=== PATIENT | female | born 1990 | race Caucasian/White ===

== ENCOUNTER 2023-03-04 10:47 | Outpatient (OUT) | payer MEDICAID, SELFPAY ==
--- NOTE | 2023-03-04 11:40 | XR_ITS ---
[address] [address] Patient Name: NITHYA SARKAR MRN: [id number] date: 1990 Sex: F Assigned Patient Location: [facility] Current Patient Location: [facility] Accession/Order Number: [id number] Exam Date: 03/04/2023 12:02 Report Date: 03/04/2023 12:18 At the request of: LIS HAY Procedure: XR chest 2V EXAM: XR chest 2V HISTORY: E CIG USE COMPARISON: 07/28/2021 TECHNIQUE: Upright PA and lateral chest x-ray FINDINGS: The heart is not enlarged and the vasculature is not distended. No acute infiltrate, effusion or pneumothorax is identified. The osseous structures are grossly intact. IMPRESSION: No acute infiltrate or evidence of cardiac decompensation. The overall appearance of the chest is essentially unchanged. Electronically authenticated by: DAGO SILVA Date: 03/04/2023 12:18
--- NOTE | 2023-03-04 11:47 | ECG_ITS ---
[facility] Test Date: 2023-03-04 Pat Name: NITHYA SARKAR Department: Room: - Gender: Female [employer]: : 1990 Requested By: LIS HAY Order Number: [id number] Reading MD: VIDAL CASE Measurements Intervals Albert Rate: 75 P: 39 FL: 132 QRS: 2 QRSD: 100 T: 13 QT: 372 QTc: 417 Interpretive Statements SINUS RHYTHM LOW QRS VOLTAGE IN PRECORDIAL LEADS [QRS DEFLECTION < 1.0 mV IN CHEST LEADS] No previous ECG available for comparison Electronically Signed On 03-05-2023 7:01:26 EDT by VIDAL CASE
== END 2023-03-04 10:48 | disposition home or self-care (01) ==
LOC: PST 10:47
PROVIDERS: PCP Family Medicine; Visit Provider Obstetrics & Gynecology
DX: Z01.810 Encounter for preprocedural cardiovascular examination (principal); Z01.811 Encounter for preprocedural respiratory examination; Z30.2 Encounter for sterilization; N92.1 Excessive and frequent menstruation with irregular cycle; N93.9 Abnormal uterine and vaginal bleeding, unspecified; R10.2 Pelvic and perineal pain; F17.290 Nicotine dependence, other tobacco product, uncomplicated
CPT/HCPCS: 71046; 93005

== ENCOUNTER 2023-03-12 09:39 | Day surgery (SDC) | payer MEDICAID, SELFPAY ==
[2023-03-04 11:11] VITALS: PULSE 91; TEMP 36.4; O2SAT 99; BMI 52.7
[2023-03-12] VITALS (10 sets, daily range): BP systolic 108–136; BP diastolic 67–81; PULSE 75–94; RESP 15–22; TEMP 36.1; O2SAT 97–100; BMI 52.3
[2023-03-12 10:24] LABS: Basophils Percent Auto 0.6 % (0.2-2.0); Eosinophils Absolute Auto 0.1 10^3/uL (0.0-0.7); Eosinophils Percent Auto 1.1 % (0.9-7.0); Hematocrit 49.1 % (36.0-48.0); Hemoglobin 16.1 g/dL (12.0-16.0); Immature Granulocytes Abs Auto 0.01 10^3/uL (0.00-0.03); Immature Granulocytes Pct Auto 0.2 % (0.0-0.5); Lymphocytes Absolute Auto 1.8 10^3/uL (1.2-3.8); Lymphocytes Percent Auto 37.3 % (20.5-60.0); Mean Corpuscular HGB Conc 32.8 g/dL (29.9-35.2); Mean Corpuscular Hemoglobin 31.3 pg (26.7-34.0); Mean Corpuscular Volume 95.5 fL (81.0-99.0); Mean Platelet Volume 10.5 fL (9.5-13.5); Monocytes Absolute Auto 0.4 10^3/uL (0.3-0.8); Neutrophils Absolute Auto 2.5 10^3/uL (1.4-6.5); Neutrophils Percent Auto 52.8 % (43.0-75.0); Platelet Count 152 10^3/uL (150-450); Red Blood Count 5.14 10^6/uL (4.20-5.40); Red Cell Distribution Width 12.6 % (11.0-15.0); White Blood Count 4.8 10^3/uL (4.0-11.0)
[2023-03-12] MEDS: LACTATED RINGER'S SOLUTION 1,000 ML 50 ML IV (10:30)
[2023-03-12 10:33] LABS: HCG Quantitative <1 mIU/mL
--- NOTE | 2023-03-12 13:10 | PM.ONB ---
Brief Operative Note Date of procedure: 03/12/23 Pre-op diagnosis: menorrhagia, dysmenorrhea, desires permanent sterilization Post-op diagnosis: same Procedure: PROCEDURE: Laparoscopic bilateral salpingectomy with Hilary endometrial ablation with hysteroscopy PROCEDURE: The patient was taken back to the OR where she was prepped and draped in the normal sterile fashion after being placed in the dorsal lithotomy position, after being placed under general anesthesia without difficulty. a weighted speculum was then placed into the vagina. The anterior lip was grasped with a single tooth tenaculum. The patient was then sounded to approximatley 9cm. The patient was gently sounded using Hegar dilators and the hysteroscope was passed through the cervix into the uterus where both ostia were seen. No gross evidence of polyps, fibroids or malignancy. The cervical length was noted to be 4cm. The Hilary ablation apparatus was set to approximately 5cm in length. This was placed in through the cervix and into the uterus. After the seal was tested, at that time the total ablation of 120 seconds was performed with the Hilary without difficulty. All instruments were removed from the vagina. A wet sponge stick was placed into the patient's vagina. Attention was then turned to the patient's abdomen, where a scalpel was used to make a small infraumbilical incision. The S retractors were then used to dissect the underlying layers until the fascia could be seen. The fascia was then grasped with Aubrie clamps and tented up. A knife was then used to make a small incision to the fascia. The muscle was identified, at that time two sutures of #0 Vicryl on a GI needlewas then used and placed through the fascia. The peritoneum was then identified and entered bluntly. The 10-4 Roseanne was then placed into the patient's abdomen. This was confirmed with direct visualization of the bowel, using the laparoscope. The patient's abdomen was then insufflated using approximately 4 liters of CO2 gas. Survey of the patient's abdomen demonstrated normal appearing ovaries, uterus and tubes. A second and third lateral ports, which was 7-8 in size and 5mm in size, was then placed laterally after incision was made in the skin under direct visualization. The patient's tube on the patient's right side was identified. The tube was then tented up using a grasper. The ligasure was used to transect and coagulate the mesosalpingx from the fibriated end to the insertion at the uterus, the tube was amputated and removed in its entirety.? Excellent hemostasis was noted. ?This was performed on the contralateral sideas well. The lateral ports were then moved under direct visualization withexcellent hemostasis. The abdomen was deinsufflated. All instruments were removed from the patient's abdomen. The fascia was closed using the #0 Vicryl on GI needle. The skin was closed using 4-0 Vicryl subcuticularly. All instruments were removed from the patient's vagina as well. The patient was taken out of the dorsal lithotomy position and placed in the supine position and taken to recovery in stable condition. Sponge, lap and needle counts were correct x2. ???please note embx was performed prior to ablation Anesthesia: ABNER Surgeon: Chay Castro [employer] Dealer: Helga Fang Estimated blood loss (mL): 5 Pathology: other (bilateral tubes) Condition: stable Disposition: PACU
[2023-03-12] MEDS: HYDROCODONE/ACETAMINOPHEN 5-325 MG TABLET 1 TAB PO (14:18)
[2023-03-12] MEDS: PROMETHAZINE HCL 25 MG/ML VIAL 12.5 MG IV (14:19)
--- NOTE | 2023-03-12 15:03 | PC.NURSE ---
REASSESED PAIN AFTER PAIN MEDICATION GIVEN CURRENTLY RATING PAIN A 4.
== END 2023-03-12 15:11 | disposition home or self-care (01) ==
PROVIDERS: PCP Family Medicine; Visit Provider Obstetrics & Gynecology
PROC: (CPT 840; principal; 2023-03-12 10:55)
PROC: (CPT 840; 2023-03-12 10:55)
DX: Z30.2 Encounter for sterilization (principal); N92.0 Excessive and frequent menstruation with regular cycle; N94.6 Dysmenorrhea, unspecified; N83.8 Other noninflammatory disorders of ovary, fallopian tube and broad ligament; E03.9 Hypothyroidism, unspecified; K21.9 Gastro-esophageal reflux disease without esophagitis; E66.01 Morbid (severe) obesity due to excess calories; Z68.42 Body mass index [BMI] 45.0-49.9, adult; F17.210 Nicotine dependence, cigarettes, uncomplicated
CPT/HCPCS: 58563; 58661; 36415; 84702; 85025; 88304; 88305; J2704

== ENCOUNTER 2023-06-25 12:37 | Outpatient (OUT) | payer MEDICAID, SELFPAY ==
--- NOTE | 2023-06-25 13:04 | P.CN_ITS ---
Consult Note: HPI Data of Consult Patient: known to practice within the last 3 years Requesting Physician: Suellen Armijo NP Primary Care Provider: Tez Zaragoza MD Consult Narrative Reason for consult: F/u Narrative: Azul Huertas a pleasant 32 year old female presents for evaluation and management of right leg pain. Describes it as pins/needles/throbbing. Intermittently swells and has sensitivity to touch, clothes are very irritating. Has noticed this pain developed after foot surgery. cc:: CC: Suellen Armijo NP Review of Systems ROS Status of ROS 10 or more systems reviewed and unremarkable except as noted in history and below Musculoskeletal Reports: back pain and extremity pain PFSH PFS Medical History Activity intolerance ?R68.89 - Other general symptoms and signs (ICD-10) Back pain ?M54.9 - Dorsalgia, unspecified (ICD-10) Constipation ?K59.00 - Constipation, unspecified (ICD-10) CRPS (complex regional pain syndrome), lower limb (2019) ?G90.529 - Complex regional pain syndrome I of unspecified lower limb (ICD- 10) Delayed recovery from anesthesia Dyspnea on exertion ?R06.09 - Other forms of dyspnea (ICD-10) Electronic cigarette use ?Z78.9 - Other specified health status (ICD-10) GERD (gastroesophageal reflux disease) ?K21.9 - Gastro-esophageal reflux disease without esophagitis (ICD-10) Hypothyroidism ?E03.9 - Hypothyroidism, unspecified (ICD-10) Migraine ?G43.909 - Migraine, unspecified, not intractable, without status migrainosus (ICD-10) Neuropathy ?G62.9 - Polyneuropathy, unspecified (ICD-10) PCOS (polycystic ovarian syndrome) ?E28.2 - Polycystic ovarian syndrome (ICD-10) Postoperative nausea and vomiting ?R11.2 - Nausea with vomiting, unspecified (ICD-10) ?Z98.890 - Other specified postprocedural states (ICD-10) Sleep apnea ?G47.30 - Sleep apnea, unspecified (ICD-10) Vertigo ?R42 - Dizziness and giddiness (ICD-10) Surgical History H/O LEEP ?Z98.890 - Other specified postprocedural states (ICD-10) History of esophagogastroduodenoscopy (EGD) ?Z98.890 - Other specified postprocedural states (ICD-10) History of foot surgery (2019) ?Z98.890 - Other specified postprocedural states (ICD-10) Family History Other Family history of COPD (chronic obstructive pulmonary disease) Family history of DVT Family history of diabetes mellitus Family history of heart disease Family history of hypertension Family history of myocardial infarction Family history of pulmonary embolism Family history of stroke Rectal adenocarcinoma Social History Within the past year, how often did you have a drink containing alcohol: never Score interpretation: A score less than 3 is consistent with normal alcohol c onsumption. Smoking status: Former smoker Do you use any of these nicotine containing products: vaping products Nicotine containing products detail: vaped for 4 years every day but quit 2020. Non-prescribed substance use: denies use Previous occupational history: unemployed Highest level of school completed/degree received: high school graduate Meds Home Medications and Allergies Home Medications Medication Instructions Recorded Confirmed Type Formula-DHA 03/04/23 History bupropion HCl 150 mg 24 hr tablet, 150 mg PO .qd 03/04/23 03/04/23 History extended release bupropion HCl 300 mg 24 hr tablet, 300 mg PO QDAY 03/04/23 03/04/23 History extended release calcium PO DAILY 03/04/23 History cholecalciferol (vitamin D3) 50 50 mcg PO QDAY 03/04/23 03/04/23 History mcg (2,000 unit) tablet chromium 03/04/23 History etonogestrel 68 mg subdermal subdermal 03/04/23 History implant (Nexplanon) hydroxyzine HCl 25 mg tablet 50 mg PO Q6H PRN nausea and 03/04/23 03/04/23 History vomiting levothyroxine 100 mcg tablet 100 mcg PO QDAY 03/04/23 03/04/23 History meclizine 25 mg tablet 25 mg PO QID PRN motion sickness 03/04/23 03/04/23 History megestrol 20 mg tablet 20 mg PO .COMPLEX 03/04/23 03/04/23 History ondansetron 4 mg disintegrating 4 mg PO Q6H PRN nausea and vomiting 03/04/23 03/04/23 History tablet pantoprazole 40 mg tablet,delayed 40 mg PO QDAY 03/04/23 03/04/23 History release potassium chloride 20 mEq 20 meq PO QDAY PRN unknown 03/04/23 03/04/23 History tablet,extended release sumatriptan succinate 25 mg tablet 25 mg PO Q2H PRN migraine headache 03/04/23 03/04/23 History topiramate 25 mg tablet 25 mg PO Q12H 03/04/23 03/04/23 History tramadol 50 mg tablet 50 mg PO QDAY PRN pain 03/04/23 03/04/23 History hydrocodone 5 mg-acetaminophen 325 1 tab PO Q4H PRN pain 4 days #16 03/12/23 Rx mg tablet tabs ibuprofen 800 mg tablet 800 mg PO Q8H PRN pain 14 days #40 03/12/23 Rx tabs Allergies Allergy/AdvReac Type Severity Reaction Status Date / Time povidone-iodine AdvReac Severe Rash Verified 03/04/23 11:08 [From [employer] Povidone Iodine] vicadon Allergy Severe Nausea Uncoded 03/04/23 11:08 Exam Constitutional Documenting provider has reviewed patient's vital signs: yes Common normals: no apparent distress, oriented x3, healthy appearing, alert and well nourished General appearance: cooperative [facility] Common normals: normocephalic, hearing grossly normal bilaterally and moist oral mucous membranes Head and scalp: normocephalic Eye Common normals: PERRL Pupil: PERRL Neck & C-Spine Common normals: full ROM General: normal visual inspection Chest Common normals: inspection of chest normal Respiratory Common normals: normal respiratory effort, no retractions and no use of acc essory muscles Back & Pelvis Lumbar spine/lower back: pain with ROM Other: bilateral facet loading pain over L3-S1 Extremity Other: edema to RLE, decreased sensation, hyperalgesia, reddened appearance, chronic neuropathy. Neuro Common normals: oriented x3, CN's II-XII intact bilaterally, moves all extremities, no focal motor deficits, no sensory deficits noted and deep tendon reflexes 2+ bilaterally Sensorium/orientation: alert Motor exam: strength 5/5 throughout and no movement abnormalities noted Psych Common normals: mental status grossly normal, thought process normal, cooperative, affect normal, speech normal and activity/motor behavior normal Speech: normal speech Thought process: normal thought process Results Additional Findings Additional findings: I have checked an OARRS report on this patient today and there are no aberrancies noted in the prescribing history.?? A drug screen was completed and reviewed within the last year, and if there has not been a drug screen completed we ordered one today to monitor higher risk, state monitored pain medication use. As part of providing excellent, safe, comprehensive care, the following was completed at our patient's visit: 1. A medication reconciliation and review to ensure accurate knowledge of current/active medications, including asking our patients to inform us about any [id number] medications or herbal remedies/nutritional supplements/alternative remedies. 2. A review to specifically ensure our patients have had annual screening for: elevated body mass index (BMI), tobacco use, screening for depression, and screening for unhealthy alcohol use. When screening is concerning, patients are provided with education and the specific recommendation to discuss the concerning health issue and treatment options with their primary care provider. Assessment and Plan Assessment and Plan (1) Complex regional pain syndrome type 2 of right lower extremity: Assessment and Plan: Patient continues to have moderate to severe pain in right lower extremity post surgery, hyperalgesia, neuropathy, intermittent color change and swelling (2) Right foot pain: (3) Neuropathy: Plan -transdermal therapeutics cream #6 TID-QID right foot -continue wellbutrin and topamax -EMG & NCV of right lower extremity -lumbosacral xray with flexion and extension -f/u 6 weeks
== END 2023-06-25 12:38 | disposition home or self-care (01) ==
LOC: PM 12:42
PROVIDERS: PCP Family Medicine; Visit Provider Nurse Practitioner
DX: M79.661 Pain in right lower leg (principal); M25.571 Pain in right ankle and joints of right foot; G62.9 Polyneuropathy, unspecified
CPT/HCPCS: G0463

== ENCOUNTER 2023-06-26 12:28 | Outpatient (OUT) | payer MEDICAID, SELFPAY ==
--- NOTE | 2023-06-26 13:05 | XR_ITS ---
[facility] [place] [id number] Patient Name: NITHYA SARKAR MRN: [id number] date: 1990 Sex: F Assigned Patient Location: [facility] Current Patient Location: [facility] Accession/Order Number: [id number] Exam Date: 06/26/2023 12:58 Report Date: 06/26/2023 13:22 At the request of: SHELDON KATHLEEN Procedure: XR lumbar spine 6V w bending EXAMINATION: XR lumbar spine 6V w bending HISTORY: lumbar spondylosis COMPARISON: No relevant comparison available. FINDINGS: BONES: Normal. No significant spondylosis, scoliosis, fracture, or visible bony lesion. DISC SPACES: Normal. No significant disc height narrowing, subluxation, or endplate abnormality. PARASPINOUS: Negative. No paraspinous abnormality is seen. OTHER: No transient spondylolisthesis with flexion or extension. XR/XR lumbar spine 6V w bending IMPRESSION: Normal exam with no dynamic instability Electronically authenticated by: JENNY BLANCA Date: 06/26/2023 13:22
== END 2023-06-26 12:29 | disposition home or self-care (01) ==
LOC: RAD 12:29
PROVIDERS: PCP Family Medicine; Visit Provider Nurse Practitioner
DX: M47.896 Other spondylosis, lumbar region (principal)
CPT/HCPCS: 72114

== ENCOUNTER 2023-07-23 08:00 | Outpatient (RCR) | payer MEDICAID, SELFPAY | END 2023-07-24 15:05 | disposition home or self-care (01) | LOC: PT 08:00 | PROVIDERS: PCP Family Medicine; Visit Provider Family Medicine | DX: G90.529 Complex regional pain syndrome I of unspecified lower limb (principal); R60.0 Localized edema; G43.109 Migraine with aura, not intractable, without status migrainosus | CPT/HCPCS: 97750 ==

== ENCOUNTER 2023-08-21 10:18 | Outpatient (OUT) | payer MEDICAID, SELFPAY ==
--- NOTE | 2023-08-21 10:57 | PM.CN ---
Consult Note: HPI Data of Consult Patient: known to practice within the last 3 years Requesting Physician: Suellen Armijo NP Primary Care Provider: Tez Zaragoza MD Consult Narrative Reason for consult: F/u Narrative: Azul Huertas a pleasant 32 year old female presents for evaluation and management of right leg pain. Describes it as pins/needles/throbbing. Intermittently swells and has sensitivity to touch, clothes are very irritating. Has noticed this pain developed after foot surgery. At this time, she is noticing mild benefit from transdermal therapeutic cream. She continues to have pain and weakness to bilateral leg weakness. Negative imaging of lumbar spine and EMG since last appointment. cc:: CC: Suellen Armijo NP Review of Systems ROS Status of ROS 10 or more systems reviewed and unremarkable except as noted in history and below Musculoskeletal Reports: back pain and extremity pain PFSH [facility] Medical History Activity intolerance ?R68.89 - Other general symptoms and signs (ICD-10) Back pain ?M54.9 - Dorsalgia, unspecified (ICD-10) Constipation ?K59.00 - Constipation, unspecified (ICD-10) CRPS (complex regional pain syndrome), lower limb (2019) ?G90.529 - Complex regional pain syndrome I of unspecified lower limb (ICD-10) Delayed recovery from anesthesia Dyspnea on exertion ?R06.09 - Other forms of dyspnea (ICD-10) Electronic cigarette use ?Z78.9 - Other specified health status (ICD-10) GERD (gastroesophageal reflux disease) ?K21.9 - Gastro-esophageal reflux disease without esophagitis (ICD-10) Hypothyroidism ?E03.9 - Hypothyroidism, unspecified (ICD-10) Migraine ?G43.909 - Migraine, unspecified, not intractable, without status migrainosus (ICD-10) Neuropathy ?G62.9 - Polyneuropathy, unspecified (ICD-10) PCOS (polycystic ovarian syndrome) ?E28.2 - Polycystic ovarian syndrome (ICD-10) Postoperative nausea and vomiting ?R11.2 - Nausea with vomiting, unspecified (ICD-10) ?Z98.890 - Other specified postprocedural states (ICD-10) Sleep apnea ?G47.30 - Sleep apnea, unspecified (ICD-10) Vertigo ?R42 - Dizziness and giddiness (ICD-10) Surgical History History of esophagogastroduodenoscopy (EGD) ?Z98.890 - Other specified postprocedural states (ICD-10) History of foot surgery (2019) ?Z98.890 - Other specified postprocedural states (ICD-10) H/O LEEP ?Z98.890 - Other specified postprocedural states (ICD-10) Family History Other Family history of COPD (chronic obstructive pulmonary disease) Family history of DVT Family history of diabetes mellitus Family history of heart disease Family history of hypertension Family history of myocardial infarction Family history of pulmonary embolism Family history of stroke Rectal adenocarcinoma Social History Within the past year, how often did you have a drink containing alcohol: never Score interpretation: A score less than 3 is consistent with normal alcohol consumption. Smoking status: Former smoker Do you use any of these nicotine containing products: vaping products Nicotine containing products detail: vaped for 4 years every day but quit 2020. Non-prescribed substance use: denies use Previous occupational history: unemployed Highest level of school completed/degree received: high school graduate Meds Home Medications and Allergies Home Medications Medication Instructions Recorded Confirmed Type Formula-DHA 03/04/23 History bupropion HCl 150 mg 24 hr tablet, 150 mg PO .qd 03/04/23 03/04/23 History extended release bupropion HCl 300 mg 24 hr tablet, 300 mg PO QDAY 03/04/23 03/04/23 History extended release calcium PO DAILY 03/04/23 History cholecalciferol (vitamin D3) 50 50 mcg PO QDAY 03/04/23 03/04/23 History mcg (2,000 unit) tablet chromium 03/04/23 History etonogestrel 68 mg subdermal subdermal 03/04/23 History implant (Nexplanon) hydroxyzine HCl 25 mg tablet 50 mg PO Q6H PRN nausea and 03/04/23 03/04/23 History vomiting levothyroxine 100 mcg tablet 100 mcg PO QDAY 03/04/23 03/04/23 History meclizine 25 mg tablet 25 mg PO QID PRN motion sickness 03/04/23 03/04/23 History megestrol 20 mg tablet 20 mg PO .COMPLEX 03/04/23 03/04/23 History ondansetron 4 mg disintegrating 4 mg PO Q6H PRN nausea and vomiting 03/04/23 03/04/23 History tablet pantoprazole 40 mg tablet,delayed 40 mg PO QDAY 03/04/23 03/04/23 History release potassium chloride 20 mEq 20 meq PO QDAY PRN unknown 03/04/23 03/04/23 History tablet,extended release sumatriptan succinate 25 mg tablet 25 mg PO Q2H PRN migraine headache 03/04/23 03/04/23 History topiramate 25 mg tablet 25 mg PO Q12H 03/04/23 03/04/23 History tramadol 50 mg tablet 50 mg PO QDAY PRN pain 03/04/23 03/04/23 History hydrocodone 5 mg-acetaminophen 325 1 tab PO Q4H PRN pain 4 days #16 03/12/23 Rx mg tablet tabs ibuprofen 800 mg tablet 800 mg PO Q8H PRN pain 14 days #40 03/12/23 Rx tabs Allergies Allergy/AdvReac Type Severity Reaction Status Date / Time povidone-iodine AdvReac Severe Rash Verified 03/04/23 11:08 [From [employer] Povidone Iodine] vicadon Allergy Severe Nausea Uncoded 03/04/23 11:08 Exam Constitutional Documenting provider has reviewed patient's vital signs: yes Common normals: no apparent distress, oriented x3, healthy appearing, alert and well nourished General appearance: cooperative [facility] Common normals: normocephalic, hearing grossly normal bilaterally and moist oral mucous membranes Head and scalp: normocephalic Eye Common normals: PERRL Pupil: PERRL Neck & C-Spine Common normals: full ROM General: normal visual inspection Chest Common normals: inspection of chest normal Respiratory Common normals: normal respiratory effort, no retractions and no use of accessory muscles Back & Pelvis Lumbar spine/lower back: pain with ROM Other: bilateral facet loading pain over L3-S1 Extremity Other: edema to RLE, decreased sensation, hyperalgesia, reddened appearance, chronic neuropathy. Neuro Common normals: oriented x3, CN's II-XII intact bilaterally, moves all extremities, no focal motor deficits, no sensory deficits noted and deep tendon reflexes 2+ bilaterally Sensorium/orientation: alert Motor exam: strength 5/5 throughout and no movement abnormalities noted Psych Common normals: mental status grossly normal, thought process normal, cooperative, affect normal, speech normal and activity/motor behavior normal Speech: normal speech Thought process: normal thought process Assessment and Plan Assessment and Plan (1) Complex regional pain syndrome type 2 of right lower extremity: (2) Right foot pain: Plan start gabapentin 100mg HS, discussed risks vs benefits. caution increase with risks of polypharmacy and psych history continue topical cream discussed sympathetic nerve block, handout provided consider LDN for chronic pain in the future f/u 2 months
== END 2023-08-21 10:19 | disposition home or self-care (01) ==
LOC: PM 10:19
PROVIDERS: PCP Family Medicine; Visit Provider Nurse Practitioner
DX: G57.71 Causalgia of right lower limb (principal); M79.671 Pain in right foot
CPT/HCPCS: G0463

== ENCOUNTER 2023-09-19 10:02 | Outpatient (OUT) | payer MEDICAID, SELFPAY ==
--- OUTSIDE RECORDS SUMMARY | 2023-09-19 10:13 | XMS_ITS | CCD ---
Author Name Unknown Address [address] [place] [address] Organization [facility] Care Team Providers Care Material Control Specialist Name Role Phone ADAMOWICZ, LATASHA J Unavailable Unavailable SATNAMCHAY Unavailable Unavailable ADAMOWICZ, LATASHA J Unavailable Unavailable ADAMOWICZ, LATASHA J Unavailable Unavailable ADAMOWICZ, LATASHA J Unavailable Unavailable MINDY GARCIA Unavailable Unavailable FANNING, SHANT E Unavailable Unavailable ADAMOWICZ, LATASHA J Unavailable Unavailable ADAMOWICZ, LATASHA J Unavailable Unavailable ADAMOWICZ, LATASHA J Unavailable Unavailable FANNING, SHANT E Unavailable Unavailable ADAMOWICZ, LATASHA J Unavailable Unavailable Mayra Astorga Unavailable Thania Trevizo Unavailable SLOANE ., DR YONAS Tucker Admitting Unavailable ANTON ., DR YONAS Tucker Attending Unavailable NADERER, DR TEZ Whaley Primary Care Unavailable SATNAM ., DR HAYS Attending Unavailable SATNAM ., DR HAYS Admitting Unavailable NADERER, DR TEZ Whaley Primary Care Unavailable SATNAM ., DR HAYS Consulting Unavailable SATNAM ., DR HAYS Attending Unavailable SATNAM ., DR HAYS Admitting Unavailable NADERER, DR TEZ Whaley Primary Care Unavailable NADERER, DR TZE Whaley Primary Care Unavailable NADERER, DR TEZ Whaley Consulting Unavailable NADERER, DR TEZ Whaley Attending Unavailable NADERER, DR TEZ Whaley Admitting Unavailable SATNAM ., DR HAYS Attending Unavailable SATNAM ., DR HAYS Admitting Unavailable SATNAM ., DR HAYS Consulting Unavailable NADERER, DR TEZ Whaley Primary Care Unavailable SATNAM ., DR HAYS Attending Unavailable SATNAM ., DR HAYS Admitting Unavailable NADERER, DR TEZ Whaley Primary Care Unavailable SATNAM ., DR HAYS Consulting Unavailable ZIEBER, DR BING Seaman Consulting Unavailable SATNAM ., DR HAYS Attending Unavailable SATNAM ., DR HAYS Admitting Unavailable NADERER, DR TEZ Whaley Primary Care Unavailable SATNAM ., DR HAYS Consulting Unavailable MEGAN HINOJOSA Consulting Unavailable SATNAM ., DR HAYS Attending Unavailable SATNAM ., DR HAYS Admitting Unavailable NADERER, DR TEZ Whaley Primary Care Unavailable SATNAM ., DR HAYS Consulting Unavailable SATNAM ., DR HAYS Consulting Unavailable SATNAM ., DR HAYS Attending Unavailable SATNAM ., DR HAYS Admitting Unavailable NADERER, DR TEZ Whaley Primary Care Unavailable ANTON ., DR YONAS Tucker Admitting Unavailable ANTON ., DR YONAS Tucker Consulting Unavailable ANTON ., DR YONAS Tucker Attending Unavailable NADERER, DR TEZ Whaley Primary Care Unavailable ANTON ., DR YONAS Tucker Admitting Unavailable ANTON ., DR YONAS Tucker Attending Unavailable NADERER, DR TEZ Whaley Primary Care Unavailable NADERER, DR TEZ Whaley Consulting Unavailable ANTON ., DR YONAS Tucker Consulting Unavailable ANTON ., DR YONAS Tucker Admitting Unavailable ANTON ., DR YONAS Tucker Consulting Unavailable NADERER, DR TEZ Whaley Primary Care Unavailable ANTON ., DR YONAS Tucker Attending Unavailable NEIL LOPEZ Consulting Unavailable NADHORACER, TEZ Primary Care Physician [phone] Alexx Gupta Attending Unavailable Alexx Gupta Referring Unavailable MoAlexx vasquez Admitting Unavailable Glenn Gupta Attending Unavaila ble Mayra, Melissa A Referring Unavailable Glenn Gupta Admitting Unavaila ble Mayra, Melissa A Attending Unavailable NADTEZ NORMAN Referring Unavailable MoAlexx vasquez Attending Unavailable MouranyAlexx Attending Unavailable MouranyAlexx Attending Unavailable MouranyAlexx Attending Unavailable MouranyAlexx Attending Unavailable MouranyAlexx Attending Unavailable MoAlexx vasquez Referring Unavailable MouranAlexx tripathi Admitting Unavailable Mayra, Melissa A Referring Unavailable Mayra, Melissa A Admitting Unavailable Mayra, Melissa A Attending Unavailable TEZ ANGEL Admitting Unavailable SHEELAEREJurgen, TEZ Attending Unavailable SHEELAERETEZ Seaman Referring Unavailable Alexx Pena Attending Unavailable SATNAMCHAY Attending Unavailable NADERER, TEZ Attending Unavailable Allergies Allergy Classification Reported Allergen(s) Allergy Type Date of Onset Reaction(s) Facility (8 sources) Iodine; Translations: [IODINE] Drug Allergy 8 AOF, Hives [facility] Repository (16 sources) Acetaminophen / HYDROcodone; Translations: [Vicodin] Drug Allergy Unknown (qualifier value), Vomiting (disorder) [facility] Repository (8 sources) iodinated radiocontrast dyes; Translations: [iodinated radiocontrast agents] Drug allergy Unknown (qualifier value) [facility] [place] (7 sources) steri strips; Translations: [steri strips] Allergy to substance Itching (finding), Eruption of skin (disorder) [facility] Medications Current Medications Medication Drug Class(es) Dates Sig (Normalized) Sig (Original) acetaminophen 325 mg / oxyCODONE hydrochloride 5 mg oral tablet (4 sources) Opioid Agonist Start: 08-12-2023 Percocet 5 mg-325 mg oral tablet 1 tab(s), Oral, q6hr, 12 tab(s), Refill(s) 0, [id number], 157, cm, 08/11/23 13:28:00 EST, Height/Length Dosing, 132.9, kg, 08/11/23 13:28:00 EST, Weight Dosing Start Date: 08/12/23 Status: Ordered Start: 08-06-2023 End: 08-08-2023 Percocet 5 mg-325 mg oral ta blet 1 tab(s), Oral, q6hr as needed for pain, 10 tab(s), Refill(s) 0, [facility] #[id number], 157.8, cm, 07/26/23 10:03:00 EST, Height/Length Dosing, 129.2, kg, 07/26/23 10:03:00 EST, Weight Dosing Start Date: 08/06/23 Stop Date: 08/08/23 Status: Ordered amoxicillin 500 mg oral capsule (1 source) Penicillin-class Antibacterial Start: 09-14-2022 take 1 capsule by mouth every eight hours Amoxicillin 500 MG 1 capsule Orally three times a day for 10 day(s) Sep, Active 12 hr buPROPion hydrochloride 150 mg extended release oral tablet (20 sources) Aminoketone Start: 07-25-2023 take 1 tablet by mouth once daily buPROPion 150 mg ER Tab 150 mg = 1 tab(s), Oral, Daily, Refills(s) 0, Depression Start Date: 07/25/23 Status: Ordered Start: 07-07-2023 buPROPion 300 mg/24 hours ER Tab 30 EA, 0 Refill(s), TAKE 1 TABLET BY MOUTH DAILY, Refills(s) 0 Start Date: 07/07/23 Status: Ordered take 1 tablet by zoë th every twenty-four hours buPROPion HCl ER (XL) 150 MG 1 tablet in the morning Orally Once a day Active take 1 tablet by zoë th every twenty-four hours buPROPion HCl ER (XL) 300 MG 1 tablet in the morning Orally Once a day Active cetirizine hydrochloride 10 mg oral tablet (1 source) Histamine-1 Receptor Antagonist Start: 05-31-2022 take 1 tablet by mouth once daily Cetirizine HCl 10 MG 1 tablet Orally Once a day for 14 days May, Active cholecalciferol 0.05 mg oral capsule (2 sources) Vitamin D take 1 capsule by mouth every twenty-four hours Vitamin D3 50 MCG (2000 UT) 1 capsule Orally Once a day Active chromium picolinate 1 mg oral tablet (4 sources) Start: 07-08-2023 chromium picolinate 1000 mcg oral tablet Refills(s) 0 Start Date: 07/08/23 Status: Ordered docusate sodium 50 mg / sennosides, chcf 8.6 mg oral tablet (2 sources) take 1 tablet by mouth every twenty-four hours Senna S 8.6-50 MG 1 tablet in the evening as needed Orally Once a day Active Saniya-C - (2 sources) Saniya-C - as directed Orally Active etonogestrel 68 mg drug implant (2 sources) Progestin Nexplanon 68 MG as directed Subcutaneous Active fluticasone propionate 0.05 mg/actuat metered dose nasal spray (2 sources) Corticosteroid Start: 09-14-2022 take 2 spray(s) nasal route once daily Fluticasone Propionate 50 MCG/ACT 2 sprays Nasally Once a day for 14 day(s) Sep, Active Start: 05-31-2022 take 1 spray(s) nasa l route twice daily Flonase Allergy Relief 50 MCG/ACT 1 spray in each nostril Nasally Twice a day for 14 day(s) May, Active furosemide 40 mg oral tablet (14 sources) Loop Diuretic Start: 08-06-2021 take 1 tablet by mouth once daily as needed for edema Lasix 40 mg Tab 40 mg = 1 tab(s), Oral, Daily, PRN Edema, Refills(s) 0 Start Date: 08/06/21 Status: Ordered gabapentin 100 mg oral capsule (1 source) Anti-epileptic Agent Start: 09-17-2023 take 1 capsule by mouth once daily gabapentin 100 mg Cap 100 mg = 1 cap(s), Oral, Daily, Refills(s) 0 Start Date: 09/17/23 Status: Ordered levothyroxine sodium 0.1 mg oral tablet (15 sources) l-Thyroxine Start: 09-17-2023 take 1 tablet by mouth once daily levothyroxine 100 mcg (0.1 mg) Tab 100 mcg = 1 tab(s), Oral, Daily, Refills(s) 0 Start Date: 09/17/23 Status: Ordered Start: 08-06-2021 take 1 tablet by zoë th once daily Levoxyl 75 mcg (0.075 mg) oral tablet 75 mcg = 1 tab(s), Oral, Daily, Refills(s) 0, Thyroid Start Date: 08/06/21 Status: Ordered LORazepam 0.5 mg oral tablet (5 sources) Benzodiazepine Start: 08-06-2023 take 1 tablet by mouth once as needed for anxiety LORazepam 0.5 mg Tab 0.5 mg = 1 tab(s), Oral, Once, PRN as needed for anxiety Start Date: 08/06/23 Status: Ordered magnesium, chelated 100 mg oral tablet (8 sources) Start: 07-21-2023 take 1 tablet by mouth once daily magnesium amino acids chelate 100 mg oral tablet 100 mg = 1 tab(s), Oral, Daily, Refills(s) 0 Start Date: 07/21/23 Status: Ordered Start: 07-21-2023 take 1 tablet by zoë th three times daily magnesium amino acids chelate 100 mg oral tablet 100 mg = 1 tab(s), Oral, TID, Refills(s) 0 Start Date: 07/21/23 Status: Ordered meclizine hydrochloride 12.5 mg oral tablet (8 sources) Antiemetic Start: 07-21-2023 take 1 tablet by mouth three times daily as needed for dizziness meclizine 12.5 mg Tab 12.5 mg = 1 tab(s), Oral, TID, PRN Dizziness, Refills(s) 0 Start Date: 07/21/23 Status: Ordered meloxicam 15 mg oral tablet (2 sources) Nonsteroidal Anti-inflammatory Drug take 1 tablet by mouth every twenty-four hours Meloxicam 15 MG 1 tablet Orally Once a day Active ondansetron 4 mg oral tablet (14 sources) Serotonin-3 Receptor Antagonist Start: 08-10-2021 take 1 tablet by mouth every six hours as needed for nausea Zofran ODT 4 mg Tab 4 mg = 1 tab(s), Oral, q6hr, PRN Nausea/Vomiting, Refills(s) 0 Start Date: 08/10/21 Status: Ordered take 1 tablet by zoë th every eight hours as needed Ondansetron HCl 4 MG 1 tablet Orally wolf ry 8 hrs as needed Active pantoprazole 40 mg delayed release oral tablet (14 sources) Proton Pump Inhibitor Start: 08-10-2021 take 1 tablet by mouth once daily Protonix 40 mg Tab-DR 40 mg = 1 tab(s), Oral, Daily, # 90 tab(s), Refills(s) 1, Pharmacy: [id number], 152.4, cm, 08/10/21 14:17:00 EST, Height/Length Dosing, 128, kg, 08/10/21 14:17:00 EST, Weight Dosing Start Date: 08/10/21 Status: Ordered predniSONE 20 mg oral tablet (1 source) Start: 09-14-2022 take 1 tablet by mouth every twelve hours predniSONE 20 MG 1 tablet Orally 2 times a day for 5 day(s) Sep, Active Multi + DHA (4 sources) Start: 07-08-2023 Multi + DHA Refill(s) 0 Start Date: 07/08/23 Status: Ordered SUMAtriptan 25 mg oral tablet (11 sources) Serotonin-1b and Serotonin-1d Receptor Agonist Start: 07-07-2023 take 9 tablets by mouth every two hours SUMAtriptan 25 mg Tab 9 EA, 0 Refill(s), TAKE 1 TABLET BY MOUTH at onset OF headache may repeat in 2 (TWO) HOURS, Refills(s) 0 Start Date: 07/07/23 Status: Ordered traMADol hydrochloride 50 mg oral tablet (6 sources) Opioid Agonist Start: 08-10-2021 take 1 tablet by mouth every six hours as needed for pain tramadol 50 mg oral tablet 50 mg = 1 tab(s), Oral, q6hr, PRN for pain Start Date: 08/10/21 Status: Ordered Vitamin D3 (4 sources) Start: 07-08-2023 Vitamin D3 Chivo cium, magnesium and zinc., Refills(s) 0 Start Date: 07/08/23 Status: Ordered Vitamin D3 1999 intl units oral Tab (6 sources) Start: 08-06-2021 take 1 tablet by mouth once daily Vitamin D3 1999 intl units oral Tab = 1 tab(s), Oral, Daily Start Date: 08/06/21 Status: Ordered Completed/Discontinued Medications Medication Drug Class(es) Dates Sig (Normalized) Sig (Original) hydrOXYzine hydrochloride 50 mg oral tablet (13 sources) Antihistamine Start: 07-07-2023 hydrOXYzine hydrochloride 50 mg oral tablet 30 EA, 0 Refill(s), TAKE 1 TABLET BY MOUTH FOUR TIMES DAILY NEEDED, Refills(s) 0 Start Date: 07/07/23 Status: Ordered take 1 tablet by zoë th every twenty-four hours hydrOXYzine HCl 25 MG 1 tablet at bedtim e as needed Orally Once a day Active polyethylene glycol 3350 924841 mg / potassium chloride 1480 mg / sodium bicarbonate 5720 mg / sodium chloride 04839 mg powder for oral solution (10 sources) Osmotic Laxative Start: 07-08-2023 NuLYTELY Quach oral powder for reconstitution See Instructions, 1 EA, Refill(s) 0, Prior to colonoscopy., [facility] #37, 157.5, cm, 07/08/23 14:03:00 EDT, Height/Length Dosing, 129.5, kg, 07/08/23 14:03:00 EDT, Weight Dosing Start Date: 07/08/23 Status: Ordered potassium chloride 20 meq extended release oral tablet (14 sources) Start: 08-06-2021 take 1 tablet by mouth once daily as needed for edema potassium chloride 20 mEq ER Tab 20 mEq = 1 tab(s), Oral, Daily, PRN Edema, Refills(s) 0 Start Date: 08/06/21 Status: Ordered sucralfate 100 mg/ml oral suspension (4 sources) Aluminum Complex Start: 07-07-2023 sucralfate 1 g/10 mL Oral Susp 10 mL 280 mL, 0 Refill(s), Take 10 ml (2 teaspoonfuls) 4 times daily for 7 days, Refills(s) 0 Start Date: 07/07/23 Status: Ordered Start: 06-23-2023 End: 06-30-2023 take 1 g by mouth four times daily Carafate 1 g/10 mL Susp-Oral 1 gram = 10 mL, Oral, QID, X 7 day(s), # 280 mL, Refills(s) 0 Start Date: 06/23/23 Stop Date: 06/30/23 Status: Ordered topiramate 50 mg oral tablet (11 sources) Start: 07-07-2023 topiramate 50 mg Tab 60 EA, 0 Refill(s), TAKE 1 TABLET BY MOUTH TWICE DAILY, Refills(s) 0 Start Date: 07/07/23 Status: Ordered Vitamin D3 2000 intl units o ral tablet (11 sources) Start: 07-07-2023 Vitamin D3 200 0 intl units oral tablet 30 EA, 0 Refill(s), TAKE 1 TABLET BY MOUTH DAILY, Refills(s) 0 Start Date: 07/07/23 Status: Ordered Problems Active Problems Problem Classification Problem Date Documented Da te Episodic/Chronic Abdominal pain (20 sources) Pelvic and perineal pain; Translations: [Epigastric pain] Onset: 3 Episodic Anxiety disorders (12 sources) Anxiety 08-06-2021 Chronic Biliary tract disease (15 sources) Biliary calculus; Translations: [Cholelithiasis without obstruction] Onset: 3 08-12-2021 Episodic Cancer of cervix (12 sources) High grade squamous intraepithelial lesion on cervical Papanicolaou smear 08-06-2021 Episodic Deficiency and other anemia (12 sources) Anemia 08-06-2021 Episodic Diabetes mellitus without complication (12 sources) Prediabetes 08-06-2021 Episodic Esophageal disorders (12 sources) Gastroesophageal reflux disease 08-10-2021 Chronic Gastritis and duodenitis (1 source) Gastritis; Translations: [Gastritis, unspecified, without bleeding] Onset: 3 Episodic Gastrointestinal hemorrhage (11 sources) Hemorrhage of rectum and anus; Translations: [Hemorrhage of anus and rectum] Onset: 3 Episodic Headache; including migraine (6 sources) Migraine 07-25-2023 Chronic Immunizations and screening for infectious disease (7 sources) Contact with and (suspected) exposure to other viral communicable diseases; Translations: [Encounter for screening for human papillomavirus (HPV)] Onset: 2 Episodic Menstrual disorders (1 source) Excessive and frequent menstruation with regular cycle; Translations: [EXCESS FREQ MENSTRUATION W/REG CYCL] Onset: 3 Chronic Mood disorders (6 sources) Major depressive disorder 07-25-2023 Chronic Nausea and vomiting (11 sources) Nausea; Translations: [Nausea] Onset: 3 Episodic Nutritional deficiencies (13 sources) Vitamin D deficiency, unspecified; Translations: [Vitamin D deficiency] Onset: 3 08-06-2021 Chronic Other connective tissue disease (5 sources) Pain in right foot; Translations: [PAIN IN RIGHT FOOT] Onset: 2 Episodic Other diseases of veins and lymphatics (1 source) Lymphedema, not elsewhere classified; Translations: [LYMPHEDEMA NOT ELSEWHERE CLASSIFIED] Onset: 2 Chronic Other endocrine disorders (12 sources) Polycystic ovary syndrome 08-06-2021 Chronic Other gastrointestinal disorders (1 source) Digestive system finding; Translations: [Other specified symptoms and signs involving the digestive system and abdomen] Onset: 3 Episodic Other gastrointestinal disorders (10 sources) Irregular bowel habits 07-08-2023 Episodic Other nervous system disorders (4 sources) Other specified mononeuropathies of right lower limb; Translations: [OTH SPEC MONONEUROPATH RT LOW LIMB] Onset: 2 Chronic Other nervous system disorders (1 source) Other specified mononeuropathies; Translations: [OTHER SPECIFIED MONONEUROPATHIES] Onset: 2 Chronic Other nervous system disorders (12 sources) 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 Other nutritional; endocrine; and metabolic disorders (1 source) Obesity, unspecified; Translations: [OBESITY UNSPECIFIED] Onset: 2 Chronic Other nutritional; endocrine; and metabolic disorders (13 sources) Body mass index 40+ - severely obese; Translations: [Body mass index (BMI) 50.0-59.9, adult] Onset: 3 08-10-2021 Chronic Other nutritional; endocrine; and metabolic disorders (12 sources) Morbid obesity 08-06-2021 Chronic Other screening for suspected conditions (not mental disorders or infectious disease) (20 sources) Abnormal coagulation profile; Translations: [Abnormal results of thyroid function studies] Onset: Episodic Other upper respiratory infections (1 source) Acute sinusitis, unspecified Episodic Otitis media and related conditions (1 source) Other acute nonsuppurative otitis media, bilateral Episodic Substance-related disorders (12 sources) Smoker 06-23-2023 Chronic Comment on above: Added secondary to d ocumentation in Social History. Thyroid disorders (12 sources) Hypothyroidism 08-06-2021 Chronic Varicose veins of lower extremity (12 sources) Varicose veins of lower extremity 08-06-2021 Episodic Viral infection (12 sources) Genital warts 08-06-2021 Episodic Past or Other Problems Problem Classification Problem Date Documented Date Episodic/Chronic Other connective tissue disease (4 sources) Other muscle spasm; Translations: [OTHER MUSCLE SPASM] Onset: 06-04-2022 Episodic Other connective tissue disease (1 source) Myalgia, unspecified site; Translations: [MYALGIA UNSPECIFIED SITE] Onset: 06-07-2022 Episodic Other female genital disorders (5 sources) Other specified noninflammatory disorders of vagina; Translations: [OTH SPEC NONINFLAMMATORY D/O VAGINA] Onset: 04-12-2022 Episodic Other skin disorders (1 source) Scar conditions and fibrosis of skin; Translations: [SCAR CONDITIONS AND FIBROSIS SKIN] Onset: 07-27-2022 Episodic Residual codes; unclassified (1 source) Other specified postprocedural states; Translations: [OTH SPECIFIED POSTPROCEDURAL STATES] Onset: 06-07-2022 Episodic Results Test Name Value Interpretation Reference Range Facility Insurance Correspondenceon 1 10-23-2022 Insurance Correspondence [id number] [facility] Auth for Release of Medical Recordson 08-20-2023 Auth for Release of Medical Records [id number] Eli Paul [facility] Ambulatory Visit Summaryon 1 10-16-2022 Ambulatory Visit Summary AZUL ONTIVEROS :1990 Visit Date:08/15/2023 Ambulatory Visit Instructions Your Care Team Attending Physician - Alonso SOTELO, Alexx Dowling Primary Care Physician - TEZ ANGEL MD This Is Your Medications List acetaminophen-oxycodone (Percocet 5 mg-325 mg oral tablet) buPROPion (buPROPion 150 mg ER Tab) buPROPion (buPROPion 300 mg/24 hours ER Tab) cholecalciferol (Vitamin D3 2000 intl units oral tablet) furosemide (Lasix 40 mg Tab) hydrOXYzine (hydrOXYzine hydrochloride 50 mg oral tablet) levothyroxine (Levoxyl 75 mcg (0.075 mg) oral tablet) lorazepam (LORazepam 0.5 mg Tab) magnesium amino acids chelate (magnesium amino acids chelate 100 mg oral tablet) meclizine (meclizine 12.5 mg Tab) ondansetron (Zofran ODT 4 mg Tab) pantoprazole (Protonix 40 mg Tab-DR) polyethylene glycol 3350 with electrolytes (NuLYTELY Quach oral powder for reconstitution) potassium chloride (potassium chloride 20 mEq ER Tab) sumatriptan (SUMAtriptan 25 mg Tab) topiramate (topiramate 50 mg Tab) Procedures Performed Laparoscopic cholecystectomy using robotic assistance (08/06/2023), Colposcopy, History of tubal ligation, Laparoscopy, LEEP, Plantar fasciotomy. Discharge Vitals Heart Rate (Peripheral) 92 Respiratory Rate 16 Blood Pressure 119/76 What to do next Scheduled Follow-Up Appointments Friday 3:45 PM EST With: Candy SOTELO, Glenn Holbrook Where: [facility] Medications What How Much When Why Instructions Unchanged acetaminophen-oxycodone (Percocet 5 mg-325 mg oral tablet) 1 Tablets By Mouth Every 6 hours Cholelithiasis Unchanged buPROPion (buPROPion 150 mg ER Tab) 1 Tablets By Mouth Every day Unchanged buPROPion (buPROPion 300 mg/ 24 hours ER Tab) 30 EA, 0 Refill(s), TAKE 1 TABLET BY MOUTH DAILY Unchanged cholecalciferol (Vitamin D3 2000 intl units oral tablet) 30 EA, 0 Refill(s), TAKE 1 TABLET BY MOUTH DAILY Unchanged furosemide (Lasix 40 mg Tab) 1 Tablets By Mouth Every day as needed for Edema Unchanged hydrOXYzine (hydrOXYzine hydrochloride 50 mg oral tablet) 30 EA, 0 Refill(s), TAKE 1 TABLET BY MOUTH FOUR TIMES DAILY NEEDED Unchanged levothyroxine (Levoxyl 75 mcg (0.075 mg) oral tablet) 1 Tablets By Mouth Every day Unchanged lorazepam (LORazepam 0.5 mg Tab) 1 Tablets By Mouth Once as needed for as needed for anxiety Unchanged magnesium amino acids chelate (magnesium amino acids chelate 100 mg oral tablet) 1 Tablets By Mouth Every day Unchanged meclizine (meclizine 12.5 mg Tab) 1 Tablets By Mouth 3 times a day as needed for Dizziness Unchanged ondansetron (Zofran ODT 4 mg Tab) 1 Tablets By Mouth Every 6 hours as needed for Nausea/Vomiting Unchanged pantoprazole (Protonix 40 mg Tab-DR) 1 Tablets By Mouth Every day Chronic GERD Epigastric pain Unchanged polyethylene glycol 3350 with electrolytes (NuLYTELY Quach oral powder for reconstitution) See instructions Prior to colonoscopy. Unchanged potassium chloride (potassium chloride 20 mEq ER Tab) 1 Tablets By Mouth Every day as needed for Edema Unchanged sumatriptan (SUMAtriptan 25 mg Tab) 9 EA, 0 Refill(s), TAKE 1 TABLET BY MOUTH at onset OF headache may repeat in 2 (TWO) HOURS Unchanged topiramate (topiramate 50 mg Tab) 60 EA, 0 Refill(s), TAKE 1 TABLET BY MOUTH TWICE DAILY Allergies Vicodin (Vomiting) iodine (Hives) steri strips (Itching, Rash) Problems Ongoing - Any problem that you are currently receiving treatment for. 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 Please share your experience with us by completing your survey. We appreciate your feedback and thank you for choosing us for your care. Eli Paul [facility] General Surgery Office/Clini c Noteon 08-15-2023 General Surgery Office/Clinic Note Chief Complaint s/p HPI Staff Azul is a 33 y.o. female here for s/p cholecystectomy done 08/07/2023 History of Present Illness Azul Allen is a 33-year-old female status post robotic cholecystectomy. The patient was seen on 08/11/2023, with abdominal pain following the surgery. She says the pain is slightly improved, only hurting her in the morning and at night when I see her today. Review of Systems PHQ Score Initial Depression Screen Score: 0 SCORE Constitutional: No fever, no sweats, no weight loss. Eyes: No glasses, no blurred vision, no visual loss. ENMT: No dentures, no hoarseness, no swallowing difficulties, no hearing loss, no ear infection (s), no nose bleeds. Cardiovascular: Normal blood pressure, no chest pain, regular heartbeat, no heart murmur. Respiratory: No cough, no wheezing, no asthma. Gastrointestinal: No nausea, no vomiting, no constipation, no change in bowel habits, no abdominal pain, no hepatitis. Genitourinary: No kidney stones, no urine infection, no difficulty passing urine. Musculoskeletal: No pain, no weakness. Skin: No changing moles, no rash, no skin lumps. Neurologic: No seizures, no epilepsy, no headache. Psychiatric: No emotional, no psychiatric problem. Endocrine: No thyroid, no diabetes. Heme/Lymph: No bleeding problems, no anemia, no blood clots, no transfusions. Allergy/Immunologic: No swollen lymph nodes/glands, no IV drug abuse. Other: Additional ROS info: Except as noted in the above Review of Systems and in the History of Present Illness, all other systems have been reviewed and are negative or noncontributory. Physical Exam Vitals & Measurements HR: 92(Peripheral) RR: 16 BP: 119/76 General: No acute distress Respiratory: Unlabored breathing on room air Cardiac: Regular rate and rhythm Abdomen: Soft, mildly tender in the right upper quadrant, though appropriately so, and nondistended. Her incisions are clean, dry, intact, and have healed well with no sign of infection. Assessment/Plan 1. Cholelithiasis (K80.20: Calculus of gallbladder without cholecystitis without obstruction) The patient will follow up with us as needed and to return to activity as tolerated. Portions of this record may have been created with voice recognition artificial intelligence software, specifically tvCompass, [employer] and or [employer] management. Substitutions may have occurred voice recognition and artificial intelligence software. Documentation services were performed after patient or guardian consented to allow [employer] to record this visit. JOANN specialist field engineer and provider reviewed before signing. 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 Medications buPROPion 150 mg ER Tab, 150 mg= 1 tab(s), Oral, Daily buPROPion 300 mg/24 hours ER Tab hydrOXYzine hydrochloride 50 mg oral tablet Lasix 40 mg Tab, 40 mg= 1 tab(s), Oral, Daily, PRN Levoxyl 75 mcg (0.075 mg) oral tablet, 75 mcg= 1 tab(s), Oral, Daily LORazepam 0.5 mg Tab, 0.5 mg= 1 tab(s), Oral, Once, PRN magnesium amino acids chelate 100 mg oral tablet, 100 mg= 1 tab(s), Oral, Daily meclizine 12.5 mg Tab, 12.5 mg= 1 tab(s), Oral, TID, PRN NuLYTELY Quach oral powder for reconstitution, See Instructions Percocet 5 mg-325 mg oral tablet, 1 tab(s), Oral, q6hr potassium chloride 20 mEq ER Tab, 20 mEq= 1 tab(s), Oral, Daily, PRN Protonix 40 mg Tab-DR, 40 mg= 1 tab(s), Oral, Daily, 1 refills SUMAtriptan 25 mg Tab topiramate 50 mg Tab Vitamin D3 2000 intl units oral tablet Zofran ODT 4 mg Tab, 4 mg= 1 tab(s), Oral, q6hr, PRN Allergies Vicodin (Vomiting) iodine (Hives) steri strips (Itching, Rash) Social History Alcohol - Denies Alcohol Use, 08/10/2021 Substance Abuse - Denies Substance Abuse, 08/10/2021 Tobacco Never (less than 100 in lifetime), Smoker, current status unknown Tobacco Use:. Smokeless tobacco user within last 30 days, Former vaping or e-cigarette use Smokeless Tobacco Use:. Vaping, Started age 26.0 Years., 08/15/2023 Cigarettes, 07/25/2023 Family History Cervical cancer: Mother. Depression: Father and Brother. Hypertensio (more content not included)... Normal [facility] Comment on above: Result Comment: Elec tronically Signed By: Alexx Gupta MD\.br\Date and Time Signed: 08/15/23 10:55 EST\.br\Electronically Co-Signed By: Rosalva Sánchez\.br\Date and Time Co-Signed: 08/15/23 10:08 EST General Surgery Office/Clinic Note Chief Complaint s/p cholecystectomy HPI Staff Azul is a 33 y.o. female here for s/p cholecystectomy post op pain cholecystectomy done 08/06/2023 Patient phoned office stating she had sever RLQ pain with nausea starting 3 days after surgery She finished the [place] yesterday and states the pain is unbearable She states she's added Motrin 800 mg every 12 hours and Tylenol 400 mg every 6 hours History of Present Illness Azul Llanos Redporsche is a 33-year-old female status post robotic cholecystectomy for symptomatic cholelithiasis. She woke up with right upper quadrant pain this morning. She was referred back to our clinic by us for further evaluation. She has finished all of her pain medications. She states the pain will sometimes wrap around to her shoulder. The patient states that she has been tolerating a regular diet and that she is passing gas and having bowel movements without difficulty. She does report some occasional heartburn and has gradually increased her activity until the pain began to trouble her on 08/09/2023. Review of Systems Constitutional: No fever, no sweats, no weight loss. Eyes: No glasses, no blurred vision, no visual loss. ENMT: No dentures, no hoarseness, no swallowing difficulties, no hearing loss, no ear infection (s), no nose bleeds. Cardiovascular: Normal blood pressure, no chest pain, regular heartbeat, no heart murmur. Respiratory: No cough, no wheezing, no asthma. Gastrointestinal: No nausea, no vomiting, no constipation, no change in bowel habits, no abdominal pain, no hepatitis. Genitourinary: No kidney stones, no urine infection, no difficulty passing urine. Musculoskeletal: No pain, no weakness. Skin: No changing moles, no rash, no skin lumps. Neurologic: No seizures, no epilepsy, no headache. Psychiatric: No emotional, no psychiatric problem. Endocrine: No thyroid, no diabetes. Heme/Lymph: No bleeding problems, no anemia, no blood clots, no transfusions. Allergy/Immunologic: No swollen lymph nodes/glands, no IV drug abuse. Other: Additional ROS info: Except as noted in the above Review of Systems and in the History of Present Illness, all other systems have been reviewed and are negative or noncontributory. Physical Exam Vitals & Measurements T: 36.7 ?C(Oral) HR: 114(Peripheral) BP: 137/90 HT: 62 in HT: 157 cm WT: 132 kg WT: 290.4 lb BMI: 53.55 General: No acute distress Respiratory: Unlabored breathing on room air Cardiac: Regular rate and rhythm Abdomen: Soft, mildly tender to right upper quadrant palpation. The incisions are healing well. Assessment/Plan The patient is a 33-year-old female with postoperative pain, most likely following robotic cholecystectomy. 1. Cholelithiasis (K80.20: Calculus of gallbladder without cholecystitis without obstruction) We refilled the patient's pain medication. We will see her again on 08/15/2023, for close interval follow-up. Should her pain worsen or should she begin to develop fever or chills, she is to report to the emergency room for further evaluation and call us immediately. Portions of this record may have been created with voice recognition artificial intelligence software, specifically [employer]ass, [employer] and or [employer] management. Substitutions may have occurred voice recognition and artificial intelligence software. Documentation services were performed after patient or guardian consented to allow [employer] to record this visit. JONAN specialist field engineer and provider reviewed before signing. 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 Medications buPROPion 150 mg ER Tab, 150 mg= 1 tab(s), Oral, Daily buPROPion 300 mg/24 hours ER Tab hydrOXYzine hydrochloride 50 mg oral tablet Lasix 40 mg Tab, 40 mg= 1 tab(s), Oral, Daily, PRN Levoxyl 75 mcg (0.075 mg) oral tablet, 75 mcg= 1 tab(s), Oral, Daily LORazepam 0.5 mg Tab, 0.5 mg= 1 tab(s), Oral, Once, PRN magnesium amino acids chelate 100 mg oral tablet, 100 mg= 1 tab(s), Oral, Daily meclizine 12.5 mg Tab, 12.5 mg= 1 tab(s), Oral, TID, PRN NuLYTELY Quach oral powder for reconstitution, See Instructions Percoce (more content not included)... Normal [facility] Comment on above: Result Comment: Elec tronically Signed By: Alonso SOTELO, Alexx Cain.br\Date and Time Signed: 08/15/23 10:54 EST\.br\Electronically Co-Signed By: Rosalva Sánchez.br\Date and Time Co-Signed: 08/12/23 12:58 EST Heart and Vascular Office/Cl inic Noteon 08-12-2023 Heart and Vascular Office/Clinic Note Chief Complaint here to establish care History of Present Illness Azul Allen is a 33-year-old female who presents today for a family history of CAD, personal history of gallbladder disease, thyroid disease, migraines, and lower extremity swelling. She recently underwent a cholecystectomy on 08/07/2023 and is currently in the recovery phase. The patient is scheduled for a double scope and is planning a partial hysterectomy in 09/2023 as recommended by [facility]. The decision to assess her cardiac status was prompted by her family history and recent events involving her father. The patient reports that her father experienced heart failure in his late 30s and from a heart attack at the age of 63. Although she denies chest pain, she acknowledges experiencing shortness of breath during strenuous physical activities. She mentions being able to walk on a treadmill. Review of Systems Constitutional: no fever, no sweats, no weakness Skin: no rash, no lesions, no bruising/petechiae ENMT: no sore throat, no congestion, no hoarseness Respiratory: Positive for shortness of breath, no cough, no orthopnea, no wheezing Cardiovascular: no chest pain, no palpitations, no edema Gastrointestinal: no nausea, no vomiting, no diarrhea, no GI bleeding, recent cholecystectomy with ongoing recovery. Genitourinary: no anuria/oliguria no hematuria Musculoskeletal: no back pain, no trauma Neurologic: no headache, no dizziness, no numbness, no weakness, history of migraines. Psychiatric: no sleeping problems, no irritability, no anxiety/depression. Heme/Lymph: no bleeding tendency, no bruising tendency Allergy/Immunologic: no recurrent infections, no impaired immunity Additional ROS info: Except as noted in the above Review of Systems and in the History of Present Illness all other systems have been reviewed and are negative or noncontributory Physical Exam Vitals & Measurements HR: 100(Peripheral) BP: 140/85 SpO2: 100% HT: 62 in HT: 157 cm WT: 132.9 kg WT: 292.38 lb BMI: 53.92 General: alert, no acute distress Skin: warm, dry intact Head: atraumatic, normocephalic Neck: trachea midline, no JVD, no bruit Eye: normal conjunctiva, sclera clear ENMT: oral mucosa moist Cardiovascular: regular rate and rhythm, no murmur, normal peripheral perfusion Respiratory: lungs CTA, respirations non labored Chest wall: no deformity. Gastrointestinal: soft, non-distended, no tenderness, no guarding. Back: no tenderness, normal ROM, normal alignment. Extremities: no edema, no deformity, no trauma Neurological: oriented x 4, LOC appropriate for age, sensation equal & normal bilaterally, speech normal Psychiatric: cooperative, affect appropriate for age, normal judgement, normal psychiatric thoughts. Assessment/Plan Azul Allen is a 33-year-old female with a family history of CAD, personal history of gallbladder disease, thyroid disease, migraines, and lower extremity swelling. She has some dyspnea with exertion. She was having some chest discomfort as well prior to gallbladder surgery, but that was 1 week ago. The nurse practitioner at had sent her over to be evaluated prior to having general anesthesia. EKG is abnormal for sinus rhythm and possible anterior IN, although I think it is probably not more likely as a lead issue. However, we will get her a stress echo to evaluate the shortness of breath and abnormal EKG. See her back for follow-up. Chest pain (R07.9: Chest pain, unspecified) Stress echo to evaluate Portions of this record may have been created with voice recognition artificial intelligence software, specifically [employer]ass, [employer] and or [employer] management. Substitutions may have occurred due to the inherent limitations of voice recognition and artificial intelligence software. Documentation services were performed after patient or guardian consented to allow [employer] to record this visit. JOANN specialist field engineer and provider reviewed before signing. 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 Medications buPROPion 150 mg ER Tab, 150 mg= 1 tab(s), Oral, Da (more content not included)... [facility] Comment on above: Result Comment: Elec tronically Signed By: Candy SOTELO, Glenn Holbrook\.br\Date and Time Signed: 08/12/23 13:43 EST\.br\Electronically Co-Signed By: Scott Frederick\.br\Date and Time Co-Signed: 08/11/23 17:25 EST Consent for Treatmenton Consent for Treatment [id number]#1.00TIFF [facility] IntraOperative Documentson 1 10-12-2022 IntraOperative Documents [id number]#1.00TIFF [facility] Physician Orderon 08-11-2023 Physician Order [id number]#1.00TIFF [facility] Consent for Anesthesiaon Consent for Anesthesia [id number]#1.00TIFF [facility] Discharge Instructionson Discharge Instructions [id number]#1.00TIFF [facility] IntraOperative Documentson 1 10-07-2022 IntraOperative Documents [id number]#1.00TIFF [facility] Main OR Intraoperative Recor don 08-07-2023 Main OR Intraoperative Record IntraOp Document Type FT Summary Primary Physician: Alexx Gupta MD Finalized Date/Time: 08/07/23 13:39:28 Pt. Name: AZUL ONTIVEROS D.O.B./Sex: 1990 Female Med Rec #: [id number] Physician: Alexx Gupta MD Financial #: [id number] Pt. Type: A Room/Bed: [place] [address] Admit/Disch: 08/06/23 05:51:08 - 08/06/23 11:20:00 Institution: Case Times FT Entry 1 Patient Times In Room 08/06/23 07:37:00 Out Room 08/06/23 09:24:00 Procedure Times Start 08/06/23 08:06:00 Stop 08/06/23 09:20:00 Anesthesia Times Start 08/06/23 07:37:00 Stop 08/06/23 09:24:00 Last Modified By: Natanael Graham RN 08/06/23 09:24:07 General Comments: 08/07/23 Chart opened to review and send charges [facility]oth CSFA Case Attendance FT Entry 1 Entry 2 Entry 3 Case Attendee Kin ANDRADE, Felicitas Gupta MD, Alexx Graham RN, Natanael Bateman Role Performed SMALL BUSINESS CONSULTANT Surgeon - Primary Hvac Manager - Primary Time In 08/06/23 07:37:00 08/06/23 07:37:00 08/06/23 07:37:00 Time Out 08/06/23 09:24:00 08/06/23 09:04:00 08/06/23 09:24:00 Procedure CHOLECYSTECOMY ROBOT CHOLECYSTECOMY ROBOT CHOLECYSTECOMY ROBOT ASSISTED(.) ASSISTED(.) ASSISTED(.) Comments , anesthesia inside sales supervisor Last Modified By: Julianne Clark CST, RN, Natanael Falk RN 08/07/23 13:36:33 08/06/23 09:24:08 08/06/23 09:24:08 Entry 4 Entry 5 Case Attendee Emmanuelle Wilks James W Role Performed Scrub - Primary CARD FILER/SA Time In 08/06/23 07:37:00 08/06/23 07:37:00 Time Out 08/06/23 09:24:00 08/06/23 09:24:00 Procedure CHOLECYSTECOMY ROBOT CHOLECYSTECOMY ROBOT ASSISTED(.) ASSISTED(.) Comments Last Modified By: Santos SETHI, Natanael Falk RN 08/06/23 09:24:08 08/06/23 09:24:08 Perioperative Protocols FT Pre-Care Text: Implements protective measures prior to operative or invasive procedure, confirms identity before the operative or invasive procedure, verifies operative procedure, surgical site, and laterality Entry 1 Procedure(s) CHOLECYSTECOMY ROBOT Patient Identity Birthday, ID Band ASSISTED(.) Verified (select at Check, Patient least 2): Participation Consents / H and P Anesthesia Consent, Operative Site N/A Verified HandP, Surgery/Procedure Marking Verified Consent Surgical Site Yes Laterality Verified n/a Verified Procedure Verified Yes Correct Patient Yes Position Verified Availability Equipment, Medication Prep Dry Yes Verified (If Applicable) PreOp Antibiotic Yes Time Out Felicitas Sanderson CRNA, Given Participants Alonso SOTELO, Alexx Dowling, Santos SETHI, Efe Bob Madison A, Boyer, James W Time Out Complete 08/06/23 08:03:00 Outcomes Met? Yes Last Modified By: Natanael Graham RN 08/06/23 08:03:54 Post-Care Text: The patient is free from signs and symptoms of injury caused by extraneous objects Allergy Information FT Pre-Care Text: Verifies allergies Entry 1 Allergies Reviewed? Yes Allergies Reviewed Self/Patient With Outcomes Met? Yes Last Modified By: Natanael Graham RN 08/06/23 07:20:03 Post-Care Text: The patient received appropriate medication(s) safely administered during the perioperative period Surgical Procedures FT Entry 1 Procedure Description Procedure CHOLECYSTECOMY ROBOT Modifiers . ASSISTED Surgeon Description ROBOT ASSISTED LAPAROSCOPIC CHOLECYSTECOMY Primary Procedure Yes Primary Surgeon Alexx Gupta MD Start 08/06/23 08:06:00 Stop 08/06/23 09:20:00 Anesthesia Type General Surgical Service General Wound Class 2 - Clean-Contaminated Last Modified By: Natanael Graham RN 08/06/23 09:29:14 General Case Data FT Pre-Care Text: Classifies surgical wound, implements aseptic technique, initiates traffic control Entry 1 Case Information OR OR 6 FT Case Level Level 5 Wound Class 2 - Clean-Contaminated Specialty General ASA Class 4 Preop Diagnosis CHOLELITHIASIS Postop Same As Preop Yes Postop Diagnosis CHOLELITHIASIS Outcomes Met? Yes Last Modified By: Natanael Graham RN 08/06/23 08:12:11 Post-Care Text: The patient is free from signs and symptoms of infection Skin Assessment (Pre Procedure) FT Pre-Care Text: Implements protective measures to prevent skin/ tissue injury due to thermal or mechanical sources Evaluates for signs and symptoms of physical injury to skin and tissue Entry 1 Skin Integrity Intact, [place], Warm, and Skin Abnormality No Dry Outcomes Met? Yes Last Modified By: Santos SETHI, Natanael Bateman 08/06/23 08:04:25 Post-Care Text: The patient is free from signs and symptoms of injury caused by extraneous objects Patient Positioning FT Pre-Care Text: Identifies physical alterations that require additional precautions for procedure-specific positioning, verifies presence of prosthetics or corrective devices, positions the patient, evaluates the patient for signs and symptoms of injury as a result of positioning Entry 1 Procedure CHOLECYSTECOMY ROBOT Body Position Supine (more content not included)... Normal [facility] Pre-Op Checkliston 3 Pre-Op Checklist [id number]#1.00TIFF [facility] CHEMISTRYOrdered By: Lab ROP User on 08-06-2023 Glucose [Mass/Vol] 92 mg/dL Normal 55 - 99 mg/dL [facility] POC Subsection Comment on above: Result Comment: [facility] [place] [facility] POC Username COURTNEY DONOVAN Invalid Interpretation Code [facility] POC Subsection Sodium [Moles/Vol] [id number] mmol/L Invalid Interpretation Code [facility] POC Subsection Sodium [Moles/Vol] [id number] mmol/L Invalid Interpretation Code [facility] POC Subsection Capillary Glucose POCon 07-10 Glucose [Mass/Vol] 92 mg/dL Normal 55-99 [facility] Comment on above: Result Comment: [place] Performed By: #### 2 [id number] ####[facility] [id number] [place] [address] Consent for Treatmenton 07-10 Consent for Treatment [id number]#1.00TIFF [facility] Discharge Instructionson Discharge Instructions AZUL ONTIVEROS :1990 Visit Date:08/06/2023 Inpatient Discharge Instructions Your Care Team Admitting Physician - Alexx Gupta MD Referring Physician - Alexx Gupta MD Reason for Your Visit CHOLELITHIASIS Your Diagnosis Cholelithiasis Tests Performed Capillary Glucose POC Pathology Tissue Exam -- Results Pending -- Please visit your patient portal for your results or contact your primary care physician. This Is Your Medications List acetaminophen-oxycodone (Percocet 5 mg-325 mg oral tablet) buPROPion (buPROPion 150 mg ER Tab) buPROPion (buPROPion 300 mg/24 hours ER Tab) cholecalciferol (Vitamin D3 2000 intl units oral tablet) furosemide (Lasix 40 mg Tab) hydrOXYzine (hydrOXYzine hydrochloride 50 mg oral tablet) levothyroxine (Levoxyl 75 mcg (0.075 mg) oral tablet) lorazepam (LORazepam 0.5 mg Tab) magnesium amino acids chelate (magnesium amino acids chelate 100 mg oral tablet) meclizine (meclizine 12.5 mg Tab) ondansetron (Zofran ODT 4 mg Tab) pantoprazole (Protonix 40 mg Tab-DR) polyethylene glycol 3350 with electrolytes (NuLYTELY Quach oral powder for reconstitution) potassium chloride (potassium chloride 20 mEq ER Tab) sumatriptan (SUMAtriptan 25 mg Tab) topiramate (topiramate 50 mg Tab) Procedure History Colposcopy, History of tubal ligation, Laparoscopy, LEEP, Plantar fasciotomy. What to do next Instructions From Your Doctor Event Name Event Result Discharge Instructions Freetext Okay to shower tomorrow do not submerge incisions underwater as in pool or tub for 2 weeks after surgery no heavy lifting pushing pulling greater than 35 pounds for 1 week after surgery Discharge Activity Resume normal activities in 24 hours, Expect mild pain, Expect minimal amount of drainage and/or bleeding Discharge Restrictions No driving for 24 hrs, Do not make important decisions for 24 hours, Do not drink alcoholic beverages for 24 hours Discharge Diet(s) Regular Call Your Doctor For Persistent or heavy bleeding, Temperature above 101.5 degrees, Redness, swelling, or pus at operative site, Severe pain at the operative site, Persistent vomiting Discharge Instructions Discharge Instructions Previously Scheduled Follow-Up Appointments Friday 1:30 PM EST With: Candy SOTELO, Glenn Holbrook Where: Cardiology Clinic Friday 9:20 AM EST With: Alexx Gupta MD Where: [facility] General Surgery [facility] Comment on above: Result Comment: Elec tronically Signed By: Thelma SETHI, Courtney Rodriguez\.min\Date and Time Signed: 08/06/23 09:56 EST Discharge Instructions AZUL ONTIVEROS :1990 Visit Date:08/06/2023 Inpatient Discharge Instructions Your Care Team Admitting Physician - Alexx Gupta MD Referring Physician - Alexx Gupta MD Reason for Your Visit CHOLELITHIASIS Your Diagnosis Cholelithiasis Tests Performed Capillary Glucose POC Pathology Tissue Exam -- Results Pending -- Please visit your patient portal for your results or contact your primary care physician. This Is Your Medications List acetaminophen-oxycodone (Percocet 5 mg-325 mg oral tablet) buPROPion (buPROPion 150 mg ER Tab) buPROPion (buPROPion 300 mg/24 hours ER Tab) cholecalciferol (Vitamin D3 2000 intl units oral tablet) furosemide (Lasix 40 mg Tab) hydrOXYzine (hydrOXYzine hydrochloride 50 mg oral tablet) levothyroxine (Levoxyl 75 mcg (0.075 mg) oral tablet) lorazepam (LORazepam 0.5 mg Tab) magnesium amino acids chelate (magnesium amino acids chelate 100 mg oral tablet) meclizine (meclizine 12.5 mg Tab) ondansetron (Zofran ODT 4 mg Tab) pantoprazole (Protonix 40 mg Tab-DR) polyethylene glycol 3350 with electrolytes (NuLYTELY [place] oral powder for reconstitution) potassium chloride (potassium chloride 20 mEq ER Tab) sumatriptan (SUMAtriptan 25 mg Tab) topiramate (topiramate 50 mg Tab) Procedure History Colposcopy, History of tubal ligation, Laparoscopy, LEEP, Plantar fasciotomy. Discharge Vitals Temperature (Axillary) 36.6 ?C Temperature (Axillary) 36.6 ?C Heart Rate (Monitored) 83 Respiratory Rate 20 Blood Pressure 125/88 What to do next Instructions From Your Doctor Event Name Event Result Discharge Instructions Freetext Okay to shower tomorrow do not submerge incisions underwater as in pool or tub for 2 weeks after surgery no heavy lifting pushing pulling greater than 35 pounds for 1 week after surgery Discharge Activity Resume normal activities in 24 hours, Expect mild pain, Expect minimal amount of drainage and/or bleeding Discharge Restrictions No driving for 24 hrs, Do not make important decisions for 24 hours, Do not drink alcoholic beverages for 24 hours Discharge Diet(s) Regular Call Your Doctor For Persistent or heavy bleeding, Temperature above 101.5 degrees, Redness, swelling, or pus at operative site, Severe pain at the operative site, Persistent vomiting Discharge Instructions Discharge Instructions Previously Scheduled Follow-Up Appointments Friday 1:30 PM EST With: Candy SOTELO, Glenn Holbrook Where: Cardiology Clinic Friday 9:20 AM EST With: Alexx Gupta MD Where: [facility] General Surgery [facility] Comment on above: Result Comment: Elec tronically Signed By: Thelma SETHI, Courtney Rodriguez\.br\Date and Time Signed: 08/15/23 06:03 EST Discharge Instructions AZUL ONTIVEROS Jennifer :1990 Visit Date:08/06/2023 Inpatient Discharge Instructions Your Care Team Admitting Physician - Alexx Gupta MD Referring Physician - Alexx Gupta MD Reason for Your Visit CHOLELITHIASIS Your Diagnosis Cholelithiasis Tests Performed Capillary Glucose POC Pathology Tissue Exam -- Results Pending -- Please visit your patient portal for your results or contact your primary care physician. This Is Your Medications List acetaminophen-oxycodone (Percocet 5 mg-325 mg oral tablet) buPROPion (buPROPion 150 mg ER Tab) buPROPion (buPROPion 300 mg/24 hours ER Tab) cholecalciferol (Vitamin D3 2000 intl units oral tablet) furosemide (Lasix 40 mg Tab) hydrOXYzine (hydrOXYzine hydrochloride 50 mg oral tablet) levothyroxine (Levoxyl 75 mcg (0.075 mg) oral tablet) lorazepam (LORazepam 0.5 mg Tab) magnesium amino acids chelate (magnesium amino acids chelate 100 mg oral tablet) meclizine (meclizine 12.5 mg Tab) ondansetron (Zofran ODT 4 mg Tab) pantoprazole (Protonix 40 mg Tab-DR) polyethylene glycol 3350 with electrolytes (NuLYTELY Quach oral powder for reconstitution) potassium chloride (potassium chloride 20 mEq ER Tab) sumatriptan (SUMAtriptan 25 mg Tab) topiramate (topiramate 50 mg Tab) Procedure History Colposcopy, History of tubal ligation, Laparoscopy, LEEP, Plantar fasciotomy. Discharge Vitals Temperature (Axillary) 36.6 ?C Temperature (Axillary) 36.6 ?C Heart Rate (Monitored) 83 Respiratory Rate 20 Blood Pressure 125/88 What to do next Instructions From Your Doctor Event Name Event Result Discharge Instructions Freetext Okay to shower tomorrow do not submerge incisions underwater as in pool or tub for 2 weeks after surgery no heavy lifting pushing pulling greater than 35 pounds for 1 week after surgery Discharge Activity Resume normal activities in 24 hours, Expect mild pain, Expect minimal amount of drainage and/or bleeding Discharge Restrictions No driving for 24 hrs, Do not make important decisions for 24 hours, Do not drink alcoholic beverages for 24 hours Discharge Diet(s) Regular Call Your Doctor For Persistent or heavy bleeding, Temperature above 101.5 degrees, Redness, swelling, or pus at operative site, Severe pain at the operative site, Persistent vomiting Discharge Instructions Discharge Instructions Previously Scheduled Follow-Up Appointments Friday 1:30 PM EST With: Candy SOTELO, Glenn Holbrook Where: Cardiology Clinic Friday 9:20 AM EST With: Alonso SOTELO, Alexx Dowling Where: [facility] General Surgery [facility] Comment on above: Result Comment: Elec tronically Signed By: Thelma SETHI, Courtney Rodriguez\.br\Date and Time Signed: 08/15/23 06:03 EST Inpatient Patient Summaryon 08-06-2023 Inpatient Patient Summary [address] [address] [facility] Clinical Discharge Instructions PERSON INFORMATION Name: AZUL ONTIVEROS PHYSICIANS Admitting Physician: Alexx Gupta MD Attending Physician: Alexx Gupta MD PCP: TEZ ANGEL MD Discharge Diagnosis: Comment: PATIENT EDUCATION INFORMATION Instructions: Minimally Invasive Cholecystectomy, Care After Medication Leaflets: Follow up: With: Address: When: Alexx Marsh, Ram[address], [address] [address] [phone] Business (1) Comments: Appointment has already been scheduled Type Location Start [facility] Cardiology New Patient (FT) FT.Cardiology Clinic 08/11/2023 1:30 PM 08/11/2023 1:45 PM Confirmed GS Post Op 15 [facility] GS Le[place]on 08/15/2023 9:20 AM 08/15/2023 9:40 AM Confirmed MEDICATION LIST New Medications [facility] [address], [address] [place], [place] [id number], [phone] acetaminophen-oxycodone (Percocet 5 mg-325 mg oral tablet) 1 Tablets By Mouth every 6 hours as needed as needed for pain. Refills: 0. Medications to Continue with No Changes Other Medications buPROPion (buPROPion 150 mg ER Tab) 1 Tablets By Mouth every day., takes 150mg with the 300mg to total 450mg daily buPROPion (buPROPion 300 mg/24 hours ER Tab) 30 EA, 0 Refill(s), TAKE 1 TABLET BY MOUTH DAILY., Responsible Provider: Tez Angel cholecalciferol (Vitamin D3 2000 intl units oral tablet) 30 EA, 0 Refill(s), TAKE 1 TABLET BY MOUTH DAILY., Responsible Provider: Tez Angel furosemide (Lasix 40 mg Tab) 1 Tablets By Mouth every day as needed Edema. hydrOXYzine (hydrOXYzine hydrochloride 50 mg oral tablet) 30 EA, 0 Refill(s), TAKE 1 TABLET BY MOUTH FOUR TIMES DAILY NEEDED., Responsible Provider: Tez Angel MD levothyroxine (Levoxyl 75 mcg (0.075 mg) oral tablet) 1 Tablets By Mouth every day. lorazepam (LORazepam 0.5 mg Tab) 1 Tablets By Mouth Once as needed as needed for anxiety. magnesium amino acids chelate (magnesium amino acids chelate 100 mg oral tablet) 1 Tablets By Mouth every day. meclizine (meclizine 12.5 mg Tab) 1 Tablets By Mouth 3 times a day as needed Dizziness. ondansetron (Zofran ODT 4 mg Tab) 1 Tablets By Mouth every 6 hours as needed Nausea/Vomiting. pantoprazole (Protonix 40 mg Tab-DR) 1 Tablets By Mouth every day. Refills: 1. polyethylene glycol 3350 with electrolytes (NuLYTELY Quach oral powder for reconstitution) Prior to colonoscopy.. Refills: 0. potassium chloride (potassium chloride 20 mEq ER Tab) 1 Tablets By Mouth every day as needed Edema., takes prn when she takes prn lasix sumatriptan (SUMAtriptan 25 mg Tab) 9 EA, 0 Refill(s), TAKE 1 TABLET BY MOUTH at onset OF headache may repeat in 2 (TWO) HOURS., Responsible Provider: Tez Angel topiramate (topiramate 50 mg Tab) 60 EA, 0 Refill(s), TAKE 1 TABLET BY MOUTH TWICE DAILY., Responsible Provider: Tez Angel Comment: [facility] Main OR PACU I Recordon 11- Main OR PACU I Record PACU Phase I Document Type FT Summary Primary Physician: Alexx Gupta MD Finalized Date/Time: 08/06/23 10:10:38 Pt. Name: AZUL ONTIVEROS/Sex: 1990 Female Med Rec #: [id number] Physician: Alexx Gupta MD Financial #: [id number] Pt. Type: A Room/Bed: [place] [address] Admit/Disch: 08/06/23 05:51:08 - Institution: Case Times PACU I FT Pre-Care Text: Identifies barriers to communication and implements measures to provide psychological support Develops individualized plan of care, and ensures continuity of care Maintains patient's dignity and privacy, and maintains patient confidentiality Identifies and reports philosophical, cultural, and spiritual beliefs and values Identifies individual values and wishes concerning care Implements aseptic technique, and administers prescribed antibiotic therapy and immunizing agents as ordered Evaluates postoperative tissue perfusion Implements thermoregulation measures, and monitors body temperature Evaluates postoperative respiratory status Evaluates postoperative cardiac status Evaluates postoperative neurological status Assesses pain control, collaborated in initiating patient-controlled analgesia and implements alternative methods of pain control Verifies allergies, administers prescribed medications and solutions, evaluates response to medications Entry 1 In PACU I 08/06/23 09:25:00 Discharge from PACU 08/06/23 09:55:00 I Outcomes Met? Yes Last Modified By: Bia Perry RN 08/06/23 10:10:23 Post-Care Text: The patient demonstrates knowledge of the expected response to the operative or invasive procedure The patient's care is consistent with the individualized perioperative plan of care The patient's right to privacy is maintained The patient's value system, lifestyle, ethnicity, and culture are considered, respected, and incorporated into the perioperative plan of care The patient participates in decisions affecting his or her perioperative plan of care The patient is free from signs and symptoms of infection The patient has wound/tissue perfusion consistent with or improved from baseline levels established preoperatively The patient is at or returning to normothermia at the conclusion of the immediate postoperative period The patient's respiratory function is consistent with or improved from baseline levels established preoperatively The patient's cardiovascular status is consistent with or improved from baseline levels established preoperatively The patient's cardiovascular status is consistent with or improved from baseline levels established preoperatively The patient demonstrates and/or reports adequate pain control throughout the perioperative period The patient received appropriate medication(s), safely administered during the perioperative period Acuity Level PACU I FT Entry 1 Start Time 08/06/23 09:25:00 Stop Time 08/06/23 09:55:00 Acuity Level Acuity Level I Last Modified By: Bia Perry RN 08/06/23 10:10:34 Finalized By: Bia Perry RN Document Signatures Signed By: Bia Perry RN 08/06/23 10:10 [facility] Main OR PACU II Recordon Main OR PACU II Record PACU Phase II Document Type FT Summary Primary Physician: Alexx Gupta MD Finalized Date/Time: 08/06/23 11:21:37 Pt. Name: PRINCE ROMANKrystleAZUL GONZALEZ D.O.B./Sex: 1990 Female Med Rec #: [id number] Physician: Alexx Gupta MD Financial #: [id number] Pt. Type: Judd Room/Bed: [place] [address] Admit/Disch: 08/06/23 05:51:08 - Institution: Case Times PACU II FT Pre-Care Text: Identifies barriers to communication and implements measures to provide psychological support and determines knowledge level Develops individualized plan of care, and ensures continuity of care Maintains patient's dignity and privacy, and maintains patient confidentiality Identifies and reports philosophical, cultural, and spiritual beliefs and values Identifies individual values and wishes concerning care administers prescribed antibiotic therapy and immunizing agents as ordered, Evaluates postoperative tissue perfusion Implements thermoregulation measures, and monitors body temperature Evaluates postoperative respiratory status Evaluates postoperative cardiac status Evaluates postoperative neurological status Assesses pain control, collaborated in initiating patient-controlled analgesia and implements alternative methods of pain control Verifies allergies, administers prescribed medications and solutions, evaluates response to medications Entry 1 In PACU II 08/06/23 11:00:00 Discharge from PACU 08/06/23 11:20:00 II Outcomes Met? Yes Last Modified By: Adeline Elizabeth RN 08/06/23 11:21:35 Post-Care Text: The patient demonstrates knowledge of the expected response to the operative or invasive procedure The patient's care is consistent with the individualized perioperative plan of care The patient's right to privacy is maintained The patient's value system, lifestyle, ethnicity, and culture are considered, respected, and incorporated into the perioperative plan of care The patient participates in decisions affecting his or her perioperative plan of care. The patient is free from signs and symptoms of infection The patient has wound/tissue perfusion consistent with or improved from baseline levels established preoperatively The patient is at or returning to normothermia at the conclusion of the immediate postoperative period The patient's respiratory function is consistent with or improved from baseline levels established preoperatively The patient's cardiovascular status is consistent with or improved from baseline levels established preoperatively The patient's neurological status is consistent with or improved from baseline levels established preoperatively The patient demonstrates and/or reports adequate pain control throughout the perioperative period The patient received appropriate medication(s), safely administered during the perioperative period Finalized By: Adeline Elizabeth RN Document Signatures Signed By: Adeline Elizabeth RN 08/06/23 11:21 [facility] Main OR Preoperative Recordo n 08-06-2023 Main OR Preoperative Record PreOp Document Type FT Summary Primary Physician: Alexx Gupta MD Finalized Date/Time: 08/06/23 08:10:54 Pt. Name: PRINCE ALLEN AZULJudd Pratt/Sex: 1990 Female Med Rec #: [id number] Physician: Alexx Gupta MD Financial #: [id number] Pt. Type: A Room/Bed: [place] [address] Admit/Disch: 08/06/23 05:51:08 - Institution: Case Times PreOp FT Pre-Care Text: Verifies consent for planned procedure, identifies individual values and wishes concerning care, includes family members in perioperative teaching Entry 1 Patient Times. In Pre Surgery 08/06/23 05:55:00 Out Pre Surgery 08/06/23 07:35:00 Outcomes Met? Yes Last Modified By: Natanael Graham RN 08/06/23 08:10:52 Post-Care Text: The patient participates in decisions affecting his or her perioperative plan of care Finalized By: Natanael Graham RN Document Signatures Signed By: Natanael Graham RN 08/06/23 08:10 [facility] Monitor Recordon 08-06-2023 Monitor Record [id number] [facility] Operative Reporton 3 Operative Report Indication for Surge ry 33-year-old female with symptomatic cholelithiasis here for robotic cholecystectomy Preoperative Diagnosis CHOLELITHIASIS Postoperative Diagnosis CHOLELITHIASIS Operation CHOLECYSTECOMY ROBOT ASSISTED, ROBOT ASSISTED LAPAROSCOPIC CHOLECYSTECOMY, . Surgeon(s) Alexx Gupta MD (Surgeon - Primary) Medical Planner Michael Anesthesia General Mauricio Chang Jr., DO (Gas Appliance Mechanic) Felicitas Sanderson CRNA (Other) Estimated Blood Loss 10.0 mL Urine Output Void prior to or Findings Gallbladder with stones minimal amount of edema Specimen(s) Pathology Tissue Exam (Gallbladder,AP Specimen) Complications None Technique Informed consent: Written Position: Supine Perioperative antibiotics given within 60 minutes of incision: yes Time Out performed: yes Anesthesia: General ETT Prep and Drape: Sterile fashion Hair Clipped: No Abdominal Access:Veress Needle, Optiview 5mm trocar at maynard's point Port placement: 8mm robotic trocars 20cm from costal margin in left lower quadrant, left paramedian, right paramedian, right lower quadrant Robot Docked: yes Instruments: Prograsp, 30 degree robotic camera, forced bipolar, robotic monopolar scissors Firefly use to identify biliary structures: yes Cystic duct identified and circumferentially dissected: yes Cystic artery identified and circumferentially dissected:yes Critical view of safety: yes Division of cystic duct: 2 clips proximal, one distal, divided with scissors Division of cystic artery: one clip proximal, distally divided with cautery Gallbladder dissected off cystic plate: yes Gallbladder placed in Endo Catch bag: yes Gallbladder removed from field: Yes Spillage of contents: yes, bile only Irrigation: yes Ports removed and abdomen desufflated: Yes Skin closure: 4-0 monocryl, subcuticular fashion Dressing: skin glue Correct counts:yes, x2 Patient tolerated the procedure: yes [facility] Comment on above: Result Comment: Elec tronically Signed By: Alonso SOTELO, Alexx Dowling\.br\Date and Time Signed: 08/06/23 09:40 EST Outpatient Surgery Discharge Instructionon 08-06-2023 Outpatient Surgery Discharge Instruction [place] [id number] Patient Discharge Instructions PERSON INFORMATION Name: AZUL ONTIVEROS Date of : 1990 Current Date: 08/06/2023 09:34:08 PHYSICIANS Admitting Physician: Alexx Gupta MD Discharge Diagnosis: AZUL ONTIVEROS has been given the following list of follow-up instructions, prescriptions, and patient education materials: PATIENT FOLLOW-UP INFORMATION Diet: Regular Discharge Activity: Resume normal activities in 24 hours, Expect mild pain, Expect minimal amount of drainage and/or bleeding Discharge Restrictions: No driving for 24 hrs, Do not make important decisions for 24 hours, Do not drink alcoholic beverages for 24 hours Call Your Doctor For: Persistent or heavy bleeding, Temperature above 101.5 degrees, Redness, swelling, or pus at operative site, Severe pain at the operative site, Persistent vomiting Additional Instructions: Okay to shower tomorrow do not submerge incisions underwater as in pool or tub for 2 weeks after surgery no heavy lifting pushing pulling greater than 35 pounds for 1 week after surgery IF UNABLE TO CONTACT YOUR PHYSICIAN AND YOU FEEL IT IS AN EMERGENCY, GO TO THE NEAREST EMERGENCY ROOM OR CALL 911 IPRINCE GLENNA M, have received the attached patient education materials/instructions and have verbalized understanding: May we do a follow up call? Yes No I was present when discharge instructions were given ____ Patient Signature _ Date Clinican/Nurse Signature Date Follow up: With: Address: When: Alexx Gupta [address] [place] [address], [place] [address], [address] [phone] Business (1) Comments: Appointment has already been scheduled Type Location Start [facility] Cardiology New Patient (FT) FT.Cardiology Clinic 08/11/2023 1:30 PM 08/11/2023 1:45 PM Confirmed GS Post Op 15 [facility] 08/15/2023 9:20 AM 08/15/2023 9:40 AM Confirmed Pharmacy Information: You may receive a survey from Abhishek Brennan asking you to rate your care experience. Your feedback is important and will help us understand what we do well and how we can improve the quality of care we provide to you, your loved ones and our community. It?s an honor to serve you. Thank you for choosing [facility] HERE ARE THE MEDICATION CHANGES THAT OCCURRED DURING YOUR HOSPITAL STAY New Medications [facility] [address], [address] [place] [place] [id number], [phone] acetaminophen-oxycodone (Percocet 5 mg-325 mg oral tablet) 1 Tablets By Mouth every 6 hours as needed as needed for pain. Refills: 0. Medications to Continue with No Changes Other Medications buPROPion (buPROPion 150 mg ER Tab) 1 Tablets By Mouth every day., takes 150mg with the 300mg to total 450mg daily buPROPion (buPROPion 300 mg/24 hours ER Tab) 30 EA, 0 Refill(s), TAKE 1 TABLET BY MOUTH DAILY., Responsible Provider: Tez Angel cholecalciferol (Vitamin D3 2000 intl units oral tablet) 30 EA, 0 Refill(s), TAKE 1 TABLET BY MOUTH DAILY., Responsible Provider: Tez Angel furosemide (Lasix 40 mg Tab) 1 Tablets By Mouth every day as needed Edema. hydrOXYzine (hydrOXYzine hydrochloride 50 mg oral tablet) 30 EA, 0 Refill(s), TAKE 1 TABLET BY MOUTH FOUR TIMES DAILY NEEDED., Responsible Provider: Tez Angel MD levothyroxine (Levoxyl 75 mcg (0.075 mg) oral tablet) 1 Tablets By Mouth every day. lorazepam (LORazepam 0.5 mg Tab) 1 Tablets By Mouth Once as needed as needed for anxiety. magnesium amino acids chelate (magnesium amino acids chelate 100 mg oral tablet) 1 Tablets By Mouth every day. meclizine (meclizine 12.5 mg Tab) 1 Tablets By Mouth 3 times a day as needed Dizziness. ondansetron (Zofran ODT 4 mg Tab) 1 Tablets By Mouth every 6 hours as needed Nausea/Vomiting. pantoprazole (Protonix 40 mg Tab-DR) 1 Tablets By Mouth every day. Refills: 1. polyethylene glycol 3350 with electrolytes (NuLYTELY Quach oral powder for reconstitution) Prior to colonoscopy.. Refills: 0. potassium chloride (potassium chloride 20 mEq ER Tab) 1 Tablets By Mouth every day as needed Edema., takes prn when she takes prn lasix sumatriptan (SUMAtriptan 25 mg Tab) 9 EA, 0 Refill(s), TAKE 1 TABLET BY MOUTH at onset OF headache may repeat in 2 (TWO) HOURS., Responsible Provider: Tez Angel topiramate (topiramate 50 mg Tab) 60 EA, 0 Refill(s), TAKE 1 TABLET BY MOUTH TWICE DAILY., Responsible Provider: Tez Angel Simeon PATIENT EDUCATION INFORMATION Instructions: Minimally Invasive Cholecystectomy, Care After The following information offers guidance on how to care (more content not included)... [facility] Patient Education - Texton 1 10-06-2022 Patient Education - Text Gastroenterology Minimally Invasive Cholecystectomy, Care After The following information offers guidance on how to care for yourself after your procedure. Your health care provider may also give you more specific instructions. If you have problems or questions, contact your health care provider. What can I expect after the procedure? After the procedure, it is common to have: ? Pain at your incision sites. You will be given medicines to control this pain. ? Mild nausea or vomiting. ? Bloating and possible shoulder pain from the gas that was used during the procedure. Follow these instructions at home: Medicines ? Take gxdj-hqf-aanggha and prescription medicines only as told by your health care provider. ? If you were prescribed an antibiotic medicine, take it as told by your health care provider. Do not stop using the antibiotic even if you start to feel better. ? Ask your health care provider if the medicine prescribed to you: ? Requires you to avoid driving or using machinery. ? Can cause constipation. You may need to take these actions to prevent or treat constipation: ? Drink enough fluid to keep your urine pale yellow. ? Take imaq-bbq-kfdaqps or prescription medicines. ? Eat foods that are high in fiber, such as beans, whole grains, and fresh fruits and vegetables. ? Limit foods that are high in fat and processed sugars, such as fried or sweet foods. Incision care ? Follow instructions from your health care provider about how to take care of your incisions. Make sure you: ? Wash your hands with soap and water for at least 20 seconds before and after you change your bandage (dressing). If soap and water are not available, use hand employment specialist. ? Change your dressing as told by your health care provider. ? Leave stitches (sutures), skin glue, or adhesive strips in place. These skin closures may need to be in place for 2 weeks or longer. If adhesive strip edges start to loosen and curl up, you may trim the loose edges. Do not remove adhesive strips completely unless your health care provider tells you to do that. ? Do not take baths, swim, or use a hot tub until your health care provider approves. Ask your health care provider if you may take showers. You may only be allowed to take sponge baths. ? Check your incision area every day for signs of infection. Check for: ? More redness, swelling, or pain. ? Fluid or blood. ? Warmth. ? Pus or a bad smell. Activity ? Rest as told by your health care provider. Do not do activities that require a lot of effort. ? Avoid sitting for a long time without moving. Get up to take short walks every 1?2 hours. This is important to improve blood flow and breathing. Ask for help if you feel weak or unsteady. ? Do not lift anything that is heavier than 10 lb (4.5 kg), or the limit that you are told, until your health care provider says that it is safe. ? Do not play contact sports until your health care provider approves. ? Do not return to work or school until your health care provider approves. ? Return to your normal activities as told by your health care provider. Ask your health care provider what activities are safe for you. General instructions ? If you were given a sedative during the procedure, it can affect you for several hours. Do not drive or operate machinery until your health care provider says that it is safe. ? Keep all follow-up visits. This is important. Contact a health care provider if: ? You develop a rash. ? You have more redness, swelling, or pain around your incisions. ? You have fluid or blood coming from your incisions. ? Your incisions feel warm to the touch. ? You have pus or a bad smell coming from your incisions. ? You have a fever. ? One or more of your incisions breaks open. Get help right away if: ? You have trouble breathing. ? You have chest pain. ? You have more pain in your shoulders. ? You faint or feel dizzy when you stand. ? You have severe pain in your abdomen. ? You have nausea or vomiting that lasts for more than one day. ? You have leg pain that is new or unusual, or if it is localized to one specific spot. These symptoms may represent a serious problem that is an emergency. Do not wait to see if the symptoms will go away. Get medical help right away. Call your local emergency services (911 in the [place] Do not drive yourself to the hospital. Summary ? After your procedure, it is common to have pain at the incision sites. You may also have nausea or bloating. ? Follow your health care provider's instructions about medicine, activity restrictions, and caring for your incision areas. Do not do activities that require a lot of effort. ? Contact a health care provider if you have a fever or other signs of infection, such as more redness, swelling, or pain around the incisions. ? Get help right away if yo (more content not included)... Normal [facility] Progress Note-Physicianon Progress Note-Physician Patient: AZUL ONTIVEROS Age: 33 years Sex: Female : 1990 Associated Diagnoses: None Author: Mauricio Chang Jr., DO Postoperative Information Postoperative disposition: Postoperative disposition: Home. Optimetrix number: Optimetrix number [id number]. Anesthetic utilized: General. Physical Examination Vital Signs 08/06/2023 9:50 EST Temperature Axillary 36.7 DegC Heart Rate Monitored 80 bpm Respiratory Rate Monitored 20 br/min Systolic Blood Pressure 124 mmHg Diastolic Blood Pressure 92 mmHg HI Blood Pressure Location Right arm Mean Arterial Pressure, Cuff 103 mmHg SpO2 93 % 08/06/2023 9:40 EST Heart Rate Monitored 83 bpm Respiratory Rate Monitored 20 br/min Systolic Blood Pressure 125 mmHg Diastolic Blood Pressure 88 mmHg Blood Pressure Location Right arm Mean Arterial Pressure, Cuff 100 mmHg SpO2 99 % 08/06/2023 9:35 EST Heart Rate Monitored 85 bpm Respiratory Rate Monitored 24 br/min Systolic Blood Pressure 121 mmHg Diastolic Blood Pressure 92 mmHg HI Blood Pressure Location Right arm Mean Arterial Pressure, Cuff 102 mmHg SpO2 97 % 08/06/2023 9:30 EST Heart Rate Monitored 92 bpm Respiratory Rate Monitored 16 br/min Systolic Blood Pressure 130 mmHg Diastolic Blood Pressure 89 mmHg Blood Pressure Location Right arm Mean Arterial Pressure, Cuff 103 mmHg SpO2 99 % 08/06/2023 9:25 EST Heart Rate Monitored 93 bpm Respiratory Rate Monitored 22 br/min Systolic Blood Pressure 148 mmHg HI Diastolic Blood Pressure 108 mmHg HI Blood Pressure Location Right arm Mean Arterial Pressure, Cuff 121 mmHg SpO2 100 % Pain Assessment: Pain Assessment 08/06/2023 9:25 EST Primary Pain Location Shoulder Primary Pain Laterality Right Primary Pain Quality Aching Numeric Pain Scale 4 . General: Awake, Alert, Appropriate. Respiratory: Adequate air exchange, Non-labored. Cardiovascular: Stable, Normal peripheral perfusion. Neurological: Neurologic exam at baseline. No changes.. Assessment Anesthetic outcome No anesthetic complications noted. No nausea/vomiting. Review / Management Condition: Stable. Plan Transfer/Discharge: Transfer/Discharge Discharge when meets criteria ( From PACU to Ambulatory Surgery Unit, and To home ). [facility] Comment on above: Result Comment: Elec tronically Signed By: Mauricio Chang Jr., DO\.br\Date and Time Signed: 08/06/23 09:56 EST Progress Note-Physician Patient: AZUL ONTIVEROS Age: 33 years Sex: Female : 1990 Associated Diagnoses: None Author: Mauricio Chang Jr., DO Preoperative Information Anesthesia Preop Info NPO since midnight Anesthesia history: Patient history: No prior anesthetic problems. Informed consent: Signed by patient. Re-evaluation prior to induction: Initial evaluation reviewed: No significant change. Health Status Allergies: Allergic Reactions (Selected) Severity Not Documented Iodine- Hives. Steri strips- Rash and itching. Vicodin- Vomiting., Allergies (3) Active Reaction iodine Hives steri strips Rash Vicodin Vomiting Current medications: (Selected) Inpatient Medications Ordered HYDROmorphone 1 mg/mL injectable solution: 0.4 mg = 0.4 mL, Injection, IV Push, q4min PRN Pain for 5 dose(s), Stop date Limited # of times, Routine, Start date 08/06/23 7:11:00 EST, 08/06/23 7:11:00 EST Lactated Ringers IV Carolin 1000 mL 1,000 mL: 1,000 mL, IV, 100 mL/hr, Routine, Start date 08/06/23 7:11:00 EST, 10 hour(s), Total volume (mL): 1,000, 129.2 kg, 2.38, m2 Lactated Ringers IV Carolin 1000 mL 1,000 mL: 1,000 mL, IV, 150 mL/hr, Routine, Start date 08/06/23 6:00:00 EST, 6.7 hour(s), Total volume (mL): 1,000, 129.2 kg, 2.38, m2 Phenergan 25 mg/mL Injection: 12.5 mg = 0.5 mL, Injection, IV Push, q2min PRN Other (see comment) for 2 dose(s), Stop date Limited # of times, Routine, Start date 08/06/23 7:11:00 EST, 08/06/23 7:11:00 EST cefazolin additive + Premix Sodium Chloride 0.9% 100 mL: 3 gram = 100 mL, Soln-IV, IV Piggyback, PREOP, Routine, Start date 08/06/23 6:00:00 EST, 200 mL/hr, Infuse over 30 minute(s) indocyanine green: 5 mg = 2 mL, Powder-Inj, IV Push, PREOP, Routine, Start date 08/06/23 6:00:00 EST, 08/06/23 6:00:00 EST Prescriptions Prescribed NuLYTELY Quach oral powder for reconstitution: See Instructions, 1 EA, Refill(s) 0, Prior to colonoscopy., [facility], 157.5, cm, 07/08/23 14:03:00 EDT, Height/Length Dosing, 129.5, kg, 07/08/23 14:03:00 EDT, Weight Dosing Protonix 40 mg Tab-DR: 40 mg = 1 tab(s), Oral, Daily, # 90 tab(s), Refills(s) 1, Pharmacy: [facility], 152.4, cm, 08/10/21 14:17:00 EST, Height/Length Dosing, 128, kg, 08/10/21 14:17:00 EST, Weight Dosing Documented Medications Documented LORazepam 0.5 mg Tab: 0.5 mg = 1 tab(s), Oral, Once, PRN as needed for anxiety Lasix 40 mg Tab: 40 mg = 1 tab(s), Oral, Daily, PRN Edema, Refills(s) 0 Levoxyl 75 mcg (0.075 mg) oral tablet: 75 mcg = 1 tab(s), Oral, Daily, Refills(s) 0, Thyroid SUMAtriptan 25 mg Tab: 9 EA, 0 Refill(s), TAKE 1 TABLET BY MOUTH at onset OF headache may repeat in 2 (TWO) HOURS, Refills(s) 0 Vitamin D3 2000 intl units oral tablet: 30 EA, 0 Refill(s), TAKE 1 TABLET BY MOUTH DAILY, Refills(s) 0 Zofran ODT 4 mg Tab: 4 mg = 1 tab(s), Oral, q6hr, PRN Nausea/Vomiting, Refills(s) 0 buPROPion 150 mg ER Tab: 150 mg = 1 tab(s), Oral, Daily, Refills(s) 0, Depression buPROPion 300 mg/24 hours ER Tab: 30 EA, 0 Refill(s), TAKE 1 TABLET BY MOUTH DAILY, Refills(s) 0 hydrOXYzine hydrochloride 50 mg oral tablet: 30 EA, 0 Refill(s), TAKE 1 TABLET BY MOUTH FOUR TIMES DAILY NEEDED, Refills(s) 0 magnesium amino acids chelate 100 mg oral tablet: 100 mg = 1 tab(s), Oral, Daily, Refills(s) 0 meclizine 12.5 mg Tab: 12.5 mg = 1 tab(s), Oral, TID, PRN Dizziness, Refills(s) 0 potassium chloride 20 mEq ER Tab: 20 mEq = 1 tab(s), Oral, Daily, PRN Edema, Refills(s) 0 topiramate 50 mg Tab: 60 EA, 0 Refill(s), TAKE 1 TABLET BY MOUTH TWICE DAILY, Refills(s) 0, Home Medications (15) Active buPROPion 150 mg ER Tab 150 mg = 1 tab(s), Oral, Daily buPROPion 300 mg/24 hours ER Tab hydrOXYzine hydrochloride 50 mg oral tablet Lasix 40 mg Tab 40 mg = 1 tab(s), PRN, Oral, Daily Levoxyl 75 mcg (0.075 mg) oral tablet 75 mcg = 1 tab(s), Oral, Daily LORazepam 0.5 mg Tab 0.5 mg = 1 tab(s), PRN, Oral, Once magnesium amino acids chelate 100 mg oral tablet 100 mg = 1 tab(s), Oral, Daily meclizine 12.5 mg Tab 12.5 mg = 1 tab(s), PRN, Oral, TID NuLYTELY Quach oral powder for reconstitution See Instructions potassium chloride 20 mEq ER Tab 20 mEq = 1 tab(s), PRN, Oral, Daily Protonix 40 mg Tab-DR 40 mg = 1 tab(s), Oral, Daily SUMAtriptan 25 mg Tab topiramate 50 mg Tab Vitamin D3 2000 intl units oral tablet Zofran ODT 4 mg Tab 4 mg = 1 tab(s), PRN, Oral, q6hr , Medications (6) Active Scheduled: (2) ceFAZolin + Premix Sodium Chloride 0.9% Diluent 100 mL 3 gram 100 mL, IV Piggyback, PREOP indocyanine green 25 mg Powd [F] 5 mg 2 mL, IV Push, PREOP Continuous: (2) Lactated Ringers 1,000 mL 1,000 mL, IV, 150 mL/hr Lactated Ringers 1,000 mL 1,000 mL, IV, 100 mL/hr PRN: (2) HYDROmorphone 1 mg/mL SOLN [F] 0.4 mg 0.4 mL, IV Push, q4min promethazine 25 mg/mL Inj [F] 12.5 mg 0.5 mL, IV Push, q2min Problem list: All Problems Anemia / SNOMED CT 918928998 / Confirmed Anxiety / SNOMED CT 70713745 / Confirme (more content not included)... Normal [facility] Comment on above: Result Comment: Elec tronically Signed By: Mauricio Chang Jr., DO\.min\Date and Time Signed: 08/06/23 07:29 EST Consent for Procedure/Surger yon 07-28-2023 Consent for Procedure/Surgery [id number]#[id number] Normal [facility] Auto Diffon 07-25-2023 Basophils/100 WBC (Bld) 0.4 % Normal 0.0-2.0 [facility] Comment on above: Order Comment: Order Added by Discern Expert. Performed By: #### 2 [id number], [id number] #### [facility] [address] [place] [address] 75350 Basophils/Leukocyte s Auto (Bld) [Pure # fraction] 0.0 E9/L Normal 0.0-0.2 [facility] Comment on above: Order Comment: Order Added by Discern Expert. Performed By: #### 2 [id number], [id number] #### [facility] [address] [place] [address] 86065 Eosinophils/100 WBC (Bld) 0.9 % Normal 0.0-8.0 [facility] Comment on above: Order Comment: Order Added by Discern Expert. Performed By: #### 2 [id number], [id number] #### [facility] [address] [place] [address] 21812 Eosinophils/Leukocy dmitry Auto (Bld) [Pure # fraction] 0.0 E9/L Normal 0.0-0.5 [facility] Comment on above: Order Comment: Order Added by Discern Expert. Performed By: #### 2 [id number], [id number] #### [facility] [address] [place] [address] 00384 Lymphocytes/100 WBC (Bld) 29.0 % Normal 14.0-50.0 [facility] Comment on above: Order Comment: Order Added by Discern Expert. Performed By: #### 2 [id number], [id number] #### [facility] [address] [place] [address] 09479 Lymphocytes/Leukocy dmitry Auto (Bld) [Pure # fraction] 1.5 E9/L Normal 1.0-4.0 [facility] Comment on above: Order Comment: Order Added by Discern Expert. Performed By: #### 2 [id number], [id number] #### [facility] [address] [place] [address] 51463 Monocytes/100 WBC (Bld) 8.4 % Normal 4.0-14.0 [facility] Comment on above: Order Comment: Order Added by Discern Expert. Performed By: #### 2 [id number], [id number] #### [facility] [address] [place] [address] Monocytes/Leukocyte s Auto (Bld) [Pure # fraction] 0.4 E9/L Normal 0.2-1.0 [facility] Comment on above: Order Comment: Order Added by Discern Expert. Performed By: #### 2 [id number], [id number] #### [facility] [address] [place] [address] Neutrophils/100 WBC (Bld) 61.3 % Normal 36.0-75.0 [facility] Comment on above: Order Comment: Order Added by Discern Expert. Performed By: #### 2 [id number], [id number] #### [facility] [address] [place] [address] 70416 Neutrophils/Leukocy dmitry Auto (Bld) [Pure # fraction] 3.3 E9/L Normal 2.0-7.5 [facility] Comment on above: Order Comment: Order Added by Discern Expert. Performed By: #### 2 [id number], [id number] #### [facility] [address] [place] [address] 25633 CBC w/ Auto Diffon 3 Erythrocyte distribution width (RBC) [Ratio] 12.9 % Normal 10.9-14.2 [facility] Comment on above: Performed By: #### 2 [id number], [id number] #### [facility] [address] [place] [address] Hematocrit (Bld) [Volume fraction] 36.5 % Normal 34.0-46.0 [facility] Comment on above: Performed By: #### 2 [id number], [id number] #### [facility] [address] [place] [address] 19698 Hemoglobin (Bld) [Mass/Vol] 12.1 g/dL Normal 12.0-16.0 [facility] Comment on above: Performed By: #### 2 [id number], [id number] #### [facility] [address] [place] [address] MCH (RBC) [Entitic mass] 31.1 pg Normal 27.0-34.0 [facility] Comment on above: Performed By: #### 2 086909, [id number] #### [facility] [address] [place] [address] MCHC (RBC) [Mass/Vol] 33.3 g/dL Normal 31.4-36.0 [facility] Comment on above: Performed By: #### 2 510375, [id number] #### [facility] [address] [place] [address] 83003 MCV (RBC) [Entitic vol] 93.3 fL Normal 80.0-100.0 [facility] Comment on above: Performed By: #### 2 444292, [id number] #### [facility] [address] [place] [address] 37284 Platelet mean volume (Bld) [Entitic vol] 8.6 fL Normal 6.4-10.8 [facility] Comment on above: Performed By: #### 2 [id number], [id number] #### [facility] [address] [place] [address] 74229 Platelets (Bld) [#/Vol] 227.0 E9/L Normal 150.0-500.0 [facility] Comment on above: Performed By: #### 2 039020, [id number] #### [facility] [address] [place] [address] 62272 RBC (Bld) [#/Vol] 3.9 E12/L Low 4.3-5.9 [facility] Comment on above: Performed By: #### 2 217108, [id number] #### [facility] [address] [place] [address] 13266 WBC corrected for nucl RBC Auto (Bld) [#/Vol] 5.3 E9/L Normal 4.0-11.0 [facility] Comment on above: Performed By: #### 2 [id number], [id number] #### [facility] [address] [place] [address] Maxillofacial w/o Juliette ruff 07-25-2023 CT Maxillofacial w/o Contrast Exam Date/Time: 2023 07:14 EST Reason for Exam: J32.9 SINUSITIS Report IMPRESSION: MODERATE LEFT SEPTAL DEVIATION. OTHERWISE NEGATIVE STUDY. NO EVIDENCE OF SINUSITIS. EXAM: CT Maxillofacial w/o Contrast CLINICAL HISTORY: Headache J32.9 SINUSITIS COMPARISON: NONE. TECHNIQUE: Unenhanced images were obtained through the paranasal sinuses in the axial plane with coronal and sagittal reformats. FINDINGS: Maxillary sinuses:The maxillary sinuses are clear. Sinus outflow tracts are patent Ethmoid sinuses: Ethmoid sinuses are clear. Sphenoid sinuses: The sphenoid sinuses are normally aerated. Sphenoethmoid recesses are patent. Frontal sinuses: The frontal sinuses are normally aerated. Frontal recesses are patent. Nasal fossa: Gentle moderate septal deviation toward the left. 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 Nasal cavity otherwise clear. All CT scans at this facility use dose modulation, iterative reconstruction, and/or weight based dosing when appropriate to reduce radiation dose to as low as reasonably achievable. Ordering Provider: TEZ ANGEL FINAL REPORT Dictated: 07/25/2023 9:48 am Latasha Arciniega MD Signed (Electronic Signature): 07/25/2023 9:48 am Signed by: Latasha Arciniega MD Transcribed by: KARL Technologist: [facility] Consent for Treatmenton 07-09 Consent for Treatment [id number]#1.00TIFF [facility] HEMATOLOGYOrdered By: SYSTEM SYSTEM on 07-25-2023 Basophils/100 WBC (Bld) 0.4 % Normal 0.0 - 2.0 % [facility] Basophils/Leukocyte s Auto (Bld) [Pure # fraction] 0.0 E9/L Normal 0.0 - 0.2 E9/L [facility] Eosinophils/100 WBC (Bld) 0.9 % Normal 0.0 - 8.0 % [facility] Eosinophils/Leukocy dmitry Auto (Bld) [Pure # fraction] 0.0 E9/L Normal 0.0 - 0.5 E9/L [facility] Lymphocytes/100 WBC (Bld) 29.0 % Normal 14.0 - 50.0 % [facility] Lymphocytes/Leukocy dmitry Auto (Bld) [Pure # fraction] 1.5 E9/L Normal 1.0 - 4.0 E9/L [facility] Monocytes/100 WBC (Bld) 8.4 % Normal 4.0 - 14.0 % [facility] Monocytes/Leukocyte s Auto (Bld) [Pure # fraction] 0.4 E9/L Normal 0.2 - 1.0 E9/L [facility] Neutrophils/100 WBC (Bld) 61.3 % Normal 36.0 - 75.0 % [facility] Neutrophils/Leukocy dmitry Auto (Bld) [Pure # fraction] 3.3 E9/L Normal 2.0 - 7.5 E9/L [facility] HEMATOLOGYOrdered By: Christiana Johnson on 07-25-2023 Erythrocyte distribution width (RBC) [Ratio] 12.9 % Normal 10.9 - 14.2 % [facility] Hematocrit (Bld) [Volume fraction] 36.5 % Normal 34.0 - 46.0 % [facility] Hemoglobin (Bld) [Mass/Vol] 12.1 g/dL Normal 12.0 - 16.0 gm/dL [facility] MCH (RBC) [Entitic mass] 31.1 pg Normal 27.0 - 34.0 pg [facility] MCHC (RBC) [Mass/Vol] 33.3 g/dL Normal 31.4 - 36.0 gm/dL [facility] MCV (RBC) [Entitic vol] 93.3 fL Normal 80.0 - 100.0 fL [facility] Platelet mean volume (Bld) [Entitic vol] 8.6 fL Normal 6.4 - 10.8 fL [facility] Platelets (Bld) [#/Vol] 227.0 E9/L Normal 150.0 - 500.0 E9/L [facility] RBC (Bld) [#/Vol] 3.9 E12/L Low 4.3 - 5.9 E12/L [facility] WBC corrected for nucl RBC Auto (Bld) [#/Vol] 5.3 E9/L Normal 4.0 - 11.0 E9/L [facility] Consent for Treatmenton 07-09 Consent for Treatment [id number]#1.00TIFF Normal [facility] Consent for Procedure/Surger yon 07-23-2023 Consent for Procedure/Surgery [id number]#1.00TIFF Normal [facility] Insurance Correspondenceon 09-21-2022 Insurance Correspondence [id number]#1.00TIFF Normal [facility] Ambulatory Visit Summaryon 09-20-2022 Ambulatory Visit Summary AZUL ONTIVEROS :1990 Visit Date:07/21/2023 Ambulatory Visit Instructions Your Diagnosis Cholelithiasis BMI 50.0-59.9, adult Your Care Team Attending Physician - Alonso SOTELO, Alexx Dowling Primary Care Physician - TEZ ANGEL MD This Is Your Medications List buPROPion (buPROPion 300 mg/24 hours ER Tab) cholecalciferol (Vitamin D3 2000 intl units oral Tab) cholecalciferol (Vitamin D3 2000 intl units oral tablet) cholecalciferol (Vitamin D3) chromium picolinate (chromium picolinate 1000 mcg oral tablet) furosemide (Lasix 40 mg Tab) hydrOXYzine (hydrOXYzine hydrochloride 50 mg oral tablet) levothyroxine (Levoxyl 75 mcg (0.075 mg) oral tablet) magnesium amino acids chelate (magnesium amino acids chelate 100 mg oral tablet) meclizine (meclizine 12.5 mg Tab) multivitamin, ( Multi + DHA) ondansetron (Zofran ODT 4 mg Tab) pantoprazole (Protonix 40 mg Tab-DR) polyethylene glycol 3350 with electrolytes (NuLYTELY Quach oral powder for reconstitution) potassium chloride (potassium chloride 20 mEq ER Tab) sumatriptan (SUMAtriptan 25 mg Tab) topiramate (topiramate 50 mg Tab) Procedures Performed Colposcopy, Laparoscopy, LEEP, Plantar fasciotomy. 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 female here for cholelithiasis Melissa Nunez referring US Gallbladder done 07/14/2023 She states she has sharp pain with SOB in right side of chest and upper abdomen She has intermittent RUQ pain. She has triggering foods of beef or red meats and greasy foods She has nausea without vomiting. She states the symptoms started July 2021. She has had laparoscopic surgeries History of Present Illness Azul Allen is a 32-year-old female with a history of epigastric and right upper quadrant pain for the past year. She was found to have cholelithiasis on ultrasound with no wall thickening. The patient states that she has been dealing with symptoms at least since 2021, made worse by eating fatty food, greasy food, and red meat. Review of Systems Constitutional: No fever, no sweats, no weight loss. Eyes: No glasses, no blurred vision, no visual loss. ENMT: No dentures, no hoarseness, no swallowing difficulties, no hearing loss, no ear infection (s), no nose bleeds. Cardiovascular: Normal blood pressure, no chest pain, regular heartbeat, no heart murmur. Respiratory: No shortness of breath, no cough, no wheezing, no asthma. Gastrointestinal: No nausea, no vomiting, no diarrhea, no constipation, no change in bowel habits, no abdominal pain, no hepatitis. Genitourinary: No kidney stones, no urine infection, no difficulty passing urine. Musculoskeletal: No pain, no weakness. Skin: No changing moles, no rash, no skin lumps. Neurologic: No seizures, no epilepsy, no headache. Psychiatric: No emotional, no psychiatric problem. Endocrine: No thyroid, no diabetes. Heme/Lymph: No bleeding problems, no anemia, no blood clots, no transfusions. Allergy/Immunologic: No swollen lymph nodes/glands, no IV drug abuse. Other: Additional ROS info: Except as noted in the above Review of Systems and in the History of Present Illness, all other systems have been reviewed and are negative or noncontributory. Physical Exam Vitals & Measurements HR: 93(Peripheral) BP: 121/81 HT: 62 in HT: 157 cm WT: 128 kg WT: 281.6 lb BMI: 51.93 General: No acute distress. The patient has a BMI of 51. Respiratory: Unlabored breathing on room air Cardiac: Regular rate and rhythm Abdomen: She has mild right upper quadrant tenderness. Assessment/Plan 1. Cholelithiasis (K80.20: Calculus of gallbladder without cholecystitis without obstruction) We will proceed with a robotic cholecystectomy at this time. Consent was obtained in the office. 2. BMI 50.0-59.9, adult (Z68.43: Body mass index [BMI] 50.0-59.9, adult) Portions of this record may have been created with voice recognition artificial intelligence software, specifically [employer], [employer] and or [employer] management. Substitutions may have occurred voice recognition and artificial intelligence software. Documentation services were performed after patient or guardian consented to allow [employer] to record this visit. JOANN specialist field engineer and provider reviewed before signing. 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 Medications buPROPion 300 mg/24 hours ER Tab chromium picolinate 1000 mcg oral tablet, Not taking hydrOXYzine hydrochloride 50 mg oral tablet Lasix 40 mg Tab, 40 mg= 1 tab(s), Oral, Daily, PRN Levoxyl 75 mcg (0.075 mg) oral tablet, 75 mcg= 1 tab(s), Oral, Daily magnesium amino acids chelate 100 mg oral tablet, 100 mg= 1 tab(s), Oral, TID meclizine 12.5 mg Tab, Oral, TID NuLYTELY Quach oral powder for reconstitution, See Instructions potassium chloride 20 mEq ER Tab, 20 mEq= 1 tab(s), Oral, Daily Multi + DHA Protonix 40 mg Tab-DR, 40 mg= 1 tab(s), Oral, Daily, 1 refills SUMAtriptan 25 mg Tab topiramate 50 mg Tab Vitamin D3 Vitamin D3 2000 intl units oral Tab, 1 tab(s), Oral, Daily Vitamin D3 2000 intl units oral tablet Zofran ODT 4 mg Tab, 4 mg= 1 tab(s), Oral, q6hr, PRN Allergies Vicodin (Unknown) iodinated radiocontrast dyes (Unknown) Social History Alcohol - Denies Alcohol Use, 08/10/2021 Substance Abuse - Denies Substance Abuse, 08/10/2021 Tobacco Never (less than 100 in lifetime), Smoker, current status unknown Tobacco (more content not included)... [facility] Comment on above: Result Comment: Elec tronically Signed By: Alexx Gupta MD\.br\Date and Time Signed: 07/21/23 15:29 EST\.br\Electronically Co-Signed By: Rosalva Sánchez\.br\Date and Time Co-Signed: 07/21/23 15:23 EST Patient Educationon 07-21-20 Patient Education Gastroenterology Obesity, Adult Obesity is the condition of having too much total body fat. Being overweight or obese means that your weight is greater than what is considered healthy for your body size. Obesity is determined by a measurement called BMI (body mass index). BMI is an estimate of body fat and is calculated from height and weight. For adults, a BMI of 30 or higher is considered obese. Obesity can lead to other health concerns and major illnesses, including: ? Stroke. ? Coronary artery disease (CAD). ? Type 2 diabetes. ? Some types of cancer, including cancers of the colon, breast, uterus, and gallbladder. ? High blood pressure (hypertension). ? High cholesterol. ? Gallbladder stones. Obesity can also contribute to: ? Osteoarthritis. ? Sleep apnea. ? Infertility problems. What are the causes? Common causes of this condition include: ? Eating daily meals that are high in calories, sugar, and fat. ? Drinking high amounts of sugar-sweetened beverages, such as soft drinks. ? Being born with genes that may make you more likely to become obese. ? Having a medical condition that causes obesity, including: ? Hypothyroidism. ? Polycystic ovarian syndrome (PCOS). ? Binge-eating disorder. ? Leo syndrome. ? Taking certain medicines, such as steroids, antidepressants, and seizure medicines. ? Not being physically active (sedentary lifestyle). ? Not getting enough sleep. What increases the risk? The following factors may make you more likely to develop this condition: ? Having a family history of obesity. ? Living in an area with limited access to: ? [place], recreation centers, or sidewalks. ? Healthy food choices, such as grocery stores and [employer]. What are the signs or symptoms? The main sign of this condition is having too much body fat. How is this diagnosed? This condition is diagnosed based on: ? Your BMI. If you are an adult with a BMI of 30 or higher, you are considered obese. ? Your waist circumference. This measures the distance around your waistline. ? Your skinfold thickness. Your health care provider may gently pinch a fold of your skin and measure it. You may have other tests to check for underlying conditions. How is this treated? Treatment for this condition often includes changing your lifestyle. Treatment may include some or all of the following: ? Dietary changes. This may include developing a healthy meal plan. ? Regular physical activity. This may include activity that causes your heart to beat faster (aerobic exercise) and strength training. Work with your health care provider to design an exercise program that works for you. ? Medicine to help you lose weight if you are unable to lose one pound a week after six weeks of healthy eating and more physical activity. ? Treating conditions that cause the obesity (underlying conditions). ? Surgery. Surgical options may include gastric banding and gastric bypass. Surgery may be done if: ? Other treatments have not helped to improve your condition. ? You have a BMI of 40 or higher. ? You have life-threatening health problems related to obesity. Follow these instructions at home: Eating and drinking ? Follow recommendations from your health care provider about what you eat and drink. Your health care provider may advise you to: ? Limit fast food, sweets, and processed snack foods. ? Choose low-fat options, such as low-fat milk instead of whole milk. ? Eat five or more servings of fruits or vegetables every day. ? Choose healthy foods when you eat out. ? Keep low-fat snacks available. ? Limit sugary drinks, such as soda, fruit juice, sweetened iced tea, and flavored milk. ? Drink enough water to keep your urine pale yellow. ? Do not follow a fad diet. Fad diets can be unhealthy and even dangerous. ? Other healthful choices include: ? Eat at home more often. This gives you more control over what you eat. ? Learn to read food labels. This will help you understand how much food is considered one serving. ? Learn what a healthy serving size is. Physical activity ? Exercise regularly, as told by your health care provider. ? Most adults should get up to 150 minutes of moderate-intensity exercise every week. ? Ask your health care provider what types of exercise are safe for you and how often you should exercise. ? Warm up and stretch before being active. ? Cool down and stretch after being active. ? Rest between periods of activity. Lifestyle ? Work with your health care provider and a dietitian to set a weight-loss goal that is healthy and reasonable for you. ? Limit your screen time. ? Find ways to reward yourself that do not involve food. ? Do not drink alcohol if: ? Your health care provider tells you not to drink. ? You are , may be , or are planning to become . ? If you drink alcohol: ? Limit how much you have to (more content not included)... [facility] Insurance Correspondenceon 1 09-15-2022 Insurance Correspondence [id number]#[id number] [facility] Physician Orderon 07-16-2023 Physician Order [id number]#[id number] [facility] US Gallbladderon 07-15-2023 US Gallbladder Exam Date/Time: 07/14/2023 12:58 EST Reason for Exam: R10.13;Abdominal pain Report IMPRESSION: NEGATIVE ULTRASOUND OF THE LIVER. CHOLELITHIASIS. CLINICAL HISTORY: Abdominal pain, R10.13. COMMENT: The liver is normal in size and configuration. The echo pattern of the liver is unremarkable. No focal liver lesion is evident. The gallbladder is within normal limits in size. There are small shadowing gallstones collecting in the dependent portion of the gallbladder. No gallbladder wall thickening nor pericholecystic fluid collection is evident. There is no biliary ductal dilatation. The common bile duct measures approximately 6 mm in diameter at the jose hepatis. The common bile duct is obscured beyond the jose hepatis. No free fluid is noted collecting peripheral to the liver. Ordering Provider: , FINAL REPORT Dictated: 07/15/2023 7:52 am Anthony Fitch M.D. Signed (Electronic Signature): 07/15/2023 7:52 am Signed by: Anthony Fitch M.D. Transcribed by: KARL Technologist: SERAFIN Benitez [facility] Consent for Treatmenton 11-0 Consent for Treatment [id number]#[id number] [facility] Ambulatory Visit Summaryon 1 Ambulatory Visit Summary AZUL ONTIVEROS :1990 Visit Date:07/08/2023 Ambulatory Visit Instructions Your Diagnosis Epigastric abdominal pain Nausea Irregular bowel habits BRBPR (bright red blood per rectum) Chest pain Your Care Team Attending Physician - Melissa Nunez CNP Primary Care Physician - TEZ ANGEL MD This Is Your Medications List polyethylene glycol 3350 with electrolytes (NuLYTELY Quach oral powder for reconstitution) Contact prescribing physician if questions or concerns buPROPion (buPROPion 300 mg/24 hours ER Tab) cholecalciferol (Vitamin D3 2000 intl units oral Tab) cholecalciferol (Vitamin D3 2000 intl units oral tablet) cholecalciferol (Vitamin D3) chromium picolinate (chromium picolinate 1000 mcg oral tablet) furosemide (Lasix 40 mg Tab) hydrOXYzine (hydrOXYzine hydrochloride 50 mg oral tablet) levothyroxine (Levoxyl 75 mcg (0.075 mg) oral tablet) multivitamin, ( Multi + DHA) ondansetron (Zofran ODT 4 mg Tab) pantoprazole (Protonix 40 mg Tab-DR) potassium chloride (potassium chloride 20 mEq ER Tab) sucralfate (sucralfate 1 g/10 mL Oral Susp 10 mL) sumatriptan (SUMAtriptan 25 mg Tab) topiramate (topiramate 50 mg Tab) tramadol (tramadol 50 mg oral tablet) Procedures Performed Colposcopy, Laparoscopy, LEEP, Plantar fasciotomy. Discharge Vitals Temperature (Temporal Artery) 36.1 ?C Heart Rate (Peripheral) 87 Respiratory Rate 16 Blood Pressure 111/74 Height 157.5 cm Height 62 in Weight 129.5 kg Weight 284.9 lb BMI 52.2 What to do next You Need to Schedule the Following Appointments Follow Up with Melissa Nunez CNP When: Within 1 to 2 weeks Comments: Following EGD/Colonoscopy. Where: You Need to Complete the Following Clostridium Difficile PCR, Stool, Routine collect, 07/08/23, Order for future visit, Nurse collect, Irregular bowel habits, Print Label By Order Location Enteric Panel by PCR, Stool, Routine collect, 07/08/23, Order for future visit, Nurse collect, Irregular bowel habits, Print Label By Order Location Fecal WBC Lactoferrin, Stool, Routine collect, 07/08/23, Order for future visit, Nurse collect, Irregular bowel habits, Print Label By Order Location Giardia lamblia, Direct Detection EIA, Stool, Routine collect, 07/08/23, Order for future visit, Nurse collect, Irregular bowel habits, Print Label By Order Location O & P Exam, Routine, Stool, Routine collect, 07/08/23, Order for future visit, Nurse collect, Irregular bowel habits, Print Label By Order Location US Gallbladder, 07/08/23, Routine, Order for future visit, Transport Mode: Ambulatory, Reason: Abdominal pain, No, Epigastric abdominal pain [facility] Gastroenterology Office/Clin ic Noteon 07-08-2023 Gastroenterology Office/Clinic Note Chief Complaint Upper abdominal pain and pain when breathing. HPI Staff This is a 32 year old female who presents today for a follow up from [facility] ER on 06/23/23, for complaints of GERD/ gastritis. Dr Angel referred patient to for gallbladder. History of Present Illness Patient is a 32-year-old female who presents for follow-up from ED visit 06/23/2023 at [facility] ED. Presents with female visitor today. Review of record from ED visit indicated patient was having chest pain that radiated to upper abdomen. Note also indicated patient was treated with GI cocktail and Carafate and had improved symptoms. Review of outside record from PCP: Dr. Angel from 06/27/23 indicated patient with epigastric pain and shortness of breath with pain. Patient was referred by PCP to general surgery regarding hx. gallstones. Patient reports FH CHF- patient's father, diagnosed in his 30s and hx. [place] at age early 40s, reports her father had multiple MIs- at age 63. Maternal grandmother- patient reports hx. CHF. During today's visit, patient reports she has been experiencing epigastric pain described as sharp/stabbing with associated shortness of breath in relation to the pain. She reports having epigastric pain that occurs rarely with pantoprazole 40mg daily. Has nausea with epigastric pain. She reports epigastric pain started in 2020 and has been occurring off/on. Epigastric pain is triggered by red meat. Is also having reports epigastric pain radiates to right side of chest when she experiences epigastric pain, occurring over the last 2 years off/on. Patient explains she had previous ultrasound of upper abdomen in 2020 that showed gallstones. She reports having acid reflux in the past and has had no further acid reflux since 2021. She explains she used to drink alcohol [id number]: 3 cans of beer and 1/2 gallon of whiskey a week. Stopped drinking alcohol in 2021. Patient reports having irregular bowel habits over the last 2 years with altering diarrhea and constipation. She explains 40% of the time she will be constipated with no BM for up to 4-5 days and explains 50% of the time she will have diarrhea, and 10% of the time will have formed stool. Is currently having 4-5 BMs a week that are hard in consistency. She explains with hard BM, she will have BRBPR on toilet paper with wiping. Is having chills with BMs over the last 6 months. Denies black/bloody stools, vomiting, and denies having any other GI complaints. Review of Systems ROS - Provider Constitutional: no fever, no chills. Skin: no Jaundice. ENMT: Denies dysphagia and heartburn. Respiratory: no shortness of breath. Cardiovascular: no chest pain. Gastrointestinal: yes nausea, no vomiting, yes diarrhea, no GI bleeding. Physical Exam Vitals & Measurements T: 36.1 ?C(Temporal Artery) HR: 87(Peripheral) RR: 16 BP: 111/74 HT: 62 in HT: 157.5 cm WT: 129.5 kg WT: 284.9 lb BMI: 52.2 General: Well developed, well nourished, in no acute distress Head: Normocephalic/atraumatic Lungs: Normal respiratory effort and clear to auscultation Cardio: Regular rate and rhythm, normal S1 and S2, no murmur, no rub Abdomen: Soft, non-distended, non-tender. Normoactive bowel sounds present in all 4 abdominal quadrants, bilaterally. Mental Status: Alert and oriented x3. Normal mood and affect Assessment/Plan 1. Epigastric abdominal pain (R10.13: Epigastric pain) Is having experiencing epigastric pain described as sharp/stabbing with associated shortness of breath in relation to the pain. Improved with pantoprazole. Previous labs 06/23/2023 revealed normal H&H, normal BUN, normal creatinine, normal LFTs, normal lipase level. Epigastric pain started in 2020 and has been occurring off/on. Epigastric pain is triggered by red meat. Reportedly had previous ultrasound of upper abdomen in 2020 that showed gallstones. Ordered ultrasound of gallbladder. Ordered EGD. Ordered: EGD Endoscopy (Hospital Procedure) [facility] Internal Ambulatory Referral US Gallbladder 2. Nausea (R11.0: Nausea) Is having nausea with epigastric pain. Previous labs 06/23/2023 revealed normal H&H, normal BUN, normal creatinine, normal LFTs, normal lipase level. Epigastric pain started in 2020 and has been occurring off/on. Epigastric pain is triggered by red meat. Reportedly had previous ultrasound of upper abdomen in 2020 that showed gallstones. Ordered ultrasound of gallbladder. Ordered EGD. Ordered: EGD Endoscopy (Hospital Procedure) [facility] Internal Ambulatory Referral US Gallbladder 3. Irregular bowel habits (R19.8: Other specified symptoms and signs involving the digestive system and abdomen) Is having irregular bowel habits over the last 2 years with altering diarrhea and constipation. Is having 40% of the time she will be constipated with no BM for up to 4-5 days and explains 50% of the time she will have diarrhea, and 10% of the time will have formed stool. Is currently having 4-5 BMs a week that are hard in c (more content not included)... [facility] Comment on above: Result Comment: Elec tronically Signed By: Melissa Nunez CNP\.br\Date and Time Signed: 07/08/23 14:43 EDT Patient Educationon 07-08-20 Patient Education Gastroenterology Nausea, Adult Nausea is the feeling of having an upset stomach or that you are about to vomit. Nausea on its own is not usually a serious concern, but it may be an early sign of a more serious medical problem. As nausea gets worse, it can lead to vomiting. If vomiting develops, or if you are not able to drink enough fluids, you are at risk of becoming dehydrated. Dehydration can make you tired and thirsty, cause you to have a dry mouth, and decrease how often you urinate. Older adults and people with other diseases or a weak disease-fighting system (immune system) are at higher risk for dehydration. The main goals of treating your nausea are: ? To relieve your nausea. ? To limit repeated nausea episodes. ? To prevent vomiting and dehydration. Follow these instructions at home: Watch your symptoms for any changes. Tell your health care provider about them. Eating and drinking ? Take an oral rehydration solution (ORS). This is a drink that is sold at pharmacies and retail stores. ? Drink clear fluids slowly and in small amounts as you are able. Clear fluids include water, ice chips, low-calorie sports drinks, and fruit juice that has water added (diluted fruit juice). ? Eat bland, oosq-pv-cscvlx foods in small amounts as you are able. These foods include bananas, applesauce, rice, lean meats, toast, and crackers. ? Avoid drinking fluids that contain a lot of sugar or caffeine, such as energy drinks, sports drinks, and soda. ? Avoid alcohol. ? Avoid spicy or fatty foods. General instructions ? Take nexs-xav-mvjpvao and prescription medicines only as told by your health care provider. ? Rest at home while you recover. ? Drink enough fluid to keep your urine pale yellow. ? Breathe slowly and deeply when you feel nauseous. ? Avoid smelling things that have strong odors. ? Wash your hands often using soap and water for at least 20 seconds. If soap and water are not available, use hand employment specialist. ? Make sure that everyone in your household washes their hands well and often. ? Keep all follow-up visits. This is important. Contact a health care provider if: ? Your nausea gets worse. ? Your nausea does not go away after two days. ? You vomit multiple times. ? You cannot drink fluids without vomiting. ? You have any of the following: ? New symptoms. ? A fever. ? A headache. ? Muscle cramps. ? A rash. ? Pain while urinating. ? You feel light-headed or dizzy. Get help right away if: ? You have pain in your chest, neck, arm, or jaw. ? You feel extremely weak or you faint. ? You have vomit that is bright red or looks like coffee grounds. ? You have bloody or black stools (feces) or stools that look like tar. ? You have a severe headache, a stiff neck, or both. ? You have severe pain, cramping, or bloating in your abdomen. ? You have difficulty breathing or are breathing very quickly. ? Your heart is beating very quickly. ? Your skin feels cold and clammy. ? You feel confused. ? You have signs of dehydration, such as: ? Dark urine, very little urine, or no urine. ? Cracked lips. ? Dry mouth. ? Sunken eyes. ? Sleepiness. ? Weakness. These symptoms may be an emergency. Get help right away. Call 911. ? Do not wait to see if the symptoms will go away. ? Do not drive yourself to the hospital. Summary ? Nausea is the feeling that you have an upset stomach or that you are about to vomit. Nausea on its own is not usually a serious concern, but it may be an early sign of a more serious medical problem. ? If vomiting develops, or if you are not able to drink enough fluids, you are at risk of becoming dehydrated. ? Follow recommendations for eating and drinking and take dail-kku-uempvph and prescription medicines only as told by your health care provider. ? Contact a health care provider right away if your symptoms worsen or you have new symptoms. ? Keep all follow-up visits. This is important. This information is not intended to replace advice given to you by your health care provider. Make sure you discuss any questions you have with your health care provider. Document Revised: 03/01/2022 Document Reviewed: 03/01/2022 [employer] Patient Education ? 2022 [employer] Normal [facility] Reminderson 07-08-2023 Reminders - From: Zoya Deal To: [facility] - Reminders/Recalls; Sent: 07/08/2023 14:50:43 EDT Show up: 07/08/2023 14:51:00 EDT Subject: Ambulatory Reminder [employer] [place] Reminder/Recall call pt and schedule EGD and Colon with Dr. Patino once Medicaid [place] has been approved. [facility] Physician Referralon 023 Physician Referral [id number] [facility] Auto Diffon 06-23-2023 Basophils/100 WBC (Bld) 0.4 % Normal 0.0-2.0 [facility] Comment on above: Order Comment: Order Added by Discern Expert. Performed By: #### 2 [id number], [id number], [id number], 73912437, 2538784, [id number], [id number] #### [facility] [address] [place] [address] Basophils/Leukocyte s Auto (Bld) [Pure # fraction] 0.0 E9/L Normal 0.0-0.2 [facility] Comment on above: Order Comment: Order Added by Discern Expert. Performed By: #### 2 [id number], [id number], 2008729, [id number], 5652161, 1336992, [id number] #### [facility] [address] [place] [address] Eosinophils/100 WBC (Bld) 0.6 % Normal 0.0-8.0 [facility] Comment on above: Order Comment: Order Added by Discern Expert. Performed By: #### 2 748733, [id number], 2561874, 95717000, 8248524, 0219394, 6527973 #### [facility] [address] [place] [address] Eosinophils/Leukocy dmitry Auto (Bld) [Pure # fraction] 0.0 E9/L Normal 0.0-0.5 [facility] Comment on above: Order Comment: Order Added by Discern Expert. Performed By: #### 2 632526, [id number], 6837059, 88084144, 2065033, 6505217, 1540769 #### [facility] [address] [place] [address] Lymphocytes/100 WBC (Bld) 13.9 % Low 14.0-50.0 [facility] Comment on above: Order Comment: Order Added by Discern Expert. Performed By: #### 2 498572, 73576260, 5612497, 49478048, 0574759, 5830388, 2927656 #### [facility] [address] [place] [address] Lymphocytes/Leukocy dmitry Auto (Bld) [Pure # fraction] 1.0 E9/L Normal 1.0-4.0 [facility] Comment on above: Order Comment: Order Added by Discern Expert. Performed By: #### 2 331157, 43748062, 1856743, 93902801, 1046029, 2986457, 7716332 #### [facility] [address] [place] [address] Monocytes/100 WBC (Bld) 5.5 % Normal 4.0-14.0 [facility] Comment on above: Order Comment: Order Added by Discern Expert. Performed By: #### 2 129570, 84754607, 1849876, 00053871, 3181323, 3501905, 5910581 #### [facility] [address] [place] [address] Monocytes/Leukocyte s Auto (Bld) [Pure # fraction] 0.4 E9/L Normal 0.2-1.0 [facility] Comment on above: Order Comment: Order Added by Discern Expert. Performed By: #### 2 262470, [id number], 4439463, 77677374, 5383100, 0203243, 1742883 #### [facility] [address] [place] [address] Neutrophils/100 WBC (Bld) 79.6 % High 36.0-75.0 [facility] Comment on above: Order Comment: Order Added by Discern Expert. Performed By: #### 2 385067, 39791926, 9654869, 06638768, 9520233, 8651695, 3817251 #### [facility] [address] [place] [address] Neutrophils/Leukocy dmitry Auto (Bld) [Pure # fraction] 5.5 E9/L Normal 2.0-7.5 [facility] Comment on above: Order Comment: Order Added by Discern Expert. Performed By: #### 2 199155, 08048278, 4984238, 02239043, 8016865, 0564574, 4069098 #### [facility] [address] [place] [address] B hCG Qualon 06-23-2023 Beta hCG Ql Negative Normal [facility] Comment on above: Performed By: #### 2 101558, [id number], 1161653, 23126355, 1570250, 4064235, 3690919 ####[facility] [address] [place] [address] BMPon 06-23-2023 Creatinine [Mass/Vol] 1.1 mg/dL Normal 0.5-1.3 [facility] Comment on above: Performed By: #### 2 917728, 61935934, 6211464, 46320938, 8742177, 9856737, 3304799 ####[facility] [address] [place] [address] Urea nitrogen [Mass/Vol] 17 mg/dL Normal 5-21 [facility] Comment on above: Performed By: #### 2 147590, 13261304, 6849729, 84478215, 9430141, 9075295, 1659030 ####[facility] [address] [place] [address] Urea nitrogen/Creatinine [Mass ratio] 16 No Units Normal 10-20 [facility] Comment on above: Performed By: #### 2 848220, 03286976, 2503149, 30860853, 7530304, 2219700, 0722519 ####[facility] [address] [place] [address] Anion gap [Moles/Vol] 9 mmol/L Normal 6-16 [facility] [facility] Comment on above: Performed By: #### 2 [id number], [id number], 3433034, 07879490, 8083739, 2902211, 1023186 ####[facility] [address] [place] [address] Calcium [Mass/Vol] 8.8 mg/dL Low 8.9-11.1 [facility] Comment on above: Performed By: #### 2 009956, [id number], 2024816, 73712497, 4465163, 6927408, 3435598 ####[facility] [address] [place] [address] Chloride [Moles/Vol] 111 mmol/L Normal 101-111 [facility] Comment on above: Performed By: #### 2 089695, [id number], 9966134, 04756488, 0841045, 5013216, 9358819 ####[facility] [address] [place] [address] CO2 [Moles/Vol] 18 mmol/L Low 21-31 [facility] Comment on above: Performed By: #### 2 540339, 35460298, 8117871, 94186108, 1902124, 6500941, 1306486 ####[facility] [address] [place] [address] Glucose [Mass/Vol] 142 mg/dL Normal 55-199 [facility] Comment on above: Result Comment: If t his glucose result represents a fasting glucose, interpretation should refer to the following reference range: 55-99 mg/dL Performed By: #### 2 087791, 61342367, 6839467, 16931080, 4023998, 3929075, 6032109 ####[facility] [address] [place] [address] Potassium [Moles/Vol] 3.9 mmol/L Normal 3.5-5.3 [facility] Comment on above: Performed By: #### 2 587963, 52649754, 3986499, 85974247, 5214719, 2187633, 3494420 ####[facility] [address] [place] [address] Sodium [Moles/Vol] 134 mmol/L Low 135-145 [facility] Comment on above: Performed By: #### 2 980685, 70895157, 9763507, 63561955, 8339248, 8469694, 0019913 ####[facility] [address] [place] [address] CBC w/ Auto Diffon 3 Erythrocyte distribution width (RBC) [Ratio] 12.3 % Normal 10.9-14.2 [facility] Comment on above: Performed By: #### 2 452730, 93801177, 4357363, 67800713, 9697258, 7069809, 0797726 #### [facility] [address] [place] [address] Hematocrit (Bld) [Volume fraction] 38.3 % Normal 34.0-46.0 [facility] Comment on above: Performed By: #### 2 987478, 78704315, 1230433, 50311698, 4801405, 6590631, 4245608 #### [facility] [address] [place] [address] Hemoglobin (Bld) [Mass/Vol] 13.1 g/dL Normal 12.0-16.0 [facility] Comment on above: Performed By: #### 2 131295, 85368914, 9929804, 36336759, 2832782, 8193705, 3742746 #### [facility] [address] [place] [address] MCH (RBC) [Entitic mass] 31.4 pg Normal 27.0-34.0 [facility] Comment on above: Performed By: #### 2 753249, 90450688, 8281260, 43462568, 4275666, 2227700, 3878605 #### [facility] [address] [place] [address] MCHC (RBC) [Mass/Vol] 34.2 g/dL Normal 31.4-36.0 [facility] Comment on above: Performed By: #### 2 455863, 45450787, 1785865, 27349853, 3088660, 6332010, 8491459 #### [facility] [address] [place] [address] MCV (RBC) [Entitic vol] 91.8 fL Normal 80.0-100.0 [facility] Comment on above: Performed By: #### 2 105020, 32932006, 2155354, 87687228, 0518781, 5523865, 4254268 #### [facility] [address] [place] [address] Platelet mean volume (Bld) [Entitic vol] 8.8 fL Normal 6.4-10.8 [facility] Comment on above: Performed By: #### 2 230786, 98538342, 4641724, 48768201, 6578083, 3397044, 6367477 #### [facility] [address] [place] [address] Platelets (Bld) [#/Vol] 201.0 E9/L Normal 150.0-500.0 [facility] Comment on above: Performed By: #### 2 622142, 99286946, 3065219, 37566220, 4678661, 1778830, 4645882 #### [facility] [address] [place] [address] RBC (Bld) [#/Vol] 4.2 E12/L Low 4.3-5.9 [facility] Comment on above: Performed By: #### 2 217786, 58904680, 2465219, 70115377, 5285740, 4184079, 1596612 #### [facility] [address] [place] [address] WBC corrected for nucl RBC Auto (Bld) [#/Vol] 6.9 E9/L Normal 4.0-11.0 [facility] Comment on above: Performed By: #### 2 634587, 90766252, 2658070, 77706350, 5091607, 1523500, 5198523 #### [facility] [address] [place] [address] CHEMISTRYOrdered By: SYSTEM SYSTEM on 06-23-2023 Albumin [Mass/Vol] 3.5 g/dL Normal 3.3 - 5.0 gm/dL [facility] Albumin/Globulin [Mass ratio] 1.1 {ratio} Normal 1.1 - 2.2 [facility] ALP [Catalytic activity/Vol] 77 [iU]/d Normal 21 - 98 Int._Unit/L [facility] ALT No additional P-5'-P [Catalytic activity/Vol] 17 [iU]/d Normal 6 - 46 Int._Unit/L [facility] AST [Catalytic activity/Vol] 22 [iU]/d Normal 5 - 43 Int._Unit/L [facility] Bilirubin [Mass/Vol] 0.5 mg/dL Normal 0.0 - 1.1 mg/dL [facility] Bilirubin.direct [Mass/Vol] 0.2 mg/dL Normal 0.1 - 0.4 mg/dL [facility] Bilirubin.indirect [Mass or moles/Vol] 0.3 mg/dL Normal 0.1 - 0.9 mg/dL [facility] Creatinine [Mass/Vol] 1.1 mg/dL Normal 0.5 - 1.3 mg/dL [facility] GFR/1.73 sq M.predicted among non-blacks MDRD (S/P/Bld) [Vol rate/Area] 68 mL/min/1.73 m2 Normal >=59mL/min/ 1.73 m2 [facility] S Comment on above: Interpretive Data: C hronic kidney disease could be indicated at eGFR's of less than 60 mL/min/1.73m2. Kidney failure is indicated at less than 15 mL/min/1.73m2. Globulin (S) [Mass/Vol] 3.3 g/dL Normal 1.4 - 4.0 gm/dL [facility] Protein [Mass/Vol] 6.8 g/dL Normal 6.0 - 7.8 gm/dL [facility] Urea nitrogen [Mass/Vol] 17 mg/dL Normal 5 - 21 mg/dL [facility] Urea nitrogen/Creatinine [Mass ratio] 16 mg/mg Normal 10 - 20 [facility] Anion gap [Moles/Vol] 9 mmol/L Normal 6 - 16 mEq/L [facility] Calcium [Mass/Vol] 8.8 mg/dL Low 8.9 - 11. 1 mg/dL [facility] Chloride [Moles/Vol] 111 mmol/L Normal 101 - 111 mmol/L [facility] CO2 [Moles/Vol] 18 mmol/L Low 21 - 31 mmol/L [facility] Glucose [Mass/Vol] 142 mg/dL Normal 55 - 199 mg/dL [facility] Comment on above: Interpretive Data: I f this glucose result represents a fasting glucose, interpretation should refer to the following reference range: 55-99 mg/dL Lipase [Catalytic activity/Vol] 28 U/L Normal 13 - 58 unit/L [facility] Potassium [Moles/Vol] 3.9 mmol/L Normal 3.5 - 5.3 mmol/L [facility] Sodium [Moles/Vol] 134 mmol/L Low 135 - 145 mmol/L [facility] Consent for Treatmenton 06-08 Consent for Treatment [id number] Normal [facility] Discharge Instructionson Discharge Instructions [id number] Normal [facility] ED Clinical Summaryon 2022 ED Clinical Summary (Inserted Image. Zenaida ble to display) [address] [address] ED Clinical Summary Person Information Name: AZUL ONTIVEROS Vilma/[facility] Age: 32 Years : 1990 Sex: Female Language: Romanian PCP: TEZ ANGEL MD Marital Status: Single Visit Id: Visit Reason: Nausea; Abdominal pain; Shortness of breath; Chest pain; SOB, CHEST PAIN Speciality: Acuity: 3 Enc Type: Emergency Med Service: Emergency Arrival: 06/23/2023 09:19:14 Discharge: 06/23/2023 12:53:46 LOS: 000 03:34 Checkin: 06/23/2023 09:19:14 Checkout: 06/23/2023 12:53:46 Dispo Type: Home (Routine DC) EVENTS: Event Name Event Status Request Date/Time Start Date/Time Complete Date/Time Arrive Complete 06/23/2023 09:19:14 06/23/2023 09:19:14 06/23/2023 09:19:14 Document Home Meds Request 06/23/2023 09:19:14 Triage Complete 06/23/2023 09:19:14 06/23/2023 09:28:56 06/23/2023 09:28:56 Bed Assign Complete 06/23/2023 09:23:13 06/23/2023 09:23:13 06/23/2023 09:23:13 Dr Exam Complete 06/23/2023 09:23:13 06/23/2023 09:28:51 06/23/2023 09:28:51 RN Exam Complete 06/23/2023 09:23:13 06/23/2023 09:32:55 06/23/2023 09:32:55 Registration Complete 06/23/2023 09:23:55 06/23/2023 09:23:55 06/23/2023 09:23:55 Reg Complete Request 06/23/2023 09:23:55 Reg Bed Request Complete 06/23/2023 09:23:55 06/23/2023 09:23:55 06/23/2023 09:23:55 EKG Complete 06/23/2023 09:24:10 06/23/2023 09:30:40 Registration Request 06/23/2023 09:28:51 Dr Exam Complete 06/23/2023 09:29:42 06/23/2023 09:29:42 06/23/2023 09:29:42 Meds Admin Complete 06/23/2023 09:40:39 06/23/2023 10:00:14 Pending Labs Complete 06/23/2023 09:40:39 06/23/2023 12:00:35 Lab Complete 06/23/2023 09:40:39 06/23/2023 12:00:35 Urine Collect Complete 06/23/2023 09:40:39 06/23/2023 12:00:35 X-Ray Complete 06/23/2023 09:40:39 06/23/2023 10:24:47 06/23/2023 10:31:27 Pending Labs Complete 06/23/2023 09:45:52 06/23/2023 09:45:52 06/23/2023 10:10:48 Lab Complete 06/23/2023 09:45:52 06/23/2023 09:45:52 06/23/2023 10:10:48 Pending Labs Complete 06/23/2023 09:46:21 06/23/2023 09:46:21 06/23/2023 09:46:22 Pending Labs Complete 06/23/2023 09:55:51 06/23/2023 09:55:51 06/23/2023 09:56:01 Lab Complete 06/23/2023 09:55:51 06/23/2023 09:55:51 06/23/2023 09:56:01 Pending Labs Complete 06/23/2023 10:10:47 06/23/2023 10:10:47 06/23/2023 10:10:47 Wet Read Complete 06/23/2023 10:31:27 06/23/2023 10:56:40 06/23/2023 10:56:40 Discharge Complete 06/23/2023 12:35:43 06/23/2023 12:53:50 06/23/2023 12:53:50 Transfer Complete 06/23/2023 12:53:50 06/23/2023 12:53:50 06/23/2023 12:53:50 ADDRESS: [address] [id number] PHYS DOC NOTES: MEDICAL INFORMATION: Prescriptions Given: New Medications Printed Prescriptions sucralfate (Carafate 1 g/10 mL Susp-Oral) 10 Milliliter By Mouth 4 times a day for 7 Days. Refills: 0. Medications to Continue with No Changes Other Medications cholecalciferol (Vitamin D3 2000 intl units oral Tab) 1 Tablets By Mouth every day. furosemide (Lasix 40 mg Tab) 1 Tablets By Mouth every day as needed Edema. levothyroxine (Levoxyl 75 mcg (0.075 mg) oral tablet) 1 Tablets By Mouth every day. ondansetron (Zofran ODT 4 mg Tab) 1 Tablets By Mouth every 6 hours as needed Nausea/Vomiting. pantoprazole (Protonix 40 mg Tab-DR) 1 Tablets By Mouth every day. Refills: 1. potassium chloride (potassium chloride 20 mEq ER Tab) 1 Tablets By Mouth every day. tramadol (tramadol 50 mg oral tablet) 1 Tablets By Mouth every 6 hours as needed for pain. PATIENT EDUCATION INFORMATION: Instructions: Gastritis, Adult Follow up: With: Address: When: Michael Patino [address], [address], [address] [phone] Business (1) In 3 days 06/26/2023 With: Address: When: TEZ ANGEL [address] [place], [place] [phone] Business (1) In 3 days 06/26/2023 DIAGNOSIS: Gastritis Normal [facility] ED Note-Physicianon 06-23-20 ED Note-Physician Basic Information Time Seen: Alexx Pena DO 06/23/2023 09:28 Chief Complaint Patient presents with leta pain that radiates down into upper abd that started this monring at 4AM History of Present Illness 32-year-old female comes to the ED for evaluation of abdominal pain. The patient woke with epigastric abdominal pain that radiates up into her chest. She has a history of GERD with similar symptoms. She had some nausea but no vomiting. No fever or chills. No cough or congestion. She took Nexium with some improvement. She takes Protonix regularly. She had previous abdominal exploratory laparotomy. No concern for . No urinary symptoms. No diarrhea constipation. Review of Systems A 10 point review of systems is negative except as noted above. Medical and Surgical History: Reviewed and noted Social history: Lives at home Tobacco: Denies Physical Exam Vitals & Measurements T: 36.8 ?C(Oral) HR: 79(Monitored) RR: 24 BP: 91/68 SpO2: 100% HT: 157.48 cm WT: 129.8 kg BMI: 52.34 Nurses notes and vital signs reviewed and patient is not hypoxic. General: The patient appears well, resting comfortably. Skin: Warm, dry. Head: Atraumatic. Neck: No JVD. Eye: Normal conjunctiva. Ears, Nose, Mouth, and Throat: Moist mucous membranes. Cardiovascular: Strong distal pulses. Chest wall: Respiratory: Respirations are nonlabored. Back: Normal range of motion. Musculoskeletal: Normal ROM with no gross deformity. Gastrointestinal: Abdomen is soft throughout. There is mild epigastric tenderness. No guarding, rebound or rigidity. Negative Campoverde's. Urological: Neurological: Awake and alert. No focal deficits. Follows commands. Psychiatric: Cooperative. Medical Decision Making Laboratory studies reviewed and noted. Chest x-ray with no acute findings. Patient was treated here with GI cocktail and IV Pepcid at reevaluation she is feeling much improved. Likely gastritis is discussed. She is started on Carafate and is given GI referral. Patient was encouraged to return to the ED if symptoms worsen or change. Assessment/Plan Gastritis (K29.70: Gastritis, unspecified, without bleeding) Orders: Al hydroxide/Mg hydroxide/simethicone, 30 mL, Susp-Oral, Oral, Once, Stop date 06/23/23 9:40:00 EDT, STAT, Start date 06/23/23 9:40:00 EDT atropine/hyoscyamine/PB/sc opolamine, 10 mL, Elixir, Oral, Once, Stop date 06/23/23 9:40:00 EDT, STAT, Start date 06/23/23 9:40:00 EDT famotidine, 20 mg = 2 mL, Soln-IV, IV Push, Once, Stop date 06/23/23 9:40:00 EDT, STAT, Start date 06/23/23 9:40:00 EDT, 06/23/23 9:40:00 EDT Sodium Chloride 0.9% intravenous solution, 1,000 mL, Soln-IV, IV, Once, Stop date 06/23/23 9:40:00 EDT, STAT, Start date 06/23/23 9:40:00 EDT, Infuse over 61, minute(s) sucralfate, 1 gram = 10 mL, Oral, QID, X 7 day(s), # 280 mL, Refills(s) 0 Automated Diff Basic Metabolic Panel Beta hCG Qual CBC w/ Auto Diff eGFR Extra Blue Tube Extra Green Li Tube Hepatic Function Panel Lipase Level UA With Cult Reflex XR Chest Single View Medications Administered Given Al hydroxide/Mg hydroxide/simethicone 200 mg-200 mg-20 mg/5 mL oral suspension, 30 mL, Oral Elixir, 10 mL, Oral famotidine 10 mg/mL IV Carolin, 20 mg, IV Push NS 1000 ml Bolus, 1000 mL, IV Disposition Plan Patient Discharge Condition Disposition: Discharged home Condition: Improved and stable Counseled: Patient and/or family were counseled to workup, results, treatment plan and follow-up recommendations Discharge Prescription List Prescriptions Carafate 1 g/10 mL Susp-Oral, 1 gm= 10 mL, Oral, QID Follow-up With When Contact Information Michael Patino In 3 days 06/26/2023 EDT [address], [address] [phone] Business (1) Additional Instructions: TEZ ANGEL In 3 days 06/26/2023 EDT [address] [place] [address] Business (1) Additional Instructions: Patient Education Gastritis, Adult Attestation Patient seen and evaluated by the physician assistant paralegal. Attending physician was present in the emergency department and supervised care. This visit was performed by both the physician and an APC. I performed all aspects of the MDM as documented. This report was transcribed using voice recognition software. Every effort was made to ensure accuracy, however, inadvertently computerized program management manager mistakes may be present. Appropriate healthcare PPE was used in evaluating this patient. The patient was placed in a mask. The healthcare provider was wearing mask, gloves, and utilizing proper hand hygiene. All equipment was properly cleansed. 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 Normal [facility] Comment on above: Result Comment: Elec tronically Signed By: Alban Givens PA-C\.br\Date and Time Signed: 06/23/23 13:46 EDT\.br\Electronically Co-Signed By: Alexx Pena DO\.br\Date and Time Co-Signed: 06/23/23 18:37 EDT ED Patient Education Noteon 06-23-2023 ED Patient Education Note Infectious Disease Gastritis, Adult Gastritis is inflammation of the stomach. There are two kinds of gastritis: ? Acute gastritis. This kind develops suddenly. ? Chronic gastritis. This kind is much more common. It develops slowly and lasts for a long time. Gastritis happens when the lining of the stomach becomes weak or gets damaged. Without treatment, gastritis can lead to stomach bleeding and ulcers. What are the causes? This condition may be caused by: ? An infection. ? Drinking too much alcohol. ? Certain medicines. These include steroids, antibiotics, and some naew-ubv-ueoofen medicines, such as aspirin or ibuprofen. ? Having too much acid in the stomach. ? Having a disease of the stomach. Other causes may include: ? An allergic reaction. ? Some cancer treatments (radiation). ? Smoking cigarettes or the use of products that contain nicotine or tobacco. In some cases, the cause of this condition is not known. What increases the risk? ? Having a disease of the intestines. ? Having a disease in which the body's immune system attacks the body (autoimmune disease), such as Crohn's disease. ? Using aspirin or ibuprofen and other NSAIDs to treat other conditions, such as heart disease or chronic pain. ? Stress. What are the signs or symptoms? Symptoms of this condition include: ? Pain or a burning sensation in the upper abdomen. ? Nausea. ? Vomiting. ? An uncomfortable feeling of fullness after eating. ? Weight loss. ? Bad breath. ? Blood in your vomit or stool (feces). In some cases, there are no symptoms. How is this diagnosed? This condition may be diagnosed based on your medical history, a physical exam, and tests. Tests may include: ? Your medical history and a description of your symptoms. ? A physical exam. ? Tests. These can include: ? Blood tests. ? Stool tests. ? A test in which a thin, flexible instrument with a light and a camera is passed down the esophagus and into the stomach (upper endoscopy). ? A test in which a tissue sample is removed to look at it under a microscope (biopsy). How is this treated? This condition may be treated with medicines. The medicines that are used vary depending on the cause of the gastritis. ? If the condition is caused by a bacterial infection, you may be given antibiotic medicines. ? If the condition is caused by too much acid in the stomach, you may be given medicines called H2 blockers, proton pump inhibitors, or antacids. Treatment may also involve stopping the use of certain medicines such as aspirin or ibuprofen and other NSAIDs. Follow these instructions at home: Medicines ? Take yuuc-cku-hlaafyk and prescription medicines only as told by your health care provider. ? If you were prescribed an antibiotic medicine, take it as told by your health care provider. Do not stop taking the antibiotic even if you start to feel better. Alcohol use ? Do not drink alcohol if: ? Your health care provider tells you not to drink. ? You are , may be , or are planning to become . ? If you drink alcohol: ? Limit your use to: ? 0?1 drink a day for women. ? 0?2 drinks a day for men. ? Know how much alcohol is in your drink. In the [place] one drink equals one 12 oz bottle of beer (355 mL), one 5 oz glass of wine (148 mL), or one 1? oz glass of hard liquor (44 mL). General instructions ? Eat small, frequent meals instead of large meals. ? Avoid foods and drinks that make your symptoms worse. ? Talk with your health care provider about ways to manage stress, such as getting regular exercise or practicing deep breathing, meditation, or yoga. ? Do not use any products that contain nicotine or tobacco. These products include cigarettes, chewing tobacco, and vaping devices, such as e-cigarettes. If you need help quitting, ask your health care provider. ? Drink enough fluid to keep your urine pale yellow. ? Keep all follow-up visits. This is important. Contact a health care provider if: ? Your symptoms get worse. ? Your abdominal pain gets worse. ? Your symptoms return after treatment. ? You have a fever. Get help right away if: ? You vomit blood or a substance that looks like coffee grounds. ? You have black or dark red stools. ? You are unable to keep fluids down. These symptoms may represent a serious problem that is an emergency. Do not wait to see if the symptoms will go away. Get medical help right away. Call your local emergency services (911 in the [place] Do not drive yourself to the hospital. Summary ? Gastritis is inflammation of the lining of the stomach that can occur suddenly (acute) or develop slowly over time (chronic). ? This condition is diagnosed with a medical history, a physical exam, or tests. ? This condition may be treated with medicines to treat infection or medicines to reduce the amount of acid in your stom (more content not included)... Normal [facility] ED Patient Summaryon 023 ED Patient Summary (Inserted Image. Zenaida ble to display) [place] [id number] Patient Discharge Instructions Person Information Name: AZUL ONTIVEROS Age: 32 Years Arrival Date: 06/23/2023 09:19:14 Discharge Diagnosis: Gastritis Primary Care Physician: TEZ ANGEL MD Provider Information Primary Provider: Alexx Pena DO Advanced Magnetic Locater:Alban Givens PA-C The exam and treatment you received in the Emergency Department were for an urgent problem and are not intended as complete care. It is important that you follow up with a doctor, nurse practitioner, or physician?s assistant paralegal for ongoing care. If your symptoms become worse or you do not improve as expected and you are unable to reach your usual health care provider, you should return to the Emergency Department. We are available 24 hours a day. PRINCE AZUL ALLEN has been given the following list of patient education materials, prescriptions and follow-up instructions: Follow-up Instructions: With: Address: When: [address], [address], [address] [phone] Business (1) In 3 days 06/26/2023 With: Address: When: TEZ ANGEL [address] [place] [phone] Business (1) In 3 days 06/26/2023 In the event that this physician does not participate in your insurance network, please consult with your insurance company to find a nearby participating provider. Patient Education Materials: Gastritis, Adult A MESSAGE TO ALL PATIENTS REGARDING OPIOIDS PRESCRIPTION OPIOIDS: WHAT YOU NEED TO KNOW Prescription opioids can be used to help relieve aoalvfoy-cn-bgbatk pain and are often prescribed following a surgery or injury, or for certain health conditions. These medications can be an important part of the treatment but also come with serious risks. It is important to work with your healthcare provider to make sure you are getting the safest, most effective care. WHAT ARE THE RISKS AND SIDE EFFECTS OF OPIOID USE? Prescription opioids carry serious risks of addiction and overdose, especially with prolonged use. An opioid overdose, often marked by slowed breathing, can cause sudden . The use of prescription opioids can have a number of side effects as well, even when taken as directed: ? Tolerance?meaning you might need to take more of the medication for the same pain relief ? Physical dependence?meaning you have symptoms of withdrawal when a medication is stopped ? Increased sensitivity to pain ? Constipation ? Nausea, vomiting, and dry mouth ? Sleepiness and dizziness ? Confusion ? Depression ? Low levels of testosterone that can result in lower sex drive, energy, and strength ? Itching and sweating RISKS ARE GREATER WITH: ? History of drug misuse, substance use disorder, or overdose ? Mental health conditions (such as depression or anxiety) ? Sleep apnea ? Older age (65 years and older) ? Avoid alcohol while taking prescription opioids. Also, unless specifically advised by your health care provider, medications to avoid include: ? Benzodiazepines (such as Xanax or Valium) ? Muscle relaxants (such as Soma or Flexeril) ? Hypnotics (such as Ambien or Lunesta) ? Other prescription opioids KNOW YOUR OPTIONS Talk to your health care provider about ways to manage your pain that don?t involve prescription opioids. Some of these options may actually work better and have fewer risks and side effects. Options may include: ? Pain relievers such as acetaminophen, ibuprofen, and naproxen ? Some medication that are also used for depression or seizures ? Physical therapy and exercise ? Cognitive behavioral therapy, a psychological, goal-directed approach, in which patients learn how to modify physical, behavioral, and emotional triggers of pain and stress. IF YOU ARE PRESCRIBED OPIOIDS FOR PAIN: ? Never take opioids in greater amounts or more often than prescribed. ? Follow up with your primary health care provider. o Work together to create a plan on how to manage your pain. o Talk about ways to help manage your pain that don?t involve prescription opioids. o Talk about any and all concerns and side effects. ? Help prevent misuse and abuse o Never sell or share prescription opioids. o Never use another person?s prescription opioids. ? Store prescription opioids in a secure place and out of reach of others (this may include visitors, children, friends, and family). ? Safely dispose of unused prescription opioids: Find your community drug take-back program or your pharmacy mail-back program, or flush them down the toilet, following guidance from the Food and Drug Administration (www.fda.gov/Drugs/Resourc esForYou). ? Visit www.cdc.gov/drugoverdose to learn about the risks of opioids abuse and overdose. ? If you believe you may be struggling wit (more content not included)... Normal [facility] HEMATOLOGYOrdered By: SYSTEM SYSTEM on 06-23-2023 Basophils/100 WBC (Bld) 0.4 % Normal 0.0 - 2.0 % [facility] HemeAutoSS Basophils/Leukocyte s Auto (Bld) [Pure # fraction] 0.0 E9/L Normal 0.0 - 0.2 E9/L [facility]eAutoSS Eosinophils/100 WBC (Bld) 0.6 % Normal 0.0 - 8.0 % [facility] HemeAutoSS Eosinophils/Leukocy dmitry Auto (Bld) [Pure # fraction] 0.0 E9/L Normal 0.0 - 0.5 E9/L [facility] Lymphocytes/100 WBC (Bld) 13.9 % Low 14.0 - 50.0 % [facility] HemeAutoSS Lymphocytes/Leukocy dmitry Auto (Bld) [Pure # fraction] 1.0 E9/L Normal 1.0 - 4.0 E9/L [facility]eAuto[facility] Monocytes/100 WBC (Bld) 5.5 % Normal 4.0 - 14.0 % [facility] HemeAutoSS Monocytes/Leukocyte s Auto (Bld) [Pure # fraction] 0.4 E9/L Normal 0.2 - 1.0 E9/L [facility]AutoSS Neutrophils/100 WBC (Bld) 79.6 % High 36.0 - 75.0 % [facility] HemeAutoSS Neutrophils/Leukocy dmitry Auto (Bld) [Pure # fraction] 5.5 E9/L Normal 2.0 - 7.5 E9/L [facility]eAuto[facility] HEMATOLOGYOrdered By: Dinorah Ruiz on 06-23-2023 Erythrocyte distribution width (RBC) [Ratio] 12.3 % Normal 10.9 - 14.2 % [facility]eAuto[facility] Hematocrit (Bld) [Volume fraction] 38.3 % Normal 34.0 - 46.0 % [facility]Auto[facility] Hemoglobin (Bld) [Mass/Vol] 13.1 g/dL Normal 12.0 - 16.0 gm/dL [facility] MCH (RBC) [Entitic mass] 31.4 pg Normal 27.0 - 34.0 pg [facility] MCHC (RBC) [Mass/Vol] 34.2 g/dL Normal 31.4 - 36.0 gm/dL [facility] MCV (RBC) [Entitic vol] 91.8 fL Normal 80.0 - 100.0 fL [facility] Platelet mean volume (Bld) [Entitic vol] 8.8 fL Normal 6.4 - 10.8 fL [facility]eAuto[facility] Platelets (Bld) [#/Vol] 201.0 E9/L Normal 150.0 - 500.0 E9/L [facility]Auto[facility] RBC (Bld) [#/Vol] 4.2 E12/L Low 4.3 - 5.9 E12/L [facility] WBC corrected for nucl RBC Auto (Bld) [#/Vol] 6.9 E9/L Normal 4.0 - 11.0 E9/L [facility] Hep Func Panelon 06-23-2023 Albumin [Mass/Vol] 3.5 g/dL Normal 3.3-5.0 [facility] Comment on above: Performed By: #### 2 [id number], [id number], 8001672, 91701761, 0216963, 6199029, 2373847 ####[address] [address] Albumin/Globulin (S) [Mass conc ratio] 1.1 Normal 1.1-2.2 [facility] Comment on above: Performed By: #### 2 557308, [id number], 1864126, 15328776, 3800307, 3550028, 1421491 ####[facility] [address] [place] [address] ALP [Catalytic activity/Vol] 77 Int._Unit/L Normal 21-98 [facility] Comment on above: Performed By: #### 2 255955, 50526065, 8306514, 51397246, 2307864, 3068080, 2597841 ####[address] [address] ALT No additional P-5'-P [Catalytic activity/Vol] 17 Int._Unit/L Normal 6-46 [facility] Comment on above: Performed By: #### 2 464266, 34051888, 0052968, 98038715, 4129520, 6318478, 3558854 ####[address] [address] AST [Catalytic activity/Vol] 22 Int._Unit/L Normal 5-43 [facility] Comment on above: Performed By: #### 2 516954, 88668961, 3274924, 99510726, 4982217, 3325967, 5067351 ####[address] [place] [address] Bilirubin [Mass/Vol] 0.5 mg/dL Normal 0.0-1.1 [facility] Comment on above: Performed By: #### 2 725997, 16678893, 3363049, 96341452, 6000954, 6756698, 1154715 ####[address] [place] [address] Bilirubin.direct [Mass/Vol] 0.2 mg/dL Normal 0.1-0.4 [facility] Comment on above: Performed By: #### 2 310734, 39218739, 8296826, 61630575, 3330975, 4285777, 6911726 ####[facility] [address] [place] [address] Bilirubin.indirect [Mass or moles/Vol] 0.3 mg/dL Normal 0.1-0.9 [facility] Comment on above: Performed By: #### 2 313925, 71207588, 8326260, 55303609, 8514975, 6386520, 6025738 ####[address] [address] Globulin (S) [Mass/Vol] 3.3 g/dL Normal 1.4-4.0 [facility] Comment on above: Performed By: #### 2 729225, 58611500, 9819361, 46193693, 8010730, 2229352, 6702638 ####[address] [address] Protein [Mass/Vol] 6.8 g/dL Normal 6.0-7.8 [facility] Comment on above: Performed By: #### 2 693758, 99330930, 1748111, 11072871, 2250742, 6243395, 2262621 ####[address] [address] Lipase Levelon 06-23-2023 Lipase [Catalytic activity/Vol] 28 U/L Normal 13-58 [facility] Comment on above: Performed By: #### 2 288813, 05471803, 8725976, 12032629, 3508406, 1576492, 3099402 ####[facility] [address] [place] [address] SEROLOGYOrdered By: Tami Randle on 06-23-2023 Beta hCG Ql Negative (06/23/23 10:07 AM) Normal [facility] Man Sero UA With Cult Reflexon 2022 Bacteria LM Ql (Urine sed) TRACE Normal Trace [facility] Comment on above: Performed By: #### 1 [id number] ####[facility] [address] [facility] [place] [address] Bilirubin Ql (U) Negative Normal Negative [facility] Comment on above: Performed By: #### 1 8459183 ####[facility] [address] [place] [address] Clarity (U) SL CLOUDY Invalid Interpretation Code [facility] Comment on above: Performed By: #### 1 [id number] ####[facility] [address] [place] [address] Color (U) RED Abnormal Yellow [facility] Comment on above: Performed By: #### 1 6980341 ####[address] [place] [address] Epithelial cells.squamous LM.HPF (Urine sed) [#/Area] 3-4 Normal 0-2 [facility] Comment on above: Performed By: #### 1 1918859 ####[facility] [address] [facility] [place] [address] Glucose Test strip (U) [Mass/Vol] Negative Normal Negative [facility] Comment on above: Performed By: #### 1 1560436 ####[facility] [address] [facility] [place] [address] Hemoglobin Ql (U) 3+ Abnormal Negative [facility] Comment on above: Performed By: #### 1 2216030 ####[facility] [address] [place] [address] Ketones (U) [Mass/Vol] Negative Normal Negative [facility] Comment on above: Performed By: #### 1 0642699 ####[facility] [address] [place] [address] Java.plasma/Lith ium.RBC (Bld) [Mass ratio] >75 Abnormal 0-3 [facility] Comment on above: Performed By: #### 1 4445459 ####[address] [address] Mucus Ql (Urine sed) TRACE Normal [facility] Comment on above: Performed By: #### 1 3379201 ####[address] [address] Nitrite Ql (U) Negative Normal Negative [facility] Comment on above: Performed By: #### 1 2986795 ####[address] [address] pH (U) 6.0 [pH] Invalid Interpretation Code 5.0-9.0 [facility] Comment on above: Performed By: #### 1 [id number] ####[address] [address] Protein (U) [Mass/Vol] 1+ Abnormal Negative [facility] Comment on above: Performed By: #### 1 9839156 ####[address] [address] Specific gravity (U) [Rel density] <=1.005 Invalid Interpretation Code 1.005-1.030 [facility] Comment on above: Performed By: #### 1 2314313 ####[address] [address] Type of Urine collection method Clean Catch Normal [facility] Comment on above: Performed By: #### 1 0176045 ####[address] [address] Urobilinogen Qn (U) 0.2 {Stevenson'U}/dL Normal 0.0-1.0 [facility] Comment on above: Performed By: #### 1 7106440 ####[address] [address] WBC Auto Ql (U) Negative Normal Negative [facility] Comment on above: Performed By: #### 1 9136952 ####[address] [address] WBC LM.HPF (Urine sed) [#/Area] 0-5 Normal 0-5 [facility] Comment on above: Performed By: #### 1 7570215 ####[facility] [address] [place] [address] URINALYSISOrdered By: Dinorah Randle on 06-23-2023 Bacteria LM Ql (Urine sed) Trace /HPF Normal Trace/HPF [facility] UA Auto SS Bilirubin Ql (U) Negative (06/23/23 11:23 AM) Normal Negative [facility] UA Auto SS Clarity (U) SL CLOUDY Invalid Interpretation Code [facility] UA Auto SS Color (U) Red *ABN* (06/23/23 11:23 AM) Invalid Interpretation Code Yellow [facility] UA Auto SS Epithelial cells.squamous LM.HPF (Urine sed) [#/Area] 3-4 /HPF Normal 0-2/HPF [facility] UA Auto SS Glucose Test strip (U) [Mass/Vol] Negative (06/23/23 11:23 AM) Normal Negative [facility] UA Auto SS Hemoglobin Ql (U) 3+ *ABN* (06/23/23 11:23 AM) Invalid Interpretation Code Negative [facility] UA Auto SS Ketones (U) [Mass/Vol] Negative (06/23/23 11:23 AM) Normal Negative [facility] UA Auto SS Java.plasma/Lith ium.RBC (Bld) [Mass ratio] >75 /HPF Invalid Interpretation Code 0-3/HPF [facility] UA Auto SS Mucus Ql (Urine sed) Trace (06/23/23 11:23 AM) Normal [facility] UA Auto SS Nitrite Ql (U) Negative (06/23/23 11:23 AM) Normal Negative [facility] UA Auto SS pH (U) 6.0 *NA* (06/23/23 11:23 AM) Invalid Interpretation Code 5.0 - 9.0 [facility] UA Auto SS Protein (U) [Mass/Vol] 1+ *ABN* (06/23/23 11:23 AM) Invalid Interpretation Code Negative [facility] UA Auto SS Specific gravity (U) [Rel density] <=1.005 *NA* (06/23/23 11:23 AM) Invalid Interpretation Code 1.005 - 1.030 [facility] UA Auto SS UA Spec Desc Clean Catch (06/23/23 11:23 AM) Normal [facility] UA Auto SS Urobilinogen Qn (U) 0.1320858 {Stevenson'U}/dL Normal 0.0 - 1.0 EU/dL [facility] UA Auto SS WBC Auto Ql (U) Negative (06/23/23 11:23 AM) Normal Negative [facility] UA Auto SS WBC LM.HPF (Urine sed) [#/Area] 0-5 /HPF Normal 0-5/HPF [facility] UA Auto SS XR Chest Single Viewon 06-23 XR Chest Single View Exam Date/Time: 06/23/2023 10:31 EDT Reason for Exam: Chest pain Report IMPRESSION: There are no acute cardiopulmonary changes. CLINICAL HISTORY: Chest pain EXAMINATION: XR Chest Single View COMPARISON: FINDINGS: The cardiomediastinal silhouette is unremarkable. The lungs are free of infiltrates effusions or consolidations. There are no acute osseous changes. Ordering Provider: Alban Givens FINAL REPORT Dictated: 06/23/2023 10:46 am Bassam Snowden MD, V. Signed (Electronic Signature): 06/23/2023 10:46 am Signed by: Bassam Snowden MD, V. Transcribed by: KARL Technologist: MARQUES Technical Comments Radiation Dose: Ka,r in mGy = na DAP = na Normal [facility] eGFRon 06-23-2023 GFR/1.73 sq M.predicted among non-blacks MDRD (S/P/Bld) [Vol rate/Area] 68 mL/min/1.73 m2 Normal >=59 [facility] Comment on above: Order Comment: Order added by Discern Expert. 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 Kidney failure is indicated at less than 15 mL/min/1.73m2. Performed By: #### 2 [id number], 54809305, 5057565, 27307162, 7649343, 8403944, 3912871 ####[facility] [address] [place] [address] TSHon 01-09-2023 TSH 1.192 uIU/mL Normal 0.358-3.740 [facility] Comment on above: Performed By: #### T #### [facility] [address] [address] [address] Gage Mathis PAP ACOG PANEL 2: 30 to 65on 01-08-2023 . . Normal [facility] Comment on above: Result Comment: Perf ormed at: WB Performed By: #### L IVER, LIPID, TSH, FT3, BMP #### [facility] [address] [address] [address] Gage Mathis Age Gdln ACOG Testing 30-65 Normal [facility] Comment on above: Performed By: #### L IVER, LIPID, TSH, FT3, BMP #### [facility] [address] [place] [address] Dr. Gage Mathis DIAGNOSIS: Comment Normal [facility] Comment on above: Result Comment: NEGA TIVE FOR INTRAEPITHELIAL LESION OR MALIGNANCY. THIS SPECIMEN WAS RESCREENED PART OF OUR OVEREDGE MACHINE OPERATOR PROGRAM. Performed at: WB Performed By: #### L IVER, LIPID, TSH, FT3, BMP #### [facility] [address] [place] [address] Dr. Gage Mathis HPV Aptima Negative Normal Negative [facility] Comment on above: Result Comment: This nucleic acid amplification test detects fourteen high-risk HPV types (16,18,31,33,35,39,45,51,52,56,58,59,66,68) without differentiation. Performed at: =G Performed By: #### L IVER, LIPID, TSH, FT3, BMP #### [facility] [address] [place] [address] Dr. Gage Mathis HPV Genotype Reflex Comment Normal [facility] Comment on above: Result Comment: Crit eria not met, HPV Genotype not performed. Performed at: WB Performed By: #### L IVER, LIPID, TSH, FT3, BMP #### [facility] [address] [place] [address] Dr. Gage Mathis Methodology: Comment Normal [facility] Comment on above: Result Comment: This liquid based ThinPrep(R) pap test was screened with the use of an image guided system. Performed at: WB Performed By: #### L IVER, LIPID, TSH, FT3, BMP #### [facility] [address] [place] [address] Dr. Gage Mathis Note: Comment Normal [facility] Comment on above: Result Comment: The Pap smear is a screening test designed to aid in the detection of premalignant and malignant conditions of the uterine cervix. It is not a diagnostic procedure and should not be used as the sole means of detecting cervical cancer. Both false-positive and false-negative reports do occur. . Performed at: WB Performed By: #### L IVER, LIPID, TSH, FT3, BMP #### [facility] [address] [address] [address] Gage Mathis Performed by: Comment Normal [facility] Comment on above: Result Comment: Zoya Davis, Bedspread Cutter Hand (ASCP) Performed at: WB Performed By: #### L IVER, LIPID, TSH, FT3, BMP #### [facility] [address] [place] [address] Dr. Gage Mathis QC reviewed by: Comment Normal [facility] Comment on above: Result Comment: Clotilde Suresh, Supervisory Bedspread Cutter Hand (ASCP) Performed at: WB Performed By: #### L IVER, LIPID, TSH, FT3, BMP #### [facility] [address] [place] [address] Dr. Gage Mathis Specimen adequacy: Comment Normal [facility] Comment on above: Result Comment: Sati sfactory for evaluation. Endocervical and/or squamous metaplastic cells (endocervical component) are present. Performed at: WB Performed By: #### L IVER, LIPID, TSH, FT3, BMP #### [facility] [address] [place] [address] Dr. Gage Mathis CBC AUTO DIFFon 12-04-2022 BASO # 0.0 103/ul Normal 0.0-0.1 [facility] Comment on above: Performed By: #### L IVER, LIPID, TSH, FT3, BMP #### [facility] [address] [place] [address] Dr. Gage Mathis Basophils/100 WBC (Bld) 0.4 % Normal 0.2-2.0 [facility] Comment on above: Performed By: #### L IVER, LIPID, TSH, FT3, BMP #### [facility] [address] [place] [address] Dr. Gage Mathis EO # 0.1 103/ul Normal 0.0-0.7 [facility] Comment on above: Performed By: #### L IVER, LIPID, TSH, FT3, BMP #### [facility] [address] [place] [address] Dr. Gage Mathis Eosinophils/100 WBC (Bld) 1.3 % Normal 0.9-7.0 [facility] Comment on above: Performed By: #### L IVER, LIPID, TSH, FT3, BMP #### [facility] [address] [place] [address] Dr. Gage Mathis Erythrocyte distribution width (RBC) [Ratio] 12.4 % Normal 11.0-15.0 [facility] Comment on above: Performed By: #### L IVER, LIPID, TSH, FT3, BMP #### [facility] [address] [place] [address] Dr. Gage Mathis Hematocrit (Bld) [Volume fraction] 37.1 % Normal 36.0-48.0 [facility] Comment on above: Performed By: #### L IVER, LIPID, TSH, FT3, BMP #### [facility] [address] [place] [address] Dr. Gage Mathis Hemoglobin (Bld) [Mass/Vol] 12.1 g/dL Normal 12.0-16.0 [facility] Comment on above: Performed By: #### L IVER, LIPID, TSH, FT3, BMP #### [facility] [address] [place] [address] Dr. Gage Mathis IG # 0.01 10e3/ul Normal 0.00-0.03 [facility] Comment on above: Performed By: #### L IVER, LIPID, TSH, FT3, BMP #### [facility] [address] [place] [address] Dr. Gage Mathis IG % 0.2 % Normal 0.0-0.5 [facility] Comment on above: Performed By: #### L IVER, LIPID, TSH, FT3, BMP #### [facility] [address] [place] [address] Dr. Gage Mathis LYMPH # 1.6 103/ul Normal 1.2-3.8 [facility] Comment on above: Performed By: #### L IVER, LIPID, TSH, FT3, BMP #### [facility] [address] [place] [address] Dr. Gage Mathis Lymphocytes/100 WBC (Bld) 30.6 % Normal 20.5-60.0 [facility] Comment on above: Performed By: #### L IVER, LIPID, TSH, FT3, BMP #### [facility] [address] [place] [address] Dr. Gage Mathis MANUAL DIFF REQ NO Normal [facility] Comment on above: Performed By: #### L IVER, LIPID, TSH, FT3, BMP #### [facility] [address] [place] [address] Dr. Gage Mathis MCH (RBC) [Entitic mass] 31.8 pg Normal 26.7-34.0 [facility] Comment on above: Performed By: #### L IVER, LIPID, TSH, FT3, BMP #### [facility] [address] [place] [address] Dr. Gage Mathis MCHC (RBC) [Mass/Vol] 32.6 g/dL Normal 29.9-35.2 [facility] Comment on above: Performed By: #### L IVER, LIPID, TSH, FT3, BMP #### [facility] [address] [place] [address] Dr. Gage Mathis MCV (RBC) [Entitic vol] 97.4 fL Normal 81.0-99.0 [facility] Comment on above: Performed By: #### L IVER, LIPID, TSH, FT3, BMP #### [facility] [address] [place] [address] Dr. Gage Mathis MONO # 0.4 103/ul Normal 0.3-0.8 [facility] Comment on above: Performed By: #### L IVER, LIPID, TSH, FT3, BMP #### [facility] [address] [place] [address] Dr. Gage Mathis Monocytes/100 WBC (Bld) 8.4 % Normal 1.7-12.0 [facility] Comment on above: Performed By: #### L IVER, LIPID, TSH, FT3, BMP #### [facility] [address] [place] [address] Dr. Gage Mathis NEUT # 3.1 103/ul Normal 1.4-6.5 [facility] Comment on above: Performed By: #### L IVER, LIPID, TSH, FT3, BMP #### [facility] [address] [place] [address] Dr. Gage Mathis Neutrophils/100 WBC (Bld) 59.1 % Normal 43.0-75.0 [facility] Comment on above: Performed By: #### L IVER, LIPID, TSH, FT3, BMP #### [facility] [address] [place] [address] Dr. Gage Mathis Platelet mean volume (Bld) [Entitic vol] 10.1 fL Normal 9.5-13.5 [facility] Comment on above: Performed By: #### L IVER, LIPID, TSH, FT3, BMP #### [facility] [address] [place] [address] Dr. Gage Mathis PLT 205 103/ul Normal 150-450 [facility] Comment on above: Performed By: #### L IVER, LIPID, TSH, FT3, BMP #### [facility] [address] [place] [address] Dr. Gage Mathis RBC 3.81 106/ul Critically low 4.20-5.40 [facility] Comment on above: Performed By: #### L IVER, LIPID, TSH, FT3, BMP #### [facility] [address] [place] [address] Dr. Gage Mathis WBC 5.2 103/ul Normal 4.0-11.0 [facility] Comment on above: Performed By: #### L IVER, LIPID, TSH, FT3, BMP #### [facility] [address] [address] [address] Gage Mathis FREE T4on 12-04-2022 Free T4 [Mass/Vol] 0.98 ng/dL Normal 0.76-1.46 [facility] Comment on above: Performed By: #### L IVER, LIPID, TSH, FT3, BMP #### [facility] [address] [address] [address] Gage Mathis GLYCOHEMOGLOBIN A1Con 2022 ADA RECOMMENDATION SEE BELOW Normal [facility] Comment on above: Result Comment: ADA RECOMMENDED LIMIT 4.0 - 6.0 ADA THERAPEUTIC TARGET < 7.0 ACTION SUGGESTED > 7.0 Performed By: #### L IVER, LIPID, TSH, FT3, BMP #### [facility] [address] [place] [address] Dr. Gage Mathis Glucose [Mass/Vol] 100 mg/dL Normal [facility] Comment on above: Performed By: #### L IVER, LIPID, TSH, FT3, BMP #### [facility] [address] [place] [address] Dr. Gage Mathis HbA1c (Bld) [Mass fraction] 5.1 % Normal 4.5-6.2 [facility] Comment on above: Performed By: #### L IVER, LIPID, TSH, FT3, BMP #### [facility] [address] [place] [address] Dr. Gage Mathis PREG QUANT HCGon 12-04-2022 HCG QUANT <1 Normal [facility] Comment on above: Performed By: #### L IVER, LIPID, TSH, FT3, BMP #### [facility] [address] [place] [address] Dr. Gage Mathis HCG RANGE SEE BELOW Normal [facility] Comment on above: Result Comment: 5-50 0.2-1 WEEK 50-500 1-2 WEEKS 100-5,000 2-3 WEEKS 500-10,000 3-4 WEEKS 1,000-50,000 4-5 WEEKS 10,000-100,000 5-6 WEEKS 15,000-200,000 6-8 WEEKS 10,000-100,000 2-3 MONTHS Performed By: #### L IVER, LIPID, TSH, FT3, BMP #### [facility] [address] [place] [address] Dr. Gage Mathis PROTIMEon 12-04-2022 INR Coag (PPP) [Relative time] 0.94 {INR} Normal [facility] Comment on above: Performed By: #### L IVER, LIPID, TSH, FT3, BMP #### [facility] [address] [place] [address] Dr. Gage Mathis INR GUIDELINES SEE BELOW Normal [facility] Comment on above: Result Comment: KALEB RED INR: 2.0 - 3.0 CONDITIONS NOT LISTED BELOW 2.5 - 3.5 FOR PROSTHETIC HEART VALVE REPLACEMENT 2.5 - 3.5 RECURRENT THROMBOSIS Performed By: #### L IVER, LIPID, TSH, FT3, BMP #### [facility] [address] [place] [address] Dr. Gage Mathis PT Coag (PPP) [Time] 10.0 s Normal 9.0-11.6 [facility] Comment on above: Performed By: #### L IVER, LIPID, TSH, FT3, BMP #### [facility] [address] [place] [address] Dr. Gage Mathis PTTon 12-04-2022 aPTT Coag (Bld) [Time] 28.1 s Normal 22.3-36.2 [facility] Comment on above: Performed By: #### L IVER, LIPID, TSH, FT3, BMP #### [facility] [address] [place] [address] Dr. Gage Mathis TSHon 12-04-2022 TSH 4.110 uIU/mL Critically high 0.358-3.740 [facility] Comment on above: Performed By: #### L IVER, LIPID, TSH, FT3, BMP #### [facility] [address] [place] [address] Dr. Gage Mathis CBC AUTO DIFFon 02-01-2023 BASO # 0.0 103/ul Normal 0.0-0.1 [facility] Comment on above: Performed By: #### C BC #### [facility] [address] [place] [address] Dr. Gage Mathis Basophils/100 WBC (Bld) 0.1 % Critically low 0.2-2.0 [facility] Comment on above: Performed By: #### C BC #### [facility] [address] [place] [address] Dr. Gage Mathis EO # 0.0 103/ul Normal 0.0-0.7 [facility] Comment on above: Performed By: #### C BC #### [facility] [address] [place] [address] Dr. Gage Mathis Eosinophils/100 WBC (Bld) 0.0 % Critically low 0.9-7.0 [facility] Comment on above: Performed By: #### C BC #### [facility] [address] [place] [address] Dr. Gage Mathis Erythrocyte distribution width (RBC) [Ratio] 13.0 % Normal 11.0-15.0 [facility] Comment on above: Performed By: #### C BC #### [facility] [address] [place] [address] Dr. Gage Mathis Hematocrit (Bld) [Volume fraction] 38.6 % Normal 36.0-48.0 [facility] Comment on above: Performed By: #### C BC #### [facility] [address] [place] [address] Dr. Gage Mathis Hemoglobin (Bld) [Mass/Vol] 12.4 g/dL Normal 12.0-16.0 [facility] Comment on above: Performed By: #### C BC #### [facility] [address] [place] [address] Dr. Gage Mathis IG # 0.05 10e3/ul Critically high 0.00-0.03 [facility] Comment on above: Performed By: #### C BC #### [facility] [address] [place] [address] Dr. Gage Mathis IG % 0.5 % Normal 0.0-0.5 [facility] Comment on above: Performed By: #### C BC #### [facility] [address] [place] [address] Dr. Gage Mathis LYMPH # 2.8 103/ul Normal 1.2-3.8 [facility] Comment on above: Performed By: #### C BC #### [facility] [address] [place] [address] Dr. Gage Mathis Lymphocytes/100 WBC (Bld) 26.2 % Normal 20.5-60.0 [facility] Comment on above: Performed By: #### C BC #### [facility] [address] [place] [address] Dr. Gage Mathis MANUAL DIFF REQ NO Normal [facility] Comment on above: Performed By: #### C BC #### [facility] [address] [place] [address] Dr. Gage Mathis MCH (RBC) [Entitic mass] 32.0 pg Normal 26.7-34.0 [facility] Comment on above: Performed By: #### C BC #### [facility] [address] [place] [address] Dr. Gage Mathis MCHC (RBC) [Mass/Vol] 32.1 g/dL Normal 29.9-35.2 [facility] Comment on above: Performed By: #### C BC #### [facility] [address] [place] [address] Dr. Gage Mathis MCV (RBC) [Entitic vol] 99.5 fL Critically high 81.0-99.0 [facility] Comment on above: Performed By: #### C BC #### [facility] [address] [place] [address] Dr. Gage Mathis MONO # 0.6 103/ul Normal 0.3-0.8 [facility] Comment on above: Performed By: #### C BC #### [facility] [address] [place] [address] Dr. Gage Mathis Monocytes/100 WBC (Bld) 5.5 % Normal 1.7-12.0 [facility] Comment on above: Performed By: #### C BC #### [facility] [address] [address] [address] Gage Mathis NEUT # 7.1 103/ul Critically high 1.4-6.5 [facility] Comment on above: Performed By: #### C BC #### [facility] [address] [address] [address] Gage Mathis Neutrophils/100 WBC (Bld) 67.7 % Normal 43.0-75.0 [facility] Comment on above: Performed By: #### C BC #### [facility] [address] [place] [address] Dr. Gage Mathis Platelet mean volume (Bld) [Entitic vol] 10.0 fL Normal 9.5-13.5 [facility] Comment on above: Performed By: #### C BC #### [facility] [address] [place] [address] Dr. Gage Mathis PLT 271 103/ul Normal 150-450 [facility] Comment on above: Performed By: #### C BC #### [facility] [address] [address] [address] Gage Mathis RBC 3.88 106/ul Critically low 4.20-5.40 [facility] Comment on above: Performed By: #### C BC #### [facility] [address] [place] [address] Dr. Gage Mathis WBC 10.5 103/ul Normal 4.0-11.0 [facility] Comment on above: Performed By: #### C BC #### [facility] [address] [place] [address] Dr. Gage Mathis FREE T3on 10-09-2022 FREE T3 1.64 pg/mlL Critically low 2.18-3.98 [facility] Comment on above: Performed By: #### L IVER, LIPID, TSH, FT3, BMP #### [facility] [address] [address] [address] Gage Mathis FREE T4on 02-01-2023 Free T4 [Mass/Vol] 1.01 ng/dL Normal 0.76-1.46 [facility] Comment on above: Performed By: #### F T4 #### [facility] [address] [place] [address] Dr. Gage Mathis GLYCOHEMOGLOBIN A1Con 2022 ADA RECOMMENDATION SEE BELOW Normal [facility] Comment on above: Result Comment: ADA RECOMMENDED LIMIT 4.0 - 6.0 ADA THERAPEUTIC TARGET < 7.0 ACTION SUGGESTED > 7.0 Performed By: #### L IVER, LIPID, TSH, FT3, BMP #### [facility] [address] [place] [address] Dr. Gage Mathis Glucose [Mass/Vol] 100 mg/dL Normal [facility] Comment on above: Performed By: #### L IVER, LIPID, TSH, FT3, BMP #### [facility] [address] [place] [address] Dr. Gage Mathis HbA1c (Bld) [Mass fraction] 5.1 % Normal 4.5-6.2 [facility] Comment on above: Performed By: #### L IVER, LIPID, TSH, FT3, BMP #### [facility] [address] [place] [address] Dr. Gage Mathis LIPID PROFILEon 10-09-2022 CHOL-HDL RATIO NORM SEE BELOW Normal [facility] Comment on above: Result Comment: 3.3 - 4.4 LOW RISK 4.4 - 7.1 AVERAGE RISK 7.1 - 11.0 MODERATE RISK >11.0 HIGH RISK Performed By: #### L IVER, LIPID, TSH, FT3, BMP #### [facility] [address] [place] [address] Dr. Gage Mathis Cholesterol [Mass/Vol] 162 mg/dL Normal <=200 [facility] Comment on above: Performed By: #### L IVER, LIPID, TSH, FT3, BMP #### [facility] [address] [place] [address] Dr. Gage Mathis Cholesterol in HDL [Mass/Vol] 78 mg/dL Critically high 40-60 [facility] Comment on above: Performed By: #### L IVER, LIPID, TSH, FT3, BMP #### [facility] [address] [address] [address] Gage Mathis Cholesterol in LDL [Mass/Vol] 72.8 mg/dL Normal [facility] Comment on above: Performed By: #### L IVER, LIPID, TSH, FT3, BMP #### [facility] [address] [address] [address] Gage Mathis Cholesterol.total/C holesterol in HDL [Mass ratio] 2.1 {ratio} Normal [facility] Comment on above: Performed By: #### L IVER, LIPID, TSH, FT3, BMP #### [facility] [address] [address] [address] Gage Mathis HDL NORMAL > or = 60 mg/dl - LO W CARDIOVASCULAR RISK <40 mg/dl - HIGH CARDIOVASCULAR RISK Normal [facility] Comment on above: Performed By: #### L IVER, LIPID, TSH, FT3, BMP #### [facility] [address] [place] [address] Dr. Gage Mathis LDL CALC NORMAL SEE BELOW Normal [facility] Comment on above: Result Comment: <100 mg/dl OPTIMAL 100 - 129 mg/dl NEAR OR ABOVE OPTIMAL 130 - 159 mg/dl BORDERLINE HIGH 160 - 189 mg/dl HIGH >190 mg/dl VERY HIGH Performed By: #### L IVER, LIPID, TSH, FT3, BMP #### [facility] [address] [address] [address] Gage Mathis Triglyceride [Mass/Vol] 56 mg/dL Normal <=150 [facility] Comment on above: Performed By: #### L IVER, LIPID, TSH, FT3, BMP #### [facility] [address] [address] [address] Gage Mathis VLDL CALC 11.2 mg/dL Normal [facility] Comment on above: Performed By: #### L IVER, LIPID, TSH, FT3, BMP #### [facility] [address] [address] [address] Gage Mathis LIVER PROFILEon 10-09-2022 Albumin [Mass/Vol] 3.2 g/dL Critically low 3.4-5.0 [facility] Comment on above: Performed By: #### L IVER, LIPID, TSH, FT3, BMP #### [facility] [address] [place] [address] Dr. Gage Mathis Albumin/Globulin [Mass ratio] 0.9 {ratio} Normal [facility] Comment on above: Performed By: #### L IVER, LIPID, TSH, FT3, BMP #### [facility] [address] [place] [address] Dr. Gage Mathis ALP [Catalytic activity/Vol] 89 U/L Normal 46-116 [facility] Comment on above: Performed By: #### L IVER, LIPID, TSH, FT3, BMP #### [facility] [address] [place] [address] Dr. Gage Mathis ALT [Catalytic activity/Vol] 49 U/L Normal 14-59 [facility] Comment on above: Performed By: #### L IVER, LIPID, TSH, FT3, BMP #### [facility] [address] [place] [address] Dr. Gage Mathis AST [Catalytic activity/Vol] 15 U/L Normal 15-37 [facility] Comment on above: Performed By: #### L IVER, LIPID, TSH, FT3, BMP #### [facility] [address] [place] [address] Dr. Gage Mathis BILI, CONJUGATED 0.1 mg/dL Normal 0.0-0.2 [facility] Comment on above: Performed By: #### L IVER, LIPID, TSH, FT3, BMP #### [facility] [address] [place] [address] Dr. Gage Mathis Bilirubin [Mass/Vol] 0.3 mg/dL Normal 0.2-1.0 [facility] Comment on above: Performed By: #### L IVER, LIPID, TSH, FT3, BMP #### [facility] [address] [place] [address] Dr. Gage Mathis Globulin (S) [Mass/Vol] 3.7 g/dL Normal [facility] Comment on above: Performed By: #### L IVER, LIPID, TSH, FT3, BMP #### [facility] [address] [place] [address] Dr. Gage Mathis Protein [Mass/Vol] 6.9 g/dL Normal 6.4-8.2 [facility] Comment on above: Performed By: #### L IVER, LIPID, TSH, FT3, BMP #### [facility] [address] [place] [address] Dr. Gage Mathis PROF CHEM 8 (BAS METB)on Anion gap [Moles/Vol] 12.1 mmol/L Normal [facility] Comment on above: Performed By: #### L IVER, LIPID, TSH, FT3, BMP #### [facility] [address] [place] [address] Dr. Gage Mathis Calcium [Mass/Vol] 9.0 mg/dL Normal 8.5-10.1 [facility] Comment on above: Performed By: #### L IVER, LIPID, TSH, FT3, BMP #### [facility] [address] [place] [address] Dr. Gage Mathis Chloride [Moles/Vol] 104 mmol/L Normal 98-107 [facility] Comment on above: Performed By: #### L IVER, LIPID, TSH, FT3, BMP #### [facility] [address] [place] [address] Dr. Gage Mathis CO2 [Moles/Vol] 29.6 mmol/L Normal 21.0-32.0 [facility] Comment on above: Performed By: #### L IVER, LIPID, TSH, FT3, BMP #### [facility] [address] [place] [address] Dr. Gage Mathis Creatinine [Mass/Vol] 0.82 mg/dL Normal 0.55-1.02 [facility] Comment on above: Performed By: #### L IVER, LIPID, TSH, FT3, BMP #### [facility] [address] [place] [address] Dr. Gage Mathis EGFR-AF PUERTO RICAN >60 Normal >=60 [facility] Comment on above: Performed By: #### L IVER, LIPID, TSH, FT3, BMP #### [facility] [address] [address] [address] Gage Mathis EGFR-NON AF PUERTO RICAN >60 Normal >=60 [facility] Comment on above: Performed By: #### L IVER, LIPID, TSH, FT3, BMP #### [facility] [address] [address] [address] Gage Mathis Glucose [Mass/Vol] 92 mg/dL Normal 74-106 [facility] Comment on above: Performed By: #### L IVER, LIPID, TSH, FT3, BMP #### [facility] [address] [place] [address] Dr. Gage Mathis Potassium [Moles/Vol] 3.7 mmol/L Normal 3.5-5.1 [facility] Comment on above: Performed By: #### L IVER, LIPID, TSH, FT3, BMP #### [facility] [address] [place] [address] Dr. Gage Mathis Sodium [Moles/Vol] 142 mmol/L Normal 136-145 [facility] Comment on above: Performed By: #### L IVER, LIPID, TSH, FT3, BMP #### [facility] [address] [place] [address] Dr. Gage Mathis Urea nitrogen [Mass/Vol] 14.0 mg/dL Normal 7.0-18.0 [facility] Comment on above: Performed By: #### L IVER, LIPID, TSH, FT3, BMP #### [facility] [address] [place] [address] Dr. Gage Mathis Urea nitrogen/Creatinine [Mass ratio] 17.1 mg/mg Normal [facility] Comment on above: Performed By: #### L IVER, LIPID, TSH, FT3, BMP #### [facility] [address] [place] [address] Dr. Gage Mathis TSHon 10-09-2022 TSH 1.637 uIU/mL Normal 0.358-3.740 [facility] Comment on above: Performed By: #### L IVER, LIPID, TSH, FT3, BMP #### [facility] [address] [place] [address] [address] Gage Mathis VITAMIN D 25 OHon 10-09-2022 VIT D 25-OH 41.1 ng/mL Normal [facility] Comment on above: Performed By: #### V ITAD #### [facility] [address] [address] [address] Gage Mathis VIT D RANGES SEE BELOW Normal [facility] Comment on above: Result Comment: <20 ng/mL Vit D deficient 20 - <30 ng/mL Vit D insufficient 30 - 100 ng/mL Vit D sufficient >100 ng/mL Potential Toxicity Performed By: #### V ITAD #### [facility] [address] [place] [address] Dr. Gage Mathis COVID/FLU RT-PCRon 3 SARS-CoV-2 (COVID-19) RNA EB+probe Ql (Unsp spec) Negative [facility] Other COVID/FLU RT-PCR Negative [facility] Other COVID Quick Testingon 2021 Result Negative [facility] Other US PELVIS AND TRANSVAGon US PELVIS AND TRANSVAG EXAMINATION: US PELVIS AND TRANSVAG HISTORY: Noninflammatory disorder of the vagina ; brownish discharge COMPARISON: No relevant comparison available. TECHNIQUE: Transabdominal and transvaginal sonographic examination. FINDINGS: UTERUS: Normal size and appearance. Uterus size: 6.8 x 4.1 x 2.6 cm ENDOMETRIUM: Normal homogeneous appearance. Endometrial thickness: 4 mm RIGHT OVARY: Normal size and appearance. Duplex Doppler demonstrates normal waveform and flow; resistive index 0.6. Ovary size: 2.7 x 1.9 x 1.8 cm LEFT OVARY: Normal size and appearance. Duplex Doppler demonstrates normal waveform and flow; resistive index 0.5. Ovary size: 2.2 x 1.6 x 1.4 cm CUL-DE-SAC: Unremarkable. No significant free fluid. BLADDER: Unremarkable. OTHER: None. IMPRESSION: 1. Unremarkable pelvic ultrasound. No suspicious findings to account for patient's symptoms. Electronically authenticated by: BING PASCALKTANUP Date: 2022-05-02 17:47 Normal [facility] CHLAMYDIA/GONOCOCCUS EB (SW AB/URINE/PAPon 04-11-2022 Chlamydia trachomatis, EB Negative Normal Negative [facility] Comment on above: Performed By: #### L IVER, LIPID, TSH, FT3, BMP #### [facility] [address] [address] [address] Gage Mathis Neisseria gonorrhoeae, BE Negative Normal Negative [facility] Comment on above: Performed By: #### L IVER, LIPID, TSH, FT3, BMP #### [facility] [address] [place] [address] Dr. Gage Mathis VAGINITIS/VAGINOSIS DNA PROB Sincere 04-10-2022 Sol species Negative Normal Negative [facility] Comment on above: Performed By: #### V AGINT #### [facility] [address] [address] [address] Gage Mathis Gardnerella vaginalis Positive Abnormal Negative [facility] Comment on above: Performed By: #### V AGINT #### [facility] [address] [place] [address] Dr. Gage Mathis Trichomonas vaginalis Negative Normal Negative [facility] Comment on above: Performed By: #### V AGINT #### [facility] [address] [place] [address] Dr. Gage Mathis Basic Metabolic Panlon 08-06 Anion gap 3 molar conc 14 mmol/L Normal 9-18 [facility] Comment on above: Performed By: #### B MP, HFP ####[facility] [place], [place] [phone] Calcium mass conc 9.2 mg/dL Normal 8.5-10.2 [facility] Comment on above: Performed By: #### B MP, HFP ####[facility] [phone] Chloride molar conc 103 mmol/L Normal 97-105 [facility] Comment on above: Performed By: #### B BRYANNA, HFP ####[facility] [place], [place] [phone] CO2 molar conc 24 mmol/L Normal 22-30 [facility] Comment on above: Performed By: #### B MP, HFP ####[address] [address] [phone] Creatinine mass conc 0.83 mg/dL Normal 0.58-0.96 [facility] Comment on above: Performed By: #### B BRYANNA, HFP ####[address] [phone] eGFR- Amer. >60 Normal [facility] Comment on above: Performed By: #### B BRYANNA, HFP ####[address] [place] [phone] GFR/1.73 sq M predicted among non-blacks MDRD vol rate/area (S/P/Bld) mL/min/{1.73_m2} Normal [facility] Comment on above: Result Comment: eGFR (Estimated GFR) Units of measure: mL/min/1.73 meters squaredeGFR is derived from the reexpressed MDRD Study equation using the following parameters: serum creatinine, age, gender and race. The creatinine assay has been calibrated to be traceable to IDMS.An eGFR <60 mL/min/1.73m2 for >3 months is consistent with chronic kidney disease. Refer to KDOQI guidelines for clinical interpretation.In patients with unstable renal function, e.g. those with acute kidney injury, the eGFR may not accurately reflect actual GFR. Performed By: #### B BRYANNA, HFP ####[id number] [place], [place] [phone] Glucose mass conc 82 mg/dL Normal 74-99 [facility] Comment on above: Result Comment: The [place] Diabetes Association (ADA) provides guidance for cutoff values for fasting glucose and random glucose. The ADA defines fasting as no caloric intake for at least 8 hours. Fasting plasma glucose results between 100 to 125 mg/dL indicate increased risk for diabetes (prediabetes).Fasting plasma glucose results greater than or equal to 126 mg/dL meet the criteria for diagnosis of diabetes. In the absence of unequivocal hyperglycemia, results should be confirmed by repeat testing. In a patient with classic symptoms of hyperglycemia or hyperglycemic crisis, random plasma glucose results greater than or equal to 200 mg/dL meet the criteria for diagnosis of diabetes.Reference: Standards of Medical Care in Diabetes 2016, [place] Diabetes Association. Diabetes Care. 2016.39(Suppl 1). Performed By: #### B MP, HFP ####[facility] [place], [place] [phone] Potassium molar conc 4.3 mmol/L Normal 3.7-5.1 [facility] Comment on above: Performed By: #### B MP, HFP ####[id number] [place], [place] [phone] Sodium molar conc 141 mmol/L Normal 136-144 [facility] Comment on above: Performed By: #### B MP, HFP ####[facility] [place], [place] [phone] Urea nitrogen mass conc 14 mg/dL Normal 7-21 [facility] Comment on above: Performed By: #### B MP, HFP ####[facility] [place], [place] [phone] CNOVSPon 08-06-2018 CNOVSP Visit (SP) Office (HEMACL) AZUL ONTIVEROS ([id number]) 1990 [facility] [id number]/29/18 3:30 PM SHANT ROMERO During your visit today, we recorded the following information about you: Temperature Pulse Respiration Blood pressure 98.8 degrees 87/minute 16/minute 128/77 Weight Height 123.2 kg 1.524 Kirstie Romero MD 08/06/2018 3:44 PM SignedKeanu Allen is a 28 year old female who presents in follow up. Shewas referred to [facility] as Dr Castro was considering BCP's. Her mother had a embolicCVA on OCP's. The patient has never had any clotting, thrombotic or bleedingissues. A hypercoag panel was done [facility] which was negative. She does smoke.There was suggestion of a positive DRVVT but overall her hypercoag panel wasnegative. Ref Range AND Units 9d ago 4wk ago 3mo ago PT Sec 9.7 - 13.0 sec 11.2 10.1 PT INR 0.9 - 1.3 1.1 1.0CMComment: Vitamin K Antagonist (VKA) Therapeutic Range: INR 2 to 3 (Target INRof 2.5)Note: For patients treated with VKA drugs, such as warfarin, the AmericanCollege of Chest Physicians 2012 Guideline recommends a therapeutic INR rangeof 2 to 3 (target INR of 2.5). This recommendation includes high-risk patients?with antiphospholipid syndrome with previous arterial or venousthromboembolism, current-generation mechanical or bioprosthetic aortic heartvalve replacement.Note: Patients with mechanical aortic valve replacement and additional riskfactors for thromboembolic events (atrial fibrillation, previousthromboembolism, LV dysfunction, hypercoagulable conditions) or an oldergeneration mechanical AVR (i.e., ball in-Cage) or any mechanical MVR shouldhave a INR therapeutic range of 2.5 to 3.5 (target INR of 3).Milagrott GH, et al. Chest 2012, 141:7S-47SNishimura RA, et al. JACC 2017, 70: 252-289 APTT 23.0 - 32.4 sec 21.8 26.7CMComment: Unfractionated Heparin Therapeutic Ranges:Standard Heparin Nomogram: 53 to 78 seconds (anti-Xa level of 0.3 to 0.7 U/ml)Low Dose/ACS Nomogram: 49 to 67 seconds (anti-Xa level of 0.2 to 0.5 U/ml)Stroke Treatment Nomogram: 49 to 67 seconds (anti-Xa level of 0.2 to 0.5 U/ml)Note: The APTT therapeutic range has been determined for the current lot oflaboratory APTT reagent in use throughout the [facility]. Platelet Neut Negative Negative Negative DRVVT Screen 32.7 - 46.7 sec 35.1 36.1 42.3 DRVVT Confirm Ratio <1.21 1.10 <1.21 class= [id number] >0.91 <1.21 class= [id number] >1.06 DRVVT 1:1 Mix 32.7 - 46.7 sec 33.9 36.2 41.3 Hex Phase Screen 45.0 - 59.9 sec 34.7 54.5 Hex Phase Confirm 41.8 - 54.9 sec 32.6 47.7 Hex Phase Delta <9.1 delta sec 2.1 <9.1 delta sec class= rz_6 [id number] >6.7 APTT Screen 24.4 - 33.4 sec 24.3 33.0CM Immediate PTT 1:1 Mix <33.2 sec 26.3 <33.2 sec class= rz_6 [id number] >30.6 Incubated PTT 1:1 Mix <35.0 sec 28.3 <35.0 sec class= rz_6 [id number] >32.4 Thrombin Time <18.6 sec 17.7 <18.6 sec class= rz_6 phi4611 >16.1 Interpretation(Lupus Anticoagulant) (NOTE) (NOTE)CMComment: Performing Pathologist: Myesha Ellsworth MDInterpretation:No significant abnormalities - see comment below.Laboratory testing was performed to evaluate the presence of a lupusanticoagulant and anti-phospholipid antibodies. The PT and APTTvalues are not elevated. A normal thrombin time (TT) makes a heparinand/or direct thrombin inhibitor effect unlikely.LUPUS ANTICOAGULANT STUDIES: There is no evidence for a lupusanticoagulant or other coagulation inhibitor at this time.ANTIPHOSPHOLIPID ANTIBODY STUDIES: The IgG, IgM and IgAanticardiolipin antibody titers were all negative. Both the IgG andIgM Beta-2 Glycoprotein I antibody titers were negative.The criteria for the diagnosis of a Lupus Anticoagulant, as detailedby the Subcommittee on Lupus Anticoagulants and Anti-PhospholipidAntibodie s of the Scientific and Standardization Committee of theInternational Society on Thrombosis and Haemostasis (ISTH), are thefollowing: (1) A prolonged phospholipid-dependent clotting test(screening test); (2) Evidence for an inhibitor (1:1 mix ofpatient:normal plasma); (3) Evidence that the inhibitor isphospholipid dependent and (4) Exclusion of specific inhibitors (ie,fVIII inhibitors, direct thrombin inhibitors, or heparin). Thromb.Haemost. 74:1185 (1995). Cardiolipin Ab, IgG 0 - 9 GPL <9 <9CMComment: <10 GPL ? ? Bqtueccw63-70 GPL ? Equivocal>40 GPL ? ? PositiveThe following results were obtained with the Prime ConnectionsA Lite LAVON IgG IIIELISA. Cardiolipin IgG values obtained with the different manufacturers' assay?methods may not be used interchangeably. The magnitude of the reported IgGlevels cannot be correlated to an endpoint titer. Cardiolipin Ab, IgM 0 - 11 MPL <9 9CMComment: <12 MPL ? ? Gzjktqyd65-59 MPL ? Equivocal>40 MPL ? ? PositiveThe following results were obtained with the [employer] Lite LAVON IgM IIIELISA. Cardiolipin IgM values obtained with different manufacturers' assaymethods may not be used interchangeably. The magnitude of the reported IgMlevels cannot be correlated to an endpoint titer. Cardiolipin Ab, IgA 0 - 11 APL <9 <9CMComment: <12 APL ? ? Sqynzhnu30-64 APL ? Equivocal>40 APL ? ? PositiveThe following results were obtained with an [employer] QUANTA Lite LAVON IgA IIIELISA. Cardiolipin IgA values obtained with different manufacturers' assaymethods may not be used interchangeably. The magnitude of the reported IgAlevels cannot be correlated to an endpoint titer. Beta 2 Glycoprotein, IgG <20 SGU <9 <20 SGU class= rz_6 [id number] ><9CMComment: < 20 ?SGU ? ?Scscsjvm81-97 SGU ? ?Low Positive> 80 ?SGU ? ?High PositiveThese results were obtained with the Prime ConnectionsA Lite B2 GPI IgG DAYNA. B2GPI IgG values obtained with different manufacturers' assay methods may not be?used interchangeably. The magnitude of the reported IgG levels cannot becorrelated to an endpoint titer. Beta 2 Glycoprotein, IgM <20 SMU <9 <20 SMU class= rz_6 [id number] ><9CMComment: < 20 ?SMU ? ?Lmoklkow94-80 SMU ? ?Low Positive> 80 ?SMU ? ?High PositiveThese results were obtained with the [employer] QUANTA Lite B2 GPI IgM DAYNA. B2GPI IgM values obtained with different manufacturers' assay methods may not be?used interchangeably. The magnitude of the reported IgM levels cannot becorrelated to an endpoint titer.FACTOR V LEIDEN/PCROrder: [id number]: Final result ??Visible to patient: No (Not Released) Next appt: NoneDx: Positive dilute Idalia's viper venom...Component 3mo agoFactor V Leiden PCR Report (NOTE)Comment: Performing Pathologist: Alvina Sotomayor M.D., Ph.D.Factor V Leiden Mutation Result: NORMALHOMOCYSTEINEOrder: [id number]: Final result ??Visible to patient: No (Not Released) Next appt: NoneDx: Positive dilute Idalia's viper venom... Ref Range AND Units 3mo agoHomocysteine, Serum <15.1 umol/L 9.5Resulting Agency CCMSpecimen Collected: 04/20/18 ?2:22 PM Last Resulted: 04/21/18 ?1:31 PM LabFlowsheet Order Details View Encounter Lab and Collection Details RoutingResult HistoryOther Results from 04/20/2018FACTOR V LEIDEN/PCROrder: [id number]: Final result ??Visible to patient: No (Not Released) Next appt: NoneDx: Positive dilute Idalia's viper venom...Component 3mo agoFactor V Leiden PCR Report (NOTE)Comment: Performing Pathologist: Alvina Sotomayor M.D., Ph.D.Factor V Leiden Mutation Result: NORMALInterpretation: The patient is negative for the Factor V Leiden, theArginine 506/Glutamine 506 genetic polymorphism. The Factor V Leidenassay may fail to detect less than 5% of individuals with activatedprotein C resistance who do not have the Arginine 506/Glutamine 506point mutation.This may be detected by ordering the functional assayfor Activated Protein C Resistance. Other causes of thromboembolicdisease are not ruled out by a normal Factor V Leiden result.Method: This assay was performed by polymerase chain reaction andfluorescence monitoring using hybridization probes.?Resulting Agency CCMSpecimen Collected: 04/20/18 ?2:23 PM Last Resulted: 04/22/18 ?5:05 PM LabFlowsheet Order Details View Encounter Lab and Collection Details RoutingResult HistoryPROTHROMBIN GENE PCROrder: [id number]: Final result ??Visible to patient: No (Not Released) Next appt: NoneDx: Positive dilute Idalia's viper venom...Component 3mo agoPT Gene Report (NOTE)Comment: Performing Pathologist: Alvina Sotomayor M.D., Ph.D.PT Gene Mutation Result: NORMAL ?PT Gene Mutation Interpretation: The DNA sample is negative for [id number] point mutation in the 3' untranslated region of theprothrombin gene.This is not associated with an increased risk ofvenous thrombosis.Venous thrombosis is a multifactorial disorder, andother causes of venous thrombosis are not excluded.PT Gene Mutation Method: This assay was performed by polymerase chainreaction and fluorescence monitoring using hybridization probes. ?Resulting Agency CCMSpecimen Collected: 04/20/18 ?2:22 PM Last Resulted: 04/22/18 ?4:55 PM LabFlowsheet Order Details View Encounter Lab and Collection Details RoutingResult HistoryPROTEIN S CLOTTABLEOrder: [id number]: Final result ??Visible to patient: No (Not Released) Next appt: NoneDx: Positive dilute Idalia's viper venom... Ref Range AND Units 3mo agoProtein S Clottable 59 - 131 % 108Resulting Agency CCMSpecimen Collected: 04/20/18 ?2:22 PM Last Resulted: 04/21/18 ?9:13 AM LabFlowsheet Order Details View Encounter Lab and Collection Details RoutingResult HistoryPROTEIN C FUNCTOrder: [id number]: Final result ??Visible to patient: No (Not Released) Next appt: NoneDx: Positive dilute Idalia's viper venom... Ref Range AND Units 3mo agoPro C Fun 76 - 147 % 104Resulting Agency CCMSpecimen Collected: 04/20/18 ?2:22 PM Last Resulted: 04/21/18 ?9:13 AM LabFlowsheet Order Details View Encounter Lab and Collection Details RoutingResult HistoryANTITHROMBIN IIIOrder: [id number]: Final result ??Visible to patient: No (Not Released) Next appt: NoneDx: Positive dilute Idalia's viper venom... Ref Range AND Units 3mo agoAntithrombin Assay 84 - 138 % 93Resulting Agency CCMSpecimen Collected: 04/20/18 ?2:22 PM Last Resulted: 04/21/18 ?9:13 AM LabFlowsheet Order Details View Encounter Lab and Collection Details RoutingResult HistoryLUPUS ANTICOAG PLOrder: [id number]: Final result ??Visible to patient: No (Not Released) Next appt: NoneDx: Positive dilute Idalia's viper venom... Ref Range AND Units 3mo agoPT Sec 9.7 - 13.0 sec 10.1PT INR 0.9 - 1.3 1.0Comment: Vitamin K Antagonist (VKA) Therapeutic Range: INR 2 to 3 (Target INRof 2.5)Note: For patients treated with VKA drugs, such as warfarin, the AmericanCollege of Chest Physicians 2012 Guideline recommends a therapeutic INR rangeof 2 to 3 (target INR of 2.5). This recommendation includes high-risk patients?with antiphospholipid syndrome with previous arterial or venousthromboembolism, current-generation mechanical or bioprosthetic aortic heartvalve replacement.Note: Patients with mechanical aortic valve replacement and additional riskfactors for thromboembolic events (atrial fibrillation, previousthromboembolism, LV dysfunction, hypercoagulable conditions) or an oldergeneration mechanical AVR (i.e., ball in-Cage) or any mechanical MVR shouldhave a INR therapeutic range of 2.5 to 3.5 (target INR of 3).Alfred THAKKAR, et al. Chest 2012, 141:7S-47SShelbie FISCHER, et al. JAC 2017, 70: 252-289APTT 23.0 - 32.4 sec 26.7Comment: Unfractionated Heparin Therapeutic Ranges:Standard Heparin Nomogram: 53 to 78 seconds (anti-Xa level of 0.3 to 0.7 U/ml)Low Dose/ACS Nomogram: 49 to 67 seconds (anti-Xa level of 0.2 to 0.5 U/ml)Stroke Treatment Nomogram: 49 to 67 seconds (anti-Xa level of 0.2 to 0.5 U/ml)Note: The APTT therapeutic range has been determined for the current lot oflaboratory APTT reagent in use throughout the [facility].Platelet Neut Negative NegativeDRVVT Screen 32.7 - 46.7 sec 42.3DRVVT Confirm Ratio <1.21 1.06DRVVT 1:1 Mix 32.7 - 46.7 sec 41.3Hex Phase Screen 45.0 - 59.9 sec 54.5Hex Phase Confirm 41.8 - 54.9 sec 47.7Hex Phase Delta <9.1 delta sec 6.7APTT Screen 24.4 - 33.4 sec 33.0Comment: Result rechecked.Immediate PTT 1:1 Mix <33.2 sec 30.6Incubated PTT 1:1 Mix <35.0 sec 32.4Thrombin Time <18.6 sec 16.1Interpretation(Lupus Anticoagulant) (NOTE)Comment: Performing Pathologist: Alvina Sotomayor M.D., Ph.D.Normal - see comment below.Laboratory testing was performed to evaluate the presence of a lupusanticoagulant and anti-phospholipid antibodies. ?The PT and APTTvalues are both within the normal range. ?A normal thrombin time (TT)makes a heparin and/or direct thrombin inhibitor effect unlikely. ?LUPUS ANTICOAGULANT STUDIES: ?There is no evidence for a lupusanticoagulant or other coagulation inhibitor at this time. ?ANTIPHOSPHOLIPID ANTIBODY STUDIES: ?The IgG, IgM and IgAanticardiolipin antibody titers were all negative. ?Both the IgG andIgM Beta-2 Glycoprotein I antibody titers were negative. ?The criteria for the diagnosis of a Lupus Anticoagulant, as detailedby the Subcommittee on Lupus Anticoagulants and Anti-PhospholipidAntibodie s of the Scientific and Standardization Committee of theInternational Society on Thrombosis and Haemostasis (ISTH), are thefollowing: (1) A prolonged phospholipid-dependent clotting test(screening test); (2) Evidence for an inhibitor (1:1 mix ofpatient:normal plasma); (3) Evidence that the inhibitor isphospholipid dependent and (4) Exclusion of specific inhibitors (ie,fVIII inhibitors, direct thrombin inhibitors, or heparin). Thromb.Haemost. 74:1185 (1995). ?Cardiolipin Ab, IgG 0 - 9 GPL <9Comment: <10 GPL ? ? Wwyttwkq95-96 GPL ? Equivocal>40 GPL ? ? PositiveThe following results were obtained with the [employer] QUANTA Lite LAVON IgG IIIELISA. Cardiolipin IgG values obtained with the different manufacturers' assay?methods may not be used interchangeably. The magnitude of the reported IgGlevels cannot be correlated to an endpoint titer.Cardiolipin Ab, IgM 0 - 11 MPL 9Comment: <12 MPL ? ? Gymzixjf12-12 MPL ? Equivocal>40 MPL ? ? PositiveThe following results were obtained with the [employer] QUANTA Lite LAVON IgM IIIELISA. Cardiolipin IgM values obtained with different manufacturers' assaymethods may not be used interchangeably. The magnitude of the reported IgMlevels cannot be correlated to an endpoint titer.Cardiolipin Ab, IgA 0 - 11 APL <9Comment: <12 APL ? ? Byfiunto24-56 APL ? Equivocal>40 APL ? ? PositiveThe following results were obtained with an Inova QUANTA Lite LAVON IgA IIIELISA. Cardiolipin IgA values obtained with different manufacturers' assaymethods may not be used interchangeably. The magnitude of the reported IgAlevels cannot be correlated to an endpoint titer.Beta 2 Glycoprotein, IgG <20 SGU <9Comment: < 20 ?SGU ? ?Gwzdnmwh34-55 SGU ? ?Low Positive> 80 ?SGU ? ?High PositiveThese results were obtained with the Prime [employer]A Lite B2 GPI IgG DAYNA. B2GPI IgG values obtained with different manufacturers' assay methods may not be?used interchangeably. The magnitude of the reported IgG levels cannot becorrelated to an endpoint titer.Beta 2 Glycoprotein, IgM <20 SMU <9Comment: < 20 ?SMU ? ?Yfvmdhph75-71 SMU ? ?Low Positive> 80 ?SMU ? ?High PositiveThese results were obtained with the [employer] QUANTA Lite B2 GPI IgM DAYNA. B2GPI IgM values obtained with different manufacturers' assay methods may not be?used interchangeably. The magnitude of the reported IgM levels cannot becorrelated to an endpoint titer.Resulting Agency CCMSpecimen Collected: 04/20/18 ?2:22 PM Last Resulted: 04/21/18 ?6:40 PM LabFlowsheet Order Details View Encounter Lab and Collection Details RoutingResult HistoryANA PANEL BLOOD SCRNOrder: [id number]: Final result ??Visible to patient: No (Not Released) Next appt: NoneDx: Positive dilute Idalia's viper venom... Ref Range AND Units 3mo agoANA by EIA, Qual Negative NegativeANA by EIA OD Ratio 0.4Comment: OD Ratio is interpreted as follows:Negative <1.0Positive >=1.0No current outpatient prescriptions on file.No current facility-administered medications for this visit.ALLERGIESAllergen Reactions- Iodine RashREVIEW OF SYSTEMSGENERAL: No weight loss, malaise or fevers., SEE HPIHEENT: Negative for frequent or significant headaches, No changes in hearing orvision, no nose bleeds or other nasal problemsNECK: Negative for lumps, goiter, pain and significant neck swellingRESPIRATORY: Negative for cough, wheezing or shortness of breath.CARDIOVASCULAR: Negative for chest pain, leg swelling or palpitations.GI: Negative for abdominal discomfort, blood in stools or black stools orchange in bowel habitsMUSCULOSKELETAL: Negative for joint pain or swelling, back pain or muscle pain.SKIN: Negative for lesions, rash, and itching.PSYCH: Negative for sleep disturbance, mood disorder and recent psychosocialstressors.HAYLEY TOLOGY/LYMPHOLOGY: Negative for prolonged bleeding, bruising easily orswollen nodes.NEURO: No history of headaches, syncope, paralysis, seizures or tremorsAll other reviewed and negative other than HPI.PHYSICAL EXAM:BP 128/77 Pulse 87 Temp 37.1 ?C (98.8 ?F) (Oral) Resp 16 Ht 152.4cm (5') Wt 123.2 kg (271 lb 9.6 oz) SpO2 100% BMI 53.04 kg/m?General Appearance: alert and oriented, appearing in no acute distressSkin: skin color, texture, turgor normal, no suspicious rashes or lesions.Head: normal.Eyes: Anicteric sclera. Pupils are equally round. Extraocular movements areintact. .Ears: external ears normalNeck: Supple, no adenopathy; thyroid symmetric, normal size, no bruits.Back:no pain with ambulationLungs: good air exchange overallHeart: RRRAbdomen: No obvious evidence of rebound tenderness or guardingExtremities: Extremities normal. No deformities, edema, or skin discoloration.Good capillary refill..Musculoskeletal: Spine range of motion normal. Muscular strength intact.Peripheral Pulses: Normal.Neurologic: Gait normal. No gross cerebellar defectsPsychiatric: the patient has an appropriate affectHemoglobin (g/dL)Date Value07/28/2018 12.5 Hematocrit (%)Date Value07/28/2018 38.5 WBC (k/uL)Date Value07/28/2018 6.67 Platelet Count (k/uL)Date Value07/28/2018 193 ASSESSMENT/PL AN:1. 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) [R79.1]Disposition: Return if symptoms worsen or fail to improve.Follow-up and Disposition History RecordedProblem List As Of Date 08/06/2018 Noted Resolved Positive dilute Idalia's viper venom time test*INVALID FOR*Encounter Status:Closed by SHANT ROMERO MD on 08/06/18 Normal [facility] Hepatic Functn Panelon 08-06 Albumin mass conc 4.2 g/dL Normal 3.9-4.9 [facility] Comment on above: Performed By: #### B MP, HFP ####[place] [address] [address] [place], [place] [phone] ALP enzyme act/vol 75 U/L Normal 34-123 [facility] Comment on above: Performed By: #### B MP, HFP ####[place] [address] [address] [place], [place] [phone] ALT enzyme act/vol 21 U/L Normal 7-38 [facility] Comment on above: Performed By: #### B BRYANNA, HFP ####[address] [phone] AST enzyme act/vol 21 U/L Normal 13-35 [facility] Comment on above: Performed By: #### B BRYANNA, HFP ####[address] [phone] Bilirubin mass conc 0.3 mg/dL Normal 0.2-1.3 [facility] Comment on above: Performed By: #### B BRYANNA, HFP ####[address] [phone] Bilirubin,Conjugate d <0.2 Normal <0.2 [facility] Comment on above: Performed By: #### B BRYANNA, HFP ####[address] [phone] Protein mass conc 7.3 g/dL Normal 6.3-8.0 [facility] Comment on above: Performed By: #### B BRYANNA, HFP ####[facility] [place] [address] [phone] PROGRESSon 08-06-2018 Protein mass conc HNO ID: [id number] thor: Shant Quinonez: (none)Author Type: PhysicianType: Progress NotesFiled: 08/06/2018 3:44 PMNote Text:HPIAzul Allen is a 28 year old female who presents in follow up.She was referred to [facility] as Dr Castro was considering BCP's. Her mother hada embolic CVA on OCP's. The patient has never had any clotting, thromboticor bleeding issues. A hypercoag panel was done [facility] which was negative. Shedoes smoke. There was suggestion of a positive DRVVT but overall herhypercoag panel was negative. Ref Range AND Units 9d ago 4wk ago 3mo ago PT Sec 9.7 - 13.0 sec 11.2 10.1 PT INR 0.9 - 1.3 1.1 1.0CMComment: Vitamin K Antagonist (VKA) Therapeutic Range: INR 2 to 3 (TargetINR of 2.5)Note: For patients treated with VKA drugs, such as warfarin, the AmericanCollege of Chest Physicians 2012 Guideline recommends a therapeutic INRrangeof 2 to 3 (target INR of 2.5). This recommendation includes high-riskpatients?with antiphospholipid syndrome with previous arterial or venousthromboembolism, current-generation mechanical or bioprosthetic aorticheartvalve replacement.Note: Patients with mechanical aortic valve replacement and additionalriskfactors for thromboembolic events (atrial fibrillation, previousthromboembolism, LV dysfunction, hypercoagulable conditions) or an oldergeneration mechanical AVR (i.e., ball in-Cage) or any mechanical MVRshouldhave a INR therapeutic range of 2.5 to 3.5 (target INR of 3).Alfred GH, et al. Chest 2012, 141:7S-47SNishimura RA, et al. [facility] 2017, 70: 252-289 APTT 23.0 - 32.4 sec 21.8 26.7CMComment: Unfractionated Heparin Therapeutic Ranges:Standard Heparin Nomogram: 53 to 78 seconds (anti-Xa level of 0.3 to 0.7U/ml)Low Dose/ACS Nomogram: 49 to 67 seconds (anti-Xa level of 0.2 to 0.5 U/ml)Stroke Treatment Nomogram: 49 to 67 seconds (anti-Xa level of 0.2 to 0.5U/ml)Note: The APTT therapeutic range has been determined for the current lotoflaboratory APTT reagent in use throughout the [facility]. Platelet Neut Negative Negative Negative DRVVT Screen 32.7 - 46.7 sec 35.1 36.1 42.3 DRVVT Confirm Ratio <1.21 1.10 <1.21 class= rz_g def5723 >0.91 <1.21 class= rz_6 bmz6388 >1.06 DRVVT 1:1 Mix 32.7 - 46.7 sec 33.9 36.2 41.3 Hex Phase Screen 45.0 - 59.9 sec 34.7 54.5 Hex Phase Confirm 41.8 - 54.9 sec 32.6 47.7 Hex Phase Delta <9.1 delta sec 2.1 <9.1 delta sec class= [id number]_[id number] >6.7 APTT Screen 24.4 - 33.4 sec 24.3 33.0CM Immediate PTT 1:1 Mix <33.2 sec 26.3 <33.2 sec class= rz_6 rvw5836 >30.6 Incubated PTT 1:1 Mix <35.0 sec 28.3 <35.0 sec class= rz_6 lff6290 >32.4 Thrombin Time <18.6 sec 17.7 <18.6 sec class= rz_6 hzl7171 >16.1 Interpretation(Lupus Anticoagulant) (NOTE) (NOTE)CMComment: Performing Pathologist: Myesha Ellsworth MDInterpretation:No significant abnormalities - see comment below.Laboratory testing was performed to evaluate the presence of a lupusanticoagulant and anti-phospholipid antibodies. The PT and APTTvalues are not elevated. A normal thrombin time (TT) makes a heparinand/or direct thrombin inhibitor effect unlikely.LUPUS ANTICOAGULANT STUDIES: There is no evidence for a lupusanticoagulant or other coagulation inhibitor at this time.ANTIPHOSPHOLIPID ANTIBODY STUDIES: The IgG, IgM and IgAanticardiolipin antibody titers were all negative. Both the IgG andIgM Beta-2 Glycoprotein I antibody titers were negative.The criteria for the diagnosis of a Lupus Anticoagulant, as detailedby the Subcommittee on Lupus Anticoagulants and Anti-PhospholipidAntibodie s of the Scientific and Standardization Committee of theInternational Society on Thrombosis and Haemostasis (ISTH), are thefollowing: (1) A prolonged phospholipid-dependent clotting test(screening test); (2) Evidence for an inhibitor (1:1 mix ofpatient:normal plasma); (3) Evidence that the inhibitor isphospholipid dependent and (4) Exclusion of specific inhibitors (ie,fVIII inhibitors, direct thrombin inhibitors, or heparin). Thromb.Haemost. 74:1185 (1995). Cardiolipin Ab, IgG 0 - 9 GPL <9 <9CMComment: <10 GPL ? ? Vturwdwl96-89 GPL ? Equivocal>40 GPL ? ? PositiveThe following results were obtained with the [employer] LAVON IgG IIIELISA. Cardiolipin IgG values obtained with the different manufacturers'assay?method s may not be used interchangeably. The magnitude of the reportedIgGlevels cannot be correlated to an endpoint titer. Cardiolipin Ab, IgM 0 - 11 MPL <9 9CMComment: <12 MPL ? ? Vpvbutbd58-75 MPL ? Equivocal>40 MPL ? ? PositiveThe following results were obtained with the [employer]A Lite LAVON IgM IIIELISA. Cardiolipin IgM values obtained with different manufacturers' assaymethods may not be used interchangeably. The magnitude of the reported IgMlevels cannot be correlated to an endpoint titer. Cardiolipin Ab, IgA 0 - 11 APL <9 <9CMComment: <12 APL ? ? Bhwiynrt05-35 APL ? Equivocal>40 APL ? ? PositiveThe following results were obtained with an [employer] QUANTA Lite LAVON IgA IIIELISA. Cardiolipin IgA values obtained with different manufacturers' assaymethods may not be used interchangeably. The magnitude of the reported IgAlevels cannot be correlated to an endpoint titer. Beta 2 Glycoprotein, IgG <20 SGU <9 <20 SGU class= rz_6 mhn9511 ><9CMComment: < 20 ?SGU ? ?Gbmsihbi81-77 SGU ? ?Low Positive> 80 ?SGU ? ?High PositiveThese results were obtained with the [employer]A Lite B2 GPI IgG DAYNA.B2GPI IgG values obtained with different manufacturers' assay methods maynot be?used interchangeably. The magnitude of the reported IgG levels cannot becorrelated to an endpoint titer. Beta 2 Glycoprotein, IgM <20 SMU <9 <20 SMU class= rz_6 hku9849 ><9CMComment: < 20 ?SMU ? ?Wirbtzrd72-30 SMU ? ?Low Positive> 80 ?SMU ? ?High PositiveThese results were obtained with the [employer] QUANTA Lite B2 GPI IgM DAYNA.B2GPI IgM values obtained with different manufacturers' assay methods maynot be?used interchangeably. The magnitude of the reported IgM levels cannot becorrelated to an endpoint titer.FACTOR V LEIDEN/PCROrder: [id number]: Final result ??Visible to patient: No (Not Released) Next appt:None Dx: Positive dilute Idalia's viper venom...Component 3mo agoFactor V Leiden PCR Report (NOTE)Comment: Performing Pathologist: Alvina Sotomayor M.D., Ph.D.Factor V Leiden Mutation Result: NORMALHOMOCYSTEINEOrder: [id number]: Final result ??Visible to patient: No (Not Released) Next appt:None Dx: Positive dilute Idalia's viper venom... Ref Range AND Units 3mo agoHomocysteine, Serum <15.1 umol/L 9.5Resulting Agency CCMSpecimen Collected: 04/20/18 ?2:22 PM Last Resulted: 04/21/18 ?1:31 PM LabFlowsheet Order Details View Encounter Lab and Collection Details RoutingResult HistoryOther Results from 04/20/2018FACTOR V LEIDEN/PCROrder: [id number]: Final result ??Visible to patient: No (Not Released) Next appt:None Dx: Positive dilute Idalia's viper venom...Component 3mo agoFactor V Leiden PCR Report (NOTE)Comment: Performing Pathologist: Alvina Sotomayor M.D., Ph.D.Factor V Leiden Mutation Result: NORMALInterpretation: The patient is negative for the Factor V Leiden, theArginine 506/Glutamine 506 genetic polymorphism. The Factor V Leidenassay may fail to detect less than 5% of individuals with activatedprotein C resistance who do not have the Arginine 506/Glutamine 506point mutation.This may be detected by ordering the functional assayfor Activated Protein C Resistance. Other causes of thromboembolicdisease are not ruled out by a normal Factor V Leiden result.Method: This assay was performed by polymerase chain reaction andfluorescence monitoring using hybridization probes.?Resulting Agency CCMSpecimen Collected: 04/20/18 ?2:23 PM Last Resulted: 04/22/18 ?5:05 PM LabFlowsheet Order Details View Encounter Lab and Collection Details RoutingResult HistoryPROTHROMBIN GENE PCROrder: [id number]: Final result ??Visible to patient: No (Not Released) Next appt:None Dx: Positive dilute Idalia's viper venom...Component 3mo agoPT Gene Report (NOTE)Comment: Performing Pathologist: Alvina Sotomayor M.D., Ph.D.PT Gene Mutation Result: NORMAL ?PT Gene Mutation Interpretation: The DNA sample is negative for [id number] point mutation in the 3' untranslated region of theprothrombin gene.This is not associated with an increased risk ofvenous thrombosis.Venous thrombosis is a multifactorial disorder, andother causes of venous thrombosis are not excluded.PT Gene Mutation Method: This assay was performed by polymerase chainreaction and fluorescence monitoring using hybridization probes. ?Resulting Agency CCMSpecimen Collected: 04/20/18 ?2:22 PM Last Resulted: 04/22/18 ?4:55 PM LabFlowsheet Order Details View Encounter Lab and Collection Details RoutingResult HistoryPROTEIN S CLOTTABLEOrder: [id number]: Final result ??Visible to patient: No (Not Released) Next appt:None Dx: Positive dilute Idalia's viper venom... Ref Range AND Units 3mo agoProtein S Clottable 59 - 131 % 108Resulting Agency CCMSpecimen Collected: 04/20/18 ?2:22 PM Last Resulted: 04/21/18 ?9:13 AM LabFlowsheet Order Details View Encounter Lab and Collection Details RoutingResult HistoryPROTEIN C FUNCTOrder: [id number]: Final result ??Visible to patient: No (Not Released) Next appt:None Dx: Positive dilute Idalia's viper venom... Ref Range AND Units 3mo agoPro C Fun 76 - 147 % 104Resulting Agency CCMSpecimen Collected: 04/20/18 ?2:22 PM Last Resulted: 04/21/18 ?9:13 AM LabFlowsheet Order Details View Encounter Lab and Collection Details RoutingResult HistoryANTITHROMBIN IIIOrder: [id number]: Final result ??Visible to patient: No (Not Released) Next appt:None Dx: Positive dilute Idalia's viper venom... Ref Range AND Units 3mo agoAntithrombin Assay 84 - 138 % 93Resulting Agency CCMSpecimen Collected: 04/20/18 ?2:22 PM Last Resulted: 04/21/18 ?9:13 AM LabFlowsheet Order Details View Encounter Lab and Collection Details RoutingResult HistoryLUPUS ANTICOAG PLOrder: [id number]: Final result ??Visible to patient: No (Not Released) Next appt:None Dx: Positive dilute Idalia's viper venom... Ref Range AND Units 3mo agoPT Sec 9.7 - 13.0 sec 10.1PT INR 0.9 - 1.3 1.0Comment: Vitamin K Antagonist (VKA) Therapeutic Range: INR 2 to 3 (TargetINR of 2.5)Note: For patients treated with VKA drugs, such as warfarin, the AmericanCollege of Chest Physicians 2012 Guideline recommends a therapeutic INRrangeof 2 to 3 (target INR of 2.5). This recommendation includes high-riskpatients?with antiphospholipid syndrome with previous arterial or venousthromboembolism, current-generation mechanical or bioprosthetic aorticheartvalve replacement.Note: Patients with mechanical aortic valve replacement and additionalriskfactors for thromboembolic events (atrial fibrillation, previousthromboembolism, LV dysfunction, hypercoagulable conditions) or an oldergeneration mechanical AVR (i.e., ball in-Cage) or any mechanical MVRshouldhave a INR therapeutic range of 2.5 to 3.5 (target INR of 3).Alfred GH, et al. Chest 2012, 141:7S-47SNishimlouise RA, et al. JACC 2017, 70: 252-289APTT 23.0 - 32.4 sec 26.7Comment: Unfractionated Heparin Therapeutic Ranges:Standard Heparin Nomogram: 53 to 78 seconds (anti-Xa level of 0.3 to 0.7U/ml)Low Dose/ACS Nomogram: 49 to 67 seconds (anti-Xa level of 0.2 to 0.5 U/ml)Stroke Treatment Nomogram: 49 to 67 seconds (anti-Xa level of 0.2 to 0.5U/ml)Note: The APTT therapeutic range has been determined for the current lotoflaboratory APTT reagent in use throughout the [facility].Platelet Neut Negative NegativeDRVVT Screen 32.7 - 46.7 sec 42.3DRVVT Confirm Ratio <1.21 1.06DRVVT 1:1 Mix 32.7 - 46.7 sec 41.3Hex Phase Screen 45.0 - 59.9 sec 54.5Hex Phase Confirm 41.8 - 54.9 sec 47.7Hex Phase Delta <9.1 delta sec 6.7APTT Screen 24.4 - 33.4 sec 33.0Comment: Result rechecked.Immediate PTT 1:1 Mix <33.2 sec 30.6Incubated PTT 1:1 Mix <35.0 sec 32.4Thrombin Time <18.6 sec 16.1Interpretation(Lupus Anticoagulant) (NOTE)Comment: Performing Pathologist: Alvina Sotomayor M.D., Ph.D.Normal - see comment below.Laboratory testing was performed to evaluate the presence of a lupusanticoagulant and anti-phospholipid antibodies. ?The PT and APTTvalues are both within the normal range. ?A normal thrombin time (TT)makes a heparin and/or direct thrombin inhibitor effect unlikely. ?LUPUS ANTICOAGULANT STUDIES: ?There is no evidence for a lupusanticoagulant or other coagulation inhibitor at this time. ?ANTIPHOSPHOLIPID ANTIBODY STUDIES: ?The IgG, IgM and IgAanticardiolipin antibody titers were all negative. ?Both the IgG andIgM Beta-2 Glycoprotein I antibody titers were negative. ?The criteria for the diagnosis of a Lupus Anticoagulant, as detailedby the Subcommittee on Lupus Anticoagulants and Anti-PhospholipidAntibodie s of the Scientific and Standardization Committee of theInternational Society on Thrombosis and Haemostasis (ISTH), are thefollowing: (1) A prolonged phospholipid-dependent clotting test(screening test); (2) Evidence for an inhibitor (1:1 mix ofpatient:normal plasma); (3) Evidence that the inhibitor isphospholipid dependent and (4) Exclusion of specific inhibitors (ie,fVIII inhibitors, direct thrombin inhibitors, or heparin). Thromb.Haemost. 74:1185 (1995). ?Cardiolipin Ab, IgG 0 - 9 GPL <9Comment: <10 GPL ? ? [id number] GPL ? Equivocal>40 GPL ? ? PositiveThe following results were obtained with the Inova QUANTA Lite LAVON IgG IIIELISA. Cardiolipin IgG values obtained with the different manufacturers'assay?method s may not be used interchangeably. The magnitude of the reportedIgGlevels cannot be correlated to an endpoint titer.Cardiolipin Ab, IgM 0 - 11 MPL 9Comment: <12 MPL ? ? Uxjkipbs07-49 MPL ? Equivocal>40 MPL ? ? PositiveThe following results were obtained with the Inova QUANTA Lite LAVON IgM IIIELISA. Cardiolipin IgM values obtained with different manufacturers' assaymethods may not be used interchangeably. The magnitude of the reported IgMlevels cannot be correlated to an endpoint titer.Cardiolipin Ab, IgA 0 - 11 APL <9Comment: <12 APL ? ? Bcwzamsi26-94 APL ? Equivocal>40 APL ? ? PositiveThe following results were obtained with an Inova QUANTA Lite LAVON IgA IIIELISA. Cardiolipin IgA values obtained with different manufacturers' assaymethods may not be used interchangeably. The magnitude of the reported IgAlevels cannot be correlated to an endpoint titer.Beta 2 Glycoprotein, IgG <20 SGU <9Comment: < 20 ?SGU ? ?Psvttlvz84-05 SGU ? ?Low Positive> 80 ?SGU ? ?High PositiveThese results were obtained with the Inova QUANTA Lite B2 GPI IgG DAYNA.B2GPI IgG values obtained with different manufacturers' assay methods maynot be?used interchangeably. The magnitude of the reported IgG levels cannot becorrelated to an endpoint titer.Beta 2 Glycoprotein, IgM <20 SMU <9Comment: < 20 ?SMU ? ?Iedfrnmf28-83 SMU ? ?Low Positive> 80 ?SMU ? ?High PositiveThese results were obtained with the Inova QUANTA Lite B2 GPI IgM DAYNA.B2GPI IgM values obtained with different manufacturers' assay methods maynot be?used interchangeably. The magnitude of the reported IgM levels cannot becorrelated to an endpoint titer.Resulting Agency CCMSpecimen Collected: 04/20/18 ?2:22 PM Last Resulted: 04/21/18 ?6:40 PM LabFlowsheet Order Details View Encounter Lab and Collection Details RoutingResult HistoryANA PANEL BLOOD SCRNOrder: [id number]: Final result ??Visible to patient: No (Not Released) Next appt:None Dx: Positive dilute Idalia's viper venom... Ref Range AND Units 3mo agoANA by EIA, Qual Negative NegativeANA by EIA OD Ratio 0.4Comment: OD Ratio is interpreted as follows:Negative <1.0Positive >=1.0No current outpatient prescriptions on file.No current facility-administered medications for this visit.ALLERGIESAllergen Reactions- Iodine RashREVIEW OF SYSTEMSGENERAL: No weight loss, malaise or fevers., SEE HPIHEENT: Negative for frequent or significant headaches, No changes inhearing or vision, no nose bleeds or other nasal problemsNECK: Negative for lumps, goiter, pain and significant neck swellingRESPIRATORY: Negative for cough, wheezing or shortness of breath.CARDIOVASCULAR: Negative for chest pain, leg swelling or palpitations.GI: Negative for abdominal discomfort, blood in stools or black stools orchange in bowel habitsMUSCULOSKELETAL: Negative for joint pain or swelling, back pain or musclepain.SKIN: Negative for lesions, rash, and itching.PSYCH: Negative for sleep disturbance, mood disorder and recentpsychosocial stressors.HEMATOLOGY/LYMPH OLOGY: Negative for prolonged bleeding, bruising easily orswollen nodes.NEURO: No history of headaches, syncope, paralysis, seizures or tremorsAll other reviewed and negative other than HPI.PHYSICAL EXAM:BP 128/77 Pulse 87 Temp 37.1 ?C (98.8 ?F) (Oral) Resp 16 Ht152.4 cm (5') Wt 123.2 kg (271 lb 9.6 oz) SpO2 100% BMI 53.04kg/m?General Appearance: alert and oriented, appearing in no acute distressSkin: skin color, texture, turgor normal, no suspicious rashes or lesions.Head: normal.Eyes: Anicteric sclera. Pupils are equally round. Extraocular movementsare intact. .Ears: external ears normalNeck: Supple, no adenopathy; thyroid symmetric, normal size, no bruits.Back:no pain with ambulationLungs: good air exchange overallHeart: RRRAbdomen: No obvious evidence of rebound tenderness or guardingExtremities: Extremities normal. No deformities, edema, or skindiscoloration. Good capillary refill..Musculoskeletal: Spine range of motion normal. Muscular strength intact.Peripheral Pulses: Normal.Neurologic: Gait normal. No gross cerebellar defectsPsychiatric: the patient has an appropriate affectHemoglobin (g/dL)Date Value07/28/2018 12.5 Hematocrit (%)Date Value07/28/2018 38.5 WBC (k/uL)Date Value07/28/2018 6.67 Platelet Count (k/uL)Date Value07/28/2018 193 ASSESSMENT/PL AN:1. 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) - ICD9: 790.92,ICD10: R79.1No evidence of a hypercoag stateNo indications for any interventionHer risk, in my opinion, of a hematologic complication from OCP's isaround the normal for population. No indication for intervention needed.Shant Romero MD Normal [facility] Remote Abs Gran + CBC (for [facility] HC use only)on 08-06-2018 Absol Gran Count 3.97 k/uL Normal 1.45-7.50 [facility] Erythrocyte distribution width Auto Ratio (RBC) 12.1 % Normal 11.5-15.0 [facility] Hematocrit Auto Volume Fraction (Bld) 35.6 % Low 36.0-46.0 [facility] Hemoglobin mass conc (Bld) 11.6 g/dL Normal 11.5-15.5 [facility] MCH Auto Entitic mass (RBC) 31.1 pG Normal 26.0-34.0 [facility] MCHC Auto mass conc (RBC) 32.6 g/dL Normal 30.5-36.0 [facility] MCV Auto Entitic volume (RBC) 95.4 fL Normal 80.0-100.0 [facility] Platelet mean volume Auto Entitic volume (Bld) 10.4 fL Normal 9.0-12.7 [facility] Platelets Auto #/vol (Bld) 211 10*3/uL Normal 150-400 [facility] RBC Auto #/vol (Bld) 3.73 10*6/uL Low 3.90-5.20 [facility] WBC Auto #/vol (Bld) 6.52 10*3/uL Normal 3.70-11.00 [facility] Basic Metabolic Panlon 07-28 Anion gap 3 molar conc 10 mmol/L Normal 9-18 [facility] Calcium mass conc 9.3 mg/dL Normal 8.5-10.2 [facility] Chloride molar conc 104 mmol/L Normal 97-105 [facility] CO2 molar conc 23 mmol/L Normal 22-30 [facility] Creatinine mass conc 0.70 mg/dL Normal 0.58-0.96 [facility] eGFR- Amer. >60 Normal [facility] GFR/1.73 sq M predicted among non-blacks MDRD vol rate/area (S/P/Bld) mL/min/{1.73_m2} Normal [facility] Comment on above: Result Comment: eGFR (Estimated GFR) Units of measure: mL/min/1.73 meters squaredeGFR is derived from the reexpressed MDRD Study equation using the following parameters: serum creatinine, age, gender and race. The creatinine assay has been calibrated to be traceable to IDMS.An eGFR <60 mL/min/1.73m2 for >3 months is consistent with chronic kidney disease. Refer to KDOQI guidelines for clinical interpretation.In patients with unstable renal function, e.g. those with acute kidney injury, the eGFR may not accurately reflect actual GFR. Glucose mass conc 101 mg/dL High 74-99 [facility] Potassium molar conc 4.0 mmol/L Normal 3.7-5.1 [facility] Sodium molar conc 137 mmol/L Normal 136-144 [facility] Urea nitrogen mass conc 12 mg/dL Normal 7-21 [facility] Hepatic Functn Panelon 07-28 Albumin mass conc 4.1 g/dL Normal 3.9-4.9 [facility] ALP enzyme act/vol 75 U/L Normal 34-123 [facility] ALT enzyme act/vol 16 U/L Normal 7-38 [facility] AST enzyme act/vol 14 U/L Normal 13-35 [facility] Bilirubin mass conc 0.3 mg/dL Normal 0.2-1.3 [facility] Bilirubin,Conjugate d <0.2 Normal <0.2 [facility] Protein mass conc 7.2 g/dL Normal 6.3-8.0 [facility] Lupus Anticoag Panelon 07-28 aPTT Coag time (Bld) 24.3 s Low 24.4-33.4 [facility] Comment on above: Performed By: #### L UPUSP ####[facility], [place] [phone] aPTT Coag time (Bld) 26.3 s Normal <33.2 [facility] Comment on above: Performed By: #### L UPUSP ####[facility], [place] [phone] aPTT Coag time (Bld) 21.8 s Low 23.0-32.4 [facility] Comment on above: Result Comment: Unfr actionated Heparin Therapeutic Ranges:Standard Heparin Nomogram: 53 to 78 seconds (anti-Xa level of 0.3 to 0.7 U/ml)Low Dose/ACS Nomogram: 49 to 67 seconds (anti-Xa level of 0.2 to 0.5 U/ml)Stroke Treatment Nomogram: 49 to 67 seconds (anti-Xa level of 0.2 to 0.5 U/ml)Note: The APTT therapeutic range has been determined for the current lot of laboratory APTT reagent in use throughout the [facility]. Performed By: #### L UPUSP ####[facility] [address]ClevelColumb[place], [place] [phone] aPTT Coag time (Bld) 28.3 s Normal <35.0 [facility] Comment on above: Performed By: #### L UPUSP ####[facility] [address], [place] [phone] Beta2 Glycoprot IgG <9 Normal <20 [facility] Comment on above: Result Comment: < 20 SGU Mfazprxf51-19 SGU Low Positive> 80 SGU High PositiveThese results were obtained with the [employer] QUANTA Lite B2 GPI IgG DAYNA. B2 GPI IgG values obtained with different manufacturers' assay methods may not be used interchangeably. The magnitude of the reported IgG levels cannot be correlated to an endpoint titer. Performed By: #### L UPUSP ####[place] [address] [place] [phone] DRVVT 1:1 Mix 33.9 sec Normal 32.7-46.7 [facility] Comment on above: Performed By: #### L UPUSP ####[place] [address] [place] [phone] DRVVT Confirm Ratio 1.10 Normal <1.21 [facility] Comment on above: Performed By: #### L UPUSP ####[place] [address] [place] [phone] DRVVT Screen 35.1 sec Normal 32.7-46.7 [facility] Comment on above: Performed By: #### L UPUSP ####[place] [address] [place] [phone] Hex Phase Confirm 32.6 sec Low 41.8-54.9 [facility] Comment on above: Performed By: #### L UPUSP ####[place] [address], [place] [phone] Hex Phase Delta 2.1 delta sec Normal <9.1 [facility] Comment on above: Performed By: #### L UPUSP ####[facility], [place] [phone] Hex Phase Screen 34.7 sec Low 45.0-59.9 [facility] Comment on above: Performed By: #### L UPUSP ####[place] [address] [place] [phone] IgA Cardiolipin Ab. <9 Normal 0-11 [facility] Comment on above: Result Comment: <12 APL Ixlbtrrl01-01 APL Equivocal>40 APL PositiveThe following results were obtained with an Inova QUANTA Lite LAVON IgA III DAYNA. Cardiolipin IgA values obtained with different manufacturers' assay methods may not be used interchangeably. The magnitude of the reported IgA levels cannot be correlated to an endpoint titer. Performed By: #### L UPUSP ####[address] [phone] IgG Cardiolipin Ab. <9 Normal 0-9 [facility] Comment on above: Result Comment: <10 GPL [id number] GPL Equivocal>40 GPL PositiveThe following results were obtained with the Inova QUANTA Lite LAVON IgG III DAYNA. Cardiolipin IgG values obtained with the different manufacturers' assay methods may not be used interchangeably. The magnitude of the reported IgG levels cannot be correlated to an endpoint titer. Performed By: #### L UPUSP ####[address] [phone] IgM Cardiolipin Ab. <9 Normal 0-11 [facility] Comment on above: Result Comment: <12 MPL Onvhaboi53-74 MPL Equivocal>40 MPL PositiveThe following results were obtained with the Inova QUANTA Lite LAVON IgM III DAYNA. Cardiolipin IgM values obtained with different manufacturers' assay methods may not be used interchangeably. The magnitude of the reported IgM levels cannot be correlated to an endpoint titer. Performed By: #### L UPUSP ####[place] [address] [place], [place] [phone] INR Coag RelTime (Bld) 1.1 {INR} Normal 0.9-1.3 [facility] Comment on above: Result Comment: Maya min K Antagonist (VKA) Therapeutic Range: INR 2 to 3 (Target INR of 2.5)Note: For patients treated with VKA drugs, such as warfarin, the [employer] 2012 Guideline recommends a therapeutic INR range of 2 to 3 (target INR of 2.5). This recommendation includes high-risk patients with antiphospholipid syndrome with previous arterial or venous thromboembolism, current-generation mechanical or bioprosthetic aortic heart valve replacement.Note: Patients with mechanical aortic valve replacement and additional risk factors for thromboembolic events (atrial fibrillation, previous thromboembolism, LV dysfunction, hypercoagulable conditions) or an older generation mechanical AVR (i.e., ball in-Cage) or any mechanical MVR should have a INR therapeutic range of 2.5 to 3.5 (target INR of 3).Alfred GH, et al. Chest 2012, 141:7S-47SNishimura RA, et al. [facility] 2017, 70: 252-289 Performed By: #### L UPUSP ####[place] [id number] [place], [place] [phone] Interpretation (NOTE) Normal [facility] Comment on above: Result Comment: Perf orming Pathologist: Myesha Ellsworth MDInterpretation:No significant abnormalities - see comment below.Laboratory testing was performed to evaluate the presence of a lupusanticoagulant and anti-phospholipid antibodies. The PT and APTTvalues are not elevated. A normal thrombin time (TT) makes a heparinand/or direct thrombin inhibitor effect unlikely.LUPUS ANTICOAGULANT STUDIES: There is no evidence for a lupusanticoagulant or other coagulation inhibitor at this time.ANTIPHOSPHOLIPID ANTIBODY STUDIES: The IgG, IgM and IgAanticardiolipin antibody titers were all negative. Both the IgG andIgM Beta-2 Glycoprotein I antibody titers were negative.The criteria for the diagnosis of a Lupus Anticoagulant, as detailedby the Subcommittee on Lupus Anticoagulants and Anti-PhospholipidAntibodies of the Scientific and Standardization Committee of theInternational Society on Thrombosis and Haemostasis (ISTH), are thefollowing: (1) A prolonged phospholipid-dependent clotting test(screening test); (2) Evidence for an inhibitor (1:1 mix ofpatient:normal plasma); (3) Evidence that the inhibitor isphospholipid dependent and (4) Exclusion of specific inhibitors (ie,fVIII inhibitors, direct thrombin inhibitors, or heparin). Thromb.Haemost. 74:1185 (1995). Performed By: #### L UPUSP ####[place] [address] [place], [place] [phone] PNP Negative Normal Negative [facility] Comment on above: Performed By: #### L UPUSP ####[place] [address] [place], [place] [phone] Protein mass conc g/dL Normal <20 [facility] Comment on above: Result Comment: < 20 SMU Vgqzypyn52-04 SMU Low Positive> 80 SMU High PositiveThese results were obtained with the Prime ConnectionsA Lite B2 GPI IgM DAYNA. B2 GPI IgM values obtained with different manufacturers' assay methods may not be used interchangeably. The magnitude of the reported IgM levels cannot be correlated to an endpoint titer. Performed By: #### L UPUSP ####[address] [phone] PT Sec 11.2 sec Normal 9.7-13.0 [facility] Comment on above: Performed By: #### L UPUSP ####[address] [phone] Thrombin Time 17.7 sec Normal <18.6 [facility] Comment on above: Performed By: #### L UPUSP ####[address] [phone] Remote Abs Gran + CBC (for [facility] use only)on 07-28-2018 Absol Gran Count 4.19 k/uL Normal 1.45-7.50 [facility] Erythrocyte distribution width Auto Ratio (RBC) 12.4 % Normal 11.5-15.0 [facility] Hematocrit Auto Volume Fraction (Bld) 38.5 % Normal 36.0-46.0 [facility] Hemoglobin mass conc (Bld) 12.5 g/dL Normal 11.5-15.5 [facility] MCH Auto Entitic mass (RBC) 31.1 pG Normal 26.0-34.0 [facility] MCHC Auto mass conc (RBC) 32.5 g/dL Normal 30.5-36.0 [facility] MCV Auto Entitic volume (RBC) 95.8 fL Normal 80.0-100.0 [facility] Platelet mean volume Auto Entitic volume (Bld) 11.1 fL Normal 9.0-12.7 [facility] Platelets Auto #/vol (Bld) 193 10*3/uL Normal 150-400 [facility] RBC Auto #/vol (Bld) 4.02 10*6/uL Normal 3.90-5.20 [facility] WBC Auto #/vol (Bld) 6.67 10*3/uL Normal 3.70-11.00 [facility] Dilute RVVTon 07-08-2018 DRVVT 1:1 Mix 36.2 sec Normal 32.7-46.7 [facility] Comment on above: Performed By: #### D RVVT ####[place] [phone] DRVVT Confirm Ratio 0.91 Normal <1.21 [facility] Comment on above: Performed By: #### D RVVT ####[place] [phone] DRVVT Screen 36.1 sec Normal 32.7-46.7 [facility] Comment on above: Performed By: #### D RVVT ####[place] [phone] ROSANA Panel 1on 04-20-2018 ROSANA by EIA 0.4 OD Ratio Normal [facility] Comment on above: Result Comment: OD R atio is interpreted as follows:Negative <1.0Positive >=1.0 Performed By: #### W SR, PRCFUN, AT3ASY, PRSCLT, SERIMM, HOMCYS, IRON, FERR, B12, SERFOL, ANA1, HSCRP ####[place] [phone] ROSANA by EIA, Qual Negative Normal Negative [facility] Comment on above: Performed By: #### W SR, PRCFUN, AT3ASY, PRSCLT, SERIMM, HOMCYS, IRON, FERR, B12, SERFOL, ANA1, HSCRP ####[address] [phone] Antithrombin Assayon 018 Antithrombin Assay 93 % Normal 84-138 [facility] Comment on above: Performed By: #### W SR, PRCFUN, AT3ASY, PRSCLT, SERIMM, HOMCYS, IRON, FERR, B12, SERFOL, ANA1, HSCRP ####[address] [phone] Comp Metabolic Panelon 04-20 Albumin mass conc 4.3 g/dL Normal 3.9-4.9 [facility] Comment on above: Performed By: #### W SR, PRCFUN, AT3ASY, PRSCLT, SERIMM, HOMCYS, IRON, FERR, B12, SERFOL, ANA1, HSCRP ####[address] [phone] ALP enzyme act/vol 98 U/L Normal 32-117 [facility] Comment on above: Performed By: #### W SR, PRCFUN, AT3ASY, PRSCLT, SERIMM, HOMCYS, IRON, FERR, B12, SERFOL, ANA1, HSCRP ####[address] [phone] ALT enzyme act/vol 13 U/L Normal 7-38 [facility] Comment on above: Performed By: #### W SR, PRCFUN, AT3ASY, PRSCLT, SERIMM, HOMCYS, IRON, FERR, B12, SERFOL, ANA1, HSCRP ####[address] [phone] Anion gap 3 molar conc 9 mmol/L Normal 9-18 [facility] Comment on above: Performed By: #### W SR, PRCFUN, AT3ASY, PRSCLT, SERIMM, HOMCYS, IRON, FERR, B12, SERFOL, ANA1, HSCRP ####[place] [address] [place] [phone] AST enzyme act/vol 14 U/L Normal 13-35 [facility] Comment on above: Performed By: #### W SR, PRCFUN, AT3ASY, PRSCLT, SERIMM, HOMCYS, IRON, FERR, B12, SERFOL, ANA1, HSCRP ####[place] [phone] Bilirubin mass conc 0.2 mg/dL Normal 0.2-1.3 [facility] Comment on above: Performed By: #### W SR, PRCFUN, AT3ASY, PRSCLT, SERIMM, HOMCYS, IRON, FERR, B12, SERFOL, ANA1, HSCRP ####[place] [phone] Calcium mass conc 9.2 mg/dL Normal 8.5-10.2 [facility] Comment on above: Performed By: #### W SR, PRCFUN, AT3ASY, PRSCLT, SERIMM, HOMCYS, IRON, FERR, B12, SERFOL, ANA1, HSCRP ####[place] [phone] Chloride molar conc 102 mmol/L Normal 97-105 [facility] Comment on above: Performed By: #### W SR, PRCFUN, AT3ASY, PRSCLT, SERIMM, HOMCYS, IRON, FERR, B12, SERFOL, ANA1, HSCRP ####[place] [phone] CO2 molar conc 28 mmol/L Normal 22-30 [facility] Comment on above: Performed By: #### W SR, PRCFUN, AT3ASY, PRSCLT, SERIMM, HOMCYS, IRON, FERR, B12, SERFOL, ANA1, HSCRP ####[place] [phone] Creatinine mass conc 0.96 mg/dL Normal 0.58-0.96 [facility] Comment on above: Performed By: #### W SR, PRCFUN, AT3ASY, PRSCLT, SERIMM, HOMCYS, IRON, FERR, B12, SERFOL, ANA1, HSCRP ####[place] [address] [place], [place] [phone] eGFR- Amer. >60 Normal [facility] Comment on above: Performed By: #### W SR, PRCFUN, AT3ASY, PRSCLT, SERIMM, HOMCYS, IRON, FERR, B12, SERFOL, ANA1, HSCRP ####[place] [phone] GFR/1.73 sq M predicted among non-blacks MDRD vol rate/area (S/P/Bld) mL/min/{1.73_m2} Normal [facility] Comment on above: Result Comment: eGFR (Estimated GFR) Units of measure: mL/min/1.73 meters squaredeGFR is derived from the reexpressed MDRD Study equation using the following parameters: serum creatinine, age, gender and race. The creatinine assay has been calibrated to be traceable to IDMS.An eGFR <60 mL/min/1.73m2 for >3 months is consistent with chronic kidney disease. Refer to KDOQI guidelines for clinical interpretation.In patients with unstable renal function, e.g. those with acute kidney injury, the eGFR may not accurately reflect actual GFR. Performed By: #### W SR, PRCFUN, AT3ASY, PRSCLT, SERIMM, HOMCYS, IRON, FERR, B12, SERFOL, ANA1, HSCRP ####[place] [id number] [place] [phone] Glucose mass conc 103 mg/dL High 74-99 [facility] Comment on above: Performed By: #### W SR, PRCFUN, AT3ASY, PRSCLT, SERIMM, HOMCYS, IRON, FERR, B12, SERFOL, ANA1, HSCRP ####[address] [phone] Potassium molar conc 3.9 mmol/L Normal 3.7-5.1 [facility] Comment on above: Performed By: #### W SR, PRCFUN, AT3ASY, PRSCLT, SERIMM, HOMCYS, IRON, FERR, B12, SERFOL, ANA1, HSCRP ####[address] [phone] Protein mass conc 7.2 g/dL Normal 6.3-8.0 [facility] Comment on above: Performed By: #### W SR, PRCFUN, AT3ASY, PRSCLT, SERIMM, HOMCYS, IRON, FERR, B12, SERFOL, ANA1, HSCRP ####[address] [phone] Sodium molar conc 139 mmol/L Normal 136-144 [facility] Comment on above: Performed By: #### W SR, PRCFUN, AT3ASY, PRSCLT, SERIMM, HOMCYS, IRON, FERR, B12, SERFOL, ANA1, HSCRP ####[address] [phone] Urea nitrogen mass conc 14 mg/dL Normal 7-21 [facility] Comment on above: Performed By: #### W SR, PRCFUN, AT3ASY, PRSCLT, SERIMM, HOMCYS, IRON, FERR, B12, SERFOL, ANA1, HSCRP ####[address] [phone] Factor V Leiden PCRon 2017 FV Leiden Report (NOTE) Normal [facility] Comment on above: Result Comment: [facility] Pathologist: Alvina Sotomayor M.D., Ph.D.Factor V Leiden Mutation Result: NORMALInterpretation: The patient is negative for the Factor V Leiden, theArginine 506/Glutamine 506 genetic polymorphism. The Factor V Leidenassay may fail to detect less than 5% of individuals with activatedprotein C resistance who do not have the Arginine 506/Glutamine 506point mutation.This may be detected by ordering the functional assayfor Activated Protein C Resistance. Other causes of thromboembolicdisease are not ruled out by a normal Factor V Leiden result.Method: This assay was performed by polymerase chain reaction andfluorescence monitoring using hybridization probes. Performed By: #### F VLEI ####[place] [address] [address], [place] [phone] Ferritinon 04-20-2018 Ferritin [Mass/volume] in Serum or Plasma 53.7 ng/mL Normal 14.7-205.1 [facility] Comment on above: Performed By: #### W SR, PRCFUN, AT3ASY, PRSCLT, SERIMM, HOMCYS, IRON, FERR, B12, SERFOL, ANA1, HSCRP ####[address] [phone] Folate, Serumon 04-20-2018 Folate [Mass/volume] in Serum or Plasma 10.0 ng/mL Normal >4.7 [facility] Comment on above: Performed By: #### W SR, PRCFUN, AT3ASY, PRSCLT, SERIMM, HOMCYS, IRON, FERR, B12, SERFOL, ANA1, HSCRP ####[address] [phone] Homocysteineon 04-20-2018 Homocysteine 9.5 umol/L Normal <15.1 [facility] Comment on above: Performed By: #### W SR, PRCFUN, AT3ASY, PRSCLT, SERIMM, HOMCYS, IRON, FERR, B12, SERFOL, ANA1, HSCRP ####[address] [phone] Immunoglobulins GAMon 2017 IgA mass conc 237 mg/dL Normal 78-391 [facility] Comment on above: Performed By: #### W SR, PRCFUN, AT3ASY, PRSCLT, SERIMM, HOMCYS, IRON, FERR, B12, SERFOL, ANA1, HSCRP ####[address] [place], [place] [phone] IgG mass conc 1220 mg/dL Normal 717-1411 [facility] Comment on above: Performed By: #### W SR, PRCFUN, AT3ASY, PRSCLT, SERIMM, HOMCYS, IRON, FERR, B12, SERFOL, ANA1, HSCRP ####[address] [phone] IgM mass conc 139 mg/dL Normal 53-334 [facility] Comment on above: Performed By: #### W SR, PRCFUN, AT3ASY, PRSCLT, SERIMM, HOMCYS, IRON, FERR, B12, SERFOL, ANA1, HSCRP ####[place] [phone] Iron and TIBCon 04-20-2018 Iron mass conc 36 ug/dL Low 41-186 [facility] Comment on above: Performed By: #### W SR, PRCFUN, AT3ASY, PRSCLT, SERIMM, HOMCYS, IRON, FERR, B12, SERFOL, ANA1, HSCRP ####[address] [phone] TIBC 271 ug/dL Normal 232-386 [facility] Comment on above: Performed By: #### W SR, PRCFUN, AT3ASY, PRSCLT, SERIMM, HOMCYS, IRON, FERR, B12, SERFOL, ANA1, HSCRP ####[place] [phone] Transferrin Saturatn 13 % Low 15-57 [facility] Comment on above: Performed By: #### W SR, PRCFUN, AT3ASY, PRSCLT, SERIMM, HOMCYS, IRON, FERR, B12, SERFOL, ANA1, HSCRP ####[address] [phone] LDon 04-20-2018 LD 197 U/L Normal 135-214 [facility] Comment on above: Performed By: #### W SR, PRCFUN, AT3ASY, PRSCLT, SERIMM, HOMCYS, IRON, FERR, B12, SERFOL, ANA1, HSCRP ####[address] [phone] Lupus Anticoag Panelon 04-20 aPTT Coag time (Bld) 26.7 s Normal 23.0-32.4 [facility] Comment on above: Result Comment: Unfr actionated Heparin Therapeutic Ranges:Standard Heparin Nomogram: 53 to 78 seconds (anti-Xa level of 0.3 to 0.7 U/ml)Low Dose/ACS Nomogram: 49 to 67 seconds (anti-Xa level of 0.2 to 0.5 U/ml)Stroke Treatment Nomogram: 49 to 67 seconds (anti-Xa level of 0.2 to 0.5 U/ml)Note: The APTT therapeutic range has been determined for the current lot of laboratory APTT reagent in use throughout the [facility]. Performed By: #### L UPUSP ####[address] [phone] aPTT Coag time (Bld) 32.4 s Normal <35.0 [facility] Comment on above: Performed By: #### L UPUSP ####[address] [phone] aPTT Coag time (Bld) 30.6 s Normal <33.2 [facility] Comment on above: Performed By: #### L UPUSP ####[address] [phone] aPTT Coag time (Bld) 33.0 s Normal 24.4-33.4 [facility] Comment on above: Result Comment: Resu lt rechecked. Performed By: #### L UPUSP ####[facility], [place] [phone] Beta2 Glycoprot IgG <9 Normal <20 [facility] Comment on above: Result Comment: < 20 SGU [id number] SGU Low Positive> 80 SGU High PositiveThese results were obtained with the [employer] QUANTA Lite B2 GPI IgG DAYNA. B2 GPI IgG values obtained with different manufacturers' assay methods may not be used interchangeably. The magnitude of the reported IgG levels cannot be correlated to an endpoint titer. Performed By: #### L UPUSP ####[place] [address] [address] [place] [phone] DRVVT 1:1 Mix 41.3 sec Normal 32.7-46.7 [facility] Comment on above: Performed By: #### L UPUSP ####[place] [address], [place] [phone] DRVVT Confirm Ratio 1.06 Normal <1.21 [facility] Comment on above: Performed By: #### L UPUSP ####[place] [address] [place] [phone] DRVVT Screen 42.3 sec Normal 32.7-46.7 [facility] Comment on above: Performed By: #### L UPUSP ####[place] [address] [address] [place] [phone] Hex Phase Confirm 47.7 sec Normal 41.8-54.9 [facility] Comment on above: Performed By: #### L UPUSP ####[place] [address] [address] [place] [phone] Hex Phase Delta 6.7 delta sec Normal <9.1 [facility] Comment on above: Performed By: #### L UPUSP ####[place] [address], [place] [phone] Hex Phase Screen 54.5 sec Normal 45.0-59.9 [facility] Comment on above: Performed By: #### L UPUSP ####[place] [id number] [place], [place] [phone] IgA Cardiolipin Ab. <9 Normal 0-11 [facility] Comment on above: Result Comment: <12 APL [id number] APL Equivocal>40 APL PositiveThe following results were obtained with an Inova QUANTA Lite LAVON IgA III DAYNA. Cardiolipin IgA values obtained with different manufacturers' assay methods may not be used interchangeably. The magnitude of the reported IgA levels cannot be correlated to an endpoint titer. Performed By: #### L UPUSP ####[address] [phone] IgG Cardiolipin Ab. <9 Normal 0-9 [facility] Comment on above: Result Comment: <10 GPL [id number] GPL Equivocal>40 GPL PositiveThe following results were obtained with the [employer]ova QUANTA Lite LAVON IgG III DAYNA. Cardiolipin IgG values obtained with the different manufacturers' assay methods may not be used interchangeably. The magnitude of the reported IgG levels cannot be correlated to an endpoint titer. Performed By: #### L UPUSP ####[address] [phone] IgM Cardiolipin Ab. 9 MPL Normal 0-11 [facility] Comment on above: Result Comment: <12 MPL Guzhjdrg07-20 MPL Equivocal>40 MPL PositiveThe following results were obtained with the Inova QUANTA Lite LAVON IgM III DAYNA. Cardiolipin IgM values obtained with different manufacturers' assay methods may not be used interchangeably. The magnitude of the reported IgM levels cannot be correlated to an endpoint titer. Performed By: #### L UPUSP ####[address] [phone] INR Coag RelTime (Bld) 1.0 {INR} Normal 0.9-1.3 [facility] Comment on above: Result Comment: Maya min K Antagonist (VKA) Therapeutic Range: INR 2 to 3 (Target INR of 2.5)Note: For patients treated with VKA drugs, such as warfarin, the [place] [employer] 2012 Guideline recommends a therapeutic INR range of 2 to 3 (target INR of 2.5). This recommendation includes high-risk patients with antiphospholipid syndrome with previous arterial or venous thromboembolism, current-generation mechanical or bioprosthetic aortic heart valve replacement.Note: Patients with mechanical aortic valve replacement and additional risk factors for thromboembolic events (atrial fibrillation, previous thromboembolism, LV dysfunction, hypercoagulable conditions) or an older generation mechanical AVR (i.e., ball in-Cage) or any mechanical MVR should have a INR therapeutic range of 2.5 to 3.5 (target INR of 3).Alfred GH, et al. Chest 2012, 141:7S-47SNishimura RA, et al. [facility] 2017, 70: 252-289 Performed By: #### L [facility] ####[facility] [place], [place] [phone] Interpretation (NOTE) Normal [facility] Comment on above: Result Comment: Perf orming Pathologist: Alvina Sotomayor M.D., Ph.D.Normal - see comment below.Laboratory testing was performed to evaluate the presence of a lupusanticoagulant and anti-phospholipid antibodies. The PT and APTTvalues are both within the normal range. A normal thrombin time (TT)makes a heparin and/or direct thrombin inhibitor effect unlikely.LUPUS ANTICOAGULANT STUDIES: There is no evidence for a lupusanticoagulant or other coagulation inhibitor at this time.ANTIPHOSPHOLIPID ANTIBODY STUDIES: The IgG, IgM and IgAanticardiolipin antibody titers were all negative. Both the IgG andIgM Beta-2 Glycoprotein I antibody titers were negative.The criteria for the diagnosis of a Lupus Anticoagulant, as detailedby the Subcommittee on Lupus Anticoagulants and Anti-PhospholipidAntibodies of the Scientific and Standardization Committee of theInternational Society on Thrombosis and Haemostasis (ISTH), are thefollowing: (1) A prolonged phospholipid-dependent clotting test(screening test); (2) Evidence for an inhibitor (1:1 mix ofpatient:normal plasma); (3) Evidence that the inhibitor isphospholipid dependent and (4) Exclusion of specific inhibitors (ie,fVIII inhibitors, direct thrombin inhibitors, or heparin). Thromb.Haemost. 74:1185 (1995). Performed By: #### L UPUSP ####[address] [place], [place] [phone] PNP Negative Normal Negative [facility] Comment on above: Performed By: #### L UPUSP ####[address] [phone] Protein mass conc g/dL Normal <20 [facility] Comment on above: Result Comment: < 20 [facility]U Nzzdkvrv05-03 SMU Low Positive> 80 [facility]U High PositiveThese results were obtained with the Prime ConnectionsA Lite B2 GPI IgM DAYNA. B2 GPI IgM values obtained with different manufacturers' assay methods may not be used interchangeably. The magnitude of the reported IgM levels cannot be correlated to an endpoint titer. Performed By: #### L UPUSP ####[address] [phone] PT Sec 10.1 sec Normal 9.7-13.0 [facility] Comment on above: Performed By: #### L UPUSP ####[address] [phone] Thrombin Time 16.1 sec Normal <18.6 [facility] Comment on above: Performed By: #### L UPUSP ####[address] [phone] Protein C Functionalon 04-20 Protein mass conc 104 % Normal 76-147 [facility] Comment on above: Performed By: #### W SR, PRCFUN, AT3ASY, PRSCLT, SERIMM, HOMCYS, IRON, FERR, B12, SERFOL, ANA1, HSCRP ####[place] [address] [place], [place] [phone] Protein S Clottableon 2017 Protein S Clottable 108 % Normal 59-131 [facility] Comment on above: Performed By: #### W SR, PRCFUN, AT3ASY, PRSCLT, SERIMM, HOMCYS, IRON, FERR, B12, SERFOL, ANA1, HSCRP ####[facility] [address] [place], [place] [phone] Prothrombin Gene PCRon 04-20 PT Gene Report (NOTE) Normal [facility] Comment on above: Result Comment: [facility] Pathologist: Alvina Sotomayor M.D., Ph.D.PT Gene Mutation Result: NORMALPT Gene Mutation Interpretation: The DNA sample is negative for [id number] point mutation in the 3' untranslated region of theprothrombin gene.This is not associated with an increased risk ofvenous thrombosis.Venous thrombosis is a multifactorial disorder, andother causes of venous thrombosis are not excluded.PT Gene Mutation Method: This assay was performed by polymerase chainreaction and fluorescence monitoring using hybridization probes. Performed By: #### P TGEN ####[facility] [place], [place] [phone] Remote CBCDIF (for [facility] use o nly)on 04-20-2018 Abs Baso <0.03 Normal 0.00-0.10 [facility] Abs Upton 0.48 k/uL Normal 0.00-0.86 [facility] Abs Neut 3.86 k/uL Normal 1.45-7.50 [facility] Basophils/100 WBC Auto (Bld) 0.3 % Normal [facility] Eosinophils Auto #/vol (Bld) 0.09 10*3/uL Normal 0.00-0.45 [facility] Eosinophils/100 WBC Auto (Bld) 1.4 % Normal [facility] Erythrocyte distribution width Auto Ratio (RBC) 11.9 % Normal 11.5-15.0 [facility] Hematocrit Auto Volume Fraction (Bld) 37.0 % Normal 36.0-46.0 [facility] Hemoglobin mass conc (Bld) 12.6 g/dL Normal 11.5-15.5 [facility] Lymphocytes Auto #/vol (Bld) 2.07 10*3/uL Normal 1.00-4.00 [facility] Lymphocytes/100 WBC Auto (Bld) 31.7 % Normal [facility] MCH Auto Entitic mass (RBC) 33.2 pG Normal 26.0-34.0 [facility] MCHC Auto mass conc (RBC) 34.1 g/dL Normal 30.5-36.0 [facility] MCV Auto Entitic volume (RBC) 97.4 fL Normal 80.0-100.0 [facility] Monocytes/100 WBC Auto (Bld) 7.4 % Normal [facility] Neutrophils/100 WBC Auto (Bld) 59.2 % Normal [facility] Platelet mean volume Auto Entitic volume (Bld) 10.7 fL Normal 9.0-12.7 [facility] Platelets Auto #/vol (Bld) 226 10*3/uL Normal 150-400 [facility] RBC Auto #/vol (Bld) 3.80 10*6/uL Low 3.90-5.20 [facility] WBC Auto #/vol (Bld) 6.52 10*3/uL Normal 3.70-11.00 [facility] Sed Rate Westergrenon 2017 Sed Rate Westergren 15 mm/hr Normal 0-20 [facility] Comment on above: Performed By: #### W SR, PRCFUN, AT3ASY, PRSCLT, SERIMM, HOMCYS, IRON, FERR, B12, SERFOL, ANA1, HSCRP ####[facility] [address] [place], [place] [phone] Ultra-sensitive CRPon 2017 Protein mass conc 11.1 mg/L High <3.1 [facility] Comment on above: Result Comment: (NOT E)hsCRP < 1.0 mg/L, relative risk is lowhsCRP 1.0-3.0 mg/L, relative risk is averagehsCRP > 3.0 mg/L, relative risk is highReference:Trevin TA, Salvador GA, Raman CHACKO, et al. Markers of Inflammationand Cardiovascular Disease. Application to Clinical and PublicHealth Practice. A Statement for Healthcare Professionals From theCenters for Disease Control and Prevention and the [place] [employer]Association. Circulation 2003;107:499-511. Performed By: #### W SR, PRCFUN, AT3ASY, PRSCLT, SERIMM, HOMCYS, IRON, FERR, B12, SERFOL, ANA1, HSCRP ####[facility] [place], [place] [phone] Vitamin B12on 04-20-2018 Cobalamin (Vitamin B12) mass conc 445 pg/mL Normal 232-1245 [facility] Comment on above: Performed By: #### W SR, PRCFUN, AT3ASY, PRSCLT, SERIMM, HOMCYS, IRON, FERR, B12, SERFOL, ANA1, HSCRP ####[facility] [address] [place], [place] [phone] CNOVSPon 04-15-2018 CNOVSP Visit (SP) Office (HEMACL) AZUL ONTIVEROS ([id number]) 1990 FDate Time Provider Department04/15/18 3:15 PM LATASHA HU HEMACL During your visit today, we recorded the following information about you: Temperature Pulse Respiration Blood pressure 98.8 degrees 82/minute 16/minute 130/83 Weight Height 118.3 kg 1.524 Emmettjudd Gene 04/15/2018 3:44 PM SignedPt states that she has been having some abdominal cramping for about 2-3 yearsnow. 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 NormalPT, PTT, platelet count.Normally elevated dilute Idalia viper venom time would suggest a anti-GPIantibody, she has negative GPI antibodies.It is likely this test was erroneous. 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.We'll also check for lupus screen with an ROSANA.Mild anemiaWe'll check iron studies, B-12, folate, sedimentation rate.Visit (SP) Office on 04/15/18-FACTOR V LEIDEN/PCR-PROTHROMBIN GENE PCR-PROTEIN S CLOTTABLE-PROTEIN C FUNCT-ANTITHROMBIN III-LUPUS ANTICOAG PL-B 2 GPI IGG AND NSJ-[id number] PANEL BLOOD SCRN-IRON + TIBC-FERRITIN BLD-VITAMIN B12 BLOOD-FOLATE SERUM-IMMUNOGLOBULINS YUSRA-LD LACTATE DEHYDRO-SED RATE [id number]-I-[id number] ULTRA SEN-ACTIVATED PTT-PROTHROMBIN TIME/PT-CBC + DIFF (FOR REMOTE [facility] USE)-COMP METABOLIC PANEL-ACTIVATED PTT-PROTHROMBIN TIME/PT-B 2 GPI IGG AND XYI-DOST-QICCAIQJQML AB-LUPUS ANTICOAG PL Return in about 4 months (around 08/15/2018), or labs on a friday or week., for repeat in 12 weeks. f/u in 14 weeks. . HISTORY OF PRESENT ILLNESS: This is a 27 year old female with limited past medical history of migraineheadaches and endometriosis, follows closely with Dr. Castro, gynecology forhistory of abnormal Pap testing. 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 She then had a LEEP procedure in 2017 whichagain showed HGSIL.She is on no medications. She takes a lot of midol and excedrin. She works [employer] [place] [employer] [place] [employer].Her mother has a history of cervical cancer and a stroke that developed afterbeing placed on control pills a few days after her of her son Shehad R sided weakness and still gets numbness.Maternal greatgrandmother and maternal grandfather had DVTs as well.Mother has three brothers, all of which have clots in their legs.She has dysmenorrhea, heavy and painful periods. Recently has been approvedfor Nexplanon control.Due to her family history, workup ensued which included normal studiesincluding prothrombin time, PTT, thrombin time, anticardiolipin antibodies,beta 2 glycoprotein antibodies. She did have an elevated dilute Idalia vipervenom time at 53.5 (less than 47 is normal) as well as hexagonal phospholipidneutralizing antibody was 17 (0-11). Hemoglobin slightly low at 11.9 with anMCV of 95.7. Normal platelets and white blood cells with normal white bloodcell differential..April 15, 2018No history of DVT, or miscarriage.Vitals: BP 130/83 Pulse 82 Temp (Src) 98.8 (Oral) Resp 16 Ht 5' 0 (1.52m) Wt 260 lb 12.8 oz (118.3kg) SpO2 100% BMI 50.93 kg/(m2). Bodysurface area is 2.24 meters squared. REVIEW OF SYSTEMS PHYSICAL EXAM ECOG PS: 0 NEGATIVES POSITIVES NEGATIVES POSITIVESGEN: fevers, sweats, chills. Overall feels well. feels well overall, nocomplaints. GEN: Well appearing, alert, in no acute distress, appears statedageSKIN: lesions, rash, itching. denies history of rashes. SKIN: Normalcolor, texture, turgor, no rashes or lesionsHEENT: significant headaches, changes in hearing, changes in vision, nosebleeds. ENT: No scleral icterus. NECK: Supple, no thyromegaly, no JVD.: dysuria, frequency or incontinence. LYMPH: No cervical, supraclavicular,axillary, inguinal adenopathy.RESP: dyspnea, cough, wheezing. LUNG: Clear to auscultation, no wheezing ralesor rhonchiCARD: chest pain, leg swelling, palpitations. HEART: Regular. No murmurs,gallop, or rubs. No ectopy.GI: abdominal pain, nausea, vomiting, diarrhea, constipation, melena,hematochezia. ABDM: Soft. Non-tender. Non-distended. Bowel sounds normal.No masses. No hepatosplenomegaly.HEME: prolonged bleeding, bruising, adenopathy. EXT: No clubbing, cyanosisor edema.MUSC: joint pain or swelling. denies significant arthritic history. MUSC:No joint swelling, deformity, or tenderness.NEURO: syncope, seizures, peripheral numbness or tingling. BACK: Notenderness to palpation. No flank tenderness.MEDICATIONS:No prescriptions on file.ALLERGIES:ALLERGIESAl lergen Reactions- Iodine RashPAST MEDICAL HISTORYDiagnosis Date- Abnormal blood cell count 03/[address] Castro- Cervical dysplasia- Dysmenorrhea- Genital warts- History of transfusion- Pelvic painPAST SURGICAL HISTORYProcedure Laterality Date- COLONSCOPY SCREENING HIGH RISK 09/22/2017FAMILY HISTORYProblem Relation Age of Onset- Arthritis Mother- Cancer Mother- Hypertension Mother- Other [OTHER] Mother cerebrovascular accident- Arthritis Father- Depression Father- Diabetes Father- Heart disease Father- Hypertension Father- alcohol abuse [OTHER] Father- bipolar disorder [OTHER] Father- hypercholesterolemia [OTHER] Father- peptic ulcer [OTHER] Father- h/o blood clots [OTHER] Father- Heart disease Maternal Grandmother- Depression Maternal Grandmother- Hypertension Maternal Grandmother- Alzheimer's Disease Maternal Grandfather- Hypertension Maternal Grandfather- Arthritis Maternal Grandfather- cerebrovascular accident [OTHER] Maternal Grandfather- COPD Paternal Grandmother- Arthritis Paternal Grandfather- Diabetes Paternal Grandfather- Hypertension Paternal Grandfather- hypercholesterolemia [OTHER] Paternal Grandfather- peptic ulcer [OTHER] Paternal GrandfatherSOCIAL HISTORY:Social HistorySubstance Use Topics- Smoking status: Never Smoker- Smokeless tobacco: Never Used- Alcohol use Yes Comment: moderate alcohol useCOUNSELING:I discussed with Azul the natural history, treated course, and prognosis ofPositive dilute idalia's viper venom time test (drvvt) (primary encounterdiagnosis); my impression as well as the rationale, logistics, risks,benefits, and alternatives to the management options noted above; and myrecommendations listed below. The patient Azul Allen verbalizedunderstanding and agreed with these recommendations and plan. I answered allquestions satisfactorily..Rowdy Hu D.O.Medical OncologistGrand Isle, [place]Referring Provider: CHAY CASTRO [[id number]]Allergies As of Date: 04/15/2018 Noted Allergy ReactionIODINE 04/15/2018 2 - RashDate Reviewed: 04/15/2018Reviewed by: Zee Mills - Fully AssessedReason for Visit: Consult [173] Cmt: Abnormal labsPrimary Visit Diagnosis: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) [R79.1]Order(s):FACTOR V LEIDEN/PCR [SQFVLEID] Order #: [id number] FUTURE PROTHROMBIN GENE PCR [SQPTGENE] Order #: [id number] FUTURE PROTEIN S CLOTTABLE [SQPRSCLT] Order #: [id number] FUTURE PROTEIN C FUNCT [SQPRCFUN] Order #: [id number] FUTURE ANTITHROMBIN III [BDHB9CAN] Order #: [id number] FUTURE LUPUS ANTICOAG PL [SQLUPUSP] Order #: [id number] FUTURE B 2 GPI IGG AND IGM [HAO6EOOJ] Order #: [id number] FUTURE ANTI-CARDIOLIPIN AB [SQCARDIO] Order #: [id number] FUTURE HOMOCYSTEINE [SQHOMCYS] Order #: [id number] FUTURE ROSANA PANEL BLOOD SCRN [SQANA1] Order #: [id number] FUTURE IRON + TIBC [SQIRON] Order #: [id number] FUTURE FERRITIN BLD [SQFERR] Order #: [id number] FUTURE VITAMIN B12 BLOOD [SQB12] Order #: [id number] FUTURE FOLATE SERUM [SQSERFOL] Order #: [id number] FUTURE IMMUNOGLOBULINS YUSRA [SQSERIMM] Order #: [id number] FUTURE LD LACTATE DEHYDRO [SQLD6] Order #: [id number] FUTURE SED RATE WESTERGREN [SQWSR] Order #: [id number] FUTURE C-REACTIVE ULTRA SEN [SQHSCRP] Order #: [id number] FUTURE ACTIVATED PTT [SQPTT] Order #: [id number] FUTURE PROTHROMBIN TIME/PT [SQPT] Order #: [id number] FUTURE CBC + DIFF (FOR REMOTE [facility] USE) [SQRCBCDF] Order #: [id number] FUTURE COMP METABOLIC PANEL [SQCMP] Order #: [id number] FUTURE ACTIVATED PTT [SQPTT] Order #: [id number] FUTURE PROTHROMBIN TIME/PT [SQPT] Order #: [id number] FUTURE B 2 GPI IGG AND IGM [KZC8MHZB] Order #: [id number] FUTURE ANTI-CARDIOLIPIN AB [SQCARDIO] Order #: [id number] FUTURE LUPUS ANTICOAG PL [SQLUPUSP] Order #: [id number] FUTUREDisposition: Return in about 4 months (around 08/15/2018), or labs on a friday or friday next week., for repeat in 12 weeks. f/u in 14 weeks. .Follow-up and Disposition History RecordedProblem List As Of Date 04/15/2018 Noted Resolved Positive dilute Idalia's viper venom time test*INVALID FOR*Visit Notes:>> Zee Mills FriApr 15, 2018 3:15 PM Status: SignedPt states that she has been having some abdominal cramping for about 2-3years now. She also states that she has always had headaches.Zee MillsEncounter Status:Closed by LATASHA HU DO on 04/19/18 Normal [facility] PROGRESSon 04-15-2018 Protein mass conc HNO ID: [id number] thor: Latasha HuSer: (none)Author Type: PhysicianType: Progress NotesFiled: 04/19/2018 9:38 AMNote Text:PATIENT NAME: Azul Llanos RomanzwilerMRN: [id number] PHYSICIAN: Chay Castro, [id number] [id number] CARE PHYSICIAN: No primary care provider on file.OTHER PHYSICIANS:CHIEF COMPLAINT: 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)ASSESSMENT/PLAN: (R79.1) 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 I have asked her to try to withholdall medications for 3 or 4 days prior to repeat testing.She will do this again 12 weeks after the original and if still elevatedwe'll be considered for referral to hematologic subspecialist at 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.We'll also check for lupus screen with an ROSANA.Mild anemiaWe'll check iron studies, B-12, folate, sedimentation rate.Visit (SP) Office on 04/15/18-FACTOR V LEIDEN/PCR-PROTHROMBIN GENE PCR-PROTEIN S CLOTTABLE-PROTEIN C FUNCT-ANTITHROMBIN III-LUPUS ANTICOAG PL-B 2 GPI IGG AND UZZ-IDFK-WUPOOIKJRHN [id number]-[id number] PANEL BLOOD SCRN-IRON + TIBC-FERRITIN BLD-VITAMIN B12 BLOOD-FOLATE SERUM-IMMUNOGLOBULINS YUSRA-LD LACTATE DEHYDRO-SED RATE [id number] ULTRA SEN-ACTIVATED PTT-PROTHROMBIN TIME/PT-CBC + DIFF (FOR REMOTE [facility] USE)-COMP METABOLIC PANEL-ACTIVATED PTT-PROTHROMBIN TIME/PT-B 2 GPI IGG AND GEH-SFLN-HALCDRCRISD AB-LUPUS ANTICOAG PL Return in about 4 months (around 08/15/2018), or labs on a friday orfriday next week., for repeat in 12 weeks. f/u in 14 weeks. . HISTORY OF PRESENT ILLNESS: This is a 27 year old female with limited past medical history ofmigraine headaches and endometriosis, follows closely with Dr. Castro,gynecology for history of abnormal Pap testing. His recent colposcopyperformed on 09/22/17 which showed HGSIL. She then had a LEEP procedure inferry 2017 which again showed HGSIL.She is on no medications. She takes a lot of midol and excedrin. Sheworks in [place] [employer] [place]Her mother has a history of cervical cancer and a stroke that developedafter being placed on control pills a few days after her ofher son She had R sided weakness and still gets numbness.Maternal greatgrandmother and maternal grandfather had DVTs as well.Mother has three brothers, all of which have clots in their legs.She has dysmenorrhea, heavy and painful periods. Recently has beenapproved for Nexplanon control.Due to her family history, workup ensued which included normal studiesincluding prothrombin time, PTT, thrombin time, anticardiolipinantibodies, beta 2 glycoprotein antibodies. She did have an elevateddilute Idalia viper venom time at 53.5 (less than 47 is normal) as wellas hexagonal phospholipid neutralizing antibody was 17 (0-11). Hemoglobinslightly low at 11.9 with an MCV of 95.7. Normal platelets and whiteblood cells with normal white blood cell differential..April 15, 2018No history of DVT, or miscarriage.Vitals: BP 130/83 Pulse 82 Temp (Src) 98.8 (Oral) Resp 16 Ht 5' 0 (1.52m) Wt 260 lb 12.8 oz (118.3kg) SpO2 100% BMI 50.93 kg/(m2).Body surface area is 2.24 meters squared. REVIEW OF SYSTEMS PHYSICAL EXAM ECOG PS: 0 NEGATIVES POSITIVES NEGATIVES POSITIVESGEN: fevers, sweats, chills. Overall feels well. feels well overall, nocomplaints. GEN: Well appearing, alert, in no acute distress, appearsstated ageSKIN: lesions, rash, itching. denies history of rashes. SKIN: Normalcolor, texture, turgor, no rashes or lesionsHEENT: significant headaches, changes in hearing, changes in vision, nosebleeds. ENT: No scleral icterus. NECK: Supple, no thyromegaly, no JVD.: dysuria, frequency or incontinence. LYMPH: No cervical,supraclavicular, axillary, inguinal adenopathy.RESP: dyspnea, cough, wheezing. LUNG: Clear to auscultation, no wheezingrales or rhonchiCARD: chest pain, leg swelling, palpitations. HEART: Regular. Nomurmurs, gallop, or rubs. No ectopy.GI: abdominal pain, nausea, vomiting, diarrhea, constipation, melena,hematochezia. ABDM: Soft. Non-tender. Non-distended. Bowel soundsnormal. No masses. No hepatosplenomegaly.HEME: prolonged bleeding, bruising, adenopathy. EXT: No clubbing,cyanosis or edema.MUSC: joint pain or swelling. denies significant arthritic history.MUSC: No joint swelling, deformity, or tenderness.NEURO: syncope, seizures, peripheral numbness or tingling. BACK: Notenderness to palpation. No flank tenderness.MEDICATIONS:No prescriptions on file.ALLERGIES:ALLERGIESAl lergen Reactions- Iodine RashPAST MEDICAL HISTORYDiagnosis Date- Abnormal blood cell count 03/[address] Castro- Cervical dysplasia- Dysmenorrhea- Genital warts- History of transfusion- Pelvic painPAST SURGICAL HISTORYProcedure Laterality Date- COLONSCOPY SCREENING HIGH RISK 09/22/2017FAMILY HISTORYProblem Relation Age of Onset- Arthritis Mother- Cancer Mother- Hypertension Mother- Other [OTHER] Mother cerebrovascular accident- Arthritis Father- Depression Father- Diabetes Father- Heart disease Father- Hypertension Father- alcohol abuse [OTHER] Father- bipolar disorder [OTHER] Father- hypercholesterolemia [OTHER] Father- peptic ulcer [OTHER] Father- h/o blood clots [OTHER] Father- Heart disease Maternal Grandmother- Depression Maternal Grandmother- Hypertension Maternal Grandmother- Alzheimer's Disease Maternal Grandfather- Hypertension Maternal Grandfather- Arthritis Maternal Grandfather- cerebrovascular accident [OTHER] Maternal Grandfather- COPD Paternal Grandmother- Arthritis Paternal Grandfather- Diabetes Paternal Grandfather- Hypertension Paternal Grandfather- hypercholesterolemia [OTHER] Paternal Grandfather- peptic ulcer [OTHER] Paternal GrandfatherSOCIAL HISTORY:Social HistorySubstance Use Topics- Smoking status: Never Smoker- Smokeless tobacco: Never Used- Alcohol use Yes Comment: moderate alcohol useCOUNSELING:I discussed with Azul the natural history, treated course, and prognosisof Positive dilute idalia's viper venom time test (drvvt) (primaryencounter diagnosis); my impression as well as the rationale, logistics,risks, benefits, and alternatives to the management options noted above;and my recommendations listed below. The patient Azul Allenverbalized understanding and agreed with these recommendations and plan.I answered all questions satisfactorily..Rowdy Hu D.O.Medical OncologistWhite [facility] Medical Center Vital Signs Date Time Vital Sign Value Performing Clinician Hedy miller 08-15-2023 09:18-0500 Blood Pressure Location Alexx Gupta [facility] [place] 08-15-2023 09:18-0500 Diastolic blood pressure 76 mm[Hg] Alexx Gupta [facility] [place] 08-15-2023 09:18-0500 Heart rate 92 /min Alexx Gupta [facility] [place] 08-15-2023 09:18-0500 Respiratory rate 16 /min Alexx Gupta [facility] [place] 08-15-2023 09:18-0500 Systolic blood pressure 119 mm[Hg] Alexx Gupta [facility] [place] 08-12-2023 11:20-0500 Body temperature 98.06 [degF] Alexx Gupta [facility] [place] 08-12-2023 11:20-0500 Diastolic blood pressure 90 mm[Hg] Alexx Mourany [facility] 08-12-2023 11:20-0500 Heart rate 114 /min Alexx Mourany [facility] 08-12-2023 11:20-0500 Systolic blood pressure 137 mm[Hg] Alexx Mourany [facility] 08-11-2023 13:20-0500 Diastolic blood pressure 85 mm[Hg] Glenn Nyeofferson [facility] 08-11-2023 13:20-0500 Heart rate 100 /min Glenn Nyeofferson [facility] 08-11-2023 13:20-0500 SaO2% (BldA) [Mass fraction] 100 % Glenn Christofferson [facility] 08-11-2023 13:20-0500 Systolic blood pressure 140 mm[Hg] Glenn Christofferson [facility] 08-06-2023 11:15-0500 Heart rate 77 /min Alexx Mourany [facility] 08-06-2023 11:15-0500 SaO2% (BldA) [Mass fraction] 97 % Alexx Mourany [facility] 08-06-2023 11:15-0500 Respiratory rate 16 /min Alexx Mourany [facility] 08-06-2023 11:14-0500 Diastolic blood pressure 87 mm[Hg] Alexx Mourany [facility] 08-06-2023 11:14-0500 Mean blood pressure 98 mm[Hg] Alexx Mourany [facility] 08-06-2023 11:14-0500 Systolic blood pressure 118 mm[Hg] Alexx Mourany [facility] 08-06-2023 09:59-0500 Heart rate 79 /min Alexx Mourany [facility] 08-06-2023 09:59-0500 SaO2% (BldA) [Mass fraction] 94 % Alexx Mourany [facility] 08-06-2023 09:59-0500 Diastolic blood pressure 82 mm[Hg] Alexx Mourany [facility] 08-06-2023 09:59-0500 Mean blood pressure 98 mm[Hg] Alexx Mourany [facility] 08-06-2023 09:59-0500 Systolic blood pressure 129 mm[Hg] Alexx Mourany [facility] 08-06-2023 09:59-0500 Respiratory rate 16 /min Alexx Mourany [facility] 08-06-2023 09:50-0500 Blood Pressure Location Alexx Mourany [facility] 08-06-2023 09:50-0500 Body temperature 98.06 [degF] Alexx Mourany [facility] 08-06-2023 09:50-0500 Diastolic blood pressure 92 mm[Hg] Alexx Mourany [facility] 08-06-2023 09:50-0500 Heart rate 80 /min Alexx Mourany [facility] 08-06-2023 09:50-0500 Mean blood pressure 103 mm[Hg] Alexx Mourany [facility] 08-06-2023 09:50-0500 Respiratory rate 20 /min Alexx Mourany [facility] 08-06-2023 09:50-0500 SaO2% (BldA) [Mass fraction] 93 % Alexx Mourany [facility] 08-06-2023 09:50-0500 Systolic blood pressure 124 mm[Hg] Alexx Mourany [facility] 08-06-2023 09:40-0500 Blood Pressure Location Alexx Mourany [facility] 08-06-2023 09:40-0500 Mean blood pressure 100 mm[Hg] Alexx Mourany [facility] 08-06-2023 09:40-0500 Respiratory rate 20 /min Alexx Mourany [facility] 08-06-2023 09:35-0500 Blood Pressure Location Alexx Mourany [facility] 08-06-2023 09:35-0500 Mean blood pressure 102 mm[Hg] Alexx Mourany [facility] 08-06-2023 09:35-0500 Respiratory rate 24 /min Alexx Mourany [facility] 08-06-2023 09:20-0500 Respiratory rate 19 /min Alexx Mourany [facility] 08-06-2023 06:11-0500 Mean blood pressure 79 mm[Hg] Alexx Mourany [facility] 08-06-2023 06:11-0500 Heart rate 84 /min Alexx Mourany [facility] 08-06-2023 06:08-0500 Body temperature 97.88 [degF] Alexx Mourany [facility] 07-25-2023 09:28-0500 Blood Pressure Location Alexx Mourany [facility] 07-25-2023 09:28-0500 Diastolic blood pressure 74 mm[Hg] Alexx Mourany [facility] 07-25-2023 09:28-0500 Heart rate 86 /min Alexx Mourany [facility] 07-25-2023 09:28-0500 Mean blood pressure 89 mm[Hg] Alexx Mourany [facility] 07-25-2023 09:28-0500 Systolic blood pressure 120 mm[Hg] Alexx Mourany [facility] 07-25-2023 09:28-0500 Heart rate 78 /min Alexx Mourany [facility] 07-25-2023 09:28-0500 SaO2% (BldA) [Mass fraction] 99 % Alexx Mourany [facility] 07-25-2023 09:28-0500 Respiratory rate 18 /min Alexx Mourany [facility] 07-25-2023 09:27-0500 Blood Pressure Location Alexx Mourany [facility] 07-25-2023 09:27-0500 Body temperature 97.88 [degF] Alexx Mourany [facility] 07-25-2023 09:27-0500 Diastolic blood pressure 83 mm[Hg] Alexx Mourany [facility] 07-25-2023 09:27-0500 Mean blood pressure 97 mm[Hg] Alexx Mourany [facility] 07-25-2023 09:27-0500 Systolic blood pressure 125 mm[Hg] Alexx Gavinourany [facility] 07-21-2023 14:40-0500 Diastolic blood pressure 81 mm[Hg] Alexx Gavinourany [facility] [place] 07-21-2023 14:40-0500 Heart rate 93 /min Alexx Mariaay [facility] [place] 07-21-2023 14:40-0500 Systolic blood pressure 121 mm[Hg] Alexx Mariaay [facility] 07-08-2023 13:57-0400 Blood Pressure Location Melissa Castillometz [facility] 07-08-2023 13:57-0400 Body temperature 96.98 [degF] Melissa Castillometz [facility] 07-08-2023 13:57-0400 Diastolic blood pressure 74 mm[Hg] Melissa Castillometz [facility] 07-08-2023 13:57-0400 Heart rate 87 /min Melissa Castillometz [facility] 07-08-2023 13:57-0400 Respiratory rate 16 /min Melissa Castillometz [facility] 07-08-2023 13:57-0400 Systolic blood pressure 111 mm[Hg] Melissa Castillometz [facility] 06-23-2023 12:53-0400 Diastolic blood pressure 68 mm[Hg] Alexx Pena [facility] 06-23-2023 12:53-0400 Heart rate 79 /min Alexx Pena [facility] 06-23-2023 12:53-0400 Mean blood pressure 76 mm[Hg] Alexx Jean [facility] 06-23-2023 12:53-0400 Respiratory rate 24 /min Alexx Jean [facility] 06-23-2023 12:53-0400 SaO2% (BldA) [Mass fraction] 100 % Alexx Jean [facility] 06-23-2023 12:53-0400 Systolic blood pressure 91 mm[Hg] Alexx Jean [facility] 06-23-2023 12:30-0400 Diastolic blood pressure 66 mm[Hg] Alexx Jean [facility] 06-23-2023 12:30-0400 Heart rate 81 /min Alexx Jean [facility] 06-23-2023 12:30-0400 Mean blood pressure 78 mm[Hg] Alexx Jean [facility] 06-23-2023 12:30-0400 Respiratory rate 13 /min Alexx Jean [facility] 06-23-2023 12:30-0400 SaO2% (BldA) [Mass fraction] 100 % Alexx Jean [facility] 06-23-2023 12:30-0400 Systolic blood pressure 102 mm[Hg] Alexx Jean [facility] 06-23-2023 12:00-0400 Diastolic blood pressure 67 mm[Hg] Alexx Jean [facility] 06-23-2023 12:00-0400 Heart rate 70 /min Alexx Jean [facility] 06-23-2023 12:00-0400 Mean blood pressure 83 mm[Hg] Alexx Jean [facility] 06-23-2023 12:00-0400 SaO2% (BldA) [Mass fraction] 99 % Alexx Pena [facility] 06-23-2023 12:00-0400 Systolic blood pressure 115 mm[Hg] Alexx Pena [facility] 06-23-2023 09:50-0400 Respiratory rate 20 /min Alexx Pena [facility] 06-23-2023 09:23-0400 Body temperature 98.24 [degF] Alexx Pena [facility] 06-23-2023 09:23-0400 Heart rate 81 /min Alexx Pena [facility] 06-23-2023 09:23-0400 Respiratory rate 16 /min Alexx Pena [facility] 09-14-2022 10:30-0500 Body height 157.48 cm Thania Joseline Other [facility] Other 09-14-2022 10:30-0500 Body mass index (BMI) [Ratio] 49.74 kg/m2 Thania Joseline Other [facility] Other 09-14-2022 10:30-0500 Body temperature 97.7 [degF] Thania Joseline Other [facility] Other 09-14-2022 10:30-0500 Body weight 123.38 kg Thania Joseline Other [facility] Other 09-14-2022 10:30-0500 Diastolic blood pressure 97 mm[Hg] Thania Joseline Other [facility] Other 09-14-2022 10:30-0500 Respiratory rate 18 /min Thania Trevizo Other [facility] Other 09-14-2022 10:30-0500 SaO2% (BldA) [Mass fraction] 100 % Thania Trevizo Other [facility] Other 09-14-2022 10:30-0500 Systolic blood pressure 140 mm[Hg] Thania Trevizo Other [facility] Other 05-31-2022 16:10-0400 Body height 157.48 cm Mayra Astorga Other [facility] Other 05-31-2022 16:10-0400 Body mass index (BMI) [Ratio] 48.98 kg/m2 Mayra Astorga Other [facility] Other 05-31-2022 16:10-0400 Body temperature 97.9 [degF] Mayra Astorga Other [facility] Other 05-31-2022 16:10-0400 Body weight 121.47 kg Mayra Astorga Other [facility] Other 05-31-2022 16:10-0400 Diastolic blood pressure 84 mm[Hg] Mayra Astorga Other [facility] Other 05-31-2022 16:10-0400 Respiratory rate 18 /min Mayra Astorga Other [facility] Other 05-31-2022 16:10-0400 SaO2% (BldA) [Mass fraction] 99 % Mayra Astorga Other [facility] Other 05-31-2022 16:10-0400 Systolic blood pressure 129 mm[Hg] Mayra Astorga Other [facility] 3ROAM Other Encounters Encounter Date Encounter Type Care Provider Facility Start: 09-17-2023 End: 09-17-2023 Patient encounter procedure Glenn Gupta [facility] Start: 09-15-2023 End: 09-15-2023 ambulatory CHAY CASTRO Not Available Start: 08-27-2023 End: 08-27-2023 ambulatory TEZ ANGEL Not Available Start: 08-15-2023 End: 08-16-2023 ambulatory Alexx Gupta Facility:[facility] Start: 08-15-2023 End: 08-15-2023 Patient encounter procedure Alexx Gupta [facility] Start: 08-12-2023 End: 08-13-2023 ambulatory Alexx Gupta Facility:[facility] Start: 08-12-2023 End: 08-12-2023 Patient encounter procedure Alexx Gupta [facility] Start: 08-11-2023 End: 08-12-2023 ambulatory Glenn Gupta Facility:[facility] Start: 08-11-2023 End: 08-11-2023 Patient encounter procedure Glenn Gupta [facility] Start: 08-06-2023 End: 08-06-2023 ambulatory Alexx Gupta Facility:[facility] Start: 08-06-2023 End: 08-06-2023 Admission to same day surgery center Alexx Gupta [facility] Start: 07-25-2023 End: 07-26-2023 ambulatory Alexx Gupta Facility:[facility] Start: 07-25-2023 End: 07-25-2023 Patient encounter procedure Alexx Gupta [facility] Start: 2023 End: 07-25-2023 ambulatory TEZ ANGEL Facility:[facility] Start: 2023 End: 2023 Patient encounter procedure TEZ HANKINSR [facility] Start: 07-21-2023 End: 07-22-2023 ambulatory Alexx Gupta Facility:[facility] Start: 07-21-2023 End: 07-21-2023 Patient encounter procedure Alexx Gupta [facility] Start: 07-18-2023 ambulatory Alexx Gupta Facility:[facility] Start: 07-14-2023 End: 07-15-2023 ambulatory Melissa Nunez Facility:[facility] Start: 07-14-2023 End: 07-14-2023 Patient encounter procedure Melissa Nunez [facility] Start: 07-08-2023 End: 07-09-2023 ambulatory Melissa Nunez Facility:[facility] Start: 07-08-2023 End: 07-08-2023 Patient encounter procedure Melissa Nunez [facility] Start: 07-07-2023 End: 07-08-2023 ambulatory TEZ ANGEL Facility:[facility] Start: 07-07-2023 End: 07-07-2023 Patient encounter procedure Alexx Gupta [facility] Start: 06-25-2023 [facility]ulatory [facility] Start: 06-23-2023 End: 06-23-2023 Emergency department patient visit Alexx Pena Facility:[facility] Start: 06-23-2023 End: 06-23-2023 Emergency department patient visit Alexx Pena [facility] Start: 01-29-[address] CHAY CASTRO . Facili ty:[facility] Start: 01-09-2023 End: 01-10-[address] CHAY CASTRO . Facility:[facility] Start: 12-31-2022 End: 12-31-[address] CHAY CASTRO . Facility:[facility] Start: 12-06-2022 End: 12-07-[address] CHAY CASTRO . Facility:[facility] Start: 12-04-2022 End: 12-05-[address] CHAY CASTRO . Facility:[facility] Start: 10-22-2022 End: 10-23-[address] YONAS ANTON . Facility:[facility] Start: 10-10-2022 Encounter for genera l adult medical examination without abnormal findings DR TEZ ANGEL [facility] Start: 10-09-2022 End: 10-10-[address] TEZ ANGEL Facility:[facility] Start: 10-09-2022 End: 10-10-2022 Encounter for general adult medical examination without abnormal findings DR TEZ ANGEL Facility:[facility] Start: 09-14-2022 End: 09-14-2022 ambulatory Thania Trevizo Other [facility] Other Start: 09-14-2022 Office outpatient visit 15 minutes Thania Trevizo [facility] Start: 07-23-2022 End: [address] YONAS ANTON . Facility:[facility] Start: 07-16-[address] YONAS ANTON . Faci lity:[facility] Start: 06-04-2022 End: 06-05-[address] YONAS ANTON . Facility:[facility] Start: 05-31-2022 End: 05-31-2022 ambulatory Mayra Astorga Other [facility] Other Start: 05-31-2022 Office outpatient ne w 30 minutes Mayra Astorga [facility] Start: 05-02-2022 End: 05-03-[address] CHAY CASTRO . Facility:[facility] Start: 04-09-2022 End: 04-09-[address] CHAY CASTRO . Facility:[facility] Start: 08-06-2018 End: 08-07-2018 Patient encounter procedure SHANT Lovett SONIARAAD [facility] Start: 07-28-2018 End: 07-28-2018 Patient encounter procedure SHANT Lovett NICK [facility] Start: 07-28-2018 End: 07-28-2018 Patient encounter procedure LATASHA HU [facility] Start: 07-08-2018 End: 07-08-2018 Patient encounter procedure MINDY GARCIA [facility] Start: 04-20-2018 End: 04-21-2018 Patient encounter procedure LATASHA HU [facility] Start: 04-15-2018 End: 04-20-2018 Patient encounter procedure LATASHA HU [facility] Procedures Date Procedure Procedure Detail Performing Clinician Start: 08-06-2023 Robot assisted lapar oscopic cholecystectomy Alexx Gupta Colposcopy Alexx Pena Fasciotomy of foot Alexx morrell H/O: tubal ligation Alexx meneses Laparoscopy Alexx Pena Loop electrosurgical excision procedure Alexx Pena Immunizations Immunization Date Immunization Notes Care Provider Gracy kidd 12-02-2021 SARS-CoV-2 mRNA (xxfhwesotok-vswc-tlau ose) vaccine Alexx Gupta [facility] 01-05-2021 SARS-CoV-2 (COVID-19 ) Ad26 vaccine, recombinant Alexx Pena [facility] [place] 12-15-2020 SARS-CoV-2 (COVID-19 ) Ad26 vaccine, recombinant Alexx Pena [facility] [place] 01-22-2002 measles, mumps and rubella virus vaccine Alexx Gupta [facility] NEGATED: Highlighted row has not occurred!07-07-2023 influenza virus vaccine, unspecified formulation Alexx Gupta [facility] Payers Date Payer Category Payer Medicaid [id number] 1990 Unknown [id number] 2.16.84 0.1.989973.3.579.2.593 1989 Unknown [id number] 2.16.84 0.1.847324.3.579.2.593 1989 Unknown [id number] 2.16.84 0.1.935166.3.579.2.593 1989 Unknown [id number] 2.16.84 0.1.547915.3.579.2.593 1989 Unknown [id number] 2.16.84 0.1.177418.3.579.2.593 1989 Unknown [id number] 2.16.84 0.1.283749.3.579.2.593 1989 Unknown [id number] 2.16.84 0.1.824408.3.579.2.593 1989 Unknown [id number] 2.16.84 0.1.137535.3.579.2.593 1989 Unknown [id number] 2.16.84 0.1.907601.3.579.2.593 1989 Unknown [id number] 2.16.84 0.1.662283.3.579.2.593 1989 Unknown [id number] 2.16.84 0.1.831189.3.579.2.593 1989 Unknown [id number] 2.16.84 0.1.833535.3.579.2.593 1989 Unknown [id number] 2.16.8 40.1.335883.3.579.2.727 1989 Unknown [id number] 2.16.8 40.1.434096.3.579.2.727 1989 Unknown [id number] 2.16.8 40.1.282808.3.579.2.727 1989 Unknown [id number] 2.16.8 40.1.983905.3.579.2.727 1989 Unknown [id number] 2.16.8 40.1.406617.3.579.2.727 1989 Unknown [id number] 2.16.8 40.1.083111.3.579.2.727 1989 Unknown [id number] 2.16.8 40.1.009669.3.579.2.727 1989 Unknown [id number] 2.16.8 40.1.340813.3.579.2.727 1989 Unknown [id number] 2.16.8 40.1.814722.3.579.2.727 1989 Unknown [id number] 2.16.8 40.1.517802.3.579.2.727 1989 Unknown [id number] 2.16.8 40.1.608590.3.579.2.727 1989 Unknown [id number] 2.16.8 40.1.696375.3.579.2.727 1989 Unknown [id number] 2.16.8 40.1.937492.3.579.2.727 1989 Unknown [id number] 2.16.840 .1.576815.3.579.2.1259 1989 Unknown [id number] 2.16.840 .1.937217.3.579.2.1259 1959 Unknown [id number] 2.1 6.840.1.211206.19 Social History Date Type Detail Facility Unknown if ever smoked [facility] Other Sex Assigned At [facility] Start: 08-10-2021 Tobacco smoking status Smokeless tobacco user within last 30 days [facility] Start: 07-08-2023 End: 08-15-2023 Tobacco smoking status Never smoked tobacco (finding) [facility] Tobacco smoking status Smoker (finding) [facility] [place] Tobacco Cigarettes [facility] Comment on above: social smoker, coupl e times per month Tobacco smoking status No Smoking Status Entered [facility] Functional Status Date Assessment Result Facility 08-15-2023 Functional Status N/A [facility] [place] 08-11-2023 Functional Status No [facility] 07-25-2023 Functional Status No [facility] 07-08-2023 Functional Status N/A [facility] 06-23-2023 Functional Status N/A [facility] Clinical Notes 05-31-2022 to 08-06-2023 Note Date & Type Note Facility 08-06-2023 Evaluation + Plan note Extrac shankar from: Title:ANES Post-operative Note - General Author: Mauricio Chang Jr., DO Date:08/06/23 Plan Transfer/Discharge: Transfer/Discharge Discharge when meets criteria ( From PACU to Ambulatory Surgery Unit, and To home ). Extracted from: Title:[facility] Pre-operative Note - Adult Author:Mauricio Guerrero Jr., DO Date:08/06/23 Plan [employer] (ASA) physical status classification: Class IV. Anesthetic Preoperative Plan: Anesthesia General. Future Appointments Appointment Date:08/11/2023 01:30:00 PM Scheduled Provider:Glenn Gupta MD [facility] Type:Cardiology New Patient (FT) Appointment Date:08/15/2023 09:20:00 AM Scheduled Provider:Alexx Gupta MD Location:[facility] Appointment Type: Post Op 15 Future Scheduled Tests Laboratory* Fecal WBC Lactoferrin 07/08/23 * Giardia lamblia, Direct Detection EIA 07/08/23 * O & P Exam, Routine 07/08/23 * Clostridium Difficile PCR 07/08/23 * Enteric Panel by PCR 07/08/23 [facility]11-29-2023 Hospital Discharge instructions Patient Education 08/06/2023 09:54:35 Post Op Patient Instructions - (CUSTOM) 08/06/2023 09:34:07 Minimally Invasive Cholecystectomy, Care After Minimally Invasive Cholecystectomy, Care After The following information offers guidance on how to care for yourself after your procedure. Your health care provider may also give you more specific instructions. If you have problems or questions, contact your health care provider. What can I expect after the procedure? After the procedure, it is common to have: Pain at your incision sites. You will be given medicines to control this pain. Mild nausea or vomiting. Bloating and possible shoulder pain from the gas that was used during the procedure. Follow these instructions at home: Medicines Take cthu-qzb-uuijdea and prescription medicines only as told by your health care provider. If you were prescribed an antibiotic medicine, take it as told by your health care provider. Do notstop using the antibiotic even if you start to feel better. Ask your health care provider if the medicine prescribed to you: ?Requires you to avoid driving or using machinery. ?Can cause constipation. You may need to take these actions to prevent or treat constipation: ?Drink enough fluid to keep your urine pale yellow. ?Take piht-fld-zuxqsxx or prescription medicines. ?Eat foods that are high in fiber, such as beans, whole grains, and fresh fruits and vegetables. ?Limit foods that are high in fat and processed sugars, such as fried or sweet foods. Incision care Follow instructions from your health care provider about how to take care of your incisions. Make sure you: ?Wash your hands with soap and water for at least 20 seconds before and after you change your bandage (dressing). If soap and water are not available, use hand employment specialist. ?Change your dressing as told by your health care provider. ?Leave stitches (sutures), skin glue, or adhesive strips in place. These skin closures may need to be in place for 2 weeks or longer. If adhesive strip edges start to loosen and curl up, you may trimthe loose edges. Do not remove adhesive strips completely unless your health care provider tells you to do that. Do not take baths, swim, or use a hot tub until your health care provider approves. Ask your healthcare provider if you may take showers. You may only be allowed to take sponge baths. Check your incision area every day for signs of infection. Check for: ?More redness, swelling, or pain. ?Fluid or blood. ?Warmth. ?Pus or a bad smell. Activity Rest as told by your health care provider. Do not do activities that require a lot of effort. Avoid sitting for a long time without moving. Get up to take short walks every 1 2 hours. This is important to improve blood flow and breathing. Ask for help if you feel weak or unsteady. Do not lift anything that is heavier than 10 lb (4.5 kg), or the limit that you are told, until your health care provider says that it is safe. Do not play contact sports until your health care provider approves. Do not return to work or school until your health care provider approves. Return to your normal activities as told by your health care provider. Ask your health care provider what activities are safe for you. General instructions If you were given a sedative during the procedure, it can affect you for several hours. Do not drive or operate machinery until your health care provider says that it is safe. Keep all follow-up visits. This is important. Contact a health care provider if: You develop a rash. You have more redness, swelling, or pain around your incisions. You have fluid or blood coming from your incisions. Your incisions feel warm to the touch. You have pus or a bad smell coming from your incisions. You have a fever. One or more of your incisions breaks open. Get help right away if: You have trouble breathing. You have chest pain. You have more pain in your shoulders. You faint or feel dizzy when you stand. You have severe pain in your abdomen. You have nausea or vomiting that lasts for more than one day. You have leg pain that is new or unusual, or if it is localized to one specific spot. These symptoms may represent a serious problem that is an emergency. Do not wait to see if the symptoms will go away. Get medical help right away. Call your local emergency services (911 in the [place] Do not drive yourself to the hospital. Summary After your procedure, it is common to have pain at the incision sites. You may also have nausea or bloating. Follow your health care provider's instructions about medicine, activity restrictions, and caring for your incision areas. Do not do activities that require a lot of effort. Contact a health care provider if you have a fever or other signs of infection, such as more redness, swelling, or pain around the incisions. Get help right away if you have chest pain, increasing pain in the shoulders, or trouble breathing. This information is not intended to replace advice given to you by your health care provider. Make sure you discuss any questions you have with your health care provider. Document Revised: 02/26/2022 Document Reviewed: 02/26/2022 [employer] Patient Education 2022 [employer]. Follow Up Care 07/21/2023 15:18:13 With:Alexx Gupta Address: [address] [place] [phone] Business (1) When: Unknown Comments:Appointment has already been scheduled [facility]11-29-2023 NoteHistory and Physical Update H&P Reviewed. 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 Medications buPROPion 150 mg ER Tab, 150 mg= 1 tab(s), Oral, Daily buPROPion 300 mg/24 hours ER Tab HYDROmorphone 1 mg/mL injectable solution, 0.4 mg= 0.4 mL, IV Push, q4min, PRN hydrOXYzine hydrochloride 50 mg oral tablet Lactated Ringers IV Carolin 1000 mL 1,000 mL, 1000 mL, IV Lactated Ringers IV Carolin 1000 mL 1,000 mL, 1000 mL, IV Lasix 40 mg Tab, 40 mg= 1 tab(s), Oral, Daily, PRN Levoxyl 75 mcg (0.075 mg) oral tablet, 75 mcg= 1 tab(s), Oral, Daily LORazepam 0.5 mg Tab, 0.5 mg= 1 tab(s), Oral, Once, PRN magnesium amino acids chelate 100 mg oral tablet, 100 mg= 1 tab(s), Oral, Daily meclizine 12.5 mg Tab, 12.5 mg= 1 tab(s), Oral, TID, PRN NuLYTELY Quach oral powder for reconstitution, See Instructions, Not taking Percocet 5 mg-325 mg oral tablet, 1 tab(s), Oral, q6hr, PRN Phenergan 25 mg/mL Injection, 12.5 mg= 0.5 mL, IV Push, q2min, PRN potassium chloride 20 mEq ER Tab, 20 mEq= 1 tab(s), Oral, Daily, PRN Protonix 40 mg Tab-DR, 40 mg= 1 tab(s), Oral, Daily, 1 refills SUMAtriptan 25 mg Tab topiramate 50 mg Tab Vitamin D3 2000 intl units oral tablet Zofran ODT 4 mg Tab, 4 mg= 1 tab(s), Oral, q6hr, PRN Allergies Vicodin (Vomiting) iodine (Hives) steri strips (Itching, Rash) Social History Alcohol - Denies Alcohol Use, 08/10/2021 Substance Abuse - Denies Substance Abuse, 08/10/2021 Tobacco Cigarettes, 07/25/2023 Never (less than 100 in lifetime), Smoker, current status unknown Tobacco Use:. Smokeless tobacco user within last 30 days, Former vaping or e-cigarette use Smokeless Tobacco Use:. Vaping, Started age 27.0 Years., 07/21/2023 Family History Cervical cancer: Mother. Depression: Father and Brother. Hypertension: Mother, Father and Brother. TIA: Mother.[facility]11-20-2023 Note [id number] [facility] 07-[facility]23 Hospital Discharge instructions Patient Education 07/21/2023 15:07:44 Obesity, Adult Obesity, Adult Obesity is the condition of having too much total body fat. Being overweight or obese means that your weight is greater than what is considered healthy for your body size. Obesity is determined by a measurement called BMI (body mass index). BMI is an estimate of body fat and is calculated from height and weight. For adults, a BMI of 30 or higher is considered obese. Obesity can lead to other health concerns and major illnesses, including: Stroke. Coronary artery disease (CAD). Type 2 diabetes. Some types of cancer, including cancers of the colon, breast, uterus, and gallbladder. High blood pressure (hypertension). High cholesterol. Gallbladder stones. Obesity can also contribute to: Osteoarthritis. Sleep apnea. Infertility problems. What are the causes? Common causes of this condition include: Eating daily meals that are high in calories, sugar, and fat. Drinking high amounts of sugar-sweetened beverages, such as soft drinks. Being born with genes that may make you more likely to become obese. Having a medical condition that causes obesity, including: ?Hypothyroidism. ?Polycystic ovarian syndrome (PCOS). ?Binge-eating disorder. ?Leo syndrome. Taking certain medicines, such as steroids, antidepressants, and seizure medicines. Not being physically active (sedentary lifestyle). Not getting enough sleep. What increases the risk? The following factors may make you more likely to develop this condition: Having a family history of obesity. Living in an area with limited access to: ?Ami, recreation centers, or sidewalks. ?Healthy food choices, such as grocery stores and [employer] markets. What are the signs or symptoms? The main sign of this condition is having too much body fat. How is this diagnosed? This condition is diagnosed based on: Your BMI. If you are an adult with a BMI of 30 or higher, you are considered obese. Your waist circumference. This measures the distance around your waistline. Your skinfold thickness. Your health care provider may gently pinch a fold of your skin and measureit. You may have other tests to check for underlying conditions. How is this treated? Treatment for this condition often includes changing your lifestyle. Treatment may include some or all of the following: Dietary changes. This may include developing a healthy meal plan. Regular physical activity. This may include activity that causes your heart to beat faster (aerobicexercise) and strength training. Work with your health care provider to design an exercise program that works for you. Medicine to help you lose weight if you are unable to lose one pound a week after six weeks of healthy eating and more physical activity. Treating conditions that cause the obesity (underlying conditions). Surgery. Surgical options may include gastric banding and gastric bypass. Surgery may be done if: ?Other treatments have not helped to improve your condition. ?You have a BMI of 40 or higher. ?You have life-threatening health problems related to obesity. Follow these instructions at home: Eating and drinking Follow recommendations from your health care provider about what you eat and drink. Your health care provider may advise you to: ?Limit fast food, sweets, and processed snack foods. ?Choose low-fat options, such as low-fat milk instead of whole milk. ?Eat five or more servings of fruits or vegetables every day. ?Choose healthy foods when you eat out. ?Keep low-fat snacks available. ?Limit sugary drinks, such as soda, fruit juice, sweetened iced tea, and flavored milk. Drink enough water to keep your urine pale yellow. Do not follow a fad diet. Fad diets can be unhealthy and even dangerous. Other healthful choices include: ?Eat at home more often. This gives you more control over what you eat. ?Learn to read food labels. This will help you understand how much food is considered one serving. ?Learn what a healthy serving size is. Physical activity Exercise regularly, as told by your health care provider. ?Most adults should get up to 150 minutes of moderate-intensity exercise every week. ?Ask your health care provider what types of exercise are safe for you and how often you should exercise. Warm up and stretch before being active. Cool down and stretch after being active. Rest between periods of activity. Lifestyle Work with your health care provider and a dietitian to set a weight-loss goal that is healthy and reasonable for you. Limit your screen time. Find ways to reward yourself that do not involve food. Do not drink alcohol if: ?Your health care provider tells you not to drink. ?You are , may be , or are planning to become . If you drink alcohol: ?Limit how much you have to: ?0 1 drink a day for women. ?0 2 drinks a day for men. ?Know how much alcohol is in your drink. In the [place] one drink equals one 12 oz bottle of beer (355 mL), one 5 oz glass of wine (148 mL), or one 1 oz glass of hard liquor (44 mL). General instructions Keep a weight-loss journal to keep track of the food you eat and how much exercise you get. Take amwg-pbm-mirdlsg and prescription medicines only as told by your health care provider. Take vitamins and supplements only as told by your health care provider. Consider joining a support group. Your health care provider may be able to recommend a support group. Pay attention to your mental health as obesity can lead to depression or self esteem issues. Keep all follow-up visits. This is important. Contact a health care provider if: You are unable to meet your weight-loss goal after six weeks of dietary and lifestyle changes. You have trouble breathing. Summary Obesity is the condition of having too much total body fat. Being overweight or obese means that your weight is greater than what is considered healthy for your body size. Work with your health care provider and a dietitian to set a weight-loss goal that is healthy and reasonable for you. Exercise regularly, as told by your health care provider. Ask your health care provider what types of exercise are safe for you and how often you should exercise. This information is not intended to replace advice given to you by your health care provider. Make sure you discuss any questions you have with your health care provider. Document Revised: 04/02/2022 Document Reviewed: 04/02/2022 [employer] Patient Education 2022 [employer]. [facility] [place] 10-31-2023 Hospital Discharge instructions Patient Education 07/08/2023 14:43:12 Nausea, Adult Nausea, Adult Nausea is the feeling of having an upset stomach or that you are about to vomit. Nausea on its own is not usually a serious concern, but it may be an early sign of a more serious medical problem. As nausea gets worse, it can lead to vomiting. If vomiting develops, or if you are not able to drink enough fluids, you are at risk of becoming dehydrated. Dehydration can make you tired and thirsty, cause you to have a dry mouth, and decrease how often you urinate. Older adults and people with other diseases or a weak disease-fighting system (immune system) are at higher risk for dehydration. The main goals of treating your nausea are: To relieve your nausea. To limit repeated nausea episodes. To prevent vomiting and dehydration. Follow these instructions at home: Watch your symptoms for any changes. Tell your health care provider about them. Eating and drinking Take an oral rehydration solution (ORS). This is a drink that is sold at pharmacies and retail stores. Drink clear fluids slowly and in small amounts as you are able. Clear fluids include water, ice chips, low-calorie sports drinks, and fruit juice that has water added (diluted fruit juice). Eat bland, rgdx-qa-dvzdtv foods in small amounts as you are able. These foods include bananas, applesauce, rice, lean meats, toast, and crackers. Avoid drinking fluids that contain a lot of sugar or caffeine, such as energy drinks, sports drinks, and soda. Avoid alcohol. Avoid spicy or fatty foods. General instructions Take qyld-tat-dvsftsw and prescription medicines only as told by your health care provider. Rest at home while you recover. Drink enough fluid to keep your urine pale yellow. Breathe slowly and deeply when you feel nauseous. Avoid smelling things that have strong odors. Wash your hands often using soap and water for at least 20 seconds. If soap and water are not available, use hand employment specialist. Make sure that everyone in your household washes their hands well and often. Keep all follow-up visits. This is important. Contact a health care provider if: Your nausea gets worse. Your nausea does not go away after two days. You vomit multiple times. You cannot drink fluids without vomiting. You have any of the following: ?New symptoms. ?A fever. ?A headache. ?Muscle cramps. ?A rash. ?Pain while urinating. You feel light-headed or dizzy. Get help right away if: You have pain in your chest, neck, arm, or jaw. You feel extremely weak or you faint. You have vomit that is bright red or looks like coffee grounds. You have bloody or black stools (feces) or stools that look like tar. You have a severe headache, a stiff neck, or both. You have severe pain, cramping, or bloating in your abdomen. You have difficulty breathing or are breathing very quickly. Your heart is beating very quickly. Your skin feels cold and clammy. You feel confused. You have signs of dehydration, such as: ?Dark urine, very little urine, or no urine. ?Cracked lips. ?Dry mouth. ?Sunken eyes. ?Sleepiness. ?Weakness. These symptoms may be an emergency. Get help right away. Call 911. Do not wait to see if the symptoms will go away. Do not drive yourself to the hospital. Summary Nausea is the feeling that you have an upset stomach or that you are about to vomit. Nausea on its own is not usually a serious concern, but it may be an early sign of a more serious medical problem. If vomiting develops, or if you are not able to drink enough fluids, you are at risk of becoming dehydrated. Follow recommendations for eating and drinking and take wavx-jxy-asbdpkr and prescription medicinesonly as told by your health care provider. Contact a health care provider right away if your symptoms worsen or you have new symptoms. Keep all follow-up visits. This is important. This information is not intended to replace advice given to you by your health care provider. Make sure you discuss any questions you have with your health care provider. Document Revised: 03/01/2022 Document Reviewed: 03/01/2022 [employer] Patient Education 2022 [employer]. Follow Up Care 06/25/2023 15:34:03 With:Melissa Nunez CNP Address: When:1 to 2 weeks Comments:Following EGD/Colonoscopy. [facility] 10-31-2023 Evaluation + Plan note Future Scheduled Tests Laboratory* Fecal WBC Lactoferrin 07/08/23 * Giardia lamblia, Direct Detection EIA 07/08/23 * O & P Exam, Routine 07/08/23 * Clostridium Difficile PCR 07/08/23 * Enteric Panel by PCR 07/08/23 Radiology* US Gallbladder 07/08/23 [facility] 10-16-2023 Hospital Discharge instructions Patient Education 06/23/2023 12:53:51 Gastritis, Adult Gastritis, Adult Gastritis is inflammation of the stomach. There are two kinds of gastritis: Acute gastritis. This kind develops suddenly. Chronic gastritis. This kind is much more common. It develops slowly and lasts for a long time. Gastritis happens when the lining of the stomach becomes weak or gets damaged. Without treatment, gastritis can lead to stomach bleeding and ulcers. What are the causes? This condition may be caused by: An infection. Drinking too much alcohol. Certain medicines. These include steroids, antibiotics, and some jfsw-hoc-bqcwuvb medicines, such as aspirin or ibuprofen. Having too much acid in the stomach. Having a disease of the stomach. Other causes may include: An allergic reaction. Some cancer treatments (radiation). Smoking cigarettes or the use of products that contain nicotine or tobacco. In some cases, the cause of this condition is not known. What increases the risk? Having a disease of the intestines. Having a disease in which the body's immune system attacks the body (autoimmune disease), such as Crohn's disease. Using aspirin or ibuprofen and other NSAIDs to treat other conditions, such as heart disease or chronic pain. Stress. What are the signs or symptoms? Symptoms of this condition include: Pain or a burning sensation in the upper abdomen. Nausea. Vomiting. An uncomfortable feeling of fullness after eating. Weight loss. Bad breath. Blood in your vomit or stool (feces). In some cases, there are no symptoms. How is this diagnosed? This condition may be diagnosed based on your medical history, a physical exam, and tests. Tests may include: Your medical history and a description of your symptoms. A physical exam. Tests. These can include: ?Blood tests. ?Stool tests. ?A test in which a thin, flexible instrument with a light and a camera is passed down the esophagusand into the stomach (upper endoscopy). ?A test in which a tissue sample is removed to look at it under a microscope (biopsy). How is this treated? This condition may be treated with medicines. The medicines that are used vary depending on the cause of the gastritis. If the condition is caused by a bacterial infection, you may be given antibiotic medicines. If the condition is caused by too much acid in the stomach, you may be given medicines called H2 blockers, proton pump inhibitors, or antacids. Treatment may also involve stopping the use of certain medicines such as aspirin or ibuprofen and other NSAIDs. Follow these instructions at home: Medicines Take sjji-rie-bnjasza and prescription medicines only as told by your health care provider. If you were prescribed an antibiotic medicine, take it as told by your health care provider. Do notstop taking the antibiotic even if you start to feel better. Alcohol use Do not drink alcohol if: ?Your health care provider tells you not to drink. ?You are , may be , or are planning to become . If you drink alcohol: ?Limit your use to: ?0 1 drink a day for women. ?0 2 drinks a day for men. ?Know how much alcohol is in your drink. In the [place] one drink equals one 12 oz bottle of beer (355 mL), one 5 oz glass of wine (148 mL), or one 1 oz glass of hard liquor (44 mL). General instructions Eat small, frequent meals instead of large meals. Avoid foods and drinks that make your symptoms worse. Talk with your health care provider about ways to manage stress, such as getting regular exercise or practicing deep breathing, meditation, or yoga. Do not use any products that contain nicotine or tobacco. These products include cigarettes, chewing tobacco, and vaping devices, such as e-cigarettes. If you need help quitting, ask your health careprovider. Drink enough fluid to keep your urine pale yellow. Keep all follow-up visits. This is important. Contact a health care provider if: Your symptoms get worse. Your abdominal pain gets worse. Your symptoms return after treatment. You have a fever. Get help right away if: You vomit blood or a substance that looks like coffee grounds. You have black or dark red stools. You are unable to keep fluids down. These symptoms may represent a serious problem that is an emergency. Do not wait to see if the symptoms will go away. Get medical help right away. Call your local emergency services (911 in the [place] Do not drive yourself to the hospital. Summary Gastritis is inflammation of the lining of the stomach that can occur suddenly (acute) or develop slowly over time (chronic). This condition is diagnosed with a medical history, a physical exam, or tests. This condition may be treated with medicines to treat infection or medicines to reduce the amount of acid in your stomach. Follow your health care provider's instructions about taking medicines, making changes to your diet, and knowing when to call for help. This information is not intended to replace advice given to you by your health care provider. Make sure you discuss any questions you have with your health care provider. Document Revised: 12/29/2021 Document Reviewed: 12/29/2021 [employer] Patient Education 2022 [employer]. Follow Up Care 06/23/2023 09:20:57 With:Michael Patino Address: [address], [address] [phone] Business (1) When:06/26/2023 12:35:39 With:TEZ ANGEL Address: [address] [place] [address] Business (1) When:06/26/2023 12:35:32 [facility]10-16-2023 Evaluation + Plan noteExtracted from: Title:ED Note Author:Alban Givens PA-C te:06/23/23 Gastritis (K29.70: Gastritis , unspecified, without bleeding) Orders: Al hydroxide/Mg hydroxide/simethicone, 30 mL, Susp-Oral, Oral, Once, Stop date 06/23/23 9:40:00 EDT, STAT, Start date 06/23/23 9:40:00 EDT atropine/hyoscyamine/PB/scopolamine, 10 mL, Elixir, Oral, Once, Stop date 06/23/23 9:40:00 EDT, STAT, Start date 06/23/23 9:40:00 EDT famotidine, 20 mg = 2 mL, Soln-IV, IV Push, Once, Stop date 06/23/23 9:40:00 EDT, STAT, Start date 06/23/23 9:40:00 EDT, 06/23/23 9:40:00 EDT Sodium Chloride 0.9% intravenous solution, 1,000 mL, Soln-IV, IV, Once, Stop date 06/23/23 9:40:00 EDT, STAT, Start date 06/23/23 9:40:00 EDT, Infuse over 61, minute(s) sucralfate, 1 gram = 10 mL, Oral, QID, X 7 day(s), # 280 mL, Refills(s) 0 Automated Diff Basic Metabolic Panel Beta hCG Qual CBC w/ Auto Diff eGFR Extra Blue Tube Extra Green Li Tube Hepatic Function Panel Lipase Level UA With Cult Reflex XR Chest Single View [facility]04-02-2023 NotePROCEDURE: US PELVIS AND TRANSVAG, 12/06/2022 10:17 AM EDT CLINICAL INDICATIONS: Pelvic and perineal pain COMPARISON: Personal history of endometriosis 0 LMP 11/04/2022 TECHNIQUE: Transabdominal, transvaginal pelvic sonogram, grayscale color and spectral assessment. FINDINGS: Uterus: 5.1 x 3.5 x 3.0 cm. Endometrial echo complex 0.4 cm. Normal uterine sonographic morphology, no focal abnormality. Nonspecific echogenic focus measures up to 0.2 cm in the endocervical canal. Dystrophic non shadowing calcification is favored. Small endocervical cyst or polyp could present a similar pattern. Right ovary: 4.0 x 2.8 x 2.5 cm, volume 15 mL. Anechoic 2.1 x 2.1 x 2.3 cm right ovarian cyst is seen. Dominant follicle favored. Normal sonographic morphology. Left ovary: 2.0 x 1.9 x 1.3 cm, volume 3 mL. Subcentimeter follicle considered. Normal sonographic morphology. DUPLEX PELVIC VASCULATURE: There is intact flow within the ovarian tissue bilaterally by color-flow assessment. Arterial spectral tracing is identified from within. Right resistive index 0.45, left 0.58. No free fluid. IMPRESSION: 1. 0.2 cm echogenic focus in the endocervical canal, undetermined origin. Dystrophic not shadowing calcification, small endocervical cyst or polyp could all present this pattern. 2. Normal bilateral ovarian sonographic morphology with dominant 2.3 cm right ovarian follicle. Electronically authenticated by: MEGAN HINOJOSA Date: 2022-12-08 11:58[facility]02[facility]14-2023 NoteCONSULTATION CONSULTATION DATE: 10/22/2022 CHIEF COMPLAINT: Right foot and ankle pain. HISTORY OF PRESENT ILLNESS: This is a 32-year-old female, who is known to the Pain Clinic. The patient had undergone podiatric procedure, subsequent to which the patient had pain. 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 The patient reports the patient is an 8/10, a sharp pain. The patient has not been well since August of this last year. The patient has been chronically on various antibiotics and on steroids. Recently, she was started on 60 mg of steroid which she took this morning. The patient states sitting, elevating her foot helps with her foot. Standing, walking, squatting, activities aggravate her foot. The patient takes Imitrex, Topamax, Mobic, wellbutrin, tramadol 50 mg daily. The patient's PAST MEDICAL HISTORY / SURGICAL HISTORY / REVIEW OF SYSTEMS are noted on the chart, along with the MEDICATION LIST / ALLERGIES and RADIOLOGICAL IMAGES. PHYSICAL EXAMINATION: Upon physical examination, this is a pleasant, morbidly obese female, who appears tired. VITAL SIGNS: 141/83 with a heart rate of 66. At a height of 5'2 , the patient weighs 126 pounds. FOCUSED EVALUATION OF HER RIGHT FOOT: The scar tissue is noted along the surgical sites; however, there is improvement. Hypoesthesia is present along the lateral aspect of her foot. Tenderness is present along the plantar region. With regards to the extremities, the patient presents in a Cushingoid type manner and stats that her weight gains have been exacerbated since she has been chronically on steroids. IMPRESSION: Current working diagnosis is status post podiatric surgery, right foot pain. PLAN: Education was done with regards to the patient on performing extension exercises and doing deep breathing. The patient has a sedentary lifestyle and encouragement was given to increase her activity level. The patient does not have any temperature, does not look to be toxic at this time. We will not be doing any procedure today, given the fact that the patient is on steroids, 60 mg, and on an antibiotic course, under the care of Dr. Angel. The patient was educated. She will follow up with the office once her infection has cleared and the patient has stopped the steroids for approximately a month.[id number] Evaluation note* Encounter Date Diagnosis Assessment Notes Treatment Notes Treatment Clinical Notes Sep, Contact with and (suspected) exposure to other viral communicable diseases (ICD-10 - Z20.828) Sep, Acute sinusitis, recurrence not specified, unspecified location (ICD-10 - J01.90) Sinusitis home care material was printed Drink plenty fluids, get plenty of rest. Take the amoxicillin with clavulanate and prednisone as prescribed until gone. Use the Flonase inhaler as prescribed until your symptoms improve. Consider taking Mucinex and/or Sudafed for your nasal congestion. Take Tylenol or Motrin for aches pains or fevers. Follow-up with your family physician if no improvement in 2 to 3 days [facility] Other 11-15-2022 NoteCONSULTATION CONSULTATION DATE: 07/23/2022 CHIEF COMPLAINT: Right foot pain. HISTORY OF PRESENT ILLNESS: This is a 31-year-old female who is returning to the Pain Clinic after her first visit where we had performed myofascial release. The patient states her foot feels much better. It is much looser. The patient states still, at times, the pain gets to a 7/10. The patient, unfortunately, subsequent to feeling better rolled her ankle and subsequent to that had increasing pain. The patient states standing, walking aggravate her pain. Activities, ADLs, change in weather aggravate the pain. Sitting mitigates the pain as does elevation of her leg. The patient takes ibuprofen 400 mg a few times a week. The patient had some tramadol which she took on an intermittent basis to help her with her pain. The patient started a multivitamin regimen that we have suggested. The patient's PAST MEDICAL HISTORY / SURGICAL HISTORY / REVIEW OF SYSTEMS are noted on the chart, along with the MEDICATION LIST / ALLERGIES and RADIOLOGICAL IMAGES. PHYSICAL EXAM: Upon physical examination, this is a pleasant, cooperative female who does not appear to be in any acute distress. VITAL SIGNS: Stable at 135/85 with a heart rate of 59. At a height of 5'2 , the patient weighs 123 kg. FOCUSED EVALUATION OF THE RIGHT LEG: Decreased inflammation. Decreased vasomotor changes. Improved perfusion of the right lower extremity noted compared to the baseline. The range of motion is still limited. Extension aggravates the patient's pain as does flexion. Inversion, the patient states is difficult for her to do. Eversion is intact. Coloration and refill are intact. Scar tissue is noted along the tarsal tunnel on the right hand side, along the sural nerve distribution. The patient has plantar pain along the same pattern. DIAGNOSIS: Current working diagnosis is right foot pain, sural nerve entrapment, scar tissue. PLAN: Education was done with the patient. Questions/answers were done. Tramadol 50 mg will be prescribed, one per day. The patient had friend with her who was enabling and speaking up. She was informed as to our finding, not her opinion. The patient will receive a sural nerve injection along the scar tissue in office today. The patient understands and would like to proceed. 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 PROCEDURE: Scar tissue infiltration. Subsequent to obtaining informed consent, the patient was placed in the sitting position. Alcohol prep was used to sterilize the site. A 25 gauge needle was advanced from distal to proximal along the scar tissue. Negative aspiration. Marcaine 0.125% along with Kenalog are placed along three separate sites of the scar tissue in volumetric expansion for a total of 3 cc. Negative heme. The patient tolerates the procedure well without any overt complication. Post procedurally reports having increased fluidity in her ankle and also mitigation of her pain. The patient will be followed up in the office.[facility] 06-27-2022 History general Narrative - Reported* Type Description Date Medical History ANXIETY AND DEPRESSION Medical History GERD Medical History RIGHT FOOT PAIN Surgical History LEP PROCEDURE 2018 Surgical History LAPROSCOPY PROCEDURE 2018 Surgical History MULTIPLE SURGERIES 06/2019 [facility] Other 09-27-2022 NoteCONSULTATION CONSULTATION DATE: 06/04/2022 CHIEF COMPLAINT: Right leg pain. HISTORY OF PRESENT ILLNESS: This is a 31-year-old female, who was referred to us by Dr. Angel's office. The patient describes constant pain, stabbing sensation in her right lower extremity at 5/10. The patient had undergone a decompressive surgery by Dr. Stack dated 06/10/2019, along with release of a plantar fascia. 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 The patient is not working currently due to this pain. The patient currently states any activity such as sitting straight, standing, walking, doing dishes, housework, activities aggravate the patient's pain. The patient current takes ibuprofen 400 mg daily, wellbutrin 150 mg and 300 mg on a 24 hour schedule. The patient is also on D3, Mobic 15 mg, tramadol 50 mg on a p.r.n. basis, Flexeril 10 mg on a p.r.n. basis. The patient states she has cramping sensations in her right leg and twitching sensations. She, at times, feels like things are crawling on her leg when not. The patient's PAST MEDICAL HISTORY / SURGICAL HISTORY / REVIEW OF SYSTEMS are noted on the chart, along with the MEDICATION LIST / ALLERGIES and an X-RAY of her foot and leg. PHYSICAL EXAM: Upon physical examination, this is a pleasant, cooperative, morbidly obese female, who does not appear to be in any acute distress. VITAL SIGNS: Her blood pressure is elevated at 166/100 with a heart rate of 94. At a height of 5'2 , the patient weighs 119 kg. FOCUSED EVALUATION OF THE RIGHT LOWER EXTREMITY - A well healed surgical scar is noted along the medial tarsal tunnel. There is asymmetry and tendon point along the saphenous nerve noted along the surgical scar. The patient has multiple trigger points throughout her right lower extremity with significant jump response. The remainder of the examination is noncontributory. The patient also has lymphedema of her lower extremities. 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 PLAN: Myofascial release was performed on her right lower extremity, subsequent to which the patient reported having improvement in the sensations in the plantar aspect, along with the overall discomfort. The pain was then focused along the saphenous nerve in the right lower extremity. We shall look to get authorization for a tenolysis of the saphenous nerve along with trigger point injections along the right lower extremity. In the interim, the patient is to take Epsom salt soaks, apply heat rub to her leg bilaterally, add magnesium glycinate and chromium picolinate to her diet. The patient understands and will be followed up in the office subsequent to authorization. [facility] [id number] Evaluation note* Encounter Date Diagnosis Assessment Notes Treatment Notes Treatment Clinical Notes May, Acute effusion of both middle ears (ICD-10 - H65.193) Advised patient that rapid COVID antigen test was negative today in office. Discussed diagnosis with patient, explained to patient that there is middle ear fluid without signs of bacterial infection, antibiotics are not indicated at this time. This is commonly due to ET dysfunction, viral illness, allergies, barotrauma, or recent AOM. Advised patient that fluid in middle ear may take several weeks to resolve. Take rx medications as directed. Supportive treatment as directed, push fluids/test, Tylenol/Motrin for discomfort. Follow up with PCP in 2 weeks or sooner for new or worsening symptoms. Patient verbalizes understanding and is agreeable to treatment plan [facility] Other Evaluation + Plan note Future Appointments Appointment Date:07/08/2023 02:00:00 PM Scheduled Provider:Melissa Nunez CNP Location:[facility] [place] [facility] Appointment Type:[facility] Follow Up [facility] General Surgery [place] Evaluation + Plan note Future Appointments Appointment Date:07/21/2023 02:40:00 PM Scheduled Provider:Alexx Gupta MD Location:[facility] Appointment Type:[place] [id number] Future Scheduled Tests Laboratory* Fecal WBC Lactoferrin 07/08/23 * Giardia lamblia, Direct Detection EIA 07/08/23 * O & P Exam, Routine 07/08/23 * Clostridium Difficile PCR 07/08/23 * Enteric Panel by [facility] Future App[facility]ments Appointment Date:2023 07:00:00 AM Scheduled Provider: [facility] Type:CT Sinus/Orbits/Maxillofacial (FT) Appointment Date:07/25/2023 09:30:00 AM Scheduled Provider: Location:[facility] Surgical Services Appointment Type:Surgical PAT FT Appointment Date:08/06/2023 01:00:00 PM Scheduled Provider: Location:[facility] Appointment Type:Surgery FT Appointment Date:08/11/2023 01:30:00 PM Scheduled Provider:Glenn Gupta MD [facility] Type:Cardiology New Patient (FT) Appointment Date:08/15/2023 09:20:00 AM Scheduled Provider:Alexx Gupta MD Location:[facility] Appointment Type: Post Op 15 Future Scheduled Tests Laboratory* Fecal WBC Lactoferrin 07/08/23 * Giardia lamblia, Direct Detection EIA 07/08/23 * O & P Exam, Routine 07/08/23 * Clostridium Difficile PCR 07/08/23 * Enteric Panel by PCR 07/08/23 Radiology* CT Maxillofacial w/o Contrast 07/24/23 [facility] General Surgery [place] Evaluation + Plan note Future Appointments Appointment Date:07/25/2023 09:30:00 AM Scheduled Provider: Location:[facility] Surgical Services Appointment Type:Surgical PAT FT Appointment Date:08/06/2023 01:00:00 PM Scheduled Provider: Location:[facility] Services Appointment Type:Surgery FT Appointment Date:08/11/2023 01:30:00 PM Scheduled Provider:Glenn Gupta MD Location[facility] Appointment Type:Cardiology New Patient (FT) Appointment Date:08/15/2023 09:20:00 AM Scheduled Provider:Alexx Gupta MD Location:[facility] Appointment Type: Post Op 15 Future Scheduled Tests Laboratory* Fecal WBC Lactoferrin 07/08/23 * Giardia lamblia, Direct Detection EIA 07/08/23 * O & P Exam, Routine 07/08/23 * Clostridium Difficile PCR 07/08/23 * Enteric Panel by PCR 07/08/23 [facility] Future Appointments Appointment Date:08/06/2023 01:00:00 PM Scheduled Provider: Location:[facility] Surgical Services Appointment Type:Surgery FT Appointment Date:08/11/2023 01:30:00 PM Scheduled Provider:Glenn Gupta MD Location[facility] Appointment Type:Cardiology New Patient (FT) Appointment Date:08/15/2023 09:20:00 AM Scheduled Provider:Alexx Gupta MD Location:[facility] Appointment Type: Post Op 15 Future Scheduled Tests Laboratory* Fecal WBC Lactoferrin 07/08/23 * Giardia lamblia, Direct Detection EIA 07/08/23 * O & P Exam, Routine 07/08/23 * Clostridium Difficile PCR 07/08/23 * Enteric Panel by PCR 07/08/23 [facility] Future Appointments Appointment Date:08/15/2023 09:20:00 AM Scheduled Provider:Alexx Gupta MD Location:[facility] Appointment Type: Post Op 15 Appointment Date:10/20/2023 03:45:00 PM Scheduled Provider:Glenn Gupta MD [facility] Type:Cardiology Follow Up (FT) Future Scheduled Tests Laboratory* Fecal WBC Lactoferrin 07/08/23 * Giardia lamblia, Direct Detection EIA 07/08/23 * O & P Exam, Routine 07/08/23 * Clostridium Difficile PCR 07/08/23 * Enteric Panel by PCR 07/08/23 Radiology* EC Stress Echo Complete w/ Contrast 08[facility]11/23 [facility] Future Appointments Appointment Date:08/15/2023 09:20:00 AM Scheduled Provider:Alexx Gupta MD Location:[facility] Appointment Type: Established 15 Appointment Date:10/20/2023 03:45:00 PM Scheduled Provider:Glenn Gupta MD [facility] Type:Cardiology Follow Up (FT) Future Scheduled Tests Laboratory* Fecal WBC Lactoferrin 07/08/23 * Giardia lamblia, Direct Detection EIA 07/08/23 * O & P Exam, Routine 07/08/23 * Clostridium Difficile PCR 07/08/23 * Enteric Panel by PCR 07/08/23 Radiology* EC Stress Echo Complete w/ Contrast 08/11/23 [facility] Evaluation + Plan note Future Appointments Appointment Date:10/20/2023 03:45:00 PM Scheduled Provider:Glenn Gupta MD [facility] Type:Cardiology Follow Up (FT) Future Scheduled Tests Laboratory* Fecal WBC Lactoferrin 07/08/23 * Giardia lamblia, Direct Detection EIA 07/08/23 * O & P Exam, Routine 07/08/23 * Clostridium Difficile PCR 07/08/23 * Enteric Panel by PCR 07/08/23 Radiology* EC Stress Echo Complete w/ Contrast 08/11/23 [facility] Evaluation + Plan note Future Appointments Appointment Date:10/20/2023 03:45:00 PM Scheduled Provider:Candy SOTELO, Glenn Holbrook Location:.[facility] Appointment Type:Cardiology Follow Up (FT) Future Scheduled Tests Laboratory* Fecal WBC Lactoferrin 07/08/23 * Giardia lamblia, Direct Detection EIA 07/08/23 * O & P Exam, Routine 07/08/23 * Clostridium Difficile PCR 07/08/23 * Enteric Panel by PCR 07/08/23 [facility] - Reported* Type Description Date Medical History ANXIETY AND DEPRESSION Medical History GERD Medical History RIGHT FOOT PAIN Surgical History LEP PROCEDURE 2018 Surgical History LAPROSCOPY PROCEDURE 2018 Surgical History MULTIPLE SURGERIES 06/2019 [facility] Other Hospital course Narrative No data available for this section [facility] No data available for this section [facility] General Surgery [place] Progress note No data available for this section [facility] Summary Purpose Family History No Family History Records FoundNo Family History Records Found No data available for this section No data available for this section No data available for this section No data available for this section No data available for this section No data available for this section No data available for this section No data available for this section No data available for this section No data available for this section No data available for this section No Family History Records FoundNo Family History Records Found No data available for this section Advance Directives No Advanced Directives Records FoundNo Advanced Directives Records FoundNo Advanced Directives Records FoundNo Advanced Directives Records Found Additional Source Comments INFORMATION SOURCE (unrecogn ized section and content) DATE CREATED AUTHOR 08/17/2018 [facility] DATE CREATED AUTHOR AUTHOR'S ORGANIZ ATION 01/16/2023 [facility] DATE CREATED AUTHOR AUTHOR'S ORGANIZ ATION 08/22/2023 [facility] DATE CREATED AUTHOR AUTHOR'S ORGANIZ ATION 09/15/2023 [facility] EPIC REASON FOR VISIT (unrecogniz ed section and content) SILVER EDGE CONGESTION SORE THROAT H/ACOUGH, CONGESTION Patient Care team informatio n (unrecognized section and content) Personnel Name: TEZ ANGEL MD Address: Address: [address] [place] [address] Personnel Name: TEZ ANGEL MD Address: Address: [address] [place], [place] [address] [address] Personnel Name: TEZ ANGEL MD Address: Address: [address] [place] [address] Personnel Name: TEZ ANGEL MD Address: Address: [address] [place] [address] Personnel Name: TEZ ANGEL MD Address: Address: [address] [place] [address] Personnel Name: TEZ ANGEL MD Address: Address: [address] [place] [address] Personnel Name: TEZ ANGEL MD Address: Address: [address] [place] [address] Personnel Name: TEZ ANGEL MD Address: Address: [address] [place], [place] [address] [address] Personnel Name: TEZ ANGEL MD Address: Address: [address] [place], [place] [address] [address] Personnel Name: TEZ ANGEL MD Address: Address: [address] [place] [address] Personnel Name: TEZ ANGEL MD Address: Address: [address] [place] [address] Personnel Name: TEZ ANGEL MD Address: Address: [address] [place] [address] FOR RECORDS PERTAINING TO PATIENTS WHO ARE OR HAVE BEEN ENROLLED IN A CHEMICAL DEPENDENCY/SUBSTANCEABUSE PROGRAM, SOME INFORMATION MAY BE OMITTED. This clinical summary was aggregated from multiple sources. Caution should be exercised in using it in the provision of clinical care. This summary normalizes information from multiple sources, and as a consequence, information in this document may materially change the coding, format and clinical context of patient data. In addition, data may be omitted in some cases. CLINICAL DECISIONS SHOULD BE BASED ON THE PRIMARY CLINICAL RECORDS. [facility] [employer] [facility]. provides no warranty or guarantee of the accuracy or completeness of information in this document.
[2023-09-19 11:06] LABS: Basophils Percent Auto 0.4 % (0.2-2.0); Eosinophils Absolute Auto 0.1 10^3/uL (0.0-0.7); Eosinophils Percent Auto 1.3 % (0.9-7.0); Hematocrit 35.4 % (36.0-48.0); Hemoglobin 11.1 g/dL (12.0-16.0); Immature Granulocytes Abs Auto 0.01 10^3/uL (0.00-0.03); Immature Granulocytes Pct Auto 0.2 % (0.0-0.5); Lymphocytes Absolute Auto 1.6 10^3/uL (1.2-3.8); Mean Corpuscular HGB Conc 31.4 g/dL (29.9-35.2); Mean Corpuscular Hemoglobin 30.7 pg (26.7-34.0); Mean Corpuscular Volume 98.1 fL (81.0-99.0); Mean Platelet Volume 10.2 fL (9.5-13.5); Monocytes Absolute Auto 0.5 10^3/uL (0.3-0.8); Monocytes Percent Auto 10.1 % (1.7-12.0); Neutrophils Absolute Auto 2.5 10^3/uL (1.4-6.5); Platelet Count 210 10^3/uL (150-450); Red Blood Count 3.61 10^6/uL (4.20-5.40); Red Cell Distribution Width 12.3 % (11.0-15.0); White Blood Count 4.7 10^3/uL (4.0-11.0)
[2023-09-19 11:35] LABS: Alanine Aminotransferase 45 U/L (14-59); Albumin Globulin Ratio 0.8; Alkaline Phosphatase 101 U/L (46-116); Anion Gap 14.1; Aspartate Amino Transferase 30 U/L (15-37); BUN Creatinine Ratio 11.3; Bilirubin Direct 0.1 mg/dL (0.0-0.2); Bilirubin Total 0.2 mg/dL (0.2-1.0); Calcium 8.7 mg/dL (8.5-10.1); Carbon Dioxide 22.4 mmol/L (21.0-32.0); Chloride 107 mmol/L (98-107); Estimated GFR (African America >60 (>=60); Estimated GFR (Non-African Ame >60 (>=60); Globulin 3.8 g/dL; Glucose 106 mg/dL (74-106); Potassium 3.5 mmol/L (3.5-5.1); Sodium 140 mmol/L (136-145); Total Protein 6.8 g/dL (6.4-8.2)
[2023-09-19 11:49] LABS: INR 0.96; Partial Thromboplastin Time 27.9 sec (22.3-36.2); Prothrombin Time 10.2 sec (9.0-11.6)
== END 2023-09-19 10:03 | disposition home or self-care (01) ==
LOC: PST 10:02
PROVIDERS: PCP Family Medicine; Visit Provider Obstetrics & Gynecology
DX: Z01.812 Encounter for preprocedural laboratory examination (principal); N94.10 Unspecified dyspareunia; N92.0 Excessive and frequent menstruation with regular cycle; R10.2 Pelvic and perineal pain; N94.6 Dysmenorrhea, unspecified
CPT/HCPCS: 80048; 80076; 85025; 85610; 85730; 86850; 86900; 86901

== ENCOUNTER 2023-10-01 11:16 | Day surgery (SDC) | payer MEDICAID, SELFPAY ==
[2023-09-19 10:50] VITALS: BP 111/73; PULSE 74; RESP 20; TEMP 36.3; O2SAT 100; BMI 51.9
[2023-10-01] VITALS (12 sets, daily range): BP systolic 122–151; BP diastolic 78–99; PULSE 83–105; RESP 13–20; TEMP 36.4–36.7; O2SAT 92–100; BMI 51.9
--- OUTSIDE RECORDS SUMMARY | 2023-10-01 11:27 | XMS_ITS | CCD ---
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 Name Role Phone ADAMOWICZ, LATASHA J Unavailable Unavailable SATNAMCHAY Unavailable Unavailable ADAMOWICZ, LATASHA J Unavailable Unavailable ADAMOWICZ, LATASHA J Unavailable Unavailable ADAMOWICZ, LATASHA J Unavailable Unavailable MINDY GARICA Unavailable Unavailable FANNING, SHANT E Unavailable Unavailable [...] Primary Care Unavailable NADERER, DR TEZ Whaley Primary Care Unavailable NADERER, DR TEZ Whaley Consulting Unavailable NADEREJurgen, DR TEZ Whaley Attending Unavailable NADERER, DR TEZ Whaley Admitting Unavailable SATNAM ., DR HAYS Attending Unavailable SATNAM ., DR HAYS Admitting Unavailable SATNAM ., DR HAYS Consulting Unavailable NADEREJurgen, DR TEZ Whaley Primary Care Unavailable SATNAM [...] DR HAYS Admitting Unavailable NADERER, DR TEZ hWaley Primary Care Unavailable ATNON ., DR YONAS Tucker Admitting Unavailable ANTON ., DR YOANS Tucker Consulting Unavailable ANTON ., DR YONAS Tucker Attending Unavailable NADERER, DR TEZ hWaley Primary Care Unavailable ANTON ., DR YONAS [...] Tucker Attending Unavailable NEIL LOPEZ Consulting Unavailable CRR, TEZ Primary Care Physician [phone] Alexx Gupta Attending Unavailable Alexx Gupta Referring Unavailable MoAlexx vasquez Admitting Unavailable Glenn Gupta Attending Unavaila ble Mayra, Melissa A Referring Unavailable Glenn Gupta Admitting Unavaila ble Mayra, Melissa A Attending Unavailable TEZ ANGEL Referring Unavailable MouranyAlexx Attending Unavailable MouranyAlexx Attending Unavailable MouranyAlexx Attending Unavailable MouranyAlexx Attending Unavailable MouranyAlexx Attending Unavailable MouranyAlexx Attending Unavailable MoAlexx vasquez Referring Unavailable Mourandeuce, Alexx Dowling Admitting Unavailable Mayra, Melissa A Referring Unavailable Mayra, Melissa A Admitting Unavailable Mayra, Melissa A Attending Unavailable TEZ ANGEL Admitting Unavailable STANLEY, TEZ Attending Unavailable TEZ ANGEL Referring Unavailable Alexx Pena Attending Unavailable SATNAMCHAY Attending Unavailable NADERER, TEZ Attending Unavailable Allergies Allergy Classification Reported Allergen(s) Allergy Type Date of Onset Reaction(s) Facility (8 sources) Iodine; Translations: [IODINE] Drug Allergy 8 AOF, Hives [facility] Repository (16 sources) Acetaminophen / HYDROcodone; Translations: [Vicodin] Drug Allergy Unknown (qualifier value), Vomiting (disorder) [facility] Repository (8 sources) iodinated radiocontrast dyes; Translations: [iodinated radiocontrast agents] Drug allergy Unknown (qualifier value) [facility] [place] (7 sources) steri strips; Translations: [steri strips] Allergy to substance Itching (finding), Eruption of skin (disorder) [facility] Medications Current Medications Medication Drug Class(es) Dates Sig (Normalized) Sig (Original) acetaminophen 325 mg / oxyCODONE hydrochloride 5 mg oral tablet (4 sources) Opioid Agonist Start: 08-12-2023 Percocet 5 mg-325 mg oral tablet 1 tab(s), Oral, q6hr, 12 tab(s), Refill(s) 0, [facility], 157, cm, 08/11/23 13:28:00 EST, Height/Length Dosing, 132.9, kg, 08/11/23 13:28:00 EST, Weight Dosing Start Date: 08/12/23 Status: Ordered Start: 08-06-2023 End: 08-08-2023 Percocet 5 mg-325 mg oral ta blet 1 tab(s), Oral, q6hr as needed for pain, 10 tab(s), Refill(s) 0, [facility], 157.8, cm, 07/26/23 10:03:00 EST, Height/Length [...] Ordered docusate sodium 50 mg / sennosides, half-way 8.6 mg oral tablet (2 sources) take [...] Daily, # 90 tab(s), Refills(s) 1, Pharmacy: [facility]72, 152.4, cm, 08/10/21 14:17:00 EST, Height/Length [...] Once a day Active polyethylene glycol 3350 097251 mg / potassium chloride 1480 mg / sodium bicarbonate 5720 mg / sodium chloride 29625 mg powder for oral solution (10 sources) Osmotic Laxative Start: 07-08-2023 NuLYTELY Quach oral powder for reconstitution See Instructions, 1 EA, Refill(s) 0, Prior to colonoscopy., [facility], 157.5, cm, 07/08/23 14:03:00 EDT, [...] Facility Insurance Correspondenceon 1 10-23-2022 Insurance Correspondence [id number]#1.00TIFF [facility] Auth for Release of Medical Recordson 08-20-2023 Auth for Release of Medical Records [id number]#1.00TIFF Eli Paul [facility] Ambulatory Visit Summaryon 1 10-16-2022 Ambulatory Visit [...] choosing us for your care. Eli Paul [facility] General Surgery Office/Clini c Noteon 08-15-2023 General [...] with voice recognition artificial intelligence software, specifically Bidgely, Panjo and or Blueknow. Substitutions may have occurred voice recognition and artificial intelligence software. Documentation services were performed after patient or guardian consented to allow [employer] to record this visit. JOANN patent law specialist and provider reviewed before signing. JOANN: Rosalva [...] Brother. Hypertensio (more content not included)... Normal [facility] Comment on above: Result Comment: Elec tronically [...] 3 days after surgery She finished the [place] yesterday and states the pain is unbearable She states she's added Motrin 800 mg every 12 hours and Tylenol 400 mg every 6 hours History of Present Illness Azul Llanos Rosydeja is a 33-year-old female status post robotic [...] with voice recognition artificial intelligence software, specifically Bidgely, Panjo and or Blueknow. Substitutions may have occurred voice recognition and artificial intelligence software. Documentation services were performed after patient or guardian consented to allow [facility] to record this visit. JOANN patent law specialist and provider reviewed before signing. JOANN: Rosalva [...] Instructions Percoce (more content not included)... Normal [facility] Comment on above: Result Comment: Elec tronically [...] partial hysterectomy in 09/2023 as recommended by [facility]. The decision to assess her cardiac status [...] abnormal for sinus rhythm and possible anterior [place], although I think it is probably not more likely as a lead issue. However, we will get her a stress echo to evaluate the shortness of breath and abnormal EKG. See her back for follow-up. Chest pain (R07.9: Chest pain, unspecified) Stress echo to evaluate Portions of this record may have been created with voice recognition artificial intelligence software, specifically Bidgely, Panjo and or Blueknow. Substitutions may have occurred due to the inherent limitations of voice recognition and artificial intelligence software. Documentation services were performed after patient or guardian consented to allow [facility] to record this visit. JOANN patent law specialist and provider reviewed before signing. JOANN: Scott [...] tab(s), Oral, Da (more content not included)... [facility] Comment on above: Result Comment: Elec tronically Signed By: Candy SOTELO, Glenn Holbrook\.br\Date and Time Signed: 08/12/23 13:43 EST\.br\Electronically Co-Signed By: Scott Frederick\.br\Date and Time Co-Signed: 08/11/23 17:25 EST Consent for Treatmenton Consent for Treatment [id number]#1.00TIFF [facility] IntraOperative Documentson 1 10-12-2022 IntraOperative Documents [id number]#1.00TIFF [facility] Physician Orderon 08-11-2023 Physician Order [id number]#1.00TIFF [facility] Consent for Anesthesiaon Consent for Anesthesia [id number]#1.00TIFF [facility] Discharge Instructionson Discharge Instructions [id number]#1.00TIFF [facility] IntraOperative Documentson 1 10-07-2022 IntraOperative Documents [id number]#1.00TIFF [facility] Main OR Intraoperative Recor don 08-07-2023 Main OR Intraoperative Record IntraOp Document Type FT Summary Primary Physician: Alexx Gupta MD Finalized Date/Time: 08/07/23 13:39:28 Pt. Name: AZUL ONTIVEROS D.O.B./Sex: 1990 Female Med Rec #: [id number] Physician: Alexx Gupta MD Financial #: [id number] Pt. Type: A Room/Bed: [place] [address] Admit/Disch: 08/06/23 05:51:08 - 08/06/23 11:20:00 Institution: [...] Case Attendee Kin ANDRADE, Felicitas Gupta MD, Natanael Sandoval RN Role Performed BELL CLEANER Surgeon - Primary Jump Roll Operator - Primary Time In 08/06/23 07:37:00 08/06/23 07:37:00 08/06/23 07:37:00 Time Out 08/06/23 09:24:00 08/06/23 09:04:00 08/06/23 09:24:00 Procedure CHOLECYSTECOMY ROBOT CHOLECYSTECOMY ROBOT CHOLECYSTECOMY ROBOT ASSISTED(.) ASSISTED(.) ASSISTED(.) Comments , anesthesia space control supervisor Last Modified By: Julianne Clark CST, RN, Natanael Falk RN 08/07/23 13:36:33 08/06/23 09:24:08 08/06/23 09:24:08 Entry 4 Entry 5 Case Attendee Emmanuelle Wilks James W Role Performed Scrub - Primary PACKING INSPECTOR/SA Time In 08/06/23 07:37:00 08/06/23 07:37:00 Time [...] and tissue Entry 1 Skin Integrity Intact, Auberry, Warm, and Skin Abnormality No Dry Outcomes Met? Yes Last Modified By: Santos SETHI, Natanael Bhavana 08/06/23 08:04:25 Post-Care Text: The patient is [...] Position Supine (more content not included)... Normal [facility] Pre-Op Checkliston 3 Pre-Op Checklist [id number]#1.00TIFF [facility] CHEMISTRYOrdered By: Lab ROP User on 08-06-2023 Glucose [Mass/Vol] 92 mg/dL Normal 55 - 99 mg/dL [facility] POC Subsection Comment on above: Result Comment: Lisa [place] Meter POC Username COURTNEY DONOVAN Invalid Interpretation Code [facility] POC Subsection Sodium [Moles/Vol] 597597526029 mmol/L Invalid Interpretation Code [facility] POC Subsection Sodium [Moles/Vol] 560002989 mmol/L Invalid Interpretation Code [facility] POC Subsection Capillary Glucose POCon 07-10 Glucose [Mass/Vol] 92 mg/dL Normal 55-99 [facility] Comment on above: Result Comment: Lisa [place] Meter Performed By: #### 2 [id number] ####[facility] [id number] [place] [address] Consent for Treatmenton 07-10 Consent for Treatment [id number]#1.00TIFF [facility] Discharge Instructionson Discharge Instructions AZUL ONTIVEROS [...] AM EST With: Alexx Gupta MD Where: [facility] General Surgery [facility] Comment on above: Result Comment: Elec tronically [...] AM EST With: Alexx Gupta MD Where: [facility] General [facility] Comment on above: Result Comment: Elec tronically Signed By: Thelma SETHI, Courtney Rodriguez\.br\Date and Time Signed: 08/15/23 06:03 EST Discharge Instructions AZUL ONTIVEROS Jnenifer :1990 Visit Date:08/06/2023 Inpatient Discharge Instructions Your [...] EST With: Alonso SOTELO, Alexx Dowling Where: [facility] General [facility] Comment on above: Result Comment: Elec tronically Signed By: Thelma SETHI, Courtney Rodriguez\.br\Date and Time Signed: 08/15/23 06:03 EST Inpatient Patient Summaryon 08-06-2023 Inpatient Patient Summary [address] [address] [facility] Clinical Discharge Instructions PERSON INFORMATION Name: AZUL ONTIVEROS PHYSICIANS Admitting Physician: Alexx Gupta MD Attending Physician: Alexx Gupta MD PCP: TEZ ANGEL MD Discharge Diagnosis: Comment: PATIENT EDUCATION INFORMATION Instructions: Minimally Invasive Cholecystectomy, Care After Medication Leaflets: Follow up: With: Address: When: Alexx [address], [address], [facility] [address] [place] [address] [phone] Business (1) Comments: Appointment has already been scheduled Type Location Start [facility] Cardiology New Patient (FT) FT.Cardiology Clinic 08/11/2023 1:30 PM 08/11/2023 1:45 PM Confirmed GS Post Op 15 [facility] GS Randall 08/15/2023 9:20 AM 08/15/2023 9:40 AM Confirmed MEDICATION LIST New Medications [facility], [address] [place], [place] [id number], [phone] acetaminophen-oxycodone (Percocet 5 mg-325 mg oral tablet) [...] DAILY., Responsible Provider: Tez Angel Comment: Normal [facility] Main OR PACU I Recordon 11- Main OR PACU I Record PACU Phase I Document Type FT Summary Primary Physician: Alexx Gupta MD Finalized Date/Time: 08/06/23 10:10:38 Pt. Name: AZUL ONTIVEROS/Sex: 1990 Female Med Rec #: [id number] Physician: Alexx Gupta MD Financial #: [id number] Pt. Type: A Room/Bed: [facility]/ Admit/Disch: 08/06/23 05:51:08 - Institution: Case Times [...] By: Bia Perry RN 08/06/23 10:10 Normal [facility] Main OR PACU II Recordon Main OR PACU II Record PACU Phase II Document Type FT Summary Primary Physician: Alexx Gupta MD Finalized Date/Time: 08/06/23 11:21:37 Pt. Name: PRINCE AZUL ALLEN D.O.B./Sex: 1990 Female Med Rec #: [id number] Physician: Alexx Gupta MD Financial #: [id number] Pt. Type: Room/Bed: [place] [address] Admit/Disch: 08/06/23 05:51:08 - Institution: Case Times [...] By: Adeline Elizabeth RN 08/06/23 11:21 Normal [facility] Main OR Preoperative Recordo n 08-06-2023 Main OR Preoperative Record PreOp Document Type FT Summary Primary Physician: Alexx Gupta MD Finalized Date/Time: 08/06/23 08:10:54 Pt. Name: PRINCE ALLEN AZULJudd Pratt/Sex: 1990 Female Med Rec #: [id number] Physician: Alexx Gupta MD Financial #: [id number] Pt. Type: A Room/Bed: [place] [address] Admit/Disch: 08/06/23 05:51:08 - Institution: Case Times [...] By: Natanael Graham RN 08/06/23 08:10 Normal [facility] Monitor Recordon 08-06-2023 Monitor Record [id number]#1.00TIFF Normal [facility] Operative Reporton 3 Operative Report Indication for Surge ry 33-year-old female with symptomatic cholelithiasis here for robotic cholecystectomy Preoperative Diagnosis CHOLELITHIASIS Postoperative Diagnosis CHOLELITHIASIS Operation CHOLECYSTECOMY ROBOT ASSISTED, ROBOT ASSISTED LAPAROSCOPIC CHOLECYSTECOMY, . Surgeon(s) Alexx Gupta MD (Surgeon - Primary) Assistant Construction Superintendent Michael Anesthesia General Mauricio Chang Jr., DO (Plasterer Foreman) Felicitas Sanderson CRNA (Other) Estimated Blood Loss [...] x2 Patient tolerated the procedure: yes Normal [facility] Comment on above: Result Comment: Elec tronically Signed By: Alonso SOTELO, Alexx Dowling\.br\Date and Time Signed: 08/06/23 09:40 EST Outpatient Surgery Discharge Instructionon 08-06-2023 Outpatient Surgery Discharge Instruction [place] [id number] Patient Discharge Instructions PERSON INFORMATION Name: AZUL [...] Follow up: With: Address: When: Alexx Gupta [address] [place] [address], [place] [address], [address] [address] [phone] Business (1) Comments: Appointment has already been scheduled Type Location Start [facility] Cardiology New Patient (FT) FT.Cardiology Clinic 08/11/2023 1:30 PM 08/11/2023 1:45 PM Confirmed GS Post Op 15 [facility] 08/15/2023 9:20 AM 08/15/2023 9:40 AM Confirmed [...] to serve you. Thank you for choosing [facility] HERE ARE THE MEDICATION CHANGES THAT OCCURRED DURING YOUR HOSPITAL STAY New Medications [facility], [address] [place] [id number], [phone] acetaminophen-oxycodone (Percocet 5 mg-325 mg oral tablet) [...] how to care (more content not included)... [facility] Patient Education - Texton 1 10-06-2022 [...] these instructions at home: Medicines ? Take dovr-dwv-rnwaaoy and prescription medicines only as told by [...] keep your urine pale yellow. ? Take zdke-abs-yhyvgdw or prescription medicines. ? Eat foods that [...] and water are not available, use hand backrest assembler. ? Change your dressing as told by [...] if yo (more content not included)... Normal [facility] Progress Note-Physicianon Progress Note-Physician Patient: AZUL ONTIVEROS Age: 33 years Sex: Female : 1990 Associated Diagnoses: None Author: Mauricio Chang Jr., DO Postoperative Information Postoperative disposition: Postoperative disposition: Home. Optimetrix number: Optimetrix number [id number]. Anesthetic utilized: General. Physical Examination Vital Signs [...] Surgery Unit, and To home ). Normal [facility] Comment on above: Result Comment: Elec tronically [...] 1 EA, Refill(s) 0, Prior to colonoscopy., [facility], 157.5, cm, 07/08/23 14:03:00 EDT, Height/Length Dosing, 129.5, kg, 07/08/23 14:03:00 EDT, Weight Dosing Protonix 40 mg Tab-DR: 40 mg = 1 tab(s), Oral, Daily, # 90 tab(s), Refills(s) 1, Pharmacy: [facility], 152.4, cm, 08/10/21 14:17:00 EST, Height/Length [...] list: All Problems Anemia / SNOMED CT 812538948 / Confirmed Anxiety / SNOMED CT 02532434 / Confirme (more content not included)... Normal [facility] Comment on above: Result Comment: Elec tronically Signed By: Mauricio Chang Jr., DO\.min\Date and Time Signed: 08/06/23 07:29 EST Consent for Procedure/Surger yon 07-28-2023 Consent for Procedure/Surgery [id number]#1.00TIFF Normal [facility] Auto Diffon 07-25-2023 Basophils/100 WBC (Bld) 0.4 % Normal 0.0-2.0 [facility] Comment on above: Order Comment: Order Added by Discern Expert. Performed By: #### 2 [id number], [id number] #### [facility] [address] [place] [address] Basophils/Leukocyte s Auto (Bld) [Pure # fraction] 0.0 E9/L Normal 0.0-0.2 [facility] Comment on above: Order Comment: Order Added by Discern Expert. Performed By: #### 2 408711, [id number] #### [facility] [address] [place] [address] Eosinophils/100 WBC (Bld) 0.9 % Normal 0.0-8.0 [facility] Comment on above: Order Comment: Order Added by Discern Expert. Performed By: #### 2 606719, [id number] #### [facility] [address] [place] [address] Eosinophils/Leukocy dmitry Auto (Bld) [Pure # fraction] 0.0 E9/L Normal 0.0-0.5 [facility] Comment on above: Order Comment: Order Added by Discern Expert. Performed By: #### 2 873405, [id number] #### [facility] [address] [place] [address] Lymphocytes/100 WBC (Bld) 29.0 % Normal 14.0-50.0 [facility] Comment on above: Order Comment: Order Added by Discern Expert. Performed By: #### 2 082293, [id number] #### [facility] [address] [place] [address] Lymphocytes/Leukocy dmitry Auto (Bld) [Pure # fraction] 1.5 E9/L Normal 1.0-4.0 [facility] Comment on above: Order Comment: Order Added by Discern Expert. Performed By: #### 2 670714, [id number] #### [facility] [address] [place] [address] Monocytes/100 WBC (Bld) 8.4 % Normal 4.0-14.0 [facility] Comment on above: Order Comment: Order Added by Discern Expert. Performed By: #### 2 573923, [id number] #### [facility] [address] [place] [address] Monocytes/Leukocyte s Auto (Bld) [Pure # fraction] 0.4 E9/L Normal 0.2-1.0 [facility] Comment on above: Order Comment: Order Added by Discern Expert. Performed By: #### 2 041640, [id number] #### [facility] [address] [place] [address] Neutrophils/100 WBC (Bld) 61.3 % Normal 36.0-75.0 [facility] Comment on above: Order Comment: Order Added by Discern Expert. Performed By: #### 2 444406, [id number] #### [facility] [address] [place] [address] Neutrophils/Leukocy dmitry Auto (Bld) [Pure # fraction] 3.3 E9/L Normal 2.0-7.5 [facility] Comment on above: Order Comment: Order Added by Discern Expert. Performed By: #### 2 841234, [id number] #### [facility] [address] [place] [address] CBC w/ Auto Diffon 3 Erythrocyte distribution width (RBC) [Ratio] 12.9 % Normal 10.9-14.2 [facility] Comment on above: Performed By: #### 2 083864, [id number] #### [facility] [address] [place] [address] Hematocrit (Bld) [Volume fraction] 36.5 % Normal 34.0-46.0 [facility] Comment on above: Performed By: #### 2 456391, [id number] #### [facility] [address] [place] [address] Hemoglobin (Bld) [Mass/Vol] 12.1 g/dL Normal 12.0-16.0 [facility] Comment on above: Performed By: #### 2 953683, [id number] #### [facility] [address] [place] [address] MCH (RBC) [Entitic mass] 31.1 pg Normal 27.0-34.0 [facility] Comment on above: Performed By: #### 2 803534, [id number] #### [facility] [address] [place] [address] MCHC (RBC) [Mass/Vol] 33.3 g/dL Normal 31.4-36.0 [facility] Comment on above: Performed By: #### 2 496870, 5771961 #### [facility] [address] [place] [address] MCV (RBC) [Entitic vol] 93.3 fL Normal 80.0-100.0 [facility] Comment on above: Performed By: #### 2 136637, [id number] #### [facility] [address] [place] [address] Platelet mean volume (Bld) [Entitic vol] 8.6 fL Normal 6.4-10.8 [facility] Comment on above: Performed By: #### 2 535595, [id number] #### [facility] [address] [place] [address] Platelets (Bld) [#/Vol] 227.0 E9/L Normal 150.0-500.0 [facility] Comment on above: Performed By: #### 2 875840, [id number] #### [facility] [address] [place] [address] RBC (Bld) [#/Vol] 3.9 E12/L Low 4.3-5.9 [facility] Comment on above: Performed By: #### 2 384104, [id number] #### [facility] [address] [place] [address] WBC corrected for nucl RBC Auto (Bld) [#/Vol] 5.3 E9/L Normal 4.0-11.0 [facility] Comment on above: Performed By: #### 2 806096, [id number] #### [facility] [address] [place] [address] [place] [address] [address] Maxillofacial w/o Contrrina ruff 07-25-2023 CT Maxillofacial w/o Contrast Exam [...] Latasha Arciniega MD Transcribed by: KARL Technologist: [facility] Consent for Treatmenton 07-09 Consent for Treatment [id number]#1.00TIFF [facility] HEMATOLOGYOrdered By: SYSTEM SYSTEM on 07-25-2023 [...] 5.3 E9/L Normal 4.0 - 11.0 E9/L [facility] HemeAutoSS Consent for Treatmenton 07-09 Consent for Treatment [id number]#1.00TIFF Normal [facility] Consent for Procedure/Surger yon 07-23-2023 Consent for Procedure/Surgery [id number]#1.00TIFF Normal [facility] Insurance Correspondenceon 09-21-2022 Insurance Correspondence [id number]#1.00TIFF Normal [facility] Ambulatory Visit Summaryon 09-20-2022 Ambulatory Visit Summary AZUL ONTIVEROS :1990 Visit Date:07/21/2023 Ambulatory Visit Instructions Your Diagnosis Cholelithiasis BMI 50.0-59.9, adult Your Care Team Attending Physician - Alonso SOTELO, Alexx Dowling Primary Care Physician - STANLEY SOTELO, TEZ This Is Your Medications List buPROPion (buPROPion [...] AM EST With: Alexx Gupta MD Where: [facility] General Surgery [place] Normal [facility] General Surgery Office/Clini c Noteon 07-21-2023 General Surgery Office/Clinic Note Chief Complaint RUQ pain 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 female here [...] with voice recognition artificial intelligence software, specifically Bidgely, Panjo and or Blueknow. Substitutions may have occurred voice recognition and artificial intelligence software. Documentation services were performed after patient or guardian consented to allow [employer] to record this visit. JOANN patent law specialist and provider reviewed before signing. JOANN: Rosalva [...] unknown Tobacco (more content not included)... Normal [facility] Comment on above: Result Comment: Elec tronically [...] food choices, such as grocery stores and [employer]. What are the signs or symptoms? The [...] you have to (more content not included)... [facility] Insurance Correspondenceon 1 09-15-2022 Insurance Correspondence [id number]#1.00TIFF [facility] Physician Orderon 07-16-2023 Physician Order [id number]#1.00TIFF [facility] US Gallbladderon 07-15-2023 US Gallbladder Exam [...] M.D. Transcribed by: KARL Technologist: SERAFIN Benitez [facility] Consent for Treatmenton 11-0 Consent for Treatment [id number]#1.00TIFF [facility] Ambulatory Visit Summaryon 1 Ambulatory Visit [...] Abdominal pain, No, Epigastric abdominal pain Normal [facility] Gastroenterology Office/Clin ic Noteon 07-08-2023 Gastroenterology Office/Clinic Note Chief Complaint Upper abdominal pain and pain when breathing. HPI Staff This is a 32 year old female who presents today for a follow up from [facility] ER on 06/23/23, for complaints of GERD/ gastritis. Dr Angel referred patient to for gallbladder. History of Present Illness Patient is a 32-year-old female who presents for follow-up from ED visit 06/23/2023 at [facility] ED. Presents with female visitor today. Review [...] father, diagnosed in his 30s and hx. [place] at age early 40s, reports her father [...] She explains she used to drink alcohol [id number]: 3 cans of beer and 1/2 gallon [...] Ordered EGD. Ordered: EGD Endoscopy (Hospital Procedure) [facility] Internal Ambulatory Referral US Gallbladder 2. Nausea [...] Ordered EGD. Ordered: EGD Endoscopy (Hospital Procedure) [facility] Internal Ambulatory Referral US Gallbladder 3. Irregular [...] in c (more content not included)... Normal [facility] Comment on above: Result Comment: Elec tronically [...] added (diluted fruit juice). ? Eat bland, ajim-vp-kiifks foods in small amounts as you are able. These foods include bananas, applesauce, rice, lean meats, toast, and crackers. ? Avoid drinking fluids that contain a lot of sugar or caffeine, such as energy drinks, sports drinks, and soda. ? Avoid alcohol. ? Avoid spicy or fatty foods. General instructions ? Take mxpq-ryh-kbckvva and prescription medicines only as told by [...] and water are not available, use hand backrest assembler. ? Make sure that everyone in your [...] recommendations for eating and drinking and take slxs-idt-iwobjew and prescription medicines only as told by [...] provider. Document Revised: 03/01/2022 Document Reviewed: 03/01/2022 ElseQVPN Patient Education ? 2022 [employer] Normal [facility] Reminderson 07-08-2023 Reminders - From: Zoya Deal To: [facility] - Reminders/Recalls; Sent: 07/08/2023 14:50:43 EDT Show up: 07/08/2023 14:51:00 EDT Subject: Ambulatory Reminder Medicaid [place] Reminder/Recall call pt and schedule EGD and Colon with Dr. Patino once Medicaid [place] has been approved. Normal [facility] Physician Referralon 023 Physician Referral [id number]#1.00TIFF Normal [facility] Auto Diffon 06-23-2023 Basophils/100 WBC (Bld) 0.4 % Normal 0.0-2.0 [facility] Comment on above: Order Comment: Order Added by Discern Expert. Performed By: #### 2 084745, 95767927, 6456583, 17219976, 8088968, 0121105, 9143756 #### [facility] [address] [place] [address] Basophils/Leukocyte s Auto (Bld) [Pure # fraction] 0.0 E9/L Normal 0.0-0.2 [facility] Comment on above: Order Comment: Order Added by Discern Expert. Performed By: #### 2 284151, 49586621, 4316479, 22585532, 1985115, 7595445, 0155863 #### [facility] [address] [place] [address] Eosinophils/100 WBC (Bld) 0.6 % Normal 0.0-8.0 [facility] Comment on above: Order Comment: Order Added by Discern Expert. Performed By: #### 2 836923, 14433104, 4927687, 67237867, 5089467, 9604752, 5052041 #### [facility] [address] [place] [address] Eosinophils/Leukocy dmitry Auto (Bld) [Pure # fraction] 0.0 E9/L Normal 0.0-0.5 [facility] Comment on above: Order Comment: Order Added by Discern Expert. Performed By: #### 2 476774, 29503502, 4825767, 31689052, 2026198, 5717790, 8063893 #### [facility] [address] [place] [address] Lymphocytes/100 WBC (Bld) 13.9 % Low 14.0-50.0 [facility] Comment on above: Order Comment: Order Added by Discern Expert. Performed By: #### 2 501599, 53978223, 8550199, 12319836, 2690947, 5520623, 1692322 #### [facility] [address] [place] [address] Lymphocytes/Leukocy dmitry Auto (Bld) [Pure # fraction] 1.0 E9/L Normal 1.0-4.0 [facility] Comment on above: Order Comment: Order Added by Discern Expert. Performed By: #### 2 319302, 74256753, 5643880, 20238701, 8155134, 0382304, 0737670 #### [facility] [address] [place] [address] Monocytes/100 WBC (Bld) 5.5 % Normal 4.0-14.0 [facility] Comment on above: Order Comment: Order Added by Discern Expert. Performed By: #### 2 313070, 43395645, 6010415, 47295168, 6143184, 3548823, 8710065 #### [facility] [address] [place] [address] Monocytes/Leukocyte s Auto (Bld) [Pure # fraction] 0.4 E9/L Normal 0.2-1.0 [facility] Comment on above: Order Comment: Order Added by Discern Expert. Performed By: #### 2 494473, 60200893, 4626750, 31287105, 8736039, 1901672, 4751953 #### [facility] [address] [place] [address] Neutrophils/100 WBC (Bld) 79.6 % High 36.0-75.0 [facility] Comment on above: Order Comment: Order Added by Discern Expert. Performed By: #### 2 555148, 44065198, 0626151, 50641612, 0475876, 9613783, 1714308 #### [facility] [address] [place] [address] Neutrophils/Leukocy dmitry Auto (Bld) [Pure # fraction] 5.5 E9/L Normal 2.0-7.5 [facility] Comment on above: Order Comment: Order Added by Discern Expert. Performed By: #### 2 431965, 27226928, 9395617, 97912096, 6483422, 1742664, 0234064 #### [facility] [address] [place] [address] B hCG Qualon 06-23-2023 Beta hCG Ql Negative Normal [facility] Comment on above: Performed By: #### 2 182429, 26733056, 3878882, 53678701, 9942980, 0370642, 0801897 ####[facility] [address] [place] [address] BMPon 06-23-2023 Creatinine [Mass/Vol] 1.1 mg/dL Normal 0.5-1.3 [facility] Comment on above: Performed By: #### 2 945722, 51166458, 2872305, 54610466, 7743816, 6695659, 1874258 ####[facility] [address] [place] [address] Urea nitrogen [Mass/Vol] 17 mg/dL Normal 5-21 [facility] Comment on above: Performed By: #### 2 598542, 96655473, 1972850, 77904794, 4548700, 3532502, 3727229 ####[facility] [address] [address] Urea nitrogen/Creatinine [Mass ratio] 16 No Units Normal 10-20 [facility] Comment on above: Performed By: #### 2 116272, 11899441, 8808292, 21389898, 0529497, 1538030, 7585345 ####[facility] [address] [address] Anion gap [Moles/Vol] 9 mmol/L Normal 6-16 [facility] Comment on above: Performed By: #### 2 348734, 27155855, 5783229, 66076143, 1610149, 9467923, 1941627 ####[facility] [address] [place] [address] Calcium [Mass/Vol] 8.8 mg/dL Low 8.9-11.1 [facility] Comment on above: Performed By: #### 2 420825, 67846946, 2950241, 27480780, 6617881, 2316180, 5460963 ####[facility] [address] [place] [address] Chloride [Moles/Vol] 111 mmol/L Normal 101-111 [facility] Comment on above: Performed By: #### 2 703967, 78321372, 9985333, 34078276, 9761514, 3947302, 1959984 ####[facility] [address] [place] [address] CO2 [Moles/Vol] 18 mmol/L Low 21-31 [facility] Comment on above: Performed By: #### 2 344796, 40356016, 3801346, 77390524, 2280604, 9690535, 3930363 ####[facility] [address] [place] [address] Glucose [Mass/Vol] 142 mg/dL Normal 55-199 [facility] Comment on above: Result Comment: If t his glucose result represents a fasting glucose, interpretation should refer to the following reference range: 55-99 mg/dL Performed By: #### 2 104318, 79664398, 3614206, 20014296, 7966744, 2927860, 0733509 ####[facility] [address] [place] [address] Potassium [Moles/Vol] 3.9 mmol/L Normal 3.5-5.3 [facility] Comment on above: Performed By: #### 2 646327, 35067528, 8479200, 68079252, 0240230, 2788414, 3827289 ####[facility] [address] [place] [address] Sodium [Moles/Vol] 134 mmol/L Low 135-145 [facility] Comment on above: Performed By: #### 2 274428, 10500022, 8801257, 30021462, 5506369, 4911443, 9594108 ####[facility] [address] [place] [address] CBC w/ Auto Diffon 3 Erythrocyte distribution width (RBC) [Ratio] 12.3 % Normal 10.9-14.2 [facility] Comment on above: Performed By: #### 2 603218, 60412640, 4102504, 56054426, 6085467, 5257143, 5807354 #### [facility] [address] [place] [address] Hematocrit (Bld) [Volume fraction] 38.3 % Normal 34.0-46.0 [facility] Comment on above: Performed By: #### 2 107370, 80844783, 4046260, 46024341, 4778348, 3578258, 8273976 #### [facility] [address] [place] [address] Hemoglobin (Bld) [Mass/Vol] 13.1 g/dL Normal 12.0-16.0 [facility] Comment on above: Performed By: #### 2 597866, 31514167, 1643021, 23920141, 0148128, 8170490, 2515823 #### [facility] [address] [place] [address] MCH (RBC) [Entitic mass] 31.4 pg Normal 27.0-34.0 [facility] Comment on above: Performed By: #### 2 080737, 81698377, 5666712, 38042180, 7572562, 3721101, 8518519 #### [facility] [address] [place] [address] MCHC (RBC) [Mass/Vol] 34.2 g/dL Normal 31.4-36.0 [facility] Comment on above: Performed By: #### 2 430286, 66074052, 2822473, 99338958, 0965287, 6188870, 2792660 #### [facility] [address] [place] [address] MCV (RBC) [Entitic vol] 91.8 fL Normal 80.0-100.0 [facility] Comment on above: Performed By: #### 2 760908, 62705383, 1428654, 09706205, 7096377, 9949795, 2430751 #### [facility] [address] [place] [address] Platelet mean volume (Bld) [Entitic vol] 8.8 fL Normal 6.4-10.8 [facility] Comment on above: Performed By: #### 2 299082, 00098946, 3946528, 12157663, 1375607, 9101968, 9031541 #### [facility] [address] [place] [address] Platelets (Bld) [#/Vol] 201.0 E9/L Normal 150.0-500.0 [facility] Comment on above: Performed By: #### 2 259515, 10522081, 5071452, 78426456, 3955670, 7184692, 0748484 #### [facility] [address] [place] [address] RBC (Bld) [#/Vol] 4.2 E12/L Low 4.3-5.9 [facility] Comment on above: Performed By: #### 2 055750, 34318018, 4147653, 45468591, 6629718, 5319520, 0194770 #### [facility] [address] [place] [address] WBC corrected for nucl RBC Auto (Bld) [#/Vol] 6.9 E9/L Normal 4.0-11.0 [facility] Comment on above: Performed By: #### 2 529221, 52996046, 1883073, 10328662, 6323595, 3413177, 8456152 #### [facility] [address] [place] [address] CHEMISTRYOrdered By: SYSTEM SYSTEM on 06-23-2023 Albumin [...] 68 mL/min/1.73 m2 Normal >=59mL/min/ 1.73 m2 [facility] Chem S Comment on above: Interpretive Data: [...] Consent for Treatmenton 06-08 Consent for Treatment [id number]#1.00TIFF Normal [facility] Discharge Instructionson Discharge Instructions [id number]#1.00TIFF Normal [facility] ED Clinical Summaryon 2022 ED Clinical Summary (Inserted Image. Zenaida ble to display) [address] [address] ED Clinical Summary Person Information Name: AZUL ONTIVEROS [facility] Age: 32 Years : 1990 Sex: Female Language: Vietnamese PCP: TEZ ANGEL MD Marital Status: Single [...] 06/23/2023 12:53:50 06/23/2023 12:53:50 ADDRESS: [place] [id number] PHYS DOC NOTES: MEDICAL INFORMATION: Prescriptions Given: [...] Michael Patino [address], [address], [address] [phone] Business (1) In 3 days 06/26/2023 With: Address: When: TEZ ANGEL [address], [place] [phone] Business (1) In 3 days 06/26/2023 DIAGNOSIS: Gastritis Normal [facility] ED Note-Physicianon 06-23-20 ED Note-Physician Basic Information [...] Patino In 3 days 06/26/2023 EDT [address] [facility], [address] [phone] Business (1) Additional Instructions: TEZ ANGEL In 3 days 06/26/2023 EDT [address] [place] [address] Business (1) Additional Instructions: Patient Education Gastritis, Adult Attestation Patient seen and evaluated by the physician yard assistant. Attending physician was present in the emergency department and supervised care. This visit was performed by both the physician and an APC. I performed all aspects of the MDM as documented. This report was transcribed using voice recognition software. Every effort was made to ensure accuracy, however, inadvertently computerized legal instruments examiner mistakes may be present. Appropriate healthcare PPE [...] dilut (more content not included)... Normal [facility] Comment on above: Result Comment: Elec [...] medicines. These include steroids, antibiotics, and some ezyv-ely-awhtaal medicines, such as aspirin or ibuprofen. ? [...] these instructions at home: Medicines ? Take hwvr-llk-onovmje and prescription medicines only as told by [...] your stom (more content not included)... Normal [facility] ED Patient Summaryon 023 ED Patient Summary (Inserted Image. Zenaida ble to display) [place] [id number] Patient Discharge Instructions Person Information Name: AZUL ONTIVEROS Age: 32 Years Arrival Date: 06/23/2023 09:19:14 Discharge Diagnosis: Gastritis Primary Care Physician: TEZ ANGEL MD Provider Information Primary Provider: Alexx Pena DO Advanced Vamp Liner:Alban Givens PA-C The exam and treatment you received in the Emergency Department were for an urgent problem and are not intended as complete care. It is important that you follow up with a doctor, nurse practitioner, or physician?s yard assistant for ongoing care. If your symptoms become [...] With: Address: When: [address], [address], [facility] [address] [place] [phone] Business (1) In 3 days 06/26/2023 With: Address: When: TEZ ANGEL [address] [place], [place] [phone] Business (1) In 3 days 06/26/2023 In the event that this physician does not participate in your insurance network, please consult with your insurance company to find a nearby participating provider. Patient Education Materials: Gastritis, Adult A MESSAGE TO ALL PATIENTS REGARDING OPIOIDS PRESCRIPTION OPIOIDS: WHAT YOU NEED TO KNOW Prescription opioids can be used to help relieve zgwazjfb-me-frgvxv pain and are often prescribed following a [...] struggling wit (more content not included)... Normal [facility] HEMATOLOGYOrdered By: SYSTEM SYSTEM on 06-23-2023 Basophils/100 [...] 06-23-2023 Albumin [Mass/Vol] 3.5 g/dL Normal 3.3-5.0 [facility] Comment on above: Performed By: #### 2 568908, 55856610, 8222723, 79181428, 6679593, 8631691, 0073628 ####[address] [address] Albumin/Globulin (S) [Mass conc ratio] 1.1 Normal 1.1-2.2 [facility] Comment on above: Performed By: #### 2 309644, 54785054, 9635057, 27276363, 4532008, 3573367, 5356422 ####[facility] [address] [place] [address] ALP [Catalytic activity/Vol] 77 Int._Unit/L Normal 21-98 [facility] Comment on above: Performed By: #### 2 861637, 48081954, 8541726, 26200084, 0240758, 7225134, 2554942 ####[address] [address] ALT No additional P-5'-P [Catalytic activity/Vol] 17 Int._Unit/L Normal 6-46 [facility] Comment on above: Performed By: #### 2 441672, 92882966, 1508924, 85553490, 9093140, 4005445, 9232125 ####[address] [address] AST [Catalytic activity/Vol] 22 Int._Unit/L Normal 5-43 [facility] Comment on above: Performed By: #### 2 335701, 53817126, 9782692, 37237816, 7488528, 7833305, 6781326 ####[address] [address] Bilirubin [Mass/Vol] 0.5 mg/dL Normal 0.0-1.1 [facility] Comment on above: Performed By: #### 2 643898, 40023121, 9176177, 24961837, 4559454, 0831716, 0079862 ####[address] [place] [address] Bilirubin.direct [Mass/Vol] 0.2 mg/dL Normal 0.1-0.4 [facility] Comment on above: Performed By: #### 2 182890, 68872380, 2306489, 44909082, 9982056, 1632481, 6822165 ####[facility] [address] [place] [address] Bilirubin.indirect [Mass or moles/Vol] 0.3 mg/dL Normal 0.1-0.9 [facility] Comment on above: Performed By: #### 2 663615, 56622740, 9244379, 76868656, 2488981, 9726632, 3420491 ####[address] [address] Globulin (S) [Mass/Vol] 3.3 g/dL Normal 1.4-4.0 [facility] Comment on above: Performed By: #### 2 216785, 01106765, 5568992, 22463267, 4306265, 8971738, 0173219 ####[address] [address] Protein [Mass/Vol] 6.8 g/dL Normal 6.0-7.8 [facility] Comment on above: Performed By: #### 2 191805, 62080629, 3295695, 38769856, 6854943, 9086086, 1371054 ####[address] [address] Lipase Levelon 06-23-2023 Lipase [Catalytic activity/Vol] 28 U/L Normal 13-58 [facility] Comment on above: Performed By: #### 2 056827, 43510728, 1448980, 57705750, 5423328, 7164633, 4933360 ####[place] [address] [place] [address] SEROLOGYOrdered By: Tami Randle on 06-23-2023 Beta hCG Ql Negative (06/23/23 10:07 AM) Normal [facility] Man Sero UA With Cult Reflexon 2022 Bacteria LM Ql (Urine sed) TRACE Normal Trace [facility] Comment on above: Performed By: #### 1 5938950 ####[facility] [address] [place] [address] Bilirubin Ql (U) Negative Normal Negative [facility] Comment on above: Performed By: #### 1 9086652 ####[facility] [address] [place] [address] Clarity (U) SL CLOUDY Invalid Interpretation Code [facility] Comment on above: Performed By: #### 1 9002733 ####[facility] [address] [place] [address] Color (U) RED Abnormal Yellow [facility] Comment on above: Performed By: #### 1 5674664 ####[address] [address] Epithelial cells.squamous LM.HPF (Urine sed) [#/Area] 3-4 Normal 0-2 [facility] Comment on above: Performed By: #### 1 5584670 ####[facility] [address] [place] [address] Glucose Test strip (U) [Mass/Vol] Negative Normal Negative [facility] Comment on above: Performed By: #### 1 8586641 ####[facility] [address] [place] [address] Hemoglobin Ql (U) 3+ Abnormal Negative [facility] Comment on above: Performed By: #### 1 1938822 ####[facility] [address] [address] Ketones (U) [Mass/Vol] Negative Normal Negative [facility] Comment on above: Performed By: #### 1 9728149 ####[facility] [address] [place] [address] [place].plasma/Lith ium.RBC (Bld) [Mass ratio] >75 Abnormal 0-3 [facility] Comment on above: Performed By: #### 1 0973478 ####[address] [address] Mucus Ql (Urine sed) TRACE Normal [facility] Comment on above: Performed By: #### 1 3118695 ####[address] [address] Nitrite Ql (U) Negative Normal Negative [facility] Comment on above: Performed By: #### 1 0601058 ####[address] [address] pH (U) 6.0 [pH] Invalid Interpretation Code 5.0-9.0 [facility] Comment on above: Performed By: #### 1 1179731 ####[address] [address] Protein (U) [Mass/Vol] 1+ Abnormal Negative [facility] Comment on above: Performed By: #### 1 4835148 ####[address] [address] Specific gravity (U) [Rel density] <=1.005 Invalid Interpretation Code 1.005-1.030 [facility] Comment on above: Performed By: #### 1 4193452 ####[address] [address] Type of Urine collection method Clean Catch Normal [facility] Comment on above: Performed By: #### 1 8601491 ####[address] [address] Urobilinogen Qn (U) 0.2 {Stevenson'U}/dL Normal 0.0-1.0 [facility] Comment on above: Performed By: #### 1 9516798 ####[address] [address] WBC Auto Ql (U) Negative Normal Negative [facility] Comment on above: Performed By: #### 1 3495415 ####[address] [address] WBC LM.HPF (Urine sed) [#/Area] 0-5 Normal 0-5 [facility] Comment on above: Performed By: #### 1 3473848 ####[facility] [address] [place] [address] URINALYSISOrdered By: Dinorah Randle on 06-23-2023 Bacteria [...] AM) Normal Negative [facility] UA Auto SS [place].plasma/Lith ium.RBC (Bld) [Mass ratio] >75 /HPF Invalid [...] [facility] UA Auto SS Urobilinogen Qn (U) 0.6801434 {Stevenson'U}/dL Normal 0.0 - 1.0 EU/dL [facility] UA Auto SS WBC Auto Ql (U) Negative (06/23/23 11:23 AM) Normal Negative [facility] UA Auto SS WBC LM.HPF (Urine sed) [#/Area] 0-5 /HPF Normal 0-5/HPF [facility] UA Auto SS XR Chest Single Viewon [...] mGy = na DAP = na Normal [facility] eGFRon 06-23-2023 GFR/1.73 sq M.predicted among non-blacks MDRD (S/P/Bld) [Vol rate/Area] 68 mL/min/1.73 m2 Normal >=59 [facility] Comment on above: Order Comment: Order added by Discern Expert. Result Comment: Intermediate Manager jaden kidney disease could be indicated at eGFR's of less than 60 mL/min/1.73m2. Kidney failure is indicated at less than 15 mL/min/1.73m2. Performed By: #### 2 953270, 21709336, 0796610, 84442903, 0423485, 2163415, 5890233 ####[facility] [address] [place] [address] TSHon 01-09-2023 TSH 1.192 uIU/mL Normal 0.358-3.740 [facility] Comment on above: Performed By: #### T SH #### [facility] [address] [place] [address] [address] Gage Mathis PAP ACOG PANEL 2: 30 to 65on 01-08-2023 . . Normal [facility] Comment on above: Result Comment: Perf ormed at: WB Performed By: #### L IVER, LIPID, TSH, FT3, BMP #### [facility] [address] [place] [address] [address] Gage Mathis Age Gdln ACOG Testing 30-65 Normal [facility] Comment on above: Performed By: #### L IVER, LIPID, TSH, FT3, BMP #### [facility] [address] [place] [address] [address] Gage Mathis DIAGNOSIS: Comment Normal [place] [facility] Comment on above: Result Comment: NEGA TIVE FOR INTRAEPITHELIAL LESION OR MALIGNANCY. THIS SPECIMEN WAS RESCREENED PART OF OUR VERTICAL PUNCH OPERATOR PROGRAM. Performed at: WB Performed By: #### L IVER, LIPID, TSH, FT3, BMP #### [facility] [address] [place] [address] Dr. aGge Mathis HPV Aptima Negative Normal Negative [facility] Comment on above: Result Comment: This nucleic acid amplification test detects fourteen high-risk HPV types (16,18,31,33,35,39,45,51,52,56,58,59,66,68) without differentiation. Performed at: =G Performed By: #### L IVER, LIPID, TSH, FT3, BMP #### [facility] [address] [address] [address] Gage Mathis HPV Genotype Reflex Comment Normal [facility] Comment on above: Result Comment: Crit eria not met, HPV Genotype not performed. Performed at: WB Performed By: #### L IVER, LIPID, TSH, FT3, BMP #### [facility] [address] [place] [address] Dr. Gage Mathis Methodology: Comment Normal [facility] Comment on above: Result Comment: This liquid based ThinPrep(R) pap test was screened with the use of an image guided system. Performed at: WB Performed By: #### L IVER, LIPID, TSH, FT3, BMP #### [facility] [address] [place] [address] Dr. Gage Mathis Note: Comment Normal [facility] Comment on above: Result Comment: The Pap [...] L IVER, LIPID, TSH, FT3, BMP #### [facility] [address] [place] [address] Dr. Gage Mathis Performed by: Comment Normal [facility] Comment on above: Result Comment: Zoya Davis, Food And Nutrition Teacher (ASCP) Performed at: WB Performed By: #### L IVER, LIPID, TSH, FT3, BMP #### [facility] [address] [place] [address] Dr. Gage Mathis QC reviewed by: Comment Normal [facility] Comment on above: Result Comment: Clotilde Suresh, Supervisory Food And Nutrition Teacher (ASCP) Performed at: WB Performed By: #### L IVER, LIPID, TSH, FT3, BMP #### [facility] [address] [place] [address] Dr. Gage Mathis Specimen adequacy: Comment Normal [facility] Comment on above: Result Comment: Sati sfactory for evaluation. Endocervical and/or squamous metaplastic cells (endocervical component) are present. Performed at: WB Performed By: #### L IVER, LIPID, TSH, FT3, BMP #### [facility] [address] [place] [address] Dr. Gage Mathis CBC AUTO DIFFon 12-04-2022 BASO # 0.0 103/ul Normal 0.0-0.1 [facility] Comment on above: Performed By: #### L IVER, LIPID, TSH, FT3, BMP #### [facility] [address] [place] [address] Dr. Gage Mathis Basophils/100 WBC (Bld) 0.4 % Normal 0.2-2.0 [facility] Comment on above: Performed By: #### L IVER, LIPID, TSH, FT3, BMP #### [facility] [address] [place] [address] Dr. Gage Mathis EO # 0.1 103/ul Normal 0.0-0.7 [facility] Comment on above: Performed By: #### L IVER, LIPID, TSH, FT3, BMP #### [facility] [address] [place] [address] Dr. Gage Mathis Eosinophils/100 WBC (Bld) 1.3 % Normal 0.9-7.0 [facility] Comment on above: Performed By: #### L IVER, LIPID, TSH, FT3, BMP #### [facility] [address] [place] [address] Dr. Gage Mathis Erythrocyte distribution width (RBC) [Ratio] 12.4 % Normal 11.0-15.0 [facility] Comment on above: Performed By: #### L IVER, LIPID, TSH, FT3, BMP #### [facility] [address] [place] [address] Dr. Gage Mathis Hematocrit (Bld) [Volume fraction] 37.1 % Normal 36.0-48.0 [facility] Comment on above: Performed By: #### L IVER, LIPID, TSH, FT3, BMP #### [facility] [address] [place] [address] Dr. Gage Mathis Hemoglobin (Bld) [Mass/Vol] 12.1 g/dL Normal 12.0-16.0 [facility] Comment on above: Performed By: #### L IVER, LIPID, TSH, FT3, BMP #### [facility] [address] [place] [address] Dr. Gage Mathis IG # 0.01 10e3/ul Normal 0.00-0.03 [facility] Comment on above: Performed By: #### L IVER, LIPID, TSH, FT3, BMP #### [facility] [address] [place] [address] Dr. Gage Mathis IG % 0.2 % Normal 0.0-0.5 [facility] Comment on above: Performed By: #### L IVER, LIPID, TSH, FT3, BMP #### [facility] [address] [place] [address] Dr. Gage Mathis LYMPH # 1.6 103/ul Normal 1.2-3.8 [facility] Comment on above: Performed By: #### L IVER, LIPID, TSH, FT3, BMP #### [facility] [address] [place] [address] Dr. Gage Mathis Lymphocytes/100 WBC (Bld) 30.6 % Normal 20.5-60.0 [facility] Comment on above: Performed By: #### L IVER, LIPID, TSH, FT3, BMP #### [facility] [address] [place] [address] Dr. Gage Mathis MANUAL DIFF REQ NO Normal [facility] Comment on above: Performed By: #### L IVER, LIPID, TSH, FT3, BMP #### [facility] [address] [place] [address] Dr. Gage Mathis MCH (RBC) [Entitic mass] 31.8 pg Normal 26.7-34.0 [facility] Comment on above: Performed By: #### L IVER, LIPID, TSH, FT3, BMP #### [facility] [address] [place] [address] Dr. Gage Mathis MCHC (RBC) [Mass/Vol] 32.6 g/dL Normal 29.9-35.2 [facility] Comment on above: Performed By: #### L IVER, LIPID, TSH, FT3, BMP #### [facility] [address] [place] [address] Dr. Gage Mathis MCV (RBC) [Entitic vol] 97.4 fL Normal 81.0-99.0 [facility] Comment on above: Performed By: #### L IVER, LIPID, TSH, FT3, BMP #### [facility] [address] [place] [address] Dr. Gage Mathis MONO # 0.4 103/ul Normal 0.3-0.8 [facility] Comment on above: Performed By: #### L IVER, LIPID, TSH, FT3, BMP #### [facility] [address] [place] [address] Dr. Gage Mathis Monocytes/100 WBC (Bld) 8.4 % Normal 1.7-12.0 [facility] Comment on above: Performed By: #### L IVER, LIPID, TSH, FT3, BMP #### [facility] [address] [place] [address] Dr. Gage Mathis NEUT # 3.1 103/ul Normal 1.4-6.5 [facility] Comment on above: Performed By: #### L IVER, LIPID, TSH, FT3, BMP #### [facility] [address] [place] [address] Dr. Gage Mathis Neutrophils/100 WBC (Bld) 59.1 % Normal 43.0-75.0 [facility] Comment on above: Performed By: #### L IVER, LIPID, TSH, FT3, BMP #### [facility] [address] [place] [address] Dr. Gage Mathis Platelet mean volume (Bld) [Entitic vol] 10.1 fL Normal 9.5-13.5 [facility] Comment on above: Performed By: #### L IVER, LIPID, TSH, FT3, BMP #### [facility] [address] [place] [address] Dr. Gage Mathis PLT 205 103/ul Normal 150-450 [facility] Comment on above: Performed By: #### L IVER, LIPID, TSH, FT3, BMP #### [facility] [address] [place] [address] Dr. Gage Mathis RBC 3.81 106/ul Critically low 4.20-5.40 [facility] Comment on above: Performed By: #### L IVER, LIPID, TSH, FT3, BMP #### [facility] [address] [place] [address] Dr. Gage Mathis WBC 5.2 103/ul Normal 4.0-11.0 [facility] Comment on above: Performed By: #### L IVER, LIPID, TSH, FT3, BMP #### [facility] [address] [address] [address] Gage Mathis FREE T4on 12-04-2022 Free T4 [Mass/Vol] 0.98 ng/dL Normal 0.76-1.46 [facility] Comment on above: Performed By: #### L IVER, LIPID, TSH, FT3, BMP #### [facility] [address] [address] [address] Gage Mathis GLYCOHEMOGLOBIN A1Con 2022 ADA RECOMMENDATION SEE BELOW Normal [facility] Comment on above: Result Comment: ADA RECOMMENDED LIMIT 4.0 - 6.0 ADA THERAPEUTIC TARGET < 7.0 ACTION SUGGESTED > 7.0 Performed By: #### L IVER, LIPID, TSH, FT3, BMP #### [facility] [address] [place] [address] Dr. Gage Mathis Glucose [Mass/Vol] 100 mg/dL Normal [facility] Comment on above: Performed By: #### L IVER, LIPID, TSH, FT3, BMP #### [facility] [address] [place] [address] Dr. Gage Mathis HbA1c (Bld) [Mass fraction] 5.1 % Normal 4.5-6.2 [facility] Comment on above: Performed By: #### L IVER, LIPID, TSH, FT3, BMP #### [facility] [address] [place] [address] Dr. Gage Mathis PREG QUANT HCGon 12-04-2022 HCG QUANT <1 Normal [facility] Comment on above: Performed By: #### L IVER, LIPID, TSH, FT3, BMP #### [facility] [address] [place] [address] Dr. Gage Mathis HCG RANGE SEE BELOW Normal [facility] Comment on above: Result Comment: 5-50 0.2-1 WEEK 50-500 1-2 WEEKS 100-5,000 2-3 WEEKS 500-10,000 3-4 WEEKS 1,000-50,000 4-5 WEEKS 10,000-100,000 5-6 WEEKS 15,000-200,000 6-8 WEEKS 10,000-100,000 2-3 MONTHS Performed By: #### L IVER, LIPID, TSH, FT3, BMP #### [facility] [address] [place] [address] Dr. Gage Mathis PROTIMEon 12-04-2022 INR Coag (PPP) [Relative time] 0.94 {INR} Normal [facility] Comment on above: Performed By: #### L IVER, LIPID, TSH, FT3, BMP #### [facility] [address] [place] [address] Dr. Gage Mathis INR GUIDELINES SEE BELOW Normal [facility] Comment on above: Result Comment: KALEB RED INR: 2.0 - 3.0 CONDITIONS NOT LISTED BELOW 2.5 - 3.5 FOR PROSTHETIC HEART VALVE REPLACEMENT 2.5 - 3.5 RECURRENT THROMBOSIS Performed By: #### L IVER, LIPID, TSH, FT3, BMP #### [facility] [address] [place] [address] Dr. Gage Mathis PT Coag (PPP) [Time] 10.0 s Normal 9.0-11.6 [facility] Comment on above: Performed By: #### L IVER, LIPID, TSH, FT3, BMP #### [facility] [address] [place] [address] Dr. Gage Mathis PTTon 12-04-2022 aPTT Coag (Bld) [Time] 28.1 s Normal 22.3-36.2 [facility] Comment on above: Performed By: #### L IVER, LIPID, TSH, FT3, BMP #### [facility] [address] [place] [address] Dr. Gage Mathis TSHon 12-04-2022 TSH 4.110 uIU/mL Critically high 0.358-3.740 [facility] Comment on above: Performed By: #### L IVER, LIPID, TSH, FT3, BMP #### [facility] [address] [place] [address] Dr. Gage Mathis CBC AUTO DIFFon 10-09-2022 BASO # 0.0 103/ul Normal 0.0-0.1 [facility] Comment on above: Performed By: #### C BC #### [facility] [address] [place] [address] Dr. Gage Mathis Basophils/100 WBC (Bld) 0.1 % Critically low 0.2-2.0 [facility] Comment on above: Performed By: #### C BC #### [facility] [address] [place] [address] Dr. Gage Mathis EO # 0.0 103/ul Normal 0.0-0.7 [facility] Comment on above: Performed By: #### C BC #### [facility] [address] [place] [address] Dr. Gage Mathis Eosinophils/100 WBC (Bld) 0.0 % Critically low 0.9-7.0 [facility] Comment on above: Performed By: #### C BC #### [facility] [address] [place] [address] Dr. Gage Mathis Erythrocyte distribution width (RBC) [Ratio] 13.0 % Normal 11.0-15.0 [facility] Comment on above: Performed By: #### C BC #### [facility] [address] [place] [address] Dr. Gage Mathis Hematocrit (Bld) [Volume fraction] 38.6 % Normal 36.0-48.0 [facility] Comment on above: Performed By: #### C BC #### [facility] [address] [place] [address] Dr. Gage Mathis Hemoglobin (Bld) [Mass/Vol] 12.4 g/dL Normal 12.0-16.0 [facility] Comment on above: Performed By: #### C BC #### [facility] [address] [place] [address] Dr. Gage Mathis IG # 0.05 10e3/ul Critically high 0.00-0.03 [facility] Comment on above: Performed By: #### C BC #### [facility] [address] [place] [address] Dr. Gage Mathis IG % 0.5 % Normal 0.0-0.5 [facility] Comment on above: Performed By: #### C BC #### [facility] [address] [place] [address] Dr. Gage Mathis LYMPH # 2.8 103/ul Normal 1.2-3.8 [facility] Comment on above: Performed By: #### C BC #### [facility] [address] [place] [address] Dr. Gage Mathis Lymphocytes/100 WBC (Bld) 26.2 % Normal 20.5-60.0 [facility] Comment on above: Performed By: #### C BC #### [facility] [address] [place] [address] Dr. Gage Mathis MANUAL DIFF REQ NO Normal [facility] Comment on above: Performed By: #### C BC #### [facility] [address] [place] [address] Dr. Gage Mathis MCH (RBC) [Entitic mass] 32.0 pg Normal 26.7-34.0 [facility] Comment on above: Performed By: #### C BC #### [facility] [address] [place] [address] Dr. Gage Mathis MCHC (RBC) [Mass/Vol] 32.1 g/dL Normal 29.9-35.2 [facility] Comment on above: Performed By: #### C BC #### [facility] [address] [place] [address] Dr. Gage Mathis MCV (RBC) [Entitic vol] 99.5 fL Critically high 81.0-99.0 [facility] Comment on above: Performed By: #### C BC #### [facility] [address] [place] [address] Dr. Gage Mathis MONO # 0.6 103/ul Normal 0.3-0.8 [facility] Comment on above: Performed By: #### C BC #### [facility] [address] [place] [address] Dr. Gage Mathis Monocytes/100 WBC (Bld) 5.5 % Normal 1.7-12.0 [facility] Comment on above: Performed By: #### C BC #### [facility] [address] [address] [address] Gage Mathis NEUT # 7.1 103/ul Critically high 1.4-6.5 [facility] Comment on above: Performed By: #### C BC #### [facility] [address] [address] [address] Gage Mathis Neutrophils/100 WBC (Bld) 67.7 % Normal 43.0-75.0 [facility] Comment on above: Performed By: #### C BC #### [facility] [address] [place] [address] Dr. Gage Mathis Platelet mean volume (Bld) [Entitic vol] 10.0 fL Normal 9.5-13.5 [facility] Comment on above: Performed By: #### C BC #### [facility] [address] [place] [address] Dr. Gage Mathis PLT 271 103/ul Normal 150-450 [facility] Comment on above: Performed By: #### C BC #### [facility] [address] [place] [address] Dr. Gage Mathis RBC 3.88 106/ul Critically low 4.20-5.40 [facility] Comment on above: Performed By: #### C BC #### [facility] [address] [place] [address] Dr. Gage Mathis WBC 10.5 103/ul Normal 4.0-11.0 [facility] Comment on above: Performed By: #### C BC #### [facility] [address] [place] [address] Dr. Gage Mathis FREE T3on 10-09-2022 FREE T3 1.64 pg/mlL Critically low 2.18-3.98 [facility] Comment on above: Performed By: #### L IVER, LIPID, TSH, FT3, BMP #### [facility] [address] [place] [address] Dr. Gage Mathis FREE T4on 10-09-2022 Free T4 [Mass/Vol] 1.01 ng/dL Normal 0.76-1.46 [facility] Comment on above: Performed By: #### F T4 #### [facility] [address] [place] [address] Dr. Gage Mathis GLYCOHEMOGLOBIN A1Con 2022 ADA RECOMMENDATION SEE BELOW Normal [facility] Comment on above: Result Comment: ADA RECOMMENDED LIMIT 4.0 - 6.0 ADA THERAPEUTIC TARGET < 7.0 ACTION SUGGESTED > 7.0 Performed By: #### L IVER, LIPID, TSH, FT3, BMP #### [facility] [address] [place] [address] Dr. Gage Mathis Glucose [Mass/Vol] 100 mg/dL Normal [facility] Comment on above: Performed By: #### L IVER, LIPID, TSH, FT3, BMP #### [facility] [address] [place] [address] Dr. Gage Mathis HbA1c (Bld) [Mass fraction] 5.1 % Normal 4.5-6.2 [facility] Comment on above: Performed By: #### L IVER, LIPID, TSH, FT3, BMP #### [facility] [address] [place] [address] Dr. Gage Mathis LIPID PROFILEon 10-09-2022 CHOL-HDL RATIO NORM SEE BELOW Normal [facility] Comment on above: Result Comment: 3.3 - 4.4 LOW RISK 4.4 - 7.1 AVERAGE RISK 7.1 - 11.0 MODERATE RISK >11.0 HIGH RISK Performed By: #### L IVER, LIPID, TSH, FT3, BMP #### [facility] [address] [place] [address] Dr. Gage Mathis Cholesterol [Mass/Vol] 162 mg/dL Normal <=200 [facility] Comment on above: Performed By: #### L IVER, LIPID, TSH, FT3, BMP #### [facility] [address] [place] [address] Dr. Gage Mathis Cholesterol in HDL [Mass/Vol] 78 mg/dL Critically high 40-60 [facility] Comment on above: Performed By: #### L IVER, LIPID, TSH, FT3, BMP #### [facility] [address] [address] [address] Gage Mathis Cholesterol in LDL [Mass/Vol] 72.8 mg/dL Normal [facility] Comment on above: Performed By: #### L IVER, LIPID, TSH, FT3, BMP #### [facility] [address] [address] [address] Gage Mathis Cholesterol.total/C holesterol in HDL [Mass ratio] 2.1 {ratio} Normal [facility] Comment on above: Performed By: #### L IVER, LIPID, TSH, FT3, BMP #### [facility] [address] [address] [address] Gage Mathis HDL NORMAL > or = 60 mg/dl - LO W CARDIOVASCULAR RISK <40 mg/dl - HIGH CARDIOVASCULAR RISK Normal [facility] Comment on above: Performed By: #### L IVER, LIPID, TSH, FT3, BMP #### [facility] [address] [place] [address] Dr. Gage Mathis LDL CALC NORMAL SEE BELOW Normal [facility] Comment on above: Result Comment: <100 mg/dl OPTIMAL 100 - 129 mg/dl NEAR OR ABOVE OPTIMAL 130 - 159 mg/dl BORDERLINE HIGH 160 - 189 mg/dl HIGH >190 mg/dl VERY HIGH Performed By: #### L IVER, LIPID, TSH, FT3, BMP #### [facility] [address] [address] [address] Gage Mathis Triglyceride [Mass/Vol] 56 mg/dL Normal <=150 [facility] Comment on above: Performed By: #### L IVER, LIPID, TSH, FT3, BMP #### [facility] [address] [address] [address] Gage Mathis VLDL CALC 11.2 mg/dL Normal [facility] Comment on above: Performed By: #### L IVER, LIPID, TSH, FT3, BMP #### [facility] [address] [address] [address] Gage Mathis LIVER PROFILEon 10-09-2022 Albumin [Mass/Vol] 3.2 g/dL Critically low 3.4-5.0 [facility] Comment on above: Performed By: #### L IVER, LIPID, TSH, FT3, BMP #### [facility] [address] [place] [address] Dr. Gage Mathis Albumin/Globulin [Mass ratio] 0.9 {ratio} Normal [facility] Comment on above: Performed By: #### L IVER, LIPID, TSH, FT3, BMP #### [facility] [address] [place] [address] Dr. Gage Mathis ALP [Catalytic activity/Vol] 89 U/L Normal 46-116 [facility] Comment on above: Performed By: #### L IVER, LIPID, TSH, FT3, BMP #### [facility] [address] [place] [address] Dr. Gage Mathis ALT [Catalytic activity/Vol] 49 U/L Normal 14-59 [facility] Comment on above: Performed By: #### L IVER, LIPID, TSH, FT3, BMP #### [facility] [address] [place] [address] Dr. Gage Mathis AST [Catalytic activity/Vol] 15 U/L Normal 15-37 [facility] Comment on above: Performed By: #### L IVER, LIPID, TSH, FT3, BMP #### [facility] [address] [place] [address] Dr. Gage Mathis BILI, CONJUGATED 0.1 mg/dL Normal 0.0-0.2 [facility] Comment on above: Performed By: #### L IVER, LIPID, TSH, FT3, BMP #### [facility] [address] [place] [address] Dr. Gage Mathis Bilirubin [Mass/Vol] 0.3 mg/dL Normal 0.2-1.0 [facility] Comment on above: Performed By: #### L IVER, LIPID, TSH, FT3, BMP #### [facility] [address] [place] [address] Dr. Gage Mathis Globulin (S) [Mass/Vol] 3.7 g/dL Normal [facility] Comment on above: Performed By: #### L IVER, LIPID, TSH, FT3, BMP #### [facility] [address] [place] [address] Dr. Gage Mathis Protein [Mass/Vol] 6.9 g/dL Normal 6.4-8.2 [facility] Comment on above: Performed By: #### L IVER, LIPID, TSH, FT3, BMP #### [facility] [address] [place] [address] Dr. Gage Mathis PROF CHEM 8 (BAS METB)on Anion gap [Moles/Vol] 12.1 mmol/L Normal [facility] Comment on above: Performed By: #### L IVER, LIPID, TSH, FT3, BMP #### [facility] [address] [place] [address] Dr. Gage Mathis Calcium [Mass/Vol] 9.0 mg/dL Normal 8.5-10.1 [facility] Comment on above: Performed By: #### L IVER, LIPID, TSH, FT3, BMP #### [facility] [address] [place] [address] Dr. Gage Mathis Chloride [Moles/Vol] 104 mmol/L Normal 98-107 [facility] Comment on above: Performed By: #### L IVER, LIPID, TSH, FT3, BMP #### [facility] [address] [place] [address] Dr. Gage Mathis CO2 [Moles/Vol] 29.6 mmol/L Normal 21.0-32.0 [facility] Comment on above: Performed By: #### L IVER, LIPID, TSH, FT3, BMP #### [facility] [address] [place] [address] Dr. Gage Mathis Creatinine [Mass/Vol] 0.82 mg/dL Normal 0.55-1.02 [facility] Comment on above: Performed By: #### L IVER, LIPID, TSH, FT3, BMP #### [facility] [address] [place] [address] Dr. Gage Mathis EGFR-AF CYPRIOT >60 Normal >=60 [facility] Comment on above: Performed By: #### L IVER, LIPID, TSH, FT3, BMP #### [facility] [address] [address] [address] Gage Mathis EGFR-NON AF CYPRIOT >60 Normal >=60 [facility] Comment on above: Performed By: #### L IVER, LIPID, TSH, FT3, BMP #### [facility] [address] [address] [address] Gage Mathis Glucose [Mass/Vol] 92 mg/dL Normal 74-106 [facility] Comment on above: Performed By: #### L IVER, LIPID, TSH, FT3, BMP #### [facility] [address] [place] [address] Dr. Gage Mathis Potassium [Moles/Vol] 3.7 mmol/L Normal 3.5-5.1 [facility] Comment on above: Performed By: #### L IVER, LIPID, TSH, FT3, BMP #### [facility] [address] [place] [address] Dr. Gage Mathis Sodium [Moles/Vol] 142 mmol/L Normal 136-145 [facility] Comment on above: Performed By: #### L IVER, LIPID, TSH, FT3, BMP #### [facility] [address] [place] [address] Dr. Gage Mathis Urea nitrogen [Mass/Vol] 14.0 mg/dL Normal 7.0-18.0 [facility] Comment on above: Performed By: #### L IVER, LIPID, TSH, FT3, BMP #### [facility] [address] [place] [address] Dr. Gage Mathis Urea nitrogen/Creatinine [Mass ratio] 17.1 mg/mg Normal [facility] Comment on above: Performed By: #### L IVER, LIPID, TSH, FT3, BMP #### [facility] [address] [place] [address] Dr. Gage Mathis TSHon 10-09-2022 TSH 1.637 uIU/mL Normal 0.358-3.740 [facility] Comment on above: Performed By: #### L IVER, LIPID, TSH, FT3, BMP #### [facility] [address] [place] [address] [address] [address] Gage Mathis VITAMIN D 25 OHon 10-09-2022 VIT D 25-OH 41.1 ng/mL Normal [facility] Comment on above: Performed By: #### V ITAD #### [facility] [address] [address] [address] Gage Mathis VIT D RANGES SEE BELOW Normal [facility] Comment on above: Result Comment: <20 ng/mL Vit D deficient 20 - <30 ng/mL Vit D insufficient 30 - 100 ng/mL Vit D sufficient >100 ng/mL Potential Toxicity Performed By: #### V ITAD #### [facility] [address] [place] [address] Dr. Gage Mathis COVID/FLU RT-PCRon SARS-CoV-2 (COVID-19) RNA EB+probe Ql (Unsp spec) Negative [employer] Other COVID/FLU RT-PCR Negative [employer] Other COVID Quick Testingon 2021 Result Negative [employer] Other US PELVIS AND TRANSVAGon US PELVIS [...] for patient's symptoms. Electronically authenticated by: BING MAXIANUP Date: 2022-05-02 17:47 Normal [facility] CHLAMYDIA/GONOCOCCUS EB (SW AB/URINE/PAPon 04-11-2022 Chlamydia trachomatis, EB Negative Normal Negative [facility] Comment on above: Performed By: #### L IVER, LIPID, TSH, FT3, BMP #### [facility] [address] [address] [address] Gage Mathis Neisseria gonorrhoeae, EB Negative Normal Negative [facility] Comment on above: Performed By: #### L IVER, LIPID, TSH, FT3, BMP #### [facility] [address] [place] [address] Dr. Gage Mathis VAGINITIS/VAGINOSIS DNA PROB Sincere 04-10-2022 Sol species Negative Normal Negative [facility] Comment on above: Performed By: #### V AGINT #### [facility] [address] [address] [address] Gage Mathis Gardnerella vaginalis Positive Abnormal Negative [facility] Comment on above: Performed By: #### V AGINT #### [facility] [address] [place] [address] Dr. Gage Mathis Trichomonas vaginalis Negative Normal Negative [facility] Comment on above: Performed By: #### V AGINT #### [facility] [address] [place] [address] Dr. Gage Mathis Basic Metabolic Panlon 08-06 Anion gap 3 molar conc 14 mmol/L Normal 9-18 [facility] Comment on above: Performed By: #### B MP, HFP ####[facility] [place], [place] [phone] Calcium mass conc 9.2 mg/dL Normal 8.5-10.2 [facility] Comment on above: Performed By: #### B MP, HFP ####[facility] [phone] Chloride molar conc 103 mmol/L Normal 97-105 [facility] Comment on above: Performed By: #### B BRYANNA, HFP ####[facility] [place], [place] [phone] CO2 molar conc 24 mmol/L Normal 22-30 [facility] Comment on above: Performed By: #### B MP, HFP ####[address] [address] [place] [phone] Creatinine mass conc 0.83 mg/dL Normal 0.58-0.96 [facility] Comment on above: Performed By: #### B BRYANNA, HFP ####[place] [phone] eGFR- Amer. >[address] [facility] Comment on above: Performed By: #### B BRYANNA, HFP ####[place] [phone] GFR/1.73 sq M predicted among non-blacks MDRD vol rate/area (S/P/Bld) mL/min/{1.73_m2} Normal [facility] Comment on above: Result Comment: eGFR (Estimated [...] GFR. Performed By: #### B BRYANNA, HFP ####[address] [phone] Glucose mass conc 82 mg/dL Normal 74-99 [facility] Comment on above: Result Comment: The [place] [employer] Association (ADA) provides guidance for cutoff [...] Standards of Medical Care in Diabetes 2016, [place] [employer]. Diabetes Care. 2016.39(Suppl 1). Performed By: #### B MP, HFP ####[facility] [place], [place] [phone] Potassium molar conc 4.3 mmol/L Normal 3.7-5.1 [facility] Comment on above: Performed By: #### B MP, HFP ####[facility] [place], [place] [phone] Sodium molar conc 141 mmol/L Normal 136-144 [facility] Comment on above: Performed By: #### B MP, HFP ####[facility] [place], [place] [phone] Urea nitrogen mass conc 14 mg/dL Normal 7-21 [facility] Comment on above: Performed By: #### B BRYANNA, HFP ####[facility] [place], [place] [phone] CNOVSPon 08-06-2018 CNOVSP Visit (SP) Office (HEMACL) AZUL ONTIVEROS ([id number]) 1990 [facility] Time Provider Srnrlniomw64/29/18 3:30 PM SHANT ROMERO During your visit [...] al. Chest 2012, 141:7S-47SNishimura RA, et al. JAC 2017, 70: 252-289 APTT 23.0 - 32.4 [...] oflaboratory APTT reagent in use throughout the [facility]. Platelet Neut Negative Negative Negative DRVVT Screen 32.7 - 46.7 sec 35.1 36.1 42.3 DRVVT Confirm Ratio <1.21 1.10 <1.21 class= rz_g [id number] >0.91 <1.21 class= rz_6 rvj6814 >1.06 DRVVT 1:1 Mix 32.7 - 46.7 sec 33.9 36.2 41.3 Hex Phase Screen 45.0 - 59.9 sec 34.7 54.5 Hex Phase Confirm 41.8 - 54.9 sec 32.6 47.7 Hex Phase Delta <9.1 delta sec 2.1 <9.1 delta sec class= rz_6 nsv8063 >6.7 APTT Screen 24.4 - 33.4 sec 24.3 33.0CM Immediate PTT 1:1 Mix <33.2 sec 26.3 <33.2 sec class= rz_6 rfz5348 >30.6 Incubated PTT 1:1 Mix <35.0 sec 28.3 <35.0 sec class= rz_6 esn2074 >32.4 Thrombin Time <18.6 sec 17.7 <18.6 sec class= rz_6 kfo0889 >16.1 Interpretation(Lupus Anticoagulant) (NOTE) (NOTE)CMComment: Performing Pathologist: [...] GPL <9 <9CMComment: <10 GPL ? ? [id number] GPL ? Equivocal>40 GPL ? ? PositiveThe following results were obtained with the [email or web address] Lite LAVON IgG IIIELISA. Cardiolipin IgG values obtained with the different manufacturers' assay?methods may not be used interchangeably. The magnitude of the reported IgGlevels cannot be correlated to an endpoint titer. Cardiolipin Ab, IgM 0 - 11 MPL <9 9CMComment: <12 MPL ? ? Sqacmqzg49-53 MPL ? Equivocal>40 MPL ? ? PositiveThe following results were obtained with the [email or web address] Lite LAVON IgM IIIELISA. Cardiolipin IgM values obtained with different manufacturers' assaymethods may not be used interchangeably. The magnitude of the reported IgMlevels cannot be correlated to an endpoint titer. Cardiolipin Ab, IgA 0 - 11 APL <9 <9CMComment: <12 APL ? ? Dqjxyodr03-27 APL ? Equivocal>40 APL ? ? PositiveThe following results were obtained with an [employer] QUANTA Lite LAVON IgA IIIELISA. Cardiolipin IgA values obtained with different manufacturers' assaymethods may not be used interchangeably. The magnitude of the reported IgAlevels cannot be correlated to an endpoint titer. Beta 2 Glycoprotein, IgG <20 SGU <9 <20 SGU class= rz_6 bdi0200 ><9CMComment: < 20 ?SGU ? ?Zddxnefx50-44 SGU ? ?Low Positive> 80 ?SGU ? ?High PositiveThese results were obtained with the [email or web address] Lite B2 GPI IgG DAYNA. B2GPI IgG values obtained with different manufacturers' assay methods may not be?used interchangeably. The magnitude of the reported IgG levels cannot becorrelated to an endpoint titer. Beta 2 Glycoprotein, IgM <20 SMU <9 <20 SMU class= rz_6 jzr6039 ><9CMComment: < 20 ?SMU ? ?Hmbgudrx83-43 SMU ? ?Low Positive> 80 ?SMU ? ?High PositiveThese results were obtained with the [employer] QUANTA Lite B2 GPI IgM DAYNA. B2GPI IgM values obtained with different manufacturers' assay methods may not be?used interchangeably. The magnitude of the reported IgM levels cannot becorrelated to an endpoint titer.FACTOR V LEIDEN/PCROrder: [id number]: Final result ??Visible to patient: No (Not Released) Next appt: NoneDx: Positive dilute Idalia's viper venom...Component 3mo agoFactor V Leiden PCR Report (NOTE)Comment: Performing Pathologist: Alvina Sotomayor M.D., Ph.D.Factor V Leiden Mutation Result: NORMALHOMOCYSTEINEOrder: [id number]: Final result ??Visible to patient: No (Not Released) Next appt: NoneDx: Positive dilute Idalia's viper venom... Ref Range AND Units 3mo agoHomocysteine, Serum <15.1 umol/L 9.5Resulting Agency CCMSpecimen Collected: 04/20/18 ?2:22 PM Last Resulted: 04/21/18 ?1:31 PM LabFlowsheet Order Details View Encounter Lab and Collection Details RoutingResult HistoryOther Results from 04/20/2018FACTOR V LEIDEN/PCROrder: [id number]: Final result ??Visible to patient: No (Not [...] and Collection Details RoutingResult HistoryPROTHROMBIN GENE PCROrder: [id number]: Final result ??Visible to patient: No (Not Released) Next appt: NoneDx: Positive dilute Idalia's viper venom...Component 3mo agoPT Gene Report (NOTE)Comment: Performing Pathologist: Alvina Sotomayor M.D., Ph.D.PT Gene Mutation Result: NORMAL ?PT Gene Mutation Interpretation: The DNA sample is negative for [id number] point mutation in the 3' untranslated region [...] and Collection Details RoutingResult HistoryPROTEIN S CLOTTABLEOrder: [id number]: Final result ??Visible to patient: No (Not Released) Next appt: NoneDx: Positive dilute Idalia's viper venom... Ref Range AND Units 3mo agoProtein S Clottable 59 - 131 % 108Resulting Agency CCMSpecimen Collected: 04/20/18 ?2:22 PM Last Resulted: 04/21/18 ?9:13 AM LabFlowsheet Order Details View Encounter Lab and Collection Details RoutingResult HistoryPROTEIN C FUNCTOrder: [id number]: Final result ??Visible to patient: No (Not Released) Next appt: NoneDx: Positive dilute Idalia's viper venom... Ref Range AND Units 3mo agoPro C Fun 76 - 147 % 104Resulting Agency CCMSpecimen Collected: 04/20/18 ?2:22 PM Last Resulted: 04/21/18 ?9:13 AM LabFlowsheet Order Details View Encounter Lab and Collection Details RoutingResult HistoryANTITHROMBIN IIIOrder: [id number]: Final result ??Visible to patient: No (Not Released) Next appt: NoneDx: Positive dilute Idalia's viper venom... Ref Range AND Units 3mo agoAntithrombin Assay 84 - 138 % 93Resulting Agency CCMSpecimen Collected: 04/20/18 ?2:22 PM Last Resulted: 04/21/18 ?9:13 AM LabFlowsheet Order Details View Encounter Lab and Collection Details RoutingResult HistoryLUPUS ANTICOAG PLOrder: [id number]: Final result ??Visible to patient: No (Not [...] oflaboratory APTT reagent in use throughout the [facility].Platelet Neut Negative NegativeDRVVT Screen 32.7 - 46.7 [...] 9 GPL <9Comment: <10 GPL ? ? Bktcfbxq12-79 GPL ? Equivocal>40 GPL ? ? PositiveThe following results were obtained with the [employer] QUANTA Lite LAVON IgG IIIELISA. Cardiolipin IgG values obtained with the different manufacturers' assay?methods may not be used interchangeably. The magnitude of the reported IgGlevels cannot be correlated to an endpoint titer.Cardiolipin Ab, IgM 0 - 11 MPL 9Comment: <12 MPL ? ? Vrlwjdsn13-44 MPL ? Equivocal>40 MPL ? ? PositiveThe following results were obtained with the [employer] Whale PathA Lite LAVON IgM IIIELISA. Cardiolipin IgM values obtained with different manufacturers' assaymethods may not be used interchangeably. The magnitude of the reported IgMlevels cannot be correlated to an endpoint titer.Cardiolipin Ab, IgA 0 - 11 APL <9Comment: <12 APL ? ? Txavairq81-16 APL ? Equivocal>40 APL ? ? PositiveThe following results were obtained with an [employer] QUANTA Lite LAVON IgA IIIELISA. Cardiolipin IgA values obtained with different manufacturers' assaymethods may not be used interchangeably. The magnitude of the reported IgAlevels cannot be correlated to an endpoint titer.Beta 2 Glycoprotein, IgG <20 SGU <9Comment: < 20 ?SGU ? ?Vjsxerdo20-39 SGU ? ?Low Positive> 80 ?SGU ? ?High PositiveThese results were obtained with the [email or web address] Lite B2 GPI IgG DAYNA. B2GPI IgG values obtained with different manufacturers' assay methods may not be?used interchangeably. The magnitude of the reported IgG levels cannot becorrelated to an endpoint titer.Beta 2 Glycoprotein, IgM <20 SMU <9Comment: < 20 ?SMU ? ?Hbfbzrvu32-87 SMU ? ?Low Positive> 80 ?SMU ? ?High PositiveThese results were obtained with the [email or web address] Lite B2 GPI IgM DAYNA. B2GPI IgM values obtained with different manufacturers' assay methods may not be?used interchangeably. The magnitude of the reported IgM levels cannot becorrelated to an endpoint titer.Resulting Agency CCMSpecimen Collected: 04/20/18 ?2:22 PM Last Resulted: 04/21/18 ?6:40 PM LabFlowsheet Order Details View Encounter Lab and Collection Details RoutingResult HistoryANA PANEL BLOOD SCRNOrder: [id number]: Final result ??Visible to patient: No (Not [...] for intervention needed.YE Mccrayeferring Provider: LATASHA HU [[id number]]Allergies As of Date: 08/06/2018 Noted Allergy ReactionIODINE [...] by SHANT ROMERO MD on 08/06/18 Normal [facility] Hepatic Functn Panelon 08-06 Albumin mass conc 4.2 g/dL Normal 3.9-4.9 [facility] Comment on above: Performed By: #### B MP, HFP ####[address] [address] [place], [place] [phone] ALP enzyme act/vol 75 U/L Normal 34-[address] [facility] Comment on above: Performed By: #### B MP, HFP ####[address] [address] [place], [place] [phone] ALT enzyme act/vol 21 U/L Normal 7-[address] [facility] Comment on above: Performed By: #### B BRYANNA, HFP ####[address] [phone] AST enzyme act/vol 21 U/L Normal 13-[address] [facility] Comment on above: Performed By: #### B BRYANNA, HFP ####[address] [phone] Bilirubin mass conc 0.3 mg/dL Normal 0.2-1.3 [facility] Comment on above: Performed By: #### B BRYANNA, HFP ####[address] [phone] Bilirubin,Conjugate d <0.2 Normal <0.2 [facility] Comment on above: Performed By: #### B BRYANNA, HFP ####[address] [phone] Protein mass conc 7.3 g/dL Normal 6.3-8.0 [facility] Comment on above: Performed By: #### B BRYANNA, HFP ####[address] [phone] PROGRESSon 08-06-2018 Protein mass conc HNO ID: [id number] thor: Shant Quinonez: (none)Author Type: PhysicianType: Progress [...] al. Chest 2012, 141:7S-47SNishimura RA, et al. [facility] 2017, 70: 252-289 APTT 23.0 - 32.4 [...] lotoflaboratory APTT reagent in use throughout the [facility]. Platelet Neut Negative Negative Negative DRVVT Screen 32.7 - 46.7 sec 35.1 36.1 42.3 DRVVT Confirm Ratio <1.21 1.10 <1.21 class= rz_g uvm1829 >0.91 <1.21 class= rz_6 qyg8124 >1.06 DRVVT 1:1 Mix 32.7 - 46.7 sec 33.9 36.2 41.3 Hex Phase Screen 45.0 - 59.9 sec 34.7 54.5 Hex Phase Confirm 41.8 - 54.9 sec 32.6 47.7 Hex Phase Delta <9.1 delta sec 2.1 <9.1 delta sec class= rz_6hlt1024 >6.7 APTT Screen 24.4 - 33.4 sec 24.3 33.0CM Immediate PTT 1:1 Mix <33.2 sec 26.3 <33.2 sec class= rz_6 wdl1361 >30.6 Incubated PTT 1:1 Mix <35.0 sec 28.3 <35.0 sec class= rz_6 vra0290 >32.4 Thrombin Time <18.6 sec 17.7 <18.6 sec class= rz_6 ffy2240 >16.1 Interpretation(Lupus Anticoagulant) (NOTE) (NOTE)CMComment: Performing Pathologist: [...] GPL <9 <9CMComment: <10 GPL ? ? Mjktvidt62-23 GPL ? Equivocal>40 GPL ? ? PositiveThe following results were obtained with the [email or web address]e LAVON IgG IIIELISA. Cardiolipin IgG values obtained with the different manufacturers'assay?method s may not be used interchangeably. The magnitude of the reportedIgGlevels cannot be correlated to an endpoint titer. Cardiolipin Ab, IgM 0 - 11 MPL <9 9CMComment: <12 MPL ? ? Uzhpqbek74-98 MPL ? Equivocal>40 MPL ? ? PositiveThe following results were obtained with the [email or web address] Lite LAVON IgM IIIELISA. Cardiolipin IgM values obtained with different manufacturers' assaymethods may not be used interchangeably. The magnitude of the reported IgMlevels cannot be correlated to an endpoint titer. Cardiolipin Ab, IgA 0 - 11 APL <9 <9CMComment: <12 APL ? ? Pvrnihdd71-39 APL ? Equivocal>40 APL ? ? PositiveThe following results were obtained with an [employer] QUANTA Lite LAVON IgA IIIELISA. Cardiolipin IgA values obtained with different manufacturers' assaymethods may not be used interchangeably. The magnitude of the reported IgAlevels cannot be correlated to an endpoint titer. Beta 2 Glycoprotein, IgG <20 SGU <9 <20 SGU class= rz_6 qvd9065 ><9CMComment: < 20 ?SGU ? ?Bhlkwako54-07 SGU ? ?Low Positive> 80 ?SGU ? ?High PositiveThese results were obtained with the [email or web address] Lite B2 GPI IgG DAYNA.B2GPI IgG values obtained with different manufacturers' assay methods maynot be?used interchangeably. The magnitude of the reported IgG levels cannot becorrelated to an endpoint titer. Beta 2 Glycoprotein, IgM <20 SMU <9 <20 SMU class= rz_6 zut4651 ><9CMComment: < 20 ?SMU ? ?Yjomkbkd59-35 SMU ? ?Low Positive> 80 ?SMU ? ?High PositiveThese results were obtained with the [employer] QUANTA Lite B2 GPI IgM DAYNA.B2GPI IgM values obtained with different manufacturers' assay methods maynot be?used interchangeably. The magnitude of the reported IgM levels cannot becorrelated to an endpoint titer.FACTOR V LEIDEN/PCROrder: [id number]: Final result ??Visible to patient: No (Not Released) Next appt:None Dx: Positive dilute Idalia's viper venom...Component 3mo agoFactor V Leiden PCR Report (NOTE)Comment: Performing Pathologist: Alvina Sotomayor M.D., Ph.D.Factor V Leiden Mutation Result: NORMALHOMOCYSTEINEOrder: [id number]: Final result ??Visible to patient: No (Not Released) Next appt:None Dx: Positive dilute Idalia's viper venom... Ref Range AND Units 3mo agoHomocysteine, Serum <15.1 umol/L 9.5Resulting Agency CCMSpecimen Collected: 04/20/18 ?2:22 PM Last Resulted: 04/21/18 ?1:31 PM LabFlowsheet Order Details View Encounter Lab and Collection Details RoutingResult HistoryOther Results from 04/20/2018FACTOR V LEIDEN/PCROrder: [id number]: Final result ??Visible to patient: No (Not [...] and Collection Details RoutingResult HistoryPROTHROMBIN GENE PCROrder: [id number]: Final result ??Visible to patient: No (Not Released) Next appt:None Dx: Positive dilute Idalia's viper venom...Component 3mo agoPT Gene Report (NOTE)Comment: Performing Pathologist: Alvina Sotomayor M.D., Ph.D.PT Gene Mutation Result: NORMAL ?PT Gene Mutation Interpretation: The DNA sample is negative for [id number] point mutation in the 3' untranslated region [...] and Collection Details RoutingResult HistoryPROTEIN S CLOTTABLEOrder: [id number]: Final result ??Visible to patient: No (Not Released) Next appt:None Dx: Positive dilute Idalia's viper venom... Ref Range AND Units 3mo agoProtein S Clottable 59 - 131 % 108Resulting Agency CCMSpecimen Collected: 04/20/18 ?2:22 PM Last Resulted: 04/21/18 ?9:13 AM LabFlowsheet Order Details View Encounter Lab and Collection Details RoutingResult HistoryPROTEIN C FUNCTOrder: [id number]: Final result ??Visible to patient: No (Not Released) Next appt:None Dx: Positive dilute Idalia's viper venom... Ref Range AND Units 3mo agoPro C Fun 76 - 147 % 104Resulting Agency CCMSpecimen Collected: 04/20/18 ?2:22 PM Last Resulted: 04/21/18 ?9:13 AM LabFlowsheet Order Details View Encounter Lab and Collection Details RoutingResult HistoryANTITHROMBIN IIIOrder: [id number]: Final result ??Visible to patient: No (Not Released) Next appt:None Dx: Positive dilute Idalia's viper venom... Ref Range AND Units 3mo agoAntithrombin Assay 84 - 138 % 93Resulting Agency CCMSpecimen Collected: 04/20/18 ?2:22 PM Last Resulted: 04/21/18 ?9:13 AM LabFlowsheet Order Details View Encounter Lab and Collection Details RoutingResult HistoryLUPUS ANTICOAG PLOrder: [id number]: Final result ??Visible to patient: No (Not [...] lotoflaboratory APTT reagent in use throughout the [facility].Platelet Neut Negative NegativeDRVVT Screen 32.7 - 46.7 [...] 9 GPL <9Comment: <10 GPL ? ? Kxrlvmsx39-30 GPL ? Equivocal>40 GPL ? ? PositiveThe following results were obtained with the [employer] QUANTA Lite LAVON IgG IIIELISA. Cardiolipin IgG values obtained with the different manufacturers'assay?method s may not be used interchangeably. The magnitude of the reportedIgGlevels cannot be correlated to an endpoint titer.Cardiolipin Ab, IgM 0 - 11 MPL 9Comment: <12 MPL ? ? Ixhipjff05-65 MPL ? Equivocal>40 MPL ? ? PositiveThe following results were obtained with the [employer] QUANTA Lite LAVON IgM IIIELISA. Cardiolipin IgM values obtained with different manufacturers' assaymethods may not be used interchangeably. The magnitude of the reported IgMlevels cannot be correlated to an endpoint titer.Cardiolipin Ab, IgA 0 - 11 APL <9Comment: <12 APL ? ? Hkzzxniv58-97 APL ? Equivocal>40 APL ? ? PositiveThe following results were obtained with an [employer] QUANTA Lite LAVON IgA IIIELISA. Cardiolipin IgA values obtained with different manufacturers' assaymethods may not be used interchangeably. The magnitude of the reported IgAlevels cannot be correlated to an endpoint titer.Beta 2 Glycoprotein, IgG <20 SGU <9Comment: < 20 ?SGU ? ?Adcpxlek69-04 SGU ? ?Low Positive> 80 ?SGU ? ?High PositiveThese results were obtained with the [employer] QUANTA Lite B2 GPI IgG DAYNA.B2GPI IgG values obtained with different manufacturers' assay methods maynot be?used interchangeably. The magnitude of the reported IgG levels cannot becorrelated to an endpoint titer.Beta 2 Glycoprotein, IgM <20 SMU <9Comment: < 20 ?SMU ? ?Ervbxeif12-93 SMU ? ?Low Positive> 80 ?SMU ? [...] Collection Details RoutingResult HistoryANA PANEL BLOOD SCRNOrder: [id number]: Final result ??Visible to patient: No (Not [...] indication for intervention needed.Shant Romero MD Normal [facility] Remote Abs Gran + CBC (for F HC use only)on 08-06-2018 Absol Gran Count 3.97 k/uL Normal 1.45-7.50 [facility] Erythrocyte distribution width Auto Ratio (RBC) 12.1 % Normal 11.5-15.0 [facility] Hematocrit Auto Volume Fraction (Bld) 35.6 % Low 36.0-46.0 [facility] Hemoglobin mass conc (Bld) 11.6 g/dL Normal 11.5-15.5 [facility] MCH Auto Entitic mass (RBC) 31.1 pG Normal 26.0-34.0 [facility] MCHC Auto mass conc (RBC) 32.6 g/dL Normal 30.5-36.0 [facility] MCV Auto Entitic volume (RBC) 95.4 fL Normal 80.0-100.0 [facility] Platelet mean volume Auto Entitic volume (Bld) 10.4 fL Normal 9.0-12.7 [facility] Platelets Auto #/vol (Bld) 211 10*3/uL Normal 150-400 [facility] RBC Auto #/vol (Bld) 3.73 10*6/uL Low 3.90-5.20 [facility] WBC Auto #/vol (Bld) 6.52 10*3/uL Normal 3.70-11.00 [facility] Basic Metabolic Panlon 07-28 Anion gap 3 molar conc 10 mmol/L Normal 9-18 [facility] Calcium mass conc 9.3 mg/dL Normal 8.5-10.2 [facility] Chloride molar conc 104 mmol/L Normal 97-105 [facility] CO2 molar conc 23 mmol/L Normal 22-30 [facility] Creatinine mass conc 0.70 mg/dL Normal 0.58-0.96 [facility] eGFR- Amer. >[address] [facility] GFR/1.73 sq M predicted among non-blacks MDRD vol rate/area (S/P/Bld) mL/min/{1.73_m2} Normal [facility] Comment on above: Result Comment: eGFR (Estimated [...] Glucose mass conc 101 mg/dL High 74-99 [facility] Potassium molar conc 4.0 mmol/L Normal 3.7-5.1 [facility] Sodium molar conc 137 mmol/L Normal 136-144 [facility] Urea nitrogen mass conc 12 mg/dL Normal 7-21 [facility] Hepatic Functn Panelon 07-28 Albumin mass conc 4.1 g/dL Normal 3.9-4.9 [facility] ALP enzyme act/vol 75 U/L Normal 34-[address] [facility] ALT enzyme act/vol 16 U/L Normal 7-[address] [facility] AST enzyme act/vol 14 U/L Normal 13-[address] [facility] Bilirubin mass conc 0.3 mg/dL Normal 0.2-1.3 [facility] Bilirubin,Conjugate d <0.2 Normal <0.2 [facility] Protein mass conc 7.2 g/dL Normal 6.3-8.0 [facility] Lupus Anticoag Panelon 07-28 aPTT Coag time (Bld) 24.3 s Low 24.4-33.4 [facility] Comment on above: Performed By: #### L UPUSP ####[facility] [place], [place] [phone] aPTT Coag time (Bld) 26.3 s Normal <33.2 [facility] Comment on above: Performed By: #### L UPUSP ####[facility], [place] [phone] aPTT Coag time (Bld) 21.8 s Low 23.0-32.4 [facility] Comment on above: Result Comment: Unfr actionated [...] laboratory APTT reagent in use throughout the [facility]. Performed By: #### L UPUSP ####[facility] [address] [place] [address], [place] [phone] aPTT Coag time (Bld) 28.3 s Normal <35.0 [facility] Comment on above: Performed By: #### L UPUSP ####[facility] [address] [place] [address], [place] [phone] Beta2 Glycoprot IgG <9 Normal <20 [facility] Comment on above: Result Comment: < 20 SGU Uybezooc78-93 SGU Low Positive> 80 SGU High PositiveThese results were obtained with the Soweso QUANTA Lite B2 GPI IgG DAYNA. B2 GPI IgG values obtained with different manufacturers' assay methods may not be used interchangeably. The magnitude of the reported IgG levels cannot be correlated to an endpoint titer. Performed By: #### L UPUSP ####[place] [address] [place] [address] [phone] DRVVT 1:1 Mix 33.9 sec Normal 32.7-46.7 [facility] Comment on above: Performed By: #### L UPUSP ####[place] [address] [address], [place] [phone] DRVVT Confirm Ratio 1.10 Normal <1.21 [facility] Comment on above: Performed By: #### L UPUSP ####[place] [address] [place] [address] [place] [phone] DRVVT Screen 35.1 sec Normal 32.7-46.7 [facility] Comment on above: Performed By: #### L UPUSP ####[place] [address] [place] [address] [phone] Hex Phase Confirm 32.6 sec Low 41.8-54.9 [facility] Comment on above: Performed By: #### L UPUSP ####[place] [address] [address], [place] [phone] Hex Phase Delta 2.1 delta sec Normal <9.[address] [facility] Comment on above: Performed By: #### L UPUSP ####[facility], [place] [phone] Hex Phase Screen 34.7 sec Low 45.0-59.9 [facility] Comment on above: Performed By: #### L UPUSP ####[place] [address] [place] [address] [place] [phone] IgA Cardiolipin Ab. <9 Normal 0-11 [facility] Comment on above: Result Comment: <12 APL Xdgtvocy64-75 APL Equivocal>40 APL PositiveThe following results were obtained with an Inova QUANTA Lite LAVON IgA III DAYNA. Cardiolipin IgA values obtained with different manufacturers' assay methods may not be used interchangeably. The magnitude of the reported IgA levels cannot be correlated to an endpoint titer. Performed By: #### L UPUSP ####[address] [phone] IgG Cardiolipin Ab. <9 Normal 0-9 [facility] Comment on above: Result Comment: <10 GPL [id number] GPL Equivocal>40 GPL PositiveThe following results were obtained with the Inova QUANTA Lite LAVON IgG III DAYNA. Cardiolipin IgG values obtained with the different manufacturers' assay methods may not be used interchangeably. The magnitude of the reported IgG levels cannot be correlated to an endpoint titer. Performed By: #### L UPUSP ####[address] [phone] IgM Cardiolipin Ab. <9 Normal 0-11 [facility] Comment on above: Result Comment: <12 MPL Ughegomf14-40 MPL Equivocal>40 MPL PositiveThe following results were obtained with the Inova QUANTA Lite LAVON IgM III DAYNA. Cardiolipin IgM values obtained with different manufacturers' assay methods may not be used interchangeably. The magnitude of the reported IgM levels cannot be correlated to an endpoint titer. Performed By: #### L UPUSP ####[address] [phone] INR Coag RelTime (Bld) 1.1 {INR} Normal 0.9-1.3 [facility] Comment on above: Result Comment: Maya min K Antagonist (VKA) Therapeutic Range: INR 2 to 3 (Target INR of 2.5)Note: For patients treated with VKA drugs, such as warfarin, the [employer] 2012 Guideline recommends [...] al. Chest 2012, 141:7S-47SNishimura RA, et al. [facility] 2017, 70: 252-289 Performed By: #### L UPUSP ####[place] [address] [place], [place] [phone] Interpretation (NOTE) Normal [facility] Comment on above: Result Comment: Perf orming [...] 74:1185 (1995). Performed By: #### L UPUSP ####[place] [address] [place], [place] [phone] PNP Negative Normal Negative [facility] Comment on above: Performed By: #### L UPUSP ####[place] [address] [place], [place] [phone] Protein mass conc g/dL Normal <20 [facility] Comment on above: Result Comment: < 20 SMU Izwdsyls98-93 SMU Low Positive> 80 SMU High PositiveThese results were obtained with the [email or web address] Lite B2 GPI IgM DAYNA. B2 GPI IgM values obtained with different manufacturers' assay methods may not be used interchangeably. The magnitude of the reported IgM levels cannot be correlated to an endpoint titer. Performed By: #### L UPUSP ####[address] [phone] PT Sec 11.2 sec Normal 9.7-13.0 [facility] Comment on above: Performed By: #### L UPUSP ####[address] [phone] Thrombin Time 17.7 sec Normal <18.6 [facility] Comment on above: Performed By: #### L UPUSP ####[address] [phone] Remote Abs Gran + CBC (for F HC use only)on 07-28-2018 Absol Gran Count 4.19 k/uL Normal 1.45-7.50 [facility] Erythrocyte distribution width Auto Ratio (RBC) 12.4 % Normal 11.5-15.0 [facility] Hematocrit Auto Volume Fraction (Bld) 38.5 % Normal 36.0-46.0 [facility] Hemoglobin mass conc (Bld) 12.5 g/dL Normal 11.5-15.5 [facility] MCH Auto Entitic mass (RBC) 31.1 pG Normal 26.0-34.0 [facility] MCHC Auto mass conc (RBC) 32.5 g/dL Normal 30.5-36.0 [facility] MCV Auto Entitic volume (RBC) 95.8 fL Normal 80.0-100.0 [facility] Platelet mean volume Auto Entitic volume (Bld) 11.1 fL Normal 9.0-12.7 [facility] Platelets Auto #/vol (Bld) 193 10*3/uL Normal 150-400 [facility] RBC Auto #/vol (Bld) 4.02 10*6/uL Normal 3.90-5.20 [facility] WBC Auto #/vol (Bld) 6.67 10*3/uL Normal 3.70-11.00 [facility] Dilute RVVTon 07-08-2018 DRVVT 1:1 Mix 36.2 sec Normal 32.7-46.7 [facility] Comment on above: Performed By: #### D RVVT ####[place] [phone] DRVVT Confirm Ratio 0.91 Normal <1.21 [facility] Comment on above: Performed By: #### D RVVT ####[place] [phone] DRVVT Screen 36.1 sec Normal 32.7-46.7 [facility] Comment on above: Performed By: #### D RVVT ####[place] [phone] ROSANA Panel 1on 04-20-2018 ROSANA by EIA 0.4 OD Ratio Normal [facility] Comment on above: Result Comment: OD R atio is interpreted as follows:Negative <1.0Positive >=1.0 Performed By: #### W SR, PRCFUN, AT3ASY, PRSCLT, SERIMM, HOMCYS, IRON, FERR, B12, SERFOL, ANA1, HSCRP ####[place] [phone] ROSANA by EIA, Qual Negative Normal Negative [facility] Comment on above: Performed By: #### W SR, PRCFUN, AT3ASY, PRSCLT, SERIMM, HOMCYS, IRON, FERR, B12, SERFOL, ANA1, HSCRP ####[address] [phone] Antithrombin Assayon 018 Antithrombin Assay 93 % Normal 84-[address] [facility] Comment on above: Performed By: #### W SR, PRCFUN, AT3ASY, PRSCLT, SERIMM, HOMCYS, IRON, FERR, B12, SERFOL, ANA1, HSCRP ####[address] [phone] Comp Metabolic Panelon 04-20 Albumin mass conc 4.3 g/dL Normal 3.9-4.9 [facility] Comment on above: Performed By: #### W SR, PRCFUN, AT3ASY, PRSCLT, SERIMM, HOMCYS, IRON, FERR, B12, SERFOL, ANA1, HSCRP ####[address] [phone] ALP enzyme act/vol 98 U/L Normal 32-[address] [facility] Comment on above: Performed By: #### W SR, PRCFUN, AT3ASY, PRSCLT, SERIMM, HOMCYS, IRON, FERR, B12, SERFOL, ANA1, HSCRP ####[address] [phone] ALT enzyme act/vol 13 U/L Normal 7-[address] [facility] Comment on above: Performed By: #### W SR, PRCFUN, AT3ASY, PRSCLT, SERIMM, HOMCYS, IRON, FERR, B12, SERFOL, ANA1, HSCRP ####[address] [phone] Anion gap 3 molar conc 9 mmol/L Normal 9-18 [facility] Comment on above: Performed By: #### W SR, PRCFUN, AT3ASY, PRSCLT, SERIMM, HOMCYS, IRON, FERR, B12, SERFOL, ANA1, HSCRP ####[place] [address] [place] [address] [place] [phone] AST enzyme act/vol 14 U/L Normal 13-[address] [facility] Comment on above: Performed By: #### W SR, PRCFUN, AT3ASY, PRSCLT, SERIMM, HOMCYS, IRON, FERR, B12, SERFOL, ANA1, HSCRP ####[address] [place] [phone] Bilirubin mass conc 0.2 mg/dL Normal 0.2-1.3 [facility] Comment on above: Performed By: #### W SR, PRCFUN, AT3ASY, PRSCLT, SERIMM, HOMCYS, IRON, FERR, B12, SERFOL, ANA1, HSCRP ####[place] [phone] Calcium mass conc 9.2 mg/dL Normal 8.5-10.2 [facility] Comment on above: Performed By: #### W SR, PRCFUN, AT3ASY, PRSCLT, SERIMM, HOMCYS, IRON, FERR, B12, SERFOL, ANA1, HSCRP ####[place] [phone] Chloride molar conc 102 mmol/L Normal 97-105 [facility] Comment on above: Performed By: #### W SR, PRCFUN, AT3ASY, PRSCLT, SERIMM, HOMCYS, IRON, FERR, B12, SERFOL, ANA1, HSCRP ####[place] [address] [place] [address] [place] [phone] CO2 molar conc 28 mmol/L Normal 22-30 [facility] Comment on above: Performed By: #### W SR, PRCFUN, AT3ASY, PRSCLT, SERIMM, HOMCYS, IRON, FERR, B12, SERFOL, ANA1, HSCRP ####[address] [place] [phone] Creatinine mass conc 0.96 mg/dL Normal 0.58-0.96 [facility] Comment on above: Performed By: #### W SR, PRCFUN, AT3ASY, PRSCLT, SERIMM, HOMCYS, IRON, FERR, B12, SERFOL, ANA1, HSCRP ####[place] [address] [place], [place] [phone] eGFR- Amer. >[address] [facility] Comment on above: Performed By: #### W SR, PRCFUN, AT3ASY, PRSCLT, SERIMM, HOMCYS, IRON, FERR, B12, SERFOL, ANA1, HSCRP ####[place] [phone] GFR/1.73 sq M predicted among non-blacks MDRD vol rate/area (S/P/Bld) mL/min/{1.73_m2} Normal [facility] Comment on above: Result Comment: eGFR (Estimated [...] HOMCYS, IRON, FERR, B12, SERFOL, ANA1, HSCRP ####[address] [phone] Glucose mass conc 103 mg/dL High 74-99 [facility] Comment on above: Performed By: #### W SR, PRCFUN, AT3ASY, PRSCLT, SERIMM, HOMCYS, IRON, FERR, B12, SERFOL, ANA1, HSCRP ####[address] [phone] Potassium molar conc 3.9 mmol/L Normal 3.7-5.1 [facility] Comment on above: Performed By: #### W SR, PRCFUN, AT3ASY, PRSCLT, SERIMM, HOMCYS, IRON, FERR, B12, SERFOL, ANA1, HSCRP ####[address] [phone] Protein mass conc 7.2 g/dL Normal 6.3-8.0 [facility] Comment on above: Performed By: #### W SR, PRCFUN, AT3ASY, PRSCLT, SERIMM, HOMCYS, IRON, FERR, B12, SERFOL, ANA1, HSCRP ####[address] [phone] Sodium molar conc 139 mmol/L Normal 136-144 [facility] Comment on above: Performed By: #### W SR, PRCFUN, AT3ASY, PRSCLT, SERIMM, HOMCYS, IRON, FERR, B12, SERFOL, ANA1, HSCRP ####[address] [phone] Urea nitrogen mass conc 14 mg/dL Normal 7-21 [facility] Comment on above: Performed By: #### W SR, PRCFUN, AT3ASY, PRSCLT, SERIMM, HOMCYS, IRON, FERR, B12, SERFOL, ANA1, HSCRP ####[address] [phone] Factor V Leiden PCRon 2017 FV Leiden Report (NOTE) Normal [facility] Comment on above: Result Comment: [facility] Pathologist: Alvina Sotomayor M.D., Ph.D.Factor V Leiden [...] hybridization probes. Performed By: #### F VLEI ####[place] [address] [place], [place] [phone] Ferritinon 04-20-2018 Ferritin [Mass/volume] in Serum or Plasma 53.7 ng/mL Normal 14.7-205.1 [facility] Comment on above: Performed By: #### W SR, PRCFUN, AT3ASY, PRSCLT, SERIMM, HOMCYS, IRON, FERR, B12, SERFOL, ANA1, HSCRP ####[address] [phone] Folate, Serumon 04-20-2018 Folate [Mass/volume] in Serum or Plasma 10.0 ng/mL Normal >4.7 [facility] Comment on above: Performed By: #### W SR, PRCFUN, AT3ASY, PRSCLT, SERIMM, HOMCYS, IRON, FERR, B12, SERFOL, ANA1, HSCRP ####[address] [phone] Homocysteineon 04-20-2018 Homocysteine 9.5 umol/L Normal <15.1 [facility] Comment on above: Performed By: #### W SR, PRCFUN, AT3ASY, PRSCLT, SERIMM, HOMCYS, IRON, FERR, B12, SERFOL, ANA1, HSCRP ####[address] [phone] Immunoglobulins GAMon 2017 IgA mass conc 237 mg/dL Normal 78-391 [facility] Comment on above: Performed By: #### W SR, PRCFUN, AT3ASY, PRSCLT, SERIMM, HOMCYS, IRON, FERR, B12, SERFOL, ANA1, HSCRP ####[address] [phone] IgG mass conc 1220 mg/dL Normal 717-1411 [facility] Comment on above: Performed By: #### W SR, PRCFUN, AT3ASY, PRSCLT, SERIMM, HOMCYS, IRON, FERR, B12, SERFOL, ANA1, HSCRP ####[address] [phone] IgM mass conc 139 mg/dL Normal 53-334 [facility] Comment on above: Performed By: #### W SR, PRCFUN, AT3ASY, PRSCLT, SERIMM, HOMCYS, IRON, FERR, B12, SERFOL, ANA1, HSCRP ####[address] [phone] Iron and TIBCon 04-20-2018 Iron mass conc 36 ug/dL Low 41-186 [facility] Comment on above: Performed By: #### W SR, PRCFUN, AT3ASY, PRSCLT, SERIMM, HOMCYS, IRON, FERR, B12, SERFOL, ANA1, HSCRP ####[address] [phone] TIBC 271 ug/dL Normal 232-386 [facility] Comment on above: Performed By: #### W SR, PRCFUN, AT3ASY, PRSCLT, SERIMM, HOMCYS, IRON, FERR, B12, SERFOL, ANA1, HSCRP ####[address] [phone] Transferrin Saturatn 13 % Low 15-57 [facility] Comment on above: Performed By: #### W SR, PRCFUN, AT3ASY, PRSCLT, SERIMM, HOMCYS, IRON, FERR, B12, SERFOL, ANA1, HSCRP ####[address] [place], [place] [phone] LDon 04-20-2018 LD 197 U/L Normal 135-214 [facility] Comment on above: Performed By: #### W SR, PRCFUN, AT3ASY, PRSCLT, SERIMM, HOMCYS, IRON, FERR, B12, SERFOL, ANA1, HSCRP ####[facility] [place], [place] [phone] Lupus Anticoag Panelon 04-20 aPTT Coag time (Bld) 26.7 s Normal 23.0-32.4 [facility] Comment on above: Result Comment: Unfr actionated [...] laboratory APTT reagent in use throughout the [facility]. Performed By: #### L UPUSP ####[address] [phone] aPTT Coag time (Bld) 32.4 s Normal <35.0 [facility] Comment on above: Performed By: #### L UPUSP ####[address] [phone] aPTT Coag time (Bld) 30.6 s Normal <33.2 [facility] Comment on above: Performed By: #### L UPUSP ####[address] [phone] aPTT Coag time (Bld) 33.0 s Normal 24.4-33.4 [facility] Comment on above: Result Comment: Resu lt rechecked. Performed By: #### L UPUSP ####[place] [address] [place] [address], [place] [phone] Beta2 Glycoprot IgG <9 Normal <20 [facility] Comment on above: Result Comment: < 20 SGU Fclhvdny21-60 SGU Low Positive> 80 SGU High PositiveThese results were obtained with the Soweso QUANTA Lite B2 GPI IgG DAYNA. B2 GPI IgG values obtained with different manufacturers' assay methods may not be used interchangeably. The magnitude of the reported IgG levels cannot be correlated to an endpoint titer. Performed By: #### L UPUSP ####[place] [address] [place] [address] [place] [phone] DRVVT 1:1 Mix 41.3 sec Normal 32.7-46.7 [facility] Comment on above: Performed By: #### L UPUSP ####[place] [address] [place] [address], [place] [phone] DRVVT Confirm Ratio 1.06 Normal <1.21 [facility] Comment on above: Performed By: #### L UPUSP ####[place] [address] [place] [address] [place] [phone] DRVVT Screen 42.3 sec Normal 32.7-46.7 [facility] Comment on above: Performed By: #### L UPUSP ####[place] [address] [place] [address] [place] [phone] Hex Phase Confirm 47.7 sec Normal 41.8-54.9 [facility] Comment on above: Performed By: #### L UPUSP ####[place] [address] [address], [place] [phone] Hex Phase Delta 6.7 delta sec Normal <9.[address] [facility] Comment on above: Performed By: #### L UPUSP ####[place] [address] [place] [address], [place] [phone] Hex Phase Screen 54.5 sec Normal 45.0-59.9 [facility] Comment on above: Performed By: #### L UPUSP ####[place] [address] [place], [place] [phone] IgA Cardiolipin Ab. <9 Normal 0-11 [facility] Comment on above: Result Comment: <12 APL Odisqjog74-22 APL Equivocal>40 APL PositiveThe following results were obtained with an Inova QUANTA Lite LAVON IgA III DAYNA. Cardiolipin IgA values obtained with different manufacturers' assay methods may not be used interchangeably. The magnitude of the reported IgA levels cannot be correlated to an endpoint titer. Performed By: #### L UPUSP ####[address] [phone] IgG Cardiolipin Ab. <9 Normal 0-9 [facility] Comment on above: Result Comment: <10 GPL [id number] GPL Equivocal>40 GPL PositiveThe following results were obtained with the Inova QUANTA Lite LAVON IgG III DAYNA. Cardiolipin IgG values obtained with the different manufacturers' assay methods may not be used interchangeably. The magnitude of the reported IgG levels cannot be correlated to an endpoint titer. Performed By: #### L UPUSP ####[address] [phone] IgM Cardiolipin Ab. 9 MPL Normal 0-11 [facility] Comment on above: Result Comment: <12 MPL Ymnfcozt56-13 MPL Equivocal>40 MPL PositiveThe following results were obtained with the Inova QUANTA Lite LAVON IgM III DAYNA. Cardiolipin IgM values obtained with different manufacturers' assay methods may not be used interchangeably. The magnitude of the reported IgM levels cannot be correlated to an endpoint titer. Performed By: #### L UPUSP ####[address] [phone] INR Coag RelTime (Bld) 1.0 {INR} Normal 0.9-1.3 [facility] Comment on above: Result Comment: Maya min K Antagonist (VKA) Therapeutic Range: INR 2 to 3 (Target INR of 2.5)Note: For patients treated with VKA drugs, such as warfarin, the [employer] 2012 Guideline recommends [...] al. Chest 2012, 141:7S-47SNishimura RA, et al. [facility] 2017, 70: 252-289 Performed By: #### L [facility] ####[facility] [place], [place] [phone] Interpretation (NOTE) Normal [facility] Comment on above: Result Comment: Perf orming [...] 74:1185 (1995). Performed By: #### L UPUSP ####[address] [phone] PNP Negative Normal Negative [facility] Comment on above: Performed By: #### L UPUSP ####[address] [phone] Protein mass conc g/dL Normal <20 [facility] Comment on above: Result Comment: < 20 SMU Nftmlkrw94-28 SMU Low Positive> 80 SMU High PositiveThese results were obtained with the [email or web address] Lite B2 GPI IgM DAYNA. B2 GPI IgM values obtained with different manufacturers' assay methods may not be used interchangeably. The magnitude of the reported IgM levels cannot be correlated to an endpoint titer. Performed By: #### L UPUSP ####[address] [phone] PT Sec 10.1 sec Normal 9.7-13.0 [facility] Comment on above: Performed By: #### L UPUSP ####[address] [phone] Thrombin Time 16.1 sec Normal <18.6 [facility] Comment on above: Performed By: #### L UPUSP ####[address] [phone] Protein C Functionalon 04-20 Protein mass conc 104 % Normal 76-147 [facility] Comment on above: Performed By: #### W SR, PRCFUN, AT3ASY, PRSCLT, SERIMM, HOMCYS, IRON, FERR, B12, SERFOL, ANA1, HSCRP ####[place] [address] [place], [place] [phone] Protein S Clottableon 2017 Protein S Clottable 108 % Normal 59-131 [facility] Comment on above: Performed By: #### W SR, PRCFUN, AT3ASY, PRSCLT, SERIMM, HOMCYS, IRON, FERR, B12, SERFOL, ANA1, HSCRP ####[facility] [place], [place] [phone] Prothrombin Gene PCRon 04-20 PT Gene Report (NOTE) Normal [facility] Comment on above: Result Comment: [facility] [place] Path[facility]: Alvina Sotomayor M.D., Ph.D.PT Gene Mutation Result: NORMALPT Gene Mutation Interpretation: The DNA sample is negative for [id number] point mutation in the 3' untranslated region of theprothrombin gene.This is not associated with an increased risk ofvenous thrombosis.Venous thrombosis is a multifactorial disorder, andother causes of venous thrombosis are not excluded.PT Gene Mutation Method: This assay was performed by polymerase chainreaction and fluorescence monitoring using hybridization probes. Performed By: #### P TGEN ####[facility] [place], [place] [phone] Remote CBCDIF (for [facility] use o nly)on 04-20-2018 Abs Baso <0.03 Normal 0.00-0.10 [facility] Abs [place] 0.48 k/uL Normal 0.00-0.86 [facility] Abs Neut 3.86 k/uL Normal 1.45-7.50 [facility] Basophils/100 WBC Auto (Bld) 0.3 % Normal [facility] Eosinophils Auto #/vol (Bld) 0.09 10*3/uL Normal 0.00-0.45 [facility] Eosinophils/100 WBC Auto (Bld) 1.4 % Normal [facility] Erythrocyte distribution width Auto Ratio (RBC) 11.9 % Normal 11.5-15.0 [facility] Hematocrit Auto Volume Fraction (Bld) 37.0 % Normal 36.0-46.0 [facility] Hemoglobin mass conc (Bld) 12.6 g/dL Normal 11.5-15.5 [facility] Lymphocytes Auto #/vol (Bld) 2.07 10*3/uL Normal 1.00-4.00 [facility] Lymphocytes/100 WBC Auto (Bld) 31.7 % Normal [facility] MCH Auto Entitic mass (RBC) 33.2 pG Normal 26.0-34.0 [facility] MCHC Auto mass conc (RBC) 34.1 g/dL Normal 30.5-36.0 [facility] MCV Auto Entitic volume (RBC) 97.4 fL Normal 80.0-100.0 [facility] Monocytes/100 WBC Auto (Bld) 7.4 % Normal [facility] Neutrophils/100 WBC Auto (Bld) 59.2 % Normal [facility] Platelet mean volume Auto Entitic volume (Bld) 10.7 fL Normal 9.0-12.7 [facility] Platelets Auto #/vol (Bld) 226 10*3/uL Normal 150-400 [facility] RBC Auto #/vol (Bld) 3.80 10*6/uL Low 3.90-5.20 [facility] WBC Auto #/vol (Bld) 6.52 10*3/uL Normal 3.70-11.00 [facility] Sed Rate Westergrenon 2017 Sed Rate Westergren 15 mm/hr Normal 0-20 [facility] Comment on above: Performed By: #### W SR, PRCFUN, AT3ASY, PRSCLT, SERIMM, HOMCYS, IRON, FERR, B12, SERFOL, ANA1, HSCRP ####[facility] [address] [place], [place] [phone] Ultra-sensitive CRPon 2017 Protein mass conc 11.1 mg/L High <3.1 [facility] Comment on above: Result Comment: (NOT E)hsCRP < 1.0 mg/L, relative risk is lowhsCRP 1.0-3.0 mg/L, relative risk is averagehsCRP > 3.0 mg/L, relative risk is highReference:Trevin TA, Salvador GA, Raman RW, et al. Markers of Inflammationand Cardiovascular Disease. Application to Clinical and PublicHealth Practice. A Statement for Healthcare Professionals From theCenters for Disease Control and Prevention and the [employer] HeartAssociation. Circulation 2003;107:499-511. Performed By: #### W SR, PRCFUN, AT3ASY, PRSCLT, SERIMM, HOMCYS, IRON, FERR, B12, SERFOL, ANA1, HSCRP ####[facility] [place], [place] [phone] Vitamin B12on 04-20-2018 Cobalamin (Vitamin B12) mass conc 445 pg/mL Normal 232-1245 [facility] Comment on above: Performed By: #### W SR, PRCFUN, AT3ASY, PRSCLT, SERIMM, HOMCYS, IRON, FERR, B12, SERFOL, ANA1, HSCRP ####[facility] [address] [place], [place] [phone] CNOVSPon 04-15-2018 CNOVSP Visit (SP) Office (HEMACL) AZUL ONTIVEROS ([id number]) 1990 [facility] Time Provider Department04/15/18 3:15 PM LATASHA HU HEMACL During your visit today, we recorded the following information about you: Temperature Pulse Respiration Blood pressure 98.8 degrees 82/minute 16/minute 130/83 Weight Height 118.3 kg 1.524 Arun Mills 04/15/2018 3:44 PM SignedPt states that she has been having some abdominal cramping for about 2-3 yearsnow. 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) (primaryencounter diagnosis)Mildly elevated dilute Idalia viper venom time in a otherwise ftfzuxe82-ixiw-uvb female with no history suggestive of bleeding [...] referral to hematologic subspecialist at [facility].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.We'll also check for lupus screen with an ROSANA.Mild anemiaWe'll check iron studies, B-12, folate, sedimentation rate.Visit (SP) Office on 04/15/18-FACTOR V LEIDEN/PCR-PROTHROMBIN GENE PCR-PROTEIN S CLOTTABLE-PROTEIN C FUNCT-ANTITHROMBIN III-LUPUS ANTICOAG PL-B 2 GPI IGG AND TNY-ZNTH-MNAFLSOBDBZ QW-IYJRQRXHTPET-LRN PANEL BLOOD SCRN-IRON + TIBC-FERRITIN BLD-VITAMIN B12 BLOOD-FOLATE SERUM-IMMUNOGLOBULINS YUSRA-LD LACTATE DEHYDRO-SED RATE VIEGDKHGCZ-D-KGPFFEGW ULTRA SEN-ACTIVATED PTT-PROTHROMBIN TIME/PT-CBC + DIFF (FOR REMOTE [facility] USE)-COMP METABOLIC PANEL-ACTIVATED PTT-PROTHROMBIN TIME/PT-B 2 GPI IGG AND KBO-FXUX-BABHFUUXLVP AB-LUPUS ANTICOAG PL Return in about 4 months (around 08/15/2018), or labs on a friday or week., for repeat in 12 weeks. f/u in 14 weeks. . HISTORY OF PRESENT ILLNESS: This is a 27 year old female with limited past medical history of migraineheadaches and endometriosis, follows closely with Dr. Castro, gynecology forhistory of abnormal Pap testing. 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 She then [facility] whichagain showed HGSIL.She is on no medications. She takes a lot of midol and excedrin. She works [employer] in [place].Her mother has a history of cervical cancer [...] plan. I answered allquestions satisfactorily..Rowdy Hu D.O.Medical OncologistSaint [place], [place]Referring Provider: CHAY CASTRO [[id number]]Allergies As of Date: 04/15/2018 Noted Allergy ReactionIODINE 04/15/2018 2 - RashDate Reviewed: 04/15/2018Reviewed by: Zee Mills - Fully AssessedReason for Visit: Consult [173] Cmt: Abnormal labsPrimary Visit Diagnosis: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) [R79.1]Order(s):FACTOR V LEIDEN/PCR [SQFVLEID] Order #: [id number] FUTURE PROTHROMBIN GENE PCR [SQPTGENE] Order #: [id number] FUTURE PROTEIN S CLOTTABLE [SQPRSCLT] Order #: [id number] FUTURE PROTEIN C FUNCT [SQPRCFUN] Order #: [id number] FUTURE ANTITHROMBIN III [CFKT3QLK] Order #: [id number] FUTURE LUPUS ANTICOAG PL [SQLUPUSP] Order #: [id number] FUTURE B 2 GPI IGG AND IGM [YZF5OUGC] Order #: [id number] FUTURE ANTI-CARDIOLIPIN AB [SQCARDIO] Order #: [id number] FUTURE HOMOCYSTEINE [SQHOMCYS] Order #: [id number] FUTURE ROSANA PANEL BLOOD SCRN [SQANA1] Order #: [id number] FUTURE IRON + TIBC [SQIRON] Order #: [id number] FUTURE FERRITIN BLD [SQFERR] Order #: [id number] FUTURE VITAMIN B12 BLOOD [SQB12] Order #: [id number] FUTURE FOLATE SERUM [SQSERFOL] Order #: [id number] FUTURE IMMUNOGLOBULINS YUSRA [SQSERIMM] Order #: [id number] FUTURE LD LACTATE DEHYDRO [SQLD6] Order #: [id number] FUTURE SED RATE WESTERGREN [SQWSR] Order #: [id number] FUTURE C-REACTIVE ULTRA SEN [SQHSCRP] Order #: [id number] FUTURE ACTIVATED PTT [SQPTT] Order #: [id number] FUTURE PROTHROMBIN TIME/PT [SQPT] Order #: [id number] FUTURE CBC + DIFF (FOR REMOTE [facility] USE) [SQRCBCDF] Order #: [id number] FUTURE COMP METABOLIC PANEL [SQCMP] Order #: [id number] FUTURE ACTIVATED PTT [SQPTT] Order #: [id number] FUTURE PROTHROMBIN TIME/PT [SQPT] Order #: [id number] FUTURE B 2 GPI IGG AND IGM [[id number]] Order #: [id number] FUTURE ANTI-CARDIOLIPIN AB [SQCARDIO] Order #: [id number] FUTURE LUPUS ANTICOAG PL [SQLUPUSP] Order #: [id number] FUTUREDisposition: Return in about 4 months (around [...] by LATASHA HU DO on 04/19/18 Normal [facility] PROGRESSon 04-15-2018 Protein mass conc HNO ID: [id number] thor: Latasha Morrison: (none)Author Type: PhysicianType: Progress NotesFiled: 04/19/2018 9:38 AMNote Text:PATIENT NAME: Azul Llanos PacozwilerMRN: [id number] PHYSICIAN: Chay Castro, [id number] [address]YRTNTRD CARE PHYSICIAN: No primary care provider on file.OTHER PHYSICIANS:CHIEF COMPLAINT: 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)ASSESSMENT/PLAN: (R79.1) 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) (primaryencounter diagnosis)Mildly elevated dilute Idalia viper venom time in a otherwise hhafbfp57-jhvf-vba female with no history suggestive of bleeding [...] considered for referral to hematologic subspecialist at [facility].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.We'll also check for lupus screen with an ROSANA.Mild anemiaWe'll check iron studies, B-12, folate, sedimentation rate.Visit (SP) Office on 04/15/18-FACTOR V LEIDEN/PCR-PROTHROMBIN GENE PCR-PROTEIN S CLOTTABLE-PROTEIN C FUNCT-ANTITHROMBIN III-LUPUS ANTICOAG PL-B 2 GPI IGG AND PNK-FPFY-UMGTQDVNDPF WZ-KIJQHZRZMKGO-KFL PANEL BLOOD SCRN-IRON + TIBC-FERRITIN BLD-VITAMIN B12 BLOOD-FOLATE SERUM-IMMUNOGLOBULINS YUSRA-LD LACTATE DEHYDRO-SED RATE UHLSGYNZAF-B-RNJKTATP ULTRA SEN-ACTIVATED PTT-PROTHROMBIN TIME/PT-CBC + DIFF (FOR REMOTE [facility] USE)-COMP METABOLIC PANEL-ACTIVATED PTT-PROTHROMBIN TIME/PT-B 2 GPI IGG AND ITT-UMOR-YVPDBDSXYVA AB-LUPUS ANTICOAG PL Return in about 4 [...] of midol and excedrin. Sheworks in a [employer] in [place].Her mother has a history of cervical cancer [...] plan.I answered all questions satisfactorily..Rowdy Hu D.O.Medical OncologistMer[facility] Vital Signs Date Time Vital Sign Value Performing Clinician Hedy miller 08-15-2023 09:18-0500 Blood Pressure Location Alexx Gupta [facility] [place] 08-15-2023 09:18-0500 Diastolic blood pressure 76 mm[Hg] Alexx Gupta [facility] 08-15-2023 09:18-0500 Heart rate 92 /min Alexx Gupta [facility] 08-15-2023 09:18-0500 Respiratory rate 16 /min Alexx Gupta [facility] 08-15-2023 09:18-0500 Systolic blood pressure 119 mm[Hg] Alexx Gupta [facility] [place] 08-12-2023 11:20-0500 Body temperature 98.06 [degF] Alexx Gupta [facility] 08-12-2023 11:20-0500 Diastolic blood pressure 90 mm[Hg] Alexx Mourany [facility] 08-12-2023 11:20-0500 Heart rate 114 /min Alexx Mourany [facility] 08-12-2023 11:20-0500 Systolic blood pressure 137 mm[Hg] Alexx Mourany [facility] 08-11-2023 13:20-0500 Diastolic blood pressure 85 mm[Hg] Glenn Pakerson [facility] 08-11-2023 13:20-0500 Heart rate 100 /min Glenn Pakerson [facility] 08-11-2023 13:20-0500 SaO2% (BldA) [Mass fraction] 100 % Glenn Nyeofferson [facility] 08-11-2023 13:20-0500 Systolic blood pressure 140 mm[Hg] Glenn Nyeofferson [facility] 08-06-2023 11:15-0500 Heart rate 77 /min Alexx Mourany [facility] 08-06-2023 11:15-0500 SaO2% (BldA) [Mass fraction] 97 % Alexx Mourany [facility] 08-06-2023 11:15-0500 Respiratory rate 16 /min Alexx Mourany [facility] 08-06-2023 11:14-0500 Diastolic blood pressure 87 mm[Hg] Alexx Mourany [facility] 08-06-2023 11:14-0500 Mean blood pressure 98 mm[Hg] Alexx Mourany [facility] 08-06-2023 11:14-0500 Systolic blood pressure 118 mm[Hg] Alexx Mourany [facility] 08-06-2023 09:59-0500 Heart rate 79 /min Alexx Mourany [facility] 08-06-2023 09:59-0500 SaO2% (BldA) [Mass fraction] 94 % Alexx Mourany [facility] 08-06-2023 09:59-0500 Diastolic blood pressure 82 mm[Hg] Alexx Mourany [facility] 08-06-2023 09:59-0500 Mean blood pressure 98 mm[Hg] Alexx Mourany [facility] 08-06-2023 09:59-0500 Systolic blood pressure 129 mm[Hg] Alexx Mourany [facility] 08-06-2023 09:59-0500 Respiratory rate 16 /min Alexx Mourany [facility] 08-06-2023 09:50-0500 Blood Pressure Location Alexx Mourany [facility] 08-06-2023 09:50-0500 Body temperature 98.06 [degF] Alexx Mourany [facility] 08-06-2023 09:50-0500 Diastolic blood pressure 92 mm[Hg] Alexx Mourany [facility] 08-06-2023 09:50-0500 Heart rate 80 /min Alexx Mourany [facility] 08-06-2023 09:50-0500 Mean blood pressure 103 mm[Hg] Alexx Mourany [facility] 08-06-2023 09:50-0500 Respiratory rate 20 /min Alexx Mourany [facility] 08-06-2023 09:50-0500 SaO2% (BldA) [Mass fraction] 93 % Alexx Mourany [facility] 08-06-2023 09:50-0500 Systolic blood pressure 124 mm[Hg] Alexx Mourany [facility] 08-06-2023 09:40-0500 Blood Pressure Location Alexx Mourany [facility] 08-06-2023 09:40-0500 Mean blood pressure 100 mm[Hg] Alexx Mourany [facility] 08-06-2023 09:40-0500 Respiratory rate 20 /min Alexx Mourany [facility] 08-06-2023 09:35-0500 Blood Pressure Location Alexx Mourany [facility] 08-06-2023 09:35-0500 Mean blood pressure 102 mm[Hg] Alexx Mourany [facility] 08-06-2023 09:35-0500 Respiratory rate 24 /min Alexx Mourany [facility] 08-06-2023 09:20-0500 Respiratory rate 19 /min Alexx Mourany [facility] 08-06-2023 06:11-0500 Mean blood pressure 79 mm[Hg] Alexx Mourany [facility] 08-06-2023 06:11-0500 Heart rate 84 /min Alexx Mourany [facility] 08-06-2023 06:08-0500 Body temperature 97.88 [degF] Alexx Mourany [facility] 07-25-2023 09:28-0500 Blood Pressure Location Alexx Mourany [facility] 07-25-2023 09:28-0500 Diastolic blood pressure 74 mm[Hg] Alexx Mourany [facility] 07-25-2023 09:28-0500 Heart rate 86 /min Alexx Mourany [facility] 07-25-2023 09:28-0500 Mean blood pressure 89 mm[Hg] Alexx Mourany [facility] 07-25-2023 09:28-0500 Systolic blood pressure 120 mm[Hg] Alexx Mourany [facility] 07-25-2023 09:28-0500 Heart rate 78 /min Alexx Mourany [facility] 07-25-2023 09:28-0500 SaO2% (BldA) [Mass fraction] 99 % Alexx Mourany [facility] 07-25-2023 09:28-0500 Respiratory rate 18 /min Alexx Mourany [facility] 07-25-2023 09:27-0500 Blood Pressure Location Alexx Mourany [facility] 07-25-2023 09:27-0500 Body temperature 97.88 [degF] Alexx Mourany [facility] 07-25-2023 09:27-0500 Diastolic blood pressure 83 mm[Hg] Alexx Mourany [facility] 07-25-2023 09:27-0500 Mean blood pressure 97 mm[Hg] Alexx Mourany [facility] 07-25-2023 09:27-0500 Systolic blood pressure 125 mm[Hg] Alexx Mourany [facility] 07-21-2023 14:40-0500 Diastolic blood pressure 81 mm[Hg] Alexx Mourany [facility] [place] 07-21-2023 14:40-0500 Heart rate 93 /min Alexx Mariaay [facility] 07-21-2023 14:40-0500 Systolic blood pressure 121 mm[Hg] Alexx Gavinourany [facility] 07-08-2023 13:57-0400 Blood Pressure Location Melissa Castillometz [...] Diastolic blood pressure 68 mm[Hg] Alexx Pena [facility] 06-23-2023 12:53-0400 Heart rate 79 /min Alexx Jean [facility] 06-23-2023 12:53-0400 Mean blood pressure 76 mm[Hg] Alexx Jean [facility] 06-23-2023 12:53-0400 Respiratory rate 24 /min Alexx Jean [facility] 06-23-2023 12:53-0400 SaO2% (BldA) [Mass fraction] 100 % Alexx Jean [facility] 06-23-2023 12:53-0400 Systolic blood pressure 91 mm[Hg] Alexx Jean [facility] 06-23-2023 12:30-0400 Diastolic blood pressure 66 mm[Hg] Alexx Jean [facility] 06-23-2023 12:30-0400 Heart rate 81 /min Alexx Jean [facility] 06-23-2023 12:30-0400 Mean blood pressure 78 mm[Hg] Alexx Jean [facility] 06-23-2023 12:30-0400 Respiratory rate 13 /min Alexx Jean [facility] 06-23-2023 12:30-0400 SaO2% (BldA) [Mass fraction] 100 % Alexx Jean [facility] 06-23-2023 12:30-0400 Systolic blood pressure 102 mm[Hg] Alexx Jean [facility] 06-23-2023 12:00-0400 Diastolic blood pressure 67 mm[Hg] Alexx Jean [facility] 06-23-2023 12:00-0400 Heart rate 70 /min Alexx Jean [facility] 06-23-2023 12:00-0400 Mean blood pressure 83 mm[Hg] Alexx Jean [facility] 06-23-2023 12:00-0400 SaO2% (BldA) [Mass fraction] 99 % Alexx Pena [facility] 06-23-2023 12:00-0400 Systolic blood pressure 115 mm[Hg] Alexx Pena [facility] 06-23-2023 09:50-0400 Respiratory rate 20 /min Alexx Dolle [facility] 06-23-2023 09:23-0400 Body temperature 98.24 [degF] Alexx Pena [facility] 06-23-2023 09:23-0400 Heart rate 81 /min Alexx Pena [employer] [facility] 06-23-2023 09:23-0400 Respiratory rate 16 /min Alexx Pena [facility] 09-14-2022 10:30-0500 Body height 157.48 cm Thania Joseline Other [facility] Other 09-14-2022 10:30-0500 Body mass index (BMI) [Ratio] 49.74 kg/m2 Thania Joseline Other [facility] Other 09-14-2022 10:30-0500 Body temperature 97.7 [degF] Thania Joseline Other [facility] Other 09-14-2022 10:30-0500 Body weight 123.38 kg Thania Joseline Other [facility] Other 09-14-2022 10:30-0500 Diastolic blood pressure 97 mm[Hg] Thania Joseline Other [facility] Other 09-14-2022 10:30-0500 Respiratory rate 18 /min Thania Trevizo Other [facility] Other 09-14-2022 10:30-0500 SaO2% (BldA) [Mass fraction] 100 % Thania Trevizo Other [facility] Other 09-14-2022 10:30-0500 Systolic blood pressure 140 mm[Hg] Thania Trevizo Other [facility] Other 05-31-2022 16:10-0400 Body height 157.48 cm Mayra Astorga Other [facility] Other 05-31-2022 16:10-0400 Body mass index (BMI) [Ratio] 48.98 kg/m2 Mayra Astorga Other [facility] Other 05-31-2022 16:10-0400 Body temperature 97.9 [degF] Mayra Astorga Other [facility] Other 05-31-2022 16:10-0400 Body weight 121.47 kg Mayra Astorga Other [facility] Other 05-31-2022 16:10-0400 Diastolic blood pressure 84 mm[Hg] Mayra Astorga Other [facility] Other 05-31-2022 16:10-0400 Respiratory rate 18 /min Mayra Astorga Other [facility] Other 05-31-2022 16:10-0400 SaO2% (BldA) [Mass fraction] 99 % Mayra Astorga Other [facility] Other 05-31-2022 16:10-9630 Systolic blood pressure 129 mm[Hg] Mayra Astorga Other [facility] Other Encounters Encounter Date Encounter Type Care Provider Facility Start: 09-17-2023 End: 09-17-2023 Patient encounter procedure Glenn Gupta [facility] Start: 09-15-2023 End: 09-15-2023 ambulatory CHAY CASTRO Not Available Start: 08-27-2023 End: 08-27-2023 ambulatory TEZ ANGEL Not Available Start: 08-15-2023 End: 08-16-2023 ambulatory Alexx Gupta Facility:[facility] Start: 08-15-2023 End: 08-15-2023 Patient encounter procedure Alexx Gupta [facility] Start: 08-12-2023 End: 08-13-2023 ambulatory Alexx Gupta Facility:[facility] Start: 08-12-2023 End: 08-12-2023 Patient encounter procedure Alexx Gupta [facility] Start: 08-11-2023 End: 08-12-2023 ambulatory Glenn Gupta Facility[facility] Start: 08-11-2023 End: 08-11-2023 Patient encounter procedure Glenn Gupta [facility] Start: 08-06-2023 End: 08-06-2023 ambulatory Alexx Gupta Facility[facility] Start: 08-06-2023 End: 08-06-2023 Admission to same day surgery center Alexx Gupta [facility] Start: 07-25-2023 End: 07-26-2023 ambulatory Alexx Gupta Facility[facility] Start: 07-25-2023 End: 07-25-2023 Patient encounter procedure Alexx Gupta [facility] Start: 2023 End: 07-25-2023 ambulatory TEZ ANGEL Facility:[facility] Start: 2023 End: 2023 Patient encounter procedure TEZ HANKINSR [facility] Start: 07-21-2023 End: 07-22-2023 ambulatory Alexx Gupta Facility:[facility] Start: 07-21-2023 End: 07-21-2023 Patient encounter procedure Alexx Gupta [facility] Start: 07-18-2023 ambulatory Alexx Gupta Facility:[facility] Start: 07-14-2023 End: 07-15-2023 ambulatory Melissa Nunez Facility[facility] Start: 07-14-2023 End: 07-14-2023 Patient encounter procedure Melissa Nunez [facility] Start: 07-08-2023 End: 07-09-2023 ambulatory Melissa Nunez Facility:[facility] Start: 07-08-2023 End: 07-08-2023 Patient encounter procedure Melissa Nunez [facility] Start: 07-07-2023 End: 07-08-2023 ambulatory TEZ HANKINSR Facility:[facility] Start: 07-07-2023 End: 07-07-2023 Patient encounter procedure Alexx uGpta [facility] Start: 06-25-2023 [facility] Start: 06-23-2023 End: 06-23-2023 Emergency department patient visit Alexx Pena [facility] Start: 06-23-2023 End: 06-23-2023 Emergency department patient visit Alexx Pena [facility] Start: 01-29-[address] CHAY CASTRO . [...] examination without abnormal findings DR TEZ ANGEL [facility] Start: 10-09-2022 End: 10-10-[address] TEZ ANGEL Facility:[facility] Start: 10-09-2022 End: 10-10-2022 Encounter for general adult medical examination without abnormal findings DR TEZ ANGEL Facility:[facility] Start: 09-14-2022 End: 09-14-2022 ambulatory Thania Trevizo Other [facility] Other Start: 09-14-2022 Office outpatient visit 15 minutes Thania Trevizo [facility] Start: 07-23-2022 End: [address] YONAS ANTON . Facility:[facility] Start: 07-16-[address] YONAS ANTON . Faci lity:[facility] Start: 06-04-2022 End: 06-05-[address] YONAS ANTON . Facility:[facility] Start: 05-31-2022 End: 05-31-2022 ambulatory Mayra Astorga Other [facility] Other Start: 05-31-2022 Office outpatient ne w 30 minutes Mayra Astorga [facility] Start: 05-02-2022 End: 05-03-[address] CHAY CASTRO . Facility:[facility] Start: 04-09-2022 End: 04-09-[address] CHAY CASTRO . Facility:[facility] Start: 08-06-2018 End: 08-07-2018 Patient encounter procedure SHANT Lovett NICK [facility] Start: 07-28-2018 End: 07-28-2018 Patient encounter procedure SHANT Bony NICK [facility] Start: 07-28-2018 End: 07-28-2018 Patient encounter procedure LATASHA HU [facility] Start: 07-08-2018 End: 07-08-2018 Patient encounter procedure MINDY GARCIA [facility] Start: 04-20-2018 End: 04-21-2018 Patient encounter procedure LATASHA HU [facility] Start: 04-15-2018 End: 04-20-2018 Patient encounter procedure LATASHA HU [facility] Procedures Date Procedure Procedure Detail Performing Clinician Start: 08-06-2023 Robot assisted lapar oscopic cholecystectomy Alexx Gupta Colposcopy Alexx Pena Fasciotomy of foot Alexx morrell H/O: tubal ligation Alexx meneses Laparoscopy Alexx Pena Loop electrosurgical excision procedure Alexx Pena Immunizations Immunization Date Immunization Notes Care Provider Gracy kidd 12-02-2021 SARS-CoV-2 mRNA (ywhvwxqjhjf-qerx-bbtg ose) vaccine Alexx Gupta [facility] 01-05-2021 SARS-CoV-2 (COVID-19 ) Ad26 vaccine, recombinant Alexx Pena [facility] 12-15-2020 SARS-CoV-2 (COVID-19 ) Ad26 vaccine, recombinant Alexx Pena [facility] 01-22-2002 measles, mumps and rubella virus vaccine Alexx Gupta [facility] NEGATED: Highlighted row has not occurred!07-07-2023 influenza virus vaccine, unspecified formulation Alexx Gupta [facility] Payers Date Payer Category Payer Medicaid [id number] 1990 Unknown [id number] 2.16.84 0.1.059615.3.579.2.593 1989 Unknown [id number] 2.16.84 0.1.416222.3.579.2.593 1989 Unknown [id number] 2.16.84 0.1.601274.3.579.2.593 1989 Unknown [id number] 2.16.84 0.1.226169.3.579.2.593 1989 Unknown [id number] 2.16.84 0.1.782711.3.579.2.593 1989 Unknown [id number] 2.16.84 0.1.247234.3.579.2.593 1989 Unknown [id number] 2.16.84 0.1.347002.3.579.2.593 1989 Unknown [id number] 2.16.84 0.1.671871.3.579.2.593 1989 Unknown [id number] 2.16.84 0.1.349937.3.579.2.593 1989 Unknown [id number] 2.16.84 0.1.406236.3.579.2.593 1989 Unknown [id number] 2.16.84 0.1.146283.3.579.2.593 1989 Unknown [id number] 2.16.84 0.1.810795.3.579.2.593 1989 Unknown [id number] 2.16.8 40.1.772924.3.579.2.727 1989 Unknown [id number] 2.16.8 40.1.750150.3.579.2.727 1989 Unknown [id number] 2.16.8 40.1.165983.3.579.2.727 1989 Unknown [id number] 2.16.8 40.1.355193.3.579.2.727 1989 Unknown [id number] 2.16.8 40.1.455184.3.579.2.727 1989 Unknown [id number] 2.16.8 40.1.384283.3.579.2.727 1989 Unknown [id number] 2.16.8 40.1.195258.3.579.2.727 1989 Unknown [id number] 2.16.8 40.1.753905.3.579.2.727 1989 Unknown [id number] 2.16.8 40.1.264298.3.579.2.727 1989 Unknown [id number] 2.16.8 40.1.190738.3.579.2.727 1989 Unknown [id number] 2.16.8 40.1.161070.3.579.2.727 1989 Unknown [id number] 2.16.8 40.1.229925.3.579.2.727 1989 Unknown [id number] 2.16.8 40.1.247912.3.579.2.727 1989 Unknown [id number] 2.16.840 .1.257026.3.579.2.1259 1989 Unknown [id number] 2.16.840 .1.731784.3.579.2.1259 1959 Unknown [id number] 2.1 6.840.1.419071.19 Social History Date Type Detail Facility Unknown if ever smoked [facility] Other Sex Assigned At [facility] Start: 08-10-2021 Tobacco smoking status Smokeless tobacco user within last 30 days [facility] Start: 07-08-2023 End: 08-15-2023 Tobacco smoking status Never smoked tobacco (finding) [facility] Tobacco smoking status Smoker (finding) [facility] Tobacco Cigarettes [facility] Comment on above: social smoker, coupl e times per month Tobacco smoking status No Smoking Status Entered [facility] Functional Status Date Assessment Result Facility 08-15-2023 Functional Status N/A [facility] [place] 08-11-2023 Functional Status No [facility] 07-25-2023 Functional Status No [facility] 07-08-2023 Functional Status N/A [facility] 06-23-2023 Functional Status N/A [facility] Clinical Notes 05-31-2022 to 08-06-2023 Note Date & Type Note Facility 08-06-2023 Evaluation + Plan note Extrac shankar from: Title:ANES Post-operative Note - General Author: Mauricio Chang Jr., DO Date:08/06/23 Plan Transfer/Discharge: Transfer/Discharge Discharge when meets criteria ( From PACU to Ambulatory Surgery Unit, and To home ). Extracted from: Title:ANES Pre-operative Note - Adult Author:Mauricio Guerrero Jr., DO Date:08/06/23 Plan [employer] [employer] (ASA) physical status classification: Class IV. Anesthetic Preoperative Plan: Anesthesia General. Future Appointments Appointment Date:08/11/2023 01:30:00 PM Scheduled Provider:Glenn Gupta MD [facility] Type:Cardiology New Patient (FT) Appointment Date:08/15/2023 09:20:00 AM Scheduled Provider:Alexx Gupta MD Location:[facility] Appointment Type: Post Op 15 Future Scheduled Tests Laboratory* Fecal WBC Lactoferrin 07/08/23 * Giardia lamblia, Direct Detection EIA 07/08/23 * O & P Exam, Routine 07/08/23 * Clostridium Difficile PCR 07/08/23 * Enteric Panel by PCR 07/08/23 [facility]11-29-2023 Hospital Discharge instructions Patient Education 08/06/2023 09:54:35 [...] Follow these instructions at home: Medicines Take qzys-cyk-dbrjvqc and prescription medicines only as told by [...] to keep your urine pale yellow. ?Take pxfv-scs-zxalqkg or prescription medicines. ?Eat foods that are [...] and water are not available, use hand backrest assembler. ?Change your dressing as told by your [...] provider. Document Revised: 02/26/2022 Document Reviewed: 02/26/2022 [employer] Patient Education 2022 [employer]. Follow Up Care 07/21/2023 15:18:13 With:Alexx Gupta Address: [address] [place] [phone] Business (1) When: Unknown Comments:Appointment has already been scheduled [facility]11-29-2023 NoteHistory and Physical Update H&P Reviewed. Patient [...] Brother. Hypertension: Mother, Father and Brother. TIA: Mother.[facility]11-20-2023 Note [id number] [facility] 07-21-2023 Hospital Discharge instructions Patient Education 07/21/2023 [...] in an area with limited access to: ?Mai, recreation centers, or sidewalks. ?Healthy food choices, such as grocery stores and [employer] [place] markets. What are the signs or symptoms? [...] and how much exercise you get. Take zixf-thg-htwkcsy and prescription medicines only as told by [...] provider. Document Revised: 04/02/2022 Document Reviewed: 04/02/2022 [employer] Patient Education 2022 [employer]. [facility] 10-31-2023 Hospital Discharge instructions Patient Education 07/08/2023 [...] water added (diluted fruit juice). Eat bland, ydsq-re-pkbfjb foods in small amounts as you are able. These foods include bananas, applesauce, rice, lean meats, toast, and crackers. Avoid drinking fluids that contain a lot of sugar or caffeine, such as energy drinks, sports drinks, and soda. Avoid alcohol. Avoid spicy or fatty foods. General instructions Take fapw-ecx-kgjljan and prescription medicines only as told by your health care provider. Rest at home while you recover. Drink enough fluid to keep your urine pale yellow. Breathe slowly and deeply when you feel nauseous. Avoid smelling things that have strong odors. Wash your hands often using soap and water for at least 20 seconds. If soap and water are not available, use hand backrest assembler. Make sure that everyone in your household [...] recommendations for eating and drinking and take wdfp-ecl-avzhrxb and prescription medicinesonly as told by your [...] provider. Document Revised: 03/01/2022 Document Reviewed: 03/01/2022 [employer] Patient Education 2022 [employer]. Follow Up Care 06/25/2023 15:34:03 With:Melissa Nunez CNP Address: When:1 to 2 weeks Comments:Following EGD/Colonoscopy. [facility] 10-31-2023 Evaluation + Plan note Future Scheduled Tests Laboratory* Fecal WBC Lactoferrin 07/08/23 * Giardia lamblia, Direct Detection EIA 07/08/23 * O & P Exam, Routine 07/08/23 * Clostridium Difficile PCR 07/08/23 * Enteric Panel by PCR 07/08/23 Radiology* US Gallbladder 07/08/23 [facility] 10-16-2023 Hospital Discharge instructions Patient [...] medicines. These include steroids, antibiotics, and some agzt-rtb-yqrjxjw medicines, such as aspirin or ibuprofen. Having [...] Follow these instructions at home: Medicines Take xpft-uyh-gqfvhdn and prescription medicines only as told by [...] provider. Document Revised: 12/29/2021 Document Reviewed: 12/29/2021 [employer] Patient Education 2022 [employer]. Follow Up Care 06/23/2023 09:20:57 With:Michael Patino Address: [address], [address] [address] [phone] Business (1) When:06/26/2023 12:35:39 With:TEZ ANGEL Address: [address] [place] [phone] Business (1) When:06/26/2023 12:35:32 [facility]10-16-2023 Evaluation + Plan noteExtracted from: Title:ED Note [...] With Cult Reflex XR Chest Single View [facility]04-02-2023 NotePROCEDURE: US PELVIS AND TRANSVAG, 12/06/2022 10:17 [...] Electronically authenticated by: MEGAN HINOJOSA Date: 2022-12-08 11:58[facility]02-14-2023 NoteCONSULTATION CONSULTATION DATE: 10/22/2022 CHIEF COMPLAINT: Right [...] stopped the steroids for approximately a month.[id number] Evaluation note* Encounter Date Diagnosis Assessment Notes [...] no improvement in 2 to 3 days [employer] Other 11-15-2022 NoteCONSULTATION CONSULTATION DATE: 07/23/2022 CHIEF [...] like to proceed. CC: Tez Angel M.D.[facility] [id number] NoteCONSULTATION PROCEDURE DATE: 07/23/2022 PREOPERATIVE DIAGNOSIS: Scar [...] will be followed up in the office.[facility] 06-27-2022 History general Narrative - Reported* Type Description Date Medical History ANXIETY AND DEPRESSION Medical History GERD Medical History RIGHT FOOT PAIN Surgical History LEP PROCEDURE 2018 Surgical History LAPROSCOPY PROCEDURE 2018 Surgical History MULTIPLE SURGERIES 06/2019 [employer] Other 09-27-2022 NoteCONSULTATION CONSULTATION DATE: 06/04/2022 CHIEF [...] in the office subsequent to authorization. [facility] [id number] Evaluation note* Encounter Date Diagnosis Assessment Notes [...] understanding and is agreeable to treatment plan [employer] Other Evaluation + Plan note Future Appointments Appointment Date:07/08/2023 02:00:00 PM Scheduled Provider:Melissa Nunez CNP Location[facility] Appointment Type:[facility] Follow Up [facility] Evaluation + Plan note Future Appointments Appointment Date:07/21/2023 02:40:00 PM Scheduled Provider:Alexx Gupta MD Location:[facility] Appointment Type:[place] [id number] Future Scheduled Tests Laboratory* Fecal WBC Lactoferrin 07/08/23 * Giardia lamblia, Direct Detection EIA 07/08/23 * O & P Exam, Routine 07/08/23 * Clostridium Difficile PCR 07/08/23 * Enteric Panel by PCR 07/08/23 [facility] Future Appointments Appointment Date:2023 07:00:00 AM Scheduled Provider: [facility] Type:CT Sinus/Orbits/Maxillofacial (FT) Appointment Date:07/25/2023 09:30:00 AM Scheduled Provider: Location:[facility] Appointment Type:Surgical PAT FT Appointment Date:08/06/2023 01:00:00 PM Scheduled Provider: Location:[facility] Appointment Type:Surgery FT Appointment Date:08/11/2023 01:30:00 PM Scheduled Provider:Glenn Gupta MD [facility] Type:Cardiology New Patient (FT) Appointment Date:08/15/2023 09:20:00 AM Scheduled Provider:Alexx Gupta MD Location:[facility] Appointment Type: Post Op 15 Future Scheduled Tests Laboratory* Fecal WBC Lactoferrin 07/08/23 * Giardia lamblia, Direct Detection EIA 07/08/23 * O & P Exam, Routine 07/08/23 * Clostridium Difficile PCR 07/08/23 * Enteric Panel by PCR 07/08/23 Radiology* CT Maxillofacial w/o Contrast 07/24/23 [facility] Evaluation + Plan note Future Appointments Appointment Date:07/25/2023 09:30:00 AM Scheduled Provider: Location:[facility] Appointment Type:Surgical PAT FT Appointment Date:08/06/2023 01:00:00 PM Scheduled Provider: Location:[facility] Appointment Type:Surgery FT Appointment Date:08/11/2023 01:30:00 PM Scheduled Provider:Glenn Gupta MD Location[facility] Appointment Type:Cardiology New Patient (FT) Appointment Date:08/15/2023 09:20:00 AM Scheduled Provider:Alexx Gupta MD Location:[facility] Appointment Type: Post Op 15 Future Scheduled Tests Laboratory* Fecal WBC Lactoferrin 07/08/23 * Giardia lamblia, Direct Detection EIA 07/08/23 * O & P Exam, Routine 07/08/23 * Clostridium Difficile PCR 07/08/23 * Enteric Panel by PCR 07/08/23 [facility] Future Appointments Appointment Date:08/06/2023 01:00:00 PM Scheduled Provider: Location:[facility] Appointment Type:Surgery FT Appointment Date:08/11/2023 01:30:00 PM Scheduled Provider:Glenn Gupta MD Location:.[facility] Clinic Appointment Type:Cardiology New Patient (FT) Appointment Date:08/15/2023 09:20:00 AM Scheduled Provider:Alexx Gupta MD Location:[facility] Appointment Type: Post Op 15 Future Scheduled Tests Laboratory* Fecal WBC Lactoferrin 07/08/23 * Giardia lamblia, Direct Detection EIA 07/08/23 * O & P Exam, Routine 07/08/23 * Clostridium Difficile PCR 07/08/23 * Enteric Panel by PCR 07/08/23 [facility] Future Appointments Appointment Date:08/15/2023 09:20:00 AM Scheduled Provider:Alexx Gupta MD Location:[facility] Appointment Type: Post Op 15 Appointment Date:10/20/2023 03:45:00 PM Scheduled Provider:Glenn Gupta MD [facility] Type:Cardiology Follow Up (FT) Future Scheduled Tests Laboratory* Fecal WBC Lactoferrin 07/08/23 * Giardia lamblia, Direct Detection EIA 07/08/23 * O & P Exam, Routine 07/08/23 * Clostridium Difficile PCR 07/08/23 * Enteric Panel by PCR 07/08/23 Radiology* EC Stress Echo Complete w/ Contrast 08/11/23 [facility] Future Appointments Appointment Date:08/15/2023 09:20:00 AM Scheduled Provider:Alexx Gupta MD Location:[facility] Appointment Type: Established 15 Appointment Date:10/20/2023 03:45:00 PM Scheduled Provider:Glenn Gupta MD [facility] Type:Cardiology Follow Up (FT) Future Scheduled Tests Laboratory* Fecal WBC Lactoferrin 07/08/23 * Giardia lamblia, Direct Detection EIA 07/08/23 * O & P Exam, Routine 07/08/23 * Clostridium Difficile PCR 07/08/23 * Enteric Panel by PCR 07/08/23 Radiology* EC Stress Echo Complete w/ Contrast 08/11/23 [facility] Evaluation + Plan note Future Appointments Appointment Date:10/20/2023 03:45:00 PM Scheduled Provider:Glenn Gupta MD [facility] Type:Cardiology Follow Up (FT) Future Scheduled Tests Laboratory* Fecal WBC Lactoferrin 07/08/23 * Giardia lamblia, Direct Detection EIA 07/08/23 * O & P Exam, Routine 07/08/23 * Clostridium Difficile PCR 07/08/23 * Enteric Panel by PCR 07/08/23 Radiology* EC Stress Echo Complete w/ Contrast 08/11/23 [facility] Evaluation + Plan note Future Appointments Appointment Date:10/20/2023 03:45:00 PM Scheduled Provider:Glenn Gupta MD Location:.[facility] Clinic Appointment Type:Cardiology Follow Up (FT) Future Scheduled Tests Laboratory* Fecal WBC Lactoferrin 07/08/23 * Giardia lamblia, Direct Detection EIA 07/08/23 * O & P Exam, Routine 07/08/23 * Clostridium Difficile PCR 07/08/23 * Enteric Panel by PCR 07/08/23 [facility] N[facility] - Reported* Type Description Date Medical History ANXIETY AND DEPRESSION Medical History GERD Medical History RIGHT FOOT PAIN Surgical History LEP PROCEDURE 2018 Surgical History LAPROSCOPY PROCEDURE 2018 Surgical History MULTIPLE SURGERIES 06/2019 [employer] Other Hospital course Narrative No data available for this section [facility] No data available for this section [facility] Progress note No data available for this section [facility] Summary Purpose Family History No Family History [...] section and content) DATE CREATED AUTHOR 08/17/2018 [facility] DATE CREATED AUTHOR AUTHOR'S ORGANIZ ATION [facility]/16/2023 [facility] DATE CREATED AUTHOR AUTHOR'S ORGANIZ ATION 08/22/2023 [facility] DATE CREATED AUTHOR AUTHOR'S ORGANIZ ATION 09/15/2023 [facility] Specialists EPIC REASON FOR VISIT (unrecogniz ed section and content) SILVER EDGE CONGESTION SORE THROAT H/ACOUGH, CONGESTION Patient Care team informatio n (unrecognized section and content) Personnel Name: TEZ ANGEL MD Address: Address: [address] [place] [address] Personnel Name: TEZ ANGEL MD Address: Address: [address] [place] [address] Personnel Name: TEZ ANGEL MD Address: Address: [address] [place] [address] Personnel Name: TEZ ANGEL MD Address: Address: [address] [place] [address] Personnel Name: TEZ ANGEL MD Address: Address: [address] [place] [address] Personnel Name: TEZ ANGEL MD Address: Address: [address] [place] [address] Personnel Name: TEZ ANGEL MD Address: Address: [address] [place] [address] Personnel Name: TEZ ANGEL MD Address: Address: [address] [place] [address] Personnel Name: TEZ ANGEL MD Address: Address: [address] [place] [address] Personnel Name: TEZ ANGEL MD Address: Address: [address] [place] [address] Personnel Name: TEZ ANGEL MD Address: Address: [address] [place] [address] Personnel Name: TEZ ANGEL MD Address: Address: [address] [place] [address] FOR RECORDS PERTAINING TO PATIENTS WHO ARE [...] BE BASED ON THE PRIMARY CLINICAL RECORDS. [facility]. provides no warranty or guarantee of the accuracy or completeness of information in this document.
[2023-10-01 11:39] LABS: Basophils Percent Auto 0.7 % (0.2-2.0); Eosinophils Absolute Auto 0.1 10^3/uL (0.0-0.7); Eosinophils Percent Auto 1.1 % (0.9-7.0); Hematocrit 38.6 % (36.0-48.0); Hemoglobin 12.1 g/dL (12.0-16.0); Immature Granulocytes Abs Auto 0.01 10^3/uL (0.00-0.03); Immature Granulocytes Pct Auto 0.2 % (0.0-0.5); Lymphocytes Absolute Auto 1.6 10^3/uL (1.2-3.8); Lymphocytes Percent Auto 25.7 % (20.5-60.0); Mean Corpuscular HGB Conc 31.3 g/dL (29.9-35.2); Mean Corpuscular Hemoglobin 30.9 pg (26.7-34.0); Mean Corpuscular Volume 98.5 fL (81.0-99.0); Mean Platelet Volume 10.5 fL (9.5-13.5); Monocytes Absolute Auto 0.5 10^3/uL (0.3-0.8); Monocytes Percent Auto 7.7 % (1.7-12.0); Neutrophils Absolute Auto 3.9 10^3/uL (1.4-6.5); Neutrophils Percent Auto 64.6 % (43.0-75.0); Platelet Count 216 10^3/uL (150-450); Red Blood Count 3.92 10^6/uL (4.20-5.40); Red Cell Distribution Width 12.4 % (11.0-15.0); White Blood Count 6.1 10^3/uL (4.0-11.0)
[2023-10-01 11:50] LABS: HCG Quantitative <1 mIU/mL
[2023-10-01] MEDS: LACTATED RINGER'S SOLUTION 1,000 ML 50 ML IV (12:37)
[2023-10-01] MEDS: SCOPOLAMINE 1 MG/3 DAYS TRANSDERM PATCH 1 PATCH TD (12:55)
[2023-10-01] MEDS: CEFAZOLIN SODIUM/DEXTROSE,ISO 2 GM/50 ML PIGGYBACK IV ×3 (12:58→23:09)
[2023-10-01] MEDS: LACTATED RINGER'S SOLUTION 1,000 ML 75 ML IV (14:59)
--- NOTE | 2023-10-01 15:51 | P.ON_ITS ---
Brief Operative Note Date of procedure: 10/01/23 Pre-op diagnosis: aub, dysmenorrhea, dyspareunia Post-op diagnosis: same as pre-op Procedure: NAME OF PROCEDURE: ? Robotic assisted laparoscopic hysterectomy with cystoscopy PROCEDURE:? The patient was taken back to the operating room, where she was prepped and draped in the normal sterile fashion after being placed in the dorsal lithotomy position.? Patient?s anesthesia was found to be adequate.? Surgical timeout was performed using two patient identifiers.? SCDs were on and in place.? Two grams of Ancef were given prior to the surgery.? Sterile Fuentes catheter was inserted.? Standard size VCare was secured to the uterine cervix and the surgeon changed gloves.? Attention then was turned to the patient's abdomen, where a suprau mbilical incision was then made.? Two S retractors were used to identify the patient?s fascia.? The fascia was then tented up using Aubrie clamps and the patient?s fascia was incised sharply.? Patient?s abdomen was identified and entered bluntly.? The patient had the trocar placed and a pneumoperitoneum was obtained.? Approximately 4 liters of CO2 gas was used.? The camera was then placed through the trocar.? At this time, two robot trocars were placed in the patient?s left and right side, two hand widths from the midline, and this was placed under direct visualization.? Please note absent tubes were seen. The uterine ovarian ligament was identified and transected and ligated using the vessel sealer? The vessel sealer was carried down serially to the broad ligament, to the area of the bladder flap, which was then created anteriorly, and the uterine arteries were skeletonized and sealed using the vessel sealer.? The colpotomy was made using the monopolar cautery on cut, and this was carried circumferentially, posteriorly to anteriorly, until the uterus was amputated.? The specimen was then removed intact through the vagina, without difficulty.? The vagina was then closed using two running V-Loc in a non-lock fashion.? The robot was undocked.? The abdomen was desufflated.? The skin defects were closed using 4-0 Vicryl.? Please note, the fascia was closed using 0 Vicryl.? Sponge, lap and needle counts were correct x2.? Patient was taken to recovery room in stable condition.? The patient was awakened by Anesthesia first.? Patient tolerated procedure well.? cystoscopy performed, intact bladder, efflux noted from both ureters Anesthesia: ABNER Surgeon: Chay Castro Manufacturing Technology Analyst: Elizabeth Fang Estimated blood loss (mL): 150 Pathology: other (cervix, uterus) Condition: stable Disposition: PACU Urinary Catheter Management Urinary Catheter Management Urethral: Cath placed during this visit: no
[2023-10-01] MEDS: OXYCODONE HCL/ACETAMINOPHEN 5MG/325MG 1 TAB PO (16:11)
[2023-10-01] MEDS: LACTATED RINGER'S SOLUTION 1,000 ML 125 ML IV ×2 (20:02→23:10)
[2023-10-01] MEDS: IBUPROFEN 400 MG TABLET 800 MG PO (20:05)
[2023-10-01] MEDS: SIMETHICONE 80 MG TAB.CHEW PO (20:06)
[2023-10-01] MEDS: DOCUSATE SODIUM 100 MG CAPSULE PO (20:06)
[2023-10-02 04:54] VITALS: BP 146/67; PULSE 61; RESP 18; TEMP 36.6; O2SAT 98
[2023-10-02] MEDS: IBUPROFEN 400 MG TABLET 800 MG PO (07:50)
[2023-10-02 07:59] LABS: Basophils Percent Auto 0.1 % (0.2-2.0); Hematocrit 38.2 % (36.0-48.0); Immature Granulocytes Abs Auto 0.02 10^3/uL (0.00-0.03); Immature Granulocytes Pct Auto 0.2 % (0.0-0.5); Lymphocytes Absolute Auto 1.6 10^3/uL (1.2-3.8); Lymphocytes Percent Auto 14.7 % (20.5-60.0); Mean Corpuscular HGB Conc 31.4 g/dL (29.9-35.2); Mean Corpuscular Hemoglobin 31.6 pg (26.7-34.0); Mean Corpuscular Volume 100.5 fL (81.0-99.0); Mean Platelet Volume 11.4 fL (9.5-13.5); Monocytes Absolute Auto 0.6 10^3/uL (0.3-0.8); Neutrophils Absolute Auto 8.5 10^3/uL (1.4-6.5); Platelet Count 185 10^3/uL (150-450); Red Cell Distribution Width 12.5 % (11.0-15.0); White Blood Count 10.8 10^3/uL (4.0-11.0)
== END 2023-10-02 08:06 | disposition home or self-care (01) ==
LOC: SURGOUT 16:01 → MS 17:07
PROVIDERS: PCP Family Medicine; Visit Provider Obstetrics & Gynecology
PROC: (CPT 840; principal; 2023-10-01 12:30)
DX: N92.0 Excessive and frequent menstruation with regular cycle (principal); R10.2 Pelvic and perineal pain; N94.6 Dysmenorrhea, unspecified; N94.10 Unspecified dyspareunia; N72 Inflammatory disease of cervix uteri; K21.9 Gastro-esophageal reflux disease without esophagitis; E03.9 Hypothyroidism, unspecified; F41.1 Generalized anxiety disorder; Z68.43 Body mass index [BMI] 50.0-59.9, adult; F33.9 Major depressive disorder, recurrent, unspecified; E66.01 Morbid (severe) obesity due to excess calories; E28.2 Polycystic ovarian syndrome; E55.9 Vitamin D deficiency, unspecified; F17.210 Nicotine dependence, cigarettes, uncomplicated; Z90.49 Acquired absence of other specified parts of digestive tract; Z98.51 Tubal ligation status
CPT/HCPCS: 58570; 36415; 84702; 85025; 88307; 94667; J0131; J0330; J0690; J1100; J1170; J1885; J2405; J2704; J3010

== ENCOUNTER 2023-10-30 10:41 | Outpatient (OUT) | payer MEDICAID, SELFPAY ==
--- OUTSIDE RECORDS SUMMARY | 2023-10-30 10:48 | XMS_ITS | CCD ---
Author Name Unknown Address [address] [place] [address] Organization [facility] Care Team Providers Care Sap Manager Name Role Phone DEBBIE LATASHA J Unavailable Unavailable CHAY CASTRO Unavailable Unavailable ADAMOWICZ, LATASHA J Unavailable Unavailable [...] Tucker Admitting Unavailable ANTON ., DR YONAS uTcker Attending Unavailable NADERER, DR ETZ Whaley Primary Care Unavailable SATNAM ., DR HAYS Attending Unavailable SATNAM ., DR HAYS Admitting Unavailable NADERER, DR TEZ Whaley Primary Care Unavailable SATNAM ., DR HAYS Consulting Unavailable SATNAM ., DR HAYS Attending Unavailable SATNAM ., DR HAYS Admitting Unavailable NADERER, DR TEZ Whaley Primary Care Unavailable NADERER, DR TEZ Whaley Primary Care Unavailable NADERER, DR TEZ Whaley Consulting Unavailable NADEMERSON, DR TEZ Whaley Attending Unavailable NADERER, DR TEZ Whaley Admitting Unavailable SATNAM ., DR HAYS Attending Unavailable SATNAM ., DR HAYS Admitting Unavailable SATNAM ., DR HAYS Consulting Unavailable NADEMERSON, DR TEZ Whaley Primary Care Unavailable SATNAM ., DR HAYS Attending Unavailable SATNAM ., DR HAYS Admitting Unavailable NADERER, DR TEZ Whaley Primary Care Unavailable SATNAM ., DR HAYS Consulting Unavailable ZIEBER, DR BING Seaman Consulting Unavailable SATNAM ., DR HAYS Attending Unavailable SATNAM ., DR HAYS Admitting Unavailable NADERER, DR TEZ Whaley Primary Care Unavailable SATNAM ., DR HAYS Consulting Unavailable KONSTANMEGAN Consulting Unavailable SATNAM ., DR HAYS Attending [...] ANTON ., DR YONAS Tucker Attending Unavailable ALEGRE NEIL Silva Consulting Unavailable TEZ ANGEL Primary Care Physician CHAY CASTRO Attending Unavailable TEZ ANGEL Attending Unavailable MD Tez Angel Primary Care Provider [phone] Chay Castro Attending Provider Tez Angel MD Primary Care Provider Melissa Nunez Attending Unavailable Alexx Gupta Attending Unavailable Alexx Gupta Attending Unavailable Alexx Gupta Attending Unavailable TZE ANGEL Referring Unavailable Alexx Gupta Attending Unavailable Alexx Gupta Attending Unavailable Melissa Nunez Referring Unavailable Melissa Nunez Attending Unavailable Melissa Nunez Admitting Unavailable TEZ ANGEL Referring Unavailable TEZ ANGEL Attending Unavailable TEZ ANGEL Admitting Unavailable Alexx Pena Attending Unavailable Jean, Alexx Attending Unavailable Alexx Gupta Attending Unavailable Alexx Gupta Admitting Unavailable Alexx Gupta Referring Unavailable Glenn Gupta Attending Glenn Carrington Admitting Unavaila Melissa Meehan Referring Unavailable Glenn Gupta Admitting Unavaila Glenn Izaguirre Attending Unavaila mayank NONE, XXXX Referring Unavailable Alexx Gupta Referring Unavailable Alexx Gupta Attending Unavailable Alexx Gupta Admitting Unavailable Glenn Gupta Referring Unavaila Glenn Izaguirre Attending Chataa Glenn Izaguirre Consulting Unavaila Glenn Izaguirre Admitting Unavaila Glenn Izaguirre Consulting Chataa Glenn Izaguirre Consulting Unavaila Tez Cuevas Primary Care Unavailable Chay Castro Attending Unavailable Chay Castro Admitting Unavailable Allergies Allergy Classification Reported Allergen(s) Allergy Type Date of Onset Reaction(s) Facility (11 sources) Iodine; Translations: [IODINE] Drug Allergy 8 Hives, Itching, Rash, Unknown [facility]ository (18 sources) Acetaminophen / HYDROcodone; Translations: [Vicodin] Drug Allergy Unknown (qualifier value), Vomiting (disorder) [facility] Repository (8 sources) iodinated radiocontrast dyes; Translations: [iodinated radiocontrast agents] Drug allergy Unknown (qualifier value) [facility] [place] (9 sources) steri strips; Translations: [steri strips] Allergy to substance Itching (finding), Eruption of skin (disorder) [facility] (1 source) Acetaminophen / HYDROcodone Drug Allergy 3 GI intolerance [facility] Work Phone: (1 source) Wound Dressing Adhesive Propensity to adverse reactions 3 Hives, Itching, Rash [facility] (1 source) Acetaminophen Drug Allergy 3 [facility] (1 source) HYDROcodone Drug Allergy 3 [facility] Medications Current Medications Medication Drug Class(es) Dates Sig (Normalized) Sig (Original) acetaminophen 325 mg / oxyCODONE hydrochloride 5 mg oral tablet (6 sources) Opioid Agonist Start: 08-12-2023 Percocet 5 mg-325 mg oral tablet 1 tab(s), Oral, q6hr, 12 tab(s), Refill(s) 0, [facility] [address], 157, cm, 08/11/23 13:28:00 EST, Height/Length Dosing, 132.9, kg, 08/11/23 13:28:00 EST, Weight Dosing Start Date: 08/12/23 Status: Ordered Start: 08-06-2023 End: 08-08-2023 Percocet 5 mg-325 mg oral ta blet 1 tab(s), Oral, q6hr as needed for pain, 10 tab(s), Refill(s) 0, [facility] [address], 157.8, cm, 07/26/23 10:03:00 EST, Height/Length Dosing, 129.2, kg, 07/26/23 10:03:00 EST, Weight Dosing Start Date: 08/06/23 Stop Date: 08/08/23 Status: Ordered amoxicillin 500 mg oral capsule (1 source) Penicillin-class Antibacterial Start: 09-14-2022 take 1 capsule by mouth every eight hours Amoxicillin 500 MG 1 capsule Orally three times a day for 10 day(s) Sep, Active 24 hr buPROPion hydrochloride 300 mg extended release oral tablet (20 sources) Aminoketone Start: 10-22-2023 End: 10-22-2023 take 1 tablet by mouth every twenty-four hours in the morning buPROPion XL (Wellbutrin XL) 300 MG 24 hr tablet Indications: Mild recurrent major depression (HCC) (CMS/HCC) Take 1 tablet (300 mg) by mouth in the morning. 90 tablet 3 10/22/2023 Active Start: 07-25-2023 take 1 tablet by zoë th once daily buPROPion 150 mg ER Tab [...] day Active take 1 tablet by zoë every twenty-four hours buPROPion HCl ER (XL) 300 MG 1 tablet in the morning Orally Once a day Active cetirizine hydrochloride 10 mg oral tablet (1 source) Histamine-1 Receptor Antagonist Start: 05-31-2022 take 1 tablet by mouth once daily Cetirizine HCl 10 MG 1 tablet Orally Once a day for 14 days May, Active cholecalciferol 0.05 mg oral tablet (3 sources) Vitamin D cholecalciferol (Vitamin D-3) 50 MCG (1999) tablet take 1 capsule by [facility] every twenty-four hours Vitamin D3 50 MCG (1999) 1 capsule Orally Once a day Active chromium picolinate 1 mg oral tablet (4 sources) Start: 07-08-2023 chromium picol inate 1000 mcg oral tablet Refills(s) 0 Start Date: 07/08/23 Status: Ordered docusate sodium 50 mg / sennosides, prison 8.6 mg oral tablet (2 sources) take [...] May, Active furosemide 40 mg oral tablet (17 sources) Loop Diuretic Start: 08-06-2021 take 1 tablet by mouth once daily as needed for edema Lasix 40 mg Tab 40 mg = 1 tab(s), Oral, Daily, PRN Edema, Refills(s) 0 Start Date: 08/06/21 Status: Ordered gabapentin 100 mg oral capsule (4 sources) Anti-epileptic Agent Start: 08-21-2023 take 1 capsule by mouth once daily gabapentin 100 mg Cap 100 mg = 1 cap(s), Oral, Daily, Refills(s) 0 Start Date: 09/17/23 Status: Ordered levoFLOXacin 750 mg oral tablet (1 source) Quinolone Antimicrobial Start: 10-21-2022 take 1 tablet by mouth in the morning levoFLOXacin (Levaquin) 750 MG tablet Take 1 tablet by mouth in the morning. 0 10/21/2022 Active levothyroxine sodium 0.1 mg oral tablet (20 sources) l-Thyroxine Start: 09-17-2023 take 1 tablet by mouth once daily levothyroxine 100 mcg (0.1 mg) Tab 100 mcg = 1 tab(s), Oral, Daily, Refills(s) 0 Start Date: 09/17/23 Status: Ordered Start: 07-23-2023 take 1 tablet by zoë th in the morning levothyroxine (Synthroid, Levoxyl) 100 MCG tablet Indications: History of hyperthyroidism TAKE 1 TABLET BY MOUTH IN THE MORNING ON AN EMPTY STOMACH 30 tablet 07/23/2023 Active Start: 08-06-2021 take 1 tablet by zoë th once daily Levoxyl 75 mcg (0.075 mg) oral tablet 75 mcg = 1 tab(s), Oral, Daily, Refills(s) 0, Thyroid Start Date: 08/06/21 Status: Ordered LORazepam 0.5 mg oral tablet (7 sources) Benzodiazepine Start: 08-06-2023 take 1 tablet by mouth once as needed for anxiety LORazepam 0.5 mg Tab 0.5 mg = 1 tab(s), Oral, Once, PRN as needed for anxiety Start Date: 08/06/23 Status: Ordered magnesium, chelated 100 mg oral tablet (10 sources) Start: 07-21-2023 take 1 tablet by [...] Ordered meclizine hydrochloride 12.5 mg oral tablet (10 sources) Antiemetic Start: 07-21-2023 take 1 tablet [...] day Active ondansetron 4 mg oral tablet (16 sources) Serotonin-3 Receptor Antagonist Start: 08-10-2021 take [...] pantoprazole 40 mg delayed release oral tablet (17 sources) Proton Pump Inhibitor Start: 08-10-2021 take 1 tablet by mouth once daily Protonix 40 mg Tab-DR 40 mg = 1 tab(s), Oral, Daily, # 90 tab(s), Refills(s) 1, Pharmacy: [facility] [address], 152.4, cm, 08/10/21 14:17:00 EST, [...] Status: Ordered SUMAtriptan 25 mg oral tablet (14 sources) Serotonin-1b and Serotonin-1d Receptor Agonist Start: 08-27-2023 SUMAtriptan (Imitrex) 25 MG tablet Indications: Ocular migraine (CMS/HCC) 1 PO at onset of CADET; May repeat in 2 hours x one 9 tablet 3 08/27/2023 Active Start: 07-07-2023 take 9 tablets by mo ut every two hours SUMAtriptan 25 mg Tab [...] D3 (4 sources) Start: 07-08-2023 Vitamin D3 Calcium, magnesium and zinc., Refills(s) 0 Start Date: 07/08/23 Status: Ordered Vitamin D3 1999 intl units oral Tab (6 sources) Start: 08-06-2021 take 1 tablet by mouth once daily Vitamin D3 1999 intl units oral Tab = 1 tab(s), Oral, Daily Start Date: 08/06/21 Status: Ordered Completed/Discontinued Medications Medication Drug Class(es) Dates Sig (Normalized) Sig (Original) hydrOXYzine hydrochloride 50 mg oral tablet (16 sources) Antihistamine Start: 07-07-2023 hydrOXYzine hydrochloride 50 mg oral tablet 30 EA, 0 Refill(s), TAKE 1 TABLET BY MOUTH FOUR TIMES DAILY NEEDED, Refills(s) 0 Start Date: 07/07/23 Status: [facility] hydrOXYzine HCl 25 MG 1 tablet at bedtim e as needed Orally Once a day Active polyethylene glycol 3350 180029 mg / potassium chloride 1480 mg / sodium bicarbonate 5720 mg / sodium chloride 17380 mg powder for oral solution (12 sources) Osmotic Laxative Start: 07-08-2023 NuLYTELY Quach oral powder for reconstitution See Instructions, 1 EA, Refill(s) 0, Prior to colonoscopy., [facility] #37, 157.5, cm, 07/08/23 14:03:00 EDT, Height/Length Dosing, 129.5, kg, 07/08/23 14:03:00 EDT, Weight Dosing Start Date: 07/08/23 Status: Ordered potassium chloride 20 meq extended release oral tablet (18 sources) Start: 08-06-2021 End: 10-22-2023 take 1 tablet by mouth once daily [...] Status: Ordered topiramate 50 mg oral tablet (14 sources) Start: 07-07-2023 topiramate 50 mg Tab 60 EA, 0 Refill(s), TAKE 1 TABLET BY MOUTH TWICE DAILY, Refills(s) 0 Start Date: 07/07/23 Status: Ordered topiramate (Topa max) 25 MG tablet Topamax 0 Active Vitamin D3 2000 intl units o ral tablet (13 sources) Start: 07-07-2023 Vitamin D3 200 0 intl units oral tablet 30 EA, 0 Refill(s), TAKE 1 TABLET BY MOUTH DAILY, Refills(s) 0 Start Date: 07/07/23 Status: Ordered Problems Active Problems Problem Classification Problem Date Documented Da te Episodic/Chronic Abdominal pain (20 sources) Pelvic and perineal pain; Translations: [Epigastric pain] Onset: 3 Episodic Anxiety disorders (15 sources) Anxiety; Translations: [Generalized anxiety disorder] Onset: 3 08-06-2021 Chronic Biliary tract disease (17 sources) Biliary calculus; Translations: [Cholelithiasis without obstruction] Onset: 3 08-12-2021 Episodic Cancer of cervix (14 sources) High grade squamous intraepithelial lesion on cervical Papanicolaou smear 08-06-2021 Episodic Deficiency and other anemia (14 sources) Anemia 08-06-2021 Episodic Diabetes mellitus without complication (14 sources) Prediabetes 08-06-2021 Episodic Endometriosis (1 source) Endometriosis (clinical); Translations: [Endometriosis, unspecified] Onset: 3 03-21-2023 Chronic Esophageal disorders (15 sources) Gastroesophageal reflux disease; Translations: [Gastroesophageal reflux disease without esophagitis] Onset: 3 08-10-2021 Chronic Gastritis and duodenitis (1 source) Gastritis; Translations: [Gastritis, unspecified, without bleeding] Onset: 3 Episodic Gastrointestinal hemorrhage (13 sources) Hemorrhage of rectum and anus; Translations: [Hemorrhage of anus and rectum] Onset: 3 Episodic Headache; including migraine (9 sources) Migraine; 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] Onset: 3 07-25-2023 Chronic Headache; including migraine (1 source) Headache; Translations: [Headache, unspecified] Onset: 4 Episodic Immunizations and screening for infectious disease (7 sources) Contact with and (suspected) exposure to other viral communicable diseases; Translations: [Encounter for screening for human papillomavirus (HPV)] Onset: 2 Episodic Menstrual disorders (3 sources) Excessive and frequent menstruation with regular cycle; Translations: [Dysmenorrhea] Onset: 3 03-21-2023 Chronic Mood disorders (10 sources) Major depressive disorder; Translations: [Recurrent major depressive episodes, mild ] Onset: 3 07-25-2023 Chronic Nausea and vomiting (13 sources) Nausea; Translations: [Nausea] Onset: 3 Episodic Nutritional deficiencies (16 sources) Vitamin D deficiency, unspecified; Translations: [Vitamin D deficiency] Onset: 3 08-06-2021 Chronic Other acquired deformities (1 source) Equinus contracture of the ankle; Translations: [Contracture, right ankle] Onset: 3 03-21-2023 Chronic Other connective tissue disease (5 sources) Pain in right foot; Translations: [PAIN IN RIGHT FOOT] Onset: 2 Episodic Other diseases of veins and lymphatics (1 source) Lymphedema, not elsewhere classified; Translations: [LYMPHEDEMA NOT ELSEWHERE CLASSIFIED] Onset: 2 Chronic Other endocrine disorders (15 sources) Polycystic ovary syndrome; Translations: [Polycystic ovarian syndrome] Onset: 3 08-06-2021 Chronic Other female genital disorders (1 source) Dyspareunia due to non-psychogenic cause in the female; Translations: [Other specified dyspareunia] Onset: 3 03-21-2023 Chronic Other female genital disorders (1 source) Abnormal uterine bleeding; Translations: [Abnormal uterine and vaginal bleeding, unspecified] Onset: 4 Chronic Other gastrointestinal disorders (1 source) Digestive system finding; Translations: [Other specified symptoms and signs involving the digestive system and abdomen] Onset: 3 Episodic Other gastrointestinal disorders (12 sources) Irregular bowel habits 07-08-2023 Episodic Other nervous system disorders (4 sources) Other specified mononeuropathies of right lower limb; Translations: [OTH SPEC MONONEUROPATH RT LOW LIMB] Onset: 2 Chronic Other nervous system disorders (1 source) Other specified mononeuropathies; Translations: [OTHER SPECIFIED MONONEUROPATHIES] Onset: 2 Chronic Other nervous system disorders (15 sources) Entrapment neuropathy of lower limb; Translations: [Unspecified mononeuropathy of right lower limb] Onset: 3 08-06-2021 Chronic Other nervous system disorders (1 source) Complex regional pain syndrome of lower limb; Translations: [Complex regional pain syndrome I of unspecified lower limb] Onset: 3 03-21-2023 Chronic Other nervous system disorders (1 source) Right tarsal tunnel syndrome; Translations: [Tarsal tunnel syndrome, right lower limb] Onset: 3 03-21-2023 Chronic Other nutritional; endocrine; and metabolic disorders (1 source) Obesity, unspecified; Translations: [OBESITY UNSPECIFIED] Onset: 2 Chronic Other nutritional; endocrine; and metabolic disorders (15 sources) Body mass index 40+ - severely obese; Translations: [Body mass index (BMI) 50.0-59.9, adult] Onset: 3 08-10-2021 Chronic Other nutritional; endocrine; and metabolic disorders (15 sources) Morbid obesity; Translations: [Morbid (severe) obesity due to excess calories] Onset: 3 08-06-2021 Chronic Other screening for suspected conditions (not mental disorders or infectious disease) (20 sources) Abnormal coagulation profile; Translations: [Abnormal results of thyroid function studies] Onset: 8 Episodic Other upper respiratory infections (1 source) Acute sinusitis, unspecified Episodic Otitis media and related conditions (1 source) Other acute nonsuppurative otitis media, bilateral Episodic Residual codes; unclassified (2 sources) Bilateral lower limb edema; Translations: [Localized edema] Onset: 3 10-22-2023 Episodic Substance-related disorders (14 sources) Smoker 06-23-2023 Chronic Comment on above: Added secondary to d ocumentation in Social History. Thyroid disorders (15 sources) Hypothyroidism; Translations: [Hypothyroidism, unspecified] Onset: 3 08-06-2021 Chronic Unclassified (1 source) Patient on antidepressant monitoring plan Onset: 4 10-22-2023 Unclassified (1 source) Baseline PHQ-9 Onset: 4 10-22-2023 Varicose veins of lower extremity (14 sources) Varicose veins of lower extremity 08-06-2021 Episodic Viral infection (14 sources) Genital warts 08-06-2021 Episodic Past or Other Problems Problem Classification Problem Date Documented Date Episodic/Chronic Complications of surgical procedures or medical care (1 source) Motion sickness; Translations: [Other complications of anesthesia, initial encounter] Onset: 03-21-2023 03-21-2023 Episodic Conditions associated with dizziness or vertigo (1 source) Vertigo; Translations: [Dizziness and giddiness] Onset: 03-21-2023 03-21-2023 Episodic Other connective tissue disease (4 sources) Other muscle spasm; Translations: [OTHER MUSCLE SPASM] Onset: 06-04-2022 Episodic Other connective tissue disease (1 source) Myalgia, unspecified site; Translations: [MYALGIA UNSPECIFIED SITE] Onset: 06-07-2022 Episodic Other connective tissue disease (1 source) Inflammatory neuropathy ; 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, unspecified] Onset: 03-21-2023 03-21-2023 Episodic Other connective tissue disease (1 source) Plantar fasciitis; Translations: [Plantar fascial fibromatosis] Onset: 03-21-2023 03-21-2023 Episodic Other female genital disorders (5 sources) Other specified noninflammatory disorders of vagina; Translations: [OTH SPEC NONINFLAMMATORY D/O VAGINA] Onset: 04-12-2022 Episodic Other female genital disorders (1 source) Dysplasia of cervix; Translations: [Dysplasia of cervix uteri, unspecified] Onset: 03-21-2023 03-21-2023 Episodic Other injuries and conditions due to external causes (1 source) At risk for falls ; Translations: [History of falling] Onset: 03-21-2023 03-21-2023 Episodic Other lower respiratory disease (1 source) Snoring; Translations: [Snoring] Onset: 03-21-2023 03-21-2023 Episodic Other nervous system disorders (1 source) Difficulty walking; Translations: [Difficulty in walking, not elsewhere classified] Onset: 03-21-2023 Resolved: 08-27-2023 08-27-2023 Chronic Other skin disorders (1 source) Scar conditions and fibrosis of skin; Translations: [SCAR CONDITIONS AND FIBROSIS SKIN] Onset: 07-27-2022 Episodic Residual codes; unclassified (1 source) Other specified postprocedural states; Translations: [OTH SPECIFIED POSTPROCEDURAL STATES] Onset: 06-07-2022 Episodic Spondylosis; intervertebral disc disorders; other back problems (1 source) Backache; Translations: [Dorsalgia, unspecified] Onset: 03-21-2023 03-21-2023 Episodic Results Test Name Value Interpretation Reference Range Facility ABO/Rhon 10-25-2023 ABO/Rh Negative Invalid Interpretation Code [facility] Comment on above: Performed By: #### 2 [id number], [id number], [id number], [id number] ####[facility] [address] [place] [address] ABO/Rh History Checkon 10-25 ABO/Rh History Check Type verified by second s Normal [facility] Comment on above: Performed By: #### 2 [id number], [id number], [id number], [id number] ####[facility] [address] [place] [address] ABO/Rh Retypeon 10-25-2023 ABO/Rh Retype Interp Negative Invalid Interpretation Code [facility] Comment on above: Performed By: #### 1 [id number], [id number], [id number], [id number], [id number] ####[facility] [address] [place] [address] ABSCon 10-25-2023 ABSC Gel Interp Negative Normal [facility] Comment on above: Performed By: #### 2 [id number], [id number], [id number], [id number] ####[address] [address] BLOOD BANKOrdered By: Bridget Baron on 10-25-2023 ABO/Rh Interp Negative Invalid Interpretation Code [facility] BB Subsection ABSC Gel Interp Negative (10/25/23 2:57 PM) Normal [facility] BB Subsection ABO/Rh Retype Interp Negative Invalid Interpretation Code [facility] BB Subsection Blood Bank ID#on 10-25-2023 BBID# [id number] Invalid Interpretation Code [facility] Comment on above: Performed By: #### 2 [id number], [id number], [id number], [id number] ####[address] [address] CBC w/ Auto Diffon Basophil Absolute 0.0 E9/L Normal 0.0-0.2 [facility] Comment on above: Performed By: #### 1 [id number], [id number], 8747614, [id number], [id number] ####[place] [address] [place] [address] Basophils/100 WBC (Bld) 0.5 % Normal 0.0-2.0 [facility] Comment on above: Performed By: #### 1 9341877, 9905791, 6770598, [id number], [id number] ####[address] [address] Eos Absolute 0.1 E9/L Normal 0.0-0.5 [facility] Comment on above: Performed By: #### 1 [id number], 4891580, 4901685, [id number], [id number] ####[address] [address] [place] [id number] Eosinophils/100 WBC (Bld) 1.6 % Normal 0.0-8.0 [facility] Comment on above: Performed By: #### 1 5353415, 2024828, 1233785, [id number], [id number] ####[place] [address] [place] [id number] Erythrocyte distribution width (RBC) [Ratio] 13.1 % Normal 10.9-14.2 [facility] Comment on above: Performed By: #### 1 [id number], 0906344, 9700347, 52673069, [id number] ####[place] [id number] Hematocrit (Bld) [Volume fraction] 38.0 % Normal 34.0-46.0 [facility] Comment on above: Performed By: #### 1 9110094, 9571646, 7391161, 03776024, 63536108 ####[place] [id number] Hemoglobin (Bld) [Mass/Vol] 12.9 g/dL Normal 12.0-16.0 [facility] Comment on above: Performed By: #### 1 [id number], 0013556, 7667249, 86078944, 09545515 ####[place] [address] [place] [id number] Lymph Absolute 1.4 E9/L Normal 1.0-4.0 [facility] Comment on above: Performed By: #### 1 8815220, 3536991, 9947594, 09342708, [id number] ####[place] [address] Lymphocytes/100 WBC (Bld) 28.4 % Normal 14.0-50.0 [facility] Comment on above: Performed By: #### 1 0295156, 0585972, 4968303, 99715334, [id number] ####[facility] [address] [place] [address] MCH (RBC) [Entitic mass] 31.7 pg Normal 27.0-34.0 [facility] Comment on above: Performed By: #### 1 5161795, 1613050, 5823445, 63496472, 37035923 ####[address] [address] MCHC (RBC) [Mass/Vol] 33.7 g/dL Normal 31.4-36.0 [facility] Comment on above: Performed By: #### 1 3748647, 3903105, 6987461, 97203434, 47876757 ####[address] [address] MCV (RBC) [Entitic vol] 94.0 fL Normal 80.0-100.0 [facility] Comment on above: Performed By: #### 1 2302728, 4875326, 3546220, 85850200, 14670570 ####[address] [address] [place] Absolute 0.4 E9/L Normal 0.2-1.0 [facility] Comment on above: Performed By: #### 1 0428420, 9496106, 1057284, 10577213, 08581433 ####[address] [address] Monocytes/100 WBC (Bld) 8.0 % Normal 4.0-14.0 [facility] Comment on above: Performed By: #### 1 3788929, 1243452, 9871631, 50372272, 53469491 ####[address] [address] Neutro Absolute 3.1 E9/L Normal 2.0-7.5 [facility] Comment on above: Performed By: #### 1 0266196, 7797836, 2705428, 45595118, [id number] ####[facility] [address] [place] [address] Neutro Auto 61.5 % Normal 36.0-75.0 [facility] Comment on above: Performed By: #### 1 4064962, 4537500, 7709719, 80407086, 26670549 ####[facility] [address] [place] [address] Platelet 221.0 E9/L Normal 150.0-500. 0 [facility] Comment on above: Performed By: #### 1 3243242, 6824850, 5377612, 11662915, 60996266 ####[address] [address] Platelet mean volume (Bld) [Entitic vol] 8.9 fL Normal 6.4-10.8 [facility] Comment on above: Performed By: #### 1 4283470, 4275317, 3115710, 55633790, 62600784 ####[address] [place] [address] RBC 4.1 E12/L Low 4.3-5.9 [facility] Comment on above: Performed By: #### 1 [id number], 1210555, 0731128, [id number], [id number] ####[address] [place] [address] WBC 5.0 E9/L Normal 4.0-11.0 [facility] Comment on above: Performed By: #### 1 [id number], 7739731, 8242067, [id number], [id number] ####[address] [address] CHEMISTRYOrdered By: SYSTEM SYSTEM on 10-25-2023 Albumin [Mass/Vol] 4.1 g/dL Normal 3.3 - 5.0 gm/dL Remisol Chem Albumin/Globulin [Mass ratio] 1.5 {ratio} Normal 1.1 - 2.2 Remisol Chem Alk Phos 96 [iU]/d Normal 21 - 98 Int._Unit/ L Remisol Chem ALT 12 [iU]/d Normal 6 - 46 Int._Unit/ L Remisol Chem Anion gap [Moles/Vol] 10 mmol/L Normal 6 - 16 mEq/L Remisol Chem AST 13 [iU]/d Normal 5 - 43 Int._Unit/ L Remisol Chem Bili Total 0.3 mg/dL Normal 0.0 - 1.1 mg/dL Remisol Chem Calcium [Mass/Vol] 9.3 mg/dL Normal 8.9 - 11. 1 mg/dL Remisol Chem Chloride [Moles/Vol] 108 mmol/L Normal 101 - 1 11 mmol/L Remisol Chem CO2 [Moles/Vol] 23 mmol/L Normal 21 - 31 mmol/L Remisol Chem Creatinine [Mass/Vol] 1.1 mg/dL Normal 0.5 - 1.3 mg/dL Remisol Chem eGFR 68 mL/min/1.73 m2 Normal >=59mL/min /1.73 m2 Remisol Chem Globulin (S) [Mass/Vol] 2.8 g/dL Normal 1.4 - 4.0 gm/dL Remisol Chem Glucose [Mass/Vol] 106 mg/dL Normal 55 - 199 mg/dL Remisol Chem Potassium [Moles/Vol] 3.8 mmol/L Normal 3.5 - 5.3 mmol/L Remisol Chem Protein [Mass/Vol] 6.9 g/dL Normal 6.0 - 7.8 gm/dL Remisol Chem Sodium [Moles/Vol] 137 mmol/L Normal 135 - 145 mmol/L Remisol Chem Urea nitrogen [Mass/Vol] 13 mg/dL Normal 5 - 21 mg/dL Remisol Chem Urea nitrogen/Creatinine [Mass ratio] 12 mg/mg Normal 10 - 20 Remisol Chem CMPon 10-25-2023 Albumin [Mass/Vol] 4.1 g/dL Normal 3.3-5.0 [facility] Comment on above: Performed By: #### 1 [id number], 7244555, 1633610, 70646213, [id number] ####[facility] [address] [place] [address] Albumin/Globulin [Mass ratio] 1.5 {ratio} Normal 1.1-2.2 [facility] Comment on above: Performed By: #### 1 5539056, 3470388, 9564485, 29983194, 86866109 ####[facility] [address] [place] [address] Alk Phos 96 Int._Unit/L Normal 21-98 [facility] Comment on above: Performed By: #### 1 8978753, 7839868, 6504349, 00802612, [id number] ####[address] [address] ALT 12 Int._Unit/L Normal 6-46 [facility] Comment on above: Performed By: #### 1 4790752, 8251390, 2131853, 35644460, 11940323 ####[address] [address] Anion gap [Moles/Vol] 10 mmol/L Normal 6-16 [facility] Comment on above: Performed By: #### 1 6131636, 0454663, 5191154, 55030615, 21037777 ####[address] [address] AST 13 Int._Unit/L Normal 5-43 [facility] Comment on above: Performed By: #### 1 3231568, 4719698, 5074953, 75212923, 88999302 ####[facility] [address] [place] [address] Bili Total 0.3 mg/dL Normal 0.0-1.1 [facility] Comment on above: Performed By: #### 1 0759807, 7541492, 4564007, 84590683, 98402295 ####[facility] [address] [place] [address] BUN/Creat Ratio 12 No Units Normal 10-20 [facility] Comment on above: Performed By: #### 1 9116568, 7631599, 4758310, 37855977, 06702433 ####[facility] [address] [place] [address] Calcium [Mass/Vol] 9.3 mg/dL Normal 8.9-11.1 [facility] Comment on above: Performed By: #### 1 2833300, 5631187, 4865851, 08810137, 75201940 ####[facility] [address] [place] [address] Chloride [Moles/Vol] 108 mmol/L Normal 101-111 [facility] Comment on above: Performed By: #### 1 5916678, 2334754, 3639403, 43916756, 49045667 ####[address] [place] [address] CO2 [Moles/Vol] 23 mmol/L Normal 21-31 [facility] Comment on above: Performed By: #### 1 0567115, 6236473, 7354881, 98122818, 26722483 ####[facility] [address] [place] [address] Creatinine [Mass/Vol] 1.1 mg/dL Normal 0.5-1.3 [facility] Comment on above: Performed By: #### 1 5424365, 8717263, 6518234, 80917062, 79928820 ####[facility] [address] [place] [address] Globulin (S) [Mass/Vol] 2.8 g/dL Normal 1.4-4.0 [facility] Comment on above: Performed By: #### 1 9451816, 5317224, 3393627, 44187038, 86487800 ####[facility] [address] [place] [address] Glucose [Mass/Vol] 106 mg/dL Normal 55-199 [facility] Comment on above: Performed By: #### 1 8781800, 0019090, 7408391, 00489327, 85614877 ####[address] [place] [address] Potassium [Moles/Vol] 3.8 mmol/L Normal 3.5-5.3 [facility] Comment on above: Performed By: #### 1 0604544, 2079632, 1666919, 11607142, 82244681 ####[facility] [address] [place] [address] Protein [Mass/Vol] 6.9 g/dL Normal 6.0-7.8 [facility] Comment on above: Performed By: #### 1 8934321, 3595425, 3906715, 13586073, 79000281 ####[facility] [address] [place] [address] Sodium [Moles/Vol] 137 mmol/L Normal 135-145 [facility] Comment on above: Performed By: #### 1 0389246, 1511610, 1128832, 01958682, 59315478 ####[facility] [address] [place] [address] Urea nitrogen [Mass/Vol] 13 mg/dL Normal 5-21 [facility] Comment on above: Performed By: #### 1 6778843, 1213715, 2111397, 62014469, 25771610 ####[facility] [address] [place] [address] COAGULATIONOrdered By: Pool Sykes on 10-25-2023 aPTT Coag (PPP) [Time] 31.3 s Normal 25.1 - 36.5 second(s) [facility] Comment on above: Interpretive Data: P arameter 15 days - 4 weeks 1 - 5 months 6 - 11 months 1 - 5 years 6 - 10 years 11 - 17 years PTT Mean: 35.4 (27.6-45.6) Mean: 33.5 (24.8-40.7) Mean: 32.4 (25.1-40.7) Mean: 31.6 (24.0-39.2) Mean: 31.6 (26.9-38.7) Mean: 31.0 (24.6-38.4) Pediatric Reference ranges were obtained from a study by Jeevan Alonso et al. prepared from 1437 samples obtained at 7 different centers using the same coagulation reagent and instrumentation as [facility]. Currently there are no coagulation studies available worldwide for children to 14 days, and no normal ranges. Heparin therapeutic range (represented by Anti-Factor Xa activity of 0.2 - 0.4 U/mL) corresponds to PTT of 56.6 - 109.0 sec. INR Coag (PPP) [Relative time] 1.11 {INR} Invalid Interpretation Code [facility] Comment on above: Interpretive Data: I NR results are specifically intended to assess patients stabilized on long-term Anticoagulation therapy suggested INR s Less Intensive Anticoagulation 2.0 3.0 Conventional Range 3.0 4.5 PT Coag (PPP) [Time] 12.4 s Normal 9.4 - 1 2.5 second(s) [facility] Comment on above: Interpretive Data: 1 5 days - 4 weeks 1 - 5 months 6 -11 months 1 5 years 6 10 years 11 -17 years Mean: 11.2 (9.5 12.6) Mean: 11.0 (9.7 12.8) Mean: 11.0 (9.8 13.0) Mean: 11.3 (9.9 13.4) Mean: 11.7 (10.0 14.6) Mean: 11.8 (10.0 - 14.1) Pediatric Reference ranges were obtained from a study by Jeevan Alonso et al. prepared from 1437 samples obtained at 7 different centers using the same coagulation reagent and instrumentation as [facility]. Currently there are no coagulation studies available worldwide for children to 14 days, and no normal ranges. Consent for Treatmenton 10-09 Consent for Treatment [id number] Normal [facility] Discharge Instructionson Discharge Instructions [id number] Normal [facility] ED Clinical Summaryon 2023 ED Clinical Summary (Inserted Image. Zenaida ble to display) [address] [address] ED Clinical Summary Person Information Name: AZUL ONTIVEROS [facility] Age: 33 Years : 1990 Sex: Female Language: Irish PCP: TEZ ANGEL MD Marital Status: Single Visit Id: Visit Reason: Post surgical problem; Vaginal bleeding; Headache; 3 WEEKS POST OP HEADACHES AND HEAVY BLEEDING Speciality: Acuity: 3 Enc Type: Emergency Med Service: Emergency Arrival: 10/25/2023 14:15:46 Discharge: 10/25/2023 16:52:11 LOS: 000 02:37 Checkin: 10/25/2023 14:15:46 Checkout: 10/25/2023 16:52:11 Dispo Type: Home (Routine DC) EVENTS: Event Name Event Status Request Date/Time Start Date/Time Complete Date/Time Arrive Complete 10/25/2023 14:15:46 10/25/2023 14:15:46 10/25/2023 14:15:46 Document Home Meds Request 10/25/2023 14:15:46 Triage Complete 10/25/2023 14:15:46 10/25/2023 14:26:37 10/25/2023 14:26:37 Registration Complete 10/25/2023 14:18:40 10/25/2023 14:18:40 10/25/2023 14:18:40 Reg Complete Request 10/25/2023 14:18:40 Reg Bed Request Complete 10/25/2023 14:18:40 10/25/2023 14:18:40 10/25/2023 14:18:40 Bed Assign Complete 10/25/2023 14:19:27 10/25/2023 14:19:27 10/25/2023 14:19:27 Dr Exam Complete 10/25/2023 14:19:27 10/25/2023 14:21:04 10/25/2023 14:21:04 RN Exam Complete 10/25/2023 14:19:27 10/25/2023 14:34:21 10/25/2023 14:34:21 Registration Request 10/25/2023 14:21:04 Pending Labs Complete 10/25/2023 14:34:11 10/25/2023 15:35:03 Lab Complete 10/25/2023 14:34:11 10/25/2023 15:23:34 Blood Collect Request 10/25/2023 14:34:11 Meds Admin Request 10/25/2023 14:34:11 Meds Admin Complete 10/25/2023 14:55:23 10/25/2023 15:00:13 Pending Labs Complete 10/25/2023 15:04:59 10/25/2023 15:04:59 10/25/2023 15:23:34 Lab Complete 10/25/2023 15:04:59 10/25/2023 15:04:59 10/25/2023 15:23:34 Pending Labs Complete 10/25/2023 15:08:09 10/25/2023 15:08:09 10/25/2023 15:08:09 Pending Labs Complete 10/25/2023 15:13:23 10/25/2023 15:13:23 10/25/2023 15:25:53 Blood Collect Start 10/25/2023 15:13:23 10/25/2023 15:13:23 Discharge Complete 10/25/2023 16:39:19 10/25/2023 16:52:18 10/25/2023 16:52:18 Transfer Complete 10/25/2023 16:52:18 10/25/2023 16:52:18 10/25/2023 16:52:18 ADDRESS: [address] [place] [id number] [facility] DOC NOTES: MEDICAL INFORMATION: Prescriptions Given: Medications to Continue with No Changes Other Medications acetaminophen-oxycodone (Percocet 5 mg-325 mg oral tablet) 1 Tablets By Mouth every 6 hours. Refills: 0. buPROPion (buPROPion 150 mg ER Tab) 1 Tablets By Mouth every day. buPROPion (buPROPion 300 mg/24 hours ER Tab) 30 EA, 0 Refill(s), TAKE 1 TABLET BY MOUTH DAILY. cholecalciferol (Vitamin D3 2000 intl units oral tablet) 30 EA, 0 Refill(s), TAKE 1 TABLET BY MOUTH DAILY. furosemide (Lasix 40 mg Tab) 1 Tablets By Mouth every day as needed Edema. gabapentin (gabapentin 100 mg Cap) 1 Capsules By Mouth every day. hydrOXYzine (hydrOXYzine hydrochloride 50 mg oral tablet) 30 EA, 0 Refill(s), TAKE 1 TABLET BY MOUTH FOUR TIMES DAILY NEEDED. levothyroxine (levothyroxine 100 mcg (0.1 mg) Tab) 1 Tablets By Mouth every day. levothyroxine (Levoxyl 75 mcg (0.075 mg) oral [...] By Mouth every day as needed Edema. sumatriptan (SUMAtriptan 25 mg Tab) 9 EA, 0 Refill(s), TAKE 1 TABLET BY MOUTH at onset OF headache may repeat in 2 (TWO) HOURS. topiramate (topiramate 50 mg Tab) 60 EA, 0 Refill(s), TAKE 1 TABLET BY MOUTH TWICE DAILY. PATIENT EDUCATION INFORMATION: Instructions: Follow up: With: Address: When: Chay CASTRO [facility], [address] [place] [address] , [place] [address] Business (1) In 3 days 10/28/2023 With: Address: When: TEZ ANGEL [address] [place] [id number] Business (1) In 3 days DIAGNOSIS: Headache; Vaginal bleeding Normal [facility] ED Note-Physicianon 10-25-19 ED Note-Physician Basic Information Time Seen: Alexx Pena DO 10/25/2023 14:21 Chief Complaint hysterectomy 10/01. States had heavy bleeding yesterday, went through 2 pads. Today has changed her pad once. headache since Friday. Slight abdominal cramping. History of Present Illness 33 female presents emergency department with concerns for complications from prior surgery. Patient states that she underwent hysterectomy on October [address] Castro. She states that she has been having some intermittent bleeding specifically she had some heavy bleeding yesterday went through several pads. She changed her pad once today states the bleeding has slowed down. Her biggest concern is that she has been having some headaches over the last 6 days and is concerned that she may be anemic and this could be playing a role in her headaches because of all the bleeding. She does state that she has history of headache she has been taking Tylenol, ibuprofen, and sumatriptan without relief of symptoms. She talk to the [employer] physician was instructed to come to the emergency department. No other aggravating or relieving factors no other associated symptoms no other prior treatments or complaints. Family: Reviewed and noncontributory Social: lives at home Review of systems negative unless otherwise specified in the HPI. Physical Exam Vitals & Measurements T: 36.8 ?C(Oral) HR: 112(Peripheral) RR: 16 BP: 157/103 SpO2: 100% HT: 157 cm WT: 125.8 kg BMI: 51.04 General: The patient appears well and in no apparent distress. Patient is resting comfortably on cart. Skin: Warm, dry, mild pallor noted. Head: Normocephalic, atraumatic Neck: No JVD Eye: PERRLA, EOMI ENT: Moist mucus membranes Cardiovascular: Tachycardic rate regular rhythm with normal peripheral perfusion Respiratory: No respiratory distress no accessory muscle use no obvious audible wheezing Chest Wall: no deformity Musculoskeletal: normal ROM, no deformity, no swelling GI: Soft no obvious distention. No rebound or rigidity. No guarding. No tenderness. Neurological: A&O moves all extremities equal strength and symmetry Psychiatric: Cooperative and appropriate Medical Decision Making Workup in the ER has been reviewed and noted. No evidence of anemia here patient is treated with IV Toradol and Nubain does feel much better headache is gone and she is discharged home to follow-up the outpatient setting return to ER symptoms should change or worsen follow-up with Dr. Castro in the outpatient setting. Assessment/Plan Headache (R51.9: Headache, unspecified) Vaginal bleeding (N93.9: Abnormal uterine and vaginal bleeding, unspecified) Orders: ketorolac, 15 mg = 1 mL, Injection, IV Push, Once, Stop date 10/25/23 14:33:00 EST, STAT, Start date 10/25/23 14:33:00 EST, 10/25/23 14:33:00 EST nalbuphine, 5 mg = 0.5 mL, Injection, IV, Once PRN Pain, STAT, Start date 10/25/23 14:33:00 EST, 10/25/23 14:33:00 EST ondansetron, 4 mg = 2 mL, Injection, IV Push, Once, Stop date 10/25/23 14:55:00 EST, STAT, Start date 10/25/23 14:55:00 EST, 10/25/23 14:55:00 EST Sodium Chloride 0.9% intravenous solution 1,000 mL, 1,000 mL, IV, 1,000 mL/hr, STAT, Start date 10/25/23 14:33:00 EST, 1 hour(s), Total volume (mL): 1,000, 125.8 kg, 2.34, m2 ABO/Rh ABO/Rh History Check ABO/Rh Retype Antibody Screen Blood Bank ID# CBC w/ Auto Diff Comprehensive Metabolic Panel eGFR Extra SST Tube PT & PTT Medications Administered Given Sodium Chloride 0.9% IV Carolin 1000 mL 1,000 mL, 1000 mL, IV ketorolac 15 mg/mL Inj, 15 mg, IV Push nalbuphine 10 mg/mL Inj 1 mL, 5 mg, IV Zofran 4 mg/2 mL Injection, 4 mg, IV Push Disposition Plan Discharge Prescription List Prescriptions No active prescription medications Follow-up With When Contact Information Chay CASTRO In 3 days 10/28/[address] , [place] [address]- Business (1) Additional Instructions: TEZ ANGEL In 3 days [address] [place] [id number] Business (1) Additional Instructions: Problem List/Past Medical History Ongoing Anemia Anxiety [...] deficiency Historical No qualifying data Procedure/Surgical History Hysterectomy (10/01/2023), Laparoscopic cholecystectomy using robotic assistance (08/06/2023), Colposcopy, History of tubal ligation, Laparoscopy, LEEP, Plantar fasciotomy. Medications Inpatient ketorolac 15 mg/mL Inj, 15 mg= 1 mL, IV Push, Once nalbuphine 10 (more content not included)... Normal [facility] Comment on above: Result Comment: Elec tronically Signed By: Alexx Pena DO\.br\Date and Time Signed: 10/25/23 16:40 EST ED Patient Education Noteon 10-25-2023 ED Patient Education Note Normal [facility] ED Patient Summaryon 024 ED Patient Summary (Inserted Image. Zenaida ble to display) [address] [address] Patient Discharge Instructions Person Information Name: AZUL ONTIVEROS Age: 33 Years Arrival Date: 10/25/2023 14:15:46 Discharge Diagnosis: Headache; Vaginal bleeding Primary Care Physician: TEZ ANGEL MD Provider Information Primary Provider: Alexx Pena DO Advanced Van Loader:None The exam and treatment you received in the Emergency Department were for an urgent problem and are not intended as complete care. It is important that you follow up with a doctor, nurse practitioner, or physician?s operational assistant for ongoing care. If your symptoms become worse or you do not improve as expected and you are unable to reach your usual health care provider, you should return to the Emergency Department. We are available 24 hours a day. PRINCE AZUL ALLEN has been given the following list of patient education materials, prescriptions and follow-up instructions: Follow-up Instructions: With: Address: When: Chay CASTRO [facility], [address] [place] [address] [address] [place] [address] Business (1) In 3 days 10/28/2023 With: Address: When: TEZ ANGEL [address] [place] [phone] [employer] (1) In 3 days In the event that this physician does not participate in your insurance network, please consult with your insurance company to find a nearby participating provider. Patient Education Materials: A MESSAGE TO ALL PATIENTS REGARDING OPIOIDS PRESCRIPTION OPIOIDS: WHAT YOU NEED TO KNOW Prescription opioids can be used to help relieve eoqmtjnn-oq-bqpmal pain and are often prescribed following a [...] If you believe you may be struggling with addiction, tell y (more content not included)... Normal [facility] HEMATOLOGYOrdered By: Bridget Baron on 10-25-2023 Basophil Absolute 0.0 E9/L Normal 0.0 - 0.2 E9/L Remisol Heme Basophils/100 WBC (Bld) 0.5 % Normal 0.0 - 2.0 % Remisol Heme Eos Absolute 0.1 E9/L Normal 0.0 - 0.5 E9/L Remisol Heme Eosinophils/100 WBC (Bld) 1.6 % Normal 0.0 - 8.0 % Remisol Heme Erythrocyte distribution width (RBC) [Ratio] 13.1 % Normal 10.9 - 14.2 % Remisol Heme Hematocrit (Bld) [Volume fraction] 38.0 % Normal 34.0 - 46.0 % Remisol Heme Hemoglobin (Bld) [Mass/Vol] 12.9 g/dL Normal 12.0 - 16.0 gm/dL Remisol Heme Lymph Absolute 1.4 E9/L Normal 1.0 - 4.0 E9/L Remisol Heme Lymphocytes/100 WBC (Bld) 28.4 % Normal 14.0 - 50.0 % Remisol Heme MCH (RBC) [Entitic mass] 31.7 pg Normal 27.0 - 34.0 pg Remisol Heme MCHC (RBC) [Mass/Vol] 33.7 g/dL Normal 31.4 - 36.0 gm/dL Remisol Heme MCV (RBC) [Entitic vol] 94.0 fL Normal 80.0 - 100.0 fL Remisol Heme Carlton Absolute 0.4 E9/L Normal 0.2 - 1.0 E9/L Remisol Heme Monocytes/100 WBC (Bld) 8.0 % Normal 4.0 - 14.0 % Remisol Heme Neutro Absolute 3.1 E9/L Normal 2.0 - 7.5 E9/L Remisol Heme Neutro Auto 61.5 % Normal 36.0 - 75.0 % Remisol Heme Platelet 221.0 E9/L Normal 150.0 - 500.0 E9/L Remisol Heme Platelet mean volume (Bld) [Entitic vol] 8.9 fL Normal 6.4 - 10.8 fL Remisol Heme RBC 4.1 E12/L Low 4.3 - 5.9 E12/L Remisol Heme WBC 5.0 E9/L Normal 4.0 - 11.0 E9/L Remisol Heme PT & PTTon 10-25-2023 aPTT Coag (PPP) [Time] 31.3 second(s) Normal 25.1-36.5 [facility] Comment on above: Result Comment: Para meter 15 days - 4 weeks 1 - 5 months 6 - 11 months 1 - 5 years 6 - 10 years 11 - 17 years PTT Mean: 35.4 (27.6-45.6) Mean: 33.5 (24.8-40.7) Mean: 32.4 (25.1-40.7) Mean: 31.6 (24.0-39.2) Mean: 31.6 (26.9-38.7) Mean: 31.0 (24.6-38.4) Pediatric Reference ranges were obtained from a study by Jeevan Alonso et al. prepared from 1437 samples obtained at 7 different centers using the same coagulation reagent and instrumentation as [facility]. Currently there are no coagulation studies available worldwide for children to 14 days, and no normal ranges. Heparin therapeutic range (represented by Anti-Factor Xa activity of 0.2 - 0.4 U/mL) corresponds to PTT of 56.6 - 109.0 sec. Performed By: #### 1 [id number], [id number], 6330486, [id number], [id number] ####[facility] [address] [place] [address] INR Coag (PPP) [Relative time] 1.11 {INR} Invalid Interpretation Code [facility] Comment on above: Result Comment: INR results are specifically intended to assess patients stabilized on long-term Anticoagulation therapy suggested INR?s ?Less Intensive Anticoagulation? 2.0 ? 3.0 Conventional Range 3.0 ? 4.5 Performed By: #### 1 [id number], 4937618, 4261235, [id number], [id number] ####[facility] [address] [place] [address] PT Coag (PPP) [Time] 12.4 second(s) Normal 9.4-12.5 [facility] Comment on above: Result Comment: 15 d ays - 4 weeks 1 - 5 months 6 -11 months 1 ? 5 years 6 ? 10 years 11 -17 years Mean: 11.2 (9.5 ? 12.6) Mean: 11.0 (9.7 ? 12.8) Mean: 11.0 (9.8 ? 13.0) Mean: 11.3 (9.9 ? 13.4) Mean: 11.7 (10.0 ? 14.6) Mean: 11.8 (10.0 - 14.1) Pediatric Reference ranges were obtained from a study by Jeevan Alonso et al. prepared from 1437 samples obtained at 7 different centers using the same coagulation reagent and instrumentation as [facility]. Currently there are no coagulation studies available worldwide for children to 14 days, and no normal ranges. Performed By: #### 1 [id number], 6753083, 7137138, 13657951, [id number] ####[facility] [address] [place] [address] eGFRon 10-25-2023 eGFR 68 mL/min/1.73 m2 Normal >=59 [facility] Comment on above: Order Comment: Order added by Discern Expert. Performed By: #### 1 [id number], 0530003, 4149447, [id number], [id number] ####[id number] [place] [address] Heart and Vascular Office/Cl inic Noteon 10-21-2023 Heart and Vascular Office/Clinic Note Chief Complaint follow up testing results History of Present Illness Azul Allen is a 33-year-old female who presents today for a follow-up evaluation of CAD risk factors, CP, and pre operative risk assessment. 4 She has been feeling much better since recovering from her gallbladder surgery. Her chest pain and dyspnea persisted for a duration longer than typically expected following her surgeries. She had a hysterectomy on 10/01/2023 and did not feel anything. Her doctors have informed her that she has lower extremities edema. She wears compression socks. Given her father's medical history, there was a recommendation for her to undergo a thorough exam before proceeding with the surgeries. She has quit smoking in the last 4 months. Patient has no other questions or concerns at this time. Review of Systems PHQ Score Initial Depression Screen Score: 0 SCORE Constitutional: no fever, no sweats, no weakness Skin: no rash, no lesions, no bruising/petechiae ENMT: no sore throat, no congestion, no hoarseness Respiratory: no shortness of breath, no cough, no orthopnea, no wheezing Cardiovascular: no chest pain, no palpitations, no edema Gastrointestinal: no nausea, no vomiting, no diarrhea, no GI bleeding Genitourinary: no anuria/oliguria no hematuria Musculoskeletal: no back pain, no trauma Neurologic: no headache, no dizziness, no numbness, no weakness Psychiatric: no sleeping problems, no irritability, no anxiety/depression. Heme/Lymph: no bleeding tendency, no bruising tendency Allergy/Immunologic: no recurrent infections, no impaired immunity Additional ROS info: Except as noted in the above Review of Systems and in the History of Present Illness all other systems have been reviewed and are negative or noncontributory Physical Exam Vitals & Measurements HR: 95(Peripheral) BP: 117/84 SpO2: 98% HT: 62 in HT: 157 cm WT: 126 kg WT: 277.2 lb BMI: 51.12 General: alert, no acute distress Skin: warm, [...] age, normal judgement, normal psychiatric thoughts. Assessment/Plan 1. Preoperative Risk Assessment The patient's stress echocardiogram was normal. She has a normal heart function. I advised the patient to wear compression socks. We will keep her blood pressure, cholesterol levels, and weight under control. 2. Morbid Obesity BMI > 50. Diet and exercise as tolerated is recommended to promote weight loss and improve cardiovascular wellness. Follow up as needed. Portions of this record may have been created with voice recognition artificial intelligence software, specifically Tushky, StorSimple and or BookitNow!. Substitutions may have occurred due to the inherent limitations of voice recognition and artificial intelligence software. ATTESTATION: Documentation services were performed after the patient or guardian consented to allow [facility] to record this visit. JOANN inventory specialist manager and provider reviewed before signing. JOANN: Kel Pastrana Ano-os/ Pastd by: Talya Camargo. Follow-up No qualifying data available Problem List/Past [...] deficiency Historical No qualifying data Procedure/Surgical History Hysterectomy (10/01/2023), Laparoscopic cholecystectomy using robotic assistance (08/06/2023), Colposcopy, History of tubal ligation, Laparoscopy, LEEP, Plantar fasciotomy. Medications buPROPion 150 mg ER Tab, 150 mg= 1 tab(s), Oral, Daily buPROPion 300 mg/24 hours ER Tab gabapentin 100 mg Cap, 100 mg= 1 cap(s), Oral, Daily hydrOXYzine hydrochloride 50 mg oral tablet Lasix 40 mg Tab, 40 mg= 1 tab(s), Oral, Daily, PRN levothyroxine 100 mcg (0.1 mg) Tab, 100 mcg= 1 tab(s), Oral, Daily Levoxyl 75 mcg (0.075 mg) oral tablet, 75 mcg= 1 tab(s), Oral, Daily LORazepam 0.5 mg Tab, (more content not included)... [facility] Comment on above: Result Comment: Elec tronically Signed By: Candy SOTELO, Glenn Holbrook\.br\Date and Time Signed: 10/21/23 09:36 EST\.br\Electronically Co-Signed By: Talya Camargo\.br\Date and Time Co-Signed: 10/20/23 17:42 EST Consent for Treatmenton 10-09 Consent for Treatment [id number]#1.00TIFF [facility] Physician Orderon 10-20-2023 Physician Order [id number]#1.00TIFF [facility] Stress EKG Tracingson 2023 Stress EKG Tracings [id number]#1.00TIFF [facility] David 10-01-2023 L Specimen: [id number] Received: 10/02/23 Status: KARI Monroy Num: [id number] Spec Type: Surgical Subm Dr: Chay Castro Tissues: A Uterus w/ or w/o tubes ovaries except neoplastic or prolap (UTERUS) Procedures: , Gross/Micro L5 Age/ Patient Sex Location Account Attending Physician Azul Huertas 33/F [facility] [id number] Chay Castro SPEC NUM: [id number] RECD: 10/02/23 STATUS: KARI MONROY NUM: [id number] GAURI: 10/01/[address]: Chay Castro ENTERED: 10/02/[address] [facility] [address]: Gallito Abdullahi SPEC TYPE: Surgical DEPT: SHAQUILLE SHIELDS ORDERED: , Gross/Micro L5 ORDERED: , Gross/Micro L5 Pathological Diagnosis Uterus and Cervix, Hystrectomy: Uterus: Adenoymosis. Secretory endometrium. Cervix: Chronic cervicitis. Clinical Information Menorrhagia, pelvic pain Gross Description Received in formalin labeled with the patient's name, date of and uterus is a 42 g, 6.2 x 4.2 x 3.0 cm intact uterus. The serosa is pink-kelsey with dull red-brown foci along the posterior aspect. The cervix is 2.7 cm in diameter with pink-kelsey dull ectocervical mucosa. There is a 0.8 cm linear os and a discrete transition zone slightly external to the os leading into a 2.5 cm long trabeculated endocervical canal. The endometrial cavity is 2.6 cm cornu to cornu by 2.6 cm fundus to lower uterine segment. The endometrium is 0.1 cm thick pink-kelsey and velvety. The myometrium is 1.6 cm thick with no areas of prominent trabeculation and no well-circumscribed nodules identified. Box Sorter sections are submitted in 4 cassettes as follows: A1 - Posterior cul-de-sac serosa with dull red-brown serosal focus A2 - Anterior and posterior cervix A3 - Anterior endomyometrium A4 - Posterior endomyometrium Specimen: [id number] Received: 10/02/23 Status: KARI Sally Num: [id number] Spec Type: Surgical Subm Dr: Chay Castro Tissues: A Uterus w/ or w/o tubes ovaries except neoplastic or prolap (UTERUS) Procedures: , Gross/Micro L5 Patient: KiyaAzul [id number] (Continued) Specimen: [id number] Received: 10/02/23 (Continued) Signed (signature on file) Alexi Mclaughlin MD 10/04/23 1139 Specimen: [id number] Received: 10/02/23 Status: KARI Monroy Num: [id number] Spec Type: Surgical Subm Dr: Chay Castro Tissues: A Uterus w/ or w/o tubes ovaries except neoplastic or prolap (UTERUS) Procedures: Jt/Micro L5 Patient: Azul Huertas [id number] (Continued) Specimen: [id number] Received: 10/02/23 (Continued) CPT Codes 94974 Specimen: [id number] Received: 10/02/23 Status: KARI Monroy Num: [id number] Spec Type: Surgical Subm Dr: Chay Castro Tissues: A Uterus w/ or w/o tubes ovaries except neoplastic or prolap (UTERUS) Procedures: , Gross/Micro L5 Patient: Azul Huertas [id number] (Continued) Signed (signature on file) Alexi Mclaughlin MD 10/04/23 1139 [facility] Echocardiographyon Echocardiography [id number]#1.00TIFF [facility] Consent for Treatmenton 09-08 Consent for Treatment [id number]#1.00TIFF [facility] Insurance Correspondenceon 1 10-23-2022 Insurance Correspondence [id number]#1.00TIFF [facility] Auth for Release of Medical Recordson 08-20-2023 Auth for Release of Medical Records [id number]#1.00TIFF [facility] Ambulatory Visit Summaryon 1 10-16-2022 Ambulatory Visit Summary PRINCE TIFFANYAZUL :1990 Visit Date:08/15/2023 Ambulatory Visit Instructions Your Care Team Attending Physician - Alonso SOTELO, Alexx Dowling Primary Care Physician - STANLEY SOTELO, TEZ This Is Your Medications List acetaminophen-oxycodone (Percocet [...] you for choosing us for your care. Normal [facility] General Surgery Office/Clini c Noteon 08-15-2023 General Surgery Office/Clinic Note Chief Complaint s/p HPI Staff Azul is a 33 y.o. female here for s/p cholecystectomy done 08/07/2023 History of Present Illness Azul Llanos Pacofarhana is a 33-year-old female status post robotic [...] with voice recognition artificial intelligence software, specifically Tushky, StorSimple and or BookitNow!. Substitutions may have occurred voice recognition and artificial intelligence software. Documentation services were performed after patient or guardian consented to allow [employer] to record this visit. JOANN inventory specialist manager and provider reviewed before signing. JOANN: Rosalva [...] Brother. Hypertensio (more content not included)... Normal [facility] Comment on above: Result Comment: Elec tronically [...] 3 days after surgery She finished the [place] yesterday and states the pain is unbearable She states she's added Motrin 800 mg every 12 hours and Tylenol 400 mg every 6 hours History of Present Illness Azul Allen is [...] with voice recognition artificial intelligence software, specifically Tushky, StorSimple and or BookitNow!. Substitutions may have occurred voice recognition and artificial intelligence software. Documentation services were performed after patient or guardian consented to allow [facility] to record this visit. JOANN inventory specialist manager and provider reviewed before signing. JOANN: Rosalva [...] Instructions Percoce (more content not included)... Normal [facility] Comment on above: Result Comment: Elec tronically Signed By: Alexx Gupta MD\.br\Date and Time Signed: 08/15/23 10:54 EST\.br\Electronically Co-Signed By: Rosalva Sánchez\.br\Date and Time Co-Signed: 08/12/23 12:58 EST Heart [...] partial hysterectomy in 09/2023 as recommended by [facility]. The decision to assess her cardiac status [...] abnormal for sinus rhythm and possible anterior NM, although I think it is probably not more likely as a lead issue. However, we will get her a stress echo to evaluate the shortness of breath and abnormal EKG. See her back for follow-up. Chest pain (R07.9: Chest pain, unspecified) Stress echo to evaluate Portions of this record may have been created with voice recognition artificial intelligence software, specifically Tushky, StorSimple and or BookitNow!. Substitutions may have occurred due to the inherent limitations of voice recognition and artificial intelligence software. Documentation services were performed after patient or guardian consented to allow [facility] to record this visit. JOANN inventory specialist manager and provider reviewed before signing. JOANN: Scott [...] tab(s), Oral, Da (more content not included)... Normal [facility] Comment on above: Result Comment: Elec tronically Signed By: Candy SOTELO, Glenn Holbrook\.br\Date and Time Signed: 08/12/23 13:43 EST\.br\Electronically Co-Signed By: Scott Frederick\.br\Date and Time Co-Signed: 08/11/23 17:25 EST Consent for Treatmenton Consent for Treatment [id number]#1.00TIFF Normal [facility] IntraOperative Documentson 1 10-12-2022 IntraOperative Documents [id number]#1.00TIFF Normal [facility] Physician Orderon 08-11-2023 Physician Order [id number]#1.00TIFF Normal [facility] Consent for Anesthesiaon Consent for Anesthesia [id number]#1.00TIFF Normal [facility] Discharge Instructionson Discharge Instructions [id number]#1.00TIFF Normal [facility] IntraOperative Documentson 1 10-07-2022 IntraOperative Documents [id number]#1.00TIFF [facility] Main OR Intraoperative Recor don 08-07-2023 Main OR Intraoperative Record IntraOp Document Type FT Summary Primary Physician: Alexx Gupta MD Finalized Date/Time: 08/07/23 13:39:28 Pt. Name: AZUL ONTIVEROS/Sex: 1990 Female Med Rec #: [id number] Physician: Alexx Gupta MD Financial #: [id number] Pt. Type: A Room/Bed: [facility] Admit/Disch: 08/06/23 05:51:08 - 08/06/23 11:20:00 Institution: Case Times FT Entry 1 Patient Times In Room 08/06/23 07:37:00 Out Room 08/06/23 09:24:00 Procedure Times Start 08/06/23 08:06:00 Stop 08/06/23 09:20:00 Anesthesia Times Start 08/06/23 07:37:00 Stop 08/06/23 09:24:00 Last Modified By: Santos SETHI, Natanael Bateman 08/06/23 09:24:07 General Comments: 08/07/23 Chart opened to review and send charges LRoth CSFA Case Attendance FT Entry 1 Entry 2 Entry 3 Case Attendee Felicitas Sanderson CRNA, MD, Alexx Graham RN, Natanael Bateman Role Performed WATCH DIAL STONER Surgeon - Primary Fabric Sourcer - Primary Time In 08/06/23 07:37:00 08/06/23 07:37:00 08/06/23 07:37:00 Time Out 08/06/23 09:24:00 08/06/23 09:04:00 08/06/23 09:24:00 Procedure CHOLECYSTECOMY ROBOT CHOLECYSTECOMY ROBOT CHOLECYSTECOMY ROBOT ASSISTED(.) ASSISTED(.) ASSISTED(.) Comments , anesthesia sulfuric acid plant supervisor Last Modified By: Eduardo TAYLOR, Julianne Graham RN, Natanael Graham RN, Natanael Bateman 08/07/23 13:36:33 08/06/23 09:24:08 08/06/23 09:24:08 Entry 4 Entry 5 Case Attendee Emmanuelle Wilks James W Role Performed Scrub - Primary PACK ROOM OPERATOR/SA Time In 08/06/23 07:37:00 08/06/23 07:37:00 Time Out 08/06/23 09:24:00 08/06/23 09:24:00 Procedure CHOLECYSTECOMY ROBOT CHOLECYSTECOMY ROBOT ASSISTED(.) ASSISTED(.) Comments Last Modified By: Santos SETHI, Natanael Graham RN, Natanael Bateman 08/06/23 09:24:08 08/06/23 09:24:08 Perioperative Protocols FT [...] Felicitas Sanderson CRNA, Given Participants Alonso SOTELO, Santos Duran RNNatanael Chaput, Madison A, Boyer, James W Time Out [...] Procedure Yes Primary Surgeon Alexx Gupta MD 08/06/23 08:06:00 Stop 08/06/23 09:20:00 Anesthesia Type [...] and tissue Entry 1 Skin Integrity Intact, Fabens, Warm, and Skin Abnormality No Dry Outcomes Met? Yes Last Modified By: Natanael Graham RN 08/06/23 08:04:25 Post-Care Text: The patient is [...] Position Supine (more content not included)... Normal [facility] Pre-Op Checkliston Pre-Op Checklist [id number]#1.00TIFF [facility] CHEMISTRYOrdered By: Lab ROP User on 08-06-2023 Glucose [Mass/Vol] 92 mg/dL Normal 55 - 99 mg/dL [facility] [place] Subsection Comment on above: Result Comment: Lisa parish Meter POC Username COURTNEY DONOVAN Invalid Interpretation Code [facility] Subsection Sodium [Moles/Vol] [id number] mmol/L Invalid Interpretation Code [facility] Subsection Sodium [Moles/Vol] 791866129 mmol/L Invalid Interpretation Code [facility] Subsection Capillary Glucose POCon 07-10 Glucose [Mass/Vol] 92 mg/dL Normal 55-99 [facility] Comment on above: Result Comment: Lisa parsih Meter Performed By: #### 2 [id number] ####[facility] [address] [place] [address] Consent for Treatmenton 07-10 Consent for Treatment [id number]#1.00TIFF [facility] Discharge Instructionson Discharge Instructions AZUL ONTIVEROS [...] Follow-Up Appointments Friday 1:30 PM EST With: Glenn Gupta MD Where: Cardiology Clinic Friday 9:20 AM EST With: Alexx Gupta MD Where: [facility] General Surgery [facility] Comment on above: Result Comment: Elec tronically [...] AM EST With: Alexx Gupta MD Where: [facility] General Surgery [facility] Comment on above: Result Comment: Elec tronically Signed By: Thelma SETHI, Courtney Rodriguez\.min\Date and Time Signed: 08/15/23 06:03 EST Discharge Instructions AZUL ONTIVEROS :1990 Visit [...] AM EST With: Alexx Gupta MD Where: [facility] General Surgery [facility] Comment on above: Result Comment: Elec tronically Signed By: Thelma SETHI, Courtney Rodriguez\.br\Date and Time Signed: 08/15/23 06:03 EST Inpatient Patient Summaryon 08-06-2023 Inpatient Patient Summary [place] [id number] [facility] Clinical Discharge Instructions PERSON INFORMATION Name: AZUL ONTIVEROS PHYSICIANS Admitting Physician: Alexx Gupta MD Attending Physician: Alexx Gupta MD PCP: TEZ ANGEL MD Discharge Diagnosis: Comment: PATIENT EDUCATION INFORMATION Instructions: Minimally Invasive Cholecystectomy, Care After Medication Leaflets: Follow up: With: Address: When: Alexx Gupta [address] [place] [address] [phone] Business (1) Comments: Appointment has already been scheduled Type Location Start [facility] Cardiology New Patient (FT) FT.Cardiology Clinic 08/11/2023 1:30 PM 08/11/2023 1:45 PM Confirmed GS Post Op 15 [facility] 08/15/2023 9:20 AM 08/15/2023 9:40 AM Confirmed MEDICATION LIST New Medications [facility], [address] [place], [place] [id number], [phone] acetaminophen-oxycodone (Percocet 5 mg-325 mg oral tablet) [...] TWICE DAILY., Responsible Provider: Tez Angel Comment: Eli [facility] Main OR PACU I Recordon 07-10 Main OR PACU I Record PACU Phase I Document Type FT Summary Primary Physician: Alexx Gupta MD Finalized Date/Time: 08/06/23 10:10:38 Pt. Name: PRINCE AZUL ALLEN D.O.B./Sex: 1990 Female Med Rec #: [id number] Physician: Alexx Gupta MD Financial #: [id number] Pt. Type: A Room/Bed: [place] [address] Admit/Disch: 08/06/23 05:51:08 - Institution: Case Times [...] By: Bia Perry RN 08/06/23 10:10 Normal [facility] Main OR PACU II Recordon Main OR PACU II Record PACU Phase II Document Type FT Summary Primary Physician: Alexx Gupta MD Finalized Date/Time: 08/06/23 11:21:37 Pt. Name: AZUL ONTIVEROS/Sex: 1990 Female Med Rec #: [id number] Physician: Alexx Gupta MD Financial #: [id number] Pt. Type: A Room/Bed: [place] [address] Admit/Disch: 08/06/23 05:51:08 - Institution: Case Times [...] By: Adeline Elizabeth RN 08/06/23 11:21 Normal [facility] Main OR Preoperative Recordo n 08-06-2023 Main OR Preoperative Record PreOp Document Type FT Summary Primary Physician: Alexx Gupta MD Finalized Date/Time: 08/06/23 08:10:54 Pt. Name: AZUL ONTIVEROS/Sex: 1990 Female Med Rec #: [id number] Physician: Alexx Gupta MD Financial #: [id number] Pt. Type: A Room/Bed: [facility]01/06 Admit/Disch: 08/06/23 05:51:08 - Institution: Case Times [...] By: Natanael Graham RN 08/06/23 08:10 Normal [facility] Monitor Recordon 08-06-2023 Monitor Record [id number]#1.00TIFF Normal [facility] Operative Reporton Operative Report Indication for Surge ry 33-year-old female with symptomatic cholelithiasis here for robotic cholecystectomy Preoperative Diagnosis CHOLELITHIASIS Postoperative Diagnosis CHOLELITHIASIS Operation CHOLECYSTECOMY ROBOT ASSISTED, ROBOT ASSISTED LAPAROSCOPIC CHOLECYSTECOMY, . Surgeon(s) Alonso SOTELO, Alexx Dowling (Surgeon - Primary) Electrostatic Painter Michael Anesthesia General Mauricio Chang Jr., DO (Nursing Unit Coordinator) Felicitas Sanderson CRNA (Other) Estimated Blood Loss [...] x2 Patient tolerated the procedure: yes Normal [facility] Comment on above: Result Comment: Elec tronically Signed By: Alonso SOTELO, Alexx Dowling\.br\Date and Time Signed: 08/06/23 09:40 EST Outpatient Surgery Discharge Instructionon 08-06-2023 Outpatient Surgery Discharge Instruction [place] [id number] Patient Discharge Instructions PERSON INFORMATION Name: AZUL ONTIVEROS Date of : 1990 Current Date: 08/06/2023 09:34:08 PHYSICIANS Admitting Physician: Alexx Gupta MD Discharge Diagnosis: PRINCE AZUL ALLEN has been given the [...] Follow up: With: Address: When: Alexx Gupta [address] [place], [place] [address], [place] [address], [facility] [address] [place] [phone] Business (1) Comments: Appointment has already been scheduled Type Location Start [facility] Cardiology New Patient (FT) FT.Cardiology Clinic 08/11/2023 1:30 PM 08/11/2023 1:45 PM Confirmed GS Post Op 15 [facility] 08/15/2023 9:20 AM 08/15/2023 9:40 AM Confirmed Pharmacy Information: You may receive a survey from [employer] asking you to rate your care experience. Your feedback is important and will help us understand what we do well and how we can improve the quality of care we provide to you, your loved ones and our community. It?s an honor to serve you. Thank you for choosing [facility] HERE ARE THE MEDICATION CHANGES THAT OCCURRED DURING YOUR HOSPITAL STAY New Medications [facility], [address] [place] [id number], [phone] acetaminophen-oxycodone (Percocet 5 mg-325 mg oral tablet) [...] MOUTH TWICE DAILY., Responsible Provider: Tez Angel PATIENT EDUCATION INFORMATION Instructions: Minimally Invasive Cholecystectomy, Care After The following information offers guidance on how to care (more content not included)... [facility] Patient Education - Texton 1 1-29-2023 Patient Education - Text Gastroenterology Minimally Invasive [...] these instructions at home: Medicines ? Take ljrj-sfz-iqrhvde and prescription medicines only as told by [...] keep your urine pale yellow. ? Take ulvt-wub-rmrdhtx or prescription medicines. ? Eat foods that [...] and water are not available, use hand key account coordinator. ? Change your dressing as told by [...] if yo (more content not included)... Normal [facility] Progress Note-Physicianon Progress Note-Physician Patient: AZUL ONTIVEROS Age: 33 years Sex: Female : 1990 Associated Diagnoses: None Author: Mauricio Chang Jr., DO Postoperative Information Postoperative disposition: Postoperative disposition: Home. Optimetrix number: Optimetrix number [id number]. Anesthetic utilized: General. Physical Examination Vital Signs [...] Surgery Unit, and To home ). Normal [facility] Comment on above: Result Comment: Elec tronically [...] 1 EA, Refill(s) 0, Prior to colonoscopy., [facility], 157.5, cm, 07/08/23 14:03:00 EDT, Height/Length Dosing, 129.5, kg, 07/08/23 14:03:00 EDT, Weight Dosing Protonix 40 mg Tab-DR: 40 mg = 1 tab(s), Oral, Daily, # 90 tab(s), Refills(s) 1, Pharmacy: [facility], 152.4, cm, 08/10/21 14:17:00 EST, Height/Length [...] list: All Problems Anemia / SNOMED CT 922053889 / Confirmed Anxiety / SNOMED CT 59751909 / Confirme (more content not included)... Normal [facility] Comment on above: Result Comment: Elec tronically Signed By: Mauricio Chang Jr., DO\.br\Date and Time Signed: 08/06/23 07:29 EST Consent for Procedure/Surger yon 07-28-2023 Consent for Procedure/Surgery [id number]#1.00TIFF Normal [facility] Auto Diffon 07-25-2023 Basophils/100 WBC (Bld) 0.4 % Normal 0.0-2.0 [facility] Comment on above: Order Comment: Order Added by Discern Expert. Performed By: #### 2 [id number], [id number] #### [facility] [address] [place] [address] Basophils/Leukocytes Auto (Bld) [Pure # fraction] 0.0 E9/L Normal 0.0-0.2 [facility] Comment on above: Order Comment: Order Added by Discern Expert. Performed By: #### 2 [id number], [id number] #### [facility] [address] [place] [address] Eosinophils/100 WBC (Bld) 0.9 % Normal 0.0-8.0 [facility] Comment on above: Order Comment: Order Added by Discern Expert. Performed By: #### 2 [id number], [id number] #### [facility] [address] [place] [address] Eosinophils/Leukocyt es Auto (Bld) [Pure # fraction] 0.0 E9/L Normal 0.0-0.5 [facility] Comment on above: Order Comment: Order Added by Discern Expert. Performed By: #### 2 [id number], [id number] #### [facility] [address] [place] [address] Lymphocytes/100 WBC (Bld) 29.0 % Normal 14.0-50.0 [facility] Comment on above: Order Comment: Order Added by Kyle Expert. Performed By: #### 2 [id number], [id number] #### [facility] [address] [place] [address] Lymphocytes/Leukocyt es Auto (Bld) [Pure # fraction] 1.5 E9/L Normal 1.0-4.0 [facility] Comment on above: Order Comment: Order Added by Kyle Expert. Performed By: #### 2 [id number], [id number] #### [facility] [address] [place] [address] Monocytes/100 WBC (Bld) 8.4 % Normal 4.0-14.0 [facility] Comment on above: Order Comment: Order Added by Kyle Expert. Performed By: #### 2 [id number], [id number] #### [facility] [address] [place] [address] Monocytes/Leukocytes Auto (Bld) [Pure # fraction] 0.4 E9/L Normal 0.2-1.0 [facility] Comment on above: Order Comment: Order Added by Kyle Expert. Performed By: #### 2 [id number], [id number] #### [facility] [address] [place] [address] Neutrophils/100 WBC (Bld) 61.3 % Normal 36.0-75.0 [facility] Comment on above: Order Comment: Order Added by Discern Expert. Performed By: #### 2 [id number], [id number] #### [facility] [address] [place] [address] Neutrophils/Leukocyt es Auto (Bld) [Pure # fraction] 3.3 E9/L Normal 2.0-7.5 [facility] Comment on above: Order Comment: Order Added by Discern Expert. Performed By: #### 2 [id number], [id number] #### [facility] [address] [place] [address] CBC w/ Auto Diffon 3 Erythrocyte distribution width (RBC) [Ratio] 12.9 % Normal 10.9-14.2 [facility] Comment on above: Performed By: #### 2 [id number], [id number] #### [facility] [address] [place] [address] Hematocrit (Bld) [Volume fraction] 36.5 % Normal 34.0-46.0 [facility] Comment on above: Performed By: #### 2 360887, [id number] #### [facility] [address] [place] [address] Hemoglobin (Bld) [Mass/Vol] 12.1 g/dL Normal 12.0-16.0 [facility] Comment on above: Performed By: #### 2 825548, 7845163 #### [facility] [address] [place] [address] MCH (RBC) [Entitic mass] 31.1 pg Normal 27.0-34.0 [facility] Comment on above: Performed By: #### 2 022682, 4549446 #### [facility] [address] [place] [address] MCHC (RBC) [Mass/Vol] 33.3 g/dL Normal 31.4-36.0 [facility] Comment on above: Performed By: #### 2 818167, 0500440 #### [facility] [address] [place] [address] MCV (RBC) [Entitic vol] 93.3 fL Normal 80.0-100.0 [facility] Comment on above: Performed By: #### 2 130095, 9091261 #### [facility] [address] [place] [address] Platelet mean volume (Bld) [Entitic vol] 8.6 fL Normal 6.4-10.8 [facility] Comment on above: Performed By: #### 2 662658, 5468480 #### [facility] [address] [place] [address] Platelets (Bld) [#/Vol] 227.0 E9/L Normal 150.0-500. 0 [facility] Comment on above: Performed By: #### 2 250261, 1313508 #### [facility] [address] [place] [address] RBC (Bld) [#/Vol] 3.9 E12/L Low 4.3-5.9 [facility] Comment on above: Performed By: #### 2 576926, 7608976 #### [facility] [address] [place] [address] WBC corrected for nucl RBC Auto (Bld) [#/Vol] 5.3 E9/L Normal 4.0-11.0 [facility] Comment on above: Performed By: #### 2 713429, 4314627 #### [facility] [address] [place] [address] Maxillofacial w/o Contras ton 07-25-2023 CT Maxillofacial w/o Contrast Exam Date/Time: [...] Signed by: Latasha Arciniega MD Transcribed by: KALR Technologist: [facility] Consent for Treatmenton 07-09 Consent for Treatment [id number]#1.00TIFF [facility] HEMATOLOGYOrdered By: SYSTEM SYSTEM on 07-25-2023 Basophils/100 WBC (Bld) 0.4 % Normal 0.0 - 2.0 % [facility]eAutoSS Basophils/Leukocytes Auto (Bld) [Pure # fraction] 0.0 E9/L Normal 0.0 - 0.2 E9/L [facility]eAutoSS Eosinophils/100 WBC (Bld) 0.9 % Normal 0.0 - 8.0 % [facility]eAutoSS Eosinophils/Leukocyt es Auto (Bld) [Pure # fraction] 0.0 E9/L Normal 0.0 - 0.5 E9/L [facility]eAutoSS Lymphocytes/100 WBC (Bld) 29.0 % Normal 14.0 - 50.0 % [facility]eAutoSS Lymphocytes/Leukocyt es Auto (Bld) [Pure # fraction] 1.5 E9/L Normal 1.0 - 4.0 E9/L [facility]eAutoSS Monocytes/100 WBC (Bld) 8.4 % Normal 4.0 - 14.0 % [facility] HemeAutoSS Monocytes/Leukocytes Auto (Bld) [Pure # fraction] 0.4 E9/L Normal 0.2 - 1.0 E9/L [facility]eAutoSS Neutrophils/100 WBC (Bld) 61.3 % Normal 36.0 - 75.0 % [facility]eAutoSS Neutrophils/Leukocyt es Auto (Bld) [Pure # fraction] 3.3 E9/L Normal 2.0 - 7.5 E9/L [facility] HemeAutoSS HEMATOLOGYOrdered By: Christiana Johnson on 07-25-2023 Erythrocyte distribution width (RBC) [Ratio] 12.9 % Normal 10.9 - 14.2 % [facility] HemeAutoSS Hematocrit (Bld) [Volume fraction] 36.5 % Normal 34.0 - 46.0 % [facility] HemeAutoSS Hemoglobin (Bld) [Mass/Vol] 12.1 g/dL Normal 12.0 - 16.0 gm/dL [facility] HemeAutoSS MCH (RBC) [Entitic mass] 31.1 pg Normal 27.0 - 34.0 pg [facility] HemeAutoSS MCHC (RBC) [Mass/Vol] 33.3 g/dL Normal 31.4 - 36.0 gm/dL [facility]eAutoSS MCV (RBC) [Entitic vol] 93.3 fL Normal 80.0 - 100.0 fL [facility] HemeAutoSS Platelet mean volume (Bld) [Entitic vol] 8.6 fL Normal 6.4 - 10.8 fL [facility]eAutoSS Platelets (Bld) [#/Vol] 227.0 E9/L Normal 150.0 - 500.0 E9/L [facility]eAutoSS RBC (Bld) [#/Vol] 3.9 E12/L Low 4.3 - 5.9 E12/L [facility]eAutoSS WBC corrected for nucl RBC Auto (Bld) [#/Vol] 5.3 E9/L Normal 4.0 - 11.0 E9/L [facility] HemeAutoSS Consent for Treatmenton 07-09 Consent for Treatment [id number]#1.00TIFF Normal [facility] Consent for Procedure/Surger yon 07-23-2023 Consent for Procedure/Surgery [id number]#1.00TIFF Normal [facility] Insurance Correspondenceon 09-21-2022 Insurance Correspondence [id number]#1.00TIFF Normal [facility] Ambulatory Visit Summaryon 1 09-20-2022 Ambulatory Visit Summary AZUL ONTIVEROS :1990 [...] AM EST With: Alexx Gupta MD Where: [facility] General Surgery Rarden Normal [facility] General Surgery Office/Clini c Noteon 07-21-2023 General Surgery Office/Clinic Note Chief Complaint RUQ pain 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 female here [...] with voice recognition artificial intelligence software, specifically Tushky, StorSimple and or BookitNow!. Substitutions may have occurred voice recognition and artificial intelligence software. Documentation services were performed after patient or guardian consented to allow [employer] to record this visit. JOANN inventory specialist manager and provider reviewed before signing. JOANN: Rosalva [...] unknown Tobacco (more content not included)... Normal [facility] Comment on above: Result Comment: Elec tronically [...] ovarian syndrome (PCOS). ? Binge-eating disorder. ? [place] syndrome. ? Taking certain medicines, such as [...] food choices, such as grocery stores and Dheere Bolo. What are the signs or symptoms? The [...] you have to (more content not included)... Normal [facility] Insurance Correspondenceon 1 09-15-2022 Insurance Correspondence [id number]#1.00TIFF [facility] Physician Orderon 07-16-2023 Physician Order [id number]#1.00TIFF [facility] US Gallbladderon 07-15-2023 US Gallbladder Exam [...] Fitch M.D. Transcribed by: KARL Technologist: SERAFIN [facility] Consent for Treatmenton Consent for Treatment [id number]#1.00TIFF [facility] Ambulatory Visit Summaryon 1 Ambulatory Visit [...] Abdominal pain, No, Epigastric abdominal pain Normal [facility] Gastroenterology Office/Clin ic Noteon 07-08-2023 Gastroenterology Office/Clinic Note Chief Complaint Upper abdominal pain and pain when breathing. HPI Staff This is a 32 year old female who presents today for a follow up from [facility] on 06/23/23, for complaints of GERD/ gastritis. Dr Angel referred patient to for gallbladder. History of Present Illness Patient is a 32-year-old female who presents for follow-up from ED visit 06/23/2023 at [facility]. Presents with female visitor today. Review [...] father, diagnosed in his 30s and hx. [place] at age early 40s, reports her father [...] She explains she used to drink alcohol [id number]: 3 cans of beer and 1/2 gallon [...] Ordered EGD. Ordered: EGD Endoscopy (Hospital Procedure) [facility] Internal Ambulatory Referral US Gallbladder 2. Nausea [...] Ordered EGD. Ordered: EGD Endoscopy (Hospital Procedure) [facility] Internal Ambulatory Referral US Gallbladder 3. Irregular [...] in c (more content not included)... Normal [facility] Comment on above: Result Comment: Elec tronically [...] added (diluted fruit juice). ? Eat bland, eqtv-my-ftajgl foods in small amounts as you are able. These foods include bananas, applesauce, rice, lean meats, toast, and crackers. ? Avoid drinking fluids that contain a lot of sugar or caffeine, such as energy drinks, sports drinks, and soda. ? Avoid alcohol. ? Avoid spicy or fatty foods. General instructions ? Take aiut-tel-vzhuedn and prescription medicines only as told by [...] and water are not available, use hand key account coordinator. ? Make sure that everyone in your [...] recommendations for eating and drinking and take tpwp-bgi-hvasbca and prescription medicines only as told by [...] provider. Document Revised: 03/01/2022 Document Reviewed: 03/01/2022 [employer] Patient Education ? 2022 Zoondy. [facility] Reminderson 07-08-2023 Reminders - From: Zoya Deal To: [facility] - Reminders/Recalls; Sent: 07/08/2023 14:50:43 EDT Show up: 07/08/2023 14:51:00 EDT Subject: Ambulatory Reminder [place] Reminder/Recall call pt and schedule EGD and Colon with Dr. Patino once Medicaid [place] has been approved. Normal [facility] Physician Referralon 023 Physician Referral [id number]#1.00TIFF Normal [facility] Auto Diffon 06-23-2023 Basophils/100 WBC (Bld) 0.4 % Normal 0.0-2.0 [facility] Comment on above: Order Comment: Order Added by Discern Expert. Performed By: #### 2 557085, 1217328, 5141861, 7885199, 3516486, 57510482, 91528639 #### [facility] [address] [place] [address] Basophils/Leukocytes Auto (Bld) [Pure # fraction] 0.0 E9/L Normal 0.0-0.2 [facility] Comment on above: Order Comment: Order Added by Discern Expert. Performed By: #### 2 503946, 3729468, 6255909, 4304521, 3457128, 01649870, 46602420 #### [facility] [address] [place] [address] Eosinophils/100 WBC (Bld) 0.6 % Normal 0.0-8.0 [facility] Comment on above: Order Comment: Order Added by Discern Expert. Performed By: #### 2 008144, 7267930, 9458393, 8580615, 0266493, 98226905, 71738882 #### [facility] [address] [place] [address] Eosinophils/Leukocyt es Auto (Bld) [Pure # fraction] 0.0 E9/L Normal 0.0-0.5 [facility] Comment on above: Order Comment: Order Added by Discern Expert. Performed By: #### 2 802378, 8502420, 5083460, 1328448, 8542543, 18000930, 54336729 #### [facility] [address] [place] [address] Lymphocytes/100 WBC (Bld) 13.9 % Low 14.0-50.0 [facility] Comment on above: Order Comment: Order Added by Discern Expert. Performed By: #### 2 884820, 6984444, 3464007, 5094225, 1388902, 88467498, 56343095 #### [facility] [address] [place] [address] Lymphocytes/Leukocyt es Auto (Bld) [Pure # fraction] 1.0 E9/L Normal 1.0-4.0 [facility] Comment on above: Order Comment: Order Added by Discern Expert. Performed By: #### 2 187926, 3800206, 9740745, 7608046, 8464786, 10363330, 08329720 #### [facility] [address] [place] [address] Monocytes/100 WBC (Bld) 5.5 % Normal 4.0-14.0 [facility] Comment on above: Order Comment: Order Added by Kyle Expert. Performed By: #### 2 858953, 4547125, 5814826, 1404683, 9129300, 32116515, 07122205 #### [facility] [address] [place] [address] Monocytes/Leukocytes Auto (Bld) [Pure # fraction] 0.4 E9/L Normal 0.2-1.0 [facility] Comment on above: Order Comment: Order Added by Discern Expert. Performed By: #### 2 765103, 0427402, 8939832, 5187103, 2526678, 03745414, 40586191 #### [facility] [address] [place] [address] Neutrophils/100 WBC (Bld) 79.6 % High 36.0-75.0 [facility] Comment on above: Order Comment: Order Added by Kyle Expert. Performed By: #### 2 426468, 4335108, 5257067, 1153625, 3157266, 96766378, 14482093 #### [facility] [address] [place] [address] Neutrophils/Leukocyt es Auto (Bld) [Pure # fraction] 5.5 E9/L Normal 2.0-7.5 [facility] Comment on above: Order Comment: Order Added by Discern Expert. Performed By: #### 2 108979, 9262632, 4571920, 5667062, 4891606, 19086217, 97111691 #### [facility] [address] [place] [address] B hCG Qualon 06-23-2023 Beta hCG Ql Negative Normal [facility] Comment on above: Performed By: #### 2 107816, 1197678, 4467381, 9217839, 2895437, 75358680, 96309634 ####[facility] [address] [place] [address] BMPon 06-23-2023 Creatinine [Mass/Vol] 1.1 mg/dL Normal 0.5-1.3 [facility] Comment on above: Performed By: #### 2 848810, 3831214, 4795528, 6917902, 1981981, 55004350, 36190710 ####[facility] [address] [place] [address] Urea nitrogen [Mass/Vol] 17 mg/dL Normal 5-21 [facility] Comment on above: Performed By: #### 2 406794, 2278540, 9771618, 8486727, 9606536, 32392585, 73894629 ####[facility] [address] [place] [address] Urea nitrogen/Creatinine [Mass ratio] 16 No Units Normal 10-20 [facility] Comment on above: Performed By: #### 2 495974, 5491184, 5422267, 8802620, 1988989, 42539648, 88230196 ####[facility] [address] [place] [address] Anion gap [Moles/Vol] 9 mmol/L Normal 6-16 [facility] Comment on above: Performed By: #### 2 058689, 5310760, 6088897, 0978109, 8877803, 88628256, 32543794 ####[facility] [address] [place] [address] Calcium [Mass/Vol] 8.8 mg/dL Low 8.9-11.1 [facility] Comment on above: Performed By: #### 2 926473, 2207584, 9491783, 3933933, 0746244, 72215454, 69300554 ####[facility] [address] [place] [address] Chloride [Moles/Vol] 111 mmol/L Normal 101-111 [facility] Comment on above: Performed By: #### 2 528732, 2123070, 8256465, 3759380, 2386501, 46428598, 55538650 ####[facility] [address] [place] [address] CO2 [Moles/Vol] 18 mmol/L Low 21-31 [facility] Comment on above: Performed By: #### 2 757536, 0888845, 2052964, 8901919, 9335699, 42308045, 94139265 ####[facility] [address] [place] [address] Glucose [Mass/Vol] 142 mg/dL Normal 55-199 [facility] Comment on above: Result Comment: If t his glucose result represents a fasting glucose, interpretation should refer to the following reference range: 55-99 mg/dL Performed By: #### 2 301389, 3731049, 6448291, 7974157, 9938771, 02761471, 16590247 ####[facility] [address] [place] [address] Potassium [Moles/Vol] 3.9 mmol/L Normal 3.5-5.3 [facility] Comment on above: Performed By: #### 2 550431, 5281891, 5998156, 1308785, 9967432, 25207953, 49702092 ####[facility] [address] [place] [address] Sodium [Moles/Vol] 134 mmol/L Low 135-145 [facility] Comment on above: Performed By: #### 2 162518, 6755251, 5358666, 6634516, 6693718, 68095419, 35209150 ####[facility] [address] [place] [address] CBC w/ Auto Diffon Erythrocyte distribution width (RBC) [Ratio] 12.3 % Normal 10.9-14.2 [facility] Comment on above: Performed By: #### 2 283925, 6123797, 7873866, 5523603, 1751371, 14129802, 27204860 #### [facility] [address] [place] [address] Hematocrit (Bld) [Volume fraction] 38.3 % Normal 34.0-46.0 [facility] Comment on above: Performed By: #### 2 162213, 5687441, 7232310, 8345314, 6312757, 10595639, 71657895 #### [facility] [address] [place] [address] Hemoglobin (Bld) [Mass/Vol] 13.1 g/dL Normal 12.0-16.0 [facility] Comment on above: Performed By: #### 2 768798, 6470143, 1296604, 3024417, 3356191, 17473444, 50560367 #### [facility] [address] [place] [address] MCH (RBC) [Entitic mass] 31.4 pg Normal 27.0-34.0 [facility] Comment on above: Performed By: #### 2 901498, 7046178, 7253124, 8995829, 6295418, 09620418, 28650153 #### [facility] [address] [place] [address] MCHC (RBC) [Mass/Vol] 34.2 g/dL Normal 31.4-36.0 [facility] Comment on above: Performed By: #### 2 391190, 9163658, 3362525, 6008256, 7111586, 46234927, 62346900 #### [facility] [address] [place] [address] MCV (RBC) [Entitic vol] 91.8 fL Normal 80.0-100.0 [facility] Comment on above: Performed By: #### 2 788246, 0712472, 6389095, 2111287, 0370614, 61592060, 38742723 #### [facility] [address] [place] [address] Platelet mean volume (Bld) [Entitic vol] 8.8 fL Normal 6.4-10.8 [facility] Comment on above: Performed By: #### 2 026665, 3363536, 3980870, 6757019, 8238095, 19040894, 88526270 #### [facility] [address] [place] [address] Platelets (Bld) [#/Vol] 201.0 E9/L Normal 150.0-500. 0 [facility] Comment on above: Performed By: #### 2 270068, 3636158, 8161073, 2447728, 8547527, 32106122, 92545989 #### [facility] [address] [place] [address]146 RBC (Bld) [#/Vol] 4.2 E12/L Low 4.3-5.9 [facility] Comment on above: Performed By: #### 2 464221, 2199610, 5476077, 0800629, 4058254, 87955616, 01929629 #### [facility] [address] [place] [address] WBC corrected for nucl RBC Auto (Bld) [#/Vol] 6.9 E9/L Normal 4.0-11.0 [facility] Comment on above: Performed By: #### 2 409637, 5792767, 4253281, 9621582, 9000706, 58547696, 47044277 #### [facility] [address] [place] [address] CHEMISTRYOrdered By: SYSTEM SYSTEM on 06-23-2023 Albumin [Mass/Vol] 3.5 g/dL Normal 3.3 - 5.0 gm/dL [facility] Albumin/Globulin [Mass ratio] 1.1 {ratio} Normal 1.1 - 2.2 [facility] ALP [Catalytic activity/Vol] 77 [iU]/d Normal 21 - 98 Int._Unit/ L [facility] ALT No additional P-5'-P [Catalytic activity/Vol] 17 [iU]/d Normal 6 - 46 Int._Unit/ L [facility] AST [Catalytic activity/Vol] 22 [iU]/d Normal 5 - 43 Int._Unit/ L [facility] Bilirubin [Mass/Vol] 0.5 mg/dL Normal 0.0 - 1 .1 mg/dL [facility] Bilirubin.direct [Mass/Vol] 0.2 mg/dL Normal 0.1 - 0.4 mg/dL [facility] Bilirubin.indirect [Mass or moles/Vol] 0.3 mg/dL Normal 0.1 - 0.9 mg/dL [facility] Creatinine [Mass/Vol] 1.1 mg/dL Normal 0.5 - 1.3 mg/dL [facility] GFR/1.73 sq M.predicted among non-blacks MDRD (S/P/Bld) [Vol rate/Area] 68 mL/min/1.73 m2 Normal >=59mL/min /1.73 m2 [facility] Comment on above: Interpretive Data: C hronic kidney disease could be indicated at eGFR's of less than 60 mL/min/1.73m2. Kidney failure is indicated at less than 15 mL/min/1.73m2. Globulin (S) [Mass/Vol] 3.3 g/dL Normal 1.4 - 4.0 gm/dL [facility] Protein [Mass/Vol] 6.8 g/dL Normal 6.0 - 7.8 gm/dL [facility] Urea nitrogen [Mass/Vol] 17 mg/dL Normal 5 - 21 mg/dL [facility] Urea nitrogen/Creatinine [Mass ratio] 16 mg/mg Normal 10 - 20 [facility] Anion gap [Moles/Vol] 9 mmol/L Normal 6 - 16 mEq/L [facility] Calcium [Mass/Vol] 8.8 mg/dL Low 8.9 - 11. 1 mg/dL [facility] Chloride [Moles/Vol] 111 mmol/L Normal 101 - 1 11 mmol/L [facility] CO2 [Moles/Vol] 18 mmol/L Low 21 - 31 mmol/L [facility] Glucose [Mass/Vol] 142 mg/dL Normal 55 - 199 mg/dL [facility] Comment on above: Interpretive Data: I f this glucose result represents a fasting glucose, interpretation should refer to the following reference range: 55-99 mg/dL Lipase [Catalytic activity/Vol] 28 U/L Normal 13 - 58 unit/L [facility] Potassium [Moles/Vol] 3.9 mmol/L Normal 3.5 - 5.3 mmol/L [facility] Sodium [Moles/Vol] 134 mmol/L Low 135 - 145 mmol/L [facility] Consent for Treatmenton 06-08 Consent for Treatment [id number] Normal [facility] Discharge Instructionson Discharge Instructions [id number]#1.00TIFF Normal [facility] ED Clinical Summaryon 2022 ED Clinical Summary (Inserted Image. Zenaida ble to display) [place] [address] ED Clinical Summary Person Information Name: AZUL ONTIVEROS Vilma/[facility] Age: 32 Years : 1990 Sex: Female Language: Irish PCP: TEZ ANGEL MD Marital Status: Single [...] 06/23/2023 12:53:50 06/23/2023 12:53:50 06/23/2023 12:53:50 ADDRESS: [address] [place] [phone] PHYS DOC NOTES: MEDICAL INFORMATION: Prescriptions Given: [...] up: With: Address: When: Michael Patino [address], [address], [place] [address] [place] [address] [phone] Business (1) In 3 days 06/26/2023 With: Address: When: TEZ ANGEL [address] [place], [place] [phone] Business (1) In 3 days 06/26/2023 DIAGNOSIS: Gastritis Normal [facility] ED Note-Physicianon 06-23-20 ED Note-Physician Basic Information Time Seen: Jean MONGEAlexx 06/23/2023 09:28 Chief Complaint Patient presents with [...] Oral, QID Follow-up With When Contact Information Rodriguez Ashishanny In 3 days 06/26/2023 EDT [address], [address] [phone] Business (1) Additional Instructions: TEZ ANGEL In 3 days 06/26/2023 EDT [address] [place] [address] Business (1) Additional Instructions: Patient Education Gastritis, Adult Attestation Patient seen and evaluated by the physician operational assistant. Attending physician was present in the emergency department and supervised care. This visit was performed by both the physician and an APC. I performed all aspects of the MDM as documented. This report was transcribed using voice recognition software. Every effort was made to ensure accuracy, however, inadvertently computerized gamemaster mistakes may be present. Appropriate healthcare PPE [...] Positive dilut (more content not included)... Normal [facility] Comment on above: Result Comment: Elec tronically [...] medicines. These include steroids, antibiotics, and some xenv-azz-cockmel medicines, such as aspirin or ibuprofen. ? [...] these instructions at home: Medicines ? Take hatc-won-cssrlpm and prescription medicines only as told by [...] your stom (more content not included)... Normal [facility] ED Patient Summaryon 023 ED Patient Summary (Inserted Image. Zenaida ble to display) [address] [address] Patient Discharge Instructions Person Information Name: AZUL ONTIVEROS Age: 32 Years Arrival Date: 06/23/2023 09:19:14 Discharge Diagnosis: Gastritis Primary Care Physician: TEZ ANGEL MD Provider Information Primary Provider: Alexx Pena DO Advanced [place] Loader:Alban Givens PA-C The exam and treatment you received in the Emergency Department were for an urgent problem and are not intended as complete care. It is important that you follow up with a doctor, nurse practitioner, or physician?s operational assistant for ongoing care. If your symptoms become worse or you do not improve as expected and you are unable to reach your usual health care provider, you should return to the Emergency Department. We are available 24 hours a day. AZUL ONTIVEROS has been given the following list of patient education materials, prescriptions and follow-up instructions: Follow-up Instructions: With: Address: When: Michael Patino [address] [place] [address], [facility] [address] [phone] Business (1) In 3 days 06/26/2023 With: Address: When: TEZ ANGEL [address] [place], [place] [phone] Business (1) In 3 days 06/26/2023 In the event that this physician does not participate in your insurance network, please consult with your insurance company to find a nearby participating provider. Patient Education Materials: Gastritis, Adult A MESSAGE TO ALL PATIENTS REGARDING OPIOIDS PRESCRIPTION OPIOIDS: WHAT YOU NEED TO KNOW Prescription opioids can be used to help relieve lwphzlsj-hl-nzapri pain and are often prescribed following a [...] struggling wit (more content not included)... Normal [facility] HEMATOLOGYOrdered By: SYSTEM SYSTEM on 06-23-2023 Basophils/100 WBC (Bld) 0.4 % Normal 0.0 - 2.0 % [facility]eAutoSS Basophils/Leukocytes Auto (Bld) [Pure # fraction] 0.0 E9/L Normal 0.0 - 0.2 E9/L [facility]eAutoSS Eosinophils/100 WBC (Bld) 0.6 % Normal 0.0 - 8.0 % [facility] Eosinophils/Leukocyt es Auto (Bld) [Pure # fraction] 0.0 E9/L Normal 0.0 - 0.5 E9/L [facility] Lymphocytes/100 WBC (Bld) 13.9 % Low 14.0 - 50.0 % [facility] Lymphocytes/Leukocyt es Auto (Bld) [Pure # fraction] 1.0 E9/L Normal 1.0 - 4.0 E9/L [facility] Monocytes/100 WBC (Bld) 5.5 % Normal 4.0 - 14.0 % [facility] Monocytes/Leukocytes Auto (Bld) [Pure # fraction] 0.4 E9/L Normal 0.2 - 1.0 E9/L [facility] Neutrophils/100 WBC (Bld) 79.6 % High 36.0 - 75.0 % [facility] Neutrophils/Leukocyt es Auto (Bld) [Pure # fraction] 5.5 E9/L Normal 2.0 - 7.5 E9/L [facility] HEMATOLOGYOrdered By: Dinorah Ruiz on 06-23-2023 Erythrocyte distribution width (RBC) [Ratio] 12.3 % Normal 10.9 - 14.2 % [facility] Hematocrit (Bld) [Volume fraction] 38.3 % Normal 34.0 - 46.0 % [facility] Hemoglobin (Bld) [Mass/Vol] 13.1 g/dL Normal 12.0 - 16.0 gm/dL [facility] MCH (RBC) [Entitic mass] 31.4 pg Normal 27.0 - 34.0 pg [facility] MCHC (RBC) [Mass/Vol] 34.2 g/dL Normal 31.4 - 36.0 gm/dL [facility] MCV (RBC) [Entitic vol] 91.8 fL Normal 80.0 - 100.0 fL [facility] Platelet mean volume (Bld) [Entitic vol] 8.8 fL Normal 6.4 - 10.8 fL [facility] Platelets (Bld) [#/Vol] 201.0 E9/L Normal 150.0 - 500.0 E9/L [facility] RBC (Bld) [#/Vol] 4.2 E12/L Low 4.3 - 5.9 E12/L [facility] WBC corrected for nucl RBC Auto (Bld) [#/Vol] 6.9 E9/L Normal 4.0 - 11.0 E9/L [facility] Hep Func Panelon 06-23-2023 Albumin [Mass/Vol] 3.5 g/dL Normal 3.3-5.0 [facility] Comment on above: Performed By: #### 2 169000, [id number], 3229711, 8524252, 9462469, 37377177, [id number] ####[facility] [address] [place] [address] Albumin/Globulin (S) [Mass conc ratio] 1.1 Normal 1.1-2.2 [facility] Comment on above: Performed By: #### 2 505296, 8774206, 7701465, 6954903, 7384917, 40980434, [id number] ####[facility] [address] [place] [address] ALP [Catalytic activity/Vol] 77 Int._Unit/L Normal 21-98 [facility] Comment on above: Performed By: #### 2 742412, 6708178, 6399206, 8858161, 0815845, 11728276, 23485363 ####[facility] [address] [place] [address] ALT No additional P-5'-P [Catalytic activity/Vol] 17 Int._Unit/L Normal 6-46 [facility] Comment on above: Performed By: #### 2 831661, 2802863, 1742838, 1537407, 2206025, 10143046, 07465644 ####[facility] [address] [place] [address] AST [Catalytic activity/Vol] 22 Int._Unit/L Normal 5-43 [facility] Comment on above: Performed By: #### 2 612973, 6242009, 7761045, 2469326, 7909367, 57836653, 52272207 ####[address] [address] Bilirubin [Mass/Vol] 0.5 mg/dL Normal 0.0-1.1 [facility] Comment on above: Performed By: #### 2 144758, 8928504, 3744448, 3845243, 7699893, 92488997, 52512202 ####[address] [place] [address] Bilirubin.direct [Mass/Vol] 0.2 mg/dL Normal 0.1-0.4 [facility] Comment on above: Performed By: #### 2 177221, 6001181, 8456179, 2890384, 2133264, 57205330, 52417024 ####[address] [place] [address] Bilirubin.indirect [Mass or moles/Vol] 0.3 mg/dL Normal 0.1-0.9 [facility] Comment on above: Performed By: #### 2 892016, 7101494, 0536052, 2229839, 0807802, 13883676, 07673372 ####[facility] [address] [place] [address] Globulin (S) [Mass/Vol] 3.3 g/dL Normal 1.4-4.0 [facility] Comment on above: Performed By: #### 2 737623, 2688772, 3563900, 9088061, 9930186, 81075031, 65781915 ####[facility] [address] [place] [address] Protein [Mass/Vol] 6.8 g/dL Normal 6.0-7.8 [facility] Comment on above: Performed By: #### 2 349749, 0146345, 4194500, 3508072, 2985042, 08329915, 01814512 ####[facility] [address] [place] [address] Lipase Levelon 06-23-2023 Lipase [Catalytic activity/Vol] 28 U/L Normal 13-58 [facility] Comment on above: Performed By: #### 2 635565, 1461424, 6162254, 5797051, 4665287, 55799204, 37231476 #### [facility] [address] [place] [address] SEROLOGYOrdered By: Tami Randle on 06-23-2023 Beta hCG Ql Negative (06/23/23 10:07 AM) Normal [facility] Man Sero UA With Cult Reflexon 2022 Bacteria LM Ql (Urine sed) TRACE Normal Trace [facility] Comment on above: Performed By: #### 1 [id number] #### [facility] [address] [place] [address] Bilirubin Ql (U) Negative Normal Negative [facility] Comment on above: Performed By: #### 1 [id number] #### [facility] [address] [place] [address] Clarity (U) SL CLOUDY Invalid Interpretation Code [facility] Comment on above: Performed By: #### 1 [id number] #### [facility] [address] [place] [address] Color (U) RED Abnormal Yellow [facility] Comment on above: Performed By: #### 1 [id number] #### [facility] [address] [place] [address] Epithelial cells.squamous LM.HPF (Urine sed) [#/Area] 3-4 Normal 0-2 [facility] Comment on above: Performed By: #### 1 [id number] #### [facility] [address] [place] [address] Glucose Test strip (U) [Mass/Vol] Negative Normal Negative [facility] Comment on above: Performed By: #### 1 3231082 #### [facility] [address] [place] [address] Hemoglobin Ql (U) 3+ Abnormal Negative [facility] Comment on above: Performed By: #### 1 4274028 #### [facility] [address] [place] [address] Ketones (U) [Mass/Vol] Negative Normal Negative [facility] Comment on above: Performed By: #### 1 1457179 #### [facility] [address] [place] [address] Mcalmont.plasma/Lithi um.RBC (Bld) [Mass ratio] >75 Abnormal 0-3 [facility] Comment on above: Performed By: #### 1 4378026 #### [facility] [address] [place] [address] Mucus Ql (Urine sed) TRACE Normal [facility] Comment on above: Performed By: #### 1 [id number] #### [facility] [address] [place] [address] Nitrite Ql (U) Negative Normal Negative [facility] Comment on above: Performed By: #### 1 [id number] #### [facility] [address] [place] [address] pH (U) 6.0 [pH] Invalid Interpretation Code 5.0-9.0 [facility] Comment on above: Performed By: #### 1 6312751 #### [facility] [address] [place] [address] Protein (U) [Mass/Vol] 1+ Abnormal Negative [facility] Comment on above: Performed By: #### 1 8580910 #### [facility] [address] [place] [address] Specific gravity (U) [Rel density] <=1.005 Invalid Interpretation Code 1.005-1.03 0 [facility] Comment on above: Performed By: #### 1 0765829 #### [facility] [address] [place] [address] Type of Urine collection method Clean Catch Normal [facility] Comment on above: Performed By: #### 1 [id number] #### [facility] [address] [place] [address] Urobilinogen Qn (U) 0.2 {Stevenson'U}/dL Normal 0.0-1.0 [facility] Comment on above: Performed By: #### 1 8739654 #### [facility] [address] [place] [address] WBC Auto Ql (U) Negative Normal Negative [facility] Comment on above: Performed By: #### 1 8411617 #### [facility] [address] [place] [address] WBC LM.HPF (Urine sed) [#/Area] 0-5 Normal 0-5 [facility] Comment on above: Performed By: #### 1 1472950 #### [facility] [address] [place] [address] URINALYSISOrdered By: Dinorah Randle on 06-23-2023 Bacteria LM Ql (Urine sed) Trace /HPF Normal Trace/HPF [facility]A Auto SS Bilirubin Ql (U) Negative (06/23/23 11:23 AM) Normal Negative [facility]A Auto SS Clarity (U) SL CLOUDY Invalid Interpretation Code [facility] SS Color (U) Red *ABN* (06/23/23 11:23 AM) Invalid Interpretation Code Yellow [facility] Auto SS Epithelial cells.squamous LM.HPF (Urine sed) [#/Area] 3-4 /HPF Normal 0-2/HPF [facility] UA Auto SS Glucose Test strip (U) [Mass/Vol] Negative (06/23/23 11:23 AM) Normal Negative [facility] Auto SS Hemoglobin Ql (U) 3+ *ABN* (06/23/23 11:23 AM) Invalid Interpretation Code Negative [facility]A Auto SS Ketones (U) [Mass/Vol] Negative (06/23/23 11:23 AM) Normal Negative [facility] UA Auto SS Mcalmont.plasma/Lithi um.RBC (Bld) [Mass ratio] >75 /HPF Invalid Interpretation Code 0-3/HPF [facility] UA Auto SS Mucus Ql (Urine sed) Trace (06/23/23 11:23 AM) Normal [facility] UA Auto SS Nitrite Ql (U) Negative (06/23/23 11:23 AM) Normal Negative [facility] UA Auto SS pH (U) 6.0 *NA* (06/23/23 11:23 AM) Invalid Interpretation Code 5.0 - 9.0 [facility] UA Auto SS Protein (U) [Mass/Vol] 1+ *ABN* (06/23/23 11:23 AM) Invalid Interpretation Code Negative [facility] UA Auto SS Specific gravity (U) [Rel density] <=1.005 *NA* (06/23/23 11:23 AM) Invalid Interpretation Code 1.005 - 1.030 [facility] UA Auto SS UA Spec Desc Clean Catch (06/23/23 11:23 AM) Normal [facility] UA Auto SS Urobilinogen Qn (U) 0.2226952 {Stevenson'U}/dL Normal 0.0 - 1.0 EU/dL [facility] UA Auto SS WBC Auto Ql (U) Negative (06/23/23 11:23 AM) Normal Negative [facility] UA Auto SS WBC LM.HPF (Urine sed) [#/Area] 0-5 /HPF Normal 0-5/HPF [facility] UA Auto SS XR Chest Single Viewon [...] mGy = na DAP = na Normal [facility] eGFRon 06-23-2023 GFR/1.73 sq M.predicted among non-blacks MDRD (S/P/Bld) [Vol rate/Area] 68 mL/min/1.73 m2 Normal >=59 [facility] Comment on above: Order Comment: Order added by Discern Expert. Result Comment: Auto [employer] Service Mechanic jaden kidney disease could be indicated at eGFR's of less than 60 mL/min/1.73m2. Kidney failure is indicated at less than 15 mL/min/1.73m2. Performed By: #### 2 [id number], 4025661, 4697393, 3621239, 9573408, 90811586, 31514350 ####[facility] [id number] TSHon 01-09-2023 TSH 1.192 uIU/mL Normal 0.358-3.74 0 [facility] Comment on above: Performed By: #### T SH #### [facility] [address] [address] [address] Gage Mathis PAP ACOG PANEL 2: 30 to 65on 01-08-2023 . . [facility] Comment on above: Result Comment: Perf ormed at: WB Performed By: #### L IVER, LIPID, TSH, FT3, BMP #### [facility] [id number] Gage Mathis Age Gdln ACOG Testing 30-65 [facility] Comment on above: Performed By: #### L IVER, LIPID, TSH, FT3, BMP #### [facility] [id number] Gage Mathis DIAGNOSIS: Comment [facility] Comment on above: Result Comment: NEGA TIVE FOR INTRAEPITHELIAL LESION OR MALIGNANCY. THIS SPECIMEN WAS RESCREENED PART OF OUR VALVE FITTER PROGRAM. Performed at: WB Performed By: #### L IVER, LIPID, TSH, FT3, BMP #### [facility] [address] [address] [address] Gage Mathis HPV Aptima Negative Normal Negative [facility] Comment on above: Result Comment: This nucleic acid amplification test detects fourteen high-risk HPV types (16,18,31,33,35,39,45,51,52,56,58,59,66,68) without differentiation. Performed at: =G Performed By: #### L IVER, LIPID, TSH, FT3, BMP #### [facility] [address] [address] [address] Gage Mathis HPV Genotype Reflex Comment Normal [facility] Comment on above: Result Comment: Crit eria not met, HPV Genotype not performed. Performed at: WB Performed By: #### L IVER, LIPID, TSH, FT3, BMP #### [facility] [address] [place] [address] Dr. Gage Mathis Methodology: Comment Normal [facility] Comment on above: Result Comment: This liquid based ThinPrep(R) pap test was screened with the use of an image guided system. Performed at: WB Performed By: #### L IVER, LIPID, TSH, FT3, BMP #### [facility] [address] [address] [address] Gage Mathis Note: Comment Normal [facility] Comment on above: Result Comment: The Pap [...] L IVER, LIPID, TSH, FT3, BMP #### [facility] [address] [address] [address] Gage Mathis Performed by: Comment Normal [facility] Comment on above: Result Comment: Zoya Davis, Digital Music Instructor (ASCP) Performed at: WB Performed By: #### L IVER, LIPID, TSH, FT3, BMP #### [facility] [address] [place] [address] Dr. Gage Mathis QC reviewed by: Comment Normal [facility] Comment on above: Result Comment: Clotilde Suresh, Supervisory Digital Music Instructor (ASCP) Performed at: WB Performed By: #### L IVER, LIPID, TSH, FT3, BMP #### [facility] [address] [place] [address] Dr. Gage Mathis Specimen adequacy: Comment Normal [facility] Comment on above: Result Comment: Sati sfactory for evaluation. Endocervical and/or squamous metaplastic cells (endocervical component) are present. Performed at: WB Performed By: #### L IVER, LIPID, TSH, FT3, BMP #### [facility] [address] [place] [address] Dr. Gage Mathis CBC AUTO DIFFon 12-04-2022 BASO # 0.0 103/ul Normal 0.0-0.1 [facility] Comment on above: Performed By: #### L IVER, LIPID, TSH, FT3, BMP #### [facility] [address] [place] [address] Dr. Gage Mathis Basophils/100 WBC (Bld) 0.4 % Normal 0.2-2.0 [facility] Comment on above: Performed By: #### L IVER, LIPID, TSH, FT3, BMP #### [facility] [address] [place] [address] Dr. Gage Mathis EO # 0.1 103/ul Normal 0.0-0.7 [facility] Comment on above: Performed By: #### L IVER, LIPID, TSH, FT3, BMP #### [facility] [address] [place] [address] Dr. Gage Mathis Eosinophils/100 WBC (Bld) 1.3 % Normal 0.9-7.0 [facility] Comment on above: Performed By: #### L IVER, LIPID, TSH, FT3, BMP #### [facility] [address] [place] [address] Dr. Gage Mathis Erythrocyte distribution width (RBC) [Ratio] 12.4 % Normal 11.0-15.0 [facility] Comment on above: Performed By: #### L IVER, LIPID, TSH, FT3, BMP #### [facility] [address] [place] [address] Dr. Gage Mathis Hematocrit (Bld) [Volume fraction] 37.1 % Normal 36.0-48.0 [facility] Comment on above: Performed By: #### L IVER, LIPID, TSH, FT3, BMP #### [facility] [address] [place] [address] Dr. Gage Mathis Hemoglobin (Bld) [Mass/Vol] 12.1 g/dL Normal 12.0-16.0 [facility] Comment on above: Performed By: #### L IVER, LIPID, TSH, FT3, BMP #### [facility] [address] [place] [address] Dr. Gage Mathis IG # 0.01 10e3/ul Normal 0.00-0.03 [facility] Comment on above: Performed By: #### L IVER, LIPID, TSH, FT3, BMP #### [facility] [address] [place] [address] Dr. Ggae Mathis IG % 0.2 % Normal 0.0-0.5 [facility] Comment on above: Performed By: #### L IVER, LIPID, TSH, FT3, BMP #### [facility] [address] [place] [address] Dr. Gage Mathis LYMPH # 1.6 103/ul Normal 1.2-3.8 [facility] Comment on above: Performed By: #### L IVER, LIPID, TSH, FT3, BMP #### [facility] [address] [place] [address] Dr. Gage Mathis Lymphocytes/100 WBC (Bld) 30.6 % Normal 20.5-60.0 [facility] Comment on above: Performed By: #### L IVER, LIPID, TSH, FT3, BMP #### [facility] [address] [place] [address] Dr. Gage Mathis MANUAL DIFF REQ NO Normal [facility] Comment on above: Performed By: #### L IVER, LIPID, TSH, FT3, BMP #### [facility] [address] [place] [address] Dr. Gage Mathis MCH (RBC) [Entitic mass] 31.8 pg Normal 26.7-34.0 [facility] Comment on above: Performed By: #### L IVER, LIPID, TSH, FT3, BMP #### [facility] [address] [place] [address] Dr. Gage Mathis MCHC (RBC) [Mass/Vol] 32.6 g/dL Normal 29.9-35.2 [facility] Comment on above: Performed By: #### L IVER, LIPID, TSH, FT3, BMP #### [facility] [address] [place] [address] Dr. Gage Mathis MCV (RBC) [Entitic vol] 97.4 fL Normal 81.0-99.0 [facility] Comment on above: Performed By: #### L IVER, LIPID, TSH, FT3, BMP #### [facility] [address] [place] [address] Dr. Gage Mathis MONO # 0.4 103/ul Normal 0.3-0.8 [facility] Comment on above: Performed By: #### L IVER, LIPID, TSH, FT3, BMP #### [facility] [address] [place] [address] Dr. Gage Mathis Monocytes/100 WBC (Bld) 8.4 % Normal 1.7-12.0 [facility] Comment on above: Performed By: #### L IVER, LIPID, TSH, FT3, BMP #### [facility] [address] [place] [address] Dr. Gage Mathis NEUT # 3.1 103/ul Normal 1.4-6.5 [facility] Comment on above: Performed By: #### L IVER, LIPID, TSH, FT3, BMP #### [facility] [address] [place] [address] Dr. Gage Mathis Neutrophils/100 WBC (Bld) 59.1 % Normal 43.0-75.0 [facility] Comment on above: Performed By: #### L IVER, LIPID, TSH, FT3, BMP #### [facility] [address] [place] [address] Dr. Gage Mathis Platelet mean volume (Bld) [Entitic vol] 10.1 fL Normal 9.5-13.5 [facility] Comment on above: Performed By: #### L IVER, LIPID, TSH, FT3, BMP #### [facility] [address] [place] [address] Dr. Gage Mathis PLT 205 103/ul Normal 150-450 [facility] Comment on above: Performed By: #### L IVER, LIPID, TSH, FT3, BMP #### [facility] [address] [place] [address] Dr. Gage Mathis RBC 3.81 106/ul Critically low 4.20-5.40 [facility] Comment on above: Performed By: #### L IVER, LIPID, TSH, FT3, BMP #### [facility] [address] [place] [address] Dr. Gage Mathis WBC 5.2 103/ul Normal 4.0-11.0 [facility] Comment on above: Performed By: #### L IVER, LIPID, TSH, FT3, BMP #### [facility] [address] [place] [address] Dr. Gage Mathis FREE T4on 12-04-2022 Free T4 [Mass/Vol] 0.98 ng/dL Normal 0.76-1.46 [facility] Comment on above: Performed By: #### L IVER, LIPID, TSH, FT3, BMP #### [facility] [address] [place] [address] Dr. Gage aMthis GLYCOHEMOGLOBIN A1Con 2022 ADA RECOMMENDATION SEE BELOW Normal [facility] Comment on above: Result Comment: ADA RECOMMENDED LIMIT 4.0 - 6.0 ADA THERAPEUTIC TARGET < 7.0 ACTION SUGGESTED > 7.0 Performed By: #### L IVER, LIPID, TSH, FT3, BMP #### [facility] [address] [place] [address] Dr. Gage Mathis Glucose [Mass/Vol] 100 mg/dL Normal [facility] Comment on above: Performed By: #### L IVER, LIPID, TSH, FT3, BMP #### [facility] [address] [place] [address] Dr. Gage Mathis HbA1c (Bld) [Mass fraction] 5.1 % Normal 4.5-6.2 [facility] Comment on above: Performed By: #### L IVER, LIPID, TSH, FT3, BMP #### [facility] [address] [place] [address] Dr. Gage Mathis PREG QUANT HCGon 12-04-2022 HCG QUANT <1 Normal [facility] Comment on above: Performed By: #### L IVER, LIPID, TSH, FT3, BMP #### [facility] [address] [place] [address] Dr. Gage Mathis HCG RANGE SEE BELOW Normal [facility] Comment on above: Result Comment: 5-50 0.2-1 WEEK 50-500 1-2 WEEKS 100-5,000 2-3 WEEKS 500-10,000 3-4 WEEKS 1,000-50,000 4-5 WEEKS 10,000-100,000 5-6 WEEKS 15,000-200,000 6-8 WEEKS 10,000-100,000 2-3 MONTHS Performed By: #### L IVER, LIPID, TSH, FT3, BMP #### [facility] [address] [place] [address] Dr. Gage Mathis PROTIMEon 12-04-2022 INR Coag (PPP) [Relative time] 0.94 {INR} Normal [facility] Comment on above: Performed By: #### L IVER, LIPID, TSH, FT3, BMP #### [facility] [address] [place] [address] Dr. Gage Mathis INR GUIDELINES SEE BELOW Normal [facility] Comment on above: Result Comment: KALEB RED INR: 2.0 - 3.0 CONDITIONS NOT LISTED BELOW 2.5 - 3.5 FOR PROSTHETIC HEART VALVE REPLACEMENT 2.5 - 3.5 RECURRENT THROMBOSIS Performed By: #### L IVER, LIPID, TSH, FT3, BMP #### [facility] [address] [place] [address] Dr. Gage Mathis PT Coag (PPP) [Time] 10.0 s Normal 9.0-11.6 [facility] Comment on above: Performed By: #### L IVER, LIPID, TSH, FT3, BMP #### [facility] [address] [place] [address] Dr. Gage Mathis PTTon 12-04-2022 aPTT Coag (Bld) [Time] 28.1 s Normal 22.3-36.2 [facility] Comment on above: Performed By: #### L IVER, LIPID, TSH, FT3, BMP #### [facility] [address] [place] [address] Dr. Gage Mathis TSHon 12-04-2022 TSH 4.110 uIU/mL Critically high 0.358-3.74 0 [facility] Comment on above: Performed By: #### L IVER, LIPID, TSH, FT3, BMP #### [facility] [address] [place] [address] Dr. Gage Mathis CBC AUTO DIFFon 10-09-2022 BASO # 0.0 103/ul Normal 0.0-0.1 [facility] Comment on above: Performed By: #### C BC #### [facility] [address] [place] [address] Dr. Gage Mathis Basophils/100 WBC (Bld) 0.1 % Critically low 0.2-2.0 [facility] Comment on above: Performed By: #### C BC #### [facility] [address] [place] [address] Dr. Gage Mathis EO # 0.0 103/ul Normal 0.0-0.7 [facility] Comment on above: Performed By: #### C BC #### [facility] [address] [place] [address] Dr. Gage Mathis Eosinophils/100 WBC (Bld) 0.0 % Critically low 0.9-7.0 [facility] Comment on above: Performed By: #### C BC #### [facility] [address] [place] [address] Dr. Gage Mathis Erythrocyte distribution width (RBC) [Ratio] 13.0 % Normal 11.0-15.0 [facility] Comment on above: Performed By: #### C BC #### [facility] [address] [place] [address] Dr. Gage Mathis Hematocrit (Bld) [Volume fraction] 38.6 % Normal 36.0-48.0 [facility] Comment on above: Performed By: #### C BC #### [facility] [address] [place] [address] Dr. Gage Mathis Hemoglobin (Bld) [Mass/Vol] 12.4 g/dL Normal 12.0-16.0 [facility] Comment on above: Performed By: #### C BC #### [facility] [address] [place] [address] Dr. Gage Mathis IG # 0.05 10e3/ul Critically high 0.00-0.03 [facility] Comment on above: Performed By: #### C BC #### [facility] [address] [place] [address] Dr. Gage Mathis IG % 0.5 % Normal 0.0-0.5 [facility] Comment on above: Performed By: #### C BC #### [facility] [address] [place] [address] Dr. Gage Mathis LYMPH # 2.8 103/ul Normal 1.2-3.8 [facility] Comment on above: Performed By: #### C BC #### [facility] [address] [place] [address] Dr. Gage Mathis Lymphocytes/100 WBC (Bld) 26.2 % Normal 20.5-60.0 [facility] Comment on above: Performed By: #### C BC #### [facility] [address] [place] [address] Dr. Gage Mathis MANUAL DIFF REQ NO Normal [facility] Comment on above: Performed By: #### C BC #### [facility] [address] [place] [address] Dr. Gage Mathis MCH (RBC) [Entitic mass] 32.0 pg Normal 26.7-34.0 [facility] Comment on above: Performed By: #### C BC #### [facility] [address] [place] [address] Dr. Gage Mathis MCHC (RBC) [Mass/Vol] 32.1 g/dL Normal 29.9-35.2 [facility] Comment on above: Performed By: #### C BC #### [facility] [address] [place] [address] Dr. Gage Mathis MCV (RBC) [Entitic vol] 99.5 fL Critically high 81.0-99.0 [facility] Comment on above: Performed By: #### C BC #### [facility] [address] [place] [address] Dr. Gage Mathis MONO # 0.6 103/ul Normal 0.3-0.8 [facility] Comment on above: Performed By: #### C BC #### [facility] [address] [place] [address] Dr. Gage Mathis Monocytes/100 WBC (Bld) 5.5 % Normal 1.7-12.0 [facility] Comment on above: Performed By: #### C BC #### [facility] [address] [place] [address] Dr. Gage Mathis NEUT # 7.1 103/ul Critically high 1.4-6.5 [facility] Comment on above: Performed By: #### C BC #### [facility] [address] [place] [address] Dr. Gage Mathis Neutrophils/100 WBC (Bld) 67.7 % Normal 43.0-75.0 [facility] Comment on above: Performed By: #### C BC #### [facility] [address] [place] [address] Dr. Gage Mathis Platelet mean volume (Bld) [Entitic vol] 10.0 fL Normal 9.5-13.5 [facility] Comment on above: Performed By: #### C BC #### [facility] [address] [place] [address] Dr. Gage Mathis PLT 271 103/ul Normal 150-450 [facility] Comment on above: Performed By: #### C BC #### [facility] [address] [place] [address] Dr. Gage Mathis RBC 3.88 106/ul Critically low 4.20-5.40 [facility] Comment on above: Performed By: #### C BC #### [facility] [address] [place] [address] Dr. Gage Mathis WBC 10.5 103/ul Normal 4.0-11.0 [facility] Comment on above: Performed By: #### C BC #### [facility] [address] [place] [address] Dr. Gage Mathis FREE T3on 10-09-2022 FREE T3 1.64 pg/mlL Critically low 2.18-3.98 [facility] Comment on above: Performed By: #### L IVER, LIPID, TSH, FT3, BMP #### [facility] [address] [place] [address] Dr. Gage Mathis FREE T4on 10-09-2022 Free T4 [Mass/Vol] 1.01 ng/dL Normal 0.76-1.46 [facility] Comment on above: Performed By: #### F T4 #### [facility] [address] [place] [address] Dr. Gage Mathis GLYCOHEMOGLOBIN A1Con 2022 ADA RECOMMENDATION SEE BELOW Normal [facility] Comment on above: Result Comment: ADA RECOMMENDED LIMIT 4.0 - 6.0 ADA THERAPEUTIC TARGET < 7.0 ACTION SUGGESTED > 7.0 Performed By: #### L IVER, LIPID, TSH, FT3, BMP #### [facility] [address] [place] [address] Dr. Gage Mathis Glucose [Mass/Vol] 100 mg/dL Normal [facility] Comment on above: Performed By: #### L IVER, LIPID, TSH, FT3, BMP #### [facility] [address] [place] [address] Dr. Gage Mathis HbA1c (Bld) [Mass fraction] 5.1 % Normal 4.5-6.2 [facility] Comment on above: Performed By: #### L IVER, LIPID, TSH, FT3, BMP #### [facility] [address] [place] [address] Dr. Gage Mathis LIPID PROFILEon 10-09-2022 CHOL-HDL RATIO NORM SEE BELOW Normal [facility] Comment on above: Result Comment: 3.3 - 4.4 LOW RISK 4.4 - 7.1 AVERAGE RISK 7.1 - 11.0 MODERATE RISK >11.0 HIGH RISK Performed By: #### L IVER, LIPID, TSH, FT3, BMP #### [facility] [address] [place] [address] Dr. Gage Mathis Cholesterol [Mass/Vol] 162 mg/dL Normal <=200 [facility] Comment on above: Performed By: #### L IVER, LIPID, TSH, FT3, BMP #### [facility] [address] [place] [address] Dr. Gage Mathis Cholesterol in HDL [Mass/Vol] 78 mg/dL Critically high 40-60 [facility] Comment on above: Performed By: #### L IVER, LIPID, TSH, FT3, BMP #### [facility] [address] [place] [address] Dr. Gage Mathis Cholesterol in LDL [Mass/Vol] 72.8 mg/dL Normal [facility] Comment on above: Performed By: #### L IVER, LIPID, TSH, FT3, BMP #### [facility] [address] [place] [address] Dr. Gage Mathis Cholesterol.total/Ch olesterol in HDL [Mass ratio] 2.1 {ratio} Normal [facility] Comment on above: Performed By: #### L IVER, LIPID, TSH, FT3, BMP #### [facility] [address] [address] [address] Gage Mathis HDL NORMAL > or = 60 mg/dl - LO W CARDIOVASCULAR RISK <40 mg/dl - HIGH CARDIOVASCULAR RISK Normal [facility] Comment on above: Performed By: #### L IVER, LIPID, TSH, FT3, BMP #### [facility] [address] [address] [address] Gage Mathis LDL CALC NORMAL SEE BELOW Normal [facility] Comment on above: Result Comment: <100 mg/dl OPTIMAL 100 - 129 mg/dl NEAR OR ABOVE OPTIMAL 130 - 159 mg/dl BORDERLINE HIGH 160 - 189 mg/dl HIGH >190 mg/dl VERY HIGH Performed By: #### L IVER, LIPID, TSH, FT3, BMP #### [facility] [address] [place] [address] Dr. Gage Mathis Triglyceride [Mass/Vol] 56 mg/dL Normal <=150 [facility] Comment on above: Performed By: #### L IVER, LIPID, TSH, FT3, BMP #### [facility] [address] [place] [address] Dr. Gage Mathis VLDL CALC 11.2 mg/dL Normal [facility] Comment on above: Performed By: #### L IVER, LIPID, TSH, FT3, BMP #### [facility] [address] [place] [address] Dr. Gage Mathis LIVER PROFILEon 10-09-2022 Albumin [Mass/Vol] 3.2 g/dL Critically low 3.4-5.0 [facility] Comment on above: Performed By: #### L IVER, LIPID, TSH, FT3, BMP #### [facility] [address] [place] [address] Dr. Gage Mathis Albumin/Globulin [Mass ratio] 0.9 {ratio} Normal [facility] Comment on above: Performed By: #### L IVER, LIPID, TSH, FT3, BMP #### [facility] [address] [place] [address] Dr. Gage Mathis ALP [Catalytic activity/Vol] 89 U/L Normal 46-116 [facility] Comment on above: Performed By: #### L IVER, LIPID, TSH, FT3, BMP #### [facility] [address] [place] [address] Dr. Gage Mathis ALT [Catalytic activity/Vol] 49 U/L Normal 14-59 [facility] Comment on above: Performed By: #### L IVER, LIPID, TSH, FT3, BMP #### [facility] [address] [place] [address] Dr. Gage Mathis AST [Catalytic activity/Vol] 15 U/L Normal 15-37 [facility] Comment on above: Performed By: #### L IVER, LIPID, TSH, FT3, BMP #### [facility] [address] [place] [address] Dr. Gage Mathis BILI, CONJUGATED 0.1 mg/dL Normal 0.0-0.2 [facility] Comment on above: Performed By: #### L IVER, LIPID, TSH, FT3, BMP #### [facility] [address] [place] [address] Dr. Gage Mathis Bilirubin [Mass/Vol] 0.3 mg/dL Normal 0.2-1.0 [facility] Comment on above: Performed By: #### L IVER, LIPID, TSH, FT3, BMP #### [facility] [address] [place] [address] Dr. Gage Mathis Globulin (S) [Mass/Vol] 3.7 g/dL Normal [facility] Comment on above: Performed By: #### L IVER, LIPID, TSH, FT3, BMP #### [facility] [address] [place] [address] Dr. Gage Mathis Protein [Mass/Vol] 6.9 g/dL Normal 6.4-8.2 [facility] Comment on above: Performed By: #### L IVER, LIPID, TSH, FT3, BMP #### [facility] [address] [place] [address] Dr. Gage Mathis PROF CHEM 8 (BAS METB)on Anion gap [Moles/Vol] 12.1 mmol/L Normal [facility] Comment on above: Performed By: #### L IVER, LIPID, TSH, FT3, BMP #### [facility] [address] [address] [address] Gage Mathis Calcium [Mass/Vol] 9.0 mg/dL Normal 8.5-10.1 [facility] Comment on above: Performed By: #### L IVER, LIPID, TSH, FT3, BMP #### [facility] [address] [place] [address] Dr. Gage Mathis Chloride [Moles/Vol] 104 mmol/L Normal 98-107 [facility] Comment on above: Performed By: #### L IVER, LIPID, TSH, FT3, BMP #### [facility] [address] [place] [address] Dr. Gage Mathis CO2 [Moles/Vol] 29.6 mmol/L Normal 21.0-32.0 [facility] Comment on above: Performed By: #### L IVER, LIPID, TSH, FT3, BMP #### [facility] [address] [place] [address] Dr. Gage Mathis Creatinine [Mass/Vol] 0.82 mg/dL Normal 0.55-1.02 [facility] Comment on above: Performed By: #### L IVER, LIPID, TSH, FT3, BMP #### [facility] [address] [place] [address] Dr. Gage Mathis EGFR-AF AUSTRIAN >60 Normal >=60 [facility] Comment on above: Performed By: #### L IVER, LIPID, TSH, FT3, BMP #### [facility] [address] [place] [address] Dr. Gage Mathis EGFR-NON AF AUSTRIAN >60 Normal >=60 [facility] Comment on above: Performed By: #### L IVER, LIPID, TSH, FT3, BMP #### [facility] [address] [place] [address] Dr. Gage Mathis Glucose [Mass/Vol] 92 mg/dL Normal 74-106 [facility] Comment on above: Performed By: #### L IVER, LIPID, TSH, FT3, BMP #### [facility] [address] [place] [address] Dr. Gage Matihs Potassium [Moles/Vol] 3.7 mmol/L Normal 3.5-5.1 [facility] Comment on above: Performed By: #### L IVER, LIPID, TSH, FT3, BMP #### [facility] [address] [place] [address] Dr. Gage Mathis Sodium [Moles/Vol] 142 mmol/L Normal 136-145 [facility] Comment on above: Performed By: #### L IVER, LIPID, TSH, FT3, BMP #### [facility] [address] [place] [address] Dr. Gage Mathis Urea nitrogen [Mass/Vol] 14.0 mg/dL Normal 7.0-18.0 [facility] Comment on above: Performed By: #### L IVER, LIPID, TSH, FT3, BMP #### [facility] [address] [place] [address] Dr. Gage Mathis Urea nitrogen/Creatinine [Mass ratio] 17.1 mg/mg Normal [facility] Comment on above: Performed By: #### L IVER, LIPID, TSH, FT3, BMP #### [facility] [address] [place] [address] Dr. Gage Mathis TSHon 10-09-2022 TSH 1.637 uIU/mL Normal 0.358-3.74 0 [facility] Comment on above: Performed By: #### L IVER, LIPID, TSH, FT3, BMP #### [facility] [address] [place] [address] Dr. Gage Mathis VITAMIN D 25 OHon 10-09-2022 VIT D 25-OH 41.1 ng/mL Normal [facility] Comment on above: Performed By: #### V ITAD #### [facility] [address] [place] [address] Dr. Gage Mathis VIT D RANGES SEE BELOW Normal [facility] Comment on above: Result Comment: <20 ng/mL Vit D deficient 20 - <30 ng/mL Vit D insufficient 30 - 100 ng/mL Vit D sufficient >100 ng/mL Potential Toxicity Performed By: #### V ITAD #### [facility] [address] [address] [address] Gage Mathis COVID/FLU RT-PCRon 3 SARS-CoV-2 (COVID-19) RNA EB+probe Ql (Unsp spec) Negative [employer] Other COVID/FLU RT-PCR Negative [facility] S[employer] Other COVID Quick Testingon 2021 Result Negative [employer] Other US PELVIS AND TRANSVAGon US PELVIS [...] for patient's symptoms. Electronically authenticated by: BING NOE Date: 2022-05-02 17:47 Normal [facility] CHLAMYDIA/GONOCOCCUS EB (SW AB/URINE/PAPon 04-11-2022 Chlamydia trachomatis, EB Negative Normal Negative [facility] Comment on above: Performed By: #### L IVER, LIPID, TSH, FT3, BMP #### [facility] [address] [place], [place] [address] Dr. Gage Mathis Neisseria gonorrhoeae, EB Negative Normal Negative [facility] Comment on above: Performed By: #### L IVER, LIPID, TSH, FT3, BMP #### [facility] [address] [address] [address] Gage Mathis VAGINITIS/VAGINOSIS DNA PROB Sincere 04-10-2022 Sol species Negative Normal Negative [facility] Comment on above: Performed By: #### V AGINT #### [facility] [address] [address] [address] Gage Mathis Gardnerella vaginalis Positive Abnormal Negative [facility] Comment on above: Performed By: #### V AGINT #### [facility] [address] [address] [address] Gage Mathis Trichomonas vaginalis Negative Normal Negative [facility] Comment on above: Performed By: #### V AGINT #### [facility] [address] [place] [address] Dr. Gage Mathis Basic Metabolic Panlon 08-06 Anion gap 3 molar conc 14 mmol/L Normal 9-18 [facility] Comment on above: Performed By: #### B MP, HFP ####[facility] [phone] Calcium mass conc 9.2 mg/dL Normal 8.5-10.2 [facility] Comment on above: Performed By: #### B MP, HFP ####[facility] [place] [phone] Chloride molar conc 103 mmol/L Normal 97-105 [facility] Comment on above: Performed By: #### B MP, HFP ####[facility] [phone] CO2 molar conc 24 mmol/L Normal 22-30 [facility] Comment on above: Performed By: #### B MP, HFP ####[facility], [place] [phone] Creatinine mass conc 0.83 mg/dL Normal 0.58-0.96 [facility] Comment on above: Performed By: #### B MP, [facility] ####[facility] [place], [place] [phone] eGFR- Amer. >60 Normal [facility] Comment on above: Performed By: #### B MP, HFP ####[address] [phone] GFR/1.73 sq M predicted among non-blacks MDRD vol rate/area (S/P/Bld) mL/min/{1.73_m2} Normal [facility] Comment on above: Result Comment: eGFR (Estimated [...] actual GFR. Performed By: #### B BRYANNA, [facility] ####[address] [phone] Glucose mass conc 82 mg/dL Normal 74-99 [facility] Comment on above: Result Comment: The [place] Diabetes Association (ADA) provides guidance for cutoff [...] Standards of Medical Care in Diabetes 2016, [place] [employer]. Diabetes Care. 2016.39(Suppl 1). Performed By: #### B BRYANNA, HFP ####[address] [place] [phone] Potassium molar conc 4.3 mmol/L Normal 3.7-5.1 [facility] Comment on above: Performed By: #### B MP, HFP ####[facility] [place], [place] [phone] Sodium molar conc 141 mmol/L Normal 136-144 [facility] Comment on above: Performed By: #### B MP, HFP ####[facility] [address] [place], [place] [phone] Urea nitrogen mass conc 14 mg/dL Normal 7-21 [facility] Comment on above: Performed By: #### B MP, HFP ####[facility] [place], [place] [phone] CNOVSPon 08-06-2018 CNOVSP Visit (SP) Office (HEMACL) AZUL ONTIVEROS ([id number]) 1990 [facility] Time Provider Welqjkjxhk26/29/18 3:30 PM SHANT ROMERO During your visit today, we recorded the following information about you: Temperature Pulse Respiration Blood pressure 98.8 degrees 87/minute 16/minute 128/77 Weight Height 123.2 kg 1.524 Kirstie Romero MD 08/06/2018 3:44 PM SignedHPDavina Allen is a 28 year old female who presents in follow up. Shewas referred to [facility] as Dr Castro was considering BCP's. Her mother had a embolicCVA on OCP's. The patient has never had any clotting, thrombotic or bleedingissues. A hypercoag panel was done [facility] which was negative. She does smoke.There was [...] of 3).Alfred THAKKAR, et al. Chest 2012, 141:7S-47SNishimlouise RA, et al. [facility] 2017, 70: 252-289 APTT 23.0 - 32.4 [...] oflaboratory APTT reagent in use throughout the [facility]. Platelet Neut Negative Negative Negative DRVVT Screen 32.7 - 46.7 sec 35.1 36.1 42.3 DRVVT Confirm Ratio <1.21 1.10 <1.21 class= rz_g [id number] >0.91 <1.21 class= rz_6 [id number] >1.06 DRVVT 1:1 Mix 32.7 - 46.7 sec 33.9 36.2 41.3 Hex Phase Screen 45.0 - 59.9 sec 34.7 54.5 Hex Phase Confirm 41.8 - 54.9 sec 32.6 47.7 Hex Phase Delta <9.1 delta sec 2.1 <9.1 delta sec class= rz_6 [id number] >6.7 APTT Screen 24.4 - 33.4 sec 24.3 33.0CM Immediate PTT 1:1 Mix <33.2 sec 26.3 <33.2 sec class= rz_6 [id number] >30.6 Incubated PTT 1:1 Mix <35.0 sec 28.3 <35.0 sec class= rz_6 [id number] >32.4 Thrombin Time <18.6 sec 17.7 <18.6 sec class= rz_6 [id number] >16.1 Interpretation(Lupus Anticoagulant) (NOTE) (NOTE)CMComment: Performing Pathologist: [...] GPL <9 <9CMComment: <10 GPL ? ? [id number] GPL ? Equivocal>40 GPL ? ? PositiveThe following results were obtained with the Selerova ArchiturnA Lite LAVON IgG IIIELISA. Cardiolipin IgG values obtained with the different manufacturers' assay?methods may not be used interchangeably. The magnitude of the reported IgGlevels cannot be correlated to an endpoint titer. Cardiolipin Ab, IgM 0 - 11 MPL <9 9CMComment: <12 MPL ? ? Mulbxtcb02-22 MPL ? Equivocal>40 MPL ? ? PositiveThe following results were obtained with the Inova QUANTA Lite LAVON IgM IIIELISA. Cardiolipin IgM values obtained with different manufacturers' assaymethods may not be used interchangeably. The magnitude of the reported IgMlevels cannot be correlated to an endpoint titer. Cardiolipin Ab, IgA 0 - 11 APL <9 <9CMComment: <12 APL ? ? Uhydmfbs02-58 APL ? Equivocal>40 APL ? ? PositiveThe following results were obtained with an Inova QUANTA Lite LAVON IgA IIIELISA. Cardiolipin IgA values obtained with different manufacturers' assaymethods may not be used interchangeably. The magnitude of the reported IgAlevels cannot be correlated to an endpoint titer. Beta 2 Glycoprotein, IgG <20 SGU <9 <20 SGU class= rz_6 [id number] ><9CMComment: < 20 ?SGU ? ?Unepsmbj16-59 SGU ? ?Low Positive> 80 ?SGU ? ?High PositiveThese results were obtained with the LuvocracyA Lite B2 GPI IgG DAYNA. B2GPI IgG values obtained with different manufacturers' assay methods may not be?used interchangeably. The magnitude of the reported IgG levels cannot becorrelated to an endpoint titer. Beta 2 Glycoprotein, IgM <20 SMU <9 <20 SMU class= rz_6 [id number] ><9CMComment: < 20 ?SMU ? ?Fgijpkec14-52 SMU ? ?Low Positive> 80 ?SMU ? ?High PositiveThese results were obtained with the [employer] QUANTA Lite B2 GPI IgM DAYNA. B2GPI IgM values obtained with different manufacturers' assay methods may not be?used interchangeably. The magnitude of the reported IgM levels cannot becorrelated to an endpoint titer.FACTOR V LEIDEN/PCROrder: [id number]: Final result ??Visible to patient: No (Not Released) Next appt: NoneDx: Positive dilute Idalia's viper venom...Component 3mo agoFactor V Leiden PCR Report (NOTE)Comment: Performing Pathologist: Alvina Sotomayor M.D., Ph.D.Factor V Leiden Mutation Result: NORMALHOMOCYSTEINEOrder: [id number]: Final result ??Visible to patient: No (Not Released) Next appt: NoneDx: Positive dilute Idalia's viper venom... Ref Range AND Units 3mo agoHomocysteine, Serum <15.1 umol/L 9.5Resulting Agency CCMSpecimen Collected: 04/20/18 ?2:22 PM Last Resulted: 04/21/18 ?1:31 PM LabFlowsheet Order Details View Encounter Lab and Collection Details RoutingResult HistoryOther Results from 04/20/2018FACTOR V LEIDEN/PCROrder: [id number]: Final result ??Visible to patient: No (Not [...] and Collection Details RoutingResult HistoryPROTHROMBIN GENE PCROrder: [id number]: Final result ??Visible to patient: No (Not Released) Next appt: NoneDx: Positive dilute Idalia's viper venom...Component 3mo agoPT Gene Report (NOTE)Comment: Performing Pathologist: Alvina Sotomayor M.D., Ph.D.PT Gene Mutation Result: NORMAL ?PT Gene Mutation Interpretation: The DNA sample is negative for [id number] point mutation in the 3' untranslated region [...] and Collection Details RoutingResult HistoryPROTEIN S CLOTTABLEOrder: [id number]: Final result ??Visible to patient: No (Not Released) Next appt: NoneDx: Positive dilute Idalia's viper venom... Ref Range AND Units 3mo agoProtein S Clottable 59 - 131 % 108Resulting Agency CCMSpecimen Collected: 04/20/18 ?2:22 PM Last Resulted: 04/21/18 ?9:13 AM LabFlowsheet Order Details View Encounter Lab and Collection Details RoutingResult HistoryPROTEIN C FUNCTOrder: [id number]: Final result ??Visible to patient: No (Not Released) Next appt: NoneDx: Positive dilute Idalia's viper venom... Ref Range AND Units 3mo agoPro C Fun 76 - 147 % 104Resulting Agency CCMSpecimen Collected: 04/20/18 ?2:22 PM Last Resulted: 04/21/18 ?9:13 AM LabFlowsheet Order Details View Encounter Lab and Collection Details RoutingResult HistoryANTITHROMBIN IIIOrder: [id number]: Final result ??Visible to patient: No (Not Released) Next appt: NoneDx: Positive dilute Idalia's viper venom... Ref Range AND Units 3mo agoAntithrombin Assay 84 - 138 % 93Resulting Agency CCMSpecimen Collected: 04/20/18 ?2:22 PM Last Resulted: 04/21/18 ?9:13 AM LabFlowsheet Order Details View Encounter Lab and Collection Details RoutingResult HistoryLUPUS ANTICOAG PLOrder: [id number]: Final result ??Visible to patient: No (Not [...] of 2.5 to 3.5 (target INR of 3).Darianyatt GH, et al. Chest 2012, 141:7S-47SNishimura RA, et al. JAC 2017, 70: 252-289APTT 23.0 [...] oflaboratory APTT reagent in use throughout the [facility].Platelet Neut Negative NegativeDRVVT Screen 32.7 [...] 9 GPL <9Comment: <10 GPL ? ? [id number] GPL ? Equivocal>40 GPL ? ? PositiveThe following results were obtained with the Pinpoint MD QUANTA Lite LAVON IgG IIIELISA. Cardiolipin IgG values obtained with the different manufacturers' assay?methods may not be used interchangeably. The magnitude of the reported IgGlevels cannot be correlated to an endpoint titer.Cardiolipin Ab, IgM 0 - 11 MPL 9Comment: <12 MPL ? ? Fnzrpdqz22-82 MPL ? Equivocal>40 MPL ? ? PositiveThe following results were obtained with the [employer] QUANTA Lite LAVON IgM IIIELISA. Cardiolipin IgM values obtained with different manufacturers' assaymethods may not be used interchangeably. The magnitude of the reported IgMlevels cannot be correlated to an endpoint titer.Cardiolipin Ab, IgA 0 - 11 APL <9Comment: <12 APL ? ? Igjvkwpz83-45 APL ? Equivocal>40 APL ? ? PositiveThe following results were obtained with an [employer]ova QUANTA Lite LAVON IgA IIIELISA. Cardiolipin IgA values obtained with different manufacturers' assaymethods may not be used interchangeably. The magnitude of the reported IgAlevels cannot be correlated to an endpoint titer.Beta 2 Glycoprotein, IgG <20 SGU <9Comment: < 20 ?SGU ? ?Nsomyqke98-99 SGU ? ?Low Positive> 80 ?SGU ? ?High PositiveThese results were obtained with the [employer] MD QUANTA Lite B2 GPI IgG DAYNA. B2GPI IgG values obtained with different manufacturers' assay methods may not be?used interchangeably. The magnitude of the reported IgG levels cannot becorrelated to an endpoint titer.Beta 2 Glycoprotein, IgM <20 SMU <9Comment: < 20 ?SMU ? ?Xswpdqkl72-61 SMU ? ?Low Positive> 80 ?SMU ? ?High PositiveThese results were obtained with the [employer] QUANTA Lite B2 GPI IgM DAYNA. B2GPI IgM values obtained with different manufacturers' assay methods may not be?used interchangeably. The magnitude of the reported IgM levels cannot becorrelated to an endpoint titer.Resulting Agency CCMSpecimen Collected: 04/20/18 ?2:22 PM Last Resulted: 04/21/18 ?6:40 PM LabFlowsheet Order Details View Encounter Lab and Collection Details RoutingResult HistoryANA PANEL BLOOD SCRNOrder: [id number]: Final result ??Visible to patient: No (Not [...] thenormal for population. No indication for intervention needed.Shant Romero, YEeferring Provider: LATASHA HU [[id number]]Allergies As of Date: 08/06/2018 Noted Allergy ReactionIODINE [...] by SHANT ROMERO MD on 08/06/18 Normal [facility] Hepatic Functn Panelon 08-06 Albumin mass conc 4.2 g/dL Normal 3.9-4.9 [facility] Comment on above: Performed By: #### B BRYANNA, HFP ####[facility], [place] [phone] ALP enzyme act/vol 75 U/L Normal 34-123 [facility] Comment on above: Performed By: #### B BRYANNA, HFP ####[facility], [place] [phone] ALT enzyme act/vol 21 U/L Normal 7-38 [facility] Comment on above: Performed By: #### B BRYANNA, HFP ####[id number] [place], [place] [phone] AST enzyme act/vol 21 U/L Normal 13-35 [facility] Comment on above: Performed By: #### B MP, HFP ####[address] [phone] Bilirubin mass conc 0.3 mg/dL Normal 0.2-1.3 [facility] Comment on above: Performed By: #### B MP, HFP ####[address] [phone] Bilirubin,Conjugated <0.2 Normal <0.2 [facility] Comment on above: Performed By: #### B MP, HFP ####[address] [phone] Protein mass conc 7.3 g/dL Normal 6.3-8.0 [facility] Comment on above: Performed By: #### B MP, HFP ####[address] [phone] PROGRESSon 08-06-2018 Protein mass conc HNO ID: [id number] thor: Shant Quinonez: (none)Author Type: PhysicianType: Progress NotesFiled: 08/06/2018 3:44 PMNote Text:Keanu Allen is a 28 year old female [...] 3).Alfred THAKKAR, et al. Chest 2012, 141:7S-47SShelbie RA, et al. [facility] 2017, 70: 252-289 APTT 23.0 - 32.4 [...] lotoflaboratory APTT reagent in use throughout the [facility]. Platelet Neut Negative Negative Negative DRVVT Screen 32.7 - 46.7 sec 35.1 36.1 42.3 DRVVT Confirm Ratio <1.21 1.10 <1.21 class= rz_g [id number] >0.91 <1.21 class= rz_6 lek6431 >1.06 DRVVT 1:1 Mix 32.7 - 46.7 sec 33.9 36.2 41.3 Hex Phase Screen 45.0 - 59.9 sec 34.7 54.5 Hex Phase Confirm 41.8 - 54.9 sec 32.6 47.7 Hex Phase Delta <9.1 delta sec 2.1 <9.1 delta sec class= [id number] >6.7 APTT Screen 24.4 - 33.4 sec 24.3 33.0CM Immediate PTT 1:1 Mix <33.2 sec 26.3 <33.2 sec class= rz_6 cse7756 >30.6 Incubated PTT 1:1 Mix <35.0 sec 28.3 <35.0 sec class= rz_6 pdr2125 >32.4 Thrombin Time <18.6 sec 17.7 <18.6 sec class= rz_6 zzw4071 >16.1 Interpretation(Lupus Anticoagulant) (NOTE) (NOTE)CMComment: Performing Pathologist: [...] GPL <9 <9CMComment: <10 GPL ? ? [id number] GPL ? Equivocal>40 GPL ? ? PositiveThe following results were obtained with the Pinpoint MD QUANTA Lite LAVON IgG IIIELISA. Cardiolipin IgG values obtained with the different manufacturers'assay?method s may not be used interchangeably. The magnitude of the reportedIgGlevels cannot be correlated to an endpoint titer. Cardiolipin Ab, IgM 0 - 11 MPL <9 9CMComment: <12 MPL ? ? Smxmbpbc86-15 MPL ? Equivocal>40 MPL ? ? PositiveThe following results were obtained with the [employer] QUANTA Lite LAVON IgM IIIELISA. Cardiolipin IgM values obtained with different manufacturers' assaymethods may not be used interchangeably. The magnitude of the reported IgMlevels cannot be correlated to an endpoint titer. Cardiolipin Ab, IgA 0 - 11 APL <9 <9CMComment: <12 APL ? ? Vckdandg37-63 APL ? Equivocal>40 APL ? ? PositiveThe following results were obtained with an [employer] QUANTA Lite LAVON IgA IIIELISA. Cardiolipin IgA values obtained with different manufacturers' assaymethods may not be used interchangeably. The magnitude of the reported IgAlevels cannot be correlated to an endpoint titer. Beta 2 Glycoprotein, IgG <20 SGU <9 <20 SGU class= rz_6 srw3691 ><9CMComment: < 20 ?SGU ? ?Lqznbzah74-45 SGU ? ?Low Positive> 80 ?SGU ? ?High PositiveThese results were obtained with the [employer] QUANTA Lite B2 GPI IgG DAYNA.B2GPI IgG values obtained with different manufacturers' assay methods maynot be?used interchangeably. The magnitude of the reported IgG levels cannot becorrelated to an endpoint titer. Beta 2 Glycoprotein, IgM <20 SMU <9 <20 SMU class= rz_6 xgt7435 ><9CMComment: < 20 ?SMU ? ?Qujofqzc26-10 SMU ? ?Low Positive> 80 ?SMU ? ?High PositiveThese results were obtained with the [employer] QUANTA Lite B2 GPI IgM DAYNA.B2GPI IgM values obtained with different manufacturers' assay methods maynot be?used interchangeably. The magnitude of the reported IgM levels cannot becorrelated to an endpoint titer.FACTOR V LEIDEN/PCROrder: [id number]: Final result ??Visible to patient: No (Not Released) Next appt:None Dx: Positive dilute Idalia's viper venom...Component 3mo agoFactor V Leiden PCR Report (NOTE)Comment: Performing Pathologist: Alvina Sotomayor M.D., Ph.D.Factor V Leiden Mutation Result: NORMALHOMOCYSTEINEOrder: [id number]: Final result ??Visible to patient: No (Not Released) Next appt:None Dx: Positive dilute Idalia's viper venom... Ref Range AND Units 3mo agoHomocysteine, Serum <15.1 umol/L 9.5Resulting Agency CCMSpecimen Collected: 04/20/18 ?2:22 PM Last Resulted: 04/21/18 ?1:31 PM LabFlowsheet Order Details View Encounter Lab and Collection Details RoutingResult HistoryOther Results from 04/20/2018FACTOR V LEIDEN/PCROrder: [id number]: Final result ??Visible to patient: No (Not [...] and Collection Details RoutingResult HistoryPROTHROMBIN GENE PCROrder: [id number]: Final result ??Visible to patient: No (Not Released) Next appt:None Dx: Positive dilute Idalia's viper venom...Component 3mo agoPT Gene Report (NOTE)Comment: Performing Pathologist: Alvina Sotomayor M.D., Ph.D.PT Gene Mutation Result: NORMAL ?PT Gene Mutation Interpretation: The DNA sample is negative for [id number] point mutation in the 3' untranslated region [...] and Collection Details RoutingResult HistoryPROTEIN S CLOTTABLEOrder: [id number]: Final result ??Visible to patient: No (Not Released) Next appt:None Dx: Positive dilute Idalia's viper venom... Ref Range AND Units 3mo agoProtein S Clottable 59 - 131 % 108Resulting Agency CCMSpecimen Collected: 04/20/18 ?2:22 PM Last Resulted: 04/21/18 ?9:13 AM LabFlowsheet Order Details View Encounter Lab and Collection Details RoutingResult HistoryPROTEIN C FUNCTOrder: [id number]: Final result ??Visible to patient: No (Not Released) Next appt:None Dx: Positive dilute Idalia's viper venom... Ref Range AND Units 3mo agoPro C Fun 76 - 147 % 104Resulting Agency CCMSpecimen Collected: 04/20/18 ?2:22 PM Last Resulted: 04/21/18 ?9:13 AM LabFlowsheet Order Details View Encounter Lab and Collection Details RoutingResult HistoryANTITHROMBIN IIIOrder: [id number]: Final result ??Visible to patient: No (Not Released) Next appt:None Dx: Positive dilute Idalia's viper venom... Ref Range AND Units 3mo agoAntithrombin Assay 84 - 138 % 93Resulting Agency CCMSpecimen Collected: 04/20/18 ?2:22 PM Last Resulted: 04/21/18 ?9:13 AM LabFlowsheet Order Details View Encounter Lab and Collection Details RoutingResult HistoryLUPUS ANTICOAG PLOrder: [id number]: Final result ??Visible to patient: No (Not [...] al. Chest 2012, 141:7S-47SNishimura RA, et al. [facility] 2017, 70: 252-289APTT 23.0 - 32.4 sec [...] lotoflaboratory APTT reagent in use throughout the [facility].Platelet Neut Negative NegativeDRVVT Screen 32.7 - [...] 9 GPL <9Comment: <10 GPL ? ? [id number] GPL ? Equivocal>40 GPL ? ? PositiveThe following results were obtained with the [employer] QUANTA Lite LAVON IgG IIIELISA. Cardiolipin IgG values obtained with the different manufacturers'assay?method s may not be used interchangeably. The magnitude of the reportedIgGlevels cannot be correlated to an endpoint titer.Cardiolipin Ab, IgM 0 - 11 MPL 9Comment: <12 MPL ? ? Ylpvrynf36-88 MPL ? Equivocal>40 MPL ? ? PositiveThe following results were obtained with the [employer] QUANTA Lite LAVON IgM IIIELISA. Cardiolipin IgM values obtained with different manufacturers' assaymethods may not be used interchangeably. The magnitude of the reported IgMlevels cannot be correlated to an endpoint titer.Cardiolipin Ab, IgA 0 - 11 APL <9Comment: <12 APL ? ? Iynbmvuk26-17 APL ? Equivocal>40 APL ? ? PositiveThe following results were obtained with an [employer] QUANTA Lite LAVON IgA IIIELISA. Cardiolipin IgA values obtained with different manufacturers' assaymethods may not be used interchangeably. The magnitude of the reported IgAlevels cannot be correlated to an endpoint titer.Beta 2 Glycoprotein, IgG <20 SGU <9Comment: < 20 ?SGU ? ?Yueatryy49-30 SGU ? ?Low Positive> 80 ?SGU ? ?High PositiveThese results were obtained with the Pinpoint MD QUANTA Lite B2 GPI IgG DAYNA.B2GPI IgG values obtained with different manufacturers' assay methods maynot be?used interchangeably. The magnitude of the reported IgG levels cannot becorrelated to an endpoint titer.Beta 2 Glycoprotein, IgM <20 SMU <9Comment: < 20 ?SMU ? ?Nopmbtyx73-25 SMU ? ?Low Positive> 80 ?SMU ? ?High PositiveThese results were obtained with the Pin[employer] MD QUANTA Lite B2 GPI IgM DAYNA.B2GPI IgM values obtained with different manufacturers' assay methods maynot be?used interchangeably. The magnitude of the reported IgM levels cannot becorrelated to an endpoint titer.Resulting Agency CCMSpecimen Collected: 04/20/18 ?2:22 PM Last Resulted: 04/21/18 ?6:40 PM LabFlowsheet Order Details View Encounter Lab and Collection Details RoutingResult HistoryANA PANEL BLOOD SCRNOrder: [id number]: Final result ??Visible to patient: No (Not [...] indication for intervention needed.Shant Romero MD Normal [facility] Remote Abs Gran + CBC (for F HC use only)on 08-06-2018 Absol Gran Count 3.97 k/uL Normal 1.45-7.50 [facility] Erythrocyte distribution width Auto Ratio (RBC) 12.1 % Normal 11.5-15.0 [facility] Hematocrit Auto Volume Fraction (Bld) 35.6 % Low 36.0-46.0 [facility] Hemoglobin mass conc (Bld) 11.6 g/dL Normal 11.5-15.5 [facility] MCH Auto Entitic mass (RBC) 31.1 pG Normal 26.0-34.0 [facility] MCHC Auto mass conc (RBC) 32.6 g/dL Normal 30.5-36.0 [facility] MCV Auto Entitic volume (RBC) 95.4 fL Normal 80.0-100.0 [facility] Platelet mean volume Auto Entitic volume (Bld) 10.4 fL Normal 9.0-12.7 [facility] Platelets Auto #/vol (Bld) 211 10*3/uL Normal 150-400 [facility] RBC Auto #/vol (Bld) 3.73 10*6/uL Low 3.90-5.20 [facility] WBC Auto #/vol (Bld) 6.52 10*3/uL Normal 3.70-11.00 [facility] Basic Metabolic Panlon 07-28 Anion gap 3 molar conc 10 mmol/L Normal 9-18 [facility] Calcium mass conc 9.3 mg/dL Normal 8.5-10.2 [facility] Chloride molar conc 104 mmol/L Normal 97-105 [facility] CO2 molar conc 23 mmol/L Normal 22-30 [facility] Creatinine mass conc 0.70 mg/dL Normal 0.58-0.96 [facility] eGFR- Amer. >60 Normal [facility] GFR/1.73 sq M predicted among non-blacks MDRD vol rate/area (S/P/Bld) mL/min/{1.73_m2} Normal [facility] Comment on above: Result Comment: eGFR (Estimated [...] Glucose mass conc 101 mg/dL High 74-99 [facility] Potassium molar conc 4.0 mmol/L Normal 3.7-5.1 [facility] Sodium molar conc 137 mmol/L Normal 136-144 [facility] Urea nitrogen mass conc 12 mg/dL Normal 7-21 [facility] Hepatic Functn Panelon 07-28 Albumin mass conc 4.1 g/dL Normal 3.9-4.9 [facility] ALP enzyme act/vol 75 U/L Normal 34-123 [facility] ALT enzyme act/vol 16 U/L Normal 7-38 [facility] AST enzyme act/vol 14 U/L Normal 13-35 [facility] Bilirubin mass conc 0.3 mg/dL Normal 0.2-1.3 [facility] Bilirubin,Conjugated <0.2 Normal <0.2 [facility] Protein mass conc 7.2 g/dL Normal 6.3-8.0 [facility] Lupus Anticoag Panelon 07-28 aPTT Coag time (Bld) 24.3 s Low 24.4-33.4 [facility] Comment on above: Performed By: #### L UPUSP ####[facility] [address] [place], [place] [phone] aPTT Coag time (Bld) 26.3 s Normal <33.2 [facility] Comment on above: Performed By: #### L UPUSP ####[id number] [place], [place] [phone] aPTT Coag time (Bld) 21.8 s Low 23.0-32.4 [facility] Comment on above: Result Comment: Unfr actionated [...] laboratory APTT reagent in use throughout the [facility]. Performed By: #### L UPUSP ####[address] [phone] aPTT Coag time (Bld) 28.3 s Normal <35.0 [facility] Comment on above: Performed By: #### L UPUSP ####[address] [phone] Beta2 Glycoprot IgG <9 Normal <20 [facility] Comment on above: Result Comment: < 20 SGU Gjfnnkzt01-01 SGU Low Positive> 80 SGU High PositiveThese results were obtained with the Pinpoint MD QUANTA Lite B2 GPI IgG DAYNA. B2 GPI IgG values obtained with different manufacturers' assay methods may not be used interchangeably. The magnitude of the reported IgG levels cannot be correlated to an endpoint titer. Performed By: #### L UPUSP ####[address] [place], [place] [phone] DRVVT 1:1 Mix 33.9 sec Normal 32.7-46.7 [facility] Comment on above: Performed By: #### L UPUSP ####[facility] [address], [place] [phone] DRVVT Confirm Ratio 1.10 Normal <1.21 [facility] Comment on above: Performed By: #### L UPUSP ####[facility], [place] [phone] DRVVT Screen 35.1 sec Normal 32.7-46.7 [facility] Comment on above: Performed By: #### L UPUSP ####[place] [address], [place] [phone] Hex Phase Confirm 32.6 sec Low 41.8-54.9 [facility] Comment on above: Performed By: #### L UPUSP ####[place] [address], [place] [phone] Hex Phase Delta 2.1 delta sec Normal <9.1 [facility] Comment on above: Performed By: #### L UPUSP ####[place] [address], [place] [phone] Hex Phase Screen 34.7 sec Low 45.0-59.9 [facility] Comment on above: Performed By: #### L UPUSP ####[place] [address], [place] [phone] IgA Cardiolipin Ab. <9 Normal 0-11 [facility] Comment on above: Result Comment: <12 APL Rqtxxlmq35-06 APL Equivocal>40 APL PositiveThe following results were obtained with an Pinpoint MD QUANTA Lite LAVON IgA III DAYNA. Cardiolipin IgA values obtained with different manufacturers' assay methods may not be used interchangeably. The magnitude of the reported IgA levels cannot be correlated to an endpoint titer. Performed By: #### L UPUSP ####[place] [address], [place] [phone] IgG Cardiolipin Ab. <9 Normal 0-9 [facility] Comment on above: Result Comment: <10 GPL [id number] GPL Equivocal>40 GPL PositiveThe following results were obtained with the Pinpoint MD QUANTA Lite LAVON IgG III DAYNA. Cardiolipin IgG values obtained with the different manufacturers' assay methods may not be used interchangeably. The magnitude of the reported IgG levels cannot be correlated to an endpoint titer. Performed By: #### L UPUSP ####[facility] [place], [place] [phone] IgM Cardiolipin Ab. <9 Normal 0-11 [facility] Comment on above: Result Comment: <12 MPL Iuwjqgmh51-41 MPL Equivocal>40 MPL PositiveThe following results were obtained with the Pinpoint MD QUANTA Lite LAVON IgM III DAYNA. Cardiolipin IgM values obtained with different manufacturers' assay methods may not be used interchangeably. The magnitude of the reported IgM levels cannot be correlated to an endpoint titer. Performed By: #### L UPUSP ####[address] [phone] INR Coag RelTime (Bld) 1.1 {INR} Normal 0.9-1.3 [facility] Comment on above: Result Comment: Maya min K Antagonist (VKA) Therapeutic Range: INR 2 to 3 (Target INR of 2.5)Note: For patients treated with VKA drugs, such as warfarin, the [employer] [employer] 2012 Guideline recommends [...] 3).Alfred THAKKAR, et al. Chest 2012, 141:7S-47SShelbie RA, et al. JAC 2017, 70: 252-289 Performed By: #### L UPUSP ####[facility] [place], [place] [phone] Interpretation (NOTE) Normal [facility] Comment on above: Result Comment: [facility] Pathologist: Myesha Ellsworth MDInterpretation:No significant abnormalities - [...] 74:1185 (1995). Performed By: #### L UPUSP ####[address] [place], [place] [phone] PNP Negative Normal Negative [facility] Comment on above: Performed By: #### L UPUSP ####[facility] [place], [place] [phone] Protein mass conc g/dL Normal <20 [facility] Comment on above: Result Comment: < 20 SMU Qymhczqh69-42 SMU Low Positive> 80 SMU High PositiveThese results were obtained with the Pinpoint MD QUANTA Lite B2 GPI IgM DAYNA. B2 GPI IgM values obtained with different manufacturers' assay methods may not be used interchangeably. The magnitude of the reported IgM levels cannot be correlated to an endpoint titer. Performed By: #### L UPUSP ####[facility] [address] [place], [place] [phone] PT Sec 11.2 sec Normal 9.7-13.0 [facility] Comment on above: Performed By: #### L UPUSP ####[facility] [address] [place], [place] [phone] Thrombin Time 17.7 sec Normal <18.6 [facility] Comment on above: Performed By: #### L UPUSP ####[facility] [address] [place], [place] [phone] Remote Abs Gran + CBC (for F HC use only)on 07-28-2018 Absol Gran Count 4.19 k/uL Normal 1.45-7.50 [facility] Erythrocyte distribution width Auto Ratio (RBC) 12.4 % Normal 11.5-15.0 [facility] Hematocrit Auto Volume Fraction (Bld) 38.5 % Normal 36.0-46.0 [facility] Hemoglobin mass conc (Bld) 12.5 g/dL Normal 11.5-15.5 [facility] MCH Auto Entitic mass (RBC) 31.1 pG Normal 26.0-34.0 [facility] MCHC Auto mass conc (RBC) 32.5 g/dL Normal 30.5-36.0 [facility] MCV Auto Entitic volume (RBC) 95.8 fL Normal 80.0-100.0 [facility] Platelet mean volume Auto Entitic volume (Bld) 11.1 fL Normal 9.0-12.7 [facility] Platelets Auto #/vol (Bld) 193 10*3/uL Normal 150-400 [facility] RBC Auto #/vol (Bld) 4.02 10*6/uL Normal 3.90-5.20 [facility] WBC Auto #/vol (Bld) 6.67 10*3/uL Normal 3.70-11.00 [facility] Dilute RVVTon 07-08-2018 DRVVT 1:1 Mix 36.2 sec Normal 32.7-46.7 [facility] Comment on above: Performed By: #### D RVVT ####[facility], [place] [phone] DRVVT Confirm Ratio 0.91 Normal <1.21 [facility] Comment on above: Performed By: #### D RVVT ####[facility], [place] [phone] DRVVT Screen 36.1 sec Normal 32.7-46.7 [facility] Comment on above: Performed By: #### D RVVT ####[place] [id number], [place] [phone] ROSANA Panel 1on 04-20-2018 ROSANA by EIA 0.4 OD Ratio Normal [facility] Comment on above: Result Comment: OD R atio is interpreted as follows:Negative <1.0Positive >=1.0 Performed By: #### W SR, PRCFUN, AT3ASY, PRSCLT, SERIMM, HOMCYS, IRON, FERR, B12, SERFOL, ANA1, HSCRP ####[facility], [place] [phone] ROSANA by EIA, Qual Negative Normal Negative [facility] Comment on above: Performed By: #### W SR, PRCFUN, AT3ASY, PRSCLT, SERIMM, HOMCYS, IRON, FERR, B12, SERFOL, ANA1, HSCRP ####[facility], [place] [phone] Antithrombin Assayon 018 Antithrombin Assay 93 % Normal 84-138 [facility] Comment on above: Performed By: #### W SR, PRCFUN, AT3ASY, PRSCLT, SERIMM, HOMCYS, IRON, FERR, B12, SERFOL, ANA1, HSCRP ####[facility], [place] [phone] Comp Metabolic Panelon 04-20 Albumin mass conc 4.3 g/dL Normal 3.9-4.9 [facility] Comment on above: Performed By: #### W SR, PRCFUN, AT3ASY, PRSCLT, SERIMM, HOMCYS, IRON, FERR, B12, SERFOL, ANA1, HSCRP ####[place] [address], [place] [phone] ALP enzyme act/vol 98 U/L Normal 32-117 [facility] Comment on above: Performed By: #### W SR, PRCFUN, AT3ASY, PRSCLT, SERIMM, HOMCYS, IRON, FERR, B12, SERFOL, ANA1, HSCRP ####[place] [address] [phone] ALT enzyme act/vol 13 U/L Normal 7-38 [facility] Comment on above: Performed By: #### W SR, PRCFUN, AT3ASY, PRSCLT, SERIMM, HOMCYS, IRON, FERR, B12, SERFOL, ANA1, HSCRP ####[place] [phone] Anion gap 3 molar conc 9 mmol/L Normal 9-18 [facility] Comment on above: Performed By: #### W SR, PRCFUN, AT3ASY, PRSCLT, SERIMM, HOMCYS, IRON, FERR, B12, SERFOL, ANA1, HSCRP ####[place] [address], [place] [phone] AST enzyme act/vol 14 U/L Normal 13-35 [facility] Comment on above: Performed By: #### W SR, PRCFUN, AT3ASY, PRSCLT, SERIMM, HOMCYS, IRON, FERR, B12, SERFOL, ANA1, HSCRP ####[place] [address], [place] [phone] Bilirubin mass conc 0.2 mg/dL Normal 0.2-1.3 [facility] Comment on above: Performed By: #### W SR, PRCFUN, AT3ASY, PRSCLT, SERIMM, HOMCYS, IRON, FERR, B12, SERFOL, ANA1, HSCRP ####[place] [phone] Calcium mass conc 9.2 mg/dL Normal 8.5-10.2 [facility] Comment on above: Performed By: #### W SR, PRCFUN, AT3ASY, PRSCLT, SERIMM, HOMCYS, IRON, FERR, B12, SERFOL, ANA1, HSCRP ####[place] [phone] Chloride molar conc 102 mmol/L Normal 97-105 [facility] Comment on above: Performed By: #### W SR, PRCFUN, AT3ASY, PRSCLT, SERIMM, HOMCYS, IRON, FERR, B12, SERFOL, ANA1, HSCRP ####[place] [phone] CO2 molar conc 28 mmol/L Normal 22-30 [facility] Comment on above: Performed By: #### W SR, PRCFUN, AT3ASY, PRSCLT, SERIMM, HOMCYS, IRON, FERR, B12, SERFOL, ANA1, HSCRP ####[place] [phone] Creatinine mass conc 0.96 mg/dL Normal 0.58-0.96 [facility] Comment on above: Performed By: #### W SR, PRCFUN, AT3ASY, PRSCLT, SERIMM, HOMCYS, IRON, FERR, B12, SERFOL, ANA1, HSCRP ####[place] [phone] eGFR- Amer. >60 Normal [facility] Comment on above: Performed By: #### W SR, PRCFUN, AT3ASY, PRSCLT, SERIMM, HOMCYS, IRON, FERR, B12, SERFOL, ANA1, HSCRP ####[address] [phone] GFR/1.73 sq M predicted among non-blacks MDRD vol rate/area (S/P/Bld) mL/min/{1.73_m2} Normal [facility] Comment on above: Result Comment: eGFR (Estimated [...] HOMCYS, IRON, FERR, B12, SERFOL, ANA1, HSCRP ####[address] [phone] Glucose mass conc 103 mg/dL High 74-99 [facility] Comment on above: Performed By: #### W SR, PRCFUN, AT3ASY, PRSCLT, SERIMM, HOMCYS, IRON, FERR, B12, SERFOL, ANA1, HSCRP ####[address] [phone] Potassium molar conc 3.9 mmol/L Normal 3.7-5.1 [facility] Comment on above: Performed By: #### W SR, PRCFUN, AT3ASY, PRSCLT, SERIMM, HOMCYS, IRON, FERR, B12, SERFOL, ANA1, HSCRP ####[address] [phone] Protein mass conc 7.2 g/dL Normal 6.3-8.0 [facility] Comment on above: Performed By: #### W SR, PRCFUN, AT3ASY, PRSCLT, SERIMM, HOMCYS, IRON, FERR, B12, SERFOL, ANA1, HSCRP ####[place] [address] [address], [place] [phone] Sodium molar conc 139 mmol/L Normal 136-144 [facility] Comment on above: Performed By: #### W SR, PRCFUN, AT3ASY, PRSCLT, SERIMM, HOMCYS, IRON, FERR, B12, SERFOL, ANA1, HSCRP ####[place] [address], [place] [phone] Urea nitrogen mass conc 14 mg/dL Normal 7-21 [facility] Comment on above: Performed By: #### W SR, PRCFUN, AT3ASY, PRSCLT, SERIMM, HOMCYS, IRON, FERR, B12, SERFOL, ANA1, HSCRP ####[place] [address] [place], [place] [phone] Factor V Leiden PCRon 2017 FV Leiden Report (NOTE) Normal [facility] Comment on above: Result Comment: [facility] Pathologist: Alvina Sotomayor M.D., Ph.D.Factor V [...] hybridization probes. Performed By: #### F VLEI ####[place] [address] [place], [place] [phone] Ferritinon 04-20-2018 Ferritin [Mass/volume] in Serum or Plasma 53.7 ng/mL Normal 14.7-205.1 [facility] Comment on above: Performed By: #### W SR, PRCFUN, AT3ASY, PRSCLT, SERIMM, HOMCYS, IRON, FERR, B12, SERFOL, ANA1, HSCRP ####[place] [address], [place] [phone] Folate, Serumon 04-20-2018 Folate [Mass/volume] in Serum or Plasma 10.0 ng/mL Normal >4.7 [facility] Comment on above: Performed By: #### W SR, PRCFUN, AT3ASY, PRSCLT, SERIMM, HOMCYS, IRON, FERR, B12, SERFOL, ANA1, HSCRP ####[place] [address], [place] [phone] Homocysteineon 04-20-2018 Homocysteine 9.5 umol/L Normal <15.1 [facility] Comment on above: Performed By: #### W SR, PRCFUN, AT3ASY, PRSCLT, SERIMM, HOMCYS, IRON, FERR, B12, SERFOL, ANA1, HSCRP ####[place] [address] [address], [place] [phone] Immunoglobulins GAMon 2017 IgA mass conc 237 mg/dL Normal 78-391 [facility] Comment on above: Performed By: #### W SR, PRCFUN, AT3ASY, PRSCLT, SERIMM, HOMCYS, IRON, FERR, B12, SERFOL, ANA1, HSCRP ####[place] [address] [address], [place] [phone] IgG mass conc 1220 mg/dL Normal 717-1411 [facility] Comment on above: Performed By: #### W SR, PRCFUN, AT3ASY, PRSCLT, SERIMM, HOMCYS, IRON, FERR, B12, SERFOL, ANA1, HSCRP ####[place] [address], [place] [phone] IgM mass conc 139 mg/dL Normal 53-334 [facility] Comment on above: Performed By: #### W SR, PRCFUN, AT3ASY, PRSCLT, SERIMM, HOMCYS, IRON, FERR, B12, SERFOL, ANA1, HSCRP ####[address] [phone] Iron and TIBCon 04-20-2018 Iron mass conc 36 ug/dL Low 41-186 [facility] Comment on above: Performed By: #### W SR, PRCFUN, AT3ASY, PRSCLT, SERIMM, HOMCYS, IRON, FERR, B12, SERFOL, ANA1, HSCRP ####[address] [phone] TIBC 271 ug/dL Normal 232-386 [facility] Comment on above: Performed By: #### W SR, PRCFUN, AT3ASY, PRSCLT, SERIMM, HOMCYS, IRON, FERR, B12, SERFOL, ANA1, HSCRP ####[address] [phone] Transferrin Saturatn 13 % Low 15-57 [facility] Comment on above: Performed By: #### W SR, PRCFUN, AT3ASY, PRSCLT, SERIMM, HOMCYS, IRON, FERR, B12, SERFOL, ANA1, HSCRP ####[address] [phone] LDon 04-20-2018 LD 197 U/L Normal 135-214 [facility] Comment on above: Performed By: #### W SR, PRCFUN, AT3ASY, PRSCLT, SERIMM, HOMCYS, IRON, FERR, B12, SERFOL, ANA1, HSCRP ####[address] [phone] Lupus Anticoag Panelon 04-20 aPTT Coag time (Bld) 26.7 s Normal 23.0-32.4 [facility] Comment on above: Result Comment: Unfr actionated [...] laboratory APTT reagent in use throughout the [facility]. Performed By: #### L UPUSP ####[address] [phone] aPTT Coag time (Bld) 32.4 s Normal <35.0 [facility] Comment on above: Performed By: #### L UPUSP ####[address] [phone] aPTT Coag time (Bld) 30.6 s Normal <33.2 [facility] Comment on above: Performed By: #### L UPUSP ####[address] [phone] aPTT Coag time (Bld) 33.0 s Normal 24.4-33.4 [facility] Comment on above: Result Comment: Resu lt rechecked. Performed By: #### L UPUSP ####[address] [phone] Beta2 Glycoprot IgG <9 Normal <20 [facility] Comment on above: Result Comment: < 20 SGU Rhoodqod60-57 SGU Low Positive> 80 SGU High PositiveThese results were obtained with the Pinpoint MD QUANTA Lite B2 GPI IgG DAYNA. B2 GPI IgG values obtained with different manufacturers' assay methods may not be used interchangeably. The magnitude of the reported IgG levels cannot be correlated to an endpoint titer. Performed By: #### L UPUSP ####[facility], [place] [phone] DRVVT 1:1 Mix 41.3 sec Normal 32.7-46.7 [facility] Comment on above: Performed By: #### L UPUSP ####[place] [address], [place] [phone] DRVVT Confirm Ratio 1.06 Normal <1.21 [facility] Comment on above: Performed By: #### L UPUSP ####[place] [address] [phone] DRVVT Screen 42.3 sec Normal 32.7-46.7 [facility] Comment on above: Performed By: #### L UPUSP ####[place] [phone] Hex Phase Confirm 47.7 sec Normal 41.8-54.9 [facility] Comment on above: Performed By: #### L UPUSP ####[place] [address] [phone] Hex Phase Delta 6.7 delta sec Normal <9.1 [facility] Comment on above: Performed By: #### L UPUSP ####[place] [phone] Hex Phase Screen 54.5 sec Normal 45.0-59.9 [facility] Comment on above: Performed By: #### L UPUSP ####[place] [phone] IgA Cardiolipin Ab. <9 Normal 0-11 [facility] Comment on above: Result Comment: <12 APL Toicvxem27-03 APL Equivocal>40 APL PositiveThe following results were obtained with an Pinpoint MD QUANTA Lite LAVON IgA III DAYNA. Cardiolipin IgA values obtained with different manufacturers' assay methods may not be used interchangeably. The magnitude of the reported IgA levels cannot be correlated to an endpoint titer. Performed By: #### L UPUSP ####[place] [address] [place], [place] [phone] IgG Cardiolipin Ab. <9 Normal 0-9 [facility] Comment on above: Result Comment: <10 GPL [id number] GPL Equivocal>40 GPL PositiveThe following results were obtained with the Inova QUANTA Lite LAVON IgG III DAYNA. Cardiolipin IgG values obtained with the different manufacturers' assay methods may not be used interchangeably. The magnitude of the reported IgG levels cannot be correlated to an endpoint titer. Performed By: #### L UPUSP ####[address] [phone] IgM Cardiolipin Ab. 9 MPL Normal 0-11 [facility] Comment on above: Result Comment: <12 MPL Qbqdqzfi55-23 MPL Equivocal>40 MPL PositiveThe following results were obtained with the Inova QUANTA Lite LAVON IgM III DAYNA. Cardiolipin IgM values obtained with different manufacturers' assay methods may not be used interchangeably. The magnitude of the reported IgM levels cannot be correlated to an endpoint titer. Performed By: #### L UPUSP ####[address] [phone] INR Coag RelTime (Bld) 1.0 {INR} Normal 0.9-1.3 [facility] Comment on above: Result Comment: Maya min K Antagonist (VKA) Therapeutic Range: INR 2 to 3 (Target INR of 2.5)Note: For patients treated with VKA drugs, such as warfarin, the [place] [employer] 2012 Guideline recommends [...] al. Chest 2012, 141:7S-47SNishimura RA, et al. [facility] 2017, 70: 252-289 Performed By: #### L UPUSP ####[facility] [place], [place] [phone] Interpretation (NOTE) Normal [facility] Comment on above: Result Comment: Perf orming [...] 74:1185 (1995). Performed By: #### L UPUSP ####[facility] [address] [place], [place] [phone] PNP Negative Normal Negative [facility] Comment on above: Performed By: #### L UPUSP ####[facility] [address] [place], [place] [phone] Protein mass conc g/dL Normal <20 [facility] Comment on above: Result Comment: < 20 SMU Royijtsd38-81 SMU Low Positive> 80 SMU High PositiveThese results were obtained with the Pinpoint MD QUANTA Lite B2 GPI IgM DAYNA. B2 GPI IgM values obtained with different manufacturers' assay methods may not be used interchangeably. The magnitude of the reported IgM levels cannot be correlated to an endpoint titer. Performed By: #### L UPUSP ####[address] [phone] PT Sec 10.1 sec Normal 9.7-13.0 [facility] Comment on above: Performed By: #### L UPUSP ####[address] [phone] Thrombin Time 16.1 sec Normal <18.6 [facility] Comment on above: Performed By: #### L UPUSP ####[address] [phone] Protein C Functionalon 04-20 Protein mass conc 104 % Normal 76-147 [facility] Comment on above: Performed By: #### W SR, PRCFUN, AT3ASY, PRSCLT, SERIMM, HOMCYS, IRON, FERR, B12, SERFOL, ANA1, HSCRP ####[place] [address] [place], [place] [phone] Protein S Clottableon 2017 Protein S Clottable 108 % Normal 59-131 [facility] Comment on above: Performed By: #### W SR, PRCFUN, AT3ASY, PRSCLT, SERIMM, HOMCYS, IRON, FERR, B12, SERFOL, ANA1, HSCRP ####[place] [address] [place], [place] [phone] Prothrombin Gene PCRon 04-20 PT Gene Report (NOTE) Normal [facility] Comment on above: Result Comment: [facility]: Alvina Sotomayor M.D., Ph.D.PT Gene Mutation Result: NORMALPT Gene Mutation Interpretation: The DNA sample is negative for [id number] point mutation in the 3' untranslated region of theprothrombin gene.This is not associated with an increased risk ofvenous thrombosis.Venous thrombosis is a multifactorial disorder, andother causes of venous thrombosis are not excluded.PT Gene Mutation Method: This assay was performed by polymerase chainreaction and fluorescence monitoring using hybridization probes. Performed By: #### P TGELLIOT ####[facility] [address] [place], [place] [phone] Remote CBCDIF (for [facility] use o nly)on 04-20-2018 Abs Baso <0.03 Normal 0.00-0.10 [facility] Abs Carlton 0.48 k/uL Normal 0.00-0.86 [facility] Abs Neut 3.86 k/uL Normal 1.45-7.50 [facility] Basophils/100 WBC Auto (Bld) 0.3 % Normal [facility] Eosinophils Auto #/vol (Bld) 0.09 10*3/uL Normal 0.00-0.45 [facility] Eosinophils/100 WBC Auto (Bld) 1.4 % Normal [facility] Erythrocyte distribution width Auto Ratio (RBC) 11.9 % Normal 11.5-15.0 [facility] Hematocrit Auto Volume Fraction (Bld) 37.0 % Normal 36.0-46.0 [facility] Hemoglobin mass conc (Bld) 12.6 g/dL Normal 11.5-15.5 [facility] Lymphocytes Auto #/vol (Bld) 2.07 10*3/uL Normal 1.00-4.00 [facility] Lymphocytes/100 WBC Auto (Bld) 31.7 % Normal [facility] MCH Auto Entitic mass (RBC) 33.2 pG Normal 26.0-34.0 [facility] MCHC Auto mass conc (RBC) 34.1 g/dL Normal 30.5-36.0 [facility] MCV Auto Entitic volume (RBC) 97.4 fL Normal 80.0-100.0 [facility] Monocytes/100 WBC Auto (Bld) 7.4 % Normal [facility] Neutrophils/100 WBC Auto (Bld) 59.2 % Normal [facility] Platelet mean volume Auto Entitic volume (Bld) 10.7 fL Normal 9.0-12.7 [facility] Platelets Auto #/vol (Bld) 226 10*3/uL Normal 150-400 [facility] RBC Auto #/vol (Bld) 3.80 10*6/uL Low 3.90-5.20 [facility] WBC Auto #/vol (Bld) 6.52 10*3/uL Normal 3.70-11.00 [facility] Sed Rate Westergrenon 2017 Sed Rate Westergren 15 mm/hr Normal 0-20 [facility] Comment on above: Performed By: #### W SR, PRCFUN, AT3ASY, PRSCLT, SERIMM, HOMCYS, IRON, FERR, B12, SERFOL, ANA1, HSCRP ####[facility] [place], [place] [phone] Ultra-sensitive CRPon 2017 Protein mass conc 11.1 mg/L High <3.1 [facility] Comment on above: Result Comment: (NOT E)hsCRP < 1.0 mg/L, relative risk is lowhsCRP 1.0-3.0 mg/L, relative risk is averagehsCRP > 3.0 mg/L, relative risk is highReference:Trevin TA, Salvador GA, Raman RW, et al. Markers of Inflammationand Cardiovascular Disease. Application to Clinical and PublicHealth Practice. A Statement for Healthcare Professionals From theMccullough-Hyde Memorial Hospitalers for Disease Control and Prevention and the [place] [employer]. Circulation 2003;107:499-511. Performed By: #### W SR, PRCFUN, AT3ASY, PRSCLT, SERIMM, HOMCYS, IRON, FERR, B12, SERFOL, ANA1, HSCRP ####[facility] [place], [place] [phone] Vitamin B12on 04-20-2018 Cobalamin (Vitamin B12) mass conc 445 pg/mL Normal 232-1245 [facility] Comment on above: Performed By: #### W SR, PRCFUN, AT3ASY, PRSCLT, SERIMM, HOMCYS, IRON, FERR, B12, SERFOL, ANA1, HSCRP ####[facility] [place], [place] [phone] [facility] OVS Visit (SP) Office (HEMACL) KELLY ONTIVEROSNNJudd Rodriguez ([id number]) 1990 FDate Time Provider Department04/15/18 3:15 PM [...] DO 04/19/2018 9:38 AM SignedPATIENT NAME: Azul [place] TiffanyMRN: [id number] PHYSICIAN: Chay Castro, [id number] [address]BSREMSY CARE PHYSICIAN: No primary care provider on file.OTHER PHYSICIANS:CHIEF COMPLAINT: 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)ASSESSMENT/PLAN: (R79.1) 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) (primaryencounter diagnosis)Mildly elevated dilute Idalia viper venom time in a otherwise nltwgoa34-cujn-drt female with no history suggestive of bleeding [...] considered for referral to hematologic subspecialist at [facility].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.We'll also check for lupus screen with an ROSANA.Mild anemiaWe'll check iron studies, B-12, folate, sedimentation rate.Visit (SP) Office on 04/15/18-FACTOR V LEIDEN/PCR-PROTHROMBIN GENE PCR-PROTEIN S CLOTTABLE-PROTEIN C FUNCT-ANTITHROMBIN III-LUPUS ANTICOAG PL-B 2 GPI IGG AND PXG-IKTU-VZREEHZUDFL YA-OAVCEZTIAIWF-HZE PANEL BLOOD SCRN-IRON + TIBC-FERRITIN BLD-VITAMIN B12 BLOOD-FOLATE SERUM-IMMUNOGLOBULINS YUSRA-LD LACTATE DEHYDRO-SED RATE DEMZPUJBHC-O-UGNHIJZL ULTRA SEN-ACTIVATED PTT-PROTHROMBIN TIME/PT-CBC + DIFF (FOR REMOTE [facility] USE)-COMP METABOLIC PANEL-ACTIVATED PTT-PROTHROMBIN TIME/PT-B 2 GPI IGG AND CXJ-ZYKO-CGQRAVCYFWK AB-LUPUS ANTICOAG PL Return in about 4 [...] of midol and excedrin. She works [employer] in [place].Her mother has a history of cervical cancer [...] and myrecommendations listed below. The patient Azul Rodriguez [place] verbalizedunderstanding and agreed with these recommendations and plan. I answered allquestions satisfactorily..Rowdy Hu D.O.Medical OncologistMulticare Valley Hospital Cancer [place], [place]Referring Provider: CHAY CASTRO [[id number]]Allergies As of Date: 04/15/2018 Noted Allergy ReactionIODINE 04/15/2018 2 - RashDate Reviewed: 04/15/2018Reviewed by: Zee Mills - Fully AssessedReason for Visit: Consult [173] Cmt: Abnormal labsPrimary Visit Diagnosis: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) [R79.1]Order(s):FACTOR V LEIDEN/PCR [SQFVLEID] Order #: [id number] FUTURE PROTHROMBIN GENE PCR [SQPTGENE] Order #: [id number] FUTURE PROTEIN S CLOTTABLE [SQPRSCLT] Order #: [id number] FUTURE PROTEIN C FUNCT [SQPRCFUN] Order #: [id number] FUTURE ANTITHROMBIN III [KJLN0QAK] Order #: [id number] FUTURE LUPUS ANTICOAG PL [SQLUPUSP] Order #: [id number] FUTURE B 2 GPI IGG AND IGM [LGU3EPHI] Order #: [id number] FUTURE ANTI-CARDIOLIPIN AB [SQCARDIO] Order #: [id number] FUTURE HOMOCYSTEINE [SQHOMCYS] Order #: [id number] FUTURE ROSANA PANEL BLOOD SCRN [SQANA1] Order #: [id number] FUTURE IRON + TIBC [SQIRON] Order #: [id number] FUTURE FERRITIN BLD [SQFERR] Order #: [id number] FUTURE VITAMIN B12 BLOOD [SQB12] Order #: [id number] FUTURE FOLATE SERUM [SQSERFOL] Order #: [id number] FUTURE IMMUNOGLOBULINS YUSRA [SQSERIMM] Order #: [id number] FUTURE LD LACTATE DEHYDRO [SQLD6] Order #: [id number] FUTURE SED RATE WESTERGREN [SQWSR] Order #: [id number] FUTURE C-REACTIVE ULTRA SEN [SQHSCRP] Order #: [id number] FUTURE ACTIVATED PTT [SQPTT] Order #: [id number] FUTURE PROTHROMBIN TIME/PT [SQPT] Order #: [id number] FUTURE CBC + DIFF (FOR REMOTE [facility] USE) [SQRCBCDF] Order #: [id number] FUTURE COMP METABOLIC PANEL [SQCMP] Order #: [id number] FUTURE ACTIVATED PTT [SQPTT] Order #: [id number] FUTURE PROTHROMBIN TIME/PT [SQPT] Order #: [id number] FUTURE B 2 GPI IGG AND IGM [OCC5BSML] Order #: [id number] FUTURE ANTI-CARDIOLIPIN AB [SQCARDIO] Order #: [id number] FUTURE LUPUS ANTICOAG PL [SQLUPUSP] Order #: [id number] FUTUREDisposition: Return in about 4 months (around [...] by LATASHA HU DO on 04/19/18 Normal [facility] PROGRESSon 04-15-2018 Protein mass conc HNO ID: [id number] thor: Latasha HuService: (none)Author Type: PhysicianType: Progress NotesFiled: 04/19/2018 9:38 AMNote Text:PATIENT NAME: Azul [place] EtzwilerMRN: [id number] PHYSICIAN: Chay Castro DO[address] [address]OXNSXZK CARE PHYSICIAN: No primary care provider on file.OTHER PHYSICIANS:CHIEF COMPLAINT: 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)ASSESSMENT/PLAN: (R79.1) 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) (primaryencounter diagnosis)Mildly elevated dilute Idalia viper venom time in a otherwise jhalcpi05-pcnv-phr female with no history suggestive of bleeding [...] considered for referral to hematologic subspecialist at [facility].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.We'll also check for lupus screen with an ROSANA.Mild anemiaWe'll check iron studies, B-12, folate, sedimentation rate.Visit (SP) Office on 04/15/18-FACTOR V LEIDEN/PCR-PROTHROMBIN GENE PCR-PROTEIN S CLOTTABLE-PROTEIN C FUNCT-ANTITHROMBIN III-LUPUS ANTICOAG PL-B 2 GPI IGG AND HGL-VPZZ-[id number] SY-TMBIUFQBFBVM-HQG PANEL BLOOD SCRN-IRON + TIBC-FERRITIN BLD-VITAMIN B12 BLOOD-FOLATE SERUM-IMMUNOGLOBULINS YUSRA-LD LACTATE DEHYDRO-SED RATE [id number]-R-[id number] ULTRA SEN-ACTIVATED PTT-PROTHROMBIN TIME/PT-CBC + DIFF (FOR REMOTE [facility] USE)-COMP METABOLIC PANEL-ACTIVATED PTT-PROTHROMBIN TIME/PT-B 2 GPI IGG AND YCN-QNGX-ACBRYYTMRTF AB-LUPUS ANTICOAG PL Return in about 4 [...] of midol and excedrin. Sheworks in a [employer] in [place].Her mother has a history of cervical cancer [...] plan.I answered all questions satisfactorily..Rowdy Hu D.O.Medical OncologistArkansas Methodist Medical Center Vital Signs Date Time Vital Sign Value Performing Clinician Hedy miller 10-25-2023 16:49-0500 Diastolic blood pressure 78 mm[Hg] Alexx Dolle [facility] 10-25-2023 16:49-0500 Heart rate 74 /min Alexx Jean [facility] 10-25-2023 16:49-0500 Mean blood pressure 97 mm[Hg] Alexx Jean [facility] 10-25-2023 16:49-0500 Respiratory rate 18 /min Alexx Jean [facility] 10-25-2023 16:49-0500 SaO2% (BldA) [Mass fraction] 100 % Alexx Jean [facility] 10-25-2023 16:49-0500 Systolic blood pressure 134 mm[Hg] Alexx Jean [facility] 10-25-2023 16:30-0500 Hourly Rounding Alexx Dolle [facility] 10-25-2023 16:30-0500 Promise to Return Alexx Dolle [facility] 10-25-2023 16:00-0500 Diastolic blood pressure 82 mm[Hg] Alexx Jean [facility] 10-25-2023 16:00-0500 Heart rate 81 /min Alexx Dolle [facility] 10-25-2023 16:00-0500 SaO2% (BldA) [Mass fraction] 94 % Alexx Dolle [facility] 10-25-2023 16:00-0500 Systolic blood pressure 127 mm[Hg] Alexx Dolle [facility] 10-25-2023 15:28-0500 Hourly Rounding Alexx Pena [facility] 10-25-2023 15:28-0500 Promise to Return Alexx Pena [facility] 10-25-2023 15:02-0500 Diastolic blood pressure 138 mm[Hg] Alexx Dolle [facility] 10-25-2023 15:02-0500 Heart rate 94 /min Alexx Dolle [facility] 10-25-2023 15:02-0500 Mean blood pressure 142 mm[Hg] Alexx Dolle [facility] 10-25-2023 15:02-0500 Respiratory rate 18 /min Alexx Dolle [facility] 10-25-2023 15:02-0500 SaO2% (BldA) [Mass fraction] 99 % Alexx Dolle [facility] 10-25-2023 15:02-0500 Systolic blood pressure 150 mm[Hg] Alexx Dolle [facility] 10-25-2023 14:20-0500 Body temperature 98.24 [degF] Alexx Dolle [facility] 10-25-2023 14:20-0500 Heart rate 112 /min Alexx Dolle [facility] 10-20-2023 15:33-0500 Blood Pressure Location Glenn Gupta [facility] 10-20-2023 15:33-0500 Diastolic blood pressure 84 mm[Hg] Glenn Gupta [facility] 10-20-2023 15:33-0500 Heart rate 95 /min Glenn Gupta [facility] 10-20-2023 15:33-0500 SaO2% (BldA) [Mass fraction] 98 % Glenn Gupta [facility] 10-20-2023 15:33-0500 Systolic blood pressure 117 mm[Hg] Glenn Popeyeofferson [facility] 08-15-2023 09:18-0500 Blood Pressure Location Alexx Gupta [facility] [place] 08-15-2023 09:18-0500 Diastolic blood pressure 76 mm[Hg] Alexx Gupta [facility] [place] 08-15-2023 09:18-0500 Heart rate 92 /min Alexx Gupta [facility] 08-15-2023 09:18-0500 Respiratory rate 16 /min Alexx Gupta [facility] [place] 08-15-2023 09:18-0500 Systolic blood pressure 119 mm[Hg] Alexx Leroyy [facility] [place] 08-12-2023 11:20-0500 Body temperature 98.06 [degF] Alexx Gupta [facility] 08-12-2023 11:20-0500 Diastolic blood pressure 90 mm[Hg] Alexx Gupta [facility] [place] 08-12-2023 11:20-0500 Heart rate 114 /min Alexx Mourany [facility] [place] 08-12-2023 11:20-0500 Systolic blood pressure 137 mm[Hg] Alexx Manciaurany [facility] [place] 08-11-2023 13:20-0500 Diastolic blood pressure 85 mm[Hg] Glenn Nyeofferson [facility] 08-11-2023 13:20-0500 Heart rate 100 /min Glenn Christofferson [facility] 08-11-2023 13:20-0500 SaO2% (BldA) [Mass fraction] 100 % Glenn Popeeyofferson [facility] 08-11-2023 13:20-0500 Systolic blood pressure 140 mm[Hg] Glenn Nyeofferson [facility] 08-06-2023 11:15-0500 Heart rate 77 /min Alexx Manciaurany [facility] 08-06-2023 11:15-0500 SaO2% (BldA) [Mass fraction] 97 % Alexx Mourany [facility] 08-06-2023 11:15-0500 Respiratory rate 16 /min Alexx Mourany [facility] 08-06-2023 11:14-0500 Diastolic blood pressure 87 mm[Hg] Alexx Mourany [facility] 08-06-2023 11:14-0500 Mean blood pressure 98 mm[Hg] Alexx Mourany [facility] 08-06-2023 11:14-0500 Systolic blood pressure 118 mm[Hg] Alexx Mourany [facility] 08-06-2023 09:59-0500 Heart rate 79 /min Alexx Mourany [facility] 08-06-2023 09:59-0500 SaO2% (BldA) [Mass fraction] 94 % Alexx Mourany [facility] 08-06-2023 09:59-0500 Diastolic blood pressure 82 mm[Hg] Alexx Mourany [facility] 08-06-2023 09:59-0500 Mean blood pressure 98 mm[Hg] Alexx Mourany [facility] 08-06-2023 09:59-0500 Systolic blood pressure 129 mm[Hg] Alexx Mourany [facility] 08-06-2023 09:59-0500 Respiratory rate 16 /min Alexx Mourany [facility] 08-06-2023 09:50-0500 Blood Pressure Location Alexx Mourany [facility] 08-06-2023 09:50-0500 Body temperature 98.06 [degF] Alexx Mourany [facility] 08-06-2023 09:50-0500 Diastolic blood pressure 92 mm[Hg] Alexx Mourany [facility] 08-06-2023 09:50-0500 Heart rate 80 /min Alexx Mourany [facility] 08-06-2023 09:50-0500 Mean blood pressure 103 mm[Hg] Alexx Mourany [facility] 08-06-2023 09:50-0500 Respiratory rate 20 /min Alexx Mourany [facility] 08-06-2023 09:50-0500 SaO2% (BldA) [Mass fraction] 93 % Alexx Mourany [facility] 08-06-2023 09:50-0500 Systolic blood pressure 124 mm[Hg] Alexx Mourany [facility] 08-06-2023 09:40-0500 Blood Pressure Location Alexx Mourany [facility] 08-06-2023 09:40-0500 Mean blood pressure 100 mm[Hg] Alexx Mourany [facility] 08-06-2023 09:40-0500 Respiratory rate 20 /min Alexx Mourany [facility] 08-06-2023 09:35-0500 Blood Pressure Location Alexx Mourany [facility] 08-06-2023 09:35-0500 Mean blood pressure 102 mm[Hg] Alexx Mourany [facility] 08-06-2023 09:35-0500 Respiratory rate 24 /min Alexx Mourany [facility] 08-06-2023 09:20-0500 Respiratory rate 19 /min Alexx Mourany [facility] 08-06-2023 06:11-0500 Mean blood pressure 79 mm[Hg] Alexx Mourany [facility] 08-06-2023 06:11-0500 Heart rate 84 /min Alexx Mourany [facility] 08-06-2023 06:08-0500 Body temperature 97.88 [degF] Alexx Mourany [facility] 07-25-2023 09:28-0500 Blood Pressure Location Alexx Mourany [facility] 07-25-2023 09:28-0500 Diastolic blood pressure 74 mm[Hg] Alexx Mourany [facility] 07-25-2023 09:28-0500 Heart rate 86 /min Alexx Mourany [facility] 07-25-2023 09:28-0500 Mean blood pressure 89 mm[Hg] Alexx Mourany [facility] 07-25-2023 09:28-0500 Systolic blood pressure 120 mm[Hg] Alexx Mourany [facility] 07-25-2023 09:28-0500 Heart rate 78 /min Alexx Mourany [facility] 07-25-2023 09:28-0500 SaO2% (BldA) [Mass fraction] 99 % Alexx Mourany [facility] 07-25-2023 09:28-0500 Respiratory rate 18 /min Alexx Mourany [facility] 07-25-2023 09:27-0500 Blood Pressure Location Alexx Mourany [facility] 07-25-2023 09:27-0500 Body temperature 97.88 [degF] Alexx Mourany [facility] 07-25-2023 09:27-0500 Diastolic blood pressure 83 mm[Hg] Alexx Mourany [facility] 07-25-2023 09:27-0500 Mean blood pressure 97 mm[Hg] Alexx Mourany [facility] 07-25-2023 09:27-0500 Systolic blood pressure 125 mm[Hg] Alexx Mourany [facility] 07-21-2023 14:40-0500 Diastolic blood pressure 81 mm[Hg] Alexx Mourany [facility] [place] 07-21-2023 14:40-0500 Heart rate 93 /min Alexx Manciapedro [facility] 07-21-2023 14:40-0500 Systolic blood pressure 121 mm[Hg] Alexx Manciagracey [facility] 07-08-2023 13:57-0400 Blood Pressure Location Melissa Nunez [facility] 07-08-2023 13:57-0400 Body temperature 96.98 [degF] Melissa Castillometz [facility] 07-08-2023 13:57-0400 Diastolic blood pressure 74 mm[Hg] Melissa Castillometz [facility] 07-08-2023 13:57-0400 Heart rate 87 /min Melissa Nunez [facility] 07-08-2023 13:57-0400 Respiratory rate 16 /min Melissa Castillometz [facility] 07-08-2023 13:57-0400 Systolic blood pressure 111 mm[Hg] Melissa Castillometz [facility] 06-23-2023 12:53-0400 Diastolic blood pressure 68 mm[Hg] Alexx Pena [facility] 06-23-2023 12:53-0400 Heart rate 79 /min Alexx Jean [facility] 06-23-2023 12:53-0400 Mean blood pressure 76 mm[Hg] Alexx Dolle [facility] 06-23-2023 12:53-0400 Respiratory rate 24 /min Alexx Pena [facility] 06-23-2023 12:53-0400 SaO2% (BldA) [Mass fraction] 100 % Alexx Jean [facility] 06-23-2023 12:53-0400 Systolic blood pressure 91 mm[Hg] Alexx Jean [facility] 06-23-2023 12:30-0400 Diastolic blood pressure 66 mm[Hg] Alexx Jean [facility] 06-23-2023 12:30-0400 Heart rate 81 /min Alexx Jean [facility] 06-23-2023 12:30-0400 Mean blood pressure 78 mm[Hg] Alexx Jean [facility] 06-23-2023 12:30-0400 Respiratory rate 13 /min Alexx Jean [facility] 06-23-2023 12:30-0400 SaO2% (BldA) [Mass fraction] 100 % Alexx Jean [facility] 06-23-2023 12:30-0400 Systolic blood pressure 102 mm[Hg] Alexx Jean [facility] 06-23-2023 12:00-0400 Diastolic blood pressure 67 mm[Hg] Alexx Jean [facility] 06-23-2023 12:00-0400 Heart rate 70 /min Alexx Jean [facility] 06-23-2023 12:00-0400 Mean blood pressure 83 mm[Hg] Alexx Jean [facility] 06-23-2023 12:00-0400 SaO2% (BldA) [Mass fraction] 99 % Alexx Jean [facility] 06-23-2023 12:00-0400 Systolic blood pressure 115 mm[Hg] Alexx Pena [facility] 06-23-2023 09:50-0400 Respiratory rate 20 /min Alexx Pena [facility] 06-23-2023 09:23-0400 Body temperature 98.24 [degF] Alexx Pena [facility] 06-23-2023 09:23-0400 Heart rate 81 /min Alexx Pena [facility] 06-23-2023 09:23-0400 Respiratory rate 16 /min Alexx Pena [facility] 09-14-2022 10:30-0500 Body height 157.48 cm Thania Pughmond Other [facility] Other 09-14-2022 10:30-0500 Body mass index (BMI) [Ratio] 49.74 kg/m2 Thania Trevizo Other [facility] Other 09-14-2022 10:30-0500 Body temperature 97.7 [degF] Thania Trevizo Other [facility] Other 09-14-2022 10:30-0500 Body weight 123.38 kg Thania Pughmond Other [facility] Other 09-14-2022 10:30-0500 Diastolic blood pressure 97 mm[Hg] Thania Joseline Other [facility] Other 09-14-2022 10:30-0500 Respiratory rate 18 /min Thania Pughmond Other [facility] Other 09-14-2022 10:30-0500 SaO2% (BldA) [Mass fraction] 100 % Thania Joseline Other [facility] Other 09-14-2022 10:30-0500 Systolic blood pressure 140 mm[Hg] Thania Joseline Other [facility] Other 05-31-2022 16:10-0400 Body height 157.48 cm Mayra Astorga Other [facility] Other 05-31-2022 16:10-0400 Body mass index (BMI) [Ratio] 48.98 kg/m2 Mayra Astorga Other [facility] Other 05-31-2022 16:10-0400 Body temperature 97.9 [degF] Mayra Astorga Other [facility] Other 05-31-2022 16:10-0400 Body weight 121.47 kg Mayra Astorga Other [facility] Other 05-31-2022 16:10-0400 Diastolic blood pressure 84 mm[Hg] Mayra Astorga Other [facility] Other 05-31-2022 16:10-0400 Respiratory rate 18 /min Mayra Astorga Other [facility] Other 05-31-2022 16:10-0400 SaO2% (BldA) [Mass fraction] 99 % Mayra Astorga Other [facility] Other 05-31-2022 16:10-0400 Systolic blood pressure 129 mm[Hg] Mayra Astorga Other [facility] Other Encounters Encounter Date Encounter Type Care Provider Facility Start: 10-25-2023 End: 10-25-2023 Emergency department patient visit Alexx Pena Facility[place] Start: 10-25-2023 End: 10-25-2023 Emergency department patient visit Alexx Pena [facility] Start: 10-22-2023 Refill Florecita Figueroa [facility] Comment on above: 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); Edema of both legs Start: 10-20-2023 End: 10-21-2023 ambulatory Glenn Gupta Facility[place] Start: 10-20-2023 End: 10-20-2023 Patient encounter procedure Glenn Gupta [facility] Start: 10-01-2023 End: 10-01-2023 ambulatory Tez Angel Facility:[facility] Start: 10-01-2023 End: 10-01-2023 ambulatory MD Tez Angel Work Phone: [facility] Work Phone: Start: 10-01-2023 End: 10-01-2023 Departed Referred MD Tez Angel Work Phone: [facility] Start: 09-17-2023 End: 09-18-2023 ambulatory Glenn Gupta Facility:[facility] Start: 09-17-2023 End: 09-17-2023 Patient encounter procedure Glenn Gupta [facility] Start: 09-15-2023 End: 09-15-2023 ambulatory CHAY CASTRO Not Available Start: 08-27-2023 End: 08-27-2023 ambulatory TEZ ANGEL Not Available Start: 08-15-2023 End: 08-16-2023 ambulatory Alexx Gupta Facility: [place] Start: 08-15-2023 End: 08-15-2023 Patient encounter procedure Alexx Gupta [facility] [place] Start: 08-12-2023 End: 08-13-2023 ambulatory Alexx Gupta Facility:[facility] Start: 08-12-2023 End: 08-12-2023 Patient encounter procedure Alexx Gupta [facility] Start: 08-11-2023 End: 08-12-2023 ambulatory Glenn Gupta Facility:[facility] Start: 08-11-2023 End: 08-11-2023 Patient encounter procedure Glenn Gupta [facility] Start: 08-06-2023 End: 08-06-2023 ambulatory Alexx Gupta Facility:[facility] Start: 08-06-2023 End: 08-06-2023 Admission to same day surgery center Alexx Gupta [facility] Start: 07-25-2023 End: 07-26-2023 ambulatory Alexx Gupta Facility:[facility] Start: 07-25-2023 End: 07-25-2023 Patient encounter procedure Alexx Gupta [facility] Start: 2023 End: 07-25-2023 ambulatory TEZ ANGEL Facility:[facility] Start: 2023 End: 2023 Patient encounter procedure TEZ ANGEL [facility] Start: 07-21-2023 End: 07-22-2023 ambulatory Alexx Gupta Facility:[facility] Start: 07-21-2023 End: 07-21-2023 Patient encounter procedure Alexx Gupta [facility] Start: 07-18-2023 ambulatory Melissa Nunez Facility :[facility] Start: 07-14-2023 End: 07-15-2023 ambulatory Melissa Nunez Facility:[facility] Start: 07-14-2023 End: 07-14-2023 Patient encounter procedure Melissa Nunez [facility] Start: 07-08-2023 End: 07-09-2023 ambulatory Melissa Nunez Facility:[facility] Start: 07-08-2023 End: 07-08-2023 Patient encounter procedure Melissa Nunez [facility] Start: 07-07-2023 End: 07-08-2023 ambulatory Alexx Gupta Facility:[facility] Start: 07-07-2023 End: 07-07-2023 Patient encounter procedure Alexx Gupta [facility] Start: 06-25-2023 ambulatory Melissa Nunez [facility] Start: 06-23-2023 End: 06-23-2023 Emergency department patient visit Alexx Pena Facility:[facility] Start: 06-23-2023 End: 06-23-2023 Emergency department patient visit Alexx Pena [facility] Start: 01-29-[address] CHAY CASTRO . [...] examination without abnormal findings DR TEZ ANGEL [facility] Start: 10-09-2022 End: 10-10-[address] TEZ ANGEL Facility:[facility] Start: 10-09-2022 End: 10-10-2022 Encounter for general adult medical examination without abnormal findings DR TEZ ANGEL Facility:[facility] Start: 09-14-2022 End: 09-14-2022 ambulatory Thania Trevizo Other [facility] Other Start: 09-14-2022 Office outpatient visit 15 minutes Thania Trevizo [facility] Start: 07-23-2022 End: [address] YONAS ANTON . Facility:[facility] Start: 07-16-[address] YONAS ANTON . Faci lity:[facility] Start: 06-04-2022 End: 06-05-[address] YONAS ANTON . Facility:[facility] Start: 05-31-2022 End: 05-31-2022 ambulatory Mayra Astorga Other [facility] Other Start: 05-31-2022 Office outpatient ne w 30 minutes Mayra Astorga [facility] Start: 05-02-2022 End: 05-03-[address] CHAY CASTRO . Facility:[facility] Start: 04-09-2022 End: 04-09-[address] CHAY CASTRO . Facility:[facility] Start: 08-06-2018 End: 08-07-2018 Patient encounter procedure SHANT ROMERO [facility] Start: 07-28-2018 End: 07-28-2018 Patient encounter procedure SHANT ROMERO [facility] Start: 07-28-2018 End: 07-28-2018 Patient encounter procedure LATASHA HU [facility] Start: 07-08-2018 End: 07-08-2018 Patient encounter procedure MINDY GARCIA [facility] Start: 04-20-2018 End: 04-21-2018 Patient encounter procedure LATASHA HU [facility] Start: 04-15-2018 End: 04-20-2018 Patient encounter procedure LATASHA HU [facility] Procedures Date Procedure Procedure Detail Performing Clinician Start: 10-01-2023 Hysterectomy Glenn Candy Start: 08-06-2023 Robot assisted laparoscopic cholecystectomy Alexx Gavinopedro Colposcopy Alexx Pena Fasciotomy of foot Alexx Masters petros H/O: tubal ligation Alexx meneses Laparoscopy Alexx Pena Loop electrosurgical excision procedure Alexx Pena Plan of Treatment Date Care Activity Detail Author Start: 02-25-2024 End: 02-25-2024 Patient encounter procedure 02/25/2024 9:30 AM EDT Office Visit [facility] [address] [place] [address] Tez Angel MD [address] [place] [address] [facility] Start: 11-12-2023 End: 11-12-2023 ambulatory 11/12/2023 11:20 AM EST Visit [facility] [address] [place] [id number] Zoya Peter PA [address] [place] [address] [facility] Start: 05-09-2023 Influenza vaccination Influenza Vacc ine (#1) [facility] Immunizations Immunization Date Immunization Notes Care Provider Fa cility 12-02-2021 SARS-CoV-2 mRNA (srlnnfbgllf-odua-izle ose) vaccine Alexx Gupta [facility] 01-05-2021 SARS-CoV-2 (COVID-19 ) Ad26 vaccine, recombinant Alexx Pena [facility] [place] 12-15-2020 SARS-CoV-2 (COVID-19 ) Ad26 vaccine, recombinant Alexx Pena [facility] [place] 01-22-2002 measles, mumps and rubella virus vaccine Alexx Gupta [facility] NEGATED: Highlighted row has not occurred!07-07-2023 influenza virus vaccine, unspecified formulation Alexx Gupta [facility] Payers Date Payer Category Payer Self-pay 2022 Medicaid [id number] 2022 Medicaid [employer] [employer] [employer] [id number] 2022-Present [address] [place] [address] [id number] 1989 Unknown [id number] 2.840.1.387222.3.579.2.593 1989 Unknown [id number] 2.840.1.234362.3.579.2.593 1989 Unknown [id number] 2..840.1.836172.3.579.2.593 1989 Unknown [id number] 2.16.840.1.486123.3.579.2.593 1989 Unknown [id number] 2.16.840.1.262929.3.579.2.593 1989 Unknown [id number] 2.16.840.1.017274.3.579.2.593 1989 Unknown [id number] 2.16.840.1.350434.3.579.2.593 1989 Unknown [id number] 2.16.840.1.419320.3.579.2.593 1989 Unknown [id number] 2.16.840.1.902493.3.579.2.593 1989 Unknown [id number] 2.840.1.722568.3.579.2.593 1989 Unknown [id number] 2..840.1.860535.3.579.2.593 1989 Unknown [id number] 2.840.1.689018.3.579.2.593 1989 Unknown [id number] 2.840.1.509263.3.579.2.1259 1989 Unknown [id number] 840.1.821534.3.579.2.1259 1989 Unknown [id number] 2.840.1.873134.3.579.2.727 1989 Unknown [id number] 840.1.993766.3.579.2.727 1989 Unknown [id number] 840.1.466977.3.579.2.727 1989 Unknown [id number] 840.1.810392.3.579.2.727 1989 Unknown [id number] 2840.1.714374.3.579.2.727 1989 Unknown [id number] 840.1.736332.3.579.2.727 1989 Unknown [id number] 2840.1.191605.3.579.2.727 1989 Unknown [id number] 2840.1.858419.3.579.2.727 1989 Unknown [id number] 2.16.840.1.829100.3.579.2.727 1989 Unknown [id number] 2.16.840.1.605164.3.579.2.727 1989 Unknown [id number] 2.16.840.1.708741.3.579.2.727 1989 Unknown [id number] 2.16.840.1.489509.3.579.2.727 1989 Unknown [id number] 2.16.840.1.179103.3.579.2.727 1989 Unknown [id number] 2.16.840.1.197034.3.579.2.727 1989 Unknown [id number] 2.16.840.1.643177.3.579.2.727 1989 Unknown [id number] 2.16.840.1.006125.3.579.2.727 1959 Unknown [id number] 2.16.840.1.973716.19 Social History Date Type Detail Facility Unknown if ever smoked [facility] Other Start: 08-21-2023 End: 08-27-2023 Sex Assigned At [facility] Start: 02-25-2023 Tobacco smoking status Smokele ss tobacco user within last 30 days [facility] Start: 07-08-2023 End: 10-20-2023 Tobacco smoking status Never smoked tobacco (finding) [facility] Tobacco smoking status Smoker (finding) [facility] [place] Tobacco Cigarettes [facility] Comment on above: social smoker, coupl e times per month Tobacco smoking status No Smokin g Status Entered [facility] Start: 1990 Sex Assigned At Female F [facility] Start: 08-27-2023 Tobacco smoking stat us NHIS Occasional tobacco smoker [facility] History of tobacco use Cigarette Smoker [facility] Start: 10-08-2023 Alcohol intake Current drinke r of alcohol (finding) [facility] Start: 08-21-2023 End: 08-27-2023 History of Social function [facility] Within the last year , have you been afraid of your partner or ex-partner? No [facility] Are you now , , , , never or living with a partner? Never [facility] How often to you hav e a drink containing alcohol? Never [facility] Do you feel stress - tense, restless, nervous, or anxious, or unable to sleep at night because your mind is troubled all the time - these days [OSQ] Only a little [facility] (I/We) worried whe er (my/our) food would run out before (I/we) got money to buy more. Never true [facility] Start: 02-26-2023 Tobacco Comment Patient smokes 6-10 cigarettes/day after 31- 60 minutes of waking up. [facility] Start: 02-26-2023 Alcohol Comment Caffeine: 2-3 cups/d ay [facility] Start: 02-25-2023 Gender identity Identifies as female gender (finding) [facility] Goals Date Patient Goal Desired Activity /State Personal health goal Functional Status Date Assessment Result Facility 10-25-2023 Functional Status N/A [facility] 10-20-2023 Functional Status No [facility] 08-15-2023 Functional Status N/A [facility] [place] 08-11-2023 Functional Status No [facility] 07-25-2023 Functional Status No [facility] 07-08-2023 Functional Status N/A [facility] 06-23-2023 Functional Status N/A [facility] Clinical Notes 05-31-2022 to 10-25-2023 Note Date & Type Note Facility 10-25-2023 Hospital Discharg e instructions Follow Up Care 10/25/2023 14:17:21 With:Chay CASTRO Address: [address] , [place] [address]- Business (1) When:10/28/2023 16:39:28 With:TEZ ANGEL Address: [address] [place] [place] [address] Business (1) When:Within 3 Day(s) [facility] 10-25-2023 Evaluation + Plan note Extrac shankar from: Title:ED Note Author:Alexx Pena DO Date:10/09 03/31 Headache (R51.9: Headache, u nspecified) Vaginal bleeding (N93.9: Abnormal uterine and vaginal bleeding, unspecified) Orders: ketorolac, 15 mg = 1 mL, Injection, IV Push, Once, Stop date 10/25/23 14:33:00 EST, STAT, Start date 10/25/23 14:33:00 EST, 10/25/23 14:33:00 EST nalbuphine, 5 mg = 0.5 mL, Injection, IV, Once PRN Pain, STAT, Start date 10/25/23 14:33:00 EST, 10/25/23 14:33:00 EST ondansetron, 4 mg = 2 mL, Injection, IV Push, Once, Stop date 10/25/23 14:55:00 EST, STAT, Start date 10/25/23 14:55:00 EST, 10/25/23 14:55:00 EST Sodium Chloride 0.9% intravenous solution 1,000 mL, 1,000 mL, IV, 1,000 mL/hr, STAT, Start date 10/25/23 14:33:00 EST, 1 hour(s), Total volume (mL): 1,000, 125.8 kg, 2.34, m2 ABO/Rh ABO/Rh History Check ABO/Rh Retype Antibody Screen Blood Bank ID# CBC w/ Auto Diff Comprehensive Metabolic Panel eGFR Extra SST Tube PT & PTT Future Scheduled Tests Laboratory* Fecal WBC Lactoferrin 07/08/23 * Giardia lamblia, Direct Detection EIA 07/08/23 * O & P Exam, Routine 07/08/23 * Clostridium Difficile PCR 07/08/23 * Enteric Panel by PCR 07/08/23 [facility]11-29-2023 Evaluation + Plan noteExtracted from: Title:ANES Post-operative Note - General Author: Mauricio Chang Jr., DO Date:08/06/23 Plan Transfer/Discharge: Transfer/Discharge Discharge when meets criteria ( From PACU to Ambulatory Surgery Unit, and To home ). Extracted from: Title:ANES Pre-operative Note - Adult Author:Alfonso jon Jr. DO, Mauricio G Date:08/06/23 Plan [place] [employer] (ASA) physical status classification: Class IV. Anesthetic Preoperative Plan: Anesthesia General. Future Appointments Appointment Date:08/11/2023 01:30:00 PM Scheduled Provider:Glenn Gupta MD [facility] Type:Cardiology New Patient (FT) Appointment Date:08/15/2023 09:20:00 AM Scheduled Provider:Alexx Gupta MD Location:[facility] Appointment Type: Post Op 15 Future Scheduled Tests Laboratory* Fecal WBC Lactoferrin 07/08/23 * Giardia lamblia, Direct Detection EIA 07/08/23 * O & P Exam, Routine 07/08/23 * Clostridium Difficile PCR 07/08/23 * Enteric Panel by PCR 07/08/23 [facility]11-29-2023 Hospital Discharge instructions Patient Education 08/06/2023 09:54:35 Post Op Patient Instructions - FT (CUSTOM) 08/06/2023 09:34:07 Minimally Invasive Cholecystectomy, Care [...] Follow these instructions at home: Medicines Take fsdv-cye-iokqazc and prescription medicines only as told by [...] to keep your urine pale yellow. ?Take vecb-twi-pxapxxq or prescription medicines. ?Eat foods that are [...] and water are not available, use hand key account coordinator. ?Change your dressing as told by your [...] provider. Document Revised: 02/26/2022 Document Reviewed: 02/26/2022 [employer] Patient Education 2022 Zoondy. Follow Up Care 07/21/2023 15:18:13 With:Alexx Gupta Address: [facility] [place] [phone] Business (1) When: Unknown Comments:Appointment has already been scheduled [facility]11-29-2023 NoteHistory and Physical Update H&P Reviewed. Patient [...] Brother. Hypertension: Mother, Father and Brother. TIA: Mother.Humberto [facility]11-20-2023 Note [id number] Hospital Discharge instructions Patient Education [...] ?Hypothyroidism. ?Polycystic ovarian syndrome (PCOS). ?Binge-eating disorder. ?Ontario syndrome. Taking certain medicines, such as steroids, [...] food choices, such as grocery stores and [employer]. What are the signs or symptoms? The [...] and how much exercise you get. Take qyjm-sfz-dlqvvxd and prescription medicines only as told by [...] provider. Document Revised: 04/02/2022 Document Reviewed: 04/02/2022 [employer] Patient Education 2022 Zoondy. [facility] [place] 10-31-2023 Hospital Discharge instructions Patient Education 07/08/2023 [...] water added (diluted fruit juice). Eat bland, yzxq-ia-saoaia foods in small amounts as you are able. These foods include bananas, applesauce, rice, lean meats, toast, and crackers. Avoid drinking fluids that contain a lot of sugar or caffeine, such as energy drinks, sports drinks, and soda. Avoid alcohol. Avoid spicy or fatty foods. General instructions Take egdp-ldf-rncehsu and prescription medicines only as told by your health care provider. Rest at home while you recover. Drink enough fluid to keep your urine pale yellow. Breathe slowly and deeply when you feel nauseous. Avoid smelling things that have strong odors. Wash your hands often using soap and water for at least 20 seconds. If soap and water are not available, use hand key account coordinator. Make sure that everyone in your household [...] recommendations for eating and drinking and take plgf-yrl-kvqnvog and prescription medicinesonly as told by your [...] provider. Document Revised: 03/01/2022 Document Reviewed: 03/01/2022 [employer] Patient Education 2022 Zoondy. Follow Up Care 06/25/2023 15:34:03 With:Melissa Nunez CNP Address: When:1 to 2 weeks Comments:Following EGD/Colonoscopy. [facility] 10-31-2023 Evaluation + Plan note Future Scheduled Tests Laboratory* Fecal WBC Lactoferrin 07/08/23 * Giardia lamblia, Direct Detection EIA 07/08/23 * O & P Exam, Routine 07/08/23 * Clostridium Difficile PCR 07/08/23 * Enteric Panel by PCR 07/08/23 Radiology* US Gallbladder 07/08/23 [facility] [id number] Evaluation + Plan note Future Scheduled Tests Laboratory* Fecal WBC Lactoferrin 07/08/23 * Giardia lamblia, Direct Detection EIA 07/08/23 * O & P Exam, Routine 07/08/23 * Clostridium Difficile PCR 07/08/23 * Enteric Panel by PCR 07/08/23 [facility]10-16-2023 Hospital Discharge instructions Patient Education 06/23/2023 12:53:51 [...] medicines. These include steroids, antibiotics, and some fioh-att-vucrrft medicines, such as aspirin or ibuprofen. Having [...] Follow these instructions at home: Medicines Take twlx-rha-eqacrtt and prescription medicines only as told by [...] provider. Document Revised: 12/29/2021 Document Reviewed: 12/29/2021 [employer] Patient Education 2022 Zoondy. Follow Up Care 06/23/2023 09:20:57 With:Michael Patino Address: [address] [place] [address], [address] [address] [phone] Business (1) When:06/26/2023 12:35:39 With:TEZ ANGEL Address: [address] [place] [phone] Business (1) When:06/26/2023 12:35:32 [facility]10-16-2023 Evaluation + Plan noteExtracted from: Title:ED Note [...] With Cult Reflex XR Chest Single View [facility]04-02-2023 NotePROCEDURE: US PELVIS AND TRANSVAG, 12/06/2022 10:17 [...] Electronically authenticated by: MEGAN HINOJOSA Date: 2022-12-08 11:58[facility]02-14-2023 NoteCONSULTATION CONSULTATION DATE: 10/22/2022 CHIEF COMPLAINT: Right [...] stopped the steroids for approximately a month.[id number] Evaluation note* Encounter Date Diagnosis Assessment Notes [...] no improvement in 2 to 3 days [employer] Other 11-15-2022 NoteCONSULTATION CONSULTATION DATE: 07/23/2022 CHIEF [...] like to proceed. CC: Tez Angel M.D.[facility] [id number] NoteCONSULTATION PROCEDURE DATE: 07/23/2022 PREOPERATIVE DIAGNOSIS: Scar [...] will be followed up in the office.[facility] 06-27-2022 History general Narrative - Reported* Type Description Date Medical History ANXIETY AND DEPRESSION Medical History GERD Medical History RIGHT FOOT PAIN Surgical History LEP PROCEDURE 2018 Surgical History LAPROSCOPY PROCEDURE 2018 Surgical History MULTIPLE SURGERIES 06/2019 [facility] Other 09-27-2022 NoteCONSULTATION CONSULTATION DATE: 06/04/2022 CHIEF [...] in the office subsequent to authorization. [facility] [id number] Evaluation note* Encounter Date Diagnosis Assessment Notes [...] understanding and is agreeable to treatment plan [facility] Other Evaluation + Plan note Future Appointments Appointment Date:07/08/2023 02:00:00 PM Scheduled Provider:Melissa Nunez CNP [place] Appointment Type:[facility] Follow Up [facility] [place] Evaluation + Plan note Future Appointments Appointment Date:07/21/2023 02:40:00 PM Scheduled Provider:Alexx Gupta MD Location:[facility] Appointment Type:[place] [id number] Future Scheduled Tests Laboratory* Fecal WBC Lactoferrin 07/08/23 * Giardia lamblia, Direct Detection EIA 07/08/23 * O & P Exam, Routine 07/08/23 * Clostridium Difficile PCR 07/08/23 * Enteric Panel by PCR 07/08/23 [facility] Future Appointments Appointment Date:2023 07:00:00 AM Scheduled Provider: [facility] Type:CT Sinus/Orbits/Maxillofacial (FT) Appointment Date:07/25/2023 09:30:00 AM Scheduled Provider: Location:[facility] Appointment Type:Surgical PAT FT Appointment Date:08/06/2023 01:00:00 PM Scheduled Provider: Location:[facility] Appointment Type:Surgery FT Appointment Date:08/11/2023 01:30:00 PM Scheduled Provider:Glenn Gupta MD [facility] Type:Cardiology New Patient (FT) Appointment Date:08/15/2023 09:20:00 AM Scheduled Provider:Alexx Gupta MD Location:[facility] Appointment Type:GS Post Op 15 Future Scheduled Tests Laboratory* Fecal WBC Lactoferrin 07/08/23 * Giardia lamblia, Direct Detection EIA 07/08/23 * O & P Exam, Routine 07/08/23 * Clostridium Difficile PCR 07/08/23 * Enteric Panel by PCR 07/08/23 Radiology* CT Maxillofacial w/o Contrast 07/24/23 [facility] [place] Evaluation + Plan note Future Appointments Appointment Date:07/25/2023 09:30:00 AM Scheduled Provider: Location:[facility] Appointment Type:Surgical PAT FT Appointment Date:08/06/2023 01:00:00 PM Scheduled Provider: Location:[facility] Appointment Type:Surgery FT Appointment Date:08/11/2023 01:30:00 PM Scheduled Provider:Glenn Gupta MD [facility] Type:Cardiology New Patient (FT) Appointment Date:08/15/2023 09:20:00 AM Scheduled Provider:Alexx Gupta MD Location:[facility] Appointment Type:GS Post Op 15 Future Scheduled Tests Laboratory* Fecal WBC Lactoferrin 07/08/23 * Giardia lamblia, Direct Detection EIA 07/08/23 * O & P Exam, Routine 07/08/23 * Clostridium Difficile PCR 07/08/23 * Enteric Panel by PCR 07/08/23 [facility] Future Appointments Appointment Date:08/06/2023 01:00:00 PM Scheduled Provider: Location:[facility] Appointment Type:Surgery FT Appointment Date:08/11/2023 01:30:00 PM Scheduled Provider:Glenn Gupta MD [facility] Type:Cardiology New Patient (FT) Appointment Date:08/15/2023 09:20:00 AM Scheduled Provider:Alexx Gupta MD Location:[facility] Appointment Type: Post Op 15 Future Scheduled Tests Laboratory* Fecal WBC Lactoferrin 07/08/23 * Giardia lamblia, Direct Detection EIA 07/08/23 * O & P Exam, Routine 07/08/23 * Clostridium Difficile PCR 07/08/23 * Enteric Panel by PCR 07/08/23 [facility] Future Appointments Appointment Date:08/15/2023 09:20:00 AM Scheduled Provider:Alexx Gupta MD Location:[facility] Appointment Type: Post Op 15 Appointment Date:10/20/2023 03:45:00 PM Scheduled Provider:Glenn Gupta MD [facility] Type:Cardiology Follow Up (FT) Future Scheduled Tests Laboratory* Fecal WBC Lactoferrin 07/08/23 * Giardia lamblia, Direct Detection EIA 07/08/23 * O & P Exam, Routine 07/08/23 * Clostridium Difficile PCR 07/08/23 * Enteric Panel by PCR 07/08/23 Radiology* EC Stress Echo Complete w/ Contrast 08/11/23 [facility] Future Appointments Appointment Date:08/15/2023 09:20:00 AM Scheduled Provider:Alexx Gupta MD Location:[facility] Appointment Type:GS Established 15 Appointment Date:10/20/2023 03:45:00 PM Scheduled Provider:Glenn Gupta MD [facility] Type:Cardiology Follow Up (FT) Future Scheduled Tests Laboratory* Fecal WBC Lactoferrin 07/08/23 * Giardia lamblia, Direct Detection EIA 07/08/23 * O & P Exam, Routine 07/08/23 * Clostridium Difficile PCR 07/08/23 * Enteric Panel by PCR 07/08/23 Radiology* EC Stress Echo Complete w/ Contrast 08/11/23 [facility] Evaluation + Plan note Future Appointments Appointment Date:10/20/2023 03:45:00 PM Scheduled Provider:Glenn Gupta MD Location:[facility] Appointment Type:Cardiology Follow Up (FT) Future Scheduled Tests Laboratory* Fecal WBC Lactoferrin 07/08/23 * Giardia lamblia, Direct Detection EIA 07/08/23 * O & P Exam, Routine 07/08/23 * Clostridium Difficile PCR 07/08/23 * Enteric Panel by PCR 07/08/23 Radiology* EC Stress Echo Complete w/ Contrast 08/11/23 [facility] Evaluation + Plan note Future Appointments Appointment Date:10/20/2023 03:45:00 PM Scheduled Provider:Glenn Gupta MD Location:[facility] Appointment Type:Cardiology Follow Up (FT) Future Scheduled Tests Laboratory* Fecal WBC Lactoferrin 07/08/23 * Giardia lamblia, Direct Detection EIA 07/08/23 * O & P Exam, Routine 07/08/23 * Clostridium Difficile PCR 07/08/23 * Enteric Panel by PCR 07/08/23 [facility] noteNo assessment information available [facility] Work Phone: Evaluation note* Diagnosis Mild recurrent major depression (HCC) (CMS/HCC)- Primary Major depressive disorder, recurrent episode, mild Edema of both legs Edema documented in this encounter [facility] Narrative - Reported* Type Description Date Medical History ANXIETY AND DEPRESSION Medical History GERD Medical History RIGHT FOOT PAIN Surgical History LEP PROCEDURE 2018 Surgical History LAPROSCOPY PROCEDURE 2018 Surgical History MULTIPLE SURGERIES 06/2019 [facility] Other Hospital course Narrative No data available for this section [facility] No data available for this section [facility] Progress note No data available for this section [facility] Summary Purpose Family History No Family History [...] for this section No Family History Records Found No data available for this section No data available for this section No data available for this section No Family History Records FoundNo Family History Records Found Advance Directives No Advanced Directives Records FoundNo Advanced Directives Records FoundNo Advanced Directives Records FoundNo Advanced Directives Records FoundNo Advanced Directives Records Found Additional Source Comments INFORMATION SOURCE (unrecogn ized section and content) DATE CREATED AUTHOR 08/17/2018 [facility] DATE CREATED AUTHOR AUTHOR'S ORGANIZ ATION 01/16/2023 [facility]ital DATE CREATED AUTHOR AUTHOR'S ORGANIZ ATION 09/15/2023 [facility] EPIC DATE CREATED AUTHOR AUTHOR'S ORGANIZ ATION 10/27/2023 [facility] DATE CREATED AUTHOR AUTHOR'S ORGANIZ ATION 10/28/2023 [facility] REASON FOR VISIT (unrecogniz ed section and content) Reason Onset Date Comments Med Refill 10/22/2023 Patient Care team informatio n (unrecognized section and content) Team Status: Active Member Role Status Dates Tez Angel MD Primary Care Provider Active Team Status: Inactive Member Role Status Dates Tez Angel MD Primary Care Provider Active S tart: October 01, 2023 End: October 01, 2023 Chay Castro Attending Provider Active Start: Cm cameron 2023 End: October 01, 2023 Sap Manager Relationship Specialty Start Date End Date Tez Angel MD PCP - General Family Medicine 02/26/23 Goals (unrecognized section and content) Goals may be documented in a n alternate section FOR RECORDS PERTAINING TO PATIENTS WHO ARE [...] BE BASED ON THE PRIMARY CLINICAL RECORDS. [facility] [employer] [facility]. provides no warranty or guarantee of the accuracy or completeness of information in this document.
--- NOTE | 2023-10-30 11:11 | PM.CN ---
Consult Note: HPI Data of Consult Patient: known to practice within the last 3 years Requesting Physician: Suellen Armijo NP Primary Care Provider: Tez Zaragoza MD Consult Narrative Reason for consult: F/u Narrative: Azul Huertas a pleasant 32 year old female presents for evaluation and management of right leg pain. Describes it as pins/needles/throbbing. Intermittently swells and has sensitivity to touch, clothes are very irritating. Has noticed this pain developed after foot surgery. At this time, she is noticing mild benefit from transdermal therapeutic cream. She continues to have pain and weakness to bilateral leg weakness. Negative imaging of lumbar spine and EMG since last appointment. cc:: CC: Suellen Armijo NP Review of Systems ROS Status of ROS 10 or more systems reviewed and unremarkable except as noted in history and below Musculoskeletal Reports: back pain and extremity pain [facility] Medical History (Updated 09/19/23 @ 11:04 by Christiana King NP) Lower extremity edema ?R60.0 - Localized edema (ICD-10) Panic attacks ?F41.0 - Panic disorder [episodic paroxysmal anxiety] (ICD-10) Depression ?F32.A - Depression, unspecified (ICD-10) Anxiety ?F41.9 - Anxiety disorder, unspecified (ICD-10) COVID-19 (09/09/23) ?U07.1 - COVID-19 (ICD-10) Snores ?R06.83 - Snoring (ICD-10) Gall stone ?K80.20 - Calculus of gallbladder without cholecystitis without obstruction (ICD-10) Dysmenorrhea ?N94.6 - Dysmenorrhea, unspecified (ICD-10) Dyspareunia Pelvic pain ?R10.2 - Pelvic and perineal pain (ICD-10) Menorrhagia ?N92.0 - Excessive and frequent menstruation with regular cycle (ICD-10) Back pain ?M54.9 - Dorsalgia, unspecified (ICD-10) Electronic cigarette use ?Z78.9 - Other specified health status (ICD-10) Sleep apnea ?G47.30 - Sleep apnea, unspecified (ICD-10) CRPS (complex regional pain syndrome), lower limb (2019) ?G90.529 - Complex regional pain syndrome I of unspecified lower limb (ICD-10) Neuropathy ?G62.9 - Polyneuropathy, unspecified (ICD-10) Vertigo ?R42 - Dizziness and giddiness (ICD-10) Migraine ?G43.909 - Migraine, unspecified, not intractable, without status migrainosus (ICD-10) Constipation ?K59.00 - Constipation, unspecified (ICD-10) GERD (gastroesophageal reflux disease) ?K21.9 - Gastro-esophageal reflux disease without esophagitis (ICD-10) Dyspnea on exertion ?R06.09 - Other forms of dyspnea (ICD-10) Activity intolerance ?R68.89 - Other general symptoms and signs (ICD-10) PCOS (polycystic ovarian syndrome) ?E28.2 - Polycystic ovarian syndrome (ICD-10) Hypothyroidism ?E03.9 - Hypothyroidism, unspecified (ICD-10) Delayed recovery from anesthesia Postoperative nausea and vomiting ?R11.2 - Nausea with vomiting, unspecified (ICD-10) ?Z98.890 - Other specified postprocedural states (ICD-10) Surgical History History of cholecystectomy (~07/2023) ?Z90.49 - Acquired absence of other specified parts of digestive tract (ICD-10) History of salpingectomy (03/12/23) ?Z90.79 - Acquired absence of other genital organ(s) (ICD-10) History of esophagogastroduodenoscopy (EGD) ?Z98.890 - Other specified postprocedural states (ICD-10) History of foot surgery (2019) ?Z98.890 - Other specified postprocedural states (ICD-10) H/O LEEP ?Z98.890 - Other specified postprocedural states (ICD-10) Family History Other CAD (coronary artery disease) Family history of COPD (chronic obstructive pulmonary disease) Family history of DVT Family history of diabetes mellitus Family history of heart disease Family history of hypertension Family history of myocardial infarction Family history of pulmonary embolism Family history of stroke Rectal adenocarcinoma Social History Within the past year, how often did you have a drink containing alcohol: never Score interpretation: A score less than 3 is consistent with normal alcohol consumption. Smoking status: Current some day smoker Nicotine containing products detail: vaped for 4 years every day but quit 2020. Non-prescribed substance use: denies use Previous occupational history: unemployed Highest level of school completed/degree received: high school graduate Meds Home Medications and Allergies Home Medications Medication Instructions Recorded Confirmed Type bupropion HCl 150 mg 24 hr tablet, 150 mg PO .qd 03/04/23 10/01/23 History extended release bupropion HCl 300 mg 24 hr tablet, 300 mg PO QDAY 03/04/23 10/01/23 History extended release cholecalciferol (vitamin D3) 50 50 mcg PO QDAY 03/04/23 09/19/23 History mcg (2,000 unit) tablet hydroxyzine HCl 25 mg tablet 50 mg PO Q6H PRN nausea and 03/04/23 10/01/23 History vomiting levothyroxine 100 mcg tablet 100 mcg PO QDAY 03/04/23 10/01/23 History meclizine 25 mg tablet 25 mg PO QID PRN motion sickness 03/04/23 09/19/23 History ondansetron 4 mg disintegrating 4 mg PO Q6H PRN nausea and vomiting 03/04/23 09/19/23 History tablet pantoprazole 40 mg tablet,delayed 40 mg PO QDAY 03/04/23 10/01/23 History release potassium chloride 20 mEq 20 meq PO QDAY PRN unknown 03/04/23 09/19/23 History tablet,extended release sumatriptan succinate 25 mg tablet 25 mg PO Q2H PRN migraine headache 03/04/23 09/19/23 History gabapentin 100 mg capsule 100 mg PO DAILY 08/21/23 09/19/23 History biotin 5 mg capsule 5 mg PO DAILY 09/19/23 09/19/23 History furosemide 40 mg tablet 40 mg PO DAILY 09/19/23 09/19/23 History lorazepam 0.5 mg tablet 0.5 mg PO TID PRN anxiety 09/19/23 09/19/23 History magnesium 250 mg tablet 250 mg PO DAILY 09/19/23 09/19/23 History topiramate 50 mg tablet 50 mg PO Q12H 09/19/23 09/19/23 History docusate sodium 100 mg capsule 100 mg PO BID #60 caps 10/01/23 Rx (Colace) ibuprofen 800 mg tablet 800 mg PO Q8H PRN pain 14 days #40 10/01/23 Rx tabs oxycodone-acetaminophen 5 mg-325 1 tab PO Q6H PRN pain 7 days #28 10/01/23 Rx mg tablet (Percocet) tabs Allergies Allergy/AdvReac Type Severity Reaction Status Date / Time povidone-iodine Allergy Severe Rash Verified 09/19/23 10:28 [From Sc[employer] Care Povidone Iodine] adhesive Allergy Verified 09/19/23 10:20 acetaminophen [From Vicodin] AdvReac Severe Nausea Verified 09/19/23 10:28 hydrocodone [From Vicodin] AdvReac Severe Nausea Verified 09/19/23 10:28 Exam Constitutional Documenting provider has reviewed patient's vital signs: yes Common normals: no apparent distress, oriented x3, healthy appearing, alert and well nourished General appearance: cooperative HENMT Common normals: normocephalic, hearing grossly normal bilaterally and moist oral mucous membranes Head and scalp: normocephalic Eye Common normals: PERRL Pupil: PERRL Neck & C-Spine Common normals: full ROM General: normal visual inspection Chest Common normals: inspection of chest normal Respiratory Common normals: normal respiratory effort, no retractions and no use of accessory muscles Back & Pelvis Lumbar spine/lower back: pain with ROM Other: bilateral facet loading pain over L3-S1 Extremity Other: edema to RLE, decreased sensation, hyperalgesia, reddened appearance, chronic neuropathy. Neuro Common normals: oriented x3, CN's II-XII intact bilaterally, moves all extremities, no focal motor deficits, no sensory deficits noted and deep tendon reflexes 2+ bilaterally Sensorium/orientation: alert Motor exam: strength 5/5 throughout and no movement abnormalities noted Psych Common normals: mental status grossly normal, thought process normal, cooperative, affect normal, speech normal and activity/motor behavior normal Speech: normal speech Thought process: normal thought process Results Additional Findings Additional findings: I have checked an [place] report on this patient today and there are no aberrancies noted in the prescribing history.?? A drug screen was completed and reviewed within the last year, and if there has not been a drug screen completed we ordered one today to monitor higher risk, state monitored pain medication use. As part of providing excellent, safe, comprehensive care, the following was completed at our patient's visit: 1. A medication reconciliation and review to ensure accurate knowledge of current/active medications, including asking our patients to inform us about any [id number] medications or herbal remedies/nutritional supplements/alternative remedies. 2. A review to specifically ensure our patients have had annual screening for: elevated body mass index (BMI), tobacco use, screening for depression, and screening for unhealthy alcohol use. When screening is concerning, patients are provided with education and the specific recommendation to discuss the concerning health issue and treatment options with their primary care provider. Assessment and Plan Assessment and Plan (1) Complex regional pain syndrome type 2 of right lower extremity: (2) Right foot pain: Plan right sympathetic nerve block under fluoroscopy, risks vs benefits discussed continue gabapentin 100mg HS, can trial BID and call if more effective continue topical cream discussed sympathetic nerve block, handout provided consider LDN for chronic pain in the future f/u 1 week after
== END 2023-10-30 10:42 | disposition home or self-care (01) ==
LOC: PM 10:42
PROVIDERS: PCP Family Medicine; Visit Provider Nurse Practitioner
DX: G57.71 Causalgia of right lower limb (principal)
CPT/HCPCS: G0463

== ENCOUNTER 2023-11-24 07:12 | Day surgery (SDC) | payer MEDICAID, SELFPAY ==
--- OUTSIDE RECORDS SUMMARY | 2023-11-24 07:15 | XMS_ITS | CCD ---
Author Name Unknown Address [address] [facility] [address] [place] [address] Organization [facility] Care Team Providers Care Kayaking Instructor Name Role Phone DEBBIE LATASHA J Unavailable [...] ANTON ., DR YONAS Tucker Attending Unavailable NADEREJurgen, DR TEZ Whaley Primary Care Unavailable SATNAM ., DR HAYS Attending Unavailable SATNAM ., DR HAYS Admitting Unavailable NADEREJurgen, DR TEZ Whaley Primary Care Unavailable SATNAM ., DR HAYS Consulting Unavailable SATNAM ., DR HAYS Attending Unavailable SATNAM ., DR HAYS Admitting Unavailable NADEREJurgen, DR TEZ Whaley Primary Care Unavailable NADEREJurgen, DR TEZ Whaley Primary Care Unavailable NADEMERSON, DR TEZ Whaley Consulting Unavailable STANLEY, DR TEZ Whaley Attending Unavailable NADERER, DR TEZ Whaley Admitting Unavailable SATNAM ., DR HAYS Attending Unavailable SATNAM ., DR HAYS Admitting Unavailable SATNAM ., DR HAYS Consulting Unavailable STANLEY, DR TEZ Whaley Primary Care Unavailable SATNAM ., DR HAYS Attending Unavailable SATNAM ., DR HAYS Admitting Unavailable NADERER, DR TEZ A Primary Care Unavailable SATNAM ., DR HAYS Consulting Unavailable ZIEBER, DR BING Seaman Consulting Unavailable SATNAM ., DR HAYS Attending Unavailable SATNAM ., DR HAYS Admitting Unavailable NADERER, DR TZE Whaley Primary Care Unavailable SATNAM ., DR [...] ANTON ., DR YONAS Tucker Attending Unavailable ALEGRENEIL LOZADA Consulting Unavailable TEZ ANGEL Primary Care Physician MD Tez Angel Primary Care Provider [phone] Chay Castro Attending Provider Tez Angel MD Primary Care Provider Melissa Nunez Attending Unavailable Alexx Gupta Attending Unavailable Alexx Gupta Attending Unavailable Alexx Gupta Attending Unavailable TEZ ANGEL Referring Unavailable Alexx Gupta Attending Unavailable Alexx Gupta Attending Unavailable Melissa Nunez Referring Unavailable Melissa Nunez Attending Unavailable Melissa Nunez Admitting Unavailable TEZ ANGEL Referring Unavailable TEZ ANGEL Attending Unavailable TEZ ANGEL Admitting Unavailable Jean, Alexx Attending Unavailable Jean, Alexx Attending Unavailable Alexx Gupta Attending Unavailable Alexx Gupta Admitting Unavailable Alexx Gupta Referring Unavailable Glenn Gupta Attending Chataa Glenn Izaguirre Admitting Unavaila Melissa Meehan Referring Unavailable Glenn Gupta Admitting Unavaila Glenn Izaguirre Attending Unavaila mayank NONE, XXXX Referring Unavailable Alexx Gupta Referring Unavailable Alexx Gupta Attending Unavailable Alexx Gupta Admitting Unavailable Glenn Gupta Referring Unavaila Glenn Izaguirre Attending Unavaila Glenn Izaguirre Consulting Unavaila Glenn Izaguirre Admitting Unavaila Glenn Izaguirre Consulting Unavaila Glenn Izaguirre Consulting Unavaila Tez Cuevas Primary Care Unavailable Chay Castro Attending Unavailable Chay Castro Admitting Unavailable CHAY CASTRO Attending Unavailable ZOYA PETER Attending Unavailable TEZ ANGEL Attending Unavailable CARLOS, ZOYA Attending Unavailable Allergies Allergy Classification Reported Allergen(s) Allergy Type Date of Onset Reaction(s) Facility (11 sources) Iodine; Translations: [IODINE] Drug Allergy 8 Hives, Itching, Rash, [facility] (18 sources) Acetaminophen / HYDROcodone; Translations: [Vicodin] Drug Allergy Unknown (qualifier value), Vomiting (disorder) [facility] Repository (8 sources) iodinated radiocontrast dyes; Translations: [iodinated radiocontrast agents] Drug allergy Unknown (qualifier value) General [facility] (9 sources) steri strips; Translations: [steri strips] Allergy to substance Itching (finding), Eruption of skin (disorder) [facility] (1 source) Acetaminophen / HYDROcodone Drug Allergy 3 GI intolerance [facility] Work Phone: (1 source) Wound Dressing Adhesive Propensity to adverse reactions 3 Hives, Itching, Rash [facility] (1 source) Acetaminophen Drug Allergy 3 [facility] Repository (1 source) HYDROcodone Drug Allergy 3 [facility] Repository Medications Current Medications Medication Drug Class(es) Dates Sig (Normalized) Sig (Original) acetaminophen 325 mg / oxyCODONE hydrochloride 5 mg oral tablet (6 sources) Opioid Agonist Start: 08-12-2023 Percocet 5 mg-325 mg oral tablet 1 tab(s), Oral, q6hr, 12 tab(s), Refill(s) 0, [facility] [address], 157, cm, 08/11/23 13:28:00 EST, Height/Length Dosing, 132.9, kg, 08/11/23 13:28:00 EST, Weight Dosing Start Date: 08/12/23 Status: Ordered Start: 08-06-2023 End: 08-08-2023 Percocet 5 mg-325 mg oral ta blet 1 tab(s), Oral, q6hr as needed for pain, 10 tab(s), Refill(s) 0, [facility] [address], 157.8, cm, 07/26/23 10:03:00 EST, Height/Length [...] MCG (1999) tablet take 1 capsule by [facility] every twenty-four hours Vitamin D3 50 MCG (1999) 1 capsule Orally Once a day Active chromium picolinate 1 mg oral tablet (4 sources) Start: 07-08-2023 chromium picol inate 1000 mcg oral tablet Refills(s) 0 Start Date: 07/08/23 Status: Ordered docusate sodium 50 mg / sennosides, care home 8.6 mg oral tablet (2 sources) take [...] MORNING ON AN EMPTY STOMACH 30 tablet 11 07/23/2023 Active Start: 08-06-2021 take 1 tablet [...] Status: Ordered take 1 tablet by zoë every eight hours as needed Ondansetron HCl 4 MG 1 tablet Orally wolf ry 8 hrs as needed Active pantoprazole 40 mg delayed release oral tablet (17 sources) Proton Pump Inhibitor Start: 08-10-2021 take 1 tablet by mouth once daily Protonix 40 mg Tab-DR 40 mg = 1 tab(s), Oral, Daily, # 90 tab(s), Refills(s) 1, Pharmacy: [facility] [address], 152.4, cm, 08/10/21 14:17:00 EST, [...] Start: 07-07-2023 take 9 tablets by [facility] every two hours SUMAtriptan 25 mg Tab [...] tablet by mouth once daily Vitamin D3 2000 intl units oral Tab = 1 tab(s), [...] 07/07/23 Status: Ordered take 1 tablet by [facility] every twenty-four hours hydrOXYzine HCl 25 MG 1 tablet at bedtim e as needed Orally Once a day Active polyethylene glycol 3350 588570 mg / potassium chloride 1480 mg / sodium bicarbonate 5720 mg / sodium chloride 60783 mg powder for oral solution (12 sources) Osmotic Laxative Start: 07-08-2023 NuLYTELY Quach oral powder for reconstitution See Instructions, 1 EA, Refill(s) 0, Prior to colonoscopy., [facility] [address], 157.5, cm, 07/08/23 14:03:00 EDT, [...] ABO/Rhon 10-25-2023 ABO/Rh Negative Invalid Interpretation Code [facility] Comment on above: Performed By: #### 2 [id number], [id number], [id number], [id number] ####[facility] [address] [place] [address] ABO/Rh History Checkon 10-25 ABO/Rh History Check Type verified by second s Normal [facility] Comment on above: Performed By: #### 2 799315, 25030210, 12211699, [id number] ####[facility] [address] [place] [address] ABO/Rh Retypeon 10-25-2023 ABO/Rh Retype Interp Negative Invalid Interpretation Code [facility] Comment on above: Performed By: #### 1 5207592, 9598937, 2053641, 06490427, [id number] ####[facility] [address] [place] [address] ABSCon 10-25-2023 ABSC Gel Interp Negative Normal [facility] Comment on above: Performed By: #### 2 867012, 00257230, 50811816, [id number] ####[address] [place] [address] BLOOD BANKOrdered By: Bridget Baron on 10-25-2023 ABO/Rh Interp Negative Invalid Interpretation Code [facility] BB Subsection ABSC Gel Interp Negative (10/25/23 2:57 PM) Normal [facility] BB Subsection ABO/Rh Retype Interp Negative Invalid Interpretation Code [facility] BB Subsection Blood Bank ID#on 10-25-2023 BBID# [id number] Invalid Interpretation Code [facility] Comment on above: Performed By: #### 2 572339, 49084255, 86564183, 16398266 ####[address] [place] [address] CBC w/ Auto Diffon Basophil Absolute 0.0 E9/L Normal 0.0-0.2 [facility] Comment on above: Performed By: #### 1 3562613, 3265234, 2536391, 81804604, 71838333 ####[address] [place] [address] Basophils/100 WBC (Bld) 0.5 % Normal 0.0-2.0 [facility] Comment on above: Performed By: #### 1 9885688, 1659138, 9604960, 86837582, 93664173 ####[address] [place] [address] Eos Absolute 0.1 E9/L Normal 0.0-0.5 [facility] Comment on above: Performed By: #### 1 7857471, 5041310, 8695812, 34214531, 96197482 ####[address] [address] Eosinophils/100 WBC (Bld) 1.6 % Normal 0.0-8.0 [facility] Comment on above: Performed By: #### 1 0342363, 4847252, 0186493, 42731309, 09516176 ####[address] [address] Erythrocyte distribution width (RBC) [Ratio] 13.1 % Normal 10.9-14.2 [facility] Comment on above: Performed By: #### 1 0089532, 8033282, 3836430, 21342970, 53342615 ####[address] [address] Hematocrit (Bld) [Volume fraction] 38.0 % Normal 34.0-46.0 [facility] Comment on above: Performed By: #### 1 9534226, 8308570, 3764645, 42314879, 93385069 ####[address] [address] Hemoglobin (Bld) [Mass/Vol] 12.9 g/dL Normal 12.0-16.0 [facility] Comment on above: Performed By: #### 1 0896223, 8345069, 9365641, 45689567, 06672864 ####[address] [address] Lymph Absolute 1.4 E9/L Normal 1.0-4.0 [facility] Comment on above: Performed By: #### 1 2513094, 9812977, 6754675, 95004972, 35677689 ####[address] [place] [address] Lymphocytes/100 WBC (Bld) 28.4 % Normal 14.0-50.0 [facility] Comment on above: Performed By: #### 1 3255338, 5419895, 0981937, 29181494, 16476700 ####[address] [address] MCH (RBC) [Entitic mass] 31.7 pg Normal 27.0-34.0 [facility] Comment on above: Performed By: #### 1 8898658, 0057800, 7226882, 23653010, 63622332 ####[address] [address] MCHC (RBC) [Mass/Vol] 33.7 g/dL Normal 31.4-36.0 [facility] Comment on above: Performed By: #### 1 5096355, 4391056, 0189895, 89567920, 64594504 ####[address] [address] MCV (RBC) [Entitic vol] 94.0 fL Normal 80.0-100.0 [facility] Comment on above: Performed By: #### 1 1003256, 5971878, 5478058, 03265235, 75435922 ####[address] [address] [place] Absolute 0.4 E9/L Normal 0.2-1.0 [facility] Comment on above: Performed By: #### 1 9373649, 6154577, 7428923, 40676115, 36134076 ####[address] [address] Monocytes/100 WBC (Bld) 8.0 % Normal 4.0-14.0 [facility] Comment on above: Performed By: #### 1 8612195, 1315366, 1368923, 51470134, 88001271 ####[address] [address] Neutro Absolute 3.1 E9/L Normal 2.0-7.5 [facility] Comment on above: Performed By: #### 1 3923803, 2777788, 8232574, 31061989, 24742850 ####[facility] [address] [place] [address] Neutro Auto 61.5 % Normal 36.0-75.0 [facility] Comment on above: Performed By: #### 1 3908615, 0433473, 8815595, 06469266, 91086799 ####[facility] [address] [place] [address] Platelet 221.0 E9/L Normal 150.0-500. 0 [facility] Comment on above: Performed By: #### 1 0304680, 3855563, 7421150, 61077130, 93039431 ####[facility] [address] [place] [address] Platelet mean volume (Bld) [Entitic vol] 8.9 fL Normal 6.4-10.8 [facility] Comment on above: Performed By: #### 1 6689550, 5707410, 0894543, 59617402, 18516117 ####[facility] [address] [place] [address] RBC 4.1 E12/L Low 4.3-5.9 [facility] Comment on above: Performed By: #### 1 9329575, 8956248, 7980569, 15722954, 33886063 ####[facility] [address] [place] [address] WBC 5.0 E9/L Normal 4.0-11.0 [facility] Comment on above: Performed By: #### 1 0957125, 4774793, 6911655, 15502401, 72798159 ####[facility] [address] [place] [address] CHEMISTRYOrdered By: SYSTEM SYSTEM on 10-25-2023 Albumin [...] 10-25-2023 Albumin [Mass/Vol] 4.1 g/dL Normal 3.3-5.0 [facility] Comment on above: Performed By: #### 1 4775917, 5385534, 5469357, 32143219, 42052821 ####[facility] [address] [place] [address] Albumin/Globulin [Mass ratio] 1.5 {ratio} Normal 1.1-2.2 [facility] Comment on above: Performed By: #### 1 1928150, 8271782, 8321117, 11010333, 07437651 ####[facility] [address] [place] [address] Alk Phos 96 Int._Unit/L Normal 21-98 [facility] Comment on above: Performed By: #### 1 3050310, 5151145, 9104635, 50908927, 09159793 ####[address] [place] [address] ALT 12 Int._Unit/L Normal 6-46 [facility] Comment on above: Performed By: #### 1 6058820, 2093263, 4338438, 78435996, 69472468 ####[facility] [address] [place] [address] Anion gap [Moles/Vol] 10 mmol/L Normal 6-16 [facility] Comment on above: Performed By: #### 1 0355736, 0246522, 9961139, 35938552, 61168617 ####[facility] [address] [place] [address] AST 13 Int._Unit/L Normal 5-43 [facility] Comment on above: Performed By: #### 1 4890768, 7274094, 0749767, 55724661, 36747882 ####[facility] [address] [place] [address] Bili Total 0.3 mg/dL Normal 0.0-1.1 [facility] Comment on above: Performed By: #### 1 9774347, 3975640, 7080038, 77452998, 21392207 ####[facility] [address] [place] [address] BUN/Creat Ratio 12 No Units Normal 10-20 [facility] Comment on above: Performed By: #### 1 8649957, 8132586, 1705416, 78401172, 99650181 ####[facility] [address] [place] [address] Calcium [Mass/Vol] 9.3 mg/dL Normal 8.9-11.1 [facility] Comment on above: Performed By: #### 1 3165905, 2161943, 1832273, 33807024, 24397378 ####[facility] [address] [place] [address] Chloride [Moles/Vol] 108 mmol/L Normal 101-111 [facility] Comment on above: Performed By: #### 1 4439450, 1224106, 3764983, 15930305, 94497303 ####[facility] [address] [place] [address] CO2 [Moles/Vol] 23 mmol/L Normal 21-31 [facility] Comment on above: Performed By: #### 1 4017698, 8107062, 0364416, 25934689, 08239261 ####[facility] [address] [place] [address] Creatinine [Mass/Vol] 1.1 mg/dL Normal 0.5-1.3 [facility] Comment on above: Performed By: #### 1 2039297, 4580410, 1049106, 27447687, 38722223 ####[facility] [address] [place] [address] Globulin (S) [Mass/Vol] 2.8 g/dL Normal 1.4-4.0 [facility] Comment on above: Performed By: #### 1 9750787, 5086690, 0357992, 56287167, 80633402 ####[facility] [address] [place] [address] Glucose [Mass/Vol] 106 mg/dL Normal 55-199 [facility] Comment on above: Performed By: #### 1 7437799, 2456718, 5082343, 91334098, 95525795 ####[facility] [address] [place] [address] Potassium [Moles/Vol] 3.8 mmol/L Normal 3.5-5.3 [facility] Comment on above: Performed By: #### 1 3299522, 9095029, 9275229, 75574152, 48126614 ####[facility] [address] [place] [address] Protein [Mass/Vol] 6.9 g/dL Normal 6.0-7.8 [facility] Comment on above: Performed By: #### 1 9435338, 1009416, 4642367, 77597206, 66006916 ####[facility] [address] [place] [address] Sodium [Moles/Vol] 137 mmol/L Normal 135-145 [facility] Comment on above: Performed By: #### 1 7014968, 5464970, 3336851, 20213601, 92389270 ####[facility] [address] [place] [address] Urea nitrogen [Mass/Vol] 13 mg/dL Normal 5-21 [facility] Comment on above: Performed By: #### 1 2738055, 3068672, 0076279, 51144118, 67335798 ####[facility] [address] [place] [address] COAGULATIONOrdered By: Pool Sykes on 10-25-2023 aPTT Coag (PPP) [Time] 31.3 s Normal 25.1 - 36.5 second(s) [facility] Auto Coag Comment on above: Interpretive Data: P arameter 15 days - 4 weeks 1 - 5 months 6 - 11 months 1 - 5 years 6 - 10 years 11 - 17 years PTT Mean: 35.4 (27.6-45.6) Mean: 33.5 (24.8-40.7) Mean: 32.4 (25.1-40.7) Mean: 31.6 (24.0-39.2) Mean: 31.6 (26.9-38.7) Mean: 31.0 (24.6-38.4) Pediatric Reference ranges were obtained from a study by joselyn De Los Santos alRicardo prepared from 1437 samples obtained at 7 different centers using the same coagulation reagent and instrumentation as [facility]. Currently there are no coagulation studies available worldwide for children to 14 days, and no normal ranges. Heparin therapeutic range (represented by Anti-Factor Xa activity of 0.2 - 0.4 U/mL) corresponds to PTT of 56.6 - 109.0 sec. INR Coag (PPP) [Relative time] 1.11 {INR} Invalid Interpretation Code [facility] Comment on above: Interpretive Data: I NR results are specifically intended to assess patients stabilized on long-term Anticoagulation therapy suggested INR s Less Intensive Anticoagulation 2.0 3.0 Conventional Range 3.0 4.5 PT Coag (PPP) [Time] 12.4 s Normal 9.4 - 1 2.5 second(s) [facility] Comment on above: Interpretive Data: 1 5 days - 4 weeks 1 - 5 months 6 -11 months 1 5 years 6 10 years 11 -17 years Mean: 11.2 (9.5 12.6) Mean: 11.0 (9.7 12.8) Mean: 11.0 (9.8 13.0) Mean: 11.3 (9.9 13.4) Mean: 11.7 (10.0 14.6) Mean: 11.8 (10.0 - 14.1) Pediatric Reference ranges were obtained from a study by joselyn De Los Santos alRicardo prepared from 1437 samples obtained at 7 different centers using the same coagulation reagent and instrumentation as [facility]. Currently there are no coagulation studies available worldwide for children to 14 days, and no normal ranges. Consent for Treatmenton 10-09 Consent for Treatment [id number] Normal [facility] Discharge Instructionson Discharge Instructions [id number] Normal [facility] ED Clinical Summaryon 2023 ED Clinical Summary (Inserted Image. Zenaida ble to display) [address] [id number] ED Clinical Summary Person Information Name: AZUL ONTIVEROS [facility] Age: 33 Years : 1990 Sex: Female Language: Albanian PCP: TEZ ANGEL MD Marital Status: Single [...] 10/25/2023 16:52:18 10/25/2023 16:52:18 10/25/2023 16:52:18 ADDRESS: [address] [place] [id number] PHYS DOC NOTES: MEDICAL INFORMATION: Prescriptions Given: Medications [...] Chay CASTRO [facility], [address] [place] [address] [place] [address] Business (1) In 3 days 10/28/2023 With: Address: When: TEZ ANGEL [address] [place], [place] [id number] Business (1) In 3 days DIAGNOSIS: Headache; Vaginal bleeding Normal [facility] ED Note-Physicianon 10-25-19 ED Note-Physician Basic Information Time Seen: Alexx Pean DO 10/25/2023 14:21 Chief Complaint hysterectomy 10/01. [...] relief of symptoms. She talk to the ACCOUNT SERVICES MANAGER physician was instructed to come to the [...] medications Follow-up With When Contact Information Chay CATSRO In 3 days 10/28/[address] , [place] [address]- Business (1) Additional Instructions: TEZ ANGEL In [address] [place] [id number] Business (1) Additional Instructions: Problem List/Past Medical [...] nalbuphine 10 (more content not included)... Normal [facility] Comment on above: Result Comment: Elec tronically Signed By: Alexx Pena DO\.br\Date and Time Signed: 10/25/23 16:40 EST ED Patient Education Noteon 10-25-2023 ED Patient Education Note Normal [facility] ED Patient Summaryon 024 ED Patient Summary (Inserted Image. Zenaida ble to display) [id number] Patient Discharge Instructions Person Information Name: PRINCE OWENSAZUL OATES Age: 33 Years Arrival Date: 10/25/2023 14:15:46 Discharge Diagnosis: Headache; Vaginal bleeding Primary Care Physician: TEZ ANGEL MD Provider Information Primary Provider: Alexx Pena DO Advanced System Trainer:None The exam and treatment you received in the Emergency Department were for an urgent problem and are not intended as complete care. It is important that you follow up with a doctor, nurse practitioner, or physician?s dental assistant for ongoing care. If your symptoms [...] Chay CASTRO [facility], [address] [place] [address] [place] [address] Business (1) In 3 days 10/28/2023 With: Address: When: TEZ [address] [place], [place] [id number] Business (1) In 3 days In the event that this physician does not participate in your insurance network, please consult with your insurance company to find a nearby participating provider. Patient Education Materials: A MESSAGE TO ALL PATIENTS REGARDING OPIOIDS PRESCRIPTION OPIOIDS: WHAT YOU NEED TO KNOW Prescription opioids can be used to help relieve yphwulos-xm-lriyur pain and are often prescribed following a [...] tell y (more content not included)... Normal [facility] HEMATOLOGYOrdered By: Bridget Baron on 10-25-2023 Basophil [...] Normal 80.0 - 100.0 fL Remisol Heme [place] Absolute 0.4 E9/L Normal 0.2 - 1.0 [...] Coag (PPP) [Time] 31.3 second(s) Normal 25.1-36.5 [facility] Comment on above: Result Comment: Para meter [...] the same coagulation reagent and instrumentation as [facility]. Currently there are no coagulation studies available worldwide for children to 14 days, and no normal ranges. Heparin therapeutic range (represented by Anti-Factor Xa activity of 0.2 - 0.4 U/mL) corresponds to PTT of 56.6 - 109.0 sec. Performed By: #### 1 7406710, 5744980, 1022275, 84481805, 14108196 ####[facility] [address] [place] [address] INR Coag (PPP) [Relative time] 1.11 {INR} Invalid Interpretation Code [facility] Comment on above: Result Comment: INR results are specifically intended to assess patients stabilized on long-term Anticoagulation therapy suggested INR?s ?Less Intensive Anticoagulation? 2.0 ? 3.0 Conventional Range 3.0 ? 4.5 Performed By: #### 1 0202772, 4191753, 0566172, 48250179, 54267915 ####[facility] [address] [place] [address] PT Coag (PPP) [Time] 12.4 second(s) Normal 9.4-12.5 [facility] Comment on above: Result Comment: 15 d [...] the same coagulation reagent and instrumentation as [facility]. Currently there are no coagulation studies available worldwide for children to 14 days, and no normal ranges. Performed By: #### 1 9595634, 5867131, 7581223, 79522189, 48190919 ####[facility] [address] [place] [address] eGFRon 10-25-2023 eGFR 68 mL/min/1.73 m2 Normal >=59 [facility] Comment on above: Order Comment: Order added by Discern Expert. Performed By: #### 1 3502486, 9523483, 6068663, 44890974, 15761153 ####[facility] [address] [place] [address] Heart and Vascular Office/Cl inic Noteon 10-21-2023 [...] with voice recognition artificial intelligence software, specifically Woofound, CogniSens and or Stylyt. Substitutions may have occurred due to the inherent limitations of voice recognition and artificial intelligence software. ATTESTATION: Documentation services were performed after the patient or guardian consented to allow [email or web address] to record this visit. JOANN immigration specialist and provider reviewed before signing. JOANN: Kel [...] 0.5 mg Tab, (more content not included)... [facility] Comment on above: Result Comment: Elec tronically Signed By: Candy SOTELO, Glenn Holbrook\.br\Date and Time Signed: 10/21/23 09:36 EST\.br\Electronically Co-Signed By: Talya Camargo\.br\Date and Time Co-Signed: 10/20/23 17:42 EST Consent for Treatmenton 10-09 Consent for Treatment [id number] [facility] Physician Orderon 10-20-2023 Physician Order [id number]#1.00TIFF [facility] Stress EKG Tracingson 2023 Stress EKG Tracings [id number]#1.00TIFF [facility] Daivd 10-01-2023 L Specimen: [id number] Received: 10/02/23-1321 Status: KARI Monroy Num: [id number] Spec Type: Surgical Subm Dr: Chay Castro Tissues: A Uterus w/ or w/o tubes ovaries except neoplastic or prolap (UTERUS) Procedures: , Gross/Micro L5 Age/ Patient Sex Location Account Attending Physician Azul Huertas 33/F LABELL [id number] Chay Castro SPEC NUM: [id number] RECD: 10/02/23 STATUS: KARI MONROY NUM: [id number] GAURI: 10/01/[address]: Chay Castro ENTERED: 10/02/23 [facility] DR: Kaylen,Lab SPEC TYPE: Surgical DEPT: SHAQUILLE SHIELDS ORDERED: HE/12, Gross/Micro L5 ORDERED: HE/12, Gross/Micro L5 Pathological Diagnosis Uterus and Cervix, [...] prominent trabeculation and no well-circumscribed nodules identified. Retail Associate Manager Bilingual sections are submitted in 4 cassettes as follows: A1 - Posterior cul-de-sac serosa with dull red-brown serosal focus A2 - Anterior and posterior cervix A3 - Anterior endomyometrium A4 - Posterior endomyometrium Specimen: [id number] Received: 10/02/23 Status: KARI Monroy Num: [id number] Spec Type: Surgical Subm Dr: Chay Castro Tissues: A Uterus w/ or w/o tubes ovaries except neoplastic or prolap (UTERUS) Procedures: , Gross/Micro L5 Patient: AgathaprosperAzul short [id number] (Continued) Specimen: [id number] Received: 10/02/23 (Continued) Signed (signature on file) Alexi Mclaughlin MD 10/04/23 1139 Specimen: [id number] Received: 10/02/23 Status: KARI Monroy Num: [id number] Spec Type: Surgical Subm Dr: Chay Castro Tissues: A Uterus w/ or w/o tubes ovaries except neoplastic or prolap (UTERUS) Procedures: , Gross/Micro L5 Patient: Azul Huertas [id number] (Continued) Specimen: [id number] Received: 10/02/23 (Continued) CPT Codes 13784 Specimen: [id number] Received: 10/02/23 Status: KARI Monroy Num: [id number] Spec Type: Surgical Subm Dr: Chay Castro Tissues: A Uterus w/ or w/o tubes ovaries except neoplastic or prolap (UTERUS) Procedures: , Gross/Micro L5 Patient: AgathaporscheAzul [id number] (Continued) Signed (signature on file) Alexi Mclaughlin MD 10/04/23 1139 [facility] Echocardiographyon Echocardiography [id number]#1.00TIFF [facility] Consent for Treatmenton 09-08 Consent for Treatment [id number]#1.00TIFF [facility] Insurance Correspondenceon 10-23-2022 Insurance Correspondence [id number]#1.00TIFF [facility] Auth for Release of Medical Recordson 08-20-2023 Auth for Release of Medical Records [id number]#1.00TIFF [facility] Ambulatory Visit Summaryon 1 10-16-2022 Ambulatory Visit Summary PRINCEAZUL RODRIGUEZ :1990 Visit Date:08/15/2023 Ambulatory Visit Instructions Your [...] choosing us for your care. Normal [facility] General Surgery Office/Clini c Noteon 08-15-2023 General [...] with voice recognition artificial intelligence software, specifically Woofound, CogniSens and or Stylyt. Substitutions may have occurred voice recognition and artificial intelligence software. Documentation services were performed after patient or guardian consented to allow [email or web address] to record this visit. JOANN immigration specialist and provider reviewed before signing. JOANN: [...] Brother. Hypertensio (more content not included)... Normal [facility] Comment on above: Result Comment: Elec tronically Signed By: Alonso SOTELO, Alexx Dowling\.br\Date and Time Signed: 08/15/23 10:55 EST\.br\Electronically Co-Signed By: Rosalva Sánchez\.br\Date and Time Co-Signed: 08/15/23 10:08 EST General Surgery Office/Clinic Note Chief Complaint s/p cholecystectomy HPI Staff Azul is a 33 y.o. female here for s/p cholecystectomy post op pain cholecystectomy done 08/06/2023 Patient phoned office stating she had sever RLQ pain with nausea starting 3 days after surgery She finished the [place] yesterday and states the pain is unbearable [...] with voice recognition artificial intelligence software, specifically Woofound, CogniSens and or Stylyt. Substitutions may have occurred voice recognition and artificial intelligence software. Documentation services were performed after patient or guardian consented to allow [email or web address] to record this visit. JOANN immigration specialist and provider reviewed before signing. JOANN: [...] Instructions Percoce (more content not included)... Normal [facility] Comment on above: Result Comment: Elec [...] partial hysterectomy in 09/2023 as recommended by [facility]. The decision to assess her cardiac [...] abnormal for sinus rhythm and possible anterior HI, although I think it is probably not more likely as a lead issue. However, we will get her a stress echo to evaluate the shortness of breath and abnormal EKG. See her back for follow-up. Chest pain (R07.9: Chest pain, unspecified) Stress echo to evaluate Portions of this record may have been created with voice recognition artificial intelligence software, specifically Woofound, CogniSens and or Stylyt. Substitutions may have occurred due to the inherent limitations of voice recognition and artificial intelligence software. Documentation services were performed after patient or guardian consented to allow [email or web address] to record this visit. JOANN immigration specialist and provider reviewed before signing. JOANN: [...] Oral, Da (more content not included)... Normal [facility] Comment on above: Result Comment: Elec tronically Signed By: Candy SOTELO, Glenn Holbrook\.br\Date and Time Signed: 08/12/23 13:43 EST\.br\Electronically Co-Signed By: Scott Frederick\.br\Date and Time Co-Signed: 08/11/23 17:25 EST Consent for Treatmenton 12-0 Consent for Treatment [id number]#1.00TIFF Normal [facility] IntraOperative Documentson 1 10-12-2022 IntraOperative Documents [id number]#1.00TIFF Normal [facility] Physician Orderon 08-11-2023 Physician Order [id number]#1.00TIFF Normal [facility] Consent for Anesthesiaon Consent for Anesthesia [id number]#1.00TIFF [facility] Discharge Instructionson Discharge Instructions [id number]#1.00TIFF [facility] IntraOperative Documentson 1 10-07-2022 IntraOperative Documents [id number]#1.00TIFF [facility] Main OR Intraoperative Recor don 08-07-2023 Main OR Intraoperative Record IntraOp Document Type FT Summary Primary Physician: Alexx Gupta MD Finalized Date/Time: 08/07/23 13:39:28 Pt. Name: AZUL ONTIVEROS/Sex: 1990 Female Med Rec #: [id number] Physician: Alexx Gupta MD Financial #: [id number] Pt. Type: A Room/Bed: AS101/06 Admit/Disch: 08/06/23 05:51:08 - 08/06/23 11:20:00 Institution: [...] Alexx Graham RN, Natanael Bateman Role Performed LABELING SPECIALIST Surgeon - Primary Mirror Machine Feeder - Primary Time In 08/06/23 07:37:00 08/06/23 07:37:00 08/06/23 07:37:00 Time Out 08/06/23 09:24:00 08/06/23 09:04:00 08/06/23 09:24:00 Procedure CHOLECYSTECOMY ROBOT CHOLECYSTECOMY ROBOT CHOLECYSTECOMY ROBOT ASSISTED(.) ASSISTED(.) ASSISTED(.) Comments , anesthesia call center supervisor Last Modified By: Eduardo TAYLOR, Julianne Graham RN, Natanael Graham RN, Natanael Bateman 08/07/23 13:36:33 08/06/23 09:24:08 08/06/23 09:24:08 Entry 4 Entry 5 Case Attendee Emmanuelle Wilks James W Role Performed Scrub - Primary TAPERING MACHINE OPERATOR/SA Time In 08/06/23 07:37:00 08/06/23 07:37:00 [...] Time Out Felicitas Sanderson CRNA, Given Participants Alexx Gupta MD, Natanael Graham RN, Chaput, Madison A, Boyer, James W Time [...] and tissue Entry 1 Skin Integrity Intact, Nora, Warm, and Skin Abnormality No Dry Outcomes [...] Position Supine (more content not included)... Normal [facility] Pre-Op Checkliston 3 Pre-Op Checklist [id number]#1.00TIFF [facility] CHEMISTRYOrdered By: Lab ROP User on 08-06-2023 Glucose [Mass/Vol] 92 mg/dL Normal 55 - 99 mg/dL [facility] Subsection Comment on above: Result Comment: [place] Meter POC Username COURTNEY DONOVAN Invalid Interpretation Code [facility] Subsection Sodium [Moles/Vol] [id number] mmol/L Invalid Interpretation Code [facility] Subsection Sodium [Moles/Vol] 894024065 mmol/L Invalid Interpretation Code [facility] Subsection Capillary Glucose POCon 07-10 Glucose [Mass/Vol] 92 mg/dL Normal 55-99 [facility] Comment on above: Result Comment: [place] Meter Performed By: #### 2 [id number] ####[facility] [address] [place] [address] Consent for Treatmenton 07-10 Consent for Treatment [id number]#1.00TIFF [facility] Discharge Instructionson Discharge Instructions AZUL ONTIVEROS Jennifer :1990 Visit [...] AM EST With: Alexx Gupta MD Where: [facility] General Surgery [facility] Comment on above: Result Comment: [...] AM EST With: Alexx Gupta MD Where: [facility] General Surgery [facility] Comment on above: Result Comment: [...] AM EST With: Alexx Gupta MD Where: [facility] General Surgery [facility] Comment on above: Result Comment: Elec tronically Signed By: Thelma SETHI, Courtney Rodriguez\.br\Date and Time Signed: 08/15/23 06:03 EST Inpatient Patient Summaryon 08-06-2023 Inpatient Patient Summary [place] [id number] [facility] Clinical Discharge Instructions PERSON INFORMATION Name: AZUL ONTIVEROS [facility]#:[id number] PHYSICIANS Admitting Physician: Alexx Gupta MD Attending Physician: Alexx Gupta MD PCP: TEZ ANGEL MD Discharge Diagnosis: Comment: PATIENT EDUCATION INFORMATION Instructions: Minimally Invasive Cholecystectomy, Care After Medication Leaflets: Follow up: With: Address: When: Alexx Gupta [address] [place] [address] [phone] Business (1) Comments: Appointment has already been scheduled Type Location Start [facility] Cardiology New Patient (FT) [facility] Clinic 08/11/2023 1:30 PM 08/11/2023 1:45 PM Confirmed GS Post Op 15 [facility] 08/15/2023 9:20 AM 08/15/2023 9:40 AM Confirmed MEDICATION LIST New Medications [facility], [address] [place], [place] [id number], [phone] acetaminophen-oxycodone (Percocet 5 mg-325 mg oral tablet) [...] DAILY., Responsible Provider: Tez Angel Comment: Eli [facility] Main OR PACU I Recordon 07-10 Main OR PACU I Record PACU Phase I Document Type FT Summary Primary Physician: Alexx Gupta MD Finalized Date/Time: 08/06/23 10:10:38 Pt. Name: AZUL ONTIVEROS/Sex: 1990 Female Med Rec #: [id number] Physician: Alexx Gupta MD Financial #: [id number] Pt. Type: A Room/Bed: [place] [address] Admit/Disch: 08/06/23 05:51:08 - Institution: Case Times [...] Level Acuity Level I Last Modified By: iBa Perry RN 08/06/23 10:10:34 Finalized By: Bia Perry RN Document Signatures Signed By: Bia Perry RN 08/06/23 10:10 [facility] Main OR PACU II Recordon Main OR PACU II Record PACU Phase II Document Type FT Summary Primary Physician: Alexx Gupta MD Finalized Date/Time: 08/06/23 11:21:37 Pt. Name: PRINCE AZUL ALLEN/Sex: 1990 Female Med Rec #: [id number] Physician: Alexx Gupta MD Financial #: [id number] Pt. Type: A Room/Bed: [place] [address] Admit/Disch: 08/06/23 05:51:08 - Institution: Case Times [...] By: Adeline Elizabeth RN 08/06/23 11:21 Normal [facility] Main OR Preoperative Recordo n 08-06-2023 Main OR Preoperative Record PreOp Document Type FT Summary Primary Physician: Alexx Gupta MD Finalized Date/Time: 08/06/23 08:10:54 Pt. Name: AZUL ONTIVEROS/Sex: 1990 Female Med Rec #: [id number] Physician: Alexx Gupta MD Financial #: [id number] Pt. Type: A Room/Bed: [place] [address] Admit/Disch: 08/06/23 05:51:08 - Institution: Case Times [...] By: Natanael Graham RN 08/06/23 08:10 Normal [facility] Monitor Recordon 08-06-2023 Monitor Record [id number]#1.00TIFF Normal [facility] Operative Reporton Operative Report Indication for Surge ry 33-year-old female with symptomatic cholelithiasis here for robotic cholecystectomy Preoperative Diagnosis CHOLELITHIASIS Postoperative Diagnosis CHOLELITHIASIS Operation CHOLECYSTECOMY ROBOT ASSISTED, ROBOT ASSISTED LAPAROSCOPIC CHOLECYSTECOMY, . Surgeon(s) Alonso SOTELO, Alexx Dowling (Surgeon - Primary) Account Executive Trainee Michael Anesthesia General Mauricio Chang Jr., DO (Insulator Technician) Felicitas Sanderson CRNA (Other) Estimated Blood Loss [...] x2 Patient tolerated the procedure: yes Normal [facility] Comment on above: Result Comment: Elec tronically Signed By: Alonso SOTELO, Alexx Dowling\.br\Date and Time Signed: 08/06/23 09:40 EST Outpatient Surgery Discharge Instructionon 08-06-2023 Outpatient Surgery Discharge Instruction [place] [id number] Patient Discharge Instructions PERSON INFORMATION Name: PRINCE OWENSAZUL OATES Date of : 1990 Current Date: 08/06/2023 09:34:08 PHYSICIANS Admitting Physician: Alonso SOTELO, Alexx Dowling Discharge Diagnosis: AZUL ONTIVEROS has been given [...] THE NEAREST EMERGENCY ROOM OR CALL 911 I, AZUL ONTIVEROS, have received the attached patient education materials/instructions and have verbalized understanding: May we do a follow up call? Yes No I was present when discharge instructions were given ____ Patient Signature _ Date Clinican/Nurse Signature Date Follow up: With: Address: When: Alexx Gupta [facility] [address], [place] [address], [facility] [address] [place] [phone] Business (1) Comments: Appointment has already been scheduled Type Location Start [facility] Cardiology New Patient (FT) FT.Cardiology Clinic 08/11/2023 1:30 PM 08/11/2023 1:45 PM Confirmed GS Post Op 15 [facility] [place] 08/15/2023 9:20 AM 08/15/2023 9:40 AM Confirmed [...] to serve you. Thank you for choosing [facility] HERE ARE THE MEDICATION CHANGES THAT OCCURRED DURING YOUR HOSPITAL STAY New Medications [facility] [address], [address] [place] [id number], [phone] acetaminophen-oxycodone (Percocet 5 mg-325 mg oral tablet) [...] to care (more content not included)... Normal [facility] Patient Education - Texton 1 10-06-2022 [...] these instructions at home: Medicines ? Take gomj-lpe-lbzkzut and prescription medicines only as told by [...] keep your urine pale yellow. ? Take aycz-dju-blzbgnq or prescription medicines. ? Eat foods that [...] and water are not available, use hand marketing production specialist. ? Change your dressing as told [...] if yo (more content not included)... Normal [facility] Progress Note-Physicianon Progress Note-Physician Patient: AZUL ONTIVEROS Age: 33 years Sex: Female : 1990 Associated Diagnoses: None Author: Mauricio Chang Jr., DO Postoperative Information Postoperative disposition: Postoperative disposition: Home. Optimetrix number: Optimetrix number [id number]. Anesthetic utilized: General. Physical Examination Vital Signs [...] Surgery Unit, and To home ). Normal [facility] Comment on above: Result Comment: Elec [...] 1 EA, Refill(s) 0, Prior to colonoscopy., [facility], 157.5, cm, 07/08/23 14:03:00 EDT, Height/Length Dosing, 129.5, kg, 07/08/23 14:03:00 EDT, Weight Dosing Protonix 40 mg Tab-DR: 40 mg = 1 tab(s), Oral, Daily, # 90 tab(s), Refills(s) 1, Pharmacy: [facility], 152.4, cm, 08/10/21 14:17:00 EST, Height/Length [...] list: All Problems Anemia / SNOMED CT 858988858 / Confirmed Anxiety / SNOMED CT 78862276 / Confirme (more content not included)... Normal [facility] Comment on above: Result Comment: Elec tronically Signed By: Mauricio Chang Jr., DO\.br\Date and Time Signed: 08/06/23 07:29 EST Consent for Procedure/Surger yon 07-28-2023 Consent for Procedure/Surgery [id number]#1.00TIFF Normal [facility] Auto Diffon 07-25-2023 Basophils/100 WBC (Bld) 0.4 % Normal 0.0-2.0 [facility] Comment on above: Order Comment: Order Added by Discern Expert. Performed By: #### 2 [id number], [id number] #### [facility] [address] [place] [address] Basophils/Leukocytes Auto (Bld) [Pure # fraction] 0.0 E9/L Normal 0.0-0.2 [facility] Comment on above: Order Comment: Order Added by Discern Expert. Performed By: #### 2 633813, [id number] #### [facility] [address] [place] [address] Eosinophils/100 WBC (Bld) 0.9 % Normal 0.0-8.0 [facility] Comment on above: Order Comment: Order Added by Discern Expert. Performed By: #### 2 920979, [id number] #### [facility] [address] [place] [address] Eosinophils/Leukocyt es Auto (Bld) [Pure # fraction] 0.0 E9/L Normal 0.0-0.5 [facility] Comment on above: Order Comment: Order Added by Discern Expert. Performed By: #### 2 346288, [id number] #### [facility] [address] [place] [address] Lymphocytes/100 WBC (Bld) 29.0 % Normal 14.0-50.0 [facility] Comment on above: Order Comment: Order Added by Kyle Expert. Performed By: #### 2 206881, [id number] #### [facility] [address] [place] [address] Lymphocytes/Leukocyt es Auto (Bld) [Pure # fraction] 1.5 E9/L Normal 1.0-4.0 [facility] Comment on above: Order Comment: Order Added by Kyle Expert. Performed By: #### 2 571906, [id number] #### [facility] [address] [place] [address] Monocytes/100 WBC (Bld) 8.4 % Normal 4.0-14.0 [facility] Comment on above: Order Comment: Order Added by Discern Expert. Performed By: #### 2 296302, [id number] #### [facility] [address] [place] [address] Monocytes/Leukocytes Auto (Bld) [Pure # fraction] 0.4 E9/L Normal 0.2-1.0 [facility] Comment on above: Order Comment: Order Added by Kyle Expert. Performed By: #### 2 057291, [id number] #### [facility] [address] [place] [address] Neutrophils/100 WBC (Bld) 61.3 % Normal 36.0-75.0 [facility] Comment on above: Order Comment: Order Added by Discern Expert. Performed By: #### 2 865639, [id number] #### [facility] [address] [place] [address] Neutrophils/Leukocyt es Auto (Bld) [Pure # fraction] 3.3 E9/L Normal 2.0-7.5 [facility] Comment on above: Order Comment: Order Added by Discern Expert. Performed By: #### 2 917817, [id number] #### [facility] [address] [place] [address] CBC w/ Auto Diffon Erythrocyte distribution width (RBC) [Ratio] 12.9 % Normal 10.9-14.2 [facility] Comment on above: Performed By: #### 2 608720, [id number] #### [facility] [address] [place] [address] Hematocrit (Bld) [Volume fraction] 36.5 % Normal 34.0-46.0 [facility] Comment on above: Performed By: #### 2 472381, [id number] #### [facility] [address] [place] [address] Hemoglobin (Bld) [Mass/Vol] 12.1 g/dL Normal 12.0-16.0 [facility] Comment on above: Performed By: #### 2 198291, 4095094 #### [facility] [address] [place] [address] MCH (RBC) [Entitic mass] 31.1 pg Normal 27.0-34.0 [facility] Comment on above: Performed By: #### 2 177710, 8132919 #### [facility] [address] [place] [address] MCHC (RBC) [Mass/Vol] 33.3 g/dL Normal 31.4-36.0 [facility] Comment on above: Performed By: #### 2 890602, 5480606 #### [facility] [address] [place] [address] MCV (RBC) [Entitic vol] 93.3 fL Normal 80.0-100.0 [facility] Comment on above: Performed By: #### 2 719409, 5327691 #### [facility] [address] [place] [address] Platelet mean volume (Bld) [Entitic vol] 8.6 fL Normal 6.4-10.8 [facility] Comment on above: Performed By: #### 2 045629, 8948054 #### [facility] [address] [place] [address] Platelets (Bld) [#/Vol] 227.0 E9/L Normal 150.0-500. 0 [facility] Comment on above: Performed By: #### 2 478451, [id number] #### [facility] [address] [place] [address] RBC (Bld) [#/Vol] 3.9 E12/L Low 4.3-5.9 [facility] Comment on above: Performed By: #### 2 910862, [id number] #### [facility] [address] [place] [address] WBC corrected for nucl RBC Auto (Bld) [#/Vol] 5.3 E9/L Normal 4.0-11.0 [facility] Comment on above: Performed By: #### 2 233386, [id number] #### [facility] [address] [place] [address] Maxillofacial w/o Contras ton 07-25-2023 CT [...] Latasha Arciniega MD Transcribed by: KARL Technologist: [facility] Consent for Treatmenton 07-09 Consent for Treatment [id number]#1.00TIFF [facility] HEMATOLOGYOrdered By: SYSTEM SYSTEM on 07-25-2023 [...] 61.3 % Normal 36.0 - 75.0 % FT HemeAutoSS Neutrophils/Leukocyt es Auto (Bld) [Pure # fraction] 3.3 E9/L Normal 2.0 - 7.5 E9/L FT HemeAutoSS HEMATOLOGYOrdered By: Christiana Johnson on 07-25-2023 [...] 33.3 g/dL Normal 31.4 - 36.0 gm/dL FT HemeAutoSS MCV (RBC) [Entitic vol] 93.3 fL Normal 80.0 - 100.0 fL [facility] HemeAutoSS Platelet mean volume (Bld) [Entitic vol] 8.6 fL Normal 6.4 - 10.8 fL FT HemeAutoSS Platelets (Bld) [#/Vol] 227.0 E9/L Normal 150.0 - 500.0 E9/L [facility] HemeAutoSS RBC (Bld) [#/Vol] 3.9 E12/L Low 4.3 - 5.9 E12/L FT HemeAutoSS WBC corrected for nucl RBC Auto (Bld) [#/Vol] 5.3 E9/L Normal 4.0 - 11.0 E9/L [facility] HemeAutoSS Consent for Treatmenton 07-09 Consent for Treatment [id number]#1.00TIFF Normal [facility] Consent for Procedure/Surger yon 07-23-2023 Consent for Procedure/Surgery [id number]#1.00TIFF Normal [facility] Insurance Correspondenceon 09-21-2022 Insurance Correspondence [id number]#1.00TIFF [facility] Ambulatory Visit Summaryon 1 09-20-2022 Ambulatory Visit [...] AM EST With: Alexx Gupta MD Where: [facility] General Surgery [facility] General Surgery Office/Clini c Noteon 07-21-2023 General Surgery Office/Clinic Note Chief Complaint RUQ pain HPI Staff [place] 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 female here [...] with voice recognition artificial intelligence software, specifically Woofound, CogniSens and or Stylyt. Substitutions may have occurred voice recognition and artificial intelligence software. Documentation services were performed after patient or guardian consented to allow [employer] to record this visit. JOANN immigration specialist and provider reviewed before signing. JOANN: [...] unknown Tobacco (more content not included)... Normal [facility] Comment on above: Result Comment: Elec [...] ovarian syndrome (PCOS). ? Binge-eating disorder. ? [place] syndrome. ? Taking certain medicines, such as [...] food choices, such as grocery stores and In [employer] markets. What are the signs or symptoms? [...] you have to (more content not included)... [facility] Insurance Correspondenceon 1 09-15-2022 Insurance Correspondence [id number]#[id number] [facility] Physician Orderon 07-16-2023 Physician Order [id number]#1.00TIFF [facility] US Gallbladderon 07-15-2023 US Gallbladder Exam [...] Fitch M.D. Transcribed by: KARL Technologist: SERAFIN [facility] Consent for Treatmenton Consent for Treatment [id number]#1.00TIFF [facility] Ambulatory Visit Summaryon 1 Ambulatory Visit Summary AZUL ONTIVEROS :1990 Visit Date:07/08/2023 Ambulatory Visit Instructions Your Diagnosis Epigastric abdominal pain Nausea Irregular bowel habits BRBPR (bright red blood per rectum) Chest pain Your Care Team Attending Physician - Melissa Nunez CNP A Primary Care Physician - TEZ ANGEL MD [...] Abdominal pain, No, Epigastric abdominal pain Normal [facility] Gastroenterology Office/Clin ic Noteon 07-08-2023 Gastroenterology Office/Clinic Note Chief Complaint Upper abdominal pain and pain when breathing. HPI Staff This is a 32 year old female who presents today for a follow up from [facility] on 06/23/23, for complaints of GERD/ gastritis. Dr Angel referred patient to for gallbladder. History of Present Illness Patient is a 32-year-old female who presents for follow-up from ED visit 06/23/2023 at [facility]. Presents with female visitor today. Review [...] father, diagnosed in his 30s and hx. [place] at age early 40s, reports her father [...] She explains she used to drink alcohol [id number]: 3 cans of beer and 1/2 gallon [...] Ordered EGD. Ordered: EGD Endoscopy (Hospital Procedure) [facility] Internal Ambulatory Referral US Gallbladder 2. Nausea [...] Ordered EGD. Ordered: EGD Endoscopy (Hospital Procedure) [facility] Internal Ambulatory Referral US Gallbladder 3. Irregular [...] in c (more content not included)... Normal [facility] Comment on above: Result Comment: Elec tronically Signed By: Mayra POOLE, Melissa Whaley\.br\Date and Time Signed: 07/08/23 14:43 EDT Patient [...] added (diluted fruit juice). ? Eat bland, kdiw-wf-xttcmk foods in small amounts as you are able. These foods include bananas, applesauce, rice, lean meats, toast, and crackers. ? Avoid drinking fluids that contain a lot of sugar or caffeine, such as energy drinks, sports drinks, and soda. ? Avoid alcohol. ? Avoid spicy or fatty foods. General instructions ? Take xcqz-nrw-zogenld and prescription medicines only as told by [...] and water are not available, use hand marketing production specialist. ? Make sure that everyone in [...] recommendations for eating and drinking and take flxj-cls-gjmibeg and prescription medicines only as told by [...] provider. Document Revised: 03/01/2022 Document Reviewed: 03/01/2022 Master Equation Patient Education ? 2022 gokit. [facility] Reminderson 07-08-2023 Reminders - From: Zoya Deal To: [facility] - Reminders/Recalls; Sent: 07/08/2023 14:50:43 EDT Show up: 07/08/2023 14:51:00 EDT Subject: Ambulatory Reminder Medicaid [place] Reminder/Recall call pt and schedule EGD and Colon with Dr. Patino once Medicaid [place] has been approved. Normal [facility] Physician Referralon 023 Physician Referral [id number]#1.00TIFF Normal [facility] Auto Diffon 06-23-2023 Basophils/100 WBC (Bld) 0.4 % Normal 0.0-2.0 [facility] Comment on above: Order Comment: Order Added by Discern Expert. Performed By: #### 2 783590, 1150717, 7004433, 7197104, 4515560, 86107939, 56529015 #### [facility] [address] [place] [address] Basophils/Leukocytes Auto (Bld) [Pure # fraction] 0.0 E9/L Normal 0.0-0.2 [facility] Comment on above: Order Comment: Order Added by Discern Expert. Performed By: #### 2 477762, 9011703, 6581954, 2055056, 9301482, 92260507, 64276739 #### [facility] [address] [place] [address] Eosinophils/100 WBC (Bld) 0.6 % Normal 0.0-8.0 [facility] Comment on above: Order Comment: Order Added by Discern Expert. Performed By: #### 2 156792, 3760099, 7272976, 1224696, 6444987, 97494498, 02762806 #### [facility] [address] [place] [address] Eosinophils/Leukocyt es Auto (Bld) [Pure # fraction] 0.0 E9/L Normal 0.0-0.5 [facility] Comment on above: Order Comment: Order Added by Discern Expert. Performed By: #### 2 468485, 7659236, 1727348, 9439839, 0331267, 17577430, 73694140 #### [facility] [address] [place] [address] Lymphocytes/100 WBC (Bld) 13.9 % Low 14.0-50.0 [facility] Comment on above: Order Comment: Order Added by Discern Expert. Performed By: #### 2 433238, 6142930, 6031845, 1539031, 0839933, 73023053, 48116234 #### [facility] [address] [place] [address] Lymphocytes/Leukocyt es Auto (Bld) [Pure # fraction] 1.0 E9/L Normal 1.0-4.0 [facility] Comment on above: Order Comment: Order Added by Discern Expert. Performed By: #### 2 518884, 3708184, 3909917, 6333601, 1069447, 34131592, 12150249 #### [facility] [address] [place] [address] Monocytes/100 WBC (Bld) 5.5 % Normal 4.0-14.0 [facility] Comment on above: Order Comment: Order Added by Discern Expert. Performed By: #### 2 371497, 6245220, 9916682, 8756971, 3140350, 92615304, 79103831 #### [facility] [address] [place] [address] Monocytes/Leukocytes Auto (Bld) [Pure # fraction] 0.4 E9/L Normal 0.2-1.0 [facility] Comment on above: Order Comment: Order Added by Discern Expert. Performed By: #### 2 057365, 2492174, 4452923, 6685836, 5833263, 00485338, 81739563 #### [facility] [address] [place] [address] Neutrophils/100 WBC (Bld) 79.6 % High 36.0-75.0 [facility] Comment on above: Order Comment: Order Added by Discern Expert. Performed By: #### 2 508540, 9212454, 3377187, 2241252, 2033627, 53709814, 96935472 #### [facility] [address] [place] [address] Neutrophils/Leukocyt es Auto (Bld) [Pure # fraction] 5.5 E9/L Normal 2.0-7.5 [facility] Comment on above: Order Comment: Order Added by Discern Expert. Performed By: #### 2 866245, 7648149, 4745424, 4465200, 0445965, 59217753, 70494636 #### [facility] [address] [place] [address] B hCG Qualon 06-23-2023 Beta hCG Ql Negative Normal [facility] Comment on above: Performed By: #### 2 020485, 8028426, 0559634, 0550821, 9959008, 52743747, 52017639 ####[facility] [address] [place] [address] BMPon 06-23-2023 Creatinine [Mass/Vol] 1.1 mg/dL Normal 0.5-1.3 [facility] Comment on above: Performed By: #### 2 913577, 0243309, 4044114, 9129946, 6911501, 54251704, 41092592 ####[facility] [address] [place] [address] Urea nitrogen [Mass/Vol] 17 mg/dL Normal 5-21 [facility] Comment on above: Performed By: #### 2 348432, 0842034, 7017634, 9580409, 3335323, 55377832, 69678515 ####[facility] [address] [place] [address] Urea nitrogen/Creatinine [Mass ratio] 16 No Units Normal -20 [facility] Comment on above: Performed By: #### 2 956135, 7807928, 2969314, 5129283, 7810708, 62401066, 86526362 ####[facility] [address] [place] [address] Anion gap [Moles/Vol] 9 mmol/L Normal 6-16 [facility] Comment on above: Performed By: #### 2 737114, 9977301, 1370217, 6185490, 8692680, 11310541, 05816312 ####[facility] [address] [place] [address] Calcium [Mass/Vol] 8.8 mg/dL Low 8.9-11.1 [facility] Comment on above: Performed By: #### 2 971884, 0379953, 0486745, 4221127, 1481898, 55167232, 37964718 ####[facility] [address] [place] [address] Chloride [Moles/Vol] 111 mmol/L Normal 101-111 [facility] Comment on above: Performed By: #### 2 026337, 1147004, 2981840, 2095451, 4647828, 57127025, 87202295 ####[facility] [address] [place] [address] CO2 [Moles/Vol] 18 mmol/L Low 21-31 [facility] Comment on above: Performed By: #### 2 600154, 0969790, 9914625, 0917902, 4260078, 30920880, 28568978 ####[facility] [address] [place] [address] Glucose [Mass/Vol] 142 mg/dL Normal 55-199 [facility] Comment on above: Result Comment: If t his glucose result represents a fasting glucose, interpretation should refer to the following reference range: 55-99 mg/dL Performed By: #### 2 212341, 5326892, 3509558, 7547787, 8718866, 83741136, 97072708 ####[facility] [address] [place] [address] Potassium [Moles/Vol] 3.9 mmol/L Normal 3.5-5.3 [facility] Comment on above: Performed By: #### 2 916773, 8658274, 3997554, 7855765, 1306599, 27551563, 36176667 ####[facility] [address] [place] [address] Sodium [Moles/Vol] 134 mmol/L Low 135-145 [facility] Comment on above: Performed By: #### 2 464565, 7235616, 0102243, 8507028, 3251952, 21430641, 63159151 ####[facility] [address] [place] [address] CBC w/ Auto Diffon 3 Erythrocyte distribution width (RBC) [Ratio] 12.3 % Normal 10.9-14.2 [facility] Comment on above: Performed By: #### 2 149710, 0597014, 2534790, 3211949, 6343537, 80583836, 57668712 #### [facility] [address] [place] [address] Hematocrit (Bld) [Volume fraction] 38.3 % Normal 34.0-46.0 [facility] Comment on above: Performed By: #### 2 880912, 2402351, 7413699, 0393802, 6356575, 43966267, 32012454 #### [facility] [address] [place] [address] Hemoglobin (Bld) [Mass/Vol] 13.1 g/dL Normal 12.0-16.0 [facility] Comment on above: Performed By: #### 2 625520, 2232223, 3634788, 8774422, 6475113, 20630749, 70053989 #### [facility] [address] [place] [address] MCH (RBC) [Entitic mass] 31.4 pg Normal 27.0-34.0 [facility] Comment on above: Performed By: #### 2 898404, 0323474, 7919530, 4031629, 3943647, 54224239, 13827737 #### [facility] [address] [place] [address] MCHC (RBC) [Mass/Vol] 34.2 g/dL Normal 31.4-36.0 [facility] Comment on above: Performed By: #### 2 358231, 3451688, 8254422, 3326316, 4533380, 28186327, 00166172 #### [facility] [address] [place] [address] MCV (RBC) [Entitic vol] 91.8 fL Normal 80.0-100.0 [facility] Comment on above: Performed By: #### 2 531729, 2999572, 4388417, 2951520, 4680565, 81950881, 79875993 #### [facility] [address] [place] [address] Platelet mean volume (Bld) [Entitic vol] 8.8 fL Normal 6.4-10.8 [facility] Comment on above: Performed By: #### 2 918161, 6344260, 7941001, 3247648, 8692205, 97153996, 35716770 #### [facility] [address] [place] [address] Platelets (Bld) [#/Vol] 201.0 E9/L Normal 150.0-500. 0 [facility] Comment on above: Performed By: #### 2 324540, 1098608, 4282876, 2736977, 3869222, 28636622, 05177575 #### [facility] [address] [place] [address] RBC (Bld) [#/Vol] 4.2 E12/L Low 4.3-5.9 [facility] Comment on above: Performed By: #### 2 726180, 2731261, 3523296, 9595190, 9036336, 31419965, 12489676 #### [facility] [address] [place] [address] WBC corrected for nucl RBC Auto (Bld) [#/Vol] 6.9 E9/L Normal 4.0-11.0 [facility] Comment on above: Performed By: #### 2 933076, 3174519, 8058518, 4875288, 3395254, 09797750, 01552024 #### [facility] [address] [place] [address] [place] [address] CHEMISTRYOrdered By: SYSTEM SYSTEM on 06-23-2023 Albumin [...] 68 mL/min/1.73 m2 Normal >=59mL/min /1.73 m2 [facility] S Comment on above: Interpretive Data: [...] Consent for Treatmenton 06-08 Consent for Treatment [id number]#1.00TIFF Normal [facility] Discharge Instructionson Discharge Instructions [id number]#1.00TIFF Normal [facility] ED Clinical Summaryon 2022 ED Clinical Summary (Inserted Image. Zenaida ble to display) [place] [address] ED Clinical Summary Person Information Name: PRINCE OWENSKrystlePROSPERAZUL SHORT/[facility] Age: 32 Years : 1990 Sex: Female Language: Albanian PCP: TEZ ANGEL MD Marital Status: Single [...] 06/23/2023 12:53:50 06/23/2023 12:53:50 06/23/2023 12:53:50 ADDRESS: [address] [place] [id number] [facility] DOC NOTES: MEDICAL INFORMATION: Prescriptions Given: New [...] Adult Follow up: With: Address: When: Michael Cooper [facility], [facility] [place] [address], [address] [phone] Business (1) In 3 days 06/26/2023 With: Address: When: TEZ ANGEL [facility] [place] [phone] Business (1) In 3 days 06/26/2023 DIAGNOSIS: Gastritis Normal [facility] ED Note-Physicianon 06-23-20 ED Note-Physician Basic [...] Patino In 3 days 06/26/2023 EDT [address], [address] [phone] Business (1) Additional Instructions: TEZ ANGEL In 3 days 06/26/2023 EDT [address] [place] [address] Business (1) Additional Instructions: Patient Education Gastritis, Adult Attestation Patient seen and evaluated by the physician dental assistant. Attending physician was present in the emergency department and supervised care. This visit was performed by both the physician and an APC. I performed all aspects of the MDM as documented. This report was transcribed using voice recognition software. Every effort was made to ensure accuracy, however, inadvertently computerized passenger vessel chef mistakes may be present. Appropriate healthcare PPE [...] Positive dilut (more content not included)... Normal [facility] Comment on above: Result Comment: Elec tronically Signed By: Tosha BLAS, Alban\.br\Date and Time Signed: 10/16/23 13:46 EDT\.br\Electronically Co-Signed By: Alexx Pena DO\.min\Date and Time Co-Signed: 06/23/23 18:37 EDT ED [...] medicines. These include steroids, antibiotics, and some vrxe-dxc-vzqgcer medicines, such as aspirin or ibuprofen. ? [...] these instructions at home: Medicines ? Take ivop-iqg-yjmvsig and prescription medicines only as told by [...] your stom (more content not included)... Normal [facility] ED Patient Summaryon 023 ED Patient Summary (Inserted Image. Zenaida ble to display) [address] [address] Patient Discharge Instructions Person Information Name: AZUL ONTIVEROS Age: 32 Years Arrival Date: 06/23/2023 09:19:14 Discharge Diagnosis: Gastritis Primary Care Physician: TEZ ANGEL MD Provider Information Primary Provider: Alexx Pena DO Advanced System Trainer:Alban Givens PA-C The exam and treatment you received in the Emergency Department were for an urgent problem and are not intended as complete care. It is important that you follow up with a doctor, nurse practitioner, or physician?s dental assistant for ongoing care. If your symptoms become worse or you do not improve as expected and you are unable to reach your usual health care provider, you should return to the Emergency Department. We are available 24 hours a day. PRINCE OWENSKrystleAZUL GONZALEZ has been given the following list of patient education materials, prescriptions and follow-up instructions: Follow-up Instructions: With: Address: When: Michael Patino [address] [facility], [address], [address] [phone] Business (1) In 3 days 06/26/2023 With: Address: When: TEZ ANGEL [address] [place], [place] [phone] Business (1) In 3 days 06/26/2023 In the event that this physician does not participate in your insurance network, please consult with your insurance company to find a nearby participating provider. Patient Education Materials: Gastritis, Adult A MESSAGE TO ALL PATIENTS REGARDING OPIOIDS PRESCRIPTION OPIOIDS: WHAT YOU NEED TO KNOW Prescription opioids can be used to help relieve cpoxbpyh-rs-jzzcpn pain and are often prescribed following a [...] struggling wit (more content not included)... Normal [facility] HEMATOLOGYOrdered By: SYSTEM SYSTEM on 06-23-2023 [...] 91.8 fL Normal 80.0 - 100.0 fL FT [...] 06-23-2023 Albumin [Mass/Vol] 3.5 g/dL Normal 3.3-5.0 [facility] Comment on above: Performed By: #### 2 577331, 4983751, 0138830, 7583788, 2472722, 99603248, 32806004 ####[facility] [address] [place] [address] Albumin/Globulin (S) [Mass conc ratio] 1.1 Normal 1.1-2.2 [facility] Comment on above: Performed By: #### 2 831588, 0377640, 9154924, 0183010, 3724220, 03391161, 16458535 ####[facility] [address] [place] [address] ALP [Catalytic activity/Vol] 77 Int._Unit/L Normal 21-98 [facility] Comment on above: Performed By: #### 2 632584, 2499981, 4945576, 8594548, 2478064, 68975556, 46995324 ####[facility] [address] [place] [address] ALT No additional P-5'-P [Catalytic activity/Vol] 17 Int._Unit/L Normal 6-46 [facility] Comment on above: Performed By: #### 2 111908, 3533233, 6012587, 3194827, 9330656, 11597741, 22095549 ####[place] [address] [place] [address] AST [Catalytic activity/Vol] 22 Int._Unit/L Normal 5-43 [facility] Comment on above: Performed By: #### 2 657347, 8403511, 4265597, 9638408, 9855166, 41951514, 56663853 ####[facility] [address] [place] [address] Bilirubin [Mass/Vol] 0.5 mg/dL Normal 0.0-1.1 [facility] Comment on above: Performed By: #### 2 606124, 9681962, 7412517, 5285729, 8066962, 45600203, 58543008 ####[facility] [address] [place] [address] Bilirubin.direct [Mass/Vol] 0.2 mg/dL Normal 0.1-0.4 [facility] Comment on above: Performed By: #### 2 350881, 5417394, 3309552, 0547391, 7448118, 28897327, 51710319 ####[facility] [address] [place] [address] Bilirubin.indirect [Mass or moles/Vol] 0.3 mg/dL Normal 0.1-0.9 [facility] Comment on above: Performed By: #### 2 135911, 7777148, 9881523, 2827980, 0002398, 86250388, 30165550 ####[facility] [address] [place] [address] Globulin (S) [Mass/Vol] 3.3 g/dL Normal 1.4-4.0 [facility] Comment on above: Performed By: #### 2 938472, 5368355, 1449093, 9705714, 1748569, 56316476, 17518513 ####[facility] [address] [place] [address] Protein [Mass/Vol] 6.8 g/dL Normal 6.0-7.8 [facility] Comment on above: Performed By: #### 2 106319, 7234520, 1992580, 9148813, 8794805, 95462286, 34695244 ####[facility] [address] [place] [address] Lipase Levelon 06-23-2023 Lipase [Catalytic activity/Vol] 28 U/L Normal 13-58 [facility] Comment on above: Performed By: #### 2 406854, 6503390, 6205264, 3450919, 3990458, 74720271, 10588132 #### [facility] [address] [place] [address] SEROLOGYOrdered By: Tami Randle on 06-23-2023 Beta hCG Ql Negative (06/23/23 10:07 AM) Normal [facility] Man Sero UA With Cult Reflexon 2022 Bacteria LM Ql (Urine sed) TRACE Normal Trace [facility] Comment on above: Performed By: #### 1 1987143 #### [facility] [address] [place] [address] Bilirubin Ql (U) Negative Normal Negative [facility] Comment on above: Performed By: #### 1 6049753 #### [facility] [address] [place] [address] Clarity (U) SL CLOUDY Invalid Interpretation Code [facility] Comment on above: Performed By: #### 1 0645241 #### [facility] [address] [place] [address] Color (U) RED Abnormal Yellow [facility] Comment on above: Performed By: #### 1 9589426 #### [facility] [address] [place] [address] Epithelial cells.squamous LM.HPF (Urine sed) [#/Area] 3-4 Normal 0-2 [facility] Comment on above: Performed By: #### 1 7060791 #### [facility] [address] [place] [address] Glucose Test strip (U) [Mass/Vol] Negative Normal Negative [facility] Comment on above: Performed By: #### 1 0171710 #### [facility] [address] [place] [address] Hemoglobin Ql (U) 3+ Abnormal Negative [facility] Comment on above: Performed By: #### 1 1483349 #### [facility] [address] [place] [address] Ketones (U) [Mass/Vol] Negative Normal Negative [facility] Comment on above: Performed By: #### 1 9995975 #### [facility] [address] [place] [address] [place].plasma/Lithi um.RBC (Bld) [Mass ratio] >75 Abnormal 0-3 [facility] Comment on above: Performed By: #### 1 3485934 #### [facility] [address] [place] [address] Mucus Ql (Urine sed) TRACE Normal [facility] Comment on above: Performed By: #### 1 5831399 #### [facility] [address] [place] [address] Nitrite Ql (U) Negative Normal Negative [facility] Comment on above: Performed By: #### 1 9320819 #### [facility] [address] [place] [address] pH (U) 6.0 [pH] Invalid Interpretation Code 5.0-9.0 [facility] Comment on above: Performed By: #### 1 7433352 #### [facility] [address] [place] [address] Protein (U) [Mass/Vol] 1+ Abnormal Negative [facility] Comment on above: Performed By: #### 1 5977912 #### [facility] [address] [place] [address] Specific gravity (U) [Rel density] <=1.005 Invalid Interpretation Code 1.005-1.03 0 [facility] Comment on above: Performed By: #### 1 7365477 #### [facility] [address] [place] [address] Type of Urine collection method Clean Catch Normal [facility] Comment on above: Performed By: #### 1 7110794 #### [facility] [address] [place] [address] Urobilinogen Qn (U) 0.2 {Stevenson'U}/dL Normal 0.0-1.0 [facility] Comment on above: Performed By: #### 1 0564224 #### [facility] [address] [place] [address] WBC Auto Ql (U) Negative Normal Negative [facility] Comment on above: Performed By: #### 1 5579311 #### [facility] [address] [place] [address] WBC LM.HPF (Urine sed) [#/Area] 0-5 Normal 0-5 [facility] Comment on above: Performed By: #### 1 2241169 #### [facility] [address] [place] [address] URINALYSISOrdered By: Dinorah Randle on 06-23-2023 Bacteria [...] AM) Normal Negative [facility] UA Auto SS [employer] [place].plasma/Lithi um.RBC (Bld) [Mass ratio] >75 /HPF Invalid Interpretation Code 0-3/HPF [facility] UA Auto SS Mucus Ql (Urine sed) Trace (06/23/23 11:23 AM) Normal [facility] UA Auto SS Nitrite Ql (U) Negative (06/23/23 11:23 AM) Normal Negative [facility] UA Auto SS pH (U) 6.0 *NA* (06/23/23 11:23 AM) Invalid Interpretation Code 5.0 - 9.0 [facility] UA Auto SS Protein (U) [Mass/Vol] 1+ *ABN* (06/23/23 11:23 AM) Invalid Interpretation Code Negative [facility] UA Auto SS Specific gravity (U) [Rel density] <=1.005 *NA* (06/23/23 11:23 AM) Invalid Interpretation Code 1.005 - 1.030 FT UA Auto SS UA Spec Desc Clean Catch (06/23/23 11:23 AM) Normal [facility] UA Auto SS Urobilinogen Qn (U) [id number] {Stevenson'U}/dL Normal 0.0 - 1.0 EU/dL FT UA Auto SS WBC Auto Ql (U) Negative (06/23/23 11:23 AM) Normal Negative FT UA Auto SS WBC LM.HPF (Urine sed) [#/Area] 0-5 /HPF Normal 0-5/HPF [facility] UA Auto SS XR Chest Single Viewon [...] mGy = na DAP = na Normal [facility] eGFRon 06-23-2023 GFR/1.73 sq M.predicted among non-blacks MDRD (S/P/Bld) [Vol rate/Area] 68 mL/min/1.73 m2 Normal >=59 [facility] Comment on above: Order Comment: Order added by Discern Expert. Result Comment: Healthcare Economics Manager jaden kidney disease could be indicated at eGFR's of less than 60 mL/min/1.73m2. Kidney failure is indicated at less than 15 mL/min/1.73m2. Performed By: #### 2 [id number], [id number], [id number] ####[facility] [id number] [place] [address] TSHon 01-09-2023 TSH 1.192 uIU/mL Normal 0.358-3.74 0 [facility] Comment on above: Performed By: #### T SH #### [facility] [address] [place] [address] Dr. Gage Mathis PAP ACOG PANEL 2: 30 to 65on 01-08-2023 . . Normal [facility] Comment on above: Result Comment: Perf ormed at: WB Performed By: #### L IVER, LIPID, TSH, FT3, BMP #### [facility] [address] [place] [address] Dr. Gage Mathis Age Gdln ACOG Testing 30-65 Normal [facility] Comment on above: Performed By: #### L IVER, LIPID, TSH, FT3, BMP #### [facility] [address] [place] [address] Dr. Gage Mathis DIAGNOSIS: Comment Normal [facility] Comment on above: Result Comment: NEGA TIVE FOR INTRAEPITHELIAL LESION OR MALIGNANCY. THIS SPECIMEN WAS RESCREENED PART OF OUR DIGITAL SALES PLANNER PROGRAM. Performed at: WB Performed By: #### L IVER, LIPID, TSH, FT3, BMP #### [facility] [address] [address] [address] Gage Mathis HPV Aptima Negative Normal Negative [facility] Comment on above: Result Comment: This nucleic acid amplification test detects fourteen high-risk HPV types (16,18,31,33,35,39,45,51,52,56,58,59,66,68) without differentiation. Performed at: =G Performed By: #### L IVER, LIPID, TSH, FT3, BMP #### [facility] [address] [address] [address] Gage Mathis HPV Genotype Reflex Comment Normal [facility] Comment on above: Result Comment: Crit eria not met, HPV Genotype not performed. Performed at: WB Performed By: #### L IVER, LIPID, TSH, FT3, BMP #### [facility] [address] [address] [address] Gage Mathis Methodology: Comment Normal [facility] Comment on above: Result Comment: This liquid based ThinPrep(R) pap test was screened with the use of an image guided system. Performed at: WB Performed By: #### L IVER, LIPID, TSH, FT3, BMP #### [facility] [address] [address] [address] Gage Mathis Note: Comment Normal [facility] [...] L IVER, LIPID, TSH, FT3, BMP #### [facility] [address] [address] [address] Gage Mathis Performed by: Comment Normal [facility] Comment on above: Result Comment: Zoya Davis, Salesperson Furniture (ASCP) Performed at: WB Performed By: #### L IVER, LIPID, TSH, FT3, BMP #### [facility] [address] [place] [address] Dr. Gage Mathis QC reviewed by: Comment Normal [facility] Comment on above: Result Comment: Clotilde Suresh, Supervisory Salesperson Furniture (ASCP) Performed at: WB Performed By: #### L IVER, LIPID, TSH, FT3, BMP #### [facility] [address] [place] [address] Dr. Gage Mathis Specimen adequacy: Comment Normal [facility] Comment on above: Result Comment: Sati sfactory for evaluation. Endocervical and/or squamous metaplastic cells (endocervical component) are present. Performed at: WB Performed By: #### L IVER, LIPID, TSH, FT3, BMP #### [facility] [address] [place] [address] Dr. Gage Mathis CBC AUTO DIFFon 12-04-2022 BASO # 0.0 103/ul Normal 0.0-0.1 [facility] Comment on above: Performed By: #### L IVER, LIPID, TSH, FT3, BMP #### [facility] [address] [place] [address] Dr. Gage Mathsi Basophils/100 WBC (Bld) 0.4 % Normal 0.2-2.0 [facility] Comment on above: Performed By: #### L IVER, LIPID, TSH, FT3, BMP #### [facility] [address] [place] [address] Dr. Gage Mathis EO # 0.1 103/ul Normal 0.0-0.7 [facility] Comment on above: Performed By: #### L IVER, LIPID, TSH, FT3, BMP #### [facility] [address] [place] [address] Dr. Gage Mathis Eosinophils/100 WBC (Bld) 1.3 % Normal 0.9-7.0 [facility] Comment on above: Performed By: #### L IVER, LIPID, TSH, FT3, BMP #### [facility] [address] [place] [address] Dr. Gage Mathis Erythrocyte distribution width (RBC) [Ratio] 12.4 % Normal 11.0-15.0 [facility] Comment on above: Performed By: #### L IVER, LIPID, TSH, FT3, BMP #### [facility] [address] [place] [address] Dr. Gage Mathis Hematocrit (Bld) [Volume fraction] 37.1 % Normal 36.0-48.0 [facility] Comment on above: Performed By: #### L IVER, LIPID, TSH, FT3, BMP #### [facility] [address] [place] [address] Dr. Gage Mathis Hemoglobin (Bld) [Mass/Vol] 12.1 g/dL Normal 12.0-16.0 [facility] Comment on above: Performed By: #### L IVER, LIPID, TSH, FT3, BMP #### [facility] [address] [place] [address] Dr. Gage Mathis IG # 0.01 10e3/ul Normal 0.00-0.03 [facility] Comment on above: Performed By: #### L IVER, LIPID, TSH, FT3, BMP #### [facility] [address] [place] [address] Dr. Gage Mathis IG % 0.2 % Normal 0.0-0.5 [facility] Comment on above: Performed By: #### L IVER, LIPID, TSH, FT3, BMP #### [facility] [address] [place] [address] Dr. Gage Mathis LYMPH # 1.6 103/ul Normal 1.2-3.8 [facility] Comment on above: Performed By: #### L IVER, LIPID, TSH, FT3, BMP #### [facility] [address] [place] [address] Dr. Gage Mathis Lymphocytes/100 WBC (Bld) 30.6 % Normal 20.5-60.0 [facility] Comment on above: Performed By: #### L IVER, LIPID, TSH, FT3, BMP #### [facility] [address] [address] [address] Gage Mathis MANUAL DIFF REQ NO Normal [facility] Comment on above: Performed By: #### L IVER, LIPID, TSH, FT3, BMP #### [facility] [address] [place] [address] Dr. Gage Mathis MCH (RBC) [Entitic mass] 31.8 pg Normal 26.7-34.0 [facility] Comment on above: Performed By: #### L IVER, LIPID, TSH, FT3, BMP #### [facility] [address] [place] [address] Dr. Gage Mathis MCHC (RBC) [Mass/Vol] 32.6 g/dL Normal 29.9-35.2 [facility] Comment on above: Performed By: #### L IVER, LIPID, TSH, FT3, BMP #### [facility] [address] [place] [address] Dr. Gage Mathis MCV (RBC) [Entitic vol] 97.4 fL Normal 81.0-99.0 [facility] Comment on above: Performed By: #### L IVER, LIPID, TSH, FT3, BMP #### [facility] [address] [place] [address] Dr. Gage Mathis MONO # 0.4 103/ul Normal 0.3-0.8 [facility] Comment on above: Performed By: #### L IVER, LIPID, TSH, FT3, BMP #### [facility] [address] [place] [address] Dr. Gage Mathis Monocytes/100 WBC (Bld) 8.4 % Normal 1.7-12.0 [facility] Comment on above: Performed By: #### L IVER, LIPID, TSH, FT3, BMP #### [facility] [address] [place] [address] Dr. Gage Mathis NEUT # 3.1 103/ul Normal 1.4-6.5 [facility] Comment on above: Performed By: #### L IVER, LIPID, TSH, FT3, BMP #### [facility] [address] [address] [address] Gage Mathis Neutrophils/100 WBC (Bld) 59.1 % Normal 43.0-75.0 [facility] Comment on above: Performed By: #### L IVER, LIPID, TSH, FT3, BMP #### [facility] [address] [place] [address] Dr. Gage Mathis Platelet mean volume (Bld) [Entitic vol] 10.1 fL Normal 9.5-13.5 [facility] Comment on above: Performed By: #### L IVER, LIPID, TSH, FT3, BMP #### [facility] [address] [place] [address] Dr. Gage Mathis PLT 205 103/ul Normal 150-450 [facility] Comment on above: Performed By: #### L IVER, LIPID, TSH, FT3, BMP #### [facility] [address] [place] [address] Dr. Gage Mathis RBC 3.81 106/ul Critically low 4.20-5.40 [facility] Comment on above: Performed By: #### L IVER, LIPID, TSH, FT3, BMP #### [facility] [address] [place] [address] Dr. Gage Mathis WBC 5.2 103/ul Normal 4.0-11.0 [facility] Comment on above: Performed By: #### L IVER, LIPID, TSH, FT3, BMP #### [facility] [address] [place] [address] Dr. Gage Mathis FREE T4on 12-04-2022 Free T4 [Mass/Vol] 0.98 ng/dL Normal 0.76-1.46 [facility] Comment on above: Performed By: #### L IVER, LIPID, TSH, FT3, BMP #### [facility] [address] [place] [address] Dr. Gage Mathis GLYCOHEMOGLOBIN A1Con 2022 ADA RECOMMENDATION SEE BELOW Normal [facility] Comment on above: Result Comment: ADA RECOMMENDED LIMIT 4.0 - 6.0 ADA THERAPEUTIC TARGET < 7.0 ACTION SUGGESTED > 7.0 Performed By: #### L IVER, LIPID, TSH, FT3, BMP #### [facility] [address] [place] [address] Dr. Gage Mathis Glucose [Mass/Vol] 100 mg/dL Normal [facility] Comment on above: Performed By: #### L IVER, LIPID, TSH, FT3, BMP #### [facility] [address] [place] [address] Dr. Gage Mathis HbA1c (Bld) [Mass fraction] 5.1 % Normal 4.5-6.2 [facility] Comment on above: Performed By: #### L IVER, LIPID, TSH, FT3, BMP #### [facility] [address] [place] [address] Dr. Gage Mathis PREG QUANT HCGon 12-04-2022 HCG QUANT <1 Normal [facility] Comment on above: Performed By: #### L IVER, LIPID, TSH, FT3, BMP #### [facility] [address] [place] [address] Dr. Gage Mathis HCG RANGE SEE BELOW Normal [facility] Comment on above: Result Comment: 5-50 0.2-1 WEEK 50-500 1-2 WEEKS 100-5,000 2-3 WEEKS 500-10,000 3-4 WEEKS 1,000-50,000 4-5 WEEKS 10,000-100,000 5-6 WEEKS 15,000-200,000 6-8 WEEKS 10,000-100,000 2-3 MONTHS Performed By: #### L IVER, LIPID, TSH, FT3, BMP #### [facility] [address] [place] [address] Dr. Gage Mathis PROTIMEon 12-04-2022 INR Coag (PPP) [Relative time] 0.94 {INR} Normal [facility] Comment on above: Performed By: #### L IVER, LIPID, TSH, FT3, BMP #### [facility] [address] [place] [address] Dr. Gage Mathis INR GUIDELINES SEE BELOW Normal [facility] Comment on above: Result Comment: KALEB RED INR: 2.0 - 3.0 CONDITIONS NOT LISTED BELOW 2.5 - 3.5 FOR PROSTHETIC HEART VALVE REPLACEMENT 2.5 - 3.5 RECURRENT THROMBOSIS Performed By: #### L IVER, LIPID, TSH, FT3, BMP #### [facility] [address] [place] [address] Dr. Gage Mathis PT Coag (PPP) [Time] 10.0 s Normal 9.0-11.6 [facility] Comment on above: Performed By: #### L IVER, LIPID, TSH, FT3, BMP #### [facility] [address] [place] [address] Dr. Gage Mathis PTTon 12-04-2022 aPTT Coag (Bld) [Time] 28.1 s Normal 22.3-36.2 [facility] Comment on above: Performed By: #### L IVER, LIPID, TSH, FT3, BMP #### [facility] [address] [place] [address] Dr. Gage Mathis TSHon 12-04-2022 TSH 4.110 uIU/mL Critically high 0.358-3.74 0 [facility] Comment on above: Performed By: #### L IVER, LIPID, TSH, FT3, BMP #### [facility] [address] [place] [address] Dr. Gage Mathis CBC AUTO DIFFon 10-09-2022 BASO # 0.0 103/ul Normal 0.0-0.1 [facility] Comment on above: Performed By: #### C BC #### [facility] [address] [place] [address] Dr. Gage Mathis Basophils/100 WBC (Bld) 0.1 % Critically low 0.2-2.0 [facility] Comment on above: Performed By: #### C BC #### [facility] [address] [place] [address] Dr. Gage Mathis EO # 0.0 103/ul Normal 0.0-0.7 [facility] Comment on above: Performed By: #### C BC #### [facility] [address] [place] [address] Dr. Gage Mathis Eosinophils/100 WBC (Bld) 0.0 % Critically low 0.9-7.0 [facility] Comment on above: Performed By: #### C BC #### [facility] [address] [place] [address] Dr. Gage Mathis Erythrocyte distribution width (RBC) [Ratio] 13.0 % Normal 11.0-15.0 [facility] Comment on above: Performed By: #### C BC #### [facility] [address] [place] [address] Dr. Gage Mathis Hematocrit (Bld) [Volume fraction] 38.6 % Normal 36.0-48.0 [facility] Comment on above: Performed By: #### C BC #### [facility] [address] [place] [address] Dr. Gage Mathis Hemoglobin (Bld) [Mass/Vol] 12.4 g/dL Normal 12.0-16.0 [facility] Comment on above: Performed By: #### C BC #### [facility] [address] [place] [address] Dr. Gage Mathis IG # 0.05 10e3/ul Critically high 0.00-0.03 [facility] Comment on above: Performed By: #### C BC #### [facility] [address] [place] [address] Dr. Gage Mathis IG % 0.5 % Normal 0.0-0.5 [facility] Comment on above: Performed By: #### C BC #### [facility] [address] [place] [address] Dr. Gage Mathis LYMPH # 2.8 103/ul Normal 1.2-3.8 [facility] Comment on above: Performed By: #### C BC #### [facility] [address] [place] [address] Dr. Gage Mathis Lymphocytes/100 WBC (Bld) 26.2 % Normal 20.5-60.0 [facility] Comment on above: Performed By: #### C BC #### [facility] [address] [place] [address] Dr. Gage Mathis MANUAL DIFF REQ NO Normal [facility] Comment on above: Performed By: #### C BC #### [facility] [address] [place] [address] Dr. Gage Mathis MCH (RBC) [Entitic mass] 32.0 pg Normal 26.7-34.0 [facility] Comment on above: Performed By: #### C BC #### [facility] [address] [place] [address] Dr. Gage Mathis MCHC (RBC) [Mass/Vol] 32.1 g/dL Normal 29.9-35.2 [facility] Comment on above: Performed By: #### C BC #### [facility] [address] [place] [address] Dr. Gage Mathis MCV (RBC) [Entitic vol] 99.5 fL Critically high 81.0-99.0 [facility] Comment on above: Performed By: #### C BC #### [facility] [address] [place] [address] Dr. Gage Mathis MONO # 0.6 103/ul Normal 0.3-0.8 [facility] Comment on above: Performed By: #### C BC #### [facility] [address] [place] [address] Dr. Gage Mathis Monocytes/100 WBC (Bld) 5.5 % Normal 1.7-12.0 [facility] Comment on above: Performed By: #### C BC #### [facility] [address] [place] [address] Dr. Gage Mathis NEUT # 7.1 103/ul Critically high 1.4-6.5 [facility] Comment on above: Performed By: #### C BC #### [facility] [address] [place] [address] Dr. Gage Mathis Neutrophils/100 WBC (Bld) 67.7 % Normal 43.0-75.0 [facility] Comment on above: Performed By: #### C BC #### [facility] [address] [place] [address] Dr. Gage Mathis Platelet mean volume (Bld) [Entitic vol] 10.0 fL Normal 9.5-13.5 [facility] Comment on above: Performed By: #### C BC #### [facility] [address] [place] [address] Dr. Gage Mathis PLT 271 103/ul Normal 150-450 [facility] Comment on above: Performed By: #### C BC #### [facility] [address] [place] [address] Dr. Gage Mathis RBC 3.88 106/ul Critically low 4.20-5.40 [facility] Comment on above: Performed By: #### C BC #### [facility] [address] [place] [address] Dr. Gage Mathis WBC 10.5 103/ul Normal 4.0-11.0 [facility] Comment on above: Performed By: #### C BC #### [facility] [address] [place] [address] Dr. Gage Mathis FREE T3on 10-09-2022 FREE T3 1.64 pg/mlL Critically low 2.18-3.98 [facility] Comment on above: Performed By: #### L IVER, LIPID, TSH, FT3, BMP #### [facility] [address] [place] [address] Dr. Gage Mathis FREE T4on 10-09-2022 Free T4 [Mass/Vol] 1.01 ng/dL Normal 0.76-1.46 [facility] Comment on above: Performed By: #### F T4 #### [facility] [address] [place] [address] Dr. Gage Mathis GLYCOHEMOGLOBIN A1Con 2022 ADA RECOMMENDATION SEE BELOW Normal [facility] Comment on above: Result Comment: ADA RECOMMENDED LIMIT 4.0 - 6.0 ADA THERAPEUTIC TARGET < 7.0 ACTION SUGGESTED > 7.0 Performed By: #### L IVER, LIPID, TSH, FT3, BMP #### [facility] [address] [place] [address] Dr. Gage Mathis Glucose [Mass/Vol] 100 mg/dL Normal [facility] Comment on above: Performed By: #### L IVER, LIPID, TSH, FT3, BMP #### [facility] [address] [address] [address] Gage Mathis HbA1c (Bld) [Mass fraction] 5.1 % Normal 4.5-6.2 [facility] Comment on above: Performed By: #### L IVER, LIPID, TSH, FT3, BMP #### [facility] [address] [address] [address] Gage Mathis LIPID PROFILEon 10-09-2022 CHOL-HDL RATIO NORM SEE BELOW Normal [facility] Comment on above: Result Comment: 3.3 - 4.4 LOW RISK 4.4 - 7.1 AVERAGE RISK 7.1 - 11.0 MODERATE RISK >11.0 HIGH RISK Performed By: #### L IVER, LIPID, TSH, FT3, BMP #### [facility] [address] [place] [address] Dr. Gage Mathis Cholesterol [Mass/Vol] 162 mg/dL Normal <=200 [facility] Comment on above: Performed By: #### L IVER, LIPID, TSH, FT3, BMP #### [facility] [address] [place] [address] Dr. Gage Mathis Cholesterol in HDL [Mass/Vol] 78 mg/dL Critically high 40-60 [facility] Comment on above: Performed By: #### L IVER, LIPID, TSH, FT3, BMP #### [facility] [address] [place] [address] Dr. Gage Mathis Cholesterol in LDL [Mass/Vol] 72.8 mg/dL Normal [facility] Comment on above: Performed By: #### L IVER, LIPID, TSH, FT3, BMP #### [facility] [address] [place] [address] Dr. Gage Mathis Cholesterol.total/Ch olesterol in HDL [Mass ratio] 2.1 {ratio} Normal [facility] Comment on above: Performed By: #### L IVER, LIPID, TSH, FT3, BMP #### [facility] [address] [address] [address] Gage Mathis HDL NORMAL > or = 60 mg/dl - LO W CARDIOVASCULAR RISK <40 mg/dl - HIGH CARDIOVASCULAR RISK Normal [facility] Comment on above: Performed By: #### L IVER, LIPID, TSH, FT3, BMP #### [facility] [address] [address] [address] Gage Mathis LDL CALC NORMAL SEE BELOW Normal [facility] Comment on above: Result Comment: <100 mg/dl OPTIMAL 100 - 129 mg/dl NEAR OR ABOVE OPTIMAL 130 - 159 mg/dl BORDERLINE HIGH 160 - 189 mg/dl HIGH >190 mg/dl VERY HIGH Performed By: #### L IVER, LIPID, TSH, FT3, BMP #### [facility] [address] [address] [address] Gage Mathis Triglyceride [Mass/Vol] 56 mg/dL Normal <=150 [facility] Comment on above: Performed By: #### L IVER, LIPID, TSH, FT3, BMP #### [facility] [address] [address] [address] Gage Mathis VLDL CALC 11.2 mg/dL Normal [facility] Comment on above: Performed By: #### L IVER, LIPID, TSH, FT3, BMP #### [facility] [address] [place] [address] Dr. Gage Mathis LIVER PROFILEon 10-09-2022 Albumin [Mass/Vol] 3.2 g/dL Critically low 3.4-5.0 [facility] Comment on above: Performed By: #### L IVER, LIPID, TSH, FT3, BMP #### [facility] [address] [address] [address] Gage Mathis Albumin/Globulin [Mass ratio] 0.9 {ratio} Normal [facility] Comment on above: Performed By: #### L IVER, LIPID, TSH, FT3, BMP #### [facility] [address] [address] [address] Gage Mathis ALP [Catalytic activity/Vol] 89 U/L Normal 46-116 [facility] Comment on above: Performed By: #### L IVER, LIPID, TSH, FT3, BMP #### [facility] [address] [place] [address] Dr. Gage Mathis ALT [Catalytic activity/Vol] 49 U/L Normal 14-59 [facility] Comment on above: Performed By: #### L IVER, LIPID, TSH, FT3, BMP #### [facility] [address] [place] [address] Dr. Gage Mathis AST [Catalytic activity/Vol] 15 U/L Normal 15-37 [facility] Comment on above: Performed By: #### L IVER, LIPID, TSH, FT3, BMP #### [facility] [address] [place] [address] Dr. Gage Mathis BILI, CONJUGATED 0.1 mg/dL Normal 0.0-0.2 [facility] Comment on above: Performed By: #### L IVER, LIPID, TSH, FT3, BMP #### [facility] [address] [place] [address] Dr. Gage Mathis Bilirubin [Mass/Vol] 0.3 mg/dL Normal 0.2-1.0 [facility] Comment on above: Performed By: #### L IVER, LIPID, TSH, FT3, BMP #### [facility] [address] [place] [address] Dr. Gage Mathis Globulin (S) [Mass/Vol] 3.7 g/dL Normal [facility] Comment on above: Performed By: #### L IVER, LIPID, TSH, FT3, BMP #### [facility] [address] [place] [address] Dr. Gage Mathis Protein [Mass/Vol] 6.9 g/dL Normal 6.4-8.2 [facility] Comment on above: Performed By: #### L IVER, LIPID, TSH, FT3, BMP #### [facility] [address] [place] [address] Dr. Gage Mathis PROF CHEM 8 (BAS METB)on Anion gap [Moles/Vol] 12.1 mmol/L Normal [facility] Comment on above: Performed By: #### L IVER, LIPID, TSH, FT3, BMP #### [facility] [address] [address] [address] Gage Mathis Calcium [Mass/Vol] 9.0 mg/dL Normal 8.5-10.1 [facility] Comment on above: Performed By: #### L IVER, LIPID, TSH, FT3, BMP #### [facility] [address] [address] [address] Gage Mathis Chloride [Moles/Vol] 104 mmol/L Normal 98-107 [facility] Comment on above: Performed By: #### L IVER, LIPID, TSH, FT3, BMP #### [facility] [address] [place] [address] Dr. Gage Mathis CO2 [Moles/Vol] 29.6 mmol/L Normal 21.0-32.0 [facility] Comment on above: Performed By: #### L IVER, LIPID, TSH, FT3, BMP #### [facility] [address] [address] [address] Gage Mathis Creatinine [Mass/Vol] 0.82 mg/dL Normal 0.55-1.02 [facility] Comment on above: Performed By: #### L IVER, LIPID, TSH, FT3, BMP #### [facility] [address] [address] [address] Gage Mathis EGFR-AF BANGLADESHI >60 Normal >=60 [facility] Comment on above: Performed By: #### L IVER, LIPID, TSH, FT3, BMP #### [facility] [address] [address] [address] Gage Mathis EGFR-NON AF BANGLADESHI >60 Normal >=60 [facility] Comment on above: Performed By: #### L IVER, LIPID, TSH, FT3, BMP #### [facility] [address] [address] [address] Gage Mathis Glucose [Mass/Vol] 92 mg/dL Normal 74-106 [facility] Comment on above: Performed By: #### L IVER, LIPID, TSH, FT3, BMP #### [facility] [address] [address] [address] Gage Mathis Potassium [Moles/Vol] 3.7 mmol/L Normal 3.5-5.1 [facility] Comment on above: Performed By: #### L IVER, LIPID, TSH, FT3, BMP #### [facility] [address] [place] [address] Dr. Gage Mathis Sodium [Moles/Vol] 142 mmol/L Normal 136-145 [facility] Comment on above: Performed By: #### L IVER, LIPID, TSH, FT3, BMP #### [facility] [address] [place] [address] Dr. Gage Mathis Urea nitrogen [Mass/Vol] 14.0 mg/dL Normal 7.0-18.0 [facility] Comment on above: Performed By: #### L IVER, LIPID, TSH, FT3, BMP #### [facility] [address] [place] [address] Dr. Gage Mathis Urea nitrogen/Creatinine [Mass ratio] 17.1 mg/mg Normal [facility] Comment on above: Performed By: #### L IVER, LIPID, TSH, FT3, BMP #### [facility] [address] [place] [address] Dr. Gage Mathis TSHon 10-09-2022 TSH 1.637 uIU/mL Normal 0.358-3.74 0 [facility] Comment on above: Performed By: #### L IVER, LIPID, TSH, FT3, BMP #### [facility] [address] [place] [address] Dr. Gage Mathis VITAMIN D 25 OHon 10-09-2022 VIT D 25-OH 41.1 ng/mL Normal [facility] Comment on above: Performed By: #### V ITAD #### [facility] [address] [place] [address] Dr. Gage Mathis VIT D RANGES SEE BELOW Normal [facility] Comment on above: Result Comment: <20 ng/mL Vit D deficient 20 - <30 ng/mL Vit D insufficient 30 - 100 ng/mL Vit D sufficient >100 ng/mL Potential Toxicity Performed By: #### V ITAD #### [facility] [address] [place], [place] [id number] Dr. Gage Mathis COVID/FLU RT-PCRon 3 SARS-CoV-2 (COVID-19) RNA EB+probe Ql (Unsp spec) Negative [facility] Other COVID/FLU RT-PCR Negative [facility] Other COVID Quick Testingon 2021 Result Negative [facility] Other US PELVIS AND TRANSVAGon US PELVIS [...] BING NOE Date: 2022-05-02 17:47 Normal [facility] CHLAMYDIA/GONOCOCCUS EB (SW AB/URINE/PAPon 04-11-2022 Chlamydia trachomatis, EB Negative Normal Negative [facility] Comment on above: Performed By: #### L IVER, LIPID, TSH, FT3, BMP #### [facility] [address] [place], [place] [address] Dr. Gage Mathis Neisseria gonorrhoeae, EB Negative Normal Negative [facility] Comment on above: Performed By: #### L IVER, LIPID, TSH, FT3, BMP #### [facility] [address] [address] [address] Gage Mathis VAGINITIS/VAGINOSIS DNA PROB Sincere 04-10-2022 Sol species Negative Normal Negative [facility] Comment on above: Performed By: #### V AGINT #### [facility] [address] [address] [address] Gage Mathis Gardnerella vaginalis Positive Abnormal Negative [facility] Comment on above: Performed By: #### V AGINT #### [facility] [address] [address] [address] Gage Mathis Trichomonas vaginalis Negative Normal Negative [facility] Comment on above: Performed By: #### V AGINT #### [facility] [address] [place] [address] Dr. Gage Mathis Basic Metabolic Panlon 08-06 Anion gap 3 molar conc 14 mmol/L Normal 9-18 [facility] Comment on above: Performed By: #### B MP, HFP ####[facility] [phone] Calcium mass conc 9.2 mg/dL Normal 8.5-10.2 [facility] Comment on above: Performed By: #### B MP, HFP ####[facility] [phone] Chloride molar conc 103 mmol/L Normal 97-105 [facility] Comment on above: Performed By: #### B MP, HFP ####[facility] [phone] CO2 molar conc 24 mmol/L Normal 22-30 [facility] Comment on above: Performed By: #### B MP, HFP ####[facility] [phone] Creatinine mass conc 0.83 mg/dL Normal 0.58-0.96 [facility] Comment on above: Performed By: #### B MP, HFP ####[facility] [place], [place] [phone] eGFR- Amer. >60 Normal [facility] Comment on above: Performed By: #### B MP, HFP ####[facility] [place], [place] [phone] GFR/1.73 sq M predicted among non-blacks MDRD vol rate/area (S/P/Bld) mL/min/{1.73_m2} Normal [facility] Comment on above: Result Comment: [...] reflect actual GFR. Performed By: #### B MP, HFP ####[facility] [place], [place] [phone] Glucose mass conc 82 mg/dL Normal 74-99 [facility] Comment on above: Result Comment: The [place] [employer] (ADA) provides guidance for cutoff [...] Standards of Medical Care in Diabetes 2016, [place] [employer]. Diabetes Care. 2016.39(Suppl 1). Performed By: #### B MP, HFP ####[facility] [address] [place] [place], [place] [phone] Potassium molar conc 4.3 mmol/L Normal 3.7-5.1 [facility] Comment on above: Performed By: #### B MP, HFP ####[facility], [place] [phone] Sodium molar conc 141 mmol/L Normal 136-144 [facility] Comment on above: Performed By: #### B MP, HFP ####[facility] [address], [place] [phone] Urea nitrogen mass conc 14 mg/dL Normal 7-21 [facility] Comment on above: Performed By: #### B MP, HFP ####[facility] [place], [place] [phone] CNOVSPon 08-06-2018 CNOVSP Visit (SP) Office ([facility]) PRINCE ALLENAZUL Rodriguez ([id number]) 1990 [facility] Time Provider Fxczyjqbbm53/29/18 3:30 PM SHANT ROMERO During your visit [...] al. Chest 2012, 141:7S-47SNishimura RA, et al. [facility] 2017, 70: 252-289 APTT 23.0 - 32.4 [...] oflaboratory APTT reagent in use throughout the [facility]. Platelet Neut Negative Negative Negative DRVVT Screen 32.7 - 46.7 sec 35.1 36.1 42.3 DRVVT Confirm Ratio <1.21 1.10 <1.21 class= rz_g [id number] >0.91 <1.21 class= rz_6 sqx1846 >1.06 DRVVT 1:1 Mix 32.7 - 46.7 sec 33.9 36.2 41.3 Hex Phase Screen 45.0 - 59.9 sec 34.7 54.5 Hex Phase Confirm 41.8 - 54.9 sec 32.6 47.7 Hex Phase Delta <9.1 delta sec 2.1 <9.1 delta sec class= rz_6 fuo8144 >6.7 APTT Screen 24.4 - 33.4 sec 24.3 33.0CM Immediate PTT 1:1 Mix <33.2 sec 26.3 <33.2 sec class= rz_6 [id number] >30.6 Incubated PTT 1:1 Mix <35.0 sec 28.3 <35.0 sec class= rz_6 gku2619 >32.4 Thrombin Time <18.6 sec 17.7 <18.6 sec class= rz_6 njx4842 >16.1 Interpretation(Lupus Anticoagulant) (NOTE) (NOTE)CMComment: Performing Pathologist: [...] GPL <9 <9CMComment: <10 GPL ? ? [id number] GPL ? Equivocal>40 GPL ? ? PositiveThe following results were obtained with the [employer] vida é feita de [place] LAVON IgG IIIELISA. Cardiolipin IgG values obtained with the different manufacturers' assay?methods may not be used interchangeably. The magnitude of the reported IgGlevels cannot be correlated to an endpoint titer. Cardiolipin Ab, IgM 0 - 11 MPL <9 9CMComment: <12 MPL ? ? Dxuavbsh64-35 MPL ? Equivocal>40 MPL ? ? PositiveThe following results were obtained with the [employer] QUANTA Lite LAVON IgM IIIELISA. Cardiolipin IgM values obtained with different manufacturers' assaymethods may not be used interchangeably. The magnitude of the reported IgMlevels cannot be correlated to an endpoint titer. Cardiolipin Ab, IgA 0 - 11 APL <9 <9CMComment: <12 APL ? ? Sfxztwbh32-37 APL ? Equivocal>40 APL ? ? PositiveThe following results were obtained with an [employer] QUANTA Lite LAVON IgA IIIELISA. Cardiolipin IgA values obtained with different manufacturers' assaymethods may not be used interchangeably. The magnitude of the reported IgAlevels cannot be correlated to an endpoint titer. Beta 2 Glycoprotein, IgG <20 SGU <9 <20 SGU class= rz_6 eal7958 ><9CMComment: < 20 ?SGU ? ?Slwuezfb12-00 SGU ? ?Low Positive> 80 ?SGU ? ?High PositiveThese results were obtained with the WintegraA Lite B2 GPI IgG DAYNA. B2GPI IgG values obtained with different manufacturers' assay methods may not be?used interchangeably. The magnitude of the reported IgG levels cannot becorrelated to an endpoint titer. Beta 2 Glycoprotein, IgM <20 SMU <9 <20 SMU class= rz_6 xyp0069 ><9CMComment: < 20 ?SMU ? ?Stdixyod42-28 SMU ? ?Low Positive> 80 ?SMU ? ?High PositiveThese results were obtained with the [employer] QUANTA Lite B2 GPI IgM DAYNA. B2GPI IgM values obtained with different manufacturers' assay methods may not be?used interchangeably. The magnitude of the reported IgM levels cannot becorrelated to an endpoint titer.FACTOR V LEIDEN/PCROrder: [id number]: Final result ??Visible to patient: No (Not Released) Next appt: NoneDx: Positive dilute Idalia's viper venom...Component 3mo agoFactor V Leiden PCR Report (NOTE)Comment: Performing Pathologist: Alvina Sotomayor M.D., Ph.D.Factor V Leiden Mutation Result: NORMALHOMOCYSTEINEOrder: [id number]: Final result ??Visible to patient: No (Not Released) Next appt: NoneDx: Positive dilute Idalia's viper venom... Ref Range AND Units 3mo agoHomocysteine, Serum <15.1 umol/L 9.5Resulting Agency CCMSpecimen Collected: 04/20/18 ?2:22 PM Last Resulted: 04/21/18 ?1:31 PM LabFlowsheet Order Details View Encounter Lab and Collection Details RoutingResult HistoryOther Results from 04/20/2018FACTOR V LEIDEN/PCROrder: [id number]: Final result ??Visible to patient: No (Not [...] and Collection Details RoutingResult HistoryPROTHROMBIN GENE PCROrder: [id number]: Final result ??Visible to patient: No (Not Released) Next appt: NoneDx: Positive dilute Idalia's viper venom...Component 3mo agoPT Gene Report (NOTE)Comment: Performing Pathologist: Alvina Sotomayor M.D., Ph.D.PT Gene Mutation Result: NORMAL ?PT Gene Mutation Interpretation: The DNA sample is negative for [id number] point mutation in the 3' untranslated region [...] and Collection Details RoutingResult HistoryPROTEIN S CLOTTABLEOrder: [id number]: Final result ??Visible to patient: No (Not Released) Next appt: NoneDx: Positive dilute Idalia's viper venom... Ref Range AND Units 3mo agoProtein S Clottable 59 - 131 % 108Resulting Agency CCMSpecimen Collected: 04/20/18 ?2:22 PM Last Resulted: 04/21/18 ?9:13 AM LabFlowsheet Order Details View Encounter Lab and Collection Details RoutingResult HistoryPROTEIN C FUNCTOrder: [id number]: Final result ??Visible to patient: No (Not Released) Next appt: NoneDx: Positive dilute Idalia's viper venom... Ref Range AND Units 3mo agoPro C Fun 76 - 147 % 104Resulting Agency CCMSpecimen Collected: 04/20/18 ?2:22 PM Last Resulted: 04/21/18 ?9:13 AM LabFlowsheet Order Details View Encounter Lab and Collection Details RoutingResult HistoryANTITHROMBIN IIIOrder: [id number]: Final result ??Visible to patient: No (Not Released) Next appt: NoneDx: Positive dilute Idalia's viper venom... Ref Range AND Units 3mo agoAntithrombin Assay 84 - 138 % 93Resulting Agency CCMSpecimen Collected: 04/20/18 ?2:22 PM Last Resulted: 04/21/18 ?9:13 AM LabFlowsheet Order Details View Encounter Lab and Collection Details RoutingResult HistoryLUPUS ANTICOAG PLOrder: [id number]: Final result ??Visible to patient: No (Not [...] of 3).Alfred GH, et al. Chest 2012, 141:7S-47SNishjono RA, et al. [facility] 2017, 70: 252-289APTT 23.0 - 32.4 sec [...] oflaboratory APTT reagent in use throughout the [facility].Platelet Neut Negative NegativeDRVVT Screen 32.7 - [...] 9 GPL <9Comment: <10 GPL ? ? Zuureunj97-28 GPL ? Equivocal>40 GPL ? ? PositiveThe following results were obtained with the [employer] QUANTA Lite LAVON IgG IIIELISA. Cardiolipin IgG values obtained with the different manufacturers' assay?methods may not be used interchangeably. The magnitude of the reported IgGlevels cannot be correlated to an endpoint titer.Cardiolipin Ab, IgM 0 - 11 MPL 9Comment: <12 MPL ? ? Xilmcmhb09-81 MPL ? Equivocal>40 MPL ? ? PositiveThe following results were obtained with the [employer]ova QUANTA Lite LAVON IgM IIIELISA. Cardiolipin IgM values obtained with different manufacturers' assaymethods may not be used interchangeably. The magnitude of the reported IgMlevels cannot be correlated to an endpoint titer.Cardiolipin Ab, IgA 0 - 11 APL <9Comment: <12 APL ? ? Kjiwfxuk76-18 APL ? Equivocal>40 APL ? ? PositiveThe following results were obtained with an [employer]ova QUANTA Lite LAVON IgA IIIELISA. Cardiolipin IgA values obtained with different manufacturers' assaymethods may not be used interchangeably. The magnitude of the reported IgAlevels cannot be correlated to an endpoint titer.Beta 2 Glycoprotein, IgG <20 SGU <9Comment: < 20 ?SGU ? ?Hafsasos29-71 SGU ? ?Low Positive> 80 ?SGU ? ?High PositiveThese results were obtained with the [employer] QUANTA Lite B2 GPI IgG DAYNA. B2GPI IgG values obtained with different manufacturers' assay methods may not be?used interchangeably. The magnitude of the reported IgG levels cannot becorrelated to an endpoint titer.Beta 2 Glycoprotein, IgM <20 SMU <9Comment: < 20 ?SMU ? ?Ezkspdxw40-44 SMU ? ?Low Positive> 80 ?SMU ? ?High PositiveThese results were obtained with the Inova QUANTA Lite B2 GPI IgM DAYNA. B2GPI IgM values obtained with different manufacturers' assay methods may not be?used interchangeably. The magnitude of the reported IgM levels cannot becorrelated to an endpoint titer.Resulting Agency CCMSpecimen Collected: 04/20/18 ?2:22 PM Last Resulted: 04/21/18 ?6:40 PM LabFlowsheet Order Details View Encounter Lab and Collection Details RoutingResult HistoryANA PANEL BLOOD SCRNOrder: [id number]: Final result ??Visible to patient: No (Not [...] thenormal for population. No indication for intervention needed.Fernie Mccray Provider: LATASHA HU [[id number]]Allergies As of Date: 08/06/2018 Noted Allergy ReactionIODINE [...] by SHANT ROMERO MD on 08/06/18 Normal [facility] Hepatic Functn Panelon 08-06 Albumin mass conc 4.2 g/dL Normal 3.9-4.9 [facility] Comment on above: Performed By: #### B BRYANNA [facility] ####[facility] [address] [place], [place] [phone] ALP enzyme act/vol 75 U/L Normal 34-123 [facility] Comment on above: Performed By: #### B BRYANNA, [facility] ####[facility] [address] [place], [place] [phone] ALT enzyme act/vol 21 U/L Normal 7-38 [facility] Comment on above: Performed By: #### B MP, HFP ####[address] [place], [place] [phone] AST enzyme act/vol 21 U/L Normal 13-35 [facility] Comment on above: Performed By: #### B MP, HFP ####[address] [place], [place] [phone] Bilirubin mass conc 0.3 mg/dL Normal 0.2-1.3 [facility] Comment on above: Performed By: #### B MP, HFP ####[address] [phone] Bilirubin,Conjugated <0.2 Normal <0.2 [facility] Comment on above: Performed By: #### B MP, HFP ####[address] [phone] Protein mass conc 7.3 g/dL Normal 6.3-8.0 [facility] Comment on above: Performed By: #### B MP, HFP ####[address] [place] [phone] PROGRESSon 08-06-2018 Protein mass conc HNO ID: [id number] thor: Shant Quinonez: (none)Author Type: PhysicianType: Progress [...] of 3).Alfred GH, et al. Chest 2012, 141:7S-47SNishjono RA, et al. [facility] 2017, 70: 252-289 APTT 23.0 - 32.4 [...] lotoflaboratory APTT reagent in use throughout the [employer]. Platelet Neut Negative Negative Negative DRVVT Screen 32.7 - 46.7 sec 35.1 36.1 42.3 DRVVT Confirm Ratio <1.21 1.10 <1.21 class= rz_g emi6738 >0.91 <1.21 class= rz_6 dip2391 >1.06 DRVVT 1:1 Mix 32.7 - 46.7 sec 33.9 36.2 41.3 Hex Phase Screen 45.0 - 59.9 sec 34.7 54.5 Hex Phase Confirm 41.8 - 54.9 sec 32.6 47.7 Hex Phase Delta <9.1 delta sec 2.1 <9.1 delta sec class= rz_6hlt1024 >6.7 APTT Screen 24.4 - 33.4 sec 24.3 33.0CM Immediate PTT 1:1 Mix <33.2 sec 26.3 <33.2 sec class= rz_6 mql1574 >30.6 Incubated PTT 1:1 Mix <35.0 sec 28.3 <35.0 sec class= rz_6 zte6558 >32.4 Thrombin Time <18.6 sec 17.7 <18.6 sec class= rz_6 uzu8183 >16.1 Interpretation(Lupus Anticoagulant) (NOTE) (NOTE)CMComment: Performing Pathologist: [...] GPL <9 <9CMComment: <10 GPL ? ? Vhlqeyfr97-02 GPL ? Equivocal>40 GPL ? ? PositiveThe following results were obtained with the [employer]ova QUANTA Lite LAVON IgG IIIELISA. Cardiolipin IgG values obtained with the different manufacturers'assay?method s may not be used interchangeably. The magnitude of the reportedIgGlevels cannot be correlated to an endpoint titer. Cardiolipin Ab, IgM 0 - 11 MPL <9 9CMComment: <12 MPL ? ? Cjvvuiof71-47 MPL ? Equivocal>40 MPL ? ? PositiveThe following results were obtained with the [employer]ova QUANTA Lite LAVON IgM IIIELISA. Cardiolipin IgM values obtained with different manufacturers' assaymethods may not be used interchangeably. The magnitude of the reported IgMlevels cannot be correlated to an endpoint titer. Cardiolipin Ab, IgA 0 - 11 APL <9 <9CMComment: <12 APL ? ? Rtmzjzth50-76 APL ? Equivocal>40 APL ? ? PositiveThe following results were obtained with an Inova QUANTA Lite LAVON IgA IIIELISA. Cardiolipin IgA values obtained with different manufacturers' assaymethods may not be used interchangeably. The magnitude of the reported IgAlevels cannot be correlated to an endpoint titer. Beta 2 Glycoprotein, IgG <20 SGU <9 <20 SGU class= rz_6 lum2221 ><9CMComment: < 20 ?SGU ? ?Fillscph87-20 SGU ? ?Low Positive> 80 ?SGU ? ?High PositiveThese results were obtained with the [employer] QUANTA Lite B2 GPI IgG DAYNA.B2GPI IgG values obtained with different manufacturers' assay methods maynot be?used interchangeably. The magnitude of the reported IgG levels cannot becorrelated to an endpoint titer. Beta 2 Glycoprotein, IgM <20 SMU <9 <20 SMU class= rz_6 agf0969 ><9CMComment: < 20 ?SMU ? ?Tqwnnzeq53-10 SMU ? ?Low Positive> 80 ?SMU ? ?High PositiveThese results were obtained with the [employer] QUANTA Lite B2 GPI IgM DAYNA.B2GPI IgM values obtained with different manufacturers' assay methods maynot be?used interchangeably. The magnitude of the reported IgM levels cannot becorrelated to an endpoint titer.FACTOR V LEIDEN/PCROrder: [id number]: Final result ??Visible to patient: No (Not Released) Next appt:None Dx: Positive dilute Idalia's viper venom...Component 3mo agoFactor V Leiden PCR Report (NOTE)Comment: Performing Pathologist: Alvina Sotomayor M.D., Ph.D.Factor V Leiden Mutation Result: NORMALHOMOCYSTEINEOrder: [id number]: Final result ??Visible to patient: No (Not Released) Next appt:None Dx: Positive dilute Idalia's viper venom... Ref Range AND Units 3mo agoHomocysteine, Serum <15.1 umol/L 9.5Resulting Agency CCMSpecimen Collected: 04/20/18 ?2:22 PM Last Resulted: 04/21/18 ?1:31 PM LabFlowsheet Order Details View Encounter Lab and Collection Details RoutingResult HistoryOther Results from 04/20/2018FACTOR V LEIDEN/PCROrder: [id number]: Final result ??Visible to patient: No (Not [...] and Collection Details RoutingResult HistoryPROTHROMBIN GENE PCROrder: [id number]: Final result ??Visible to patient: No (Not Released) Next appt:None Dx: Positive dilute Idalia's viper venom...Component 3mo agoPT Gene Report (NOTE)Comment: Performing Pathologist: Alvina Sotomayor M.D., Ph.D.PT Gene Mutation Result: NORMAL ?PT Gene Mutation Interpretation: The DNA sample is negative for [id number] point mutation in the 3' untranslated region [...] and Collection Details RoutingResult HistoryPROTEIN S CLOTTABLEOrder: [id number]: Final result ??Visible to patient: No (Not Released) Next appt:None Dx: Positive dilute Idalia's viper venom... Ref Range AND Units 3mo agoProtein S Clottable 59 - 131 % 108Resulting Agency CCMSpecimen Collected: 04/20/18 ?2:22 PM Last Resulted: 04/21/18 ?9:13 AM LabFlowsheet Order Details View Encounter Lab and Collection Details RoutingResult HistoryPROTEIN C FUNCTOrder: [id number]: Final result ??Visible to patient: No (Not Released) Next appt:None Dx: Positive dilute Idalia's viper venom... Ref Range AND Units 3mo agoPro C Fun 76 - 147 % 104Resulting Agency CCMSpecimen Collected: 04/20/18 ?2:22 PM Last Resulted: 04/21/18 ?9:13 AM LabFlowsheet Order Details View Encounter Lab and Collection Details RoutingResult HistoryANTITHROMBIN IIIOrder: [id number]: Final result ??Visible to patient: No (Not Released) Next appt:None Dx: Positive dilute Idalia's viper venom... Ref Range AND Units 3mo agoAntithrombin Assay 84 - 138 % 93Resulting Agency CCMSpecimen Collected: 04/20/18 ?2:22 PM Last Resulted: 04/21/18 ?9:13 AM LabFlowsheet Order Details View Encounter Lab and Collection Details RoutingResult HistoryLUPUS ANTICOAG PLOrder: [id number]: Final result ??Visible to patient: No (Not [...] al. Chest 2012, 141:7S-47SNishimura RA, et al. [facility] 2017, 70: 252-289APTT 23.0 - 32.4 sec [...] lotoflaboratory APTT reagent in use throughout the [employer].Platelet Neut Negative NegativeDRVVT Screen 32.7 - 46.7 [...] 9 GPL <9Comment: <10 GPL ? ? [id number] GPL ? Equivocal>40 GPL ? ? PositiveThe following results were obtained with the [employer] QUANTA Lite LAVON IgG IIIELISA. Cardiolipin IgG values obtained with the different manufacturers'assay?method s may not be used interchangeably. The magnitude of the reportedIgGlevels cannot be correlated to an endpoint titer.Cardiolipin Ab, IgM 0 - 11 MPL 9Comment: <12 MPL ? ? Klennajq92-52 MPL ? Equivocal>40 MPL ? ? PositiveThe following results were obtained with the [employer] QUANTA Lite LAVON IgM IIIELISA. Cardiolipin IgM values obtained with different manufacturers' assaymethods may not be used interchangeably. The magnitude of the reported IgMlevels cannot be correlated to an endpoint titer.Cardiolipin Ab, IgA 0 - 11 APL <9Comment: <12 APL ? ? Pygnrkfi96-85 APL ? Equivocal>40 APL ? ? PositiveThe following results were obtained with an [employer]ova QUANTA Lite LAVON IgA IIIELISA. Cardiolipin IgA values obtained with different manufacturers' assaymethods may not be used interchangeably. The magnitude of the reported IgAlevels cannot be correlated to an endpoint titer.Beta 2 Glycoprotein, IgG <20 SGU <9Comment: < 20 ?SGU ? ?Mjqvuclx23-65 SGU ? ?Low Positive> 80 ?SGU ? ?High PositiveThese results were obtained with the [employer] QUANTA Lite B2 GPI IgG DAYNA.B2GPI IgG values obtained with different manufacturers' assay methods maynot be?used interchangeably. The magnitude of the reported IgG levels cannot becorrelated to an endpoint titer.Beta 2 Glycoprotein, IgM <20 SMU <9Comment: < 20 ?SMU ? ?Bigktkol27-26 SMU ? ?Low Positive> 80 ?SMU ? ?High PositiveThese results were obtained with the [employer] QUANTA Lite B2 GPI IgM DAYNA.B2GPI IgM values obtained with different manufacturers' assay methods maynot be?used interchangeably. The magnitude of the reported IgM levels cannot becorrelated to an endpoint titer.Resulting Agency CCMSpecimen Collected: 04/20/18 ?2:22 PM Last Resulted: 04/21/18 ?6:40 PM LabFlowsheet Order Details View Encounter Lab and Collection Details RoutingResult HistoryANA PANEL BLOOD SCRNOrder: [id number]: Final result ??Visible to patient: No (Not [...] WBC (k/uL)Date Value07/28/2018 6.67 Platelet Count (k/uL)Date Value11/ 193 ASSESSMENT/PL AN:1. 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) - ICD9: 790.92,ICD10: R79.1No evidence of a hypercoag stateNo indications for any interventionHer risk, in my opinion, of a hematologic complication from OCP's isaround the normal for population. No indication for intervention needed.Shant Romero MD Normal [facility] Remote Abs Gran + CBC (for F HC use only)on 08-06-2018 Absol Gran Count 3.97 k/uL Normal 1.45-7.50 [facility] Erythrocyte distribution width Auto Ratio (RBC) 12.1 % Normal 11.5-15.0 [facility] Hematocrit Auto Volume Fraction (Bld) 35.6 % Low 36.0-46.0 [facility] Hemoglobin mass conc (Bld) 11.6 g/dL Normal 11.5-15.5 [facility] MCH Auto Entitic mass (RBC) 31.1 pG Normal 26.0-34.0 [facility] MCHC Auto mass conc (RBC) 32.6 g/dL Normal 30.5-36.0 [facility] MCV Auto Entitic volume (RBC) 95.4 fL Normal 80.0-100.0 [facility] Platelet mean volume Auto Entitic volume (Bld) 10.4 fL Normal 9.0-12.7 [facility] Platelets Auto #/vol (Bld) 211 10*3/uL Normal 150-400 [facility] RBC Auto #/vol (Bld) 3.73 10*6/uL Low 3.90-5.20 [facility] WBC Auto #/vol (Bld) 6.52 10*3/uL Normal 3.70-11.00 [facility] Basic Metabolic Panlon 07-28 Anion gap 3 molar conc 10 mmol/L Normal 9-18 [facility] Calcium mass conc 9.3 mg/dL Normal 8.5-10.2 [facility] Chloride molar conc 104 mmol/L Normal 97-105 [facility] CO2 molar conc 23 mmol/L Normal 22-30 [facility] Creatinine mass conc 0.70 mg/dL Normal 0.58-0.96 [facility] eGFR- Amer. >60 Normal [facility] GFR/1.73 sq M predicted among non-blacks MDRD vol rate/area (S/P/Bld) mL/min/{1.73_m2} Normal [facility] Comment on above: Result Comment: [...] Glucose mass conc 101 mg/dL High 74-99 [facility] Potassium molar conc 4.0 mmol/L Normal 3.7-5.1 [facility] Sodium molar conc 137 mmol/L Normal 136-144 [facility] Urea nitrogen mass conc 12 mg/dL Normal 7-21 [facility] Hepatic Functn Panelon 07-28 Albumin mass conc 4.1 g/dL Normal 3.9-4.9 [facility] ALP enzyme act/vol 75 U/L Normal 34-123 [facility] ALT enzyme act/vol 16 U/L Normal 7-38 [facility] AST enzyme act/vol 14 U/L Normal 13-35 [facility] Bilirubin mass conc 0.3 mg/dL Normal 0.2-1.3 [facility] Bilirubin,Conjugated <0.2 Normal <0.2 [facility] Protein mass conc 7.2 g/dL Normal 6.3-8.0 [facility] Lupus Anticoag Panelon 07-28 aPTT Coag time (Bld) 24.3 s Low 24.4-33.4 [facility] Comment on above: Performed By: #### L UPUSP ####[address] [place], [place] [phone] aPTT Coag time (Bld) 26.3 s Normal <33.2 [facility] Comment on above: Performed By: #### L UPUSP ####[address] [phone] aPTT Coag time (Bld) 21.8 s Low 23.0-32.4 [facility] Comment on above: Result Comment: Unfr [...] laboratory APTT reagent in use throughout the [facility]. Performed By: #### L UPUSP ####[address] [phone] aPTT Coag time (Bld) 28.3 s Normal <35.0 [facility] Comment on above: Performed By: #### L UPUSP ####[address] [phone] Beta2 Glycoprot IgG <9 Normal <20 [facility] Comment on above: Result Comment: < 20 SGU Nejlwzef15-45 SGU Low Positive> 80 SGU High PositiveThese results were obtained with the [employer] QUANTA Lite B2 GPI IgG DAYNA. B2 GPI IgG values obtained with different manufacturers' assay methods may not be used interchangeably. The magnitude of the reported IgG levels cannot be correlated to an endpoint titer. Performed By: #### L UPUSP ####[address] [phone] DRVVT 1:1 Mix 33.9 sec Normal 32.7-46.7 [facility] Comment on above: Performed By: #### L UPUSP ####[address] [phone] DRVVT Confirm Ratio 1.10 Normal <1.21 [facility] Comment on above: Performed By: #### L UPUSP ####[address] [phone] DRVVT Screen 35.1 sec Normal 32.7-46.7 [facility] Comment on above: Performed By: #### L UPUSP ####[address] [phone] Hex Phase Confirm 32.6 sec Low 41.8-54.9 [facility] Comment on above: Performed By: #### L UPUSP ####[place] [phone] Hex Phase Delta 2.1 delta sec Normal <9.1 [facility] Comment on above: Performed By: #### L UPUSP ####[address] [phone] Hex Phase Screen 34.7 sec Low 45.0-59.9 [facility] Comment on above: Performed By: #### L UPUSP ####[place] [phone] IgA Cardiolipin Ab. <9 Normal 0-11 [facility] Comment on above: Result Comment: <12 APL Rxqbbudd53-31 APL Equivocal>40 APL PositiveThe following results were obtained with an WintegraA Lite LAVON IgA III DAYNA. Cardiolipin IgA values obtained with different manufacturers' assay methods may not be used interchangeably. The magnitude of the reported IgA levels cannot be correlated to an endpoint titer. Performed By: #### L UPUSP ####[address] [phone] IgG Cardiolipin Ab. <9 Normal 0-9 [facility] Comment on above: Result Comment: <10 GPL [id number] GPL Equivocal>40 GPL PositiveThe following results were obtained with the [employer] QUANTA Lite LAVON IgG III DAYNA. Cardiolipin IgG values obtained with the different manufacturers' assay methods may not be used interchangeably. The magnitude of the reported IgG levels cannot be correlated to an endpoint titer. Performed By: #### L UPUSP ####[facility] [place], [place] [phone] IgM Cardiolipin Ab. <9 Normal 0-11 [facility] Comment on above: Result Comment: <12 MPL Fbuspgzw69-15 MPL Equivocal>40 MPL PositiveThe following results were obtained with the [employer] QUANTA Lite LAVNO IgM III DAYNA. Cardiolipin IgM values obtained with different manufacturers' assay methods may not be used interchangeably. The magnitude of the reported IgM levels cannot be correlated to an endpoint titer. Performed By: #### L UPUSP ####[facility] [place], [place] [phone] INR Coag RelTime (Bld) 1.1 {INR} Normal 0.9-1.3 [facility] Comment on above: Result Comment: Maya min K Antagonist (VKA) Therapeutic Range: INR 2 to 3 (Target INR of 2.5)Note: For patients treated with VKA drugs, such as warfarin, the [employer] 2012 Guideline recommends [...] 70: 252-289 Performed By: #### L UPUSP ####[facility] [place], [place] [phone] Interpretation (NOTE) Normal [facility] Comment on above: Result Comment: Perf [facility] Pathologist: Myesha Ellsworth MDInterpretation:No significant abnormalities - [...] direct thrombin inhibitors, or heparin). Thromb.Haemost. 74:1185 (1994). Performed By: #### L UPUSP ####[facility] [place], [place] [phone] PNP Negative Normal Negative [facility] Comment on above: Performed By: #### L UPUSP ####[facility] [place], [place] [phone] Protein mass conc g/dL Normal <20 [facility] Comment on above: Result Comment: < 20 SMU Lczigapr15-68 SMU Low Positive> 80 SMU High PositiveThese results were obtained with the [employer] QUANTA Lite B2 GPI IgM DAYNA. B2 GPI IgM values obtained with different manufacturers' assay methods may not be used interchangeably. The magnitude of the reported IgM levels cannot be correlated to an endpoint titer. Performed By: #### L UPUSP ####[facility] [address] [place], [place] [phone] PT Sec 11.2 sec Normal 9.7-13.0 [facility] Comment on above: Performed By: #### L UPUSP ####[facility] [place], [place] [phone] Thrombin Time 17.7 sec Normal <18.6 [facility] Comment on above: Performed By: #### L UPUSP ####[facility] [place], [place] [phone] Remote Abs Gran + CBC (for F HC use only)on 07-28-2018 Absol Gran Count 4.19 k/uL Normal 1.45-7.50 [facility] Erythrocyte distribution width Auto Ratio (RBC) 12.4 % Normal 11.5-15.0 [facility] Hematocrit Auto Volume Fraction (Bld) 38.5 % Normal 36.0-46.0 [facility] Hemoglobin mass conc (Bld) 12.5 g/dL Normal 11.5-15.5 [facility] MCH Auto Entitic mass (RBC) 31.1 pG Normal 26.0-34.0 [facility] MCHC Auto mass conc (RBC) 32.5 g/dL Normal 30.5-36.0 [facility] MCV Auto Entitic volume (RBC) 95.8 fL Normal 80.0-100.0 [facility] Platelet mean volume Auto Entitic volume (Bld) 11.1 fL Normal 9.0-12.7 [facility] Platelets Auto #/vol (Bld) 193 10*3/uL Normal 150-400 [facility] RBC Auto #/vol (Bld) 4.02 10*6/uL Normal 3.90-5.20 [facility] WBC Auto #/vol (Bld) 6.67 10*3/uL Normal 3.70-11.00 [facility] Dilute RVVTon 07-08-2018 DRVVT 1:1 Mix 36.2 sec Normal 32.7-46.7 [facility] Comment on above: Performed By: #### D RVVT ####[address] [phone] DRVVT Confirm Ratio 0.91 Normal <1.21 [facility] Comment on above: Performed By: #### D RVVT ####[address] [phone] DRVVT Screen 36.1 sec Normal 32.7-46.7 [facility] Comment on above: Performed By: #### D RVVT ####[address] [phone] ROSANA Panel 1on 04-20-2018 ROSANA by EIA 0.4 OD Ratio Normal [facility] Comment on above: Result Comment: OD R atio is interpreted as follows:Negative <1.0Positive >=1.0 Performed By: #### W SR, PRCFUN, AT3ASY, PRSCLT, SERIMM, HOMCYS, IRON, FERR, B12, SERFOL, ANA1, HSCRP ####[address] [phone] ROSANA by EIA, Qual Negative Normal Negative [facility] Comment on above: Performed By: #### W SR, PRCFUN, AT3ASY, PRSCLT, SERIMM, HOMCYS, IRON, FERR, B12, SERFOL, ANA1, HSCRP ####[place] [address] [place], [place] [phone] Antithrombin Assayon 018 Antithrombin Assay 93 % Normal 84-138 [facility] Comment on above: Performed By: #### W SR, PRCFUN, AT3ASY, PRSCLT, SERIMM, HOMCYS, IRON, FERR, B12, SERFOL, ANA1, HSCRP ####[address] [phone] Comp Metabolic Panelon 04-20 Albumin mass conc 4.3 g/dL Normal 3.9-4.9 [facility] Comment on above: Performed By: #### W SR, PRCFUN, AT3ASY, PRSCLT, SERIMM, HOMCYS, IRON, FERR, B12, SERFOL, ANA1, HSCRP ####[place] [address] [place] [phone] ALP enzyme act/vol 98 U/L Normal 32-117 [facility] Comment on above: Performed By: #### W SR, PRCFUN, AT3ASY, PRSCLT, SERIMM, HOMCYS, IRON, FERR, B12, SERFOL, ANA1, HSCRP ####[place] [address], [place] [phone] ALT enzyme act/vol 13 U/L Normal 7-38 [facility] Comment on above: Performed By: #### W SR, PRCFUN, AT3ASY, PRSCLT, SERIMM, HOMCYS, IRON, FERR, B12, SERFOL, ANA1, HSCRP ####[place] [phone] Anion gap 3 molar conc 9 mmol/L Normal 9-18 [facility] Comment on above: Performed By: #### W SR, PRCFUN, AT3ASY, PRSCLT, SERIMM, HOMCYS, IRON, FERR, B12, SERFOL, ANA1, HSCRP ####[place] [address], [place] [phone] AST enzyme act/vol 14 U/L Normal 13-35 [facility] Comment on above: Performed By: #### W SR, PRCFUN, AT3ASY, PRSCLT, SERIMM, HOMCYS, IRON, FERR, B12, SERFOL, ANA1, HSCRP ####[place] [address], [place] [phone] Bilirubin mass conc 0.2 mg/dL Normal 0.2-1.3 [facility] Comment on above: Performed By: #### W SR, PRCFUN, AT3ASY, PRSCLT, SERIMM, HOMCYS, IRON, FERR, B12, SERFOL, ANA1, HSCRP ####[place] [address] [place] [phone] Calcium mass conc 9.2 mg/dL Normal 8.5-10.2 [facility] Comment on above: Performed By: #### W SR, PRCFUN, AT3ASY, PRSCLT, SERIMM, HOMCYS, IRON, FERR, B12, SERFOL, ANA1, HSCRP ####[place] [phone] Chloride molar conc 102 mmol/L Normal 97-105 [facility] Comment on above: Performed By: #### W SR, PRCFUN, AT3ASY, PRSCLT, SERIMM, HOMCYS, IRON, FERR, B12, SERFOL, ANA1, HSCRP ####[address] [place] [place] [phone] CO2 molar conc 28 mmol/L Normal 22-30 [facility] Comment on above: Performed By: #### W SR, PRCFUN, AT3ASY, PRSCLT, SERIMM, HOMCYS, IRON, FERR, B12, SERFOL, ANA1, HSCRP ####[place] [address] [phone] Creatinine mass conc 0.96 mg/dL Normal 0.58-0.96 [facility] Comment on above: Performed By: #### W SR, PRCFUN, AT3ASY, PRSCLT, SERIMM, HOMCYS, IRON, FERR, B12, SERFOL, ANA1, HSCRP ####[place] [address] [place] [phone] eGFR- Amer. >60 Normal [facility] Comment on above: Performed By: #### W SR, PRCFUN, AT3ASY, PRSCLT, SERIMM, HOMCYS, IRON, FERR, B12, SERFOL, ANA1, HSCRP ####[address] [phone] GFR/1.73 sq M predicted among non-blacks MDRD vol rate/area (S/P/Bld) mL/min/{1.73_m2} Normal [facility] Comment on above: Result Comment: [...] HOMCYS, IRON, FERR, B12, SERFOL, ANA1, HSCRP ####[address] [phone] Glucose mass conc 103 mg/dL High 74-99 [facility] Comment on above: Performed By: #### W SR, PRCFUN, AT3ASY, PRSCLT, SERIMM, HOMCYS, IRON, FERR, B12, SERFOL, ANA1, HSCRP ####[address] [phone] Potassium molar conc 3.9 mmol/L Normal 3.7-5.1 [facility] Comment on above: Performed By: #### W SR, PRCFUN, AT3ASY, PRSCLT, SERIMM, HOMCYS, IRON, FERR, B12, SERFOL, ANA1, HSCRP ####[address] [phone] Protein mass conc 7.2 g/dL Normal 6.3-8.0 [facility] Comment on above: Performed By: #### W SR, PRCFUN, AT3ASY, PRSCLT, SERIMM, HOMCYS, IRON, FERR, B12, SERFOL, ANA1, HSCRP ####[address] [phone] Sodium molar conc 139 mmol/L Normal 136-144 [facility] Comment on above: Performed By: #### W SR, PRCFUN, AT3ASY, PRSCLT, SERIMM, HOMCYS, IRON, FERR, B12, SERFOL, ANA1, HSCRP ####[address] [phone] Urea nitrogen mass conc 14 mg/dL Normal 7-21 [facility] Comment on above: Performed By: #### W SR, PRCFUN, AT3ASY, PRSCLT, SERIMM, HOMCYS, IRON, FERR, B12, SERFOL, ANA1, HSCRP ####[address] [phone] Factor V Leiden PCRon 2017 FV Leiden Report (NOTE) Normal [facility] Comment on above: Result Comment: [facility] Pathologist: Alvina Sotomayor M.D., Ph.D.Factor V [...] hybridization probes. Performed By: #### F VLEI ####[address] [phone] Ferritinon 04-20-2018 Ferritin [Mass/volume] in Serum or Plasma 53.7 ng/mL Normal 14.7-205.1 [facility] Comment on above: Performed By: #### W SR, PRCFUN, AT3ASY, PRSCLT, SERIMM, HOMCYS, IRON, FERR, B12, SERFOL, ANA1, HSCRP ####[address], [place] [phone] Folate, Serumon 04-20-2018 Folate [Mass/volume] in Serum or Plasma 10.0 ng/mL Normal >4.7 [facility] Comment on above: Performed By: #### W SR, PRCFUN, AT3ASY, PRSCLT, SERIMM, HOMCYS, IRON, FERR, B12, SERFOL, ANA1, HSCRP ####[address] [place], [place] [phone] Homocysteineon 04-20-2018 Homocysteine 9.5 umol/L Normal <15.1 [facility] Comment on above: Performed By: #### W SR, PRCFUN, AT3ASY, PRSCLT, SERIMM, HOMCYS, IRON, FERR, B12, SERFOL, ANA1, HSCRP ####[place] [address], [place] [phone] Immunoglobulins GAMon 2017 IgA mass conc 237 mg/dL Normal 78-391 [facility] Comment on above: Performed By: #### W SR, PRCFUN, AT3ASY, PRSCLT, SERIMM, HOMCYS, IRON, FERR, B12, SERFOL, ANA1, HSCRP ####[place] [address], [place] [phone] IgG mass conc 1220 mg/dL Normal 717-1411 [facility] Comment on above: Performed By: #### W SR, PRCFUN, AT3ASY, PRSCLT, SERIMM, HOMCYS, IRON, FERR, B12, SERFOL, ANA1, HSCRP ####[address] [phone] IgM mass conc 139 mg/dL Normal 53-334 [facility] Comment on above: Performed By: #### W SR, PRCFUN, AT3ASY, PRSCLT, SERIMM, HOMCYS, IRON, FERR, B12, SERFOL, ANA1, HSCRP ####[address] [phone] Iron and TIBCon 04-20-2018 Iron mass conc 36 ug/dL Low 41-186 [facility] Comment on above: Performed By: #### W SR, PRCFUN, AT3ASY, PRSCLT, SERIMM, HOMCYS, IRON, FERR, B12, SERFOL, ANA1, HSCRP ####[address] [phone] TIBC 271 ug/dL Normal 232-386 [facility] Comment on above: Performed By: #### W SR, PRCFUN, AT3ASY, PRSCLT, SERIMM, HOMCYS, IRON, FERR, B12, SERFOL, ANA1, HSCRP ####[address] [phone] Transferrin Saturatn 13 % Low 15-57 [facility] Comment on above: Performed By: #### W SR, PRCFUN, AT3ASY, PRSCLT, SERIMM, HOMCYS, IRON, FERR, B12, SERFOL, ANA1, HSCRP ####[address] [phone] LDon 04-20-2018 LD 197 U/L Normal 135-214 [facility] Comment on above: Performed By: #### W SR, PRCFUN, AT3ASY, PRSCLT, SERIMM, HOMCYS, IRON, FERR, B12, SERFOL, ANA1, HSCRP ####[address] [phone] Lupus Anticoag Panelon 04-20 aPTT Coag time (Bld) 26.7 s Normal 23.0-32.4 [facility] Comment on above: Result Comment: Unfr [...] laboratory APTT reagent in use throughout the [facility]. Performed By: #### L UPUSP ####[address] [phone] aPTT Coag time (Bld) 32.4 s Normal <35.0 [facility] Comment on above: Performed By: #### L UPUSP ####[address] [phone] aPTT Coag time (Bld) 30.6 s Normal <33.2 [facility] Comment on above: Performed By: #### L UPUSP ####[address] [phone] aPTT Coag time (Bld) 33.0 s Normal 24.4-33.4 [facility] Comment on above: Result Comment: Resu lt rechecked. Performed By: #### L UPUSP ####[address] [phone] Beta2 Glycoprot IgG <9 Normal <20 [facility] Comment on above: Result Comment: < 20 SGU Acchqbjk41-21 SGU Low Positive> 80 SGU High PositiveThese results were obtained with the [employer] QUANTA Lite B2 GPI IgG DAYNA. B2 GPI IgG values obtained with different manufacturers' assay methods may not be used interchangeably. The magnitude of the reported IgG levels cannot be correlated to an endpoint titer. Performed By: #### L UPUSP ####[facility] [phone] DRVVT 1:1 Mix 41.3 sec Normal 32.7-46.7 [facility] Comment on above: Performed By: #### L UPUSP ####[place] [address] [place] [phone] DRVVT Confirm Ratio 1.06 Normal <1.21 [facility] Comment on above: Performed By: #### L UPUSP ####[place] [address] [place] [phone] DRVVT Screen 42.3 sec Normal 32.7-46.7 [facility] Comment on above: Performed By: #### L UPUSP ####[place] [address] [place] [phone] Hex Phase Confirm 47.7 sec Normal 41.8-54.9 [facility] Comment on above: Performed By: #### L UPUSP ####[place] [address] [place] [phone] Hex Phase Delta 6.7 delta sec Normal <9.1 [facility] Comment on above: Performed By: #### L UPUSP ####[place] [address] [address] [place] [phone] Hex Phase Screen 54.5 sec Normal 45.0-59.9 [facility] Comment on above: Performed By: #### L UPUSP ####[address] [place] [phone] IgA Cardiolipin Ab. <9 Normal 0-11 [facility] Comment on above: Result Comment: <12 APL [id number] APL Equivocal>40 APL PositiveThe following results were obtained with an WintegraA Lite LAVON IgA III DAYNA. Cardiolipin IgA values obtained with different manufacturers' assay methods may not be used interchangeably. The magnitude of the reported IgA levels cannot be correlated to an endpoint titer. Performed By: #### L UPUSP ####[address] [phone] IgG Cardiolipin Ab. <9 Normal 0-9 [facility] Comment on above: Result Comment: <10 GPL [id number] GPL Equivocal>40 GPL PositiveThe following results were obtained with the Inova QUANTA Lite LAVON IgG III DAYNA. Cardiolipin IgG values obtained with the different manufacturers' assay methods may not be used interchangeably. The magnitude of the reported IgG levels cannot be correlated to an endpoint titer. Performed By: #### L UPUSP ####[address] [phone] IgM Cardiolipin Ab. 9 MPL Normal 0-11 [facility] Comment on above: Result Comment: <12 MPL [id number] MPL Equivocal>40 MPL PositiveThe following results were obtained with the Inova QUANTA Lite LAVON IgM III DAYNA. Cardiolipin IgM values obtained with different manufacturers' assay methods may not be used interchangeably. The magnitude of the reported IgM levels cannot be correlated to an endpoint titer. Performed By: #### L UPUSP ####[address] [phone] INR Coag RelTime (Bld) 1.0 {INR} Normal 0.9-1.3 [facility] Comment on above: Result Comment: Maya min K Antagonist (VKA) Therapeutic Range: INR 2 to 3 (Target INR of 2.5)Note: For patients treated with VKA drugs, such as warfarin, the [place] [employer] 2012 Guideline recommends [...] al. Chest 2012, 141:7S-47SNishimura RA, et al. [facility] 2017, 70: 252-289 Performed By: #### L UPUSP ####[address] [place], [place] [phone] Interpretation (NOTE) Normal [facility] Comment on above: Result Comment: [facility] Pathologist: Alvina Sotomayor M.D., Ph.D.Normal - see [...] direct thrombin inhibitors, or heparin). Thromb.Haemost. 74:1185 (1994). Performed By: #### L UPUSP ####[facility] [place], [place] [phone] PNP Negative Normal Negative [facility] Comment on above: Performed By: #### L UPUSP ####[facility] [place], [place] [phone] Protein mass conc g/dL Normal <20 [facility] Comment on above: Result Comment: < 20 [facility] [id number] [facility] Low Positive> 80 [facility] High PositiveThese results were obtained with the WintegraA Lite B2 GPI IgM DAYNA. B2 GPI IgM values obtained with different manufacturers' assay methods may not be used interchangeably. The magnitude of the reported IgM levels cannot be correlated to an endpoint titer. Performed By: #### L UPUSP ####[address] [phone] PT Sec 10.1 sec Normal 9.7-13.0 [facility] Comment on above: Performed By: #### L UPUSP ####[address] [phone] Thrombin Time 16.1 sec Normal <18.6 [facility] Comment on above: Performed By: #### L UPUSP ####[address] [phone] Protein C Functionalon 04-20 Protein mass conc 104 % Normal 76-147 [facility] Comment on above: Performed By: #### W SR, PRCFUN, AT3ASY, PRSCLT, SERIMM, HOMCYS, IRON, FERR, B12, SERFOL, ANA1, HSCRP ####[address] [place], [place] [phone] Protein S Clottableon 2017 Protein S Clottable 108 % Normal 59-131 [facility] Comment on above: Performed By: #### W SR, PRCFUN, AT3ASY, PRSCLT, SERIMM, HOMCYS, IRON, FERR, B12, SERFOL, ANA1, HSCRP ####[address] [phone] Prothrombin Gene PCRon 04-20 PT Gene Report (NOTE) Normal [facility] Comment on above: Result Comment: Perf orming Pathologist: Alvina Sotomayor M.D., Ph.D.PT Gene Mutation Result: NORMALPT Gene Mutation Interpretation: The DNA sample is negative for [id number] point mutation in the 3' untranslated region of theprothrombin gene.This is not associated with an increased risk ofvenous thrombosis.Venous thrombosis is a multifactorial disorder, andother causes of venous thrombosis are not excluded.PT Gene Mutation Method: This assay was performed by polymerase chainreaction and fluorescence monitoring using hybridization probes. Performed By: #### P TGEN ####[facility] [address] [place], [place] [phone] Remote CBCDIF (for [facility] use o nly)on 04-20-2018 Abs Baso <0.03 Normal 0.00-0.10 [facility] Abs [place] 0.48 k/uL Normal 0.00-0.86 [facility] Abs Neut 3.86 k/uL Normal 1.45-7.50 [facility] Basophils/100 WBC Auto (Bld) 0.3 % Normal [facility] Eosinophils Auto #/vol (Bld) 0.09 10*3/uL Normal 0.00-0.45 [facility] Eosinophils/100 WBC Auto (Bld) 1.4 % Normal [facility] Erythrocyte distribution width Auto Ratio (RBC) 11.9 % Normal 11.5-15.0 [facility] Hematocrit Auto Volume Fraction (Bld) 37.0 % Normal 36.0-46.0 [facility] Hemoglobin mass conc (Bld) 12.6 g/dL Normal 11.5-15.5 [facility] Lymphocytes Auto #/vol (Bld) 2.07 10*3/uL Normal 1.00-4.00 [facility] Lymphocytes/100 WBC Auto (Bld) 31.7 % Normal [facility] MCH Auto Entitic mass (RBC) 33.2 pG Normal 26.0-34.0 [facility] MCHC Auto mass conc (RBC) 34.1 g/dL Normal 30.5-36.0 [facility] MCV Auto Entitic volume (RBC) 97.4 fL Normal 80.0-100.0 [facility] Monocytes/100 WBC Auto (Bld) 7.4 % Normal [facility] Neutrophils/100 WBC Auto (Bld) 59.2 % Normal [facility] Platelet mean volume Auto Entitic volume (Bld) 10.7 fL Normal 9.0-12.7 [facility] Platelets Auto #/vol (Bld) 226 10*3/uL Normal 150-400 [facility] RBC Auto #/vol (Bld) 3.80 10*6/uL Low 3.90-5.20 [facility] WBC Auto #/vol (Bld) 6.52 10*3/uL Normal 3.70-11.00 [facility] Sed Rate Westergrenon 2017 Sed Rate Westergren 15 mm/hr Normal 0-20 [facility] Comment on above: Performed By: #### W SR, PRCFUN, AT3ASY, PRSCLT, SERIMM, HOMCYS, IRON, FERR, B12, SERFOL, ANA1, HSCRP ####[facility] [place], [place] [phone] Ultra-sensitive CRPon 2017 Protein mass conc 11.1 mg/L High <3.1 [facility] Comment on above: Result Comment: (NOT E)hsCRP < 1.0 mg/L, relative risk is lowhsCRP 1.0-3.0 mg/L, relative risk is averagehsCRP > 3.0 mg/L, relative risk is highReference:Trevin TA, Salvador GA, Raman RW, et al. Markers of Inflammationand Cardiovascular Disease. Application to Clinical and PublicHealth Practice. A Statement for Healthcare Professionals From theKettering Health Prebleers for Disease Control and Prevention and the [place] [employer]. Circulation 2003;107:499-511. Performed By: #### W SR, PRCFUN, AT3ASY, PRSCLT, SERIMM, HOMCYS, IRON, FERR, B12, SERFOL, ANA1, HSCRP ####[facility] [place], [place] [phone] Vitamin B12on 04-20-2018 Cobalamin (Vitamin B12) mass conc 445 pg/mL Normal 232-1245 [facility] Comment on above: Performed By: #### W SR, PRCFUN, AT3ASY, PRSCLT, SERIMM, HOMCYS, IRON, FERR, B12, SERFOL, ANA1, HSCRP ####[facility] [place], [place] [phone] CNOVSPon 04-15-2018 CNOVSP Visit (SP) Office (HEMACL) AZUL ONTIVEROS ([id number]) 1990 FDate Time Provider Department04/15/18 3:15 PM LATASHA HU HEMACL During your visit today, we recorded the following information about you: Temperature Pulse Respiration Blood pressure 98.8 degrees 82/minute 16/minute 130/83 Weight Height 118.3 kg 1.524 Arun Gene 04/15/2018 3:44 PM SignedPt states that she has been having some abdominal cramping for about 2-3 yearsnow. 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) (primaryencounter diagnosis)Mildly elevated dilute Idalia viper venom time in a otherwise qofxjnt80-lerc-bwn female with no history suggestive of bleeding [...] considered for referral to hematologic subspecialist at [facility].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.We'll also check for lupus screen with an ROSANA.Mild anemiaWe'll check iron studies, B-12, folate, sedimentation rate.Visit (SP) Office on 04/15/18-FACTOR V LEIDEN/PCR-PROTHROMBIN GENE PCR-PROTEIN S CLOTTABLE-PROTEIN C FUNCT-ANTITHROMBIN III-LUPUS ANTICOAG PL-B 2 GPI IGG AND XEL-CNPQ-TMWSPCZBYEY GN-UCADAFLKBXFQ-AYC PANEL BLOOD SCRN-IRON + TIBC-FERRITIN BLD-VITAMIN B12 BLOOD-FOLATE SERUM-IMMUNOGLOBULINS YUSRA-LD LACTATE DEHYDRO-SED RATE OAIRDTSCVN-U-FCIDRYTE ULTRA SEN-ACTIVATED PTT-PROTHROMBIN TIME/PT-CBC + DIFF (FOR REMOTE [facility] USE)-COMP METABOLIC PANEL-ACTIVATED PTT-PROTHROMBIN TIME/PT-B 2 GPI IGG AND VXK-ZTXS-IKLWCXLZOGD AB-LUPUS ANTICOAG PL Return in about 4 [...] of midol and excedrin. She works [employer] in [place].Her mother has a history of cervical cancer [...] plan. I answered allquestions satisfactorily..Rowdy Hu D.O.Medical OncologistWashington Rural Health Collaborative [facility] [place], [place]Referring Provider: CHAY CASTRO [[id number]]Allergies As of Date: 04/15/2018 Noted Allergy ReactionIODINE 04/15/2018 2 - RashDate Reviewed: 04/15/2018Reviewed by: Zee Mills - Fully AssessedReason for Visit: Consult [173] Cmt: Abnormal labsPrimary Visit Diagnosis: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) [R79.1]Order(s):FACTOR V LEIDEN/PCR [SQFVLEID] Order #: [id number] FUTURE PROTHROMBIN GENE PCR [SQPTGENE] Order #: [id number] FUTURE PROTEIN S CLOTTABLE [SQPRSCLT] Order #: [id number] FUTURE PROTEIN C FUNCT [SQPRCFUN] Order #: [id number] FUTURE ANTITHROMBIN III [EVYT3BSB] Order #: [id number] FUTURE LUPUS ANTICOAG PL [SQLUPUSP] Order #: [id number] FUTURE B 2 GPI IGG AND IGM [KYM7RPDN] Order #: [id number] FUTURE ANTI-CARDIOLIPIN AB [SQCARDIO] Order #: [id number] FUTURE HOMOCYSTEINE [SQHOMCYS] Order #: [id number] FUTURE ROSANA PANEL BLOOD SCRN [SQANA1] Order #: [id number] FUTURE IRON + TIBC [SQIRON] Order #: [id number] FUTURE FERRITIN BLD [SQFERR] Order #: [id number] FUTURE VITAMIN B12 BLOOD [SQB12] Order #: [id number] FUTURE FOLATE SERUM [SQSERFOL] Order #: [id number] FUTURE IMMUNOGLOBULINS YUSRA [SQSERIMM] Order #: [id number] FUTURE LD LACTATE DEHYDRO [SQLD6] Order #: [id number] FUTURE SED RATE WESTERGREN [SQWSR] Order #: [id number] FUTURE C-REACTIVE ULTRA SEN [SQHSCRP] Order #: [id number] FUTURE ACTIVATED PTT [SQPTT] Order #: [id number] FUTURE PROTHROMBIN TIME/PT [SQPT] Order #: [id number] FUTURE CBC + DIFF (FOR REMOTE [facility] USE) [SQRCBCDF] Order #: [id number] FUTURE COMP METABOLIC PANEL [SQCMP] Order #: [id number] FUTURE ACTIVATED PTT [SQPTT] Order #: [id number] FUTURE PROTHROMBIN TIME/PT [SQPT] Order #: [id number] FUTURE B 2 GPI IGG AND IGM [QUU0BHON] Order #: [id number] FUTURE ANTI-CARDIOLIPIN AB [SQCARDIO] Order #: [id number] FUTURE LUPUS ANTICOAG PL [SQLUPUSP] Order #: [id number] FUTUREDisposition: Return in about 4 months (around [...] by LATASHA HU DO on 04/19/18 Normal [facility] PROGRESSon 04-15-2018 Protein mass conc HNO ID: [id number] thor: Latasha HuService: (none)Author Type: PhysicianType: Progress NotesFiled: 04/19/2018 9:38 AMNote Text:PATIENT NAME: Azul Llanos EtzwilerMRN: [id number] PHYSICIAN: Chay Castro DO[address] [address]PXENTGP CARE PHYSICIAN: No primary care provider on file.OTHER PHYSICIANS:CHIEF COMPLAINT: 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)ASSESSMENT/PLAN: (R79.1) 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) (primaryencounter diagnosis)Mildly elevated dilute Idalia viper venom time in a otherwise uzxibxc24-yvsw-wwq female with no history suggestive of bleeding [...] considered for referral to hematologic subspecialist at [facility].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.We'll also check for lupus screen with an ROSANA.Mild anemiaWe'll check iron studies, B-12, folate, sedimentation rate.Visit (SP) Office on 04/15/18-FACTOR V LEIDEN/PCR-PROTHROMBIN GENE PCR-PROTEIN S CLOTTABLE-PROTEIN C FUNCT-ANTITHROMBIN III-LUPUS ANTICOAG PL-B 2 GPI IGG AND WLZ-QCIJ-QYWIVZSGYTQ BC-JLFYNEFVNBGY-KDF PANEL BLOOD SCRN-IRON + TIBC-FERRITIN BLD-VITAMIN B12 BLOOD-FOLATE SERUM-IMMUNOGLOBULINS YUSRA-LD LACTATE DEHYDRO-SED RATE AJNHHOAEFQ-I-GEZHAYIH ULTRA SEN-ACTIVATED PTT-PROTHROMBIN TIME/PT-CBC + DIFF (FOR REMOTE [facility] USE)-COMP METABOLIC PANEL-ACTIVATED PTT-PROTHROMBIN TIME/PT-B 2 GPI IGG AND XHV-NZTQ-IUVPNHBODUD AB-LUPUS ANTICOAG PL Return in about 4 [...] of midol and excedrin. Sheworks in a [employer] in [place].Her mother has a history of cervical cancer [...] plan.I answered all questions satisfactorily..Rowdy Hu D.O.Medical OncologistRivendell Behavioral Health Services Vital Signs Date Time Vital Sign Value Performing Clinician Hedy miller 10-25-2023 16:49-0500 Diastolic blood pressure 78 mm[Hg] Alexx Jean [facility] 10-25-2023 16:49-0500 Heart rate 74 /min Alexx Jean [facility] 10-25-2023 16:49-0500 Mean blood pressure 97 mm[Hg] Alexx Jean [facility] 10-25-2023 16:49-0500 Respiratory rate 18 /min Alexx Jean [facility] 10-25-2023 16:49-0500 SaO2% (BldA) [Mass fraction] 100 % Alexx Jean [facility] 10-25-2023 16:49-0500 Systolic blood pressure 134 mm[Hg] Alexx Jean [facility] 10-25-2023 16:30-0500 Hourly Rounding Alexx Jean [facility] 10-25-2023 16:30-0500 Promise to Return Laexx Jean [facility] 10-25-2023 16:00-0500 Diastolic blood pressure 82 mm[Hg] Alexx Jean [facility] 10-25-2023 16:00-0500 Heart rate 81 /min Alexx Dolle [facility] 10-25-2023 16:00-0500 SaO2% (BldA) [Mass fraction] 94 % Alexx Dolle [facility] 10-25-2023 16:00-0500 Systolic blood pressure 127 mm[Hg] Alexx Dolle [facility] 10-25-2023 15:28-0500 Hourly Rounding Alexx Dolle [facility] 10-25-2023 15:28-0500 Promise to Return Alexx Dolle [facility] 10-25-2023 15:02-0500 Diastolic blood pressure 138 mm[Hg] Alexx Dolle [facility] 10-25-2023 15:02-0500 Heart rate 94 /min Alexx Dolle [facility] 10-25-2023 15:02-0500 Mean blood pressure 142 mm[Hg] Alexx Dolle [facility] 10-25-2023 15:02-0500 Respiratory rate 18 /min Alexx Dolle [facility] 10-25-2023 15:02-0500 SaO2% (BldA) [Mass fraction] 99 % Alexx Dolle [facility] 10-25-2023 15:02-0500 Systolic blood pressure 150 mm[Hg] Alexx Jean [facility] 10-25-2023 14:20-0500 Body temperature 98.24 [degF] Alexx Jean [facility] 10-25-2023 14:20-0500 Heart rate 112 /min Alexx Dolle [facility] 10-20-2023 15:33-0500 Blood Pressure Location Glenn Gupta [facility] 10-20-2023 15:33-0500 Diastolic blood pressure 84 mm[Hg] Glenn Gupta [facility] 10-20-2023 15:33-0500 Heart rate 95 /min Glenn Gupta [facility] 10-20-2023 15:33-0500 SaO2% (BldA) [Mass fraction] 98 % Glenn Gupta [facility] 10-20-2023 15:33-0500 Systolic blood pressure 117 mm[Hg] Glenn Candy [facility] 08-15-2023 09:18-0500 Blood Pressure Location Alexx Gupta [facility] [place] 08-15-2023 09:18-0500 Diastolic blood pressure 76 mm[Hg] Alexx Gupta [facility] [place] 08-15-2023 09:18-0500 Heart rate 92 /min Alexx Gupta [facility] 08-15-2023 09:18-0500 Respiratory rate 16 /min Alexx Gupta [facility] General Surgery [place] 08-15-2023 09:18-0500 Systolic blood pressure 119 mm[Hg] Alexx Gupta [facility] 08-12-2023 11:20-0500 Body temperature 98.06 [degF] Alexx Gupta [facility] 08-12-2023 11:20-0500 Diastolic blood pressure 90 mm[Hg] Alexx Gupta [facility] General [facility] [place] 08-12-2023 11:20-0500 Heart rate 114 /min Alexx Leroyy [facility] [place] 08-12-2023 11:20-0500 Systolic blood pressure 137 mm[Hg] Alexx Mourany [facility] 08-11-2023 13:20-0500 Diastolic blood pressure 85 mm[Hg] Glenn Nyeofferson [facility] 08-11-2023 13:20-0500 Heart rate 100 /min Glenn Christofferson [facility] 08-11-2023 13:20-0500 SaO2% (BldA) [Mass fraction] 100 % Glenn Christofferson [facility] 08-11-2023 13:20-0500 Systolic blood pressure 140 mm[Hg] Glenn Nyeofferson [facility] 08-06-2023 11:15-0500 Heart rate 77 /min Alexx Manciaurany [facility] 08-06-2023 11:15-0500 SaO2% (BldA) [Mass fraction] 97 % Alexx Manciaurany [facility] 08-06-2023 11:15-0500 Respiratory rate 16 /min Alexx Manicaurany [facility] 08-06-2023 11:14-0500 Diastolic blood pressure 87 mm[Hg] Alexx Mourany [facility] 08-06-2023 11:14-0500 Mean blood pressure 98 mm[Hg] Alexx Mourany [facility] 08-06-2023 11:14-0500 Systolic blood pressure 118 mm[Hg] Alexx Mourany [facility] 08-06-2023 09:59-0500 Heart rate 79 /min Alexx Mourany [facility] 08-06-2023 09:59-0500 SaO2% (BldA) [Mass fraction] 94 % Alexx Mourany [facility] 08-06-2023 09:59-0500 Diastolic blood pressure 82 mm[Hg] Alexx Mourany [facility] 08-06-2023 09:59-0500 Mean blood pressure 98 mm[Hg] Alexx Mourany [facility] 08-06-2023 09:59-0500 Systolic blood pressure 129 mm[Hg] Alexx Mourany [facility] 08-06-2023 09:59-0500 Respiratory rate 16 /min Alexx Mourany [facility] 08-06-2023 09:50-0500 Blood Pressure Location Alexx Mourany [facility] 08-06-2023 09:50-0500 Body temperature 98.06 [degF] Alexx Mourany [facility] 08-06-2023 09:50-0500 Diastolic blood pressure 92 mm[Hg] Alexx Mourany [facility] 08-06-2023 09:50-0500 Heart rate 80 /min Alexx Mourany [facility] 08-06-2023 09:50-0500 Mean blood pressure 103 mm[Hg] Alexx Mourany [facility] 08-06-2023 09:50-0500 Respiratory rate 20 /min Alexx Mourany [facility] 08-06-2023 09:50-0500 SaO2% (BldA) [Mass fraction] 93 % Alexx Mourany [facility] 08-06-2023 09:50-0500 Systolic blood pressure 124 mm[Hg] Alexx Mourany [facility] 08-06-2023 09:40-0500 Blood Pressure Location Alexx Mourany [facility] 08-06-2023 09:40-0500 Mean blood pressure 100 mm[Hg] Alexx Mourany [facility] 08-06-2023 09:40-0500 Respiratory rate 20 /min Alexx Mourany [facility] 08-06-2023 09:35-0500 Blood Pressure Location Alexx Mourany [facility] 08-06-2023 09:35-0500 Mean blood pressure 102 mm[Hg] Alexx Mourany [facility] 08-06-2023 09:35-0500 Respiratory rate 24 /min Alexx Mourany [facility] 08-06-2023 09:20-0500 Respiratory rate 19 /min Alexx Mourany [facility] 08-06-2023 06:11-0500 Mean blood pressure 79 mm[Hg] Alexx Mourany [facility] 08-06-2023 06:11-0500 Heart rate 84 /min Alexx Mourany [facility] 08-06-2023 06:08-0500 Body temperature 97.88 [degF] Alexx Mourany [facility] 07-25-2023 09:28-0500 Blood Pressure Location Alexx Mourany [facility] 07-25-2023 09:28-0500 Diastolic blood pressure 74 mm[Hg] Alexx Mourany [facility] 07-25-2023 09:28-0500 Heart rate 86 /min Alexx Mourany [facility] 07-25-2023 09:28-0500 Mean blood pressure 89 mm[Hg] Alexx Mourany [facility] 07-25-2023 09:28-0500 Systolic blood pressure 120 mm[Hg] Alexx Mourany [facility] 07-25-2023 09:28-0500 Heart rate 78 /min Alexx Mourany [facility] 07-25-2023 09:28-0500 SaO2% (BldA) [Mass fraction] 99 % Alexx Mourany [facility] 07-25-2023 09:28-0500 Respiratory rate 18 /min Alexx Mourany [facility] 07-25-2023 09:27-0500 Blood Pressure Location Alexx Mourany [facility] 07-25-2023 09:27-0500 Body temperature 97.88 [degF] Alexx Mourany [facility] 07-25-2023 09:27-0500 Diastolic blood pressure 83 mm[Hg] Alexx Mourany [facility] 07-25-2023 09:27-0500 Mean blood pressure 97 mm[Hg] Alexx Mourany [facility] 07-25-2023 09:27-0500 Systolic blood pressure 125 mm[Hg] Alexx Mourany [facility] 07-21-2023 14:40-0500 Diastolic blood pressure 81 mm[Hg] Alexx Mourany [facility] General Surgery [place] 07-21-2023 14:40-0500 Heart rate 93 /min Alexx Gupta [facility] 07-21-2023 14:40-0500 Systolic blood pressure 121 mm[Hg] Alexx Gupta [facility] General [facility] [place] 07-08-2023 13:57-0400 Blood Pressure Location Melissa Nunez [facility] 07-08-2023 13:57-0400 Body temperature 96.98 [degF] Melissa Castillometz [facility] 07-08-2023 13:57-0400 Diastolic blood pressure 74 mm[Hg] Melissa Nunez [facility] 07-08-2023 13:57-0400 Heart rate 87 /min Melissa Nunez [facility] 07-08-2023 13:57-0400 Respiratory rate 16 /min Melissa Castillometz [facility] 07-08-2023 13:57-0400 Systolic blood pressure 111 mm[Hg] Melissa Nunez [facility] 06-23-2023 12:53-0400 Diastolic blood pressure 68 mm[Hg] Alexx Pena [facility] 06-23-2023 12:53-0400 Heart rate 79 /min Alexx Pena [facility] 06-23-2023 12:53-0400 Mean blood pressure 76 mm[Hg] [facility]x [facility] [facility] 06-23-2023 12:53-0400 Respiratory rate 24 /min Alexx Jean [facility] 06-23-2023 12:53-0400 SaO2% (BldA) [Mass fraction] 100 % Alexx Jean [facility] 06-23-2023 12:53-0400 Systolic blood pressure 91 mm[Hg] Alexx Jean [facility] 06-23-2023 12:30-0400 Diastolic blood pressure 66 mm[Hg] Alexx Jean [facility] 06-23-2023 12:30-0400 Heart rate 81 /min Alexx Jean [facility] 06-23-2023 12:30-0400 Mean blood pressure 78 mm[Hg] Alexx Jean [facility] 06-23-2023 12:30-0400 Respiratory rate 13 /min Alexx Dolle [facility] 06-23-2023 12:30-0400 SaO2% (BldA) [Mass fraction] 100 % Alexx Jean [facility] 06-23-2023 12:30-0400 Systolic blood pressure 102 mm[Hg] Alexx Jean [facility] 06-23-2023 12:00-0400 Diastolic blood pressure 67 mm[Hg] Alexx Jean [facility] 06-23-2023 12:00-0400 Heart rate 70 /min Alexx Jean [facility] 06-23-2023 12:00-0400 Mean blood pressure 83 mm[Hg] Alexx Jean [facility] 06-23-2023 12:00-0400 SaO2% (BldA) [Mass fraction] 99 % Alexx Jean [facility] 06-23-2023 12:00-0400 Systolic blood pressure 115 mm[Hg] Alexx Dolle [facility] 06-23-2023 09:50-0400 Respiratory rate 20 /min Alexx Dolle [facility] 06-23-2023 09:23-0400 Body temperature 98.24 [degF] Alexx Pena [facility] 06-23-2023 09:23-0400 Heart rate 81 /min Alexx Pena [facility] 06-23-2023 09:23-0400 Respiratory rate 16 /min Alexx Pena [facility] 09-14-2022 10:30-0500 Body height 157.48 cm Thania Pughmond Other [facility] 09-14-2022 10:30-0500 Body mass index (BMI) [Ratio] 49.74 kg/m2 Thania Pughmond Other [facility] 09-14-2022 10:30-0500 Body temperature 97.7 [degF] Thania Pughmond Other [facility] 09-14-2022 10:30-0500 Body weight 123.38 kg Thania Joseline Other [facility] 09-14-2022 10:30-0500 Diastolic blood pressure 97 mm[Hg] Thania Joseline Other [facility] 09-14-2022 10:30-0500 Respiratory rate 18 /min Thania Joseline Other [facility] 09-14-2022 10:30-0500 SaO2% (BldA) [Mass fraction] 100 % Thania Trevizo Other [facility] 09-14-2022 10:30-0500 Systolic blood pressure 140 mm[Hg] Thania Trevizo Other [facility] 05-31-2022 16:10-0400 Body height 157.48 cm Mayra Astorga Other [facility] 05-31-2022 16:10-0400 Body mass index (BMI) [Ratio] 48.98 kg/m2 Mayra Astorga Other [facility] 05-31-2022 16:10-0400 Body temperature 97.9 [degF] Mayra Astorga Other [facility] 05-31-2022 16:10-0400 Body weight 121.47 kg Mayra Astorga Other [facility] 05-31-2022 16:10-0400 Diastolic blood pressure 84 mm[Hg] Mayra Astorga Other [facility] 05-31-2022 16:10-0400 Respiratory rate 18 /min Mayra Astorga Other [facility] 05-31-2022 16:10-0400 SaO2% (BldA) [Mass fraction] 99 % Mayra Astorga Other [facility] 05-31-2022 16:10-0400 Systolic blood pressure 129 mm[Hg] Mayra Astorga Other [facility] Other Encounters Encounter Date Encounter Type Care Provider Facility Start: 11-12-2023 End: 11-12-2023 ambulatory ZOYA PETER Not Available Start: 10-25-2023 End: 10-25-2023 Emergency department patient visit Alexx Pena Facility:[facility] Start: 10-25-2023 End: 10-25-2023 Emergency department patient visit Alexx Pena 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 Start: 10-08-2023 End: 10-08-2023 ambulatory ZOYA PETER Not Available Start: 10-01-2023 End: 10-01-2023 ambulatory Tez Angel Facility:[facility] Start: 10-01-2023 End: 10-01-2023 ambulatory MD Tez Angel Work Phone: [facility] Work Phone: Start: 10-01-2023 End: 10-01-2023 Departed Referred MD Tez Angel Work Phone: [facility] Start: 09-17-2023 End: 09-18-2023 ambulatory Glenn Gupta Facility:[facility] Start: 09-17-2023 End: 09-17-2023 Patient encounter procedure Glenn Gupta [facility] Start: 09-15-2023 End: 09-15-2023 ambulatory CHAY CASTRO Not Available Start: 08-27-2023 End: 08-27-2023 ambulatory TEZ ANGEL Not Available Start: 08-15-2023 End: 08-16-2023 ambulatory Alexx Leroyy Facility:[facility] Start: 08-15-2023 End: 08-15-2023 Patient encounter procedure Alexx Leroyy [facility] Start: 08-12-2023 End: 08-13-2023 ambulatory Alexx Leroyy Facility:[facility] Start: 08-12-2023 End: 08-12-2023 Patient encounter procedure Alexx Leroyy [facility] Start: 08-11-2023 End: 08-12-2023 ambulatory Glenn Gupta Facility:[facility] Start: 08-11-2023 End: 08-11-2023 Patient encounter procedure Glenn Gupta [facility] Start: 08-06-2023 End: 08-06-2023 ambulatory Alexx Leroyy Facility:[facility] Start: 08-06-2023 End: 08-06-2023 Admission to same day surgery center Alexx Gupta [facility] Start: 07-25-2023 End: 07-26-2023 ambulatory Alexx Leroyy Facility:[facility] Start: 07-25-2023 End: 07-25-2023 Patient encounter procedure Alexx Leroyy [facility] Start: 2023 End: 07-25-2023 ambulatory TEZ ANGEL Facility:[facility] Start: 2023 End: 2023 Patient encounter procedure TEZ ANGEL [facility] Start: 07-21-2023 End: 07-22-2023 ambulatory Alexx Gupta Facility:[facility] Start: 07-21-2023 End: 07-21-2023 Patient encounter procedure Alexx Gupta [facility] Start: 07-18-2023 ambulatory Melissa Nunez Facility :[facility] Start: 07-14-2023 End: 07-15-2023 ambulatory Melissa Nunez Facility:[facility] Start: 07-14-2023 End: 07-14-2023 Patient encounter procedure Melissa Nunez [facility] Start: 07-08-2023 End: 07-09-2023 [facility]ulatory [facility] Start: 07-08-2023 End: 07-08-2023 Patient encounter procedure Melissa Nunez [facility] Start: 07-07-2023 End: 07-08-2023 ambulatory Alexx Gupta Facility:[facility] Start: 07-07-2023 End: 07-07-2023 Patient encounter procedure Alexx Gupta [facility] Start: 06-25-2023 ambulatory [facility] Start: 06-23-2023 End: 06-23-2023 Emergency department patient visit Alexx Pena Facility:[facility] Start: 06-23-2023 End: 06-23-2023 Emergency department patient visit Alexx Jean [facility] Start: 01-29-[address] CHAY CASTRO . Facili ty: Start: 01-09-2023 End: 01-10-[address] CHAY [...] 09-14-2022 End: 09-14-2022 ambulatory Thania Trevizo Other [facility] Start: 09-14-2022 Office outpatient visit 15 minutes Thania Trevizo [facility] Start: 07-23-2022 End: [address] YONAS ANTON . Facility:[facility] Start: 07-16-[address] YONAS ANTON . Faci lity:[facility] Start: 06-04-2022 End: 06-05-[address] YONAS ANTON . Facility:[facility] Start: 05-31-2022 End: 05-31-2022 ambulatory Mayra Astorga Other [facility] Start: 05-31-2022 Office outpatient ne w 30 minutes Mayra Astorga [facility] Start: 05-02-2022 End: 05-03-[address] CHAY CASTRO . Facility:[facility] Start: 04-09-2022 End: 04-09-[address] CHAY CASTRO . Facility:[facility] Start: 08-06-2018 End: 08-07-2018 Patient encounter procedure SHANT ROMERO [facility] Start: 07-28-2018 End: 07-28-2018 Patient encounter procedure SHANT ROMERO [facility] Start: 07-28-2018 End: 07-28-2018 Patient encounter procedure LATASHA HU [facility] Start: 07-08-2018 End: 07-08-2018 Patient encounter procedure MINDY GARCIA [facility] Start: 04-20-2018 End: 04-21-2018 Patient encounter procedure LATASHA HU [facility] Start: 04-15-2018 End: 04-20-2018 Patient encounter procedure LATASHA HU [facility] Procedures Date Procedure Procedure Detail Performing Clinician Start: 10-01-2023 Hysterectomy Glenn Nyemacypilar Start: 08-06-2023 Robot assisted laparoscopic cholecystectomy Alexx Gupta Colposcopy Alexx Pena Fasciotomy of foot Alexx morrell H/O: tubal ligation Alexx meneses Laparoscopy Alexx Pena Loop electrosurgical excision procedure Alexx Pena Plan of Treatment Date Care Activity Detail Author Start: 02-25-2024 End: 02-25-2024 Patient encounter procedure 02/25/2024 9:30 AM EDT Office Visit [facility] [address] [place] [address] Tez Angel MD [address] [place] [address] [facility] Start: 11-12-2023 End: 11-12-2023 ambulatory 11/12/2023 11:20 AM EST Visit [facility] [address] [phone] Zoya Peter PA [address] [place] [address] [facility] Start: 05-09-2023 Influenza vaccination Influenza Vacc ine (#1) [facility] Immunizations Immunization Date Immunization Notes Care Provider Fa cility 12-02-2021 SARS-CoV-2 mRNA (fkhpyljbwie-gdzx-impc ose) vaccine Alexx Gupta [facility] 01-05-2021 SARS-CoV-2 (COVID-19 ) Ad26 vaccine, recombinant Alexx Pena [facility] 12-15-2020 SARS-CoV-2 (COVID-19 ) Ad26 vaccine, recombinant Alexx Pena [facility] 01-22-2002 measles, mumps and rubella virus vaccine Alexx Gupta [facility] NEGATED: Highlighted row has not occurred!07-07-2023 influenza virus vaccine, unspecified formulation Alexx Gupta [facility] Payers Date Payer Category Payer Self-pay 2022 Medicaid [id number] 2022 Medicaid [place] [id number] 2022-Present [address] [place] [address] [id number] 1989 Unknown [id number] 2.840.1.659003.3.579.2.593 1989 Unknown [id number] 2.840.1.319014.3.579.2.593 1989 Unknown [id number] 2..840.1.303859.3.579.2.593 1989 Unknown [id number] 2..840.1.565537.3.579.2.593 1989 Unknown [id number] 2..840.1.364526.3.579.2.593 1989 Unknown [id number] 2.16.840.1.296000.3.579.2.593 1989 Unknown [id number] 2.16.840.1.431066.3.579.2.593 1989 Unknown [id number] 2..840.1.859079.3.579.2.593 1989 Unknown [id number] 2.16.840.1.435146.3.579.2.593 1989 Unknown [id number] 2.16.840.1.725822.3.579.2.593 1989 Unknown [id number] 2..840.1.635229.3.579.2.593 1989 Unknown [id number] 840.1.228560.3.579.2.593 1989 Unknown [id number] 2..840.1.277464.3.579.2.727 1989 Unknown [id number] 2840.1.672412.3.579.2.727 1989 Unknown [id number] 2.840.1.077428.3.579.2.727 1989 Unknown [id number] 2840.1.761743.3.579.2.727 1989 Unknown [id number] 2.840.1.072495.3.579.2.727 1989 Unknown [id number] 216.840.1.063116.3.579.2.727 1989 Unknown [id number] 2.16.840.1.825019.3.579.2.727 1989 Unknown [id number] 2.16.840.1.937233.3.579.2.727 1989 Unknown [id number] 2.16.840.1.728626.3.579.2.727 1989 Unknown [id number] 2.16.840.1.517996.3.579.2.727 1989 Unknown [id number] 2.16.840.1.312190.3.579.2.727 1989 Unknown [id number] 2.16.840.1.935843.3.579.2.727 1989 Unknown [id number] 2.16.840.1.634522.3.579.2.727 1989 Unknown [id number] 2.16.840.1.318376.3.579.2.727 1989 Unknown [id number] 2.16.840.1.865431.3.579.2.7 1989 Unknown [id number] 2.16.840.1.130170.3.579.2.727 1989 Unknown [id number] 2.16.840.1.814556.3.579.2.9 1989 Unknown [id number] 2.16.840.1.107506.3.579.2.9 1989 Unknown [id number] 2.16.840.1.389629.3.579.2.9 1989 Unknown [id number] 2.16.840.1.152738.3.579.2.1259 1959 Unknown [id number] 2.16.840.1.333761.19 Social History Date Type Detail Facility Unknown if ever smoked [facility] Start: 08-21-2023 End: 08-27-2023 Sex Assigned At [facility] Start: 02-25-2023 Tobacco smoking status Smokele ss tobacco user within last [address] [facility] Start: 07-08-2023 End: 10-20-2023 Tobacco smoking status Never smoked tobacco (finding) [facility] Tobacco smoking status Smoker (finding) F [facility] [place] Tobacco Cigarettes [facility] Comment on above: social smoker, coupl e times per month Tobacco smoking status No Smokin g Status Entered [facility] Start: 1990 Sex Assigned At Female F [facility] Start: 08-27-2023 [facility] History of tobacco use Cigarette Smoker [facility] Start: 10-08-2023 Alcohol intake Current drinke [...] after 31- 60 minutes of waking up. [facility] Start: 02-26-2023 Alcohol Comment Caffeine: 2-3 cups/d ay [facility] Start: 02-25-2023 Gender identity Identifies as female gender (finding) [facility] Goals Date Patient Goal Desired Activity /State Personal health goal Functional Status Date Assessment Result Facility 10-25-2023 Functional Status N/A [facility] 10-20-2023 Functional Status No [facility] 08-15-2023 Functional Status N/A [facility] [place] 08-11-2023 Functional Status No [facility] 07-25-2023 Functional Status No [facility] 07-08-2023 Functional Status N/A [facility] 06-23-2023 Functional Status N/A [facility] Clinical Notes 05-31-2022 to 10-25-2023 Note Date & Type Note Facility 10-25-2023 Hospital Discharg e instructions Follow Up Care 10/25/2023 14:17:21 With:Chay CASTRO Address: [address] , [place] [address]- Business (1) When:10/28/2023 16:39:28 With:TEZ ANGEL Address: [address] [place] [address] Business (1) When:Within 3 Day(s) [facility] 10-25-2023 Evaluation + Plan note [...] Enteric Panel by PCR 07/08/[address] [facility]11-29-2023 Evaluation + Plan noteExtracted from: Title:ANES Post-operative Note - General Author: Mauricio Chang Jr., DO Date:08/06/23 Plan Transfer/Discharge: Transfer/Discharge Discharge when meets criteria ( From PACU to Ambulatory Surgery Unit, and To home ). Extracted from: Title:ANES Pre-operative Note - Adult Author:Mauricio Guerrero Jr., DO Date:08/06/23 Plan [place] [employer]hesi[employer] (ASA) physical status classification: Class IV. Anesthetic Preoperative Plan: Anesthesia General. Future Appointments Appointment Date:08/11/2023 01:30:00 PM Scheduled Provider:Glenn Gupta MD [facility] Type:Cardiology New Patient (FT) Appointment Date:08/15/2023 09:20:00 AM Scheduled Provider:Alexx Gupta MD Location:[facility] Appointment Type: Post Op 15 Future Scheduled Tests Laboratory* Fecal WBC Lactoferrin 07/08/23 * Giardia lamblia, Direct Detection EIA 07/08/23 * O & P Exam, Routine 07/08/23 * Clostridium Difficile PCR 07/08/23 * Enteric Panel by PCR 07/08/[address] [facility]11-29-2023 Hospital Discharge instructions Patient Education [...] Follow these instructions at home: Medicines Take nekq-ozk-clndhoz and prescription medicines only as told by [...] to keep your urine pale yellow. ?Take xmok-bwh-rnmnhin or prescription medicines. ?Eat foods that are [...] and water are not available, use hand marketing production specialist. ?Change your dressing as told by [...] provider. Document Revised: 02/26/2022 Document Reviewed: 02/26/2022 [employer] Patient Education 2022 [employer] Follow Up Care 07/21/2023 15:18:13 With:Alexx Gupta Address: [facility] [place] [address] [phone] Business (1) When: Unknown Comments:Appointment has already been scheduled [facility]11-29-2023 NoteHistory and Physical Update H&P [...] Brother. Hypertension: Mother, Father and Brother. TIA: Mother.[facility]11-20-2023 Note [id number] Hospital Discharge instructions Patient Education 07/21/2023 [...] ?Hypothyroidism. ?Polycystic ovarian syndrome (PCOS). ?Binge-eating disorder. ?[place] syndrome. Taking certain medicines, such as steroids, [...] food choices, such as grocery stores and [employer]. What are the signs or symptoms? The [...] and how much exercise you get. Take abri-qls-wviibbm and prescription medicines only as told by [...] provider. Document Revised: 04/02/2022 Document Reviewed: 04/02/2022 [employer] Patient Education 2022 [email or web address]. [facility] [place] 10-31-2023 Hospital Discharge instructions Patient Education 07/08/2023 [...] water added (diluted fruit juice). Eat bland, yjwn-uf-lcyjds foods in small amounts as you are able. These foods include bananas, applesauce, rice, lean meats, toast, and crackers. Avoid drinking fluids that contain a lot of sugar or caffeine, such as energy drinks, sports drinks, and soda. Avoid alcohol. Avoid spicy or fatty foods. General instructions Take xakt-tdb-gxretgu and prescription medicines only as told by your health care provider. Rest at home while you recover. Drink enough fluid to keep your urine pale yellow. Breathe slowly and deeply when you feel nauseous. Avoid smelling things that have strong odors. Wash your hands often using soap and water for at least 20 seconds. If soap and water are not available, use hand marketing production specialist. Make sure that everyone in your [...] recommendations for eating and drinking and take teoa-iko-vauvzcp and prescription medicinesonly as told by your [...] provider. Document Revised: 03/01/2022 Document Reviewed: 03/01/2022 [employer] Patient Education 2022 [email or web address]. [facility] Care 06/25/2023 15:34:03 With:Melissa Nunez CNP Address: When:1 to 2 weeks Comments:Following EGD/Colonoscopy. [facility] 10-31-2023 Evaluation + Plan note Future Scheduled Tests Laboratory* Fecal WBC Lactoferrin 07/08/23 * Giardia lamblia, Direct Detection EIA 07/08/23 * O & P Exam, Routine 07/08/23 * Clostridium Difficile PCR 07/08/23 * Enteric Panel by PCR 07/08/23 Radiology* US Gallbladder 07/08/23 [facility] 10-31-2023 Evaluation + Plan note Future Scheduled Tests Laboratory* Fecal WBC Lactoferrin 07/08/23 * Giardia lamblia, Direct Detection EIA 07/08/23 * O & P Exam, Routine 07/08/23 * Clostridium Difficile PCR 07/08/23 * Enteric Panel by PCR 07/08/[address] [facility]10-16-2023 Hospital Discharge instructions Patient Education [...] medicines. These include steroids, antibiotics, and some tgfm-oyf-bhawyln medicines, such as aspirin or ibuprofen. Having [...] Follow these instructions at home: Medicines Take rlkw-tls-jekcrwn and prescription medicines only as told by [...] provider. Document Revised: 12/29/2021 Document Reviewed: 12/29/2021 [employer] Patient Education 2022 [email or web address]. Follow Up Care 06/23/2023 09:20:57 With:Michael Patino Address: [address], [facility] [address] [phone] Business (1) When:06/26/2023 12:35:39 With:TEZ ANGEL Address: [address] [place] [address] Business (1) When:06/26/2023 12:35:[address] [facility]10-16-2023 Evaluation + Plan noteExtracted from: [...] Reflex XR Chest Single View [facility]04-02-2023 NotePROCEDURE: US PELVIS AND TRANSVAG, [...] stopped the steroids for approximately a month.[id number] Evaluation note* Encounter Date Diagnosis Assessment Notes [...] no improvement in 2 to 3 days [facility] 11-15-2022 NoteCONSULTATION CONSULTATION DATE: 07/23/2022 CHIEF [...] like to proceed. CC: Tez Angel M.D.[id number] NoteCONSULTATION PROCEDURE DATE: 07/23/2022 PREOPERATIVE DIAGNOSIS: Scar [...] will be followed up in the office.[facility] 06-27-2022 History general Narrative - Reported* Type Description Date Medical History ANXIETY AND DEPRESSION Medical History GERD Medical History RIGHT FOOT PAIN Surgical History LEP PROCEDURE 2018 Surgical History LAPROSCOPY PROCEDURE 2018 Surgical History MULTIPLE SURGERIES 06/2019 [facility] 09-27-2022 NoteCONSULTATION CONSULTATION DATE: 06/04/2022 CHIEF [...] in the office subsequent to authorization. [id number] Evaluation note* Encounter Date Diagnosis Assessment Notes [...] understanding and is agreeable to treatment plan [facility] Evaluation + Plan note Future Appointments Appointment Date:07/08/2023 02:00:00 PM Scheduled Provider:Melissa Nunez CNP Location:[facility] Appointment Type:BADH Follow Up [facility] Evaluation + Plan note Future Appointments Appointment Date:07/21/2023 02:40:00 PM Scheduled Provider:Alexx Gupta MD Location:[facility] Appointment Type:GS New 30 Future Scheduled Tests Laboratory* Fecal WBC Lactoferrin 07/08/23 * Giardia lamblia, Direct Detection EIA 07/08/23 * O & P Exam, Routine 07/08/23 * Clostridium Difficile PCR 07/08/23 * Enteric Panel by PCR 07/08/[address] [facility] Future Appointments Appointment Date:2023 07:00:00 AM Scheduled Provider: [facility] App[facility] Type:CT Sinus/Orbits/Maxillofacial (FT) Appointment Date:07/25/2023 09:30:00 AM Scheduled Provider: Location:[facility] Appointment Type:Surgical PAT FT Appointment Date:08/06/2023 01:00:00 PM Scheduled Provider: Location:[facility] Appointment Type:Surgery FT Appointment Date:08/11/2023 01:30:00 PM Scheduled Provider:Glenn Gupta MD [facility] Type:Cardiology New Patient (FT) Appointment Date:08/15/2023 09:20:00 AM Scheduled Provider:Alexx Gupta MD Location:[facility] Appointment Type: Post Op 15 Future Scheduled Tests Laboratory* Fecal WBC Lactoferrin 07/08/23 * Giardia lamblia, Direct Detection EIA 07/08/23 * O & P Exam, Routine 07/08/23 * Clostridium Difficile PCR 07/08/23 * Enteric Panel by PCR 07/08/23 Radiology* CT Maxillofacial w/o Contrast 07/24/23 [facility] Evaluation + Plan note Future Appointments Appointment Date:07/25/2023 09:30:00 AM Scheduled Provider: Location:[facility] Appointment Type:Surgical PAT FT Appointment Date:08/06/2023 01:00:00 PM Scheduled Provider: Location:[facility] Appointment Type:Surgery FT Appointment Date:08/11/2023 01:30:00 PM Scheduled Provider:Glenn Gupta MD [facility] Type:Cardiology New Patient (FT) Appointment Date:08/15/2023 09:20:00 AM Scheduled Provider:Alexx Gupta MD Location:[facility] Appointment Type:GS Post Op 15 Future Scheduled Tests Laboratory* Fecal WBC Lactoferrin 07/08/23 * Giardia lamblia, Direct Detection EIA 07/08/23 * O & P Exam, Routine 07/08/23 * Clostridium Difficile PCR 07/08/23 * Enteric [facility] by [facility]08[facility] [facility] Future [facility]ments Appointment Date:08/06/2023 01:00:00 PM Scheduled Provider: Location:[facility] Appointment Type:Surgery FT Appointment Date:08/11/2023 01:30:00 PM Scheduled Provider:[facility] New Patient (FT) Appointment Date:08/15/2023 09:20:00 AM Scheduled Provider:Alexx Gupta MD Location:[facility] Appointment Type:GS Post Op 15 Future Scheduled Tests Laboratory* Fecal WBC Lactoferrin 07/08/23 * Giardia lamblia, Direct Detection EIA 07/08/23 * O & P Exam, Routine 07/08/23 * Clostridium Difficile PCR 07/08/23 * Enteric Panel by PCR 07/08/[address] [facility] [address] Future Appointments Appointment Date:08/15/2023 09:20:00 AM Scheduled Provider:Alexx Gupta MD Location:[facility] Appointment Type:GS Post Op 15 Appointment Date:10/20/2023 03:45:00 PM Scheduled Provider:Glenn Gupta MD [facility] Type:Cardiology Follow Up (FT) Future Scheduled Tests Laboratory* Fecal WBC Lactoferrin 07/08/23 * Giardia lamblia, Direct Detection EIA 07/08/23 * O & P Exam, Routine 07/08/23 * Clostridium Difficile PCR 07/08/23 * Enteric Panel by PCR 07/08/23 Radiology* EC Stress Echo Complete w/ Contrast 08/11/[address] [facility] [address] Future Appointments Appointment Date:08/15/2023 09:20:00 AM Scheduled Provider:Alexx Gupta MD Location:[facility] Appointment Type:[facility] 15 Appointment Date:10/20/2023 03:45:00 PM Scheduled Provider:Glenn Gupta MD [facility]:Cardiology Follow Up (FT) Future Scheduled Tests Laboratory* Fecal WBC Lactoferrin 07/08/23 * Giardia lamblia, Direct Detection EIA 07/08/23 * O & P Exam, Routine 07/08/23 * Clostridium Difficile PCR 07/08/23 * Enteric Panel by PCR 07/08/23 Radiology* EC Stress Echo Complete w/ Contrast 08/11/23 [facility] Evaluation + Plan note Future Appointments Appointment Date:10/20/2023 03:45:00 PM Scheduled Provider:Glenn Gupta MD [facility]:Cardiology Follow Up (FT) Future Scheduled Tests Laboratory* Fecal WBC Lactoferrin 07/08/23 * Giardia lamblia, Direct Detection EIA 07/08/23 * O & P Exam, Routine 07/08/23 * Clostridium Difficile PCR 07/08/23 * Enteric Panel by PCR 07/08/23 Radiology* EC Stress Echo Complete w/ Contrast 08/11/23 [facility] Evaluation + Plan note Future Appointments Appointment Date:10/20/2023 03:45:00 PM Scheduled Provider:Glenn Gupta MD [facility]Cardiology Follow Up (FT) Future Scheduled Tests Laboratory* Fecal WBC Lactoferrin 07/08/23 * Giardia lamblia, Direct Detection EIA 07/08/23 * O & P Exam, Routine 07/08/23 * Clostridium Difficile PCR 07/08/23 * Enteric Panel by PCR 07/08/[address] [facility] [address] assessment information available [facility] Work Phone: Evaluation note* Diagnosis Mild recurrent [...] PROCEDURE 2018 Surgical History MULTIPLE SURGERIES 06/2019 [facility] course Narrative No data available for this section [facility] No data available for this section [facility] General Surgery [place] Progress note No data available for this section [facility] Summary Purpose Family History No [...] Family History Records FoundNo Family History Records FoundNo Family History Records Found Advance Directives No Advanced Directives Records FoundNo Advanced Directives Records FoundNo Advanced Directives Records FoundNo Advanced Directives Records FoundNo Advanced Directives Records Found Additional Source Comments INFORMATION SOURCE (unrecogn ized section and content) DATE CREATED AUTHOR 08/17/2018 [facility] DATE CREATED AUTHOR AUTHOR'S ORGANIZ ATION 01/16/2023 [facility] DATE CREATED AUTHOR AUTHOR'S ORGANIZ ATION 10/27/2023 [facility] DATE CREATED AUTHOR AUTHOR'S ORGANIZ ATION 10/28/2023 [facility] DATE CREATED AUTHOR AUTHOR'S ORGANIZ ATION 11/13/2023 [facility] EPIC REASON FOR VISIT [...] Cm cameron 2023 End: October 01, 2023 [employer]aking In[employer] Relationship Specialty Start Date End Date Tez [...] BE BASED ON THE PRIMARY CLINICAL RECORDS. [employer] [facility]. provides no warranty or guarantee of the accuracy or completeness of information in this document.
[2023-11-24 07:29] VITALS: BP 136/92; PULSE 110; RESP 16; TEMP 36.5; O2SAT 97
[2023-11-24 08:18] VITALS: BP 134/64; PULSE 85; RESP 18; O2SAT 98
[2023-11-24 08:22] VITALS: BP 137/63; PULSE 82; RESP 18; O2SAT 96
--- NOTE | 2023-11-24 08:22 | W.PM.PROCNOT ---
Date of procedure: 11/24/23 Pre-op diagnosis: Complex regional pain syndrome Post-op diagnosis: same as pre-op Procedure: Procedure: Right lumbar sympathetic nerve block Medications: Bupivacaine 0.25% 4cc, normal saline 0.9% 4cc, kenalog 80mg The patient was seen and examined in the preoperative holding area.? Informed consent was obtained and placed on the chart.? Patient was brought to the medical procedure unit and placed in the prone position where a timeout was completed verifying the correct patient, procedure site, position, and planned special equipment using sterile aseptic technique.? Under direct fluoroscopic visualization a 25-gauge Quincke tipped spinal needle was advanced to the right anterolateral aspect of the L3 vertebral body where Omnipaque dye was injected to show adequate spread.? There was no evidence of vascular or neurologic uptake.? The above-mentioned injectate was then placed in five 2 mL aliquots preceded by negative aspiration. The needle was removed and the surgery site was covered. The same procedure, with the same steps, was then completed on the opposite side. Patient was taken to the postprocedural recovery area and monitored for an appropriate length of time before found suitable for discharge in the accompaniment of a responsible adult. Anesthesia: Local Surgeon: Heather Antunez Pathology: none sent Condition: stable Disposition: no change
[2023-11-24] MEDS: IOHEXOL 240 MG/ML - 10 ML VIAL 48 MG INJ (08:24)
[2023-11-24] MEDS: 0.9 % SODIUM CHLORIDE 10 ML VIAL 5 ML INJ (08:25)
[2023-11-24] MEDS: TRIAMCINOLONE ACETONIDE 40 MG/ML VIAL INJ (08:26)
[2023-11-24] MEDS: LIDOCAINE HCL 2% PF 100 MG/5 ML VIAL 3 ML INJ (08:26)
[2023-11-24] MEDS: BUPIVACAINE HCL 0.25% PF 25 MG/10 ML VIAL 4 ML INJ (08:26)
== END 2023-11-24 08:27 | disposition home or self-care (01) ==
LOC: SURGOUT 07:12
PROVIDERS: PCP Family Medicine; Visit Provider Anesthesiology
DX: G57.71 Causalgia of right lower limb (principal)
CPT/HCPCS: 64520; 77002; 77003; Q9966

== ENCOUNTER 2023-12-03 09:32 | Outpatient (OUT) | payer MEDICAID, SELFPAY ==
--- OUTSIDE RECORDS SUMMARY | 2023-12-03 09:41 | XMS_ITS | CCD ---
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 Name Role Phone ADAMOWICZ, LATASHA J Unavailable Unavailable MATTHEWRONALDY CARA Unavailable Unavailable ADAMOWICZ, LATASHA J Unavailable Unavailable [...] NADERER, DR TEZ Whaley Primary Care Unavailable MATTHEW ., DR HAYS Attending Unavailable MATTHEW ., DR HAYS Admitting Unavailable NADERER, DR TEZ Whaley Primary Care Unavailable MATTHEW ., DR HAYS Consulting Unavailable MATTHEW ., DR HAYS Attending Unavailable MATTHEW ., DR HAYS Admitting Unavailable NADERER, DR TEZ Whaley Primary Care Unavailable NADERER, DR TEZ Whaley Primary Care Unavailable NADERER, DR TEZ Whaley Consulting Unavailable NADERER, DR TEZ Whaley Attending Unavailable NADERER, DR TEZ Whaley Admitting Unavailable MATTHEW ., DR HAYS Attending Unavailable MATTHEW ., DR HAYS Admitting Unavailable MATTHEW ., DR HAYS Consulting Unavailable NADEREJurgen, DR TEZ Whaley Primary Care Unavailable MATTHEW ., DR HAYS Attending Unavailable MATTHEW ., DR HAYS Admitting Unavailable NADERER, DR TEZ Whaley Primary Care Unavailable MATTHEW ., DR HAYS Consulting Unavailable ZIEBER, DR BING Seaman Consulting Unavailable MATTHEW ., DR HAYS Attending Unavailable MATTHEW ., DR HAYS Admitting Unavailable NADERER, DR TEZ Whaley Primary Care Unavailable MATTHEW ., DR HAYS Consulting Unavailable MEGAN HINOJOSA Consulting Unavailable MATTHEW ., DR HAYS Attending Unavailable MATTHEW ., DR HAYS Admitting Unavailable NADERER, DR TEZ Whaley Primary Care Unavailable MATTHEW ., DR HAYS Consulting Unavailable MATTHEW ., DR HAYS Consulting Unavailable MATTHEW ., DR HAYS Attending Unavailable MATTHEW ., DR HAYS Admitting Unavailable NADERER, DR [...] Tucker Attending Unavailable NEIL LOPEZ Consulting Unavailable TEZ ANGEL Primary Care Physician MD Tez Angel Primary Care Provider [phone] Chay Castro Attending Provider [phone] Tez Angel MD Primary Care Provider [phone] Melissa Nunez Attending Unavailable MouranyAlexx Attending Unavailable MouranAlexx tripathi Attending Unavailable Alexx Gupta Attending Unavailable TEZ ANGEL Referring Unavailable MouranAlexx tripathi Attending Unavailable MouranyAlexx Attending Unavailable Mayra, Melissa A Referring Unavailable Mayra, Melissa A Attending Unavailable Mayra, Melissa A Admitting Unavailable TEZ ANGEL Referring Unavailable TEZ ANGEL Attending Unavailable TEZ ANGEL Admitting Unavailable Jean, Alexx Attending Unavailable Jean, Alexx Attending Unavailable MouranAlexx tripathi Attending Unavailable MouranAlexx tripathi Admitting Unavailable MoAlexx vasquez Referring Unavailable Glenn Gupta Attending Unavaila Glenn Izaguirre Admitting Unavaila ble Mayra, Melissa A Referring Unavailable Glenn Gupta Admitting Unavaila ble Christkala, Glenn D. Attending Chataa mayank NONE, XXXX Referring Unavailable Alexx Gupta Referring Unavailable Alexx Gupta Attending Alexx Verma Admitting Unavailable Glenn Gupta Referring Unavaila Glenn Izaguirre Attending Glenn Carrington Consulting Chataa Glenn Izaguirre Admitting Unavaila Glenn Izaguirre Consulting [place]ata[place] Glenn Izaguirre Consulting Unavaila ble Tez Angel Primary Care Unavailable MatthewRonaldy Attending Unavailable Matthew, Chay Admitting Unavailable CHAY CASTRO Attending Unavailable ZOYA PETER Attending Unavailable TEZ ANGEL Attending Unavailable ZOYA PETER Attending Unavailable Tulio SOTELO, Heather Almeida Attending Unavailable Allergies Allergy Classification Reported Allergen(s) Allergy Type Date of Onset Reaction(s) Facility (11 sources) Iodine; Translations: [IODINE] Drug Allergy 8 Hives, Itching, Rash, Unknown [facility] Repository (18 sources) Acetaminophen / HYDROcodone; Translations: [Vicodin] Drug Allergy Unknown (qualifier value), Vomiting (disorder) [facility] Repository (8 sources) iodinated radiocontrast dyes; Translations: [iodinated radiocontrast agents] Drug allergy Unknown (qualifier value) [facility] [place] (9 sources) steri strips; Translations: [steri strips] Allergy to substance Itching (finding), Eruption of skin (disorder) [facility] (1 source) Acetaminophen / HYDROcodone Drug Allergy 3 GI intolerance [facility] Work Phone: (1 source) Wound Dressing Adhesive Propensity to adverse reactions 3 Hives, Itching, Rash [facility] (1 source) Acetaminophen Drug Allergy 3 [facility] Repository (1 source) HYDROcodone Drug Allergy 3 [facility] Repository Medications Current Medications Medication Drug Class(es) Dates Sig (Normalized) Sig (Original) acetaminophen 325 mg / oxyCODONE hydrochloride 5 mg oral tablet (6 sources) Opioid Agonist Start: 08-12-2023 Percocet 5 mg-325 mg oral tablet 1 tab(s), Oral, q6hr, 12 tab(s), Refill(s) 0, [facility], 157, cm, 08/11/23 13:28:00 EST, Height/Length Dosing, 132.9, kg, 08/11/23 13:28:00 EST, Weight Dosing Start Date: 08/12/23 Status: Ordered Start: 08-06-2023 End: 08-08-2023 Percocet 5 mg-325 mg oral ta blet 1 tab(s), Oral, q6hr as needed for pain, 10 tab(s), Refill(s) 0, [facility], 157.8, cm, 07/26/23 10:03:00 EST, [...] MCG (1999) tablet take 1 capsule by [facility] every twenty-four hours Vitamin D3 50 MCG (1999) 1 capsule Orally Once a day Active chromium picolinate 1 mg oral tablet (4 sources) Start: 07-08-2023 chromium picol inate 1000 mcg oral tablet Refills(s) 0 Start Date: 07/08/23 Status: Ordered docusate sodium 50 mg / sennosides, skilled nursing 8.6 mg oral tablet (2 sources) take [...] Daily, # 90 tab(s), Refills(s) 1, Pharmacy: [facility], 152.4, cm, 08/10/21 14:17:00 EST, [...] Start: 07-07-2023 take 9 tablets by [facility] every two hours SUMAtriptan 25 mg Tab [...] 07/07/23 Status: Ordered take [facility]-four hours hydrOXYzine HCl 25 MG 1 tablet at bedtim e as needed Orally Once a day Active polyethylene glycol 3350 852119 mg / potassium chloride 1480 mg / sodium bicarbonate 5720 mg / sodium chloride 34370 mg powder for oral solution (12 sources) Osmotic Laxative Start: 07-08-2023 NuLYTELY Quach oral powder for reconstitution See Instructions, 1 EA, Refill(s) 0, Prior to colonoscopy., [facility], 157.5, cm, 07/08/23 14:03:00 EDT, [...] ABO/Rhon 10-25-2023 ABO/Rh Negative Invalid Interpretation Code [facility] Comment on above: Performed By: #### 2 815917, [id number], 78198741, 93940754 ####[facility] [address] [place] [address] ABO/Rh History Checkon 10-25 ABO/Rh History Check Type verified by second s Normal [facility] Comment on above: Performed By: #### 2 872486, 54089734, 00470231, 93989677 ####[facility] [address] [place] [address] ABO/Rh Retypeon 10-25-2023 ABO/Rh Retype Interp Negative Invalid Interpretation Code [facility] Comment on above: Performed By: #### 1 5692816, 0382895, 3992487, 52351612, 32965983 ####[address] [place] [address] ABSCon 10-25-2023 ABSC Gel Interp Negative Normal [facility] Comment on above: Performed By: #### 2 216842, 35264756, 40600323, 55250083 ####[address] [address] BLOOD BANKOrdered By: Bridget Baron on 10-25-2023 ABO/Rh Interp Negative Invalid Interpretation Code [facility] BB Subsection ABSC Gel Interp Negative (10/25/23 2:57 PM) Normal [facility] BB Subsection ABO/Rh Retype Interp Negative Invalid Interpretation Code [facility] BB Subsection Blood Bank ID#on 10-25-2023 BBID# [id number] Invalid Interpretation Code [facility] Comment on above: Performed By: #### 2 882949, 61768826, 25676269, 58303438 ####[address] [address] CBC w/ Auto Diffon Basophil Absolute 0.0 E9/L Normal 0.0-0.2 [facility] Comment on above: Performed By: #### 1 7302186, 7106184, 0585049, 82754936, 18201857 ####[address] [place] [address] Basophils/100 WBC (Bld) 0.5 % Normal 0.0-2.0 [facility] Comment on above: Performed By: #### 1 3604721, 2636590, 9279020, 00592601, 82491372 ####[facility] [address] [place] [address] Eos Absolute 0.1 E9/L Normal 0.0-0.5 [facility] Comment on above: Performed By: #### 1 3704325, 5242878, 6794041, 66774524, 43081880 ####[facility] [address] [place] [address] Eosinophils/100 WBC (Bld) 1.6 % Normal 0.0-8.0 [facility] Comment on above: Performed By: #### 1 6053142, 5877350, 8057900, 55395248, 81667602 ####[address] [place] [address] Erythrocyte distribution width (RBC) [Ratio] 13.1 % Normal 10.9-14.2 [facility] Comment on above: Performed By: #### 1 8469448, 9582336, 9670144, 78687547, 10015501 ####[address] [address] Hematocrit (Bld) [Volume fraction] 38.0 % Normal 34.0-46.0 [facility] Comment on above: Performed By: #### 1 1101646, 6478859, 3758913, 65943052, 31944166 ####[address] [place] [address] Hemoglobin (Bld) [Mass/Vol] 12.9 g/dL Normal 12.0-16.0 [facility] Comment on above: Performed By: #### 1 9965058, 8620428, 2644510, 24038119, 28909667 ####[facility] [address] [place] [address] Lymph Absolute 1.4 E9/L Normal 1.0-4.0 [facility] Comment on above: Performed By: #### 1 9825437, 4750175, 6291557, 52229214, 62416042 ####[address] [place] [address] Lymphocytes/100 WBC (Bld) 28.4 % Normal 14.0-50.0 [facility] Comment on above: Performed By: #### 1 4240077, 3495805, 0360927, 91757057, 68101291 ####[address] [address] MCH (RBC) [Entitic mass] 31.7 pg Normal 27.0-34.0 [facility] Comment on above: Performed By: #### 1 8415538, 0579666, 2133796, 21163987, 99795735 ####[address] [address] MCHC (RBC) [Mass/Vol] 33.7 g/dL Normal 31.4-36.0 [facility] Comment on above: Performed By: #### 1 9319765, 8629940, 9745308, 33075274, 59167122 ####[address] [address] MCV (RBC) [Entitic vol] 94.0 fL Normal 80.0-100.0 [facility] Comment on above: Performed By: #### 1 4328055, 0826849, 5201345, 21800030, 47939944 ####[address] [address] Crosby Absolute 0.4 E9/L Normal 0.2-1.0 [facility] Comment on above: Performed By: #### 1 0373981, 1901341, 7926980, 68341769, 45001567 ####[address] [address] Monocytes/100 WBC (Bld) 8.0 % Normal 4.0-14.0 [facility] Comment on above: Performed By: #### 1 0310617, 7049740, 8302231, 77424258, 76659078 ####[address] [address] Neutro Absolute 3.1 E9/L Normal 2.0-7.5 [facility] Comment on above: Performed By: #### 1 7681887, 4477565, 5652456, 37238613, 06259843 ####[facility] [address] [place] [address] Neutro Auto 61.5 % Normal 36.0-75.0 [facility] Comment on above: Performed By: #### 1 5022899, 3190422, 7471110, 87533561, 14613926 ####[address] [place] [address] Platelet 221.0 E9/L Normal 150.0-500. 0 [facility] Comment on above: Performed By: #### 1 1360407, 9682615, 4828145, 32327765, 20164136 ####[address] [address] Platelet mean volume (Bld) [Entitic vol] 8.9 fL Normal 6.4-10.8 [facility] Comment on above: Performed By: #### 1 1749433, 0837135, 8913201, 54048614, 62927893 ####[address] [place] [address] RBC 4.1 E12/L Low 4.3-5.9 [facility] Comment on above: Performed By: #### 1 1888894, 4805659, 3207684, 13798506, 29733173 ####[address] [place] [address] WBC 5.0 E9/L Normal 4.0-11.0 [facility] Comment on above: Performed By: #### 1 7250646, 6447079, 7455627, 63742300, 57755069 ####[address] [place] [address] CHEMISTRYOrdered By: SYSTEM SYSTEM on 10-25-2023 Albumin [...] 10-25-2023 Albumin [Mass/Vol] 4.1 g/dL Normal 3.3-5.0 [facility] Comment on above: Performed By: #### 1 9149081, 3446227, 6038880, 20868454, 02816798 ####[facility] [address] Albumin/Globulin [Mass ratio] 1.5 {ratio} Normal 1.1-2.2 [facility] Comment on above: Performed By: #### 1 6360955, 0224499, 3787899, 06366406, 95776111 ####[facility] [address] [place] [address] Alk Phos 96 Int._Unit/L Normal 21-98 [facility] Comment on above: Performed By: #### 1 7241929, 9177277, 6786206, 70034190, 82252639 ####[facility] [address] [place] [address] ALT 12 Int._Unit/L Normal 6-46 [facility] Comment on above: Performed By: #### 1 8355289, 6513518, 1075621, 69573802, 50403480 ####[address] [place] [address] Anion gap [Moles/Vol] 10 mmol/L Normal 6-16 [facility] Comment on above: Performed By: #### 1 7273849, 6938914, 9008774, 25840746, 42415868 ####[address] [place] [address] AST 13 Int._Unit/L Normal 5-43 [facility] Comment on above: Performed By: #### 1 1614902, 0771758, 5863764, 21048424, 61901477 ####[facility] [address] [place] [address] Bili Total 0.3 mg/dL Normal 0.0-1.1 [facility] Comment on above: Performed By: #### 1 3284832, 7966447, 6169755, 00833725, 78161772 ####[facility] [address] [place] [address] BUN/Creat Ratio 12 No Units Normal 10-20 [facility] Comment on above: Performed By: #### 1 5296627, 5433067, 9958468, 69858827, 40151603 ####[facility] [address] [place] [address] Calcium [Mass/Vol] 9.3 mg/dL Normal 8.9-11.1 [facility] Comment on above: Performed By: #### 1 8158633, 8184319, 7192962, 20022855, 87753029 ####[facility] [address] [place] [address] Chloride [Moles/Vol] 108 mmol/L Normal 101-111 [facility] Comment on above: Performed By: #### 1 0682235, 9267466, 1233261, 28278898, 13632466 ####[address] [place] [address] CO2 [Moles/Vol] 23 mmol/L Normal 21-31 [facility] Comment on above: Performed By: #### 1 5524380, 7597149, 2798368, 71529243, 90382432 ####[facility] [address] [place] [address] Creatinine [Mass/Vol] 1.1 mg/dL Normal 0.5-1.3 [facility] Comment on above: Performed By: #### 1 9188172, 5888356, 1278498, 17951199, 15841688 ####[facility] [address] [place] [address] Globulin (S) [Mass/Vol] 2.8 g/dL Normal 1.4-4.0 [facility] Comment on above: Performed By: #### 1 1336091, 5870663, 4405767, 23573094, 52170574 ####[facility] [address] [place] [address] Glucose [Mass/Vol] 106 mg/dL Normal 55-199 [facility] Comment on above: Performed By: #### 1 4538896, 8272395, 4207255, 26974214, 41239143 ####[facility] [address] [place] [address] Potassium [Moles/Vol] 3.8 mmol/L Normal 3.5-5.3 [facility] Comment on above: Performed By: #### 1 1025405, 2192547, 8537107, 37023445, 33081694 ####[facility] [address] [place] [address] Protein [Mass/Vol] 6.9 g/dL Normal 6.0-7.8 [facility] Comment on above: Performed By: #### 1 0749050, 0164845, 6876516, 05140455, 72667882 ####[facility] [address] [place] [address] Sodium [Moles/Vol] 137 mmol/L Normal 135-145 [facility] Comment on above: Performed By: #### 1 1855328, 3025147, 1508766, 64796028, 93159174 ####[facility] [address] [place] [address] Urea nitrogen [Mass/Vol] 13 mg/dL Normal 5-21 [facility] Comment on above: Performed By: #### 1 8691533, 9093963, 2167335, 73138390, 47958528 ####[facility] [address] [place] [address] COAGULATIONOrdered By: Pool Sykes on 10-25-2023 aPTT Coag (PPP) [Time] 31.3 s Normal 25.1 - 36.5 second(s) [facility] Auto Coag Comment on above: Interpretive Data: [...] a study by joselyn De Los Santos al. prepared from 1437 samples obtained at 7 different centers using the same coagulation reagent and instrumentation as [facility]. Currently there are no coagulation studies available worldwide for children to 14 days, and no normal ranges. Heparin therapeutic range (represented by Anti-Factor Xa activity of 0.2 - 0.4 U/mL) corresponds to PTT of 56.6 - 109.0 sec. INR Coag (PPP) [Relative time] 1.11 {INR} Invalid Interpretation Code [facility] Auto Coag Comment on above: Interpretive Data: I NR results are specifically intended to assess patients stabilized on long-term Anticoagulation therapy suggested INR s Less Intensive Anticoagulation 2.0 3.0 Conventional Range 3.0 4.5 PT Coag (PPP) [Time] 12.4 s Normal 9.4 - 1 2.5 second(s) [facility] Comment on above: Interpretive Data: [...] a study by joselyn De Los Santos al. prepared from 1437 samples obtained at 7 different centers using the same coagulation reagent and instrumentation as [facility]. Currently there are no coagulation studies available worldwide for children to 14 days, and no normal ranges. Consent for Treatmenton 10-09 Consent for Treatment [id number]#1.00TIFF Normal [facility] Discharge Instructionson Discharge Instructions [id number]#1.00TIFF Normal [facility] ED Clinical Summaryon 2023 ED Clinical Summary (Inserted Image. Zenaida ble to display) [address] [address] ED Clinical Summary Person Information Name: AZUL ONTIVEROS [facility] Age: 33 Years : 1990 Sex: Female Language: Syrian PCP: TEZ ANGEL MD Marital Status: Single [...] 16:52:18 10/25/2023 16:52:18 10/25/2023 16:52:18 ADDRESS: [address] [place] [id number] PHYS DOC NOTES: MEDICAL INFORMATION: Prescriptions Given: [...] Follow up: With: Address: When: Chay CASTRO [facility], [address] , [place] [address] Business (1) In 3 days 10/28/2023 With: Address: When: TEZ ANGEL [address] [place], [place] [id number] Business (1) In 3 days DIAGNOSIS: Headache; Vaginal bleeding Normal [facility] ED Note-Physicianon 10-25-19 ED Note-Physician Basic Information [...] relief of symptoms. She talk to the COPY ROOM TECHNICIAN physician was instructed to come to the [...] prescription medications Follow-up With When Contact Information Chya CASTRO In 3 days 10/28/[address] , [place] [address]- Business (1) Additional Instructions: TEZ ANGEL In [address] [place] [address] Business (1) Additional Instructions: Problem List/Past Medical [...] nalbuphine 10 (more content not included)... Normal [facility] Comment on above: Result Comment: Elec tronically Signed By: Alexx Pena DO\.br\Date and Time Signed: 10/25/23 16:40 EST ED Patient Education Noteon 10-25-2023 ED Patient Education Note Normal [facility] ED Patient Summaryon 024 ED Patient Summary (Inserted Image. Zenaida ble to display) [address] [address] Patient Discharge Instructions Person Information Name: JASON ONTIVEROSA Jennifer Age: 33 Years Arrival Date: 10/25/2023 14:15:46 Discharge Diagnosis: Headache; Vaginal bleeding Primary Care Physician: TEZ ANGEL MD Provider Information Primary Provider: Alexx Pena DO Advanced Document Design Specialist:None The exam and treatment you received in the Emergency Department were for an urgent problem and are not intended as complete care. It is important that you follow up with a doctor, nurse practitioner, or physician?s advertising assistant manager for ongoing care. If your symptoms become worse or you do not improve as expected and you are unable to reach your usual health care provider, you should return to the Emergency Department. We are available 24 hours a day. AZUL ONTIVEROS has been given the following list of patient education materials, prescriptions and follow-up instructions: Follow-up Instructions: With: Address: When: [facility] [address] [place] [address] , [place] [place] [address] [employer] (1) In 3 days 10/28/2023 With: Address: When: TEZ HANKINSJurgen [address] [place], [place] [id number] [employer] (1) In 3 days In the event that this physician does not participate in your insurance network, please consult with your insurance company to find a nearby participating provider. Patient Education Materials: A MESSAGE TO ALL PATIENTS REGARDING OPIOIDS PRESCRIPTION OPIOIDS: WHAT YOU NEED TO KNOW Prescription opioids can be used to help relieve zpxlwfzs-ca-qicqzh pain and are often prescribed following a [...] tell y (more content not included)... Normal [facility] HEMATOLOGYOrdered By: Bridget Baron on 10-25-2023 Basophil [...] Normal 80.0 - 100.0 fL Remisol Heme Crosby Absolute 0.4 E9/L Normal 0.2 - 1.0 [...] Coag (PPP) [Time] 31.3 second(s) Normal 25.1-36.5 [facility] Comment on above: Result Comment: Para meter [...] a study by joselyn De Los Santos al. prepared from 1437 samples obtained at 7 different centers using the same coagulation reagent and instrumentation as [facility]. Currently there are no coagulation studies available worldwide for children to 14 days, and no normal ranges. Heparin therapeutic range (represented by Anti-Factor Xa activity of 0.2 - 0.4 U/mL) corresponds to PTT of 56.6 - 109.0 sec. Performed By: #### 1 0390999, 1558956, 1317079, 27665698, 40242292 ####[facility] [address] [place] [address] INR Coag (PPP) [Relative time] 1.11 {INR} Invalid Interpretation Code [facility] Comment on above: Result Comment: INR results are specifically intended to assess patients stabilized on long-term Anticoagulation therapy suggested INR?s ?Less Intensive Anticoagulation? 2.0 ? 3.0 Conventional Range 3.0 ? 4.5 Performed By: #### 1 3647426, 0326826, 0173436, 00359903, 75259374 ####[facility] [address] [place] [address] PT Coag (PPP) [Time] 12.4 second(s) Normal 9.4-12.5 [facility] Comment on above: Result Comment: 15 d [...] the same coagulation reagent and instrumentation as [facility]. Currently there are no coagulation studies available worldwide for children to 14 days, and no normal ranges. Performed By: #### 1 1158059, 2204370, 6969962, 41565640, 29694300 ####[facility] [address] [place] [address] eGFRon 10-25-2023 eGFR 68 mL/min/1.73 m2 Normal >=59 [facility] Comment on above: Order Comment: Order added by Discern Expert. Performed By: #### 1 6864171, 6061267, 2211035, 72973765, 80805005 ####[facility] [address] [place] [id number] Heart and Vascular Office/Cl inic Noteon 10-21-2023 [...] with voice recognition artificial intelligence software, specifically [employer], [employer] and or [employer]. Substitutions may have occurred due to the inherent limitations of voice recognition and artificial intelligence software. ATTESTATION: Documentation services were performed after the patient or guardian consented to allow [employer] to record this visit. JOANN it technical specialist and provider reviewed before signing. JOANN: [...] 0.5 mg Tab, (more content not included)... [facility] Comment on above: Result Comment: Elec tronically Signed By: Candy SOTELO, Glenn Holbrook\.br\Date and Time Signed: 10/21/23 09:36 EST\.br\Electronically Co-Signed By: Talya Camargo\.br\Date and Time Co-Signed: 10/20/23 17:42 EST Consent for Treatmenton 10-09 Consent for Treatment [id number] [facility] Physician Orderon 10-20-2023 Physician Order [id number]#1.00TIFF [facility] [facility] 2023 Stress EKG Tracings [id number]#1.00TIFF [facility] David 10-01-2023 L Specimen: [id number] Received: 10/02/23 Status: KARI Monroy Num: [id number] Spec Type: Surgical Subm Dr: Chay Castro Tissues: A Uterus w/ or w/o tubes ovaries except neoplastic or prolap (UTERUS) Procedures: , Gross/Micro L5 Age/ Patient Sex Location Account Attending Physician Azul Huertas 33/F LABELL [id number] Chay Castro SPEC NUM: [id number] RECD: 10/02/23 STATUS: KARI MONROY NUM: [id number] GAURI: 10/01/[address]: Chay Castro ENTERED: 10/02/23 [facility] DR: Kaylen,Lab SPEC TYPE: Surgical DEPT: [...] prominent trabeculation and no well-circumscribed nodules identified. Arboriculture Teacher sections are submitted in 4 cassettes as follows: A1 - Posterior cul-de-sac serosa with dull red-brown serosal focus A2 - Anterior and posterior cervix A3 - Anterior endomyometrium A4 - Posterior endomyometrium Specimen: [id number] Received: 10/02/23 Status: KARI Sally Num: [id number] Spec Type: Surgical Subm Dr: Chay Castro Tissues: A Uterus w/ or w/o tubes ovaries except neoplastic or prolap (UTERUS) Procedures: , Gross/Micro L5 Patient: KiyaJasona [id number] (Continued) Specimen: [id number] Received: 10/02/23 (Continued) Signed (signature on file) Alexi Mclaughlin MD 10/04/23 1139 Specimen: [id number] Received: 10/02/23 Status: KARI Monroy Num: [id number] Spec Type: Surgical Subm Dr: Chay Castro Tissues: A Uterus w/ or w/o tubes ovaries except neoplastic or prolap (UTERUS) Procedures: , Gross/Micro L5 Patient: Azul Huertas [id number] (Continued) Specimen: [id number] Received: 10/02/23 (Continued) CPT Codes 67473 Specimen: [id number] Received: 10/02/23 Status: KARI Monroy Num: [id number] Spec Type: Surgical Subm Dr: Chay Castro Tissues: A Uterus w/ or w/o tubes ovaries except neoplastic or prolap (UTERUS) Procedures: , Gross/Micro L5 Patient: Azul Huertas [id number] (Continued) Signed (signature on file) Alexi Mclaughlin MD 10/04/23 1139 [facility] Echocardiographyon Echocardiography [id number]#1.00TIFF [facility] Consent for Treatmenton 09-08 Consent for Treatment [id number]#1.00TIFF [facility] Insurance Correspondenceon 1 10-23-2022 Insurance Correspondence [id number]son 08-20-2023 Auth for Release of Medical Records [id number]#1.00TIFF [facility] Ambulatory Visit Summaryon 1 10-16-2022 Ambulatory Visit Summary PRINCE OWENSFARHANAAZUL :1990 Visit Date:08/15/2023 Ambulatory Visit Instructions Your [...] choosing us for your care. Normal [facility] General Surgery Office/Clini c Noteon 08-15-2023 General Surgery Office/Clinic Note Chief Complaint s/p HPI Staff Azul is a 33 y.o. female here for s/p cholecystectomy done 08/07/2023 History of Present Illness Azul Llanos Joselynfarhana is a 33-year-old female status post robotic [...] with voice recognition artificial intelligence software, specifically [employer], Lizhi and or [employer]. Substitutions may have occurred voice recognition and artificial intelligence software. Documentation services were performed after patient or guardian consented to allow Holvi to record this visit. JOANN it technical specialist and provider reviewed before signing. JOANN: [...] Brother. Hypertensio (more content not included)... Normal [facility] Comment on above: Result Comment: Elec tronically [...] 3 days after surgery She finished the [place] yesterday and states the pain is unbearable [...] with voice recognition artificial intelligence software, specifically [employer], [employer]hi and or [employer] [place]. Substitutions may have occurred voice recognition and artificial intelligence software. Documentation services were performed after patient or guardian consented to allow Holvi to record this visit. JOANN it technical specialist and provider reviewed before signing. JOANN: [...] Instructions Percoce (more content not included)... Normal [facility] Comment on above: Result Comment: Elec tronically [...] partial hysterectomy in 09/2023 as recommended by [facility]. The decision to assess her cardiac [...] abnormal for sinus rhythm and possible anterior MD, although I think it is probably not more likely as a lead issue. However, we will get her a stress echo to evaluate the shortness of breath and abnormal EKG. See her back for follow-up. Chest pain (R07.9: Chest pain, unspecified) Stress echo to evaluate Portions of this record may have been created with voice recognition artificial intelligence software, specifically [employer], [employer]hi and or [employer] [place]. Substitutions may have occurred due to the inherent limitations of voice recognition and artificial intelligence software. Documentation services were performed after patient or guardian consented to allow Holvi to record this visit. JOANN it technical specialist and provider reviewed before signing. JOANN: [...] Oral, Da (more content not included)... Normal [facility] Comment on above: Result Comment: Elec tronically Signed By: Candy SOTELO, Glenn Holbrook\.br\Date and Time Signed: 08/12/23 13:43 EST\.br\Electronically Co-Signed By: Scott Frederick\.br\Date and Time Co-Signed: 08/11/23 17:25 EST Consent for Treatmenton Consent for Treatment [id number]#1.00TIFF Normal [facility] IntraOperative Documentson 1 10-12-2022 IntraOperative Documents [id number]#1.00TIFF Normal [facility] Physician Orderon 08-11-2023 Physician Order [id number]#1.00TIFF Normal [facility] Consent for Anesthesiaon Consent for Anesthesia [id number]#1.00TIFF Normal [facility] Discharge Instructionson Discharge Instructions [id number]#1.00TIFF Normal [facility] IntraOperative Documentson 1 10-07-2022 IntraOperative Documents [id number]#1.00TIFF [facility] Main OR Intraoperative Recor don 08-07-2023 Main OR Intraoperative Record IntraOp Document Type FT Summary Primary Physician: Alexx Gupta MD Finalized Date/Time: 08/07/23 13:39:28 Pt. Name: AZUL ONTIVEROS/Sex: 1990 Female Med Rec #: [id number] Physician: Alexx Gupta MD Financial #: [id number] Pt. Type: A Room/Bed: [place] [address] Admit/Disch: 08/06/23 05:51:08 - 08/06/23 11:20:00 Institution: Case Times FT Entry 1 Patient Times In Room 08/06/23 07:37:00 Out Room 08/06/23 09:24:00 Procedure Times Start 08/06/23 08:06:00 Stop 08/06/23 09:20:00 Anesthesia Times Start 08/06/23 07:37:00 Stop 08/06/23 09:24:00 Last Modified By: Santos SETHI, Natanael Bateman 08/06/23 09:24:07 General Comments: 08/07/23 Chart opened to review and send charges [facility] Case Attendance FT Entry 1 Entry 2 Entry 3 Case Attendee Felicitas Sanderson CRNA, MD, Alexx Graham RN, Natanael Bateman Role Performed UTILITY GELATIN MAKER Surgeon - Primary Coating Machine Operator Helper - Primary Time In 08/06/23 07:37:00 08/06/23 07:37:00 08/06/23 07:37:00 Time Out 08/06/23 09:24:00 08/06/23 09:04:00 08/06/23 09:24:00 Procedure CHOLECYSTECOMY ROBOT CHOLECYSTECOMY ROBOT CHOLECYSTECOMY ROBOT ASSISTED(.) ASSISTED(.) ASSISTED(.) Comments , anesthesia boat cleaning supervisor Last Modified By: Eduardo TAYLOR, Julianne Graham RN, Natanael Graham RN, Natanael Bateman 08/07/23 13:36:33 08/06/23 09:24:08 08/06/23 09:24:08 Entry 4 Entry 5 Case Attendee Emmanuelle Wilks James W Role Performed Scrub - Primary BUSINESS CONTINUITY CONSULTANT/SA Time In 08/06/23 07:37:00 08/06/23 07:37:00 Time [...] CRNA, Given Participants Alonso SOTELO, Santos Duran RN, Efe Bob Madison A, Boyer, James W [...] and tissue Entry 1 Skin Integrity Intact, [place], Warm, and Skin Abnormality No Dry Outcomes [...] Position Supine (more content not included)... Normal [facility] Pre-Op Checkliston Pre-Op Checklist [id number]#1.00TIFF Normal [facility] CHEMISTRYOrdered By: Lab ROP User on 08-06-2023 Glucose [Mass/Vol] 92 mg/dL Normal 55 - 99 mg/dL [facility] [place] Sub[place] Comment on above: Result Comment: Lisa [place] Meter POC Username COURTNEY DONOVAN Invalid Interpretation Code [facility] [place] Subsection Sodium [Moles/Vol] [id number] mmol/L Invalid Interpretation Code [facility] [place] Subsection Sodium [Moles/Vol] 852062634 mmol/L Invalid Interpretation Code [facility] [place] Subsection Capillary Glucose POCon 07-10 Glucose [Mass/Vol] 92 mg/dL Normal 55-99 [facility] Comment on above: Result Comment: Lisa [place] Meter Performed By: #### 2 [id number] ####[facility] [address] [place] [address] Consent for Treatmenton 07-10 Consent for Treatment [id number]#1.00TIFF [facility] Discharge Instructionson Discharge Instructions AZUL ONTIVEROS :1990 [...] AM EST With: Alexx Gupta MD Where: [facility] General Surgery [facility] Comment on above: Result Comment: Elec tronically Signed By: Thelma SETHI, Courtney Rodriguez\.br\Date and Time Signed: 08/06/23 09:56 EST Discharge [...] 1:30 PM EST With: Candy SOTELO, Glenn D. Where: Cardiology Clinic Friday 9:20 AM EST With: Alexx Gupta MD Where: [facility] General Surgery [facility] Comment on above: Result Comment: Elec tronically Signed By: Thelma SETHI, Courtney Elena\Date and Time Signed: 08/15/23 06:03 EST Discharge [...] AM EST With: Alexx Gupta MD Where: [facility] General Surgery [facility] Comment on above: Result Comment: Elec tronically Signed By: Thelma RN, Courtney Rodriguez\.br\Date and Time Signed: 08/15/23 06:03 EST Inpatient Patient Summaryon 08-06-2023 Inpatient Patient Summary [place] [address] [facility] Clinical Discharge Instructions PERSON INFORMATION Name: AZUL ONTIVEROS [facility]#:[id number] PHYSICIANS Admitting Physician: Alexx Gupta MD Attending Physician: Alexx Gupta MD PCP: TEZ ANGEL MD Discharge Diagnosis: Comment: PATIENT EDUCATION INFORMATION Instructions: Minimally Invasive Cholecystectomy, Care After Medication Leaflets: Follow up: With: Address: When: Alexx Gupta [address] [place] [phone] Business (1) Comments: Appointment has already been scheduled Type Location Start [facility] Cardiology New Patient (FT) FT.Cardiology Clinic 08/11/2023 1:30 PM 08/11/2023 1:45 PM Confirmed GS Post Op 15 [facility] 08/15/2023 9:20 AM 08/15/2023 9:40 AM Confirmed MEDICATION LIST New Medications [facility], [address] [place], [place] [id number], [phone] acetaminophen-oxycodone (Percocet 5 mg-325 mg oral tablet) [...] DAILY., Responsible Provider: Tez Angel Comment: Eli [facility] Main OR PACU I Recordon 07-10 Main OR PACU I Record PACU Phase I Document Type FT Summary Primary Physician: Alexx Gupta MD Finalized Date/Time: 08/06/23 10:10:38 Pt. Name: PRINCE AZUL ALLEN D.O.B./Sex: 1990 Female Med Rec #: [id number] Physician: Alexx Gupta MD Financial #: [id number] Pt. Type: A Room/Bed: [place] [address] Admit/Disch: 08/06/23 05:51:08 - Institution: Case Times [...] Signed By: Bia Perry RN 08/06/23 10:10 [facility] Main OR PACU II Recordon Main OR PACU II Record PACU Phase II Document Type FT Summary Primary Physician: Alexx Gupta MD Finalized Date/Time: 08/06/23 11:21:37 Pt. Name: AZUL ONTIVEROS/Sex: 1990 Female Med Rec #: [id number] Physician: Alexx Gupta MD Financial #: [id number] Pt. Type: A Room/Bed: [place] [address] Admit/Disch: 08/06/23 05:51:08 - Institution: Case Times [...] By: Adeline Elizabeth RN 08/06/23 11:21 Normal [facility] Main OR Preoperative Recordo n 08-06-2023 Main OR Preoperative Record PreOp Document Type FT Summary Primary Physician: Alexx Gupta MD Finalized Date/Time: 08/06/23 08:10:54 Pt. Name: AZUL ONTIVEROS/Sex: 1990 Female Med Rec #: [id number] Physician: Alexx Gupta MD Financial #: [id number] Pt. Type: A Room/Bed: [facility] Admit/Disch: 08/06/23 05:51:08 - Institution: Case Times [...] By: Natanael Graham RN 08/06/23 08:10 Normal [facility] Monitor Recordon 08-06-2023 Monitor Record [id number]#1.00TIFF Normal [facility] Operative Reporton Operative Report Indication for Surge ry 33-year-old female with symptomatic cholelithiasis here for robotic cholecystectomy Preoperative Diagnosis CHOLELITHIASIS Postoperative Diagnosis CHOLELITHIASIS Operation CHOLECYSTECOMY ROBOT ASSISTED, ROBOT ASSISTED LAPAROSCOPIC CHOLECYSTECOMY, . Surgeon(s) Alonso SOTELO, Alexx Dowling (Surgeon - Primary) Electric Furnace Operator Michael Anesthesia General Mauricio Chang Jr., DO (Shuttle Route Vehicle Operator) Felicitas Sanderson CRNA (Other) Estimated Blood Loss [...] x2 Patient tolerated the procedure: yes Normal [facility] Comment on above: Result Comment: Elec tronically Signed By: Alonso SOTELO, Alexx Dowling\.br\Date and Time Signed: 08/06/23 09:40 EST Outpatient Surgery Discharge Instructionon 08-06-2023 Outpatient Surgery Discharge Instruction [place] [id number] Patient Discharge Instructions PERSON INFORMATION Name: PRINCE [...] Follow up: With: Address: When: Alexx Gupta [address] [place], [place] [address], [place] [address], [facility] [address] [place] [phone] Business (1) Comments: Appointment has already been scheduled Type Location Start [facility] Cardiology New Patient (FT) FT.Cardiology Clinic 08/11/2023 1:30 PM 08/11/2023 1:45 PM Confirmed Post Op 15 [facility] [place] 08/15/2023 9:20 AM 08/15/2023 9:40 AM Confirmed Pharmacy Information: You may receive a survey from [employer] asking you to rate your care experience. Your feedback is important and will help us understand what we do well and how we can improve the quality of care we provide to you, your loved ones and our community. It?s an honor to serve you. Thank you for choosing [facility] HERE ARE THE MEDICATION CHANGES THAT OCCURRED DURING YOUR HOSPITAL STAY New Medications [facility], [address] [place] [id number], [phone] acetaminophen-oxycodone (Percocet 5 mg-325 mg oral tablet) [...] how to care (more content not included)... [facility] Patient Education - Texton 1 10-06-2022 Patient [...] these instructions at home: Medicines ? Take venj-dlp-mmowprs and prescription medicines only as told by [...] keep your urine pale yellow. ? Take ikwm-jic-sqfwwyq or prescription medicines. ? Eat foods that [...] and water are not available, use hand clerical manager. ? Change your dressing as told by [...] if yo (more content not included)... Normal [facility] Progress Note-Physicianon Progress Note-Physician Patient: AZUL ONTIVEROS Age: 33 years Sex: Female : 1990 Associated Diagnoses: None Author: Mauricio Chang Jr., DO Postoperative Information Postoperative disposition: Postoperative disposition: Home. Optimetrix number: Optimetrix number [id number]. Anesthetic utilized: General. Physical Examination Vital Signs [...] Ambulatory Surgery Unit, and To home ). Eli [facility] Comment on above: Result Comment: Elec tronically [...] 1 EA, Refill(s) 0, Prior to colonoscopy., [facility], 157.5, cm, 07/08/23 14:03:00 EDT, Height/Length Dosing, 129.5, kg, 07/08/23 14:03:00 EDT, Weight Dosing Protonix 40 mg Tab-DR: 40 mg = 1 tab(s), Oral, Daily, # 90 tab(s), Refills(s) 1, Pharmacy: [facility], 152.4, cm, 08/10/21 14:17:00 EST, Height/Length [...] list: All Problems Anemia / SNOMED CT 286517687 / Confirmed Anxiety / SNOMED CT 32175763 / Confirme (more content not included)... Normal [facility] Comment on above: Result Comment: Elec tronically Signed By: Mauricio Chang Jr., DO\.br\Date and Time Signed: 08/06/23 07:29 EST Consent for Procedure/Surger yon 07-28-2023 Consent for Procedure/Surgery [id number]#1.00TIFF Normal [facility] Auto Diffon 07-25-2023 Basophils/100 WBC (Bld) 0.4 % Normal 0.0-2.0 [facility] Comment on above: Order Comment: Order Added by Discern Expert. Performed By: #### 2 [id number], [id number] #### [facility] [address] [place] [address] Basophils/Leukocytes Auto (Bld) [Pure # fraction] 0.0 E9/L Normal 0.0-0.2 [facility] Comment on above: Order Comment: Order Added by Discern Expert. Performed By: #### 2 759666, [id number] #### [facility] [address] [place] [address] Eosinophils/100 WBC (Bld) 0.9 % Normal 0.0-8.0 [facility] Comment on above: Order Comment: Order Added by Discern Expert. Performed By: #### 2 110484, [id number] #### [facility] [address] [place] [address] Eosinophils/Leukocyt es Auto (Bld) [Pure # fraction] 0.0 E9/L Normal 0.0-0.5 [facility] Comment on above: Order Comment: Order Added by Discern Expert. Performed By: #### 2 463837, [id number] #### [facility] [address] [place] [address] Lymphocytes/100 WBC (Bld) 29.0 % Normal 14.0-50.0 [facility] Comment on above: Order Comment: Order Added by Discern Expert. Performed By: #### 2 167730, [id number] #### [facility] [address] [place] [address] Lymphocytes/Leukocyt es Auto (Bld) [Pure # fraction] 1.5 E9/L Normal 1.0-4.0 [facility] Comment on above: Order Comment: Order Added by Discern Expert. Performed By: #### 2 407125, [id number] #### [facility] [address] [place] [address] Monocytes/100 WBC (Bld) 8.4 % Normal 4.0-14.0 [facility] Comment on above: Order Comment: Order Added by Discern Expert. Performed By: #### 2 590806, [id number] #### [facility] [address] [place] [address] Monocytes/Leukocytes Auto (Bld) [Pure # fraction] 0.4 E9/L Normal 0.2-1.0 [facility] Comment on above: Order Comment: Order Added by Discern Expert. Performed By: #### 2 912080, 4123061 #### [facility] [address] [place] [address] Neutrophils/100 WBC (Bld) 61.3 % Normal 36.0-75.0 [facility] Comment on above: Order Comment: Order Added by Discern Expert. Performed By: #### 2 785531, [id number] #### [facility] [address] [place] [address] Neutrophils/Leukocyt es Auto (Bld) [Pure # fraction] 3.3 E9/L Normal 2.0-7.5 [facility] Comment on above: Order Comment: Order Added by Discern Expert. Performed By: #### 2 224386, 3272162 #### [facility] [address] [place] [address] CBC w/ Auto Diffon 3 Erythrocyte distribution width (RBC) [Ratio] 12.9 % Normal 10.9-14.2 [facility] Comment on above: Performed By: #### 2 530726, 6901612 #### [facility] [address] [place] [address] Hematocrit (Bld) [Volume fraction] 36.5 % Normal 34.0-46.0 [facility] Comment on above: Performed By: #### 2 643903, [id number] #### [facility] [address] [place] [address] Hemoglobin (Bld) [Mass/Vol] 12.1 g/dL Normal 12.0-16.0 [facility] Comment on above: Performed By: #### 2 959776, 1983027 #### [facility] [address] [place] [address] MCH (RBC) [Entitic mass] 31.1 pg Normal 27.0-34.0 [facility] Comment on above: Performed By: #### 2 365817, 3675963 #### [facility] [address] [place] [address] MCHC (RBC) [Mass/Vol] 33.3 g/dL Normal 31.4-36.0 [facility] Comment on above: Performed By: #### 2 149806, 6672726 #### [facility] [address] [place] [address] MCV (RBC) [Entitic vol] 93.3 fL Normal 80.0-100.0 [facility] Comment on above: Performed By: #### 2 025947, 4226461 #### [facility] [address] [place] [address] Platelet mean volume (Bld) [Entitic vol] 8.6 fL Normal 6.4-10.8 [facility] Comment on above: Performed By: #### 2 646154, 2352764 #### [facility] [address] [place] [address] Platelets (Bld) [#/Vol] 227.0 E9/L Normal 150.0-500. 0 [facility] Comment on above: Performed By: #### 2 855073, 3770656 #### [facility] [address] [place] [address] RBC (Bld) [#/Vol] 3.9 E12/L Low 4.3-5.9 [facility] Comment on above: Performed By: #### 2 852519, 3669406 #### [facility] [address] [place] [address] WBC corrected for nucl RBC Auto (Bld) [#/Vol] 5.3 E9/L Normal 4.0-11.0 [facility] Comment on above: Performed By: #### 2 190093, 5167619 #### [facility] [address] [place] [address] Maxillofacial w/o Contras ton 07-25-2023 CT [...] Latasha Arciniega MD Transcribed by: KARL Technologist: [facility] Consent for Treatmenton 07-09 Consent for Treatment [id number]#1.00TIFF [facility] HEMATOLOGYOrdered By: SYSTEM SYSTEM on 07-25-2023 Basophils/100 [...] Consent for Treatmenton 07-09 Consent for Treatment [id number]#1.00TIFF Normal [facility] Consent for Procedure/Surger yon 07-23-2023 Consent for Procedure/Surgery [id number]#1.00TIFF Normal [facility] Insurance Correspondenceon 09-21-2022 Insurance Correspondence [id number]#1.00TIFF Normal [facility] Ambulatory Visit Summaryon 09-20-2022 Ambulatory Visit Summary PRINCE ETZWILER, AZUL M :1990 Visit Date:07/21/2023 Ambulatory Visit Instructions Your [...] AM EST With: Alexx Gupta MD Where: [facility] General Surgery [facility] General Surgery Office/Clini c Noteon 07-21-2023 General Surgery Office/Clinic Note Chief Complaint RUQ pain HPI Staff HAND POTTER 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 female here for cholelithiasis Melissa Mayra referring US Gallbladder done 07/14/2023 She states [...] with voice recognition artificial intelligence software, specifically [employer], [employer] and or [employer]. Substitutions may have occurred voice recognition and artificial intelligence software. Documentation services were performed after patient or guardian consented to allow Hol[employer] to record this visit. JOANN it technical specialist and provider reviewed before signing. JOANN: [...] unknown Tobacco (more content not included)... Normal [facility] Comment on above: Result Comment: Elec tronically [...] food choices, such as grocery stores and [employer] markets. What are the signs or symptoms? [...] have to (more content not included)... Normal [facility] Insurance Correspondenceon 1 09-15-2022 Insurance Correspondence [id number]#1.00TIFF [facility] Physician Orderon 07-16-2023 Physician Order [id number]#1.00TIFF [facility] US Gallbladderon 07-15-2023 US Gallbladder Exam Date/Time: [...] M.D. Transcribed by: KARL Technologist: SERAFIN Benitez [facility] Consent for Treatmenton Consent for Treatment [id number]#1.00TIFF Eli [facility] Ambulatory Visit Summaryon 1 Ambulatory Visit Summary [...] Abdominal pain, No, Epigastric abdominal pain Normal [facility] Gastroenterology Office/Clin ic Noteon 07-08-2023 Gastroenterology Office/Clinic Note Chief Complaint Upper abdominal pain and pain when breathing. HPI Staff This is a 32 year old female who presents today for a follow up from [facility] [place], for complaints of GERD/ gastritis. Dr Angel referred patient to for gallbladder. History of Present Illness Patient is a 32-year-old female who presents for follow-up from ED visit 06/23/2023 at [facility]. Presents with female visitor today. Review [...] father, diagnosed in his 30s and hx. MD at age early 40s, reports her father [...] She explains she used to drink alcohol [id number]: 3 cans of beer and 1/2 gallon [...] Ordered EGD. Ordered: EGD Endoscopy (Hospital Procedure) [facility] [place] Ambulatory Referral [place] Gallbladder 2. Nausea [...] Ordered EGD. Ordered: EGD Endoscopy (Hospital Procedure) [facility] [place] Ambulatory Referral [place] Gallbladder 3. Irregular [...] in c (more content not included)... Normal [facility] Comment on above: Result Comment: Elec tronically Signed By: Melissa Nunez CNP\.min\Date and Time Signed: 07/08/23 14:43 EDT Patient [...] added (diluted fruit juice). ? Eat bland, bwul-sy-fdlakz foods in small amounts as you are able. These foods include bananas, applesauce, rice, lean meats, toast, and crackers. ? Avoid drinking fluids that contain a lot of sugar or caffeine, such as energy drinks, sports drinks, and soda. ? Avoid alcohol. ? Avoid spicy or fatty foods. General instructions ? Take edgg-ngf-ehmpvpb and prescription medicines only as told by [...] and water are not available, use hand clerical manager. ? Make sure that everyone in your [...] recommendations for eating and drinking and take jlsw-jmz-gugicaa and prescription medicines only as told by [...] provider. Document Revised: 03/01/2022 Document Reviewed: 03/01/2022 [employer] Patient Education ? 2022 [employer] [facility] Reminderson 07-08-2023 Reminders - From: Zoya Deal To: [facility] - Reminders/Recalls; Sent: 07/08/2023 14:50:43 EDT Show up: 07/08/2023 14:51:00 EDT Subject: Ambulatory Reminder Medicaid [place] Reminder/Recall call pt and schedule EGD and Colon with Dr. Patino once Medicaid [place] has been approved. Normal [facility] Physician Referralon 023 Physician Referral [id number] Normal [facility] Auto Diffon 06-23-2023 Basophils/100 WBC (Bld) 0.4 % Normal 0.0-2.0 [facility] Comment on above: Order Comment: Order Added by Discern Expert. Performed By: #### 2 551789, 0301122, 2285180, 0225326, 1959600, 02517449, 94854021 #### [facility] [address] [place] [address] Basophils/Leukocytes Auto (Bld) [Pure # fraction] 0.0 E9/L Normal 0.0-0.2 [facility] Comment on above: Order Comment: Order Added by Discern Expert. Performed By: #### 2 735438, 7348092, 5177528, 4535659, 5057242, 65595095, 05504611 #### [facility] [address] [place] [address] Eosinophils/100 WBC (Bld) 0.6 % Normal 0.0-8.0 [facility] Comment on above: Order Comment: Order Added by Discern Expert. Performed By: #### 2 874059, 1562248, 9580215, 7067494, 1748222, 44663517, 01200463 #### [facility] [address] [place] [address] Eosinophils/Leukocyt es Auto (Bld) [Pure # fraction] 0.0 E9/L Normal 0.0-0.5 [facility] Comment on above: Order Comment: Order Added by Discern Expert. Performed By: #### 2 121311, 0189015, 2408494, 9321614, 2406884, 28644575, 49785834 #### [facility] [address] [place] [address] 150[address] Lymphocytes/100 WBC (Bld) 13.9 % Low 14.0-50.0 [facility] Comment on above: Order Comment: Order Added by Discern Expert. Performed By: #### 2 906456, 6306961, 7516272, 2791237, 3598188, 41432402, 32418191 #### [facility] [address] [place] [address] 28874 Lymphocytes/Leukocyt es Auto (Bld) [Pure # fraction] 1.0 E9/L Normal 1.0-4.0 [facility] Comment on above: Order Comment: Order Added by Discern Expert. Performed By: #### 2 178047, 7396141, 5228998, 5544484, 3971771, 74474375, 15129288 #### [facility] [address] [place] [address] 27717 Monocytes/100 WBC (Bld) 5.5 % Normal 4.0-14.0 [facility] Comment on above: Order Comment: Order Added by Discern Expert. Performed By: #### 2 757683, 9632313, 7747365, 8626780, 6403600, 51080354, 13825418 #### [facility] [address] [place] [address]493 Monocytes/Leukocytes Auto (Bld) [Pure # fraction] 0.4 E9/L Normal 0.2-1.0 [facility] Comment on above: Order Comment: Order Added by Discern Expert. Performed By: #### 2 949420, 4439025, 5283131, 1305998, 4838414, 85843421, 61799566 #### [facility] [address] [place] [address] Neutrophils/100 WBC (Bld) 79.6 % High 36.0-75.0 [facility] Comment on above: Order Comment: Order Added by Kyle Expert. Performed By: #### 2 089256, 5296460, 8089399, 3280212, 7204039, 53268013, 37355803 #### [facility] [address] [place] [address] Neutrophils/Leukocyt es Auto (Bld) [Pure # fraction] 5.5 E9/L Normal 2.0-7.5 [facility] Comment on above: Order Comment: Order Added by Discern Expert. Performed By: #### 2 673292, 6080651, 7560200, 4296716, 6286191, 64038490, 54010564 #### [facility] [address] [place] [address] B hCG Qualon 06-23-2023 Beta hCG Ql Negative Normal [facility] Comment on above: Performed By: #### 2 984652, 2278035, 9979131, 4364824, 3791426, 06749163, 37984124 ####[facility] [address] [place] [address] BMPon 06-23-2023 Creatinine [Mass/Vol] 1.1 mg/dL Normal 0.5-1.3 [facility] Comment on above: Performed By: #### 2 529113, 7730962, 4895239, 9233159, 6749190, 88861764, 11942241 ####[facility] [address] [place] [address] Urea nitrogen [Mass/Vol] 17 mg/dL Normal 5-21 [facility] Comment on above: Performed By: #### 2 467909, 4175606, 4846327, 8479541, 4229351, 56884705, 71731378 ####[facility] [address] [place] [address] Urea nitrogen/Creatinine [Mass ratio] 16 No Units Normal 10-20 [facility] Comment on above: Performed By: #### 2 054595, 9468308, 6399600, 0181830, 0208351, 98625439, 73004813 ####[facility] [address] [place] [address] Anion gap [Moles/Vol] 9 mmol/L Normal 6-16 [facility] Comment on above: Performed By: #### 2 012629, 3325011, 2687352, 2568307, 5786568, 85451616, 06679674 ####[facility] [address] [place] [address] Calcium [Mass/Vol] 8.8 mg/dL Low 8.9-11.1 [facility] Comment on above: Performed By: #### 2 222508, 9501023, 2584020, 9902809, 8705670, 65850980, 72166620 ####[facility] [address] [place] [address] Chloride [Moles/Vol] 111 mmol/L Normal 101-111 [facility] Comment on above: Performed By: #### 2 901665, 1885249, 4787465, 9613429, 5828261, 34872955, 55843830 ####[facility] [address] [place] [address] CO2 [Moles/Vol] 18 mmol/L Low 21-31 [facility] Comment on above: Performed By: #### 2 241531, 2325009, 0720329, 3148324, 6055951, 87458498, 44001086 ####[facility] [address] [place] [address] Glucose [Mass/Vol] 142 mg/dL Normal 55-199 [facility] Comment on above: Result Comment: If t his glucose result represents a fasting glucose, interpretation should refer to the following reference range: 55-99 mg/dL Performed By: #### 2 814231, 2184355, 1612682, 0258789, 1960292, 42122575, 55311207 ####[facility] [address] [place] [address] Potassium [Moles/Vol] 3.9 mmol/L Normal 3.5-5.3 [facility] Comment on above: Performed By: #### 2 877257, 2447409, 6748929, 3656629, 5576157, 04039175, 03025152 ####[facility] [address] [place] [address] Sodium [Moles/Vol] 134 mmol/L Low 135-145 [facility] Comment on above: Performed By: #### 2 854322, 5237114, 8474508, 5791522, 6216334, 60503278, 66158512 ####[facility] [address] [place] [address] CBC w/ Auto Diffon Erythrocyte distribution width (RBC) [Ratio] 12.3 % Normal 10.9-14.2 [facility] Comment on above: Performed By: #### 2 021953, 2580346, 6241061, 3678831, 1359725, 49541966, 86237093 #### [facility] [address] [place] [address] Hematocrit (Bld) [Volume fraction] 38.3 % Normal 34.0-46.0 [facility] Comment on above: Performed By: #### 2 915612, 0849979, 5361936, 4277825, 1079320, 39134919, 97006957 #### [facility] [address] [place] [address] Hemoglobin (Bld) [Mass/Vol] 13.1 g/dL Normal 12.0-16.0 [facility] Comment on above: Performed By: #### 2 565858, 3293986, 1683690, 1498960, 6009122, 66125921, 46465924 #### [facility] [address] [place] [address] MCH (RBC) [Entitic mass] 31.4 pg Normal 27.0-34.0 [facility] Comment on above: Performed By: #### 2 144565, 5710489, 0821616, 4686555, 3094158, 78524058, 72692301 #### [facility] [address] [place] [address] MCHC (RBC) [Mass/Vol] 34.2 g/dL Normal 31.4-36.0 [facility] Comment on above: Performed By: #### 2 964355, 9128686, 5263504, 5070929, 3220699, 59768215, 73388997 #### [facility] [address] [place] [address] MCV (RBC) [Entitic vol] 91.8 fL Normal 80.0-100.0 [facility] Comment on above: Performed By: #### 2 118616, 7460118, 3431999, 8751608, 6381634, 88575865, 39834582 #### [facility] [address] [place] [address] Platelet mean volume (Bld) [Entitic vol] 8.8 fL Normal 6.4-10.8 [facility] Comment on above: Performed By: #### 2 430962, 8810754, 2067322, 3343771, 5230153, 67731244, 96944065 #### [facility] [address] [place] [address] Platelets (Bld) [#/Vol] 201.0 E9/L Normal 150.0-500. 0 [facility] Comment on above: Performed By: #### 2 612514, 3173922, 5173560, 5065921, 3957084, 47688366, 78126279 #### [facility] [address] [place] [address] RBC (Bld) [#/Vol] 4.2 E12/L Low 4.3-5.9 [facility] Comment on above: Performed By: #### 2 461744, 2970337, 2035776, 0698205, 9907020, 84484781, 84625302 #### [facility] [address] [place] [address] WBC corrected for nucl RBC Auto (Bld) [#/Vol] 6.9 E9/L Normal 4.0-11.0 [facility] Comment on above: Performed By: #### 2 024538, 7718183, 9919161, 8743608, 7620919, 59434397, 95627108 #### [facility] [address] [place] [address] CHEMISTRYOrdered By: SYSTEM SYSTEM on 06-23-2023 Albumin [...] 68 mL/min/1.73 m2 Normal >=59mL/min /1.73 m2 [facility] Comment on above: Interpretive Data: [...] Consent for Treatmenton 06-08 Consent for Treatment [id number] Normal [facility] Discharge Instructionson Discharge Instructions [id number] Normal [facility] ED Clinical Summaryon 2022 ED Clinical Summary (Inserted Image. Zenaida ble to display) [place] [id number] ED Clinical Summary Person Information Name: AZUL ONTIVEROS [facility] Age: 32 Years : 1990 Sex: Female Language: Syrian PCP: TEZ ANGEL MD Marital Status: Single [...] 06/23/2023 12:53:50 06/23/2023 12:53:50 06/23/2023 12:53:50 ADDRESS: [address] [place] [id number] [facility] DOC NOTES: MEDICAL INFORMATION: Prescriptions Given: [...] up: With: Address: When: Michael Patino [address], [address], [address] [place] [phone] Business (1) In 3 days 06/26/2023 With: Address: When: TEZ ANGEL [address], [place] [phone] Business (1) In 3 days 06/26/2023 DIAGNOSIS: Gastritis Normal [facility] ED Note-Physicianon 06-23-20 ED Note-Physician Basic Information Time Seen: Jean Alexx 06/23/2023 09:28 Chief Complaint Patient presents with [...] 06/26/2023 EDT [address], [address] [phone] Business (1) Additional Instructions: TEZ ANGEL In 3 days 06/26/2023 EDT [address] [place] [address] Business (1) Additional Instructions: Patient Education Gastritis, Adult Attestation Patient seen and evaluated by the physician advertising assistant manager. Attending physician was present in the emergency department and supervised care. This visit was performed by both the physician and an APC. I performed all aspects of the MDM as documented. This report was transcribed using voice recognition software. Every effort was made to ensure accuracy, however, inadvertently computerized promotions specialist mistakes may be present. Appropriate healthcare PPE [...] Positive dilut (more content not included)... Normal [facility] Comment on above: Result Comment: Elec tronically [...] medicines. These include steroids, antibiotics, and some ttdi-llu-jejbqha medicines, such as aspirin or ibuprofen. ? [...] these instructions at home: Medicines ? Take xwsh-noc-dhnaezd and prescription medicines only as told by [...] your stom (more content not included)... Normal [facility] ED Patient Summaryon 023 ED Patient Summary (Inserted Image. Zenaida ble to display) [address] [address] Patient Discharge Instructions Person Information Name: AZUL ONTIVEROS Age: 32 Years Arrival Date: 06/23/2023 09:19:14 Discharge Diagnosis: Gastritis Primary Care Physician: TEZ ANGEL MD Provider Information Primary Provider: Alexx Pena DO Advanced Document Design Specialist:Alban Givens PA-C The exam and treatment you received in the Emergency Department were for an urgent problem and are not intended as complete care. It is important that you follow up with a doctor, nurse practitioner, or physician?s advertising assistant manager for ongoing care. If your symptoms become worse or you do not improve as expected and you are unable to reach your usual health care provider, you should return to the Emergency Department. We are available 24 hours a day. AZUL ONTIVEROS has been given the following list of patient education materials, prescriptions and follow-up instructions: Follow-up Instructions: With: Address: When: Michael Patino [address] [place] [address], [facility] [address], [address] [phone] Business (1) In 3 days 06/26/2023 With: Address: When: TEZ ANGEL [address] [place], [place] [phone] Business (1) In 3 days 06/26/2023 In the event that this physician does not participate in your insurance network, please consult with your insurance company to find a nearby participating provider. Patient Education Materials: Gastritis, Adult A MESSAGE TO ALL PATIENTS REGARDING OPIOIDS PRESCRIPTION OPIOIDS: WHAT YOU NEED TO KNOW Prescription opioids can be used to help relieve pduoujle-ak-fcmeud pain and are often prescribed following a [...] struggling wit (more content not included)... Normal [facility] HEMATOLOGYOrdered By: SYSTEM SYSTEM on 06-23-2023 Basophils/100 [...] 31.4 pg Normal 27.0 - 34.0 pg FT HemeAutoSS MCHC (RBC) [Mass/Vol] 34.2 g/dL Normal [...] 06-23-2023 Albumin [Mass/Vol] 3.5 g/dL Normal 3.3-5.0 [facility] Comment on above: Performed By: #### 2 046284, 3737800, 1471701, 2092992, 1812277, 57023715, 56625277 ####[facility] [address] [place] [address] Albumin/Globulin (S) [Mass conc ratio] 1.1 Normal 1.1-2.2 [facility] Comment on above: Performed By: #### 2 846275, 3982069, 8534395, 5098098, 1488170, 95906186, 71179691 ####[facility] [address] [place] [address] ALP [Catalytic activity/Vol] 77 Int._Unit/L Normal 21-98 [facility] Comment on above: Performed By: #### 2 326189, 3606803, 4351893, 4258422, 9561861, 58726225, 07775756 ####[facility] [address] [place] [address] ALT No additional P-5'-P [Catalytic activity/Vol] 17 Int._Unit/L Normal 6-46 [facility] Comment on above: Performed By: #### 2 706528, 9132668, 8785827, 7750651, 8473082, 89764559, 65542836 ####[facility] [address] [place] [address] AST [Catalytic activity/Vol] 22 Int._Unit/L Normal 5-43 [facility] Comment on above: Performed By: #### 2 855667, 2799877, 0977743, 9533063, 0687010, 17904505, 21274702 ####[address] [address] Bilirubin [Mass/Vol] 0.5 mg/dL Normal 0.0-1.1 [facility] Comment on above: Performed By: #### 2 736460, 7245365, 1094813, 6418913, 3344791, 54309515, 49287984 ####[address] [address] Bilirubin.direct [Mass/Vol] 0.2 mg/dL Normal 0.1-0.4 [facility] Comment on above: Performed By: #### 2 344404, 8629628, 7575548, 0538002, 9299871, 13172960, 37354667 ####[place] [address] [place] [address] Bilirubin.indirect [Mass or moles/Vol] 0.3 mg/dL Normal 0.1-0.9 [facility] Comment on above: Performed By: #### 2 363380, 9466213, 7789507, 0345038, 3673349, 71865065, 52029394 ####[facility] [address] [place] [address] Globulin (S) [Mass/Vol] 3.3 g/dL Normal 1.4-4.0 [facility] Comment on above: Performed By: #### 2 751251, 2153163, 4668279, 7839430, 4221581, 93685765, 82826349 ####[facility] [address] [place] [address] Protein [Mass/Vol] 6.8 g/dL Normal 6.0-7.8 [facility] Comment on above: Performed By: #### 2 485163, 2753340, 0455445, 2622913, 6062338, 48463711, 14555374 ####[facility] [address] [place] [address] Lipase Levelon 06-23-2023 Lipase [Catalytic activity/Vol] 28 U/L Normal 13-58 [facility] Comment on above: Performed By: #### 2 553982, 3948937, 1807181, 3097178, 2642138, 33862599, 17367724 #### [facility] [address] [place] [address] SEROLOGYOrdered By: Tami Randle on 06-23-2023 Beta hCG Ql Negative (06/23/23 10:07 AM) Normal [facility] Man Sero UA With Cult Reflexon 2022 Bacteria LM Ql (Urine sed) TRACE Normal Trace [facility] Comment on above: Performed By: #### 1 6568043 #### [facility] [address] [place] [address] Bilirubin Ql (U) Negative Normal Negative [facility] Comment on above: Performed By: #### 1 3155256 #### [facility] [address] [place] [address] Clarity (U) SL CLOUDY Invalid Interpretation Code [facility] Comment on above: Performed By: #### 1 2182546 #### [facility] [address] [place] [address] Color (U) RED Abnormal Yellow [facility] Comment on above: Performed By: #### 1 0271900 #### [facility] [address] [place] [address] Epithelial cells.squamous LM.HPF (Urine sed) [#/Area] 3-4 Normal 0-2 [facility] Comment on above: Performed By: #### 1 1486314 #### [facility] [address] [place] [address] Glucose Test strip (U) [Mass/Vol] Negative Normal Negative [facility] Comment on above: Performed By: #### 1 7651685 #### [facility] [address] [place] [address] Hemoglobin Ql (U) 3+ Abnormal Negative [facility] Comment on above: Performed By: #### 1 3346913 #### [facility] [address] [place] [address] Ketones (U) [Mass/Vol] Negative Normal Negative [facility] Comment on above: Performed By: #### 1 6183367 #### [facility] [address] [place] [address] [place].plasma/Lithi um.RBC (Bld) [Mass ratio] >75 Abnormal 0-3 [facility] Comment on above: Performed By: #### 1 0346104 #### [facility] [address] [place] [address] Mucus Ql (Urine sed) TRACE Normal [facility] Comment on above: Performed By: #### 1 0020502 #### [facility] [address] [place] [address] Nitrite Ql (U) Negative Normal Negative [facility] Comment on above: Performed By: #### 1 9301456 #### [facility] [address] [place] [address] pH (U) 6.0 [pH] Invalid Interpretation Code 5.0-9.0 [facility] Comment on above: Performed By: #### 1 0666749 #### [facility] [address] [place] [address] Protein (U) [Mass/Vol] 1+ Abnormal Negative [facility] Comment on above: Performed By: #### 1 2712150 #### [facility] [address] [place] [address] Specific gravity (U) [Rel density] <=1.005 Invalid Interpretation Code 1.005-1.03 0 [facility] Comment on above: Performed By: #### 1 2894757 #### [facility] [address] [place] [address] Type of Urine collection method Clean Catch Normal [facility] Comment on above: Performed By: #### 1 4828186 #### [facility] [address] [place] [address] Urobilinogen Qn (U) 0.2 {Stevenson'U}/dL Normal 0.0-1.0 [facility] Comment on above: Performed By: #### 1 8904717 #### [facility] [address] [place] [address] WBC Auto Ql (U) Negative Normal Negative [facility] Comment on above: Performed By: #### 1 8654504 #### [facility] [address] [place] [address] WBC LM.HPF (Urine sed) [#/Area] 0-5 Normal 0-5 [facility] Comment on above: Performed By: #### 1 1631537 #### [facility] [address] [place] [address] URINALYSISOrdered By: Dinorah Randle on 06-23-2023 Bacteria [...] (Urine sed) [#/Area] 3-4 /HPF Normal 0-2/HPF FT UA Auto SS Glucose Test strip (U) [Mass/Vol] Negative (06/23/23 11:23 AM) Normal Negative FT UA Auto SS Hemoglobin Ql (U) 3+ *ABN* (06/23/23 11:23 AM) Invalid Interpretation Code Negative [facility] UA Auto SS Ketones (U) [Mass/Vol] Negative (06/23/23 11:23 AM) Normal Negative FT UA Auto SS [place].plasma/Lithi um.RBC (Bld) [Mass ratio] >75 /HPF Invalid Interpretation Code 0-3/HPF FT UA Auto SS Mucus Ql (Urine sed) Trace (06/23/23 11:23 AM) Normal [facility] UA Auto SS Nitrite Ql (U) Negative (06/23/23 11:23 AM) Normal Negative [facility] UA Auto SS pH (U) 6.0 *NA* (06/23/23 11:23 AM) Invalid Interpretation Code 5.0 - 9.0 [facility] UA Auto SS Protein (U) [Mass/Vol] 1+ *ABN* (06/23/23 11:23 AM) Invalid Interpretation Code Negative [facility] UA Auto SS Specific gravity (U) [Rel density] <=1.005 *NA* (06/23/23 11:23 AM) Invalid Interpretation Code 1.005 - 1.030 [facility] UA Auto SS UA Spec Desc Clean Catch (06/23/23 11:23 AM) Normal [facility] UA Auto SS Urobilinogen Qn (U) 0.7381252 {Stevenson'U}/dL Normal 0.0 - 1.0 EU/dL [facility] UA Auto SS WBC Auto Ql (U) Negative (06/23/23 11:23 AM) Normal Negative [facility] UA Auto SS WBC LM.HPF (Urine sed) [#/Area] 0-5 /HPF Normal 0-5/HPF [facility] UA Auto SS XR Chest Single Viewon [...] mGy = na DAP = na Normal [facility] eGFRon 06-23-2023 GFR/1.73 sq M.predicted among non-blacks MDRD (S/P/Bld) [Vol rate/Area] 68 mL/min/1.73 m2 Normal >=59 [facility] Comment on above: Order Comment: Order added by Discern Expert. Result Comment: Medical Records Coder jaden kidney disease could be indicated at eGFR's of less than 60 mL/min/1.73m2. Kidney failure is indicated at less than 15 mL/min/1.73m2. Performed By: #### 2 582318, 0257732, 2907264, 4624238, 7685925, 24667482, 89689835 ####[facility] [address] [place] [address] TSHon 01-09-2023 TSH 1.192 uIU/mL Normal 0.358-3.74 0 [facility] Comment on above: Performed By: #### T SH #### [facility] [address] [address] [address] Gage Mathis PAP ACOG PANEL 2: 30 to 65on 01-08-2023 . . [facility] Comment on above: Result Comment: Perf ormed at: WB Performed By: #### L IVER, LIPID, TSH, FT3, BMP #### [facility] [address] [place], [place] [address] Dr. Gage Mathis Age Gdln ACOG Testing 30-65 [facility] Comment on above: Performed By: #### L IVER, LIPID, TSH, FT3, BMP #### [facility] [address] [address] [address] Gage Mathis DIAGNOSIS: Comment [facility] Comment on above: Result Comment: NEGA TIVE FOR INTRAEPITHELIAL LESION OR MALIGNANCY. THIS SPECIMEN WAS RESCREENED PART OF OUR SUPERVISOR OF OFFICIALS PROGRAM. Performed at: WB Performed By: #### L IVER, LIPID, TSH, FT3, BMP #### [facility] [address] [place] [address] Dr. Gage Mathis HPV Aptima Negative Normal Negative [facility] Comment on above: Result Comment: This nucleic acid amplification test detects fourteen high-risk HPV types (16,18,31,33,35,39,45,51,52,56,58,59,66,68) without differentiation. Performed at: =G Performed By: #### L IVER, LIPID, TSH, FT3, BMP #### [facility] [address] [place] [address] Dr. Gage Mathis HPV Genotype Reflex Comment Normal [facility] Comment on above: Result Comment: Crit eria not met, HPV Genotype not performed. Performed at: WB Performed By: #### L IVER, LIPID, TSH, FT3, BMP #### [facility] [address] [place] [address] Dr. Gage Mathis Methodology: Comment Normal [facility] Comment on above: Result Comment: This liquid based ThinPrep(R) pap test was screened with the use of an image guided system. Performed at: WB Performed By: #### L IVER, LIPID, TSH, FT3, BMP #### [facility] [address] [place] [address] Dr. Gage Mathis Note: Comment Normal [facility] Comment on above: Result Comment: The [...] L IVER, LIPID, TSH, FT3, BMP #### [facility] [address] [place] [address] Dr. Gage Mathis Performed by: Comment Normal [facility] Comment on above: Result Comment: Zoya Davis, Clerical Supervisor (ASCP) Performed at: WB Performed By: #### L IVER, LIPID, TSH, FT3, BMP #### [facility] [address] [place] [address] Dr. Gage Mathis QC reviewed by: Comment Normal [facility] Comment on above: Result Comment: Clotilde Suresh, Supervisory Clerical Supervisor (ASCP) Performed at: WB Performed By: #### L IVER, LIPID, TSH, FT3, BMP #### [facility] [address] [place] [address] Dr. Gage Mathis Specimen adequacy: Comment Normal [facility] Comment on above: Result Comment: Sati sfactory for evaluation. Endocervical and/or squamous metaplastic cells (endocervical component) are present. Performed at: WB Performed By: #### L IVER, LIPID, TSH, FT3, BMP #### [facility] [address] [place] [address] Dr. Gage Mathis CBC AUTO DIFFon 12-04-2022 BASO # 0.0 103/ul Normal 0.0-0.1 [facility] Comment on above: Performed By: #### L IVER, LIPID, TSH, FT3, BMP #### [facility] [address] [place] [address] Dr. Gage Mathis Basophils/100 WBC (Bld) 0.4 % Normal 0.2-2.0 [facility] Comment on above: Performed By: #### L IVER, LIPID, TSH, FT3, BMP #### [facility] [address] [place] [address] Dr. Gage Mathis EO # 0.1 103/ul Normal 0.0-0.7 [facility] Comment on above: Performed By: #### L IVER, LIPID, TSH, FT3, BMP #### [facility] [address] [place] [address] Dr. Gage Mathis Eosinophils/100 WBC (Bld) 1.3 % Normal 0.9-7.0 [facility] Comment on above: Performed By: #### L IVER, LIPID, TSH, FT3, BMP #### [facility] [address] [place] [address] Dr. Gage Mathis Erythrocyte distribution width (RBC) [Ratio] 12.4 % Normal 11.0-15.0 [facility] Comment on above: Performed By: #### L IVER, LIPID, TSH, FT3, BMP #### [facility] [address] [place] [address] Dr. Gage Mathis Hematocrit (Bld) [Volume fraction] 37.1 % Normal 36.0-48.0 [facility] Comment on above: Performed By: #### L IVER, LIPID, TSH, FT3, BMP #### [facility] [address] [place] [address] Dr. Gage Mathis Hemoglobin (Bld) [Mass/Vol] 12.1 g/dL Normal 12.0-16.0 [facility] Comment on above: Performed By: #### L IVER, LIPID, TSH, FT3, BMP #### [facility] [address] [place] [address] Dr. Gage Mathis IG # 0.01 10e3/ul Normal 0.00-0.03 [facility] Comment on above: Performed By: #### L IVER, LIPID, TSH, FT3, BMP #### [facility] [address] [place] [address] Dr. Gage Mathis IG % 0.2 % Normal 0.0-0.5 [facility] Comment on above: Performed By: #### L IVER, LIPID, TSH, FT3, BMP #### [facility] [address] [place] [address] Dr. Gage Mathis LYMPH # 1.6 103/ul Normal 1.2-3.8 [facility] Comment on above: Performed By: #### L IVER, LIPID, TSH, FT3, BMP #### [facility] [address] [place] [address] Dr. Gage Mathis Lymphocytes/100 WBC (Bld) 30.6 % Normal 20.5-60.0 [facility] Comment on above: Performed By: #### L IVER, LIPID, TSH, FT3, BMP #### [facility] [address] [place] [address] Dr. Gage Mathis MANUAL DIFF REQ NO Normal [facility] Comment on above: Performed By: #### L IVER, LIPID, TSH, FT3, BMP #### [facility] [address] [place] [address] Dr. Gage Mathis MCH (RBC) [Entitic mass] 31.8 pg Normal 26.7-34.0 [facility] Comment on above: Performed By: #### L IVER, LIPID, TSH, FT3, BMP #### [facility] [address] [place] [address] Dr. Gage Mathis MCHC (RBC) [Mass/Vol] 32.6 g/dL Normal 29.9-35.2 [facility] Comment on above: Performed By: #### L IVER, LIPID, TSH, FT3, BMP #### [facility] [address] [place] [address] Dr. Gage Mathis MCV (RBC) [Entitic vol] 97.4 fL Normal 81.0-99.0 [facility] Comment on above: Performed By: #### L IVER, LIPID, TSH, FT3, BMP #### [facility] [address] [place] [address] Dr. Gage Mathis MONO # 0.4 103/ul Normal 0.3-0.8 [facility] Comment on above: Performed By: #### L IVER, LIPID, TSH, FT3, BMP #### [facility] [address] [place] [address] Dr. Gage Mathis Monocytes/100 WBC (Bld) 8.4 % Normal 1.7-12.0 [facility] Comment on above: Performed By: #### L IVER, LIPID, TSH, FT3, BMP #### [facility] [address] [place] [address] Dr. Gage Mathis NEUT # 3.1 103/ul Normal 1.4-6.5 [facility] Comment on above: Performed By: #### L IVER, LIPID, TSH, FT3, BMP #### [facility] [address] [address] [address] Gage Mathis Neutrophils/100 WBC (Bld) 59.1 % Normal 43.0-75.0 [facility] Comment on above: Performed By: #### L IVER, LIPID, TSH, FT3, BMP #### [facility] [address] [address] [address] Gage Mathis Platelet mean volume (Bld) [Entitic vol] 10.1 fL Normal 9.5-13.5 [facility] Comment on above: Performed By: #### L IVER, LIPID, TSH, FT3, BMP #### [facility] [address] [address] [address] Gage Mathis PLT 205 103/ul Normal 150-450 [facility] Comment on above: Performed By: #### L IVER, LIPID, TSH, FT3, BMP #### [facility] [address] [place] [address] Dr. Gage Mathis RBC 3.81 106/ul Critically low 4.20-5.40 [facility] Comment on above: Performed By: #### L IVER, LIPID, TSH, FT3, BMP #### [facility] [address] [address] [address] aGge Mathis WBC 5.2 103/ul Normal 4.0-11.0 [facility] Comment on above: Performed By: #### L IVER, LIPID, TSH, FT3, BMP #### [facility] [address] [place] [address] Dr. Gage Mathis FREE T4on 12-04-2022 Free T4 [Mass/Vol] 0.98 ng/dL Normal 0.76-1.46 [facility] Comment on above: Performed By: #### L IVER, LIPID, TSH, FT3, BMP #### [facility] [address] [place] [address] Dr. Gage Mtahis GLYCOHEMOGLOBIN A1Con 2022 ADA RECOMMENDATION SEE BELOW Normal [facility] Comment on above: Result Comment: ADA RECOMMENDED LIMIT 4.0 - 6.0 ADA THERAPEUTIC TARGET < 7.0 ACTION SUGGESTED > 7.0 Performed By: #### L IVER, LIPID, TSH, FT3, BMP #### [facility] [address] [address] [address] Gage Mathis Glucose [Mass/Vol] 100 mg/dL Normal [facility] Comment on above: Performed By: #### L IVER, LIPID, TSH, FT3, BMP #### [facility] [address] [place] [address] Dr. Gage Mathis HbA1c (Bld) [Mass fraction] 5.1 % Normal 4.5-6.2 [facility] Comment on above: Performed By: #### L IVER, LIPID, TSH, FT3, BMP #### [facility] [address] [place] [address] Dr. Gage Mathis PREG QUANT HCGon 12-04-2022 HCG QUANT <1 Normal [facility] Comment on above: Performed By: #### L IVER, LIPID, TSH, FT3, BMP #### [facility] [address] [place] [address] Dr. Gage Mathis HCG RANGE SEE BELOW Normal [facility] Comment on above: Result Comment: 5-50 0.2-1 WEEK 50-500 1-2 WEEKS 100-5,000 2-3 WEEKS 500-10,000 3-4 WEEKS 1,000-50,000 4-5 WEEKS 10,000-100,000 5-6 WEEKS 15,000-200,000 6-8 WEEKS 10,000-100,000 2-3 MONTHS Performed By: #### L IVER, LIPID, TSH, FT3, BMP #### [facility] [address] [place] [address] Dr. Gage Mathis PROTIMEon 12-04-2022 INR Coag (PPP) [Relative time] 0.94 {INR} Normal [facility] Comment on above: Performed By: #### L IVER, LIPID, TSH, FT3, BMP #### [facility] [address] [place] [address] Dr. Gage Mathis INR GUIDELINES SEE BELOW Normal [facility] Comment on above: Result Comment: KALEB RED INR: 2.0 - 3.0 CONDITIONS NOT LISTED BELOW 2.5 - 3.5 FOR PROSTHETIC HEART VALVE REPLACEMENT 2.5 - 3.5 RECURRENT THROMBOSIS Performed By: #### L IVER, LIPID, TSH, FT3, BMP #### [facility] [address] [place] [address] Dr. Gage Mathis PT Coag (PPP) [Time] 10.0 s Normal 9.0-11.6 [facility] Comment on above: Performed By: #### L IVER, LIPID, TSH, FT3, BMP #### [facility] [address] [place] [address] Dr. Gage Mathis PTTon 12-04-2022 aPTT Coag (Bld) [Time] 28.1 s Normal 22.3-36.2 [facility] Comment on above: Performed By: #### L IVER, LIPID, TSH, FT3, BMP #### [facility] [address] [place] [address] Dr. Gage Mathis TSHon 12-04-2022 TSH 4.110 uIU/mL Critically high 0.358-3.74 0 [facility] Comment on above: Performed By: #### L IVER, LIPID, TSH, FT3, BMP #### [facility] [address] [place] [address] Dr. Gage Mathis CBC AUTO DIFFon 10-09-2022 BASO # 0.0 103/ul Normal 0.0-0.1 [facility] Comment on above: Performed By: #### C BC #### [facility] [address] [place] [address] Dr. Gage Mathis Basophils/100 WBC (Bld) 0.1 % Critically low 0.2-2.0 [facility] Comment on above: Performed By: #### C BC #### [facility] [address] [place] [address] Dr. Gage Mathis EO # 0.0 103/ul Normal 0.0-0.7 [facility] Comment on above: Performed By: #### C BC #### [facility] [address] [place] [address] Dr. Gage Mathis Eosinophils/100 WBC (Bld) 0.0 % Critically low 0.9-7.0 [facility] Comment on above: Performed By: #### C BC #### [facility] [address] [place] [address] Dr. Gage Mathis Erythrocyte distribution width (RBC) [Ratio] 13.0 % Normal 11.0-15.0 [facility] Comment on above: Performed By: #### C BC #### [facility] [address] [place] [address] Dr. Gage Mathis Hematocrit (Bld) [Volume fraction] 38.6 % Normal 36.0-48.0 [facility] Comment on above: Performed By: #### C BC #### [facility] [address] [place] [address] Dr. Gage Mathis Hemoglobin (Bld) [Mass/Vol] 12.4 g/dL Normal 12.0-16.0 [facility] Comment on above: Performed By: #### C BC #### [facility] [address] [place] [address] Dr. Gage Mathis IG # 0.05 10e3/ul Critically high 0.00-0.03 [facility] Comment on above: Performed By: #### C BC #### [facility] [address] [place] [address] Dr. Gage Mathis IG % 0.5 % Normal 0.0-0.5 [facility] Comment on above: Performed By: #### C BC #### [facility] [address] [place] [address] Dr. Gage Mathis LYMPH # 2.8 103/ul Normal 1.2-3.8 [facility] Comment on above: Performed By: #### C BC #### [facility] [address] [place] [address] Dr. Ggae Mathis Lymphocytes/100 WBC (Bld) 26.2 % Normal 20.5-60.0 [facility] Comment on above: Performed By: #### C BC #### [facility] [address] [place] [address] Dr. Gage Mathis MANUAL DIFF REQ NO Normal [facility] Comment on above: Performed By: #### C BC #### [facility] [address] [place] [address] Dr. Gage Mathis MCH (RBC) [Entitic mass] 32.0 pg Normal 26.7-34.0 [facility] Comment on above: Performed By: #### C BC #### [facility] [address] [place] [address] Dr. Gage Mathis MCHC (RBC) [Mass/Vol] 32.1 g/dL Normal 29.9-35.2 [facility] Comment on above: Performed By: #### C BC #### [facility] [address] [place] [address] Dr. Gage Mathis MCV (RBC) [Entitic vol] 99.5 fL Critically high 81.0-99.0 [facility] Comment on above: Performed By: #### C BC #### [facility] [address] [place] [address] Dr. Gage Mathis MONO # 0.6 103/ul Normal 0.3-0.8 [facility] Comment on above: Performed By: #### C BC #### [facility] [address] [place] [address] Dr. Gage aMthis Monocytes/100 WBC (Bld) 5.5 % Normal 1.7-12.0 [facility] Comment on above: Performed By: #### C BC #### [facility] [address] [place] [address] Dr. Gage Mathis NEUT # 7.1 103/ul Critically high 1.4-6.5 [facility] Comment on above: Performed By: #### C BC #### [facility] [address] [place] [address] Dr. Gage Mathis Neutrophils/100 WBC (Bld) 67.7 % Normal 43.0-75.0 [facility] Comment on above: Performed By: #### C BC #### [facility] [address] [place] [address] Dr. Gage Mathis Platelet mean volume (Bld) [Entitic vol] 10.0 fL Normal 9.5-13.5 [facility] Comment on above: Performed By: #### C BC #### [facility] [address] [place] [address] Dr. Gage Mathis PLT 271 103/ul Normal 150-450 [facility] Comment on above: Performed By: #### C BC #### [facility] [address] [place] [address] Dr. Gage Mathis RBC 3.88 106/ul Critically low 4.20-5.40 [facility] Comment on above: Performed By: #### C BC #### [facility] [address] [place] [address] Dr. Gage Mathis WBC 10.5 103/ul Normal 4.0-11.0 [facility] Comment on above: Performed By: #### C BC #### [facility] [address] [place] [address] Dr. Gage Mathis FREE T3on 10-09-2022 FREE T3 1.64 pg/mlL Critically low 2.18-3.98 [facility] Comment on above: Performed By: #### L IVER, LIPID, TSH, FT3, BMP #### [facility] [address] [place] [address] Dr. Gage Mathis FREE T4on 10-09-2022 Free T4 [Mass/Vol] 1.01 ng/dL Normal 0.76-1.46 [facility] Comment on above: Performed By: #### F T4 #### [facility] [address] [place] [address] Dr. Gage Mathis GLYCOHEMOGLOBIN A1Con 2022 ADA RECOMMENDATION SEE BELOW Normal [facility] Comment on above: Result Comment: ADA RECOMMENDED LIMIT 4.0 - 6.0 ADA THERAPEUTIC TARGET < 7.0 ACTION SUGGESTED > 7.0 Performed By: #### L IVER, LIPID, TSH, FT3, BMP #### [facility] [address] [place] [address] Dr. Gage Mathis Glucose [Mass/Vol] 100 mg/dL Normal [facility] Comment on above: Performed By: #### L IVER, LIPID, TSH, FT3, BMP #### [facility] [address] [address] [address] Gage Mathis HbA1c (Bld) [Mass fraction] 5.1 % Normal 4.5-6.2 [facility] Comment on above: Performed By: #### L IVER, LIPID, TSH, FT3, BMP #### [facility] [address] [place] [address] Dr. Gage Mathis LIPID PROFILEon 10-09-2022 CHOL-HDL RATIO NORM SEE BELOW Normal [facility] Comment on above: Result Comment: 3.3 - 4.4 LOW RISK 4.4 - 7.1 AVERAGE RISK 7.1 - 11.0 MODERATE RISK >11.0 HIGH RISK Performed By: #### L IVER, LIPID, TSH, FT3, BMP #### [facility] [address] [place] [address] Dr. Gage Mathis Cholesterol [Mass/Vol] 162 mg/dL Normal <=200 [facility] Comment on above: Performed By: #### L IVER, LIPID, TSH, FT3, BMP #### [facility] [address] [place] [address] Dr. Gage Mathis Cholesterol in HDL [Mass/Vol] 78 mg/dL Critically high 40-60 [facility] Comment on above: Performed By: #### L IVER, LIPID, TSH, FT3, BMP #### [facility] [address] [place] [address] Dr. Gage Mathis Cholesterol in LDL [Mass/Vol] 72.8 mg/dL Normal [facility] Comment on above: Performed By: #### L IVER, LIPID, TSH, FT3, BMP #### [facility] [address] [place] [address] Dr. Gage Mathis Cholesterol.total/Ch olesterol in HDL [Mass ratio] 2.1 {ratio} Normal [facility] Comment on above: Performed By: #### L IVER, LIPID, TSH, FT3, BMP #### [facility] [address] [place] [address] Dr. Gage Mathis HDL NORMAL > or = 60 mg/dl - LO W CARDIOVASCULAR RISK <40 mg/dl - HIGH CARDIOVASCULAR RISK Normal [facility] Comment on above: Performed By: #### L IVER, LIPID, TSH, FT3, BMP #### [facility] [address] [address] [address] Gage Mathis LDL CALC NORMAL SEE BELOW Normal [facility] Comment on above: Result Comment: <100 mg/dl OPTIMAL 100 - 129 mg/dl NEAR OR ABOVE OPTIMAL 130 - 159 mg/dl BORDERLINE HIGH 160 - 189 mg/dl HIGH >190 mg/dl VERY HIGH Performed By: #### L IVER, LIPID, TSH, FT3, BMP #### [facility] [address] [address] [address] Gage Mathis Triglyceride [Mass/Vol] 56 mg/dL Normal <=150 [facility] Comment on above: Performed By: #### L IVER, LIPID, TSH, FT3, BMP #### [facility] [address] [address] [address] Gage Mathis VLDL CALC 11.2 mg/dL Normal [facility] Comment on above: Performed By: #### L IVER, LIPID, TSH, FT3, BMP #### [facility] [address] [address] [address] Gage Mathis LIVER PROFILEon 10-09-2022 Albumin [Mass/Vol] 3.2 g/dL Critically low 3.4-5.[address] [facility] Comment on above: Performed By: #### L IVER, LIPID, TSH, FT3, BMP #### [facility] [address] [address] [address] Gage Mathis Albumin/Globulin [Mass ratio] 0.9 {ratio} Normal [facility] Comment on above: Performed By: #### L IVER, LIPID, TSH, FT3, BMP #### [facility] [address] [address] [address] Gage Mathis ALP [Catalytic activity/Vol] 89 U/L Normal 46-116 [facility] Comment on above: Performed By: #### L IVER, LIPID, TSH, FT3, BMP #### [facility] [address] [place] [address] Dr. Gage Mathis ALT [Catalytic activity/Vol] 49 U/L Normal 14-59 [facility] Comment on above: Performed By: #### L IVER, LIPID, TSH, FT3, BMP #### [facility] [address] [place] [address] Dr. Gage Mathis AST [Catalytic activity/Vol] 15 U/L Normal 15-37 [facility] Comment on above: Performed By: #### L IVER, LIPID, TSH, FT3, BMP #### [facility] [address] [place] [address] Dr. Gage Mathis BILI, CONJUGATED 0.1 mg/dL Normal 0.0-0.2 [facility] Comment on above: Performed By: #### L IVER, LIPID, TSH, FT3, BMP #### [facility] [address] [place] [address] Dr. Gage Mathis Bilirubin [Mass/Vol] 0.3 mg/dL Normal 0.2-1.0 [facility] Comment on above: Performed By: #### L IVER, LIPID, TSH, FT3, BMP #### [facility] [address] [place] [address] Dr. Gage Mathis Globulin (S) [Mass/Vol] 3.7 g/dL Normal [facility] Comment on above: Performed By: #### L IVER, LIPID, TSH, FT3, BMP #### [facility] [address] [place] [address] Dr. Gage Mathis Protein [Mass/Vol] 6.9 g/dL Normal 6.4-8.2 [facility] Comment on above: Performed By: #### L IVER, LIPID, TSH, FT3, BMP #### [facility] [address] [place] [address] Dr. Gage Mathis PROF CHEM 8 (BAS METB)on Anion gap [Moles/Vol] 12.1 mmol/L Normal [facility] Comment on above: Performed By: #### L IVER, LIPID, TSH, FT3, BMP #### [facility] [address] [place] [address] Dr. Gage Mathis Calcium [Mass/Vol] 9.0 mg/dL Normal 8.5-10.1 [facility] Comment on above: Performed By: #### L IVER, LIPID, TSH, FT3, BMP #### [facility] [address] [address] [address] Gage Mathis Chloride [Moles/Vol] 104 mmol/L Normal 98-107 [facility] Comment on above: Performed By: #### L IVER, LIPID, TSH, FT3, BMP #### [facility] [address] [place] [address] Dr. Gage Mathis CO2 [Moles/Vol] 29.6 mmol/L Normal 21.0-32.0 [facility] Comment on above: Performed By: #### L IVER, LIPID, TSH, FT3, BMP #### [facility] [address] [place] [address] Dr. Gage Mathis Creatinine [Mass/Vol] 0.82 mg/dL Normal 0.55-1.02 [facility] Comment on above: Performed By: #### L IVER, LIPID, TSH, FT3, BMP #### [facility] [address] [place] [address] Dr. Gage Mathis EGFR-AF PARAGUAYAN >60 Normal >=60 [facility] Comment on above: Performed By: #### L IVER, LIPID, TSH, FT3, BMP #### [facility] [address] [place] [address] Dr. Gage Mathis EGFR-NON AF PARAGUAYAN >60 Normal >=60 [facility] Comment on above: Performed By: #### L IVER, LIPID, TSH, FT3, BMP #### [facility] [address] [place] [address] Dr. Gage Mathis Glucose [Mass/Vol] 92 mg/dL Normal 74-106 [facility] Comment on above: Performed By: #### L IVER, LIPID, TSH, FT3, BMP #### [facility] [address] [place] [address] Dr. Gage Mathis Potassium [Moles/Vol] 3.7 mmol/L Normal 3.5-5.1 [facility] Comment on above: Performed By: #### L IVER, LIPID, TSH, FT3, BMP #### [facility] [address] [place] [address] Dr. Gage Mathis Sodium [Moles/Vol] 142 mmol/L Normal 136-145 [facility] Comment on above: Performed By: #### L IVER, LIPID, TSH, FT3, BMP #### [facility] [address] [place] [address] Dr. Gage Mathis Urea nitrogen [Mass/Vol] 14.0 mg/dL Normal 7.0-18.0 [facility] Comment on above: Performed By: #### L IVER, LIPID, TSH, FT3, BMP #### [facility] [address] [place] [address] Dr. Gage Mathis Urea nitrogen/Creatinine [Mass ratio] 17.1 mg/mg Normal [facility] Comment on above: Performed By: #### L IVER, LIPID, TSH, FT3, BMP #### [facility] [address] [place] [address] Dr. Gage Mathis TSHon 10-09-2022 TSH 1.637 uIU/mL Normal 0.358-3.74 0 [facility] Comment on above: Performed By: #### L IVER, LIPID, TSH, FT3, BMP #### [facility] [address] [place] [address] Dr. Gage Mathis VITAMIN D 25 OHon 10-09-2022 VIT D 25-OH 41.1 ng/mL Normal [facility] Comment on above: Performed By: #### V ITAD #### [facility] [address] [place] [address] Dr. Gage Mathis VIT D RANGES SEE BELOW Normal [facility] Comment on above: Result Comment: <20 ng/mL Vit D deficient 20 - <30 ng/mL Vit D insufficient 30 - 100 ng/mL Vit D sufficient >100 ng/mL Potential Toxicity Performed By: #### V ITAD #### [facility] [address] [address] [address] Gage Mathis COVID/FLU RT-PCRon 3 SARS-CoV-2 (COVID-19) RNA EB+probe Ql (Unsp spec) Negative [employer] Other COVID/FLU RT-PCR Negative [facility] [employer] Other COVID Quick Testingon 2021 Result Negative [employer] [facility] [employer] Other US PELVIS AND TRANSVAGon US PELVIS [...] BING NOE Date: 2022-05-02 17:47 Normal [facility] CHLAMYDIA/GONOCOCCUS EB (SW AB/URINE/PAPon 04-11-2022 Chlamydia trachomatis, EB Negative Normal Negative [facility] Comment on above: Performed By: #### L IVER, LIPID, TSH, FT3, BMP #### [facility] [address] [place], [place] [address] Dr. Gage Mathis Neisseria gonorrhoeae, EB Negative Normal Negative [facility] Comment on above: Performed By: #### L IVER, LIPID, TSH, FT3, BMP #### [facility] [address] [address] [address] Gage Mathis VAGINITIS/VAGINOSIS DNA PROB Sincere 04-10-2022 Sol species Negative Normal Negative [facility] Comment on above: Performed By: #### V AGINT #### [facility] [address] [address] [address] Gage Mathis Gardnerella vaginalis Positive Abnormal Negative [facility] Comment on above: Performed By: #### V AGINT #### [facility] [address] [address] [address] Gage Mathis Trichomonas vaginalis Negative Normal Negative [facility] Comment on above: Performed By: #### V AGINT #### [facility] [address] [address] [address] Gage Mathis Basic Metabolic Panlon 08-06 Anion gap 3 molar conc 14 mmol/L Normal 9-18 [facility] Comment on above: Performed By: #### B MP, HFP ####[address] [phone] Calcium mass conc 9.2 mg/dL Normal 8.5-10.2 [facility] Comment on above: Performed By: #### B MP, HFP ####[address] [phone] Chloride molar conc 103 mmol/L Normal 97-105 [facility] Comment on above: Performed By: #### B MP, HFP ####[address] [phone] CO2 molar conc 24 mmol/L Normal 22-30 [facility] Comment on above: Performed By: #### B MP, HFP ####[address] [place] [phone] Creatinine mass conc 0.83 mg/dL Normal 0.58-0.96 [facility] Comment on above: Performed By: #### B MP, HFP ####[facility] [place], [place] [phone] eGFR- Amer. >60 Normal [facility] Comment on above: Performed By: #### B MP, [facility] ####[id number] [place], [place] [phone] GFR/1.73 sq M predicted among non-blacks MDRD vol rate/area (S/P/Bld) mL/min/{1.73_m2} Normal [facility] Comment on above: Result Comment: eGFR [...] actual GFR. Performed By: #### B BRYANNA, [facility] ####[address] [phone] Glucose mass conc 82 mg/dL Normal 74-99 [facility] Comment on above: Result Comment: The [place] Diabetes Association (ADA) provides guidance for cutoff [...] Standards of Medical Care in Diabetes 2016, [place] [employer]. Diabetes Care. 2016.39(Suppl 1). Performed By: #### B MP, [facility] ####[address] [address] [address] [place], [place] [phone] Potassium molar conc 4.3 mmol/L Normal 3.7-5.1 [facility] Comment on above: Performed By: #### B MP, HFP ####[facility] [place], [place] [phone] Sodium molar conc 141 mmol/L Normal 136-144 [facility] Comment on above: Performed By: #### B MP, HFP ####[facility], [place] [phone] Urea nitrogen mass conc 14 mg/dL Normal 7-21 [facility] Comment on above: Performed By: #### B MP, HFP ####[facility] [place], [place] [phone] CNOVSPon 08-06-2018 CNOVSP Visit (SP) Office (HEMAC[place]) AZUL ONTIVEROS ([id number]) 1990 [facility] Time Provider Zqblkcgmvz51/29/18 3:30 PM SHANT ROMERO During your visit [...] or bleedingissues. A hypercoag panel was done TJ which was negative. She does smoke.There was [...] al. Chest 2012, 141:7S-47SNishimura RA, et al. [facility] 2017, 70: 252-289 APTT 23.0 - [...] oflaboratory APTT reagent in use throughout the [facility]. Platelet Neut Negative Negative Negative DRVVT Screen 32.7 - 46.7 sec 35.1 36.1 42.3 DRVVT Confirm Ratio <1.21 1.10 <1.21 class= rz_g igg1161 >0.91 <1.21 class= rz_6 lzn7708 >1.06 DRVVT 1:1 Mix 32.7 - 46.7 sec 33.9 36.2 41.3 Hex Phase Screen 45.0 - 59.9 sec 34.7 54.5 Hex Phase Confirm 41.8 - 54.9 sec 32.6 47.7 Hex Phase Delta <9.1 delta sec 2.1 <9.1 delta sec class= rz_6 [id number] >6.7 APTT Screen 24.4 - 33.4 sec 24.3 33.0CM Immediate PTT 1:1 Mix <33.2 sec 26.3 <33.2 sec class= rz_6 egp2551 >30.6 Incubated PTT 1:1 Mix <35.0 sec 28.3 <35.0 sec class= rz_6 [id number] >32.4 Thrombin Time <18.6 sec 17.7 <18.6 sec class= rz_6 jrj1651 >16.1 Interpretation(Lupus Anticoagulant) (NOTE) (NOTE)CMComment: Performing Pathologist: [...] GPL <9 <9CMComment: <10 GPL ? ? [id number] GPL ? Equivocal>40 GPL ? ? PositiveThe following results were obtained with the Inova QUANTA Lite LAVON IgG IIIELISA. Cardiolipin IgG values obtained with the different manufacturers' assay?methods may not be used interchangeably. The magnitude of the reported IgGlevels cannot be correlated to an endpoint titer. Cardiolipin Ab, IgM 0 - 11 MPL <9 9CMComment: <12 MPL ? ? Xiyvuyew86-25 MPL ? Equivocal>40 MPL ? ? PositiveThe following results were obtained with the Inova QUANTA Lite LAVON IgM IIIELISA. Cardiolipin IgM values obtained with different manufacturers' assaymethods may not be used interchangeably. The magnitude of the reported IgMlevels cannot be correlated to an endpoint titer. Cardiolipin Ab, IgA 0 - 11 APL <9 <9CMComment: <12 APL ? ? Yclimree02-68 APL ? Equivocal>40 APL ? ? PositiveThe following results were obtained with an Inova QUANTA Lite LAVON IgA IIIELISA. Cardiolipin IgA values obtained with different manufacturers' assaymethods may not be used interchangeably. The magnitude of the reported IgAlevels cannot be correlated to an endpoint titer. Beta 2 Glycoprotein, IgG <20 SGU <9 <20 SGU class= rz_6 [id number] ><9CMComment: < 20 ?SGU ? ?Vpoadlje02-48 SGU ? ?Low Positive> 80 ?SGU ? ?High PositiveThese results were obtained with the [employer] QUANTA Lite B2 GPI IgG DAYNA. B2GPI IgG values obtained with different manufacturers' assay methods may not be?used interchangeably. The magnitude of the reported IgG levels cannot becorrelated to an endpoint titer. Beta 2 Glycoprotein, IgM <20 SMU <9 <20 SMU class= rz_6 [id number] ><9CMComment: < 20 ?SMU ? ?Hwqjzsvw56-10 SMU ? ?Low Positive> 80 ?SMU ? ?High PositiveThese results were obtained with the [employer] QUANTA Lite B2 GPI IgM DAYNA. B2GPI IgM values obtained with different manufacturers' assay methods may not be?used interchangeably. The magnitude of the reported IgM levels cannot becorrelated to an endpoint titer.FACTOR V LEIDEN/PCROrder: [id number]: Final result ??Visible to patient: No (Not Released) Next appt: NoneDx: Positive dilute Idalia's viper venom...Component 3mo agoFactor V Leiden PCR Report (NOTE)Comment: Performing Pathologist: Alvina Sotomayor M.D., Ph.D.Factor V Leiden Mutation Result: NORMALHOMOCYSTEINEOrder: [id number]: Final result ??Visible to patient: No (Not Released) Next appt: NoneDx: Positive dilute Idalia's viper venom... Ref Range AND Units 3mo agoHomocysteine, Serum <15.1 umol/L 9.5Resulting Agency CCMSpecimen Collected: 04/20/18 ?2:22 PM Last Resulted: 04/21/18 ?1:31 PM LabFlowsheet Order Details View Encounter Lab and Collection Details RoutingResult HistoryOther Results from 04/20/2018FACTOR V LEIDEN/PCROrder: [id number]: Final result ??Visible to patient: No (Not [...] and Collection Details RoutingResult HistoryPROTHROMBIN GENE PCROrder: [id number]: Final result ??Visible to patient: No (Not Released) Next appt: NoneDx: Positive dilute Idalia's viper venom...Component 3mo agoPT Gene Report (NOTE)Comment: Performing Pathologist: Alvina Sotomayor M.D., Ph.D.PT Gene Mutation Result: NORMAL ?PT Gene Mutation Interpretation: The DNA sample is negative for [id number] point mutation in the 3' untranslated region [...] and Collection Details RoutingResult HistoryPROTEIN S CLOTTABLEOrder: [id number]: Final result ??Visible to patient: No (Not Released) Next appt: NoneDx: Positive dilute Idalia's viper venom... Ref Range AND Units 3mo agoProtein S Clottable 59 - 131 % 108Resulting Agency CCMSpecimen Collected: 04/20/18 ?2:22 PM Last Resulted: 04/21/18 ?9:13 AM LabFlowsheet Order Details View Encounter Lab and Collection Details RoutingResult HistoryPROTEIN C FUNCTOrder: [id number]: Final result ??Visible to patient: No (Not Released) Next appt: NoneDx: Positive dilute Idalia's viper venom... Ref Range AND Units 3mo agoPro C Fun 76 - 147 % 104Resulting Agency CCMSpecimen Collected: 04/20/18 ?2:22 PM Last Resulted: 04/21/18 ?9:13 AM LabFlowsheet Order Details View Encounter Lab and Collection Details RoutingResult HistoryANTITHROMBIN IIIOrder: [id number]: Final result ??Visible to patient: No (Not Released) Next appt: NoneDx: Positive dilute Idalia's viper venom... Ref Range AND Units 3mo agoAntithrombin Assay 84 - 138 % 93Resulting Agency CCMSpecimen Collected: 04/20/18 ?2:22 PM Last Resulted: 04/21/18 ?9:13 AM LabFlowsheet Order Details View Encounter Lab and Collection Details RoutingResult HistoryLUPUS ANTICOAG PLOrder: [id number]: Final result ??Visible to patient: No (Not [...] al. Chest 2012, 141:7S-47SNishimura RA, et al. [facility] 2017, 70: 252-289APTT 23.0 - 32.4 sec [...] oflaboratory APTT reagent in use throughout the [facility].Platelet Neut Negative NegativeDRVVT Screen 32.7 - [...] 9 GPL <9Comment: <10 GPL ? ? Xyyvfpjx49-05 GPL ? Equivocal>40 GPL ? ? PositiveThe following results were obtained with the [employer] QUANTA Lite LAVON IgG IIIELISA. Cardiolipin IgG values obtained with the different manufacturers' assay?methods may not be used interchangeably. The magnitude of the reported IgGlevels cannot be correlated to an endpoint titer.Cardiolipin Ab, IgM 0 - 11 MPL 9Comment: <12 MPL ? ? Cuuvaqcb42-87 MPL ? Equivocal>40 MPL ? ? PositiveThe following results were obtained with the [employer] GramcoA Lite LAVON IgM IIIELISA. Cardiolipin IgM values obtained with different manufacturers' assaymethods may not be used interchangeably. The magnitude of the reported IgMlevels cannot be correlated to an endpoint titer.Cardiolipin Ab, IgA 0 - 11 APL <9Comment: <12 APL ? ? Jxfatwtt41-85 APL ? Equivocal>40 APL ? ? PositiveThe following results were obtained with an Inova QUANTA Lite LAVON IgA IIIELISA. Cardiolipin IgA values obtained with different manufacturers' assaymethods may not be used interchangeably. The magnitude of the reported IgAlevels cannot be correlated to an endpoint titer.Beta 2 Glycoprotein, IgG <20 SGU <9Comment: < 20 ?SGU ? ?Nibemkva02-89 SGU ? ?Low Positive> 80 ?SGU ? ?High PositiveThese results were obtained with the Alta AnalogA Lite B2 GPI IgG DAYNA. B2GPI IgG values obtained with different manufacturers' assay methods may not be?used interchangeably. The magnitude of the reported IgG levels cannot becorrelated to an endpoint titer.Beta 2 Glycoprotein, IgM <20 SMU <9Comment: < 20 ?SMU ? ?Egzfzdrh21-24 SMU ? ?Low Positive> 80 ?SMU ? ?High PositiveThese results were obtained with the [employer] QUANTA Lite B2 GPI IgM DAYNA. B2GPI IgM values obtained with different manufacturers' assay methods may not be?used interchangeably. The magnitude of the reported IgM levels cannot becorrelated to an endpoint titer.Resulting Agency CCMSpecimen Collected: 04/20/18 ?2:22 PM Last Resulted: 04/21/18 ?6:40 PM LabFlowsheet Order Details View Encounter Lab and Collection Details RoutingResult HistoryANA PANEL BLOOD SCRNOrder: [id number]: Final result ??Visible to patient: No (Not [...] population. No indication for intervention needed.Shant Romero, MDReferring Provider: LATASHA HU [[id number]]Allergies As of Date: 08/06/2018 Noted Allergy ReactionIODINE [...] by SHANT ROMERO MD on 08/06/18 Normal [facility] Hepatic Functn Panelon 08-06 Albumin mass conc 4.2 g/dL Normal 3.9-4.9 [facility] Comment on above: Performed By: #### B BRYANNA, HFP ####[facility] [place], [place] [phone] ALP enzyme act/vol 75 U/L Normal 34-123 [facility] Comment on above: Performed By: #### B BRYANNA, HFP ####[facility] [place], [place] [phone] ALT enzyme act/vol 21 U/L Normal 7-38 [facility] Comment on above: Performed By: #### B BRYANNA, HFP ####[facility] [address] [phone] AST enzyme act/vol 21 U/L Normal 13-35 [facility] Comment on above: Performed By: #### B MP, HFP ####[address] [phone] Bilirubin mass conc 0.3 mg/dL Normal 0.2-1.3 [facility] Comment on above: Performed By: #### B MP, HFP ####[address] [phone] Bilirubin,Conjugated <0.2 Normal <0.2 [facility] Comment on above: Performed By: #### B MP, HFP ####[address] [phone] Protein mass conc 7.3 g/dL Normal 6.3-8.0 [facility] Comment on above: Performed By: #### B MP, HFP ####[address] [phone] PROGRESSon 08-06-2018 Protein mass conc HNO ID: [id number] thor: Shant Quinonez: (none)Author Type: PhysicianType: Progress [...] al. Chest 2012, 141:7S-47SNishjono RA, et al. [facility] 2017, 70: 252-289 APTT 23.0 - [...] lotoflaboratory APTT reagent in use throughout the [facility]. Platelet Neut Negative Negative Negative DRVVT Screen 32.7 - 46.7 sec 35.1 36.1 42.3 DRVVT Confirm Ratio <1.21 1.10 <1.21 class= rz_g rot2615 >0.91 <1.21 class= rz_6 mdd2201 >1.06 DRVVT 1:1 Mix 32.7 - 46.7 sec 33.9 36.2 41.3 Hex Phase Screen 45.0 - 59.9 sec 34.7 54.5 Hex Phase Confirm 41.8 - 54.9 sec 32.6 47.7 Hex Phase Delta <9.1 delta sec 2.1 <9.1 delta sec class= rz_6hlt1024 >6.7 APTT Screen 24.4 - 33.4 sec 24.3 33.0CM Immediate PTT 1:1 Mix <33.2 sec 26.3 <33.2 sec class= rz_6 juh2326 >30.6 Incubated PTT 1:1 Mix <35.0 sec 28.3 <35.0 sec class= rz_6 yah8782 >32.4 Thrombin Time <18.6 sec 17.7 <18.6 sec class= rz_6 kht6254 >16.1 Interpretation(Lupus Anticoagulant) (NOTE) (NOTE)CMComment: Performing Pathologist: [...] GPL <9 <9CMComment: <10 GPL ? ? Ltswngrm54-38 GPL ? Equivocal>40 GPL ? ? PositiveThe following results were obtained with the [employer] QUANTA Lite LAVON IgG IIIELISA. Cardiolipin IgG values obtained with the different manufacturers'assay?method s may not be used interchangeably. The magnitude of the reportedIgGlevels cannot be correlated to an endpoint titer. Cardiolipin Ab, IgM 0 - 11 MPL <9 9CMComment: <12 MPL ? ? Ojjlepiv82-26 MPL ? Equivocal>40 MPL ? ? PositiveThe following results were obtained with the Inova QUANTA Lite LAVON IgM IIIELISA. Cardiolipin IgM values obtained with different manufacturers' assaymethods may not be used interchangeably. The magnitude of the reported IgMlevels cannot be correlated to an endpoint titer. Cardiolipin Ab, IgA 0 - 11 APL <9 <9CMComment: <12 APL ? ? Chjrtjbj67-25 APL ? Equivocal>40 APL ? ? PositiveThe following results were obtained with an Inova QUANTA Lite LAVON IgA IIIELISA. Cardiolipin IgA values obtained with different manufacturers' assaymethods may not be used interchangeably. The magnitude of the reported IgAlevels cannot be correlated to an endpoint titer. Beta 2 Glycoprotein, IgG <20 SGU <9 <20 SGU class= rz_6 [id number] ><9CMComment: < 20 ?SGU ? ?Ccoxnwwa49-29 SGU ? ?Low Positive> 80 ?SGU ? ?High PositiveThese results were obtained with the [employer] QUANTA Lite B2 GPI IgG DAYNA.B2GPI IgG values obtained with different manufacturers' assay methods maynot be?used interchangeably. The magnitude of the reported IgG levels cannot becorrelated to an endpoint titer. Beta 2 Glycoprotein, IgM <20 SMU <9 <20 SMU class= rz_6 okr9636 ><9CMComment: < 20 ?SMU ? ?Snwoqbms96-60 SMU ? ?Low Positive> 80 ?SMU ? ?High PositiveThese results were obtained with the Inova QUANTA Lite B2 GPI IgM DAYNA.B2GPI IgM values obtained with different manufacturers' assay methods maynot be?used interchangeably. The magnitude of the reported IgM levels cannot becorrelated to an endpoint titer.FACTOR V LEIDEN/PCROrder: [id number]: Final result ??Visible to patient: No (Not Released) Next appt:None Dx: Positive dilute Idalia's viper venom...Component 3mo agoFactor V Leiden PCR Report (NOTE)Comment: Performing Pathologist: Alvina Kottke Bran, M.D., Ph.D.Factor V Leiden Mutation Result: NORMALHOMOCYSTEINEOrder: [id number]: Final result ??Visible to patient: No (Not Released) Next appt:None Dx: Positive dilute Idalia's viper venom... Ref Range AND Units 3mo agoHomocysteine, Serum <15.1 umol/L 9.5Resulting Agency CCMSpecimen Collected: 04/20/18 ?2:22 PM Last Resulted: 04/21/18 ?1:31 PM LabFlowsheet Order Details View Encounter Lab and Collection Details RoutingResult HistoryOther Results from 04/20/2018FACTOR V LEIDEN/PCROrder: [id number]: Final result ??Visible to patient: No (Not [...] and Collection Details RoutingResult HistoryPROTHROMBIN GENE PCROrder: [id number]: Final result ??Visible to patient: No (Not Released) Next appt:None Dx: Positive dilute Idalia's viper venom...Component 3mo agoPT Gene Report (NOTE)Comment: Performing Pathologist: Alvina Sotomayor M.D., Ph.D.PT Gene Mutation Result: NORMAL ?PT Gene Mutation Interpretation: The DNA sample is negative for [id number] point mutation in the 3' untranslated region [...] and Collection Details RoutingResult HistoryPROTEIN S CLOTTABLEOrder: [id number]: Final result ??Visible to patient: No (Not Released) Next appt:None Dx: Positive dilute Idalia's viper venom... Ref Range AND Units 3mo agoProtein S Clottable 59 - 131 % 108Resulting Agency CCMSpecimen Collected: 04/20/18 ?2:22 PM Last Resulted: 04/21/18 ?9:13 AM LabFlowsheet Order Details View Encounter Lab and Collection Details RoutingResult HistoryPROTEIN C FUNCTOrder: [id number]: Final result ??Visible to patient: No (Not Released) Next appt:None Dx: Positive dilute Idalia's viper venom... Ref Range AND Units 3mo agoPro C Fun 76 - 147 % 104Resulting Agency CCMSpecimen Collected: 04/20/18 ?2:22 PM Last Resulted: 04/21/18 ?9:13 AM LabFlowsheet Order Details View Encounter Lab and Collection Details RoutingResult HistoryANTITHROMBIN IIIOrder: [id number]: Final result ??Visible to patient: No (Not Released) Next appt:None Dx: Positive dilute Idalia's viper venom... Ref Range AND Units 3mo agoAntithrombin Assay 84 - 138 % 93Resulting Agency CCMSpecimen Collected: 04/20/18 ?2:22 PM Last Resulted: 04/21/18 ?9:13 AM LabFlowsheet Order Details View Encounter Lab and Collection Details RoutingResult HistoryLUPUS ANTICOAG PLOrder: [id number]: Final result ??Visible to patient: No (Not [...] al. Chest 2012, 141:7S-47SNishimlouise RA, et al. [facility] 2017, 70: 252-289APTT 23.0 - 32.4 sec [...] lotoflaboratory APTT reagent in use throughout the [facility].Platelet Neut Negative NegativeDRVVT Screen 32.7 [...] 9 GPL <9Comment: <10 GPL ? ? [id number] GPL ? Equivocal>40 GPL ? ? PositiveThe following results were obtained with the Inova QUANTA Lite LAVON IgG IIIELISA. Cardiolipin IgG values obtained with the different manufacturers'assay?method s may not be used interchangeably. The magnitude of the reportedIgGlevels cannot be correlated to an endpoint titer.Cardiolipin Ab, IgM 0 - 11 MPL 9Comment: <12 MPL ? ? Uzrzalza94-98 MPL ? Equivocal>40 MPL ? ? PositiveThe following results were obtained with the Inova QUANTA Lite LAVON IgM IIIELISA. Cardiolipin IgM values obtained with different manufacturers' assaymethods may not be used interchangeably. The magnitude of the reported IgMlevels cannot be correlated to an endpoint titer.Cardiolipin Ab, IgA 0 - 11 APL <9Comment: <12 APL ? ? Fvmwkzlj99-59 APL ? Equivocal>40 APL ? ? PositiveThe following results were obtained with an WeGameva QUANTA Lite LAVON IgA IIIELISA. Cardiolipin IgA values obtained with different manufacturers' assaymethods may not be used interchangeably. The magnitude of the reported IgAlevels cannot be correlated to an endpoint titer.Beta 2 Glycoprotein, IgG <20 SGU <9Comment: < 20 ?SGU ? ?Nygcvfph19-08 SGU ? ?Low Positive> 80 ?SGU ? ?High PositiveThese results were obtained with the Alta AnalogA Lite B2 GPI IgG DAYNA.B2GPI IgG values obtained with different manufacturers' assay methods maynot be?used interchangeably. The magnitude of the reported IgG levels cannot becorrelated to an endpoint titer.Beta 2 Glycoprotein, IgM <20 SMU <9Comment: < 20 ?SMU ? ?Tenlivuw91-10 SMU ? ?Low Positive> 80 ?SMU ? ?High PositiveThese results were obtained with the TrustID QUANTA Lite B2 GPI IgM DAYNA.B2GPI IgM values obtained with different manufacturers' assay methods maynot be?used interchangeably. The magnitude of the reported IgM levels cannot becorrelated to an endpoint titer.Resulting Agency CCMSpecimen Collected: 04/20/18 ?2:22 PM Last Resulted: 04/21/18 ?6:40 PM LabFlowsheet Order Details View Encounter Lab and Collection Details RoutingResult HistoryANA PANEL BLOOD SCRNOrder: [id number]: Final result ??Visible to patient: No (Not [...] indication for intervention needed.Shant Romero MD Normal [facility] Remote Abs Gran + CBC (for F HC use only)on 08-06-2018 Absol Gran Count 3.97 k/uL Normal 1.45-7.50 [facility] Erythrocyte distribution width Auto Ratio (RBC) 12.1 % Normal 11.5-15.0 [facility] Hematocrit Auto Volume Fraction (Bld) 35.6 % Low 36.0-46.0 [facility] Hemoglobin mass conc (Bld) 11.6 g/dL Normal 11.5-15.5 [facility] MCH Auto Entitic mass (RBC) 31.1 pG Normal 26.0-34.0 [facility] MCHC Auto mass conc (RBC) 32.6 g/dL Normal 30.5-36.0 [facility] MCV Auto Entitic volume (RBC) 95.4 fL Normal 80.0-100.0 [facility] Platelet mean volume Auto Entitic volume (Bld) 10.4 fL Normal 9.0-12.7 [facility] Platelets Auto #/vol (Bld) 211 10*3/uL Normal 150-400 [facility] RBC Auto #/vol (Bld) 3.73 10*6/uL Low 3.90-5.20 [facility] WBC Auto #/vol (Bld) 6.52 10*3/uL Normal 3.70-11.00 [facility] Basic Metabolic Panlon 07-28 Anion gap 3 molar conc 10 mmol/L Normal 9-18 [facility] Calcium mass conc 9.3 mg/dL Normal 8.5-10.2 [facility] Chloride molar conc 104 mmol/L Normal 97-105 [facility] CO2 molar conc 23 mmol/L Normal 22-30 [facility] Creatinine mass conc 0.70 mg/dL Normal 0.58-0.96 [facility] eGFR- Amer. >60 Normal [facility] GFR/1.73 sq M predicted among non-blacks MDRD vol rate/area (S/P/Bld) mL/min/{1.73_m2} Normal [facility] Comment on above: Result Comment: eGFR [...] Glucose mass conc 101 mg/dL High 74-99 [facility] Potassium molar conc 4.0 mmol/L Normal 3.7-5.1 [facility] Sodium molar conc 137 mmol/L Normal 136-144 [facility] Urea nitrogen mass conc 12 mg/dL Normal 7-21 [facility] Hepatic Functn Panelon 07-28 Albumin mass conc 4.1 g/dL Normal 3.9-4.9 [facility] ALP enzyme act/vol 75 U/L Normal 34-123 [facility] ALT enzyme act/vol 16 U/L Normal 7-38 [facility] AST enzyme act/vol 14 U/L Normal 13-35 [facility] Bilirubin mass conc 0.3 mg/dL Normal 0.2-1.3 [facility] Bilirubin,Conjugated <0.2 Normal <0.2 [facility] Protein mass conc 7.2 g/dL Normal 6.3-8.0 [facility] Lupus Anticoag Panelon 07-28 aPTT Coag time (Bld) 24.3 s Low 24.4-33.4 [facility] Comment on above: Performed By: #### L UPUSP ####[facility] [address] [place], [place] [phone] aPTT Coag time (Bld) 26.3 s Normal <33.2 [facility] Comment on above: Performed By: #### L UPUSP ####[place] [id number] [place], [place] [phone] aPTT Coag time (Bld) 21.8 s Low 23.0-32.4 [facility] Comment on above: Result [...] laboratory APTT reagent in use throughout the [facility]. Performed By: #### L UPUSP ####[address] [phone] aPTT Coag time (Bld) 28.3 s Normal <35.0 [facility] Comment on above: Performed By: #### L UPUSP ####[address] [phone] Beta2 Glycoprot IgG <9 Normal <20 [facility] Comment on above: Result Comment: < 20 SGU Emdource70-43 SGU Low Positive> 80 SGU High PositiveThese results were obtained with the TrustID QUANTA Lite B2 GPI IgG DAYNA. B2 GPI IgG values obtained with different manufacturers' assay methods may not be used interchangeably. The magnitude of the reported IgG levels cannot be correlated to an endpoint titer. Performed By: #### L UPUSP ####[address] [phone] DRVVT 1:1 Mix 33.9 sec Normal 32.7-46.7 [facility] Comment on above: Performed By: #### L UPUSP ####[place] [id number]CS[address] [place], [place] [phone] DRVVT Confirm Ratio 1.10 Normal <1.21 [facility] Comment on above: Performed By: #### L UPUSP ####[place] [address]CS[address] [place], [place] [phone] DRVVT Screen 35.1 sec Normal 32.7-46.7 [facility] Comment on above: Performed By: #### L UPUSP ####[place] [address], [place] [phone] Hex Phase Confirm 32.6 sec Low 41.8-54.9 [facility] Comment on above: Performed By: #### L UPUSP ####[address] [phone] Hex Phase Delta 2.1 delta sec Normal <9.1 [facility] Comment on above: Performed By: #### L UPUSP ####[place] [address], [place] [phone] Hex Phase Screen 34.7 sec Low 45.0-59.9 [facility] Comment on above: Performed By: #### L UPUSP ####[address] [phone] IgA Cardiolipin Ab. <9 Normal 0-11 [facility] Comment on above: Result Comment: <12 APL Rgovqeow98-72 APL Equivocal>40 APL PositiveThe following results were obtained with an TrustID QUANTA Lite LAVON IgA III DAYNA. Cardiolipin IgA values obtained with different manufacturers' assay methods may not be used interchangeably. The magnitude of the reported IgA levels cannot be correlated to an endpoint titer. Performed By: #### L UPUSP ####[address] [phone] IgG Cardiolipin Ab. <9 Normal 0-9 [facility] Comment on above: Result Comment: <10 GPL [id number] GPL Equivocal>40 GPL PositiveThe following results were obtained with the Inova QUANTA Lite LAVON IgG III DAYNA. Cardiolipin IgG values obtained with the different manufacturers' assay methods may not be used interchangeably. The magnitude of the reported IgG levels cannot be correlated to an endpoint titer. Performed By: #### L UPUSP ####[address] [phone] IgM Cardiolipin Ab. <9 Normal 0-11 [facility] Comment on above: Result Comment: <12 MPL Mojoegfz57-78 MPL Equivocal>40 MPL PositiveThe following results were obtained with the TrustID QUANTA Lite LAVON IgM III DAYNA. Cardiolipin IgM values obtained with different manufacturers' assay methods may not be used interchangeably. The magnitude of the reported IgM levels cannot be correlated to an endpoint titer. Performed By: #### L UPUSP ####[address] [phone] INR Coag RelTime (Bld) 1.1 {INR} Normal 0.9-1.3 [facility] Comment on above: Result Comment: Maya min K Antagonist (VKA) Therapeutic Range: INR 2 to 3 (Target INR of 2.5)Note: For patients treated with VKA drugs, such as warfarin, the [employer] 2012 Guideline recommends [...] al. Chest 2012, 141:7S-47SShelbie FISCHER, et al. [facility] 2017, 70: 252-289 Performed By: #### L UPUSP ####[place] [id number] [place], [place] [phone] Interpretation (NOTE) Normal [facility] Comment on above: Result Comment: Perf [...] 74:1185 (1995). Performed By: #### L UPUSP ####[address] [phone] PNP Negative Normal Negative [facility] Comment on above: Performed By: #### L UPUSP ####[address] [phone] Protein mass conc g/dL Normal <20 [facility] Comment on above: Result Comment: < 20 SMU Ixpcifzn73-32 SMU Low Positive> 80 SMU High PositiveThese results were obtained with the TrustID QUANTA Lite B2 GPI IgM DAYNA. B2 GPI IgM values obtained with different manufacturers' assay methods may not be used interchangeably. The magnitude of the reported IgM levels cannot be correlated to an endpoint titer. Performed By: #### L UPUSP ####[facility] [address] [place], [place] [phone] PT Sec 11.2 sec Normal 9.7-13.0 [facility] Comment on above: Performed By: #### L UPUSP ####[facility] [address] [place], [place] [phone] Thrombin Time 17.7 sec Normal <18.6 [facility] Comment on above: Performed By: #### L UPUSP ####[facility] [address] [place], [place] [phone] Remote Abs Gran + CBC (for F HC use only)on 07-28-2018 Absol Gran Count 4.19 k/uL Normal 1.45-7.50 [facility] Erythrocyte distribution width Auto Ratio (RBC) 12.4 % Normal 11.5-15.0 [facility] Hematocrit Auto Volume Fraction (Bld) 38.5 % Normal 36.0-46.0 [facility] Hemoglobin mass conc (Bld) 12.5 g/dL Normal 11.5-15.5 [facility] MCH Auto Entitic mass (RBC) 31.1 pG Normal 26.0-34.0 [facility] MCHC Auto mass conc (RBC) 32.5 g/dL Normal 30.5-36.0 [facility] MCV Auto Entitic volume (RBC) 95.8 fL Normal 80.0-100.0 [facility] Platelet mean volume Auto Entitic volume (Bld) 11.1 fL Normal 9.0-12.7 [facility] Platelets Auto #/vol (Bld) 193 10*3/uL Normal 150-400 [facility] RBC Auto #/vol (Bld) 4.02 10*6/uL Normal 3.90-5.20 [facility] WBC Auto #/vol (Bld) 6.67 10*3/uL Normal 3.70-11.00 [facility] Dilute RVVTon 07-08-2018 DRVVT 1:1 Mix 36.2 sec Normal 32.7-46.7 [facility] Comment on above: Performed By: #### D RVVT ####[facility] [place], [place] [phone] DRVVT Confirm Ratio 0.91 Normal <1.21 [facility] Comment on above: Performed By: #### D RVVT ####[facility], [place] [phone] DRVVT Screen 36.1 sec Normal 32.7-46.7 [facility] Comment on above: Performed By: #### D RVVT ####[place] [id number], [place] [phone] ROSANA Panel 1on 04-20-2018 ROSANA by EIA 0.4 OD Ratio Normal [facility] Comment on above: Result Comment: OD R atio is interpreted as follows:Negative <1.0Positive >=1.0 Performed By: #### W SR, PRCFUN, AT3ASY, PRSCLT, SERIMM, HOMCYS, IRON, FERR, B12, SERFOL, ANA1, HSCRP ####[place] [address] [place], [place] [phone] ROSANA by EIA, Qual Negative Normal Negative [facility] Comment on above: Performed By: #### W SR, PRCFUN, AT3ASY, PRSCLT, SERIMM, HOMCYS, IRON, FERR, B12, SERFOL, ANA1, HSCRP ####[facility], [place] [phone] Antithrombin Assayon 018 Antithrombin Assay 93 % Normal 84-138 [facility] Comment on above: Performed By: #### W SR, PRCFUN, AT3ASY, PRSCLT, SERIMM, HOMCYS, IRON, FERR, B12, SERFOL, ANA1, HSCRP ####[facility], [place] [phone] Comp Metabolic Panelon 04-20 Albumin mass conc 4.3 g/dL Normal 3.9-4.9 [facility] Comment on above: Performed By: #### W SR, PRCFUN, AT3ASY, PRSCLT, SERIMM, HOMCYS, IRON, FERR, B12, SERFOL, ANA1, HSCRP ####[place] [address] [place], [place] [phone] ALP enzyme act/vol 98 U/L Normal 32-117 [facility] Comment on above: Performed By: #### W SR, PRCFUN, AT3ASY, PRSCLT, SERIMM, HOMCYS, IRON, FERR, B12, SERFOL, ANA1, HSCRP ####[place] [address] [place] [phone] ALT enzyme act/vol 13 U/L Normal 7-38 [facility] Comment on above: Performed By: #### W SR, PRCFUN, AT3ASY, PRSCLT, SERIMM, HOMCYS, IRON, FERR, B12, SERFOL, ANA1, HSCRP ####[place] [address] [place] [phone] Anion gap 3 molar conc 9 mmol/L Normal 9-18 [facility] Comment on above: Performed By: #### W SR, PRCFUN, AT3ASY, PRSCLT, SERIMM, HOMCYS, IRON, FERR, B12, SERFOL, ANA1, HSCRP ####[place] [address] [place] [phone] AST enzyme act/vol 14 U/L Normal 13-35 [facility] Comment on above: Performed By: #### W SR, PRCFUN, AT3ASY, PRSCLT, SERIMM, HOMCYS, IRON, FERR, B12, SERFOL, ANA1, HSCRP ####[place] [address] [place], [place] [phone] Bilirubin mass conc 0.2 mg/dL Normal 0.2-1.3 [facility] Comment on above: Performed By: #### W SR, PRCFUN, AT3ASY, PRSCLT, SERIMM, HOMCYS, IRON, FERR, B12, SERFOL, ANA1, HSCRP ####[address] [phone] Calcium mass conc 9.2 mg/dL Normal 8.5-10.2 [facility] Comment on above: Performed By: #### W SR, PRCFUN, AT3ASY, PRSCLT, SERIMM, HOMCYS, IRON, FERR, B12, SERFOL, ANA1, HSCRP ####[place] [phone] Chloride molar conc 102 mmol/L Normal 97-105 [facility] Comment on above: Performed By: #### W SR, PRCFUN, AT3ASY, PRSCLT, SERIMM, HOMCYS, IRON, FERR, B12, SERFOL, ANA1, HSCRP ####[place] [phone] CO2 molar conc 28 mmol/L Normal 22-30 [facility] Comment on above: Performed By: #### W SR, PRCFUN, AT3ASY, PRSCLT, SERIMM, HOMCYS, IRON, FERR, B12, SERFOL, ANA1, HSCRP ####[place] [phone] Creatinine mass conc 0.96 mg/dL Normal 0.58-0.96 [facility] Comment on above: Performed By: #### W SR, PRCFUN, AT3ASY, PRSCLT, SERIMM, HOMCYS, IRON, FERR, B12, SERFOL, ANA1, HSCRP ####[place] [phone] eGFR- Amer. >60 Normal [facility] Comment on above: Performed By: #### W SR, PRCFUN, AT3ASY, PRSCLT, SERIMM, HOMCYS, IRON, FERR, B12, SERFOL, ANA1, HSCRP ####[place] [address] [place], [place] [phone] GFR/1.73 sq M predicted among non-blacks MDRD vol rate/area (S/P/Bld) mL/min/{1.73_m2} Normal [facility] Comment on above: Result Comment: eGFR [...] HOMCYS, IRON, FERR, B12, SERFOL, ANA1, HSCRP ####[place] [address] [place], [place] [phone] Glucose mass conc 103 mg/dL High 74-99 [facility] Comment on above: Performed By: #### W SR, PRCFUN, AT3ASY, PRSCLT, SERIMM, HOMCYS, IRON, FERR, B12, SERFOL, ANA1, HSCRP ####[address] [phone] Potassium molar conc 3.9 mmol/L Normal 3.7-5.1 [facility] Comment on above: Performed By: #### W SR, PRCFUN, AT3ASY, PRSCLT, SERIMM, HOMCYS, IRON, FERR, B12, SERFOL, ANA1, HSCRP ####[address] [phone] Protein mass conc 7.2 g/dL Normal 6.3-8.0 [facility] Comment on above: Performed By: #### W SR, PRCFUN, AT3ASY, PRSCLT, SERIMM, HOMCYS, IRON, FERR, B12, SERFOL, ANA1, HSCRP ####[address] [phone] Sodium molar conc 139 mmol/L Normal 136-144 [facility] Comment on above: Performed By: #### W SR, PRCFUN, AT3ASY, PRSCLT, SERIMM, HOMCYS, IRON, FERR, B12, SERFOL, ANA1, HSCRP ####[address] [phone] Urea nitrogen mass conc 14 mg/dL Normal 7-21 [facility] Comment on above: Performed By: #### W SR, PRCFUN, AT3ASY, PRSCLT, SERIMM, HOMCYS, IRON, FERR, B12, SERFOL, ANA1, HSCRP ####[address] [phone] Factor V Leiden PCRon 2017 FV Leiden Report (NOTE) Normal [facility] Comment on above: Result Comment: [facility] Pathologist: Alvina Sotomayor M.D., Ph.D.Factor V Leiden [...] hybridization probes. Performed By: #### F VLEI ####[place] [id number] [place], [place] [phone] Ferritinon 04-20-2018 Ferritin [Mass/volume] in Serum or Plasma 53.7 ng/mL Normal 14.7-205.1 [facility] Comment on above: Performed By: #### W SR, PRCFUN, AT3ASY, PRSCLT, SERIMM, HOMCYS, IRON, FERR, B12, SERFOL, ANA1, HSCRP ####[place] [address] [place], [place] [phone] Folate, Serumon 04-20-2018 Folate [Mass/volume] in Serum or Plasma 10.0 ng/mL Normal >4.7 [facility] Comment on above: Performed By: #### W SR, PRCFUN, AT3ASY, PRSCLT, SERIMM, HOMCYS, IRON, FERR, B12, SERFOL, ANA1, HSCRP ####[place] [address], [place] [phone] Homocysteineon 04-20-2018 Homocysteine 9.5 umol/L Normal <15.1 [facility] Comment on above: Performed By: #### W SR, PRCFUN, AT3ASY, PRSCLT, SERIMM, HOMCYS, IRON, FERR, B12, SERFOL, ANA1, HSCRP ####[place] [address] [place], [place] [phone] Immunoglobulins GAMon 2017 IgA mass conc 237 mg/dL Normal 78-391 [facility] Comment on above: Performed By: #### W SR, PRCFUN, AT3ASY, PRSCLT, SERIMM, HOMCYS, IRON, FERR, B12, SERFOL, ANA1, HSCRP ####[place] [address] [place], [place] [phone] IgG mass conc 1220 mg/dL Normal 717-1411 [facility] Comment on above: Performed By: #### W SR, PRCFUN, AT3ASY, PRSCLT, SERIMM, HOMCYS, IRON, FERR, B12, SERFOL, ANA1, HSCRP ####[place] [address] [place], [place] [phone] IgM mass conc 139 mg/dL Normal 53-334 [facility] Comment on above: Performed By: #### W SR, PRCFUN, AT3ASY, PRSCLT, SERIMM, HOMCYS, IRON, FERR, B12, SERFOL, ANA1, HSCRP ####[address], [place] [phone] Iron and TIBCon 04-20-2018 Iron mass conc 36 ug/dL Low 41-186 [facility] Comment on above: Performed By: #### W SR, PRCFUN, AT3ASY, PRSCLT, SERIMM, HOMCYS, IRON, FERR, B12, SERFOL, ANA1, HSCRP ####[address] [phone] TIBC 271 ug/dL Normal 232-386 [facility] Comment on above: Performed By: #### W SR, PRCFUN, AT3ASY, PRSCLT, SERIMM, HOMCYS, IRON, FERR, B12, SERFOL, ANA1, HSCRP ####[address] [phone] Transferrin Saturatn 13 % Low 15-57 [facility] Comment on above: Performed By: #### W SR, PRCFUN, AT3ASY, PRSCLT, SERIMM, HOMCYS, IRON, FERR, B12, SERFOL, ANA1, HSCRP ####[address] [phone] LDon 04-20-2018 LD 197 U/L Normal 135-214 [facility] Comment on above: Performed By: #### W SR, PRCFUN, AT3ASY, PRSCLT, SERIMM, HOMCYS, IRON, FERR, B12, SERFOL, ANA1, HSCRP ####[address] [phone] Lupus Anticoag Panelon 04-20 aPTT Coag time (Bld) 26.7 s Normal 23.0-32.4 [facility] Comment on above: Result [...] laboratory APTT reagent in use throughout the [facility]. Performed By: #### L UPUSP ####[address] [phone] aPTT Coag time (Bld) 32.4 s Normal <35.0 [facility] Comment on above: Performed By: #### L UPUSP ####[address] [phone] aPTT Coag time (Bld) 30.6 s Normal <33.2 [facility] Comment on above: Performed By: #### L UPUSP ####[address] [phone] aPTT Coag time (Bld) 33.0 s Normal 24.4-33.4 [facility] Comment on above: Result Comment: Resu lt rechecked. Performed By: #### L UPUSP ####[address] [phone] Beta2 Glycoprot IgG <9 Normal <20 [facility] Comment on above: Result Comment: < 20 SGU Tjddllel71-91 SGU Low Positive> 80 SGU High PositiveThese results were obtained with the TrustID QUANTA Lite B2 GPI IgG DAYNA. B2 GPI IgG values obtained with different manufacturers' assay methods may not be used interchangeably. The magnitude of the reported IgG levels cannot be correlated to an endpoint titer. Performed By: #### L UPUSP ####[address], [place] [phone] DRVVT 1:1 Mix 41.3 sec Normal 32.7-46.7 [facility] Comment on above: Performed By: #### L UPUSP ####[place] [address], [place] [phone] DRVVT Confirm Ratio 1.06 Normal <1.21 [facility] Comment on above: Performed By: #### L UPUSP ####[place] [address], [place] [phone] DRVVT Screen 42.3 sec Normal 32.7-46.7 [facility] Comment on above: Performed By: #### L UPUSP ####[address] [phone] Hex Phase Confirm 47.7 sec Normal 41.8-54.9 [facility] Comment on above: Performed By: #### L UPUSP ####[place] [address] [place] [phone] Hex Phase Delta 6.7 delta sec Normal <9.1 [facility] Comment on above: Performed By: #### L UPUSP ####[address] [phone] Hex Phase Screen 54.5 sec Normal 45.0-59.9 [facility] Comment on above: Performed By: #### L UPUSP ####[address] [phone] IgA Cardiolipin Ab. <9 Normal 0-11 [facility] Comment on above: Result Comment: <12 APL Ubslnxwn81-81 APL Equivocal>40 APL PositiveThe following results were obtained with an TrustID QUANTA Lite LAVON IgA III DAYNA. Cardiolipin IgA values obtained with different manufacturers' assay methods may not be used interchangeably. The magnitude of the reported IgA levels cannot be correlated to an endpoint titer. Performed By: #### L UPUSP ####[facility] [place], [place] [phone] IgG Cardiolipin Ab. <9 Normal 0-9 [facility] Comment on above: Result Comment: <10 GPL [id number] GPL Equivocal>40 GPL PositiveThe following results were obtained with the [employer] QUANTA Lite LAVON IgG III DAYNA. Cardiolipin IgG values obtained with the different manufacturers' assay methods may not be used interchangeably. The magnitude of the reported IgG levels cannot be correlated to an endpoint titer. Performed By: #### L UPUSP ####[address] [phone] IgM Cardiolipin Ab. 9 MPL Normal 0-11 [facility] Comment on above: Result Comment: <12 MPL Ehitraet44-13 MPL Equivocal>40 MPL PositiveThe following results were obtained with the Inova QUANTA Lite LAVON IgM III DAYNA. Cardiolipin IgM values obtained with different manufacturers' assay methods may not be used interchangeably. The magnitude of the reported IgM levels cannot be correlated to an endpoint titer. Performed By: #### L UPUSP ####[address] [phone] INR Coag RelTime (Bld) 1.0 {INR} Normal 0.9-1.3 [facility] Comment on above: Result Comment: Maya min K Antagonist (VKA) Therapeutic Range: INR 2 to 3 (Target INR of 2.5)Note: For patients treated with VKA drugs, such as warfarin, the [employer] 2012 Guideline recommends [...] of 2.5 to 3.5 (target INR of 3).Guyatt GH, et al. Chest 2012, 141:7S-47SNishimlouise RA, et al. [facility] 2017, 70: 252-289 Performed By: #### L UPUSP ####[place] [address] [place], [place] [phone] Interpretation (NOTE) Normal [facility] Comment on above: Result Comment: Perf [...] 74:1185 (1995). Performed By: #### L UPUSP ####[facility] [address] [place], [place] [phone] PNP Negative Normal Negative [facility] Comment on above: Performed By: #### L UPUSP ####[facility] [place], [place] [phone] Protein mass conc g/dL Normal <20 [facility] Comment on above: Result Comment: < 20 SMU Nxtatdld74-86 SMU Low Positive> 80 SMU High PositiveThese results were obtained with the [employer] QUANTA Lite B2 GPI IgM DAYNA. B2 GPI IgM values obtained with different manufacturers' assay methods may not be used interchangeably. The magnitude of the reported IgM levels cannot be correlated to an endpoint titer. Performed By: #### L UPUSP ####[id number] [place], [place] [phone] PT Sec 10.1 sec Normal 9.7-13.0 [facility] Comment on above: Performed By: #### L UPUSP ####[address] [phone] Thrombin Time 16.1 sec Normal <18.6 [facility] Comment on above: Performed By: #### L UPUSP ####[address] [phone] Protein C Functionalon 04-20 Protein mass conc 104 % Normal 76-147 [facility] Comment on above: Performed By: #### W SR, PRCFUN, AT3ASY, PRSCLT, SERIMM, HOMCYS, IRON, FERR, B12, SERFOL, ANA1, HSCRP ####[id number] [place], [place] [phone] Protein S Clottableon 2017 Protein S Clottable 108 % Normal 59-131 [facility] Comment on above: Performed By: #### W SR, PRCFUN, AT3ASY, PRSCLT, SERIMM, HOMCYS, IRON, FERR, B12, SERFOL, ANA1, HSCRP ####[id number] [place], [place] [phone] Prothrombin Gene PCRon 04-20 PT Gene Report (NOTE) Normal [facility] Comment on above: Result Comment: Perf [facility] Pathologist: Alvina Sotomayor M.D., Ph.D.PT Gene Mutation Result: NORMALPT Gene Mutation Interpretation: The DNA sample is negative for [id number] point mutation in the 3' untranslated region of theprothrombin gene.This is not associated with an increased risk ofvenous thrombosis.Venous thrombosis is a multifactorial disorder, andother causes of venous thrombosis are not excluded.PT Gene Mutation Method: This assay was performed by polymerase chainreaction and fluorescence monitoring using hybridization probes. Performed By: #### P TGEN ####[facility] [address] [place], [place] [phone] Remote CBCDIF (for [facility] use o nly)on 04-20-2018 Abs Baso <0.03 Normal 0.00-0.10 [facility] Abs Crosby 0.48 k/uL Normal 0.00-0.86 [facility] Abs Neut 3.86 k/uL Normal 1.45-7.50 [facility] Basophils/100 WBC Auto (Bld) 0.3 % Normal [facility] Eosinophils Auto #/vol (Bld) 0.09 10*3/uL Normal 0.00-0.45 [facility] Eosinophils/100 WBC Auto (Bld) 1.4 % Normal [facility] Erythrocyte distribution width Auto Ratio (RBC) 11.9 % Normal 11.5-15.0 [facility] Hematocrit Auto Volume Fraction (Bld) 37.0 % Normal 36.0-46.0 [facility] Hemoglobin mass conc (Bld) 12.6 g/dL Normal 11.5-15.5 [facility] Lymphocytes Auto #/vol (Bld) 2.07 10*3/uL Normal 1.00-4.00 [facility] Lymphocytes/100 WBC Auto (Bld) 31.7 % Normal [facility] MCH Auto Entitic mass (RBC) 33.2 pG Normal 26.0-34.0 [facility] MCHC Auto mass conc (RBC) 34.1 g/dL Normal 30.5-36.0 [facility] MCV Auto Entitic volume (RBC) 97.4 fL Normal 80.0-100.0 [facility] Monocytes/100 WBC Auto (Bld) 7.4 % Normal [facility] Neutrophils/100 WBC Auto (Bld) 59.2 % Normal [facility] Platelet mean volume Auto Entitic volume (Bld) 10.7 fL Normal 9.0-12.7 [facility] Platelets Auto #/vol (Bld) 226 10*3/uL Normal 150-400 [facility] RBC Auto #/vol (Bld) 3.80 10*6/uL Low 3.90-5.20 [facility] WBC Auto #/vol (Bld) 6.52 10*3/uL Normal 3.70-11.00 [facility] Sed Rate Westergrenon 2017 Sed Rate Westergren 15 mm/hr Normal 0-20 [facility] Comment on above: Performed By: #### W SR, PRCFUN, AT3ASY, PRSCLT, SERIMM, HOMCYS, IRON, FERR, B12, SERFOL, ANA1, HSCRP ####[facility] [place], [place] [phone] Ultra-sensitive CRPon 2017 Protein mass conc 11.1 mg/L High <3.1 [facility] Comment on above: Result Comment: (NOT E)hsCRP < 1.0 mg/L, relative risk is lowhsCRP 1.0-3.0 mg/L, relative risk is averagehsCRP > 3.0 mg/L, relative risk is highReference:Trevin TA, Salvador GA, Raman RW, et al. Markers of Inflammationand Cardiovascular Disease. Application to Clinical and PublicHealth Practice. A Statement for Healthcare Professionals From theFirelands Regional Medical Center South Campusers for Disease Control and Prevention and the [place] HeartAssociation. Circulation 2003;107:499-511. Performed By: #### W SR, PRCFUN, AT3ASY, PRSCLT, SERIMM, HOMCYS, IRON, FERR, B12, SERFOL, ANA1, HSCRP ####[facility] [place], [place] [phone] Vitamin B12on 04-20-2018 Cobalamin (Vitamin B12) mass conc 445 pg/mL Normal 232-1245 [facility] Comment on above: Performed By: #### W SR, PRCFUN, AT3ASY, PRSCLT, SERIMM, HOMCYS, IRON, FERR, B12, SERFOL, ANA1, HSCRP ####[facility] [address] [place], [place] [phone] CNOVSPon 04-15-2018 CNOVS Visit (SP) Office (HEMACL) PRINCE ALLENAZUL Jennifer ([id number]) 1990 FDate Time Provider Department04/15/18 3:15 PM LATASHA HU HEMACL During your visit today, we recorded the following information about you: Temperature Pulse Respiration Blood pressure 98.8 degrees 82/minute 16/minute 130/83 Weight Height 118.3 kg 1.524 Emmettabhijit Gene 04/15/2018 3:44 PM SignedPt states that she has been having some abdominal cramping for about 2-3 yearsnow. 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) (primaryencounter diagnosis)Mildly elevated dilute Idalia viper venom time in a otherwise murxwbr74-jvhq-npn female with no history suggestive of bleeding [...] considered for referral to hematologic subspecialist at [facility].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.We'll also check for lupus screen with an ROSANA.Mild anemiaWe'll check iron studies, B-12, folate, sedimentation rate.Visit (SP) Office on 04/15/18-FACTOR V LEIDEN/PCR-PROTHROMBIN GENE PCR-PROTEIN S CLOTTABLE-PROTEIN C FUNCT-ANTITHROMBIN III-LUPUS ANTICOAG PL-B 2 GPI IGG AND DBH-PHTF-ZCFXLVSWOES WI-ZLTJYLCQKTRN-CPV PANEL BLOOD SCRN-IRON + TIBC-FERRITIN BLD-VITAMIN B12 BLOOD-FOLATE SERUM-IMMUNOGLOBULINS YUSRA-LD LACTATE DEHYDRO-SED RATE [id number]-[id number] ULTRA SEN-ACTIVATED PTT-PROTHROMBIN TIME/PT-CBC + DIFF (FOR REMOTE [facility] USE)-COMP METABOLIC PANEL-ACTIVATED PTT-PROTHROMBIN TIME/PT-B 2 GPI IGG AND TTG-BDFO-ROUNGWBBUHM AB-LUPUS ANTICOAG PL Return in about 4 [...] of midol and excedrin. She works [employer] in [place].Her mother has a history of cervical cancer [...] plan. I answered allquestions satisfactorily..Rowdy Hu D.O.Medical OncologistStuart, [place]Referring Provider: CHAY CASTRO [[id number]]Allergies As of Date: 04/15/2018 Noted Allergy ReactionIODINE 04/15/2018 2 - RashDate Reviewed: 04/15/2018Reviewed by: Zee Mills - Fully AssessedReason for Visit: Consult [173] Cmt: Abnormal labsPrimary Visit Diagnosis: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) [R79.1]Order(s):FACTOR V LEIDEN/PCR [SQFVLEID] Order #: [id number] FUTURE PROTHROMBIN GENE PCR [SQPTGENE] Order #: [id number] FUTURE PROTEIN S CLOTTABLE [SQPRSCLT] Order #: [id number] FUTURE PROTEIN C FUNCT [SQPRCFUN] Order #: [id number] FUTURE ANTITHROMBIN III [ZLPA4YFL] Order #: [id number] FUTURE LUPUS ANTICOAG PL [SQLUPUSP] Order #: [id number] FUTURE B 2 GPI IGG AND IGM [QFF5HCJL] Order #: [id number] FUTURE ANTI-CARDIOLIPIN AB [SQCARDIO] Order #: [id number] FUTURE HOMOCYSTEINE [SQHOMCYS] Order #: [id number] FUTURE ROSANA PANEL BLOOD SCRN [SQANA1] Order #: [id number] FUTURE IRON + TIBC [SQIRON] Order #: [id number] FUTURE FERRITIN BLD [SQFERR] Order #: [id number] FUTURE VITAMIN B12 BLOOD [SQB12] Order #: [id number] FUTURE FOLATE SERUM [SQSERFOL] Order #: [id number] FUTURE IMMUNOGLOBULINS YUSRA [SQSERIMM] Order #: [id number] FUTURE LD LACTATE DEHYDRO [SQLD6] Order #: [id number] FUTURE SED RATE WESTERGREN [SQWSR] Order #: [id number] FUTURE C-REACTIVE ULTRA SEN [SQHSCRP] Order #: [id number] FUTURE ACTIVATED PTT [SQPTT] Order #: [id number] FUTURE PROTHROMBIN TIME/PT [SQPT] Order #: [id number] FUTURE CBC + DIFF (FOR [facility]OTE [facility] USE) [SQRCBCDF] Order #: [id number] FUTURE COMP METABOLIC PANEL [SQCMP] Order #: [id number] FUTURE ACTIVATED PTT [SQPTT] Order #: [id number] FUTURE PROTHROMBIN TIME/PT [SQPT] Order #: [id number] FUTURE B 2 GPI IGG AND IGM [TLF1GYKK] Order #: [id number] FUTURE ANTI-CARDIOLIPIN AB [SQCARDIO] Order #: [id number] FUTURE LUPUS ANTICOAG PL [SQLUPUSP] Order #: [id number] FUTUREDisposition: Return in about 4 months (around [...] by LATASHA HU DO on 04/19/18 Normal [facility] PROGRESSon 04-15-2018 Protein mass conc HNO ID: [id number] thor: Latasha HuService: (none)Author Type: PhysicianType: Progress NotesFiled: 04/19/2018 9:38 AMNote Text:PATIENT NAME: Azul Llanos EtzwilerMRN: [id number] PHYSICIAN: Chay Castro DO[address] [address]ARWOUVM CARE PHYSICIAN: No primary care provider on file.OTHER PHYSICIANS:CHIEF COMPLAINT: 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)ASSESSMENT/PLAN: (R79.1) 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) (primaryencounter diagnosis)Mildly elevated dilute Idalia viper venom time in a otherwise bauepol31-xevb-chm female with no history suggestive of bleeding [...] considered for referral to hematologic subspecialist at [facility].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.We'll also check for lupus screen with an ROSANA.Mild anemiaWe'll check iron studies, B-12, folate, sedimentation rate.Visit (SP) Office on 04/15/18-FACTOR V LEIDEN/PCR-PROTHROMBIN GENE PCR-PROTEIN S CLOTTABLE-PROTEIN C FUNCT-ANTITHROMBIN III-LUPUS ANTICOAG PL-B 2 GPI IGG AND XOR-XBEE-ZQFQDUPCVQY SW-ZDDFEUFFLNFK-PPW PANEL BLOOD SCRN-IRON + TIBC-FERRITIN BLD-VITAMIN B12 BLOOD-FOLATE SERUM-IMMUNOGLOBULINS YUSRA-LD LACTATE DEHYDRO-SED RATE IZWOWQRYQH-F-EFTKPIRK ULTRA SEN-ACTIVATED PTT-PROTHROMBIN TIME/PT-CBC + DIFF (FOR REMOTE [facility] USE)-COMP METABOLIC PANEL-ACTIVATED PTT-PROTHROMBIN TIME/PT-B 2 GPI IGG AND BKG-GAPQ-LQGAZAJGKNK AB-LUPUS ANTICOAG PL Return in about 4 [...] of midol and excedrin. Sheworks in a [employer] in [place].Her mother has a history of cervical cancer [...] plan.I answered all questions satisfactorily..Rowdy Hu D.O.Medical OncologistEureka Springs Hospital Vital Signs Date Time Vital Sign Value Performing Clinician Hedy miller 10-25-2023 16:49-0500 Diastolic blood pressure 78 mm[Hg] Alexx Jean [facility] 10-25-2023 16:49-0500 Heart rate 74 /min Alexx Jean [facility] 10-25-2023 16:49-0500 Mean blood pressure 97 mm[Hg] Alexx Jean [facility] 10-25-2023 16:49-0500 Respiratory rate 18 /min Alexx Jean [facility] 10-25-2023 16:49-0500 SaO2% (BldA) [Mass fraction] 100 % Alexx Jean [facility] 10-25-2023 16:49-0500 Systolic blood pressure 134 mm[Hg] Alexx Jean [facility] 10-25-2023 16:30-0500 Hourly Rounding Alexx Jean [facility] 10-25-2023 16:30-0500 Promise to Return Alexx Jean [facility] 10-25-2023 16:00-0500 Diastolic blood pressure 82 mm[Hg] Alexx Jean [facility] 10-25-2023 16:00-0500 Heart rate 81 /min Alexx Jean [facility] 10-25-2023 16:00-0500 SaO2% (BldA) [Mass fraction] 94 % Alexx Dolle [facility] 10-25-2023 16:00-0500 Systolic blood pressure 127 mm[Hg] Alexx Dolle [facility] 10-25-2023 15:28-0500 Hourly Rounding Alexx Dolle [facility] 10-25-2023 15:28-0500 Promise to Return Alexx Pena [facility] 10-25-2023 15:02-0500 Diastolic blood pressure 138 mm[Hg] Alexx Dolle [facility] 10-25-2023 15:02-0500 Heart rate 94 /min Alexx Dolle [facility] 10-25-2023 15:02-0500 Mean blood pressure 142 mm[Hg] Alexx Dolle [facility] 10-25-2023 15:02-0500 Respiratory rate 18 /min Alexx Dolle [facility] 10-25-2023 15:02-0500 SaO2% (BldA) [Mass fraction] 99 % Alexx Dolle [facility] 10-25-2023 15:02-0500 Systolic blood pressure 150 mm[Hg] Alexx Dolle [facility] 10-25-2023 14:20-0500 Body temperature 98.24 [degF] Alexx Dolle [facility] 10-25-2023 14:20-0500 Heart rate 112 /min Alexx Dolle [facility] 10-20-2023 15:33-0500 Blood Pressure Location Glenn Pakpilar [facility] 10-20-2023 15:33-0500 Diastolic blood pressure 84 mm[Hg] Glenn Candy [facility] 10-20-2023 15:33-0500 Heart rate 95 /min Glenn Candy [facility] 10-20-2023 15:33-0500 SaO2% (BldA) [Mass fraction] 98 % Glenn Candy [facility] 10-20-2023 15:33-0500 Systolic blood pressure 117 mm[Hg] Glenn Nyekala [facility] 08-15-2023 09:18-0500 Blood Pressure Location Alexx Gupta [facility] 08-15-2023 09:18-0500 Diastolic blood pressure 76 mm[Hg] Alexx Leroyy [facility] 08-15-2023 09:18-0500 Heart rate 92 /min Alexx Mourany [facility] 08-15-2023 09:18-0500 Respiratory rate 16 /min Alexx Mourany [facility] 08-15-2023 09:18-0500 Systolic blood pressure 119 mm[Hg] Alexx Mourany [facility] 08-12-2023 11:20-0500 Body temperature 98.06 [degF] Alexx Mourany [facility] 08-12-2023 11:20-0500 Diastolic blood pressure 90 mm[Hg] Alexx Mourany [facility] [place] 08-12-2023 11:20-0500 Heart rate 114 /min Alexx Mourany [facility] [place] 08-12-2023 11:20-0500 Systolic blood pressure 137 mm[Hg] Alexx Mourany [facility] [place] 08-11-2023 13:20-0500 Diastolic blood pressure 85 mm[Hg] Glenn Candy [facility] 08-11-2023 13:20-0500 Heart rate 100 /min Glenn Popeyeofferson [facility] 08-11-2023 13:20-0500 SaO2% (BldA) [Mass fraction] 100 % Glenn Popeyeofferson [facility] 08-11-2023 13:20-0500 Systolic blood pressure 140 mm[Hg] Glenn Nyemacyerson [facility] 08-06-2023 11:15-0500 Heart rate 77 /min Alexx Mourany [facility] 08-06-2023 11:15-0500 SaO2% (BldA) [Mass fraction] 97 % Alexx Mourany [facility] 08-06-2023 11:15-0500 Respiratory rate 16 /min Alexx Mourany [facility] 08-06-2023 11:14-0500 Diastolic blood pressure 87 mm[Hg] Alexx Mourany [facility] 08-06-2023 11:14-0500 Mean blood pressure 98 mm[Hg] Alexx Mourany [facility] 08-06-2023 11:14-0500 Systolic blood pressure 118 mm[Hg] Alexx Mourany [facility] 08-06-2023 09:59-0500 Heart rate 79 /min Alexx Manciaurany [facility] 08-06-2023 09:59-0500 SaO2% (BldA) [Mass fraction] 94 % Alexx Mourany [facility] 08-06-2023 09:59-0500 Diastolic blood pressure 82 mm[Hg] Alexx Mourany [facility] 08-06-2023 09:59-0500 Mean blood pressure 98 mm[Hg] Alexx Mourany [facility] 08-06-2023 09:59-0500 Systolic blood pressure 129 mm[Hg] Alexx Mourany [facility] 08-06-2023 09:59-0500 Respiratory rate 16 /min Alexx Mourany [facility] 08-06-2023 09:50-0500 Blood Pressure Location Alexx Mourany [facility] 08-06-2023 09:50-0500 Body temperature 98.06 [degF] Alexx Mourany [facility] 08-06-2023 09:50-0500 Diastolic blood pressure 92 mm[Hg] Alexx Mourany [facility] 08-06-2023 09:50-0500 Heart rate 80 /min Alexx Mourany [facility] 08-06-2023 09:50-0500 Mean blood pressure 103 mm[Hg] Alexx Mourany [facility] 08-06-2023 09:50-0500 Respiratory rate 20 /min Alexx Mourany [facility] 08-06-2023 09:50-0500 SaO2% (BldA) [Mass fraction] 93 % Alexx Mourany [facility] 08-06-2023 09:50-0500 Systolic blood pressure 124 mm[Hg] Alexx Mourany [facility] 08-06-2023 09:40-0500 Blood Pressure Location Alexx Mourany [facility] 08-06-2023 09:40-0500 Mean blood pressure 100 mm[Hg] Alexx Mourany [facility] 08-06-2023 09:40-0500 Respiratory rate 20 /min Alexx Mourany [facility] 08-06-2023 09:35-0500 Blood Pressure Location Alexx Mourany [facility] 08-06-2023 09:35-0500 Mean blood pressure 102 mm[Hg] Alexx Mourany [facility] 08-06-2023 09:35-0500 Respiratory rate 24 /min Alexx Mourany [facility] 08-06-2023 09:20-0500 Respiratory rate 19 /min Alexx Mourany [facility] 08-06-2023 06:11-0500 Mean blood pressure 79 mm[Hg] Alexx Mourany [facility] 08-06-2023 06:11-0500 Heart rate 84 /min Alexx Mourany [facility] 08-06-2023 06:08-0500 Body temperature 97.88 [degF] Alexx Mourany [facility] 07-25-2023 09:28-0500 Blood Pressure Location Alexx Mourany [facility] 07-25-2023 09:28-0500 Diastolic blood pressure 74 mm[Hg] Alexx Mourany [facility] 07-25-2023 09:28-0500 Heart rate 86 /min Alexx Mourany [facility] 07-25-2023 09:28-0500 Mean blood pressure 89 mm[Hg] Alexx Mourany [facility] 07-25-2023 09:28-0500 Systolic blood pressure 120 mm[Hg] Alexx Mourany [facility] 07-25-2023 09:28-0500 Heart rate 78 /min Alexx Mourany [facility] 07-25-2023 09:28-0500 SaO2% (BldA) [Mass fraction] 99 % Alexx Mourany [facility] 07-25-2023 09:28-0500 Respiratory rate 18 /min Alexx Mourany [facility] 07-25-2023 09:27-0500 Blood Pressure Location Alexx Mourany [facility] 07-25-2023 09:27-0500 Body temperature 97.88 [degF] Alexx Mourany [facility] 07-25-2023 09:27-0500 Diastolic blood pressure 83 mm[Hg] Alexx Mourany [facility] 07-25-2023 09:27-0500 Mean blood pressure 97 mm[Hg] Alexx Mourany [facility] 07-25-2023 09:27-0500 Systolic blood pressure 125 mm[Hg] Alexx Mourany [facility] 07-21-2023 14:40-0500 Diastolic blood pressure 81 mm[Hg] Alexx Mourany [facility] [place] 07-21-2023 14:40-0500 Heart rate 93 /min Alexx Manciapedro [facility] [place] 07-21-2023 14:40-0500 Systolic blood pressure 121 mm[Hg] Alexx Manciagracedeuce [facility] [place] 07-08-2023 13:57-0400 Blood Pressure Location Melissa Nunez [facility] 07-08-2023 13:57-0400 Body temperature 96.98 [degF] Melissa Nunez [facility] 07-08-2023 13:57-0400 Diastolic blood pressure 74 mm[Hg] Melissa Castillometz [facility] 07-08-2023 13:57-0400 Heart rate 87 /min Melissa Nunez [facility] 07-08-2023 13:57-0400 Respiratory rate 16 /min Melissa Nunez [facility] 07-08-2023 13:57-0400 Systolic blood pressure 111 mm[Hg] Melissa Nunez [facility] 06-23-2023 12:53-0400 Diastolic blood pressure 68 mm[Hg] Alexx Jean [facility] 06-23-2023 12:53-0400 Heart rate 79 /min Alexx Jean [facility] 06-23-2023 12:53-0400 Mean blood pressure 76 mm[Hg] Alexx Dolle [facility] 06-23-2023 12:53-0400 Respiratory rate 24 /min Alexx Pena [facility] 06-23-2023 12:53-0400 SaO2% (BldA) [Mass fraction] 100 % Alexx Jean [facility] 06-23-2023 12:53-0400 Systolic blood pressure 91 mm[Hg] Alexx Jean [facility] 06-23-2023 12:30-0400 Diastolic blood pressure 66 mm[Hg] Alexx Jean [facility] 06-23-2023 12:30-0400 Heart rate 81 /min Alexx Jean [facility] 06-23-2023 12:30-0400 Mean blood pressure 78 mm[Hg] Alexx Jean [facility] 06-23-2023 12:30-0400 Respiratory rate 13 /min Alexx Jean [facility] 06-23-2023 12:30-0400 SaO2% (BldA) [Mass fraction] 100 % Alexx Jean [facility] 06-23-2023 12:30-0400 Systolic blood pressure 102 mm[Hg] Alexx Jean [facility] 06-23-2023 12:00-0400 Diastolic blood pressure 67 mm[Hg] Alexx Jean [facility] 06-23-2023 12:00-0400 Heart rate 70 /min Alexx Jean [facility] 06-23-2023 12:00-0400 Mean blood pressure 83 mm[Hg] Alexx Jean [facility] 06-23-2023 12:00-0400 SaO2% (BldA) [Mass fraction] 99 % Alexx Jean [facility] 06-23-2023 12:00-0400 Systolic blood pressure 115 mm[Hg] Alexx Jean [facility] 06-23-2023 09:50-0400 Respiratory rate 20 /min Alexx Pena [facility] 06-23-2023 09:23-0400 Body temperature 98.24 [degF] Alexx Pena [facility] 06-23-2023 09:23-0400 Heart rate 81 /min Alexx Pena [facility] 06-23-2023 09:23-0400 Respiratory rate 16 /min Alexx Pena [facility] 09-14-2022 10:30-0500 Body height 157.48 cm Thania Joseline Other [facility] Other 09-14-2022 10:30-0500 Body mass index (BMI) [Ratio] 49.74 kg/m2 Thania Joseline Other [facility] Other 09-14-2022 10:30-0500 Body temperature 97.7 [degF] Thania Joseline Other [facility] Other 09-14-2022 10:30-0500 Body weight 123.38 kg Thania Joseline Other [facility] Other 09-14-2022 10:30-0500 Diastolic blood pressure 97 mm[Hg] Thania Joseline Other [facility] Other 09-14-2022 10:30-0500 Respiratory rate 18 /min Thania Joseline Other [facility] Other 09-14-2022 10:30-0500 SaO2% (BldA) [Mass fraction] 100 % Thania Trevizo Other [facility] Other 09-14-2022 10:30-0500 Systolic blood pressure 140 mm[Hg] Thania Pughmond Other [facility] Other 05-31-2022 16:10-0400 Body height 157.48 cm Mayra Astorga Other [facility] Other 05-31-2022 16:10-0400 Body mass index (BMI) [Ratio] 48.98 kg/m2 Mayra Astorga Other [facility] Other 05-31-2022 16:10-0400 Body temperature 97.9 [degF] Mayra Astorga Other [facility] Other 05-31-2022 16:10-0400 Body weight 121.47 kg Mayra Astorga Other [facility] Other 05-31-2022 16:10-0400 Diastolic blood pressure 84 mm[Hg] Mayra Astorga Other [facility] Other 05-31-2022 16:10-0400 Respiratory rate 18 /min Mayra Astorga Other [facility] Other 05-31-2022 16:10-0400 SaO2% (BldA) [Mass fraction] 99 % Mayra Astorga Other [facility] Other 05-31-2022 16:10-0400 Systolic blood pressure 129 mm[Hg] Mayra Astorga Other [facility] Other Encounters Encounter Date Encounter Type Care Provider Facility Start: 11-24-2023 End: 11-25-2023 ambulatory Heather Antunez MD Facility:[facility] [place] Start: 11-12-2023 End: 11-12-2023 ambulatory ZOYA PETER Not Available Start: 10-25-2023 End: 10-25-2023 Emergency department patient visit Alexx Pena [facility] Start: 10-25-2023 End: 10-25-2023 Emergency department patient visit Alexx Pena [facility] Start: 10-22-2023 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 Start: 10-08-2023 End: 10-08-2023 ambulatory ZOYA PETER Not Available Start: 10-01-2023 End: 10-01-2023 ambulatory Tez Angel Facility:[facility] Start: 10-01-2023 End: 10-01-2023 ambulatory MD Tez Angel Work Phone: [facility] Work Phone: Start: 10-01-2023 End: 10-01-2023 Departed Referred MD Tez Angel Work Phone: [facility] Start: 09-17-2023 End: 09-18-2023 ambulatory Glenn Gupta [facility] Start: 09-17-2023 End: 09-17-2023 Patient encounter procedure Glenn Gupta [facility] Start: 09-15-2023 End: 09-15-2023 ambulatory CHAY CASTRO Not Available Start: 08-27-2023 End: 08-27-2023 ambulatory TEZ ANGEL Not Available Start: 08-15-2023 End: 08-16-2023 ambulatory Alexx Leroyy Facility:[facility] Start: 08-15-2023 End: 08-15-2023 Patient encounter procedure Alexx Gupta [facility] Start: 08-12-2023 End: 08-13-2023 ambulatory Alexx Gupta Facility:[facility] Start: 08-12-2023 End: 08-12-2023 Patient encounter procedure Alexx Gupta [facility] Start: 08-11-2023 End: 08-12-2023 ambulatory Glenn Gupta Facility[facility] Start: 08-11-2023 End: 08-11-2023 Patient encounter procedure Glenn Gupta [facility] Start: 08-06-2023 End: 08-06-2023 ambulatory Alexx Gupta Facility[facility] Start: 08-06-2023 End: 08-06-2023 Admission to same day surgery center Alexx Gupta [facility] Start: 07-25-2023 End: 07-26-2023 ambulatory Alexx Gupta Facility[facility] Start: 07-25-2023 End: 07-25-2023 Patient encounter procedure Alexx Leroyy [facility] Start: 2023 End: 07-25-2023 ambulatory TEZ HANKINSR Facility:[facility] Start: 2023 End: 2023 Patient encounter procedure TEZ ANGEL [facility] Start: 07-21-2023 End: 07-22-2023 ambulatory Alexx Gupta Facility:[facility] Start: 07-21-2023 End: 07-21-2023 Patient encounter procedure Alexx Gupta [facility] Start: 07-18-2023 ambulatory Melissa Nunez Facility :[facility] Start: 07-14-2023 End: 07-15-2023 ambulatory Melissa Nunez Facility[facility] Start: 07-14-2023 End: 07-14-2023 Patient encounter procedure Melissa Nunez [facility] Start: 07-08-2023 End: 07-09-2023 [facility]ulatory [facility] Start: 07-08-2023 End: 07-08-2023 Patient encounter procedure Melissa Nunez [facility] Start: 07-07-2023 End: 07-08-2023 ambulatory Alexx Gupta Facility:[facility] Start: 07-07-2023 End: 07-07-2023 Patient encounter procedure Alexx Gupta [facility] Start: 06-25-2023 ambulatory [facility] Start: 06-23-2023 End: 06-23-2023 Emergency department patient visit Alexx Pena Facility[facility] Start: 06-23-2023 End: 06-23-2023 Emergency department patient visit Alexx Pena [facility] Start: 01-29-[address] CHAY CASTRO [...] examination without abnormal findings DR TEZ ANGEL [facility] Start: 10-09-2022 End: 10-10-[address] TEZ ANGEL Facility:[facility] Start: 10-09-2022 End: 10-10-2022 Encounter for general adult medical examination without abnormal findings DR TEZ NAGEL Facility:[facility] Start: 09-14-2022 End: 09-14-2022 ambulatory Thania Trevizo Other [facility] Other Start: 09-14-2022 Office outpatient visit 15 minutes Thania Trevizo [facility] Start: 07-23-2022 End: [address] YONAS ANTON . Facility:[facility] Start: 07-16-[address] YONAS ANTON . Faci lity:[facility] Start: 06-04-2022 End: 06-05-[address] YONAS ANTON . Facility:[facility] Start: 05-31-2022 End: 05-31-2022 ambulatory Mayra Astorga Other [facility] Other Start: 05-31-2022 Office outpatient ne w 30 minutes Mayra Astorga [facility] Start: 05-02-2022 End: 05-03-[address] CHAY CASTRO . Facility:[facility] Start: 04-09-2022 End: 04-09-[address] CHAY CASTRO . Facility:[facility] Start: 08-06-2018 End: 08-07-2018 Patient encounter procedure SHANT ROMERO [facility] Start: 07-28-2018 End: 07-28-2018 Patient encounter procedure SHANT ROMERO [facility] Start: 07-28-2018 End: 07-28-2018 Patient encounter procedure LATASHA HU [facility] Start: 07-08-2018 End: 07-08-2018 Patient encounter procedure MINDY GARCIA [facility] Start: 04-20-2018 End: 04-21-2018 Patient encounter procedure LATASHA HU [facility] Start: 04-15-2018 End: 04-20-2018 Patient encounter procedure LATASHA HU [facility] Procedures Date Procedure Procedure Detail Performing Clinician Start: 10-01-2023 Hysterectomy Glenn Gupta Start: 08-06-2023 Robot assisted laparoscopic cholecystectomy Alexx Gupta Colposcopy Alexx Pena Fasciotomy of foot Alexx morrell H/O: tubal ligation Alexx meneses Laparoscopy Alexx Pena Loop electrosurgical excision procedure Alexx Pena Plan of Treatment Date Care Activity Detail Author Start: 02-25-2024 End: 02-25-2024 Patient encounter procedure 02/25/2024 9:30 AM EDT Office Visit [facility] [address] [place] [address] Tez Angel MD [address] [place] [address] [facility] Start: 11-12-2023 End: 11-12-2023 ambulatory 11/12/2023 11:20 AM EST Visit [facility] [address] [place] [phone] Zoya Peter PA [address] [place], [place] [id number] [facility] Start: 05-09-2023 Influenza vaccination Influenza Vacc ine (#1) [facility] Immunizations Immunization Date Immunization Notes Care Provider Fa cility 12-02-2021 SARS-CoV-2 mRNA (offhvwysvdb-bikc-ljza ose) vaccine Alexx Alonso [facility] 01-05-2021 SARS-CoV-2 (COVID-19 ) Ad26 vaccine, recombinant Alexx Pena [facility] [place] 12-15-2020 SARS-CoV-2 (COVID-19 ) Ad26 vaccine, recombinant Alexx Pena [facility] [place] 01-22-2002 measles, mumps and rubella virus vaccine Alexx Alonso [facility] NEGATED: Highlighted row has not occurred!07-07-2023 influenza virus vaccine, unspecified formulation Alexx Alonso [facility] Payers Date Payer Category Payer Self-pay 2023 Unknown 2022 Medicaid [id number] 2022 Medicaid [place] [employer] [id number] 2022-Present [address] [place] [address] [id number] [id number] 1989 Unknown [id number] 2..840.1.188404.3.579.2.593 1989 Unknown [id number] 2..840.1.343476.3.579.2.593 1989 Unknown [id number] 2.16.840.1.623933.3.579.2.593 1989 Unknown [id number] 2.16.840.1.702231.3.579.2.593 1989 Unknown [id number] 2.16.840.1.191960.3.579.2.593 1989 Unknown [id number] 2.16.840.1.497467.3.579.2.593 1989 Unknown [id number] 2.16.840.1.259021.3.579.2.593 1989 Unknown [id number] 2.16.840.1.613645.3.579.2.593 1989 Unknown [id number] 2.16.840.1.515063.3.579.2.593 1989 Unknown [id number] 2.16.840.1.485498.3.579.2.593 1989 Unknown [id number] 2.16.840.1.890358.3.579.2.593 1989 Unknown [id number] 2..840.1.095585.3.579.2.593 1989 Unknown [id number] 2.16.840.1.574821.3.579.2.727 1989 Unknown [id number] 2.16.840.1.036640.3.579.2.727 1989 Unknown [id number] 2.16.840.1.148681.3.579.2.727 1989 Unknown [id number] 2.16.840.1.524192.3.579.2.727 1989 Unknown [id number] 2.16.840.1.991706.3.579.2.727 1989 Unknown [id number] 2.16.840.1.210001.3.579.2.727 1989 Unknown [id number] 2.16.840.1.180963.3.579.2.727 1989 Unknown [id number] 2.16.840.1.194676.3.579.2.727 1989 Unknown [id number] 2.16.840.1.677933.3.579.2.727 1989 Unknown [id number] 2.16.840.1.056019.3.579.2.727 1989 Unknown [id number] 2.16.840.1.034614.3.579.2.727 1989 Unknown [id number] 2.16.840.1.667556.3.579.2.727 1989 Unknown [id number] 2.16.840.1.916956.3.579.2.727 1989 Unknown [id number] 2.16.840.1.313212.3.579.2.727 1989 Unknown [id number] 2.16.840.1.186766.3.579.2.727 1989 Unknown [id number] 2.16.840.1.085257.3.579.2.727 1989 Unknown [id number] 2.16.840.1.882445.3.579.2.9 1989 Unknown [id number] 2.16.840.1.664820.3.579.2.9 1989 Unknown [id number] 2.16.840.1.900457.3.579.2.9 1989 Unknown [id number] 2.16.840.1.028491.3.579.2.1259 1989 Unknown [id number] 2.16.840.1.631134.3.579.2.196 1959 Unknown [id number] 2.16.840.1.050861.19 Social History Date Type Detail Facility Unknown if ever smoked [facility] Other Start: 08-21-2023 End: 08-27-2023 Sex Assigned At [facility] Start: 06-20-2023 Tobacco smoking status Smokele ss tobacco user within last [address] [facility] Start: 07-08-2023 End: 10-20-2023 Tobacco smoking status Never smoked tobacco (finding) [facility] Tobacco smoking status Smoker (finding) [facility] [place] Tobacco Cigarettes [facility] Comment on above: social smoker, coupl e times per month Tobacco smoking status No Smokin g Status Entered [facility] Start: 1990 Sex Assigned At Female F [facility] Start: 08-27-2023 [facility] History of [...] Only a little [facility] (I/We) worried wheth er (my/our) food would run out before [...] Assessment Result Facility 10-25-2023 Functional Status N/A [facility] 10-20-2023 Functional Status No [facility] 08-15-2023 Functional Status N/A [facility] [place] 08-11-2023 Functional Status No [facility] 07-25-2023 Functional Status No [facility] 07-08-2023 Functional Status N/A [facility] 06-23-2023 Functional Status N/A [facility] Clinical Notes 05-31-2022 to 10-25-2023 Note Date & Type Note Facility 10-25-2023 Hospital Discharg e instructions Follow Up Care 10/25/2023 14:17:21 With:Chay CASTRO Address: [facility] [address] , [place] [address]- Business (1) When:10/28/2023 16:39:28 With:TEZ ANGEL Address: [address] [place] [address] Business (1) When:Within 3 Day(s) [facility] 10-25-2023 Evaluation + Plan note Extrac shankar [...] Panel by PCR 07/08/[address] [facility]11-29-2023 Evaluation + Plan noteExtracted from: Title:ANES Post-operative Note - General Author: Mauricio Chang Jr., DO Date:08/06/23 Plan Transfer/Discharge: Transfer/Discharge Discharge when meets criteria ( From PACU to Ambulatory Surgery Unit, and To home ). Extracted from: Title:ANES Pre-operative Note - Adult Author:Mauricio Guerrero Jr., DO Date:08/06/23 Plan [place] [employer]hesi[employer] (ASA) physical status classification: Class IV. Anesthetic Preoperative Plan: Anesthesia General. Future Appointments Appointment Date:08/11/2023 01:30:00 PM Scheduled Provider:Candy SOTELO, Glenn Holbrook [facility] Type:Cardiology New Patient (FT) Appointment Date:08/15/2023 09:20:00 AM Scheduled Provider:Alexx Gupta MD Location:[facility] Appointment Type: Post Op 15 Future Scheduled Tests Laboratory* Fecal WBC Lactoferrin 07/08/23 * Giardia lamblia, Direct Detection EIA 07/08/23 * O & P Exam, Routine 07/08/23 * Clostridium Difficile PCR 07/08/23 * Enteric Panel by PCR 07/08/[address] [facility]11-29-2023 Hospital Discharge instructions Patient Education 08/06/2023 [...] Follow these instructions at home: Medicines Take bzjr-bwu-tpfdwku and prescription medicines only as told by [...] to keep your urine pale yellow. ?Take nskr-ysl-arxbrqi or prescription medicines. ?Eat foods that are [...] and water are not available, use hand clerical manager. ?Change your dressing as told by your [...] provider. Document Revised: 02/26/2022 Document Reviewed: 02/26/2022 Elsevier Patient Education 2022 [employer]. [facility] 07/21/2023 15:18:13 With:Alexx Gupta Address: [facility] [address], [address] [phone] Business (1) When: Unknown Comments:Appointment has already been scheduled [facility]11-29-2023 NoteHistory and Physical Update H&P Reviewed. [...] Brother. Hypertension: Mother, Father and Brother. TIA: Mother.[facility]11-20-2023 Note [id number] Hospital Discharge instructions Patient Education [...] food choices, such as grocery stores and [employer]. What are the signs or symptoms? The [...] and how much exercise you get. Take zpyl-nsb-kbcifei and prescription medicines only as told by [...] provider. Document Revised: 04/02/2022 Document Reviewed: 04/02/2022 [employer] Patient Education 2022 [employer]. [facility] [place] 10-31-2023 Hospital Discharge instructions Patient Education 07/08/2023 [...] water added (diluted fruit juice). Eat bland, xxln-py-tjevqr foods in small amounts as you are able. These foods include bananas, applesauce, rice, lean meats, toast, and crackers. Avoid drinking fluids that contain a lot of sugar or caffeine, such as energy drinks, sports drinks, and soda. Avoid alcohol. Avoid spicy or fatty foods. General instructions Take kxnu-swe-oiyztvn and prescription medicines only as told by your health care provider. Rest at home while you recover. Drink enough fluid to keep your urine pale yellow. Breathe slowly and deeply when you feel nauseous. Avoid smelling things that have strong odors. Wash your hands often using soap and water for at least 20 seconds. If soap and water are not available, use hand clerical manager. Make sure that everyone in your household [...] recommendations for eating and drinking and take rxfr-bdp-ckyrwik and prescription medicinesonly as told by your [...] provider. Document Revised: 03/01/2022 Document Reviewed: 03/01/2022 [employer] Patient Education 2022 [employer]. Follow Up Care 06/25/2023 15:34:03 With:Melissa Nunez CNP Address: When:1 to 2 weeks Comments:Following EGD/Colonoscopy. [facility] 10-31-2023 Evaluation + Plan note Future Scheduled Tests Laboratory* Fecal WBC Lactoferrin 07/08/23 * Giardia lamblia, Direct Detection EIA 07/08/23 * O & P Exam, Routine 07/08/23 * Clostridium Difficile PCR 07/08/23 * Enteric Panel by PCR 07/08/23 Radiology* US Gallbladder 07/08/23 [facility] 10-31-2023 Evaluation + Plan note Future Scheduled Tests Laboratory* Fecal WBC Lactoferrin 07/08/23 * Giardia lamblia, Direct Detection EIA 07/08/23 * O & P Exam, Routine 07/08/23 * Clostridium Difficile PCR 07/08/23 * Enteric Panel by PCR 07/08/[address] [facility]10-16-2023 Hospital Discharge instructions Patient Education 06/23/2023 12:53:51 [...] medicines. These include steroids, antibiotics, and some fyjx-kgo-ipcknfc medicines, such as aspirin or ibuprofen. Having [...] Follow these instructions at home: Medicines Take oenr-xdc-liahoyk and prescription medicines only as told by [...] provider. Document Revised: 12/29/2021 Document Reviewed: 12/29/2021 [employer] Patient Education 2022 [employer]. Follow Up Care 06/23/2023 09:20:57 With:Michael Patino Address: [address], [facility] [address] [phone] Business (1) When:06/26/2023 12:35:39 With:TEZ ANGEL Address: [address] [place] [address] Business (1) When:06/26/2023 12:35:[address] [facility]10-16-2023 Evaluation + Plan noteExtracted from: Title:ED [...] XR Chest Single View [facility]04-02-2023 NotePROCEDURE: US PELVIS AND TRANSVAG, 12/06/2022 [...] Electronically authenticated by: MEGAN HINOJOSA Date: 2022-12-08 11:58[facility]02-14-2023 NoteCONSULTATION CONSULTATION DATE: 10/22/2022 CHIEF COMPLAINT: [...] stopped the steroids for approximately a month.[facility] [id number] Evaluation note* Encounter Date Diagnosis Assessment Notes [...] no improvement in 2 to 3 days [facility] Other 11-15-2022 NoteCONSULTATION CONSULTATION DATE: 07/23/2022 CHIEF [...] like to proceed. CC: Tez Angel M.D.[facility] [id number] NoteCONSULTATION PROCEDURE DATE: 07/23/2022 PREOPERATIVE DIAGNOSIS: Scar [...] will be followed up in the office.[facility] 06-27-2022 History general Narrative - Reported* Type Description Date Medical History ANXIETY AND DEPRESSION Medical History GERD Medical History RIGHT FOOT PAIN Surgical History LEP PROCEDURE 2018 Surgical History LAPROSCOPY PROCEDURE 2018 Surgical History MULTIPLE SURGERIES 06/2019 [facility] Other 09-27-2022 NoteCONSULTATION CONSULTATION DATE: 06/04/2022 CHIEF [...] in the office subsequent to authorization. [facility] [id number] Evaluation note* Encounter Date Diagnosis Assessment Notes [...] understanding and is agreeable to treatment plan [facility] Other Evaluation + Plan note Future Appointments Appointment Date:07/08/2023 02:00:00 PM Scheduled Provider:Melissa Nunez CNP [facility] Appointment Type:BADH Follow Up [facility] Evaluation + Plan note Future Appointments Appointment Date:07/21/2023 02:40:00 PM Scheduled Provider:Alexx Gupta MD Location:[facility] Appointment Type: New 30 Future Scheduled Tests Laboratory* Fecal WBC Lactoferrin 07/08/23 * Giardia lamblia, Direct Detection EIA 07/08/23 * O & P Exam, Routine 07/08/23 * Clostridium Difficile PCR 07/08/23 * Enteric Panel by PCR 07/08/[address] [facility] Future Appointments Appointment Date:2023 07:00:00 AM Scheduled Provider: [facility] App[facility] Type:CT Sinus/Orbits/Maxillofacial (FT) Appointment Date:07/25/2023 09:30:00 AM Scheduled Provider: Location:[facility] Appointment Type:Surgical PAT FT Appointment Date:08/06/2023 01:00:00 PM Scheduled Provider: Location:[facility] Appointment Type:Surgery FT Appointment Date:08/11/2023 01:30:00 PM Scheduled Provider:Glenn Gupta MD [facility] Type:Cardiology New Patient (FT) Appointment Date:08/15/2023 09:20:00 AM Scheduled Provider:Alexx Gupta MD Location:[facility] Appointment Type: Post Op 15 Future Scheduled Tests Laboratory* Fecal WBC Lactoferrin 07/08/23 * Giardia lamblia, Direct Detection EIA 07/08/23 * O & P Exam, Routine 07/08/23 * Clostridium Difficile PCR 07/08/23 * Enteric Panel by PCR 07/08/23 Radiology* CT Maxillofacial w/o Contrast 07/24/23 [facility] Evaluation + Plan note Future Appointments Appointment Date:07/25/2023 09:30:00 AM Scheduled Provider: [facility] Appointment Type:Surgical PAT FT Appointment Date:08/06/2023 01:00:00 PM Scheduled Provider: Location:[facility] Appointment Type:Surgery FT Appointment Date:08/11/2023 01:30:00 PM Scheduled Provider:Glenn Gupta MD [facility] Type:Cardiology New Patient (FT) Appointment Date:08/15/2023 09:20:00 AM Scheduled Provider:Alexx Gupta MD Location:[facility] Appointment Type:GS Post Op 15 Future Scheduled Tests Laboratory* Fecal WBC Lactoferrin 07/08/23 * Giardia lamblia, Direct Detection EIA 07/08/23 * O & P Exam, Routine 07/08/23 * Clostridium Difficile PCR 07/08/23 * Enteric Panel by PCR 07/08/[address] [facility] Future Appointments Appointment Date:08/06/2023 01:00:00 PM Scheduled Provider: [facility] Appointment Type:Surgery FT Appointment Date:08/11/2023 01:30:00 PM Scheduled Provider:Glenn Gupta MD [facility] Type:Cardiology New Patient (FT) Appointment Date:08/15/2023 09:20:00 AM Scheduled Provider:Alexx Gupta MD Location:[facility] Appointment Type:GS Post Op 15 Future Scheduled Tests Laboratory* Fecal WBC Lactoferrin 07/08/23 * Giardia lamblia, Direct Detection EIA 07/08/23 * O & P Exam, Routine 07/08/23 * Clostridium Difficile PCR 07/08/23 * Enteric Panel by PCR 07/08/[address] [facility] [address] [facility] Future Appointments Appointment Date:08/15/2023 09:20:00 AM Scheduled Provider:Alexx Gupta MD Location:[facility] Appointment Type:GS Post Op 15 Appointment Date:10/20/2023 03:45:00 PM Scheduled Provider:Glenn Gupta MD [facility] Type:Cardiology Follow Up (FT) Future Scheduled Tests Laboratory* Fecal WBC Lactoferrin 07/08/23 * Giardia lamblia, Direct Detection EIA 07/08/23 * O & P Exam, Routine 07/08/23 * Clostridium Difficile PCR 07/08/23 * Enteric Panel by PCR 07/08/23 Radiology* EC Stress Echo Complete w/ Contrast 08/11/[address] [facility] [address] Future Appointments Appointment Date:08/15/2023 09:20:00 AM Scheduled Provider:Alexx Gupta MD Location:[facility] Appointment Type:[place] [address] Appointment Date:10/20/2023 03:45:00 PM Scheduled Provider:Glenn Gupta MD [facility] Type:Cardiology Follow Up (FT) Future Scheduled Tests Laboratory* Fecal WBC Lactoferrin 07/08/23 * Giardia lamblia, Direct Detection EIA 07/08/23 * O & P Exam, Routine 07/08/23 * Clostridium Difficile PCR 07/08/23 * Enteric Panel by PCR 07/08/23 Radiology* EC Stress Echo Complete w/ Contrast 08/11/23 [facility] Evaluation + Plan note Future Appointments Appointment Date:10/20/2023 03:45:00 PM Scheduled Provider:Glenn Gupta MD [facility] Type:Cardiology Follow Up (FT) Future Scheduled Tests Laboratory* Fecal WBC Lactoferrin 07/08/23 * Giardia lamblia, Direct Detection EIA 07/08/23 * O & P Exam, Routine 07/08/23 * Clostridium Difficile PCR 07/08/23 * Enteric Panel by PCR 07/08/23 Radiology* EC Stress Echo Complete w/ Contrast 08/11/23 [facility] Evaluation + Plan note Future Appointments Appointment Date:10/20/2023 03:45:00 PM Scheduled Provider:Glenn Gupta MD [facility] Type:Cardiology Follow Up (FT) Future Scheduled Tests Laboratory* Fecal WBC Lactoferrin 07/08/23 * Giardia lamblia, Direct Detection EIA 07/08/23 * O & P Exam, Routine 07/08/23 * Clostridium Difficile PCR 07/08/23 * Enteric Panel by PCR 07/08/[address] Work Phone: Evaluation note* Diagnosis [...] PROCEDURE 2018 Surgical History MULTIPLE SURGERIES 06/2019 [facility] Other Hospital course Narrative No data available for this section [facility] No data available for this section [facility] General Surgery [place] Progress note No data available for this section [facility] Summary Purpose Family History No Family [...] section and content) DATE CREATED AUTHOR 08/17/2018 [facility] DATE CREATED AUTHOR AUTHOR'S ORGANIZ ATION 01/16/2023 [facility] DATE CREATED AUTHOR AUTHOR'S ORGANIZ ATION 10/27/2023 [facility] DATE CREATED AUTHOR AUTHOR'S ORGANIZ ATION 10/28/[address] [facility] DATE CREATED AUTHOR AUTHOR'S ORGANIZ ATION 11/13/2023 [facility] DATE CREATED AUTHOR AUTHOR'S ORGANIZ ATION 11/29/2023 [facility] REASON FOR VISIT (unrecogniz ed section [...] Cm cameron 2023 End: October 01, 2023 [employer] Relationship Specialty Start Date End Date Tze Angel MD PCP - General Family Medicine [...] BE BASED ON THE PRIMARY CLINICAL RECORDS. [employer] provides no warranty or guarantee of the accuracy or completeness of information in this document.
--- NOTE | 2023-12-03 09:48 | PM.CN ---
Consult Note: HPI Data of Consult Patient: known to practice within the last 3 years Requesting Physician: Suellen Armijo NP Primary Care Provider: Tez Zaragoza MD Consult Narrative Reason for consult: F/u Narrative: Azul Huertas a pleasant 32 year old female presents for evaluation and management of right leg pain. Describes it as pins/needles/throbbing. Intermittently swells and has sensitivity to touch, clothes are very irritating. Has noticed this pain developed after foot surgery. At this time, she is noticing mild benefit from transdermal therapeutic cream. Recently underwent right lumbar sympathetic nerve block with 95% improvement for 1 week, now greater than 50% improvement ongoing. Finds benefit to current medication regimen without side effects. Pain today 1/10 increasing to 4/10 at its worst. cc:: CC: Suellen Armijo NP Review of Systems ROS Status of ROS 10 or more systems reviewed and unremarkable except as noted in history and below Musculoskeletal Reports: back pain and extremity pain [facility] Medical History (Updated 09/19/23 @ 11:04 by Christiana King NP) Lower extremity edema ?R60.0 - Localized edema (ICD-10) Panic attacks ?F41.0 - Panic disorder [episodic paroxysmal anxiety] (ICD-10) Depression ?F32.A - Depression, unspecified (ICD-10) Anxiety ?F41.9 - Anxiety disorder, unspecified (ICD-10) COVID-19 (09/09/23) ?U07.1 - COVID-19 (ICD-10) Snores ?R06.83 - Snoring (ICD-10) Gall stone ?K80.20 - Calculus of gallbladder without cholecystitis without obstruction (ICD-10) Dysmenorrhea ?N94.6 - Dysmenorrhea, unspecified (ICD-10) Dyspareunia Pelvic pain ?R10.2 - Pelvic and perineal pain (ICD-10) Menorrhagia ?N92.0 - Excessive and frequent menstruation with regular cycle (ICD-10) Back pain ?M54.9 - Dorsalgia, unspecified (ICD-10) Electronic cigarette use ?Z78.9 - Other specified health status (ICD-10) Sleep apnea ?G47.30 - Sleep apnea, unspecified (ICD-10) CRPS (complex regional pain syndrome), lower limb (2019) ?G90.529 - Complex regional pain syndrome I of unspecified lower limb (ICD-10) Neuropathy ?G62.9 - Polyneuropathy, unspecified (ICD-10) Vertigo ?R42 - Dizziness and giddiness (ICD-10) Migraine ?G43.909 - Migraine, unspecified, not intractable, without status migrainosus (ICD-10) Constipation ?K59.00 - Constipation, unspecified (ICD-10) GERD (gastroesophageal reflux disease) ?K21.9 - Gastro-esophageal reflux disease without esophagitis (ICD-10) Dyspnea on exertion ?R06.09 - Other forms of dyspnea (ICD-10) Activity intolerance ?R68.89 - Other general symptoms and signs (ICD-10) PCOS (polycystic ovarian syndrome) ?E28.2 - Polycystic ovarian syndrome (ICD-10) Hypothyroidism ?E03.9 - Hypothyroidism, unspecified (ICD-10) Delayed recovery from anesthesia Postoperative nausea and vomiting ?R11.2 - Nausea with vomiting, unspecified (ICD-10) ?Z98.890 - Other specified postprocedural states (ICD-10) Surgical History History of cholecystectomy (~07/2023) ?Z90.49 - Acquired absence of other specified parts of digestive tract (ICD-10) History of salpingectomy (03/12/23) ?Z90.79 - Acquired absence of other genital organ(s) (ICD-10) History of esophagogastroduodenoscopy (EGD) ?Z98.890 - Other specified postprocedural states (ICD-10) History of foot surgery (2019) ?Z98.890 - Other specified postprocedural states (ICD-10) H/O LEEP ?Z98.890 - Other specified postprocedural states (ICD-10) Family History Other CAD (coronary artery disease) Family history of COPD (chronic obstructive pulmonary disease) Family history of DVT Family history of diabetes mellitus Family history of heart disease Family history of hypertension Family history of myocardial infarction Family history of pulmonary embolism Family history of stroke Rectal adenocarcinoma Social History Within the past year, how often did you have a drink containing alcohol: never Score interpretation: A score less than 3 is consistent with normal alcohol consumption. Smoking status: Current some day smoker Nicotine containing products detail: vaped for 4 years every day but quit 2020. Non-prescribed substance use: denies use Previous occupational history: unemployed Highest level of school completed/degree received: high school graduate Meds Home Medications and Allergies Home Medications ?Medication ?Instructions ?Recorded ?Confirmed ?Type bupropion HCl 150 mg 24 hr tablet, 150 mg PO .qd 03/04/23 11/24/23 History extended release bupropion HCl 300 mg 24 hr tablet, 300 mg PO QDAY 03/04/23 11/24/23 History extended release cholecalciferol (vitamin D3) 50 50 mcg PO QDAY 03/04/23 11/24/23 History mcg (2,000 unit) tablet hydroxyzine HCl 25 mg tablet 50 mg PO Q6H PRN nausea and 03/04/23 11/24/23 History vomiting levothyroxine 100 mcg tablet 100 mcg PO QDAY 03/04/23 11/24/23 History meclizine 25 mg tablet 25 mg PO QID PRN motion sickness 03/04/23 11/24/23 History ondansetron 4 mg disintegrating 4 mg PO Q6H PRN nausea and vomiting 03/04/23 11/24/23 History tablet pantoprazole 40 mg tablet,delayed 40 mg PO QDAY 03/04/23 11/24/23 History release potassium chloride 20 mEq 20 meq PO QDAY PRN unknown 03/04/23 11/24/23 History tablet,extended release sumatriptan succinate 25 mg tablet 25 mg PO Q2H PRN migraine headache 03/04/23 11/24/23 History gabapentin 100 mg capsule 100 mg PO DAILY 08/21/23 11/24/23 History biotin 5 mg capsule 5 mg PO DAILY 09/19/23 11/24/23 History furosemide 40 mg tablet 40 mg PO DAILY 09/19/23 11/24/23 History magnesium 250 mg tablet 250 mg PO DAILY 09/19/23 11/24/23 History topiramate 50 mg tablet 50 mg PO Q12H 09/19/23 11/24/23 History ibuprofen 800 mg tablet 800 mg PO Q8H PRN pain 14 days #40 10/01/23 11/24/23 Rx tabs Allergies Allergy/AdvReac Type Severity Reaction Status Date / Time povidone-iodine Allergy Severe Rash Verified 11/24/23 07:25 [From Scrub Care Povidone Iodine] adhesive Allergy Verified 11/24/23 07:25 hydrocodone [From Vicodin] AdvReac Severe Nausea Verified 11/24/23 07:25 Exam Constitutional Documenting provider has reviewed patient's vital signs: yes Common normals: no apparent distress, oriented x3, healthy appearing, alert and well nourished General appearance: cooperative HENMT Common normals: normocephalic, hearing grossly normal bilaterally and moist oral mucous membranes Head and scalp: normocephalic Eye Common normals: PERRL Pupil: PERRL Neck & C-Spine Common normals: full ROM General: normal visual inspection Chest Common normals: inspection of chest normal Respiratory Common normals: normal respiratory effort, no retractions and no use of accessory muscles Back & Pelvis Lumbar spine/lower back: pain with ROM Other: bilateral facet loading pain over L3-S1 Extremity Other: edema to RLE, decreased sensation, hyperalgesia, reddened appearance, chronic neuropathy. Neuro Common normals: oriented x3, CN's II-XII intact bilaterally, moves all extremities, no focal motor deficits, no sensory deficits noted and deep tendon reflexes 2+ bilaterally Sensorium/orientation: alert Motor exam: strength 5/5 throughout and no movement abnormalities noted Psych Common normals: mental status grossly normal, thought process normal, cooperative, affect normal, speech normal and activity/motor behavior normal Speech: normal speech Thought process: normal thought process Results Additional Findings Additional findings: If on a controlled substance or opioids, I have checked an [place]AR[place] report on this patient and there are no aberrancies noted in the prescribing history.??If on a controlled substance or opioid a drug screen was completed and reviewed within the last year, and if there has not been a drug screen completed we ordered one today to monitor higher risk, state monitored pain medication use. As part of providing excellent, safe, comprehensive care, the following was completed at our patient's visit: 1. A medication reconciliation and review to ensure accurate knowledge of current/active medications, including asking our patients to inform us about any [id number] medications or herbal remedies/nutritional supplements/alternative remedies. 2. A review to specifically ensure our patients have had annual screening for screening for depression, screening for tobacco use, and screening for unhealthy alcohol use. For concerning screenings had a discussion with the patient, provided patient education, and recommended follow-up with primary care provider when appropriate. If patient noted with a risk of falling, they received education on strength, gait, and balance training to prevent future risk of falling. Assessment and Plan Assessment and Plan (1) Right foot pain: (2) Complex regional pain syndrome type 2 of right lower extremity: Plan right lx sympathetic nerve block initially 95% pain relief for 1 week, now >50% improvement ongoing consider series of right lx sympathetic nerve block in the future education provided on spinal cord stimulator continue gabapentin 100mg HS f/u 3 months, sooner if needed
== END 2023-12-03 09:33 | disposition home or self-care (01) ==
LOC: PM 09:32
PROVIDERS: PCP Family Medicine; Visit Provider Nurse Practitioner
DX: M79.671 Pain in right foot (principal); G57.71 Causalgia of right lower limb
CPT/HCPCS: G0463

== ENCOUNTER 2024-02-17 10:53 | Outpatient (OUT) | payer MEDICAID, SELFPAY ==
[2024-02-17 11:17] LABS: Basophils Percent Auto 0.6 % (0.2-2.0); Eosinophils Absolute Auto 0.1 10^3/uL (0.0-0.7); Eosinophils Percent Auto 1.1 % (0.9-7.0); Hematocrit 39.3 % (36.0-48.0); Hemoglobin 12.5 g/dL (12.0-16.0); Immature Granulocytes Abs Auto 0.01 10^3/uL (0.00-0.03); Immature Granulocytes Pct Auto 0.2 % (0.0-0.5); Lymphocytes Absolute Auto 1.8 10^3/uL (1.2-3.8); Mean Corpuscular HGB Conc 31.8 g/dL (29.9-35.2); Mean Corpuscular Hemoglobin 32.4 pg (26.7-34.0); Mean Corpuscular Volume 101.8 fL (81.0-99.0); Mean Platelet Volume 10.5 fL (9.5-13.5); Monocytes Absolute Auto 0.6 10^3/uL (0.3-0.8); Monocytes Percent Auto 8.7 % (1.7-12.0); Neutrophils Absolute Auto 4.1 10^3/uL (1.4-6.5); Neutrophils Percent Auto 61.4 % (43.0-75.0); Platelet Count 223 10^3/uL (150-450); Red Blood Count 3.86 10^6/uL (4.20-5.40); Red Cell Distribution Width 11.9 % (11.0-15.0); White Blood Count 6.6 10^3/uL (4.0-11.0)
[2024-02-17 12:01] LABS: Free T4 1.15 ng/dL (0.76-1.46)
[2024-02-17 12:09] LABS: Alanine Aminotransferase 24 U/L (14-59); Albumin Globulin Ratio 0.8; Albumin Level 3.2 g/dL (3.4-5.0); Alkaline Phosphatase 110 U/L (46-116); Anion Gap 13.3; Aspartate Amino Transferase 13 U/L (15-37); BUN Creatinine Ratio 12.8; Bilirubin Direct 0.1 mg/dL (0.0-0.2); Bilirubin Total 0.4 mg/dL (0.2-1.0); Calcium 8.7 mg/dL (8.5-10.1); Carbon Dioxide 24.4 mmol/L (21.0-32.0); Chloride 106 mmol/L (98-107); Estimated GFR (African America >60 (>=60); Estimated GFR (Non-African Ame 57 (>=60); Globulin 3.8 g/dL; Glucose 108 mg/dL (74-106); Potassium 3.7 mmol/L (3.5-5.1); Sodium 140 mmol/L (136-145); Thyroid Stimulating Hormone 2.052 uIU/mL (0.358-3.740)
== END 2024-02-17 10:54 | disposition home or self-care (01) ==
LOC: LAB 10:55
PROVIDERS: PCP Family Medicine; Visit Provider Family Medicine
DX: R60.0 Localized edema (principal); E66.01 Morbid (severe) obesity due to excess calories; Z68.42 Body mass index [BMI] 45.0-49.9, adult
CPT/HCPCS: 36415; 80048; 80076; 84439; 84443; 84481; 85025

== ENCOUNTER 2024-03-01 12:41 | Outpatient (OUT) | payer MEDICAID, SELFPAY ==
--- NOTE | 2024-03-01 12:49 | CA_ITS ---
Patient Name: NITHYA SARKAR MR#: [id number] : 1990 Exam Date: 03/01/2024 Ordering Doctor: DR SHAHAB ANGEL . ECHOCARDIOGRAM REPORT PROCEDURE: CA ECHO DOPPLER COMPLETE INDICATIONS: BLE Edema, Shortness of breath COMPARISON: None. DESCRIPTION: COMPLETE ECHOCARDIOGRAM Real-time transthoracic echocardiography with 2D, M-mode, spectral and color flow Doppler performed. QUALITY: Technical quality was good. LEFT VENTRICLE: Normal chamber size. Normal left ventricular wall thickness. Global left ventricular systolic function is normal. LV EF: Estimated left ventricular ejection fraction is 55%. DIASTOLIC: Normal diastolic function. ATRIAL SEPTUM: LEFT ATRIUM: Normal chamber size. RIGHT ATRIUM: Normal chamber size. RIGHT VENTRICLE: Normal chamber size. Normal right ventricular systolic function. TRICUSPID VALVE: Normal mobility and thickness. No stenosis with trivial regurgitation. No evidence of pulmonary hypertension. RVSP 28 mmHg MITRAL VALVE: Normal mobility and thickness. No evidence of mitral valve stenosis. There is no mitral annular calcification. Trivial mitral regurgitation. AORTIC VALVE: Normal trileaflet appearance. No visible sclerosis. Normal leaflet mobility. No evidence of aortic valve stenosis. No aortic regurgitation. AORTIC ROOT: Normal diameter and appearance. PULMONIC VALVE: Normal thickness and mobility. No stenosis. Trivial regurgitation. PERICARDIUM: No evidence of pericardial effusion. IVC: Collapses with inspirations. Normal size. PLEURA: CONCLUSION: 1. Normal left ventricular size and systolic function. LVEF is 55%. 2. Normal right ventricular size and systolic function. 3. No significant valvular dysfunction. 4. Normal diastolic function. 5. Normal right-sided pressures. Adult Echocardiography Procedure Report Left Ventricle LVEDD (3.7 - 5.6 cm): 5.25 cm LVESD (2.2 - 4.0 cm): 3.35 cm LVIVS thickness (0.6 - 1.2 cm): 0.92 cm LVPW thickness (0.5 - 1.0 cm): 0.90 cm e': 0.12 m/s E - e': 5.93 LVOT Max Gradient: 2.66 mm[Hg] LVOT Area (cm2): 0.82 m/s Peak Velocity (LVOT): 0.82 m/s Mean Velocity (LVOT): 0.64 m/s LVOT Diameter 2.07 cm Left Ventricular Ejection Fraction: 55 % Left Atrium LA Volume Index (2D A2C): 22.67 ml/m2 Left Atrium Systolic Dimension: 3.55 cm Mitral Valve MV E to A Ratio: 0.94 Mitral Valve A-Wave Peak Velocity: 0.78 m/s Mitral Valve E-Wave Peak Velocity: 0.73 m/s Right Ventricle RV Internal Diastolic Dimension: 3.71 cm Aorta AO Root Diam: 2.71 cm Ascending Ao Diam: 2.68 cm Aortic Valve AoV Area (Peak Tigre): 2.22 cm2, 2.15 cm2 AoV Area (VTI): 2.04 cm2, 1.89 cm2 Peak Velocity(Antegrade Flow): 1.28 m/s, 1.20 m/s Peak Gradient(Antegrade Flow): 6.56 mm[Hg], 5.78 mm[Hg] Mean Velocity(Antegrade Flow): 0.85 m/s, 0.83 m/s Mean Gradient(Antegrade Flow): 3.31 mm[Hg], 3.15 mm[Hg] Velocity Time Integral: 29.82 cm, 25.49 cm Tricuspid Valve Peak Velocity (Regurgitant Flow): 2.49 m/s, 2.19 m/s, 2.41 m/s Pulmonic Valve Mean Gradient: 2.14 mm[Hg], 2.04 mm[Hg] Mean Velocity: 0.69 m/s, 0.67 m/s Peak Velocity: 0.94 m/s Peak Gradient: 3.50 mm[Hg], 3.50 mm[Hg] Right Atrium Right Atrium Systolic Pressure: 33.25 ml, 33.25 ml Dictated by: Lan Mcmahan M.D. on 03/01/2024 at 19:29 Approved by: Lan Mcmahan M.D. on 03/01/2024 at 19:32
== END 2024-03-01 12:42 | disposition home or self-care (01) ==
LOC: CARD 12:42
PROVIDERS: PCP Family Medicine; Visit Provider Family Medicine
DX: R60.0 Localized edema (principal); R06.02 Shortness of breath
CPT/HCPCS: 93306

== ENCOUNTER 2024-03-04 12:20 | Outpatient (OUT) | payer MEDICAID, SELFPAY ==
--- NOTE | 2024-03-04 12:32 | PM.CN ---
Consult Note: HPI Data of Consult Patient: known to practice within the last 3 years Requesting Physician: Suellen Armijo NP Primary Care Provider: Tze Zaragoza MD Consult Narrative Reason for consult: F/u Narrative: Azul Huertas a pleasant 32 year old female presents for evaluation and management of right leg pain. Describes it as pins/needles/throbbing. Intermittently swells and has sensitivity to touch, clothes are very irritating. Has noticed this pain developed after foot surgery. At this time, she is noticing mild benefit from transdermal therapeutic cream. Previously underwent right lumbar sympathetic nerve block with 95% improvement for 1 week, and greater than 50% improvement for 3 months. Finds benefit to current medication regimen without side effects. Pain today 3/10 increasing to 7/10 with standing walking activity, improves with elevation and sleep. Patient noticing an increase in swelling of right leg since last visit. cc:: CC: Suellen Armijo NP Review of Systems ROS Status of ROS 10 or more systems reviewed and unremarkable except as noted in history and below Musculoskeletal Reports: back pain and extremity pain [facility] Medical History (Updated 09/19/23 @ 11:04 by Christiana King NP) Lower extremity edema ?R60.0 - Localized edema (ICD-10) Panic attacks ?F41.0 - Panic disorder [episodic paroxysmal anxiety] (ICD-10) Depression ?F32.A - Depression, unspecified (ICD-10) Anxiety ?F41.9 - Anxiety disorder, unspecified (ICD-10) COVID-19 (09/09/23) ?U07.1 - COVID-19 (ICD-10) Snores ?R06.83 - Snoring (ICD-10) Gall stone ?K80.20 - Calculus of gallbladder without cholecystitis without obstruction (ICD-10) Dysmenorrhea ?N94.6 - Dysmenorrhea, unspecified (ICD-10) Dyspareunia Pelvic pain ?R10.2 - Pelvic and perineal pain (ICD-10) Menorrhagia ?N92.0 - Excessive and frequent menstruation with regular cycle (ICD-10) Back pain ?M54.9 - Dorsalgia, unspecified (ICD-10) Electronic cigarette use ?Z78.9 - Other specified health status (ICD-10) Sleep apnea ?G47.30 - Sleep apnea, unspecified (ICD-10) CRPS (complex regional pain syndrome), lower limb (2019) ?G90.529 - Complex regional pain syndrome I of unspecified lower limb (ICD-10) Neuropathy ?G62.9 - Polyneuropathy, unspecified (ICD-10) Vertigo ?R42 - Dizziness and giddiness (ICD-10) Migraine ?G43.909 - Migraine, unspecified, not intractable, without status migrainosus (ICD-10) Constipation ?K59.00 - Constipation, unspecified (ICD-10) GERD (gastroesophageal reflux disease) ?K21.9 - Gastro-esophageal reflux disease without esophagitis (ICD-10) Dyspnea on exertion ?R06.09 - Other forms of dyspnea (ICD-10) Activity intolerance ?R68.89 - Other general symptoms and signs (ICD-10) PCOS (polycystic ovarian syndrome) ?E28.2 - Polycystic ovarian syndrome (ICD-10) Hypothyroidism ?E03.9 - Hypothyroidism, unspecified (ICD-10) Delayed recovery from anesthesia Postoperative nausea and vomiting ?R11.2 - Nausea with vomiting, unspecified (ICD-10) ?Z98.890 - Other specified postprocedural states (ICD-10) Surgical History History of cholecystectomy (~07/2023) ?Z90.49 - Acquired absence of other specified parts of digestive tract (ICD-10) History of salpingectomy (03/12/23) ?Z90.79 - Acquired absence of other genital organ(s) (ICD-10) History of esophagogastroduodenoscopy (EGD) ?Z98.890 - Other specified postprocedural states (ICD-10) History of foot surgery (2019) ?Z98.890 - Other specified postprocedural states (ICD-10) H/O LEEP ?Z98.890 - Other specified postprocedural states (ICD-10) Family History Other CAD (coronary artery disease) Family history of COPD (chronic obstructive pulmonary disease) Family history of DVT Family history of diabetes mellitus Family history of heart disease Family history of hypertension Family history of myocardial infarction Family history of pulmonary embolism Family history of stroke Rectal adenocarcinoma Social History Within the past year, how often did you have a drink containing alcohol: never Score interpretation: A score less than 3 is consistent with normal alcohol consumption. Smoking status: Current some day smoker Nicotine containing products detail: vaped for 4 years every day but quit 2020. Non-prescribed substance use: denies use Previous occupational history: unemployed Highest level of school completed/degree received: high school graduate Meds Home Medications and Allergies Home Medications ?Medication ?Instructions ?Recorded ?Confirmed ?Type bupropion HCl 150 mg 24 hr tablet, 150 mg PO .qd 03/04/23 11/24/23 History extended release bupropion HCl 300 mg 24 hr tablet, 300 mg PO QDAY 03/04/23 11/24/23 History extended release cholecalciferol (vitamin D3) 50 50 mcg PO QDAY 03/04/23 11/24/23 History mcg (2,000 unit) tablet hydroxyzine HCl 25 mg tablet 50 mg PO Q6H PRN nausea and 03/04/23 11/24/23 History vomiting levothyroxine 100 mcg tablet 100 mcg PO QDAY 03/04/23 11/24/23 History meclizine 25 mg tablet 25 mg PO QID PRN motion sickness 03/04/23 11/24/23 History ondansetron 4 mg disintegrating 4 mg PO Q6H PRN nausea and vomiting 03/04/23 11/24/23 History tablet pantoprazole 40 mg tablet,delayed 40 mg PO QDAY 03/04/23 11/24/23 History release potassium chloride 20 mEq 20 meq PO QDAY PRN unknown 03/04/23 11/24/23 History tablet,extended release sumatriptan succinate 25 mg tablet 25 mg PO Q2H PRN migraine headache 03/04/23 11/24/23 History gabapentin 100 mg capsule 100 mg PO DAILY 08/21/23 11/24/23 History biotin 5 mg capsule 5 mg PO DAILY 09/19/23 11/24/23 History furosemide 40 mg tablet 40 mg PO DAILY 09/19/23 11/24/23 History magnesium 250 mg tablet 250 mg PO DAILY 09/19/23 11/24/23 History topiramate 50 mg tablet 50 mg PO Q12H 09/19/23 11/24/23 History ibuprofen 800 mg tablet 800 mg PO Q8H PRN pain 14 days #40 10/01/23 11/24/23 Rx tabs Allergies Allergy/AdvReac Type Severity Reaction Status Date / Time povidone-iodine Allergy Severe Rash Verified 11/24/23 07:25 [From Scrub Care Povidone Iodine] adhesive Allergy Verified 11/24/23 07:25 hydrocodone [From Vicodin] AdvReac Severe Nausea Verified 11/24/23 07:25 Exam Constitutional Documenting provider has reviewed patient's vital signs: yes Common normals: no apparent distress, oriented x3, healthy appearing, alert and well nourished General appearance: cooperative HENMT Common normals: normocephalic, hearing grossly normal bilaterally and moist oral mucous membranes Head and scalp: normocephalic Eye Common normals: PERRL Pupil: PERRL Neck & C-Spine Common normals: full ROM General: normal visual inspection Chest Common normals: inspection of chest normal Respiratory Common normals: normal respiratory effort, no retractions and no use of accessory muscles Back & Pelvis Lumbar spine/lower back: pain with ROM Other: bilateral facet loading pain over L3-S1 Extremity Other: edema to RLE, decreased sensation, hyperalgesia, allodynia, reddened appearance, chronic neuropathy. Patient has reported history of temperature changes in RLE and changes in hair growth. Neuro Common normals: oriented x3, CN's II-XII intact bilaterally, moves all extremities, no focal motor deficits, no sensory deficits noted and deep tendon reflexes 2+ bilaterally Sensorium/orientation: alert Motor exam: strength 5/5 throughout and no movement abnormalities noted Psych Common normals: mental status grossly normal, thought process normal, cooperative, affect normal, speech normal and activity/motor behavior normal Speech: normal speech Thought process: normal thought process Results Additional Findings Additional findings: If on a controlled substance or opioids, I have checked an [place]AR[place] report on this patient and there are no aberrancies noted in the prescribing history.??If on a controlled substance or opioid a drug screen was completed and reviewed within the last year, and if there has not been a drug screen completed we ordered one today to monitor higher risk, state monitored pain medication use. As part of providing excellent, safe, comprehensive care, the following was completed at our patient's visit: 1. A medication reconciliation and review to ensure accurate knowledge of current/active medications, including asking our patients to inform us about any [id number] medications or herbal remedies/nutritional supplements/alternative remedies. 2. A review to specifically ensure our patients have had annual screening for screening for depression, screening for tobacco use, and screening for unhealthy alcohol use. For concerning screenings had a discussion with the patient, provided patient education, and recommended follow-up with primary care provider when appropriate. If patient noted with a risk of falling, they received education on strength, gait, and balance training to prevent future risk of falling. Assessment and Plan Assessment and Plan (1) Complex regional pain syndrome type 2 of right lower extremity: Plan patient would like to proceed with spinal cord stimulator for CRPS unresponsive to greater than 6 weeks of PT/HEP, tylenol ibuprofen, heat, ice and conservative care. I reviewed the risks and benefits of proceeding with the spinal cord stimulator trial including infection (including epidural abscess, meningitis), bleeding (including epidural hematoma), dural puncture/tear, post dural puncture headache, pneumocephalus, paralysis, nerve damage, and complications from anesthesia versus improvement in her pain. We discussed the procedure will be completed under fluoroscopy and will require IV sedation and PAT. We have requested and will review most recent bloodwork to rule out infection or potential complications. continue gabapentin 100mg HS through PCP continue elevation as tolerated f/u after spinal cord stimulator trial
--- OUTSIDE RECORDS SUMMARY | 2024-03-04 12:40 | XMS_ITS | CCD ---
Author Organization [facility] Care Team Providers Care Transfer Pumper Name Role Phone ADAMOWICZ, LATASHA J Unavailable [...] Unavailable Thania Trevizo Unavailable SLOANE ., DR YOANS Tucker Admitting Unavailable ANTON ., DR YONAS [...] Unavailable SATNAM ., DR HAYS Consulting Unavailable GWYNEBER, DR BING Seaman Consulting Unavailable SATNAM ., [...] ., DR YONAS Tucker Attending Unavailable ALEGRE .NEIL Consulting Unavailable TEZ ANGEL Primary Care Physician [phone] MD Tez Angel Primary Care Provider [phone] Chay Castro Attending Provider Tez Angel MD Primary Care Provider [phone] Melissa Nunez A Attending Unavailable MoAlexx vasquez Attending Unavailable Mopedro, Alexx Dowling Attending Unavailable MoAlexx vasquez Attending Unavailable TEZ ANGEL Referring Unavailable MouranyAlexx Attending Unavailable MouranyAlexx Attending Unavailable Mayra, Melissa A Referring Unavailable Mayra, Melissa A Attending Unavailable Mayra, Melissa A Admitting Unavailable TEZ ANGEL Referring Unavailable TEZ ANGEL Attending Unavailable TEZ ANGEL Admitting Unavailable Jean, Alexx Attending Unavailable Jean, Alexx Attending Unavailable MouranAlexx tripathi Attending Unavailable MoAlexx vasquez Admitting Unavailable MoAlexx vasquez Referring Unavailable Glenn Gupta Attending Unavaila Glenn Izaguirre Admitting Unavaila ble Mayra, Melissa A Referring Unavailable Glenn Gupta Admitting Unavaila Glenn [...] Castro Attending Unavailable Chay Castro Admitting Unavailable Heather Antunez MD Attending Unavailable CHAY CASTRO Attending Unavailable ZOYA PETER Attending Unavailable TEZ ANGEL Attending Unavailable ZOYA PETER Attending Unavailable TEZ ANGEL Attending Unavailable Allergies Allergy Classification Reported Allergen(s) Allergy Type Date of Onset Reaction(s) Facility (11 sources) Iodine; Translations: [IODINE] Drug Allergy 8 Hives, Itching, Rash, Unknown [facility] Repository (18 sources) Acetaminophen / HYDROcodone; Translations: [Vicodin] Drug Allergy Unknown (qualifier value), Vomiting (disorder) [facility] Repository (8 sources) iodinated radiocontrast dyes; Translations: [iodinated radiocontrast agents] Drug allergy Unknown (qualifier value) [facility] (9 sources) steri strips; Translations: [steri strips] Allergy to substance Itching (finding), Eruption of skin (disorder) [place] (1 source) Acetaminophen / HYDROcodone Drug Allergy 3 GI intolerance [facility] Work Phone: (1 source) Wound Dressing Adhesive Propensity to adverse reactions 3 Hives, Itching, Rash [facility] Healthcare (1 source) Acetaminophen Drug Allergy 3 [facility] Repository (1 source) HYDROcodone Drug Allergy 3 [facility] Repository Medications Current Medications Medication Drug Class(es) Dates Sig (Normalized) Sig (Original) acetaminophen 325 mg / oxyCODONE hydrochloride 5 mg oral tablet (6 sources) Opioid Agonist Start: 08-12-2023 Percocet 5 mg-325 mg oral tablet 1 tab(s), Oral, q6hr, 12 tab(s), Refill(s) 0, [facility] #[facility], 157, cm, 08/11/23 13:28:00 EST, Height/Length Dosing, 132.9, kg, 08/11/23 13:28:00 EST, Weight Dosing Start Date: 08/12/23 Status: Ordered Start: 08-06-2023 End: 08-08-2023 Percocet 5 mg-325 mg oral ta blet 1 tab(s), Oral, q6hr as needed for pain, 10 tab(s), Refill(s) 0, [facility] #[facility], 157.8, cm, 07/26/23 10:03:00 EST, [...] a day Active take 1 tablet by [facility] every twenty-four hours buPROPion HCl ER (XL) [...] MCG (1999) tablet take 1 capsule by [facility] every twenty-four hours Vitamin D3 50 MCG (1999) 1 capsule Orally Once a day Active chromium picolinate 1 mg oral tablet (4 sources) Start: 07-08-2023 chromium picol inate 1000 mcg oral tablet Refills(s) 0 Start Date: 07/08/23 Status: Ordered docusate sodium 50 mg / sennosides, [facility] 8.6 mg oral tablet (2 sources) take [...] Daily, # 90 tab(s), Refills(s) 1, Pharmacy: [facility] #[facility], 152.4, cm, 08/10/21 14:17:00 EST, Height/Length [...] Start: 07-07-2023 take 9 tablets by [facility] every two hours SUMAtriptan 25 mg [...] 07/07/23 Status: Ordered take 1 tablet by [facility] every twenty-four hours hydrOXYzine HCl 25 MG 1 tablet at bedtim e as needed Orally Once a day Active polyethylene glycol 3350 081061 mg / potassium chloride 1480 mg / sodium bicarbonate 5720 mg / sodium chloride 97943 mg powder for oral solution (12 sources) Osmotic Laxative Start: 07-08-2023 NuLYTELY Quach oral powder for reconstitution See Instructions, 1 EA, Refill(s) 0, Prior to colonoscopy., [facility] #[facility], 157.5, cm, 07/08/23 14:03:00 EDT, [...] ABO/Rhon 10-25-2023 ABO/Rh Negative Invalid Interpretation Code [facility] Comment on above: Performed By: #### 2 257564, 30359397, 98071599, [id number] ####[facility] [address] [place] [address] ABO/Rh History Checkon 10-25 ABO/Rh History Check Type verified by second s Normal [facility] Comment on above: Performed By: #### 2 001499, 51576504, 10338695, 04210559 ####[facility] [address] [place] [address] ABO/Rh Retypeon 10-25-2023 ABO/Rh Retype Interp Negative Invalid Interpretation Code [facility] Comment on above: Performed By: #### 1 9793405, 0749312, 7115201, 17374326, 85480981 ####[facility] [address] [place] [address] ABSCon 10-25-2023 ABSC Gel Interp Negative Normal [facility] Comment on above: Performed By: #### 2 101277, 18603517, 69984490, 59893103 ####[address] [address] BLOOD BANKOrdered By: Bridget Baron on 10-25-2023 ABO/Rh Interp Negative Invalid Interpretation Code [facility] BB Subsection ABSC Gel Interp Negative (10/25/23 2:57 PM) Normal [facility] BB Subsection ABO/Rh Retype Interp Negative Invalid Interpretation Code [facility] BB Subsection Blood Bank ID#on 10-25-2023 BBID# [id number] Invalid Interpretation Code [facility] Comment on above: Performed By: #### 2 404689, 16472539, 61017165, 68732902 ####[address] [place] [address] CBC w/ Auto Diffon Basophil Absolute 0.0 E9/L Normal 0.0-0.2 [facility] Comment on above: Performed By: #### 1 3148067, 8241040, 4265124, 09124460, 46880925 ####[address] [place] [address] Basophils/100 WBC (Bld) 0.5 % Normal 0.0-2.0 [facility] Comment on above: Performed By: #### 1 7964613, 2172161, 1306477, 36195191, 59822985 ####[address] [place] [address] Eos Absolute 0.1 E9/L Normal 0.0-0.5 [facility] Comment on above: Performed By: #### 1 6663093, 0577812, 6512099, 05574568, 84268804 ####[address] [address] Eosinophils/100 WBC (Bld) 1.6 % Normal 0.0-8.0 [facility] Comment on above: Performed By: #### 1 4552377, 3207498, 1040074, 11979965, 58594525 ####[address] [address] Erythrocyte distribution width (RBC) [Ratio] 13.1 % Normal 10.9-14.2 [facility] Comment on above: Performed By: #### 1 8977410, 1981608, 8595680, 33480508, 58447539 ####[address] [address] Hematocrit (Bld) [Volume fraction] 38.0 % Normal 34.0-46.0 [facility] Comment on above: Performed By: #### 1 6362694, 9122946, 4315497, 39906979, 46191174 ####[address] [address] Hemoglobin (Bld) [Mass/Vol] 12.9 g/dL Normal 12.0-16.0 [facility] Comment on above: Performed By: #### 1 6696525, 5584951, 4956150, 60936221, 56095973 ####[address] [address] Lymph Absolute 1.4 E9/L Normal 1.0-4.0 [facility] Comment on above: Performed By: #### 1 4602021, 3357051, 3056099, 49042669, 19581205 ####[address] [address] Lymphocytes/100 WBC (Bld) 28.4 % Normal 14.0-50.0 [facility] Comment on above: Performed By: #### 1 4145285, 0346660, 5102498, 42735427, 02578982 ####[facility] [address] [place] [address] MCH (RBC) [Entitic mass] 31.7 pg Normal 27.0-34.0 [facility] Comment on above: Performed By: #### 1 7300971, 8062305, 7508614, 16585270, 86308555 ####[address] [address] MCHC (RBC) [Mass/Vol] 33.7 g/dL Normal 31.4-36.0 [facility] Comment on above: Performed By: #### 1 5173752, 9172815, 5628600, 83802850, 35225923 ####[address] [address] MCV (RBC) [Entitic vol] 94.0 fL Normal 80.0-100.0 [facility] Comment on above: Performed By: #### 1 6852680, 9705547, 9836462, 28343979, 41941199 ####[address] [address] Bosque Absolute 0.4 E9/L Normal 0.2-1.0 [facility] Comment on above: Performed By: #### 1 6261894, 5298831, 3285672, 66688733, 56811782 ####[address] [address] Monocytes/100 WBC (Bld) 8.0 % Normal 4.0-14.0 [facility] Comment on above: Performed By: #### 1 8508918, 6252153, 4429897, 24238432, 23086596 ####[address] [address] Neutro Absolute 3.1 E9/L Normal 2.0-7.5 [facility] Comment on above: Performed By: #### 1 6806036, 3854349, 7188503, 57180829, 82863759 ####[facility] [address] [place] [address] Neutro Auto 61.5 % Normal 36.0-75.0 [facility] Comment on above: Performed By: #### 1 0457996, 8141000, 3867872, 35854727, 52608941 ####[facility] [address] [place] [address] Platelet 221.0 E9/L Normal 150.0-500. 0 [facility] Comment on above: Performed By: #### 1 6891871, 8908438, 9326200, 65636691, 29810457 ####[facility] [address] [place] [address] Platelet mean volume (Bld) [Entitic vol] 8.9 fL Normal 6.4-10.8 [facility] Comment on above: Performed By: #### 1 4819889, 2174705, 4692905, 90934785, 36317628 ####[facility] [address] [place] [address] RBC 4.1 E12/L Low 4.3-5.9 [facility] Comment on above: Performed By: #### 1 9852668, 6018077, 0019459, 69858664, 77219154 ####[address] [place] [address] WBC 5.0 E9/L Normal 4.0-11.0 [facility] Comment on above: Performed By: #### 1 1243968, 9746533, 2904142, 38961589, 80931726 ####[facility] [address] [place] [address] CHEMISTRYOrdered By: SYSTEM SYSTEM on 10-25-2023 Albumin [...] 10-25-2023 Albumin [Mass/Vol] 4.1 g/dL Normal 3.3-5.0 [facility] Comment on above: Performed By: #### 1 4166337, 6532818, 8433006, 99342134, 17545610 ####[facility] [address] [place] [address] Albumin/Globulin [Mass ratio] 1.5 {ratio} Normal 1.1-2.2 [facility] Comment on above: Performed By: #### 1 7117419, 3485393, 8737103, 12261115, 88645566 ####[facility] [address] [place] [address] Alk Phos 96 Int._Unit/L Normal 21-98 [facility] Comment on above: Performed By: #### 1 7163741, 6912641, 4800622, 76591924, 00817852 ####[address] [place] [address] ALT 12 Int._Unit/L Normal 6-46 [facility] Comment on above: Performed By: #### 1 4190365, 4993973, 2588578, 39789546, 10314095 ####[facility] [address] [place] [address] Anion gap [Moles/Vol] 10 mmol/L Normal 6-16 [facility] Comment on above: Performed By: #### 1 0267039, 0808880, 7716539, 36662302, 38904024 ####[facility] [address] [place] [address] AST 13 Int._Unit/L Normal 5-43 [facility] Comment on above: Performed By: #### 1 7481368, 8235343, 7284922, 24861348, 23328380 ####[facility] [address] [place] [address] Bili Total 0.3 mg/dL Normal 0.0-1.1 [facility] Comment on above: Performed By: #### 1 3288711, 2566971, 3043312, 27685467, 48592552 ####[facility] [address] [place] [address] BUN/Creat Ratio 12 No Units Normal 10-20 [facility] Comment on above: Performed By: #### 1 9834748, 6630846, 8982303, 84063077, 91578912 ####[facility] [address] [place] [address] Calcium [Mass/Vol] 9.3 mg/dL Normal 8.9-11.1 [facility] Comment on above: Performed By: #### 1 8151400, 1470192, 5600287, 75974578, 03097436 ####[address] [address] Chloride [Moles/Vol] 108 mmol/L Normal 101-111 [facility] Comment on above: Performed By: #### 1 3255435, 9449961, 3108891, 70847779, 77678861 ####[address] [address] CO2 [Moles/Vol] 23 mmol/L Normal 21-31 [facility] Comment on above: Performed By: #### 1 2260378, 2696915, 8774787, 07211264, 37452960 ####[facility] [address] [place] [address] Creatinine [Mass/Vol] 1.1 mg/dL Normal 0.5-1.3 [facility] Comment on above: Performed By: #### 1 1581528, 3375886, 2921667, 36477305, 68973603 ####[facility] [address] [place] [address] Globulin (S) [Mass/Vol] 2.8 g/dL Normal 1.4-4.0 [facility] Comment on above: Performed By: #### 1 5750599, 4358892, 3812621, 88400193, 42765031 ####[facility] [address] [place] [address] Glucose [Mass/Vol] 106 mg/dL Normal 55-199 [facility] Comment on above: Performed By: #### 1 8569401, 9360742, 4512479, 30793776, 94899525 ####[facility] [address] [place] [address] Potassium [Moles/Vol] 3.8 mmol/L Normal 3.5-5.3 [facility] Comment on above: Performed By: #### 1 4240412, 2983543, 0598005, 43025136, 94816503 ####[facility] [address] [place] [address] Protein [Mass/Vol] 6.9 g/dL Normal 6.0-7.8 [facility] Comment on above: Performed By: #### 1 5281428, 9547473, 0005777, 19407432, 90717406 ####[facility] [address] [place] [address] Sodium [Moles/Vol] 137 mmol/L Normal 135-145 [facility] Comment on above: Performed By: #### 1 8289226, 3907396, 2747920, 17334065, 85398308 ####[facility] [address] [place] [address] Urea nitrogen [Mass/Vol] 13 mg/dL Normal 5-21 [facility] Comment on above: Performed By: #### 1 8537523, 4193017, 0194287, 87627634, 09595250 ####[facility] [address] [place] [address] COAGULATIONOrdered By: Pool Sykes on 10-25-2023 aPTT Coag (PPP) [Time] 31.3 s Normal 25.1 - 36.5 second(s) [facility] Auto Coag Comment on above: Interpretive Data: [...] the same coagulation reagent and instrumentation as [facility]. Currently there are no coagulation studies available worldwide for children to 14 days, and no normal ranges. Heparin therapeutic range (represented by Anti-Factor Xa activity of 0.2 - 0.4 U/mL) corresponds to PTT of 56.6 - 109.0 sec. INR Coag (PPP) [Relative time] 1.11 {INR} Invalid Interpretation Code [facility] Auto Coag Comment on above: Interpretive Data: I NR results are specifically intended to assess patients stabilized on long-term Anticoagulation therapy suggested INR s Less Intensive Anticoagulation 2.0 3.0 Conventional Range 3.0 4.5 PT Coag (PPP) [Time] 12.4 s Normal 9.4 - 1 2.5 second(s) [facility] Auto Coag Comment on above: Interpretive Data: [...] the same coagulation reagent and instrumentation as [facility]. Currently there are no coagulation studies available worldwide for children to 14 days, and no normal ranges. Consent for Treatmenton 10-09 Consent for Treatment [id number] Normal [facility] Discharge Instructionson Discharge Instructions [id number] Normal [facility] ED Clinical Summaryon 2023 ED Clinical Summary (Inserted Image. Zenaida ble to display) [address] [address] ED Clinical Summary Person Information Name: AZUL ONTIVEROS [facility] Age: 33 Years : 1990 Sex: Female Language: Romansh PCP: TEZ ANGEL MD Marital Status: Single [...] 10/25/2023 16:52:18 10/25/2023 16:52:18 10/25/2023 16:52:18 ADDRESS: [address] [place] [id number] PHYS DOC NOTES: MEDICAL INFORMATION: Prescriptions Given: [...] Follow up: With: Address: When: [facility], [address] [place] [address] [place] [address] Business (1) In 3 days 10/28/2023 With: Address: When: TEZ ANGEL [address] [place], [place] [phone] Business (1) In 3 days DIAGNOSIS: Headache; Vaginal bleeding Normal [facility] ED Note-Physicianon 10-25-19 ED Note-Physician Basic [...] relief of symptoms. She talk to the MARKETING REPORTING ANALYST physician was instructed to come to the [...] Chay CASTRO In 3 days 10/28/[address] , [place] [address]- Business (1) Additional Instructions: TEZ ANGEL In [address] [place] [address] Business (1) Additional Instructions: Problem [...] nalbuphine 10 (more content not included)... Normal [facility] Comment on above: Result Comment: Elec tronically Signed By: Alexx Pena DO\.br\Date and Time Signed: 10/25/23 16:40 EST ED Patient Education Noteon 10-25-2023 ED Patient Education Note Normal [facility] ED Patient Summaryon 024 ED Patient Summary (Inserted Image. Zenaida ble to display) [place] [address] Patient Discharge Instructions Person Information Name: AZUL ONTIVEROS Age: 33 Years Arrival Date: 10/25/2023 14:15:46 Discharge Diagnosis: Headache; Vaginal bleeding Primary Care Physician: TEZ ANGEL MD Provider Information Primary Provider: Alexx Pena DO Advanced Drying Machine Operator:None The exam and treatment you received in the Emergency Department were for an urgent problem and are not intended as complete care. It is important that you follow up with a doctor, nurse practitioner, or physician?s chiropractor assistant for ongoing care. If your symptoms [...] Follow-up Instructions: With: Address: When: [facility], [address] [place] [address] [place] [address] Business (1) In 3 days 10/28/2023 With: Address: When: TEZ ANGEL [address] [place], [place] [id number] Business (1) In 3 days In the event that this physician does not participate in your insurance network, please consult with your insurance company to find a nearby participating provider. Patient Education Materials: A MESSAGE TO ALL PATIENTS REGARDING OPIOIDS PRESCRIPTION OPIOIDS: WHAT YOU NEED TO KNOW Prescription opioids can be used to help relieve acyabkfa-zl-zrbsxq pain and are often prescribed following a [...] tell y (more content not included)... Normal [facility] HEMATOLOGYOrdered By: Bridget Baron on 10-25-2023 [...] Normal 80.0 - 100.0 fL Remisol Heme Bosque Absolute 0.4 E9/L Normal 0.2 - 1.0 [...] Coag (PPP) [Time] 31.3 second(s) Normal 25.1-36.5 [facility] Comment on above: Result Comment: Para [...] the same coagulation reagent and instrumentation as [facility]. Currently there are no coagulation studies available worldwide for children to 14 days, and no normal ranges. Heparin therapeutic range (represented by Anti-Factor Xa activity of 0.2 - 0.4 U/mL) corresponds to PTT of 56.6 - 109.0 sec. Performed By: #### 1 1002870, 3153023, 4175862, 48077903, 44660344 ####[facility] [address] [place] [address] INR Coag (PPP) [Relative time] 1.11 {INR} Invalid Interpretation Code [facility] Comment on above: Result Comment: INR results are specifically intended to assess patients stabilized on long-term Anticoagulation therapy suggested INR?s ?Less Intensive Anticoagulation? 2.0 ? 3.0 Conventional Range 3.0 ? 4.5 Performed By: #### 1 7117359, 2662934, 9661655, 19110292, 63818020 ####[facility] [address] [place] [address] PT Coag (PPP) [Time] 12.4 second(s) Normal 9.4-12.5 [facility] Comment on above: Result Comment: 15 [...] the same coagulation reagent and instrumentation as [facility]. Currently there are no coagulation studies available worldwide for children to 14 days, and no normal ranges. Performed By: #### 1 5750095, 0014540, 5684778, 47591888, 67601653 ####[facility] [address] [place] [address] eGFRon 10-25-2023 eGFR 68 mL/min/1.73 m2 Normal >=59 [facility] Comment on above: Order Comment: Order added by Discern Expert. Performed By: #### 1 1276029, 6576748, 0217430, 60159243, 92454255 ####[facility] [address] [place] [address] Heart and Vascular Office/Cl inic Noteon 10-21-2023 [...] with voice recognition artificial intelligence software, specifically [employer] and or [employer]. Substitutions may have occurred due to the inherent limitations of voice recognition and artificial intelligence software. ATTESTATION: Documentation services were performed after the patient or guardian consented to allow What[employer] Trending to record this visit. JOANN applied behavior science specialist and provider reviewed before signing. JOANN: [...] 0.5 mg Tab, (more content not included)... [facility] Comment on above: Result Comment: Elec tronically Signed By: Candy SOTELO, Glenn Holbrook\.br\Date and Time Signed: 10/21/23 09:36 EST\.br\Electronically Co-Signed By: Talya Camargo\.br\Date and Time Co-Signed: 10/20/23 17:42 EST Consent for Treatmenton 10-09 Consent for Treatment [id number] [facility] Physician Orderon 10-20-2023 Physician Order [id number]#1.00TIFF [facility] Stress EKG Tracingson 2023 Stress EKG Tracings [id number]#1.00TIFF [facility] David 10-01-2023 L Specimen: [id number] Received: 10/02/23 Status: KARI Relance Num: [id number] Spec Type: Surgical Subm Dr: Chay Castro Tissues: A Uterus w/ or w/o tubes ovaries except neoplastic or prolap (UTERUS) Procedures: , Gross/Micro L5 Age/ Patient Sex Location Account Attending Physician Azul Huertas 33/F [place] [id number] Chay Castro SPEC NUM: [id number] RECD: 10/02/23 STATUS: KARI LOMBARDO NUM: [id number] GAURI: 10/01/[address]: Chay Castro ENTERED: 10/02/23 [facility] DR: Gallito Abdullahi SPEC TYPE: Surgical DEPT: SHAQUILLE SHIELDS ORDERED: HE/12, Gross/Micro L5 ORDERED: HE/, Gross/Micro L5 Pathological Diagnosis Uterus and Cervix, [...] prominent trabeculation and no well-circumscribed nodules identified. Senior Examiner sections are submitted in 4 cassettes as follows: A1 - Posterior cul-de-sac serosa with dull red-brown serosal focus A2 - Anterior and posterior cervix A3 - Anterior endomyometrium A4 - Posterior endomyometrium Specimen: [id number] Received: 10/02/23 Status: KARI Sally Num: [id number] Spec Type: Surgical Subm Dr: Chay Castro Tissues: A Uterus w/ or w/o tubes ovaries except neoplastic or prolap (UTERUS) Procedures: , Gross/Micro L5 Patient: KiyaAzul [id number] (Continued) Specimen: [id number] Received: 10/02/23 (Continued) Signed (signature on file) Alexi Mclaughlin MD 10/04/23 1139 Specimen: [id number] Received: 10/02/23 Status: KARI Zavala Num: [id number] Spec Type: Surgical Subm Dr: Chay Castro Tissues: A Uterus w/ or w/o tubes ovaries except neoplastic or prolap (UTERUS) Procedures: , Gross/Micro L5 Patient: Azul Huertas [id number] (Continued) Specimen: [id number] Received: 10/02/23 (Continued) CPT Codes 77046 Specimen: [id number] Received: 10/02/23 Status: KARI Zavala Num: [id number] Spec Type: Surgical Subm Dr: Chay Castro Tissues: A Uterus w/ or w/o tubes ovaries except neoplastic or prolap (UTERUS) Procedures: , Gross/Micro L5 Patient: Azul Huertas [id number] (Continued) Signed (signature on file) Alexi Mclaughlin MD 10/04/[address] [facility] Echocardiographyon Echocardiography [id number] [facility] Consent for Treatmenton 09-08 Consent for Treatment [id number]#1.00TIFF [facility] Insurance Correspondenceon 1 10-23-2022 Insurance Correspondence [id number]#1.00TIFF [facility] Auth for Release of Medical Recordson 08-20-2023 Auth for Release of Medical Records [id number]#1.00TIFF [facility] Ambulatory Visit Summaryon 1 10-16-2022 Ambulatory Visit Summary PRINCE AZUL ALLEN :1990 Visit Date:08/15/2023 Ambulatory Visit Instructions Your [...] choosing us for your care. Normal [facility] General Surgery Office/Clini c Noteon 08-15-2023 [...] with voice recognition artificial intelligence software, specifically Cinnamon, [employer] and or A-TEX. Substitutions may have occurred voice recognition and artificial intelligence software. Documentation services were performed after patient or guardian consented to allow What[employer] Trend[employer] to record this visit. JOANN applied behavior science specialist and provider reviewed before signing. JOANN: [...] Hypertensio (more content not included)... Normal [facility] Comment on above: Result Comment: Elec [...] 3 days after surgery She finished the [place] yesterday and states the pain is unbearable [...] with voice recognition artificial intelligence software, specifically Cinnamon, [employer] and or A-TEX. Substitutions may have occurred voice recognition and artificial intelligence software. Documentation services were performed after patient or guardian consented to allow [employer]rending to record this visit. JOANN applied behavior science specialist and provider reviewed before signing. JOANN: Rosalva Tadeo Calape Follow-up No qualifying data available Problem List/Past [...] Instructions Percoce (more content not included)... Normal [facility] Comment on above: Result Comment: Elec [...] partial hysterectomy in 09/2023 as recommended by [facility]. The decision to assess her cardiac [...] abnormal for sinus rhythm and possible anterior [place], although I think it is probably not more likely as a lead issue. However, we will get her a stress echo to evaluate the shortness of breath and abnormal EKG. See her back for follow-up. Chest pain (R07.9: Chest pain, unspecified) Stress echo to evaluate Portions of this record may have been created with voice recognition artificial intelligence software, specifically Cinnamon, [employer] and or A-TEX. Substitutions may have occurred due to the inherent limitations of voice recognition and artificial intelligence software. Documentation services were performed after patient or guardian consented to allow What[employer] Trending to record this visit. JOANN applied behavior science specialist and provider reviewed before signing. JOANN: [...] Oral, Da (more content not included)... Normal [facility] Comment on above: Result Comment: Elec tronically Signed By: Candy SOTELO, Glenn Holbrook\.br\Date and Time Signed: 08/12/23 13:43 EST\.br\Electronically Co-Signed By: Scott Frederick\.br\Date and Time Co-Signed: 08/11/23 17:25 EST Consent for Treatmenton 12 Consent for Treatment [id number]#1.00TIFF Normal [facility] IntraOperative Documentson 1 10-12-2022 IntraOperative Documents [id number]#1.00TIFF Normal [facility] Physician Orderon 08-11-2023 Physician Order [id number]#1.00TIFF Normal [facility] Consent for Anesthesiaon Consent for Anesthesia [id number]#1.00TIFF Normal [facility] Discharge Instructionson Discharge Instructions [id number]#1.00TIFF Normal [facility] IntraOperative Documentson 1 10-07-2022 IntraOperative Documents [id number]#1.00TIFF [facility] Main OR Intraoperative Recor don 08-07-2023 Main OR Intraoperative Record IntraOp Document Type FT Summary Primary Physician: Alexx Gupta MD Finalized Date/Time: 08/07/23 13:39:28 Pt. Name: AZUL ONTIVEROS/Sex: 1990 Female Med Rec #: [id number] Physician: Alexx Gupta MD Financial #: [id number] Pt. Type: A Room/Bed: [facility] Admit/Disch: 08/06/23 05:51:08 - 08/06/23 [...] Alexx Graham RN, Natanael Bateman Role Performed PAINTER MIRROR Surgeon - Primary Locomotive Supervisor - Primary Time In 08/06/23 07:37:00 08/06/23 07:37:00 08/06/23 07:37:00 Time Out 08/06/23 09:24:00 08/06/23 09:04:00 08/06/23 09:24:00 Procedure CHOLECYSTECOMY ROBOT CHOLECYSTECOMY ROBOT CHOLECYSTECOMY ROBOT ASSISTED(.) ASSISTED(.) ASSISTED(.) Comments , anesthesia meter supervisor Last Modified By: Eduardo TAYLOR, Julianne Graham RN, Natanael Graham RN, Natanael Bateman 08/07/23 13:36:33 08/06/23 09:24:08 08/06/23 09:24:08 Entry 4 Entry 5 Case Attendee Emmanuelle Wilks James W Role Performed Scrub - Primary GENERAL I FARMWORKER/SA Time In 08/06/23 07:37:00 08/06/23 07:37:00 Time [...] Given Participants Alonso SOTELO, Santos Duran RN, Andrea L, Chaput, Madison A, Boyer, James W Time [...] and tissue Entry 1 Skin Integrity Intact, [place], Warm, and Skin Abnormality No Dry Outcomes [...] Position Supine (more content not included)... Normal [facility] Pre-Op Checkliston Pre-Op Checklist [id number]#1.00TIFF [facility] CHEMISTRYOrdered By: Lab ROP User on 08-06-2023 Glucose [Mass/Vol] 92 mg/dL Normal 55 - 99 mg/dL [facility] POC Subsection Comment on above: Result Comment: Lisa [place] Meter POC Username COURTNEY DONOVAN Invalid Interpretation Code [facility] POC Subsection Sodium [Moles/Vol] [id number] mmol/L Invalid Interpretation Code [facility] POC Subsection Sodium [Moles/Vol] 020707414 mmol/L Invalid Interpretation Code [facility] POC Subsection Capillary Glucose POCon 07-10 Glucose [Mass/Vol] 92 mg/dL Normal 55-99 [facility] Comment on above: Result Comment: Lisa [place] Meter Performed By: #### 2 [id number] ####[facility] [address] [place] [address] Consent for Treatmenton 07-10 Consent for Treatment [id number]#1.00TIFF [facility] Discharge Instructionson Discharge Instructions AZUL ONTIVEROS [...] AM EST With: Alexx Gupta MD Where: [facility] General Surgery [facility] Comment on above: Result Comment: [...] AM EST With: Alexx Gupta MD Where: [facility] General Surgery [facility] Comment on above: Result Comment: Elec tronically Signed By: Thelma SETHI, Courtney Schumacher.min\Date and Time Signed: 08/15/23 06:03 EST Discharge [...] AM EST With: Alexx Gupta MD Where: [facility] General Surgery [facility] Comment on above: Result Comment: Elec tronically Signed By: Thelma SETHI, Courtney Rodriguez\.br\Date and Time Signed: 08/15/23 06:03 EST Inpatient Patient Summaryon 08-06-2023 Inpatient Patient Summary [place] [id number] [place] Clinical Discharge Instructions PERSON INFORMATION Name: AZUL ONTIVEROS [facility]#:[id number] PHYSICIANS Admitting Physician: Alexx Gupta MD Attending Physician: Alexx Gupta MD PCP: TEZ ANGEL MD Discharge Diagnosis: Comment: PATIENT EDUCATION INFORMATION Instructions: Minimally Invasive Cholecystectomy, Care After Medication Leaflets: Follow up: With: Address: When: Alexx Gupta [address] [place] [address] [phone] Business (1) Comments: Appointment has already been scheduled Type Location Start [facility] Cardiology New Patient (FT) FT.Cardiology Clinic 08/11/2023 1:30 PM 08/11/2023 1:45 PM Confirmed GS Post Op 15 [facility] 08/15/2023 9:20 AM 08/15/2023 9:40 AM Confirmed MEDICATION LIST New Medications [facility], [address] [place], [place] [id number], [phone] acetaminophen-oxycodone (Percocet 5 mg-325 mg oral tablet) [...] DAILY., Responsible Provider: Tez Angel Comment: Eli [facility] Main OR PACU I Recordon 07-10 Main OR PACU I Record PACU Phase I Document Type FT Summary Primary Physician: Alexx Gupta MD Finalized Date/Time: 08/06/23 10:10:38 Pt. Name: AZUL ONTIVEROS./Sex: 1990 Female Med Rec #: [id number] Physician: Alexx Gupta MD Financial #: [id number] Pt. Type: A Room/Bed: [place] [address] Admit/Disch: 08/06/23 05:51:08 - Institution: Case Times [...] Signed By: Bia Perry RN 08/06/23 10:10 [facility] Main OR PACU II Recordon Main OR PACU II Record PACU Phase II Document Type FT Summary Primary Physician: Alexx Gupta MD Finalized Date/Time: 08/06/23 11:21:37 Pt. Name: PRINCE AZUL ALLEN/Sex: 1990 Female Med Rec #: [id number] Physician: Alexx Gupta MD Financial #: [id number] Pt. Type: A Room/Bed: [place] [address] Admit/Disch: 08/06/23 05:51:08 - Institution: Case Times [...] Outcomes Met? Yes Last Modified By: Adeline Elizabeht RN 08/06/23 11:21:35 Post-Care Text: The patient [...] By: Adeline Elizabeth RN 08/06/23 11:21 Normal [facility] Main OR Preoperative Recordo n 08-06-2023 Main OR Preoperative Record PreOp Document Type FT Summary Primary Physician: Alexx Gupta MD Finalized Date/Time: 08/06/23 08:10:54 Pt. Name: AZUL ONTIVEROS D.O.B./Sex: 1990 Female Med Rec #: [id number] Physician: Alexx Gupta MD Financial #: [id number] Pt. Type: A Room/Bed: AS15 Admit/Disch: 08/06/23 05:51:08 - Institution: Case Times [...] By: Natanael Graham RN 08/06/23 08:10 Normal [facility] Monitor Recordon 08-06-2023 Monitor Record [id number]#1.00TIFF Normal [facility] Operative Reporton Operative Report Indication for Surge ry 33-year-old female with symptomatic cholelithiasis here for robotic cholecystectomy Preoperative Diagnosis CHOLELITHIASIS Postoperative Diagnosis CHOLELITHIASIS Operation CHOLECYSTECOMY ROBOT ASSISTED, ROBOT ASSISTED LAPAROSCOPIC CHOLECYSTECOMY, . Surgeon(s) Alonso SOTELO, Alexx Dowling (Surgeon - Primary) News Operations Manager Michael Anesthesia General Mauricio Chang Jr., DO (Basketballs And Footballs Reverser) Felicitas Sanderson CRNA (Other) Estimated Blood Loss [...] x2 Patient tolerated the procedure: yes Normal [facility] Comment on above: Result Comment: Elec tronically Signed By: Alonso SOTELO, Alexx Dowling\.br\Date and Time Signed: 08/06/23 09:40 EST Outpatient Surgery Discharge Instructionon 08-06-2023 Outpatient Surgery Discharge Instruction [place] [id number] Patient Discharge Instructions PERSON INFORMATION Name: PRINCE [...] Follow up: With: Address: When: Alexx Gupta [facility] [address], [place] [address], [place] [address] [place] [phone] Business (1) Comments: Appointment has already been scheduled Type Location Start [facility] Cardiology New Patient (FT) FT.Cardiology Clinic 08/11/2023 1:30 PM 08/11/2023 1:45 PM Confirmed GS Post Op 15 [facility] [place] 08/15/2023 9:20 AM 08/15/2023 9:40 AM Confirmed Pharmacy Information: You may receive a survey from [employer] asking you to rate your care experience. Your feedback is important and will help us understand what we do well and how we can improve the quality of care we provide to you, your loved ones and our community. It?s an honor to serve you. Thank you for choosing [facility] HERE ARE THE MEDICATION CHANGES THAT OCCURRED DURING YOUR HOSPITAL STAY New Medications [facility], [address] [place] [id number], [phone] acetaminophen-oxycodone (Percocet 5 mg-325 mg oral tablet) [...] how to care (more content not included)... [facility] Patient Education - Texton 1 10-06-2022 [...] these instructions at home: Medicines ? Take ogko-pqc-qvquzfy and prescription medicines only as told by [...] keep your urine pale yellow. ? Take xqxh-tud-mlzuolz or prescription medicines. ? Eat foods that [...] and water are not available, use hand fish technologist. ? Change your dressing as told by [...] if yo (more content not included)... Normal [facility] Progress Note-Physicianon Progress Note-Physician Patient: AZUL ONTIVEROS Age: 33 years Sex: Female : 1990 Associated Diagnoses: None Author: Mauricio Chang Jr., DO Postoperative Information Postoperative disposition: Postoperative disposition: Home. Optimetrix number: Optimetrix number [id number]. Anesthetic utilized: General. Physical Examination Vital Signs [...] Surgery Unit, and To home ). Normal [facility] Comment on above: Result Comment: Elec [...] 1 EA, Refill(s) 0, Prior to colonoscopy., [facility], 157.5, cm, 07/08/23 14:03:00 EDT, Height/Length Dosing, 129.5, kg, 07/08/23 14:03:00 EDT, Weight Dosing Protonix 40 mg Tab-DR: 40 mg = 1 tab(s), Oral, Daily, # 90 tab(s), Refills(s) 1, Pharmacy: [facility], 152.4, cm, 08/10/21 14:17:00 EST, Height/Length [...] list: All Problems Anemia / SNOMED CT 388826566 / Confirmed Anxiety / SNOMED CT 56934348 / Confirme (more content not included)... Normal [facility] Comment on above: Result Comment: Elec tronically Signed By: Mauricio Chang Jr., DO\.br\Date and Time Signed: 08/06/23 07:29 EST Consent for Procedure/Surger yon 07-28-2023 Consent for Procedure/Surgery [id number]#1.00TIFF Normal [facility] Auto Diffon 07-25-2023 Basophils/100 WBC (Bld) 0.4 % Normal 0.0-2.0 [facility] Comment on above: Order Comment: Order Added by Discern Expert. Performed By: #### 2 [id number], [id number] #### [facility] [address] [place] [address] Basophils/Leukocytes Auto (Bld) [Pure # fraction] 0.0 E9/L Normal 0.0-0.2 [facility] Comment on above: Order Comment: Order Added by Discern Expert. Performed By: #### 2 282762, [id number] #### [facility] [address] [place] [address] Eosinophils/100 WBC (Bld) 0.9 % Normal 0.0-8.0 [facility] Comment on above: Order Comment: Order Added by Discern Expert. Performed By: #### 2 171478, [id number] #### [facility] [address] [place] [address] Eosinophils/Leukocyt es Auto (Bld) [Pure # fraction] 0.0 E9/L Normal 0.0-0.5 [facility] Comment on above: Order Comment: Order Added by Discern Expert. Performed By: #### 2 259628, [id number] #### [facility] [address] [place] [address] Lymphocytes/100 WBC (Bld) 29.0 % Normal 14.0-50.0 [facility] Comment on above: Order Comment: Order Added by Kyle Expert. Performed By: #### 2 315230, [id number] #### [facility] [address] [place] [address] Lymphocytes/Leukocyt es Auto (Bld) [Pure # fraction] 1.5 E9/L Normal 1.0-4.0 [facility] Comment on above: Order Comment: Order Added by Kyle Expert. Performed By: #### 2 741844, [id number] #### [facility] [address] [place] [address] Monocytes/100 WBC (Bld) 8.4 % Normal 4.0-14.0 [facility] Comment on above: Order Comment: Order Added by Discern Expert. Performed By: #### 2 252812, [id number] #### [facility] [address] [place] [address] Monocytes/Leukocytes Auto (Bld) [Pure # fraction] 0.4 E9/L Normal 0.2-1.0 [facility] Comment on above: Order Comment: Order Added by Kyle Expert. Performed By: #### 2 376460, [id number] #### [facility] [address] [place] [address] Neutrophils/100 WBC (Bld) 61.3 % Normal 36.0-75.0 [facility] Comment on above: Order Comment: Order Added by Discern Expert. Performed By: #### 2 186216, [id number] #### [facility] [address] [place] [address] Neutrophils/Leukocyt es Auto (Bld) [Pure # fraction] 3.3 E9/L Normal 2.0-7.5 [facility] Comment on above: Order Comment: Order Added by Discern Expert. Performed By: #### 2 461670, [id number] #### [facility] [address] [place] [address] CBC w/ Auto Diffon Erythrocyte distribution width (RBC) [Ratio] 12.9 % Normal 10.9-14.2 [facility] Comment on above: Performed By: #### 2 536778, [id number] #### [facility] [address] [place] [address] Hematocrit (Bld) [Volume fraction] 36.5 % Normal 34.0-46.0 [facility] Comment on above: Performed By: #### 2 654340, 3230831 #### [facility] [address] [place] [address] Hemoglobin (Bld) [Mass/Vol] 12.1 g/dL Normal 12.0-16.0 [facility] Comment on above: Performed By: #### 2 962525, 4333444 #### [facility] [address] [place] [address] MCH (RBC) [Entitic mass] 31.1 pg Normal 27.0-34.0 [facility] Comment on above: Performed By: #### 2 170182, 8073110 #### [facility] [address] [place] [address] MCHC (RBC) [Mass/Vol] 33.3 g/dL Normal 31.4-36.0 [facility] Comment on above: Performed By: #### 2 124343, 4267002 #### [facility] [address] [place] [address] MCV (RBC) [Entitic vol] 93.3 fL Normal 80.0-100.0 [facility] Comment on above: Performed By: #### 2 885577, 0239271 #### [facility] [address] [place] [address] Platelet mean volume (Bld) [Entitic vol] 8.6 fL Normal 6.4-10.8 [facility] Comment on above: Performed By: #### 2 020862, 4080154 #### [facility] [address] [place] [address] Platelets (Bld) [#/Vol] 227.0 E9/L Normal 150.0-500. 0 [facility] Comment on above: Performed By: #### 2 108358, 4538343 #### [facility] [address] [place] [address] RBC (Bld) [#/Vol] 3.9 E12/L Low 4.3-5.9 [facility] Comment on above: Performed By: #### 2 174897, 7138663 #### [facility] [address] [place] [address] WBC corrected for nucl RBC Auto (Bld) [#/Vol] 5.3 E9/L Normal 4.0-11.0 [facility] Comment on above: Performed By: #### 2 345677, 0408606 #### [facility] [address] [place] [address] Maxillofacial w/o Contras ton 07-25-2023 CT [...] Consent for Treatmenton 07-09 Consent for Treatment [id number]#1.00TIFF [facility] HEMATOLOGYOrdered By: SYSTEM SYSTEM on 07-25-2023 [...] Consent for Treatmenton 07-09 Consent for Treatment [id number]#1.00TIFF Normal [facility] Consent for Procedure/Surger yon 07-23-2023 Consent for Procedure/Surgery [id number]#1.00TIFF Normal [facility] Insurance Correspondenceon 09-21-2022 Insurance Correspondence [id number]#1.00[facility] Ambulatory Visit Summaryon 1 09-20-2022 Ambulatory [...] AM EST With: Alexx Gupta MD Where: [facility] General Surgery [facility] General Surgery Office/Clini c Noteon 07-21-2023 General Surgery Office/Clinic Note Chief Complaint RUQ pain 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 female here for [...] with voice recognition artificial intelligence software, specifically [employer], [employer] and or [employer]. Substitutions may have occurred voice recognition and artificial intelligence software. Documentation services were performed after patient or guardian consented to allow [employer] to record this visit. JOANN applied behavior science specialist and provider reviewed before signing. JOANN: [...] unknown Tobacco (more content not included)... Normal [facility] Comment on above: Result Comment: Elec [...] food choices, such as grocery stores and [employer] markets. What are the signs or symptoms? [...] you have to (more content not included)... [facility] Insurance Correspondenceon 1 09-15-2022 Insurance Correspondence [id number]#1.00TIFF [facility] Physician Orderon 07-16-2023 Physician Order [id number]#1.00TIFF [facility] US Gallbladderon 07-15-2023 US Gallbladder Exam [...] Fitch M.D. Transcribed by: KARL Technologist: SERAFIN [facility] Consent for Treatmenton Consent for Treatment [id number]#1.00TIFF [facility] Ambulatory Visit Summaryon 1 Ambulatory Visit [...] Abdominal pain, No, Epigastric abdominal pain Normal [facility] Gastroenterology Office/Clin ic Noteon 07-08-2023 Gastroenterology Office/Clinic Note Chief Complaint Upper abdominal pain and pain when breathing. HPI Staff This is a 32 year old female who presents today for a follow up from [facility] ER on 06/23/23, for complaints of GERD/ gastritis. Dr Angel referred patient to for gallbladder. History of Present Illness Patient is a 32-year-old female who presents for follow-up from ED visit 06/23/2023 at [facility] ED. Presents with female visitor today. Review [...] father, diagnosed in his 30s and hx. [place] at age early 40s, reports her father [...] She explains she used to drink alcohol [phone]: 3 cans of beer and 1/2 gallon [...] Ordered EGD. Ordered: EGD Endoscopy (Hospital Procedure) [facility] Internal Ambulatory Referral US Gallbladder 2. Nausea [...] Ordered EGD. Ordered: EGD Endoscopy (Hospital Procedure) [facility] Internal Ambulatory Referral US Gallbladder 3. Irregular [...] in c (more content not included)... Normal [facility] Comment on above: Result Comment: Elec tronically Signed By: Melissa Nunez CNP\.br\Date and Time Signed: 07/08/23 14:43 EDT Patient Educationon 10-31-20 23 Patient Education Gastroenterology Nausea, Adult Nausea is [...] added (diluted fruit juice). ? Eat bland, wlxp-hz-cpgrcj foods in small amounts as you are able. These foods include bananas, applesauce, rice, lean meats, toast, and crackers. ? Avoid drinking fluids that contain a lot of sugar or caffeine, such as energy drinks, sports drinks, and soda. ? Avoid alcohol. ? Avoid spicy or fatty foods. General instructions ? Take zodk-ltq-qahrqvm and prescription medicines only as told by [...] and water are not available, use hand fish technologist. ? Make sure that everyone in your [...] recommendations for eating and drinking and take ydtk-inu-athdxfe and prescription medicines only as told by [...] provider. Document Revised: 03/01/2022 Document Reviewed: 03/01/2022 [employer] Patient Education ? 2022 [employer] [facility] Reminderson 07-08-2023 Reminders - From: Zoya Dael To: [facility] - Reminders/Recalls; Sent: 07/08/2023 14:50:43 EDT Show up: 07/08/2023 14:51:00 EDT Subject: Ambulatory Reminder Medicaid [place] Reminder/Recall call pt and schedule EGD and Colon with Dr. Patino once Medicaid [place] has been approved. Normal [facility] Physician Referralon 023 Physician Referral [id number]#1.00TIFF Normal [facility] Auto Diffon 06-23-2023 Basophils/100 WBC (Bld) 0.4 % Normal 0.0-2.0 [facility] Comment on above: Order Comment: Order Added by Discern Expert. Performed By: #### 2 292337, [id number], 6787012, 9532597, 7549082, [id number], [id number] #### [facility] [address] [place] [address] Basophils/Leukocytes Auto (Bld) [Pure # fraction] 0.0 E9/L Normal 0.0-0.2 [facility] Comment on above: Order Comment: Order Added by Discern Expert. Performed By: #### 2 960554, 3401955, 2093655, 6554759, 7605313, 49448335, 57938361 #### [facility] [address] [place] [address]707 Eosinophils/100 WBC (Bld) 0.6 % Normal 0.0-8.0 [facility] Comment on above: Order Comment: Order Added by Discern Expert. Performed By: #### 2 553693, 4916111, 9422248, 6976429, 8678864, 76157055, 60292061 #### [facility] [address] [place] [address] 68490 Eosinophils/Leukocyt es Auto (Bld) [Pure # fraction] 0.0 E9/L Normal 0.0-0.5 [facility] Comment on above: Order Comment: Order Added by Discern Expert. Performed By: #### 2 564891, 7958289, 8573984, 4559384, 4837502, 12917673, 92220160 #### [facility] [address] [place] [address] 96438 Lymphocytes/100 WBC (Bld) 13.9 % Low 14.0-50.0 [facility] Comment on above: Order Comment: Order Added by Discern Expert. Performed By: #### 2 226515, 8709545, 0989825, 4962574, 8517666, 09675362, 71294181 #### [facility] [address] [place] [address] 36370 Lymphocytes/Leukocyt es Auto (Bld) [Pure # fraction] 1.0 E9/L Normal 1.0-4.0 [facility] Comment on above: Order Comment: Order Added by Discern Expert. Performed By: #### 2 321511, 7032129, 0329653, 5700934, 3143549, 66192370, 85396196 #### [facility] [address] [place] [address] 63563 Monocytes/100 WBC (Bld) 5.5 % Normal 4.0-14.0 [facility] Comment on above: Order Comment: Order Added by Discern Expert. Performed By: #### 2 244081, 8251713, 2441324, 9248307, 5452023, 22658029, 83605665 #### [facility] [address] [place] [address] 33565 Monocytes/Leukocytes Auto (Bld) [Pure # fraction] 0.4 E9/L Normal 0.2-1.0 [facility] Comment on above: Order Comment: Order Added by Discern Expert. Performed By: #### 2 447807, 5015076, 1338915, 6588394, 1449363, 41131575, 56644856 #### [facility] [address] [place] [address] 53162 Neutrophils/100 WBC (Bld) 79.6 % High 36.0-75.0 [facility] Comment on above: Order Comment: Order Added by Discern Expert. Performed By: #### 2 814093, 4802687, 4504688, 8530389, 1183529, 71940893, 29521000 #### [facility] [address] [place] [address] Neutrophils/Leukocyt es Auto (Bld) [Pure # fraction] 5.5 E9/L Normal 2.0-7.5 [facility] Comment on above: Order Comment: Order Added by Discern Expert. Performed By: #### 2 543824, 2636485, 3737688, 3550201, 6373562, 80904980, 47235550 #### [facility] [address] [place] [address] B hCG Qualon 06-23-2023 Beta hCG Ql Negative Normal [facility] Comment on above: Performed By: #### 2 629404, 5436384, 7068379, 9405753, 4098818, 55545326, 06743346 ####[facility] [address] [place] [address] BMPon 06-23-2023 Creatinine [Mass/Vol] 1.1 mg/dL Normal 0.5-1.3 [facility] Comment on above: Performed By: #### 2 263806, 8296623, 7879730, 2659516, 7950237, 53998083, 43128187 ####[facility] [address] [place] [address] Urea nitrogen [Mass/Vol] 17 mg/dL Normal 5- [facility] Comment on above: Performed By: #### 2 482967, 1709539, 0250872, 1563707, 0048957, 83524790, 90998136 ####[facility] [address] [place] [address] Urea nitrogen/Creatinine [Mass ratio] 16 No Units Normal -20 [facility] Comment on above: Performed By: #### 2 086875, 8356136, 5668183, 2784414, 6374560, 92708763, 62650723 ####[facility] [address] [place] [address] Anion gap [Moles/Vol] 9 mmol/L Normal 6-16 [facility] Comment on above: Performed By: #### 2 369389, 2026963, 2189809, 3865661, 9454461, 03132801, 77519009 ####[facility] [address] [place] [address] Calcium [Mass/Vol] 8.8 mg/dL Low 8.9-11.1 [facility] Comment on above: Performed By: #### 2 205695, 6434438, 0602987, 4790236, 1287203, 60999447, 23680710 ####[facility] [address] [place] [address] Chloride [Moles/Vol] 111 mmol/L Normal 101-111 [facility] Comment on above: Performed By: #### 2 289267, 3869470, 6547074, 3392763, 5932285, 77843880, 03446898 ####[facility] [address] [place] [address] CO2 [Moles/Vol] 18 mmol/L Low 21-31 [facility] Comment on above: Performed By: #### 2 920581, 3747368, 5577128, 8945488, 1054345, 69854112, 66227909 ####[facility] [address] [place] [address] Glucose [Mass/Vol] 142 mg/dL Normal 55-199 [facility] Comment on above: Result Comment: If t his glucose result represents a fasting glucose, interpretation should refer to the following reference range: 55-99 mg/dL Performed By: #### 2 321262, 3984416, 9806930, 0783733, 3519265, 82727085, 11905603 ####[facility] [address] [place] [address] Potassium [Moles/Vol] 3.9 mmol/L Normal 3.5-5.3 [facility] Comment on above: Performed By: #### 2 799100, 9064264, 2923219, 2963801, 3263683, 23921791, 17997116 ####[facility] [address] [place] [address] Sodium [Moles/Vol] 134 mmol/L Low 135-145 [facility] Comment on above: Performed By: #### 2 784368, 3499983, 4974142, 8779700, 1927687, 75766203, 24204914 ####[facility] [address] [place] [address] CBC w/ Auto Diffon 3 Erythrocyte distribution width (RBC) [Ratio] 12.3 % Normal 10.9-14.2 [facility] Comment on above: Performed By: #### 2 548248, 9128301, 0107549, 3547035, 2142283, 70917598, 04184099 #### [facility] [address] [place] [address] Hematocrit (Bld) [Volume fraction] 38.3 % Normal 34.0-46.0 [facility] Comment on above: Performed By: #### 2 976291, 5536318, 4857370, 6731763, 8654891, 23425621, 93365006 #### [facility] [address] [place] [address] Hemoglobin (Bld) [Mass/Vol] 13.1 g/dL Normal 12.0-16.0 [facility] Comment on above: Performed By: #### 2 270040, 5499548, 9676991, 8787950, 6079579, 19819883, 97983867 #### [facility] [address] [place] [address] MCH (RBC) [Entitic mass] 31.4 pg Normal 27.0-34.0 [facility] Comment on above: Performed By: #### 2 789960, 4864011, 2789275, 0717517, 6232336, 06766210, 22609954 #### [facility] [address] [place] [address] MCHC (RBC) [Mass/Vol] 34.2 g/dL Normal 31.4-36.0 [facility] Comment on above: Performed By: #### 2 367136, 6713670, 8786338, 0401801, 1527744, 15589160, 60967800 #### [facility] [address] [place] [address]4044 MCV (RBC) [Entitic vol] 91.8 fL Normal 80.0-100.0 [facility] Comment on above: Performed By: #### 2 040196, 7142687, 7421150, 6202075, 1533336, 55694335, 42548204 #### [facility] [address] [place] [address] Platelet mean volume (Bld) [Entitic vol] 8.8 fL Normal 6.4-10.8 [facility] Comment on above: Performed By: #### 2 122820, 3423967, 3216234, 0650438, 1013381, 63850766, 51747877 #### [facility] [address] [place] [address]2312 Platelets (Bld) [#/Vol] 201.0 E9/L Normal 150.0-500. 0 [facility] Comment on above: Performed By: #### 2 141506, 4712502, 2736367, 3957506, 7473967, 98670250, 07346106 #### [facility] [address] [place] [address] 84330 RBC (Bld) [#/Vol] 4.2 E12/L Low 4.3-5.9 [facility] Comment on above: Performed By: #### 2 249484, 4419939, 9069014, 3936816, 1129135, 60593903, 58571229 #### [facility] [address] [place] [address]486 WBC corrected for nucl RBC Auto (Bld) [#/Vol] 6.9 E9/L Normal 4.0-11.0 [facility] Comment on above: Performed By: #### 2 333073, 4175674, 5174334, 9075023, 6591886, 24878672, 58279070 #### [facility] [address] [place] [address] CHEMISTRYOrdered By: SYSTEM SYSTEM on 06-23-2023 Albumin [...] 68 mL/min/1.73 m2 Normal >=59mL/min /1.73 m2 [facility] S Comment on above: Interpretive Data: [...] Consent for Treatmenton 06-08 Consent for Treatment [id number] Normal [facility] Discharge Instructionson Discharge Instructions [id number] Normal [facility] ED Clinical Summaryon 2022 ED Clinical Summary (Inserted Image. Zenaida ble to display) [place] [address] ED Clinical Summary Person Information Name: AZUL ONTIVEROS [facility] Age: 32 Years : 1990 Sex: Female Language: Romansh PCP: TEZ ANGEL MD Marital Status: Single [...] 06/23/2023 12:53:50 06/23/2023 12:53:50 06/23/2023 12:53:50 ADDRESS: [address] [place] [phone] [facility] DOC NOTES: MEDICAL INFORMATION: Prescriptions Given: [...] Follow up: With: Address: When: Michael Patino [address] [place], [place] [address]Pix[address]y, [address], [email or web address] [address] [place] [phone] Business (1) In 3 days 06/26/2023 With: Address: When: TEZ ANGEL [address] [place], [place] [phone] Business (1) In 3 days 06/26/2023 DIAGNOSIS: Gastritis Normal [facility] ED Note-Physicianon 06-23-20 ED Note-Physician Basic Information Time Seen: Jean MONGE Alexx 06/23/2023 09:28 Chief Complaint Patient presents [...] 06/26/2023 EDT [address], [address] [phone] Business (1) Additional Instructions: TEZ ANGEL In 3 days 06/26/2023 EDT [address] [place] [address] Business (1) Additional Instructions: Patient Education Gastritis, Adult Attestation Patient seen and evaluated by the physician chiropractor assistant. Attending physician was present in the emergency department and supervised care. This visit was performed by both the physician and an APC. I performed all aspects of the MDM as documented. This report was transcribed using voice recognition software. Every effort was made to ensure accuracy, however, inadvertently computerized apparel embroidery digitizer mistakes may be present. Appropriate healthcare PPE [...] Positive dilut (more content not included)... Normal [facility] Comment on above: Result Comment: Elec tronically Signed By: Tosha BLAS, Alban\.br\Date and Time Signed: 06/23/23 13:46 EDT\.br\Electronically Co-Signed [...] medicines. These include steroids, antibiotics, and some scog-nku-eisizsp medicines, such as aspirin or ibuprofen. ? [...] these instructions at home: Medicines ? Take safb-tuj-tcaqxaq and prescription medicines only as told by [...] your stom (more content not included)... Normal [facility] ED Patient Summaryon 023 ED Patient Summary (Inserted Image. Zenaida ble to display) [address] [address] Patient Discharge Instructions Person Information Name: AZUL ONTIVEROS Age: 32 Years Arrival Date: 06/23/2023 09:19:14 Discharge Diagnosis: Gastritis Primary Care Physician: TEZ ANGEL MD Provider Information Primary Provider: Alexx Pena DO Advanced Drying Machine Operator:Alban Givens PA-C The exam and treatment you received in the Emergency Department were for an urgent problem and are not intended as complete care. It is important that you follow up with a doctor, nurse practitioner, or physician?s chiropractor assistant for ongoing care. If your symptoms [...] Instructions: With: Address: When: Michael Patino [address] [place] [address], [address], [address] [phone] Business (1) In 3 days 06/26/2023 With: Address: When: TEZ ANGEL [address] [place], [place] [phone] Business (1) In 3 days 06/26/2023 In the event that this physician does not participate in your insurance network, please consult with your insurance company to find a nearby participating provider. Patient Education Materials: Gastritis, Adult A MESSAGE TO ALL PATIENTS REGARDING OPIOIDS PRESCRIPTION OPIOIDS: WHAT YOU NEED TO KNOW Prescription opioids can be used to help relieve rsrwaglm-em-pgcrlv pain and are often prescribed following a [...] struggling wit (more content not included)... Normal [facility] HEMATOLOGYOrdered By: SYSTEM SYSTEM on 06-23-2023 [...] 06-23-2023 Albumin [Mass/Vol] 3.5 g/dL Normal 3.3-5.0 [facility] Comment on above: Performed By: #### 2 462187, 4905264, 5010151, 9864900, 8442788, 49306427, 18671025 ####[facility] [address] [place] [address] Albumin/Globulin (S) [Mass conc ratio] 1.1 Normal 1.1-2.2 [facility] Comment on above: Performed By: #### 2 114427, 5486534, 2873049, 5561110, 3070501, 50253990, 68944253 ####[facility] [address] [place] [address] ALP [Catalytic activity/Vol] 77 Int._Unit/L Normal 21-98 [facility] Comment on above: Performed By: #### 2 087763, 6275234, 1899715, 1862047, 9448967, 24011173, 90987991 ####[facility] [address] [place] [address] ALT No additional P-5'-P [Catalytic activity/Vol] 17 Int._Unit/L Normal 6-46 [facility] Comment on above: Performed By: #### 2 087856, 9071288, 4255259, 6289552, 8979471, 55481506, 57681087 ####[facility] [address] [place] [address] AST [Catalytic activity/Vol] 22 Int._Unit/L Normal 5-43 [facility] Comment on above: Performed By: #### 2 239490, 5027013, 7819038, 4799660, 2675696, 59531481, 27326686 ####[facility] [address] [place] [address] Bilirubin [Mass/Vol] 0.5 mg/dL Normal 0.0-1.1 [facility] Comment on above: Performed By: #### 2 613666, 4941937, 8399778, 7520456, 3009850, 26922221, 47552062 ####[address] [address] Bilirubin.direct [Mass/Vol] 0.2 mg/dL Normal 0.1-0.4 [facility] Comment on above: Performed By: #### 2 088160, 5253779, 9730703, 1028261, 8173862, 34976719, 23266893 ####[place] [address] [place] [address] Bilirubin.indirect [Mass or moles/Vol] 0.3 mg/dL Normal 0.1-0.9 [facility] Comment on above: Performed By: #### 2 607413, 1715642, 3552195, 6095953, 5755461, 97083404, 13881888 ####[facility] [address] [place] [address] Globulin (S) [Mass/Vol] 3.3 g/dL Normal 1.4-4.0 [facility] Comment on above: Performed By: #### 2 988583, 8060191, 7729551, 0977157, 7739364, 99849467, 92160007 ####[facility] [address] [place] [address] Protein [Mass/Vol] 6.8 g/dL Normal 6.0-7.8 [facility] Comment on above: Performed By: #### 2 569882, 9991907, 6023194, 8146108, 9854267, 38085593, 65913567 ####[facility] [address] [place] [address] Lipase Levelon 06-23-2023 Lipase [Catalytic activity/Vol] 28 U/L Normal 13-58 [facility] Comment on above: Performed By: #### 2 331604, 8672587, 8407929, 4588181, 1302711, 58149349, 04763855 #### [facility] [address] [place] [address] SEROLOGYOrdered By: Tami Randle on 06-23-2023 Beta hCG Ql Negative (06/23/23 10:07 AM) Normal [facility] Man Sero UA With Cult Reflexon 2022 Bacteria LM Ql (Urine sed) TRACE Normal Trace [facility] Comment on above: Performed By: #### 1 3269316 #### [facility] [address] [place] [address] Bilirubin Ql (U) Negative Normal Negative [facility] Comment on above: Performed By: #### 1 3034926 #### [facility] [address] [place] [address] Clarity (U) SL CLOUDY Invalid Interpretation Code [facility] Comment on above: Performed By: #### 1 1702063 #### [facility] [address] [place] [address] Color (U) RED Abnormal Yellow [facility] Comment on above: Performed By: #### 1 0986934 #### [facility] [address] [place] [address] Epithelial cells.squamous LM.HPF (Urine sed) [#/Area] 3-4 Normal 0-2 [facility] Comment on above: Performed By: #### 1 7318933 #### [facility] [address] [place] [address] Glucose Test strip (U) [Mass/Vol] Negative Normal Negative [facility] Comment on above: Performed By: #### 1 0165142 #### [facility] [address] [place] [address] Hemoglobin Ql (U) 3+ Abnormal Negative [facility] Comment on above: Performed By: #### 1 9772982 #### [facility] [address] [place] [address] Ketones (U) [Mass/Vol] Negative Normal Negative [facility] Comment on above: Performed By: #### 1 2290243 #### [facility] [address] [place] [address] Scofield.plasma/Lithi um.RBC (Bld) [Mass ratio] >75 Abnormal 0-3 [facility] Comment on above: Performed By: #### 1 4334889 #### [facility] [address] [place] [address] Mucus Ql (Urine sed) TRACE Normal [facility] Comment on above: Performed By: #### 1 7743136 #### [facility] [address] [place] [address] Nitrite Ql (U) Negative Normal Negative [facility] Comment on above: Performed By: #### 1 7052194 #### [facility] [address] [place] [address] pH (U) 6.0 [pH] Invalid Interpretation Code 5.0-9.0 [facility] Comment on above: Performed By: #### 1 7122587 #### [facility] [address] [place] [address] Protein (U) [Mass/Vol] 1+ Abnormal Negative [facility] Comment on above: Performed By: #### 1 9352351 #### [facility] [address] [place] [address] Specific gravity (U) [Rel density] <=1.005 Invalid Interpretation Code 1.005-1.03 0 [facility] Comment on above: Performed By: #### 1 4785730 #### [facility] [address] [place] [address] Type of Urine collection method Clean Catch Normal [facility] Comment on above: Performed By: #### 1 1788607 #### [facility] [address] [place] [address] Urobilinogen Qn (U) 0.2 {Stevenson'U}/dL Normal 0.0-1.0 [facility] Comment on above: Performed By: #### 1 9606823 #### [facility] [address] [place] [address] WBC Auto Ql (U) Negative Normal Negative [facility] Comment on above: Performed By: #### 1 2105373 #### [facility] [address] [place] [address] WBC LM.HPF (Urine sed) [#/Area] 0-5 Normal 0-5 [facility] Comment on above: Performed By: #### 1 5687708 #### [facility] [address] [place] [address] URINALYSISOrdered By: Dinorah Randle on 06-23-2023 Bacteria [...] AM) Normal Negative [facility] UA Auto SS Scofield.plasma/Lithi um.RBC (Bld) [Mass ratio] >75 /HPF Invalid Interpretation Code 0-3/HPF [facility] UA Auto SS Mucus Ql (Urine sed) Trace (06/23/23 11:23 AM) Normal [facility] UA Auto SS Nitrite Ql (U) Negative (06/23/23 11:23 AM) Normal Negative [facility] UA Auto SS pH (U) 6.0 *NA* (06/23/23 11:23 AM) Invalid Interpretation Code 5.0 - 9.0 [facility] UA Auto SS Protein (U) [Mass/Vol] 1+ *ABN* (06/23/23 11:23 AM) Invalid Interpretation Code Negative [facility] UA Auto SS Specific gravity (U) [Rel density] <=1.005 *NA* (06/23/23 11:23 AM) Invalid Interpretation Code 1.005 - 1.030 [facility] UA Auto SS UA Spec Desc Clean Catch (06/23/23 11:23 AM) Normal [facility] UA Auto SS Urobilinogen Qn (U) 0.2416075 {Stevenson'U}/dL Normal 0.0 - 1.0 EU/dL FT [...] mGy = na DAP = na Normal [facility] eGFRon 06-23-2023 GFR/1.73 sq M.predicted among non-blacks MDRD (S/P/Bld) [Vol rate/Area] 68 mL/min/1.73 m2 Normal >=59 [facility] Comment on above: Order Comment: Order added by Discern Expert. Result Comment: Program Management Manager jaden kidney disease could be indicated at eGFR's of less than 60 mL/min/1.73m2. Kidney failure is indicated at less than 15 mL/min/1.73m2. Performed By: #### 2 960332, 8507968, 1458574, 5605339, 0678861, 22503037, 81993092 ####[facility] [address] [place] [address] TSHon 01-09-2023 TSH 1.192 uIU/mL Normal 0.358-3.74 0 [facility] Comment on above: Performed By: #### T SH #### [facility] [address] [place] [address] Dr. Gage Mathis PAP ACOG PANEL 2: 30 to 65on 01-08-2023 . . Normal [facility] Comment on above: Result Comment: Perf ormed at: WB Performed By: #### L IVER, LIPID, TSH, FT3, BMP #### [facility] [address] [place] [address] [address] Gage Mathis Age Gdln ACOG Testing 30-65 Normal [facility] Comment on above: Performed By: #### L IVER, LIPID, TSH, FT3, BMP #### [facility] [address] [place] [address] Dr. Gage Mathis DIAGNOSIS: Comment Normal [facility] Comment on above: Result Comment: NEGA TIVE FOR INTRAEPITHELIAL LESION OR MALIGNANCY. THIS SPECIMEN WAS RESCREENED PART OF OUR ELECTRIC FREIGHT CAR OPERATOR PROGRAM. Performed at: WB Performed By: #### L IVER, LIPID, TSH, FT3, BMP #### [facility] [address] [place] [address] [address] Gage Mathis HPV Aptima Negative Normal Negative [facility] Comment on above: Result Comment: This nucleic acid amplification test detects fourteen high-risk HPV types (16,18,31,33,35,39,45,51,52,56,58,59,66,68) without differentiation. Performed at: =G Performed By: #### L IVER, LIPID, TSH, FT3, BMP #### [facility] [address] [place] [address] [address] Gage Mathis HPV Genotype Reflex Comment Normal [facility] Comment on above: Result Comment: Crit eria not met, HPV Genotype not performed. Performed at: WB Performed By: #### L IVER, LIPID, TSH, FT3, BMP #### [facility] [address] [place] [address] [address] Gage Mathis Methodology: Comment Normal [facility] Comment on above: Result Comment: This liquid based ThinPrep(R) pap test was screened with the use of an image guided system. Performed at: WB Performed By: #### L IVER, LIPID, TSH, FT3, BMP #### [facility] [address] [place] [address] [address] Gage Mathis Note: Comment Normal [facility] Comment on [...] L IVER, LIPID, TSH, FT3, BMP #### [facility] [address] [place] [address] [address] Gage Mathis Performed by: Comment Normal [facility] Comment on above: Result Comment: Zoya Davis, Inspector Structural Bonding (ASCP) Performed at: WB Performed By: #### L IVER, LIPID, TSH, FT3, BMP #### [facility] [address] [place] [address] Dr. Gage Mathis QC reviewed by: Comment Normal [facility] Comment on above: Result Comment: Clotilde Suresh, Supervisory Inspector Structural Bonding (ASCP) Performed at: WB Performed By: #### L IVER, LIPID, TSH, FT3, BMP #### [facility] [address] [place] [address] Dr. Gage Mathis Specimen adequacy: Comment Normal [facility] Comment on above: Result Comment: Sati sfactory for evaluation. Endocervical and/or squamous metaplastic cells (endocervical component) are present. Performed at: WB Performed By: #### L IVER, LIPID, TSH, FT3, BMP #### [facility] [address] [place] [address] Dr. Gage Mathis CBC AUTO DIFFon 12-04-2022 BASO # 0.0 103/ul Normal 0.0-0.1 [facility] Comment on above: Performed By: #### L IVER, LIPID, TSH, FT3, BMP #### [facility] [address] [place] [address] Dr. Gage Mathis Basophils/100 WBC (Bld) 0.4 % Normal 0.2-2.0 [facility] Comment on above: Performed By: #### L IVER, LIPID, TSH, FT3, BMP #### [facility] [facility] [address] [place] [address] Dr. Gage Mathis EO # 0.1 103/ul Normal 0.0-0.7 [facility] Comment on above: Performed By: #### L IVER, LIPID, TSH, FT3, BMP #### [facility] [address] [place] [address] Dr. Gage Mathis Eosinophils/100 WBC (Bld) 1.3 % Normal 0.9-7.0 [facility] Comment on above: Performed By: #### L IVER, LIPID, TSH, FT3, BMP #### [facility] [address] [place] [address] Dr. Gage Mathis Erythrocyte distribution width (RBC) [Ratio] 12.4 % Normal 11.0-15.0 [facility] Comment on above: Performed By: #### L IVER, LIPID, TSH, FT3, BMP #### [facility] [address] [place] [address] Dr. Gage Mathis Hematocrit (Bld) [Volume fraction] 37.1 % Normal 36.0-48.0 [facility] Comment on above: Performed By: #### L IVER, LIPID, TSH, FT3, BMP #### [facility] [address] [place] [address] Dr. Gage Mathis Hemoglobin (Bld) [Mass/Vol] 12.1 g/dL Normal 12.0-16.0 [facility] Comment on above: Performed By: #### L IVER, LIPID, TSH, FT3, BMP #### [facility] [address] [place] [address] Dr. Gage Mathis IG # 0.01 10e3/ul Normal 0.00-0.03 [facility] Comment on above: Performed By: #### L IVER, LIPID, TSH, FT3, BMP #### [facility] [address] [place] [address] Dr. Gage Mathis IG % 0.2 % Normal 0.0-0.5 [facility] Comment on above: Performed By: #### L IVER, LIPID, TSH, FT3, BMP #### [facility] [address] [place] [address] Dr. Gage Mathis LYMPH # 1.6 103/ul Normal 1.2-3.8 [facility] Comment on above: Performed By: #### L IVER, LIPID, TSH, FT3, BMP #### [facility] [address] [place] [address] Dr. Gage Mathis Lymphocytes/100 WBC (Bld) 30.6 % Normal 20.5-60.0 [facility] Comment on above: Performed By: #### L IVER, LIPID, TSH, FT3, BMP #### [facility] [address] [place] [address] Dr. Gage Mathis MANUAL DIFF REQ NO Normal [facility] Comment on above: Performed By: #### L IVER, LIPID, TSH, FT3, BMP #### [facility] [address] [place] [address] Dr. Gage Mathis MCH (RBC) [Entitic mass] 31.8 pg Normal 26.7-34.0 [facility] Comment on above: Performed By: #### L IVER, LIPID, TSH, FT3, BMP #### [facility] [address] [place] [address] Dr. Gage Mathis MCHC (RBC) [Mass/Vol] 32.6 g/dL Normal 29.9-35.2 [facility] Comment on above: Performed By: #### L IVER, LIPID, TSH, FT3, BMP #### [facility] [address] [place] [address] Dr. Gage Mathis MCV (RBC) [Entitic vol] 97.4 fL Normal 81.0-99.0 [facility] Comment on above: Performed By: #### L IVER, LIPID, TSH, FT3, BMP #### [facility] [address] [place] [address] Dr. Gage Mathis MONO # 0.4 103/ul Normal 0.3-0.8 [facility] Comment on above: Performed By: #### L IVER, LIPID, TSH, FT3, BMP #### [facility] [address] [place] [address] Dr. Gage Mathis Monocytes/100 WBC (Bld) 8.4 % Normal 1.7-12.0 [facility] Comment on above: Performed By: #### L IVER, LIPID, TSH, FT3, BMP #### [facility] [address] [place] [address] Dr. Gage Mathis NEUT # 3.1 103/ul Normal 1.4-6.5 [facility] Comment on above: Performed By: #### L IVER, LIPID, TSH, FT3, BMP #### [facility] [address] [place] [address] Dr. Gage Mathis Neutrophils/100 WBC (Bld) 59.1 % Normal 43.0-75.0 [facility] Comment on above: Performed By: #### L IVER, LIPID, TSH, FT3, BMP #### [facility] [address] [place] [address] Dr. Gage Mathis Platelet mean volume (Bld) [Entitic vol] 10.1 fL Normal 9.5-13.5 [facility] Comment on above: Performed By: #### L IVER, LIPID, TSH, FT3, BMP #### [facility] [address] [place] [address] Dr. Gage Mathis PLT 205 103/ul Normal 150-450 [facility] Comment on above: Performed By: #### L IVER, LIPID, TSH, FT3, BMP #### [facility] [address] [place] [address] Dr. Gage Mathis RBC 3.81 106/ul Critically low 4.20-5.40 [facility] Comment on above: Performed By: #### L IVER, LIPID, TSH, FT3, BMP #### [facility] [address] [place] [address] Dr. Gage Mathis WBC 5.2 103/ul Normal 4.0-11.0 [facility] Comment on above: Performed By: #### L IVER, LIPID, TSH, FT3, BMP #### [facility] [address] [place] [address] Dr. Gage Mathis FREE T4on 12-04-2022 Free T4 [Mass/Vol] 0.98 ng/dL Normal 0.76-1.46 [facility] Comment on above: Performed By: #### L IVER, LIPID, TSH, FT3, BMP #### [facility] [address] [place] [address] Dr. Gage Mathis GLYCOHEMOGLOBIN A1Con 2022 ADA RECOMMENDATION SEE BELOW Normal [facility] Comment on above: Result Comment: ADA RECOMMENDED LIMIT 4.0 - 6.0 ADA THERAPEUTIC TARGET < 7.0 ACTION SUGGESTED > 7.0 Performed By: #### L IVER, LIPID, TSH, FT3, BMP #### [facility] [address] [place] [address] Dr. Gage Mathis Glucose [Mass/Vol] 100 mg/dL Normal [facility] Comment on above: Performed By: #### L IVER, LIPID, TSH, FT3, BMP #### [facility] [address] [address] [address] Gage Mathis HbA1c (Bld) [Mass fraction] 5.1 % Normal 4.5-6.2 [facility] Comment on above: Performed By: #### L IVER, LIPID, TSH, FT3, BMP #### [facility] [address] [place] [address] Dr. Gage Mathis PREG QUANT HCGon 12-04-2022 HCG QUANT <1 Normal [facility] Comment on above: Performed By: #### L IVER, LIPID, TSH, FT3, BMP #### [facility] [address] [place] [address] Dr. Gage Mathis HCG RANGE SEE BELOW Normal [facility] Comment on above: Result Comment: 5-50 0.2-1 WEEK 50-500 1-2 WEEKS 100-5,000 2-3 WEEKS 500-10,000 3-4 WEEKS 1,000-50,000 4-5 WEEKS 10,000-100,000 5-6 WEEKS 15,000-200,000 6-8 WEEKS 10,000-100,000 2-3 MONTHS Performed By: #### L IVER, LIPID, TSH, FT3, BMP #### [facility] [address] [place] [address] Dr. Gage Mathis PROTIMEon 12-04-2022 INR Coag (PPP) [Relative time] 0.94 {INR} Normal [facility] Comment on above: Performed By: #### L IVER, LIPID, TSH, FT3, BMP #### [facility] [address] [place] [address] Dr. Gage Mathis INR GUIDELINES SEE BELOW Normal [facility] Comment on above: Result Comment: KALEB RED INR: 2.0 - 3.0 CONDITIONS NOT LISTED BELOW 2.5 - 3.5 FOR PROSTHETIC HEART VALVE REPLACEMENT 2.5 - 3.5 RECURRENT THROMBOSIS Performed By: #### L IVER, LIPID, TSH, FT3, BMP #### [facility] [address] [place] [address] Dr. Gage Mathis PT Coag (PPP) [Time] 10.0 s Normal 9.0-11.6 [facility] Comment on above: Performed By: #### L IVER, LIPID, TSH, FT3, BMP #### [facility] [address] [place] [address] Dr. Gage Mathis PTTon 12-04-2022 aPTT Coag (Bld) [Time] 28.1 s Normal 22.3-36.2 [facility] Comment on above: Performed By: #### L IVER, LIPID, TSH, FT3, BMP #### [facility] [address] [place] [address] Dr. Gage Mathis TSHon 12-04-2022 TSH 4.110 uIU/mL Critically high 0.358-3.74 0 [facility] Comment on above: Performed By: #### L IVER, LIPID, TSH, FT3, BMP #### [facility] [address] [place] [address] Dr. Gage Mathis CBC AUTO DIFFon 10-09-2022 BASO # 0.0 103/ul Normal 0.0-0.1 [facility] Comment on above: Performed By: #### C BC #### [facility] [address] [place] [address] Dr. Gage Mathis Basophils/100 WBC (Bld) 0.1 % Critically low 0.2-2.0 [facility] Comment on above: Performed By: #### C BC #### [facility] [address] [place] [address] Dr. Gage Mathis EO # 0.0 103/ul Normal 0.0-0.7 [facility] Comment on above: Performed By: #### C BC #### [facility] [address] [place] [address] Dr. Gage Mathis Eosinophils/100 WBC (Bld) 0.0 % Critically low 0.9-7.0 [facility] Comment on above: Performed By: #### C BC #### [facility] [address] [place] [address] Dr. Gage Mathis Erythrocyte distribution width (RBC) [Ratio] 13.0 % Normal 11.0-15.0 [facility] Comment on above: Performed By: #### C BC #### [facility] [address] [place] [address] Dr. Gage Mathis Hematocrit (Bld) [Volume fraction] 38.6 % Normal 36.0-48.0 [facility] Comment on above: Performed By: #### C BC #### [facility] [address] [place] [address] Dr. Gage Mathis Hemoglobin (Bld) [Mass/Vol] 12.4 g/dL Normal 12.0-16.0 [facility] Comment on above: Performed By: #### C BC #### [facility] [address] [place] [address] Dr. Gage Mathis IG # 0.05 10e3/ul Critically high 0.00-0.03 [place] Comment on above: Performed By: #### C BC #### [facility] [address] [place] [address] Dr. Gage Mathis IG % 0.5 % Normal 0.0-0.5 [facility] Comment on above: Performed By: #### C BC #### [facility] [address] [place] [address] Dr. Gage Mathis LYMPH # 2.8 103/ul Normal 1.2-3.8 [facility] Comment on above: Performed By: #### C BC #### [facility] [address] [place] [address] Dr. Gage Mathis Lymphocytes/100 WBC (Bld) 26.2 % Normal 20.5-60.0 [facility] Comment on above: Performed By: #### C BC #### [facility] [address] [place] [address] Dr. Gage Mathis MANUAL DIFF REQ NO Normal [facility] Comment on above: Performed By: #### C BC #### [facility] [address] [place] [address] Dr. Gage Mathis MCH (RBC) [Entitic mass] 32.0 pg Normal 26.7-34.0 [facility] Comment on above: Performed By: #### C BC #### [facility] [address] [place] [address] Dr. Gage Mathis MCHC (RBC) [Mass/Vol] 32.1 g/dL Normal 29.9-35.2 [facility] Comment on above: Performed By: #### C BC #### [facility] [address] [place] [address] Dr. Gage Mathis MCV (RBC) [Entitic vol] 99.5 fL Critically high 81.0-99.0 [facility] Comment on above: Performed By: #### C BC #### [facility] [address] [place] [address] Dr. Gage Mathis MONO # 0.6 103/ul Normal 0.3-0.8 [facility] Comment on above: Performed By: #### C BC #### [facility] [address] [place] [address] Dr. Gage Mathis Monocytes/100 WBC (Bld) 5.5 % Normal 1.7-12.0 [facility] Comment on above: Performed By: #### C BC #### [facility] [address] [place] [address] Dr. Gage Mathis NEUT # 7.1 103/ul Critically high 1.4-6.5 [facility] Comment on above: Performed By: #### C BC #### [facility] [address] [place] [address] Dr. Gage Mathis Neutrophils/100 WBC (Bld) 67.7 % Normal 43.0-75.0 [facility] Comment on above: Performed By: #### C BC #### [facility] [address] [place] [address] Dr. Gage Mathis Platelet mean volume (Bld) [Entitic vol] 10.0 fL Normal 9.5-13.5 [facility] Comment on above: Performed By: #### C BC #### [facility] [address] [place] [address] Dr. Gage Mathis PLT 271 103/ul Normal 150-450 [facility] Comment on above: Performed By: #### C BC #### [facility] [address] [address] [address] Gage Mathis RBC 3.88 106/ul Critically low 4.20-5.40 [facility] Comment on above: Performed By: #### C BC #### [facility] [address] [place] [address] Dr. Gage Mathis WBC 10.5 103/ul Normal 4.0-11.0 [facility] Comment on above: Performed By: #### C BC #### [facility] [address] [place] [address] Dr. Gage Mathis FREE T3on 10-09-2022 FREE T3 1.64 pg/mlL Critically low 2.18-3.98 [facility] Comment on above: Performed By: #### L IVER, LIPID, TSH, FT3, BMP #### [facility] [address] [place] [address] Dr. Gage Mathis FREE T4on 10-09-2022 Free T4 [Mass/Vol] 1.01 ng/dL Normal 0.76-1.46 [facility] Comment on above: Performed By: #### F T4 #### [facility] [address] [place] [address] Dr. Gage Mathis GLYCOHEMOGLOBIN A1Con 2022 ADA RECOMMENDATION SEE BELOW Normal [facility] Comment on above: Result Comment: ADA RECOMMENDED LIMIT 4.0 - 6.0 ADA THERAPEUTIC TARGET < 7.0 ACTION SUGGESTED > 7.0 Performed By: #### L IVER, LIPID, TSH, FT3, BMP #### [facility] [address] [place] [address] Dr. Gage Mathis Glucose [Mass/Vol] 100 mg/dL Normal [facility] Comment on above: Performed By: #### L IVER, LIPID, TSH, FT3, BMP #### [facility] [address] [address] [address] Gage Mathis HbA1c (Bld) [Mass fraction] 5.1 % Normal 4.5-6.2 [facility] Comment on above: Performed By: #### L IVER, LIPID, TSH, FT3, BMP #### [facility] [address] [place] [address] Dr. Gage Mathis LIPID PROFILEon 10-09-2022 CHOL-HDL RATIO NORM SEE BELOW Normal [facility] Comment on above: Result Comment: 3.3 - 4.4 LOW RISK 4.4 - 7.1 AVERAGE RISK 7.1 - 11.0 MODERATE RISK >11.0 HIGH RISK Performed By: #### L IVER, LIPID, TSH, FT3, BMP #### [facility] [address] [place] [address] Dr. Gage Mathis Cholesterol [Mass/Vol] 162 mg/dL Normal <=200 [facility] Comment on above: Performed By: #### L IVER, LIPID, TSH, FT3, BMP #### [facility] [address] [place] [address] Dr. Gage Mathis Cholesterol in HDL [Mass/Vol] 78 mg/dL Critically high 40-60 [facility] Comment on above: Performed By: #### L IVER, LIPID, TSH, FT3, BMP #### [facility] [address] [place] [address] Dr. Gage Mathis Cholesterol in LDL [Mass/Vol] 72.8 mg/dL Normal [facility] Comment on above: Performed By: #### L IVER, LIPID, TSH, FT3, BMP #### [facility] [address] [place] [address] Dr. Gage Mathis Cholesterol.total/Ch olesterol in HDL [Mass ratio] 2.1 {ratio} Normal [facility] Comment on above: Performed By: #### L IVER, LIPID, TSH, FT3, BMP #### [facility] [address] [address] [address] Gage Mathis HDL NORMAL > or = 60 mg/dl - LO W CARDIOVASCULAR RISK <40 mg/dl - HIGH CARDIOVASCULAR RISK Normal [facility] Comment on above: Performed By: #### L IVER, LIPID, TSH, FT3, BMP #### [facility] [address] [address] [address] Gage Mathis LDL CALC NORMAL SEE BELOW Normal [facility] Comment on above: Result Comment: <100 mg/dl OPTIMAL 100 - 129 mg/dl NEAR OR ABOVE OPTIMAL 130 - 159 mg/dl BORDERLINE HIGH 160 - 189 mg/dl HIGH >190 mg/dl VERY HIGH Performed By: #### L IVER, LIPID, TSH, FT3, BMP #### [facility] [address] [address] [address] Gage Mathis Triglyceride [Mass/Vol] 56 mg/dL Normal <=150 [facility] Comment on above: Performed By: #### L IVER, LIPID, TSH, FT3, BMP #### [facility] [address] [address] [address] Gage Mathis VLDL CALC 11.2 mg/dL Normal [facility] Comment on above: Performed By: #### L IVER, LIPID, TSH, FT3, BMP #### [facility] [address] [address] [address] Gage Mathis LIVER PROFILEon 10-09-2022 Albumin [Mass/Vol] 3.2 g/dL Critically low 3.4-5.0 [facility] Comment on above: Performed By: #### L IVER, LIPID, TSH, FT3, BMP #### [facility] [address] [address] [address] Gage Mathis Albumin/Globulin [Mass ratio] 0.9 {ratio} Normal [facility] Comment on above: Performed By: #### L IVER, LIPID, TSH, FT3, BMP #### [facility] [address] [address] [address] Gage Mathis ALP [Catalytic activity/Vol] 89 U/L Normal 46-116 [facility] Comment on above: Performed By: #### L IVER, LIPID, TSH, FT3, BMP #### [facility] [address] [place] [address] Dr. Gage Mathis ALT [Catalytic activity/Vol] 49 U/L Normal 14-59 [facility] Comment on above: Performed By: #### L IVER, LIPID, TSH, FT3, BMP #### [facility] [address] [place] [address] Dr. Gage Mathis AST [Catalytic activity/Vol] 15 U/L Normal 15-37 [facility] Comment on above: Performed By: #### L IVER, LIPID, TSH, FT3, BMP #### [facility] [address] [place] [address] Dr. Gage Mathis BILI, CONJUGATED 0.1 mg/dL Normal 0.0-0.2 [facility] Comment on above: Performed By: #### L IVER, LIPID, TSH, FT3, BMP #### [facility] [address] [place] [address] Dr. Gage Mathis Bilirubin [Mass/Vol] 0.3 mg/dL Normal 0.2-1.0 [facility] Comment on above: Performed By: #### L IVER, LIPID, TSH, FT3, BMP #### [facility] [address] [place] [address] Dr. Gage Mathis Globulin (S) [Mass/Vol] 3.7 g/dL Normal [facility] Comment on above: Performed By: #### L IVER, LIPID, TSH, FT3, BMP #### [facility] [address] [place] [address] Dr. Gage Mathis Protein [Mass/Vol] 6.9 g/dL Normal 6.4-8.2 [facility] Comment on above: Performed By: #### L IVER, LIPID, TSH, FT3, BMP #### [facility] [address] [place] [address] Dr. Gage Mathis PROF CHEM 8 (BAS METB)on Anion gap [Moles/Vol] 12.1 mmol/L Normal [facility] Comment on above: Performed By: #### L IVER, LIPID, TSH, FT3, BMP #### [facility] [address] [place] [address] Dr. Gage Mathis Calcium [Mass/Vol] 9.0 mg/dL Normal 8.5-10.1 [facility] Comment on above: Performed By: #### L IVER, LIPID, TSH, FT3, BMP #### [facility] [address] [place] [address] Dr. Gage Mathis Chloride [Moles/Vol] 104 mmol/L Normal 98-107 [facility] Comment on above: Performed By: #### L IVER, LIPID, TSH, FT3, BMP #### [facility] [address] [place] [address] Dr. Gage Mathis CO2 [Moles/Vol] 29.6 mmol/L Normal 21.0-32.0 [facility] Comment on above: Performed By: #### L IVER, LIPID, TSH, FT3, BMP #### [facility] [address] [place] [address] Dr. Gage Mathis Creatinine [Mass/Vol] 0.82 mg/dL Normal 0.55-1.02 [facility] Comment on above: Performed By: #### L IVER, LIPID, TSH, FT3, BMP #### [facility] [address] [place] [address] Dr. Gage Mathis EGFR-AF TOGOLESE >60 Normal >=60 [facility] Comment on above: Performed By: #### L IVER, LIPID, TSH, FT3, BMP #### [facility] [address] [place] [address] Dr. Gage Mathis EGFR-NON AF TOGOLESE >60 Normal >=60 [facility] Comment on above: Performed By: #### L IVER, LIPID, TSH, FT3, BMP #### [facility] [address] [place] [address] Dr. Gage Mathis Glucose [Mass/Vol] 92 mg/dL Normal 74-106 [facility] Comment on above: Performed By: #### L IVER, LIPID, TSH, FT3, BMP #### [facility] [address] [place] [address] Dr. Gage Mathis Potassium [Moles/Vol] 3.7 mmol/L Normal 3.5-5.1 [facility] Comment on above: Performed By: #### L IVER, LIPID, TSH, FT3, BMP #### [facility] [address] [place] [address] Dr. Gage Mathis Sodium [Moles/Vol] 142 mmol/L Normal 136-145 [facility] Comment on above: Performed By: #### L IVER, LIPID, TSH, FT3, BMP #### [facility] [address] [place] [address] Dr. Gage Mathis Urea nitrogen [Mass/Vol] 14.0 mg/dL Normal 7.0-18.0 [facility] Comment on above: Performed By: #### L IVER, LIPID, TSH, FT3, BMP #### [facility] [address] [place] [address] Dr. Gage Mathis Urea nitrogen/Creatinine [Mass ratio] 17.1 mg/mg Normal [facility] Comment on above: Performed By: #### L IVER, LIPID, TSH, FT3, BMP #### [facility] [address] [place] [address] Dr. Gage Mathis TSHon 10-09-2022 TSH 1.637 uIU/mL Normal 0.358-3.74 0 [facility] Comment on above: Performed By: #### L IVER, LIPID, TSH, FT3, BMP #### [facility] [address] [place] [address] Dr. Gage Mathis VITAMIN D 25 OHon 10-09-2022 VIT D 25-OH 41.1 ng/mL Normal [facility] Comment on above: Performed By: #### V ITAD #### [facility] [address] [place] [address] Dr. Gage Mathis VIT D RANGES SEE BELOW Normal [facility] Comment on above: Result Comment: <20 ng/mL Vit D deficient 20 - <30 ng/mL Vit D insufficient 30 - 100 ng/mL Vit D sufficient >100 ng/mL Potential Toxicity Performed By: #### V ITAD #### [facility] [address] [address] [address] Gage Mathis COVID/FLU RT-PCRon 3 SARS-CoV-2 (COVID-19) RNA EB+probe Ql (Unsp spec) Negative [employer] Other COVID/FLU RT-PCR Negative [facility] [employer] Other COVID Quick Testingon 2021 Result Negative [employer] Other US PELVIS AND TRANSVAGon US PELVIS [...] BING NOE Date: 2022-05-02 17:47 Normal [facility] CHLAMYDIA/GONOCOCCUS EB (SW AB/URINE/PAPon 04-11-2022 Chlamydia trachomatis, EB Negative Normal Negative [facility] Comment on above: Performed By: #### L IVER, LIPID, TSH, FT3, BMP #### [facility] [address] [place], [place] [address] Dr. Gage Mathis Neisseria gonorrhoeae, EB Negative Normal Negative [facility] Comment on above: Performed By: #### L IVER, LIPID, TSH, FT3, BMP #### [facility] [address] [address] [address] Gage Mathis VAGINITIS/VAGINOSIS DNA PROB Sincere 04-10-2022 Sol species Negative Normal Negative [facility] Comment on above: Performed By: #### V AGINT #### [facility] [address] [address] [address] Gage Mathis Gardnerella vaginalis Positive Abnormal Negative [facility] Comment on above: Performed By: #### V AGINT #### [facility] [address] [address] [address] Gage Mathis Trichomonas vaginalis Negative Normal Negative [facility] Comment on above: Performed By: #### V AGINT #### [facility] [address] [place] [address] Dr[address] Gage Mathis Basic Metabolic Panlon 08-06 Anion gap 3 molar conc 14 mmol/L Normal 9-18 [facility] Comment on above: Performed By: #### B MP, HFP ####[facility] [address] [place] [phone] Calcium mass conc 9.2 mg/dL Normal 8.5-10.2 [facility] Comment on above: Performed By: #### B MP, HFP ####[facility] [address] [place] [phone] Chloride molar conc 103 mmol/L Normal 97-105 [facility] Comment on above: Performed By: #### B MP, HFP ####[facility] [address]CKately[address] [place] [phone] CO2 molar conc 24 mmol/L Normal 22-30 [facility] Comment on above: Performed By: #### B MP, HFP ####[facility] [address]ately[address] [place] [phone] Creatinine mass conc 0.83 mg/dL Normal 0.58-0.[address] [facility] Comment on above: Performed By: #### B MP, HFP ####[facility] [address] [place], [place] [phone] eGFR- Amer. >60 Normal [facility] Comment on above: Performed By: #### B MP, HFP ####[facility] [place], [place] [phone] GFR/1.73 sq M predicted among non-blacks MDRD vol rate/area (S/P/Bld) mL/min/{1.73_m2} Normal [facility] Comment on above: Result Comment: eGFR (Estimated [...] GFR. Performed By: #### B MP, HFP ####[facility] [place], [place] [phone] Glucose mass conc 82 mg/dL Normal 74-99 [facility] Comment on above: Result Comment: The [place] Diabetes Association (ADA) provides guidance for cutoff [...] Standards of Medical Care in Diabetes 2016, [place] [employer]. Diabetes Care. 2016.39(Suppl 1). Performed By: #### B MP, HFP ####[facility], [place] [phone] Potassium molar conc 4.3 mmol/L Normal 3.7-5.[address] [facility] Comment on above: Performed By: #### B MP, HFP ####[facility] [place], [place] [phone] Sodium molar conc 141 mmol/L Normal 136-144 [facility] Comment on above: Performed By: #### B MP, HFP ####[facility], [place] [phone] Urea nitrogen mass conc 14 mg/dL Normal 7-21 [facility] Comment on above: Performed By: #### B MP, HFP ####[facility] [place], [place] [phone] CNOVSPon 08-06-2018 CNOVSP Visit (SP) Office (HEMAC[place]) PRINCE ALLENAZUL Rodriguez ([id number]) 1990 [facility] Time Provider Htkazjpwvu59/29/18 3:30 PM SHANT ROMERO HEMZULEIKA During your visit today, we recorded the following information about you: Temperature Pulse Respiration Blood pressure 98.8 degrees 87/minute 16/minute 128/77 Weight Height 123.2 kg 1.524 Kirstie Romero MD 08/06/2018 3:44 PM SignedDavina Allen is a 28 year old female [...] al. Chest 2012, 141:7S-47SNishimura RA, et al. [facility] 2017, 70: 252-289 APTT 23.0 - [...] oflaboratory APTT reagent in use throughout the [facility]. Platelet Neut Negative Negative Negative DRVVT Screen 32.7 - 46.7 sec 35.1 36.1 42.3 DRVVT Confirm Ratio <1.21 1.10 <1.21 class= rz_g swf9446 >0.91 <1.21 class= rz_6 dho6155 >1.06 DRVVT 1:1 Mix 32.7 - 46.7 sec 33.9 36.2 41.3 Hex Phase Screen 45.0 - 59.9 sec 34.7 54.5 Hex Phase Confirm 41.8 - 54.9 sec 32.6 47.7 Hex Phase Delta <9.1 delta sec 2.1 <9.1 delta sec class= rz_6 zre6235 >6.7 APTT Screen 24.4 - 33.4 sec 24.3 33.0CM Immediate PTT 1:1 Mix <33.2 sec 26.3 <33.2 sec class= rz_6 vsh7513 >30.6 Incubated PTT 1:1 Mix <35.0 sec 28.3 <35.0 sec class= rz_6 doe5744 >32.4 Thrombin Time <18.6 sec 17.7 <18.6 sec class= rz_6 zkd8977 >16.1 Interpretation(Lupus Anticoagulant) (NOTE) (NOTE)CMComment: Performing Pathologist: [...] GPL <9 <9CMComment: <10 GPL ? ? [id number] GPL ? Equivocal>40 GPL ? ? PositiveThe following results were obtained with the Inova QUANTA Lite LAVON IgG IIIELISA. Cardiolipin IgG values obtained with the different manufacturers' assay?methods may not be used interchangeably. The magnitude of the reported IgGlevels cannot be correlated to an endpoint titer. Cardiolipin Ab, IgM 0 - 11 MPL <9 9CMComment: <12 MPL ? ? Skiugzve82-28 MPL ? Equivocal>40 MPL ? ? PositiveThe following results were obtained with the Inova QUANTA Lite LAVON IgM IIIELISA. Cardiolipin IgM values obtained with different manufacturers' assaymethods may not be used interchangeably. The magnitude of the reported IgMlevels cannot be correlated to an endpoint titer. Cardiolipin Ab, IgA 0 - 11 APL <9 <9CMComment: <12 APL ? ? Gnkyhlqe10-11 APL ? Equivocal>40 APL ? ? PositiveThe following results were obtained with an Inova QUANTA Lite LAVON IgA IIIELISA. Cardiolipin IgA values obtained with different manufacturers' assaymethods may not be used interchangeably. The magnitude of the reported IgAlevels cannot be correlated to an endpoint titer. Beta 2 Glycoprotein, IgG <20 SGU <9 <20 SGU class= rz_6 [id number] ><9CMComment: < 20 ?SGU ? ?Catcwsvr17-63 SGU ? ?Low Positive> 80 ?SGU ? ?High PositiveThese results were obtained with the Ambassador[employer] QUANTA Lite B2 GPI IgG DAYNA. B2GPI IgG values obtained with different manufacturers' assay methods may not be?used interchangeably. The magnitude of the reported IgG levels cannot becorrelated to an endpoint titer. Beta 2 Glycoprotein, IgM <20 SMU <9 <20 SMU class= rz_6 fvj3512 ><9CMComment: < 20 ?SMU ? ?Vnumeezj01-31 SMU ? ?Low Positive> 80 ?SMU ? ?High PositiveThese results were obtained with the Ambassadorva QUANTA Lite B2 GPI IgM DAYNA. B2GPI IgM values obtained with different manufacturers' assay methods may not be?used interchangeably. The magnitude of the reported IgM levels cannot becorrelated to an endpoint titer.FACTOR V LEIDEN/PCROrder: [id number]: Final result ??Visible to patient: No (Not Released) Next appt: NoneDx: Positive dilute Idalia's viper venom...Component 3mo agoFactor V Leiden PCR Report (NOTE)Comment: Performing Pathologist: Alvina Sotomayor M.D., Ph.D.Factor V Leiden Mutation Result: NORMALHOMOCYSTEINEOrder: [id number]: Final result ??Visible to patient: No (Not Released) Next appt: NoneDx: Positive dilute Idalia's viper venom... Ref Range AND Units 3mo agoHomocysteine, Serum <15.1 umol/L 9.5Resulting Agency CCMSpecimen Collected: 04/20/18 ?2:22 PM Last Resulted: 04/21/18 ?1:31 PM LabFlowsheet Order Details View Encounter Lab and Collection Details RoutingResult HistoryOther Results from 04/20/2018FACTOR V LEIDEN/PCROrder: [id number]: Final result ??Visible to patient: No (Not [...] and Collection Details RoutingResult HistoryPROTHROMBIN GENE PCROrder: [id number]: Final result ??Visible to patient: No (Not Released) Next appt: NoneDx: Positive dilute Idalia's viper venom...Component 3mo agoPT Gene Report (NOTE)Comment: Performing Pathologist: Alvina Sotomayor M.D., Ph.D.PT Gene Mutation Result: NORMAL ?PT Gene Mutation Interpretation: The DNA sample is negative for [id number] point mutation in the 3' untranslated region [...] and Collection Details RoutingResult HistoryPROTEIN S CLOTTABLEOrder: [id number]: Final result ??Visible to patient: No (Not Released) Next appt: NoneDx: Positive dilute Idalia's viper venom... Ref Range AND Units 3mo agoProtein S Clottable 59 - 131 % 108Resulting Agency CCMSpecimen Collected: 04/20/18 ?2:22 PM Last Resulted: 04/21/18 ?9:13 AM LabFlowsheet Order Details View Encounter Lab and Collection Details RoutingResult HistoryPROTEIN C FUNCTOrder: [id number]: Final result ??Visible to patient: No (Not Released) Next appt: NoneDx: Positive dilute Idalia's viper venom... Ref Range AND Units 3mo agoPro C Fun 76 - 147 % 104Resulting Agency CCMSpecimen Collected: 04/20/18 ?2:22 PM Last Resulted: 04/21/18 ?9:13 AM LabFlowsheet Order Details View Encounter Lab and Collection Details RoutingResult HistoryANTITHROMBIN IIIOrder: [id number]: Final result ??Visible to patient: No (Not Released) Next appt: NoneDx: Positive dilute Idalia's viper venom... Ref Range AND Units 3mo agoAntithrombin Assay 84 - 138 % 93Resulting Agency CCMSpecimen Collected: 04/20/18 ?2:22 PM Last Resulted: 04/21/18 ?9:13 AM LabFlowsheet Order Details View Encounter Lab and Collection Details RoutingResult HistoryLUPUS ANTICOAG PLOrder: [id number]: Final result ??Visible to patient: No (Not [...] al. Chest 2012, 141:7S-47SNishimura RA, et al. [facility] 2017, 70: 252-289APTT 23.0 - 32.4 [...] oflaboratory APTT reagent in use throughout the [facility].Platelet Neut Negative NegativeDRVVT Screen 32.7 [...] 9 GPL <9Comment: <10 GPL ? ? [id number] GPL ? Equivocal>40 GPL ? ? PositiveThe following results were obtained with the Ambassadorva QUANTA Lite LAVON IgG IIIELISA. Cardiolipin IgG values obtained with the different manufacturers' assay?methods may not be used interchangeably. The magnitude of the reported IgGlevels cannot be correlated to an endpoint titer.Cardiolipin Ab, IgM 0 - 11 MPL 9Comment: <12 MPL ? ? Rsjxbkbc24-42 MPL ? Equivocal>40 MPL ? ? PositiveThe following results were obtained with the Ambassadorva QUANTA Lite LAVON IgM IIIELISA. Cardiolipin IgM values obtained with different manufacturers' assaymethods may not be used interchangeably. The magnitude of the reported IgMlevels cannot be correlated to an endpoint titer.Cardiolipin Ab, IgA 0 - 11 APL <9Comment: <12 APL ? ? Jllqjtkr36-19 APL ? Equivocal>40 APL ? ? PositiveThe following results were obtained with an Inova QUANTA Lite LAVON IgA IIIELISA. Cardiolipin IgA values obtained with different manufacturers' assaymethods may not be used interchangeably. The magnitude of the reported IgAlevels cannot be correlated to an endpoint titer.Beta 2 Glycoprotein, IgG <20 SGU <9Comment: < 20 ?SGU ? ?Zvylqwst58-13 SGU ? ?Low Positive> 80 ?SGU ? ?High PositiveThese results were obtained with the Property PointeA Lite B2 GPI IgG DAYNA. B2GPI IgG values obtained with different manufacturers' assay methods may not be?used interchangeably. The magnitude of the reported IgG levels cannot becorrelated to an endpoint titer.Beta 2 Glycoprotein, IgM <20 SMU <9Comment: < 20 ?SMU ? ?Hsojtrqp93-06 SMU ? ?Low Positive> 80 ?SMU ? ?High PositiveThese results were obtained with the [employer] QUANTA Lite B2 GPI IgM DAYNA. B2GPI IgM values obtained with different manufacturers' assay methods may not be?used interchangeably. The magnitude of the reported IgM levels cannot becorrelated to an endpoint titer.Resulting Agency CCMSpecimen Collected: 04/20/18 ?2:22 PM Last Resulted: 04/21/18 ?6:40 PM LabFlowsheet Order Details View Encounter Lab and Collection Details RoutingResult HistoryANA PANEL BLOOD SCRNOrder: [id number]: Final result ??Visible to patient: No (Not [...] for population. No indication for intervention needed.YE Mccrayefdawson Provider: LATASHA HU [[id number]]Allergies As of Date: 08/06/2018 Noted Allergy ReactionIODINE [...] by SHANT ROMERO MD on 08/06/18 Normal [facility] Hepatic Functn Panelon 08-06 Albumin mass conc 4.2 g/dL Normal 3.9-4.9 [facility] Comment on above: Performed By: #### B BRYANNA, [facility] ####[facility] [address], [place] [phone] ALP enzyme act/vol 75 U/L Normal 34-123 [facility] Comment on above: Performed By: #### B BRYANNA, [facility] ####[facility] [address], [place] [phone] ALT enzyme act/vol 21 U/L Normal 7-38 [facility] Comment on above: Performed By: #### B BRYANNA, SHIRA ####[place] [id number] [place], [place] [phone] AST enzyme act/vol 21 U/L Normal 13-35 [facility] Comment on above: Performed By: #### B MP, HFP ####[address] [phone] Bilirubin mass conc 0.3 mg/dL Normal 0.2-1.3 [facility] Comment on above: Performed By: #### B MP, HFP ####[place] [phone] Bilirubin,Conjugated <0.2 Normal <0.[address] [facility] Comment on above: Performed By: #### B MP, HFP ####[address] [phone] Protein mass conc 7.3 g/dL Normal 6.3-8.0 [facility] Comment on above: Performed By: #### B MP, HFP ####[place] [phone] PROGRESSon 08-06-2018 Protein mass conc HNO ID: [id number] thor: Shant Quinonez: (none)Author Type: PhysicianType: Progress [...] al. Chest 2012, 141:7S-47SNishjono RA, et al. [facility] 2017, 70: 252-289 APTT 23.0 - [...] lotoflaboratory APTT reagent in use throughout the [facility]. Platelet Neut Negative Negative Negative DRVVT Screen 32.7 - 46.7 sec 35.1 36.1 42.3 DRVVT Confirm Ratio <1.21 1.10 <1.21 class= rz_g atz3517 >0.91 <1.21 class= rz_6 xkb4575 >1.06 DRVVT 1:1 Mix 32.7 - 46.7 sec 33.9 36.2 41.3 Hex Phase Screen 45.0 - 59.9 sec 34.7 54.5 Hex Phase Confirm 41.8 - 54.9 sec 32.6 47.7 Hex Phase Delta <9.1 delta sec 2.1 <9.1 delta sec class= rz_6hlt1024 >6.7 APTT Screen 24.4 - 33.4 sec 24.3 33.0CM Immediate PTT 1:1 Mix <33.2 sec 26.3 <33.2 sec class= rz_6 wuo1267 >30.6 Incubated PTT 1:1 Mix <35.0 sec 28.3 <35.0 sec class= rz_6 tqg1380 >32.4 Thrombin Time <18.6 sec 17.7 <18.6 sec class= rz_6 wzx4367 >16.1 Interpretation(Lupus Anticoagulant) (NOTE) (NOTE)CMComment: Performing Pathologist: [...] GPL <9 <9CMComment: <10 GPL ? ? Nufsgphk14-32 GPL ? Equivocal>40 GPL ? ? PositiveThe following results were obtained with the [employer] QUANTA Lite LAVON IgG IIIELISA. Cardiolipin IgG values obtained with the different manufacturers'assay?method s may not be used interchangeably. The magnitude of the reportedIgGlevels cannot be correlated to an endpoint titer. Cardiolipin Ab, IgM 0 - 11 MPL <9 9CMComment: <12 MPL ? ? Ncfhatgz76-11 MPL ? Equivocal>40 MPL ? ? PositiveThe following results were obtained with the Inova QUANTA Lite LAVON IgM IIIELISA. Cardiolipin IgM values obtained with different manufacturers' assaymethods may not be used interchangeably. The magnitude of the reported IgMlevels cannot be correlated to an endpoint titer. Cardiolipin Ab, IgA 0 - 11 APL <9 <9CMComment: <12 APL ? ? Weeflcid01-15 APL ? Equivocal>40 APL ? ? PositiveThe following results were obtained with an Inova QUANTA Lite LAVON IgA IIIELISA. Cardiolipin IgA values obtained with different manufacturers' assaymethods may not be used interchangeably. The magnitude of the reported IgAlevels cannot be correlated to an endpoint titer. Beta 2 Glycoprotein, IgG <20 SGU <9 <20 SGU class= rz_6 qxi2509 ><9CMComment: < 20 ?SGU ? ?Gamctysi88-64 SGU ? ?Low Positive> 80 ?SGU ? ?High PositiveThese results were obtained with the Inova QUANTA Lite B2 GPI IgG DAYNA.B2GPI IgG values obtained with different manufacturers' assay methods maynot be?used interchangeably. The magnitude of the reported IgG levels cannot becorrelated to an endpoint titer. Beta 2 Glycoprotein, IgM <20 SMU <9 <20 SMU class= rz_6 nnz8686 ><9CMComment: < 20 ?SMU ? ?Zaodnjty07-93 SMU ? ?Low Positive> 80 ?SMU ? ?High PositiveThese results were obtained with the Inova QUANTA Lite B2 GPI IgM DYANA.B2GPI IgM values obtained with different manufacturers' assay methods maynot be?used interchangeably. The magnitude of the reported IgM levels cannot becorrelated to an endpoint titer.FACTOR V LEIDEN/PCROrder: [id number]: Final result ??Visible to patient: No (Not Released) Next appt:None Dx: Positive dilute Idalia's viper venom...Component 3mo agoFactor V Leiden PCR Report (NOTE)Comment: Performing Pathologist: Alvina Sotomayor M.D., Ph.D.Factor V Leiden Mutation Result: NORMALHOMOCYSTEINEOrder: [id number]: Final result ??Visible to patient: No (Not Released) Next appt:None Dx: Positive dilute Idalia's viper venom... Ref Range AND Units 3mo agoHomocysteine, Serum <15.1 umol/L 9.5Resulting Agency CCMSpecimen Collected: 04/20/18 ?2:22 PM Last Resulted: 04/21/18 ?1:31 PM LabFlowsheet Order Details View Encounter Lab and Collection Details RoutingResult HistoryOther Results from 04/20/2018FACTOR V LEIDEN/PCROrder: [id number]: Final result ??Visible to patient: No (Not [...] and Collection Details RoutingResult HistoryPROTHROMBIN GENE PCROrder: [id number]: Final result ??Visible to patient: No (Not Released) Next appt:None Dx: Positive dilute Idalia's viper venom...Component 3mo agoPT Gene Report (NOTE)Comment: Performing Pathologist: Alvina Sotomayor M.D., Ph.D.PT Gene Mutation Result: NORMAL ?PT Gene Mutation Interpretation: The DNA sample is negative for [id number] point mutation in the 3' untranslated region [...] and Collection Details RoutingResult HistoryPROTEIN S CLOTTABLEOrder: [id number]: Final result ??Visible to patient: No (Not Released) Next appt:None Dx: Positive dilute Idalia's viper venom... Ref Range AND Units 3mo agoProtein S Clottable 59 - 131 % 108Resulting Agency CCMSpecimen Collected: 04/20/18 ?2:22 PM Last Resulted: 04/21/18 ?9:13 AM LabFlowsheet Order Details View Encounter Lab and Collection Details RoutingResult HistoryPROTEIN C FUNCTOrder: [id number]: Final result ??Visible to patient: No (Not Released) Next appt:None Dx: Positive dilute Idalia's viper venom... Ref Range AND Units 3mo agoPro C Fun 76 - 147 % 104Resulting Agency CCMSpecimen Collected: 04/20/18 ?2:22 PM Last Resulted: 04/21/18 ?9:13 AM LabFlowsheet Order Details View Encounter Lab and Collection Details RoutingResult HistoryANTITHROMBIN IIIOrder: [id number]: Final result ??Visible to patient: No (Not Released) Next appt:None Dx: Positive dilute Idalia's viper venom... Ref Range AND Units 3mo agoAntithrombin Assay 84 - 138 % 93Resulting Agency CCMSpecimen Collected: 04/20/18 ?2:22 PM Last Resulted: 04/21/18 ?9:13 AM LabFlowsheet Order Details View Encounter Lab and Collection Details RoutingResult HistoryLUPUS ANTICOAG PLOrder: [id number]: Final result ??Visible to patient: No (Not [...] al. Chest 2012, 141:7S-47SNishimura RA, et al. [facility] 2017, 70: 252-289APTT 23.0 - 32.4 [...] lotoflaboratory APTT reagent in use throughout the [facility].Platelet Neut Negative NegativeDRVVT Screen 32.7 [...] 9 GPL <9Comment: <10 GPL ? ? Gopwwkzr19-28 GPL ? Equivocal>40 GPL ? ? PositiveThe following results were obtained with the Inova QUANTA Lite LAVON IgG IIIELISA. Cardiolipin IgG values obtained with the different manufacturers'assay?method s may not be used interchangeably. The magnitude of the reportedIgGlevels cannot be correlated to an endpoint titer.Cardiolipin Ab, IgM 0 - 11 MPL 9Comment: <12 MPL ? ? Zhwbhyav91-09 MPL ? Equivocal>40 MPL ? ? PositiveThe following results were obtained with the Inova QUANTA Lite LAVON IgM IIIELISA. Cardiolipin IgM values obtained with different manufacturers' assaymethods may not be used interchangeably. The magnitude of the reported IgMlevels cannot be correlated to an endpoint titer.Cardiolipin Ab, IgA 0 - 11 APL <9Comment: <12 APL ? ? Dvdenehm12-10 APL ? Equivocal>40 APL ? ? PositiveThe following results were obtained with an Ambassadorva QUANTA Lite LAVON IgA IIIELISA. Cardiolipin IgA values obtained with different manufacturers' assaymethods may not be used interchangeably. The magnitude of the reported IgAlevels cannot be correlated to an endpoint titer.Beta 2 Glycoprotein, IgG <20 SGU <9Comment: < 20 ?SGU ? ?Uylybjsx77-89 SGU ? ?Low Positive> 80 ?SGU ? ?High PositiveThese results were obtained with the [employer]chat QUANTA Lite B2 GPI IgG DAYNA.B2GPI IgG values obtained with different manufacturers' assay methods maynot be?used interchangeably. The magnitude of the reported IgG levels cannot becorrelated to an endpoint titer.Beta 2 Glycoprotein, IgM <20 SMU <9Comment: < 20 ?SMU ? ?Cxjwcvdg07-53 SMU ? ?Low Positive> 80 ?SMU ? ?High PositiveThese results were obtained with the [employer]chat QUANTA Lite B2 GPI IgM DAYNA.B2GPI IgM values obtained with different manufacturers' assay methods maynot be?used interchangeably. The magnitude of the reported IgM levels cannot becorrelated to an endpoint titer.Resulting Agency CCMSpecimen Collected: 04/20/18 ?2:22 PM Last Resulted: 04/21/18 ?6:40 PM LabFlowsheet Order Details View Encounter Lab and Collection Details RoutingResult HistoryANA PANEL BLOOD SCRNOrder: [id number]: Final result ??Visible to patient: No (Not [...] indication for intervention needed.Shant Romero MD Normal [facility] Remote Abs Gran + CBC (for [facility] use only)on 08-06-2018 Absol Gran Count 3.97 k/uL Normal 1.45-7.50 [facility] [place] Erythrocyte distribution width Auto Ratio (RBC) 12.1 % Normal 11.5-15.0 [facility] Hematocrit Auto Volume Fraction (Bld) 35.6 % Low 36.0-46.0 [facility] Hemoglobin mass conc (Bld) 11.6 g/dL Normal 11.5-15.5 [facility] MCH Auto Entitic mass (RBC) 31.1 pG Normal 26.0-34.0 [facility] MCHC Auto mass conc (RBC) 32.6 g/dL Normal 30.5-36.0 [facility] MCV Auto Entitic volume (RBC) 95.4 fL Normal 80.0-100.0 [facility] Platelet mean volume Auto Entitic volume (Bld) 10.4 fL Normal 9.0-12.7 [facility] Platelets Auto #/vol (Bld) 211 10*3/uL Normal 150-400 [facility] RBC Auto #/vol (Bld) 3.73 10*6/uL Low 3.90-5.20 [facility] WBC Auto #/vol (Bld) 6.52 10*3/uL Normal 3.70-11.00 [facility] Basic Metabolic Panlon 07-28 Anion gap 3 molar conc 10 mmol/L Normal 9-18 [facility] Calcium mass conc 9.3 mg/dL Normal 8.5-10.2 [facility] Chloride molar conc 104 mmol/L Normal 97-105 [facility] CO2 molar conc 23 mmol/L Normal 22-30 [facility] Creatinine mass conc 0.70 mg/dL Normal 0.58-0.[address] [facility] eGFR- Amer. >60 Normal [facility] GFR/1.73 sq M predicted among non-blacks MDRD vol rate/area (S/P/Bld) mL/min/{1.73_m2} Normal [facility] Comment on above: Result Comment: eGFR (Estimated [...] Glucose mass conc 101 mg/dL High 74-99 [facility] Potassium molar conc 4.0 mmol/L Normal 3.7-5.[address] [facility] Sodium molar conc 137 mmol/L Normal 136-144 [facility] Urea nitrogen mass conc 12 mg/dL Normal 7-21 [facility] Hepatic Functn Panelon 07-28 Albumin mass conc 4.1 g/dL Normal 3.9-4.9 [facility] ALP enzyme act/vol 75 U/L Normal 34-123 [facility] ALT enzyme act/vol 16 U/L Normal 7-38 [facility] AST enzyme act/vol 14 U/L Normal 13-35 [facility] Bilirubin mass conc 0.3 mg/dL Normal 0.2-1.3 [facility] Bilirubin,Conjugated <0.2 Normal <0.[address] [facility] Protein mass conc 7.2 g/dL Normal 6.3-8.0 [facility] Lupus Anticoag Panelon 07-28 aPTT Coag time (Bld) 24.3 s Low 24.4-33.[address] [facility] Comment on above: Performed By: #### L UPUSP ####[address] [phone] aPTT Coag time (Bld) 26.3 s Normal <33.[address] [facility] Comment on above: Performed By: #### L UP[facility] ####[address] [phone] aPTT Coag time (Bld) 21.8 s Low 23.0-32.[address] [facility] Comment on above: Result Comment: Unfr [...] laboratory APTT reagent in use throughout the [facility]. Performed By: #### L UP[facility] ####[address] [phone] aPTT Coag time (Bld) 28.3 s Normal <35.[address] [facility] Comment on above: Performed By: #### L [facility] ####[address] [phone] Beta2 Glycoprot IgG <9 Normal <20 [facility] Comment on above: Result Comment: < 20 SGU Tjgvjzkf18-80 SGU Low Positive> 80 SGU High PositiveThese results were obtained with the Snapchat QUANTA Lite B2 GPI IgG DAYNA. B2 GPI IgG values obtained with different manufacturers' assay methods may not be used interchangeably. The magnitude of the reported IgG levels cannot be correlated to an endpoint titer. Performed By: #### L UPUSP ####[address] [phone] DRVVT 1:1 Mix 33.9 sec Normal 32.7-46.7 [facility] Comment on above: Performed By: #### L UPUSP ####[facility] [address] AveCMid[address] [place], [place] [phone] DRVVT Confirm Ratio 1.10 Normal <1.21 [facility] Comment on above: Performed By: #### L UPUSP ####[facility]CMid[address] [place], [place] [phone] DRVVT Screen 35.1 sec Normal 32.7-46.7 [facility] Comment on above: Performed By: #### L UPUSP ####[facility]CMid[address] [place], [place] [phone] Hex Phase Confirm 32.6 sec Low 41.8-54.9 [facility] Comment on above: Performed By: #### L UPUSP ####[facility]CKatelyn [place] [phone] Hex Phase Delta 2.1 delta sec Normal <9.1 [facility] Comment on above: Performed By: #### L UPUSP ####[facility]CKatelyn [place] [phone] Hex Phase Screen 34.7 sec Low 45.0-59.9 [facility] [place] Comment on above: Performed By: #### L UPUSP ####[facility]CKatelyn [place] [phone] IgA Cardiolipin Ab. <9 Normal 0-11 [facility] Comment on above: Result Comment: <12 APL [id number] APL Equivocal>40 APL PositiveThe following results were obtained with an Snapchat QUANTA Lite LAVON IgA III DAYNA. Cardiolipin IgA values obtained with different manufacturers' assay methods may not be used interchangeably. The magnitude of the reported IgA levels cannot be correlated to an endpoint titer. Performed By: #### L UPUSP ####[place] [address]CM[address] [place], [place] [phone] IgG Cardiolipin Ab. <9 Normal 0-9 [facility] Comment on above: Result Comment: <10 GPL [id number] GPL Equivocal>40 GPL PositiveThe following results were obtained with the Snapchat QUANTA Lite LAVON IgG III DAYNA. Cardiolipin IgG values obtained with the different manufacturers' assay methods may not be used interchangeably. The magnitude of the reported IgG levels cannot be correlated to an endpoint titer. Performed By: #### L UPUSP ####[place] [address] [place], [place] [phone] IgM Cardiolipin Ab. <9 Normal 0-11 [facility] Comment on above: Result Comment: <12 MPL Pbxbclbv29-36 MPL Equivocal>40 MPL PositiveThe following results were obtained with the Snapchat QUANTA Lite LAVON IgM III DAYNA. Cardiolipin IgM values obtained with different manufacturers' assay methods may not be used interchangeably. The magnitude of the reported IgM levels cannot be correlated to an endpoint titer. Performed By: #### L UPUSP ####[address] [phone] INR Coag RelTime (Bld) 1.1 {INR} Normal 0.9-1.3 [facility] Comment on above: Result Comment: Maya min K Antagonist (VKA) Therapeutic Range: INR 2 to 3 (Target INR of 2.5)Note: For patients treated with VKA drugs, such as warfarin, the [place] [employer] 2012 Guideline recommends [...] al. Chest 2012, 141:7S-47SNishimura RA, et al. [facility] 2017, 70: 252-289 Performed By: #### L UPUSP ####[facility] [place], [place] [phone] Interpretation (NOTE) Normal [facility] Comment on above: Result Comment: [facility] Pathologist: Myesha Ellsworth MDInterpretation:No significant abnormalities - [...] 74:1185 (1995). Performed By: #### L UPUSP ####[facility] [place], [place] [phone] PNP Negative Normal Negative [facility] Comment on above: Performed By: #### L UPUSP ####[facility] [place], [place] [phone] Protein mass conc g/dL Normal <20 [facility] Comment on above: Result Comment: < 20 SMU Yzsgbpku09-05 SMU Low Positive> 80 [facility] High PositiveThese results were obtained with the Snapchat QUANTA Lite B2 GPI IgM DAYNA. B2 GPI IgM values obtained with different manufacturers' assay methods may not be used interchangeably. The magnitude of the reported IgM levels cannot be correlated to an endpoint titer. Performed By: #### L UPUSP ####[facility] [address] [place], [place] [phone] PT Sec 11.2 sec Normal 9.7-13.0 [facility] Comment on above: Performed By: #### L UPUSP ####[facility] [address] [place], [place] [phone] Thrombin Time 17.7 sec Normal <18.6 [facility] Comment on above: Performed By: #### L UPUSP ####[facility] [address] [place], [place] [phone] Remote Abs Gran + CBC (for [facility] HC use only)on 07-28-2018 Absol Gran Count 4.19 k/uL Normal 1.45-7.50 [facility] [place] Erythrocyte distribution width Auto Ratio (RBC) 12.4 % Normal 11.5-15.0 [facility] Hematocrit Auto Volume Fraction (Bld) 38.5 % Normal 36.0-46.0 [facility] Hemoglobin mass conc (Bld) 12.5 g/dL Normal 11.5-15.5 [facility] MCH Auto Entitic mass (RBC) 31.1 pG Normal 26.0-34.0 [facility] MCHC Auto mass conc (RBC) 32.5 g/dL Normal 30.5-36.0 [facility] MCV Auto Entitic volume (RBC) 95.8 fL Normal 80.0-100.0 [facility] Platelet mean volume Auto Entitic volume (Bld) 11.1 fL Normal 9.0-12.7 [facility] Platelets Auto #/vol (Bld) 193 10*3/uL Normal 150-400 [facility] RBC Auto #/vol (Bld) 4.02 10*6/uL Normal 3.90-5.20 [facility] WBC Auto #/vol (Bld) 6.67 10*3/uL Normal 3.70-11.00 [facility] Dilute RVVTon 07-08-2018 DRVVT 1:1 Mix 36.2 sec Normal 32.7-46.7 [facility] Comment on above: Performed By: #### D RVVT ####[address] [phone] DRVVT Confirm Ratio 0.91 Normal <1.21 [facility] Comment on above: Performed By: #### D RVVT ####[address] [phone] DRVVT Screen 36.1 sec Normal 32.7-46.7 [facility] Comment on above: Performed By: #### D RVVT ####[address] [phone] ROSANA Panel 1on 04-20-2018 ROSANA by EIA 0.4 OD Ratio Normal [facility] Comment on above: Result Comment: OD R atio is interpreted as follows:Negative <1.0Positive >=1.0 Performed By: #### W SR, PRCFUN, AT3ASY, PRSCLT, SERIMM, HOMCYS, IRON, FERR, B12, SERFOL, ANA1, HSCRP ####[address] [phone] ROSANA by EIA, Qual Negative Normal Negative [facility] [place] Comment on above: Performed By: #### W SR, PRCFUN, AT3ASY, PRSCLT, SERIMM, HOMCYS, IRON, FERR, B12, SERFOL, ANA1, HSCRP ####[place] [address] [place], [place] [phone] Antithrombin Assayon 018 Antithrombin Assay 93 % Normal 84-138 [facility] Comment on above: Performed By: #### W SR, PRCFUN, AT3ASY, PRSCLT, SERIMM, HOMCYS, IRON, FERR, B12, SERFOL, ANA1, HSCRP ####[address] [phone] Comp Metabolic Panelon 04-20 Albumin mass conc 4.3 g/dL Normal 3.9-4.9 [facility] Comment on above: Performed By: #### W SR, PRCFUN, AT3ASY, PRSCLT, SERIMM, HOMCYS, IRON, FERR, B12, SERFOL, ANA1, HSCRP ####[place] [address]CM[address] [place], [place] [phone] ALP enzyme act/vol 98 U/L Normal 32-117 [facility] Comment on above: Performed By: #### W SR, PRCFUN, AT3ASY, PRSCLT, SERIMM, HOMCYS, IRON, FERR, B12, SERFOL, ANA1, HSCRP ####[address]CMidland [place], [place] [phone] ALT enzyme act/vol 13 U/L Normal 7-38 [facility] Comment on above: Performed By: #### W SR, PRCFUN, AT3ASY, PRSCLT, SERIMM, HOMCYS, IRON, FERR, B12, SERFOL, ANA1, HSCRP ####[place] [phone] Anion gap 3 molar conc 9 mmol/L Normal 9-18 [facility] Comment on above: Performed By: #### W SR, PRCFUN, AT3ASY, PRSCLT, SERIMM, HOMCYS, IRON, FERR, B12, SERFOL, ANA1, HSCRP ####[place] [address]CM[address] [place], [place] [phone] AST enzyme act/vol 14 U/L Normal 13-35 [facility] Comment on above: Performed By: #### W SR, PRCFUN, AT3ASY, PRSCLT, SERIMM, HOMCYS, IRON, FERR, B12, SERFOL, ANA1, HSCRP ####[place] [address]CM[address] [place], [place] [phone] Bilirubin mass conc 0.2 mg/dL Normal 0.2-1.3 [facility] Comment on above: Performed By: #### W SR, PRCFUN, AT3ASY, PRSCLT, SERIMM, HOMCYS, IRON, FERR, B12, SERFOL, ANA1, HSCRP ####[place] [address] [place] [phone] Calcium mass conc 9.2 mg/dL Normal 8.5-10.2 [facility] Comment on above: Performed By: #### W SR, PRCFUN, AT3ASY, PRSCLT, SERIMM, HOMCYS, IRON, FERR, B12, SERFOL, ANA1, HSCRP ####[place] [phone] Chloride molar conc 102 mmol/L Normal 97-105 [facility] Comment on above: Performed By: #### W SR, PRCFUN, AT3ASY, PRSCLT, SERIMM, HOMCYS, IRON, FERR, B12, SERFOL, ANA1, HSCRP ####[place] [phone] CO2 molar conc 28 mmol/L Normal 22-30 [facility] Comment on above: Performed By: #### W SR, PRCFUN, AT3ASY, PRSCLT, SERIMM, HOMCYS, IRON, FERR, B12, SERFOL, ANA1, HSCRP ####[place] [phone] Creatinine mass conc 0.96 mg/dL Normal 0.58-0.[address] [facility] Comment on above: Performed By: #### W SR, PRCFUN, AT3ASY, PRSCLT, SERIMM, HOMCYS, IRON, FERR, B12, SERFOL, ANA1, HSCRP ####[place] [address] [place] [phone] eGFR- Amer. >60 Normal [facility] Comment on above: Performed By: #### W SR, PRCFUN, AT3ASY, PRSCLT, SERIMM, HOMCYS, IRON, FERR, B12, SERFOL, ANA1, HSCRP ####[address] [phone] GFR/1.73 sq M predicted among non-blacks MDRD vol rate/area (S/P/Bld) mL/min/{1.73_m2} Normal [facility] Comment on above: Result Comment: eGFR (Estimated [...] IRON, FERR, B12, SERFOL, ANA1, HSCRP ####[address] [phone] Glucose mass conc 103 mg/dL High 74-99 [facility] Comment on above: Performed By: #### W SR, PRCFUN, AT3ASY, PRSCLT, SERIMM, HOMCYS, IRON, FERR, B12, SERFOL, ANA1, HSCRP ####[address] [phone] Potassium molar conc 3.9 mmol/L Normal 3.7-5.[address] [facility] Comment on above: Performed By: #### W SR, PRCFUN, AT3ASY, PRSCLT, SERIMM, HOMCYS, IRON, FERR, B12, SERFOL, ANA1, HSCRP ####[address] [phone] Protein mass conc 7.2 g/dL Normal 6.3-8.0 [facility] Comment on above: Performed By: #### W SR, PRCFUN, AT3ASY, PRSCLT, SERIMM, HOMCYS, IRON, FERR, B12, SERFOL, ANA1, HSCRP ####[place] [address] [place], [place] [phone] Sodium molar conc 139 mmol/L Normal 136-144 [facility] Comment on above: Performed By: #### W SR, PRCFUN, AT3ASY, PRSCLT, SERIMM, HOMCYS, IRON, FERR, B12, SERFOL, ANA1, HSCRP ####[address] [phone] Urea nitrogen mass conc 14 mg/dL Normal 7-21 [facility] Comment on above: Performed By: #### W SR, PRCFUN, AT3ASY, PRSCLT, SERIMM, HOMCYS, IRON, FERR, B12, SERFOL, ANA1, HSCRP ####[address] [phone] Factor V Leiden PCRon 2017 FV Leiden Report (NOTE) Normal [facility] [place] Comment on above: Result Comment: [facility] Pathologist: Alvina Sotomayor M.D., Ph.D.Factor V Leiden [...] hybridization probes. Performed By: #### F VLEI ####[place] [address] [place], [place] [phone] Ferritinon 04-20-2018 Ferritin [Mass/volume] in Serum or Plasma 53.7 ng/mL Normal 14.7-205.1 [facility] Comment on above: Performed By: #### W SR, PRCFUN, AT3ASY, PRSCLT, SERIMM, HOMCYS, IRON, FERR, B12, SERFOL, ANA1, HSCRP ####[facility] AveClevelFowler, [place] [phone] Folate, Serumon 04-20-2018 Folate [Mass/volume] in Serum or Plasma 10.0 ng/mL Normal >4.7 [facility] Comment on above: Performed By: #### W SR, PRCFUN, AT3ASY, PRSCLT, SERIMM, HOMCYS, IRON, FERR, B12, SERFOL, ANA1, HSCRP ####[place] [address]CM[address] [place], [place] [phone] Homocysteineon 04-20-2018 Homocysteine 9.5 umol/L Normal <15.1 [facility] Comment on above: Performed By: #### W SR, PRCFUN, AT3ASY, PRSCLT, SERIMM, HOMCYS, IRON, FERR, B12, SERFOL, ANA1, HSCRP ####[place] [address]CM[address] [place], [place] [phone] Immunoglobulins GAMon 2017 IgA mass conc 237 mg/dL Normal 78-391 [facility] Comment on above: Performed By: #### W SR, PRCFUN, AT3ASY, PRSCLT, SERIMM, HOMCYS, IRON, FERR, B12, SERFOL, ANA1, HSCRP ####[place] [address] AveClevelandLex[place], [place] [phone] IgG mass conc 1220 mg/dL Normal 717-1411 [facility] Comment on above: Performed By: #### W SR, PRCFUN, AT3ASY, PRSCLT, SERIMM, HOMCYS, IRON, FERR, B12, SERFOL, ANA1, HSCRP ####[place] [address], [place] [phone] IgM mass conc 139 mg/dL Normal 53-334 [facility] Comment on above: Performed By: #### W SR, PRCFUN, AT3ASY, PRSCLT, SERIMM, HOMCYS, IRON, FERR, B12, SERFOL, ANA1, HSCRP ####[address] [phone] Iron and TIBCon 04-20-2018 Iron mass conc 36 ug/dL Low 41-186 [facility] Comment on above: Performed By: #### W SR, PRCFUN, AT3ASY, PRSCLT, SERIMM, HOMCYS, IRON, FERR, B12, SERFOL, ANA1, HSCRP ####[address] [phone] TIBC 271 ug/dL Normal 232-386 [facility] Comment on above: Performed By: #### W SR, PRCFUN, AT3ASY, PRSCLT, SERIMM, HOMCYS, IRON, FERR, B12, SERFOL, ANA1, HSCRP ####[address] [phone] Transferrin Saturatn 13 % Low 15-[address] [facility] Comment on above: Performed By: #### W SR, PRCFUN, AT3ASY, PRSCLT, SERIMM, HOMCYS, IRON, FERR, B12, SERFOL, ANA1, HSCRP ####[address] [phone] LDon 04-20-2018 LD 197 U/L Normal 135-214 [facility] Comment on above: Performed By: #### W SR, PRCFUN, AT3ASY, PRSCLT, SERIMM, HOMCYS, IRON, FERR, B12, SERFOL, ANA1, HSCRP ####[address] [phone] Lupus Anticoag Panelon 04-20 aPTT Coag time (Bld) 26.7 s Normal 23.0-32.[address] [facility] Comment on above: Result Comment: Unfr [...] laboratory APTT reagent in use throughout the [facility]. Performed By: #### L UPUSP ####[address] [phone] aPTT Coag time (Bld) 32.4 s Normal <35.[address] [facility] Comment on above: Performed By: #### L UPUSP ####[address] [phone] aPTT Coag time (Bld) 30.6 s Normal <33.[address] [facility] Comment on above: Performed By: #### L UPUSP ####[address] [phone] aPTT Coag time (Bld) 33.0 s Normal 24.4-33.[address] [facility] Comment on above: Result Comment: Resu lt rechecked. Performed By: #### L UPUSP ####[address] [phone] Beta2 Glycoprot IgG <9 Normal <20 [facility] Comment on above: Result Comment: < 20 SGU Piqvvuhf94-90 SGU Low Positive> 80 SGU High PositiveThese results were obtained with the Snapchat QUANTA Lite B2 GPI IgG DAYNA. B2 GPI IgG values obtained with different manufacturers' assay methods may not be used interchangeably. The magnitude of the reported IgG levels cannot be correlated to an endpoint titer. Performed By: #### L UPUSP ####[facility] [address]tbked[address] AveCKatelyn [place] [phone] DRVVT 1:1 Mix 41.3 sec Normal 32.7-46.7 [facility] Comment on above: Performed By: #### L UPUSP ####[facility] [address] AveCKatelyn [place] [phone] DRVVT Confirm Ratio 1.06 Normal <1.21 [facility] Comment on above: Performed By: #### L UPUSP ####[facility]CKately[address] [place] [phone] DRVVT Screen 42.3 sec Normal 32.7-46.7 [facility] Comment on above: Performed By: #### L UPUSP ####[facility]CKately[address] [place] [phone] Hex Phase Confirm 47.7 sec Normal 41.8-54.9 [facility] Comment on above: Performed By: #### L UPUSP ####[facility] [address] AveCKatelyn [place] [phone] Hex Phase Delta 6.7 delta sec Normal <9.1 [facility] Comment on above: Performed By: #### L UPUSP ####[facility]CKately[address] [place] [phone] Hex Phase Screen 54.5 sec Normal 45.0-59.9 [facility] [place] Comment on above: Performed By: #### L UPUSP ####[facility] [address] AveCKatelyn [place] [phone] IgA Cardiolipin Ab. <9 Normal 0-11 [facility] Comment on above: Result Comment: <12 APL Spdjpwyp76-27 APL Equivocal>40 APL PositiveThe following results were obtained with an Snapchat QUANTA Lite LAVON IgA III DAYNA. Cardiolipin IgA values obtained with different manufacturers' assay methods may not be used interchangeably. The magnitude of the reported IgA levels cannot be correlated to an endpoint titer. Performed By: #### L UPUSP ####[address] [phone] IgG Cardiolipin Ab. <9 Normal 0-9 [facility] Comment on above: Result Comment: <10 GPL [id number] GPL Equivocal>40 GPL PositiveThe following results were obtained with the [employer]ova QUANTA Lite LAVON IgG III DAYNA. Cardiolipin IgG values obtained with the different manufacturers' assay methods may not be used interchangeably. The magnitude of the reported IgG levels cannot be correlated to an endpoint titer. Performed By: #### L UPUSP ####[address] [phone] IgM Cardiolipin Ab. 9 MPL Normal 0-11 [facility] Comment on above: Result Comment: <12 MPL Yqklgqss89-97 MPL Equivocal>40 MPL PositiveThe following results were obtained with the [employer]ova QUANTA Lite LAVON IgM III DAYNA. Cardiolipin IgM values obtained with different manufacturers' assay methods may not be used interchangeably. The magnitude of the reported IgM levels cannot be correlated to an endpoint titer. Performed By: #### L UPUSP ####[address] [phone] INR Coag RelTime (Bld) 1.0 {INR} Normal 0.9-1.3 [facility] Comment on above: Result Comment: Maya min K Antagonist (VKA) Therapeutic Range: INR 2 to 3 (Target INR of 2.5)Note: For patients treated with VKA drugs, such as warfarin, the [place] [employer] 2012 Guideline recommends [...] al. Chest 2012, 141:7S-47SNishimura RA, et al. [facility] 2017, 70: 252-289 Performed By: #### L UPUSP ####[facility] [place], [place] [phone] Interpretation (NOTE) Normal [facility] Comment on above: Result Comment: Perf orming [...] 74:1185 (1995). Performed By: #### L UPUSP ####[facility] [address] [place], [place] [phone] PNP Negative Normal Negative [facility] Comment on above: Performed By: #### L UPUSP ####[facility] [address] [place], [place] [phone] Protein mass conc g/dL Normal <20 [facility] Comment on above: Result Comment: < 20 SMU Cbulgasu49-84 SMU Low Positive> 80 SMU High PositiveThese results were obtained with the Snapchat QUANTA Lite B2 GPI IgM DAYNA. B2 GPI IgM values obtained with different manufacturers' assay methods may not be used interchangeably. The magnitude of the reported IgM levels cannot be correlated to an endpoint titer. Performed By: #### L UPUSP ####[address] [phone] PT Sec 10.1 sec Normal 9.7-13.0 [facility] Comment on above: Performed By: #### L UPUSP ####[address] [phone] Thrombin Time 16.1 sec Normal <18.6 [facility] Comment on above: Performed By: #### L UPUSP ####[address] [phone] Protein C Functionalon 04-20 Protein mass conc 104 % Normal 76-147 [facility] Comment on above: Performed By: #### W SR, PRCFUN, AT3ASY, PRSCLT, SERIMM, HOMCYS, IRON, FERR, B12, SERFOL, ANA1, HSCRP ####[place] [address] [place], [place] [phone] Protein S Clottableon 2017 Protein S Clottable 108 % Normal 59-131 [facility] Comment on above: Performed By: #### W SR, PRCFUN, AT3ASY, PRSCLT, SERIMM, HOMCYS, IRON, FERR, B12, SERFOL, ANA1, HSCRP ####[address] [phone] Prothrombin Gene PCRon 04-20 PT Gene Report (NOTE) Normal [facility] Comment on above: Result Comment: [facility] Pathologist: Alvina Sotomayor M.D., Ph.D.PT Gene Mutation Result: NORMALPT Gene Mutation Interpretation: The DNA sample is negative for [id number] point mutation in the 3' untranslated region of theprothrombin gene.This is not associated with an increased risk ofvenous thrombosis.Venous thrombosis is a multifactorial disorder, andother causes of venous thrombosis are not excluded.PT Gene Mutation Method: This assay was performed by polymerase chainreaction and fluorescence monitoring using hybridization probes. Performed By: #### P TGEN ####[facility] [place], [place] [phone] Remote CBCDIF (for [facility] use o nly)on 04-20-2018 Abs Baso <0.03 Normal 0.00-0.10 [facility] Abs Bosque 0.48 k/uL Normal 0.00-0.86 [facility] Abs Neut 3.86 k/uL Normal 1.45-7.50 [facility] Basophils/100 WBC Auto (Bld) 0.3 % Normal [facility] Eosinophils Auto #/vol (Bld) 0.09 10*3/uL Normal 0.00-0.45 [facility] Eosinophils/100 WBC Auto (Bld) 1.4 % Normal [facility] Erythrocyte distribution width Auto Ratio (RBC) 11.9 % Normal 11.5-15.0 [facility] Hematocrit Auto Volume Fraction (Bld) 37.0 % Normal 36.0-46.0 [facility] Hemoglobin mass conc (Bld) 12.6 g/dL Normal 11.5-15.5 [facility] Lymphocytes Auto #/vol (Bld) 2.07 10*3/uL Normal 1.00-4.00 [facility] Lymphocytes/100 WBC Auto (Bld) 31.7 % Normal [facility] MCH Auto Entitic mass (RBC) 33.2 pG Normal 26.0-34.0 [facility] MCHC Auto mass conc (RBC) 34.1 g/dL Normal 30.5-36.0 [facility] MCV Auto Entitic volume (RBC) 97.4 fL Normal 80.0-100.0 [facility] Monocytes/100 WBC Auto (Bld) 7.4 % Normal [facility] Neutrophils/100 WBC Auto (Bld) 59.2 % Normal [facility] Platelet mean volume Auto Entitic volume (Bld) 10.7 fL Normal 9.0-12.7 [facility] Platelets Auto #/vol (Bld) 226 10*3/uL Normal 150-400 [facility] RBC Auto #/vol (Bld) 3.80 10*6/uL Low 3.90-5.20 [facility] WBC Auto #/vol (Bld) 6.52 10*3/uL Normal 3.70-11.00 Cl [facility] Sed Rate Westergrenon 2017 Sed Rate Westergren 15 mm/hr Normal 0-20 [facility] Comment on above: Performed By: #### W SR, PRCFUN, AT3ASY, PRSCLT, SERIMM, HOMCYS, IRON, FERR, B12, SERFOL, ANA1, HSCRP ####[facility] [place], [place] [phone] Ultra-sensitive CRPon 2017 Protein mass conc 11.1 mg/L High <3.1 [facility] Comment on above: Result Comment: (NOT E)hsCRP < 1.0 mg/L, relative risk is lowhsCRP 1.0-3.0 mg/L, relative risk is averagehsCRP > 3.0 mg/L, relative risk is highReference:Trevin TA, Salvador GA, Raman RW, et al. Markers of Inflammationand Cardiovascular Disease. Application to Clinical and PublicHealth Practice. A Statement for Healthcare Professionals From theOhiohealth Van Wert Hospitalers for Disease Control and Prevention and the [place] [employer]. Circulation 2003;107:499-511. Performed By: #### W SR, PRCFUN, AT3ASY, PRSCLT, SERIMM, HOMCYS, IRON, FERR, B12, SERFOL, ANA1, HSCRP ####[facility] [place], [place] [phone] Vitamin B12on 04-20-2018 Cobalamin (Vitamin B12) mass conc 445 pg/mL Normal 232-1245 [facility] Comment on above: Performed By: #### W SR, PRCFUN, AT3ASY, PRSCLT, SERIMM, HOMCYS, IRON, FERR, B12, SERFOL, ANA1, HSCRP ####[facility] [id number] [place], [place] [id number] CNOVSPon 04-15-2018 OVS Visit (SP) Office (HEMACL) AZUL ONTIVEROS ([id number]) 1990 FDate Time Provider Department04/15/18 3:15 PM [...] AM SignedPATIENT NAME: Azul Rodriguez Prince AllenMRN: [id number] PHYSICIAN: Chay Castro, [id number] [address]VTTZTXJ CARE PHYSICIAN: No primary care provider on file.OTHER PHYSICIANS:CHIEF COMPLAINT: 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)ASSESSMENT/PLAN: (R79.1) 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) (primaryencounter diagnosis)Mildly elevated dilute Idalia viper venom time in a otherwise -tkgr-ver female with no history suggestive of bleeding [...] considered for referral to hematologic subspecialist at [facility].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.We'll also check for lupus screen with an ROSANA.Mild anemiaWe'll check iron studies, B-12, folate, sedimentation rate.Visit (SP) Office on 04/15/18-FACTOR V LEIDEN/PCR-PROTHROMBIN GENE PCR-PROTEIN S CLOTTABLE-PROTEIN C FUNCT-ANTITHROMBIN III-LUPUS ANTICOAG PL-B 2 GPI IGG AND JYQ-AMNT-WUPTDMVNKXG NL-UESBIWTLWGDA-ESW PANEL BLOOD SCRN-IRON + TIBC-FERRITIN BLD-VITAMIN B12 BLOOD-FOLATE SERUM-IMMUNOGLOBULINS YUSRA-LD LACTATE DEHYDRO-SED RATE [id number]-A-[id number] ULTRA SEN-ACTIVATED PTT-PROTHROMBIN TIME/PT-CBC + DIFF (FOR REMOTE [facility] USE)-COMP METABOLIC PANEL-ACTIVATED PTT-PROTHROMBIN TIME/PT-B 2 GPI IGG AND RKP-OPAY-BGEUSRILSZN AB-LUPUS ANTICOAG PL Return in about 4 [...] of midol and excedrin. She works [employer] [place].Her mother has a history of cervical cancer [...] plan. I answered allquestions satisfactorily..Rowdy Hu D.O.Medical OncologistChateaugay, [place]Referring Provider: CHAY CASTRO [[id number]]Allergies As of Date: 04/15/2018 Noted Allergy ReactionIODINE 04/15/2018 2 - RashDate Reviewed: 04/15/2018Reviewed by: Zee iMlls - Fully AssessedReason for Visit: Consult [173] Cmt: Abnormal labsPrimary Visit Diagnosis: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) [R79.1]Order(s):FACTOR V LEIDEN/PCR [SQFVLEID] Order #: [id number] FUTURE PROTHROMBIN GENE PCR [SQPTGENE] Order #: [id number] FUTURE PROTEIN S CLOTTABLE [SQPRSCLT] Order #: [id number] FUTURE PROTEIN C FUNCT [SQPRCFUN] Order #: [id number] FUTURE ANTITHROMBIN III [RXAL0OLT] Order #: [id number] FUTURE LUPUS ANTICOAG PL [SQLUPUSP] Order #: [id number] FUTURE B 2 GPI IGG AND IGM [CTE1PSMS] Order #: [id number] FUTURE ANTI-CARDIOLIPIN AB [SQCARDIO] Order #: [id number] FUTURE HOMOCYSTEINE [SQHOMCYS] Order #: [id number] FUTURE ROSANA PANEL BLOOD SCRN [SQANA1] Order #: [id number] FUTURE IRON + TIBC [SQIRON] Order #: [id number] FUTURE FERRITIN BLD [SQFERR] Order #: [id number] FUTURE VITAMIN B12 BLOOD [SQB12] Order #: [id number] FUTURE FOLATE SERUM [SQSERFOL] Order #: [id number] FUTURE IMMUNOGLOBULINS YUSRA [SQSERIMM] Order #: [id number] FUTURE LD LACTATE DEHYDRO [SQLD6] Order #: [id number] FUTURE SED RATE WESTERGREN [SQWSR] Order #: [id number] FUTURE C-REACTIVE ULTRA SEN [SQHSCRP] Order #: [id number] FUTURE ACTIVATED PTT [SQPTT] Order #: [id number] FUTURE PROTHROMBIN TIME/PT [SQPT] Order #: [id number] FUTURE CBC + DIFF (FOR REMOTE [facility] USE) [SQRCBCDF] Order #: [id number] FUTURE COMP METABOLIC PANEL [SQCMP] Order #: [id number] FUTURE ACTIVATED PTT [SQPTT] Order #: [id number] FUTURE PROTHROMBIN TIME/PT [SQPT] Order #: [id number] FUTURE B 2 GPI IGG AND IGM [GLH0MCXC] Order #: [id number] FUTURE ANTI-CARDIOLIPIN AB [SQCARDIO] Order #: [id number] FUTURE LUPUS ANTICOAG PL [SQLUPUSP] Order #: [id number] FUTUREDisposition: Return in about 4 months (around [...] states that she has always had headaches.Zee MillsEncbhaviner Status:Closed by LATASHA HU DO on 04/19/18 Normal [facility] PROGRESSon 04-15-2018 Protein mass conc HNO ID: [id number] thor: Latasha HuService: (none)Author Type: PhysicianType: Progress NotesFiled: 04/19/2018 9:38 AMNote Text:PATIENT NAME: Azul Llanos EtzwilerMRN: [id number] PHYSICIAN: Chay Castro DO[address] [address]WEXWLGY CARE PHYSICIAN: No primary care provider on file.OTHER PHYSICIANS:CHIEF COMPLAINT: 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)ASSESSMENT/PLAN: (R79.1) 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) (primaryencounter diagnosis)Mildly elevated dilute Idalia viper venom time in a otherwise viqspaq06-liep-ubr female with no history suggestive of bleeding [...] considered for referral to hematologic subspecialist at [facility].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.We'll also check for lupus screen with an ROSANA.Mild anemiaWe'll check iron studies, B-12, folate, sedimentation rate.Visit (SP) Office on 04/15/18-FACTOR V LEIDEN/PCR-PROTHROMBIN GENE PCR-PROTEIN S CLOTTABLE-PROTEIN C FUNCT-ANTITHROMBIN III-LUPUS ANTICOAG PL-B 2 GPI IGG AND JML-SWEF-QTQBQRIZNJX GR-PZFTWAWLWENR-OEM PANEL BLOOD SCRN-IRON + TIBC-FERRITIN BLD-VITAMIN B12 BLOOD-FOLATE SERUM-IMMUNOGLOBULINS YUSRA-LD LACTATE DEHYDRO-SED RATE [id number]-SORHRMPM ULTRA SEN-ACTIVATED PTT-PROTHROMBIN TIME/PT-CBC + DIFF (FOR REMOTE [facility] USE)-COMP METABOLIC PANEL-ACTIVATED PTT-PROTHROMBIN TIME/PT-B 2 GPI IGG AND FXN-QNQT-YKTQFYYZMIZ AB-LUPUS ANTICOAG PL Return in about 4 [...] of midol and excedrin. Sheworks in a [employer] in [place].Her mother has a history of cervical cancer [...] plan.I answered all questions satisfactorily..Rowdy Hu D.O.Medical OncologistNorth [facility] Vital Signs Date Time Vital Sign Value Performing Clinician Hedy miller 10-25-2023 16:49-0500 Diastolic blood pressure 78 mm[Hg] [facility] [place] 10-25-2023 16:49-0500 Heart rate 74 /min Alexx Jean [place] 10-25-2023 16:49-0500 Mean blood pressure 97 mm[Hg] Alexx Jean [place] 10-25-2023 16:49-0500 Respiratory rate 18 /min Alexx Jean [place] 10-25-2023 16:49-0500 SaO2% (BldA) [Mass fraction] 100 % Alexx Jean [place] 10-25-2023 16:49-0500 Systolic blood pressure 134 mm[Hg] Alexx Jean [place] 10-25-2023 16:30-0500 Hourly Rounding Alexx Dolle [place] 10-25-2023 16:30-0500 Promise to Return Alexx Dolle [place] 10-25-2023 16:00-0500 Diastolic blood pressure 82 mm[Hg] Alexx Jean [place] 10-25-2023 16:00-0500 Heart rate 81 /min Alexx Dolle [place] 10-25-2023 16:00-0500 SaO2% (BldA) [Mass fraction] 94 % Alexx Dolle [place] 10-25-2023 16:00-0500 Systolic blood pressure 127 mm[Hg] Alexx Dolle [place] 10-25-2023 15:28-0500 Hourly Rounding Alexx Dolle [place] 10-25-2023 15:28-0500 Promise to Return Alexx Pena [place] 10-25-2023 15:02-0500 Diastolic blood pressure 138 mm[Hg] Alexx Dolle [place] 10-25-2023 15:02-0500 Heart rate 94 /min Alexx Dolle [place] 10-25-2023 15:02-0500 Mean blood pressure 142 mm[Hg] Alexx Dolle [place] 10-25-2023 15:02-0500 Respiratory rate 18 /min Alexx Dolle [place] 10-25-2023 15:02-0500 SaO2% (BldA) [Mass fraction] 99 % Alexx Dolle [place] 10-25-2023 15:02-0500 Systolic blood pressure 150 mm[Hg] Alexx Dolle [place] 10-25-2023 14:20-0500 Body temperature 98.24 [degF] Alexx Dolle [place] 10-25-2023 14:20-0500 Heart rate 112 /min Alexx Dolle [place] 10-20-2023 15:33-0500 Blood Pressure Location Glenn Gupta [place] 10-20-2023 15:33-0500 Diastolic blood pressure 84 mm[Hg] Glenn Gupta [place] 10-20-2023 15:33-0500 Heart rate 95 /min Glenn Gupta [place] 10-20-2023 15:33-0500 SaO2% (BldA) [Mass fraction] 98 % Glenn Gupta [place] 10-20-2023 15:33-0500 Systolic blood pressure 117 mm[Hg] Glenn Gupta [place] 08-15-2023 09:18-0500 Blood Pressure Location Alexx Gupta [facility] 08-15-2023 09:18-0500 Diastolic blood pressure 76 mm[Hg] Alexx Gupta [facility] 08-15-2023 09:18-0500 Heart rate 92 /min Alexx Gupta [facility] 08-15-2023 09:18-0500 Respiratory rate 16 /min Alexx Gupta [facility] 08-15-2023 09:18-0500 Systolic blood pressure 119 mm[Hg] Alexx Gupta [facility] 08-12-2023 11:20-0500 Body temperature 98.06 [degF] Alexx Gupta [facility] 08-12-2023 11:20-0500 Diastolic blood pressure 90 mm[Hg] Alexx Gupta [facility] 08-12-2023 11:20-0500 Heart rate 114 /min Alexx Mourany [facility] [place] 08-12-2023 11:20-0500 Systolic blood pressure 137 mm[Hg] Alexx Mourany [facility] [place] 08-11-2023 13:20-0500 Diastolic blood pressure 85 mm[Hg] Glenn Nyekala [place] 08-11-2023 13:20-0500 Heart rate 100 /min Glenn Gupta [place] 08-11-2023 13:20-0500 SaO2% (BldA) [Mass fraction] 100 % Glenn Candy [place] 08-11-2023 13:20-0500 Systolic blood pressure 140 mm[Hg] Glenn Pakpilar [place] 08-06-2023 11:15-0500 Heart rate 77 /min Alexx Mourany [place] 08-06-2023 11:15-0500 SaO2% (BldA) [Mass fraction] 97 % Alexx Mourany [place] 08-06-2023 11:15-0500 Respiratory rate 16 /min Alexx Mourany [place] 08-06-2023 11:14-0500 Diastolic blood pressure 87 mm[Hg] Alexx Mourany [place] 08-06-2023 11:14-0500 Mean blood pressure 98 mm[Hg] Alexx Mourany [place] 08-06-2023 11:14-0500 Systolic blood pressure 118 mm[Hg] Alexx Mourany [place] 08-06-2023 09:59-0500 Heart rate 79 /min Alexx Mourany [place] 08-06-2023 09:59-0500 SaO2% (BldA) [Mass fraction] 94 % Alexx Mourany [place] 08-06-2023 09:59-0500 Diastolic blood pressure 82 mm[Hg] Alexx Mourany [place] 08-06-2023 09:59-0500 Mean blood pressure 98 mm[Hg] Alexx Mourany [place] 08-06-2023 09:59-0500 Systolic blood pressure 129 mm[Hg] Alexx Mourany [place] 08-06-2023 09:59-0500 Respiratory rate 16 /min Alexx Mourany [place] 08-06-2023 09:50-0500 Blood Pressure Location Alexx Mourany [place] 08-06-2023 09:50-0500 Body temperature 98.06 [degF] Alexx Mourany [place] 08-06-2023 09:50-0500 Diastolic blood pressure 92 mm[Hg] Alexx Mourany [place] 08-06-2023 09:50-0500 Heart rate 80 /min Alexx Mourany [place] 08-06-2023 09:50-0500 Mean blood pressure 103 mm[Hg] Alexx Mourany [place] 08-06-2023 09:50-0500 Respiratory rate 20 /min Alexx Mourany [place] 08-06-2023 09:50-0500 SaO2% (BldA) [Mass fraction] 93 % Alexx Mourany [place] 08-06-2023 09:50-0500 Systolic blood pressure 124 mm[Hg] Alexx Mourany [place] 08-06-2023 09:40-0500 Blood Pressure Location Alexx Mourany [place] 08-06-2023 09:40-0500 Mean blood pressure 100 mm[Hg] Alexx Mourany [place] 08-06-2023 09:40-0500 Respiratory rate 20 /min Alexx Mourany [place] 08-06-2023 09:35-0500 Blood Pressure Location Alexx Mourany [place] 08-06-2023 09:35-0500 Mean blood pressure 102 mm[Hg] Alexx Mourany [place] 08-06-2023 09:35-0500 Respiratory rate 24 /min Alexx Mourany [place] 08-06-2023 09:20-0500 Respiratory rate 19 /min Alexx Mourany [place] 08-06-2023 06:11-0500 Mean blood pressure 79 mm[Hg] Alexx Mourany [place] 08-06-2023 06:11-0500 Heart rate 84 /min Alexx Mourany [place] 08-06-2023 06:08-0500 Body temperature 97.88 [degF] Alexx Mourany [place] 07-25-2023 09:28-0500 Blood Pressure Location Alexx Mourany [place] 07-25-2023 09:28-0500 Diastolic blood pressure 74 mm[Hg] Alexx Mourany [place] 07-25-2023 09:28-0500 Heart rate 86 /min Alexx Mourany [place] 07-25-2023 09:28-0500 Mean blood pressure 89 mm[Hg] Alexx Mourany [place] 07-25-2023 09:28-0500 Systolic blood pressure 120 mm[Hg] Alexx Mourany [place] 07-25-2023 09:28-0500 Heart rate 78 /min Alexx Mourany [place] 07-25-2023 09:28-0500 SaO2% (BldA) [Mass fraction] 99 % Alexx Mourany [place] 07-25-2023 09:28-0500 Respiratory rate 18 /min Alexx Mourany [place] 07-25-2023 09:27-0500 Blood Pressure Location Alexx Mourany [place] 07-25-2023 09:27-0500 Body temperature 97.88 [degF] Alexx Mourany [place] 07-25-2023 09:27-0500 Diastolic blood pressure 83 mm[Hg] Alexx Mourany [place] 07-25-2023 09:27-0500 Mean blood pressure 97 mm[Hg] Alexx Mourany [place] 07-25-2023 09:27-0500 Systolic blood pressure 125 mm[Hg] Alexx Mourany [place] 07-21-2023 14:40-0500 Diastolic blood pressure 81 mm[Hg] Alexx Mourany [facility] [place] 07-21-2023 14:40-0500 Heart rate 93 /min Alexx Alonso [facility] [place] 07-21-2023 14:40-0500 Systolic blood pressure 121 mm[Hg] Alexx Alonso [facility] [place] 07-08-2023 13:57-0400 Blood Pressure Location Melissa Nunez [facility] 07-08-2023 13:57-0400 Body temperature 96.98 [degF] Melissa Nunez [facility] 07-08-2023 13:57-0400 Diastolic blood pressure 74 mm[Hg] Melissa Nunez [facility] 07-08-2023 13:57-0400 Heart rate 87 /min Melissa Nunez [facility] 07-08-2023 13:57-0400 Respiratory rate 16 /min Melissa Nunez [facility] 07-08-2023 13:57-0400 Systolic blood pressure 111 mm[Hg] Melissa Nunez [facility] 06-23-2023 12:53-0400 Diastolic blood pressure 68 mm[Hg] Alexx Pena [place] 06-23-2023 12:53-0400 Heart rate 79 /min Alexx Pena [place] 06-23-2023 12:53-0400 Mean blood pressure 76 mm[Hg] Alexx Pena [place] 06-23-2023 12:53-0400 Respiratory rate 24 /min Alexx Pena [place] 06-23-2023 12:53-0400 SaO2% (BldA) [Mass fraction] 100 % Alexx Jean [place] 06-23-2023 12:53-0400 Systolic blood pressure 91 mm[Hg] Alexx Jean [place] 06-23-2023 12:30-0400 Diastolic blood pressure 66 mm[Hg] Alexx Jean [place] 06-23-2023 12:30-0400 Heart rate 81 /min Alexx Jean [place] 06-23-2023 12:30-0400 Mean blood pressure 78 mm[Hg] Alexx Jean [place] 06-23-2023 12:30-0400 Respiratory rate 13 /min Alexx Jean [place] 06-23-2023 12:30-0400 SaO2% (BldA) [Mass fraction] 100 % Alexx Jean [place] 06-23-2023 12:30-0400 Systolic blood pressure 102 mm[Hg] Alexx Jean [place] 06-23-2023 12:00-0400 Diastolic blood pressure 67 mm[Hg] Alexx Jean [place] 06-23-2023 12:00-0400 Heart rate 70 /min Alexx Jean [place] 06-23-2023 12:00-0400 Mean blood pressure 83 mm[Hg] Alexx Jean [place] 06-23-2023 12:00-0400 SaO2% (BldA) [Mass fraction] 99 % Alexx Jean [place] 06-23-2023 12:00-0400 Systolic blood pressure 115 mm[Hg] Alexx Pena [place] 06-23-2023 09:50-0400 Respiratory rate 20 /min Alexx Pena [place] 06-23-2023 09:23-0400 Body temperature 98.24 [degF] Alexx Pena [place] 06-23-2023 09:23-0400 Heart rate 81 /min Alexx Pena [place] 06-23-2023 09:23-0400 Respiratory rate 16 /min Alexx Pena [place] 09-14-2022 10:30-0500 Body height 157.48 cm Thania Trevizo Other [employer] [facility] Other 09-14-2022 10:30-0500 Body mass index (BMI) [Ratio] 49.74 kg/m2 Thania Trevizo Other [facility] Other 09-14-2022 10:30-0500 Body temperature 97.7 [degF] Thania Pguhmond Other [facility] [facility] Other 09-14-2022 10:30-0500 Body weight 123.38 kg Thania Pughmond Other [facility] [facility] Other 09-14-2022 10:30-0500 Diastolic blood pressure 97 mm[Hg] Thania Joseline Other [employer] [facility] Other 09-14-2022 10:30-0500 Respiratory rate 18 /min Thania Pughmond Other [facility] [facility] Other 09-14-2022 10:30-0500 SaO2% (BldA) [Mass fraction] 100 % Thania Trevizo Other [facility] [facility] Other 09-14-2022 10:30-0500 Systolic blood pressure 140 mm[Hg] Thania Trevizo Other [employer] Other 05-31-2022 16:10-0400 Body height 157.48 cm Mayra Astorga Other [facility] [facility] Other 05-31-2022 16:10-0400 Body mass index (BMI) [Ratio] 48.98 kg/m2 Mayra Astorga Other [facility] [facility] Other 05-31-2022 16:10-0400 Body temperature 97.9 [degF] Mayra Astorga Other [facility] [facility] Other 05-31-2022 16:10-0400 Body weight 121.47 kg Mayra Astorga Other [facility] [facility] Other 05-31-2022 16:10-0400 Diastolic blood pressure 84 mm[Hg] Mayra Astorga Other [facility] Other 05-31-2022 16:10-0400 Respiratory rate 18 /min Mayra Astorga Other [facility] [facility] Other 05-31-2022 16:10-0400 SaO2% (BldA) [Mass fraction] 99 % Mayra Astorga Other [facility] [facility] Other 05-31-2022 16:10-0400 Systolic blood pressure 129 mm[Hg] Mayra Astorga Other [employer] Other Encounters Encounter Date Encounter Type Care Provider Facility Start: 01-27-2024 End: 01-27-2024 ambulatory TEZ ANGEL Not Available Start: 11-24-2023 End: 11-25-2023 ambulatory Heather Antunez MD Facility: [facility] Start: 11-12-2023 End: 11-12-2023 ambulatory ZOYA PETER Not Available Start: 10-25-2023 End: 10-25-2023 Emergency department patient visit Alexx Pena Facility[facility] Start: 10-25-2023 End: 10-25-2023 Emergency department patient visit Alexx Pena [place] Start: 10-22-2023 Refill Florecita LANDA [facility] Comment on above: 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); Edema of both legs Start: 10-20-2023 End: 10-21-2023 ambulatory Glenn Gupta Facility:[facility] Start: 10-20-2023 End: 10-20-2023 Patient encounter procedure Glenn Gupta [place] Start: 10-08-2023 End: 10-08-2023 ambulatory ZOYA PETER Not Available Start: 10-01-2023 End: 10-01-2023 ambulatory Tez Angel Facility:[facility] Start: 10-01-2023 End: 10-01-2023 ambulatory MD Tez Angel Work Phone: [facility] Work Phone: Start: 10-01-2023 End: 10-01-2023 Departed Referred MD Tez Angel Work Phone: [facility] [place] [facility] Start: 09-17-2023 End: 09-18-2023 ambulatory Glenn Gupta Facility:[facility] Start: 09-17-2023 End: 09-17-2023 Patient encounter procedure Glenn Gupta [place] Start: 09-15-2023 End: 09-15-2023 ambulatory CHAY FIGUEROAO Not Available Start: 08-27-2023 End: 08-27-2023 ambulatory TEZ COKERHORACER Not Available Start: 08-15-2023 End: 08-16-2023 ambulatory Alexx Gupta Facility:[facility] Start: 08-15-2023 End: 08-15-2023 Patient encounter procedure Alexx Gupta [facility] Start: 08-12-2023 End: 08-13-2023 ambulatory Alexx Gupta Facility:[facility] Start: 08-12-2023 End: 08-12-2023 Patient encounter procedure Alexx Gupta [facility] Start: 08-11-2023 End: 08-12-2023 ambulatory Glenn Gupta Facility:[facility] Start: 08-11-2023 End: 08-11-2023 Patient encounter procedure Glenn Gupta [place] Start: 08-06-2023 End: 08-06-2023 ambulatory Alexx Gupta Facility:[facility] Start: 08-06-2023 End: 08-06-2023 Admission to same day surgery center Alexx Gupta [place] Start: 07-25-2023 End: 07-26-2023 ambulatory Alexx Gupta Facility:[facility] Start: 07-25-2023 End: 07-25-2023 Patient encounter procedure Alexx Gupta [place] Start: 2023 End: 07-25-2023 ambulatory TEZ HANKINSR Facility:[facility] Start: 2023 End: 2023 Patient encounter procedure TEZ ANGEL [place] Start: 07-21-2023 End: 07-22-2023 ambulatory Alexx Gupta Facility:[facility] Start: 07-21-2023 End: 07-21-2023 Patient encounter procedure Alexx Gupta [facility] Start: 07-18-2023 ambulatory Melissa Nunez Facility :[facility] Start: 07-14-2023 End: 07-15-2023 ambulatory Melissa Nunez Facility:[facility] Start: 07-14-2023 End: 07-14-2023 Patient encounter procedure Melissa Nunez [place] Start: 07-08-2023 End: 07-09-2023 ambulatory Melissa Nunez Facility:[facility] Start: 07-08-2023 End: 07-08-2023 Patient encounter procedure Melissa Nunez [facility] Start: 07-07-2023 End: 07-08-2023 ambulatory Alexx Gupta Facility:[facility] Start: 07-07-2023 End: 07-07-2023 Patient encounter procedure Alexx Gupta [facility] Start: 06-25-2023 ambulatory [facility] Start: 06-23-2023 End: 06-23-2023 Emergency department patient visit Alexx Pena Facility:[facility] Start: 06-23-2023 End: 06-23-2023 Emergency department patient visit Alexx Pena [place] Start: 01-29-[address] CHAY CASTRO . [...] examination without abnormal findings DR TEZ ANGEL [facility] Start: 10-09-2022 End: 10-10-[address] TEZ ANGEL Facility:[facility] Start: 10-09-2022 End: 10-10-2022 Encounter for general adult medical examination without abnormal findings DR TEZ ANGEL Facility:[facility] Start: 09-14-2022 End: 09-14-2022 ambulatory Thania Trevizo Other [employer] Other Start: 09-14-2022 Office outpatient visit 15 minutes Thania Trevizo [facility] Start: 07-23-2022 End: [address] YONAS ANTON . Facility:[facility] Start: 07-16-[address] YONAS ANTON . Faci lity:[facility] Start: 06-04-2022 End: 06-05-[address] YONAS ANTON . Facility:[facility] Start: 05-31-2022 End: 05-31-2022 ambulatory Mayra Astorga Other [employer] [facility] Other Start: 05-31-2022 Office outpatient ne w 30 minutes Mayra Astorga [facility] Start: 05-02-2022 End: 05-03-[address] CHAY CASTRO . Facility:[facility] Start: 04-09-2022 End: 04-09-[address] CHAY CASTRO . Facility: Start: 08-06-2018 End: 08-07-2018 Patient encounter procedure SHANT ROMERO [facility] Start: 07-28-2018 End: 07-28-2018 Patient encounter procedure SHANT ROMERO [facility] Start: 07-28-2018 End: 07-28-2018 Patient encounter procedure LATASHA HU [facility] Start: 07-08-2018 End: 07-08-2018 Patient encounter procedure MINDY GARCIA [facility] Start: 04-20-2018 End: 04-21-2018 Patient encounter procedure LATASHA HU [facility] Start: 04-15-2018 End: 04-20-2018 Patient encounter procedure LATASHA HU [facility] Procedures Date Procedure Procedure Detail Performing Clinician [...] Visit [facility] [address] [place] [id number] Tez Angel MD [address] [place] [id number] [facility] Start: 11-12-2023 End: 11-12-2023 ambulatory 11/12/2023 11:20 AM EST Visit [facility] [address] [place] [address] Zoya Peter PA [address] [place] [address] [place] [address] [facility] Start: 05-09-2023 Influenza vaccination Influenza Vacc ine (#1) [facility] Immunizations Immunization Date Immunization Notes Care Provider Fa cility 12-02-2021 SARS-CoV-2 mRNA (xrutqvweubs-zisj-wuss ose) vaccine Alexx Gupta [facility] 01-05-2021 SARS-CoV-2 (COVID-19 ) Ad26 vaccine, recombinant Alexx Pena [facility] 12-15-2020 SARS-CoV-2 (COVID-19 ) Ad26 vaccine, recombinant Alexx Pena [facility] 01-22-2002 measles, mumps and rubella virus vaccine Alexx Gupta [facility] NEGATED: Highlighted row has not occurred!07-07-2023 influenza virus vaccine, unspecified formulation Alexx Alonso [facility] Payers Date Payer Category Payer Self-pay 2023 Unknown 2022 Medicaid [id number] 2022 Medicaid [place] [employer] [id number] 2022-Present [address] [place] [address] [id number] 1989 Unknown [id number] [id number]3 1989 Unknown [id number] 2..840.1.480664.3.579.2.593 1989 Unknown [id number] 2.16.840.1.314972.3.579.2.593 1989 Unknown [id number] 2.16.840.1.475839.3.579.2.593 1989 Unknown [id number] 2.16.840.1.583351.3.579.2.593 1989 Unknown [id number] 2.16.840.1.931737.3.579.2.593 1989 Unknown [id number] 2.16.840.1.716981.3.579.2.593 1989 Unknown [id number] 2.16.840.1.158165.3.579.2.593 1989 Unknown [id number] 2.16.840.1.170018.3.579.2.593 1989 Unknown [id number] 2.16840.1.634440.3.579.2.593 1989 Unknown [id number] 2..840.1.707653.3.579.2.593 1989 Unknown [id number] 2.16.840.1.260938.3.579.2.593 1989 Unknown [id number] 2.16.840.1.216716.3.579.2.727 1989 Unknown [id number] 2.16.840.1.611077.3.579.2.727 1989 Unknown [id number] 2.16.840.1.947886.3.579.2.727 1989 Unknown [id number] 2.16.840.1.001063.3.579.2.727 1989 Unknown [id number] 2.16.840.1.408954.3.579.2.727 1989 Unknown [id number] 2.16.840.1.471892.3.579.2.727 1989 Unknown [id number] 2.16.840.1.931198.3.579.2.727 1989 Unknown [id number] 2.16.840.1.031684.3.579.2.727 1990 Unknown [id number] 2.16.840.1.314591.3.579.2.727 1989 Unknown [id number] 2.16.840.1.177113.3.579.2.727 1989 Unknown [id number] 2.16.840.1.661527.3.579.2.727 1989 Unknown [id number] 2.16.840.1.191818.3.579.2.72 1989 Unknown [id number] 2.16.840.1.809577.3.579.2. 1989 Unknown [id number] 2.16.840.1.032986.3.579.2.72 1989 Unknown [id number] 2.16.840.1.970480.3.579.2.727 1989 Unknown [id number] 2.16.840.1.892134.3.579.2. 1989 Unknown [id number] 2.16.840.1.871778.3.579.2.196 1989 Unknown [id number] 2.16.840.1.605130.3.579.2.9 1989 Unknown [id number] 2.16.840.1.384919.3.579.2.1259 1989 Unknown [id number] 2.16.840.1.311318.3.579.2.9 1989 Unknown [id number] 2.16.840.1.637590.3.579.2.9 1989 Unknown [id number] 2.16.840.1.682368.3.579.2.1259 1959 Unknown [id number] 2.16.840.1.245840.19 Social History Date Type Detail Facility Unknown if ever smoked [employer] [facility] Start: 08-21-2023 End: 08-27-2023 Sex Assigned At [facility] Start: 02-25-2023 Tobacco smoking status Smokele ss tobacco user within last 30 days [place] Start: 07-08-2023 End: 10-20-2023 Tobacco smoking status Never smoked tobacco (finding) [facility] Tobacco smoking status Smoker (finding) F [facility] [place] Tobacco Cigarettes [place] Comment on above: social smoker, coupl e times per month Tobacco smoking status No Smokin g Status Entered [facility] Start: 1990 Sex Assigned At Female F [facility] Start: 08-27-2023 Tobacco smoking stat us NHIS [...] Only a little [facility] (I/We) worried wheshadi er (my/our) food would run out before [...] Assessment Result Facility 10-25-2023 Functional Status N/A [facility] 10-20-2023 Functional Status No [facility] 08-15-2023 Functional Status N/A [facility] [place] 08-11-2023 Functional Status No [facility] 07-25-2023 Functional Status No [facility] 07-08-2023 Functional Status N/A [facility] 06-23-2023 Functional Status N/A [facility] Clinical Notes 05-31-2022 to 10-25-2023 Note Date & Type Note Facility 10-25-2023 Hospital Discharg e instructions Follow Up Care 10/25/2023 14:17:21 With:Chay CASTRO Address: [address] , [place] [address]- Business (1) When:10/28/2023 16:39:28 With:TEZ ANGEL Address: [address] [place], [place] [address] [address] Business (1) When:Within 3 Day(s) [facility] 10-25-2023 Evaluation + Plan note Extrac shankar [...] 07/08/23 * Enteric Panel by PCR 07/08/23 [place]11-29-2023 Evaluation + Plan noteExtracted from: Title:ANES Post-operative Note - General Author: Mauricio Chang Jr., DO Date:08/06/23 Plan Transfer/Discharge: Transfer/Discharge Discharge when meets criteria ( From PACU to Ambulatory Surgery Unit, and To home ). Extracted from: Title:ANES Pre-operative Note - Adult Author:Mauricio Guerrero Jr., DO Date:08/06/23 Plan [place] [employer] (ASA) physical status classification: Class IV. Anesthetic Preoperative Plan: Anesthesia General. Future Appointments Appointment Date:08/11/2023 01:30:00 PM Scheduled Provider:Glenn Gupta MD [facility] Type:Cardiology New Patient (FT) Appointment Date:08/15/2023 09:20:00 AM Scheduled Provider:Alexx Gupta MD Location:[facility] Appointment Type: Post Op 15 Future Scheduled Tests Laboratory* Fecal WBC Lactoferrin 07/08/23 * Giardia lamblia, Direct Detection EIA 07/08/23 * O & P Exam, Routine 07/08/23 * Clostridium Difficile PCR 07/08/23 * Enteric Panel by PCR 07/08/23 [place]11-29-2023 Hospital Discharge instructions Patient Education 08/06/2023 09:54:35 [...] Follow these instructions at home: Medicines Take izms-dyk-makllay and prescription medicines only as told by [...] to keep your urine pale yellow. ?Take fauf-hyx-pazetix or prescription medicines. ?Eat foods that are [...] and water are not available, use hand fish technologist. ?Change your dressing as told by your [...] provider. Document Revised: 02/26/2022 Document Reviewed: 02/26/2022 [employer] Patient Education 2022 [employer] Follow Up Care 07/21/2023 15:18:13 With:Alexx Gupta Address: [address] [place] [phone] Business (1) When: Unknown Comments:Appointment has already been scheduled [place]11-29-2023 NoteHistory and Physical Update H&P Reviewed. Patient [...] Brother. Hypertension: Mother, Father and Brother. TIA: Mother.[facility]11-20-2023 Note [id number] Discharge instructions Patient Education [...] ?Hypothyroidism. ?Polycystic ovarian syndrome (PCOS). ?Binge-eating disorder. ?[place] syndrome. Taking certain medicines, such as steroids, [...] food choices, such as grocery stores and [employer]. What are the signs or symptoms? The [...] and how much exercise you get. Take qsgv-fzl-uhwvlhe and prescription medicines only as told by [...] provider. Document Revised: 04/02/2022 Document Reviewed: 04/02/2022 [employer] Patient Education 2022 [employer] [facility] [place] 10-31-2023 Hospital Discharge instructions Patient Education 07/08/2023 [...] water added (diluted fruit juice). Eat bland, bqfw-ll-xdljdj foods in small amounts as you are able. These foods include bananas, applesauce, rice, lean meats, toast, and crackers. Avoid drinking fluids that contain a lot of sugar or caffeine, such as energy drinks, sports drinks, and soda. Avoid alcohol. Avoid spicy or fatty foods. General instructions Take kpgp-mcf-xkamily and prescription medicines only as told by your health care provider. Rest at home while you recover. Drink enough fluid to keep your urine pale yellow. Breathe slowly and deeply when you feel nauseous. Avoid smelling things that have strong odors. Wash your hands often using soap and water for at least 20 seconds. If soap and water are not available, use hand fish technologist. Make sure that everyone in your household [...] recommendations for eating and drinking and take kbkw-aud-tlgguzv and prescription medicinesonly as told by your [...] provider. Document Revised: 03/01/2022 Document Reviewed: 03/01/2022 [employer] Patient Education 2022 [employer] Follow Up Care 06/25/2023 15:34:03 With:Melissa Nunez CNP Address: When:1 to 2 weeks Comments:Following EGD/Colonoscopy. [facility] 10-31-2023 Evaluation + Plan note Future Scheduled Tests Laboratory* Fecal WBC Lactoferrin 07/08/23 * Giardia lamblia, Direct Detection EIA 07/08/23 * O & P Exam, Routine 07/08/23 * Clostridium Difficile PCR 07/08/23 * Enteric Panel by PCR 07/08/23 Radiology* US Gallbladder 07/08/23 [facility] 10-31-2023 Evaluation + Plan note Future Scheduled Tests Laboratory* Fecal WBC Lactoferrin 07/08/23 * Giardia lamblia, Direct Detection EIA 07/08/23 * O & P Exam, Routine 07/08/23 * Clostridium Difficile PCR 07/08/23 * Enteric Panel by PCR 07/08/23 [place]10-16-2023 Hospital Discharge instructions Patient Education 06/23/2023 12:53:51 [...] medicines. These include steroids, antibiotics, and some fegd-mjw-ilcngto medicines, such as aspirin or ibuprofen. Having [...] Follow these instructions at home: Medicines Take dbzn-qqo-wlipxuu and prescription medicines only as told by [...] provider. Document Revised: 12/29/2021 Document Reviewed: 12/29/2021 [employer] Patient Education 2022 [employer] Follow Up Care 06/23/2023 09:20:57 With:Michael Patino Address: [address], [address] [phone] Business (1) When:06/26/2023 12:35:39 With:TEZ ANGEL Address: [address] [place] [address] Business (1) When:06/26/2023 12:35:32 [place]10-16-2023 Evaluation + Plan noteExtracted from: Title:ED Note Author:Tosha BLAS, Alban Recio te:06/23/23 Gastritis (K29.70: Gastritis , unspecified, without [...] With Cult Reflex XR Chest Single View [place]04-02-2023 NotePROCEDURE: US PELVIS AND TRANSVAG, 12/06/2022 10:17 [...] Electronically authenticated by: MEGAN HINOJOSA Date: 2022-12-08 11:58[facility]02-14-2023 NoteCONSULTATION CONSULTATION DATE: 10/22/2022 CHIEF [...] stopped the steroids for approximately a month.[id number] Evaluation note* Encounter Date Diagnosis Assessment Notes [...] no improvement in 2 to 3 days [employer] [facility] 11-15-2022 NoteCONSULTATION CONSULTATION DATE: 07/23/2022 CHIEF [...] like to proceed. CC: Tez Angel M.D.[facility] [place] [address]-15-2022 NoteCONSULTATION PROCEDURE DATE: 07/23/2022 PREOPERATIVE DIAGNOSIS: Scar [...] will be followed up in the office.[facility] 06-27-2022 History general Narrative - Reported* Type Description Date Medical History ANXIETY AND DEPRESSION Medical History GERD Medical History RIGHT FOOT PAIN Surgical History LEP PROCEDURE 2018 Surgical History LAPROSCOPY PROCEDURE 2018 Surgical History MULTIPLE SURGERIES 06/2019 [employer] [facility] 09-27-2022 NoteCONSULTATION CONSULTATION DATE: 06/04/2022 CHIEF [...] in the office subsequent to authorization. [facility] [id number] Evaluation note* Encounter Date Diagnosis Assessment Notes [...] understanding and is agreeable to treatment plan [employer] [facility] Evaluation + Plan note Future Appointments Appointment Date:07/08/2023 02:00:00 PM Scheduled Provider:Melissa Nunez CNP Location[facility] Type:[facility] Follow Up [facility] [place] Evaluation + Plan note Future Appointments Appointment Date:07/21/2023 02:40:00 PM Scheduled Provider:Alexx Gupta MD Location:[facility] Appointment Type: New 30 Future Scheduled Tests Laboratory* Fecal WBC Lactoferrin 07/08/23 * Giardia lamblia, Direct Detection EIA 07/08/23 * O & P Exam, Routine 07/08/23 * Clostridium Difficile PCR 07/08/23 * Enteric Panel by PCR 07/08/23 [place] note Future Appointments Appointment Date:2023 07:00:00 AM Scheduled Provider: [facility] Type:CT Sinus/Orbits/Maxillofacial (FT) Appointment Date:07/25/2023 09:30:00 AM Scheduled Provider: Location:[facility] Appointment Type:Surgical PAT FT Appointment Date:08/06/2023 01:00:00 PM Scheduled Provider: Location:[facility] Appointment Type:Surgery FT Appointment Date:08/11/2023 01:30:00 PM Scheduled Provider:Glenn Gupta MD [facility] Type:Cardiology New Patient (FT) Appointment Date:08/15/2023 09:20:00 AM Scheduled Provider:Alexx Gupta MD Location:[facility] Appointment Type: Post Op 15 Future Scheduled Tests Laboratory* Fecal WBC Lactoferrin 07/08/23 * Giardia lamblia, Direct Detection EIA 07/08/23 * O & P Exam, Routine 07/08/23 * Clostridium Difficile PCR 07/08/23 * Enteric Panel by PCR 07/08/23 Radiology* CT Maxillofacial w/o Contrast 07/24/23 [facility] [place] Evaluation + Plan note Future Appointments Appointment Date:07/25/2023 09:30:00 AM Scheduled Provider: Location:[facility] Appointment Type:Surgical PAT FT Appointment Date:08/06/2023 01:00:00 PM Scheduled Provider: Location:[facility] Appointment Type:Surgery FT Appointment Date:08/11/2023 01:30:00 PM Scheduled Provider:Glenn Gupta MD [facility] Type:Cardiology New Patient (FT) Appointment Date:08/15/2023 09:20:00 AM Scheduled Provider:Alexx Gupta MD Location:[facility] Appointment Type:GS Post Op 15 Future Scheduled Tests Laboratory* Fecal WBC Lactoferrin 07/08/23 * Giardia lamblia, Direct Detection EIA 07/08/23 * O & P Exam, Routine 07/08/23 * Clostridium Difficile PCR 07/08/23 * Enteric Panel by PCR 07/08/23 [place] note Future Appointments Appointment Date:08/06/2023 01:00:00 PM Scheduled Provider: Location:[facility] Appointment Type:Surgery FT Appointment Date:08/11/2023 01:30:00 PM Scheduled Provider:Glenn Gupta MD [facility] Type:Cardiology New Patient (FT) Appointment Date:08/15/2023 09:20:00 AM Scheduled Provider:Alexx Gupta MD Location:[facility] Appointment Type:GS Post Op 15 Future Scheduled Tests Laboratory* Fecal WBC Lactoferrin 07/08/23 * Giardia lamblia, Direct Detection EIA 07/08/23 * O & P Exam, Routine 07/08/23 * Clostridium Difficile PCR 07/08/23 * Enteric Panel by PCR 07/08/23 [place] note Future Appointments Appointment Date:08/15/2023 09:20:00 AM Scheduled Provider:Alexx Gupta MD Location:[facility] Appointment Type: Post Op 15 Appointment Date:10/20/2023 03:45:00 PM Scheduled Provider:Glenn Gupta MD [facility] Type:Cardiology Follow Up (FT) Future Scheduled Tests Laboratory* Fecal WBC Lactoferrin 07/08/23 * Giardia lamblia, Direct Detection EIA 07/08/23 * O & P Exam, Routine 07/08/23 * Clostridium Difficile PCR 07/08/23 * Enteric Panel by PCR 07/08/23 Radiology* EC Stress Echo Complete w/ Contrast 08/11/23 [place] note Future Appointments Appointment Date:08/15/2023 09:20:00 AM Scheduled Provider:Alexx Gupta MD Location:[facility] Appointment Type: Established 15 Appointment Date:10/20/2023 03:45:00 PM Scheduled Provider:Glenn Gupta MD [facility] Type:Cardiology Follow Up (FT) Future Scheduled Tests Laboratory* Fecal WBC Lactoferrin 07/08/23 * Giardia lamblia, Direct Detection EIA 07/08/23 * O & P Exam, Routine 07/08/23 * Clostridium Difficile PCR 07/08/23 * Enteric Panel by PCR 07/08/23 Radiology* EC Stress Echo Complete w/ Contrast 08/11/23 [facility] Evaluation + Plan note Future Appointments Appointment Date:10/20/2023 03:45:00 PM Scheduled Provider:Glenn Gupta MD [facility] Type:Cardiology Follow Up (FT) Future Scheduled Tests Laboratory* Fecal WBC Lactoferrin 07/08/23 * Giardia lamblia, Direct Detection EIA 07/08/23 * O & P Exam, Routine 07/08/23 * Clostridium Difficile PCR 07/08/23 * Enteric Panel by PCR 07/08/23 Radiology* EC Stress Echo Complete w/ Contrast 08/11/23 [facility] Evaluation + Plan note Future Appointments Appointment Date:10/20/2023 03:45:00 PM Scheduled Provider:Glenn Gupta MD Location:[facility] Appointment Type:Cardiology Follow Up (FT) Future Scheduled Tests Laboratory* Fecal WBC Lactoferrin 07/08/23 * Giardia lamblia, Direct Detection EIA 07/08/23 * O & P Exam, Routine 07/08/23 * Clostridium Difficile PCR 07/08/23 * Enteric Panel by PCR 07/08/23 [place] noteNo assessment information available [facility] Work Phone: Evaluation note* Diagnosis Mild recurrent [...] PROCEDURE 2018 Surgical History MULTIPLE SURGERIES 06/2019 [employer] [facility] Hospital course Narrative No data available for this section [facility] No data available for this section [facility] [place] Progress note No data available for this section [place] Summary Purpose Family History No Family History [...] section and content) DATE CREATED AUTHOR 08/17/2018 [facility] DATE CREATED AUTHOR AUTHOR'S ORGANIZ ATION 01/16/2023 [facility] DATE CREATED AUTHOR AUTHOR'S ORGANIZ ATION 10/27/2023 [facility] DATE CREATED AUTHOR AUTHOR'S ORGANIZ ATION 10/28/2023 [facility] DATE CREATED AUTHOR AUTHOR'S ORGANIZ ATION 11/29/2023 [facility] DATE CREATED AUTHOR AUTHOR'S ORGANIZ ATION 01/29/2024 [facility] Specialists EPIC REASON FOR VISIT [...] Cm cameron 2023 End: October 01, 2023 Transfer Pumper Relationship Specialty Start Date End Date Tez [...] BE BASED ON THE PRIMARY CLINICAL RECORDS. [employer] provides no warranty or guarantee of the accuracy or completeness of information in this document.
== END 2024-03-04 12:21 | disposition home or self-care (01) ==
LOC: PM 12:21
PROVIDERS: PCP Family Medicine; Visit Provider Nurse Practitioner
DX: G57.71 Causalgia of right lower limb (principal)
CPT/HCPCS: G0463

== ENCOUNTER 2025-01-26 10:52 | Outpatient (OUT) | payer MEDICAID, SELFPAY ==
--- OUTSIDE RECORDS SUMMARY | 2025-01-26 10:58 | XMS_ITS | CCD ---
Author Organization [facility] Care Team Providers Care Dry End Operator Name Role Phone ADAMOWICZ, LATASHA J Unavailable Unavailable MATTHEWCHAY Unavailable Unavailable ADAMOWICZ, LATASHA J Unavailable Unavailable [...] Unavailable MATTHEW ., DR HAYS Consulting Unavailable NADERER, DR TEZ Whaley Primary Care Unavailable MATTHEW ., DR HAYS Attending Unavailable MATTHEW ., DR HAYS Admitting Unavailable NADERER, DR TEZ Whaley Primary Care Unavailable MATTHEW ., DR HAYS Consulting Unavailable GWYNEBER, DR BING Seaman Consulting Unavailable MATTHEW ., DR HAYS Attending Unavailable MATTHEW ., DR HAYS Admitting Unavailable NADERER, DR TEZ Whaley Primary Care Unavailable MATTEHW ., DR HAYS Consulting Unavailable MEGAN HINOJOSA [...] ANTON ., DR YOANS Tucker Consulting Unavailable NADERER, DR TEZ Whaley Primary Care Unavailable ANTON ., DR YONAS Tucker Attending Unavailable ALEGRE .NEIL Consulting Unavailable TEZ ANGEL Primary Care Physician MD Tez Angel Primary Care Provider [phone] Chay Castro Attending Provider [phone] Tez Angel MD Primary Care Provider Tez Angel Primary Care Unavailable Chay Castro Attending Unavailable Chay Castro Admitting Unavailable Heather Antunez MD Attending Unavailable Tez Angel MD Primary Care Provider [phone] Zeb BAH, Suzan Rodriguez Unavailable [phone] CHRISTOPHER MASTERS Attending Unavailable Melissa Nunez Attending Unavailable Alexx Gupta Attending Unavailable TEZ ANGEL Referring Unavailable Alexx Gupta Attending Unavailable Alexx Gupta Attending Unavailable Alexx Gupta Attending Unavailable Alexx Gupta Attending Unavailable TEZ ANGEL Referring Unavailable TEZ ANGEL Attending Unavailable TEZ ANGEL Admitting Unavailable Melissa Nunez Referring Unavailable Melissa Nunez Attending Unavailable Melissa Nunez A Admitting Unavailable Jean, Alexx Attending Unavailable Jean, Alexx Attending Unavailable Mourany, Alexx Dowling Attending Unavailable MouranyAlexx Admitting Unavailable MouranyAlexx Referring Unavailable ChristGlenn armendariz Attending Unavaila ble Glenn Gupta Admitting Unavaila ble NONE, XXXX Referring Unavailable Glenn Gupta Attending Unavaila ble Glenn Gupta Admitting Unavaila ble Melissa Nunez Referring Unavailable MouranyAlexx Referring Unavailable Mourany, Alexx Dowling Attending Unavailable MoAlexx vasquez Admitting Unavailable ChristGlenn armendariz Admitting Unavaila ble Glenn Gupta Referring Unavaila ble Glenn Gupta Attending Unavaila ble Glenn Gupta Consulting Unavaila ble MD Glenn Gupta Consulting Unava ilable Glenn Gupta Consulting Unavaila ble Timmis, Sarahy H Admitting Unavailable Timmis, Sarahy H Attending Unavailable Jean, Alexx Attending Unavailable TIMMIS, SARAHY H Referring Unavailable TIMMIS, SARAHY H Attending Unavailable NADERER, TEZ Attending Unavailable MATTHEW, CHAY Attending Unavailable MATTHEW, CHAY Attending Unavailable MATTHEW, CHAY Referring Unavailable NADERER, TEZ Attending Unavailable NADERER, TEZ Attending Unavailable DOLCE, TEZ D Attending Unavailable DOLCE, TEZ D Referring Unavailable TIMMIS, SARAHY H Attending Unavailable NADERER, TEZ Referring Unavailable Allergies Allergy Classification Reported Allergen(s) Allergy Type Date of Onset Reaction(s) Facility (20 sources) Iodine; Translations: [IODINE] Drug Allergy 8 Hives, Itching, Rash, Unknown [facility] Repository (20 sources) Acetaminophen / HYDROcodone; Translations: [Vicodin] Drug Allergy Unknown (qualifier value), Vomiting (disorder) [facility] Repository (9 sources) iodinated radiocontrast dyes; Translations: [iodinated radiocontrast agents] Drug allergy Unknown (qualifier value) [facility] [place] (13 sources) steri strips; Translations: [steri strips] Allergy to substance Itching (finding), Eruption of skin (disorder) [facility] (18 sources) Acetaminophen / HYDROcodone Drug Allergy 3 GI intolerance [facility] Healthcare Work Phone: (18 sources) Wound Dressing Adhesive Propensity to adverse reactions 3 Hives, Itching, Rash [facility] Healthcare (1 source) Acetaminophen Drug Allergy 3 [facility] Repository (1 source) HYDROcodone Drug Allergy 3 [facility] Repository Medications Current Medications Medication Drug Class(es) Dates Sig (Normalized) Sig (Original) acetaminophen 325 mg / oxyCODONE hydrochloride 5 mg oral tablet (9 sources) Opioid Agonist Start: 08-12-2023 Percocet 5 mg-325 mg oral tablet 1 tab(s), Oral, q6hr, 12 tab(s), Refill(s) 0, [facility] #[facility], 157, cm, 08/11/23 13:28:00 EST, Height/Length Dosing, 132.9, kg, 08/11/23 13:28:00 EST, Weight Dosing Start Date: 08/12/23 Status: Ordered Start: 08-06-2023 End: 08-08-2023 Percocet 5 mg-325 mg oral ta blet 1 tab(s), Oral, q6hr as needed for pain, 10 tab(s), Refill(s) 0, [facility] #[facility], 157.8, cm, 07/26/23 10:03:00 EST, Height/Length Dosing, 129.2, kg, 07/26/23 10:03:00 EST, Weight Dosing Start Date: 08/06/23 Stop Date: 08/08/23 Status: Ordered amoxicillin 500 mg oral capsule (1 source) Penicillin-class Antibacterial Start: 09-14-2022 take 1 capsule by mouth every eight hours Amoxicillin 500 MG 1 capsule Orally three times a day for 10 day(s) Sep, Active amoxicillin 875 mg / clavulanate 125 mg oral tablet (10 sources) Penicillin-class Antibacterial Start: 07-28-2024 End: 10-17-2024 take 1 tablet by mouth in the morning amoxicillin-clavu lanate (Augmentin) 875-125 MG tablet Indications: Chronic rhinosinusitis Take 1 tablet (875 mg) by mouth in the morning and 1 tablet (875 mg) before bedtime. 60 tablet 09/17/2024 10/17/2024 Active azithromycin 250 mg oral tablet (2 sources) Macrolide Antimicrobial Start: 07-05-2024 azithromycin 250 mg Tab 250 mg, Oral, As Directed, # 6 tab(s), Refills(s) 0, Pharmacy: [facility] #[facility], 157.4, cm, 07/05/24 17:14:00 EDT, Height/Length Dosing, 116.5, kg, 07/05/24 17:14:00 EDT, Weight Dosing Start Date: 07/05/24 Status: Ordered brompheniramine maleate 0.4 mg/ml / dextromethorphan hydrobromide 2 mg/ml / pseudoephedrine hydrochloride 6 mg/ml oral solution (1 source) alpha-Adrenergic Agonist, Uncompetitive G-qquune-P-aspartate Receptor Antagonist, Sigma-1 Agonist Start: 06-27-2024 End: 07-04-2024 take 10 mL by mouth four times daily for cough and congestion Bromfed DM oral syrup 10 mL, Oral, QID for cough and congestion for 7 day(s), 280 mL, Refill(s) 0, [facility] #37, 157, cm, 06/27/24 12:17:00 EDT, Height/Length Dosing, 116, kg, 06/27/24 12:17:00 EDT, Weight Dosing Start Date: 06/27/24 Stop Date: 07/04/24 Status: Ordered 24 hr buPROPion hydrochloride 300 mg extended release oral tablet (20 sources) Aminoketone Start: 11-02-2024 End: 12-27-2024 take 1 tablet by mouth once daily buPROPion XL (Wellbutrin XL) 300 MG 24 hr tablet Indications: Mild recurrent major depression (HCC) (CMS/HCC) Take 1 tablet (300 mg) by mouth Daily 90 tablet 3 12/28/2024 Active Start: 03-03-2024 End: 07-02-2024 take 1 tablet by mouth once daily buPROPion XL (Wellbutrin XL) 150 MG 24 hr tablet Indications: MARGARETH (generalized anxiety disorder) (CMS/HCC) Take 1 tablet (150 mg) by mouth Daily 30 tablet 5 07/02/2024 Active Start: 10-22-2023 End: 02-14-2024 take 1 tablet by mouth every twenty-four [...] a day for 14 days May, Active 12 hr cetirizine hydrochloride 5 mg / pseudoephedrine hydrochloride 120 mg extended release oral tablet (9 sources) alpha-Adrenergic Agonist, Histamine-1 Receptor Antagonist Start: 09-17-2024 End: 09-17-2025 take 1 tablet by mouth once in the morning, then take 1 tablet by mouth every twelve hours at bedtime cetirizine-pseudoeph edrine (ZyrTEC-D) 5-120 MG 12 hr tablet Indications: Chronic rhinosinusitis Take 1 tablet by mouth in the morning and 1 tablet before bedtime. 180 tablet 3 09/17/2024 09/17/2025 Active cholecalciferol 0.05 mg oral tablet (20 sources) Vitamin D Start: 02-03-2024 End: 07-28-2024 take 1 tablet by mouth once daily cholecalciferol (Vitamin D-3) 50 MCG (1999 UT) tablet Indications: Vitamin D deficiency, unspecified Take 1 tablet (50 mcg) by mouth Daily 90 tablet 3 07/28/2024 Active cholecalciferol (Vitamin D-3) 50 MCG (1999) tablet take 1 capsule by [facility] every twenty-four hours Vitamin D3 50 MCG (1999) 1 capsule Or ally Once a day Active chromium picolinate 1 mg oral tablet (4 sources) Start: 07-08-2023 chromium picol inate 1000 mcg oral tablet Refills(s) 0 Start Date: 07/08/23 Status: Ordered docusate sodium 50 mg / sennosides, group home 8.6 mg oral tablet (2 sources) take 1 tablet by mouth every twenty-four hours Senna S 8.6-50 MG 1 tablet in the evening as needed Orally Once a day Active Saniya-C - (2 sources) Saniya-C - as dir ected Orally Active etonogestrel 68 mg drug implant (2 sources) Progestin Nexplanon 68 MG as directed Subcutaneous Active fluticasone propionate 0.05 mg/actuat metered dose nasal spray (19 sources) Corticosteroid Start: 07-28-2024 End: 09-17-2025 take 2 spray(s) nasal route once daily fluticasone (Flonase) 50 MCG/ACT nasal spray Indications: Chronic rhinosinusitis Administer 2 sprays into each nostril Daily Shake gently. Before first use, prime pump. After use, clean tip and replace cap. 48 g 3 09/17/2024 09/17/2025 Active Start: 09-14-2022 take 2 spray(s) nasa l route once daily Fluticasone Propionate 50 MCG/ACT 2 sprays Nasally Once a day for 14 day(s) Sep, Active Start: 05-31-2022 take 1 spray(s) nasa l route twice daily Flonase Allergy Relief 50 MCG/ACT 1 spray in each nostril Nasally Twice a day for 14 day(s) May, Active furosemide 40 mg oral tablet (20 sources) Loop Diuretic Start: 08-06-2021 End: 12-27-2024 take 1 tablet by mouth once daily as needed furosemide (Lasix) 40 MG tablet Indications: Bilateral leg edema Take 1 tablet (40 mg) by mouth Daily as needed (as needed) 90 tablet 3 12/28/2024 Active gabapentin 100 mg oral capsule (20 sources) Anti-epileptic Agent Start: 08-21-2023 take 1 capsule by mouth at bedtime gabapentin (Neurontin) 100 MG capsule Take 100 mg by mouth at bedtime 08/21/2023 Active hydrOXYzine hydrochloride 50 mg oral tablet (20 sources) Antihistamine Start: 07-07-2023 End: 12-27-2024 take 1 tablet by mouth four times daily as needed for anxiety hydrOXYzine HCl (Atarax) 50 MG tablet Indications: MARGARETH (generalized anxiety disorder) (CMS/HCC) Take 1 tablet (50 mg) by mouth 4 (four) times a day as needed for anxiety 60 tablet 3 12/28/2024 Active take 1 tablet by zoë th every twenty-four hours hydrOXYzine HCl 25 MG 1 tablet at bedtim e as needed Orally Once a day Active levoFLOXacin 750 mg oral tablet (1 source) Quinolone Antimicrobial Start: 10-21-2022 take 1 tablet by mouth in the morning levoFLOXacin (Levaquin) 750 MG tablet Take 1 tablet by mouth in the morning. 0 10/21/2022 Active levothyroxine sodium 0.1 mg oral tablet (20 sources) l-Thyroxine Start: 07-08-2024 take 1 tablet by mouth once daily in the morning levothyroxine (Synthroid, Levoxyl) 100 MCG tablet Indications: History of hyperthyroidism TAKE 1 TABLET BY MOUTH EVERY MORNING ON AN EMPTY STOMACH 30 tablet 11 07/08/2024 Active Start: 07-01-2024 take 1 tablet by zoë th once daily in the morning levothyroxine (Synthroid, Levoxyl) 100 MCG tablet Indications: History of hyperthyroidism TAKE 1 TABLET BY MOUTH EVERY MORNING ON AN EMPTY STOMACH 30 tablet 07/01/2024 Active Start: 09-17-2023 take 1 tablet by zoë th once daily levothyroxine 100 mcg (0.1 mg) [...] Status: Ordered LORazepam 0.5 mg oral tablet (10 sources) Benzodiazepine Start: 08-06-2023 take 1 tablet by mouth once as needed for anxiety LORazepam 0.5 mg Tab 0.5 mg = 1 tab(s), Oral, Once, PRN as needed for anxiety Start Date: 08/06/23 Status: Ordered magnesium, chelated 100 mg oral tablet (13 sources) Start: 07-21-2023 take 1 tablet by mouth once daily magnesium amino acids chelate 100 mg oral tablet 100 mg = 1 tab(s), Oral, Daily, Refills(s) 0 Start Date: 07/21/23 Status: Ordered Start: 07-21-2023 take 1 tablet by [facility] three times daily magnesium amino acids chelate 100 mg oral tablet 100 mg = 1 tab(s), Oral, TID, Refills(s) 0 Start Date: 07/21/23 Status: Ordered meclizine hydrochloride 12.5 mg oral tablet (13 sources) Antiemetic Start: 07-21-2023 take 1 tablet [...] 1 tablet Orally Once a day Active moxifloxacin 5 mg/ml ophthalmic solution (1 source) Quinolone Antimicrobial Start: 06-27-2024 End: 07-04-2024 moxifloxacin 0.5% Opth Carolin 1 drop(s), OPTH, TID for 7 day(s), 3 mL, Refill(s) 0, [facility] #[facility], 157, cm, 06/27/24 12:17:00 EDT, Height/Length Dosing, 116, kg, 06/27/24 12:17:00 EDT, Weight Dosing Start Date: 06/27/24 Stop Date: 10/27/24 Status: Ordered ondansetron 4 mg oral tablet (20 sources) Serotonin-3 Receptor Antagonist Start: 08-10-2021 take 1 tablet by mouth every six hours as needed for nausea Zofran ODT 4 mg Tab 4 mg = 1 tab(s), Oral, q6hr, PRN Nausea/Vomiting, Refills(s) 0 Start Date: 08/10/21 Status: Ordered ondansetron (Zof ran) 4 MG/5ML solution Take by mouth 1 (one) time Active take 1 tablet by zoë th every eight hours as needed Ondansetron HCl 4 MG 1 tablet Orally wolf ry 8 hrs as needed Active pantoprazole 40 mg delayed release oral tablet (20 sources) Proton Pump Inhibitor Start: 08-10-2021 End: 12-27-2024 take 1 tablet by mouth once daily pantoprazole (ProtoNix) 40 MG EC tablet Indications: Gastro-esophageal reflux disease without esophagitis Take 1 tablet (40 mg) by mouth Daily 90 tablet 3 12/28/2024 Active potassium chloride 20 meq extended release oral tablet (20 sources) Start: 08-06-2021 End: 10-22-2023 take 1 tablet by mouth once daily as needed for edema potassium chloride CR (K-Tab) 20 MEQ ER tablet Indications: Edema of both legs Take 1 tablet (20 mEq) by mouth Daily as needed (Edema) 90 tablet 3 10/22/2023 Active predniSONE 20 mg oral tablet (5 sources) Start: 09-17-2024 End: 09-23-2024 take 1 tablet by mouth in the morning predniSONE (Deltasone) 20 MG tablet Indications: Chronic rhinosinusitis Take 1 tablet (20 mg) by mouth in the morning and 1 tablet (20 mg) before bedtime. Do all this for 6 days. 12 tablet 09/17/2024 09/23/2024 Active Start: 07-05-2024 End: 07-10-2024 take 1 tablet by mouth once daily predniSONE 50 mg Tab 50 mg = 1 tab(s), Oral, Daily, X 5 day(s), # 5 tab(s), Refills(s) 0, Pharmacy: [facility] #37, 157.4, cm, 07/05/24 17:14:00 EDT, Height/Length Dosing, 116.5, kg, 07/05/24 17:14:00 EDT, Weight Dosing Start Date: 07/05/24 Stop Date: 07/10/24 Status: Ordered Start: 06-27-2024 End: 07-02-2024 take 2 tablets by mouth once daily predniSONE 20 mg Tab 40 mg = 2 tab(s), Oral, Daily, X 5 day(s), # 10 tab(s), Refills(s) 0, Pharmacy: [facility] #37, 157, cm, 06/27/24 12:17:00 EDT, Height/Length Dosing, 116, kg, 06/27/24 12:17:00 EDT, Weight Dosing Start Date: 06/27/24 Stop Date: 07/02/24 Status: Ordered Start: 09-14-2022 take 1 tablet by zoë th every twelve hours predniSONE 20 MG 1 tablet Orally 2 times a day for 5 day(s) Sep, Active Multi + DHA (4 sources) Start: 07-08-2023 Multi + DHA Refill(s) 0 Start Date: 07/08/23 Status: Ordered rizatriptan 10 mg disintegrating oral tablet (17 sources) Serotonin-1b and Serotonin-1d Receptor Agonist Start: 09-15-2024 End: 11-02-2024 rizatriptan TELECOMM[employer]ICATIONS LINESWORKER (Maxalt-TELECOMMUNICATIONS LINESWORKER) 10 MG disintegrating tablet Indications: Ocular migraine (CMS/HCC) Take 1 tablet (10 mg) by mouth 1 (one) time if needed for migraine May repeat in 2 hours if unresolved. Do not exceed 30 mg in 24 hours. 9 tablet 5 11/02/2024 Active Start: 06-14-2024 rizatriptan ML T (Maxalt-TELECOMMUNICATIONS LINESWORKER) 10 MG disintegrating tablet Indications: Ocular migraine (CMS/HCC) Take 1 tablet (10 mg) by mouth 1 (one) time if needed for migraine May repeat in 2 hours if unresolved. Do not exceed 30 mg in 24 hours. 9 tablet 06/14/2024 Active spironolactone 50 mg oral tablet (4 sources) Aldosterone Antagonist Start: 01-27-2024 End: 07-28-2024 take 1 tablet by mouth once daily spironolactone (Aldactone) 50 MG tablet Indications: Edema of both legs Take 1 tablet (50 mg) by mouth Daily 30 tablet 5 01/27/2024 07/28/2024 Discontinued SUMAtriptan 25 mg oral tablet (17 sources) Serotonin-1b and Serotonin-1d Receptor Agonist Start: 08-27-2023 SUMAtriptan (Imitrex) 25 MG tablet Indications: Ocular migraine (CMS/HCC) 1 PO at onset of CADET; May repeat in 2 hours x one 9 tablet 3 08/27/2023 Active Start: 07-07-2023 take 9 tablets by mo [facility] every two hours SUMAtriptan 25 mg Tab 9 EA, 0 Refill(s), TAKE 1 TABLET BY MOUTH at onset OF headache may repeat in 2 (TWO) HOURS, Refills(s) 0 Start Date: 07/07/23 Status: Ordered topiramate 50 mg oral tablet (20 sources) Start: 07-07-2023 take 1 tablet by mouth in the morning topiramate (Topamax) 50 MG tablet Indications: Ocular migraine (CMS/HCC) Take 50 mg by mouth in the morning and 50 mg before bedtime. 60 tablet 5 08/30/2024 Active topiramate (Topa max) 25 MG tablet Topamax 0 Active traMADol hydrochloride 50 mg oral tablet (6 [...] Drug Class(es) Dates Sig (Normalized) Sig (Original) polyethylene glycol 3350 079996 mg / potassium chloride 1480 mg / sodium bicarbonate 5720 mg / sodium chloride 33507 mg powder for oral solution (15 sources) Osmotic Laxative Start: 07-08-2023 NuLYTELY Quach oral powder for reconstitution See Instructions, 1 EA, Refill(s) 0, Prior to colonoscopy., [facility], 157.5, cm, 07/08/23 14:03:00 EDT, Height/Length Dosing, 129.5, kg, 07/08/23 14:03:00 EDT, Weight Dosing Start Date: 07/08/23 Status: Ordered sucralfate 100 mg/ml oral suspension [...] Date: 06/23/23 Stop Date: 06/30/23 Status: Ordered Vitamin D3 2000 intl units o ral tablet (16 sources) Start: 07-07-2023 Vitamin D3 200 0 intl units oral tablet 30 EA, 0 Refill(s), TAKE 1 TABLET BY MOUTH DAILY, Refills(s) 0 Start Date: 07/07/23 Status: Ordered Problems Active Problems Problem Classification Problem Date Documented Da te Episodic/Chronic Abdominal pain (20 sources) Pelvic and perineal pain; Translations: [Epigastric pain] Onset: 3 Episodic Anxiety disorders (20 sources) Anxiety; Translations: [Generalized anxiety disorder] Onset: 3 08-06-2021 Chronic Biliary tract disease (20 sources) Biliary calculus; Translations: [Cholelithiasis without obstruction] Onset: 3 08-12-2021 Episodic Chronic obstructive pulmonary disease and bronchiectasis (1 source) Bronchitis; Translations: [Bronchitis, not specified as acute or chronic] Onset: 4 Episodic Deficiency and other anemia (17 sources) Anemia 08-06-2021 Episodic Endometriosis (18 sources) Endometriosis (clinical); Translations: [Endometriosis, unspecified] Onset: 3 03-21-2023 Chronic Esophageal disorders (20 sources) Gastroesophageal reflux disease; Translations: [Gastroesophageal reflux disease without esophagitis] Onset: 3 08-10-2021 Chronic Fracture of lower limb (2 sources) Closed fracture proximal phalanx, toe ; Translations: [Displaced fracture of proximal phalanx of right lesser toe(s), initial encounter for closed fracture] 08-17-2024 Episodic Gastritis and duodenitis (1 source) Gastritis; Translations: [Gastritis, unspecified, without bleeding] Onset: 3 Episodic Gastrointestinal hemorrhage (16 sources) Hemorrhage of rectum and anus; Translations: [Hemorrhage of anus and rectum] Onset: 3 Episodic Headache; including migraine (20 sources) Migraine; 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] Onset: 3 07-25-2023 Chronic Headache; including migraine (1 source) Headache; Translations: [Headache, unspecified] Onset: 4 Episodic Immunizations and screening for infectious disease (7 sources) Contact with and (suspected) exposure to other viral communicable diseases; Translations: [Encounter for screening for human papillomavirus (HPV)] Onset: 2 Episodic Inflammation; infection of eye (except that caused by tuberculosis or sexually transmitteddisease) (4 sources) Conjunctivitis; Translations: [Unspecified conjunctivitis] Onset: 4 Episodic Menstrual disorders (20 sources) Excessive and frequent menstruation with regular cycle; Translations: [Dysmenorrhea] Onset: 3 03-21-2023 Chronic Mood disorders (20 sources) Major depressive disorder; Translations: [Recurrent major depressive episodes, mild ] Onset: 3 Resolved: 4 07-25-2023 Chronic Nausea and vomiting (16 sources) Nausea; Translations: [Nausea] Onset: 3 Episodic Nutritional deficiencies (20 sources) Vitamin D deficiency, unspecified; Translations: [Vitamin D deficiency] Onset: 3 08-06-2021 Chronic Other acquired deformities (18 sources) Equinus contracture of the ankle; Translations: [Contracture, right ankle] Onset: 3 03-21-2023 Chronic Other connective tissue disease (5 sources) Pain in right foot; Translations: [PAIN IN RIGHT FOOT] Onset: 2 Episodic Other connective tissue disease (2 sources) Pain in right foot; Translations: [Pain in right foot] 08-17-2024 Episodic Other diseases of veins and lymphatics (1 source) Lymphedema, not elsewhere classified; Translations: [LYMPHEDEMA NOT ELSEWHERE CLASSIFIED] Onset: 2 Chronic Other endocrine disorders (20 sources) Polycystic ovary syndrome; Translations: [Polycystic ovarian syndrome] Onset: 3 08-06-2021 Chronic Other female genital disorders (1 source) Dyspareunia due to non-psychogenic cause in the female; Translations: [Other specified dyspareunia] Onset: 3 03-21-2023 Chronic Other female genital disorders (1 source) Abnormal uterine bleeding; Translations: [Abnormal uterine and vaginal bleeding, unspecified] Onset: 4 Chronic Other female genital disorders (17 sources) Pain in female genitalia on intercourse; Translations: [Unspecified dyspareunia] Onset: 3 11-12-2023 Chronic Other gastrointestinal disorders (1 source) Digestive system finding; Translations: [Other specified symptoms and signs involving the digestive system and abdomen] Onset: 3 Episodic Other gastrointestinal disorders (15 sources) Irregular bowel habits 07-08-2023 Episodic Other nervous system disorders (4 sources) Other specified mononeuropathies of right lower limb; Translations: [OTH SPEC MONONEUROPATH RT LOW LIMB] Onset: 2 Chronic Other nervous system disorders (1 source) Other specified mononeuropathies; Translations: [OTHER SPECIFIED MONONEUROPATHIES] Onset: 2 Chronic Other nervous system disorders (20 sources) Entrapment neuropathy of lower limb; Translations: [Unspecified mononeuropathy of right lower limb] Onset: 3 08-06-2021 Chronic Other nervous system disorders (18 sources) Complex regional pain syndrome of lower limb; Translations: [Complex regional pain syndrome I of unspecified lower limb] Onset: 3 03-21-2023 Chronic Other nervous system disorders (18 sources) Right tarsal tunnel syndrome; Translations: [Tarsal tunnel syndrome, right lower limb] Onset: 3 03-21-2023 Chronic Other nutritional; endocrine; and metabolic disorders (1 source) Obesity, unspecified; Translations: [OBESITY UNSPECIFIED] Onset: 2 Chronic Other nutritional; endocrine; and metabolic disorders (20 sources) Body mass index 40+ - severely obese; Translations: [Body mass index (BMI) 50.0-59.9, adult] Onset: 3 08-10-2021 Chronic Other nutritional; endocrine; and metabolic disorders (18 sources) Morbid obesity; Translations: [Morbid (severe) obesity due to excess calories] Onset: 3 08-06-2021 Chronic Other upper respiratory infections (19 sources) Chronic sinusitis, unspecified; Translations: [Chronic rhinitis] Onset: 4 07-28-2024 Chronic Other upper respiratory infections (2 sources) Acute sinusitis, unspecified; Translations: [Acute upper respiratory infection] Onset: 4 Episodic Otitis media and related conditions (1 source) Other acute nonsuppurative otitis media, bilateral Episodic Substance-related disorders (17 sources) Smoker 06-23-2023 Chronic Comment on above: Added secondary to d ocumentation in Social History. Superficial injury; contusion (2 sources) Contusion of right foot; Translations: [Contusion of right foot, initial encounter] 08-17-2024 Episodic Thyroid disorders (20 sources) Hypothyroidism; Translations: [Hypothyroidism, unspecified] Onset: 3 08-06-2021 Chronic Unclassified (18 sources) Patient on antidepressant monitoring plan Onset: 4 10-22-2023 Unclassified (18 sources) Baseline PHQ-9 Onset: 4 10-22-2023 Varicose veins of lower extremity (17 sources) Varicose veins of lower extremity 08-06-2021 Episodic Past or Other Problems Problem Classification Problem Date Documented Date Episodic/Chronic Cancer of cervix (20 sources) High grade squamous intraepithelial lesion on cervical Papanicolaou smear; Translations: [High grade squamous intraepithelial lesion on cytologic smear of cervix (HGSIL)] Onset: 11-12-2023 08-06-2021 Episodic Complications of surgical procedures or medical care (18 sources) Motion sickness; Translations: [Other complications of anesthesia, initial encounter] Onset: 03-21-2023 03-21-2023 Episodic Conditions associated with dizziness or vertigo (18 sources) Vertigo; Translations: [Dizziness and giddiness] Onset: 03-21-2023 03-21-2023 Episodic Diabetes mellitus without complication (20 sources) Prediabetes; Translations: [Prediabetes] Onset: 02-17-2024 08-06-2021 Episodic Other connective tissue disease (4 sources) Other muscle spasm; Translations: [OTHER MUSCLE SPASM] Onset: 06-04-2022 Episodic Other connective tissue disease (1 source) Myalgia, unspecified site; Translations: [MYALGIA UNSPECIFIED SITE] Onset: 06-07-2022 Episodic Other connective tissue disease (18 sources) Inflammatory neuropathy ; 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, unspecified] Onset: 03-21-2023 03-21-2023 Episodic Other connective tissue disease (18 sources) Plantar fasciitis; Translations: [Plantar fascial fibromatosis] Onset: 03-21-2023 03-21-2023 Episodic Other female genital disorders (5 sources) Other specified noninflammatory disorders of vagina; Translations: [OTH SPEC NONINFLAMMATORY D/O VAGINA] Onset: 04-12-2022 Episodic Other female genital disorders (18 sources) Dysplasia of cervix; Translations: [Dysplasia of cervix uteri, unspecified] Onset: 03-21-2023 03-21-2023 Episodic Other injuries and conditions due to external causes (18 sources) At risk for falls ; Translations: [History of falling] Onset: 03-21-2023 03-21-2023 Episodic Other lower respiratory disease (18 sources) Snoring; Translations: [Snoring] Onset: 03-21-2023 03-21-2023 Episodic Other nervous system disorders (18 sources) Difficulty walking; Translations: [Difficulty in walking, not elsewhere classified] Onset: 03-21-2023 Resolved: 08-27-2023 08-27-2023 Chronic Other screening for suspected conditions (not mental disorders or infectious disease) (20 sources) Abnormal coagulation profile; Translations: [Abnormal results of thyroid function studies] Onset: 04-15-2018 Episodic Other skin disorders (1 source) Scar conditions and fibrosis of skin; Translations: [SCAR CONDITIONS AND FIBROSIS SKIN] Onset: 07-27-2022 Episodic Residual codes; unclassified (1 source) Other specified postprocedural states; Translations: [OTH SPECIFIED POSTPROCEDURAL STATES] Onset: 06-07-2022 Episodic Residual codes; unclassified (20 sources) Bilateral lower limb edema; Translations: [Localized edema] Onset: 03-21-2023 10-22-2023 Episodic Spondylosis; intervertebral disc disorders; other back problems (18 sources) Backache; Translations: [Dorsalgia, unspecified] Onset: 03-21-2023 03-21-2023 Episodic Viral infection (20 sources) Genital warts; Translations: [Anogenital (venereal) warts] Onset: 11-12-2023 08-06-2021 Episodic Results Test Name Value Interpretation Reference Range Facility US PELVIC COMPLETE W/ TVon 0 01-17-2025 US PELVIC COMPLETE W/ TV EXAM: US PELVIC COMPLETE W/ TV HISTORY: Pelvic pain, vaginal pain. COMPARISON: None available. TECHNIQUE: Two-dimensional transabdominal grayscale ultrasound imaging of the pelvis was performed. Color flow Doppler imaging of the ovaries was also performed. Transvaginal was performed. FINDINGS: UTERUS The uterus is surgically absent, and the midline pelvis appears unremarkable. RIGHT OVARY The right ovary is not visualized. LEFT OVARY 4.4 x 3.6 x 4.0 cm The left ovary demonstrates a normal echotexture. There is normal color Doppler flow. There is a 3.1 cm mildly complex cyst visualized. No fluid is present within the cul-de-sac. IMPRESSION: 1. Surgically absent uterus. 2. Mildly complex left ovarian cyst. A follow-up transvaginal ultrasound in 6-8 weeks is recommended to monitor for resolution. 3. Normal color Doppler flow within the left ovary, the right ovary was not visualized. Interpreted by: Electronically signed by SHANT QUACH II, MD, PHD at 18-Jan-2025 08:11:35 AM [facility] Normal Not Available Comment on above: Order Comment: US PE LVIS-TRANSVAG IF INDICATED Patient's last menstrual period was 09/08/2023 (approximate). Urinalysis macro (dipstick) panel (U)on 01-12-2025 Bilirubin, UA Negative Negative - 4(70) +++ mg/dL [facility] Blood, UA Negative Negative - 50 Darren/mcL [facility] Clarity, UA Clear [facility] Color, UA Yellow [facility] Glucose, UA Negative Negative - 1999(110) ++++ mg/dL [facility] Interpretation and review of laboratory results Normal [facility] Ketones, UA Negative Negative - 160(16) ++++ mg/dL [facility] Leukocytes, UA Negative Negative - 500+++ Delmy/mcL [facility] Nitrite, UA Negative Negative - Positive [facility] pH, UA 7.5 5 - 9 [facility] Protein, UA Negative Negative - 1999(20) ++++ mg/dL [facility] Spec Grav, UA 1.02 1 - 1.03 [facility] Urobilinogen, UA 0.2 0.2 - 12 mg/dL [facility] Urinalysis macro (dipstick) panel (U)on 01-03-2025 Bilirubin, UA Negative Negative - 4(70) +++ mg/dL [facility] Blood, UA Negative Negative - 50 Darren/mcL [facility] Clarity, UA Clear [facility] Color, UA Yellow [facility] Glucose, UA Negative Negative - 1999(110) ++++ mg/dL [facility] Interpretation and review of laboratory results Normal [facility] Ketones, UA Negative Negative - 160(16) ++++ mg/dL [facility] Leukocytes, UA Negative Negative - 500+++ Delmy/mcL [facility] Nitrite, UA Negative Negative - Positive [facility] pH, UA 6 5 - 9 [facility] Protein, UA Negative Negative - 1999(20) ++++ mg/dL [facility] Spec Grav, UA 1.03 1 - 1.03 [facility] Urobilinogen, UA 1.0 0.2 - 12 mg/dL [facility] ALLERGENS W/TOTAL IGE AREA 5 on 11-03-2024 ACER NEGUNDO AB.IGE:ACNC:PT:SER:Q N: <0.10 Class 0 kunits/L [facility] ASPERGILLUS FUMIGATUS AB.IGE:ACNC:PT:SER:Q N: <0.10 Class 0 kunits/L [facility] BETULA VERRUCOSA AB.IGE:ACNC:PT:SER:Q N: <0.10 Class 0 kunits/L [facility] BLATELLA GERMANICA AB.IGE:ACNC:PT:SER:Q N: <0.10 Class 0 kunits/L [facility] CARYA PATINENSIS TREE AB.IGE:ACNC:PT:SER:Q N: <0.10 Class 0 kunits/L [facility] CLADOSPORIUM HERBARUM AB.IGE:ACNC:PT:SER:Q N: <0.10 Class 0 kunits/L [facility] FRAXINUS AMERICANA AB.IGE:ACNC:PT:SER:Q N: <0.10 Class 0 kunits/L [facility] ALTERNARIA ALTERNATA AB.IGE:ACNC:PT:SER:Q N: <0.10 Class 0 kunits/L [facility] AMBROSIA ELATIOR AB.IGE:ACNC:PT:SER:Q N: <0.10 Class 0 kunits/L [facility] CAT DANDER AB.IGE:ACNC:PT:SER:Q N: <0.10 Class 0 kunits/L [facility] CLASS DESCRIPTION Comment [facility] Comment on above: Levels of Specific I gE Class Description of Class ----- < 0.10 0 Negative 0.10 - 0.31 0/I Equivocal/Low 0.32 - 0.55 I Low 0.56 - 1.40 II Moderate 1.41 - 3.90 III High 3.91 - 19.00 IV Very High 19.01 - 100.00 V Very High >100.00 Very High [facility] CYNODON DACTYLON AB.IGE:ACNC:PT:SER:Q N: <0.10 Class 0 kunits/L [facility] DERMATOPHAGOIDES FARINAE AB.IGE:ACNC:PT:SER:Q N: <0.10 Class 0 kunits/L [facility] DERMATOPHAGOIDES PTERONYSSINUS AB.IGE:ACNC:PT:SER:Q N: <0.10 Class 0 kunits/L [facility] DOG DANDER AB.IGE:ACNC:PT:SER:Q N: <0.10 Class 0 kunits/L [facility] IGE:ACNC:PT:SER/PLAS :QN: 34 [facility] MOUSE URINE PROTEINS AB.IGE:ACNC:PT:SER:Q N: <0.10 Class 0 kunits/L [facility] QUERCUS ALBA AB.IGE:ACNC:PT:SER:Q N: <0.10 Class 0 kunits/L [facility] ULMUS AMERICANA AB.IGE:ACNC:PT:SER:Q N: <0.10 Class 0 kunits/L [facility] JUGLANS [place] POLLEN AB.IGE:ACNC:PT:SER:Q N: <0.10 Class 0 kunits/L [facility] JUNIPERUS SABINOIDES AB.IGE:ACNC:PT:SER:Q N: <0.10 Class 0 kunits/L [facility] MORUS ALBA AB.IGE:ACNC:PT:SER:Q N: <0.10 Class 0 kunits/L [facility] PENICILLIUM NOTATUM AB.IGE:ACNC:PT:SER:Q N: <0.10 Class 0 kunits/L [facility] PHLEUM PRATENSE AB.IGE:ACNC:PT:SER:Q N: <0.10 Class 0 kunits/L [facility] PIGWEED COMMON AB.IGE:ACNC:PT:SER:Q N: <0.10 Class 0 kunits/L [facility] PLATANUS ACERIFOLIA AB.IGE:ACNC:PT:SER:Q N: <0.10 Class 0 kunits/L [facility] POPULUS DELTOIDES AB.IGE:ACNC:PT:SER:Q N: <0.10 Class 0 kunits/L [facility] RUMEX ACETOSELLA AB.IGE:ACNC:PT:SER:Q N: <0.10 Class 0 kunits/L [facility] Comment on above: Performed at: [facility] [address] [id number] MD Jemal CASTRO AB.IGE:ACNC:PT:SER:Q N: <0.10 Class 0 kunits/L [facility] Original Ordering Provider: MD [facility] w/Total IgE Area 5 on 11-03-2024 A. alternata IgE Qn (S) <0.10 Invalid Interpretation Code Class 0 [facility] Comment on above: Performed By: #### 1 [id number] #### [facility] [address] [place] [address] A. fumigatus IgE Qn (S) <0.10 Invalid Interpretation Code Class 0 [facility] Comment on above: Performed By: #### 1 [id number] #### [facility] [address] [place] [address] Salvadorean house dust mite IgE Qn (S) <0.10 Invalid Interpretation Code Class 0 [facility] Comment on above: Performed By: #### 1 [id number] #### [facility] [address] [place] [address] Bermuda grass IgE Qn (S) <0.10 Invalid Interpretation Code Class 0 [facility] Comment on above: Performed By: #### 1 [id number] #### [facility] [address] [place] [address] Boxelder IgE Qn (S) <0.10 Invalid Interpretation Code Class 0 [facility] Comment on above: Performed By: #### 1 [id number] #### [facility] [address] [place] [address] C. herbarum IgE Qn (S) <0.10 Invalid Interpretation Code Class 0 [facility] Comment on above: Performed By: #### 1 [id number] #### [facility] [address] [place] [address] [place] Pollen IgE Qn (S) <0.10 Invalid Interpretation Code Class 0 [facility] Comment on above: Performed By: #### 1 [id number] #### [facility] [address] [place] [address] Cat dander IgE Qn (S) <0.10 Invalid Interpretation Code Class 0 [facility] Comment on above: Performed By: #### 1 [id number] #### [facility] [address] [place] [address] Class Description Comment Invalid Interpretation Code [facility] Comment on above: Result Comment: Mckenzie rivera of Specific IgE Class Description of Class ----- < 0.10 0 Negative 0.10 - 0.31 0/I Equivocal/Low 0.32 - 0.55 I Low 0.56 - 1.40 II Moderate 1.41 - 3.90 III High 3.91 - 19.00 IV Very High 19.01 - 100.00 V Very High >100.00 Very High Performed By: #### 1 [id number] #### [facility] [address] [place] [address] Cockroach IgE Qn (S) <0.10 Invalid Interpretation Code Class 0 [facility] Comment on above: Performed By: #### 1 [id number] #### [facility] [address] [place] [address] Common Pigweed IgE Qn (S) <0.10 Invalid Interpretation Code Class 0 [facility] Comment on above: Performed By: #### 1 [id number] #### [facility] [address] [place] [address] Common Ragweed IgE Qn (S) <0.10 Invalid Interpretation Code Class 0 [facility] Comment on above: Performed By: #### 1 [id number] #### [facility] [address] [place] [address] Wythe IgE Qn (S) <0.10 Invalid Interpretation Code Class 0 [facility] Comment on above: Performed By: #### 1 [id number] #### [facility] [address] [place] [address] Dog dander IgE Qn (S) <0.10 Invalid Interpretation Code Class 0 [facility] Comment on above: Performed By: #### 1 [id number] #### [facility] [address] [place] [address] house dust mite IgE Qn (S) <0.10 Invalid Interpretation Code Class 0 [facility] Comment on above: Performed By: #### 1 [id number] #### [facility] [address] [place] [address] IgE Qn 34 International_Unit/mL Invalid Interpretation Code 6-495 [facility] Comment on above: Performed By: #### 1 [id number] #### [facility] [address] [place] [address] [place] IgE Qn (S) <0.10 Invalid Interpretation Code Class 0 [facility] Comment on above: Performed By: #### 1 [id number] #### [facility] [address] [place] [address] Mountain Juniper IgE Qn (S) <0.10 Invalid Interpretation Code Class 0 [facility] Comment on above: Performed By: #### 1 [id number] #### [facility] [address] [place] [address] Mouse urine proteins IgE Qn (S) <0.10 Invalid Interpretation Code Class 0 [facility] Comment on above: Performed By: #### 1 [id number] #### [facility] [address] [place] [address] P. notatum IgE Qn (S) <0.10 Invalid Interpretation Code Class 0 [facility] Comment on above: Performed By: #### 1 [id number] #### [facility] [address] [place] [address] Pecan or [place] Tree IgE Qn (S) <0.10 Invalid Interpretation Code Class 0 [facility] Comment on above: Performed By: #### 1 [id number] #### [facility] [address] [place] [address] Saltwort IgE Qn (S) <0.10 Invalid Interpretation Code Class 0 [facility] Comment on above: Performed By: #### 1 [id number] #### [facility] [address] [place] [address] [address] IgE Qn (S) <0.10 Invalid Interpretation Code Class 0 [facility] Comment on above: Result Comment: Perf ormed at: [facility] [address], [place] [id number] MD Jemal Capps Performed By: #### 1 [id number] #### [facility] [address] [place] [address] Silver Birch IgE Qn (S) <0.10 Invalid Interpretation Code Class 0 [facility] Comment on above: Performed By: #### 1 [id number] #### [facility] [address] [place] [address] Latasha IgE Qn (S) <0.10 Invalid Interpretation Code Class 0 [facility] Comment on above: Performed By: #### 1 [id number] #### [facility] [address] [place] [address] White Daniel IgE Qn (S) <0.10 Invalid Interpretation Code Class 0 [facility] Comment on above: Performed By: #### 1 [id number] #### [facility] [address] [place] [address] White Elm IgE Qn (S) <0.10 Invalid Interpretation Code Class 0 [facility] Comment on above: Performed By: #### 1 [id number] #### [facility] [address] [place] [address] White mulberry IgE Qn (S) <0.10 Invalid Interpretation Code Class 0 [facility] Comment on above: Performed By: #### 1 [id number] #### [facility] [address] [place] [address] Clothier IgE Qn (S) <0.10 Invalid Interpretation Code Class 0 [facility] Comment on above: Performed By: #### 1 [id number] #### [facility] [address] [place] [address] CT MAXILLOFACIAL BONES WO IV CONTRASTon 11-03-2024 CT MAXILLOFACIAL BONES WO IV CONTRAST Exam: CT MAXILLOFACIAL BONES WO IV CONTRAST History: Maxillary sinusitis Technique: Multiple contiguous axial images were obtained of the maxillofacial bones without contrast. Multiplanar reformats were obtained. All CT scans at this facility use dose modulation, iterative reconstruction, and/or weight based dosing when appropriate to reduce radiation dose to as low as reasonably achievable. Comparison: None available Findings: Maxillary Sinuses: Clear. Ethmoid sinuses: Clear. Sphenoid sinuses: Clear. There is sphenoid pneumatization that extends inferior and posterior to the sella, resulting in a thin posterior bony margin of the clivus, consistent with sellar type pneumatization. Frontal sinuses: Clear. Right sphenoethmoidal recess: Clear. Left sphenoethmoidal recess: Clear. Right ostiomeatal complex and frontal recess: Clear. Left ostiomeatal complex and frontal recess: Clear. Nasal septum: Leftward deviation. Other: Keros type 2 olfactory fossa. No [place] or Javon cells. Mastoid air cells & middle ears: Clear. The middle ears are unremarkable. Soft tissues & Brain: No acute abnormality identified. Orbital contents are within normal limits. IMPRESSION: Paranasal sinuses appear clear. ELECTRONICALLY SIGNED BY: Megan Howard, DO Normal Not Available Comment on above: Order Comment: [facility] on [facility] Sinus WO at [facility] 30 Days. Has FU appt 10/29. Please call patient to schedule. XR Foot - right 3 [facility] Imaging Result: XRAY: Three views were taken today AP/MO/LAT foot: Right 4th digit PIPJ joint fracture intra-articular mildly displaced [facility] hospital Radiology Study observation (narrative) [facility] ED Note-Physicianon 07-06-20 ED Note-Physician ED Note-Physician Basic Information Time Seen: Franck BLAS, Bernabe Carvalho. 07/05/2024 17:15 Chief Complaint pt presents with cold. pt states she has not gotten better since last week when seen in urgent care. per pt she is dizzy and feels like she is swaying. taking cough syrup but has not helped the cough History of Present Illness A 33-year-old female reports to the emergency department with complaints of cough and congestion. Reports has not gotten better since over a week now. Reports that she feels lightheaded and feels like she is swaying. Reports has been taking cough medicine but is not improving her symptoms. Denies any fevers or chills. Denies any recent sick contacts. Denies any chest pain. Reports very mild shortness of breath with this. Review of Systems No other aggravating or relieving factors no other associated symptoms no other prior treatments or complaints. Family: Reviewed and noncontributory Social: lives at home Review of systems negative unless otherwise specified in the HPI. Physical Exam Vitals & Measurements T: 36.7 ???C(Tympanic) HR: 119(Peripheral) RR: 18 BP: 131/97 BP: 116/80(Standing) BP: 129/99(Supine) SpO2: 98% HT: 157.4 cm WT: 116.5 kg BMI: 47.02 General: The patient appears well and in no apparent distress. Patient is resting comfortably on bed. Afebrile Skin: Warm, dry, no pallor noted. Head: Normocephalic, atraumatic Neck: No JVD Eye: PERRLA, EOMI ENT: Moist mucus membranes Cardiovascular: Regular rate normal peripheral perfusion Respiratory: No respiratory distress no accessory muscle use no obvious audible wheezing. Lung sounds clear to auscultation Chest Wall: no deformity Musculoskeletal: normal ROM, no deformity, no swelling GI: No obvious distention Neurological: A&O moves all extremities equal strength and symmetry Psychiatric: Cooperative and appropriate Medical Decision Making MEDICAL DECISION MAKING Number and Complexity of Problems Differential Diagnosis: [] [facility] Data External documents reviewed: [] My EKG interpretation: reviewed My CT interpretation: [] My X-ray interpretation: reviewed My Ultrasound interpretation: [] Decision rules/scores evaluated: []The patient has acute bronchitis/bronchiolitis and antibiotics were not prescribed or dispensed today.[SATISFIES MIPS PERFORMANCE] [x] The patient has acute bronchitis/bronchiolitis. Antibiotics were prescribed or dispensed because the patient meets one of the following: [MIPS PERFORMANCE EXCEPTION/EXCLUSION] [x] Patient has a medical reason for prescribing or dispensing an antibiotic. That reason is been over 10 days, and likely bacterial source of infection. (ex. COPD, bacterial infection, acute sinusitis, etc.). [] Patient is currently on antibiotics or has been in the last 30 days. [] Patient's visit resulted in an inpatient admission. []The patient has acute bronchitis/bronchiolitis and antibiotics were prescribed or dispensed today. [DOES NOT SATISFY MIPS PERFORMANCE] Discussed with: [] Treatment and Disposition ED Course: 33-year-old female reports emergency department with complaints of cough and congestion. Reports just not feeling well. Reports been going over a week now. Exam of the patient is rather benign. Due to concerns though, we did do lab work. Lab reviewed noted. No acute changes seen. Negative troponin. Chest x-ray is negative. Due to length of symptoms well, likely bronchitis, with concerns for possible bacterial source of infection. Due to this, patient started on steroids as well as started on a Z-Rene. Discussed return cautions. Follow-up with your primary care provider in 3 to 5 days. If symptoms worsen, do not improve, or new symptoms arise please report back to emergency department for further evaluation. The patient was understanding and agreeable to plan moving forward. Shared decision making: [] Code status: [] Assessment/Plan Bronchitis (J40: Bronchitis, not specified as acute or chronic) Orders: azithromycin, 500 mg = 2 tab(s), Tab, Oral, Once, Stop date 07/05/24 19:00:00 EDT, STAT, Start date 07/05/24 19:00:00 EDT, 07/05/24 19:00:00 EDT azithromycin, 250 mg, Oral, As Directed, # 6 tab(s), Refills(s) 0, Pharmacy: [id number], 157.4, cm, 07/05/24 17:14:00 EDT, Height/Length Dosing, 116.5, kg, 07/05/24 17:14:00 EDT, Weight Dosing predniSONE, 60 mg = 3 tab(s), Tab, Oral, Once, Stop date 07/05/24 19:00:00 EDT, STAT, Start date 07/05/24 19:00:00 EDT, 07/05/24 19:00:00 EDT predniSONE, 50 mg = 1 tab(s), Oral, Daily, X 5 day(s), # 5 tab(s), Refills(s) 0, Pharmacy: [id number], 157.4, cm, 07/05/24 17:14:00 EDT, Height/Length Dosing, 116.5, kg, 07/05/24 17:14:00 EDT, Weight Dosing Basic Metabolic Panel CBC w/ Auto Diff ED Cardiac Monitoring eGFR Extra SST Tube PT & PTT Troponin 0 Hr. XR Chest Single View Medications Administered Given azithromycin 250 mg Tab, 500 mg, Oral predniSONE 20 mg Tab, 60 mg, (more content not included)... Normal [facility] Comment on above: Result Comment: Elec tronically Signed By: Bernabe Juárez PA-C\.br\Date and Time Signed: 07/05/24 20:10 EDT\.br\Electronically Co-Signed By: Alexx Pena DO\.br\Date and Time Co-Signed: 07/06/24 07:19 EDT XR Chest Single Viewon 07-06 XR Chest Single View Exam Date/Time: 07/05/2024 18:10 EDT Reason for Exam: Chest pain Report IMPRESSION: NO EVIDENCE OF ACTIVE CHEST DISEASE. CLINICAL HISTORY: Chest pain. Cough. COMPARISON: 06/23/2023. COMMENT: AP portable. The heart is normal in size. The mediastinum is unremarkable. The lungs appear clear. No infiltration nor pleural effusion is evident. No significant change is noted when compared to the prior exam. Ordering Provider: Bernabe Juárez FINAL REPORT Dictated: 07/06/2024 7:47 am Anthony Ficth M.D. Signed (Electronic Signature): 07/06/2024 7:47 am Signed by: Anthony Fitch M.D. Transcribed by: KARL Technologist: CRISTOBAL Technical Comments Radiation Dose: Ka,r in mGy = na DAP = na Normal [facility] BMPon 07-05-2024 Anion gap [Moles/Vol] 11 mmol/L Normal 6-16 [facility] Comment on above: Performed By: #### 2 [id number] #### [facility] [address] [place] [address] Calcium [Mass/Vol] 9.1 mg/dL Normal 8.9-11.1 [facility] Comment on above: Performed By: #### 2 [id number] #### [facility] [address] [place] [address] Chloride [Moles/Vol] 104 mmol/L Normal 101-111 [facility] Comment on above: Performed By: #### 2 [id number] #### [facility] [address] [place] [address] CO2 [Moles/Vol] 29 mmol/L Normal 21-31 [facility] Comment on above: Performed By: #### 2 [id number] #### [facility] [address] [place] [address] Creatinine [Mass/Vol] 1.2 mg/dL Normal 0.5-1.3 [facility] Comment on above: Performed By: #### 2 [id number] #### [facility] [address] [place] [address] Glucose [Mass/Vol] 89 mg/dL Normal 55-199 [facility] Comment on above: Performed By: #### 2 [id number] #### [facility] [address] [place] [address] Potassium [Moles/Vol] 3.5 mmol/L Normal 3.5-5.3 [facility] Comment on above: Performed By: #### 2 [id number] #### [facility] [address] [place] [address] Sodium [Moles/Vol] 140 mmol/L Normal 135-145 [facility] Comment on above: Performed By: #### 2 [id number] #### [facility] [address] [place] [address] Urea nitrogen [Mass/Vol] 20 mg/dL Normal 5-21 [facility] Comment on above: Performed By: #### 2 [id number] #### [facility] [address] [place] [address] Urea nitrogen/Creatinine [Mass ratio] 17 No Units Normal 10-20 [facility] Comment on above: Performed By: #### 2 [id number] #### [facility] [address] [place] [address] CBC w/ Auto Diffon 4 Basophils/100 WBC (Bld) 0.5 % Normal 0.0-2.0 [facility] Comment on above: Performed By: #### 2 [id number] #### [facility] [address] [place] [address] Basophils/Leukocytes Auto (Bld) [Pure # fraction] 0.1 E9/L Normal 0.0-0.2 [facility] Comment on above: Performed By: #### 2 [id number] #### [facility] [address] [place] [address] Eosinophils (Bld) [#/Vol] 0.1 E9/L Normal 0.0-0.5 [facility] Comment on above: Performed By: #### 2 [id number] #### [facility] [address] [place] [address] Eosinophils/100 WBC (Bld) 1.0 % Normal 0.0-8.0 [facility] Comment on above: Performed By: #### 2 [id number] #### [facility] [address] [place] [address] Erythrocyte distribution width (RBC) [Ratio] 12.3 % Normal 10.9-14.2 [facility] Comment on above: Performed By: #### 2 [id number] #### [facility] [address] [place] [address] Hematocrit (Bld) [Volume fraction] 41.2 % Normal 34.0-46.0 [facility] Comment on above: Performed By: #### 2 [id number] #### [facility] [address] [place] [address] Hemoglobin (Bld) [Mass/Vol] 14.1 g/dL Normal 12.0-16.0 [facility] Comment on above: Performed By: #### 2 [id number] #### [facility] [address] [place] [address] Lymphocytes (Bld) [#/Vol] 2.8 E9/L Normal 1.0-4.0 [facility] Comment on above: Performed By: #### 2 [id number] #### [facility] [address] [place] [address] Lymphocytes/100 WBC (Bld) 25.4 % Normal 14.0-50.0 [facility] Comment on above: Performed By: #### 2 [id number] #### [facility] [address] [place] [address] MCH (RBC) [Entitic mass] 33.2 pg Normal 27.0-34.0 [facility] Comment on above: Performed By: #### 2 [id number] #### [facility] [address] [place] [address] MCHC (RBC) [Mass/Vol] 34.1 g/dL Normal 31.4-36.0 [facility] Comment on above: Performed By: #### 2 [id number] #### [facility] [address] [place] [address] MCV (RBC) [Entitic vol] 97.3 fL Normal 80.0-100.0 [facility] Comment on above: Performed By: #### 2 [id number] #### [facility] [address] [place] [address] Monocytes (Bld) [#/Vol] 0.7 E9/L Normal 0.2-1.0 [facility] Comment on above: Performed By: #### 2 [id number] #### [facility] [address] [place] [address] Neutrophils (Bld) [#/Vol] 7.3 E9/L Normal 2.0-7.5 [facility] Comment on above: Performed By: #### 2 [id number] #### [facility] [address] [place] [address] Neutrophils/100 WBC (Bld) 66.7 % Normal 36.0-75.0 [facility] Comment on above: Performed By: #### 2 [id number] #### [facility] [address] [place] [address] Platelet mean volume (Bld) [Entitic vol] 8.2 fL Normal 6.4-10.8 [facility] Comment on above: Performed By: #### 2 [id number] #### [facility] [address] [place] [address] Platelets (Bld) [#/Vol] 310.0 E9/L Normal 150.0-500. 0 [facility] Comment on above: Performed By: #### 2 [id number] #### [facility] [address] [place] [address] RBC (Bld) [#/Vol] 4.2 E12/L Low 4.3-5.9 [facility] Comment on above: Performed By: #### 2 [id number] #### [facility] [address] [place] [address] WBC corrected for nucl RBC Auto (Bld) [#/Vol] 10.9 E9/L Normal 4.0-11.0 [facility] Comment on above: Performed By: #### 2 [id number] #### [facility] [address] [place] [address] CHEMISTRYOrdered By: SYSTEM SYSTEM on 07-05-2024 Anion gap [Moles/Vol] 11 mmol/L Normal 6 - 16 mEq/L [facility] Calcium [Mass/Vol] 9.1 mg/dL Normal 8.9 - 11. 1 mg/dL [facility] Chloride [Moles/Vol] 104 mmol/L Normal 101 - 1 11 mmol/L [facility] CO2 [Moles/Vol] 29 mmol/L Normal 21 - 31 mmol/L [facility] Creatinine [Mass/Vol] 1.2 mg/dL Normal 0.5 - 1.3 mg/dL [facility] eGFR 61 mL/min/1.73 m2 Normal >=59mL/min /1.73 m2 [facility] Glucose [Mass/Vol] 89 mg/dL Normal 55 - 199 mg/dL [facility] Potassium [Moles/Vol] 3.5 mmol/L Normal 3.5 - 5.3 mmol/L [facility] Sodium [Moles/Vol] 140 mmol/L Normal 135 - 145 mmol/L [facility] Troponin HS 2.90 pg/mL Low 10.10 - 27.10 pg/mL [facility] Comment on above: Interpretive Data: T he 95% CI (Confidence Interval) PPV (Positive Predictive Value) for myocardial infarction in females is 38 pg/mL, in males 51 pg/mL. The results should be used in conjunction with clinical conditions of myocardial infarction. (Access High Sensitivity Troponin I Instructions For Use, [place], April 2018) Urea nitrogen [Mass/Vol] 20 mg/dL Normal 5 - 21 mg/dL [facility] Urea nitrogen/Creatinine [Mass ratio] 17 mg/mg Normal 10 - 20 [facility] COAGULATIONOrdered By: Hamlet Ley on 07-05-2024 aPTT Coag (PPP) [Time] 30.3 s Normal 25.1 - 36.5 second(s) [facility]ag Comment on above: Interpretive Data: [...] the same coagulation reagent and instrumentation as [facility]. Currently there are no coagulation studies available worldwide for children to 14 days, and no normal ranges. Heparin therapeutic range (represented by Anti-Factor Xa activity of 0.2 - 0.4 U/mL) corresponds to PTT of 56.6 - 109.0 sec. INR Coag (PPP) [Relative time] 0.94 {INR} Invalid Interpretation Code [facility] Comment on above: Interpretive Data: I NR results are specifically intended to assess patients stabilized on long-term Anticoagulation therapy suggested INR s Less Intensive Anticoagulation 2.0 3.0 Conventional Range 3.0 4.5 PT Coag (PPP) [Time] 10.5 s Normal 9.4 - 1 2.5 second(s) [facility] Comment on above: Interpretive Data: 1 5 days - 4 weeks 1 - 5 months 6 -11 months 1-5 years 6-10 years 11 -17 years Mean: 11.2 (9.5-12.6) Mean: 11.0 (9.7-12.8) Mean: 11.0 (9.8-13.0) Mean: 11.3 (9.9-13.4) Mean: 11.7 (10.0-14.6) Mean: 11.8 (10.0 - 14.1) Pediatric Reference ranges were obtained from a study by joselyn De Los Santos al. prepared from 1437 samples obtained at 7 different centers using the same coagulation reagent and instrumentation as [facility]. Currently there are no coagulation studies available worldwide for children to 14 days, and no normal ranges. ED Clinical Summaryon 2023 ED Clinical Summary ED Clinical Summary [place] [id number] ED Clinical Summary Person Information Name: AZUL ONTIVEROS [facility] Age: 33 Years : 1990 Sex: Female Language: Tamazight PCP: TEZ ANGEL MD Marital Status: Single Visit Id: Visit Reason: Dizziness; Cough; SORE THROAT, HEAD COLD Speciality: Acuity: 4 Enc Type: Emergency Med Service: Emergency Arrival: 07/05/2024 17:04:00 Discharge: 07/05/2024 19:13:47 LOS: 000 02:09 Checkin: 07/05/2024 17:04:00 Checkout: 07/05/2024 19:13:47 Dispo Type: Home (Routine DC) EVENTS: Event Name Event Status Request Date/Time Start Date/Time Complete Date/Time Arrive Complete 07/05/2024 17:04:00 07/05/2024 17:04:00 07/05/2024 17:04:00 Document Home Meds Request 07/05/2024 17:04:00 Triage Complete 07/05/2024 17:04:00 07/05/2024 17:14:18 07/05/2024 17:14:18 Registration Complete 07/05/2024 17:07:12 07/05/2024 17:07:12 07/05/2024 17:07:12 Reg Complete Request 07/05/2024 17:07:12 Reg Bed Request Complete 07/05/2024 17:07:12 07/05/2024 17:07:12 07/05/2024 17:07:12 EKG Complete 07/05/2024 17:11:25 07/05/2024 17:28:12 Bed Assign Complete 07/05/2024 17:14:39 07/05/2024 17:14:39 07/05/2024 17:14:39 Dr Exam Complete 07/05/2024 17:14:39 07/05/2024 17:15:29 07/05/2024 17:15:29 RN Exam Complete 07/05/2024 17:14:39 07/05/2024 17:23:45 07/05/2024 17:23:45 Registration Request 07/05/2024 17:15:29 Dr Exam Complete 07/05/2024 17:15:51 07/05/2024 17:15:51 07/05/2024 17:15:51 Pending Labs Request 07/05/2024 17:37:47 Lab Complete 07/05/2024 17:37:47 07/05/2024 18:33:01 Patient Care Cancel 07/05/2024 17:37:47 07/05/2024 17:40:03 X-Ray Complete 07/05/2024 17:37:47 07/05/2024 17:49:48 07/05/2024 18:10:37 Pending Labs Complete 07/05/2024 18:09:01 07/05/2024 18:09:01 07/05/2024 18:33:01 Lab Complete 07/05/2024 18:09:01 07/05/2024 18:09:01 07/05/2024 18:33:01 Wet Read Complete 07/05/2024 18:10:37 07/05/2024 18:23:40 07/05/2024 18:23:40 Pending Labs Complete 07/05/2024 18:11:44 07/05/2024 18:11:44 07/05/2024 18:11:45 Meds Admin Complete 07/05/2024 19:00:19 07/05/2024 19:09:22 Discharge Complete 07/05/2024 19:02:10 07/05/2024 19:13:53 07/05/2024 19:13:53 Transfer Complete 07/05/2024 19:13:53 07/05/2024 19:13:53 07/05/2024 19:13:53 [facility] [id number] PHYS DOC NOTES: MEDICAL INFORMATION: Prescriptions Given: [facility], [address] [place] [phone], [phone] azithromycin (azithromycin 250 mg Tab) 250 Milligram By Mouth As Directed. Refills: 0. predniSONE (predniSONE 50 mg Tab) 1 Tablets By Mouth every day for 5 Days. Refills: 0. Medications to Continue with [...] MOUTH TWICE DAILY. PATIENT EDUCATION INFORMATION: Instructions: Acute Bronchitis, Adult, [id number] Follow up: With: Address: When: [address] [place], [place] [id number] Business (1) In 3 days 07/08/2024 Comments: Call Dr for diagnosis based follow up DIAGNOSIS: Bronchitis Normal [facility] ED Patient Summaryon 024 ED Patient Summary ED Patient Summary [place] [id number] Patient Discharge Instructions Person Information Name: AZUL ONTIVEROS Age: 33 Years Arrival Date: 07/05/2024 17:04:00 Discharge Diagnosis: Bronchitis Primary Care Physician: TEZ ANGEL MD Provider Information Primary Provider: Alexx Pena DO [employer] Manager:None The exam and treatment you received in the Emergency Department were for an urgent problem and are not intended as complete care. It is important that you follow up with a doctor, nurse practitioner, or physician???s management assistant for ongoing care. If your symptoms become worse or you do not improve as expected and you are unable to reach your usual health care provider, you should return to the Emergency Department. We are available 24 hours a day. PRINCE AZUL ALLEN has been given the following list of patient education materials, prescriptions and follow-up instructions: Follow-up Instructions: With: Address: When: [address] [place], [place] [phone] Business (1) In 3 days 07/08/2024 Comments: Call Dr for diagnosis based follow up In the event that this physician does not participate in your insurance network, please consult with your insurance company to find a nearby participating provider. Patient Education Materials: Acute Bronchitis, Adult, Ltsi-ui-Lcar A MESSAGE TO ALL PATIENTS REGARDING OPIOIDS PRESCRIPTION OPIOIDS: WHAT YOU NEED TO KNOW Prescription opioids can be used to help relieve cbulatqs-pl-puhnrj pain and are often prescribed following a [...] as well, even when taken as directed: ??? Tolerance???meaning you might need to take more of the medication for the same pain relief ??? Physical dependence???meaning you have symptoms of withdrawal when a medication is stopped ??? Increased sensitivity to pain ??? Constipation ??? Nausea, vomiting, and dry mouth ??? Sleepiness and dizziness ??? Confusion ??? Depression ??? Low levels of testosterone that can result in lower sex drive, energy, and strength ??? Itching and sweating RISKS ARE GREATER WITH: ??? History of drug misuse, substance use disorder, or overdose ??? Mental health conditions (such as depression or anxiety) ??? Sleep apnea ??? Older age (65 years and older) ??? Avoid alcohol while taking prescription opioids. Also, unless specifically advised by your health care provider, medications to avoid include: ??? Benzodiazepines (such as Xanax or Valium) ??? Muscle relaxants (such as Soma or Flexeril) ??? Hypnotics (such as Ambien or Lunesta) ??? Other prescription opioids KNOW YOUR OPTIONS Talk to your health care provider about ways to manage your pain that don???t involve prescription opioids. Some of these options may actually work better and have fewer risks and side effects. Options may include: ??? Pain relievers such as acetaminophen, ibuprofen, and naproxen ??? Some medication that are also used for depression or seizures ??? Physical therapy and exercise ??? Cognitive behavioral therapy, a psychological, goal-directed approach, in which patients learn how to modify physical, behavioral, and emotional triggers of pain and stress. IF YOU ARE PRESCRIBED OPIOIDS FOR PAIN: ??? Never take opioids in greater amounts or more often than prescribed. ??? Follow up with your primary health care provider. o Work together to create a plan on how to manage your pain. o Talk about ways to help manage your pain that don???t involve prescription opioids. o Talk about any and all concerns and side effects. ??? Help prevent misuse and abuse o Never sell or share prescription opioids. o Never use another person???s prescription opioids. ??? Store prescription opioids in a secure place and out of reach of others (this may include visitors, children, friends, and family). ??? Safely dispose of unused prescription opioids: Find your community drug take-back program or your pharmacy mail-back program, or flush them down the toilet, following guidance from the Food and Drug Administration (www.fda.gov/Drugs/Resourc esForYou). ??? Visit www.cdc.gov/drugoverdose to learn about the risks of opioids abuse and overdose. ??? If you believe you may be struggling w (more content not included)... Normal [facility] HEMATOLOGYOrdered By: SYSTEM SYSTEM on 07-05-2024 Basophils/100 WBC (Bld) 0.5 % Normal 0.0 - 2.0 % [facility] Basophils/Leukocytes Auto (Bld) [Pure # fraction] 0.1 E9/L Normal 0.0 - 0.2 E9/L [facility] Eosinophils (Bld) [#/Vol] 0.1 E9/L Normal 0.0 - 0.5 E9/L [facility] Eosinophils/100 WBC (Bld) 1.0 % Normal 0.0 - 8.0 % [facility] Erythrocyte distribution width (RBC) [Ratio] 12.3 % Normal 10.9 - 14.2 % [facility] Hematocrit (Bld) [Volume fraction] 41.2 % Normal 34.0 - 46.0 % [facility] Hemoglobin (Bld) [Mass/Vol] 14.1 g/dL Normal 12.0 - 16.0 gm/dL [facility] Lymphocytes (Bld) [#/Vol] 2.8 E9/L Normal 1.0 - 4.0 E9/L [facility] Lymphocytes/100 WBC (Bld) 25.4 % Normal 14.0 - 50.0 % [facility] MCH (RBC) [Entitic mass] 33.2 pg Normal 27.0 - 34.0 pg [facility] MCHC (RBC) [Mass/Vol] 34.1 g/dL Normal 31.4 - 36.0 gm/dL [facility] MCV (RBC) [Entitic vol] 97.3 fL Normal 80.0 - 100.0 fL [facility] Monocytes (Bld) [#/Vol] 0.7 E9/L Normal 0.2 - 1.0 E9/L [facility] Monocytes/100 WBC (Bld) 6.4 % Normal 4.0 - 14.0 % [facility] Neutrophils (Bld) [#/Vol] 7.3 E9/L Normal 2.0 - 7.5 E9/L [facility] Neutrophils/100 WBC (Bld) 66.7 % Normal 36.0 - 75.0 % [facility] Platelet mean volume (Bld) [Entitic vol] 8.2 fL Normal 6.4 - 10.8 fL [facility] Platelets (Bld) [#/Vol] 310.0 E9/L Normal 150.0 - 500.0 E9/L [facility] RBC (Bld) [#/Vol] 4.2 E12/L Low 4.3 - 5.9 E12/L [facility] WBC corrected for nucl RBC Auto (Bld) [#/Vol] 10.9 E9/L Normal 4.0 - 11.0 E9/L [facility] PT & PTTon 07-05-2024 aPTT Coag (PPP) [Time] 30.3 second(s) Normal 25.1-36.5 [facility] Comment on above: Result Comment: Para meter 15 days - 4 weeks 1 - 5 months 6 - 11 months 1 - 5 years 6 - 10 years 11 - 17 years PTT Mean: 35.4 (27.6-45.6) Mean: 33.5 (24.8-40.7) Mean: 32.4 (25.1-40.7) Mean: 31.6 (24.0-39.2) Mean: 31.6 (26.9-38.7) Mean: 31.0 (24.6-38.4) Pediatric Reference ranges were obtained from a study by ginger De Los Santos prepared from 1437 samples obtained at 7 different centers using the same coagulation reagent and instrumentation as [facility]. Currently there are no coagulation studies available worldwide for children to 14 days, and no normal ranges. Heparin therapeutic range (represented by Anti-Factor Xa activity of 0.2 - 0.4 U/mL) corresponds to PTT of 56.6 - 109.0 sec. Performed By: #### 1 [id number] #### [facility] [address] [place] [address] INR Coag (PPP) [Relative time] 0.94 {INR} Invalid Interpretation Code [facility] Comment on above: Result Comment: INR results are specifically intended to assess patients stabilized on long-term Anticoagulation therapy suggested INR???s ???Less Intensive Anticoagulation??? 2.0 ??? 3.0 Conventional Range 3.0 ??? 4.5 Performed By: #### 1 [id number] #### [facility] [address] [place] [address] PT Coag (PPP) [Time] 10.5 second(s) Normal 9.4-12.5 [facility] Comment on above: Result Comment: 15 d ays - 4 weeks 1 - 5 months 6 -11 months 1- 5 years 6-10 years 11 -17 years Mean: 11.2 (9.5-12.6) Mean: 11.0 (9.7-12.8) Mean: 11.0 (9.8-13.0) Mean: 11.3 (9.9-13.4) Mean: 11.7 (10.0-14.6) Mean: 11.8 (10.0 - 14.1) Pediatric Reference ranges were obtained from a study by ginger De Los Santos prepared from 1437 samples obtained at 7 different centers using the same coagulation reagent and instrumentation as [facility]. Currently there are no coagulation studies available worldwide for children to 14 days, and no normal ranges. Performed By: #### 1 [id number] #### [facility] [address] [place] [address] Troponin 0 Hr.on 07-05-2024 Troponin HS 2.90 pg/mL Low 10.10-27.1 0 [facility] Comment on above: Result Comment: The 95% CI (Confidence Interval) PPV (Positive Predictive Value) for myocardial infarction in females is 38 pg/mL, in males 51 pg/mL. The results should be used in conjunction with clinical conditions of myocardial infarction. (Access High Sensitivity Troponin I Instructions For Use, [employer], April 2018) Performed By: #### 1 [id number] #### [facility] [address] [place] [address] eGFRon 07-05-2024 eGFR 61 mL/min/1.73 m2 Normal >=59 [facility] Comment on above: Performed By: #### 1 [id number] #### [facility] [address] [place] [address] Family Medicine Office/Clini c Noteon 06-28-2024 Family Medicine Office/Clinic Note Family Medicine Office/Clinic Note Chief Complaint cough, sore throat, congestion HPI Staff complaints of sore throat, cough Onset: 6 days Characteristics: congestion, loss of appetite, eye drainage and redness, facial pain OTC tried: DayQuil, mucinex History of Present Illness Reviewed and agree with above documented HPI by medical case worker. Portions of this record may have been created with voice recognition artificial intelligence software, specifically Kingnet, ExecMobile and or Synapse. Substitutions may have occurred due to the inherent limitations of voice recognition and artificial intelligence software. Patient is a 33-year-old female who presents to [facility] care, for sinus congestion, facial pressure, bilateral eye conjunctivitis, loss of appetite, and a nonproductive cough that is worse at night, patient states symptoms been going on for about 6 days, she is sure that the sinus infection and started having bilateral conjunctivitis, states her eyes are itchy but not painful, patient states she has been taking vnio-rvf-[id number] DayQuil and Mucinex without any relief, states she is not concerned about COVID-19 or influenza, patient states she does smoke cigarettes, not vaping, has no history of asthma or bronchitis, patient states no one else at home is sick she is currently not working at this time. Patient denies having any headache, dizziness, fevers, chills, nausea vomiting, difficulty swallowing, productive cough, worsening cough, wheezing, chest pain, dyspnea exertion, weakness. Review of Systems PHQ Score Initial Depression Screen Score: 0 SCORE Physical Exam Vitals & Measurements T: 36 ?C(Temporal Artery) HR: 111(Peripheral) BP: 120/80 SpO2: 99% HT: 62 in HT: 157 cm WT: 116 kg WT: 255.2 lb BMI: 47.06 General: Well developed, well nourished, in no acute distress patient does appear ill but not septic. No respiratory distress. Patient answers questions appropriately and in complete sentences, and follows commands appropriately. Head: Normocephalic/atraumatic positive upper respiratory infection. Eyes: Positive bilateral conjunctivitis, right greater than left, matted eyelashes, no eye pain, photophobia, subconjunctival hemorrhage, edema, or globe trauma noted. Pupils equal, round, and reactive to light. Conjunctivae and sclerae normal, Ears: Bilateral TMs and bilateral external canals are both within normal limits. Hearing is intact. Nose: No deformity, discharge, inflammation, or lesions Mouth: Mucous membranes moist. Normal oropharynx, and posterior pharynx without erythema, postnasal drip, lesions, or exudates. No trismus. No difficulty swallowing. Neck: Neck supple. No masses or palpable cervical nodes. No mastoid tenderness. Lungs: Normal respiratory effort and clear to auscultation throughout. No wheezing, rales, crackles, decreased breath sounds. Cardio: regular rate and rhythm, no murmur no chest wall tenderness. Neurologic: Grossly normal Skin: No rashes, ulcerations, or suspicious lesions Lymph Nodes: no lad Mental Status: alert, active Assessment/Plan Patient is agreeable to swab for COVID-19 only. No breathing treatment, chest imaging, or other swabs at this time. 33-year-old female presented convenient care, for viral URI with cough, bilateral conjunctivitis, started 6 days ago, patient did appear ill but not septic, no respiratory distress, no difficulty swallowing. Patient was given prescriptions for moxifloxacin eyedrops, Bromfed, and prednisone. Patient states she is not taking any potassium supplement at this time. Patient to follow-up with primary care provider. 1. Viral URI with cough (J06.9: Acute upper respiratory infection, unspecified) See above 2. Bilateral conjunctivitis (H10.9: Unspecified conjunctivitis) See above 3. BMI 45.0-49.9, adult (Z68.42: Body mass index [BMI] 45.0-49.9, adult) The standard range for ages 18 and older is >=18.5 and < 25 kg/m2. Your BMI today was above this range, this falls in the overweight to obese category and there are medical benefits to weight loss. We can offer counselling, referral, and/or medical support in addressing this problem. Your BMI and weight management will be followed at subsequent visits. 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 Normal [facility] Comment on above: Result Comment: Elec tronically Signed By: CHRISTOPHER MASTERS PA-C\.br\Date and Time Signed: 06/28/24 13:01 EDT Ambulatory Visit Summaryon 1 Ambulatory Visit Summary Ambulatory Visit Summary AZUL ONTIVEROS :1990 Visit Date:06/27/2024 Ambulatory Visit Instructions Your Diagnosis Viral URI with cough Bilateral conjunctivitis BMI 45.0-49.9, adult Your Care Team Attending Physician - CHRISTOPHER MASTERS PA-C Primary Care Physician - TEZ ANGEL MD This Is Your Medications List acetaminophen-oxycodone (Percocet 5 mg-325 mg oral tablet) buPROPion (buPROPion 150 mg ER Tab) buPROPion (buPROPion 300 mg/24 hours ER Tab) cholecalciferol (Vitamin D3 2000 intl units oral tablet) furosemide (Lasix 40 mg Tab) gabapentin (gabapentin 100 mg Cap) hydrOXYzine (hydrOXYzine hydrochloride 50 mg oral tablet) levothyroxine (Levoxyl 75 mcg (0.075 mg) oral tablet) levothyroxine (levothyroxine 100 mcg (0.1 mg) Tab) lorazepam (LORazepam 0.5 mg Tab) magnesium amino acids chelate (magnesium amino acids chelate 100 mg oral tablet) meclizine (meclizine 12.5 mg Tab) moxifloxacin ophthalmic (moxifloxacin 0.5% Opth [place]) ondansetron (Zofran ODT 4 mg Tab) pantoprazole (Protonix 40 mg Tab-DR) polyethylene glycol 3350 with electrolytes (NuLYTELY Quach oral powder for reconstitution) potassium chloride (potassium chloride 20 mEq ER Tab) sumatriptan (SUMAtriptan 25 mg Tab) topiramate (topiramate 50 mg Tab) Procedures Performed Hysterectomy (10/01/2023), Laparoscopic cholecystectomy using robotic assistance (08/06/2023), Colposcopy, History of tubal ligation, Laparoscopy, LEEP, Plantar fasciotomy. Discharge Vitals Temperature (Temporal Artery) 36 ?C Heart Rate (Peripheral) 111 Blood Pressure 120/80 Height 157 cm Height 62 in Weight 116 kg Weight 255.2 lb BMI 47.06 Medications What How Much When Why Instructions New moxifloxacin ophthalmic (moxifloxacin 0.5% Opth [place]) 1 Drops Ophthalmic 3 times a day Bilateral conjunctivitis Duration: 7 Days Pickup at [facility] Unchanged acetaminophen-oxycodone (Percocet 5 mg-325 mg oral [...] Every day as needed for Edema Unchanged gabapentin (gabapentin 100 mg Cap) 1 Capsules By Mouth Every day Unchanged hydrOXYzine (hydrOXYzine hydrochloride 50 mg oral tablet) 30 EA, 0 Refill(s), TAKE 1 TABLET BY MOUTH FOUR TIMES DAILY NEEDED Unchanged levothyroxine (levothyroxine 100 mcg (0.1 mg) Tab) 1 Tablets By Mouth Every day Unchanged levothyroxine (Levoxyl 75 mcg (0.075 mg) [...] TAKE 1 TABLET BY MOUTH TWICE DAILY Pharmacy Information [facility]: [address] [place], [place] [id number] [phone] Allergies Vicodin (Vomiting) iodine (Hives) steri strips (Itching, Rash) Problems Ongoing - Any problem that you are currently receiving treatment for. Anemia Anxiety Bilateral conjunctivitis BMI 50.0-59.9, adult BRBPR (bright red blood [...] thank you for choosing us for your c (more content not included)... Normal [facility] ABO/Rhon 10-25-2023 ABO/Rh Negative Invalid Interpretation Code [facility] Comment on above: Performed By: #### 1 [id number], 34061792, 75798939, 3882283 ####[facility] [address] [address] ABO/Rh History Checkon 10-25 ABO/Rh History Check Type verified by second s Normal [facility] Comment on above: Performed By: #### 1 6342869, 03045971, 42961576, 1619327 ####[facility] [address] [place] [address] ABO/Rh Retypeon 10-25-2023 ABO/Rh Retype Interp Negative Invalid Interpretation Code [facility] Comment on above: Performed By: #### 2 394121, 13668716, 13593758, 89005616, 9451766 ####[facility] [address] [place] [address] ABSCon 10-25-2023 ABSC Gel Interp Negative Normal [facility] Comment on above: Performed By: #### 1 4947209, 60365280, 14892621, 1505022 ####[facility] [address] [place] [address] BLOOD BANKOrdered By: Bridget Baron on 10-25-2023 ABO/Rh Interp Negative Invalid Interpretation Code [facility] BB Subsection ABSC Gel Interp Negative (10/25/23 2:57 PM) Normal [facility] BB Subsection ABO/Rh Retype Interp Negative Invalid Interpretation Code [facility] BB Subsection Blood Bank ID#on 10-25-2023 BBID# [id number] Invalid Interpretation Code [facility] Comment on above: Performed By: #### 1 3277719, 36185166, 86526775, 2353129 ####[facility] [address] [place] [address] CBC w/ Auto Diffon 4 Basophil Absolute 0.0 E9/L Normal 0.0-0.2 [facility] Comment on above: Performed By: #### 2 780312, 09623348, 52360968, 38245192, 5045043 #### [facility] [address] [place] [address] Basophils/100 WBC (Bld) 0.5 % Normal 0.0-2.0 [facility] Comment on above: Performed By: #### 2 552128, 53320540, 28031256, 47595696, 8969679 #### [facility] [address] [place] [address] Eos Absolute 0.1 E9/L Normal 0.0-0.5 [facility] Comment on above: Performed By: #### 2 004934, 27137974, 38969478, 03587834, 3743892 #### [facility] [address] [place] [address] Eosinophils/100 WBC (Bld) 1.6 % Normal 0.0-8.0 [facility] Comment on above: Performed By: #### 2 010380, 19047812, 46517485, 98025451, 5187152 #### [facility] [address] [place] [address] Erythrocyte distribution width (RBC) [Ratio] 13.1 % Normal 10.9-14.2 [facility] Comment on above: Performed By: #### 2 212591, 58616964, 39108468, 49002049, 1933434 #### [facility] [address] [place] [address] Hematocrit (Bld) [Volume fraction] 38.0 % Normal 34.0-46.0 [facility] Comment on above: Performed By: #### 2 796941, 04708199, 21687573, 18715732, 4805447 #### [facility] [address] [place] [address] Hemoglobin (Bld) [Mass/Vol] 12.9 g/dL Normal 12.0-16.0 [facility] Comment on above: Performed By: #### 2 533460, 13908463, 29678389, 47405605, 1423006 #### [facility] [address] [place] [address] Lymph Absolute 1.4 E9/L Normal 1.0-4.0 [facility] Comment on above: Performed By: #### 2 745871, 86277943, 82001817, 70144475, 1489178 #### [facility] [address] [place] [address] Lymphocytes/100 WBC (Bld) 28.4 % Normal 14.0-50.0 [facility] Comment on above: Performed By: #### 2 256825, 63064749, 18970626, 80084868, 6358010 #### [facility] [address] [place] [address] MCH (RBC) [Entitic mass] 31.7 pg Normal 27.0-34.0 [facility] Comment on above: Performed By: #### 2 320477, 15425418, 70182844, 53999017, 3035541 #### [facility] [address] [place] [address] MCHC (RBC) [Mass/Vol] 33.7 g/dL Normal 31.4-36.0 [facility] Comment on above: Performed By: #### 2 729678, 10278687, 82339887, 50135924, 8188453 #### [facility] [address] [place] [address] MCV (RBC) [Entitic vol] 94.0 fL Normal 80.0-100.0 [facility] Comment on above: Performed By: #### 2 406462, 23689313, 31057903, 98444370, 4803293 #### [facility] [address] [place] [address] Ziebach Absolute 0.4 E9/L Normal 0.2-1.0 [facility] Comment on above: Performed By: #### 2 331502, 72296780, 76864932, 11248473, 9839215 #### [facility] [address] [place] [address] Monocytes/100 WBC (Bld) 8.0 % Normal 4.0-14.0 [facility] Comment on above: Performed By: #### 2 540165, 76340884, 02978758, 23091268, 9659758 #### [facility] [address] [place] [address] Neutro Absolute 3.1 E9/L Normal 2.0-7.5 [facility] Comment on above: Performed By: #### 2 899894, 81879349, 70238346, 87941984, 7764080 #### [facility] [address] [place] [address] Neutro Auto 61.5 % Normal 36.0-75.0 [facility] Comment on above: Performed By: #### 2 033550, 63662831, 21669907, 70883091, 4684451 #### [facility] [address] [place] [address] Platelet 221.0 E9/L Normal 150.0-500. 0 [facility] Comment on above: Performed By: #### 2 645907, 51851371, 71192830, 08030004, 3807411 #### [facility] [address] [place] [address] Platelet mean volume (Bld) [Entitic vol] 8.9 fL Normal 6.4-10.8 [facility] Comment on above: Performed By: #### 2 972778, 99526166, 06672733, 67647408, 3570861 #### [facility] [address] [place] [address] RBC 4.1 E12/L Low 4.3-5.9 [facility] Comment on above: Performed By: #### 2 709373, 54770729, 75898206, 96483406, 2801430 #### [facility] [address] [place] [address] WBC 5.0 E9/L Normal 4.0-11.0 [facility] Comment on above: Performed By: #### 2 758177, 24873069, 62065013, 46763415, 9641412 #### [facility] [address] [place] [address] CHEMISTRYOrdered By: SYSTEM SYSTEM on 10-25-2023 Albumin [...] 10-25-2023 Albumin [Mass/Vol] 4.1 g/dL Normal 3.3-5.0 [facility] Comment on above: Performed By: #### 2 605684, 87071809, 11086373, 05145427, 3021276 #### [facility] [address] [place] [address] Albumin/Globulin [Mass ratio] 1.5 {ratio} Normal 1.1-2.2 [facility] Comment on above: Performed By: #### 2 222681, 26703835, 58060983, 33459460, 2943730 #### [facility] [address] [place] [address] Alk Phos 96 Int._Unit/L Normal 21-98 [facility] Comment on above: Performed By: #### 2 890721, 60972063, 43944816, 81007987, 2458646 #### [facility] [address] [place] [address] ALT 12 Int._Unit/L Normal 6-46 [facility] Comment on above: Performed By: #### 2 337235, 88831530, 29232492, 78176889, 4640250 #### [facility] [address] [place] [address] Anion gap [Moles/Vol] 10 mmol/L Normal 6-16 [facility] Comment on above: Performed By: #### 2 649987, 48021224, 26788731, 18064510, 1237481 #### [facility] [address] [place] [address] AST 13 Int._Unit/L Normal 5-43 [facility] Comment on above: Performed By: #### 2 063923, 66935118, 41635234, 36681659, 0136658 #### [facility] [address] [place] [address] Bili Total 0.3 mg/dL Normal 0.0-1.1 [facility] Comment on above: Performed By: #### 2 053968, 16024187, 67551694, 34057533, 9101633 #### [facility] [address] [place] [address] BUN/Creat Ratio 12 No Units Normal 10-20 [facility] Comment on above: Performed By: #### 2 643117, 87754318, 02256234, 53483494, 4608981 #### [facility] [address] [place] [address] Calcium [Mass/Vol] 9.3 mg/dL Normal 8.9-11.1 [facility] Comment on above: Performed By: #### 2 538695, 66954522, 03644510, 54698719, 8642244 #### [facility] [address] [place] [address] Chloride [Moles/Vol] 108 mmol/L Normal 101-111 [facility] Comment on above: Performed By: #### 2 738656, 85633032, 22720361, 92365932, 4473791 #### [facility] [address] [place] [address] CO2 [Moles/Vol] 23 mmol/L Normal 21-31 [facility] Comment on above: Performed By: #### 2 690428, 80139719, 44068978, 73248058, 5974609 #### [facility] [address] [place] [address] Creatinine [Mass/Vol] 1.1 mg/dL Normal 0.5-1.3 [facility] Comment on above: Performed By: #### 2 569939, 86034348, 09184799, 27746781, 0449038 #### [facility] [address] [place] [address] Globulin (S) [Mass/Vol] 2.8 g/dL Normal 1.4-4.0 [facility] Comment on above: Performed By: #### 2 939058, 45550568, 17310703, 67033801, 9938166 #### [facility] [address] [place] [address] Glucose [Mass/Vol] 106 mg/dL Normal 55-199 [facility] Comment on above: Performed By: #### 2 148929, 89361367, 80364720, 60939343, 1140200 #### [facility] [address] [place] [address] Potassium [Moles/Vol] 3.8 mmol/L Normal 3.5-5.3 [facility] Comment on above: Performed By: #### 2 144295, 45627248, 97580750, 95579922, 7222044 #### [facility] [address] [place] [address] Protein [Mass/Vol] 6.9 g/dL Normal 6.0-7.8 [facility] Comment on above: Performed By: #### 2 041298, 64450300, 40285198, 60890433, 5220906 #### [facility] [address] [place] [address] Sodium [Moles/Vol] 137 mmol/L Normal 135-145 [facility] Comment on above: Performed By: #### 2 930380, 77875623, 90406283, 55058105, 0802651 #### [facility] [address] [place] [address] Urea nitrogen [Mass/Vol] 13 mg/dL Normal 5-21 [facility] Comment on above: Performed By: #### 2 359403, 28267605, 05766940, 69737740, 0518291 #### [facility] [address] [place] [address] COAGULATIONOrdered By: Pool Sykes on 10-25-2023 aPTT Coag (PPP) [Time] 31.3 s Normal 25.1 - 36.5 second(s) [facility] Auto Coag Comment on above: Interpretive Data: P kacimeter 15 days - 4 weeks 1 - [...] the same coagulation reagent and instrumentation as [facility]. Currently there are no coagulation studies available worldwide for children to 14 days, and no normal ranges. Heparin therapeutic range (represented by Anti-Factor Xa activity of 0.2 - 0.4 U/mL) corresponds to PTT of 56.6 - 109.0 sec. INR Coag (PPP) [Relative time] 1.11 {INR} Invalid Interpretation Code [facility] Auto Coag Comment on above: Interpretive Data: I NR results are specifically intended to assess patients stabilized on long-term Anticoagulation therapy suggested INR s Less Intensive Anticoagulation 2.0 3.0 Conventional Range 3.0 4.5 PT Coag (PPP) [Time] 12.4 s Normal 9.4 - 1 2.5 second(s) [facility] Auto Coag Comment on above: Interpretive Data: [...] the same coagulation reagent and instrumentation as [facility]. Currently there are no coagulation studies available worldwide for children to 14 days, and no normal ranges. Consent for Treatmenton 10-09 Consent for Treatment [id number] Normal [facility] Discharge Instructionson Discharge Instructions [id number] Normal [facility] ED Clinical Summaryon 2023 ED Clinical Summary (Inserted Image. Zenaida ble to display) [place] [id number] ED Clinical Summary Person Information Name: AZUL ONTIVEROS [facility] Age: 33 Years : 1990 Sex: Female Language: Tamazight PCP: TEZ ANGEL MD Marital Status: Single [...] 10/25/2023 16:52:18 10/25/2023 16:52:18 10/25/2023 16:52:18 ADDRESS: [address] [facility] [id number] PHYS DOC NOTES: MEDICAL INFORMATION: Prescriptions Given: [...] Follow up: With: Address: When: Chay CASTRO [facility], [address] [facility] [place] [address] Business (1) In 3 days 10/28/2023 With: Address: When: TEZ ANGEL [address] [place] [id number] Business (1) In 3 days DIAGNOSIS: Headache; Vaginal bleeding Normal [facility] ED Note-Physicianon 10-25-19 ED Note-Physician Basic [...] of symptoms. 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 Normal [facility] Comment on above: Result Comment: Elec tronically Signed By: Alexx Pena DO\melissa\Date and Time Signed: 10/25/23 16:40 [facility] ED Patient Education Noteon 10-25-2023 ED Patient Education Note Normal [facility] ED Patient Summaryon 024 ED Patient Summary (Inserted Image. Zenaida ble to display) [address] [address] Patient Discharge Instructions Person Information Name: AZUL ONTIVEROS Age: 33 Years Arrival Date: 10/25/2023 14:15:46 Discharge Diagnosis: Headache; Vaginal bleeding Primary Care Physician: TEZ ANGEL MD Provider Information Primary Provider: Alexx Pena DO [employer] Manager:None The exam and treatment you received in the Emergency Department were for an urgent problem and are not intended as complete care. It is important that you follow up with a doctor, nurse practitioner, or physician?s management assistant for ongoing care. If your symptoms become worse or you do not improve as expected and you are unable to reach your usual health care provider, you should return to the Emergency Department. We are available 24 hours a day. AZUL ONTIVEROS has been given the following list of patient education materials, prescriptions and follow-up instructions: Follow-up Instructions: With: Address: When: Chay [facility], [address] [place] [address] [address] [place] [address] Business (1) In 3 days 10/28/2023 With: Address: When: TEZ ANGEL [address] [place], [place] [id number] Business (1) In 3 days In the event that this physician does not participate in your insurance network, please consult with your insurance company to find a nearby participating provider. Patient Education Materials: A MESSAGE TO ALL PATIENTS REGARDING OPIOIDS PRESCRIPTION OPIOIDS: WHAT YOU NEED TO KNOW Prescription opioids can be used to help relieve ppimcoto-wc-uwcxpc pain and are often prescribed following a [...] tell y (more content not included)... Normal [facility] HEMATOLOGYOrdered By: Bridget Baron on 10-25-2023 [...] Normal 80.0 - 100.0 fL Remisol Heme Ziebach Absolute 0.4 E9/L Normal 0.2 - 1.0 [...] Coag (PPP) [Time] 31.3 second(s) Normal 25.1-36.5 [facility] Comment on above: Result Comment: Para [...] the same coagulation reagent and instrumentation as [facility]. Currently there are no coagulation studies available worldwide for children to 14 days, and no normal ranges. Heparin therapeutic range (represented by Anti-Factor Xa activity of 0.2 - 0.4 U/mL) corresponds to PTT of 56.6 - 109.0 sec. Performed By: #### 2 558778, 37879676, 34901456, 42941820, 0617241 #### [facility] [address] [place] [address] INR Coag (PPP) [Relative time] 1.11 {INR} Invalid Interpretation Code [facility] Comment on above: Result Comment: INR results are specifically intended to assess patients stabilized on long-term Anticoagulation therapy suggested INR?s ?Less Intensive Anticoagulation? 2.0 ? 3.0 Conventional Range 3.0 ? 4.5 Performed By: #### 2 994986, 51614238, 40501220, 45366820, 9810780 #### [facility] [address] [place] [address] PT Coag (PPP) [Time] 12.4 second(s) Normal 9.4-12.5 [facility] Comment on above: Result Comment: 15 [...] the same coagulation reagent and instrumentation as [facility]. Currently there are no coagulation studies available worldwide for children to 14 days, and no normal ranges. Performed By: #### 2 697494, 43338464, 24451510, 55441293, 6936391 #### [facility] [address] [place] [address] eGFRon 10-25-2023 eGFR 68 mL/min/1.73 m2 Normal >=59 [facility] Comment on above: Order Comment: Order added by Discern Expert. Performed By: #### 2 479044, 84356308, 28110169, 93952012, 3452854 ####[facility] [address] [place] [address] Heart and Vascular Office/Cl inic Noteon 10-21-2023 [...] with voice recognition artificial intelligence software, specifically Kingnet, ExecMobile and or Synapse. Substitutions may have occurred due to the inherent limitations of voice recognition and artificial intelligence software. ATTESTATION: Documentation services were performed after the patient or guardian consented to allow [employer] to record this visit. JOANN software licensing specialist and provider reviewed before signing. JOANN: [...] 0.5 mg Tab, (more content not included)... Normal [facility] Comment on above: Result Comment: Elec tronically Signed By: Candy SOTELO, Glenn Holbrook\.br\Date and Time Signed: 10/21/23 09:36 EST\.br\Electronically Co-Signed By: Talya Camargo\.min\Date and Time Co-Signed: 10/20/23 17:42 EST Consent for Treatmenton 10-09 Consent for Treatment [id number] Normal [facility] Physician Orderon 10-20-2023 Physician Order [id number]#1.00TIFF Normal [facility] Stress EKG Tracingson 2023 Stress EKG Tracings [id number]#1.00TIFF Normal [facility] David 10-01-2023 L Specimen: [id number] Received: 10/02/23 Status: KARI Monroy Num: [id number] Spec Type: Surgical Subm Dr: Chay Castro Tissues: A Uterus w/ or w/o tubes ovaries except neoplastic or prolap (UTERUS) Procedures: HE/12, Gross/Micro L5 Age/ Patient Sex Location Account Attending Physician Azul Huertas 33/F LABELL [id number] Chay Castro SPEC NUM: [id number] RECD: 10/02/23 STATUS: KARI MONROY NUM: [id number] GAURI: 10/01/[address]: Chay Castro ENTERED: 10/02/[address] [facility] [address]: Tri,Lab SPEC TYPE: Surgical DEPT: SHAQUILLE SHIELDS ORDERED: HE/12, Gross/Micro L5 ORDERED: HE, Gross/Micro L5 Pathological Diagnosis Uterus and Cervix, [...] prominent trabeculation and no well-circumscribed nodules identified. Shipping And Receiving Coordinator sections are submitted in 4 cassettes as follows: A1 - Posterior cul-de-sac serosa with dull red-brown serosal focus A2 - Anterior and posterior cervix A3 - Anterior endomyometrium A4 - Posterior endomyometrium Specimen: [id number] Received: 10/02/23 Status: KARI Vincentlance Num: [id number] Spec Type: Surgical Subm Dr: Chay Castro Tissues: A Uterus w/ or w/o tubes ovaries except neoplastic or prolap (UTERUS) Procedures: , Gross/Micro L5 Patient: Azul Huertas [id number] (Continued) Specimen: [id number] Received: 10/02/23 (Continued) Signed (signature on file) Alexi Mclaughlin MD 10/04/23 1139 Specimen: [id number] Received: 10/02/23 Status: JOSSELINEMelissa Monroy Num: [id number] Spec Type: Surgical Subm Dr: Chay Castro Tissues: A Uterus w/ or w/o tubes ovaries except neoplastic or prolap (UTERUS) Procedures: , Gross/Micro L5 Patient: Azul Huertas [id number] (Continued) Specimen: [id number] Received: 10/02/23 (Continued) CPT Codes 34140 Specimen: [id number] Received: 10/02/23-1321 Status: KARI Monroy Num: [id number] Spec Type: Surgical Subm Dr: Chay Castro Tissues: A Uterus w/ or w/o tubes ovaries except neoplastic or prolap (UTERUS) Procedures: , Gross/Micro L5 Patient: Azul Huertas [id number] (Continued) Signed (signature on file) Alexi Mclaughlin MD 10/04/23 1139 [facility] Echocardiographyon Echocardiography [id number]#1.00TIFF [facility] Consent for Treatmenton 09-08 Consent for Treatment [id number]#1.00TIFF [facility] Insurance Correspondenceon 10-23-2022 Insurance Correspondence [id number]#1.00TIFF [facility] Auth for Release of Medical Recordson 08-20-2023 Auth for Release of Medical Records [id number]#1.00TIFF [facility] Ambulatory Visit Summaryon 1 10-16-2022 Ambulatory Visit Summary AZUL ONTIVEROS :1990 Visit Date:08/15/2023 Ambulatory Visit Instructions Your Care Team Attending Physician - Alosno SOTELO, Alexx Dowling Primary Care Physician - [...] for choosing us for your care. Normal [facility] General Surgery Office/Clini c Noteon [...] with voice recognition artificial intelligence software, specifically Kingnet, ExecMobile and or Synapse. Substitutions may have occurred voice recognition and artificial intelligence software. Documentation services were performed after patient or guardian consented to allow Health As We [facility] to record this visit. JOANN software licensing specialist and provider reviewed before signing. JOANN: [...] Brother. Hypertensio (more content not included)... Normal [facility] Comment on above: Result Comment: Elec [...] 3 days after surgery She finished the Stokes yesterday and states the pain is unbearable She states she's added Motrin 800 mg every 12 hours and Tylenol 400 mg every 6 hours History of Present Illness Azul Prince Allen is a 33-year-old female status post [...] with voice recognition artificial intelligence software, specifically Kingnet, ExecMobile and or Synapse. Substitutions may have occurred voice recognition and artificial intelligence software. Documentation services were performed after patient or guardian consented to allow Health As We Age to record this visit. JOANN software licensing specialist and provider reviewed before signing. JOANN: [...] Instructions Percoce (more content not included)... Normal [facility] Comment on above: Result Comment: [...] partial hysterectomy in 09/2023 as recommended by [facility]. The decision to assess her [...] with voice recognition artificial intelligence software, specifically Kingnet, ExecMobile and or Synapse. Substitutions may have occurred due to the inherent limitations of voice recognition and artificial intelligence software. Documentation services were performed after patient or guardian consented to allow Health As We Age to record this visit. JOANN software licensing specialist and provider reviewed before signing. JOANN: [...] Oral, Da (more content not included)... Normal [facility] Comment on above: Result Comment: Elec tronically Signed By: Candy SOTELO, Glenn Holbrook\.br\Date and Time Signed: 08/12/23 13:43 EST\.br\Electronically Co-Signed By: Scott Frederick\.br\Date and Time Co-Signed: 08/11/23 17:25 EST Consent for Treatmenton Consent for Treatment [id number]#1.00TIFF [facility] IntraOperative Documentson 1 10-12-2022 IntraOperative Documents [id number]#1.00TIFF [facility] Physician Orderon 08-11-2023 Physician Order [id number]#1.00TIFF [facility] Consent for Anesthesiaon Consent for Anesthesia [id number]#1.00TIFF [facility] Discharge Instructionson Discharge Instructions [id number]#1.00TIFF [facility] IntraOperative Documentson 1 10-07-2022 IntraOperative Documents [id number]#1.00TIFF [facility] Main OR Intraoperative Recor don 08-07-2023 Main OR Intraoperative Record IntraOp Document Type FT Summary Primary Physician: Alexx Gupta MD Finalized Date/Time: 08/07/23 13:39:28 Pt. Name: PRINCE ALLENKELLYAZULJudd Pratt/Sex: 1990 Female Med Rec #: [id number] Physician: Alexx Gupta MD Financial #: [id number] Pt. 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 Last Modified By: Julianne Clark CST, RN, Natanael Falk RN 08/07/23 13:36:33 08/06/23 09:24:08 08/06/23 09:24:08 Entry 4 Entry 5 Case Attendee Emmanuelle Wilks James W Role Performed Scrub - Primary HISTOLOGIC TECHNICIAN/SA Time In 08/06/23 07:37:00 08/06/23 07:37:00 Time Out 08/06/23 09:24:00 08/06/23 09:24:00 Procedure CHOLECYSTECOMY ROBOT CHOLECYSTECOMY ROBOT ASSISTED(.) ASSISTED(.) Comments Last Modified By: Natanael Graham RN, RN, Andrea L 08/06/23 09:24:08 08/06/23 09:24:08 Perioperative Protocols FT [...] Sanderson CRNA, Given Participants Alexx Gupta MD, Krupp RN, Efe Bob Madison A, Boyer, James [...] and tissue Entry 1 Skin Integrity Intact, [place], Warm, and Skin Abnormality No Dry Outcomes [...] Position Supine (more content not included)... Normal [facility] Pre-Op Checkliston 3 Pre-Op Checklist [id number]#1.00TIFF Normal [facility] CHEMISTRYOrdered By: Lab ROP User on 08-06-2023 Glucose [Mass/Vol] 92 mg/dL Normal 55 - 99 mg/dL [facility] POC Subsection Comment on above: Result Comment: Lisa [place] Meter POC Username COURTNEY DONOVAN Invalid Interpretation Code [facility] POC Subsection Sodium [Moles/Vol] 213931469989 mmol/L Invalid Interpretation Code [facility] POC Subsection Sodium [Moles/Vol] 391667934 mmol/L Invalid Interpretation Code [facility] POC Subsection Capillary Glucose POCon 07-10 Glucose [Mass/Vol] 92 mg/dL Normal 55-99 [facility] Comment on above: Result Comment: Lisa [place] Meter Performed By: #### 2 [id number] #### [facility] Laboratory [address] [place] [address] Consent for Treatmenton 07-10 Consent for Treatment [id number]#1.00TIFF Normal [facility] Discharge Instructionson Discharge Instructions AZUL ONTIVEROS [...] AM EST With: Alexx Gupta MD Where: [facility] General Surgery [facility] Comment on above: Result Comment: Elec tronically Signed By: Thelma SETHI, Courtney Rodriguez\.br\Date and Time Signed: 08/06/23 09:56 EST Discharge Instructions PRINCE AZUL ALLEN :1990 Visit Date:08/06/2023 Inpatient Discharge Instructions Your [...] AM EST With: Alexx Gupta MD Where: [facility] General Surgery [facility] Comment on above: Result Comment: Elec [...] AM EST With: Alexx Gupta MD Where: [facility] General Surgery [facility] Comment on above: Result Comment: Elec tronically Signed By: Thelma SETHI, Courtney Rodriguez\.min\Date and Time Signed: 08/15/23 06:03 EST Inpatient Patient Summaryon 08-06-2023 Inpatient Patient Summary [address] [address] [facility] Clinical Discharge Instructions PERSON INFORMATION Name: AZUL ONTIVEROS PHYSICIANS Admitting Physician: Alexx Gupta MD Attending Physician: Alexx Gupta MD PCP: TEZ ANGEL MD Discharge Diagnosis: Comment: PATIENT EDUCATION INFORMATION Instructions: Minimally Invasive Cholecystectomy, Care After Medication Leaflets: Follow up: With: Address: When: Alexx Gupta [address] [place] [address], [place] [address], [place] [phone] [facility] (1) Comments: Appointment has already been scheduled Type Location Start [facility] Cardiology New Patient (FT) FT.Cardiology Clinic 08/11/2023 1:30 PM 08/11/2023 1:45 PM Confirmed Post Op 15 [facility] 08/15/2023 9:20 AM 08/15/2023 9:40 AM Confirmed MEDICATION LIST New Medications [facility], [address] [id number], [phone] acetaminophen-oxycodone (Percocet 5 mg-325 mg oral tablet) [...] BY MOUTH TWICE DAILY., Responsible Provider: Tez Angelony Comment: Eli [facility] Main OR PACU I Recordon 07-10 Main OR PACU I Record PACU Phase I Document Type FT Summary Primary Physician: Alexx Gupta MD Finalized Date/Time: 08/06/23 10:10:38 Pt. Name: AZUL ONTIVEROS/Sex: 1990 Female Med Rec #: [id number] Physician: Alexx Gupta MD Financial #: [id number] Pt. Type: A Room/Bed: Admit/Disch: 08/06/23 05:51:08 - Institution: Case Times [...] Signed By: Bia Perry RN 08/06/23 10:10 [facility] Main OR PACU II Recordon Main OR PACU II Record PACU Phase II Document Type FT Summary Primary Physician: Alexx Gupta MD Finalized Date/Time: 08/06/23 11:21:37 Pt. Name: JASON ONTIVEROSJudd Nunez./Sex: 1990 Female Med Rec #: [id number] Physician: Alexx Gupta MD Financial #: [id number] Pt. Type: A Room/Bed: [place] [address] Admit/Disch: 08/06/23 05:51:08 - Institution: Case Times [...] By: Adeline Elizabeth RN 08/06/23 11:21 Normal [facility] Main OR Preoperative Recordo n 08-06-2023 Main OR Preoperative Record PreOp Document Type FT Summary Primary Physician: Alexx Gupta MD Finalized Date/Time: 08/06/23 08:10:54 Pt. Name: PRINCE ALLENAZUL D.O.B./Sex: 1990 Female Med Rec #: [id number] Physician: Alexx Gupta MD Financial #: [id number] Pt. Type: A Room[facility]Bed: [facility]06 Admit/Disch: 08/06/23 05:51:08 - Institution: Case Times [...] By: Natanael Graham RN 08/06/23 08:10 Normal [facility] Monitor Recordon 08-06-2023 Monitor Record [id number]#1.00TIFF Normal [facility] Operative Reporton 3 Operative Report Indication for Surge ry 33-year-old female with symptomatic cholelithiasis here for robotic cholecystectomy Preoperative Diagnosis CHOLELITHIASIS Postoperative Diagnosis CHOLELITHIASIS Operation CHOLECYSTECOMY ROBOT ASSISTED, ROBOT ASSISTED LAPAROSCOPIC CHOLECYSTECOMY, . Surgeon(s) Alexx Gupta MD (Surgeon - Primary) Wood Pattern Maker Michael Anesthesia General Mauricio Chang Jr., DO (Director Oncology) Felicitas Sanderson CRNA (Other) Estimated Blood Loss [...] x2 Patient tolerated the procedure: yes Normal [facility] Comment on above: Result Comment: Elec tronically Signed By: Alonso SOTELO, Alexx Dowling\.br\Date and Time Signed: 08/06/23 09:40 EST Outpatient Surgery Discharge Instructionon 08-06-2023 Outpatient Surgery Discharge Instruction [place] [id number] Patient Discharge Instructions PERSON INFORMATION Name: AZUL [...] Date Follow up: With: Address: When: Alexx Manciagracedeuce [address] [place] [address], [place] [address], [address] [phone] Business (1) Comments: Appointment has already been scheduled Type Location Start [facility] Cardiology New Patient (FT) FT.Cardiology Clinic 08/11/2023 1:30 PM 08/11/2023 1:45 PM Confirmed Post Op 15 [facility] 08/15/2023 9:20 AM 08/15/2023 9:40 AM Confirmed Pharmacy Information: You may receive a survey from [employer] asking you to rate your care experience. Your feedback is important and will help us understand what we do well and how we can improve the quality of care we provide to you, your loved ones and our community. It?s an honor to serve you. Thank you for choosing [facility] HERE ARE THE MEDICATION CHANGES THAT OCCURRED DURING YOUR HOSPITAL STAY New Medications [facility], [address] [place] [id number], [phone] acetaminophen-oxycodone (Percocet 5 mg-325 mg oral tablet) [...] to care (more content not included)... Normal [facility] Patient Education - Texton 1 10-06-2022 [...] these instructions at home: Medicines ? Take skzt-llh-jlpnppi and prescription medicines only as told by [...] keep your urine pale yellow. ? Take epro-lqg-cedemdx or prescription medicines. ? Eat foods that [...] and water are not available, use hand ditcher operator. ? Change your dressing as told by [...] if yo (more content not included)... Normal [facility] Progress Note-Physicianon Progress Note-Physician Patient: AZUL ONTIVEROS Age: 33 years Sex: Female : 1990 Associated Diagnoses: None Author: Mauricio Chang Jr., DO Postoperative Information Postoperative disposition: Postoperative disposition: Home. Optimetrix number: Optimetrix number [id number]. Anesthetic utilized: General. Physical Examination Vital Signs [...] Surgery Unit, and To home ). Normal [facility] Comment on above: Result Comment: Elec [...] 1 EA, Refill(s) 0, Prior to colonoscopy., [facility], 157.5, cm, 07/08/23 14:03:00 EDT, Height/Length Dosing, 129.5, kg, 07/08/23 14:03:00 EDT, Weight Dosing Protonix 40 mg Tab-DR: 40 mg = 1 tab(s), Oral, Daily, # 90 tab(s), Refills(s) 1, Pharmacy: [facility], 152.4, cm, 08/10/21 14:17:00 EST, Height/Length [...] list: All Problems Anemia / SNOMED CT 236283106 / Confirmed Anxiety / SNOMED CT 31586758 / Confirme (more content not included)... Normal [facility] Comment on above: Result Comment: Elec tronically Signed By: Mauricio Chang Jr., DO.min\Date and Time Signed: 08/06/23 07:29 EST Consent for Procedure/Surger yon 07-28-2023 Consent for Procedure/Surgery [id number]#1.00TIFF Normal [facility] Auto Diffon 07-25-2023 Basophils/100 WBC (Bld) 0.4 % Normal 0.0-2.0 [facility] Comment on above: Order Comment: Order Added by Discern Expert. Performed By: #### 2 [id number], [id number] ####[facility] [address] [place] [address] Basophils/Leukocytes Auto (Bld) [Pure # fraction] 0.0 E9/L Normal 0.0-0.2 [facility] Comment on above: Order Comment: Order Added by Discern Expert. Performed By: #### 2 802302, [id number] ####[address] [address] Eosinophils/100 WBC (Bld) 0.9 % Normal 0.0-8.0 [facility] Comment on above: Order Comment: Order Added by Discern Expert. Performed By: #### 2 953705, [id number] ####[address] [address] Eosinophils/Leukocyt es Auto (Bld) [Pure # fraction] 0.0 E9/L Normal 0.0-0.5 [facility] Comment on above: Order Comment: Order Added by Discern Expert. Performed By: #### 2 570023, [id number] ####[address] [address] Lymphocytes/100 WBC (Bld) 29.0 % Normal 14.0-50.0 [facility] Comment on above: Order Comment: Order Added by Discern Expert. Performed By: #### 2 216167, [id number] ####[address] [address] Lymphocytes/Leukocyt es Auto (Bld) [Pure # fraction] 1.5 E9/L Normal 1.0-4.0 [facility] Comment on above: Order Comment: Order Added by Discern Expert. Performed By: #### 2 401088, [id number] ####[address] [address] Monocytes/100 WBC (Bld) 8.4 % Normal 4.0-14.0 [facility] Comment on above: Order Comment: Order Added by Discern Expert. Performed By: #### 2 677933, [id number] ####[address] [address] Monocytes/Leukocytes Auto (Bld) [Pure # fraction] 0.4 E9/L Normal 0.2-1.0 [facility] Comment on above: Order Comment: Order Added by Discern Expert. Performed By: #### 2 692745, [id number] ####[address] [address] Neutrophils/100 WBC (Bld) 61.3 % Normal 36.0-75.0 [facility] Comment on above: Order Comment: Order Added by Discern Expert. Performed By: #### 2 159003, [id number] ####[address] [address] Neutrophils/Leukocyt es Auto (Bld) [Pure # fraction] 3.3 E9/L Normal 2.0-7.5 [facility] Comment on above: Order Comment: Order Added by Kyle Expert. Performed By: #### 2 687302, [id number] ####[address] [address] CBC w/ Auto Diffon 3 Erythrocyte distribution width (RBC) [Ratio] 12.9 % Normal 10.9-14.2 [facility] Comment on above: Performed By: #### 2 658835, [id number] ####[address] [address] Hematocrit (Bld) [Volume fraction] 36.5 % Normal 34.0-46.0 [facility] Comment on above: Performed By: #### 2 256079, 2606876 ####[address] [place] [address] Hemoglobin (Bld) [Mass/Vol] 12.1 g/dL Normal 12.0-16.0 [facility] Comment on above: Performed By: #### 2 778691, 1500074 ####[address] [address] MCH (RBC) [Entitic mass] 31.1 pg Normal 27.0-34.0 [facility] Comment on above: Performed By: #### 2 284617, 3785543 ####[address] [address] MCHC (RBC) [Mass/Vol] 33.3 g/dL Normal 31.4-36.0 [facility] Comment on above: Performed By: #### 2 280252, 9919971 ####[address] [address] MCV (RBC) [Entitic vol] 93.3 fL Normal 80.0-100.0 [facility] Comment on above: Performed By: #### 2 185504, 1438869 ####[address] [address] Platelet mean volume (Bld) [Entitic vol] 8.6 fL Normal 6.4-10.8 [facility] Comment on above: Performed By: #### 2 682256, 6197441 ####[address] [address] Platelets (Bld) [#/Vol] 227.0 E9/L Normal 150.0-500. 0 [facility] Comment on above: Performed By: #### 2 207348, 4693951 ####[address] [address] RBC (Bld) [#/Vol] 3.9 E12/L Low 4.3-5.9 [facility] Comment on above: Performed By: #### 2 360323, 7980801 ####[address] [address] WBC corrected for nucl RBC Auto (Bld) [#/Vol] 5.3 E9/L Normal 4.0-11.0 [facility] Comment on above: Performed By: #### 2 119733, 3441530 ####[facility] [address] [place] [address] CT Maxillofacial w/o Contras ton 07-25-2023 CT [...] Latasha Arciniega MD Transcribed by: KARL Technologist: Normal [facility] Consent for Treatmenton 07-09 Consent for Treatment [id number]#1.00TIFF Normal [facility] HEMATOLOGYOrdered By: SYSTEM SYSTEM on 07-25-2023 Basophils/100 WBC (Bld) 0.4 % Normal 0.0 - 2.0 % [facility] HemeAutoSS Basophils/Leukocytes Auto (Bld) [Pure # fraction] [...] 227.0 E9/L Normal 150.0 - 500.0 E9/L [facility] HemeAutoSS RBC (Bld) [#/Vol] 3.9 E12/L Low 4.3 - 5.9 E12/L [facility] HemeAutoSS WBC corrected for nucl RBC Auto (Bld) [#/Vol] 5.3 E9/L Normal 4.0 - 11.0 E9/L [facility] HemeAutoSS Consent for Treatmenton 07-09 Consent for Treatment [id number]#1.00TIFF Normal [facility] Consent for Procedure/Surger yon 07-23-2023 Consent for Procedure/Surgery [id number]#1.00TIFF Normal [facility] Insurance Correspondenceon 09-21-2022 Insurance Correspondence [id number]#1.00TIFF Normal [facility] Ambulatory Visit Summaryon 09-20-2022 Ambulatory Visit Summary PRINCE OWENSKrystleJASON GONZALEZA Jennifer :1990 Visit Date:07/21/2023 Ambulatory Visit Instructions Your [...] EST With: Alonso SOTELO, Alexx Dowling Where: [facility] General Surgery [facility] General Surgery Office/Clini c Noteon 07-21-2023 General Surgery Office/Clinic Note Chief Complaint RUQ pain 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 female here [...] laparoscopic surgeries History of Present Illness Azul Llanos Rosydeja is a 32-year-old female with a history [...] with voice recognition artificial intelligence software, specifically Kingnet, ExecMobile and or Synapse. Substitutions may have occurred voice recognition and artificial intelligence software. Documentation services were performed after patient or guardian consented to allow [employer] We [facility] to record this visit. JOANN software licensing specialist and provider reviewed before signing. JOANN: [...] unknown Tobacco (more content not included)... Normal [facility] Comment on above: Result Comment: Elec [...] food choices, such as grocery stores and [employer] markets. What are the signs or symptoms? [...] have to (more content not included)... Normal [facility] Insurance Correspondenceon 1 09-15-2022 Insurance Correspondence [id number]#1.00TIFF [facility] Physician Orderon 07-16-2023 Physician Order [id number]#1.00TIFF [facility] US Gallbladderon 07-15-2023 US Gallbladder [...] Fitch M.D. Transcribed by: KARL Technologist: SERAFIN [facility] Consent for Treatmenton Consent for Treatment [id number]#1.00TIFF [facility] Ambulatory Visit Summaryon 1 Ambulatory Visit Summary AZUL ONTIVEROS Jennifer :1990 Visit Date:07/08/2023 Ambulatory Visit Instructions Your [...] Abdominal pain, No, Epigastric abdominal pain Normal [facility] Gastroenterology Office/Clin ic Noteon 07-08-2023 Gastroenterology Office/Clinic Note Chief Complaint Upper abdominal pain and pain when breathing. HPI Staff This is a 32 year old female who presents today for a follow up from [facility] on 06/23/23, for complaints of GERD/ gastritis. Dr Angel referred patient to for gallbladder. History of Present Illness Patient is a 32-year-old female who presents for follow-up from ED visit 06/23/2023 at [facility]. Presents with female visitor today. Review [...] She explains she used to drink alcohol [id number]: 3 cans of beer and 1/2 gallon [...] Ordered EGD. Ordered: EGD Endoscopy (Hospital Procedure) [facility] Internal Ambulatory Referral US Gallbladder 2. Nausea [...] Ordered EGD. Ordered: EGD Endoscopy (Hospital Procedure) [facility] Internal Ambulatory Referral US Gallbladder 3. Irregular [...] in c (more content not included)... Normal [facility] Comment on above: Result Comment: Elec [...] added (diluted fruit juice). ? Eat bland, jshc-ja-mqbtnf foods in small amounts as you are able. These foods include bananas, applesauce, rice, lean meats, toast, and crackers. ? Avoid drinking fluids that contain a lot of sugar or caffeine, such as energy drinks, sports drinks, and soda. ? Avoid alcohol. ? Avoid spicy or fatty foods. General instructions ? Take gzqp-gbn-ltntlza and prescription medicines only as told by [...] and water are not available, use hand ditcher operator. ? Make sure that everyone in your [...] recommendations for eating and drinking and take xzua-ekc-zmobidt and prescription medicines only as told by [...] provider. Document Revised: 03/01/2022 Document Reviewed: 03/01/2022 [employer] Patient Education ? 2022 [employer]. Normal [facility] Reminderson 07-08-2023 Reminders - From: Zoya Deal To: [facility] - Reminders/Recalls; Sent: 07/08/2023 14:50:43 EDT Show up: 07/08/2023 14:51:00 EDT Subject: Ambulatory Reminder [place] Reminder/Recall call pt and schedule EGD and Colon with Dr. Patino once Medicaid [place] has been approved. Normal [facility] CHEMISTRYOrdered By: SYSTEM SYSTEM on 06-23-2023 Albumin [Mass/Vol] 3.5 g/dL Normal 3.3 - 5.0 gm/dL [facility] Albumin/Globulin [Mass ratio] 1.1 {ratio} Normal [...] 0.2 mg/dL Normal 0.1 - 0.4 mg/dL [facility] Bilirubin.indirect [Mass or moles/Vol] 0.3 mg/dL Normal 0.1 - 0.9 mg/dL [facility] Creatinine [Mass/Vol] 1.1 mg/dL Normal 0.5 - 1.3 mg/dL [facility] GFR/1.73 sq M.predicted among non-blacks MDRD (S/P/Bld) [Vol rate/Area] 68 mL/min/1.73 m2 Normal >=59mL/min /1.73 m2 [facility] Chem S Comment on above: Interpretive Data: [...] Low 135 - 145 mmol/L [facility] HEMATOLOGYOrdered By: SYSTEM SYSTEM on 06-23-2023 Basophils/100 [...] Normal 4.0 - 11.0 E9/L [facility] HemeAutoSS SEROLOGYOrdered By: Tami Randle on 06-23-2023 Beta hCG Ql Negative (06/23/23 10:07 AM) Normal [facility] URINALYSISOrdered By: Dinorah Randle on 06-23-2023 Bacteria [...] AM) Normal Negative [facility] UA Auto SS Ola.plasma/Lithi um.RBC (Bld) [Mass ratio] >75 /HPF Invalid [...] [facility] UA Auto SS Urobilinogen Qn (U) [id number] {Stevenson'U}/dL Normal 0.0 - 1.0 EU/dL [facility] UA Auto SS WBC Auto Ql (U) Negative (06/23/23 11:23 AM) Normal Negative [facility] UA Auto SS WBC LM.HPF (Urine sed) [#/Area] 0-5 /HPF Normal 0-5/HPF [facility] UA Auto SS TSHon 01-09-2023 TSH 1.192 uIU/mL Normal 0.358-3.74 0 [facility] Comment on above: Performed By: #### T SH #### [facility] [address] [place] [address] Dr. Gage Mathis PAP ACOG PANEL 2: 30 to 65on 01-08-2023 . . [facility] Comment on above: Result Comment: Perf ormed at: WB Performed By: #### L IVER, LIPID, TSH, FT3, BMP #### [facility] [address] [place] [address] Dr. Gage Mathis Age Gdln ACOG Testing 30-65 Normal [facility] Comment on above: Performed By: #### L IVER, LIPID, TSH, FT3, BMP #### [facility] [address] [place] [address] Dr. Gage Mathis DIAGNOSIS: Comment [facility] Comment on above: Result Comment: NEGA TIVE FOR INTRAEPITHELIAL LESION OR MALIGNANCY. THIS SPECIMEN WAS RESCREENED PART OF OUR LAB ASST PROGRAM. Performed at: WB Performed By: #### L IVER, LIPID, TSH, FT3, BMP #### [facility] [address] [address] [address] Gage Mathis HPV Aptima Negative Normal Negative [facility] Comment on above: Result Comment: This nucleic acid amplification test detects fourteen high-risk HPV types (16,18,31,33,35,39,45,51,52,56,58,59,66,68) without differentiation. Performed at: =G Performed By: #### L IVER, LIPID, TSH, FT3, BMP #### [facility] [address] [address] [address] Gage Mathis HPV Genotype Reflex Comment Normal [facility] Comment on above: Result Comment: Crit eria not met, HPV Genotype not performed. Performed at: WB Performed By: #### L IVER, LIPID, TSH, FT3, BMP #### [facility] [address] [place] [address] Dr. Gage Mathis Methodology: Comment Normal [facility] Comment on above: Result Comment: This liquid based ThinPrep(R) pap test was screened with the use of an image guided system. Performed at: WB Performed By: #### L IVER, LIPID, TSH, FT3, BMP #### [facility] [address] [place] [address] Dr. Gage Mathis Note: Comment Normal [facility] Comment on above: Result Comment: The Pap [...] L IVER, LIPID, TSH, FT3, BMP #### [facility] [address] [place] [address] Dr. Gage Mathis Performed by: Comment Normal [facility] Comment on above: Result Comment: Zoya Davis, Mingle Operator (ASCP) Performed at: WB Performed By: #### L IVER, LIPID, TSH, FT3, BMP #### [facility] [address] [address] [address] Gage Mathis QC reviewed by: Comment Normal [facility] Comment on above: Result Comment: Clotilde Suresh, Supervisory Mingle Operator (ASCP) Performed at: WB Performed By: #### L IVER, LIPID, TSH, FT3, BMP #### [facility] [address] [address] [address] Gage Mathis Specimen adequacy: Comment Normal [facility] Comment on above: Result Comment: Sati sfactory for evaluation. Endocervical and/or squamous metaplastic cells (endocervical component) are present. Performed at: WB Performed By: #### L IVER, LIPID, TSH, FT3, BMP #### [facility] [address] [address] [address] Gage Mathis CBC AUTO DIFFon 12-04-2022 BASO # 0.0 103/ul Normal 0.0-0.1 [facility] Comment on above: Performed By: #### L IVER, LIPID, TSH, FT3, BMP #### [facility] [address] [address] [address] Gage Mathis Basophils/100 WBC (Bld) 0.4 % Normal 0.2-2.0 [facility] Comment on above: Performed By: #### L IVER, LIPID, TSH, FT3, BMP #### [facility] [address] [address] [address] Gage Mathis EO # 0.1 103/ul Normal 0.0-0.7 [facility] Comment on above: Performed By: #### L IVER, LIPID, TSH, FT3, BMP #### [facility] [address] [address] [address] Gage Mathis Eosinophils/100 WBC (Bld) 1.3 % Normal 0.9-7.0 [facility] Comment on above: Performed By: #### L IVER, LIPID, TSH, FT3, BMP #### [facility] [address] [address] [address] Gage Mathis Erythrocyte distribution width (RBC) [Ratio] 12.4 % Normal 11.0-15.0 [facility] Comment on above: Performed By: #### L IVER, LIPID, TSH, FT3, BMP #### [facility] [address] [place] [address] Dr. Gage Mathis Hematocrit (Bld) [Volume fraction] 37.1 % Normal 36.0-48.0 [facility] Comment on above: Performed By: #### L IVER, LIPID, TSH, FT3, BMP #### [facility] [address] [place] [address] Dr. Gage Mathis Hemoglobin (Bld) [Mass/Vol] 12.1 g/dL Normal 12.0-16.0 [facility] Comment on above: Performed By: #### L IVER, LIPID, TSH, FT3, BMP #### [facility] [address] [place] [address] Dr. Gage Mathis IG # 0.01 10e3/ul Normal 0.00-0.03 [facility] Comment on above: Performed By: #### L IVER, LIPID, TSH, FT3, BMP #### [facility] [address] [place] [address] Dr. Gage Mathis IG % 0.2 % Normal 0.0-0.5 [facility] Comment on above: Performed By: #### L IVER, LIPID, TSH, FT3, BMP #### [facility] [address] [place] [address] Dr. Gage Mathis LYMPH # 1.6 103/ul Normal 1.2-3.8 [facility] Comment on above: Performed By: #### L IVER, LIPID, TSH, FT3, BMP #### [facility] [address] [place] [address] Dr. Gage Mathis Lymphocytes/100 WBC (Bld) 30.6 % Normal 20.5-60.0 [facility] Comment on above: Performed By: #### L IVER, LIPID, TSH, FT3, BMP #### [facility] [address] [place] [address] Dr. Gage Mathis MANUAL DIFF REQ NO Normal [facility] Comment on above: Performed By: #### L IVER, LIPID, TSH, FT3, BMP #### [facility] [address] [place] [address] Dr. Gage Mathis MCH (RBC) [Entitic mass] 31.8 pg Normal 26.7-34.0 [facility] Comment on above: Performed By: #### L IVER, LIPID, TSH, FT3, BMP #### [facility] [address] [place] [address] Dr. Gage Mathis MCHC (RBC) [Mass/Vol] 32.6 g/dL Normal 29.9-35.2 [facility] Comment on above: Performed By: #### L IVER, LIPID, TSH, FT3, BMP #### [facility] [address] [place] [address] Dr. Gage Mathis MCV (RBC) [Entitic vol] 97.4 fL Normal 81.0-99.0 [facility] Comment on above: Performed By: #### L IVER, LIPID, TSH, FT3, BMP #### [facility] [address] [place] [address] Dr. Gage Mathis MONO # 0.4 103/ul Normal 0.3-0.8 [facility] Comment on above: Performed By: #### L IVER, LIPID, TSH, FT3, BMP #### [facility] [address] [place] [address] Dr. Gage Mathis Monocytes/100 WBC (Bld) 8.4 % Normal 1.7-12.0 [facility] Comment on above: Performed By: #### L IVER, LIPID, TSH, FT3, BMP #### [facility] [address] [place] [address] Dr. Gage Mathis NEUT # 3.1 103/ul Normal 1.4-6.5 [facility] Comment on above: Performed By: #### L IVER, LIPID, TSH, FT3, BMP #### [facility] [address] [place] [address] Dr. Gage Mathis Neutrophils/100 WBC (Bld) 59.1 % Normal 43.0-75.0 [facility] Comment on above: Performed By: #### L IVER, LIPID, TSH, FT3, BMP #### [facility] [address] [place] [address] Dr. Gage Mathis Platelet mean volume (Bld) [Entitic vol] 10.1 fL Normal 9.5-13.5 [facility] Comment on above: Performed By: #### L IVER, LIPID, TSH, FT3, BMP #### [facility] [address] [place] [address] Dr. Gage Mathis PLT 205 103/ul Normal 150-450 [facility] Comment on above: Performed By: #### L IVER, LIPID, TSH, FT3, BMP #### [facility] [address] [place] [address] Dr. Gage Mathis RBC 3.81 106/ul Critically low 4.20-5.40 [facility] Comment on above: Performed By: #### L IVER, LIPID, TSH, FT3, BMP #### [facility] [address] [place] [address] Dr. Gage Mathis WBC 5.2 103/ul Normal 4.0-11.0 [facility] Comment on above: Performed By: #### L IVER, LIPID, TSH, FT3, BMP #### [facility] [address] [place] [address] Dr. Gage Mathis FREE T4on 12-04-2022 Free T4 [Mass/Vol] 0.98 ng/dL Normal 0.76-1.46 [facility] Comment on above: Performed By: #### L IVER, LIPID, TSH, FT3, BMP #### [facility] [address] [place] [address] Dr. Gage Mathis GLYCOHEMOGLOBIN A1Con 2022 ADA RECOMMENDATION SEE BELOW Normal [facility] Comment on above: Result Comment: ADA RECOMMENDED LIMIT 4.0 - 6.0 ADA THERAPEUTIC TARGET < 7.0 ACTION SUGGESTED > 7.0 Performed By: #### L IVER, LIPID, TSH, FT3, BMP #### [facility] [address] [place] [address] Dr. Gage Mathis Glucose [Mass/Vol] 100 mg/dL Normal [facility] Comment on above: Performed By: #### L IVER, LIPID, TSH, FT3, BMP #### [facility] [address] [place] [address] Dr. Gage Mathis HbA1c (Bld) [Mass fraction] 5.1 % Normal 4.5-6.2 [facility] Comment on above: Performed By: #### L IVER, LIPID, TSH, FT3, BMP #### [facility] [address] [place] [address] Dr. Gage Mathis PREG QUANT HCGon 12-04-2022 HCG QUANT <1 Normal [facility] Comment on above: Performed By: #### L IVER, LIPID, TSH, FT3, BMP #### [facility] [address] [place] [address] Dr. Gage Mathis HCG RANGE SEE BELOW Normal [facility] Comment on above: Result Comment: 5-50 0.2-1 WEEK 50-500 1-2 WEEKS 100-5,000 2-3 WEEKS 500-10,000 3-4 WEEKS 1,000-50,000 4-5 WEEKS 10,000-100,000 5-6 WEEKS 15,000-200,000 6-8 WEEKS 10,000-100,000 2-3 MONTHS Performed By: #### L IVER, LIPID, TSH, FT3, BMP #### [facility] [address] [place] [address] Dr. Gage Mathis PROTIMEon 12-04-2022 INR Coag (PPP) [Relative time] 0.94 {INR} Normal [facility] Comment on above: Performed By: #### L IVER, LIPID, TSH, FT3, BMP #### [facility] [address] [place] [address] Dr. Gage Mathis INR GUIDELINES SEE BELOW Normal [facility] Comment on above: Result Comment: KALEB RED INR: 2.0 - 3.0 CONDITIONS NOT LISTED BELOW 2.5 - 3.5 FOR PROSTHETIC HEART VALVE REPLACEMENT 2.5 - 3.5 RECURRENT THROMBOSIS Performed By: #### L IVER, LIPID, TSH, FT3, BMP #### [facility] [address] [place] [address] Dr. Gage Mathis PT Coag (PPP) [Time] 10.0 s Normal 9.0-11.6 [facility] Comment on above: Performed By: #### L IVER, LIPID, TSH, FT3, BMP #### [facility] [address] [place] [address] Dr. Gage Mathis PTTon 12-04-2022 aPTT Coag (Bld) [Time] 28.1 s Normal 22.3-36.2 [facility] Comment on above: Performed By: #### L IVER, LIPID, TSH, FT3, BMP #### [facility] [address] [place] [address] Dr. Gage Mathis TSHon 12-04-2022 TSH 4.110 uIU/mL Critically high 0.358-3.74 0 [facility] Comment on above: Performed By: #### L IVER, LIPID, TSH, FT3, BMP #### [facility] [address] [place] [address] Dr. Gage Mathis CBC AUTO DIFFon 10-09-2022 BASO # 0.0 103/ul Normal 0.0-0.1 [facility] Comment on above: Performed By: #### C BC #### [facility] [address] [place] [address] Dr. Gage Mathis Basophils/100 WBC (Bld) 0.1 % Critically low 0.2-2.0 [facility] Comment on above: Performed By: #### C BC #### [facility] [address] [place] [address] Dr. Gage Mathis EO # 0.0 103/ul Normal 0.0-0.7 [facility] Comment on above: Performed By: #### C BC #### [facility] [address] [place] [address] Dr. Gage Mathis Eosinophils/100 WBC (Bld) 0.0 % Critically low 0.9-7.0 [facility] Comment on above: Performed By: #### C BC #### [facility] [address] [place] [address] Dr. Gage Mathis Erythrocyte distribution width (RBC) [Ratio] 13.0 % Normal 11.0-15.0 [facility] Comment on above: Performed By: #### C BC #### [facility] [address] [place] [address] Dr. Gage Mathis Hematocrit (Bld) [Volume fraction] 38.6 % Normal 36.0-48.0 [facility] Comment on above: Performed By: #### C BC #### [facility] [address] [place] [address] Dr. Gage Mathis Hemoglobin (Bld) [Mass/Vol] 12.4 g/dL Normal 12.0-16.0 [facility] Comment on above: Performed By: #### C BC #### [facility] [address] [place] [address] Dr. Gage Mathis IG # 0.05 10e3/ul Critically high 0.00-0.03 [facility] Comment on above: Performed By: #### C BC #### [facility] [address] [place] [address] Dr. Gage Mathis IG % 0.5 % Normal 0.0-0.5 [facility] Comment on above: Performed By: #### C BC #### [facility] [address] [place] [address] Dr. Gage Mathis LYMPH # 2.8 103/ul Normal 1.2-3.8 [facility] Comment on above: Performed By: #### C BC #### [facility] [address] [place] [address] Dr. Gage Mathis Lymphocytes/100 WBC (Bld) 26.2 % Normal 20.5-60.0 [facility] Comment on above: Performed By: #### C BC #### [facility] [address] [place] [address] Dr. Gage Mathis MANUAL DIFF REQ NO Normal [facility] Comment on above: Performed By: #### C BC #### [facility] [address] [address] [address] Gage Mathis MCH (RBC) [Entitic mass] 32.0 pg Normal 26.7-34.0 [facility] Comment on above: Performed By: #### C BC #### [facility] [address] [place] [address] Dr. Gage Mathis MCHC (RBC) [Mass/Vol] 32.1 g/dL Normal 29.9-35.2 [facility] Comment on above: Performed By: #### C BC #### [facility] [address] [place] [address] Dr. Gage Mathis MCV (RBC) [Entitic vol] 99.5 fL Critically high 81.0-99.0 [facility] Comment on above: Performed By: #### C BC #### [facility] [address] [place] [address] Dr. aGge Mathis MONO # 0.6 103/ul Normal 0.3-0.8 [facility] Comment on above: Performed By: #### C BC #### [facility] [address] [place] [address] Dr. Gage Mathis Monocytes/100 WBC (Bld) 5.5 % Normal 1.7-12.0 [facility] Comment on above: Performed By: #### C BC #### [facility] [address] [place] [address] Dr. Gage Mathis NEUT # 7.1 103/ul Critically high 1.4-6.5 [facility] Comment on above: Performed By: #### C BC #### [facility] [address] [place] [address] Dr. Gage Mathis Neutrophils/100 WBC (Bld) 67.7 % Normal 43.0-75.0 [facility] Comment on above: Performed By: #### C BC #### [facility] [address] [place] [address] Dr. Gage Mathis Platelet mean volume (Bld) [Entitic vol] 10.0 fL Normal 9.5-13.5 [facility] Comment on above: Performed By: #### C BC #### [facility] [address] [address] [address] Gage Mathis PLT 271 103/ul Normal 150-450 [facility] Comment on above: Performed By: #### C BC #### [facility] [address] [place] [address] Dr. Gage Mathis RBC 3.88 106/ul Critically low 4.20-5.40 [facility] Comment on above: Performed By: #### C BC #### [facility] [address] [place] [address] Dr. Gage Mathis WBC 10.5 103/ul Normal 4.0-11.0 [facility] Comment on above: Performed By: #### C BC #### [facility] [address] [place] [address] Dr. Gage Mathis FREE T3on 10-09-2022 FREE T3 1.64 pg/mlL Critically low 2.18-3.98 [facility] Comment on above: Performed By: #### L IVER, LIPID, TSH, FT3, BMP #### [facility] [address] [place] [address] Dr. Gage Mathis FREE T4on 10-09-2022 Free T4 [Mass/Vol] 1.01 ng/dL Normal 0.76-1.46 [facility] Comment on above: Performed By: #### F T4 #### [facility] [address] [place] [address] Dr. Gage Mathis GLYCOHEMOGLOBIN A1Con 2022 ADA RECOMMENDATION SEE BELOW Normal [facility] Comment on above: Result Comment: ADA RECOMMENDED LIMIT 4.0 - 6.0 ADA THERAPEUTIC TARGET < 7.0 ACTION SUGGESTED > 7.0 Performed By: #### L IVER, LIPID, TSH, FT3, BMP #### [facility] [address] [place] [address] Dr. Gage Mathis Glucose [Mass/Vol] 100 mg/dL Normal [facility] Comment on above: Performed By: #### L IVER, LIPID, TSH, FT3, BMP #### [facility] [address] [address] [address] Gage Mathis HbA1c (Bld) [Mass fraction] 5.1 % Normal 4.5-6.2 [facility] Comment on above: Performed By: #### L IVER, LIPID, TSH, FT3, BMP #### [facility] [address] [address] [address] Gage Mathis LIPID PROFILEon 10-09-2022 CHOL-HDL RATIO NORM SEE BELOW Normal [facility] Comment on above: Result Comment: 3.3 - 4.4 LOW RISK 4.4 - 7.1 AVERAGE RISK 7.1 - 11.0 MODERATE RISK >11.0 HIGH RISK Performed By: #### L IVER, LIPID, TSH, FT3, BMP #### [facility] [address] [place] [address] Dr. Gage Mathis Cholesterol [Mass/Vol] 162 mg/dL Normal <=200 [facility] Comment on above: Performed By: #### L IVER, LIPID, TSH, FT3, BMP #### [facility] [address] [place] [address] Dr. Gage Mathis Cholesterol in HDL [Mass/Vol] 78 mg/dL Critically high 40-60 [facility] Comment on above: Performed By: #### L IVER, LIPID, TSH, FT3, BMP #### [facility] [address] [address] [address] Gage Mathis Cholesterol in LDL [Mass/Vol] 72.8 mg/dL Normal [facility] Comment on above: Performed By: #### L IVER, LIPID, TSH, FT3, BMP #### [facility] [address] [address] [address] Gage Mathis Cholesterol.total/Ch olesterol in HDL [Mass ratio] 2.1 {ratio} Normal [facility] Comment on above: Performed By: #### L IVER, LIPID, TSH, FT3, BMP #### [facility] [address] [place] [address] Dr. Gage Mathis HDL NORMAL > or = 60 mg/dl - LO W CARDIOVASCULAR RISK <40 mg/dl - HIGH CARDIOVASCULAR RISK Normal [facility] Comment on above: Performed By: #### L IVER, LIPID, TSH, FT3, BMP #### [facility] [address] [address] [address] Gage Mathis LDL CALC NORMAL SEE BELOW Normal [facility] Comment on above: Result Comment: <100 mg/dl OPTIMAL 100 - 129 mg/dl NEAR OR ABOVE OPTIMAL 130 - 159 mg/dl BORDERLINE HIGH 160 - 189 mg/dl HIGH >190 mg/dl VERY HIGH Performed By: #### L IVER, LIPID, TSH, FT3, BMP #### [facility] [address] [place] [address] Dr. Gage Mathis Triglyceride [Mass/Vol] 56 mg/dL Normal <=150 [facility] Comment on above: Performed By: #### L IVER, LIPID, TSH, FT3, BMP #### [facility] [address] [place] [address] Dr. Gage Mathis VLDL CALC 11.2 mg/dL Normal [facility] Comment on above: Performed By: #### L IVER, LIPID, TSH, FT3, BMP #### [facility] [address] [place] [address] Dr. Gage Mathis LIVER PROFILEon 10-09-2022 Albumin [Mass/Vol] 3.2 g/dL Critically low 3.4-5.0 Th e [facility] Comment on above: Performed By: #### L IVER, LIPID, TSH, FT3, BMP #### [facility] [address] [address] [address] Gage Mathis Albumin/Globulin [Mass ratio] 0.9 {ratio} Normal [facility] Comment on above: Performed By: #### L IVER, LIPID, TSH, FT3, BMP #### [facility] [address] [place] [address] Dr. Gage Mathis ALP [Catalytic activity/Vol] 89 U/L Normal 46-116 [facility] Comment on above: Performed By: #### L IVER, LIPID, TSH, FT3, BMP #### [facility] [address] [place] [address] Dr. Gage Mathis ALT [Catalytic activity/Vol] 49 U/L Normal 14-59 [facility] Comment on above: Performed By: #### L IVER, LIPID, TSH, FT3, BMP #### [facility] [address] [place] [address] Dr. Gage Mathis AST [Catalytic activity/Vol] 15 U/L Normal 15-37 [facility] Comment on above: Performed By: #### L IVER, LIPID, TSH, FT3, BMP #### [facility] [address] [place] [address] Dr. Gage Mtahis BILI, CONJUGATED 0.1 mg/dL Normal 0.0-0.2 [facility] Comment on above: Performed By: #### L IVER, LIPID, TSH, FT3, BMP #### [facility] [address] [place] [address] Dr. Gage Mathis Bilirubin [Mass/Vol] 0.3 mg/dL Normal 0.2-1.0 [facility] Comment on above: Performed By: #### L IVER, LIPID, TSH, FT3, BMP #### [facility] [address] [place] [address] Dr. Gage Mathis Globulin (S) [Mass/Vol] 3.7 g/dL Normal [facility] Comment on above: Performed By: #### L IVER, LIPID, TSH, FT3, BMP #### [facility] [address] [place] [address] Dr. Gage Mathis Protein [Mass/Vol] 6.9 g/dL Normal 6.4-8.2 [facility] Comment on above: Performed By: #### L IVER, LIPID, TSH, FT3, BMP #### [facility] [address] [place] [address] Dr. Gage Mathis PROF CHEM 8 (BAS METB)on Anion gap [Moles/Vol] 12.1 mmol/L Normal [facility] Comment on above: Performed By: #### L IVER, LIPID, TSH, FT3, BMP #### [facility] [address] [place], [place] [id number] Dr. Gage Mathis Calcium [Mass/Vol] 9.0 mg/dL Normal 8.5-10.1 [facility] Comment on above: Performed By: #### L IVER, LIPID, TSH, FT3, BMP #### [facility] [address] [address] [address] Gage Mathis Chloride [Moles/Vol] 104 mmol/L Normal 98-107 [facility] Comment on above: Performed By: #### L IVER, LIPID, TSH, FT3, BMP #### [facility] [address] [address] [address] Gage Mathis CO2 [Moles/Vol] 29.6 mmol/L Normal 21.0-32.0 [facility] Comment on above: Performed By: #### L IVER, LIPID, TSH, FT3, BMP #### [facility] [address] [place] [address] Dr. Gage Mathis Creatinine [Mass/Vol] 0.82 mg/dL Normal 0.55-1.02 [facility] Comment on above: Performed By: #### L IVER, LIPID, TSH, FT3, BMP #### [facility] [address] [place] [address] Dr. Gage Mathis EGFR-AF [place]TH [place]OREAN >60 Normal >=60 [facility] Comment on above: Performed By: #### L IVER, LIPID, TSH, FT3, BMP #### [facility] [address] [place] [address] Dr. Gage Mathis EGFR-NON AF [place]ORE[place] >60 Normal >=60 [facility] Comment on above: Performed By: #### L IVER, LIPID, TSH, FT3, BMP #### [facility] [address] [address] [address] Gage Mathis Glucose [Mass/Vol] 92 mg/dL Normal 74-106 [facility] Comment on above: Performed By: #### L IVER, LIPID, TSH, FT3, BMP #### [facility] [address] [place] [address] Dr. Gage Mathis Potassium [Moles/Vol] 3.7 mmol/L Normal 3.5-5.1 [facility] Comment on above: Performed By: #### L IVER, LIPID, TSH, FT3, BMP #### [facility] [address] [place] [address] Dr. Gage Mathis Sodium [Moles/Vol] 142 mmol/L Normal 136-145 [facility] Comment on above: Performed By: #### L IVER, LIPID, TSH, FT3, BMP #### [facility] [address] [place] [address] Dr. Gage Mathis Urea nitrogen [Mass/Vol] 14.0 mg/dL Normal 7.0-18.0 [facility] Comment on above: Performed By: #### L IVER, LIPID, TSH, FT3, BMP #### [facility] [address] [place] [address] Dr. Gage Mathis Urea nitrogen/Creatinine [Mass ratio] 17.1 mg/mg Normal [facility] Comment on above: Performed By: #### L IVER, LIPID, TSH, FT3, BMP #### [facility] [address] [place] [address] Dr. Gage Mathis TSHon 10-09-2022 TSH 1.637 uIU/mL Normal 0.358-3.74 0 [facility] Comment on above: Performed By: #### L IVER, LIPID, TSH, FT3, BMP #### [facility] [address] [place] [address] Dr. Gage Mathis VITAMIN D 25 OHon 10-09-2022 VIT D 25-OH 41.1 ng/mL Normal [facility] Comment on above: Performed By: #### V ITAD #### [facility] [address] [place] [address] Dr. Gage Mathis VIT D RANGES SEE BELOW Normal [facility] Comment on above: Result Comment: <20 ng/mL Vit D deficient 20 - <30 ng/mL Vit D insufficient 30 - 100 ng/mL Vit D sufficient >100 ng/mL Potential Toxicity Performed By: #### V ITAD #### [facility] [address] [address] [address] Gage Mathis COVID/FLU RT-PCRon 3 SARS-CoV-2 (COVID-19) RNA EB+probe Ql (Unsp spec) Negative Fon Other COVID/FLU RT-PCR Negative [facility] THUBIT Other COVID Quick Testingon 2021 Result Negative Fon Other US PELVIS AND TRANSVAGon US PELVIS [...] BING NOE Date: 2022-05-02 17:47 Normal [facility] CHLAMYDIA/GONOCOCCUS EB (SW AB/URINE/PAPon 04-11-2022 Chlamydia trachomatis, EB Negative Normal Negative [facility] Comment on above: Performed By: #### L IVER, LIPID, TSH, FT3, BMP #### [facility] [address] [place] [address] [address] [address] Gage Mathis Neisseria gonorrhoeae, EB Negative Normal Negative [facility] Comment on above: Performed By: #### L IVER, LIPID, TSH, FT3, BMP #### [facility] [address] [place] [address] [address] [address] Gage Mathis VAGINITIS/VAGINOSIS DNA PROB Sincere 04-10-2022 Sol species Negative Normal Negative [facility] Comment on above: Performed By: #### V AGINT #### [facility] [address] [address] [address] Gage Mathis Gardnerella vaginalis Positive Abnormal Negative [facility] Comment on above: Performed By: #### V AGINT #### [facility] [address] [address] [address] Gage Mathis Trichomonas vaginalis Negative Normal Negative [facility] Comment on above: Performed By: #### V AGINT #### [facility] [address] [address] [address] Gage Mathis Basic Metabolic Panlon 08-06 Anion gap 3 molar conc 14 mmol/L Normal 9-18 [facility] Comment on above: Performed By: #### B MP, HFP ####[facility] [phone] Calcium mass conc 9.2 mg/dL Normal 8.5-10.2 [facility] Comment on above: Performed By: #### B MP, HFP ####[facility] [phone] Chloride molar conc 103 mmol/L Normal 97-105 [facility] Comment on above: Performed By: #### B MP, HFP ####[facility] [address] [phone] CO2 molar conc 24 mmol/L Normal 22-30 [facility] Comment on above: Performed By: #### B MP, HFP ####[facility] [address] [phone] Creatinine mass conc 0.83 mg/dL Normal 0.58-0.96 [facility] Comment on above: Performed By: #### B MP, HFP ####[facility] [phone] eGFR- Amer. >60 Normal [facility] Comment on above: Performed By: #### B MP, HFP ####[facility] [place], [place] [phone] GFR/1.73 sq M predicted among non-blacks MDRD vol rate/area (S/P/Bld) mL/min/{1.73_m2} Normal [facility] Comment on above: Result Comment: eGFR (Estimated [...] actual GFR. Performed By: #### B MP, [facility] ####[facility] [place], [place] [phone] Glucose mass conc 82 mg/dL Normal 74-99 [facility] Comment on above: Result Comment: The [place] Diabetes Association (ADA) provides guidance for cutoff [...] Standards of Medical Care in Diabetes 2016, [place] [employer]. Diabetes Care. 2016.39(Suppl 1). Performed By: #### B MP, [facility] ####[facility] [place], [place] [phone] Potassium molar conc 4.3 mmol/L Normal 3.7-5.1 [facility] Comment on above: Performed By: #### B MP, HFP ####[facility] [address] [place], [place] [phone] Sodium molar conc 141 mmol/L Normal 136-144 [facility] Comment on above: Performed By: #### B MP, HFP ####[facility] [address] [place], [place] [phone] Urea nitrogen mass conc 14 mg/dL Normal 7-21 [facility] Comment on above: Performed By: #### B MP, HFP ####[facility] [address] [place], [place] [phone] CNOVSPon 08-06-2018 CNOVSP Visit (SP) Office (HEMACL) AZUL ONTIVREOS ([id number]) 1990 [facility] Time Provider Daplwowilx28/29/18 3:30 PM SHANT ROMERO During your visit today, we recorded the following information about you: Temperature Pulse Respiration Blood pressure 98.8 degrees 87/minute 16/minute 128/77 Weight Height 123.2 kg 1.524 Kirstie Romero MD 08/06/2018 3:44 PM HiDavina Allen is a 28 year old female [...] al. Chest 2012, 141:7S-47SNishimlouise RA, et al. [facility] 2017, 70: 252-289 APTT 23.0 - 32.4 [...] oflaboratory APTT reagent in use throughout the [facility]. Platelet Neut Negative Negative Negative DRVVT Screen 32.7 - 46.7 sec 35.1 36.1 42.3 DRVVT Confirm Ratio <1.21 1.10 <1.21 class= rz_g ghq2108 >0.91 <1.21 class= rz_6 ows5172 >1.06 DRVVT 1:1 Mix 32.7 - 46.7 sec 33.9 36.2 41.3 Hex Phase Screen 45.0 - 59.9 sec 34.7 54.5 Hex Phase Confirm 41.8 - 54.9 sec 32.6 47.7 Hex Phase Delta <9.1 delta sec 2.1 <9.1 delta sec class= rz_6 cgg1106 >6.7 APTT Screen 24.4 - 33.4 sec 24.3 33.0CM Immediate PTT 1:1 Mix <33.2 sec 26.3 <33.2 sec class= rz_6 lue8957 >30.6 Incubated PTT 1:1 Mix <35.0 sec 28.3 <35.0 sec class= rz_6 jqw8420 >32.4 Thrombin Time <18.6 sec 17.7 <18.6 sec class= rz_6 qei3181 >16.1 Interpretation(Lupus Anticoagulant) (NOTE) (NOTE)CMComment: Performing Pathologist: [...] GPL <9 <9CMComment: <10 GPL ? ? [id number] GPL ? Equivocal>40 GPL ? ? PositiveThe following results were obtained with the [employer] QUANTA Lite LAVON IgG IIIELISA. Cardiolipin IgG values obtained with the different manufacturers' assay?methods may not be used interchangeably. The magnitude of the reported IgGlevels cannot be correlated to an endpoint titer. Cardiolipin Ab, IgM 0 - 11 MPL <9 9CMComment: <12 MPL ? ? Seqadylh86-71 MPL ? Equivocal>40 MPL ? ? PositiveThe following results were obtained with the [employer] QUANTA Lite LAVON IgM IIIELISA. Cardiolipin IgM values obtained with different manufacturers' assaymethods may not be used interchangeably. The magnitude of the reported IgMlevels cannot be correlated to an endpoint titer. Cardiolipin Ab, IgA 0 - 11 APL <9 <9CMComment: <12 APL ? ? Cticmvbj10-05 APL ? Equivocal>40 APL ? ? PositiveThe following results were obtained with an [employer] QUANTA Lite LAVON IgA IIIELISA. Cardiolipin IgA values obtained with different manufacturers' assaymethods may not be used interchangeably. The magnitude of the reported IgAlevels cannot be correlated to an endpoint titer. Beta 2 Glycoprotein, IgG <20 SGU <9 <20 SGU class= rz_6 vkv7056 ><9CMComment: < 20 ?SGU ? ?Irvajzgv20-86 SGU ? ?Low Positive> 80 ?SGU ? ?High PositiveThese results were obtained with the Entelec Control SystemsA Lite B2 GPI IgG DAYNA. B2GPI IgG values obtained with different manufacturers' assay methods may not be?used interchangeably. The magnitude of the reported IgG levels cannot becorrelated to an endpoint titer. Beta 2 Glycoprotein, IgM <20 SMU <9 <20 SMU class= rz_6 yjl0115 ><9CMComment: < 20 ?SMU ? ?Dfonvyfj30-78 SMU ? ?Low Positive> 80 ?SMU ? ?High PositiveThese results were obtained with the [employer] QUANTA Lite B2 GPI IgM DAYNA. B2GPI IgM values obtained with different manufacturers' assay methods may not be?used interchangeably. The magnitude of the reported IgM levels cannot becorrelated to an endpoint titer.FACTOR V LEIDEN/PCROrder: [id number]: Final result ??Visible to patient: No (Not Released) Next appt: NoneDx: Positive dilute Idalia's viper venom...Component 3mo agoFactor V Leiden PCR Report (NOTE)Comment: Performing Pathologist: Alvina Sotomayor M.D., Ph.D.Factor V Leiden Mutation Result: NORMALHOMOCYSTEINEOrder: [id number]: Final result ??Visible to patient: No (Not Released) Next appt: NoneDx: Positive dilute Idalia's viper venom... Ref Range AND Units 3mo agoHomocysteine, Serum <15.1 umol/L 9.5Resulting Agency CCMSpecimen Collected: 04/20/18 ?2:22 PM Last Resulted: 04/21/18 ?1:31 PM LabFlowsheet Order Details View Encounter Lab and Collection Details RoutingResult HistoryOther Results from 04/20/2018FACTOR V LEIDEN/PCROrder: [id number]: Final result ??Visible to patient: No (Not [...] and Collection Details RoutingResult HistoryPROTHROMBIN GENE PCROrder: [id number]: Final result ??Visible to patient: No (Not Released) Next appt: NoneDx: Positive dilute Idalia's viper venom...Component 3mo agoPT Gene Report (NOTE)Comment: Performing Pathologist: Alvina Sotomayor M.D., Ph.D.PT Gene Mutation Result: NORMAL ?PT Gene Mutation Interpretation: The DNA sample is negative for [id number] point mutation in the 3' untranslated region [...] and Collection Details RoutingResult HistoryPROTEIN S CLOTTABLEOrder: [id number]: Final result ??Visible to patient: No (Not Released) Next appt: NoneDx: Positive dilute Idalia's viper venom... Ref Range AND Units 3mo agoProtein S Clottable 59 - 131 % 108Resulting Agency CCMSpecimen Collected: 04/20/18 ?2:22 PM Last Resulted: 04/21/18 ?9:13 AM LabFlowsheet Order Details View Encounter Lab and Collection Details RoutingResult HistoryPROTEIN C FUNCTOrder: [id number]: Final result ??Visible to patient: No (Not Released) Next appt: NoneDx: Positive dilute Idalia's viper venom... Ref Range AND Units 3mo agoPro C Fun 76 - 147 % 104Resulting Agency CCMSpecimen Collected: 04/20/18 ?2:22 PM Last Resulted: 04/21/18 ?9:13 AM LabFlowsheet Order Details View Encounter Lab and Collection Details RoutingResult HistoryANTITHROMBIN IIIOrder: [id number]: Final result ??Visible to patient: No (Not Released) Next appt: NoneDx: Positive dilute Idalia's viper venom... Ref Range AND Units 3mo agoAntithrombin Assay 84 - 138 % 93Resulting Agency CCMSpecimen Collected: 04/20/18 ?2:22 PM Last Resulted: 04/21/18 ?9:13 AM LabFlowsheet Order Details View Encounter Lab and Collection Details RoutingResult HistoryLUPUS ANTICOAG PLOrder: [id number]: Final result ??Visible to patient: No (Not [...] al. Chest 2012, 141:7S-47SNishimura RA, et al. [facility] 2017, 70: 252-289APTT 23.0 - 32.4 sec [...] oflaboratory APTT reagent in use throughout the [facility].Platelet Neut Negative NegativeDRVVT Screen 32.7 - [...] 9 GPL <9Comment: <10 GPL ? ? Dzgqxffn65-97 GPL ? Equivocal>40 GPL ? ? PositiveThe following results were obtained with the [employer] QUANTA Lite LAVON IgG IIIELISA. Cardiolipin IgG values obtained with the different manufacturers' assay?methods may not be used interchangeably. The magnitude of the reported IgGlevels cannot be correlated to an endpoint titer.Cardiolipin Ab, IgM 0 - 11 MPL 9Comment: <12 MPL ? ? Nmmvpmxj86-92 MPL ? Equivocal>40 MPL ? ? PositiveThe following results were obtained with the [employer] QUANTA Lite LAVON IgM IIIELISA. Cardiolipin IgM values obtained with different manufacturers' assaymethods may not be used interchangeably. The magnitude of the reported IgMlevels cannot be correlated to an endpoint titer.Cardiolipin Ab, IgA 0 - 11 APL <9Comment: <12 APL ? ? Figxefip64-92 APL ? Equivocal>40 APL ? ? PositiveThe following results were obtained with an [employer] QUANTA Lite LAVON IgA IIIELISA. Cardiolipin IgA values obtained with different manufacturers' assaymethods may not be used interchangeably. The magnitude of the reported IgAlevels cannot be correlated to an endpoint titer.Beta 2 Glycoprotein, IgG <20 SGU <9Comment: < 20 ?SGU ? ?Yrvldmec52-24 SGU ? ?Low Positive> 80 ?SGU ? ?High PositiveThese results were obtained with the [employer] SystemsA Lite B2 GPI IgG DAYNA. B2GPI IgG values obtained with different manufacturers' assay methods may not be?used interchangeably. The magnitude of the reported IgG levels cannot becorrelated to an endpoint titer.Beta 2 Glycoprotein, IgM <20 SMU <9Comment: < 20 ?SMU ? ?Gwhzengf08-82 SMU ? ?Low Positive> 80 ?SMU ? ?High PositiveThese results were obtained with the [employer] QUANTA Lite B2 GPI IgM DAYNA. B2GPI IgM values obtained with different manufacturers' assay methods may not be?used interchangeably. The magnitude of the reported IgM levels cannot becorrelated to an endpoint titer.Resulting Agency CCMSpecimen Collected: 04/20/18 ?2:22 PM Last Resulted: 04/21/18 ?6:40 PM LabFlowsheet Order Details View Encounter Lab and Collection Details RoutingResult HistoryANA PANEL BLOOD SCRNOrder: [id number]: Final result ??Visible to patient: No (Not [...] for intervention needed.YE Mccrayefdawson Provider: LATASHA HU [[id number]]Allergies As of Date: 08/06/2018 Noted Allergy ReactionIODINE [...] by SHANT ROMERO MD on 08/06/18 Normal [facility] Hepatic Functn Panelon 08-06 Albumin mass conc 4.2 g/dL Normal 3.9-4.9 [facility] Comment on above: Performed By: #### B BRYANNA, [facility] ####[facility] [place], [place] [phone] ALP enzyme act/vol 75 U/L Normal 34-123 [facility] Comment on above: Performed By: #### B BRYANNA [facility] ####[facility] [place], [place] [phone] ALT enzyme act/vol 21 U/L Normal 7-38 [facility] Comment on above: Performed By: #### B BRYANNA, [facility] ####[facility] [address], [place] [phone] AST enzyme act/vol 21 U/L Normal 13-35 [facility] Comment on above: Performed By: #### B MP, HFP ####[address] [place], [place] [phone] Bilirubin mass conc 0.3 mg/dL Normal 0.2-1.3 [facility] Comment on above: Performed By: #### B MP, HFP ####[address] [place], [place] [phone] Bilirubin,Conjugated <0.2 Normal <0.2 [facility] Comment on above: Performed By: #### B MP, HFP ####[address] [place], [place] [phone] Protein mass conc 7.3 g/dL Normal 6.3-8.0 [facility] Comment on above: Performed By: #### B MP, HFP ####[address] [phone] PROGRESSon 08-06-2018 Protein mass conc HNO ID: [id number] thor: Shant Quinonez: (none)Author Type: PhysicianType: Progress [...] al. Chest 2012, 141:7S-47SNishimura RA, et al. [facility] 2017, 70: 252-289 APTT 23.0 - 32.4 [...] lotoflaboratory APTT reagent in use throughout the [facility]. Platelet Neut Negative Negative Negative DRVVT Screen 32.7 - 46.7 sec 35.1 36.1 42.3 DRVVT Confirm Ratio <1.21 1.10 <1.21 class= rz_g yjs9624 >0.91 <1.21 class= rz_6 huc9423 >1.06 DRVVT 1:1 Mix 32.7 - 46.7 sec 33.9 36.2 41.3 Hex Phase Screen 45.0 - 59.9 sec 34.7 54.5 Hex Phase Confirm 41.8 - 54.9 sec 32.6 47.7 Hex Phase Delta <9.1 delta sec 2.1 <9.1 delta sec class= rz_6hlt1024 >6.7 APTT Screen 24.4 - 33.4 sec 24.3 33.0CM Immediate PTT 1:1 Mix <33.2 sec 26.3 <33.2 sec class= rz_6 qls4262 >30.6 Incubated PTT 1:1 Mix <35.0 sec 28.3 <35.0 sec class= rz_6 toi5572 >32.4 Thrombin Time <18.6 sec 17.7 <18.6 sec class= rz_6 zcp8152 >16.1 Interpretation(Lupus Anticoagulant) (NOTE) (NOTE)CMComment: Performing Pathologist: [...] GPL <9 <9CMComment: <10 GPL ? ? Daxdynmn20-14 GPL ? Equivocal>40 GPL ? ? PositiveThe following results were obtained with the [employer] QUANTA Lite LAVON IgG IIIELISA. Cardiolipin IgG values obtained with the different manufacturers'assay?method s may not be used interchangeably. The magnitude of the reportedIgGlevels cannot be correlated to an endpoint titer. Cardiolipin Ab, IgM 0 - 11 MPL <9 9CMComment: <12 MPL ? ? Jhcxdhhf11-44 MPL ? Equivocal>40 MPL ? ? PositiveThe following results were obtained with the [employer] QUANTA Lite LAVON IgM IIIELISA. Cardiolipin IgM values obtained with different manufacturers' assaymethods may not be used interchangeably. The magnitude of the reported IgMlevels cannot be correlated to an endpoint titer. Cardiolipin Ab, IgA 0 - 11 APL <9 <9CMComment: <12 APL ? ? Ixnucizy75-23 APL ? Equivocal>40 APL ? ? PositiveThe following results were obtained with an [employer] QUANTA Lite LAVON IgA IIIELISA. Cardiolipin IgA values obtained with different manufacturers' assaymethods may not be used interchangeably. The magnitude of the reported IgAlevels cannot be correlated to an endpoint titer. Beta 2 Glycoprotein, IgG <20 SGU <9 <20 SGU class= rz_6 lvb8299 ><9CMComment: < 20 ?SGU ? ?Luitttej10-32 SGU ? ?Low Positive> 80 ?SGU ? ?High PositiveThese results were obtained with the [employer] SystemsA Lite B2 GPI IgG DAYNA.B2GPI IgG values obtained with different manufacturers' assay methods maynot be?used interchangeably. The magnitude of the reported IgG levels cannot becorrelated to an endpoint titer. Beta 2 Glycoprotein, IgM <20 SMU <9 <20 SMU class= rz_6 paz6813 ><9CMComment: < 20 ?SMU ? ?Dzurxdiz46-96 SMU ? ?Low Positive> 80 ?SMU ? ?High PositiveThese results were obtained with the [employer] QUANTA Lite B2 GPI IgM DAYNA.B2GPI IgM values obtained with different manufacturers' assay methods maynot be?used interchangeably. The magnitude of the reported IgM levels cannot becorrelated to an endpoint titer.FACTOR V LEIDEN/PCROrder: [id number]: Final result ??Visible to patient: No (Not Released) Next appt:None Dx: Positive dilute Idalia's viper venom...Component 3mo agoFactor V Leiden PCR Report (NOTE)Comment: Performing Pathologist: Alvina Sotomayor M.D., Ph.D.Factor V Leiden Mutation Result: NORMALHOMOCYSTEINEOrder: [id number]: Final result ??Visible to patient: No (Not Released) Next appt:None Dx: Positive dilute Idalia's viper venom... Ref Range AND Units 3mo agoHomocysteine, Serum <15.1 umol/L 9.5Resulting Agency CCMSpecimen Collected: 04/20/18 ?2:22 PM Last Resulted: 04/21/18 ?1:31 PM LabFlowsheet Order Details View Encounter Lab and Collection Details RoutingResult HistoryOther Results from 04/20/2018FACTOR V LEIDEN/PCROrder: [id number]: Final result ??Visible to patient: No (Not [...] and Collection Details RoutingResult HistoryPROTHROMBIN GENE PCROrder: [id number]: Final result ??Visible to patient: No (Not Released) Next appt:None Dx: Positive dilute Idalia's viper venom...Component 3mo agoPT Gene Report (NOTE)Comment: Performing Pathologist: Alvina Sotomayor M.D., Ph.D.PT Gene Mutation Result: NORMAL ?PT Gene Mutation Interpretation: The DNA sample is negative for [id number] point mutation in the 3' untranslated region of theprothrombin gene.This is not associated with an increased risk ofvenous thrombosis.Venous thrombosis is a multifactorial disorder, andother causes of venous thrombosis are not excluded.PT Gene Mutation Method: This assay was performed by polymerase chainreaction and fluorescence monitoring using hybridization probes. ?[facility]: 04/20/18 ?2:22 PM Last Resulted: 04/22/18 ?4:55 PM LabFlowsheet Order Details View Encounter Lab and Collection Details RoutingResult HistoryPROTEIN S CLOTTABLEOrder: [id number]: Final result ??Visible to patient: No (Not Released) Next appt:None Dx: Positive dilute Idalia's viper venom... Ref Range AND Units 3mo agoProtein S Clottable 59 - 131 % 108Resulting Agency [facility] Collected: 04/20/18 ?2:22 PM Last Resulted: 04/21/18 ?9:13 AM LabFlowsheet Order Details View Encounter Lab and Collection Details RoutingResult HistoryPROTEIN C FUNCTOrder: [id number]: Final result ??Visible to patient: No (Not Released) Next appt:None Dx: Positive dilute Idalia's viper venom... Ref Range AND Units 3mo agoPro C Fun 76 - 147 % 104Resulting Agency [facility] Collected: 04/20/18 ?2:22 PM Last Resulted: 04/21/18 ?9:13 AM LabFlowsheet Order Details View Encounter Lab and Collection Details RoutingResult HistoryANTITHROMBIN IIIOrder: [id number]: Final result ??Visible to patient: No (Not Released) Next appt:None Dx: Positive dilute Idalia's viper venom... Ref Range AND Units 3mo agoAntithrombin Assay 84 - 138 % 93Resulting Agency [facility] Collected: 04/20/18 ?2:22 PM Last Resulted: 04/21/18 ?9:13 AM LabFlowsheet Order Details View Encounter Lab and Collection Details RoutingResult HistoryLUPUS ANTICOAG PLOrder: [id number]: Final result ??Visible to patient: No (Not [...] of 3).Alfred THAKKAR, et al. Chest 2012, 141:7S-47SNishjono RA, et al. [facility] 2017, 70: 252-289APTT 23.0 - 32.4 sec [...] lotoflaboratory APTT reagent in use throughout the [facility].Platelet Neut Negative NegativeDRVVT Screen 32.7 - 46.7 [...] 9 GPL <9Comment: <10 GPL ? ? [id number] GPL ? Equivocal>40 GPL ? ? PositiveThe following results were obtained with the Inova QUANTA Lite LAVON IgG IIIELISA. Cardiolipin IgG values obtained with the different manufacturers'assay?method s may not be used interchangeably. The magnitude of the reportedIgGlevels cannot be correlated to an endpoint titer.Cardiolipin Ab, IgM 0 - 11 MPL 9Comment: <12 MPL ? ? Oqmbarvm47-19 MPL ? Equivocal>40 MPL ? ? PositiveThe following results were obtained with the [employer]ova QUANTA Lite LAVON IgM IIIELISA. Cardiolipin IgM values obtained with different manufacturers' assaymethods may not be used interchangeably. The magnitude of the reported IgMlevels cannot be correlated to an endpoint titer.Cardiolipin Ab, IgA 0 - 11 APL <9Comment: <12 APL ? ? Wsbiiuej72-26 APL ? Equivocal>40 APL ? ? PositiveThe following results were obtained with an Observe[employer] QUANTA Lite LAVON IgA IIIELISA. Cardiolipin IgA values obtained with different manufacturers' assaymethods may not be used interchangeably. The magnitude of the reported IgAlevels cannot be correlated to an endpoint titer.Beta 2 Glycoprotein, IgG <20 SGU <9Comment: < 20 ?SGU ? ?Wtotqklg82-45 SGU ? ?Low Positive> 80 ?SGU ? ?High PositiveThese results were obtained with the Observe[employer]va Khipu SystemsA Lite B2 GPI IgG DAYNA.B2GPI IgG values obtained with different manufacturers' assay methods maynot be?used interchangeably. The magnitude of the reported IgG levels cannot becorrelated to an endpoint titer.Beta 2 Glycoprotein, IgM <20 SMU <9Comment: < 20 ?SMU ? ?Ouljsbhk86-14 SMU ? ?Low Positive> 80 ?SMU ? ?High PositiveThese results were obtained with the [employer] QUANTA Lite B2 GPI IgM DAYNA.B2GPI IgM values obtained with different manufacturers' assay methods maynot be?used interchangeably. The magnitude of the reported IgM levels cannot becorrelated to an endpoint titer.Resulting Agency [facility]pecimen Collected: 04/20/18 ?2:22 PM Last Resulted: 04/21/18 ?6:40 PM LabFlowsheet Order Details View Encounter Lab and Collection Details RoutingResult HistoryANA PANEL BLOOD SCRNOrder: [id number]: Final result ??Visible to patient: No (Not [...] indication for intervention needed.Shant Romero MD Normal [facility] Remote Abs Gran + CBC (for F HC use only)on 08-06-2018 Absol Gran Count 3.97 k/uL Normal 1.45-7.50 [facility] Erythrocyte distribution width Auto Ratio (RBC) 12.1 % Normal 11.5-15.0 [facility] Hematocrit Auto Volume Fraction (Bld) 35.6 % Low 36.0-46.0 [facility] Hemoglobin mass conc (Bld) 11.6 g/dL Normal 11.5-15.5 [facility] MCH Auto Entitic mass (RBC) 31.1 pG Normal 26.0-34.0 [facility] MCHC Auto mass conc (RBC) 32.6 g/dL Normal 30.5-36.0 [facility] MCV Auto Entitic volume (RBC) 95.4 fL Normal 80.0-100.0 [facility] Platelet mean volume Auto Entitic volume (Bld) 10.4 fL Normal 9.0-12.7 [facility] Platelets Auto #/vol (Bld) 211 10*3/uL Normal 150-400 [facility] RBC Auto #/vol (Bld) 3.73 10*6/uL Low 3.90-5.20 [facility] WBC Auto #/vol (Bld) 6.52 10*3/uL Normal 3.70-11.00 [facility] Basic Metabolic Panlon 07-28 Anion gap 3 molar conc 10 mmol/L Normal 9-18 [facility] Calcium mass conc 9.3 mg/dL Normal 8.5-10.2 [facility] Chloride molar conc 104 mmol/L Normal 97-105 [facility] CO2 molar conc 23 mmol/L Normal 22-30 [facility] Creatinine mass conc 0.70 mg/dL Normal 0.58-0.96 [facility] eGFR- Amer. >60 Normal [facility] GFR/1.73 sq M predicted among non-blacks MDRD vol rate/area (S/P/Bld) mL/min/{1.73_m2} Normal [facility] Comment on above: Result Comment: eGFR (Estimated [...] Glucose mass conc 101 mg/dL High 74-99 [facility] Potassium molar conc 4.0 mmol/L Normal 3.7-5.1 [facility] Sodium molar conc 137 mmol/L Normal 136-144 [facility] Urea nitrogen mass conc 12 mg/dL Normal 7-21 [facility] Hepatic Functn Panelon 07-28 Albumin mass conc 4.1 g/dL Normal 3.9-4.9 [facility] ALP enzyme act/vol 75 U/L Normal 34-123 [facility] ALT enzyme act/vol 16 U/L Normal 7-38 [facility] AST enzyme act/vol 14 U/L Normal 13-35 [facility] Bilirubin mass conc 0.3 mg/dL Normal 0.2-1.3 [facility] Bilirubin,Conjugated <0.2 Normal <0.2 [facility] Protein mass conc 7.2 g/dL Normal 6.3-8.0 [facility] Lupus Anticoag Panelon 07-28 aPTT Coag time (Bld) 24.3 s Low 24.4-33.4 [facility] Comment on above: Performed By: #### L UPUSP ####[facility] [address] [place], [place] [phone] aPTT Coag time (Bld) 26.3 s Normal <33.2 [facility] Comment on above: Performed By: #### L UPUSP ####[place] [address] [place], [place] [phone] aPTT Coag time (Bld) 21.8 s Low 23.0-32.4 [facility] Comment on above: Result Comment: Unfr actionated [...] laboratory APTT reagent in use throughout the [facility]. Performed By: #### L UPUSP ####[address] [phone] aPTT Coag time (Bld) 28.3 s Normal <35.0 [facility] Comment on above: Performed By: #### L UPUSP ####[address] [phone] Beta2 Glycoprot IgG <9 Normal <20 [facility] Comment on above: Result Comment: < 20 SGU Oxtjcqbq37-91 SGU Low Positive> 80 SGU High PositiveThese results were obtained with the [employer] QUANTA Lite B2 GPI IgG DAYNA. B2 GPI IgG values obtained with different manufacturers' assay methods may not be used interchangeably. The magnitude of the reported IgG levels cannot be correlated to an endpoint titer. Performed By: #### L UPUSP ####[address] [phone] DRVVT 1:1 Mix 33.9 sec Normal 32.7-46.7 [facility] Comment on above: Performed By: #### L UPUSP ####[address] [phone] DRVVT Confirm Ratio 1.10 Normal <1.21 [facility] Comment on above: Performed By: #### L UPUSP ####[facility] [place], [place] [phone] DRVVT Screen 35.1 sec Normal 32.7-46.7 [facility] Comment on above: Performed By: #### L UPUSP ####[facility] [place], [place] [phone] Hex Phase Confirm 32.6 sec Low 41.8-54.9 [facility] Comment on above: Performed By: #### L UPUSP ####[address] [place] [place], [place] [phone] Hex Phase Delta 2.1 delta sec Normal <9.1 [facility] Comment on above: Performed By: #### L UPUSP ####[address] [phone] Hex Phase Screen 34.7 sec Low 45.0-59.9 [facility] Comment on above: Performed By: #### L UPUSP ####[facility] [place], [place] [phone] IgA Cardiolipin Ab. <9 Normal 0-11 [facility] Comment on above: Result Comment: <12 APL Jxqzcpmn55-58 APL Equivocal>40 APL PositiveThe following results were obtained with an Inova QUANTA Lite LAVON IgA III DAYNA. Cardiolipin IgA values obtained with different manufacturers' assay methods may not be used interchangeably. The magnitude of the reported IgA levels cannot be correlated to an endpoint titer. Performed By: #### L UPUSP ####[address] [place], [place] [phone] IgG Cardiolipin Ab. <9 Normal 0-9 [facility] Comment on above: Result Comment: <10 GPL [id number] GPL Equivocal>40 GPL PositiveThe following results were obtained with the Inova QUANTA Lite LAVON IgG III DAYNA. Cardiolipin IgG values obtained with the different manufacturers' assay methods may not be used interchangeably. The magnitude of the reported IgG levels cannot be correlated to an endpoint titer. Performed By: #### L UPUSP ####[address] [place], [place] [phone] IgM Cardiolipin Ab. <9 Normal 0-11 [facility] Comment on above: Result Comment: <12 MPL Psjrrygb92-03 MPL Equivocal>40 MPL PositiveThe following results were obtained with the [employer] QUANTA Lite LAVON IgM III DAYNA. Cardiolipin IgM values obtained with different manufacturers' assay methods may not be used interchangeably. The magnitude of the reported IgM levels cannot be correlated to an endpoint titer. Performed By: #### L UPUSP ####[address] [phone] INR Coag RelTime (Bld) 1.1 {INR} Normal 0.9-1.3 [facility] Comment on above: Result Comment: Maya min K Antagonist (VKA) Therapeutic Range: INR 2 to 3 (Target INR of 2.5)Note: For patients treated with VKA drugs, such as warfarin, the [employer] 2012 Guideline recommends [...] al. Chest 2012, 141:7S-47SNishimura RA, et al. [facility] 2017, 70: 252-289 Performed By: #### L UPUSP ####[place] [place], [place] [phone] Interpretation (NOTE) Normal [facility] Comment on above: Result Comment: Perf orming [...] 74:1185 (1994). Performed By: #### L UPUSP ####[facility] [place], [place] [phone] PNP Negative Normal Negative [facility] Comment on above: Performed By: #### L UPUSP ####[address] [place] [place], [place] [phone] Protein mass conc g/dL Normal <20 [facility] Comment on above: Result Comment: < 20 [facility] Engjokoo83-27 SMU Low Positive> 80 [facility] High PositiveThese results were obtained with the [employer] QUANTA Lite B2 GPI IgM DAYNA. B2 GPI IgM values obtained with different manufacturers' assay methods may not be used interchangeably. The magnitude of the reported IgM levels cannot be correlated to an endpoint titer. Performed By: #### L UPUSP ####[address] [place], [place] [phone] PT Sec 11.2 sec Normal 9.7-13.0 [facility] Comment on above: Performed By: #### L UPUSP ####[facility] [place], [place] [phone] Thrombin Time 17.7 sec Normal <18.6 [facility] Comment on above: Performed By: #### L UPUSP ####[facility] [place], [place] [phone] Remote Abs Gran + CBC (for F HC use only)on 07-28-2018 Absol Gran Count 4.19 k/uL Normal 1.45-7.50 [facility] Erythrocyte distribution width Auto Ratio (RBC) 12.4 % Normal 11.5-15.0 [facility] Hematocrit Auto Volume Fraction (Bld) 38.5 % Normal 36.0-46.0 [facility] Hemoglobin mass conc (Bld) 12.5 g/dL Normal 11.5-15.5 [facility] MCH Auto Entitic mass (RBC) 31.1 pG Normal 26.0-34.0 [facility] MCHC Auto mass conc (RBC) 32.5 g/dL Normal 30.5-36.0 [facility] MCV Auto Entitic volume (RBC) 95.8 fL Normal 80.0-100.0 [facility] Platelet mean volume Auto Entitic volume (Bld) 11.1 fL Normal 9.0-12.7 [facility] Platelets Auto #/vol (Bld) 193 10*3/uL Normal 150-400 [facility] RBC Auto #/vol (Bld) 4.02 10*6/uL Normal 3.90-5.20 [facility] WBC Auto #/vol (Bld) 6.67 10*3/uL Normal 3.70-11.00 [facility] Dilute RVVTon 07-08-2018 DRVVT 1:1 Mix 36.2 sec Normal 32.7-46.7 [facility] Comment on above: Performed By: #### D RVVT ####[facility] [address] [place], [place] [phone] DRVVT Confirm Ratio 0.91 Normal <1.21 [facility] Comment on above: Performed By: #### D RVVT ####[address] [place] [place], [place] [phone] DRVVT Screen 36.1 sec Normal 32.7-46.7 [facility] Comment on above: Performed By: #### D RVVT ####[address] [phone] ROSANA Panel 1on 04-20-2018 ROSANA by EIA 0.4 OD Ratio Normal [facility] Comment on above: Result Comment: OD R atio is interpreted as follows:Negative <1.0Positive >=1.0 Performed By: #### W SR, PRCFUN, AT3ASY, PRSCLT, SERIMM, HOMCYS, IRON, FERR, B12, SERFOL, ANA1, HSCRP ####[facility] [place], [place] [phone] ROSANA by EIA, Qual Negative Normal Negative [facility] Comment on above: Performed By: #### W SR, PRCFUN, AT3ASY, PRSCLT, SERIMM, HOMCYS, IRON, FERR, B12, SERFOL, ANA1, HSCRP ####[place] [place], [place] [phone] Antithrombin Assayon 018 Antithrombin Assay 93 % Normal 84-138 [facility] Comment on above: Performed By: #### W SR, PRCFUN, AT3ASY, PRSCLT, SERIMM, HOMCYS, IRON, FERR, B12, SERFOL, ANA1, HSCRP ####[address] [phone] Comp Metabolic Panelon 04-20 Albumin mass conc 4.3 g/dL Normal 3.9-4.9 [facility] Comment on above: Performed By: #### W SR, PRCFUN, AT3ASY, PRSCLT, SERIMM, HOMCYS, IRON, FERR, B12, SERFOL, ANA1, HSCRP ####[place] [phone] ALP enzyme act/vol 98 U/L Normal 32-117 [facility] Comment on above: Performed By: #### W SR, PRCFUN, AT3ASY, PRSCLT, SERIMM, HOMCYS, IRON, FERR, B12, SERFOL, ANA1, HSCRP ####[place] [phone] ALT enzyme act/vol 13 U/L Normal 7-38 [facility] Comment on above: Performed By: #### W SR, PRCFUN, AT3ASY, PRSCLT, SERIMM, HOMCYS, IRON, FERR, B12, SERFOL, ANA1, HSCRP ####[place] [phone] Anion gap 3 molar conc 9 mmol/L Normal 9-18 [facility] Comment on above: Performed By: #### W SR, PRCFUN, AT3ASY, PRSCLT, SERIMM, HOMCYS, IRON, FERR, B12, SERFOL, ANA1, HSCRP ####[place] [phone] AST enzyme act/vol 14 U/L Normal 13-35 [facility] Comment on above: Performed By: #### W SR, PRCFUN, AT3ASY, PRSCLT, SERIMM, HOMCYS, IRON, FERR, B12, SERFOL, ANA1, HSCRP ####[place] [phone] Bilirubin mass conc 0.2 mg/dL Normal 0.2-1.3 [facility] Comment on above: Performed By: #### W SR, PRCFUN, AT3ASY, PRSCLT, SERIMM, HOMCYS, IRON, FERR, B12, SERFOL, ANA1, HSCRP ####[place] [phone] Calcium mass conc 9.2 mg/dL Normal 8.5-10.2 [facility] Comment on above: Performed By: #### W SR, PRCFUN, AT3ASY, PRSCLT, SERIMM, HOMCYS, IRON, FERR, B12, SERFOL, ANA1, HSCRP ####[place] [phone] Chloride molar conc 102 mmol/L Normal 97-105 [facility] Comment on above: Performed By: #### W SR, PRCFUN, AT3ASY, PRSCLT, SERIMM, HOMCYS, IRON, FERR, B12, SERFOL, ANA1, HSCRP ####[place] [phone] CO2 molar conc 28 mmol/L Normal 22-30 [facility] Comment on above: Performed By: #### W SR, PRCFUN, AT3ASY, PRSCLT, SERIMM, HOMCYS, IRON, FERR, B12, SERFOL, ANA1, HSCRP ####[place] [phone] Creatinine mass conc 0.96 mg/dL Normal 0.58-0.96 [facility] Comment on above: Performed By: #### W SR, PRCFUN, AT3ASY, PRSCLT, SERIMM, HOMCYS, IRON, FERR, B12, SERFOL, ANA1, HSCRP ####[place] [phone] eGFR- Amer. >60 Normal [facility] Comment on above: Performed By: #### W SR, PRCFUN, AT3ASY, PRSCLT, SERIMM, HOMCYS, IRON, FERR, B12, SERFOL, ANA1, HSCRP ####[address] [phone] GFR/1.73 sq M predicted among non-blacks MDRD vol rate/area (S/P/Bld) mL/min/{1.73_m2} Normal [facility] Comment on above: Result Comment: eGFR (Estimated [...] HOMCYS, IRON, FERR, B12, SERFOL, ANA1, HSCRP ####[place] [phone] Glucose mass conc 103 mg/dL High 74-99 [facility] Comment on above: Performed By: #### W SR, PRCFUN, AT3ASY, PRSCLT, SERIMM, HOMCYS, IRON, FERR, B12, SERFOL, ANA1, HSCRP ####[address] [phone] Potassium molar conc 3.9 mmol/L Normal 3.7-5.1 [facility] Comment on above: Performed By: #### W SR, PRCFUN, AT3ASY, PRSCLT, SERIMM, HOMCYS, IRON, FERR, B12, SERFOL, ANA1, HSCRP ####[address] [phone] Protein mass conc 7.2 g/dL Normal 6.3-8.0 [facility] Comment on above: Performed By: #### W SR, PRCFUN, AT3ASY, PRSCLT, SERIMM, HOMCYS, IRON, FERR, B12, SERFOL, ANA1, HSCRP ####[address] [place] [place], [place] [phone] Sodium molar conc 139 mmol/L Normal 136-144 [facility] Comment on above: Performed By: #### W SR, PRCFUN, AT3ASY, PRSCLT, SERIMM, HOMCYS, IRON, FERR, B12, SERFOL, ANA1, HSCRP ####[place] [place], [place] [phone] Urea nitrogen mass conc 14 mg/dL Normal 7-21 [facility] Comment on above: Performed By: #### W SR, PRCFUN, AT3ASY, PRSCLT, SERIMM, HOMCYS, IRON, FERR, B12, SERFOL, ANA1, HSCRP ####[address] [phone] Factor V Leiden PCRon 2017 FV Leiden Report (NOTE) Normal [facility] Comment on above: Result Comment: [facility] Pathologist: Alvina Sotomayor M.D., Ph.D.Factor [...] hybridization probes. Performed By: #### F VLEI ####[address] [place] [place], [place] [phone] Ferritinon 04-20-2018 Ferritin [Mass/volume] in Serum or Plasma 53.7 ng/mL Normal 14.7-205.1 [facility] Comment on above: Performed By: #### W SR, PRCFUN, AT3ASY, PRSCLT, SERIMM, HOMCYS, IRON, FERR, B12, SERFOL, ANA1, HSCRP ####[address] [place], [place] [phone] Folate, Serumon 04-20-2018 Folate [Mass/volume] in Serum or Plasma 10.0 ng/mL Normal >4.7 [facility] Comment on above: Performed By: #### W SR, PRCFUN, AT3ASY, PRSCLT, SERIMM, HOMCYS, IRON, FERR, B12, SERFOL, ANA1, HSCRP ####[place] [address] [place], [place] [phone] Homocysteineon 04-20-2018 Homocysteine 9.5 umol/L Normal <15.1 [facility] Comment on above: Performed By: #### W SR, PRCFUN, AT3ASY, PRSCLT, SERIMM, HOMCYS, IRON, FERR, B12, SERFOL, ANA1, HSCRP ####[place] [address] [place], [place] [phone] Immunoglobulins GAMon 2017 IgA mass conc 237 mg/dL Normal 78-391 [facility] Comment on above: Performed By: #### W SR, PRCFUN, AT3ASY, PRSCLT, SERIMM, HOMCYS, IRON, FERR, B12, SERFOL, ANA1, HSCRP ####[place] [address] [place], [place] [phone] IgG mass conc 1220 mg/dL Normal 717-1411 [facility] Comment on above: Performed By: #### W SR, PRCFUN, AT3ASY, PRSCLT, SERIMM, HOMCYS, IRON, FERR, B12, SERFOL, ANA1, HSCRP ####[place] [address] [place], [place] [phone] IgM mass conc 139 mg/dL Normal 53-334 [facility] Comment on above: Performed By: #### W SR, PRCFUN, AT3ASY, PRSCLT, SERIMM, HOMCYS, IRON, FERR, B12, SERFOL, ANA1, HSCRP ####[address] [phone] Iron and TIBCon 04-20-2018 Iron mass conc 36 ug/dL Low 41-186 [facility] Comment on above: Performed By: #### W SR, PRCFUN, AT3ASY, PRSCLT, SERIMM, HOMCYS, IRON, FERR, B12, SERFOL, ANA1, HSCRP ####[address] [phone] TIBC 271 ug/dL Normal 232-386 [facility] Comment on above: Performed By: #### W SR, PRCFUN, AT3ASY, PRSCLT, SERIMM, HOMCYS, IRON, FERR, B12, SERFOL, ANA1, HSCRP ####[address] [phone] Transferrin Saturatn 13 % Low 15-57 [facility] Comment on above: Performed By: #### W SR, PRCFUN, AT3ASY, PRSCLT, SERIMM, HOMCYS, IRON, FERR, B12, SERFOL, ANA1, HSCRP ####[address] [phone] LDon 04-20-2018 LD 197 U/L Normal 135-214 [facility] Comment on above: Performed By: #### W SR, PRCFUN, AT3ASY, PRSCLT, SERIMM, HOMCYS, IRON, FERR, B12, SERFOL, ANA1, HSCRP ####[address] [phone] Lupus Anticoag Panelon 04-20 aPTT Coag time (Bld) 26.7 s Normal 23.0-32.4 [facility] Comment on above: Result Comment: Unfr actionated [...] laboratory APTT reagent in use throughout the [facility]. Performed By: #### L UPUSP ####[address] [phone] aPTT Coag time (Bld) 32.4 s Normal <35.0 [facility] Comment on above: Performed By: #### L UPUSP ####[address] [phone] aPTT Coag time (Bld) 30.6 s Normal <33.2 [facility] Comment on above: Performed By: #### L UPUSP ####[address] [phone] aPTT Coag time (Bld) 33.0 s Normal 24.4-33.4 [facility] Comment on above: Result Comment: Resu lt rechecked. Performed By: #### L UPUSP ####[place] [phone] Beta2 Glycoprot IgG <9 Normal <20 [facility] Comment on above: Result Comment: < 20 SGU Zydbtxrg54-48 SGU Low Positive> 80 SGU High PositiveThese results were obtained with the [employer] QUANTA Lite B2 GPI IgG DAYNA. B2 GPI IgG values obtained with different manufacturers' assay methods may not be used interchangeably. The magnitude of the reported IgG levels cannot be correlated to an endpoint titer. Performed By: #### L UPUSP ####[address] [place], [place] [phone] DRVVT 1:1 Mix 41.3 sec Normal 32.7-46.7 [facility] Comment on above: Performed By: #### L UPUSP ####[address] [phone] DRVVT Confirm Ratio 1.06 Normal <1.21 [facility] Comment on above: Performed By: #### L UPUSP ####[address] [phone] DRVVT Screen 42.3 sec Normal 32.7-46.7 [facility] Comment on above: Performed By: #### L UPUSP ####[address] [phone] Hex Phase Confirm 47.7 sec Normal 41.8-54.9 [facility] Comment on above: Performed By: #### L UPUSP ####[address] [phone] Hex Phase Delta 6.7 delta sec Normal <9.1 [facility] Comment on above: Performed By: #### L UPUSP ####[address] [phone] Hex Phase Screen 54.5 sec Normal 45.0-59.9 [facility] Comment on above: Performed By: #### L UPUSP ####[address] [phone] IgA Cardiolipin Ab. <9 Normal 0-11 [facility] Comment on above: Result Comment: <12 APL [id number] APL Equivocal>40 APL PositiveThe following results were obtained with an Entelec Control SystemsA Lite LAVON IgA III DAYNA. Cardiolipin IgA values obtained with different manufacturers' assay methods may not be used interchangeably. The magnitude of the reported IgA levels cannot be correlated to an endpoint titer. Performed By: #### L UPUSP ####[address] [phone] IgG Cardiolipin Ab. <9 Normal 0-9 [facility] Comment on above: Result Comment: <10 GPL [id number] GPL Equivocal>40 GPL PositiveThe following results were obtained with the [employer] QUANTA Lite LAVON IgG III DAYNA. Cardiolipin IgG values obtained with the different manufacturers' assay methods may not be used interchangeably. The magnitude of the reported IgG levels cannot be correlated to an endpoint titer. Performed By: #### L UPUSP ####[address] [place], [place] [phone] IgM Cardiolipin Ab. 9 MPL Normal 0-11 [facility] Comment on above: Result Comment: <12 MPL Navahvhx13-32 MPL Equivocal>40 MPL PositiveThe following results were obtained with the [employer] QUANTA Lite LAVON IgM III DAYNA. Cardiolipin IgM values obtained with different manufacturers' assay methods may not be used interchangeably. The magnitude of the reported IgM levels cannot be correlated to an endpoint titer. Performed By: #### L UPUSP ####[facility] [place], [place] [phone] INR Coag RelTime (Bld) 1.0 {INR} Normal 0.9-1.3 [facility] Comment on above: Result Comment: Maya min K Antagonist (VKA) Therapeutic Range: INR 2 to 3 (Target INR of 2.5)Note: For patients treated with VKA drugs, such as warfarin, the [place] [employer] 2012 Guideline recommends [...] al. Chest 2012, 141:7S-47SNishjono RA, et al. JAC 2017, 70: 252-289 Performed By: #### L UPUSP ####[facility] [place], [place] [phone] Interpretation (NOTE) Normal [facility] Comment on above: Result Comment: Perf orming [...] 74:1185 (1994). Performed By: #### L UPUSP ####[facility] [place], [place] [phone] PNP Negative Normal Negative [facility] Comment on above: Performed By: #### L UPUSP ####[facility] [place], [place] [phone] Protein mass conc g/dL Normal <20 [facility] Comment on above: Result Comment: < 20 [facility]U [id number] SMU Low Positive> 80 [facility] High PositiveThese results were obtained with the [employer] Lite B2 GPI IgM DAYNA. B2 GPI IgM values obtained with different manufacturers' assay methods may not be used interchangeably. The magnitude of the reported IgM levels cannot be correlated to an endpoint titer. Performed By: #### L UPUSP ####[address] [phone] PT Sec 10.1 sec Normal 9.7-13.0 [facility] Comment on above: Performed By: #### L UPUSP ####[address] [phone] Thrombin Time 16.1 sec Normal <18.6 [facility] Comment on above: Performed By: #### L UPUSP ####[address] [phone] Protein C Functionalon 04-20 Protein mass conc 104 % Normal 76-147 [facility] Comment on above: Performed By: #### W SR, PRCFUN, AT3ASY, PRSCLT, SERIMM, HOMCYS, IRON, FERR, B12, SERFOL, ANA1, HSCRP ####[address] [phone] Protein S Clottableon 2017 Protein S Clottable 108 % Normal 59-131 [facility] Comment on above: Performed By: #### W SR, PRCFUN, AT3ASY, PRSCLT, SERIMM, HOMCYS, IRON, FERR, B12, SERFOL, ANA1, HSCRP ####[address] [phone] Prothrombin Gene PCRon 04-20 PT Gene Report (NOTE) Normal [facility] Comment on above: Result Comment: [facility] Pathologist: Alvina Sotomayor M.D., Ph.D.PT Gene Mutation Result: NORMALPT Gene Mutation Interpretation: The DNA sample is negative for [id number] point mutation in the 3' untranslated region of theprothrombin gene.This is not associated with an increased risk ofvenous thrombosis.Venous thrombosis is a multifactorial disorder, andother causes of venous thrombosis are not excluded.PT Gene Mutation Method: This assay was performed by polymerase chainreaction and fluorescence monitoring using hybridization probes. Performed By: #### P TAHMINA ####[facility] [address] [place], [place] [phone] Remote CBCDIF (for [facility] use o nly)on 04-20-2018 Abs Baso <0.03 Normal 0.00-0.10 [facility] Abs Ziebach 0.48 k/uL Normal 0.00-0.86 [facility] Abs Neut 3.86 k/uL Normal 1.45-7.50 [facility] Basophils/100 WBC Auto (Bld) 0.3 % Normal [facility] Eosinophils Auto #/vol (Bld) 0.09 10*3/uL Normal 0.00-0.45 [facility] Eosinophils/100 WBC Auto (Bld) 1.4 % Normal [facility] Erythrocyte distribution width Auto Ratio (RBC) 11.9 % Normal 11.5-15.0 [facility] Hematocrit Auto Volume Fraction (Bld) 37.0 % Normal 36.0-46.0 [facility] Hemoglobin mass conc (Bld) 12.6 g/dL Normal 11.5-15.5 [facility] Lymphocytes Auto #/vol (Bld) 2.07 10*3/uL Normal 1.00-4.00 [facility] Lymphocytes/100 WBC Auto (Bld) 31.7 % Normal [facility] MCH Auto Entitic mass (RBC) 33.2 pG Normal 26.0-34.0 [facility] MCHC Auto mass conc (RBC) 34.1 g/dL Normal 30.5-36.0 [facility] MCV Auto Entitic volume (RBC) 97.4 fL Normal 80.0-100.0 [facility] Monocytes/100 WBC Auto (Bld) 7.4 % Normal [facility] Neutrophils/100 WBC Auto (Bld) 59.2 % Normal [facility] Platelet mean volume Auto Entitic volume (Bld) 10.7 fL Normal 9.0-12.7 [facility] Platelets Auto #/vol (Bld) 226 10*3/uL Normal 150-400 [facility] RBC Auto #/vol (Bld) 3.80 10*6/uL Low 3.90-5.20 [facility] WBC Auto #/vol (Bld) 6.52 10*3/uL Normal 3.70-11.00 [facility] Sed Rate Westergrenon 2017 Sed Rate Westergren 15 mm/hr Normal 0-20 [facility] Comment on above: Performed By: #### W SR, PRCFUN, AT3ASY, PRSCLT, SERIMM, HOMCYS, IRON, FERR, B12, SERFOL, ANA1, HSCRP ####[address] [phone] Ultra-sensitive CRPon 2017 Protein mass conc 11.1 mg/L High <3.1 [facility] Comment on above: Result Comment: (NOT E)hsCRP < 1.0 mg/L, relative risk is lowhsCRP 1.0-3.0 mg/L, relative risk is averagehsCRP > 3.0 mg/L, relative risk is highReference:Trevin TA, Salvador GA, Raman RW, et al. Markers of Inflammationand Cardiovascular Disease. Application to Clinical and PublicHealth Practice. A Statement for Healthcare Professionals From theMetrohealth Cleveland Heights Medical Centerers for Disease Control and Prevention and the [place] [employer]. Circulation 2003;107:499-511. Performed By: #### W SR, PRCFUN, AT3ASY, PRSCLT, SERIMM, HOMCYS, IRON, FERR, B12, SERFOL, ANA1, HSCRP ####[facility] [place], [place] [phone] Vitamin B12on 04-20-2018 Cobalamin (Vitamin B12) mass conc 445 pg/mL Normal 232-1245 [facility] Comment on above: Performed By: #### W SR, PRCFUN, AT3ASY, PRSCLT, SERIMM, HOMCYS, IRON, FERR, B12, SERFOL, ANA1, HSCRP ####[facility] [place], [place] [phone] CNOVSPon 04-15-2018 [facility] Visit (SP) Office (HEMACL) AZUL ONTIVEROS ([id number]) 1990 FDate Time Provider Department04/15/18 3:15 PM LATASHA HU HEMACL During your visit today, we recorded the following information about you: Temperature Pulse Respiration Blood pressure 98.8 degrees 82/minute 16/minute 130/83 Weight Height 118.3 kg 1.524 Arun Alaneder 04/15/2018 3:44 PM SignedPt states that she has been having some abdominal cramping for about 2-3 yearsnow. 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) (primaryencounter diagnosis)Mildly elevated dilute Idalia viper venom time in a otherwise dtxhcuk16-idgs-kwe female with no history suggestive of bleeding [...] considered for referral to hematologic subspecialist at [facility].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.We'll also check for lupus screen with an ROSANA.Mild anemiaWe'll check iron studies, B-12, folate, sedimentation rate.Visit (SP) Office on 04/15/18-FACTOR V LEIDEN/PCR-PROTHROMBIN GENE PCR-PROTEIN S CLOTTABLE-PROTEIN C FUNCT-ANTITHROMBIN III-LUPUS ANTICOAG PL-B 2 GPI IGG AND YEC-ULTJ-ZMVMPQRHDDD GZ-RHMKJSQOLCQS-KGW PANEL BLOOD SCRN-IRON + TIBC-FERRITIN BLD-VITAMIN B12 BLOOD-FOLATE SERUM-IMMUNOGLOBULINS YUSRA-LD LACTATE DEHYDRO-SED RATE KMIYNMRUGP-L-ROZZLDJX ULTRA SEN-ACTIVATED PTT-PROTHROMBIN TIME/PT-CBC + DIFF (FOR REMOTE [facility] USE)-COMP METABOLIC PANEL-ACTIVATED PTT-PROTHROMBIN TIME/PT-B 2 GPI IGG AND FKT-IEHC-SAXCMZZZJQF AB-LUPUS ANTICOAG PL Return in about 4 [...] of midol and excedrin. She works [employer] in [employer].Her mother has a history of cervical cancer [...] and myrecommendations listed below. The patient Azul Llanos Rednileshdeja verbalizedunderstanding and agreed with these recommendations and plan. I answered allquestions satisfactorily..Rowdy Hu D.O.Medical OncologistE[place], [place]Referring Provider: CHAY CASTRO [[id number]]Allergies As of Date: 04/15/2018 Noted Allergy ReactionIODINE 04/15/2018 2 - RashDate Reviewed: 04/15/2018Reviewed by: Zee Mills - Fully AssessedReason for Visit: Consult [173] Cmt: Abnormal labsPrimary Visit Diagnosis: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) [R79.1]Order(s):FACTOR V LEIDEN/PCR [SQFVLEID] Order #: [id number] FUTURE PROTHROMBIN GENE PCR [SQPTGENE] Order #: [id number] FUTURE PROTEIN S CLOTTABLE [SQPRSCLT] Order #: [id number] FUTURE PROTEIN C FUNCT [SQPRCFUN] Order #: [id number] FUTURE ANTITHROMBIN III [HLSE4SHR] Order #: [id number] FUTURE LUPUS ANTICOAG PL [SQLUPUSP] Order #: [id number] FUTURE B 2 GPI IGG AND IGM [HZP6GGMF] Order #: [id number] FUTURE ANTI-CARDIOLIPIN AB [SQCARDIO] Order #: [id number] FUTURE HOMOCYSTEINE [SQHOMCYS] Order #: [id number] FUTURE ROSANA PANEL BLOOD SCRN [SQANA1] Order #: [id number] FUTURE IRON + TIBC [SQIRON] Order #: [id number] FUTURE FERRITIN BLD [SQFERR] Order #: [id number] FUTURE VITAMIN B12 BLOOD [SQB12] Order #: [id number] FUTURE FOLATE SERUM [SQSERFOL] Order #: [id number] FUTURE IMMUNOGLOBULINS YURSA [SQSERIMM] Order #: [id number] FUTURE LD LACTATE DEHYDRO [SQLD6] Order #: [id number] FUTURE SED RATE WESTERGREN [SQWSR] Order #: [id number] FUTURE C-REACTIVE ULTRA SEN [SQHSCRP] Order #: [id number] FUTURE ACTIVATED PTT [SQPTT] Order #: [id number] FUTURE PROTHROMBIN TIME/PT [SQPT] Order #: [id number] FUTURE CBC + DIFF (FOR REMOTE [facility] USE) [SQRCBCDF] Order #: [id number] FUTURE COMP METABOLIC PANEL [SQCMP] Order #: [id number] FUTURE ACTIVATED PTT [SQPTT] Order #: [id number] FUTURE PROTHROMBIN TIME/PT [SQPT] Order #: [id number] FUTURE B 2 GPI IGG AND IGM [OJV5EGFX] Order #: [id number] FUTURE ANTI-CARDIOLIPIN AB [SQCARDIO] Order #: [id number] FUTURE LUPUS ANTICOAG PL [SQLUPUSP] Order #: [id number] FUTUREDisposition: Return in about 4 months (around [...] states that she has always had headaches.Zee Ed Status:Closed by LATASHA HU DO on 04/19/18 Normal [facility] PROGRESSon 04-15-2018 Protein mass conc HNO ID: [id number] thor: Latasha HuSer: (none)Author Type: PhysicianType: Progress NotesFiled: 04/19/2018 9:38 AMNote Text:PATIENT NAME: Azul Llanos EtzwilerMRN: [id number] PHYSICIAN: Chay Castro DO[address] [address]EANZMAV CARE PHYSICIAN: No primary care provider on file.OTHER PHYSICIANS:CHIEF COMPLAINT: 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)ASSESSMENT/PLAN: (R79.1) 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) (primaryencounter diagnosis)Mildly elevated dilute Idalia viper venom time in a otherwise nkvizce44-tibb-ejo female with no history suggestive of bleeding [...] considered for referral to hematologic subspecialist at [facility].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.We'll also check for lupus screen with an ROSANA.Mild anemiaWe'll check iron studies, B-12, folate, sedimentation rate.Visit (SP) Office on 04/15/18-FACTOR V LEIDEN/PCR-PROTHROMBIN GENE PCR-PROTEIN S CLOTTABLE-PROTEIN C FUNCT-ANTITHROMBIN III-LUPUS ANTICOAG PL-B 2 GPI IGG AND KQA-HZFI-EYDKJAOCQQD SR-AWKKUNSFZBMI-HYB PANEL BLOOD SCRN-IRON + TIBC-FERRITIN BLD-VITAMIN B12 BLOOD-FOLATE SERUM-IMMUNOGLOBULINS YUSRA-LD LACTATE DEHYDRO-SED RATE DWALFIKZBW-R-UREJWCGL ULTRA SEN-ACTIVATED PTT-PROTHROMBIN TIME/PT-CBC + DIFF (FOR REMOTE [facility] USE)-COMP METABOLIC PANEL-ACTIVATED PTT-PROTHROMBIN TIME/PT-B 2 GPI IGG AND YGW-SWJJ-QFAINXTSVPO AB-LUPUS ANTICOAG PL Return in about 4 [...] HGSIL. 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 She takes a lot of midol and excedrin. 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[place].Her mother has a history of cervical cancer [...] plan.I answered all questions satisfactorily..Rowdy Hu D.O.Medical OncologistSummit Pacific [facility] Vital Signs Date Time Vital Sign Value Performing Clinician Hedy miller 01-12-2025 13:44-0400 Body mass index (BMI) [Ratio] 46.64 kg/m2 Chay Matthew DO Work Phone: [facility] 01-12-2025 13:44-0400 Body weight 115.67 kg Chay Matthew DO Work Phone: [facility] 01-12-2025 13:44-0400 Diastolic blood pressure 78 mm[Hg] Chay Matthew DO Work Phone: [facility] 01-12-2025 13:44-0400 Systolic blood pressure 118 mm[Hg] Chay Matthew DO Work Phone: [facility] 01-03-2025 10:53-0400 Body mass index (BMI) [Ratio] 46.3 kg/m2 Chay Matthew DO Work Phone: [facility] 01-03-2025 10:53-0400 Body weight 114.81 kg Chay Matthew DO Work Phone: [facility] 01-03-2025 10:53-0400 Diastolic blood pressure 78 mm[Hg] Chay Matthew DO Work Phone: [facility] 01-03-2025 10:53-0400 Systolic blood pressure 116 mm[Hg] Chay Matthew DO Work Phone: [facility] 09-17-2024 08:04-0500 Body height 157.5 cm Sarahy Burns MD Work Phone: [facility] 09-17-2024 08:04-0500 Body mass index (BMI) [Ratio] 47.92 kg/m2 Sarahy Burns MD Work Phone: [facility] 09-17-2024 08:04-0500 Body weight 118.84 kg Sarahy Burns MD Work Phone: [facility] 09-17-2024 08:04-0500 Diastolic blood pressure 77 mm[Hg] Sarahy Burns MD Work Phone: [facility] 09-17-2024 08:04-0500 Heart rate 87 /min Sarahy Burns MD Work Phone: [facility] 09-17-2024 08:04-0500 Systolic blood pressure 115 mm[Hg] Sarahy Burns MD Work Phone: [facility] 08-17-2024 08:22-0500 Body height 157.5 cm Tez Dolce DPM FACFA S Work Phone: [facility] 08-17-2024 08:22-0500 Body mass index (BMI) [Ratio] 48.1 kg/m2 Tez Dolce DPM FACFAS Work Phone: [facility] 08-17-2024 08:22-0500 Body weight 119.3 kg Tez Dolce DPM FACFA S Work Phone: [facility] 08-17-2024 08:22-0500 Diastolic blood pressure 69 mm[Hg] Tez Dolce DPM FACFAS Work Phone: [facility] 08-17-2024 08:22-0500 Heart rate 84 /min Tez Dolce DPM FACFA S Work Phone: [facility] 08-17-2024 08:22-0500 Systolic blood pressure 128 mm[Hg] Tez Dolce DPM FACFAS Work Phone: [facility] 07-28-2024 11:42-0500 Body height 157.5 cm Tez Angel MD Work Phone: [facility] 07-28-2024 11:42-0500 Body mass index (BMI) [Ratio] 48.1 kg/m2 Tez Angel MD Work Phone: [facility] 07-28-2024 11:42-0500 Body temperature 96.6 [degF] Tez Angel MD Work Phone: [facility] 07-28-2024 11:42-0500 Body weight 119.3 kg Tez Angel MD Work Phone: [facility] 07-28-2024 11:42-0500 Diastolic blood pressure 68 mm[Hg] Tez Angel MD Work Phone: [facility] 07-28-2024 11:42-0500 Heart rate 116 /min Tez Angel MD Work Phone: [facility] 07-28-2024 11:42-0500 Respiratory rate 20 /min Tez Angel MD Work Phone: [facility] 07-28-2024 11:42-0500 SaO2% (BldA) [Mass fraction] 98 % Tez Angel MD Work Phone: [facility] 07-28-2024 11:42-0500 Systolic blood pressure 126 mm[Hg] Tez Angel MD Work Phone: [facility] 07-05-2024 18:55-0400 Heart rate 103 /min Alexx Pena [facility] 07-05-2024 18:55-0400 Respiratory rate 18 /min Alexx Pena [facility] 07-05-2024 18:55-0400 SaO2% (BldA) [Mass fraction] 99 % Alexx Pena [facility] 07-05-2024 17:09-0400 Body temperature 98.06 [degF] Alexx Pena [facility] 07-05-2024 17:09-0400 Diastolic blood pressure 97 mm[Hg] Alexx Pena [facility] 07-05-2024 17:09-0400 Heart rate 119 /min Alexx Pena [facility] 07-05-2024 17:09-0400 Respiratory rate 18 /min Alexx Pena [facility] 07-05-2024 17:09-0400 SaO2% (BldA) [Mass fraction] 98 % Alexx Pena [facility] 07-05-2024 17:09-0400 Systolic blood pressure 131 mm[Hg] Alexx Pena [facility] 06-27-2024 12:10-0400 Blood Pressure Location CHRISTOPHER MARRUFOTIZ [facility] 06-27-2024 12:10-0400 Body temperature 96.8 [degF] CHRISTOPHER MASTERS [facility] 06-27-2024 12:10-0400 Diastolic blood pressure 80 mm[Hg] SUMNER MASTERS [facility] 06-27-2024 12:10-0400 Heart rate 111 /min SUMNER MASTERS [facility] 06-27-2024 12:10-0400 SaO2% (BldA) [Mass fraction] 99 % SUMNER MASTERS [facility] 06-27-2024 12:10-0400 Systolic blood pressure 120 mm[Hg] SUMNER MASTERS [facility] 10-25-2023 16:49-0500 Diastolic blood pressure 78 mm[Hg] Alexx Pena [facility] 10-25-2023 16:49-0500 Heart rate 74 /min Alexx Pena [facility] 10-25-2023 16:49-0500 Mean blood pressure 97 mm[Hg] Alexx Pena [facility] 10-25-2023 16:49-0500 Respiratory rate 18 /min Alexx Jean [facility] 10-25-2023 16:49-0500 SaO2% (BldA) [Mass fraction] 100 % Alexx Jean [facility] 10-25-2023 16:49-0500 Systolic blood pressure 134 mm[Hg] Alexx Jean [facility] 10-25-2023 16:30-0500 Hourly Rounding Alexx Jean [facility] 10-25-2023 16:30-0500 Promise to Return Alexx Jean [facility] 10-25-2023 16:00-0500 Diastolic blood pressure 82 mm[Hg] Alexx Jean [facility] 10-25-2023 16:00-0500 Heart rate 81 /min Alexx Jean [facility] 10-25-2023 16:00-0500 SaO2% (BldA) [Mass fraction] 94 % Alexx Jean [facility] 10-25-2023 16:00-0500 Systolic blood pressure 127 mm[Hg] Alexx Jean [facility] 10-25-2023 15:28-0500 Hourly Rounding Alexx Jean [facility] 10-25-2023 15:28-0500 Promise to Return Alexx Jean [facility] 10-25-2023 15:02-0500 Diastolic blood pressure 138 mm[Hg] Alexx Jean [facility] 10-25-2023 15:02-0500 Heart rate 94 /min Alexx Jean [facility] 10-25-2023 15:02-0500 Mean blood pressure 142 mm[Hg] Alexx Pena [facility] 10-25-2023 15:02-0500 Respiratory rate 18 /min Alexx Pena [facility] 10-25-2023 15:02-0500 SaO2% (BldA) [Mass fraction] 99 % Alexx Pena [facility] 10-25-2023 15:02-0500 Systolic blood pressure 150 mm[Hg] Alexx Pena [facility] 10-25-2023 14:20-0500 Body temperature 98.24 [degF] Alexx Pena [facility] 10-25-2023 14:20-0500 Heart rate 112 /min Alexx Pena [facility] 10-20-2023 15:33-0500 Blood Pressure Location Glenn Gupta [facility] 10-20-2023 15:33-0500 Diastolic blood pressure 84 mm[Hg] Glenn Candy [facility] 10-20-2023 15:33-0500 Heart rate 95 /min Glenn Candy [facility] 10-20-2023 15:33-0500 SaO2% (BldA) [Mass fraction] 98 % Glenn Candy [facility] 10-20-2023 15:33-0500 Systolic blood pressure 117 mm[Hg] Glenn Pakerson [facility] 08-15-2023 09:18-0500 Blood Pressure Location Alexx Gupta [facility] [place] 08-15-2023 09:18-0500 Diastolic blood pressure 76 mm[Hg] Alexx Mourany [facility] [place] 08-15-2023 09:18-0500 Heart rate 92 /min Alexx Mourany [facility] [place] 08-15-2023 09:18-0500 Respiratory rate 16 /min Alexx Mourany [facility] [place] 08-15-2023 09:18-0500 Systolic blood pressure 119 mm[Hg] Alexx Mourany [facility] 08-12-2023 11:20-0500 Body temperature 98.06 [degF] Alexx Mourany [facility] 08-12-2023 11:20-0500 Diastolic blood pressure 90 mm[Hg] Alexx Mourany [facility] 08-12-2023 11:20-0500 Heart rate 114 /min Alexx Mourany [facility] 08-12-2023 11:20-0500 Systolic blood pressure 137 mm[Hg] Alexx Mourany [facility] 08-11-2023 13:20-0500 Diastolic blood pressure 85 mm[Hg] Glenn Gupta [facility] 08-11-2023 13:20-0500 Heart rate 100 /min Glenn Gupta [facility] 08-11-2023 13:20-0500 SaO2% (BldA) [Mass fraction] 100 % Glenn Gupta [facility] 08-11-2023 13:20-0500 Systolic blood pressure 140 mm[Hg] Glenn Gupta [facility] 08-06-2023 11:15-0500 Heart rate 77 /min Alexx Mourany [facility] 08-06-2023 11:15-0500 SaO2% (BldA) [Mass fraction] 97 % Alexx Mourany [facility] 08-06-2023 11:15-0500 Respiratory rate 16 /min Alexx Mourany [facility] 08-06-2023 11:14-0500 Diastolic blood pressure 87 mm[Hg] Alexx Mourany [facility] 08-06-2023 11:14-0500 Mean blood pressure 98 mm[Hg] Alexx Mourany [facility] 08-06-2023 11:14-0500 Systolic blood pressure 118 mm[Hg] Alexx Mourany [facility] 08-06-2023 09:59-0500 Heart rate 79 /min Alexx Mourany [facility] 08-06-2023 09:59-0500 SaO2% (BldA) [Mass fraction] 94 % Alexx Mourany [facility] 08-06-2023 09:59-0500 Diastolic blood pressure 82 mm[Hg] Alexx Mourany [facility] 08-06-2023 09:59-0500 Mean blood pressure 98 mm[Hg] Alexx Mourany [facility] 08-06-2023 09:59-0500 Systolic blood pressure 129 mm[Hg] Alexx Mourany [facility] 08-06-2023 09:59-0500 Respiratory rate 16 /min Alexx Mourany [facility] 08-06-2023 09:50-0500 Blood Pressure Location Alexx Mourany [facility] 08-06-2023 09:50-0500 Body temperature 98.06 [degF] Alexx Mourany [facility] 08-06-2023 09:50-0500 Diastolic blood pressure 92 mm[Hg] Alexx Mourany [facility] 08-06-2023 09:50-0500 Heart rate 80 /min Alexx Mourany [facility] 08-06-2023 09:50-0500 Mean blood pressure 103 mm[Hg] Alexx Mourany [facility] 08-06-2023 09:50-0500 Respiratory rate 20 /min Alexx Mourany [facility] 08-06-2023 09:50-0500 SaO2% (BldA) [Mass fraction] 93 % Alexx Mourany [facility] 08-06-2023 09:50-0500 Systolic blood pressure 124 mm[Hg] Alexx Mourany [facility] 08-06-2023 09:40-0500 Blood Pressure Location Alexx Mourany [facility] 08-06-2023 09:40-0500 Mean blood pressure 100 mm[Hg] Alexx Mourany [facility] 08-06-2023 09:40-0500 Respiratory rate 20 /min Alexx Mourany [facility] 08-06-2023 09:35-0500 Blood Pressure Location Alexx Mourany [facility] 08-06-2023 09:35-0500 Mean blood pressure 102 mm[Hg] Alexx Mourany [facility] 08-06-2023 09:35-0500 Respiratory rate 24 /min Alexx Mourany [facility] 08-06-2023 09:20-0500 Respiratory rate 19 /min Alexx Mourany [facility] 08-06-2023 06:11-0500 Mean blood pressure 79 mm[Hg] Alexx Mourany [facility] 08-06-2023 06:11-0500 Heart rate 84 /min Alexx Mourany [facility] 08-06-2023 06:08-0500 Body temperature 97.88 [degF] Alexx Mourany [facility] 07-25-2023 09:28-0500 Blood Pressure Location Alexx Mourany [facility] 07-25-2023 09:28-0500 Diastolic blood pressure 74 mm[Hg] Alexx Mourany [facility] 07-25-2023 09:28-0500 Heart rate 86 /min Alexx Mourany [facility] 07-25-2023 09:28-0500 Mean blood pressure 89 mm[Hg] Alexx Mourany [facility] 07-25-2023 09:28-0500 Systolic blood pressure 120 mm[Hg] Alexx Mourany [facility] 07-25-2023 09:28-0500 Heart rate 78 /min Alexx Mourany [facility] 07-25-2023 09:28-0500 SaO2% (BldA) [Mass fraction] 99 % Alexx Mourany [facility] 07-25-2023 09:28-0500 Respiratory rate 18 /min Alexx Mourany [facility] 07-25-2023 09:27-0500 Blood Pressure Location Alexx Gavinourany [facility] 07-25-2023 09:27-0500 Body temperature 97.88 [degF] Alexx Manciaurany [facility] 07-25-2023 09:27-0500 Diastolic blood pressure 83 mm[Hg] Alexx Manciaurany [facility] 07-25-2023 09:27-0500 Mean blood pressure 97 mm[Hg] Alexx Manciaurany [facility] 07-25-2023 09:27-0500 Systolic blood pressure 125 mm[Hg] Alexx Manciaurany [facility] 07-21-2023 14:40-0500 Diastolic blood pressure 81 mm[Hg] Alexx Leroyy [facility] 07-21-2023 14:40-0500 Heart rate 93 /min Alexx Leroyy [facility] 07-21-2023 14:40-0500 Systolic blood pressure 121 mm[Hg] Alexx Leroyy [facility] 07-08-2023 13:57-0400 Blood Pressure Location Melissa Nunez [facility] 07-08-2023 13:57-0400 Body temperature 96.98 [degF] Melissa Nunez [facility] 07-08-2023 13:57-0400 Diastolic blood pressure 74 mm[Hg] Melissa Castillometz [facility] 07-08-2023 13:57-0400 Heart rate 87 /min Melissa Nunez [facility] 07-08-2023 13:57-0400 Respiratory rate 16 /min Melissa Nunez [facility] 07-08-2023 13:57-0400 Systolic blood pressure 111 mm[Hg] Melissa Nunez [facility] 06-23-2023 12:53-0400 Diastolic blood pressure 68 mm[Hg] Alexx Pena [facility] 06-23-2023 12:53-0400 Heart rate 79 /min Alexx Jean [facility] 06-23-2023 12:53-0400 Mean blood pressure 76 mm[Hg] Alexx Jean [facility] 06-23-2023 12:53-0400 Respiratory rate 24 /min Alexx Dolle [facility] 06-23-2023 12:53-0400 SaO2% (BldA) [Mass fraction] 100 % Alexx Jean [facility] 06-23-2023 12:53-0400 Systolic blood pressure 91 mm[Hg] Alexx Jean [facility] 06-23-2023 12:30-0400 Diastolic blood pressure 66 mm[Hg] Alexx Jean [facility] 06-23-2023 12:30-0400 Heart rate 81 /min Alexx Jean [facility] 06-23-2023 12:30-0400 Mean blood pressure 78 mm[Hg] Alexx Jean [facility] 06-23-2023 12:30-0400 Respiratory rate 13 /min Alexx Jean [facility] 06-23-2023 12:30-0400 SaO2% (BldA) [Mass fraction] 100 % Alexx Dolle [facility] 06-23-2023 12:30-0400 Systolic blood pressure 102 mm[Hg] Alexx Jean [facility] 06-23-2023 12:00-0400 Diastolic blood pressure 67 mm[Hg] Alexx Jean [facility] 06-23-2023 12:00-0400 Heart rate 70 /min Alexx Ejan [facility] 06-23-2023 12:00-0400 Mean blood pressure 83 mm[Hg] Alexx Jean [facility] 06-23-2023 12:00-0400 SaO2% (BldA) [Mass fraction] 99 % Alexx Jean [facility] 06-23-2023 12:00-0400 Systolic blood pressure 115 mm[Hg] Alexx Jean [facility] 06-23-2023 09:50-0400 Respiratory rate 20 /min Alexx Jean [facility] 06-23-2023 09:23-0400 Body temperature 98.24 [degF] Alexx Jean [facility] 06-23-2023 09:23-0400 Heart rate 81 /min Alexx Jean [facility] 06-23-2023 09:23-0400 Respiratory rate 16 /min Alexx Jean [facility] 09-14-2022 10:30-0500 Body height 157.48 cm Thania Trevizo Other [facility] Other 09-14-2022 10:30-0500 Body mass index (BMI) [Ratio] 49.74 kg/m2 Thania Pughmond Other [facility] Other 09-14-2022 10:30-0500 Body temperature 97.7 [degF] Thania Joseline Other [facility] Other 09-14-2022 10:30-0500 Body weight 123.38 kg Thania Joseline Other [facility] Other 09-14-2022 10:30-0500 Diastolic blood pressure 97 mm[Hg] Thania Joseline Other [facility] Other 09-14-2022 10:30-0500 Respiratory rate 18 /min Thania Pughmond Other [facility] Other 09-14-2022 10:30-0500 SaO2% (BldA) [Mass fraction] 100 % Thania Trevizo Other [facility] Other 09-14-2022 10:30-0500 Systolic blood pressure 140 mm[Hg] Thania Trevizo Other [facility] Other 05-31-2022 16:10-0400 Body height 157.48 cm Mayra Astorga Other [facility] Other 05-31-2022 16:10-0400 Body mass index (BMI) [Ratio] 48.98 kg/m2 Mayra Astorga Other [facility] Other 05-31-2022 16:10-0400 Body temperature 97.9 [degF] Mayra Astorga Other [facility] Other 05-31-2022 16:10-0400 Body weight 121.47 kg Mayra Astorga Other [facility] Other 05-31-2022 16:10-0400 Diastolic blood pressure 84 mm[Hg] Mayra Astorga Other [facility] Other 05-31-2022 16:10-0400 Respiratory rate 18 /min Mayra Astorga Other [facility] Other 05-31-2022 16:10-0400 SaO2% (BldA) [Mass fraction] 99 % Mayra Astorga Other [facility] Other 05-31-2022 16:10-0400 Systolic blood pressure 129 mm[Hg] Mayra Astorga Other [facility]on Other Encounters Encounter Date Encounter Type Care Provider Facility Start: 01-17-2025 End: 01-17-2025 ambulatory CHAY MATTHEW Not Available Start: 01-12-2025 End: 01-12-2025 Office outpatient visit 15 minutes Chay Matthew DO Work Phone: [facility] Comment on above: Pre-op examination; Pelvic pain in female; H/O: hysterectomy Start: 01-12-2025 End: 01-12-2025 Preprocedural examination done Chay Matthew DO Work Phone: [facility] Start: 01-12-2025 End: 01-12-2025 ambulatory CHAY MATTHEW Not Available Start: 01-03-2025 End: 01-03-2025 Bamboo flowsheet Chay Matthew DO Work Phone: [facility] Start: 01-03-2025 End: 01-03-2025 Bamboo flowsheet Chay Matthew DO Work Phone: [facility] Start: 01-03-2025 End: 01-03-2025 Office outpatient visit 15 minutes Chay Matthew DO Work Phone: [facility] Comment on above: Pelvic pain in femal e Start: 01-03-2025 End: 01-03-2025 ambulatory CHAY MATTHEW Not Available Start: 12-27-2024 End: 12-28-2024 Refill Tez Angel MD Work Phone: [facility] Comment on above: Mild recurrent major depression (HCC) (CMS/HCC); Bilateral leg edema; MARGARETH (generalized anxiety disorder) (CMS/HCC); Gastro-esophageal reflux disease without esophagitis Start: 11-12-2024 End: 11-12-2024 ambulatory SARAHY H TIMMIS Not Available Start: 11-03-2024 End: 11-03-2024 ambulatory SARAHY H TIMMIS Not Available Start: 11-02-2024 End: 11-02-2024 Refill Tez Angel MD Work Phone: [facility] Comment on above: Ocular migraine (CMS /HCC) Start: 10-29-2024 End: 11-03-2024 Clinisync Result Encounter Sarahy Burns MD Work Phone: [facility] Unsolicited Start: 10-29-2024 End: 11-03-2024 Clinisync Result Encounter Sarahy Burns MD Work Phone: [facility] Unsolicited Start: 10-29-2024 End: 10-29-2024 ambulatory Sarahy H Timmis Facility:[facility] Start: 10-29-2024 End: 10-29-2024 Patient encounter procedure Sarahy Burns [facility] Start: 09-17-2024 End: 09-17-2024 Bamboo flowsheet Sarahy Burns MD Work Phone: [facility] Start: 09-17-2024 End: 09-17-2024 Bamboo flowsheet Sarahy Burns MD Work Phone: [facility] Start: 09-17-2024 End: 09-17-2024 Office outpatient new 45 minutes Sarahy Burns MD Work Phone: [facility] Comment on above: Chronic rhinosinusit is Start: 09-17-2024 End: 09-17-2024 ambulatory SARAHY BURNS Not Available Start: 08-17-2024 End: 08-17-2024 Bamboo flowsheet Tez D Dolce DPM FACFAS Work Phone: [facility] Start: 08-17-2024 End: 08-17-2024 Bamboo flowsheet Tez D Dolce DPM FACFAS Work Phone: [facility] Start: 08-17-2024 End: 08-17-2024 ambulatory TEZ D DOLCE Not Available Start: 08-17-2024 End: 08-17-2024 Office outpatient new 30 minutes Tez D Dolce DPM FACFAS Work Phone: [facility] Comment on above: Closed displaced fra cture of proximal phalanx of lesser toe of right foot, initial encounter (Primary Dx); Right foot pain; Contusion of right foot, initial encounter Start: 07-28-2024 End: 07-28-2024 Office outpatient visit 15 minutes Tez Angel MD Work Phone: [facility] Comment on above: Chronic rhinosinusit is (Primary Dx) Start: 07-28-2024 End: 07-28-2024 Refill Tez Angel MD Work Phone: [facility] Comment on above: Vitamin D deficiency , unspecified Start: 07-05-2024 End: 07-05-2024 Emergency department patient visit Alexx Pena [facility] Start: 07-02-2024 End: 07-02-2024 Orders Only Tez Angel MD Work Phone: [facility] Comment on above: MARGARETH (generalized anx iety disorder) ([facility] Start: 06-27-2024 End: 06-27-2024 ambulatory CHRISTOPHER MASTERS Facility:[facility] Start: 06-27-2024 End: 06-27-2024 Patient encounter procedure CHRISTOPHER MARRUFOTIZ [facility] Start: 04-09-2024 End: 04-09-2024 ambulatory TEZ ANGEL Not Available Start: 01-27-2024 End: 01-27-2024 ambulatory TEZ ANGEL Not Available Start: 11-24-2023 End: 11-25-2023 ambulatory Heather Antunez MD Facility: [place] Start: 10-25-2023 End: 10-25-2023 Emergency department patient visit Alexx Pena [facility] Start: 10-22-2023 Refill Florecita Figueroa [facility] Comment on above: 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); Edema of both legs Start: 10-20-2023 End: 10-20-2023 ambulatory Glenn Gupta Facility:[facility] Start: 10-20-2023 End: 10-20-2023 Patient encounter procedure Glenn Gupta [facility] Start: 10-01-2023 End: 10-01-2023 ambulatory Tez Angel Facility:[facility] Start: 10-01-2023 End: 10-01-2023 ambulatory MD Tez Angel Work Phone: [facility] Work Phone: Start: 10-01-2023 End: 10-01-2023 Departed Referred MD Tez Angel Work Phone: [facility] Start: 09-17-2023 End: 09-17-2023 ambulatory Glenn Gupta Facility:[facility] Start: 09-17-2023 End: 09-17-2023 Patient encounter procedure Glenn Gupta [facility] Start: 08-15-2023 End: 08-15-2023 ambulatory Alexx Leroyy Facility:[facility] Start: 08-15-2023 End: 08-15-2023 Patient encounter procedure Alexx Gupta [facility] Start: 08-12-2023 End: 08-12-2023 ambulatory Alexx Leroyy Facility:[facility] Start: 08-12-2023 End: 08-12-2023 Patient encounter procedure Alexx Gupta [facility] Start: 08-11-2023 End: 08-11-2023 ambulatory Glenn Gupta Facility:[facility] Start: 08-11-2023 End: 08-11-2023 Patient encounter procedure Glenn Gupta [facility] Start: 08-06-2023 End: 08-06-2023 Admission to same day surgery center Alexx Gupta [facility] Start: 08-06-2023 End: 08-06-2023 ambulatory Alexx Leroyy Facility:[facility] Start: 07-25-2023 End: 07-25-2023 ambulatory Alexx Leroyy Facility:[facility] Start: 07-25-2023 End: 07-25-2023 Patient encounter procedure Alexx Gupta [facility] Start: 2023 End: 2023 ambulatory TEZ ANGEL Facility:[facility] Start: 2023 End: 2023 Patient encounter procedure TEZ ANGEL [facility] Start: 07-21-2023 End: 07-21-2023 ambulatory Alexx Gupta Facility:[facility] Start: 07-21-2023 End: 07-21-2023 Patient encounter procedure Alexx Gupta [facility] Start: 07-18-2023 ambulatory CHRISTOPHER GUERRERO Facilit y:[facility] Start: 07-14-2023 End: 07-14-2023 ambulatory Melissa Nunez Facility:[facility] Start: 07-14-2023 End: 07-14-2023 Patient encounter procedure Melissa Nunez [facility] Start: 07-08-2023 End: 07-08-2023 ambulatory Melissa Nunez Facility:[facility] Start: 07-08-2023 End: 07-08-2023 Patient encounter procedure Melissa Judd [facility] Start: 07-07-2023 End: 07-07-2023 ambulatory Alexx Gupta Facility:[facility] Start: 07-07-2023 End: 07-07-2023 Patient encounter procedure Alexx Gupta [facility] Start: 06-23-2023 End: 06-23-2023 Emergency department patient visit Alexx Pena [facility] Start: 01-29-[address] CHAY CASTRO . [...] examination without abnormal findings DR TEZ ANGEL [facility] Start: 10-09-2022 End: 10-10-[address] TEZ ANGEL Facility:[facility] Start: 10-09-2022 End: 10-10-2022 Encounter for general adult medical examination without abnormal findings DR TEZ ANGEL Facility:[facility] Start: 09-14-2022 End: 09-14-2022 ambulatory Thania Trevizo Other Fon Other Start: 09-14-2022 Office outpatient vi sit 15 minutes Thania Trevizo [facility] [place] Start: 07-23-2022 End: [address] YONAS ANTON . Facility:[facility] Start: 07-16-[address] YONAS ANTON . Faci lity:[facility] Start: 06-04-2022 End: 06-05-[address] YONAS ANTON . Facility:[facility] Start: 05-31-2022 End: 05-31-2022 ambulatory Mayra Astorga Other Fon Other Start: 05-31-2022 Office outpatient ne w 30 minutes Mayra Astorga [facility] [place] Start: 05-02-2022 End: 05-03-[address] CHAY CASTRO . Facility:[facility] Start: 04-09-2022 End: 04-09-[address] CHAY CASTRO . Facility: Start: 08-06-2018 End: 08-07-2018 Patient encounter procedure SHANT ROMERO [facility] Start: 07-28-2018 End: 07-28-2018 Patient encounter procedure SHANT ROMERO [facility] Start: 07-28-2018 End: 07-28-2018 Patient encounter procedure LATASHA HU [facility] Start: 07-08-2018 End: 07-08-2018 Patient encounter procedure MINDY Rodriguez JOSE [facility] Start: 04-20-2018 End: 04-21-2018 Patient encounter procedure LATASHA HU [facility] Start: 04-15-2018 End: 04-20-2018 Patient encounter procedure LATASHA HU [facility] Procedures Date Procedure Procedure Detail Performing Clinician Start: 01-12-2025 Urnls dip stick/tablet rgnt non-auto w/o micrscp Chay Matthew DO Work Phone: Start: 01-03-2025 Urnls dip stick/tablet rgnt non-auto w/o micrscp Chay Matthew DO Work Phone: Start: 10-29-2024 ALLERGENS W/TOTAL IGE AREA 5 Sarahy Burns MD Work Phone: Start: 08-17-2024 Radex foot complete minimum 3 views Tez Rogers DPM FACFAS Work Phone: Start: 10-01-2023 Hysterectomy Glenn Gupta Start: 08-06-2023 Robot assisted laparoscopic cholecystectomy Alexx Gupta Colposcopy Alexx Pena Fasciotomy of foot Alexx morrell H/O: hysterectomy H/O: hysterectomy Chay Matthew DO Work Phone: H/O: tubal ligation Alexx meneses Laparoscopy Alexx Pena Loop electrosurgical excision procedure Alexx Pena Plan of Treatment Date Care Activity Detail Author Start: 05-09-2025 Influenza vaccination Influenz a Vaccine (Season Ended) [facility] Start: 03-21-2025 End: 03-21-2025 Patient encounter procedure 03/21/2025 2:30 PM EDT Office Visit ROSANA ALFONSO [address] [facility] [address] [place] [phone] Renee Burns, DO [address] [place] [address] ROSANA VILLAGOMEZUSKY Start: 02-24-2025 End: 02-24-2025 Patient encounter procedure 02/24/2025 1:30 PM EDT Office Visit [facility] [address] [place] [phone] Zoya Peter PA [address] [place], [place] [id number] [facility] Start: 02-02-2025 End: 02-02-2025 Patient encounter procedure 02/02/2025 3:00 PM EDT Office Visit ROSANA BARTLETT [address] [place] [phone] Renee Burns DO [address] [place] [address] ROSANA BARTLETT Start: 01-17-2025 End: 01-17-2025 Professional / ancillary services management 01/17/2025 1:00 PM EDT Ancillary Procedure [facility] [address] [place] [address] [facility] Start: 01-12-2025 End: 01-12-2025 Patient encounter procedure 01/12/2025 1:30 PM EDT Consult [facility] [address] [place] [address] Chay Castro DO [address] [place], [place] [id number] [facility] Start: 01-03-2025 End: 07-05-2025 US Pelvis US Pelvis w/ TV Imaging Routine Pelvic pain in female Expected: 01/03/2025, Expires: 07/05/2025 [facility] Work Phone: Comment on above: Expected: 01/03/2025 , Expires: 07/05/2025 Start: 01-03-2025 End: 01-03-2025 Patient encounter procedure [facility] Comment on above: Arrived Start: 11-12-2024 End: 11-12-2024 Patient encounter procedure 11/12/2024 11:20 AM EST Office Visit [facility] [address] [place] [phone] Sarahy Burns MD [address] [facility] [address] [place] [address] [facility] Start: 11-03-2024 End: 11-03-2024 Professional / ancillary services management 11/03/2024 8:45 AM EST Ancillary Procedure [facility] [address] [phone] Start: 10-11-2024 End: 10-11-2024 Patient encounter procedure 10/11/2024 9:15 AM EST Office Visit [facility] [address] [place] [address] Tez Angel MD [address] [place] [address] [facility] Start: 09-17-2024 End: 09-17-2024 Patient encounter procedure 09/17/2024 8:10 AM EST Office Visit [facility] [address] [place] [phone] Sarahy Burns MD [address] [facility] [address] [place] [address] Chronic rhinosinusitis [facility] Comment on above: Chronic rhinosinusit is Start: 07-28-2024 End: 07-28-2024 Patient encounter procedure 07/28/2024 11:45 AM EST Office Visit [facility] [address] [place] [phone] Tez Angel MD [address] [place] [phone] Arrived [facility] Comment on above: Arrived Start: 05-09-2024 Influenza vaccination Influenza Vacc ine (#1) [facility] Start: 02-25-2024 End: 02-25-2024 Patient encounter procedure 02/25/2024 9:30 AM EDT Office Visit [facility] [address] [place] [address] Tez Angel MD [address] [place] [address] [facility] Start: 11-12-2023 End: 11-12-2023 ambulatory 11/12/2023 11:20 AM EST Visit [facility] [address] [facility] [place] [address] Zoya Peter PA [address] [facility] [place] [address] [facility] Start: 05-09-2023 Influenza vaccination Influenza Vacc ine (#1) [facility] Immunizations Immunization Date Immunization Notes Care Provider Fa cili 12-02-2021 SARS-CoV-2 mRNA (sfmvvzwjlkv-zvoe-vazb ose) vaccine Alexx Gupta [facility] 01-05-2021 SARS-CoV-2 (COVID-19 ) Ad26 vaccine, recombinant Alexx Pena [facility] 12-15-2020 SARS-CoV-2 (COVID-19 ) Ad26 vaccine, recombinant Alexx Jean [facility] 01-22-2002 measles, mumps and rubella virus vaccine Alexx Gupta [facility] NEGATED: Highlighted row has not occurred!07-07-2023 influenza virus vaccine, unspecified formulation Alexx Gupta [facility] Payers Date Payer Category Payer Self-pay 2023 Unknown 2022 Medicaid [id number] 2022 Medicaid [id number] 1989 Unknown [id number] 2.16.84 0.1.471480.3.579.2.593 1989 Unknown [id number] 2.16.84 0.1.667934.3.579.2.593 1989 Unknown [id number] 2.16.84 0.1.334940.3.579.2.593 1989 Unknown [id number] 2.16.84 0.1.313342.3.579.2.593 1989 Unknown [id number] 2.16.84 0.1.936627.3.579.2.593 1989 Unknown [id number] 2.16.84 0.1.513176.3.579.2.593 1989 Unknown [id number] 2.16.84 0.1.985640.3.579.2.593 1989 Unknown [id number] 2.16.84 0.1.552391.3.579.2.593 1989 Unknown [id number] 2.16.84 0.1.811083.3.579.2.593 1989 Unknown [id number] 2.16.84 0.1.326056.3.579.2.593 1989 Unknown [id number] 2.16.84 0.1.113246.3.579.2.593 1989 Unknown [id number] 2.16.84 0.1.396864.3.579.2.593 1989 Unknown [id number] 2.16. 840.1.049611.3.579.2.196 1989 Unknown [id number] 2.16.8 40.1.819179.3.579.2.727 1989 Unknown [id number] 2.16.8 40.1.751391.3.579.2.727 1989 Unknown [id number] 2.16.8 40.1.497999.3.579.2.727 1989 Unknown [id number] 2.16.8 40.1.800377.3.579.2.727 1989 Unknown [id number] 2.16.8 40.1.248069.3.579.2.727 1989 Unknown [id number] 2.16.8 40.1.913767.3.579.2.727 1989 Unknown [id number] 2.16.8 40.1.363685.3.579.2.727 1989 Unknown [id number] 2.16.8 40.1.753306.3.579.2.727 1989 Unknown [id number] 2.16.8 40.1.461404.3.579.2.727 1989 Unknown [id number] 2.16.8 40.1.430015.3.579.2.727 1989 Unknown [id number] 2.16.8 40.1.596428.3.579.2.727 1989 Unknown [id number] 2.16.8 40.1.949069.3.579.2.727 1989 Unknown [id number] 2.16.8 40.1.952078.3.579.2.727 1989 Unknown [id number] 2.16.8 40.1.254906.3.579.2.727 1989 Unknown [id number] 2.16.8 40.1.014070.3.579.2.727 1989 Unknown [id number] 2.16.8 40.1.697904.3.579.2.727 1989 Unknown [id number] 2.16.8 40.1.898003.3.579.2.727 1989 Unknown [id number] 2.16.8 40.1.471041.3.579.2.727 1989 Unknown [id number] 2.16.8 40.1.998841.3.579.2.727 1989 Unknown [id number] 2.16.84 0.1.113797.3.579.2.9 1989 Unknown [id number] 2.16.84 0.1.977869.3.579.2.9 1989 Unknown [id number] 2.16.84 0.1.382313.3.579.2.9 1989 Unknown [id number] 2.16.84 0.1.065015.3.579.2.1258 1989 Unknown [id number] 2.16.84 0.1.914070.3.579.2.9 1989 Unknown [id number] 2.16.84 0.1.117711.3.579.2.9 1989 Unknown [id number] 2.16.84 0.1.616923.3.579.2.1259 1989 Unknown [id number] 2.16.84 0.1.202344.3.579.2.1259 1989 Unknown [id number] 2.16.84 0.1.302973.3.579.2.9 1989 Unknown [id number] 2.16.84 0.1.333837.3.579.2.9 1989 Unknown [id number] 2.16.84 0.1.892438.3.579.2.1259 1959 Unknown [id number] 2.1 6.840.1.227307.19 Social History Date Type Detail Facility Unknown if ever smoked Fon Other Start: 08-21-2023 End: 11-12-2024 Sex Assigned At [facility] Start: 02-25-2023 Tobacco smoking status Smokele ss tobacco user within last 30 days [facility] Start: 07-08-2023 End: 10-20-2023 Tobacco smoking status Never smoked tobacco (finding) [facility] Tobacco smoking status Smoker (finding) [facility] [place] Tobacco Cigarettes [facility] Comment on above: social smoker, coupl e times per month Tobacco smoking status No Smokin g Status Entered [facility] Start: 1989 Sex Assigned At Female F [facility] Start: 08-27-2023 End: 11-12-2024 Tobacco smoking status NHIS Occasional tobacco smoker [facility] History of tobacco use Cigarette Smoker [facility] Start: 10-08-2023 End: 08-17-2024 Alcohol intake Current drinker of alcohol (finding) [facility] Start: 08-21-2023 End: 11-12-2024 History of Social function [facility] Within [...] Identifies as female gender (finding) [facility] Start: 09-17-2024 Tobacco smoking stat [facility] Ex-smoker [facility] Start: 09-17-2024 End: 11-12-2024 Tobacco use and exposure Smokeless tobacco non-user [facility] Start: 09-17-2024 End: 01-12-2025 Alcoholic beverage intake Ex-drinker (finding) [facility] Start: 09-17-2024 Tobacco Comment I vape semi-re gularly now and will smoke a cigarette or cigar once or twice a month [facility] Start: 09-17-2024 Alcohol Comment I have been so gennaro 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 [facility] Healthcare Goals Date Patient Goal Desired Activity /State Personal health goal Functional Status Date Assessment Result Facility 07-05-2024 Functional Status N/A [facility] 10-25-2023 Functional Status N/A [facility] 10-20-2023 Functional Status No [facility] 08-15-2023 Functional Status N/A [facility] [place] 08-11-2023 Functional Status No [facility] 07-25-2023 Functional Status No [facility] 07-08-2023 Functional Status N/A [facility] 06-23-2023 Functional Status N/A [facility] Clinical Notes 05-31-2022 to 01-12-2025 Marcela Reyna LPN - 01/12/2025 1:30 PM Rajiv Reyna LPN - 01/03/2025 10:50 AM Todd Burns MD - 09/17/2024 8:10 AM ELIEL Regan - 08/17/2024 8:00 AM EST Note Date & Type Note Facility 01-12-2025 History of Present illness Narrative Reason for Appointment: Patient ID: Azul Allen is a 34 y.o. female who presents for Pre-op Visit Patient presents today for Pre Op appointment. Patient is scheduled to undergo Diagnostic Laparoscopy, possible BASIL, possible FOE, possible BSO on 02/11/[address] Castro at [facility]. MEDICATIONS Current Outpatient Medications Medication Instructions buPROPion XL (WELLBUTRIN XL) 150 mg, Oral, Daily buPROPion XL (WELLBUTRIN XL) 300 mg, Oral, Daily cetirizine-pseudoephedrine (ZyrTEC-D) 5-120 MG 12 hr tablet 1 tablet, Oral, 2 times daily cholecalciferol (VITAMIN D-3) 50 mcg, Oral, Daily fluticasone (Flonase) 50 MCG/ACT nasal spray 2 sprays, Each Nostril, Daily, Shake gently. Before first use, prime pump. After use, clean tip and replace cap. furosemide (LASIX) 40 mg, Oral, Daily PRN gabapentin (NEURONTIN) 100 mg, Nightly hydrOXYzine HCl (ATARAX) 50 mg, Oral, 4 times daily PRN levothyroxine (Synthroid, Levoxyl) 100 MCG tablet TAKE 1 TABLET BY MOUTH EVERY MORNING ON AN EMPTY STOMACH ondansetron (Zofran) 4 MG/5ML solution Once pantoprazole (PROTONIX) 40 mg, Oral, Daily potassium chloride CR (K-Tab) 20 MEQ ER tablet 20 mEq, Oral, Daily PRN rizatriptan TELECOMMUNICATIONS LINESWORKER (MAXALT-TELECOMMUNICATIONS LINESWORKER) 10 mg, Oral, Once as needed, May repeat in 2 hours if unresolved. Do not exceed 30 mg in 24 hours. topiramate (TOPAMAX) 50 mg, Oral, 2 times daily ALLERGIES Allergies Allergen Reactions Hydrocodone-Acetaminophen GI intolerance Iodine Hives, Itching, Rash and Unknown Wound Dressing Adhesive Hives, Itching and Rash PROBLEMS Active Ambulatory Problems Diagnosis Date Noted At standard risk for fall 03/21/2023 Complex regional pain syndrome of lower limb 03/21/2023 Dysmenorrhea 03/21/2023 Dyspareunia, female 03/21/2023 Dysplasia of cervix 03/21/2023 Edema of both legs 03/21/2023 Endometriosis 03/21/2023 Equinus contracture of right ankle 03/21/2023 MARGARETH (generalized anxiety disorder) (CMS/HCC) 03/21/2023 GERD without esophagitis 03/21/2023 Hypothyroidism (CMS/HCC) 03/21/2023 Mild recurrent major depression (HCC) (CMS/HCC) 03/21/2023 Morbid obesity with BMI of 45.0-49.9, adult ([facility]) 03/21/2023 Menorrhagia 03/21/2023 Motion sickness due to anesthesia 03/21/2023 Nerve entrapment syndrome of right foot 03/21/2023 Neuritis 03/21/2023 Migraine without aura and without status migrainosus, not intractable ([facility]) 03/21/2023 Back pain 03/21/2023 Polycystic ovarian syndrome 03/21/2023 Plantar fasciitis 03/21/2023 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) 04/15/2018 Raised TSH level 03/21/2023 Snoring 03/21/2023 TTS (tarsal tunnel syndrome), right 03/21/2023 Vertigo 03/21/2023 Vitamin D deficiency 03/21/2023 Genital warts 11/12/2023 HGS[facility] on Pap smear of cervix 11/12/2023 Prediabetes 02/17/2024 Chronic rhinosinusitis 07/28/2024 Pelvic pain in female 01/03/2025 Resolved Ambulatory Problems Diagnosis Date Noted Difficulty walking 03/21/2023 Recurrent major depression (HCC) ([facility]) 11/12/2023 Past Medical History: Diagnosis Date Calculus of gallbladder without cholecystitis without obstruction Headache 2021 Migraine ([facility]) 2020 Plantar fasciitis of right foot Smoker HISTORY PAST MEDICAL HISTORY SOCIAL HISTORY Past Medical History: Diagnosis Date Calculus of gallbladder without cholecystitis without obstruction Dysmenorrhea Dyspareunia, female Edema of both legs Endometriosis MARGARETH (generalized anxiety disorder) ([facility]) Genital warts GERD without esophagitis Headache 2021 [facility] on Pap smear of cervix Hypothyroidism ([facility]) Migraine ([facility]) 2020 Morbid obesity with BMI of 45.0-49.9, adult ([facility]) Plantar fasciitis of right foot Polycystic ovarian syndrome Prediabetes Recurrent major depression (HCC) ([facility]) Smoker Vitamin D deficiency Social History Tobacco Use Smoking status: Some Days Current packs/day: 0.00 Types: Cigarettes Smokeless tobacco: Never Tobacco comments: I vape semi-regularly now and will smoke a cigarette or cigar once or twice a month Substance Use Topics Alcohol use: Not Currently Alcohol/week: 4.0 - 8.0 standard drinks of alcohol Comment: 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 Drug use: Never FAMILY HISTORY Family History Problem Relation Name Age of Onset Arthritis Mother Nereida Marsh Hypertension Mother Nereida Marsh Cervical cancer Mother Nereida Marsh Other (varicose veins) Mother Nereida Marsh Stroke Mother Nereida Marsh Migraines Mother Nereida Marsh headache Heart failure Mother Nereida Marsh Hyperlipidemia Mother Nereida Marsh Alcohol abuse Father Didierer Etzwiler Bipolar disorder Father Popeyeopher Etzwiler Depression Father Christopher Etzwiler major Ulcers Father Popeyeopher Etzwiler peptic ulcer Other (blood clots) Father Popeyeopher Etzwiler Diabetes Father Christopher Etzwiler Hyperlipidemia Father Christopher Etzwiler Hypertension Father Christopher Etzwiler Heart disease Father Didierer Etzwiler Other (Vit B12 deficiency anemia) Father Didierer Etzwiler Arthritis Father Popeyeopher Etzwiler Stroke Father Tim Etzwiler Hypertension Brother Depression Brother major Mental illness Brother Migraines Maternal Grandmother Mirta Prince headaches Depression Maternal Grandmother Mirta Prince major Hypertension Maternal Grandmother Mirta Prince Hyperlipidemia Maternal Grandmother Mirta Prince Cancer Maternal Grandmother Mirta Prince Arthritis Maternal Grandfather Artemio Prince Hyperlipidemia Maternal Grandfather Artemio Prince Hypertension Maternal Grandfather Artemio Prince Stroke Maternal Grandfather Artemio Prince Alzheimer's disease Maternal Grandfather Artemio Prince COPD Paternal Grandmother Cervical cancer Paternal Grandfather Lan Etzwideja Hypertension Paternal Grandfather Lan Etzwiler Hyperlipidemia Paternal Grandfather Lan Etzwiler Diabetes Paternal Grandfather Lan Etzwiler Ulcers Paternal Grandfather Lan Etzwideja peptic ulcer Other (Vit b12 deficiency anemia) Paternal Grandfather Lan Allen Mental illness Paternal Grandfather Lan Allen SURGICAL HISTORY Past Surgical History: Procedure Laterality Date CHOLECYSTECTOMY ENDOMETRIAL ABLATION 03/12/2023 ENDOMETRIAL BIOPSY 03/12/2023 FOOT SURGERY Right 06/10/2019 LAPAROSCOPY DIAGNOSTIC / BIOPSY / ASPIRATION / LYSIS 10/31/2017 Diagnostic laparoscopy OTHER SURGICAL HISTORY 10/31/2017 LEAP PELVIC LAPAROSCOPY lap removal of tissue in uterus TX COLONOSCOPY,BIOPSY 09/22/2017 Colposcopy with biopsy of cervix and endocervix - [facility] ROBOTIC ASSISTED HYSTERECTOMY 10/01/2023 TUBAL LIGATION Bilateral 03/12/2023 REVIEW OF SYSTEMS Review of Systems: Review of Systems Constitutional: Negative. HENT: Negative. Eyes: Negative. Respiratory: Negative. Cardiovascular: Negative. Gastrointestinal: Negative. Genitourinary: Negative. Musculoskeletal: Negative. Skin: Negative. Neurological: Negative. All other systems reviewed and are negative. Hematological: Negative. Endocrine: Negative. Allergic/Immunologic: Negative. OBJECTIVE Objective: Physical Exam Constitutional: Appearance: Normal appearance. She is well-developed. Cardiovascular: Rate and Rhythm: Normal rate and regular rhythm. Pulmonary: Effort: Pulmonary effort is normal. Breath sounds: Normal breath sounds. Abdominal: General: Bowel sounds are normal. There is no distension. Palpations: Abdomen is soft. Tenderness: There is no abdominal tenderness. There is no guarding or rebound. Musculoskeletal: General: No swelling. Normal range of motion. Right lower leg: No edema. Left lower leg: No edema. Neurological: Mental Status: She is alert and oriented to person, place, and time. Skin: General: Skin is warm and dry. Psychiatric: Mood and Affect: Mood normal. Behavior: Behavior normal. Vitals and nursing note reviewed. Exam conducted with a tanker service attendant present. Vitals: Estimated body mass index is 46.3 kg/m as calculated from the following: Height as of 11/12/24: 5' 2 . Weight as of 01/03/25: 253 lb 1.9 oz. BP: Patient's last menstrual period was 09/08/2023 (approximate). ASSESSMENT & PLAN ICD-10-CM 1. Pre-op examination Z01.818 2. Pelvic pain in female R10.2 3. H/O: hysterectomy Z90.710 Pre Op: Patient is doing well but has complaints of pelvic pain, H/O hysterectomy. I have discussed conservative management vs. surgical management with the patient in detail and patient desires surgical management at this time. Patient will undergo Diagnostic Laparoscopy, possible BASIL, possible FOE, possible BSO on 02/11/25. Surgical consents were signed, mmc was reviewed, and patient is to proceed to [facility] OR. Follow Up: Patient is to follow up between 1-2 weeks post operative to assess proper healing and recovery from procedure. Documented by Annmarie Bearden LPN on behalf of: Chay Castro DO documented in this encounter [facility] 01-03-2025 History of Present illness Narrative Reason for Appointment: Patient ID: Azul Allen is a 34 y.o. female who presents for Pelvic Pain Patient presents today for Consult appointment. MEDICATIONS Current Outpatient Medications Medication Instructions buPROPion XL (WELLBUTRIN XL) 150 mg, Oral, Daily buPROPion XL (WELLBUTRIN XL) 300 mg, Oral, Daily cetirizine-pseudoephedrine (ZyrTEC-D) 5-120 MG 12 hr tablet 1 tablet, Oral, 2 times daily cholecalciferol (VITAMIN D-3) 50 mcg, Oral, Daily fluticasone (Flonase) 50 MCG/ACT nasal spray 2 sprays, Each Nostril, Daily, Shake gently. Before first use, prime pump. After use, clean tip and replace cap. furosemide (LASIX) 40 mg, Oral, Daily PRN gabapentin (NEURONTIN) 100 mg, Nightly hydrOXYzine HCl (ATARAX) 50 mg, Oral, 4 times daily PRN levothyroxine (Synthroid, Levoxyl) 100 MCG tablet TAKE 1 TABLET BY MOUTH EVERY MORNING ON AN EMPTY STOMACH ondansetron (Zofran) 4 MG/5ML solution Once pantoprazole (PROTONIX) 40 mg, Oral, Daily potassium chloride CR (K-Tab) 20 MEQ ER tablet 20 mEq, Oral, Daily PRN rizatriptan TELECOMMUNICATIONS LINESWORKER (MAXALT-TELECOMMUNICATIONS LINESWORKER) 10 mg, Oral, Once as needed, May repeat in 2 hours if unresolved. Do not exceed 30 mg in 24 hours. topiramate (TOPAMAX) 50 mg, Oral, 2 times daily ALLERGIES Allergies Allergen Reactions Hydrocodone-Acetaminophen GI intolerance Iodine Hives, Itching, Rash and Unknown Wound Dressing Adhesive Hives, Itching and Rash PROBLEMS Active Ambulatory Problems Diagnosis Date Noted At standard risk for fall 03/21/2023 Complex regional pain syndrome of lower limb 03/21/2023 Dysmenorrhea 03/21/2023 Dyspareunia, female 03/21/2023 Dysplasia of cervix 03/21/2023 Edema of both legs 03/21/2023 Endometriosis 03/21/2023 Equinus contracture of right ankle 03/21/2023 MARGARETH (generalized anxiety disorder) (CMS/HCC) 03/21/2023 GERD without esophagitis 03/21/2023 Hypothyroidism (CMS/HCC) 03/21/2023 Mild recurrent major depression (HCC) (CMS/HCC) 03/21/2023 Morbid obesity with BMI of 45.0-49.9, adult (CMS/HCC) 03/21/2023 Menorrhagia 03/21/2023 Motion sickness due to anesthesia 03/21/2023 Nerve entrapment syndrome of right foot 03/21/2023 Neuritis 03/21/2023 Migraine without aura and without status migrainosus, not intractable (CMS/HCC) 03/21/2023 Back pain 03/21/2023 Polycystic ovarian syndrome 03/21/2023 Plantar fasciitis 03/21/2023 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) 04/15/2018 Raised TSH level 03/21/2023 Snoring 03/21/2023 TTS (tarsal tunnel syndrome), right 03/21/2023 Vertigo 03/21/2023 Vitamin D deficiency 03/21/2023 Genital warts 11/12/2023 [facility]GS[facility] on Pap smear of cervix 11/12/2023 Prediabetes 02/17/2024 Chronic rhinosinusitis 07/28/2024 Resolved Ambulatory Problems Diagnosis Date Noted Difficulty walking 03/21/2023 Recurrent major depression (HCC) (CMS/HCC) 11/12/2023 Past Medical History: Diagnosis Date Calculus of gallbladder without cholecystitis without obstruction Headache 2021 Migraine (CMS/HCC) 2020 Plantar fasciitis of right foot Smoker HISTORY PAST MEDICAL HISTORY SOCIAL HISTORY Past Medical History: Diagnosis Date Calculus of gallbladder without cholecystitis without obstruction Dysmenorrhea Dyspareunia, female Edema of both legs Endometriosis MARGARETH (generalized anxiety disorder) (CMS/HCC) Genital warts GERD without esophagitis Headache 2021 [facility] on Pap smear of cervix Hypothyroidism (CMS/HCC) Migraine (CMS/HCC) 2020 Morbid obesity with BMI of 45.0-49.9, adult (CMS/HCC) Plantar fasciitis of right foot Polycystic ovarian syndrome Prediabetes Recurrent major depression (HCC) (CMS/HCC) Smoker Vitamin D deficiency Social History Tobacco Use Smoking status: Some Days Current packs/day: 0.00 Types: Cigarettes Smokeless tobacco: Never Tobacco comments: I vape semi-regularly now and will smoke a cigarette or cigar once or twice a month Substance Use Topics Alcohol use: Not Currently Alcohol/week: 4.0 - 8.0 standard drinks of alcohol Comment: 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 Drug use: Never FAMILY HISTORY Family History Problem Relation Name Age of Onset Arthritis Mother Nereida Marsh Hypertension Mother Nereida Marsh Cervical cancer Mother Nereida Marsh Other (varicose veins) Mother Nereida Marsh Stroke Mother Nereida Marsh Migraines Mother Nereida Marsh headache Heart failure Mother Nereida Marsh Hyperlipidemia Mother Nereida Marsh Alcohol abuse Father Tim Etkrystlewideja Bipolar disorder Father Popeyeopher Etzwiler Depression Father Tim Etzwiler major Ulcers Father Tim Etfarhana peptic ulcer Other (blood clots) Father Tim Etzwiler Diabetes Father Tim Etzwiler Hyperlipidemia Father Tim Etzwiler Hypertension Father Christopher Etzwiler Heart disease Father Tim Etzwiler Other (Vit B12 deficiency anemia) Father Tim Etzwiler Arthritis Father Tim Etzwiler Stroke Father Tim Etjessicaler Hypertension Brother Depression Brother major Mental illness Brother Migraines Maternal Grandmother Mirta Prince headaches Depression Maternal Grandmother Mirta Prince major Hypertension Maternal Grandmother Mirta Prince Hyperlipidemia Maternal Grandmother Mirta Prince Cancer Maternal Grandmother Mirta Prince Arthritis Maternal Grandfather Artemio Prince Hyperlipidemia Maternal Grandfather Artemio Prince Hypertension Maternal Grandfather Artemio Prince Stroke Maternal Grandfather Artemio Prince Alzheimer's disease Maternal Grandfather Artemio Prince COPD Paternal Grandmother Cervical cancer Paternal Grandfather Lan Etzwideja Hypertension Paternal Grandfather Lan Etzwideja Hyperlipidemia Paternal Grandfather Lan Etzwideja Diabetes Paternal Grandfather Lan Etzwiler Ulcers Paternal Grandfather Lan Allen peptic ulcer Other (Vit b12 deficiency anemia) Paternal Grandfather Lan Allen Mental illness Paternal Grandfather Lan Allen SURGICAL HISTORY Past Surgical History: Procedure Laterality Date CHOLECYSTECTOMY ENDOMETRIAL ABLATION 03/12/2023 ENDOMETRIAL BIOPSY 03/12/2023 FOOT SURGERY Right 06/10/2019 LAPAROSCOPY DIAGNOSTIC / BIOPSY / ASPIRATION / LYSIS 10/31/2017 Diagnostic laparoscopy OTHER SURGICAL HISTORY 10/31/2017 LEAP PELVIC LAPAROSCOPY lap removal of tissue in uterus TX COLONOSCOPY,BIOPSY 09/22/2017 Colposcopy with biopsy of cervix and endocervix - [facility] ROBOTIC ASSISTED HYSTERECTOMY 10/01/2023 TUBAL LIGATION Bilateral 03/12/2023 REVIEW OF SYSTEMS Review of Systems: Review of Systems Constitutional: Negative. HENT: Negative. Eyes: Negative. Respiratory: Negative. Cardiovascular: Negative. Gastrointestinal: Negative. Genitourinary: Positive for pelvic pain and vaginal pain. Musculoskeletal: Negative. Skin: Negative. Neurological: Negative. All other systems reviewed and are negative. Hematological: Negative. Endocrine: Negative. Allergic/Immunologic: Negative. OBJECTIVE Objective: Physical Exam Constitutional: Appearance: Normal appearance. She is well-developed. Cardiovascular: Rate and Rhythm: Normal rate and regular rhythm. Pulmonary: Effort: Pulmonary effort is normal. Breath sounds: Normal breath sounds. Abdominal: General: Bowel sounds are normal. There is no distension. Palpations: Abdomen is soft. Tenderness: There is no abdominal tenderness. There is no guarding or rebound. Musculoskeletal: General: No swelling. Normal range of motion. Right lower leg: No edema. Left lower leg: No edema. Neurological: Mental Status: She is alert and oriented to person, place, and time. Skin: General: Skin is warm and dry. Psychiatric: Mood and Affect: Mood normal. Behavior: Behavior normal. Vitals and nursing note reviewed. Exam conducted with a tanker service attendant present. Vitals: Estimated body mass index is 46.3 kg/m as calculated from the following: Height as of 11/12/24: 5' 2 . Weight as of this encounter: 253 lb 1.9 oz. BP: 116/78 Patient's last menstrual period was 09/08/2023 (approximate). ASSESSMENT & PLAN ICD-10-CM 1. Pelvic pain in female R10.2 POCT urinalysis dipstick manually resulted Patient presents today for consult with pelvic/vaginal pain. Pain radiates up vaginal canal. Patient had hysterectomy 09/2023. Discussed possible scar tissue and options to look into pain. Discussed conservative management verses surgical management. Will order ultrasound to be obtained. Patient denies vaginal dryness. Patient voiced that this pain happens with climax and also bowel movements. Patient desires to proceed to OR for Diagnostic Lap with possible BASIL/ Possible FOE. Patient to schedule ultrasound and discuss surgical date with Rn Maternal Child prior to leaving office. Documented by Marcela Reyna LPN on behalf of: Chay Castro DO documented in this encounter [facility] 10-29-2024 Evaluation + Plan note Diagnostic Tests PendingAllergens w/Total IgE Area 5 10/29/24 [facility] 09-17-2024 History of Present illness Narrative Subjective Patient ID: Azul Allen is a 34 y.o. female who presents for Rhinosinusitis Pt reports she has chronic (4 mo) facial and head pressure and pain. Also has nasal congestion and clear rhinorrhea. Tx with mult abx and steroids. Also uses flonase. No sinonasal surgery. No allergy eval Review of Systems All other systems reviewed and are negative. Family History Problem Relation Name Age of Onset Arthritis Mother Nereida Marsh Hypertension Mother Nereida Marsh Cervical cancer Mother Nereida Marsh Other (varicose veins) Mother Nereida Marsh Stroke Mother Nereida Marsh Migraines Mother Nereida Marsh headache Heart failure Mother Nereida Marsh Hyperlipidemia Mother Nereida Marsh Alcohol abuse Father Christopher Etzwiler Bipolar disorder Father Christopher Etzwiler Depression Father Christopher Etzwiler major Ulcers Father Christopher Etzwiler peptic ulcer Other (blood clots) Father Christopher Etzwiler Diabetes Father Christopher Etzwiler Hyperlipidemia Father Christopher Etzwiler Hypertension Father Christopher Etzwiler Heart disease Father Christopher Etzwiler Other (Vit B12 deficiency anemia) Father Christopher Etzwiler Arthritis Father Christopher Etzwiler Stroke Father Christopher Etzwiler Hypertension Brother Depression Brother major Mental illness Brother Migraines Maternal Grandmother Mirta Prince headaches Depression Maternal Grandmother Mirta Prince major Hypertension Maternal Grandmother Mirta Prince Hyperlipidemia Maternal Grandmother Mirta Prince Cancer Maternal Grandmother Mirta Prince Arthritis Maternal Grandfather Artemio Prince Hyperlipidemia Maternal Grandfather Artemio Prince Hypertension Maternal Grandfather Artemoi Prince Stroke Maternal Grandfather Artemio Prince Alzheimer's disease Maternal Grandfather Artemio Prince COPD Paternal Grandmother Cervical cancer Paternal Grandfather Lan Allen Hypertension Paternal Grandfather Lan Allen Hyperlipidemia Paternal Grandfather Lan Allen Diabetes Paternal Grandfather Lan Owenszwideja Ulcers Paternal Grandfather Lan Allen peptic ulcer Other (Vit b12 deficiency anemia) Paternal Grandfather Lan Allen Mental illness Paternal Grandfather Lan Allen Active Ambulatory Problems Diagnosis Date Noted At standard risk for fall 03/21/2023 Complex regional pain syndrome of lower limb 03/21/2023 Dysmenorrhea 03/21/2023 Dyspareunia, female 03/21/2023 Dysplasia of cervix 03/21/2023 Edema of both legs 03/21/2023 Endometriosis 03/21/2023 Equinus contracture of right ankle 03/21/2023 MARGARETH (generalized anxiety disorder) (CMS/HCC) 03/21/2023 GERD without esophagitis 03/21/2023 Hypothyroidism (CMS/HCC) 03/21/2023 Mild recurrent major depression (HCC) (CMS/HCC) 03/21/2023 Morbid obesity with BMI of 45.0-49.9, adult (CMS/HCC) 03/21/2023 Menorrhagia 03/21/2023 Motion sickness due to anesthesia 03/21/2023 Nerve entrapment syndrome of right foot 03/21/2023 Neuritis 03/21/2023 Migraine without aura and without status migrainosus, not intractable (CMS/HCC) 03/21/2023 Back pain 03/21/2023 Polycystic ovarian syndrome 03/21/2023 Plantar fasciitis 03/21/2023 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) 04/15/2018 Raised TSH level 03/21/2023 Snoring 03/21/2023 TTS (tarsal tunnel syndrome), right 03/21/2023 Vertigo 03/21/2023 Vitamin D deficiency 03/21/2023 Genital warts 11/12/2023 HGSIL on Pap smear of cervix 11/12/2023 Prediabetes 02/17/2024 Chronic rhinosinusitis 07/28/2024 Resolved Ambulatory Problems Diagnosis Date Noted Difficulty walking 03/21/2023 Recurrent major depression (HCC) (CMS/HCC) 11/12/2023 Past Medical History: Diagnosis Date Calculus of gallbladder without cholecystitis without obstruction Headache 2021 Migraine (CMS/HCC) 2020 Plantar fasciitis of right foot Smoker Past Surgical History: Procedure Laterality Date CHOLECYSTECTOMY ENDOMETRIAL ABLATION 03/12/2023 ENDOMETRIAL BIOPSY 03/12/2023 FOOT SURGERY Right 06/10/2019 LAPAROSCOPY DIAGNOSTIC / BIOPSY / ASPIRATION / LYSIS 10/31/2017 Diagnostic laparoscopy OTHER SURGICAL HISTORY 10/31/2017 LEAP PELVIC LAPAROSCOPY lap removal of tissue in uterus TX COLONOSCOPY,BIOPSY 09/22/2017 Colposcopy with biopsy of cervix and endocervix - HGSIL ROBOTIC ASSISTED HYSTERECTOMY 10/01/2023 TUBAL LIGATION Bilateral 03/12/2023 Allergies Allergen Reactions Hydrocodone-Acetaminophen GI intolerance Iodine Hives, Itching, Rash and Unknown Wound Dressing Adhesive Hives, Itching and Rash Current Outpatient Medications on File Prior to Visit Medication Sig Dispense Refill buPROPion XL (Wellbutrin XL) 150 MG 24 hr tablet Take 1 tablet (150 mg) by mouth Daily 30 tablet 5 buPROPion XL (Wellbutrin XL) 300 MG 24 hr tablet Take 1 tablet (300 mg) by mouth Daily 90 tablet 3 cholecalciferol (Vitamin D-3) 50 MCG (2000 UT) tablet Take 1 tablet (50 mcg) by mouth Daily 90 tablet 3 fluticasone (Flonase) 50 MCG/ACT nasal spray Administer 2 sprays into each nostril Daily Shake gently. Before first use, prime pump. After use, clean tip and replace cap. 16 g 2 furosemide (Lasix) 40 MG tablet Take 1 tablet (40 mg) by mouth Daily as needed (as needed) 30 tablet 5 gabapentin (Neurontin) 100 MG capsule Take 100 mg by mouth at bedtime hydrOXYzine HCl (Atarax) 50 MG tablet Take 1 tablet (50 mg) by mouth 4 (four) times a day as needed for anxiety 60 tablet 3 levothyroxine (Synthroid, Levoxyl) 100 MCG tablet TAKE 1 TABLET BY MOUTH EVERY MORNING ON AN EMPTY STOMACH 30 tablet 11 ondansetron (Zofran) 4 MG/5ML solution Take by mouth 1 (one) time pantoprazole (ProtoNix) 40 MG EC tablet TAKE 1 TABLET BY MOUTH DAILY 300 tablet 0 potassium chloride CR (K-Tab) 20 MEQ ER tablet Take 1 tablet (20 mEq) by mouth Daily as needed (Edema) 90 tablet 3 rizatriptan TELECOMMUNICATIONS LINESWORKER (Maxalt-TELECOMMUNICATIONS LINESWORKER) 10 MG disintegrating tablet Take 1 tablet (10 mg) by mouth 1 (one) time if needed for migraine May repeat in 2 hours if unresolved. Do not exceed 30 mg in 24 hours. 9 tablet 0 topiramate (Topamax) 50 MG tablet Take 50 mg by mouth in the morning and 50 mg before bedtime. 60 tablet 5 [DISCONTINUED] amoxicillin-clavulanate (Augmentin) 875-125 MG tablet Take 1 tablet (875 mg) by mouth in the morning and 1 tablet (875 mg) before bedtime. 60 tablet 0 [DISCONTINUED] rizatriptan TELECOMMUNICATIONS LINESWORKER (Maxalt-TELECOMMUNICATIONS LINESWORKER) 10 MG disintegrating tablet Take 1 tablet (10 mg) by mouth 1 (one) time if needed for migraine May repeat in 2 hours if unresolved. Do not exceed 30 mg in 24 hours. 9 tablet 0 No current facility-administered medications on file prior to visit. Objective Last Recorded Vitals Vitals: 09/17/24 0804 BP: 115/77 Pulse: 87 ENT Physical Exam Constitutional Appearance: patient appears well-developed, well-nourished and well-groomed, Head and Face Appearance: head appears normal and face appears atraumatic; Ear Ear Canals: right ear canal normal; left ear canal normal; Tympanic Membranes: right tympanic membrane normal; left tympanic membrane normal; Nose External Nose: nares patent bilaterally; external nose normal; Internal Nose: septum normal; Oral Cavity/Oropharynx Tongue: normal; Oral mucosa: normal; Hard palate: normal; Soft palate: normal; Tonsils: normal; Neck Neck: neck normal; neck palpation normal; Thyroid: thyroid normal; Respiratory Inspection: breathing unlabored; normal breathing rate; Auscultation: breath sounds are clear; Cardiovascular Inspection: extremities are warm and well perfused; no peripheral edema present; Auscultation: regular rate and rhythm; Assessment/Plan Diagnoses and all orders for this visit: Chronic rhinosinusitis - Ambulatory referral to ENT Pt has sx c/w chronic (>12 weeks) sinusitis. I will tx with a one mo aggressive sinus regimen, including 4 weeks abx, nasal steroids, prednisone, antihistamines, and BID saline irrigations. If sinus sx persist, and pt has followed regimen, in one month I will obtain an IG CT sinus to evaluate for surgical pathology and plan surgical tx. Check RAST documented in this encounter [facility] 08-17-2024 History of Present illness Narrative Images from the original note were not included. Patient: Azul Allen : 1990 PCP: Tez Agnel MD SUBJECTIVE This is a 34 y.o. female that presents today for a chief complaint of painful right 4th digit. She states proximally 4 weeks ago she stubbed her right 4th digit on her computer chair. He has had pain and swelling him of the right 4th toe since the issue she has been attempting stiffer soled shoes anti-inflammatory medications to no avail.. Allergies: Allergies Allergen Reactions Hydrocodone-Acetaminophen GI intolerance Iodine Hives, Itching, Rash and Unknown Wound Dressing Adhesive Hives, Itching and Rash Past Medical History: Past Medical History: Diagnosis Date Calculus of gallbladder without cholecystitis without obstruction Dysmenorrhea Dyspareunia, female Edema of both legs Endometriosis MARGARETH (generalized anxiety disorder) ([facility]/HCC) Genital warts GERD without esophagitis HGSIL on Pap smear of cervix Hypothyroidism (CMS/HCC) Morbid obesity with BMI of 45.0-49.9, adult (CMS/HCC) Plantar fasciitis of right foot Polycystic ovarian syndrome Prediabetes Recurrent major depression (HCC) ([facility]/HCC) Smoker Vitamin D deficiency Medications: Current Outpatient Medications: amoxicillin-clavulanate (Augmentin) 875-125 MG tablet, Take 1 tablet (875 mg) by mouth in the morning and 1 tablet (875 mg) before bedtime., Disp: 60 tablet, Rfl: 0 buPROPion XL (Wellbutrin XL) 150 MG 24 hr tablet, Take 1 tablet (150 mg) by mouth Daily, Disp: 30 tablet, Rfl: 5 buPROPion XL (Wellbutrin XL) 300 MG 24 hr tablet, Take 1 tablet (300 mg) by mouth Daily, Disp: 90 tablet, Rfl: 3 cholecalciferol (Vitamin D-3) 50 MCG (2000 UT) tablet, Take 1 tablet (50 mcg) by mouth Daily, Disp: 90 tablet, Rfl: 3 fluticasone (Flonase) 50 MCG/ACT nasal spray, Administer 2 sprays into each nostril Daily Shake gently. Before first use, prime pump. After use, clean tip and replace cap., Disp: 16 g, Rfl: 2 furosemide (Lasix) 40 MG tablet, Take 1 tablet (40 mg) by mouth Daily as needed (as needed), Disp: 30 tablet, Rfl: 5 gabapentin (Neurontin) 100 MG capsule, Take 100 mg by mouth at bedtime, Disp: , Rfl: hydrOXYzine HCl (Atarax) 50 MG tablet, Take 1 tablet (50 mg) by mouth 4 (four) times a day as needed for anxiety, Disp: 60 tablet, Rfl: 3 levothyroxine (Synthroid, Levoxyl) 100 MCG tablet, TAKE 1 TABLET BY MOUTH EVERY MORNING ON AN EMPTY STOMACH, Disp: 30 tablet, Rfl: 11 pantoprazole (ProtoNix) 40 MG EC tablet, TAKE 1 TABLET BY MOUTH DAILY, Disp: 300 tablet, Rfl: 0 potassium chloride CR (K-Tab) 20 MEQ ER tablet, Take 1 tablet (20 mEq) by mouth Daily as needed (Edema), Disp: 90 tablet, Rfl: 3 rizatriptan TELECOMMUNICATIONS LINESWORKER (Maxalt-TELECOMMUNICATIONS LINESWORKER) 10 MG disintegrating tablet, Take 1 tablet (10 mg) by mouth 1 (one) time if needed for migraine May repeat in 2 hours if unresolved. Do not exceed 30 mg in 24 hours., Disp: 9 tablet, Rfl: 0 topiramate (Topamax) 50 MG tablet, Take 50 mg by mouth in the morning and 50 mg before bedtime., Disp: 60 tablet, Rfl: 5 ROS: Constitutional: Denies fever, chills, nausea, vomiting GI: Denies abdominal pain, cramping, loose stool, gastric ulcers Musculoskeletal: Denies low back pain, knee pain, systemic arthritis Neurologic: Denies burning, tingling, transient paralysis OBJECTIVE Physical examination: Vascular: Dorsalis pedis posterior tibial pulses are palpable bilateral, no edema noted Neuro: [place] 5.07 monofilament intact, vibratory sensation intact Derm: All hair growth noted skin temperature is warm to cool knees to toes Musculoskeletal: Muscle strength +5/5 all intrinsic and extrinsic muscles tested XRAY: Three views were taken today AP/MO/LAT foot: Right 4th digit PIPJ joint fracture intra-articular mildly displaced ASSESSMENT 1. Closed displaced fracture of proximal phalanx of lesser toe of right foot, initial encounter 2. Right foot pain 3. Contusion of right foot, initial encounter PLAN Educated the patient on my clinical and radiographic findings I explained to her that she does have a mild minimally displaced fracture of the PIPJ joint right 4th digit. Recommended rest ice and elevation educated her on how to felecia tape the toe to the 3rd digit. She is to wear stiffer soled shoe and follow up with me in 3 weeks for radiographs to assess healing. ELIEL Person documented in this encounter [facility] 07-28-2024 History of Present illness Narrative Associated Problem(s): Chronic rhinosinusitis Symptoms for weeks and minimal improvement. Start augmentin x 30 days. Start flonase daily. If no improvement in symptoms will refer to ENT. Images from the original note were not included. Subjective Patient ID: Azul Allen is a 34 y.o. female who presents for Follow-up (Er f/up raz leroy, sinus infection). C/o sinus problems for several weeks. To urgent care mid June and given antibiotics. No improvement in symptoms and to ER 07/05. Given prednisone and zithromax. Overall symptoms improved but continues to have sinus symptoms. Increased congestion and rhinorrhea. CADET and sinus pressure in forehead and cheeks along with postnasal drip. Ears plugged and hearing muffled. Mild cough due to drainage and worse when laying down. C/o cheeks swollen and tender in am. Using OTC PRN and not much relief. Review of Systems Respiratory: Negative for cough, shortness of breath and wheezing. Cardiovascular: Negative for chest pain and palpitations. Gastrointestinal: Negative for abdominal pain, diarrhea, nausea and vomiting. Genitourinary: Negative for dysuria. Objective Physical Exam Constitutional: General: She is not in acute distress. Appearance: Normal appearance. HENT: Head: Normocephalic. Ears: Comments: Bilateral TM clear but bulging with fluid Mouth/Throat: Comments: Postnasal drip Eyes: Extraocular Movements: Extraocular movements intact. Pupils: Pupils are equal, round, and reactive to light. Cardiovascular: Rate and Rhythm: Normal rate and regular rhythm. Heart sounds: No murmur heard. No friction rub. No gallop. Pulmonary: Effort: Pulmonary effort is normal. Breath sounds: Normal breath sounds. No wheezing, rhonchi or rales. Abdominal: General: Bowel sounds are normal. There is no distension. Palpations: Abdomen is soft. Tenderness: There is no abdominal tenderness. There is no guarding or rebound. Musculoskeletal: Cervical back: Neck supple. Right lower leg: No edema. Left lower leg: No edema. Neurological: Mental Status: She is alert. Assessment/Plan Problem List Items Addressed This Visit Chronic rhinosinusitis - Primary Symptoms for weeks and minimal improvement. Start augmentin x 30 days. Start flonase daily. If no improvement in symptoms will refer to ENT. Relevant Medications fluticasone (Flonase) 50 MCG/ACT nasal spray amoxicillin-clavulanate (Augmentin) 875-125 MG tablet documented in this encounter [facility] 07-05-2024 Hospital Discharge instructions Patient Education 07/05/2024 19:13:53 Acute Bronchitis, Adult, [id number] Acute Bronchitis, Adult Acute bronchitis is when air tubes in the lungs (bronchi) suddenly get swollen. The condition can make it hard for you to breathe. In adults, acute bronchitis usually goes away within 2 weeks. A cough caused by bronchitis may last up to 3 weeks. Smoking, allergies, and asthma can make the condition worse. What are the causes? Germs that cause cold and flu (viruses). The most common cause of this condition is the virus that causes the common cold. Bacteria. Substances that bother (irritate) the lungs, including: ?Smoke from cigarettes and other types of tobacco. ?Dust and pollen. ?Fumes from chemicals, gases, or burned fuel. ?Indoor or outdoor air pollution. What increases the risk? A weak body's defense system. This is also called the immune system. Any condition that affects your lungs and breathing, such as asthma. What are the signs or symptoms? A cough. Coughing up clear, yellow, or green mucus. Making high-pitched whistling sounds when you breathe, most often when you breathe out (wheezing). Runny or stuffy nose. Having too much mucus in your lungs (chest congestion). Shortness of breath. Body aches. A sore throat. How is this treated? Acute bronchitis may go away over time without treatment. Your doctor may tell you to: Drink more fluids. This will help thin your mucus so it is easier to cough up. Use a device that gets medicine into your lungs (inhaler). Use a vaporizer or a humidifier. These are machines that add water to the air. This helps with coughing and poor breathing. Take a medicine that thins mucus and helps clear it from your lungs. Take a medicine that prevents or stops coughing. It is not common to take an antibiotic medicine for this condition. Follow these instructions at home: Take knov-rlt-rwuczub and prescription medicines only as told by your doctor. Use an inhaler, vaporizer, or humidifier as told by your doctor. Take two teaspoons (10 mL) of honey at bedtime. This helps lessen your coughing at night. Drink enough fluid to keep your pee (urine) pale yellow. Do not smoke or use any products that contain nicotine or tobacco. If you need help quitting, ask your doctor. Get a lot of rest. Return to your normal activities when your doctor says that it is safe. Keep all follow-up visits. How is this prevented? Wash your hands often with soap and water for at least 20 seconds. If you cannot use soap and water, use hand ditcher operator. Avoid contact with people who have cold symptoms. Try not to touch your mouth, nose, or eyes with your hands. Avoid breathing in smoke or chemical fumes. Make sure to get the flu shot every year. Contact a doctor if: Your symptoms do not get better in 2 weeks. You have trouble coughing up the mucus. Your cough keeps you awake at night. You have a fever. Get help right away if: You cough up blood. You have chest pain. You have very bad shortness of breath. You faint or keep feeling like you are going to faint. You have a very bad headache. Your fever or chills get worse. These symptoms may be an emergency. Get help right away. Call your local emergency services (911 in the [place] Do not wait to see if the symptoms will go away. Do not drive yourself to the hospital. Summary Acute bronchitis is when air tubes in the lungs (bronchi) suddenly get swollen. In adults, acute bronchitis usually goes away within 2 weeks. Drink more fluids. This will help thin your mucus so it is easier to cough up. Take xovr-dci-hlzbpfm and prescription medicines only as told by your doctor. Contact a doctor if your symptoms do not improve after 2 weeks of treatment. This information is not intended to replace advice given to you by your health care provider. Make sure you discuss any questions you have with your health care provider. Document Revised: 12/26/2021 Document Reviewed: 12/26/2021 [employer] Patient Education 2023 [employer] Follow Up Care 07/05/2024 17:05:30 With:TEZ ANGEL Address: [address] [place], [place] [address] [address] Business (1) When:07/08/2024 19:01:22 Comments:Call Dr for diagnosis based follow up [facility] 07-05-2024 Note ED Patient Education Note Pulmonary Medicine Acute Bronchitis, Adult Acute bronchitis is when air tubes in the lungs (bronchi) suddenly get swollen. The condition can make it hard for you to breathe. In adults, acute bronchitis usually goes away within 2 weeks. A cough caused by bronchitis may last up to 3 weeks. Smoking, allergies, and asthma can make the condition worse. What are the causes? Germs that cause cold and flu (viruses). The most common cause of this condition is the virus that causes the common cold. ??? Bacteria. ??? Substances that bother (irritate) the lungs, including: ? Smoke from cigarettes and other types of tobacco. ? Dust and pollen. ? Fumes from chemicals, gases, or burned fuel. ? Indoor or outdoor air pollution. What increases the risk? A weak body's defense system. This is also called the immune system. ??? Any condition that affects your lungs and breathing, such as asthma. What are the signs or symptoms? A cough. ??? Coughing up clear, yellow, or green mucus. ??? Making high-pitched whistling sounds when you breathe, most often when you breathe out (wheezing). ??? Runny or stuffy nose. ??? Having too much mucus in your lungs (chest congestion). ??? Shortness of breath. ??? Body aches. ??? A sore throat. How is this treated? Acute bronchitis may go away over time without treatment. Your doctor may tell you to: ??? Drink more fluids. This will help thin your mucus so it is easier to cough up. ??? Use a device that gets medicine into your lungs (inhaler). ??? Use a vaporizer or a humidifier. These are machines that add water to the air. This helps with coughing and poor breathing. ??? Take a medicine that thins mucus and helps clear it from your lungs. ??? Take a medicine that prevents or stops coughing. It is not common to take an antibiotic medicine for this condition. Follow these instructions at home: ??? Take atmm-vdf-nwqhydq and prescription medicines only as told by your doctor. ??? Use an inhaler, vaporizer, or humidifier as told by your doctor. ??? Take two teaspoons (10 mL) of honey at bedtime. This helps lessen your coughing at night. ??? Drink enough fluid to keep your pee (urine) pale yellow. ??? Do not smoke or use any products that contain nicotine or tobacco. If you need help quitting, ask your doctor. ??? Get a lot of rest. ??? Return to your normal activities when your doctor says that it is safe. ??? Keep all follow-up visits. How is this prevented? Wash your hands often with soap and water for at least 20 seconds. If you cannot use soap and water, use hand ditcher operator. ??? Avoid contact with people who have cold symptoms. ??? Try not to touch your mouth, nose, or eyes with your hands. ??? Avoid breathing in smoke or chemical fumes. ??? Make sure to get the flu shot every year. Contact a doctor if: ??? Your symptoms do not get better in 2 weeks. ??? You have trouble coughing up the mucus. ??? Your cough keeps you awake at night. ??? You have a fever. Get help right away if: ??? You cough up blood. ??? You have chest pain. ??? You have very bad shortness of breath. ??? You faint or keep feeling like you are going to faint. ??? You have a very bad headache. ??? Your fever or chills get worse. These symptoms may be an emergency. Get help right away. Call your local emergency services (911 in the [place] ??? Do not wait to see if the symptoms will go away. ??? Do not drive yourself to the hospital. Summary ??? Acute bronchitis is when air tubes in the lungs (bronchi) suddenly get swollen. In adults, acute bronchitis usually goes away within 2 weeks. ??? Drink more fluids. This will help thin your mucus so it is easier to cough up. ??? Take knml-tlr-nocecin and prescription medicines only as told by your doctor. ??? Contact a doctor if your symptoms do not improve after 2 weeks of treatment. This information is not intended to replace advice given to you by your health care provider. Make sure you discuss any questions you have with your health care provider. Document Revised: 12/26/2021 Document Reviewed: 12/26/2021 [employer] Patient Education ? 2023 [employer]. [facility] 06-28-2024 Note Patient Education Infectious Disease Bacterial Conjunctivitis, Adult Bacterial conjunctivitis is an infection of your conjunctiva. This is the clear membrane that covers the white part of your eye and the inner part of your eyelid. This infection can make your eye: ? Red or pink. ? Itchy or irritated. This condition spreads easily from person to person (is contagious) and from one eye to the other eye. What are the causes? This condition is caused by germs (bacteria). You may get the infection if you come into close contact with: ? A person who has the infection. ? Items that have germs on them (are contaminated), such as face towels, contact lens solution, or eye makeup. What increases the risk? You are more likely to get this condition if: ? You have contact with people who have the infection. ? You wear contact lenses. ? You have a sinus infection. ? You have had a recent eye injury or surgery. ? You have a weak body defense system (immune system). ? You have dry eyes. What are the signs or symptoms? ? Thick, yellowish discharge from the eye. ? Tearing or watery eyes. ? Itchy eyes. ? Burning feeling in your eyes. ? Eye redness. ? Swollen eyelids. ? Blurred vision. How is this treated? ? Antibiotic eye drops or ointment. ? Antibiotic medicine taken by mouth. This is used for infections that do not get better with drops or ointment or that last more than 10 days. ? Cool, wet cloths placed on the eyes. ? Artificial tears used 2?6 times a day. Follow these instructions at home: Medicines ? Take or apply your antibiotic medicine as told by your doctor. Do not stop using it even if you start to feel better. ? Take or apply xgfq-vdz-znmjuec and prescription medicines only as told by your doctor. ? Do not touch your eyelid with the eye-drop bottle or the ointment tube. Managing discomfort ? Wipe any fluid from your eye with a warm, wet washcloth or a cotton ball. ? Place a clean, cool, wet cloth on your eye. Do this for 10?20 minutes, 3?4 times a day. General instructions ? Do not wear contacts until the infection is gone. Wear glasses until your doctor says it is okay to wear contacts again. ? Do not wear eye makeup until the infection is gone. Throw away old eye makeup. ? Change or wash your pillowcase every day. ? Do not share towels or washcloths. ? Wash your hands often with soap and water for at least 20 seconds and especially before touching your face or eyes. Use paper towels to dry your hands. ? Do not touch or rub your eyes. ? Do not drive or use heavy machinery if your vision is blurred. Contact a doctor if: ? You have a fever. ? You do not get better after 10 days. Get help right away if: ? You have a fever and your symptoms get worse all of a sudden. ? You have very bad pain when you move your eye. ? Your face: ? Hurts. ? Is red. ? Is swollen. ? You have sudden loss of vision. Summary ? Bacterial conjunctivitis is an infection of your conjunctiva. ? This infection spreads easily from person to person. ? Wash your hands often with soap and water for at least 20 seconds and especially before touching your face or eyes. Use paper towels to dry your hands. ? Take or apply your antibiotic medicine as told by your doctor. ? Contact a doctor if you have a fever or you do not get better after 10 days. This information is not intended to replace advice given to you by your health care provider. Make sure you discuss any questions you have with your health care provider. Document Revised: 12/05/2021 Document Reviewed: 12/05/2021 [employer] Patient Education ? 2023 [employer]. Viral Respiratory Infection A viral respiratory infection is an illness that affects parts of the body that are used for breathing. These include the lungs, nose, and throat. It is caused by a germ called a virus. Some examples of this kind of infection are: ? A cold. ? The flu (influenza). ? A respiratory syncytial virus (RSV) infection. What are the causes? This condition is caused by a virus. It spreads from person to person. You can get the virus if: ? You breathe in droplets from someone who is sick. ? You come in contact with people who are sick. ? You touch mucus or other fluid from a person who is sick. What are the signs or symptoms? Symptoms of this condition include: ? A stuffy or runny nose. ? A sore throat. ? A cough. ? Shortness of breath. ? Trouble breathing. ? Yellow or green fluid in the nose. Other symptoms may include: ? A fever. ? Sweating or chills. ? Tiredness (fatigue). ? Achy muscles. ? A headache. How is this treated? This condition may be treated with: ? Medicines that treat viruses. ? Medicines that make it easy to breathe. ? Medicines that are sprayed into the nose. ? Acetaminophen or NSAIDs, such as ibuprofen, to treat fever. Follow these ins (more content not included)... [facility] 10-25-2023 Hospital Discharge instructions Follow Up Care 10/25/2023 14:17:21 With:Chay CASTRO Address: [address] , [place] [address]- Business (1) When:10/28/2023 16:39:28 With:TEZ ANGEL Address: [address] [place] [address] Business (1) When:Within 3 Day(s) [facility] 10-25-2023 Evaluation + Plan note Extrac shankar [...] 07/08/23 * Enteric Panel by PCR 07/08/23 [facility]11-29-2023 Evaluation + Plan noteExtracted from: Title:ANES Post-operative Note - General Author: Mauricio Chang Jr., DO Date:08/06/23 Plan Transfer/Discharge: Transfer/Discharge Discharge when meets criteria ( From PACU to Ambulatory Surgery Unit, and To home ). Extracted from: Title:ANES Pre-operative Note - Adult Author:Mauricio Guerrero Jr., DO Date:08/06/23 Plan [employer] [employer] (ASA) physical status classification: Class IV. Anesthetic Preoperative Plan: Anesthesia General. Future Appointments Appointment Date:08/11/2023 01:30:00 PM Scheduled Provider:Glenn Gupta MD Location:.[facility] Appointment Type:Cardiology New Patient (FT) Appointment Date:08/15/2023 09:20:00 AM Scheduled Provider:Alexx Gupta MD Location:[facility] Appointment Type: Post Op 15 Future Scheduled Tests Laboratory* Fecal WBC Lactoferrin 07/08/23 * Giardia lamblia, Direct Detection EIA 07/08/23 * O & P Exam, Routine 07/08/23 * Clostridium Difficile PCR 07/08/23 * Enteric Panel by PCR 07/08/23 [facility]11-29-2023 Hospital Discharge instructions Patient Education 08/06/2023 09:54:35 [...] Follow these instructions at home: Medicines Take tgqm-lgq-mrbthjn and prescription medicines only as told by [...] to keep your urine pale yellow. ?Take kkvz-mox-zkiasfs or prescription medicines. ?Eat foods that are [...] and water are not available, use hand ditcher operator. ?Change your dressing as told by your [...] provider. Document Revised: 02/26/2022 Document Reviewed: 02/26/2022 [employer] Patient Education 2022 [employer]. Follow Up Care 07/21/2023 15:18:13 With:Alexx Gupta Address: [address] [phone] Business (1) When: Unknown Comments:Appointment has already been scheduled [facility]11-29-2023 NoteHistory and Physical Update H&P Reviewed. Patient [...] Brother. Hypertension: Mother, Father and Brother. TIA: Mother.[facility]11-20-2023 Note [id number] Discharge instructions Patient Education [...] ?Hypothyroidism. ?Polycystic ovarian syndrome (PCOS). ?Binge-eating disorder. ?[place] syndrome. Taking certain medicines, such as steroids, [...] food choices, such as grocery stores and farmers' markets. What are the signs or symptoms? [...] and how much exercise you get. Take xtex-jtl-cfnwics and prescription medicines only as told by [...] provider. Document Revised: 04/02/2022 Document Reviewed: 04/02/2022 [employer] Patient Education 2022 [employer]. [facility] [place] 10-31-2023 Hospital Discharge instructions Patient Education 07/08/2023 [...] water added (diluted fruit juice). Eat bland, clio-gc-ruehyl foods in small amounts as you are able. These foods include bananas, applesauce, rice, lean meats, toast, and crackers. Avoid drinking fluids that contain a lot of sugar or caffeine, such as energy drinks, sports drinks, and soda. Avoid alcohol. Avoid spicy or fatty foods. General instructions Take optj-bmg-hzfwtzh and prescription medicines only as told by your health care provider. Rest at home while you recover. Drink enough fluid to keep your urine pale yellow. Breathe slowly and deeply when you feel nauseous. Avoid smelling things that have strong odors. Wash your hands often using soap and water for at least 20 seconds. If soap and water are not available, use hand ditcher operator. Make sure that everyone in your household [...] recommendations for eating and drinking and take flsp-usk-nllhqzy and prescription medicinesonly as told by your [...] provider. Document Revised: 03/01/2022 Document Reviewed: 03/01/2022 [employer] Patient Education 2022 [employer]. Follow Up Care 06/25/2023 15:34:03 With:Melissa Nunez CNP Address: When:1 to 2 weeks Comments:Following EGD/Colonoscopy. [facility] 10-31-2023 Evaluation + Plan note Future Scheduled Tests Laboratory* Fecal WBC Lactoferrin 07/08/23 * Giardia lamblia, Direct Detection EIA 07/08/23 * O & P Exam, Routine 07/08/23 * Clostridium Difficile PCR 07/08/23 * Enteric Panel by PCR 07/08/23 Radiology* US Gallbladder 07/08/23 [facility] 10-31-2023 Evaluation + Plan note Future Scheduled Tests Laboratory* Fecal WBC Lactoferrin 07/08/23 * Giardia lamblia, Direct Detection EIA 07/08/23 * O & P Exam, Routine 07/08/23 * Clostridium Difficile PCR 07/08/23 * Enteric Panel by PCR 07/08/23 [facility]10-16-2023 Hospital Discharge instructions Patient Education 06/23/2023 12:53:51 [...] medicines. These include steroids, antibiotics, and some aqkq-pir-baqobrw medicines, such as aspirin or ibuprofen. Having [...] Follow these instructions at home: Medicines Take hpft-ccy-ybxauiy and prescription medicines only as told by [...] provider. Document Revised: 12/29/2021 Document Reviewed: 12/29/2021 [employer] Patient Education 2022 [employer]. Follow Up Care 06/23/2023 09:20:57 With:Michael Patino Address: [address] [place] [address], [address] [phone] Business (1) When:06/26/2023 12:35:39 With:TEZ ANGEL Address: [address] [place] [address] Business (1) When:06/26/2023 12:35:32 [facility]10-16-2023 Evaluation + Plan noteExtracted from: Title:ED Note [...] With Cult Reflex XR Chest Single View [facility]04-02-2023 NotePROCEDURE: US PELVIS AND TRANSVAG, 12/06/2022 10:17 [...] Electronically authenticated by: MEGAN HINOJOSA Date: 2022-12-08 11:58[facility]02-14-2023 NoteCONSULTATION CONSULTATION DATE: 10/22/2022 CHIEF COMPLAINT: Right [...] stopped the steroids for approximately a month.[id number] Evaluation note* Encounter Date Diagnosis Assessment Notes [...] no improvement in 2 to 3 days Fon Other 11-15-2022 NoteCONSULTATION CONSULTATION DATE: 07/23/2022 CHIEF [...] like to proceed. CC: Tez Angel M.D.[facility] [id number] NoteCONSULTATION PROCEDURE DATE: 07/23/2022 PREOPERATIVE DIAGNOSIS: Scar [...] will be followed up in the office.[facility] 06-27-2022 History general Narrative - Reported* Type Description Date Medical History ANXIETY AND DEPRESSION Medical History GERD Medical History RIGHT FOOT PAIN Surgical History LEP PROCEDURE 2018 Surgical History LAPROSCOPY PROCEDURE 2018 Surgical History MULTIPLE SURGERIES 06/2019 Fon Other 09-27-2022 NoteCONSULTATION CONSULTATION DATE: 06/04/2022 CHIEF [...] in the office subsequent to authorization. [facility] [id number] Evaluation note* Encounter Date Diagnosis Assessment Notes [...] understanding and is agreeable to treatment plan Fon Other Evaluation + Plan note Future Appointments Appointment Date:07/08/2023 02:00:00 PM Scheduled Provider:Melissa Nunez CNP Location:[facility] Appointment Type:[facility] Follow Up [facility] General [facility] [place] Evaluation + Plan note Future Appointments Appointment Date:07/21/2023 02:40:00 PM Scheduled Provider:Alexx Gupta MD Location:[facility] Appointment Type: New 30 Future Scheduled Tests Laboratory* Fecal WBC Lactoferrin 07/08/23 * Giardia lamblia, Direct Detection EIA 07/08/23 * O & P Exam, Routine 07/08/23 * Clostridium Difficile PCR 07/08/23 * Enteric Panel by PCR [facility]08[facility] App[facility]ments Appointment Date:2023 07:00:00 AM Scheduled Provider: [facility] Type:CT Sinus/Orbits/Maxillofacial (FT) Appointment Date:07/25/2023 09:30:00 AM Scheduled Provider: Location:[facility] Appointment Type:Surgical PAT FT Appointment Date:08/06/2023 01:00:00 PM Scheduled Provider: Location:[facility] Appointment Type:Surgery FT Appointment Date:08/11/2023 01:30:00 PM Scheduled Provider:Glenn Gupta MD [facility] Type:Cardiology New Patient (FT) Appointment Date:08/15/2023 09:20:00 AM Scheduled Provider:Alexx Gupta MD Location:[facility] Appointment Type: Post Op 15 Future Scheduled Tests Laboratory* Fecal WBC Lactoferrin 07/08/23 * Giardia lamblia, Direct Detection EIA 07/08/23 * O & P Exam, Routine 07/08/23 * Clostridium Difficile PCR 07/08/23 * Enteric Panel by PCR 07/08/23 Radiology* CT Maxillofacial w/o Contrast 07/24/23 [facility] [place] Evaluation + Plan note Future Appointments Appointment Date:07/25/2023 09:30:00 AM Scheduled Provider: Location:[facility] Appointment Type:Surgical PAT FT Appointment Date:08/06/2023 01:00:00 PM Scheduled Provider: Location:[facility] Appointment Type:Surgery FT Appointment Date:08/11/2023 01:30:00 PM Scheduled Provider:Glenn Gupta MD [facility] Type:Cardiology New Patient (FT) Appointment Date:08/15/2023 09:20:00 AM Scheduled Provider:Alexx Gupta MD Location:[facility] Appointment Type: Post Op 15 Future Scheduled Tests Laboratory* Fecal WBC Lactoferrin 07/08/23 * Giardia lamblia, Direct Detection EIA 07/08/23 * O & P Exam, Routine 07/08/23 * Clostridium Difficile PCR 07/08/23 * Enteric Panel by PCR [facility]08[facility]23 [facility] App[facility]ments Appointment Date:08/06/2023 01:00:00 PM Scheduled Provider: Location:[facility] Appointment Type:Surgery FT Appointment Date:08/11/2023 01:30:00 PM Scheduled Provider:Glenn Gupta MD [facility] Type:Cardiology New Patient (FT) Appointment Date:08/15/2023 09:20:00 AM Scheduled Provider:Alexx Gupta MD Location:[facility] Appointment Type: Post Op 15 Future Scheduled Tests Laboratory* Fecal WBC Lactoferrin 07/08/23 * Giardia lamblia, Direct Detection EIA 07/08/23 * O & P Exam, Routine 07/08/23 * Clostridium Difficile PCR 07/08/23 * Enteric Panel by PCR 07/08/23 [facility] Future Appointments Appointment Date:08/15/2023 09:20:00 AM Scheduled Provider:Alexx Gupta MD Location:[facility] Appointment Type: Post Op 15 Appointment Date:10/20/2023 03:45:00 PM Scheduled Provider:Glenn Gupta MD [facility] Type:Cardiology Follow Up (FT) Future Scheduled Tests Laboratory* Fecal WBC Lactoferrin 07/08/23 * Giardia lamblia, Direct Detection EIA 07/08/23 * O & P Exam, Routine 07/08/23 * Clostridium Difficile PCR 07/08/23 * Enteric Panel by PCR 07/08/23 Radiology* EC Stress Echo Complete w/ Contrast [facility]11[facility]23 [facility] Future App[facility]ments Appointment Date:08/15/2023 09:20:00 AM Scheduled Provider:Alexx Gupta MD Location:[facility] Appointment Type:[facility] 15 Appointment Date:10/20/2023 03:45:00 PM Scheduled Provider:Glenn Gupta MD [facility] Type:Cardiology Follow Up (FT) Future Scheduled Tests Laboratory* Fecal WBC Lactoferrin 07/08/23 * Giardia lamblia, Direct Detection EIA 07/08/23 * O & P Exam, Routine 07/08/23 * Clostridium Difficile PCR 07/08/23 * Enteric Panel by PCR 07/08/23 Radiology* EC Stress Echo Complete w/ Contrast 08/11/23 [facility] Evaluation + Plan note Future Appointments Appointment Date:10/20/2023 03:45:00 PM Scheduled Provider:Glenn Gupta MD [facility] Type:Cardiology Follow Up (FT) Future Scheduled Tests Laboratory* Fecal WBC Lactoferrin 07/08/23 * Giardia lamblia, Direct Detection EIA 07/08/23 * O & P Exam, Routine 07/08/23 * Clostridium Difficile PCR 07/08/23 * Enteric Panel by PCR 07/08/23 Radiology* EC Stress Echo Complete w/ Contrast 08/11/23 [facility] Evaluation + Plan note Future Appointments Appointment Date:10/20/2023 03:45:00 PM Scheduled Provider:Glenn Gupta MD [facility] Type:Cardiology Follow Up (FT) Future Scheduled Tests Laboratory* Fecal WBC Lactoferrin 07/08/23 * Giardia lamblia, Direct Detection EIA 07/08/23 * O & P Exam, Routine 07/08/23 * Clostridium Difficile PCR 07/08/23 * Enteric Panel by PCR 07/08/23 [facility] note[facility] assessment information available [facility] Work Phone: Evaluation note* Diagnosis Mild recurrent major depression (HCC) (CMS/HCC)- Primary Major depressive disorder, recurrent episode, mild Edema of both legs Edema [facility] Diagnosis Mild recurrent major depression (HCC) (CMS/HCC)- Primary Major depressive disorder, recurrent episode, mild MARGARETH (generalized anxiety disorder) (CMS/HCC) Generalized anxiety disorder Ocular migraine (CMS/HCC) Variants of migraine, not elsewhere classified, without mention of intractable migraine without mention of status migrainosus Edema of both legs Edema GERD without esophagitis Esophageal reflux Edema of both legs- Primary Edema Morbid obesity with BMI of 45.0-49.9, adult (CMS/HCC) SOB (shortness of breath) Shortness of breath Ocular migraine (CMS/HCC) Variants of migraine, not elsewhere classified, without mention of intractable migraine without mention of status migrainosus Mild recurrent major depression (HCC) (CMS/HCC)- Primary Major depressive disorder, recurrent episode, mild MARGARETH (generalized anxiety disorder) (CMS/HCC) Generalized anxiety disorder Migraine without aura and without status migrainosus, not intractable (CMS/HCC) Edema of both legs Edema GERD without esophagitis Esophageal reflux MARGARETH (generalized anxiety disorder) ([facility]/HCC) Generalized anxiety disorder [facility]* Diagnosis Mild recurrent major depression (HCC) (CMS/HCC)- Primary Major depressive disorder, recurrent episode, mild MARGARETH (generalized anxiety disorder) (CMS/HCC) Generalized anxiety disorder Ocular migraine (CMS/HCC) Variants of migraine, not elsewhere classified, without mention of intractable migraine without mention of status migrainosus Edema of both legs Edema GERD without esophagitis Esophageal reflux Edema of both legs- Primary Edema Morbid obesity with BMI of 45.0-49.9, adult (CMS/HCC) SOB (shortness of breath) Shortness of breath Ocular migraine (CMS/HCC) Variants of migraine, not elsewhere classified, without mention of intractable migraine without mention of status migrainosus Mild recurrent major depression (HCC) (CMS/HCC)- Primary Major depressive disorder, recurrent episode, mild MARGARETH (generalized anxiety disorder) (CMS/HCC) Generalized anxiety disorder Migraine without aura and without status migrainosus, not intractable (CMS/HCC) Edema of both legs Edema GERD without esophagitis Esophageal reflux Vitamin D deficiency, unspecified [facility]* Diagnosis Mild recurrent major depression (HCC) (CMS/HCC)- Primary Major depressive disorder, recurrent episode, mild MARGARETH (generalized anxiety disorder) ([facility]/HCC) Generalized anxiety disorder Ocular migraine ([facility]/HCC) Variants of migraine, not elsewhere classified, without mention of intractable migraine without mention of status migrainosus Edema of both legs Edema GERD without esophagitis Esophageal reflux Edema of both legs- Primary Edema Morbid obesity with BMI of 45.0-49.9, adult (CMS/HCC) SOB (shortness of breath) Shortness of breath Ocular migraine (CMS/HCC) Variants of migraine, not elsewhere classified, without mention of intractable migraine without mention of status migrainosus Mild recurrent major depression (HCC) (CMS/HCC)- Primary Major depressive disorder, recurrent episode, mild MARGARETH (generalized anxiety disorder) (CMS/HCC) Generalized anxiety disorder Migraine without aura and without status migrainosus, not intractable (CMS/HCC) Edema of both legs Edema GERD without esophagitis Esophageal reflux Chronic rhinosinusitis- Primary Unspecified sinusitis (chronic) [facility]* Diagnosis Mild recurrent major depression (HCC) (CMS/HCC)- Primary Major depressive disorder, recurrent episode, mild MARGARETH (generalized anxiety disorder) (CMS/HCC) Generalized anxiety disorder Ocular migraine (CMS/HCC) Variants of migraine, not elsewhere classified, without mention of intractable migraine without mention of status migrainosus Edema of both legs Edema GERD without esophagitis Esophageal reflux Edema of both legs- Primary Edema Morbid obesity with BMI of 45.0-49.9, adult (CMS/HCC) SOB (shortness of breath) Shortness of breath Ocular migraine (CMS/HCC) Variants of migraine, not elsewhere classified, without mention of intractable migraine without mention of status migrainosus Mild recurrent major depression (HCC) (CMS/HCC)- Primary Major depressive disorder, recurrent episode, mild MARGARETH (generalized anxiety disorder) (CMS/HCC) Generalized anxiety disorder Migraine without aura and without status migrainosus, not intractable (CMS/HCC) Edema of both legs Edema GERD without esophagitis Esophageal reflux Chronic rhinosinusitis- Primary Unspecified sinusitis (chronic) Closed displaced fracture of proximal phalanx of lesser toe of right foot, initial encounter- Primary Right foot pain Pain in soft tissues of limb Contusion of right foot, initial encounter [facility]* Diagnosis Mild recurrent major depression (HCC) (CMS/HCC)- Primary Major depressive disorder, recurrent episode, mild MARGARETH (generalized anxiety disorder) (CMS/HCC) Generalized anxiety disorder Ocular migraine (CMS/HCC) Variants of migraine, not elsewhere classified, without mention of intractable migraine without mention of status migrainosus Edema of both legs Edema GERD without esophagitis Esophageal reflux Edema of both legs- Primary Edema Morbid obesity with BMI of 45.0-49.9, adult (CMS/HCC) SOB (shortness of breath) Shortness of breath Ocular migraine (CMS/HCC) Variants of migraine, not elsewhere classified, without mention of intractable migraine without mention of status migrainosus Mild recurrent major depression (HCC) (CMS/HCC)- Primary Major depressive disorder, recurrent episode, mild MARGARETH (generalized anxiety disorder) (CMS/HCC) Generalized anxiety disorder Migraine without aura and without status migrainosus, not intractable (CMS/HCC) Edema of both legs Edema GERD without esophagitis Esophageal reflux Chronic rhinosinusitis- Primary Unspecified sinusitis (chronic) Chronic rhinosinusitis Unspecified sinusitis (chronic) [facility]* Diagnosis Mild recurrent major depression (HCC) (CMS/HCC)- Primary Major depressive disorder, recurrent episode, mild MARGARETH (generalized anxiety disorder) (CMS/HCC) Generalized anxiety disorder Ocular migraine (CMS/HCC) Variants of migraine, not elsewhere classified, without mention of intractable migraine without mention of status migrainosus Edema of both legs Edema GERD without esophagitis Esophageal reflux Edema of both legs- Primary Edema Morbid obesity with BMI of 45.0-49.9, adult (CMS/HCC) SOB (shortness of breath) Shortness of breath Ocular migraine (CMS/HCC) Variants of migraine, not elsewhere classified, without mention of intractable migraine without mention of status migrainosus Mild recurrent major depression (HCC) (CMS/HCC)- Primary Major depressive disorder, recurrent episode, mild MARGARETH (generalized anxiety disorder) (CMS/HCC) Generalized anxiety disorder Migraine without aura and without status migrainosus, not intractable (CMS/HCC) Edema of both legs Edema GERD without esophagitis Esophageal reflux Chronic rhinosinusitis- Primary Unspecified sinusitis (chronic) Ocular migraine (CMS/HCC) Variants of migraine, not elsewhere classified, without mention of intractable migraine without mention of status migrainosus [facility]* Diagnosis Mild recurrent major depression (HCC) (CMS/HCC)- Primary Major depressive disorder, recurrent episode, mild MARGARETH (generalized anxiety disorder) (CMS/HCC) Generalized anxiety disorder Ocular migraine (CMS/HCC) Variants of migraine, not elsewhere classified, without mention of intractable migraine without mention of status migrainosus Edema of both legs Edema GERD without esophagitis Esophageal reflux Edema of both legs- Primary Edema Morbid obesity with BMI of 45.0-49.9, adult (CMS/HCC) SOB (shortness of breath) Shortness of breath Ocular migraine (CMS/HCC) Variants of migraine, not elsewhere classified, without mention of intractable migraine without mention of status migrainosus Mild recurrent major depression (HCC) (CMS/HCC)- Primary Major depressive disorder, recurrent episode, mild MARGARETH (generalized anxiety disorder) (CMS/HCC) Generalized anxiety disorder Migraine without aura and without status migrainosus, not intractable (CMS/HCC) Edema of both legs Edema GERD without esophagitis Esophageal reflux Chronic rhinosinusitis- Primary Unspecified sinusitis (chronic) Mild recurrent major depression (HCC) (CMS/HCC) Major depressive disorder, recurrent episode, mild Bilateral leg edema Edema MARGARETH (generalized anxiety disorder) (CMS/HCC) Generalized anxiety disorder Gastro-esophageal reflux disease without esophagitis [facility] Diagnosis Mild recurrent major depression (HCC) (CMS/HCC)- Primary Major depressive disorder, recurrent episode, mild MARGARETH (generalized anxiety disorder) (CMS/HCC) Generalized anxiety disorder Ocular migraine (CMS/HCC) Variants of migraine, not elsewhere classified, without mention of intractable migraine without mention of status migrainosus Edema of both legs Edema GERD without esophagitis Esophageal reflux Edema of both legs- Primary Edema Morbid obesity with BMI of 45.0-49.9, adult (CMS/HCC) SOB (shortness of breath) Shortness of breath Ocular migraine (CMS/HCC) Variants of migraine, not elsewhere classified, without mention of intractable migraine without mention of status migrainosus Mild recurrent major depression (HCC) (CMS/HCC)- Primary Major depressive disorder, recurrent episode, mild MARGARETH (generalized anxiety disorder) (CMS/HCC) Generalized anxiety disorder Migraine without aura and without status migrainosus, not intractable (CMS/HCC) Edema of both legs Edema GERD without esophagitis Esophageal reflux Chronic rhinosinusitis- Primary Unspecified sinusitis (chronic) Pelvic pain in female Unspecified symptom associated with female genital organs [facility] Diagnosis Mild recurrent major depression (HCC) (CMS/HCC)- Primary Major depressive disorder, recurrent episode, mild MARGARETH (generalized anxiety disorder) (CMS/HCC) Generalized anxiety disorder Ocular migraine (CMS/HCC) Variants of migraine, not elsewhere classified, without mention of intractable migraine without mention of status migrainosus Edema of both legs Edema GERD without esophagitis Esophageal reflux Edema of both legs- Primary Edema Morbid obesity with BMI of 45.0-49.9, adult (CMS/HCC) SOB (shortness of breath) Shortness of breath Ocular migraine (CMS/HCC) Variants of migraine, not elsewhere classified, without mention of intractable migraine without mention of status migrainosus Mild recurrent major depression (HCC) (CMS/HCC)- Primary Major depressive disorder, recurrent episode, mild MAGRARETH (generalized anxiety disorder) (CMS/HCC) Generalized anxiety disorder Migraine without aura and without status migrainosus, not intractable (CMS/HCC) Edema of both legs Edema GERD without esophagitis Esophageal reflux Chronic rhinosinusitis- Primary Unspecified sinusitis (chronic) Pre-op examination Pelvic pain in female Unspecified symptom associated with female genital organs H/O: hysterectomy Acquired absence of both cervix and uterus documented in this encounter [facility] - Reported* Type Description Date Medical History ANXIETY AND DEPRESSION Medical History GERD Medical History RIGHT FOOT PAIN Surgical History LEP PROCEDURE 2018 Surgical History LAPROSCOPY PROCEDURE 2018 Surgical History MULTIPLE SURGERIES 06/2019 Fon Other Hospital course Narrative No data available for this section [facility] No data available for this section [facility] General Surgery [place] Progress note No data available for this section [facility] Summary Purpose Family History No Family History [...] section and content) DATE CREATED AUTHOR 08/17/2018 [facility] DATE CREATED AUTHOR AUTHOR'S ORGANIZ ATION 01/16/2023 [facility] DATE CREATED AUTHOR AUTHOR'S ORGANIZ ATION 10/28/2023 [facility] DATE CREATED AUTHOR AUTHOR'S ORGANIZ ATION 11/29/2023 [facility] DATE CREATED AUTHOR AUTHOR'S ORGANIZ ATION 07/06/2024 [facility] DATE CREATED AUTHOR AUTHOR'S ORGANIZ ATION 07/07/2024 [facility] DATE CREATED AUTHOR AUTHOR'S ORGANIZ ATION 10/31/2024 [facility] DATE CREATED AUTHOR AUTHOR'S ORGANIZ ATION 11/04/2024 [facility] DATE CREATED AUTHOR AUTHOR'S ORGANIZ ATION 01/19/[address] [facility] EPIC REASON FOR VISIT (unrecogniz ed section and content) Reason Onset Date Comments Med Refill 10/22/2023 Reason Onset Date Comments Med Refill 07/28/2024 Reason Comments Follow-up Er f/up crandall william , sinus infection Reason Comments Toe Pain RT 4th digit toe ryan n Reason Comments Rhinosinusitis Specialty Diagnoses / Procedures Referred By Contac t Referred To Contact Otolaryngology Diagnoses Chronic rhinosinusitis Procedures [place] OFFICE/OUTPATIENT [facility] Tez Angel MD [address] [place] [address] Phone: tel: fax: Sarahy Burns MD [address] [address] Phone: tel: fax: Referral ID Status Reason Start Date Expiration Date V isits Requested Visits Authorized [id number] Closed Specialty Services Required 09/02/2024 03/01/2025 1 1 Reason Onset Date Comments Med Refill 11/02/2024 Reason Onset Date Comments Med Refill 12/27/2024 Reason Comments Pelvic Pain Reason Comments Pre-op Visit Patient Care team informatio n (unrecognized section and content) Team Status: Active Member Role Status Dates Tez Angel MD Primary Care Provider Active Team Status: Inactive Member Role Status Dates Tez Angel MD Primary Care Provider Active S tart: October 01, 2023 End: October 01, 2023 Chay Castro Attending Provider Active Start: Cm cameron 2023 End: October 01, 2023 Dry End Operator Relationship Specialty Start Date End Date Tez Angel MD PCP - General Family Medicine 02/26/23 Dry End Operator Relationship Specialty Start Date End Date Tez Angel MD [address] [place] [phone] PCP - General Family Medicine 01/27/24 Suzan Carrnigton, AIR INTERCEPT CONTROLLER [address] [facility] [address] [place], [place] [id number] PCP - [facility] 12/08/23 Dry End Operator Relationship Specialty Start Date End Date Tez Angel MD [address] [place] [phone] PCP - General Family Medicine 01/27/24 Suzan Carrington, AIR INTERCEPT CONTROLLER [address] [facility] [address] [place], [place] [id number] PCP - [facility] 12/08/23 Dry End Operator Relationship Specialty Start Date End Date Tez Angel MD [address] [place] [phone] PCP - General Family Medicine 01/27/24 Suzan Carrington, AIR INTERCEPT CONTROLLER [address] [facility] [address] [place] [address] PCP - [facility] [place] [facility] 12/08/23 Dry End Operator Relationship Specialty Start Date End Date Tez Angel MD [address] [place] [address] PCP - General Family Medicine 01/27/24 Suzan Carrington, AIR INTERCEPT CONTROLLER [address] [address] [place] [address] PCP - [facility] 12/08/23 Dry End Operator Relationship Specialty Start Date End Date Tez Angel MD [address] [place] [address] PCP - General Family Medicine 01/27/24 Suzan Carrington, AIR INTERCEPT CONTROLLER [address] [facility] [address] [place] [address] PCP - [facility] 12/08/23 Dry End Operator Relationship Specialty Start Date End Date Tez Angel MD [address] [place] [address] PCP - General Family Medicine 01/27/24 Suzan Carrington, AIR INTERCEPT CONTROLLER [address] [place] [address] PCP - [facility] 12/08/23 Dry End Operator Relationship Specialty Start Date End Date Tez Angel MD [address] [place] [address] PCP - General Family Medicine 01/27/24 Suzan Carrington, AIR INTERCEPT CONTROLLER [address] [facility] [address] [place] [address] PCP - [facility] [place] [facility] 12/08/23 Dry End Operator Relationship Specialty Start Date End Date Tez Angel MD [address] [place] [address] PCP - General Family Medicine 01/27/24 Suzan Carrington, AIR INTERCEPT CONTROLLER [address] [facility] [address] [place] [address] PCP - [facility] [place] [facility] 12/08/23 Dry End Operator Relationship Specialty Start Date End Date Tez Angel MD [address] [place] [address] PCP - General Family Medicine 01/27/24 Suzan Carrington, AIR INTERCEPT CONTROLLER [address] [facility] [address] [place] [address] PCP - [facility] [place] [facility] 12/08/23 Dry End Operator Relationship Specialty Start Date End Date Tez Angel MD [address] [place] [address] PCP - General Family Medicine 01/27/24 Suzan Carrington, AIR INTERCEPT CONTROLLER [address] [facility] [address] [place] [address] PCP - [facility] [place] [facility] 12/08/23 Dry End Operator Relationship Specialty Start Date End Date Tez Angel MD [address] [place] [address] PCP - General Family Medicine 01/27/24 Suzan Carrington NP [address] [place] [address] PCP - [facility] 12/08/23 Goals (unrecognized section and content) Goals may [...] BE BASED ON THE PRIMARY CLINICAL RECORDS. [employer] [facility]. provides no warranty or guarantee of the accuracy or completeness of information in this document.
--- NOTE | 2025-01-26 11:01 | ECG_ITS ---
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 Measurements Intervals [place] Rate: 74 P: 49 NH: 122 QRS: -1 QRSD: 96 T: 8 QT: 381 QTc: 425 Interpretive Statements SINUS RHYTHM WITH SINUS ARRHYTHMIA Normal ECG Compared to ECG 03/04/2023 11:51:08 No significant changes Electronically Signed On 01-26-2025 21:45:21 EDT by ASHLIE AMOS M.D.
--- NOTE | 2025-01-26 11:26 | XR_ITS ---
The [address] [address] Patient Name: NITHYA SARKAR MRN: [id number] date: 1990 Sex: F Assigned Patient Location: [facility] Current Patient Location: [facility] Accession/Order Number: [id number] Exam Date: 01/26/2025 11:49 Report Date: 01/26/2025 11:50 At the request of: LIS HAY DO Procedure: XR chest 2V PA AND LATERAL CHEST: CLINICAL HISTORY: Preoperative clearance COMPARISON: 03/04/2023 There is no focal parenchymal consolidation, effusion or pneumothorax. The cardiac, hilar and mediastinal silhouettes are within normal limits. There is no vascular congestion. The visualized bony thorax is intact. There is slight levoscoliotic curvature. XR/XR chest 2V IMPRESSION: NO ACUTE CARDIOPULMONARY ABNORMALITY. Impression dictated by: Annmarie Aquino M.D. 01/26/2025 11:50 AM Dictation Location: [place] [address] Electronically authenticated by: [id number] Y Date: 01/26/2025 11:50
[2025-01-26 12:02] LABS: Anion Gap 11.5; BUN Creatinine Ratio 16.8; Calcium 9.2 mg/dL (8.5-10.1); Carbon Dioxide 25.6 mmol/L (21.0-32.0); Chloride 108 mmol/L (98-107); Estimated GFR (African America >60 (>=60 mL/min/1.73m^2); Estimated GFR (Non-African Ame >60 (>=60 mL/min/1.73m^2); Glucose 102 mg/dL (74-106); Potassium 4.1 mmol/L (3.5-5.1); Sodium 141 mmol/L (136-145)
== END 2025-01-26 10:53 | disposition home or self-care (01) ==
LOC: PST 10:52
PROVIDERS: PCP Family Medicine; Visit Provider Obstetrics & Gynecology
DX: Z01.810 Encounter for preprocedural cardiovascular examination (principal); Z01.812 Encounter for preprocedural laboratory examination; R10.2 Pelvic and perineal pain; Z90.710 Acquired absence of both cervix and uterus
CPT/HCPCS: 71046; 80048; 93005

== ENCOUNTER 2025-02-11 09:31 | Day surgery (SDC) | payer MEDICAID, SELFPAY ==
[2025-01-26 11:34] VITALS: BP 105/80; PULSE 77; TEMP 36.2; O2SAT 100; BMI 46.2
[2025-02-11] VITALS (11 sets, daily range): BP systolic 109–142; BP diastolic 74–98; PULSE 73–108; TEMP 36.1–36.2; O2SAT 95–100; BMI 46.5
[2025-02-11 09:47] LABS: Basophils Percent Auto 0.4 % (0.2-2.0); Eosinophils Absolute Auto 0.1 10^3/uL (0.0-0.7); Eosinophils Percent Auto 0.9 % (0.9-7.0); Hematocrit 39.2 % (36.0-48.0); Hemoglobin 12.8 g/dL (12.0-16.0); Immature Granulocytes Abs Auto 0.02 10^3/uL (0.00-0.03); Immature Granulocytes Pct Auto 0.3 % (0.0-0.5); Lymphocytes Percent Auto 26.6 % (20.5-60.0); Mean Corpuscular HGB Conc 32.7 g/dL (29.9-35.2); Mean Corpuscular Hemoglobin 32.5 pg (26.7-34.0); Mean Corpuscular Volume 99.5 fL (81.0-99.0); Mean Platelet Volume 10.9 fL (9.5-13.5); Monocytes Absolute Auto 0.7 10^3/uL (0.3-0.8); Monocytes Percent Auto 8.8 % (1.7-12.0); Neutrophils Absolute Auto 4.7 10^3/uL (1.4-6.5); Platelet Count 182 10^3/uL (150-450); Red Blood Count 3.94 10^6/uL (4.20-5.40); Red Cell Distribution Width 11.9 % (11.0-15.0); White Blood Count 7.5 10^3/uL (4.0-11.0)
[2025-02-11] MEDS: LACTATED RINGER'S SOLUTION 1,000 ML 50 ML IV ×2 (10:36→13:29)
[2025-02-11] MEDS: FAMOTIDINE/PF 20 MG/2 ML VIAL IV (10:36)
[2025-02-11] MEDS: SCOPOLAMINE 1 MG/3 DAYS TRANSDERM PATCH 1 PATCH TD (10:36)
--- NOTE | 2025-02-11 12:44 | PM.ONB ---
Brief Operative Note Date of procedure: 02/11/25 Pre-op diagnosis general: pelvic pain Post-op diagnosis: same as pre-op Procedure: NAME OF PROCEDURE: [diagnostic laparoscopy with lysis of adhesions] PROCEDURE: The patient was taken back to the Operating Room where she was placed in dorsal lithotomy position after given general anesthesia. The patient was prepped and draped in normal sterile fashion. A sponge stick was placed into the patient's vagina. Attention was turned to the patient's abdomen, where a small umbilical incision was made. The fascia was tented using Aubrie clamps and the fascia was entered sharply. Confirmation of intraabdominal placement of the 10 mm port was confirmed under direct visualization using a laparoscope. The patient's abdomen was then insufflated using CO2 gas with approximately 4 liters. A second port was placed left laterally, this was done under direct visualization with a 5 mm port. Survey of the patient's abdomen demonstrated normal liver and gallbladder. Survey of the patient's pelvic anatomy demonstrated normal appearing rt and lt ovary, absent tubes and uterus, adhesion of bowel to vaginal cuff which was bluntly removed. No endometrial implants could be noted, no evidence of any pelvic disease was seen, normal appearing pelvic cavity. All instruments were removed from the patient's abdomen. The patient's abdomen was deinsufflated of CO2 gas. The patient tolerated the procedure well. Sponge stick was removed from the patient's vagina. The patient's infraumbilical fascia was closed using #0 Vicryl on a GI needle. The patient's skin was closed laterally and infraumbilically using 4-0 Vicryl. The patient tolerated the procedure well. Sponge, lap and needle counts were correct x 2. The patient was taken to Recovery Room in stable condition. Anesthesia: GETA Surgeon: Chay Castro Service Restorer Emergency: Chitra Kulkarni Estimated blood loss (mL): 5 Pathology: none sent Condition: stable Disposition: PACU Urinary Catheter Management Urinary Catheter Management Straight: Cath placed during this visit: no
== END 2025-02-11 14:20 | disposition home or self-care (01) ==
PROVIDERS: PCP Family Medicine; Visit Provider Obstetrics & Gynecology
PROC: (CPT 840; principal; 2025-02-11 10:50)
DX: R10.2 Pelvic and perineal pain (principal); K66.0 Peritoneal adhesions (postprocedural) (postinfection); Z98.51 Tubal ligation status; Z90.710 Acquired absence of both cervix and uterus; E66.01 Morbid (severe) obesity due to excess calories; Z68.42 Body mass index [BMI] 45.0-49.9, adult; Z90.49 Acquired absence of other specified parts of digestive tract; F17.290 Nicotine dependence, other tobacco product, uncomplicated; K21.9 Gastro-esophageal reflux disease without esophagitis; E03.9 Hypothyroidism, unspecified; R73.03 Prediabetes; E28.2 Polycystic ovarian syndrome; Z86.16 Personal history of COVID-19
CPT/HCPCS: 49329; 36415; 85025; J1100; J1885; J2250; J2405; J2704; J3010; J3490

== ENCOUNTER 2025-02-28 11:13 | Outpatient (OUT) | payer MEDICAID, SELFPAY ==
--- OUTSIDE RECORDS SUMMARY | 2025-02-24 13:30 | XMS_ITS | Encounter Summary ---
Author Organization [facility] Address [address] [place] [address] Care Team Providers Care Return Clerk Name Role Phone Tez Zaragoza MD Primary Care Provider [phone] Suzan Carrington EXPENSE CLERK Unavailable [phone] Reason for Visit * Reason Comments Post-op Visit Encounter Details Date Type Department Care Team (Late st Contact Info) Description 02/24/2025 1:30 PM EDT Office Visit [facility] [address] [place] [address] Zoya Peter PA [address] [place], [facility] Postoperative follow-up Social History Tobacco Use Types Packs/Day Years Used Date Smoking Tobacco: Some Days Cigarettes Smokeless Tobacco: Never Comments:I vape semi-regular ly now and will smoke a cigarette or cigar once or twice a month Alcohol Use Standard Drinks/Week Comments Not Currently 4 (1 standard drink = 0.6 oz pure alcohol) 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 Humiliation, Afraid, Rape, and Kick questionnair e Answer Date Recorded Within the last year, have y ou been afraid of your partner or ex-partner? No 08/21/2023 Within the last year, have y ou been humiliated or emotionally abused in other ways by your partner or ex-partner? No Within the last year, have y ou been kicked, hit, slapped, or otherwise physically hurt by your partner or ex-partner? No 08/21/2023 Within the last year, have y ou been raped or forced to have any kind of sexual activity by your partner or ex-partner? No 08/21/2023 Social Connection and Isolat ion Panel [NHANES] Answer Date Recorded In a typical week, how many times do you talk on the phone with family, friends, or neighbors? More than three times a week 08/21/2023 How often do you get togethe r with friends or relatives? Once a week 08/21/2023 How often do you attend chur or buddhism services? Never 08/21/2023 Do you belong to any clubs o r organizations such as samaritan groups, unions, fraternal or athletic groups, or school groups? No 08/21/2023 How often do you attend meet ings of the clubs or organizations you belong to? Never 08/21/2023 Are you , , di vorced, , never , or living with a partner? Never 08/21/2023 AUDIT-C Answer Date Recorded Q1: How often do you have a drink containing alcohol? Never 08/21/2023 Q2: How many drinks containi ng alcohol do you have on a typical day when you are drinking? Patient does not drink Q3: How often do you have si x or more drinks on one occasion? Never 08/21/2023 Overall Financial Resource Strain (CARDIA) Answe r Date Recorded How hard is it for you to pa y for the very basics like food, housing, medical care, and heating? Patient declined 08/21/2023 [facility] - Occupational Stress Questionnaire Answer Date Recorded Do you feel stress - tense, restless, nervous, or anxious, or unable to sleep at night because your mind is troubled all the time - these days? Only a little 08/21/2023 Exercise Vital Sign Answer Date Recorde d On average, how many days pe r week do you engage in moderate to strenuous exercise (like a brisk walk)? 0 days 08/21/2023 On average, how many minutes do you engage in exercise at this level? 0 min 08/21/2023 Hunger Vital Sign Answer Date Recorded Within the past 12 months, y ou worried that your food would run out before you got the money to buy more. Never true 08/21/20 Within the past 12 months, t he food you bought just didn't last and you didn't have money to get more. Never true 08/21/2023 PRAPARE - Transportation Answer Date Re corded In the past 12 months, has l ack of transportation kept you from medical appointments or from getting medications? No 08/08 In the past 12 months, has l ack of transportation kept you from meetings, work, or from getting things needed for daily living? No 08/21/2023 Housing Stability Vital Sign Answer Alejo e Recorded In the last 12 months, was t here a time when you were not able to pay the mortgage or rent on time? Patient refused 08/21/20 In the last 12 months, how many places have you lived? 2 08/21/2023 In the last 12 months, was t here a time when you did not have a steady place to sleep or slept in a jail (including now)? No 08/21/2023 Comments No Sex and Gender Information Value Date Recorded Sex Assigned at Female 02/25/2023 3:19 PM EDT Legal Sex Female 9:29 PM EDT Gender Identity Female 02/25/2023 3:19 PM EDT Sexual Orientation Pansexual 02/25/2023 3: 19 PM EDT documented as of this encounter Last Filed Vital Signs Vital Sign Reading Time Taken Comments Blood Pressure 110/80 02/24/2025 1:42 PM EDT Pulse - - Temperature - - Respiratory Rate - - Oxygen Saturation - - Inhaled Oxygen Concentration - - Weight 117 kg (257 lb 8 oz) 02/24/2025 1:42 PM E DT Height - - Body Mass Index 47.1 11/12/2024 11:24 AM EST documented in this encounter Progress Notes * SUZETTE Jennings - 02/24/2025 1:30 PM EDT Reason for Appointment: Patient ID: Azul Allen is a 34 y.o. female who presents for Post-op Visit Patient presents today for 1 Week Post Op Follow Up appointment. MEDICATIONS Current Outpatient Medications Medication Instructions buPROPion XL (WELLBUTRIN XL) 300 mg, Oral, Daily buPROPion XL (WELLBUTRIN XL) 150 mg, Oral, Daily cetirizine-pseudoephedrine (ZyrTEC-D) 5-120 MG [...] tablet 20 mEq, Oral, Daily PRN rizatriptan DESK MONITOR (MAXALT-DESK MONITOR) 10 mg, Oral, Once as needed, May [...] right ankle 03/21/2023 MARGARETH (generalized anxiety disorder) 03/21/2023 GERD without esophagitis 03/21/2023 Hypothyroidism 03/21/2023 Mild recurrent major depression 03/21/2023 Morbid obesity with BMI of 45.0-49.9, adult ([facility] [place]) 03/21/2023 Menorrhagia 03/21/2023 Motion sickness due to anesthesia 03/21/2023 Nerve entrapment syndrome of right foot 03/21/2023 Neuritis 03/21/2023 Migraine without aura and without status migrainosus, not intractable 03/21/2023 Back pain 03/21/2023 Polycystic ovarian syndrome 03/21/2023 Plantar fasciitis 03/21/2023 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) 04/15/2018 Raised TSH level 03/21/2023 Snoring 03/21/2023 TTS (tarsal tunnel syndrome), right 03/21/2023 Vertigo 03/21/2023 Vitamin D deficiency 03/21/2023 Genital warts 11/12/2023 HGSIL on Pap smear of cervix 11/12/2023 Prediabetes 02/17/2024 Chronic rhinosinusitis 07/28/2024 Pelvic pain in female 01/03/2025 Resolved Ambulatory Problems Diagnosis Date Noted Difficulty walking 03/21/2023 Recurrent major depression 11/12/2023 Past Medical History: Diagnosis Date Calculus of gallbladder without cholecystitis without obstruction Headache 2021 Migraine 2020 Plantar fasciitis of right foot Smoker HISTORY PAST MEDICAL HISTORY SOCIAL HISTORY Past Medical History: Diagnosis Date Calculus of gallbladder without cholecystitis without obstruction Dysmenorrhea Dyspareunia, female Edema of both legs Endometriosis MARGARETH (generalized anxiety disorder) Genital warts GERD without esophagitis Headache 2021 HGSIL on Pap smear of cervix Hypothyroidism Migraine 2020 Morbid obesity with BMI of 45.0-49.9, adult ([facility]) Plantar fasciitis of right foot Polycystic ovarian syndrome Prediabetes Recurrent major depression Smoker Vitamin D deficiency Social History Tobacco [...] Mother Nereida Marsh Alcohol abuse Father Tim Etzwideja Bipolar disorder Father Popeyeophnghia Etzwiler Depression Father Popeyeopher Etzwiler major Ulcers Father Popeyeopher Etzwiler peptic ulcer Other (blood clots) Father Christopher Etzwiler Diabetes Father Popeyeophnghia Etzwiler Hyperlipidemia Father Popeyeophnghia Etzwiler Hypertension Father Tim Etzwiler Heart disease Father Tim Etzwiler Other (Vit B12 deficiency anemia) Father Popeyeopher Etzwiler Arthritis Father Christopher Etzwiler Stroke Father Popeyeophnghia Etzwiler Hypertension Brother Depression Brother major Mental illness Brother Migraines Maternal Grandmother Mirta Romi headaches Depression Maternal Grandmother Mirta Romi major Hypertension Maternal Grandmother Mirta Romi Hyperlipidemia Maternal Grandmother Mirta Romi Cancer Maternal Grandmother Mirta Romi Arthritis Maternal Grandfather Artemio Romi Hyperlipidemia Maternal Grandfather Artemio Romi Hypertension Maternal Grandfather Artemio Romi Stroke Maternal Grandfather Artemio Romi Alzheimer's disease Maternal Grandfather Artemio Romi COPD Paternal Grandmother Cervical cancer Paternal Grandfather Lan Etzwideja Hypertension Paternal Grandfather Lan Etzwiler Hyperlipidemia Paternal Grandfather Lan Etzwiler Diabetes Paternal Grandfather Lan Etzwiler Ulcers Paternal Grandfather Lan Etzwideja peptic ulcer Other (Vit b12 deficiency anemia) Paternal Grandfather Lan Antoniozporsche Mental illness Paternal Grandfather Lan Allen SURGICAL HISTORY Past Surgical History: Procedure Laterality Date CHOLECYSTECTOMY ENDOMETRIAL ABLATION 03/12/2023 ENDOMETRIAL BIOPSY 03/12/2023 FOOT SURGERY Right 06/10/2019 LAPAROSCOPY DIAGNOSTIC / BIOPSY / ASPIRATION / LYSIS 10/31/2017 Diagnostic laparoscopy OTHER SURGICAL HISTORY 10/31/2017 LEAP PELVIC LAPAROSCOPY lap removal of tissue in uterus [place] COLONOSCOPY,BIOPSY 09/22/2017 Colposcopy with biopsy of cervix [...] Exam Constitutional: Appearance: Normal appearance. She is normal weight. HENT: Head: Normocephalic. Cardiovascular: Rate and Rhythm: Normal rate. Pulses: Normal pulses. Pulmonary: Effort: Pulmonary effort is normal. Breath sounds: Normal breath sounds. Abdominal: Palpations: Abdomen is soft. Comments: Mild ventral ecchymosis, incisions clean and dry Musculoskeletal: General: Normal range of motion. Neurological: General: No focal deficit present. Mental Status: She is alert and oriented to person, place, and time. Skin: General: Skin is warm. Comments: Abdominal incisions healing well Psychiatric: Mood and Affect: Mood normal. Behavior: Behavior normal. Thought Content: Thought content normal. Judgment: Judgment normal. Vitals and nursing note reviewed. Vitals: Estimated body mass index is 47.1 kg/m?? as calculated from the following: Height as of 11/12/24: 5' 2 . Weight as of this encounter: 257 lb 8 oz. BP: 110/80 Patient's last menstrual period was 09/08/2023 (approximate). ASSESSMENT & PLAN ICD-10-CM 1. Postoperative follow-up Z09 Post Op Follow Up: Patient presents today for a postop follow up after having a diagnostic laparotomy performed at [facility] with Dr. Castro. Patient is doing well and all restrictions have been lifted.she is scheduled to have repeat US in March. Follow Up: Patient is to return to the office for annual exam unless needed otherwise. Documented by SUZETTE Jennings on behalf of: SUZETTE Jennings documented in this encounter Plan of Treatment Upcoming Encounters Date Type Department Care Team (Late st Contact Info) Description 03/16/2025 8:30 AM EDT Ancillary Procedure [facility] [address] [place] [address] 03/29/2025 1:00 PM EDT Office Visit [facility] [address] [place] [address] Zoya Peter PA [address] [place] [address] [place] [address] 04/05/2025 9:45 AM EDT Office Visit [facility] [address] [place] [address] Tez Zaragoza MD [address] [place] [address] documented as of this encounter Goals Goal Patient Goal Type Associated Problems Recent Progress Patient-Stated? Author Help patient manage antidepressant medication Care Plan Patient on antidepressant monitoring plan No Florecita Figueroa Baseline PHQ-9 Care Plan Baseline PHQ-9 Florecita Barron documented as of this encounter Visit Diagnoses Diagnosis Postoperative follow-up Follow-up examination, following unspecified surgery documented in this encounter Additional Health Concerns Active Problems Noted Date Diagnosed Date Patient on antidepressant monitoring plan 2023 Baseline PHQ-9 10/22/2023 documented as of this encounter Care Teams Return Clerk Relationship Specialty Start Date End Date Tez Zaragoza MD [address] [place] [address] PCP - General Family Medicine 01/27/24 Suzan Carrington NP [address] [facility] [address] [place] [address] PCP - [facility] 12/08/23 documented as of this encounter
--- OUTSIDE RECORDS SUMMARY | 2025-02-25 09:15 | XMS_ITS | Encounter Summary ---
Author Organization [facility] Address [address] [place] [address] Care Team Providers Care Shoe Cementer Name Role Phone Tez Zaragoza MD Primary Care Provider [phone] Suzan Carrington ASBESTOS REMOVER Unavailable [phone] Reason for Referral * Medications - Closed Specialty Diagnoses / Procedures Referred By Contac t Referred To Contact Diagnoses Class 3 severe obesity due to excess calories with serious comorbidity and body mass index (BMI) of 45.0 to 49.9 in adult ([facility]) Prediabetes Tez Zaragoza MD [address] [place] [address] Phone: tel: fax: Referral ID Status Reason Start Date Expiration Date Visits Re quested Visits Authorized [id number] Closed 1 1 * Medications - Closed Specialty Diagnoses / Procedures Referred By Contac t Referred To Contact Diagnoses Migraine without aura and without status migrainosus, not intractable Tez Zaragoza MD [address] [place] [address] Phone: tel: fax: Referral ID Status Reason Start Date Expiration Date Visits Re quested Visits Authorized [id number] Closed 1 1 Reason for Visit * Reason Comments Headache Follow-up Weight loss Encounter Details Date Type Department Care Team (Late st Contact Info) Description 02/25/2025 9:15 AM EDT Office Visit [facility] [address] [place] [address] Tez Zaragoza MD [address] [place] [address] Migraine without aura and without status migrainosus, not intractable (Primary Dx); Hypothyroidism, unspecified type ; Class 3 severe obesity due to excess calories with serious comorbidity and body mass index (BMI) of 45.0 to 49.9 in adult ([facility]); Annual physical exam; Prediabetes Social History Tobacco Use Types Packs/Day Years [...] week 08/21/2023 How often do you attend [facility] or [facility] services? Never 08/21/2023 Do you belong to any clubs o r organizations such as jehovah's witness groups, unions, fraternal or athletic groups, or [...] medical care, and heating? Patient declined 08/21/2023 [facility] - Occupational Stress Questionnaire Answer Date Recorded [...] money to buy more. Never true 08/21/20 23 Within the past 12 months, t he [...] or rent on time? Patient refused 08/21/20 23 In the last 12 months, how many places have you lived? 2 08/21/2023 In the last 12 months, was t here a time when you did not have a steady place to sleep or slept in a custodial (including now)? No 08/21/2023 Comments No Sex and Gender Information Value Date Recorded Sex Assigned at Female 02/25/2023 3:19 PM EDT Legal Sex Female 9:29 PM EDT Gender Identity Female 02/25/2023 3:19 PM EDT Sexual Orientation Pansexual 02/25/2023 3: 19 PM EDT documented as of this encounter Last Filed Vital Signs Vital Sign Reading Time Taken Comments Blood Pressure 128/76 02/25/2025 9:18 AM EDT Pulse 107 02/25/2025 9:18 AM EDT Temperature 36.4 C (97.5 F) 02/25/2025 9:18 AM EDT Respiratory Rate 20 02/25/2025 9:18 AM EDT Oxygen Saturation 97% 02/25/2025 9:18 AM EDT Inhaled Oxygen Concentration - - Weight 117 kg (257 lb) 02/25/2025 9:18 AM EDT Height 157.5 cm (5' 2 ) 02/25/2025 9:18 AM EDT Body Mass Index 47.01 02/25/2025 9:18 AM EDT documented in this encounter Progress Notes * Tez Zaragoza MD - 02/25/2025 9:55 AM EDTAssociated Problem(s): Hypothyroidism Repeat labs. * Tez Zaragoza MD - 02/25/2025 9:55 AM EDTAssociated Problem(s): Class 3 severe obesity due to excess calories with serious comorbidity and body mass index (BMI) of 45.0 to 49.9 in adult ([facility]) Problems losing weight and try tirzepatide. Discussed proper diet and regular aerobic exercise. Recommend Weight Watchers and need to limit calories and smaller portions. Need to increase activity and regular aerobic exercise several days a week for 30 minutes at a time. * Tez Zaragoza MD - 02/25/2025 9:55 AM EDTAssociated Problem(s): Migraine without aura and without status migrainosus, not intractable Migraines significantly worse and add qulipta. Stop maxalt and try fioricet or amerge. * Tez Zaragoza MD - 02/25/2025 9:15 AM EDT Images from the original note were not included. Subjective Patient ID: Azul Allen is a 34 y.o. female who presents for Headache and Follow-up (Weight loss). Follow up migraines and weight. Patient not doing well today. Migraines worse and daily CADET. Severe migraine about every other week and lasts several days. Using maxalt and not helping. Throbbing painin entire head associated with photophobia, phonophobia and nausea. On topamax daily. Weight down 7pounds in past year but not able to lose more. Active and exercises 3-4 days a week. Tries to watchdiet and eat healthy. Increased fruits and vegetables. Smaller portions and limits snacking. Tries to limit total daily calories. Interested in weight loss medication. Prior adipex and last time madedepression worse. Review of Systems Respiratory: Negative for cough, shortness of breath and wheezing. Cardiovascular: Negative for chest pain and palpitations. Gastrointestinal: Negative for abdominal pain, diarrhea, nausea and vomiting. Genitourinary: Negative for dysuria. Objective Physical Exam Constitutional: General: She is not in acute distress. Appearance: Normal appearance. HENT: Head: Normocephalic. Right Ear: Tympanic membrane normal. Left Ear: Tympanic membrane normal. Eyes: Extraocular Movements: Extraocular movements intact. Pupils: [...] Assessment/Plan Problem List Items Addressed This Visit Hypothyroidism Repeat labs. Class 3 severe obesity due to excess calories with serious comorbidity and body mass index (BMI) of45.0 to 49.9 in adult ([facility]) Problems losing weight and try tirzepatide. Discussed proper diet and regular aerobic exercise. Recommend Weight Watchers and need to limit calories and smaller portions. Need to increase activity and regular aerobic exercise several days a week for 30 minutes at a time. Relevant Medications Tirzepatide 2.5 MG/0.5ML solution auto-injector Migraine without aura and without status migrainosus, not intractable - Primary Migraines significantly worse and add qulipta. Stop maxalt and try fioricet or amerge. Relevant Medications Atogepant (Qulipta) 60 MG tablet naratriptan (Amerge) 1 MG tablet wjgjzlygtt-dmxuazkmrcamy-bnheqcis 50-325-40 MG tablet Prediabetes Relevant Medications Tirzepatide 2.5 MG/0.5ML solution auto-injector Other Visit Diagnoses Annual physical exam Relevant Orders Hemoglobin A1c Basic metabolic panel CBC and differential Hepatic function panel Lipid panel TSH T4, free documented in this encounter Plan of Treatment Upcoming Encounters Date Type Department Care Team (Late st Contact Info) Description 03/16/2025 8:30 AM EDT Ancillary Procedure [facility] [address] [place] [phone] 03/29/2025 1:00 PM EDT Office Visit [facility] [address] [facility] [address] Zoya Peter PA [address] [place], [place] [id number] 04/05/2025 9:45 AM EDT Office Visit [facility] [address] [place] [phone] Tez Zaragoza MD [address] [place] [address] Scheduled Orders Name Type Priority Associated Diagnoses Orde r Schedule Hemoglobin A1c Lab Routine Annual physical exam Expected: 02/25/2025 (Approximate), Expires: 02/25/2026 Basic metabolic panel Lab Routine Annual physical exam Expected: 02/25/2025 (Approximate), Expires: 02/25/2026 CBC and differential Lab Routine Annual physical exam Expected: 02/25/2025 (Approximate), Expires: 02/25/2026 Hepatic function panel Lab Routine Annual physical exam Expected: 02/25/2025 (Approximate), Expires: 02/25/2026 Lipid panel Lab Routine Annual physical exam Expected: 02/25/2025 (Approximate), Expires: 02/25/2026 TSH Lab Routine Annual physical exam Expected: 02/25/2025 (Approximate), Expires: 02/25/2026 T4, free Lab Routine Annual physical exam Expected: 02/25/2025 (Approximate), Expires: 02/25/2026 documented as of this encounter Goals Goal Patient Goal Type Associated Problems Recent Progress Patient-Stated? Author Help patient manage antidepressant medication Care Plan Patient on antidepressant monitoring plan No Florecita Figueroa Baseline PHQ-9 Care Plan Baseline PHQ-9 Florecita Barron documented as of this encounter Visit Diagnoses Diagnosis Migraine without aura and without status migrainosus, not intractable- Primary Hypothyroidism, unspecified type Class 3 severe obesity due to excess calories with serious comorbidity and body mass index (BMI) of 45.0 to 49.9 in adult ([facility]) Annual physical exam Routine general medical examination at a health care facility Prediabetes Other abnormal glucose documented in this encounter Additional Health Concerns Active Problems Noted Date Diagnosed Date Patient on antidepressant monitoring plan 2023 Baseline PHQ-9 10/22/2023 documented as of this encounter Care Teams Shoe Cementer Relationship Specialty Start Date End Date Tez Zaragoza MD [address] [place] [address] PCP - General Family Medicine 01/27/24 Suzan Carrington, ASBESTOS REMOVER [address] [facility] [address] [place] [address] PCP - [facility] RUBBER TUBING BACKER 12/08/23 documented as of this encounter
--- OUTSIDE RECORDS SUMMARY | 2025-02-28 11:17 | XMS_ITS | Encounter Summary ---
Author Organization [facility] Address [address] [place] [address] Care Team Providers Care Child Welfare Specialist Name Role Phone Tez Zaragoza MD Primary Care Provider [phone] Tez Zaragoza MD Primary Care Provider [phone] Tez Zaragoza MD Primary Care Provider [phone] Suzan Carrington DICE TABLE PERSON Unavailable Encounter Details Date Type Department Care Team (Late st Contact Info) Description 10/15/2023 Orders Only [facility] [address] [place] [address] Tez Zaragoza MD [address] [place] [address] Social History Tobacco Use Types Packs/Day Years Used Date Smoking Tobacco: Some Days Cigarettes Comments:Patient smokes 6-10 cigarettes/day after 31- 60 minutes of waking up. Alcohol Use Standard Drinks/Week Comments Yes 4 (1 standard drink = 0.6 oz pur e alcohol) Caffeine: 2-3 cups/day Humiliation, Afraid, Rape, and Kick questionnair e [...] How often do you attend chur or yazidism services? Never 08/21/2023 Do you belong to any clubs o r organizations such as yarsani groups, unions, fraternal or athletic groups, or [...] medical care, and heating? Patient declined 08/21/2023 [facility] - Occupational Stress Questionnaire Answer Date [...] place to sleep or slept in a correction (including now)? No 08/21/2023 Comments No Sex and Gender Information Value Date Recorded Sex Assigned at Female 02/25/2023 3:19 PM EDT Legal Sex Female 9:29 PM EDT Gender Identity Female 02/25/2023 3:19 PM EDT Sexual Orientation Pansexual 02/25/2023 3: 19 PM EDT documented as of this encounter Plan of Treatment Upcoming Encounters Date Type Department Care Team (Late st Contact Info) Description 03/16/2025 8:30 AM EDT Ancillary Procedure [facility] [address] [facility] [place] [address] 03/29/2025 1:00 PM EDT Office Visit [facility] [address] [facility] [place] [address] Zoya Peter PA [address] [facility] [place] [address] 04/05/2025 9:45 AM EDT Office Visit [facility] [address] [place] [address] Tez Zaragoza MD [address] [place] [address] documented as of this encounter Procedures Procedure Name Priority Date/Time Associated Diagnosis Comments XR LUMBAR SPINE 6+ VIEWS INCLUDING OBLIQUE FLEXION EXTENSION Routine 06/26/2023 11:47 AM EDT documented in this encounter Results * XR lumbar spine 6+ views including oblique flexion extension (06/26/2023 11:47 AM EDT) Anatomical Region Laterality Modality Spine, L-spine Radiographic Adriana ging Tez Zaragoza MD IMG XR PROCEDURES Final Result documented in this encounter Visit Diagnoses Not on filedocumented in this encounter Care Teams Child Welfare Specialist Relationship Specialty Start Date End Date Tez Zaragoza MD PCP - General Family Medicine 02/26/23 11/11/23 Tez Zaragoza MD PCP - General Family Medicine 11/12/23 01/26/24 Tez Zaragoza MD [address] [place] [address] PCP - General Family Medicine 01/27/24 Suzan Carrington NP [address] [facility] [address] [place] [address] PCP - [facility] MASTER DATA ANALYST 12/08/23 documented as of this encounter
--- OUTSIDE RECORDS SUMMARY | 2025-02-28 11:17 | XMS_ITS | Encounter Summary ---
Author Organization [facility] Address [address] [place] [address] Care Team Providers Care Compensation And Benefits Administrator Name Role Phone Tez Zaragoza MD Primary Care Provider [phone] Tez Zaragoza MD Primary Care Provider [phone] Tez Zaragoza MD Primary Care Provider [phone] Suzan Carrington NURSE SUBSTANCE ABUSE Unavailable Encounter Details Date Type Department Care Team (Late st Contact Info) Description 11/05/2023 Orders Only [facility] [address] [place] [address] Tez Zaragoza MD [address] [place] [address] Social History Tobacco Use Types Packs/Day Years [...] How often do you attend chur or jainism services? Never 08/21/2023 Do you belong to any clubs o r organizations such as druze groups, unions, fraternal or athletic groups, or [...] medical care, and heating? Patient declined 08/21/2023 [facility]at ion[facility] Health - Occupational Stress Questionnaire Answer Date [...] 03/16/2025 8:30 AM EDT Ancillary Procedure [facility] [address] [facility] [place] [address] 03/29/2025 1:00 PM EDT Office Visit [facility] [address] [facility] [place] [address] Zoya Peter PA [address] [facility] [place] [address] 04/05/2025 9:45 AM EDT Office Visit [facility] [address] [place] [address] Tez Zaragoza MD [address] [place] [address] documented as of this encounter Goals Goal Patient Goal Type Associated Problems Recent Progress Patient-Stated? Author Help patient manage antidepressant medication Care Plan Patient on antidepressant monitoring plan No Florecita Figueroa Baseline PHQ-9 Care Plan Baseline PHQ-9 No Florecita Figueroa documented as of this encounter Procedures Procedure Name Priority Date/Time Associated Diagnosis Comments MISCELLANEOUS LAB TEST Routine 10/25/2023 11:52 AM EST documented in this encounter Results * - Miscellaneous Test (10/25/2023 11:52 AM EST) Tez Zaragoza MD LAB BLOOD ORDERABLES Final Resul t documented in this encounter Visit Diagnoses Not on filedocumented in this encounter Additional Health Concerns Active Problems Noted Date Diagnosed Date Patient on antidepressant monitoring plan 2023 Baseline PHQ-9 10/22/2023 documented as of this encounter Care Teams Compensation And Benefits Administrator Relationship Specialty Start Date End Date Tez Zaragoza MD PCP - General Family Medicine 02/26/23 11/11/23 Tez Zaragoza MD PCP - General Family Medicine 11/12/23 01/26/24 Tez Zaragoza MD [address] [place] [address] PCP - General Family Medicine 01/27/24 Suzan Carrington NP [address] [place] [address] PCP - [facility] SCREENING NURSE 12/08/23 documented as of this encounter
--- OUTSIDE RECORDS SUMMARY | 2025-02-28 11:17 | XMS_ITS | Encounter Summary ---
Author Organization [facility] Address [address] [facility] [place] [address] Care Team Providers Care Archivist Economic History Name Role Phone Tez Zaragoza MD Primary Care Provider [phone] Tez Zaragoza MD Primary Care Provider [phone] Tez Zaragoza MD Primary Care Provider [phone] Suzan Carrington SHEEP SHEARER Unavailable [phone] Encounter Details Date Type Department Care Team (Late st Contact Info) Description 03/24/2023 Abstract [facility] [address] [place] [address] Zoya Peter PA [address] [facility] [address] [place], [place] [id number] Social History Tobacco Use Types Packs/Day Years Used Date Smoking Tobacco: Every Day Cigarettes Comments:Patient smokes 6-10 cigarettes/day after 31- 60 minutes of waking up. Alcohol Use Standard Drinks/Week Comments Yes 4 (1 standard drink = 0.6 oz pur e alcohol) Caffeine: 2-3 cups/day Comments Unknown Sex and Gender Information Value Date Recorded Sex Assigned at Female 02/25/2023 3:19 PM EDT Legal Sex Female 9:29 PM EDT Gender Identity Female 02/25/2023 3:19 PM EDT Sexual Orientation Pansexual 02/25/2023 3: 19 PM EDT COVID-19 Exposure Response Date Recorded In the last 10 days, have trent u been in contact with someone who was confirmed or suspected to have Coronavirus/COVID-19? No / Unsure 03/21/2023 10:52 PM EDT documented as of this encounter Plan of Treatment Upcoming Encounters Date Type Department Care Team (Late st Contact Info) Description 03/16/2025 8:30 AM EDT Ancillary Procedure [facility] [address] [facility] [place] [address] 03/29/2025 1:00 PM EDT Office Visit [facility] [address] [facility] [place] [address] Zoya Peter PA [address] [place] [address] 04/05/2025 9:45 AM EDT Office Visit [facility] [address] [place] [address] Tez Zaragoza MD [address] [place] [address] documented as of this encounter Visit Diagnoses Not on filedocumented in this encounter Care Teams Archivist Economic History Relationship Specialty Start Date End Date Tez Zaragoza MD PCP - General Family Medicine 02/26/23 11/11/23 Tez Zaragoza MD PCP - General Family Medicine 11/12/23 01/26/24 Tez Zaragoza MD [address] [place] [address] PCP - General Family Medicine 01/27/24 Suzan Carrington NP [address] [facility] [address] [place], [place] [phone] PCP - [facility] SWING TYPE LATHE OPERATOR 12/08/23 documented as of this encounter
--- OUTSIDE RECORDS SUMMARY | 2025-02-28 11:17 | XMS_ITS | Encounter Summary ---
Author Organization [facility] Address [address] [place] [address] Care Team Providers Care Tower Technician Name Role Phone Tez Angel MD Primary Care Provider [phone] Suzan Carrington PUBLIC HOUSING INTERVIEWER Unavailable [phone] Encounter Details Date Type Department Care Team (Late st Contact Info) Description 03/01/2024 Clinisync Result Encounter [facility] External Department Unsolicited Tez Angel MD [address] [place] [phone] Social History Tobacco Use Types Packs/Day Years [...] How often do you attend chur or baptist services? Never 08/21/2023 Do you belong to any clubs o r organizations such as hinduism groups, unions, fraternal or athletic groups, or [...] medical care, and heating? Patient declined [facility] Answer Date [...] place to sleep or slept in a longterm (including now)? No 08/21/2023 Comments No Sex [...] 03/16/2025 8:30 AM EDT Ancillary Procedure [facility] [address] [facility] [address] 03/29/2025 1:00 PM EDT Office Visit [facility] [address] [facility] [place] [address] Zoya Peter PA [address] [place] [address] 04/05/2025 9:45 AM EDT [facility] Visit [facility] [address] [place] [phone] Tez Anegl MD [address] [place] [address] documented as of this encounter Goals Goal Patient Goal Type Associated Problems Recent Progress Patient-Stated? Author Help patient manage antidepressant medication Care Plan Patient on antidepressant monitoring plan No HenryFlorecita hyatt Baseline PHQ-9 Care Plan Baseline PHQ-9 No HenryFlorecita hyatt documented as of this encounter Procedures Procedure Name Priority Date/Time Associated Diagnosis Comments CA ECHO DOPPLER COMPLETE 03/01/2024 7:32 PM EDT documented in this encounter Results * CA ECHO DOPPLER COMPLETE (03/01/2024 7:32 PM EDT) Anatomical Region Laterality Modality Other 03/01/2024 7:32 PM EDT Narrative 03/01/2024 7:33 [place] [address] Cardiology Report Signed Patient: AZUL SARKAR MR#: [id number] : 1990 Acct:[id number] Age/Sex: 33 / F ADM Date: 03/01/24 Loc: CARD Attending Dr: Tez Angel M.D. Ordering Physician: Tez Angel M.D. Date of Service: 03/01/24 Procedure(s): CA echo doppler complete Accession Number(s): [id number] cc: Tez nAgel M.D. Patient Name: AZUL SARKAR MR#: [id number] : 1990 Exam Date: 03/01/2024 Ordering Doctor: DR TEZ ANGEL . ECHOCARDIOGRAM REPORT PROCEDURE: CA ECHO DOPPLER COMPLETE INDICATIONS: BLE Edema, Shortness of breath COMPARISON: None. DESCRIPTION: COMPLETE ECHOCARDIOGRAM Real-time transthoracic echocardiography with 2D, M-mode, spectral and color flow Doppler performed. QUALITY: Technical quality was good. LEFT VENTRICLE: Normal chamber size. Normal left ventricular wall thickness. Global left ventricular systolic function is normal. LV EF: Estimated left ventricular ejection fraction is 55%. DIASTOLIC: Normal diastolic function. ATRIAL SEPTUM: LEFT ATRIUM: Normal chamber size. RIGHT ATRIUM: Normal chamber size. RIGHT VENTRICLE: Normal chamber size. Normal right ventricular systolic function. TRICUSPID VALVE: Normal mobility and thickness. No stenosis with trivial regurgitation. No evidence of pulmonary hypertension. RVSP 28 mmHg MITRAL VALVE: Normal mobility and thickness. No evidence of mitral valve stenosis. There is no mitral annular calcification. Trivial mitral regurgitation. AORTIC VALVE: Normal trileaflet appearance. No visible sclerosis. Normal leaflet mobility. No evidence of aortic valve stenosis. No aortic regurgitation. AORTIC ROOT: Normal diameter and appearance. PULMONIC VALVE: Normal thickness and mobility. No stenosis. Trivial regurgitation. PERICARDIUM: No evidence of pericardial effusion. IVC: Collapses with inspirations. Normal size. PLEURA: CONCLUSION: 1. Normal left ventricular size and systolic function. LVEF is 55%. 2. Normal right ventricular size and systolic function. 3. No significant valvular dysfunction. 4. Normal diastolic function. 5. Normal right-sided pressures. Adult Echocardiography Procedure Report Left Ventricle LVEDD (3.7 - 5.6 cm): 5.25 cm LVESD (2.2 - 4.0 cm): 3.35 cm LVIVS thickness (0.6 - 1.2 cm): 0.92 cm LVPW thickness (0.5 - 1.0 cm): 0.90 cm e': 0.12 m/s E - e': 5.93 LVOT Max Gradient: 2.66 mm[Hg] LVOT Area (cm2): 0.82 m/s Peak Velocity (LVOT): 0.82 m/s Mean Velocity (LVOT): 0.64 m/s LVOT Diameter 2.07 cm Left Ventricular Ejection Fraction: 55 % Left Atrium LA Volume Index (2D A2C): 22.67 ml/m2 Left Atrium Systolic Dimension: 3.55 cm Mitral Valve MV E to A Ratio: 0.94 Mitral Valve A-Wave Peak Velocity: 0.78 m/s Mitral Valve E-Wave Peak Velocity: 0.73 m/s Right Ventricle RV Internal Diastolic Dimension: 3.71 cm Aorta AO Root Diam: 2.71 cm Ascending Ao Diam: 2.68 cm Aortic Valve AoV Area (Peak Tigre): 2.22 cm2, 2.15 cm2 AoV Area (VTI): 2.04 cm2, 1.89 cm2 Peak Velocity(Antegrade Flow): 1.28 m/s, 1.20 m/s Peak Gradient(Antegrade Flow): 6.56 mm[Hg], 5.78 mm[Hg] Mean Velocity(Antegrade Flow): 0.85 m/s, 0.83 m/s Mean Gradient(Antegrade Flow): 3.31 mm[Hg], 3.15 mm[Hg] Velocity Time Integral: 29.82 cm, 25.49 cm Tricuspid Valve Peak Velocity (Regurgitant Flow): 2.49 m/s, 2.19 m/s, 2.41 m/s Pulmonic Valve Mean Gradient: 2.14 mm[Hg], 2.04 mm[Hg] Mean Velocity: 0.69 m/s, 0.67 m/s Peak Velocity: 0.94 m/s Peak Gradient: 3.50 mm[Hg], 3.50 mm[Hg] Right Atrium Right Atrium Systolic Pressure: 33.25 ml, 33.25 ml Dictated by: Ashlie Mcmahan M.D. on 03/01/2024 at 19:29 Approved by: Ashlie Mcmahan M.D. on 03/01/2024 at 19:32 Dictated By: ASHLIE MCMAHAN Signed By: 03/01/241932 DD/ 31 TD/TT: Postal Superintendent: Procedure Note Radiology, Radiologist, MD - 03/01/2024 [place] [address] Cardiology Report Signed Patient: AZUL SARKAR MMR#: [id number] : 1990Acct:[id number] Age/Sex: 33 / FADM Date: 03/01/24 Loc: CARD Attending Dr: Tez Angel M.D. Ordering Physician: Tez Angel M.D. Date of Service: 03/01/24 Procedure(s): CA echo doppler complete Accession Number(s): [id number] cc: Tez Angel M.D. Patient Name: AZUL SARKAR MR#: [id number] : 1990 Exam Date: 03/01/2024 Ordering Doctor: DR TEZ ANGEL . ECHOCARDIOGRAM REPORT PROCEDURE: CA ECHO DOPPLER COMPLETE INDICATIONS: BLE Edema, Shortness of breath COMPARISON: None. DESCRIPTION: COMPLETE ECHOCARDIOGRAM Real-time transthoracic echocardiography with 2D, M-mode, spectral and color flow Dopplerperformed. QUALITY: Technical quality was good. LEFT VENTRICLE: Normal chamber size. Normal left ventricular wall thickness. Global left ventricular systolic function is normal. LV EF: Estimated left ventricular ejection fraction is 55%. DIASTOLIC: Normal diastolic function. ATRIAL SEPTUM: LEFT ATRIUM: Normal chamber size. RIGHT ATRIUM: Normal chamber size. RIGHT VENTRICLE: Normal chamber size. Normal right ventricularsystolic function. TRICUSPID VALVE: Normal mobility and thickness. No stenosis withtrivial regurgitation. No evidence of pulmonary hypertension. RVSP 28 mmHg MITRAL VALVE: Normal mobility and thickness. No evidence of mitralvalve stenosis. There is no mitral annular calcification. Trivial mitral regurgitation. AORTIC VALVE: Normal trileaflet appearance. No visible sclerosis.Normal leaflet mobility. No evidence of aortic valve stenosis. No aortic regurgitation. AORTIC ROOT: Normal diameter and appearance. PULMONIC VALVE: Normal thickness and mobility. No stenosis. Trivial regurgitation. PERICARDIUM: No evidence of pericardial effusion. IVC: Collapses with inspirations. Normal size. PLEURA: CONCLUSION: 1. Normal left ventricular size and systolic function. LVEF is 55%. 2. Normal right ventricular size and systolic function. 3. No significant valvular dysfunction. 4. Normal diastolic function. 5. Normal right-sided pressures. Adult Echocardiography Procedure Report Left Ventricle LVEDD (3.7 - 5.6 cm): 5.25 cm LVESD (2.2 - 4.0 cm): 3.35 cm LVIVS thickness (0.6 - 1.2 cm): 0.92 cm LVPW thickness (0.5 - 1.0 cm): 0.90 cm e': 0.12 m/s E - e': 5.93 LVOT Max Gradient: 2.66 mm[Hg] LVOT Area (cm2): 0.82 m/s Peak Velocity (LVOT): 0.82 m/s Mean Velocity (LVOT): 0.64 m/s LVOT Diameter 2.07 cm Left Ventricular Ejection Fraction: 55 % Left Atrium LA Volume Index (2D A2C): 22.67 ml/m2 Left Atrium Systolic Dimension: 3.55 cm Mitral Valve MV E to A Ratio: 0.94 Mitral Valve A-Wave Peak Velocity: 0.78 m/s Mitral Valve E-Wave Peak Velocity: 0.73 m/s Right Ventricle RV Internal Diastolic Dimension: 3.71 cm Aorta AO Root Diam: 2.71 cm Ascending Ao Diam: 2.68 cm Aortic Valve AoV Area (Peak Tigre): 2.22 cm2, 2.15 cm2 AoV Area (VTI): 2.04 cm2, 1.89 cm2 Peak Velocity(Antegrade Flow): 1.28 m/s, 1.20 m/s Peak Gradient(Antegrade Flow): 6.56 mm[Hg], 5.78 mm[Hg] Mean Velocity(Antegrade Flow): 0.85 m/s, 0.83 m/s Mean Gradient(Antegrade Flow): 3.31 mm[Hg], 3.15 mm[Hg] Velocity Time Integral: 29.82 cm, 25.49 cm Tricuspid Valve Peak Velocity (Regurgitant Flow): 2.49 m/s, 2.19 m/s, 2.41 m/s Pulmonic Valve Mean Gradient: 2.14 mm[Hg], 2.04 mm[Hg] Mean Velocity: 0.69 m/s, 0.67 m/s Peak Velocity: 0.94 m/s Peak Gradient: 3.50 mm[Hg], 3.50 mm[Hg] Right Atrium Right Atrium Systolic Pressure: 33.25 ml, 33.25 ml Dictated by: Ashlie Mcmahan M.D. on 03/01/2024 at 19:29 Approved by: Ashlie Mcmahan M.D. on 03/01/2024 at 19:32 Dictated By: ASHLIE MCMAHAN Signed By:03/01/241932 DD/ 31 TD/TT: Postal Superintendent: Tez Angel MD [facility] Final Result documented in this encounter Visit Diagnoses Not on filedocumented in this encounter Additional Health Concerns Active Problems Noted Date Diagnosed Date Patient on antidepressant monitoring plan 2023 Baseline PHQ-9 10/22/2023 documented as of this encounter Care Teams Tower Technician Relationship Specialty Start Date End Date Tez Angel MD [address] [place] [address] PCP - General Family Medicine 01/27/24 Suzan Carrington, PUBLIC HOUSING INTERVIEWER [address] [facility] [address] [place] [address] PCP - [facility] PRODUCT MARKETING ENGINEER 12/08/23 documented as of this encounter
--- OUTSIDE RECORDS SUMMARY | 2025-02-28 11:17 | XMS_ITS | Encounter Summary ---
Author Organization [facility] Address [address] [place] [address] Care Team Providers Care Teaching Fellow Name Role Phone Tez Zaragoza MD Primary Care Provider Tez Zaragoza MD Primary Care Provider Tez Zaragoza MD Primary Care Provider Suzan Carrington RISK ASSESSMENT ANALYST Unavailable Encounter Details Date Type Department Care Team (Late st Contact Info) Description 03/21/2023 Abstract [facility] [address] [place] [address] Chay Castro, DO [address] [place], [place] [id number] Social History Tobacco Use Types Packs/Day Years [...] EDT Ancillary Procedure [facility] [address] [facility] [address] 03/29/2025 1:00 PM EDT Office Visit [facility] [address] [facility] [place] [address] Zoya Peter PA [address] [facility] [place] [address] 04/05/2025 9:45 AM EDT Office Visit [facility] [address] [place] [address] Tez Zaragoza MD [address] [place] [address] documented as of this encounter Visit Diagnoses Not on filedocumented in this encounter Care Teams Teaching Fellow Relationship Specialty Start Date End Date Tez Zaragoza MD PCP - General Family Medicine 02/26/23 11/11/23 Tez Zaragoza MD PCP - General Family Medicine 11/12/23 01/26/24 Tez Zaragoza MD [address] [place] [address] PCP - General Family Medicine 01/27/24 Suzan Carrington NP [address] [place] [address] [address] [place], [place] [address] PCP - [facility] HAND DRILLER 12/08/23 documented as of this encounter
--- OUTSIDE RECORDS SUMMARY | 2025-02-28 11:17 | XMS_ITS | Encounter Summary ---
Author Organization [facility] Address [address] [place] [address] Care Team Providers Care Whipped Topping Mixer Name Role Phone Tez Zaragoza MD Primary Care Provider [phone] Suzan Carrington SOCKET WELDER HELPER Unavailable [phone] Encounter Details Date Type Department Care Team (Late st Contact Info) Description 02/24/2025 BamMandaeo flowsheet [facility] [address] [facility] [address] Zoya Peter PA [address] [facility] [address] [place], [facility] Social History Tobacco Use Types Packs/Day Years [...] How often do you attend chur or worship services? Never 08/21/2023 Do you belong to any clubs o r organizations such as latter day groups, unions, fraternal or athletic groups, or [...] medical care, and heating? Patient declined 08/21/2023 [facility] - Occupational Stress [...] EDT Ancillary Procedure [facility] [address] [facility] [place] [address] 03/29/2025 1:00 PM EDT Office Visit [facility] [address] [facility] [address] Zoya Peter PA [address] [place] [address] 04/05/2025 9:45 AM EDT [facility] Visit [facility] [address] [place] [address] Tez Zaragoza MD [address] [place] [address] documented as of this encounter Goals Goal Patient Goal Type Associated Problems Recent Progress Patient-Stated? Author Help patient manage antidepressant medication Care Plan Patient on antidepressant monitoring plan No Florecita Figueroa Baseline PHQ-9 Care Plan Baseline PHQ-9 No Florecita Figueroa documented as of this encounter Visit Diagnoses Not on filedocumented in this encounter Additional Health Concerns Active Problems Noted Date Diagnosed Date Patient on antidepressant monitoring plan 2023 Baseline PHQ-9 10/22/2023 documented as of this encounter Care Teams Whipped Topping Mixer Relationship Specialty Start Date End Date Tez Zaragoza MD [address] [place] [address] PCP - General Family Medicine 01/27/24 Suzan Carrington, SOCKET WELDER HELPER [address] [facility] [address] [place] [address] PCP - [facility] CHANGE MANAGEMENT MANAGER 12/08/23 documented as of this encounter
--- OUTSIDE RECORDS SUMMARY | 2025-02-28 11:17 | XMS_ITS | Encounter Summary ---
Author Organization [facility] Address [address] [place] [address] Care Team Providers Care Reconciliation Specialist Name Role Phone Tez Zaragoza MD Primary Care Provider [phone] Suzan Carrington SENIOR ABAP DEVELOPER Unavailable [phone] Encounter Details Date Type Department Care Team (Late st Contact Info) Description 01/13/2025 Abstract [facility] [address] [facility] [place] [address] Marcela Reyna LPN Social History Tobacco Use Types Packs/Day Years [...] 08/21/2023 How often do you attend chur ch or holiness services? Never 08/21/2023 Do you belong to any clubs o r organizations such as taoism groups, unions, fraternal or athletic groups, or [...] medical care, and heating? Patient declined 08/21/2023 [facility] - Occupational Stress Questionnaire Answer Date Recorded [...] place to sleep or slept in a penitentiary (including now)? No 08/21/2023 Comments No Sex [...] 03/16/2025 8:30 AM EDT Ancillary Procedure [facility] [address] [facility] [place] [address] 03/29/2025 1:00 PM EDT Office Visit [facility] OB [address] [facility] [place] [address] Zoya Peter PA [address] [facility] [address] [place], [place] [address] 04/05/2025 9:45 AM EDT Office Visit [facility] [address] [place] [address] Tez Zaragoza MD [address] [place] [address] documented as of this encounter Goals Goal [...] documented as of this encounter Care Teams Reconciliation Specialist Relationship Specialty Start Date End Date Tez Zaragoza MD [address] [place] [address] PCP - General Family Medicine 01/27/24 Suzan Carrington, SENIOR ABAP DEVELOPER [address] [place] [address] PCP - SYEDA Bolaños WIRE WRAPPING MACHINE OPERATOR 12/08/23 documented as of this encounter
--- OUTSIDE RECORDS SUMMARY | 2025-02-28 11:17 | XMS_ITS | Encounter Summary ---
Author Organization [facility] Address [address] [place] [address] Care Team Providers Care Tetryl Blender Operator Name Role Phone Tez Zaragoza MD Primary Care Provider [phone] Suzan Carrington HOME ENERGY RATER Unavailable [phone] Encounter Details Date Type Department Care Team (Late st Contact Info) Description 02/10/2025 Telephone [facility] [address] [place] [address] Tez Zaragoza MD [address] [place] [address] Social History Tobacco Use Types Packs/Day Years [...] often do you attend chur ch or scientologist services? Never 08/21/2023 Do you belong to any clubs o r organizations such as zoroastrianism groups, unions, fraternal or athletic groups, or [...] medical care, and heating? Patient declined 08/21/2023 [facility] - Occupational [...] place to sleep or slept in a fci (including now)? No 08/21/2023 Comments No Sex and Gender Information Value Date Recorded Sex Assigned at Female 02/25/2023 3:19 PM EDT Legal Sex Female 9:29 PM EDT Gender Identity Female 02/25/2023 3:19 PM EDT Sexual Orientation Pansexual 02/25/2023 3: 19 PM EDT documented as of this encounter Miscellaneous Notes * Telephone Encounter - Tez Zaragoza MD - 02/10/2025 5:18 PM EDT Okay to provide note. * Telephone Encounter - SANA WALSH - 02/10/2025 11:14 AM EDT Patient needs a note stating she can't work due to complex regional pain syndrome, for job and family services. Patient states she has had us write this for her before, and we were able to cover her for a full year. clm documented in this encounter Plan of Treatment Upcoming Encounters Date Type Department Care Team (Waqas cronin Contact Info) Description 03/16/2025 8:30 AM EDT Ancillary Procedure [facility] [address] [facility] [place] [address] 03/29/2025 1:00 PM EDT Office Visit [facility] [address] [facility] [address] Zoya Peter, PA [address] [facility] [address] [place], [place] [address] 04/05/2025 9:45 AM EDT Office Visit [facility] [address] [place] [address] Tez Zaragoza MD [address] [place] [address] documented as of this encounter Goals Goal [...] documented as of this encounter Care Teams Tetryl Blender Operator Relationship Specialty Start Date End Date Tez Zaragoza MD [address] [place] [address] PCP - General Family Medicine 01/27/24 Suzan Carrington NP [address] [place], [place] [address] PCP - [facility] CONTINUOUS MINING MACHINE COAL MINER 12/08/23 documented as of this encounter
--- OUTSIDE RECORDS SUMMARY | 2025-02-28 11:17 | XMS_ITS | Encounter Summary ---
Author Organization [facility] Address [address] [place] [address] Care Team Providers Care Sanitary Landfill Supervisor Name Role Phone Tez Zaragoza MD Primary Care Provider Tez Zaragoza MD Primary Care Provider [phone] Tez Zaragoza MD Primary Care Provider Suzan Carrington CITY CLERK Unavailable Encounter Details Date Type Department Care Team (Late st Contact Info) Description 03/19/2023 Abstract [facility] OB [address] [place] [address] Chay Castro, DO [address] [place], [place] [id number] Social History Tobacco Use Types Packs/Day Years [...] EDT Ancillary Procedure [facility] [address] [facility] [place] [address] 03/29/2025 1:00 PM EDT Office Visit [facility] [address] [facility] [place] [address] Zoya Peter PA [address] [facility] [place] [address] 04/05/2025 9:45 AM EDT Office Visit [facility] [address] [place] [address] Tez Zaragoza MD [address] [place] [address] documented as of this encounter Visit Diagnoses Not on filedocumented in this encounter Care Teams Sanitary Landfill Supervisor Relationship Specialty Start Date End Date Tez Zaragoza MD PCP - General Family Medicine 02/26/23 11/11/23 Tez Zaragoza MD PCP - General Family Medicine 11/12/23 01/26/24 Tez Zaragoza MD [address] [place] [address] PCP - General Family Medicine 01/27/24 Suzan Carrington NP [address] [place] [address] [address] [place], [place] [id number] PCP - [facility] PUBLIC WELFARE WORKER 12/08/23 documented as of this encounter
--- OUTSIDE RECORDS SUMMARY | 2025-02-28 11:17 | XMS_ITS | Clinical Summary ---
Author Organization [facility] Address [address] [place] [address] Care Team Providers Care Associate Professor Of Library Science Name Role Phone Tez Zaragoza MD Primary Care Provider [phone] Suzan Carrington DEBIT AGENT Unavailable [phone] Allergies Active Allergy Reactions Criticality Noted Date Comments Hydrocodone-Acetaminophen GI intolerance 2022 Iodine Hives,Itching,Rash,Unknown Low 8 Wound Dressing Adhesive Hives,Itching,Rash Low 06/08 Medications potassium chloride CR (K-Tab) 20 MEQ ER tabletIndications: Edema of both legs Take 1 tablet (20 mEq) by mouth Daily as needed (Edema) 90 tablet 3 Active levothyroxine (Synthroid, Levoxyl) 100 MCG tabletIndications: History of hyperthyroidism TAKE 1 TABLET BY MOUTH EVERY MORNING ON AN EMPTY STOMACH 30 tablet 11 Active cholecalciferol (Vitamin D-3) 50 MCG (1999) tabletIndications: Vitamin D deficiency, unspecified Take 1 tablet (50 mcg) by mouth Daily 90 tablet 3 024 Active topiramate (Topamax) 50 MG tabletIndications: Ocular migraine Take 50 mg by mouth in the morning and 50 mg before bedtime. 60 tablet 5 024 Active ondansetron (Zofran) 4 MG/5ML solution Take by mouth 1 (one) time Active rizatriptan BRAKE ADJUSTER (Maxalt-BRAKE ADJUSTER) 10 MG disintegrating tabletIndications: Ocular migraine Take 1 tablet (10 mg) by mouth 1 (one) time if needed for migraine May repeat in 2 hours if unresolved. Do not exceed 30 mg in 24 hours. 9 tablet 5 025 Active buPROPion XL (Wellbutrin XL) 300 MG 24 hr tabletIndications: Mild recurrent major depression Take 1 tablet (300 mg) by mouth Daily 90 tablet 3 025 Active furosemide (Lasix) 40 MG tabletIndications: Bilateral leg edema Take 1 tablet (40 mg) by mouth Daily as needed (as needed) 90 tablet 3 025 Active hydrOXYzine HCl (Atarax) 50 MG tabletIndications: MARGARETH (generalized anxiety disorder) Take 1 tablet (50 mg) by mouth 4 (four) times a day as needed for anxiety 60 tablet 3 025 Active pantoprazole (ProtoNix) 40 MG EC tabletIndications: Gastro-esophageal reflux disease without esophagitis Take 1 tablet (40 mg) by mouth Daily 90 tablet 3 025 Active buPROPion XL (Wellbutrin XL) 150 MG 24 hr tabletIndications: MARGARETH (generalized anxiety disorder) Take 1 tablet (150 mg) by mouth Daily 30 tablet 5 025 Active Atogepant (Qulipta) 60 MG tabletIndications: Migraine without aura and without status migrainosus, not intractable Take 60 mg by mouth Daily 30 tablet 2 025 Active Tirzepatide 2.5 MG/0.5ML solution auto-injectorIndic ations:Class 3 severe obesity due to excess calories with serious comorbidity and body mass index (BMI) of 45.0 to 49.9 in adult ([facility]),Prediabe dmitry Inject 2.5 mg under the skin 1 (one) time per week 2 mL 025 Active naratriptan (Amerge) 1 MG tabletIndications: Migraine without aura and without status migrainosus, not intractable Take 1 tablet (1 mg) by mouth 1 (one) time if needed for migraine May repeat in 4 hours if unresolved. Do not exceed 5 mg in 24 hours. 9 tablet 025 Active butalbital-acetami nophen-caffeine 50-325-40 MG tabletIndications: Migraine without aura and without status migrainosus, not intractable Take 1 tablet by mouth 4 (four) times a day as needed for headaches 60 tablet 2 025 Active gabapentin (Neurontin) 100 MG capsule Take 100 mg by mouth at bedtime 023 2024 Discontinued fluticasone (Flonase) 50 MCG/ACT nasal sprayIndications:C hronic rhinosinusitis Administer 2 sprays into each nostril Daily Shake gently. Before first use, prime pump. After use, clean tip and replace cap. 48 g 3 025 2024 Discontinued cetirizine-pseudoe phedrine (ZyrTEC-D) 5-120 MG 12 hr tabletIndications: Chronic rhinosinusitis Take 1 tablet by mouth in the morning and 1 tablet before bedtime. 180 tablet 3 025 2024 Discontinued Active Problems Problem Noted Date Diagnosed Date Pelvic pain in female 01/03/2025 Chronic rhinosinusitis 07/28/2024 Assessment & Plan (07/28/2024 11:59 AM EST): Symptoms for weeks and minimal improvement. Start augmentin x 30 days. Start flonase daily. If no improvement in symptoms will refer to ENT. 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 Elevate legs PRN. Assessment & Plan (01/27/2024 1:55 PM EDT): Increased edema and add aldactone. Take extra lasix for next 3 days. Check labs and echo. Assessment & Plan (08/27/2023 10:10 AM EST): Edema stable and use lasix PRN. Elevate legs PRN. Endometriosis 03/21/2023 Equinus contracture of right ankle 03/21/2023 MARGARETH (generalized anxiety disorder) 03/21/2023 Assessment & Plan (04/09/2024 9:34 AM EDT): Symptoms tolerable with wellbutrin and continue. Use hydroxyzine PRN. Assessment & Plan (08/27/2023 10:11 AM EST): Symptoms tolerable with wellbutrin and continue. Use hydroxyzine PRN. GERD without esophagitis 03/21/2023 Assessment & Plan (04/09/2024 9:34 AM EDT): Symptoms controlled with protonix and continue. Assessment & Plan (08/27/2023 10:11 AM EST): Symptoms controlled with protonix and continue. Hypothyroidism 03/21/2023 Assessment & Plan (02/25/2025 9:55 AM EDT): Repeat labs. Mild recurrent major depression 03/21/2023 Assessment & Plan (04/09/2024 9:35 AM EDT): Symptoms tolerable with wellbutrin and continue. Assessment & Plan (08/27/2023 10:11 AM EST): Symptoms tolerable with wellbutrin and continue. Class 3 severe obesity due t o excess calories with serious comorbidity and body mass index (BMI) of 45.0 to 49.9 in adult 03/21/2023 Assessment & Plan (02/25/2025 9:55 AM EDT): Problems losing weight and try tirzepatide. Discussed proper diet and regular aerobic exercise. Recommend Weight Watchers and need to limit calories and smaller portions. Need to increase activity and regular aerobic exercise several days a week for 30 minutes at a time. Menorrhagia 03/21/2023 Motion sickness due to anesthesia 03/21/2023 Nerve entrapment syndrome of right foot 03/21/20 Neuritis 03/21/2023 Migraine without aura and wi thout status migrainosus, not intractable 03/21/2023 Assessment & Plan (02/25/2025 9:55 AM EDT): Migraines significantly worse and add qulipta. Stop maxalt and try fioricet or amerge. Assessment & Plan (04/09/2024 9:34 AM EDT): CADET controlled with topamax and continue. Use maxalt PRN. Assessment & Plan (01/27/2024 1:57 PM EDT): CADET worse and resume topamax 50 mg. Stop imitrex and try maxalt. Use OTC PRN. Assessment & Plan (08/27/2023 10:11 AM EST): CADET stable with topamax and continue. Use imitrex PRN. 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) 04/15/2018 Resolved Problems Problem Noted Date Diagnosed Date Resolved Date Recurrent major depression 11/12/2023 0 04/09/2024 Difficulty walking 03/21/2023 3 Raised TSH level 03/21/2023 02/25/2025 Snoring 03/21/2023 02/25/2025 Vertigo 03/21/2023 02/25/2025 Encounters Date Type Department Care Team Description 02/28/2025 Refill [facility] [address] [place] [address] Tez Zaragoza MD Ocular migraine 02/25/2025 9:15 AM EDT Office Visit [facility] [address] [place] [phone] Tez Zaragoza MD Migraine without aura and without status migrainosus, not intractable (Primary Dx); Hypothyroidism, unspecified type ; Class 3 severe obesity due to excess calories with serious comorbidity and body mass index (BMI) of 45.0 to 49.9 in adult ([facility]); Annual physical exam; Prediabetes 02/24/2025 1:30 PM EDT Office Visit [facility] [address] [place] [address] Zoya Peter PA Postoperative follow-up 02/24/2025 Bamboo flowsheet [facility] [address] [place] [address] Zoya Peter PA 02/24/2025 Travel 02/11/2025 Clinisync Result Encounter [facility] External Department Unsolicited Provider, Generic External Data 02/10/2025 Telephone [facility] [address] [place] [phone] Tez Zaragoza MD 01/26/2025 Clinisync Result Encounter [facility] External Department Unsolicited Provider, Generic External Data 01/26/2025 Clinisync Result Encounter [facility] External Department Unsolicited Provider, Generic External Data 01/20/[address] [facility] [address] [place] [address] Lis Castro DO 01/18/2025 Refill [facility] [address] [place] [address] Tez Zaragoza MD MARGARETH (generalized anxiety disorder) 01/17/2025 1:00 PM EDT Ancillary Procedure [facility] [address] [place] [address] Pelvic pain in female 01/13/20[address] Abstract [facility] [address] [place] [address] Marcela Reyna LPN 01/12/2025 1:30 PM EDT Consult [facility] [address] [place] [address] Lis Castro DO Pre-op examination; Pelvic pain in female; H/O: hysterectomy 01/12/2025 Travel 01/03/2025 10:50 AM EDT Office Visit [facility] [address] [place] [phone] Lis Castro, Pelvic pain in female 01/03/2025 Bamboo flowsheet [facility] [address] [place] [address] Lis Castro, 01/03/2025 Travel 12/27/2024 Refill [facility] [address] [place] [address] Tez Zaragoza MD Mild recurrent major depression ; Bilateral leg edema; MARGARETH (generalized anxiety disorder) ; Gastro-esophageal reflux disease without esophagitis from Last 3 Months Family History Medical History Relation Name Comments Depression Brother major Hypertension Brother Mental illness Brother Alcohol abuse Father Popeyejudyer Etmayelinwideja Arthritis Father Didierer Etzwideja Bipolar disorder Father Popeyeopher Etzwiler Depression Father Didierer Etmayelinwideja major Diabetes Father Didierer Etmayelinwideja Heart disease Father Didierer Etzwiler Hyperlipidemia Father Popeyeopher Etzwiler Hypertension Father Didierer Etzwiler Stroke Father Popeyeopher Etzwiler Ulcers Father Tim Etzwiler peptic ulcer Vit B12 deficiency anemia Father Tim Red wilnghia blood clots Father Tmi Tiffany Alzheimer's disease Maternal Grandfather Artemio Romi Arthritis Maternal Grandfather Artemio Romi Hyperlipidemia Maternal Grandfather Artemio Romi Hypertension Maternal Grandfather Artemio Romi Stroke Maternal Grandfather Artemio Romi Cancer Maternal Grandmother Mirta Romi Depression Maternal Grandmother Mirta Romi major Hyperlipidemia Maternal Grandmother Mirta Romi Hypertension Maternal Grandmother Mirta Romi Migraines Maternal Grandmother Mirta Romi headach es Arthritis Mother Nereida Marsh Cervical cancer Mother Nereida Marsh Heart failure Mother Nereida Marsh Hyperlipidemia Mother Nereida Marsh Hypertension Mother Nereida Marsh Migraines Mother Nereida Marsh headache Stroke Mother Nereida Marsh varicose veins Mother Nereida Marsh Cervical cancer Paternal Grandfather Ashlie Allen Diabetes Paternal Grandfather Ashlie Allen Hyperlipidemia Paternal Grandfather Ashlie Allen Hypertension Paternal Grandfather Ashlie Allen Mental illness Paternal Grandfather Ashlie Allen Ulcers Paternal Grandfather Ashlie Allen pept ic ulcer Vit b12 deficiency anemia Paternal Grandfather Ashlie Allen COPD Paternal Grandmother Relation Name Status Comments Brother 1 brother Father Tim Allen Alive Maternal Grandfather Artemio Llanos Maternal Grandmother Mirta Llanos Mother Nereida Marsh Alive Paternal Grandfather Ashlie Allen Paternal Grandmother Social History Tobacco Use Types Packs/Day Years Used Date Smoking Tobacco: Some Days Cigarettes Smokeless Tobacco: Never Tobacco Cessation:Ready to Q uit: Not Asked; Counseling Given: Not Answered Comments:I vape semi-regularly now and will smoke a [...] week 08/21/2023 How often do you attend [facility] or pentecostalism services? Never 08/21/2023 Do you belong to any clubs o r organizations such as denominational groups, unions, fraternal or athletic groups, or [...] medical care, and heating? Patient declined 08/21/2023 [facility] - Occupational [...] place to sleep or slept in a senior care (including now)? No 08/21/2023 Comments No Sex and Gender Information Value Date Recorded Sex Assigned at Female 02/25/2023 3:19 PM EDT Legal Sex Female 9:29 PM EDT Gender Identity Female 02/25/2023 3:19 PM EDT Sexual Orientation Pansexual 02/25/2023 3: 19 PM EDT Last Filed Vital Signs Vital Sign Reading [...] Mass Index 47.01 02/25/2025 9:18 AM EDT Plan of Treatment Upcoming Encounters Date Type Department Care Team (Late st Contact Info) Description 03/16/2025 8:30 AM EDT Ancillary Procedure [facility] [address] [place] [phone] 03/29/2025 1:00 PM EDT Office Visit [facility] [address] [place] [address] Zoya Peter PA [address] [place], [place] [phone] 04/05/2025 9:45 AM EDT [facility] Visit [facility] [address] [place] [phone] Tez Zaragoza MD [address] [place] [address] Health Maintenance Due Date Last Done Comments Influenza Vaccine (Season Ended) 2025 Cervical Cancer Screening Discontinued Pap Smear Discontinued 12/31/2022, 06/13/2021 HPV/Cotest Discontinued Goals Goal Patient Goal Type Associated Problems Recent Progress Patient-Stated? Author Help patient manage antidepressant medication Care Plan Patient on antidepressant monitoring plan Florecita Barron Baseline PHQ-9 Care Plan Baseline PHQ-9 Florecita Barron Procedures Procedure Name Priority Date/Time Associated Diagnosis Comments ALL CBC WITH AUTO DIFF Routine 02/11/2025 9:42 AM EDT XR CHEST 2V 01/26/2025 11:50 AM EDT ALL BASIC METABOLIC PANEL Routine 01/26/2025 11:30 AM EDT ECG 12-LEAD 01/26/2025 11:30 AM EDT US PELVIC COMPLETE W/ TV Routine 01/17/2025 1:31 PM EDT Pelvic pain in female POCT URINALYSIS DIPSTICK Routine 01/12/2025 1:53 PM EDT Pre-op examination Pelvic pain in female POCT URINALYSIS DIPSTICK Routine 01/03/2025 11:03 AM EDT Pelvic pain in female PAP SMEAR Routine 12/31/2022 12:00 AM EDT from Last 3 Months or Most Recently Relevant to Health Maintenance Results * (ABNORMAL) ALL CBC WITH AUTO DIFF (02/11/2025 9:42 AM EDT) [facility] WBC 7.5 4.0 - 11.0 10 3/uL TBH TBH RBC 3.94(L) 4.20 - 5.40 10 6/uL TBH TBH HGB 12.8 12.0 - 16.0 g/dL TBH TBH HCT 39.2 36.0 - 48.0 % TBH TBH MCV 99.5(H) 81.0 - 99.0 fL TBH TBH MCH 32.5 26.7 - 34.0 pg TBH TBH MCHC 32.7 29.9 - 35.2 g/dL TBH TBH RDW 11.9 11.0 - 15.0 % TBH TBH PLT 182 150 - 450 10 3/uL TBH TBH MPV 10.9 9.5 - 13.5 fL TBH NEUTROPHILS PERCENT AUTO 63.0 43.0 - 75.0 % TBH LYMPHOCYTES PERCENT AUTO 26.6 20.5 - 60.0 % TBH MONOCYTES PERCENT AUTO 8.8 1.7 - 12.0 % TBH TBH EO % 0.9 0.9 - 7.0 % TBH BASOPHILS PERCENT AUTO 0.4 0.2 - 2.0 % TBH IMMATURE GRANULOCYTES PCT AUTO 0.3 0.0 - 0.5 % TBH NEUTROPHILS ABSOLUTE AUTO 4.7 1.4 - 6.5 10 3/uL TBH LYMPHOCYTES ABSOLUTE AUTO 2.0 1.2 - 3.8 10 3/uL TBH MONOCYTES ABSOLUTE AUTO 0.7 0.3 - 0.8 10 3/uL TBH TBH EO # 0.1 0.0 - 0.7 10 3/uL TBH BASOPHILS ABSOLUTE AUTO 0.0 0.0 - 0.1 10 3/uL TBH IMMATURE GRANULOCYTES ABS AUTO 0.02 0.00 - 0.03 10 3/uL TBH 02/11/2025 9:42 AM EDT 02/11/2025 9:43 AM EDT Narrative [facility] - 02/11/2025 9:48 AM EDT us Lis Matthew DO [facility] Final Result [facility] TB * XR CHEST 2V (01/26/2025 11:50 AM EDT) Anatomical Region Laterality Modality Other 01/26/2025 11:5 0 AM EDT Narrative 01/26/2025 11:52 AM EDT The [address] [address] XRay Report Signed Patient: ROMI-ETZWILER,AZUL M MR#: [id number] : 1990 Acct:[id number] Age/Sex: 34 / F ADM Date: 01/26/25 Loc: [facility] [[email or web address] Attending Dr: Lis Castro D.O. Ordering Physician: Lis Castro D.O. Date of Service: 01/26/25 Procedure(s): XR chest 2V Accession Number(s): [id number] cc: Lis Castro D.O.; Tez Zaragoza M.D. The [place] [id number] Patient Name: AZUL SARKAR MRN: [id number] date: 1990 Sex: F Assigned Patient Location: [facility] Current Patient Location: [facility] Accession/Order Number: [id number] Exam Date: 01/26/2025 11:49 Report Date: 01/26/2025 11:50 At the request of: LIS CASTRO DO Procedure: XR chest 2V PA AND LATERAL CHEST: CLINICAL HISTORY: Preoperative clearance COMPARISON: 03/04/2023 There is no focal parenchymal consolidation, effusion or pneumothorax. The cardiac, hilar and mediastinal silhouettes are within normal limits. There is no vascular congestion. The visualized bony thorax is intact. There is slight levoscoliotic curvature. XR/XR chest 2V IMPRESSION: NO ACUTE CARDIOPULMONARY ABNORMALITY. Impression dictated by: Annmarie Aquino M.D. 01/26/2025 11:50 AM Dictation Location: [place] [address] Electronically authenticated by: [id number] Y Date: 01/26/2025 11:50 Dictated By: Annmarie Aquino M.D. Signed By: 01/26/25 1152 DD/ 1150 TD/TT: [employer] Laminator: Procedure Note Radiology, Radiologist, - 01/26/2025 The [place] [id number] XRay Report Signed Patient: AZUL SARKAR MMR#: [id number] : 1990Acct:[id number] Age/Sex: 34 / FADM Date: 01/26/25 Loc: PST Attending Dr: Lis Castro D.O. Ordering Physician: Lis Castro D.O. Date of Service: 01/26/25 Procedure(s): XR chest 2V Accession Number(s): [id number] cc: Lis Castro D.O.; Tez Zaragoza M.D. [place] [address] Patient Name: AZUL SARKAR MRN: [facility]:[id number] date: 1990 Sex: F Assigned Patient Location: SURGOUT Current Patient Location: [facility] Accession/Order Number: [id number] Exam Date: 01/26/2025 11:49 Report Date: 01/26/2025 11:50 At the request of: LIS CASTRO DO Procedure: XR chest 2V PA AND LATERAL CHEST: CLINICAL HISTORY: Preoperative clearance COMPARISON: 03/04/2023 There is no focal parenchymal consolidation, effusion or pneumothorax.The cardiac, hilar and mediastinal silhouettes are within normal limits.There is no vascular congestion. The visualized bony thorax is intact. Thereis slight levoscoliotic curvature. XR/XR chest 2V IMPRESSION: NO ACUTE CARDIOPULMONARY ABNORMALITY. Impression dictated by: Annmarie Aquino M.D. 01/26/2025 11:50 AM Dictation Location: [place] [address] Electronically authenticated by: [id number] Y Date: 1:50 Dictated By: Annmarie Aquino M.D. Signed By:01/26/25 1152 DD/ 1150 TD/TT: [employer] Laminator: us Generic External Data Provider [facility] IMAGING Final Result * ECG 12-LEAD (01/26/2025 11:30 AM EDT) Anatomical Region Laterality Modality Other 01/26/2025 11:3 0 AM EDT Narrative 01/26/2025 9:45 PM EDT The [place] [id number] Electrocardiograph Report Signed Patient: AZUL SARKAR MR#: [id number] : 1990 Acct:[id number] Age/Sex: 34 / F ADM Date: 01/26/25 Loc: PST Attending Dr: Lis Castro D.O. Ordering Physician: Lis Castro D.O. 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 Measurements Intervals [place] Rate: 74 P: 49 VT: 122 QRS: -1 QRSD: 96 T: 8 QT: 381 QTc: 425 Interpretive Statements SINUS RHYTHM WITH SINUS ARRHYTHMIA Normal ECG Compared to ECG 03/04/2023 11:51:08 No significant changes Electronically Signed On 01-26-2025 21:45:21 EDT by ASHLIE AMOS M.D. Dictated By: ASHLIE AMOS Signed By: 01/26/25 2143 DD/ 1130 TD/TT: [employer] Laminator: Procedure Note Radiology, Radiologist, MD - 01/26/[address] [address] Electrocardiograph Report Signed Patient: AZUL SARKAR MMR#: [id number] : 1990Acct:[id number] Age/Sex: 34 / FADM Date: 01/26/25 Loc: PST Attending Dr: Lis Castro D.O. Ordering Physician: Lis Castro D.O. 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 Measurements Intervals [place] Rate: 74 P: 49 VT: 122 QRS: -1 QRSD: 96 T: 8 QT: 381 QTc: 425 Interpretive Statements SINUS RHYTHM WITH SINUS ARRHYTHMIA Normal ECG Compared to ECG 03/04/2023 11:51:08 No significant changes Electronically Signed On 01-26-2025 21:45:21 EDT by ASHLIE AMOS M.D. Dictated By: ASHLIE AMOS Signed By:01/26/25 6662 DD/ 1130 TD/TT: [employer] Laminator: Generic External Data Provider [facility] IMAG[facility] Final Result * (ABNORMAL) ALL BASIC METABOLIC PANEL (01/26/2025 11:30 AM EDT) SODIUM 141 136 - 145 mmol/L TBH POTASSIUM 4.1 3.5 - 5.1 mmol/L TBH CHLORIDE 108(H) 98 - 107 mmol/L TBH CARBON DIOXIDE 25.6 21.0 - 32.0 mmol/L TBH ANION GAP 11.5 TBH GLUCOSE 102 74 - 106 mg/dL TBH BLOOD UREA NITROGEN 17.0 7.0 - 18.0 mg/dL TBH CREATININE 1.01 0.55 - 1.02 mg/dL TBH TBH EGFR-AF CAMEROONIAN >60 >=60 mL/min/1.7 3m 2 TBH TBH EGFR-NON AF CAMEROONIAN >60 >=60 mL/min/1.7 3m 2 TBH BUN CREATININE RATIO 16.8 TBH CALCIUM 9.2 8.5 - 10.1 mg/dL TBH 01/26/2025 11:3 0 AM EDT 01/26/2025 11:40 AM EDT Narrative [facility] - 01/26/2025 12:03 PM EDT us Lis Castro DO ABRAHAM Final Result [facility] * US Pelvis w/ TV (01/17/2025 1:31 PM EDT) Anatomical Region Laterality Modality Pelvis Ultrasound 01/18/2025 8:13 AM EDT Narrative 01/18/2025 8:13 AM EDT EXAM: US PELVIC COMPLETE W/ TV HISTORY: [...] II, MD, PHD at 18-Jan-2025 08:11:35 AM [facility] Procedure Note Shant Quach MD - 01/18/2025 EXAM: US PELVIC COMPLETE W/ TV HISTORY: Pelvic pain, vaginal pain. COMPARISON: None available. TECHNIQUE: Two-dimensional transabdominal grayscale ultrasound imaging ofthe pelvis was performed. Color flow Doppler imaging of the ovaries wasalso performed. Transvaginal was performed. FINDINGS: UTERUS The uterus is surgically absent, and the midline pelvis appearsunremarkable. RIGHT OVARY The right ovary is not visualized. LEFT OVARY 4.4 x 3.6 x 4.0 cm The left ovary demonstrates a normal echotexture. There is normal colorDoppler flow. There is a 3.1 cm mildly complex cyst visualized. No fluid is present within the cul-de-sac. IMPRESSION: 1. Surgically absent uterus. 2. Mildly complex left ovarian cyst. A follow-up transvaginal ultrasoundin 6-8 weeks is recommended to monitor for resolution. 3. Normal color Doppler flow within the left ovary, the right ovary wasnot visualized. Interpreted by: Electronically signed by SHANT QUACH II, MD, PHD [id number] 08:11:35 AM [facility] Lisdeuce Rushingo DO IMG US PROCEDURES Final Result * POCT urinalysis dipstick manually resulted (01/12/2025 1:53 PM EDT) Only the most recent of2 resultswithin the time period is included. Color, UA Yellow Clarity, UA Clear Glucose, UA Negative Negative - 2000(110) ++++ mg/dL Bilirubin, UA Negative Negative - 4(70) +++ mg/dL Ketones, UA Negative Negative - 160(16) ++++ mg/dL Spec Grav, UA 1.020 1 - 1.03 Blood, UA Negative Negative - 50 Darren/mcL pH, UA 7.5 5 - 9 Protein, UA Negative Negative - 2000(20) ++++ mg/dL Urobilinogen, UA 0.2 0.2 - 12 mg/dL Leukocytes, UA Negative Negative - 500+++ Delmy/mcL Nitrite, UA Negative Negative - Positive Urine 01/12/2025 1:53 PM EDT Lis Castro DO POINT OF CARE TEST ENTER/EDIT OR DERABLES Final Result * Pap Smear (12/31/2022 12:00 AM EDT) Swab Cervical swab / Unknown Historical Provider LAB CYTOLOGY ORDERABLES F inal Result EXTERNAL LAB from Last 3 Months or Most Recently Relevant to Health Maintenance Additional Health Concerns Active Problems Noted Date Diagnosed Date Patient on antidepressant monitoring plan 2023 Baseline PHQ-9 10/22/2023 Insurance [facility] MEDICAID [place] Care Teams Associate Professor Of Library Science Relationship Specialty Start Date End Date Tez Zaragoza MD [address] [place] [address] PCP - General Family Medicine 01/27/24 Suzan Carrington, DEBIT AGENT [address] [facility] [address] [place] [address] PCP - [facility] LASERIST 12/08/23
--- OUTSIDE RECORDS SUMMARY | 2025-02-28 11:17 | XMS_ITS | Encounter Summary ---
Author Organization [facility] Address [address] [place] [address] Care Team Providers Care Digital Media Buyer Name Role Phone Tez Zaragoza MD Primary Care Provider [phone] Tez Zaragoza MD Primary Care Provider Tez Zaragoza MD Primary Care Provider Suzan Carrington STONE POLISHER HAND Unavailable [phone] Encounter Details Date Type Department Care Team (Late st Contact Info) Description 03/13/2023 Abstract [facility] [address] [place] [address] Chay Castro, DO [address] [place]le [place], [place] [id number] Social History Tobacco Use Types Packs/Day Years [...] suspected to have Coronavirus/COVID-19? No / Unsure 02/25/2023 4:19 PM EDT documented as of this encounter Plan of Treatment Upcoming Encounters Date Type Department Care Team (Late st Contact Info) Description 03/16/2025 8:30 AM EDT Ancillary Procedure [facility] [address] [facility] [place] [address] 03/29/2025 1:00 PM EDT Office Visit [facility] [address] [facility] [place] [address] Zoya Peter PA [address] [facility] [place] [address] 04/05/2025 9:45 AM EDT Office Visit [facility] [address] [place] [address] Tez Zaragoza MD [address] [place] [address] documented as of this encounter Visit Diagnoses Not on filedocumented in this encounter Care Teams Digital Media Buyer Relationship Specialty Start Date End Date Tez Zaragoza MD PCP - General Family Medicine 02/26/23 11/11/23 Tez Zaragoza MD PCP - General Family Medicine 11/12/23 01/26/24 Tez Zaragoza MD [address] [place] [phone] PCP - General Family Medicine 01/27/24 Suzan Carrington NP [address] [place] [address] [address], [place] [id number] PCP - [facility] FINE ARTS CHAIR 12/08/23 documented as of this encounter
--- OUTSIDE RECORDS SUMMARY | 2025-02-28 11:17 | XMS_ITS | Encounter Summary ---
Author Organization [facility] Address [address] [place] [address] Care Team Providers Care Chemical Engineering Professor Name Role Phone Tez Zaragoza MD Primary Care Provider [phone] Suzan Carrington COST CONTROL SUPERVISOR Unavailable [phone] Reason for Visit * Reason Onset Date Comments Med Refill 02/28/2025 Encounter Details Date Type Department Care Team (Late st Contact Info) Description 02/28/2025 [facility]ill [facility] [address] [place] [address] Tez Zaragoza MD [address] [place] [address] Ocular migraine Social History Tobacco Use Types Packs/Day Years [...] How often do you attend chur or spiritism services? Never 08/21/2023 Do you belong to any clubs o r organizations such as buddhism groups, unions, fraternal or athletic groups, or [...] medical care, and heating? Patient declined 08/21/2023 [facility] Occup[facility] ional [facility] - Occupational [...] place to sleep or slept in a snf (including now)? No 08/21/2023 Comments No Sex [...] 03/16/2025 8:30 AM EDT Ancillary Procedure [facility] [address] [place] [address] [place] [phone] 03/29/2025 1:00 PM EDT Office Visit [facility] OB [address] [place] [address] [place] [address] Zoya Peter PA [address] [place] [address] [place], [place] [id number] 04/05/2025 9:45 AM EDT Office Visit [facility] [address] [place] [address] Tez Zaragoza MD [address] [place] [address] documented as of this encounter Goals Goal Patient Goal Type Associated Problems Recent Progress Patient-Stated? Author Help patient manage antidepressant medication Care Plan Patient on antidepressant monitoring plan No Florecita Figueroa Baseline PHQ-9 Care Plan Baseline PHQ-9 Florecita Barron documented as of this encounter Visit Diagnoses Diagnosis Ocular migraine Variants of migraine, not elsewhere classified, without mention of intractable migraine without mention of status migrainosus documented in this encounter Additional Health Concerns Active Problems Noted Date Diagnosed Date Patient on antidepressant monitoring plan 2023 Baseline PHQ-9 10/22/2023 documented as of this encounter Care Teams Chemical Engineering Professor Relationship Specialty Start Date End Date Tez Zaragoza MD [address] [place] [address] PCP - General Family Medicine 01/27/24 Suzan Carrington NP [address] [facility] [address] [place] [address] PCP - SYEDA AJ 12/08/23 documented as of this encounter
--- OUTSIDE RECORDS SUMMARY | 2025-02-28 11:17 | XMS_ITS | Encounter Summary ---
Author Organization [facility] Address [address] [place] [address] Care Team Providers Care Vice President Tax Name Role Phone Tez Zaragoza MD Primary Care Provider [phone] Suzan Carrington COMPUTER TAPE LIBRARIAN Unavailable Encounter Details Date Type Department Care Team (Latest Contact Info) Description 02/24/2025 Travel Social History Tobacco Use Types Packs/Day Years [...] often do you attend chur ch or hindu services? Never 08/21/2023 Do you belong to any clubs o r organizations such as spiritism groups, unions, fraternal or athletic groups, or [...] medical care, and heating? Patient declined 08/21/2023 [facility] Occup[facility] ional Health - Occupational [...] place to sleep or slept in a group home (including now)? No 08/21/2023 Comments No Sex [...] EDT Ancillary Procedure [facility] [address] [facility] [place] [address] 03/29/2025 1:00 PM EDT Office Visit [facility] [address] [facility] [place] [address] Zoya Peter PA [address] [facility] [place] [address] 04/05/2025 9:45 AM EDT Office Visit [facility] [address] [place] [address] Tez Zaragoza MD [address] [place] [address] documented as of this encounter Goals Goal [...] documented as of this encounter Care Teams Vice President Tax Relationship Specialty Start Date End Date Tez Zaragoza MD [address] [place] [address] PCP - General Family Medicine 01/27/24 Suzan Carrington NP [address] [facility] [address] [place] [address] PCP - [facility] REGISTRAR MUSEUM 12/08/23 documented as of this encounter
--- OUTSIDE RECORDS SUMMARY | 2025-02-28 11:17 | XMS_ITS | Encounter Summary ---
Author Organization [facility] Address [address] [place] [address] Care Team Providers Care Flamer Sealer Name Role Phone Tez Zaragoza MD Primary Care Provider [phone] Suzan Carrington ELECTRICAL TEST ENGINEER Unavailable [phone] Encounter Details Date Type Department Care Team (Late st Contact Info) Description 07/06/2024 Orders Only [facility] [address] [place] [address] Bernabe Juárez PA [address] [place] [address] Social History Tobacco Use Types Packs/Day Years [...] How often do you attend chur or mandaen services? Never 08/21/2023 Do you belong to [...] medical care, and heating? Patient declined 08/21/2023 [facility] Answer Date [...] the money to buy more. Never true 12/14/20 23 Within the past 12 months, t [...] place to sleep or slept in a retirement (including now)? No 08/21/2023 Comments No Sex [...] 03/16/2025 8:30 AM EDT Ancillary Procedure [facility] OB [address] [place] [address] [place] [address] 03/29/2025 1:00 PM EDT Office Visit [facility] OB [address] [place] [address] [place] [phone] Zoya Peter PA [address] [facility] [place] [address] 04/05/2025 9:45 AM EDT Office Visit [facility] [address] [place] [phone] Tez Zaragoza MD [address] [place] [address] documented as of this encounter Goals Goal Patient Goal Type Associated Problems Recent Progress Patient-Stated? Author Help patient manage antidepressant medication Care Plan Patient on antidepressant monitoring plan No Florecita Figueroa Baseline PHQ-9 Care Plan Baseline PHQ-9 No Florecita Figueroa documented as of this encounter Procedures Procedure Name Priority Date/Time Associated Diagnosis Comments SCANNED LABS Routine 07/06/2024 9:53 AM EDT XR CHEST 1 VIEW Routine 07/06/2024 9:25 AM EDT documented in this encounter Results * SCANNED LABS (07/06/2024 9:53 AM EDT) Alexx Pena DO LAB CHG PERFORMABLES Final Resul t * XR chest 1 view (07/06/2024 9:25 AM EDT) Anatomical Region Laterality Modality Chest Radiographic Adriana ging Bernabe BRADFORD IMG XR PROCEDURES Final Result documented in this encounter Visit Diagnoses Not on filedocumented in this encounter Additional Health Concerns Active Problems Noted Date Diagnosed Date Patient on antidepressant monitoring plan 2023 Baseline PHQ-9 10/22/2023 documented as of this encounter Care Teams Flamer Sealer Relationship Specialty Start Date End Date Tez Zaragoza MD [address] [place] [address] PCP - General Family Medicine 01/27/24 Suzan Carrington NP [address] [facility] [address] [place] [address] PCP - [facility] Mami PRODUCT INTRODUCTION MANAGER 12/08/23 documented as of this encounter
[2025-02-28 12:15] LABS: Basophils Percent Auto 0.6 % (0.2-2.0); Eosinophils Absolute Auto 0.1 10^3/uL (0.0-0.7); Eosinophils Percent Auto 1.1 % (0.9-7.0); Hematocrit 36.7 % (36.0-48.0); Hemoglobin 11.9 g/dL (12.0-16.0); Immature Granulocytes Abs Auto 0.01 10^3/uL (0.00-0.03); Immature Granulocytes Pct Auto 0.2 % (0.0-0.5); Lymphocytes Absolute Auto 1.6 10^3/uL (1.2-3.8); Lymphocytes Percent Auto 29.5 % (20.5-60.0); Mean Corpuscular HGB Conc 32.4 g/dL (29.9-35.2); Mean Corpuscular Hemoglobin 32.3 pg (26.7-34.0); Mean Corpuscular Volume 99.7 fL (81.0-99.0); Mean Platelet Volume 11.3 fL (9.5-13.5); Monocytes Absolute Auto 0.5 10^3/uL (0.3-0.8); Monocytes Percent Auto 8.4 % (1.7-12.0); Neutrophils Absolute Auto 3.2 10^3/uL (1.4-6.5); Neutrophils Percent Auto 60.2 % (43.0-75.0); Platelet Count 215 10^3/uL (150-450); Red Blood Count 3.68 10^6/uL (4.20-5.40); Red Cell Distribution Width 12.1 % (11.0-15.0); White Blood Count 5.4 10^3/uL (4.0-11.0)
[2025-02-28 12:21] LABS: Alanine Aminotransferase 17 U/L (14-59); Albumin Globulin Ratio 0.8; Albumin Level 2.8 g/dL (3.4-5.0); Alkaline Phosphatase 83 U/L (46-116); Anion Gap 13.8; Aspartate Amino Transferase 11 U/L (15-37); BUN Creatinine Ratio 16.8; Bilirubin Direct 0.1 mg/dL (0.0-0.2); Bilirubin Total 0.3 mg/dL (0.2-1.0); Calcium 8.7 mg/dL (8.5-10.1); Carbon Dioxide 23.1 mmol/L (21.0-32.0); Chloride 107 mmol/L (98-107); Chol HDL Ratio 2.5; Cholesterol 162 mg/dL (<=200); Estimated GFR (African America >60 (>=60 mL/min/1.73m^2); Estimated GFR (Non-African Ame >60 (>=60 mL/min/1.73m^2); Globulin 3.4 g/dL; Glucose 98 mg/dL (74-106); HDL Cholesterol 66 mg/dL (40-60); Potassium 3.9 mmol/L (3.5-5.1); Sodium 140 mmol/L (136-145); Thyroid Stimulating Hormone 2.147 uIU/mL (0.358-3.740); Total Protein 6.2 g/dL (6.4-8.2); Triglycerides 83 mg/dL (<=150); VLDL CHOLESTEROL 16.6 mg/dL
[2025-02-28 12:35] LABS: Estimated Average Glucose 100 mg/dL; Glycohemoglobin A1C 5.1 % (4.5-6.2)
[2025-02-28 12:46] LABS: Free T4 0.94 ng/dL (0.76-1.46)
== END 2025-02-28 11:14 | disposition home or self-care (01) ==
LOC: LAB 11:15
PROVIDERS: PCP Family Medicine; Visit Provider Family Medicine
DX: Z00.00 Encounter for general adult medical examination without abnormal findings (principal)
CPT/HCPCS: 36415; 80048; 80061; 80076; 83036; 84439; 84443; 85025

== ENCOUNTER 2025-03-29 22:26 | Outpatient (REF) | payer MEDICAID, SELFPAY ==
--- OUTSIDE RECORDS SUMMARY | 2025-03-16 08:30 | XMS_ITS | Encounter Summary ---
Author Organization [facility] Address [address] [place] [address] Care Team Providers Care Wireless Architect Name Role Phone Tez Zaragoza MD Primary Care Provider [phone] Suzan Carrington ZIGZAG MACHINE OPERATOR Unavailable [phone] Encounter Details Date Type Department Care Team (Latest Contact Info) Description 03/16/2025 8:30 AM EDT Ancillary Procedure [facility] [address] [facility] [place] [address] Left ovarian cyst Social History Tobacco Use Types Packs/Day Years [...] often do you attend chur ch or episcopalian services? Never 08/21/2023 Do you belong to any clubs o r organizations such as evangelical groups, unions, fraternal or athletic groups, or [...] medical care, and heating? Patient declined 08/21/2023 [facility] of Occupat ional [facility] - Occupational Stress Questionnaire Answer Date Recorded [...] place to sleep or slept in a long-term (including now)? No 08/21/2023 Comments No Sex and Gender Information Value Date Recorded Sex Assigned at Female 02/25/2023 3:19 PM EDT Legal Sex Female 9:29 PM EDT Gender Identity Female 02/25/2023 3:19 PM EDT Sexual Orientation Pansexual 02/25/2023 3: 19 PM EDT documented as of this encounter Plan of Treatment Upcoming Encounters Date Type Department Care Team (Late st Contact Info) Description 04/05/2025 9:45 AM EDT [facility] [address] [place] [address] Tez Zaragoza MD [address] [place] [address] documented as of this encounter Goals Goal Patient Goal Type Associated Problems Recent Progress Patient-Stated? Author Help patient manage antidepressant medication Care Plan Patient on antidepressant monitoring plan Florecita Barron Baseline PHQ-9 Care Plan Baseline PHQ-9 Florecita Barron documented as of this encounter Procedures Procedure Name Priority Date/Time Associated Diagnosis Comments US PELVIC COMPLETE W/ TV Routine 03/16/2025 8:55 AM EDT Left ovarian cyst documented in this encounter Results * US Pelvis w/ TV (03/16/2025 8:55 AM EDT) Anatomical Region Laterality Modality Pelvis Ultrasound 03/17/2025 1:16 PM EDT Impressions 03/17/2025 1:46 PM EDT Resolved left ovarian cyst. TRANSCRIBED BY: ELECTRONICALLY SIGNED BY: Papo Nick MD Narrative 03/17/2025 1:46 PM EDT FINDINGS: Uterus surgically absent Endometrium n/a Right Ovary 2.7 x 2.0 x 2.0 cm Left Ovary 1.5 x 1.6 x 1.9 cm Comparison made with piror examination of January 17, 2025. Normal vaginal cuff. No pelvic fluid. No pelvic mass. Right ovarian 1.2 x 1.4 cm follicle/cyst. Normal left ovary. Procedure Note Papo Nick MD - 03/17/2025 FINDINGS: Uterus surgically absent Endometrium n/a Right Ovary 2.7 x 2.0 x 2.0 cm Left Ovary 1.5 x 1.6 x 1.9 cm Comparison made with piror examination of January 17, 2025. Normal vaginal cuff. No pelvic fluid. No pelvic mass. Right ovarian 1.2 x1.4 cm follicle/cyst. Normal left ovary. IMPRESSION: Resolved left ovarian cyst. TRANSCRIBED BY: ELECTRONICALLY SIGNED BY: Papo Nick MD us Chay Castro DO [facility] US PROCEDURES Final Result documented in this encounter Visit Diagnoses Diagnosis Left ovarian cyst Other and unspecified ovarian cyst documented in this encounter Additional Health Concerns Active Problems Noted Date Diagnosed Date Patient on antidepressant monitoring plan 2023 Baseline PHQ-9 10/22/2023 documented as of this encounter Care Teams Wireless Architect Relationship Specialty Start Date End Date Tez Zaragoza MD [address] [place] [address] PCP - General Family Medicine 01/27/24 Suzan Carrington NP [address] [facility] 110 [place] [address] PCP - SYEDA Bolaños [facility] 12/08/23 documented as of this encounter
--- OUTSIDE RECORDS SUMMARY | 2025-03-29 13:00 | XMS_ITS | Encounter Summary ---
Author Organization [facility] Address [address] [place] [address] Care Team Providers Care Wage Analyst Name Role Phone Tez Zaragoza MD Primary Care Provider [phone] Suzan Carrington CUSTOMER EXPERIENCE SPECIALIST Unavailable [phone] Reason for Visit * Reason Comments Well Women Visit Results Encounter Details Date Type Department Care Team (Late st Contact Info) Description 03/29/2025 1:00 PM EDT Office Visit [facility] [address] [facility] [address] Zoya Peter PA [address] [facility] [address] [place], [facility]11 Well woman exam with routine gynecological exam; Encounter to discuss test results Social History Tobacco Use Types Packs/Day Years [...] How often do you attend chur or pentecostal services? Never 08/21/2023 Do you belong to any clubs o r organizations such as pentecostal groups, unions, fraternal or athletic groups, or [...] medical care, and heating? Patient declined 08/21/2023 [facility] Occupat ional Health - Occupational [...] Sign Reading Time Taken Comments Blood Pressure 114/74 03/29/2025 1:08 PM EDT Pulse - - Temperature - - Respiratory Rate - - Oxygen Saturation - - Inhaled Oxygen Concentration - - Weight 116 kg (255 lb 6.4 oz) 03/29/2025 1:08 PM EDT Height - - Body Mass Index 46.71 02/25/2025 9:18 AM EDT documented in this encounter Progress Notes * SUZETTE Jennings - 03/29/2025 1:00 PM EDT Reason for Appointment: Patient ID: Azul Allen is a 34 y.o. female who presents for Well Women Visit and Results Patient presents today for Annual Exam. MEDICATIONS Current Outpatient Medications Medication Instructions buPROPion XL (WELLBUTRIN XL) 300 mg, Oral, Daily buPROPion XL (WELLBUTRIN XL) 150 mg, Oral, Daily wjqfngsakm-xsjccjsotiire-wetefsyp 50-325-40 MG tablet 1 tablet, Oral, 4 times daily PRN cholecalciferol (VITAMIN D-3) 50 mcg, Oral, Daily furosemide (LASIX) 40 mg, Oral, Daily PRN hydrOXYzine HCl (ATARAX) 50 mg, Oral, 4 times daily PRN levothyroxine (Synthroid, Levoxyl) 100 MCG tablet TAKE 1 TABLET BY MOUTH EVERY MORNING ON AN EMPTY STOMACH naratriptan (AMERGE) 1 mg, Oral, Once as needed, May repeat in 4 hours if unresolved. Do not exceed5 mg in 24 hours. ondansetron (Zofran) 4 MG/5ML solution Once pantoprazole (PROTONIX) 40 mg, Oral, Daily potassium chloride CR (K-Tab) 20 MEQ ER tablet 20 mEq, Oral, Daily PRN Qulipta 60 mg, Oral, Daily rizatriptan HORSE BREEDER (MAXALT-HORSE BREEDER) 10 mg, Oral, Once as needed, May repeat in 2 hours if unresolved. Do not exceed 30 mg in 24 hours. Tirzepatide 2.5 mg, Subcutaneous, Weekly topiramate (TOPAMAX) 50 mg, Oral, 2 times [...] Hypothyroidism 03/21/2023 Mild recurrent major depression 03/21/2023 Class 3 severe obesity due to excess calories with serious comorbidity and body mass index (BMI) of45.0 to 49.9 in adult ([facility]) 03/21/2023 Menorrhagia 03/21/2023 Motion sickness due to anesthesia 03/21/2023 Nerve entrapment syndrome of right foot 03/21/2023 Neuritis 03/21/2023 Migraine without aura and without status migrainosus, not intractable 03/21/2023 Back pain 03/21/2023 Polycystic ovarian syndrome 03/21/2023 Plantar fasciitis 03/21/2023 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) 04/15/2018 TTS (tarsal tunnel syndrome), right 03/21/2023 Vitamin D deficiency 03/21/2023 Genital warts 11/12/2023 HGSIL on Pap smear of cervix 11/12/2023 Prediabetes 02/17/2024 Chronic rhinosinusitis 07/28/2024 Pelvic pain in female 01/03/2025 Resolved Ambulatory Problems Diagnosis Date Noted Difficulty walking 03/21/2023 Raised TSH level 03/21/2023 Snoring 03/21/2023 Vertigo 03/21/2023 Recurrent major depression 11/12/2023 Past Medical History: Diagnosis Date Calculus of gallbladder without cholecystitis without obstruction Headache 2021 Migraine 2020 Morbid obesity with BMI of 45.0-49.9, adult ([facility]) Plantar fasciitis of right foot Smoker HISTORY PAST MEDICAL HISTORY SOCIAL HISTORY Past Medical History: Diagnosis Date Calculus of gallbladder without cholecystitis without obstruction Dysmenorrhea Dyspareunia, female Edema of both legs Endometriosis MARGARETH (generalized anxiety disorder) Genital warts GERD without esophagitis Headache 2021 HGSIL on Pap smear of cervix Hypothyroidism Migraine 2020 Morbid obesity with BMI of 45.0-49.9, adult ([facility]) Plantar fasciitis of right foot Polycystic ovarian [...] Hyperlipidemia Mother Nereida Marsh Alcohol abuse Father Tmi Etzwiler Bipolar disorder Father Popeyeopher Etzwiler Depression Father Tim Etzwiler major Ulcers Father Tim Etzwiler peptic ulcer Other (blood clots) Father Popeyeopher Etzwiler Diabetes Father Christopher Etzwiler Hyperlipidemia Father Christopher Etzwiler Hypertension Father Christopher Etzwiler Heart disease Father Popeyeopher Etzwiler Other (Vit B12 deficiency anemia) Father Christopher Etzwiler Arthritis Father Christopher Etzwiler Stroke Father Popeyeopher Etzwiler Hypertension Brother Depression Brother major Mental [...] COPD Paternal Grandmother Cervical cancer Paternal Grandfather Lna Etzwideja Hypertension Paternal Grandfather Lan Etzwiler Hyperlipidemia Paternal Grandfather Lan Etzwiler Diabetes Paternal Grandfather Lan Etzwiler Ulcers Paternal Grandfather Lan Etzporsche peptic ulcer Other (Vit b12 deficiency anemia) Paternal Grandfather Lan Tiffany Mental illness Paternal Grandfather Lan Tiffany SURGICAL HISTORY Past Surgical History: Procedure Laterality Date CHOLECYSTECTOMY ENDOMETRIAL ABLATION 03/12/2023 ENDOMETRIAL BIOPSY 03/12/2023 FOOT SURGERY Right 06/10/2019 LAPAROSCOPY DIAGNOSTIC / BIOPSY / ASPIRATION / LYSIS 10/31/2017 Diagnostic laparoscopy OTHER SURGICAL HISTORY 10/31/2017 LEAP PELVIC LAPAROSCOPY lap removal of tissue in uterus NV COLONOSCOPY,BIOPSY 09/22/2017 Colposcopy with biopsy of cervix [...] Objective: Physical Exam Constitutional: Appearance: Normal appearance. Genitourinary: Right Adnexa: not tender and no mass present. Left Adnexa: not tender and no mass present. No cervical discharge. Breasts: Breasts are soft. Right: Normal. Left: Normal. HENT: Head: Normocephalic. Nose: Nose normal. Mouth/Throat: Mouth: Mucous membranes are moist. Cardiovascular: Rate and Rhythm: Normal rate. Pulmonary: Effort: Pulmonary effort is normal. Abdominal: General: Bowel sounds are normal. Palpations: Abdomen is soft. Musculoskeletal: General: Normal range of motion. Cervical back: Normal range of motion. Neurological: General: No focal deficit present. Mental Status: She is alert. Skin: General: Skin is warm and dry. Psychiatric: Mood and Affect: Mood normal. Vitals and nursing note reviewed. Exam conducted with a filling room operator present. Vitals: Estimated body mass index is 46.71 kg/m?? as calculated from the following: Height as of 02/25/25: 5' 2 . Weight as of this encounter: 255 lb 6.4 oz. BP: 114/74 Patient's last menstrual period was 09/08/2023 (approximate). ASSESSMENT & PLAN ICD-10-CM 1. Well woman exam with routine gynecological exam Z01.419 Pap Smear HPV DNA probe, amplified 2. Encounter to discuss test results Z71.2 Annual Exam: Patient presents today for an annual exam. Patient states she is doing well and has no complaints. Pap was obtained without difficulty. Orders Placed This Encounter Procedures HPV DNA probe, amplified Follow Up: Patient is to return in one year for annual unless needed otherwise. Documented by SUZETTE Jennings on behalf of: SUZETTE Jennings documented in this encounter Plan of Treatment Upcoming Encounters Date Type Department Care Team (Late st Contact Info) Description 04/05/2025 9:45 AM EDT Office Visit [facility] [address] [place] [address] Tez Zaragoza MD [address] [place] [address] Scheduled Orders Name Type Priority Associated Diagnoses Orde r Schedule Pap Smear Pathology and Cytology Routine Well woman exam with routine gynecological exam Ordered: 03/29/2025 HPV DNA probe, amplified Microbiology Routine Well woman exam with routine gynecological exam Ordered: 03/29/2025 documented as of this encounter Goals Goal Patient Goal Type Associated Problems Recent Progress Patient-Stated? Author Help patient manage antidepressant medication Care Plan Patient on antidepressant monitoring plan No Florecita Figueroa Baseline PHQ-9 Care Plan Baseline PHQ-9 No Florecita Figueroa documented as of this encounter Visit Diagnoses Diagnosis Well woman exam with routine gynecological exam Routine gynecological examination Encounter to discuss test results Other specified counseling documented in this encounter Additional Health Concerns Active Problems Noted Date Diagnosed Date Patient on antidepressant monitoring plan 2023 Baseline PHQ-9 10/22/2023 documented as of this encounter Care Teams Wage Analyst Relationship Specialty Start Date End Date Tez Zaragoza MD [address] [place] [phone] PCP - General Family Medicine 01/27/24 Suzan Carrington NP [address] [facility] [address] [place] [address] PCP - SYEDA AJ 12/08/23 documented as of this encounter
--- OUTSIDE RECORDS SUMMARY | 2025-03-29 22:32 | XMS_ITS | Encounter Summary ---
Author Organization [facility] Address [address] [place] [address] Care Team Providers Care Tumblers Supervisor Name Role Phone Tez Zaragoza MD Primary Care Provider [phone] Suzan Carrington CAMPUS ADMINISTRATOR Unavailable [phone] Reason for Visit * Reason Onset Date Comments Med Refill 03/21/2025 Encounter Details Date Type Department Care Team (Late st Contact Info) Description 03/21/2025 [facility] [address] [place] [phone] Tez Zaragoza MD [address] [place] [address] Ocular migraine Social History Tobacco Use Types [...] How often do you attend chur or faith services? Never 08/21/2023 Do you belong to any clubs o r organizations such as caodaism groups, unions, fraternal or athletic groups, or [...] medical care, and heating? Patient declined 08/21/2023 [facility] - Occupational Stress [...] place to sleep or slept in a long term (including now)? No 08/21/2023 Comments No Sex and Gender Information Value Date Recorded Sex Assigned at Female 02/25/2023 3:19 PM EDT Legal Sex Female 9:29 PM EDT Gender Identity Female 02/25/2023 3:19 PM EDT Sexual Orientation Pansexual 02/25/2023 3: 19 PM EDT documented as of this encounter Miscellaneous Notes * Telephone Encounter - SANA WALSH - 03/22/2025 8:56 AM EDT MEDICATION SENT TO [facility] documented in this encounter Plan of Treatment Upcoming Encounters Date Type Department Care Team (Late st Contact Info) Description 04/05/2025 9:45 AM EDT Office Visit [facility] [address] [place] [address] Tez Zaragoza MD [address] [place] [address] documented as of this encounter Goals Goal [...] documented as of this encounter Care Teams Tumblers Supervisor Relationship Specialty Start Date End Date Tez Zaragoza MD [address] [place] [address] PCP - General Family Medicine 01/27/24 Suzan Carrington NP [address] [place] [address] PCP - [facility] MEALS ON WHEELS DRIVER 12/08/23 documented as of this encounter
--- OUTSIDE RECORDS SUMMARY | 2025-03-29 22:32 | XMS_ITS | Encounter Summary ---
Author Organization [facility] Address [address] [facility] [address] Care Team Providers Care Visual Education Director Name Role Phone Tez Zaragoza MD Primary Care Provider [phone] Suzan Carrington HIM ASSISTANT Unavailable [phone] Encounter Details Date Type Department Care Team (Latest Contact Info) Description 03/28/2025 Travel Social History Tobacco Use Types Packs/Day [...] often do you attend chur ch or samaritan services? Never 08/21/2023 Do you belong to [...] medical care, and heating? Patient declined 08/21/2023 [facility]at ional [facility] - [...] to sleep or slept in a senior living (including now)? No 08/21/2023 Comments No Sex [...] EDT Office Visit [facility] [address] [place] [phone] Tez Zaragoza MD [address] [place] [address] documented as of this encounter Goals Goal [...] documented as of this encounter Care Teams Visual Education Director Relationship Specialty Start Date End Date Tez Zaragoza MD [address] [place] [phone] PCP - General Family Medicine 01/27/24 Suzan Carrington, HIM ASSISTANT [address] [place] [address] PCP - SYEDA Bolaños CALCULATION CLERK 12/08/23 documented as of this encounter
--- OUTSIDE RECORDS SUMMARY | 2025-03-29 22:32 | XMS_ITS | Encounter Summary ---
Author Organization [facility] Address [address] [place] [address] Care Team Providers Care Technology Solutions Architect Name Role Phone Tez Zaragoza MD Primary Care Provider [phone] Suzan Carrington PLANT FACILITIES TECHNICIAN Unavailable [phone] Encounter Details Date Type Department Care Team (Late st Contact Info) Description 07/06/2024 Orders Only [facility] [address] [place] [address] Bernabe Juárez PA [address] [place] [address] Social History Tobacco Use Types [...] How often do you attend chur or restoration services? Never 08/21/2023 Do you belong to any clubs o r organizations such as baptist groups, unions, fraternal or athletic groups, or [...] heating? Patient declined [facility] Answer Date [...] 04/05/2025 9:45 AM EDT [facility] Visit [facility] [address] [place] [address] Tez Zaragoza MD [address] [place] [address] documented as of this encounter Goals Goal [...] Laterality Modality Chest Radiographic Adriana ging Bernabe Juárez PA IMG XR PROCEDURES Final Result documented in this encounter Visit Diagnoses Not on filedocumented in this encounter Additional Health Concerns Active Problems Noted Date Diagnosed Date Patient on antidepressant monitoring plan 2023 Baseline PHQ-9 10/22/2023 documented as of this encounter Care Teams Technology Solutions Architect Relationship Specialty Start Date End Date Tez Zaragoza MD [address] [place] [address] PCP - General Family Medicine 01/27/24 Suzan Carrington, NIURKA [address] [facility] [address] [place] [address] PCP - [facility] AUTOMOTIVE BUYER 12/08/23 documented as of this encounter
--- OUTSIDE RECORDS SUMMARY | 2025-03-29 22:32 | XMS_ITS | Encounter Summary ---
Author Organization [facility] Address [address] [place] [address] Care Team Providers Care Full Stack Net Developer Name Role Phone Tez Zaragoza MD Primary Care Provider [phone] Tez Zaragoza MD Primary Care Provider [phone] Tez Zaragoza MD Primary Care Provider [phone] Suzan Carrington CABIN EQUIPMENT SUPERVISOR Unavailable [phone] Encounter Details Date Type Department Care Team (Late st Contact Info) Description 10/15/2023 Orders Only [facility] [address] [place] [address] Tez Zaragoza MD [address] [place] [address] Social History Tobacco Use Types Packs/Day Years [...] How often do you attend chur or samaritan services? Never 08/21/2023 Do you belong to any clubs o r organizations such as yazidi groups, unions, fraternal or athletic groups, or [...] medical care, and heating? Patient declined 08/21/2023 [facility] - Occupational Stress Questionnaire Answer Date [...] place to sleep or slept in a prison (including now)? No 08/21/2023 Comments No Sex [...] Office Visit [facility] [address] [place] [address] Tez Zaragoza MD [address] [place] [phone] documented as of this encounter Procedures Procedure [...] on filedocumented in this encounter Care Teams Full Stack Net Developer Relationship Specialty Start Date End Date Tez Zaragoza MD PCP - General Family Medicine 02/26/23 11/11/23 Tez Zaragoza MD PCP - General Family Medicine 11/12/23 01/26/24 Tez Zaragoza MD [address] [place] [address] PCP - General Family Medicine 01/27/24 Suzan Carrington, CABIN EQUIPMENT SUPERVISOR [address] [place] [address] PCP - SYEDA Bolaños MASTER MERCHANDISER 12/08/23 documented as of this encounter
--- OUTSIDE RECORDS SUMMARY | 2025-03-29 22:32 | XMS_ITS | Encounter Summary ---
Author Organization [facility] Address [address] [place] [address] Care Team Providers Care Evening Sitter Name Role Phone Tez Zaragoza MD Primary Care Provider [phone] Tez Zaragoza MD Primary Care Provider [phone] Tez Zaragoza MD Primary Care Provider [phone] Suzan Carrington BALL MAKER Unavailable Encounter Details Date Type Department Care Team (Late st Contact Info) Description 11/05/2023 Orders Only [facility] [address] [place] [address] Tez Zaragoza MD [address] [place] [address] Social History Tobacco Use Types Packs/Day Years [...] How often do you attend chur or sabianism services? Never 08/21/2023 Do you belong to any clubs o r organizations such as jainism groups, unions, fraternal or athletic groups, or [...] Patient declined 08/21/2023 [facility] - Occupational Stress Questionnaire Answer Date [...] place to sleep or slept in a mcc (including now)? No 08/21/2023 Comments No Sex [...] Office Visit [facility] [address] [place] [address] Tez Zaragoza MD [address] [place] [address] documented as of this encounter Goals Goal [...] documented as of this encounter Care Teams Evening Sitter Relationship Specialty Start Date End Date Tez Zaragoza MD PCP - General Family Medicine 02/26/23 11/11/23 Tez Zaragoza MD PCP - General Family Medicine 11/12/23 01/26/24 Tez Zaragoza MD [address] [place] [address] PCP - General Family Medicine 01/27/24 Suzan Carrington NP [address] [place], [place] [id number] PCP - [facility] REFRIGERATION MECHANIC 12/08/23 documented as of this encounter
--- OUTSIDE RECORDS SUMMARY | 2025-03-29 22:32 | XMS_ITS | Encounter Summary ---
Author Organization [facility] Address [address] [place] [address] Care Team Providers Care Anesthesia Assistant Name Role Phone Tez Zaragoza MD Primary Care Provider [phone] Suzan Carrington PAPER MACHINE SUPERVISOR Unavailable [phone] Encounter Details Date Type Department Care Team (Late st Contact Info) Description 03/28/2025 [facility] [address] [place] [address] Tez Zaragoza MD [address] [place] [address] Social History Tobacco Use Types Packs/Day Years [...] often do you attend chur ch or shinto services? Never 08/21/2023 Do you belong to any clubs o r organizations such as orthodox groups, unions, fraternal or athletic groups, or [...] care, and heating? Patient declined 08/21/2023 [facility] of Occupat ional Health - Occupational Stress [...] place to sleep or slept in a detention (including now)? No 08/21/2023 Comments No Sex and Gender Information Value Date Recorded Sex Assigned at Female 02/25/2023 3:19 PM EDT Legal Sex Female 9:29 PM EDT Gender Identity Female 02/25/2023 3:19 PM EDT Sexual Orientation Pansexual 02/25/2023 3: 19 PM EDT documented as of this encounter Miscellaneous Notes * Telephone Encounter - SANA WALSH - 03/28/2025 3:30 PM EDT Patient has follow up scheduled to see how she is doing on 2 new meds, but both meds were denied byinsurance. She is inquiring if she should come in for follow up, or if you wanted to try a different medication and follow up after. clm documented in this encounter Plan of Treatment Upcoming Encounters Date Type Department Care Team (Late st Contact Info) Description 04/05/2025 9:45 AM EDT Office Visit [facility] [place] [address] Tez Zaragoza MD [address] [place] [address] documented as of this encounter Goals Goal [...] documented as of this encounter Care Teams Anesthesia Assistant Relationship Specialty Start Date End Date Tez Zaragoza MD [address] [place] [address] PCP - General Family Medicine 01/27/24 Suzan Carrington, PAPER MACHINE SUPERVISOR [address] [facility] [address] [place] [address] PCP - [facility] RANGE AIDE 12/08/23 documented as of this encounter
--- OUTSIDE RECORDS SUMMARY | 2025-03-29 22:32 | XMS_ITS | Clinical Summary ---
Author Organization [facility] Address [address] [place] [address] Care Team Providers Care Optometric Technologist Name Role Phone Tez Zaragoza MD Primary Care Provider [phone] Suzan Carrington DIVISION MANAGER Unavailable [phone] Allergies Active Allergy Reactions Criticality Noted Date Comments Hydrocodone-Acetaminophen GI intolerance 2022 Iodine Hives,Itching,Rash,Unknown Low 8 Wound Dressing Adhesive Hives,Itching,Rash Low 06/08 Medications potassium chloride CR (K-Tab) 20 MEQ ER tabletIndications:E dede of both legs Take 1 tablet (20 mEq) by mouth Daily as needed (Edema) 90 tablet 3 10/22/19 24 Active levothyroxine (Synthroid, Levoxyl) 100 MCG tabletIndications:H istory of hyperthyroidism TAKE 1 TABLET BY MOUTH EVERY MORNING ON AN EMPTY STOMACH 30 tablet 11 07/08/20 24 Active cholecalciferol (Vitamin D-3) 50 MCG (1999) tabletIndications:V itamin D deficiency, unspecified Take 1 tablet (50 mcg) by mouth Daily 90 tablet 3 07/28/20 24 Active ondansetron (Zofran) 4 MG/5ML solution Take by mouth 1 (one) time Active rizatriptan MEDICAL RECEPTIONIST ASSISTANT (Maxalt-MEDICAL RECEPTIONIST ASSISTANT) 10 MG disintegrating tabletIndications:O cular migraine Take 1 tablet (10 mg) by mouth 1 (one) time if needed for migraine May repeat in 2 hours if unresolved. Do not exceed 30 mg in 24 hours. 9 tablet 5 11/02/19 25 Active buPROPion XL (Wellbutrin XL) 300 MG 24 hr tabletIndications:M ild recurrent major depression Take 1 tablet (300 mg) by mouth Daily 90 tablet 3 12/29/19 25 Active furosemide (Lasix) 40 MG tabletIndications:B ilateral leg edema Take 1 tablet (40 mg) by mouth Daily as needed (as needed) 90 tablet 3 12/29/19 25 Active hydrOXYzine HCl (Atarax) 50 MG tabletIndications:G AD (generalized anxiety disorder) Take 1 tablet (50 mg) by mouth 4 (four) times a day as needed for anxiety 60 tablet 3 12/29/19 25 Active pantoprazole (ProtoNix) 40 MG EC tabletIndications:G anika-esophageal reflux disease without esophagitis Take 1 tablet (40 mg) by mouth Daily 90 tablet 3 12/29/19 25 Active buPROPion XL (Wellbutrin XL) 150 MG 24 hr tabletIndications:G AD (generalized anxiety disorder) Take 1 tablet (150 mg) by mouth Daily 30 tablet 5 01/19/20 25 Active Atogepant (Qulipta) 60 MG tabletIndications:M igraine without aura and without status migrainosus, not intractable Take 60 mg by mouth Daily 30 tablet 2 02/26/20 25 Active Tirzepatide 2.5 MG/0.5ML solution auto-injectorIndica tions:Class 3 severe obesity due to excess calories with serious comorbidity and body mass index (BMI) of 45.0 to 49.9 in adult ([facility]),Prediabet es Inject 2.5 mg under the skin 1 (one) time per week 2 mL 02/26/20 25 Active naratriptan (Amerge) 1 MG tabletIndications:M igraine without aura and without status migrainosus, not intractable Take 1 tablet (1 mg) by mouth 1 (one) time if needed for migraine May repeat in 4 hours if unresolved. Do not exceed 5 mg in 24 hours. 9 tablet 02/26/20 25 Active butalbital-acetamin ophen-caffeine 50-325-40 MG tabletIndications:M igraine without aura and without status migrainosus, not intractable Take 1 tablet by mouth 4 (four) times a day as needed for headaches 60 tablet 2 02/26/20 25 Active topiramate (Topamax) 50 MG tabletIndications:O cular migraine Take 50 mg by mouth in the morning and 50 mg before bedtime. 60 tablet 5 03/22/20 25 Active topiramate (Topamax) 50 MG tabletIndications:O cular migraine Take 50 mg by mouth in the morning and 50 mg before bedtime. 60 tablet 5 08/30/20 24 025 Discontin ued(Reord er) topiramate (Topamax) 50 MG tabletIndications:O cular migraine Take 50 mg by mouth in the morning and 50 mg before bedtime. 60 tablet 5 03/01/20 25 025 Discontin ued(Reord er) Active Problems Problem Noted Date Diagnosed Date [...] Nerve entrapment syndrome of right foot 03/21/20 23 Neuritis 03/21/2023 Migraine without aura and wi [...] Encounters Date Type Department Care Team Description 03/29/2025 1:00 PM EDT Office Visit [facility] [address] [place] [address] Zoya Peter PA Well woman exam with routine gynecological exam; Encounter to discuss test results 03/29/2025 Bamboo flowsheet [facility] [address] [place] [address] Zoya Peter PA 03/28/2025 Telephone [facility] [address] [place] [address] Tez Zaragoza MD 03/28/2025 Travel 03/22/2025 Results Follow-Up [facility] [address] [place] [address] Tala Ribeiro, MANAGER ADMINISTRATIVE 03/21/2025 Refill [facility] [address] [place] [address] Tez Zaragoza MD Ocular migraine 03/16/2025 8:30 AM EDT Ancillary Procedure [facility] [address] [place] [address] Left ovarian cyst 03/01/2025 Results Follow-Up [facility] [address] [place] [address] Tez Zaragoza MD 02/28/2025 Clinisync Result Encounter [facility] External Department Unsolicited Tez Zaragoza MD 02/28/2025 Refill [facility] [address] [place] [address] Tez Zargaoza MD Ocular migraine 02/25/2025 9:15 AM EDT Office Visit [facility] [address] [place] [address] Tez Zaragoza MD Migraine without aura and without status migrainosus, not intractable (Primary Dx); Hypothyroidism, unspecified type ; Class 3 severe obesity due to excess calories with serious comorbidity and body mass index (BMI) of 45.0 to 49.9 in adult ([facility]); Annual physical exam; Prediabetes 02/24/2025 1:30 PM EDT Office Visit [facility] [address] [place] [address] Zoya Peter PA Postoperative follow-up 02/24/2025 Bamboo flowsheet [facility] [address] [place] [address] Zoya Peter PA 02/24/2025 Travel 02/11/2025 Clinisync Result Encounter [facility] External Department Unsolicited Provider, Generic External Data 02/10/2025 Telephone [facility] [address] [place] [phone] Tez Zaragoza MD 01/26/2025 Clinisync Result Encounter [facility] External Department Unsolicited Provider, Generic External Data 01/26/2025 Clinisync Result Encounter [facility] External Department Unsolicited Provider, Generic External Data 01/20/2025 Telephone [facility] [address] [place] [phone] Lis Castro, 01/18/2025 Refill [facility] [address] [place] [address] Tez Zaragoza MD MARGARETH (generalized anxiety disorder) 01/17/2025 1:00 PM EDT Ancillary Procedure [facility] [address] [place] [address] Pelvic pain in female 01/13/2025 Abstract [facility] [address] [place] [address] [phone] Marcela Reyna LPN 01/12/2025 1:30 PM EDT Consult [facility] [address] [place] [phone] Lis Castro DO Pre-op examination; Pelvic pain in female; H/O: hysterectomy 01/12/2025 Travel 01/03/2025 10:50 AM EDT Office Visit [facility] [address] [place] [address] [phone] Lis Castro DO Pelvic pain in female 01/03/2025 Bamboo flowsheet [facility] [address] [place] [address] Lis Castro DO 01/03/2025 Travel from Last 3 Months Family History Medical History Relation Name Comments Depression Brother major Hypertension Brother Mental illness Brother Alcohol abuse Father Tim Tiffany Arthritis Father Tim Tiffany Bipolar disorder Father Tim Allen Depression Father Tim Allen major Diabetes Father Tim Allen Heart disease Father Tim Moonwideja Hyperlipidemia Father Tim Etzwiler Hypertension Father Tim Etzwiler Stroke Father Tim Etzwiler Ulcers Father Tim Allen peptic ulcer Vit B12 deficiency anemia Father Tim Moon wilnghia blood clots Father Tim Allen Alzheimer's disease Maternal Grandfather Artemio Romi Arthritis Maternal Grandfather Artemio Romi Hyperlipidemia Maternal Grandfather Artemio Romi Hypertension Maternal Grandfather Artemio Romi Stroke Maternal Grandfather Artemio Romi Cancer Maternal Grandmother Mirta Romi Depression Maternal Grandmother Mirta Romi major Hyperlipidemia Maternal Grandmother Mirta Romi Hypertension Maternal Grandmother Mirta Romi Migraines Maternal Grandmother Mirta Ormi headach es Arthritis Mother Nereida Marsh Cervical cancer Mother Nereida Marsh Heart failure Mother Nereida Marsh Hyperlipidemia Mother Nereida Marsh Hypertension Mother Nereida Marsh Migraines Mother Nereida Marsh headache Stroke Mother Nereida Marsh varicose veins Mother Nereida Marsh Cervical cancer Paternal Grandfather Ashlie Etzwiler Diabetes Paternal Grandfather Ashlie Etzwiler Hyperlipidemia Paternal Grandfather Ashlie Etzwiler Hypertension Paternal Grandfather Ashlie Etzwideja Mental illness Paternal Grandfather Ashlie Etzwiler Ulcers Paternal Grandfather Ashlie Gallegosdeja pept ic ulcer Vit b12 deficiency anemia Paternal Grandfather Ashlie Etzwideja COPD Paternal Grandmother Relation Name Status Comments Brother 1 brother Father Tim Allen Alive Maternal Grandfather Artemio Romi Maternal Grandmother Mirta Romi Mother Nereida Marsh Alive Paternal Grandfather Ashlie Etzwiler Paternal Grandmother Social History Tobacco Use Types [...] week 08/21/2023 How often do you attend [facility] or taoism services? Never 08/21/2023 Do you belong to any clubs o r organizations such as holiness groups, unions, fraternal or athletic groups, or [...] medical care, and heating? Patient declined 08/21/2023 [facility] - [...] Pressure 114/74 03/29/2025 1:08 PM EDT Pulse 107 02/25/2025 9:18 AM EDT Temperature 36.4 C (97.5 F) 02/25/2025 9:18 AM EDT Respiratory Rate 20 02/25/2025 9:18 AM EDT Oxygen Saturation 97% 02/25/2025 9:18 AM EDT Inhaled Oxygen Concentration - - Weight 116 kg (255 lb 6.4 oz) 03/29/2025 1:08 PM EDT Height 157.5 cm (5' 2 ) 02/25/2025 9:18 AM EDT Body Mass Index 46.71 02/25/2025 9:18 AM EDT Plan of Treatment Upcoming Encounters Date Type Department Care Team (Late st Contact Info) Description 04/05/2025 9:45 AM EDT Office Visit [facility] [address] [place] [address] Tez Zaragoza MD [address] [place] [address] Health Maintenance Due Date Last Done Comments Influenza Vaccine (#1) 2025 Cervical Cancer Screening Discontinued Pap Smear Discontinued 12/31/2022, 06/13/2021 HPV/Cotest Discontinued Goals Goal Patient Goal Type Associated Problems Recent Progress Patient-Stated? Author Help patient manage antidepressant medication Care Plan Patient on antidepressant monitoring plan No Florecita Figueroa Baseline PHQ-9 Care Plan Baseline PHQ-9 No Florecita Figueroa Procedures Procedure Name Priority Date/Time Associated Diagnosis Comments US PELVIC COMPLETE W/ TV Routine 03/16/2025 8:55 AM EDT Left ovarian cyst ALL THYROXINE (T4) FREE Routine 02/28/2025 11:24 AM EDT MLR HEMOGLOBIN A1C Routine 02/28/2025 11 :24 AM EDT ALL THYROID STIM HORMONE Routine 02/28/2025 11:24 AM EDT ALL LIPID PROFILE (FASTING) Routine 02/28/2025 11:24 AM EDT ALL BASIC METABOLIC PANEL Routine 02/28/2025 11:24 AM EDT HMHP LIVER PANEL Routine 02/28/2025 11:2 4 AM EDT ALL CBC WITH AUTO DIFF Routine 02/28/2025 11:24 AM EDT ALL CBC WITH AUTO DIFF Routine 02/11/2025 [...] Recently Relevant to Health Maintenance Results * US Pelvis w/ TV (03/16/2025 8:55 AM EDT) Only the most recent of2 resultswithin the time period is included. Anatomical Region Laterality Modality Pelvis Ultrasound 03/17/2025 [...] BY: ELECTRONICALLY SIGNED BY: Papo Nick MD Lis Castro DO [facility] US PROCEDURES Final Result * MLR HEMOGLOBIN A1C (02/28/2025 11:24 AM EDT) GLYCOHEMOGLOBIN A1C 5.1 4.5 - 6.2 % TB Comment: ADA RECOMMENDED LIMIT 4.0 - 6.0 ADA THERAPEUTIC TARGET < 7.0 ACTION SUGGESTED > 7.0 ESTIMATED AVERAGE GLUCOSE 100 mg/dL TBH 02/28/2025 11:2 4 AM EDT 02/28/2025 11:45 AM EDT Narrative CLINISYNC - 02/28/2025 12:35 PM EDT Tez Zaragoza MD CLINISYMARIA C Final Result [facility] * (ABNORMAL) [facility] LIVER PANEL (02/28/2025 11:24 AM EDT) BILIRUBIN TOTAL 0.3 0.2 - 1.0 mg/dL TBH BILIRUBIN DIRECT 0.1 0.0 - 0.2 mg/dL TB ASPARTATE AMINO TRANSFERASE 11(L) 15 - 37 U/L TBH ALANINE AMINOTRANSFERASE 17 14 - 59 U/L TBH ALKALINE PHOSPHATASE 83 46 - 116 U/L TB TOTAL PROTEIN 6.2(L) 6.4 - 8.2 g/dL TBH ALBUMIN LEVEL 2.8(L) 3.4 - 5.0 g/dL TBH GLOBULIN 3.4 g/dL TBH ALBUMIN GLOBULIN RATIO 0.8 TBH 02/28/2025 11:2 4 AM EDT 02/28/2025 11:45 AM EDT Narrative CLINISYNC - 02/28/2025 12:27 PM EDT Tez ZEEISYMARIA C Final Result CLIN[facility]YMO TB * ALL THYROXINE (T4) FREE (02/28/2025 11:24 AM EDT) FREE T4 0.94 0.76 - 1.46 ng/dL TB 02/28/2025 11:2 4 AM EDT 02/28/2025 11:45 AM EDT Narrative CLINISYNC - 02/28/2025 12:52 PM EDT Tez ZEEISYMARIA C Final Result Performing Organization Address [facility] de Phone Number CLINISYMO TB * ALL THYROID STIM HORMONE (02/28/2025 11:24 AM EDT) THYROID STIMULATING HORMONE 2.147 0.358 - 3.740 uIU/mL TB 02/28/2025 11:2 4 AM EDT 02/28/2025 11:45 AM EDT Narrative CLINISYNC - 02/28/2025 12:27 PM EDT Tez Zaragoza MD CLINISYMARIA C Final Result Performing Organization Address [facility] Co de Phone Number CLINISYMO TB * (ABNORMAL) ALL LIPID PROFILE (FASTING) (02/28/2025 11:24 AM EDT) TRIGLYCERIDES 83 <=150 mg/dL TBH CHOLESTEROL 162 <=200 mg/dL TB HDL CHOLESTEROL 66(H) 40 - 60 mg/dL TBH Comment: > or =60 mg/dl - LOW CARDIOVASCULAR RISK <40 mg/dl - HIGH CARDIOVASCULAR RISK LDL CHOLESTEROL CALCULATED 80.0 mg/dL TB Comment: <100 mg/dl OPTIMAL 100-129 mg/dl NEAR OR ABOVE OPTIMAL 130-159 mg/dl BORDERLINE HIGH 160-189 mg/dl HIGH >190 mg/dl VERY HIGH VLDL CHOLESTEROL 16.6 mg/dL TB CHOL HDL RATIO 2.5 TBH Comment: 3.3 - 4.4 LOW RISK 4.4 - 7.1 AVERAGE RISK 7.1 - 11.0 MODERATE RISK >11.0 HIGH RISK 02/28/2025 11:2 4 AM EDT 02/28/2025 11:45 AM EDT Narrative KYLENC - 02/28/2025 12:27 PM EDT us Tez Zaragoza MD CLINISYNC Final Result [facility] * (ABNORMAL) ALL CBC WITH AUTO DIFF (02/28/2025 11:24 AM EDT) Only the most recent of2 resultswithin the time period is included. TBH WBC 5.4 4.0 - 11.0 10 3/uL TBH TBH RBC 3.68(L) 4.20 - 5.40 10 6/uL TBH TBH HGB 11.9(L) 12.0 - 16.0 g/dL TBH TBH HCT 36.7 36.0 - 48.0 % TBH TBH MCV 99.7(H) 81.0 - 99.0 fL TBH TBH MCH 32.3 26.7 - 34.0 pg TBH TBH MCHC 32.4 29.9 - 35.2 g/dL TBH TBH RDW 12.1 11.0 - 15.0 % TBH TBH PLT 215 150 - 450 10 3/uL TBH TBH MPV 11.3 9.5 - 13.5 fL TBH NEUTROPHILS PERCENT AUTO 60.2 43.0 - 75.0 % TBH LYMPHOCYTES PERCENT AUTO 29.5 20.5 - 60.0 % TBH MONOCYTES PERCENT AUTO 8.4 1.7 - 12.0 % TBH TBH EO % 1.1 0.9 - 7.0 % TBH BASOPHILS PERCENT AUTO 0.6 0.2 - 2.0 % TBH IMMATURE GRANULOCYTES PCT AUTO 0.2 0.0 - 0.5 % TBH NEUTROPHILS ABSOLUTE AUTO 3.2 1.4 - 6.5 10 3/uL TBH LYMPHOCYTES ABSOLUTE AUTO 1.6 1.2 - 3.8 10 3/uL TBH MONOCYTES ABSOLUTE AUTO 0.5 0.3 - 0.8 10 3/uL TBH TBH EO # 0.1 0.0 - 0.7 10 3/uL TBH BASOPHILS ABSOLUTE AUTO 0.0 0.0 - 0.1 10 3/uL TBH IMMATURE GRANULOCYTES ABS AUTO 0.01 0.00 - 0.03 10 3/uL TBH 02/28/2025 11:2 4 AM EDT 02/28/2025 11:45 AM EDT Narrative CLINISYNC - 02/28/2025 12:24 PM EDT us Tez Zaragoza MD CLINISYNC Final Result CLINISYMO TB * ALL BASIC METABOLIC PANEL (02/28/2025 11:24 AM EDT) Only the most recent of2 resultswithin the time period is included. SODIUM 140 136 - 145 mmol/L TBH POTASSIUM 3.9 3.5 - 5.1 mmol/L TBH CHLORIDE 107 98 - 107 mmol/L TBH CARBON DIOXIDE 23.1 21.0 - 32.0 mmol/L TBH ANION GAP 13.8 TBH GLUCOSE 98 74 - 106 mg/dL TBH BLOOD UREA NITROGEN 16.0 7.0 - 18.0 mg/dL TBH CREATININE 0.95 0.55 - 1.02 mg/dL TBH TBH EGFR-AF [place] >60 >=60 mL/min/1.7 3m 2 TBH TBH EGFR-NON AF [place] >60 >=60 mL/min/1.7 3m 2 TBH BUN CREATININE RATIO 16.8 TBH CALCIUM 8.7 8.5 - 10.1 mg/dL TBH 02/28/2025 11:2 4 AM EDT 02/28/2025 11:45 AM EDT Narrative CLINISYNC - 02/28/2025 12:27 PM EDT us Tez Zaragoza MD CLINISYNC Final [facility] * XR CHEST 2V (01/26/2025 11:50 AM EDT) Anatomical Region Laterality Modality Other 01/26/2025 11:5 0 AM EDT Narrative 01/26/2025 11:52 AM EDT The [place] [id number] XRay Report Signed Patient: AZUL SARKAR MR#: [id number] : 1990 Acct:[id number] Age/Sex: 34 / F ADM Date: 01/26/25 Loc: PST Attending Dr: Lis Castro D.O. Ordering Physician: Lis Castro D.O. Date of Service: 01/26/25 Procedure(s): XR chest 2V Accession Number(s): [id number] cc: Lis Castro D.O.; Tez Zaragoza M.D. The [place] [address] Patient Name: AZUL SARKAR MRN: [id number] date: 1990 Sex: F [facility] Current Patient Location: [facility] Accession/Order Number: [id number] Exam Date: 01/26/2025 11:49 Report Date: 01/26/2025 [...] Aquino M.D. 01/26/2025 11:50 AM Dictation Location: [place] [address] Electronically authenticated by: [id number] Y Date: 01/26/2025 11:50 Dictated By: Annmarie Aquino M.D. Signed By: 01/26/25 1152 DD/ 1150 TD/TT: Bee Keeper: Procedure Note Radiology, Radiologist, - 01/26/2025 The [place] [id number] XRay Report Signed Patient: AZUL SARKAR MMR#: [id number] : 1990Acct:[id number] Age/Sex: 34 / FADM Date: 01/26/25 Loc: [facility] Attending Dr: Lis Castro D.O. Ordering Physician: Lis Castro D.O. Date of Service: 01/26/25 Procedure(s): XR chest 2V Accession Number(s): [id number] cc: Lis Castro D.O.; Tez Zaragoza M.D. The [place] [id number] Patient Name: AZUL SARKAR MRN: [id number] date: 1990 Sex: F Assigned Patient Location: [facility] Current Patient Location: [facility] Accession/Order Number: [id number] Exam Date: 01/26/2025 11:49 Report Date: 01/26/2025 [...] Aquino M.D. 01/26/2025 11:50 AM Dictation Location: [place] [address] Electronically authenticated by: [id number] Y Date: 1:50 Dictated By: Annmarie Aquino M.D. Signed By:01/26/25 1152 DD/ 115 TD/TT: Bee Keeper: Generic External Data Provider CLIN[facility]YNC IMAGING Final Result * ECG 12-LEAD (01/26/2025 11:30 AM EDT) Anatomical Region Laterality Modality Other 01/26/2025 11:3 0 AM EDT Narrative 01/26/2025 9:45 [place] [address] Electrocardiograph Report Signed Patient: AZUL SARKAR MR#: [id number] : 1990 Acct:[id number] Age/Sex: 34 / F ADM Date: 01/26/25 Loc: [facility] Attending Dr: Lis Castro D.O. Ordering Physician: Lis Castro D.O. Date of Service: 01/26/25 Procedure(s): ECG 12 lead Accession Number(s): [id number] cc: [facility] Test Date: 2025-01-26 Pat Name: AZUL SARKAR Department: Room: - Gender: Female Catering Administrative Assistant: : 1990 Requested By: LIS CASTRO Order Number: [id number] Reading MD: ASHLIE AMOS M.D. Measurements Intervals [place] Rate: 74 P: 49 NC: 122 QRS: -1 QRSD: 96 T: 8 QT: 381 QTc: 425 Interpretive Statements SINUS RHYTHM WITH SINUS ARRHYTHMIA Normal ECG Compared to ECG 03/04/2023 11:51:08 No significant changes Electronically Signed On 01-26-2025 21:45:21 EDT by ASHLIE AMOS M.D. Dictated By: ASHLIE AMOS Signed By: 01/26/25 2145 DD/ 1130 TD/TT: Bee Keeper: Procedure Note Radiology, Radiologist, - 01/26/[address] [address] Electrocardiograph Report Signed Patient: AZUL SARKAR MMR#: [id number] : 1990Acct:[id number] Age/Sex: 34 / FADM Date: 01/26/25 Loc: PST Attending Dr: Lis Castro D.O. Ordering Physician: Lis Castro D.O. Date of Service: 01/26/25 Procedure(s): ECG 12 lead Accession Number(s): [id number] cc: [facility] Test Date: 2025-01-26 Pat Name: AZUL MORRISONTIFFANY Department: Room: - Gender: Female Catering Administrative Assistant: : 1990 Requested By: LIS CASTRO Order Number: [id number] Reading MD: ASHLIE AMOS M.D. Measurements Intervals [place] Rate: 74 P: 49 NC: 122 QRS: -1 QRSD: 96 T: 8 QT: 381 QTc: 425 Interpretive Statements SINUS RHYTHM WITH SINUS ARRHYTHMIA Normal ECG Compared to ECG 03/04/2023 11:51:08 No significant changes Electronically Signed On 01-26-2025 21:45:21 EDT by ASHLIE AMOS M.D. Dictated By: ASHLIE AMOS Signed By:01/26/25 2144 DD/ 1130 TD/TT: Bee Keeper: [facility] External Data Provider [facility] IMAGING Final Result * POCT urinalysis dipstick manually resulted (01/12/2025 1:53 PM EDT) Only the most recent of2 resultswithin the time period is included. Color, UA Yellow Clarity, UA Clear Glucose, UA Negative Negative - 1999(110) ++++ mg/dL Bilirubin, UA Negative Negative - 4(70) +++ mg/dL Ketones, UA Negative Negative - 160(16) ++++ mg/dL Spec Grav, UA 1.020 1 - 1.03 Blood, UA Negative Negative - 50 Darren/mcL pH, UA 7.5 5 - 9 Protein, UA Negative Negative - 1999(20) ++++ mg/dL Urobilinogen, UA 0.2 0.2 - [...] plan 2023 Baseline PHQ-9 10/22/2023 Insurance [employer] [place] Care Teams Optometric Technologist Relationship Specialty Start Date End Date Tez Zaragoza MD [address] [place] [address] PCP - General Family Medicine 01/27/24 Suzan Carrington NP [address] [facility] [address] [place] [address] PCP - [facility] Mami MANAGER HOME 12/08/23
--- OUTSIDE RECORDS SUMMARY | 2025-03-29 22:32 | XMS_ITS | Encounter Summary ---
Author Organization [facility] Address [address] [place] [address] Care Team Providers Care Supervising Nurse Name Role Phone Tez Zaragoza MD Primary Care Provider [phone] Suzan Carrington LITIGATION ATTORNEY ASSOCIATE Unavailable [phone] Encounter Details Date Type Department Care Team (Late st Contact Info) Description 03/29/2025 BamShirley Mae'so flowsheet [facility] [address] [place] [address] Zoya Peter PA [address] [place], [facility] Social History Tobacco Use Types Packs/Day Years [...] How often do you attend chur or baptism services? Never 08/21/2023 Do you belong to any clubs o r organizations such as mandaen groups, unions, fraternal or athletic groups, or [...] medical care, and heating? Patient declined 08/21/2023 [facility] - Occupational Stress [...] 04/05/2025 9:45 AM EDT Office Visit [facility] [address] [place] [address] Tez Zaragoza MD [address] [place] [address] documented as of this encounter Goals Goal [...] documented as of this encounter Care Teams Supervising Nurse Relationship Specialty Start Date End Date Tez Zaragoza MD [address] [place] [address] PCP - General Family Medicine 01/27/24 Suzan Carrington, LITIGATION ATTORNEY ASSOCIATE [address] [facility] [address] [place] [address] PCP - [facility] Mami REGISTERED HEALTH NURSE 12/08/23 documented as of this encounter
--- OUTSIDE RECORDS SUMMARY | 2025-03-29 22:32 | XMS_ITS | Encounter Summary ---
Author Organization [facility] Address [address] [place] [address] Care Team Providers Care Rail Splitter Name Role Phone Tez Zaragoza MD Primary Care Provider [phone] Suzan Carrington BANKRUPTCY PARALEGAL Unavailable [phone] Encounter Details Date Type Department Care Team (Late st Contact Info) Description 03/22/2025 Results Follow-Up [facility] [address] [address] Tala Ribeiro LPN [address] [place] [address] Social History Tobacco Use Types Packs/Day Years [...] How often do you attend chur or confucianism services? Never 08/21/2023 Do you belong to [...] care, and heating? Patient declined 08/21/2023 [facility] - [...] as of this encounter Miscellaneous Notes * Result Encounter Note - Tala Ribeiro LPN - 03/22/2025 10:49 AM EDT Pt returned call and we went over results. PVU * Result Encounter Note - Tala Ribeiro LPN - 03/22/2025 10:44 AM EDT Attempted to call pt but she did not answer. Left detailed voicemail for pt to call office back documented in this encounter Plan of Treatment Upcoming Encounters Date Type Department Care Team (Late st Contact Info) Description 04/05/2025 9:45 AM EDT Office Visit [facility] [address] [place] [address] Tez Zaragoza MD [address] [place] [address] documented as of this encounter Goals Goal [...] documented as of this encounter Care Teams Rail Splitter Relationship Specialty Start Date End Date Tez Zaragoza MD [address] [place] [address] PCP - General Family Medicine 01/27/24 Suzan Carrington NP [address] [facility] [address] [place] [address] PCP - SYEDA AJ 12/08/23 documented as of this encounter
--- OUTSIDE RECORDS SUMMARY | 2025-03-29 22:32 | XMS_ITS | Encounter Summary ---
Author Organization [facility] Address [address] [place] [address] Care Team Providers Care Solar/Renewable Energy Sales Name Role Phone Tez Zaragoza MD Primary Care Provider [phone] Suzan Carrington DYNAMOMETER MECHANIC Unavailable Encounter Details Date Type Department Care Team (Late st Contact Info) Description 01/13/2025 Abstract [facility] [address] [facility] [place] [id number] Marcela Reyna LPN Social History Tobacco Use [...] often do you attend chur ch or congregation services? Never 08/21/2023 Do you belong to any clubs o r organizations such as scientology groups, unions, fraternal or athletic groups, or [...] medical care, and heating? Patient declined 08/21/2023 [facility] - Occupational Stress Questionnaire Answer [...] place to sleep or slept in a nursing home (including now)? No 08/21/2023 Comments No [...] 04/05/2025 9:45 AM EDT [facility] [address] [place] [address] Tez Zaragoza MD [address] [place] [address] documented as of this encounter Goals Goal [...] documented as of this encounter Care Teams Solar/Renewable Energy Sales Relationship Specialty Start Date End Date Tez Zaragoza MD [address] [place] [place] [address] PCP - General Family Medicine 01/27/24 Suzan Carrington NP [address] [facility] [address] [place] [address] PCP - [facility] ASSEMBLY MEMBER 12/08/23 documented as of this encounter
--- OUTSIDE RECORDS SUMMARY | 2025-03-29 22:33 | XMS_ITS | Encounter Summary ---
Author Organization [facility] Address [address] [place] [address] Care Team Providers Care Director Reactor Projects Name Role Phone Tez Zaragoza MD Primary Care Provider [phone] LIGHT REPAIRER HELPER Unavailable Encounter Details Date Type Department Care Team (Late st Contact Info) Description 03/01/2025 [facility] [address] [address] Tez Zaragoza MD [address] [place] [address] Social History Tobacco Use Types Packs/Day Years [...] often do you attend chur ch or caodaism services? Never 08/21/2023 Do you belong to any clubs o r organizations such as confucianist groups, unions, fraternal or athletic groups, or [...] medical care, and heating? Patient declined 08/21/2023 [facility] - Occupational Stress [...] 04/05/2025 9:45 AM EDT [facility] [address] [place] [address] Tez Zaragoza MD [address] [place] [address] documented as of this encounter Goals Goal [...] documented as of this encounter Care Teams Director Reactor Projects Relationship Specialty Start Date End Date Tez Zaragoza MD [address] [place] [address] PCP - General Family Medicine 01/27/24 Suzan Carrington, STREET LIGHT REPAIRER HELPER [address] [facility] [address] [place] [address] PCP - [facility] DIRECTOR MEDICAL SCIENCE 12/08/23 documented as of this encounter
--- OUTSIDE RECORDS SUMMARY | 2025-03-29 22:33 | XMS_ITS | Encounter Summary ---
Author Organization [facility] Address [address] [place] [address] Care Team Providers Care Director Corporate Security Name Role Phone Tez Zaragoza MD Primary Care Provider [phone] Tez Zaragoza MD Primary Care Provider Tez Zaragoza MD Primary Care Provider Suzan Carrington FURNITURE PACKER Unavailable Encounter Details Date Type Department Care Team (Late st Contact Info) Description 03/13/2023 Abstract [facility] [address] [place] [address] Chay Castro, DO [address] [place], [place] [id number] Social History Tobacco Use Types Packs/Day Years [...] Recorded In the last 10 days, have yo u been in contact with someone who was confirmed or suspected to have Coronavirus/COVID-19? No / Unsure 02/25/2023 4:19 PM EDT documented as of this encounter Plan of Treatment Upcoming Encounters Date Type Department Care Team (Late st Contact Info) Description 04/05/2025 9:45 AM EDT Office Visit [facility] [address] [place] [address] Tez Zaragoza MD [address] [place] [address] documented as of this encounter Visit Diagnoses Not on filedocumented in this encounter Care Teams Director Corporate Security Relationship Specialty Start Date End Date Tez Zaragoza MD PCP - General Family Medicine 02/26/23 11/11/23 Tez Zaragoza MD PCP - General Family Medicine 11/12/23 01/26/24 Tez Zaragoza MD [address] [place] [address] PCP - General Family Medicine 01/27/24 Suzan Carrington, NIURKA [address] [place] [address] PCP - [facility] SUPERVISOR MOLD CONSTRUCTION 12/08/23 documented as of this encounter
--- OUTSIDE RECORDS SUMMARY | 2025-03-29 22:33 | XMS_ITS | Encounter Summary ---
Author Organization [facility] Address [address] [place] [address] Care Team Providers Care Racker Octave Board Name Role Phone Tez Zaragoza MD Primary Care Provider [phone] Tez Zaragoza MD Primary Care Provider Tez Zaragoza MD Primary Care Provider [phone] Suzan Carrington TEMPERING OVEN OPERATOR Unavailable Encounter Details Date Type Department Care Team (Late st Contact Info) Description 03/21/2023 Abstract [facility] [address] [place] [address] Chay Castro, DO [address] [place], [place] [id number] Social History Tobacco Use Types Packs/Day Years [...] Office Visit [facility] [address] [place] [phone] Tez Zaragoza MD [address] [place] [address] documented as of this encounter Visit Diagnoses Not on filedocumented in this encounter Care Teams Racker Octave Board Relationship Specialty Start Date End Date Tez Zaragoza MD PCP - General Family Medicine 02/26/23 11/11/23 Tez Zaragoza MD PCP - General Family Medicine 11/12/23 01/26/24 Tez Zaragoza MD [address] [place] [address] PCP - General Family Medicine 01/27/24 Suzan Carrington NP [address] [place] [address] PCP - [facility] INSURANCE APPRAISER 12/08/23 documented as of this encounter
--- OUTSIDE RECORDS SUMMARY | 2025-03-29 22:33 | XMS_ITS | Encounter Summary ---
Author Organization [facility] Address [address] [place] [address] Care Team Providers Care Air Conditioning Service Technician Name Role Phone Tez Zaragoza MD Primary Care Provider [phone] Tez Zaragoza MD Primary Care Provider Tez Zaragoza MD Primary Care Provider Suzan Carrington PROFESSOR OF THEOLOGY Unavailable Encounter Details Date Type Department Care Team (Late st Contact Info) Description 03/19/2023 Abstract [facility] [address] [place] [address] Chay Castro, DO [address] [place], [place] [id number] Social History Tobacco Use Types Packs/Day Years [...] Office Visit [facility] [address] [place] [phone] Tez Zaragoza MD [address] [place] [address] documented as of this encounter Visit Diagnoses Not on filedocumented in this encounter Care Teams Air Conditioning Service Technician Relationship Specialty Start Date End Date Tez Zaragoza MD PCP - General Family Medicine 02/26/23 11/11/23 Tez Zaragoza MD PCP - General Family Medicine 11/12/23 01/26/24 Tez Zaragoza MD [address] [place] [address] PCP - General Family Medicine 01/27/24 Suzan Carrington NP [address] [place] [address] PCP - [facility] GLASS BULB SILVERER 12/08/23 documented as of this encounter
--- OUTSIDE RECORDS SUMMARY | 2025-03-29 22:33 | XMS_ITS | CCD ---
Author Organization [facility] Care Team Providers Care Poultry Killer Name Role Phone ADAMOWICZ, LATASHA J Unavailable [...] Consulting Unavailable TEZ ANGEL Primary Care Physician [phone] MD Tez Angel Primary Care Provider Chay Castro Attending Provider [phone] Tez Angel MD Primary Care Provider Tez Angel Primary Care Unavailable Chay Castro Attending Unavailable Chay Castro Admitting Unavailable Heather Antunez MD Attending Unavailable Tez Angel MD Primary Care Provider Zeb BAH, Suzan Rodriguez Unavailable CHRISTOPHER MASTERS Attending Unavailable Melissa Nunez Attending Unavailable Alexx Gupta Attending Unavailable TEZ ANGEL Referring Unavailable Alexx Gupta Attending Unavailable Alexx Gupta Attending Unavailable Alexx Gupta Attending Unavailable Alexx Gupta Attending Unavailable TEZ ANGEL Referring Unavailable TEZ ANGEL Attending Unavailable TEZ ANGEL Admitting Unavailable Mayra Melissa A Referring Unavailable Mayra, Melissa A Attending Unavailable Melissa Nunez Admitting Unavailable Jean, Alexx Attending Unavailable Jean, Alexx Attending Unavailable Mourany, Alexx Dowling Attending Unavailable MouranyAlexx Admitting Unavailable MoAlexx vasquez Referring Unavailable Glenn Gupta Attending Unavaila ble Glenn Gupta Admitting Unavaila ble NONE, XXXX Referring Unavailable Glenn Gupta Attending Unavaila ble Glenn Gupta Admitting Unavaila ble Melissa Nunez Referring Unavailable MoAlexx vasquez Referring Unavailable Mogracey, Alexx Dowling Attending Unavailable Alexx Gupta Admitting Unavailable ChristGlenn armendariz Admitting Unavaila ble Glenn Gupta Referring Unavaila ble Glenn Gupta Attending Unavaila ble Glenn Gupta Consulting Unavaila MD Glenn Izaguirre Consulting Unava ilable Glenn Gupta Consulting Unavaila ble Timmis, Sarahy H Admitting Unavailable Timmis, Sarahy H Attending Unavailable Jean, Alexx Attending Unavailable TIMMIS, SARAHY H Referring Unavailable TIMMIS, SARAHY H Attending Unavailable MATTHEW, CAHY Attending Unavailable MATTHEW, CHAY Attending Unavailable MATTHEW, CHAY Referring Unavailable ZOYA PETER Attending Unavailable NADERER, TEZ Attending Unavailable NADERER, TEZ Attending Unavailable DOLCE, TEZ Jamir Attending Unavailable DOLCE, TEZ D Referring Unavailable TIMMIS, SARAHY H Attending Unavailable NADERER, TEZ Referring Unavailable NADERER, TEZ Attending Unavailable MATTHEW, CHAY Referring Unavailable Allergies Allergy Classification Reported Allergen(s) Allergy Type Date of Onset Reaction(s) Facility (20 sources) Iodine; Translations: [IODINE] Drug Allergy 8 Hives, Itching, Rash, Unknown [facility] Repository (20 sources) Acetaminophen / HYDROcodone; Translations: [Vicodin] Drug Allergy Unknown (qualifier value), Vomiting (disorder) [facility] Repository (9 sources) iodinated radiocontrast dyes; Translations: [iodinated radiocontrast agents] Drug allergy Unknown (qualifier value) [facility] [place] (13 sources) steri strips; Translations: [steri strips] Allergy to substance Itching (finding), Eruption of skin (disorder) [facility] (20 sources) Acetaminophen / HYDROcodone Drug Allergy 3 GI intolerance [facility] Work Phone: (20 sources) Wound Dressing Adhesive Propensity to adverse reactions 3 Hives, Itching, Rash [facility] Healthcare (1 source) Acetaminophen Drug Allergy 3 [facility] Repository (1 source) HYDROcodone Drug Allergy 3 [facility] Repository Medications Current Medications Medication Drug Class(es) Dates Sig (Normalized) Sig (Original) acetaminophen 325 mg / butalbital 50 mg / caffeine 40 mg oral tablet (7 sources) Barbiturate, Central Nervous System Stimulant, Methylxanthine Start: 02-25-2025 take 1 tablet by mouth four times daily as needed for headache butalbital-acetam inophen-caffeine 50-325-40 MG tablet Indications: Migraine without aura and without status migrainosus, not intractable Take 1 tablet by mouth 4 (four) times a day as needed for headaches 60 tablet 2 02/25/2025 Active acetaminophen 325 mg / oxyCODONE hydrochloride 5 mg oral tablet (9 sources) Opioid Agonist Start: 08-12-2023 Percocet 5 mg-325 mg oral tablet 1 tab(s), Oral, q6hr, 12 tab(s), Refill(s) 0, [facility], 157, cm, 08/11/23 13:28:00 EST, Height/Length Dosing, 132.9, kg, 08/11/23 13:28:00 EST, Weight Dosing Start Date: 08/12/23 Status: Ordered Start: 08-06-2023 End: 08-08-2023 Percocet 5 mg-325 mg oral ta blet 1 tab(s), Oral, q6hr as needed for pain, 10 tab(s), Refill(s) 0, [facility], 157.8, cm, 07/26/23 10:03:00 EST, Height/Length [...] before bedtime. 60 tablet 09/17/2024 10/17/2024 Active Atogepant (Qulipta) 60 MG tablet (7 sources) Start: 02-25-2025 take 1 tablet by mouth once daily Atogepant (Qulipta) 60 MG tablet Indications: Migraine without aura and without status migrainosus, not intractable Take 60 mg by mouth Daily 30 tablet 2 02/25/2025 Active azithromycin 250 mg oral tablet (2 sources) Macrolide Antimicrobial Start: 07-05-2024 azithromycin 250 mg Tab 250 mg, Oral, As Directed, # 6 tab(s), Refills(s) 0, Pharmacy: [facility], 157.4, cm, 07/05/24 17:14:00 EDT, Height/Length Dosing, 116.5, kg, 07/05/24 17:14:00 EDT, Weight Dosing Start Date: 07/05/24 Status: Ordered brompheniramine maleate 0.4 mg/ml / dextromethorphan hydrobromide 2 mg/ml / pseudoephedrine hydrochloride 6 mg/ml oral solution (1 source) alpha-Adrenergic Agonist, Uncompetitive P-biiriv-L-aspartate Receptor Antagonist, Sigma-1 Agonist Start: 06-27-2024 End: 07-04-2024 take 10 mL by mouth four times daily for cough and congestion Bromfed DM oral syrup 10 mL, Oral, QID for cough and congestion for 7 day(s), 280 mL, Refill(s) 0, [facility], 157, cm, 06/27/24 12:17:00 EDT, Height/Length Dosing, 116, kg, 06/27/24 12:17:00 EDT, Weight Dosing Start Date: 06/27/24 Stop Date: 07/04/24 Status: Ordered 24 hr buPROPion hydrochloride 150 mg extended release oral tablet (20 sources) Aminoketone Start: 01-18-2025 take 1 tablet by mouth once daily buPROPion XL (Wellbutrin XL) 150 MG 24 hr tablet Indications: MARGARETH (generalized anxiety disorder) Take 1 tablet (150 mg) by mouth Daily 30 tablet 5 01/18/2025 Active Start: 11-02-2024 End: 12-27-2024 take 1 tablet by mouth once daily buPROPion XL (Wellbutrin XL) 300 MG 24 hr tablet Indications: Mild recurrent major depression Take 1 tablet (300 mg) by mouth Daily 90 tablet 3 12/28/2024 Active Start: 03-03-2024 End: 07-02-2024 take 1 tablet by mouth once daily buPROPion XL (Wellbutrin XL) 150 MG 24 hr tablet Indications: MARGARETH (generalized anxiety disorder) (CMS/HCC) Take 1 tablet (150 mg) by mouth Daily 30 tablet 5 07/02/2024 Active Start: 10-22-2023 End: 10-22-2023 take 1 tablet [...] hydrochloride 120 mg extended release oral tablet (17 sources) alpha-Adrenergic Agonist, Histamine-1 Receptor Antagonist Start: 09-17-2024 End: 09-17-2025 take 1 tablet by mouth once in the morning, then take 1 tablet by mouth every twelve hours at bedtime cetirizine-pseudoeph edrine (ZyrTEC-D) 5-120 MG 12 hr tablet Indications: Chronic rhinosinusitis Take 1 tablet by mouth in the morning and 1 tablet before bedtime. 180 tablet 3 09/17/2024 02/25/2025 Discontinued cholecalciferol 0.05 mg oral tablet (20 sources) Vitamin D Start: 02-03-2024 End: 07-28-2024 take 1 tablet by mouth once daily cholecalciferol (Vitamin D-3) 50 MCG (1999 UT) tablet Indications: Vitamin D deficiency, unspecified Take 1 tablet (50 mcg) by mouth Daily 90 tablet 3 07/28/2024 Active cholecalciferol (Vitamin D-3) 50 MCG (1999 UT) tablet take 1 capsule by [facility] every twenty-four hours Vitamin D3 50 MCG (1999 UT) 1 capsule Or ally Once a day [...] propionate 0.05 mg/actuat metered dose nasal spray (20 sources) Corticosteroid Start: 07-28-2024 End: 09-17-2025 take 2 spray(s) nasal route once daily fluticasone (Flonase) 50 MCG/ACT nasal spray Indications: Chronic rhinosinusitis Administer 2 sprays into each nostril Daily Shake gently. Before first use, prime pump. After use, clean tip and replace cap. 48 g 3 09/17/2024 02/25/2025 Discontinued Start: 09-14-2022 take 2 spray(s) nasa l [...] capsule (20 sources) Anti-epileptic Agent Start: 08-21-2023 End: 02-25-2025 take 1 capsule by mouth at bedtime gabapentin (Neurontin) 100 MG capsule Take 100 mg by mouth at bedtime 08/21/2023 02/25/2025 Discontinued hydrOXYzine hydrochloride 50 mg oral tablet (20 sources) Antihistamine Start: 07-07-2023 End: 12-27-2024 take 1 tablet by mouth four times daily as needed for anxiety hydrOXYzine HCl (Atarax) 50 MG tablet Indications: MARGARETH (generalized anxiety disorder) Take 1 tablet [...] for 7 day(s), 3 mL, Refill(s) 0, [facility], 157, cm, 06/27/24 12:17:00 EDT, Height/Length Dosing, 116, kg, 06/27/24 12:17:00 EDT, Weight Dosing Start Date: 06/27/24 Stop Date: 07/04/24 Status: Ordered naratriptan 1 mg oral tablet (7 sources) Serotonin-1b and Serotonin-1d Receptor Agonist Start: 02-25-2025 naratriptan (Amerge) 1 MG tablet Indications: Migraine without aura and without status migrainosus, not intractable Take 1 tablet (1 mg) by mouth 1 (one) time if needed for migraine May repeat in 4 hours if unresolved. Do not exceed 5 mg in 24 hours. 9 tablet 02/25/2025 Active ondansetron 4 mg oral tablet (20 sources) Serotonin-3 Receptor Antagonist Start: 08-10-2021 take 1 tablet by mouth every six hours as needed for nausea Zofran ODT 4 mg Tab 4 mg = 1 tab(s), Oral, q6hr, PRN Nausea/Vomiting, Refills(s) 0 Start Date: 08/10/21 Status: Ordered ondansetron (Zof ran) 4 MG/5ML solution Take by mouth 1 (one) time Active take 1 tablet by ozë th every eight hours as needed Ondansetron [...] day(s), # 5 tab(s), Refills(s) 0, Pharmacy: [facility], 157.4, cm, 07/05/24 17:14:00 EDT, Height/Length Dosing, 116.5, kg, 07/05/24 17:14:00 EDT, Weight Dosing Start Date: 07/05/24 Stop Date: 07/10/24 Status: Ordered Start: 06-27-2024 End: 07-02-2024 take 2 tablets by mouth once daily predniSONE 20 mg Tab 40 mg = 2 tab(s), Oral, Daily, X 5 day(s), # 10 tab(s), Refills(s) 0, Pharmacy: [facility], 157, cm, 06/27/24 12:17:00 EDT, Height/Length [...] Ordered rizatriptan 10 mg disintegrating oral tablet (20 sources) Serotonin-1b and Serotonin-1d Receptor Agonist Start: 09-15-2024 End: 11-02-2024 rizatriptan STENO POOL SUPERVISOR (Maxalt-STENO POOL SUPERVISOR) 10 MG disintegrating tablet Indications: Ocular migraine Take 1 tablet (10 mg) by mouth 1 (one) time if needed for migraine May repeat in 2 hours if unresolved. Do not exceed 30 mg in 24 hours. 9 tablet 5 11/02/2024 Active Start: 06-14-2024 rizatriptan ML T (Maxalt-STENO POOL SUPERVISOR) 10 MG disintegrating tablet Indications: Ocular migraine [...] Start: 07-07-2023 take 9 tablets by mo uth every two hours SUMAtriptan 25 mg Tab 9 EA, 0 Refill(s), TAKE 1 TABLET BY MOUTH at onset OF headache may repeat in 2 (TWO) HOURS, Refills(s) 0 Start Date: 07/07/23 Status: Ordered Tirzepatide 2.5 MG/0.5ML solution auto-injector (7 sources) Start: 02-25-2025 Tirzepatide 2. 5 MG/0.5ML solution auto-injector Indications: Class 3 severe obesity due to excess calories with serious comorbidity and body mass index (BMI) of 45.0 to 49.9 in adult ([facility]) , Prediabetes Inject 2.5 mg under the skin 1 (one) time per week 2 mL 02/25/2025 Active topiramate 50 mg oral tablet (20 sources) Start: 03-22-2025 take 1 tablet by mouth in the morning topiramate (Topamax) 50 MG tablet Indications: Ocular migraine Take 50 mg by mouth in the morning and 50 mg before bedtime. 60 tablet 5 03/22/2025 Active Start: 07-07-2023 End: 02-28-2025 take 1 tablet by mouth in the morning topiramate (Topamax) 50 MG tablet Indications: Ocular migraine Take 50 mg by mouth in the morning and 50 mg before bedtime. 60 tablet 5 03/01/2025 Active topiramate (Topa max) 25 MG tablet [...] Sig (Normalized) Sig (Original) polyethylene glycol 3350 215124 mg / potassium chloride 1480 mg / sodium bicarbonate 5720 mg / sodium chloride 77173 mg powder for oral solution (15 sources) Osmotic Laxative Start: 07-08-2023 NuLYTELY Quach oral powder for reconstitution See Instructions, 1 EA, Refill(s) 0, Prior to colonoscopy., [facility], 157.5, cm, 07/08/23 14:03:00 EDT, [...] pain; Translations: [Epigastric pain] Onset: 3 Episodic Administrative/social admission (2 sources) Patient encounter status; Translations: [Person consulting for explanation of examination or test findings] 03-29-2025 Episodic Anxiety disorders (20 sources) Anxiety; Translations: [Generalized anxiety disorder] Onset: 3 08-06-2021 Chronic Biliary tract disease (20 sources) Biliary calculus; Translations: [Cholelithiasis without obstruction] Onset: 3 08-12-2021 Episodic Chronic obstructive pulmonary disease and bronchiectasis (1 source) Bronchitis; Translations: [Bronchitis, not specified as acute or chronic] Onset: 4 Episodic Deficiency and other anemia (17 sources) Anemia 08-06-2021 Episodic Endometriosis (20 sources) Endometriosis (clinical); Translations: [Endometriosis, unspecified] Onset: [...] Onset: 3 08-06-2021 Chronic Other acquired deformities (20 sources) Equinus contracture of the ankle; Translations: [Contracture, right ankle] Onset: 3 03-21-2023 Chronic Other aftercare (2 sources) Surgical follow-up; Translations: [Encounter for follow-up examination after completed treatment for conditions other than malignant neoplasm] 02-24-2025 Episodic Other connective tissue disease (5 sources) Pain [...] Onset: 4 Chronic Other female genital disorders (20 sources) Pain in female genitalia on intercourse; [...] 3 08-06-2021 Chronic Other nervous system disorders (20 sources) Complex regional pain syndrome of lower limb; Translations: [Complex regional pain syndrome I of unspecified lower limb] Onset: 3 03-21-2023 Chronic Other nervous system disorders (20 sources) Right tarsal tunnel syndrome; Translations: [Tarsal [...] excess calories] Onset: 3 08-06-2021 Chronic Other nutritional; endocrine; and metabolic disorders (11 sources) Severe obesity; Translations: [Class 3 severe obesity due to excess calories with serious comorbidity and body mass index (BMI) of 45.0 to 49.9 in adult ([facility])] Onset: 3 02-25-2025 Chronic Other upper respiratory infections (20 sources) Chronic sinusitis, unspecified; Translations: [Chronic rhinitis] [...] [Hypothyroidism, unspecified] Onset: 3 08-06-2021 Chronic Unclassified (20 sources) Patient on antidepressant monitoring plan Onset: 02-14-10-22-2023 Unclassified (20 sources) Baseline PHQ-9 Onset: 10-22-2023 Varicose veins of lower extremity (17 sources) Varicose veins of lower extremity 08-06-2021 Episodic Past or Other Problems Problem Classification Problem Date Documented Date Episodic/Chronic Cancer of cervix (20 sources) High grade squamous intraepithelial lesion on cervical Papanicolaou smear; Translations: [High grade squamous intraepithelial lesion on cytologic smear of cervix (HGSIL)] Onset: 11-12-2023 08-06-2021 Episodic Complications of surgical procedures or medical care (20 sources) Motion sickness; Translations: [Other complications of anesthesia, initial encounter] Onset: 03-21-2023 03-21-2023 Episodic Conditions associated with dizziness or vertigo (20 sources) Vertigo; Translations: [Dizziness and giddiness] Onset: 03-21-2023 Resolved: 02-25-2025 03-21-2023 Episodic Diabetes mellitus without complication (20 sources) Prediabetes; Translations: [Prediabetes] Onset: 02-17-2024 08-06-2021 Episodic Other connective tissue disease (4 sources) Other muscle spasm; Translations: [OTHER MUSCLE SPASM] Onset: 06-04-2022 Episodic Other connective tissue disease (1 source) Myalgia, unspecified site; Translations: [MYALGIA UNSPECIFIED SITE] Onset: 06-07-2022 Episodic Other connective tissue disease (20 sources) Inflammatory neuropathy ; 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, unspecified] Onset: 03-21-2023 03-21-2023 Episodic Other connective tissue disease (20 sources) Plantar fasciitis; Translations: [Plantar fascial fibromatosis] Onset: 03-21-2023 03-21-2023 Episodic Other female genital disorders (5 sources) Other specified noninflammatory disorders of vagina; Translations: [OTH SPEC NONINFLAMMATORY D/O VAGINA] Onset: 04-12-2022 Episodic Other female genital disorders (20 sources) Dysplasia of cervix; Translations: [Dysplasia of cervix uteri, unspecified] Onset: 03-21-2023 03-21-2023 Episodic Other injuries and conditions due to external causes (20 sources) At risk for falls ; Translations: [History of falling] Onset: 03-21-2023 03-21-2023 Episodic Other lower respiratory disease (20 sources) Snoring; Translations: [Snoring] Onset: 03-21-2023 Resolved: 02-25-2025 03-21-2023 Episodic Other nervous system disorders (20 sources) Difficulty walking; Translations: [Difficulty in walking, not elsewhere classified] Onset: 03-21-2023 Resolved: 08-27-2023 08-27-2023 Chronic Other screening for suspected conditions (not mental disorders or infectious disease) (20 sources) Abnormal coagulation profile; Translations: [Abnormal results of thyroid function studies] Onset: 04-15-2018 Resolved: 02-25-2025 Episodic Other skin disorders (1 source) Scar conditions and fibrosis of skin; Translations: [SCAR CONDITIONS AND FIBROSIS SKIN] Onset: 07-27-2022 Episodic Residual codes; unclassified (1 source) Other specified postprocedural states; Translations: [OTH SPECIFIED POSTPROCEDURAL STATES] Onset: 06-07-2022 Episodic Residual codes; unclassified (20 sources) Bilateral lower limb edema; Translations: [Localized edema] Onset: 03-21-2023 10-22-2023 Episodic Spondylosis; intervertebral disc disorders; other back problems (20 sources) Backache; Translations: [Dorsalgia, unspecified] Onset: 03-21-2023 03-21-2023 Episodic Viral infection (20 sources) Genital warts; Translations: [Anogenital (venereal) warts] Onset: 11-12-2023 08-06-2021 Episodic Results Test Name Value Interpretation Reference Range Facility US PELVIC COMPLETE W/ TVon 0 03-16-2025 US PELVIC COMPLETE W/ TV FINDINGS: Uterus surgically absent Endometrium n/a Right Ovary 2.7 x 2.0 x 2.0 cm Left Ovary 1.5 x 1.6 x 1.9 cm Comparison made with piror examination of January 17, 2025. Normal vaginal cuff. No pelvic fluid. No pelvic mass. Right ovarian 1.2 x 1.4 cm follicle/cyst. Normal left ovary. IMPRESSION: Resolved left ovarian cyst. TRANSCRIBED BY: ELECTRONICALLY SIGNED BY: Papo Nick MD Normal Not Available Comment on above: Order Comment: US PE LVIS-TRANSVAG IF INDICATED Patient's last menstrual period was 09/08/2023 (approximate). ALL CBC WITH AUTO DIFFon BASOPHILS ABSOLUTE AUTO 0 [facility] Basophils/100 WBC (Bld) 0.6 % 0.2 - 2.0 % [facility] Eosinophils/100 WBC (Bld) 1.1 % 0.9 - 7.0 % [facility] Erythrocyte distribution width (RBC) [Ratio] 12.1 % 11.0 - 15.0 % [facility] Hematocrit (Bld) [Volume fraction] 36.7 % 36.0 - 48.0 % [facility] Hemoglobin (Bld) [Mass/Vol] 11.9 g/dL Low 12.0 - 16.0 g/dL [facility] IMMATURE GRANULOCYTES ABS AUTO 0.01 [facility] Immature granulocytes/100 WBC (Bld) 0.2 % 0.0 - 0.5 % [facility] Interpretation and review of laboratory results Abnormal [facility] LYMPHOCYTES ABSOLUTE AUTO 1.6 [facility] Lymphocytes/100 WBC (Bld) 29.5 % 20.5 - 60.0 % [facility] MCH (RBC) [Entitic mass] 32.3 pg 26.7 - 34.0 pg [facility] MCHC (RBC) [Mass/Vol] 32.4 g/dL 29.9 - 35.2 g/dL [facility] MCV (RBC) [Entitic vol] 99.7 fL High 81.0 - 99.0 fL [facility] MONOCYTES ABSOLUTE AUTO 0.5 [facility] Monocytes/100 WBC (Bld) 8.4 % 1.7 - 12.0 % [facility] NEUTROPHILS ABSOLUTE AUTO 3.2 [facility] Neutrophils/100 WBC (Bld) 60.2 % 43.0 - 75.0 % [facility] Platelet mean volume (Bld) [Entitic vol] 11.3 fL 9.5 - 13.5 fL [facility] EO # 0.1 [facility] TB PLT 215 [facility] RBC 3.68 Low [facility] WBC 5.4 [facility] ALL CBC WITH AUTO DIFFon BASOPHILS ABSOLUTE AUTO 0 [facility] Basophils/100 WBC (Bld) 0.4 % 0.2 - 2.0 % [facility] Eosinophils/100 WBC (Bld) 0.9 % 0.9 - 7.0 % [facility] Erythrocyte distribution width (RBC) [Ratio] 11.9 % 11.0 - 15.0 % [facility] Hematocrit (Bld) [Volume fraction] 39.2 % 36.0 - 48.0 % [facility] Hemoglobin (Bld) [Mass/Vol] 12.8 g/dL 12.0 - 16.0 g/dL [facility] IMMATURE GRANULOCYTES ABS AUTO 0.02 [facility] Immature granulocytes/100 WBC (Bld) 0.3 % 0.0 - 0.5 % [facility] Interpretation and review of laboratory results Abnormal [facility] LYMPHOCYTES ABSOLUTE AUTO 2 [facility] Lymphocytes/100 WBC (Bld) 26.6 % 20.5 - 60.0 % [facility] MCH (RBC) [Entitic mass] 32.5 pg 26.7 - 34.0 pg [facility] MCHC (RBC) [Mass/Vol] 32.7 g/dL 29.9 - 35.2 g/dL [facility] MCV (RBC) [Entitic vol] 99.5 fL High 81.0 - 99.0 fL [facility] MONOCYTES ABSOLUTE AUTO 0.7 [facility] Monocytes/100 WBC (Bld) 8.8 % 1.7 - 12.0 % [facility] NEUTROPHILS ABSOLUTE AUTO 4.7 [facility] Neutrophils/100 WBC (Bld) 63 % 43.0 - 75.0 % [facility] Platelet mean volume (Bld) [Entitic vol] 10.9 fL 9.5 - 13.5 fL [facility] TBH EO # 0.1 [facility] TB PLT 182 [facility] RBC 3.94 Low [facility] TB WBC 7.5 [facility] ECG 12-LEADon 01-26-2025 [place] [address] Electrocardiograph Report Signed Patient: AZUL HUERTAS MR#: [id number] : 1990 Acct:[id number] Age/Sex: 34 / F ADM Date: 01/26/25 Loc: [facility] Attending Dr: Chay Castro D.O. Ordering Physician: Chay Castro D.O. Date of Service: 01/26/25 Procedure(s): ECG 12 lead Accession Number(s): [id number] cc: [facility] Test Date: 2025-01-26 Pat Name: AZUL HUERTAS Department: Room: - Gender: Female Control Director: : 1990 Requested By: CHAY CASTRO Order Number: [id number] Reading MD: ASHLIE AMOS M.D. Measurements Intervals [place] Rate: 74 P: 49 [place]: 122 QRS: -1 QRSD: 96 T: 8 QT: 381 QTc: 425 Interpretive Statements SINUS RHYTHM WITH SINUS ARRHYTHMIA Normal ECG Compared to ECG 03/04/2023 11:51:08 No significant changes Electronically Signed On 01-26-2025 21:45:21 EDT by ASHLIE AMOS M.D. Dictated By: ASHLIE AMOS Signed By: 01/26/255 DD/ 1130 TD/TT: Counseling Psychologist: [facility] Radiology, Radiologmarcelino cronin MD - 01/26/2025 [place] [address] Electrocardiograph Report Signed Patient: AZUL HUERTAS MR#: [id number] : 1990 Acct:[id number] Age/Sex: 34 / F ADM Date: 01/26/25 Loc: [facility] Attending Dr: Chay Castro D.O. Ordering Physician: Chay Castro D.O. Date of Service: 01/26/25 Procedure(s): ECG 12 lead Accession Number(s): [id number] cc: [facility] Test Date: 2025-01-26 Pat Name: AZUL HUERTAS Department: Room: - Gender: Female Control Director: : 1990 Requested By: CHAY CASTRO Order Number: [id number] Reading MD: ASHILE AMOS M.D. Measurements Intervals [place] Rate: 74 P: 49 WA: 122 QRS: -1 QRSD: 96 T: 8 QT: 381 QTc: 425 Interpretive Statements SINUS RHYTHM WITH SINUS ARRHYTHMIA Normal ECG Compared to ECG 03/04/2023 11:51:08 No significant changes Electronically Signed On 01-26-2025 21:45:21 EDT by ASHLIE AMOS M.D. Dictated By: ASHLIE AMOS Signed By: 01/26/25 2145 DD/ 1130 TD/TT: Counseling Psychologist: [facility] Radiology Study observation (narrative) [facility] ECG 12-LEADOrdered By: Radio logist Radiology on 01-26-2025 [facility] Work Phone: XR CHEST 2Von 01-26-2025 [place] [address] XRay Report Signed Patient: AZUL HUERTAS MR#: [id number] : 1990 Acct:[id number] Age/Sex: 34 / F ADM Date: 01/26/25 Loc: [facility] Attending Dr: Chay Castro D.O. Ordering Physician: Chay Castro D.O. Date of Service: 01/26/25 Procedure(s): XR chest 2V Accession Number(s): [id number] cc: Chay Castro D.O.; Tez Angel M.D. [place] [id number] Patient Name: AZUL HUERTAS MRN: [id number] date: 1990 Sex: F Assigned Patient Location: [facility] Current Patient Location: [facility] Accession/Order Number: [id number] Exam Date: 01/26/2025 11:49 Report Date: 01/26/2025 11:50 At the request of: CHAY CASTRO DO Procedure: XR chest 2V PA [...] Aquino M.D. 01/26/2025 11:50 AM Dictation Location: [place] [address] Electronically authenticated by: [id number] Y Date: 01/26/2025 11:50 Dictated By: Annmarie Aquino M.D. Signed By: 01/26/25 1152 DD/ 1150 TD/TT: Counseling Psychologist: [facility] Radiology Radiologmarcelino cronin MD - 01/26/2025 [place] [address] XRay Report Signed Patient: AZUL HUERTAS MR#: [id number] : 1990 Acct:[id number] Age/Sex: 34 / F ADM Date: 01/26/25 Loc: [facility] Attending Dr: Chay Castro D.O. Ordering Physician: Chya Castro D.O. Date of Service: 01/26/25 Procedure(s): XR chest 2V Accession Number(s): [id number] cc: Chay Castro D.O.; Tez Angel M.D. The [place] [id number] Patient Name: AZUL HUERTAS MRN: [facility]:[id number] date: 1990 Sex: F Assigned Patient Location: [facility] Current Patient Location: [facility] Accession/Order Number: [id number] Exam Date: 01/26/2025 11:49 Report Date: 01/26/2025 11:50 At the request of: CHAY CASTRO DO Procedure: XR chest 2V PA [...] Aquino M.D. 01/26/2025 11:50 AM Dictation Location: [place] [address] Electronically authenticated by: [id number] Y Date: 01/26/2025 11:50 Dictated By: Annmarie Aquino M.D. Signed By: 01/26/25 1152 DD/ 1150 TD/TT: Counseling Psychologist: [facility] Radiology Study observation (narrative) [facility] XR CHEST 2VOrdered By: Superfisht Radiology on 01-26-2025 [facility] Work Phone: US PELVIC COMPLETE W/ TVon 0 01-17-2025 [...] II, MD, PHD at 18-Jan-2025 08:11:35 AM [facility] Normal Not Available Comment on above: Order Comment: US PE LVIS-TRANSVAG IF INDICATED Patient's last menstrual period was 09/08/2023 (approximate). Urinalysis macro (dipstick) panel (U)on 01-12-2025 Bilirubin, UA Negative Negative - 4(70) +++ mg/dL [facility] Blood, UA Negative Negative - 50 Darren/mcL [facility] Clarity, UA Clear [facility] Color, UA Yellow [facility] Glucose, UA Negative Negative - 2000(110) ++++ mg/dL [facility] Interpretation and review of laboratory results Normal [facility] Ketones, UA Negative Negative - 160(16) ++++ mg/dL [facility] Leukocytes, UA Negative Negative - 500+++ Delmy/mcL [facility] Nitrite, UA Negative Negative - Positive [facility] pH, UA 7.5 5 - 9 [facility] Protein, UA Negative Negative - 1999(20) ++++ mg/dL [facility] Spec Grav, UA 1.02 1 - 1.03 [facility] Urobilinogen, UA 0.2 0.2 - 12 mg/dL [facility] Urinalysis macro (dipstick) panel (U)on 01-03-2025 Bilirubin, UA Negative Negative - 4(70) +++ mg/dL [facility] Blood, UA Negative Negative - 50 Darren/mcL [facility] Clarity, UA Clear [facility] Color, UA Yellow [facility] Glucose, UA Negative Negative - 1999(110) ++++ mg/dL [facility] Interpretation and review of laboratory results Normal [facility] Ketones, UA Negative Negative - 160(16) ++++ mg/dL [facility] Leukocytes, UA Negative Negative - 500+++ Delmy/mcL [facility] Nitrite, UA Negative Negative - Positive [facility] pH, UA 6 5 - 9 [facility] Protein, UA Negative Negative - 1999(20) ++++ mg/dL [facility] Spec Grav, UA 1.03 1 - 1.03 [facility] Urobilinogen, UA 1.0 0.2 - 12 mg/dL [facility] ALLERGENS W/TOTAL IGE AREA 5 on 11-03-2024 ACER NEGUNDO AB.IGE:ACNC:PT:SER:Q N: <0.10 Class 0 kunits/L [facility] ASPERGILLUS FUMIGATUS AB.IGE:ACNC:PT:SER:Q N: <0.10 Class 0 kunits/L [facility] BETULA VERRUCOSA AB.IGE:ACNC:PT:SER:Q N: <0.10 Class 0 kunits/L [facility] BLATELLA GERMANICA AB.IGE:ACNC:PT:SER:Q N: <0.10 Class 0 kunits/L [facility] CARYA ILLINOINENSIS TREE AB.IGE:ACNC:PT:SER:Q N: <0.10 Class 0 kunits/L [facility] CLADOSPORIUM HERBARUM AB.IGE:ACNC:PT:SER:Q N: <0.10 Class 0 kunits/L [facility] FRAXINUS AMERICANA AB.IGE:ACNC:PT:SER:Q N: <0.10 Class 0 kunits/L [facility] ALTERNARIA ALTERNATA AB.IGE:ACNC:PT:SER:Q N: <0.10 Class 0 kunits/L [facility] AMBROSIA ELATIOR AB.IGE:ACNC:PT:SER:Q N: <0.10 Class 0 kunits/L [facility] CAT DANDER AB.IGE:ACNC:PT:SER:Q N: <0.10 Class 0 kunits/L [facility] CLASS DESCRIPTION Comment [facility] Comment on above: Levels of Specific I gE Class Description of Class ----- < 0.10 0 Negative 0.10 - 0.31 0/I Equivocal/Low 0.32 - 0.55 I Low 0.56 - 1.40 II Moderate 1.41 - 3.90 III High 3.91 - 19.00 IV Very High 19.01 - 100.00 V Very High >100.00 Very High [facility] CYNODON DACTYLON AB.IGE:ACNC:PT:SER:Q N: <0.10 Class 0 kunits/L [facility] DERMATOPHAGOIDES FARINAE AB.IGE:ACNC:PT:SER:Q N: <0.10 Class 0 kunits/L [facility] DERMATOPHAGOIDES PTERONYSSINUS AB.IGE:ACNC:PT:SER:Q N: <0.10 Class 0 kunits/L [facility] DOG DANDER AB.IGE:ACNC:PT:SER:Q N: <0.10 Class 0 kunits/L [facility] IGE:ACNC:PT:SER/PLAS :QN: 34 [facility] MOUSE URINE PROTEINS AB.IGE:ACNC:PT:SER:Q N: <0.10 Class 0 kunits/L [facility] QUERCUS ALBA AB.IGE:ACNC:PT:SER:Q N: <0.10 Class 0 kunits/L [facility] ULMUS AMERICANA AB.IGE:ACNC:PT:SER:Q N: <0.10 Class 0 [...] [facility] Comment on above: Performed at: Lab [address] [id number] MD Jemal CASTRO AB.IGE:ACNC:PT:SER:Q N: <0.10 Class 0 kunits/L [facility] Original Ordering Provider: MD Sarahy ROSARIO [facility] Allergens w/Total IgE Area 5 on 11-03-2024 A. alternata IgE Qn (S) <0.10 Invalid Interpretation Code Class 0 [facility] Comment on above: Performed By: #### 1 [id number] #### [facility] [address] [place] [address] A. fumigatus IgE Qn (S) <0.10 Invalid Interpretation Code Class 0 [facility] Comment on above: Performed By: #### 1 [id number] #### [facility] [address] [place] [address] Russian house dust mite IgE Qn (S) <0.10 Invalid Interpretation Code Class 0 [facility] Comment on above: Performed By: #### 1 [id number] #### [facility] [address] [place] [address] Berm[place] grass IgE Qn (S) <0.10 Invalid Interpretation Code Class 0 [facility] Comment on above: Performed By: #### 1 [id number] #### [facility] [address] [place] [address] Boxelder IgE Qn (S) <0.10 Invalid Interpretation Code Class 0 [facility] Comment on above: Performed By: #### 1 [id number] #### [facility] [address] [place] [address] C. herbarum IgE Qn (S) <0.10 Invalid Interpretation Code Class 0 [facility] Comment on above: Performed By: #### 1 [id number] #### [facility] [address] [place] [address] [place] Pollen IgE Qn (S) <0.10 Invalid Interpretation Code Class 0 [facility] Comment on above: Performed By: #### 1 [id number] #### [facility] [address] [place] [address] Cat dander IgE Qn (S) <0.10 Invalid Interpretation Code Class 0 [facility] Comment on above: Performed By: #### 1 [id number] #### [facility] [address] [place] [address] Class Description Comment Invalid Interpretation Code [facility] Comment on above: Result Comment: Mckenzie rivrea of Specific IgE Class Description of Class ----- < 0.10 0 Negative 0.10 - 0.31 0/I Equivocal/Low 0.32 - 0.55 I Low 0.56 - 1.40 II Moderate 1.41 - 3.90 III High 3.91 - 19.00 IV Very High 19.01 - 100.00 V Very High >100.00 Very High Performed By: #### 1 [id number] #### [facility] [address] [place] [address] Cockroach IgE Qn (S) <0.10 Invalid Interpretation Code Class 0 [facility] Comment on above: Performed By: #### 1 [id number] #### [facility] [address] [place] [address] Common Pigweed IgE Qn (S) <0.10 Invalid Interpretation Code Class 0 [facility] Comment on above: Performed By: #### 1 [id number] #### [facility] [address] [place] [address] Common Ragweed IgE Qn (S) <0.10 Invalid Interpretation Code Class 0 [facility] Comment on above: Performed By: #### 1 [id number] #### [facility] [address] [place] [address] [place] IgE Qn (S) <0.10 Invalid Interpretation Code Class 0 [facility] Comment on above: Performed By: #### 1 [id number] #### [facility] [address] [place] [address] Dog dander IgE Qn (S) <0.10 Invalid Interpretation Code Class 0 [facility] Comment on above: Performed By: #### 1 [id number] #### [facility] [address] [place] [address] house dust mite IgE Qn (S) <0.10 Invalid Interpretation Code Class 0 [facility] Comment on above: Performed By: #### 1 [id number] #### [facility] [address] [place] [address] IgE Qn 34 International_Unit/mL Invalid Interpretation Code 6-495 [facility] Comment on above: Performed By: #### 1 [id number] #### [facility] [address] [place] [address] [place] IgE Qn (S) <0.10 Invalid Interpretation Code Class 0 [facility] Comment on above: Performed By: #### 1 [id number] #### [facility] [address] [place] [address] Mountain Juniper IgE Qn (S) <0.10 Invalid Interpretation Code Class 0 [facility] Comment on above: Performed By: #### 1 [id number] #### [facility] [address] [place] [address] Mouse urine proteins IgE Qn (S) <0.10 Invalid Interpretation Code Class 0 [facility] Comment on above: Performed By: #### 1 [id number] #### [facility] [address] [place] [address] P. notatum IgE Qn (S) <0.10 Invalid Interpretation Code Class 0 [facility] Comment on above: Performed By: #### 1 [id number] #### [facility] [address] [place] [address] Pecan or [place] Tree IgE Qn (S) <0.10 Invalid Interpretation Code Class 0 [facility] Comment on above: Performed By: #### 1 [id number] #### [facility] [address] [place] [address] Saltwort IgE Qn (S) <0.10 Invalid Interpretation Code Class 0 [facility] Comment on above: Performed By: #### 1 [id number] #### [facility] [address] [place] [address] Sheep [place] IgE Qn (S) <0.10 Invalid Interpretation Code Class 0 [facility] Comment on above: Result Comment: Perf ormed at: [facility] [address] [id number] MD Jemal Capps Performed By: #### 1 [id number] #### [facility] [address] [place] [address] Silver Birch IgE Qn (S) <0.10 Invalid Interpretation Code Class 0 [facility] Comment on above: Performed By: #### 1 [id number] #### [facility] [address] [place] [address] Latasha IgE Qn (S) <0.10 Invalid Interpretation Code Class 0 [facility] Comment on above: Performed By: #### 1 [id number] #### [facility] [address] [place] [address] [place] IgE Qn (S) <0.10 Invalid Interpretation Code Class 0 [facility] Comment on above: Performed By: #### 1 [id number] #### [facility] [address] [place] [address] White [place]m IgE Qn (S) <0.10 Invalid Interpretation Code Class 0 [facility] Comment on above: Performed By: #### 1 [id number] #### [facility] [address] [place] [address] White mulberry IgE Qn (S) <0.10 Invalid Interpretation Code Class 0 [facility] Comment on above: Performed By: #### 1 [id number] #### [facility] [address] [place] [address] [place] IgE Qn (S) <0.10 Invalid Interpretation Code Class 0 [facility] Comment on above: Performed By: #### 1 [id number] #### [facility] [address] [place] [address] CT MAXILLOFACIAL BONES WO IV CONTRASTon 11-03-2024 [...] Not Available Comment on above: Order Comment: [facility] on CT Sinus WO at [facility] 30 Days. Has FU appt 10/29. Please call patient to schedule. XR Foot - right 3 [facility] Result: XRAY: Three views were taken today AP/MO/LAT foot: Right 4th digit PIPJ joint fracture intra-articular mildly displaced [facility] Radiology Study observation (narrative) [facility] ED Note-Physicianon 07-06-20 ED Note-Physician ED Note-Physician Basic Information Time Seen: Franck BLAS, Bernabe Babin 07/05/2024 17:15 Chief Complaint pt presents with [...] and Complexity of Problems Differential Diagnosis: [] [facility] Data External documents reviewed: [] My EKG interpretation: reviewed My CT interpretation: [] My X-ray interpretation: reviewed My Ultrasound interpretation: [] Decision rules/scores evaluated: []The patient has acute bronchitis/bronchiolitis and antibiotics were not prescribed or dispensed today.[[facility] PERFORMANCE] [x] The patient has acute bronchitis/bronchiolitis. [...] Directed, # 6 tab(s), Refills(s) 0, Pharmacy: [facility], 157.4, cm, 07/05/24 17:14:00 EDT, Height/Length Dosing, 116.5, kg, 07/05/24 17:14:00 EDT, Weight Dosing predniSONE, 60 mg = 3 tab(s), Tab, Oral, Once, Stop date 07/05/24 19:00:00 EDT, STAT, Start date 07/05/24 19:00:00 EDT, 07/05/24 19:00:00 EDT predniSONE, 50 mg = 1 tab(s), Oral, Daily, X 5 day(s), # 5 tab(s), Refills(s) 0, Pharmacy: [facility], 157.4, cm, 07/05/24 17:14:00 EDT, Height/Length Dosing, 116.5, kg, 07/05/24 17:14:00 EDT, Weight Dosing Basic Metabolic Panel CBC w/ Auto Diff ED Cardiac Monitoring eGFR Extra SST Tube PT & PTT Troponin 0 Hr. XR Chest Single View Medications Administered Given azithromycin 250 mg Tab, 500 mg, Oral predniSONE 20 mg Tab, 60 mg, (more content not included)... Normal [facility] Comment on above: Result Comment: Elec tronically [...] FINAL REPORT Dictated: 07/06/2024 7:47 am Anthony Fitch M.D. Signed (Electronic Signature): 07/06/2024 7:47 am Signed by: Anthony Fitch M.D. Transcribed by: KARL Technologist: CRISTOBAL Technical Comments Radiation Dose: Ka,r in mGy = na DAP = na Normal [facility] BMPon 07-05-2024 Anion gap [Moles/Vol] 11 mmol/L Normal 6-16 [facility] Comment on above: Performed By: #### 2 [id number] #### [facility] [address] [place] [address] Calcium [Mass/Vol] 9.1 mg/dL Normal 8.9-11.1 [facility] Comment on above: Performed By: #### 2 [id number] #### [facility] [address] [place] [address] Chloride [Moles/Vol] 104 mmol/L Normal 101-111 [facility] Comment on above: Performed By: #### 2 [id number] #### [facility] [address] [place] [address] CO2 [Moles/Vol] 29 mmol/L Normal 21-31 [facility] Comment on above: Performed By: #### 2 [id number] #### [facility] [address] [place] [address] Creatinine [Mass/Vol] 1.2 mg/dL Normal 0.5-1.3 [facility] Comment on above: Performed By: #### 2 [id number] #### [facility] [address] [place] [address] Glucose [Mass/Vol] 89 mg/dL Normal 55-199 [facility] Comment on above: Performed By: #### 2 [id number] #### [facility] [address] [place] [address] Potassium [Moles/Vol] 3.5 mmol/L Normal 3.5-5.3 [facility] Comment on above: Performed By: #### 2 [id number] #### [facility] [address] [place] [address] Sodium [Moles/Vol] 140 mmol/L Normal 135-145 [facility] Comment on above: Performed By: #### 2 [id number] #### [facility] [address] [place] [address] Urea nitrogen [Mass/Vol] 20 mg/dL Normal 5-21 [facility] Comment on above: Performed By: #### 2 [id number] #### [facility] [address] [place] [address] Urea nitrogen/Creatinine [Mass ratio] 17 No Units Normal 10-20 [facility] Comment on above: Performed By: #### 2 [id number] #### [facility] [address] [place] [address] CBC w/ Auto Diffon 4 Basophils/100 WBC (Bld) 0.5 % Normal 0.0-2.0 [facility] Comment on above: Performed By: #### 2 [id number] #### [facility] [address] [place] [address] Basophils/Leukocytes Auto (Bld) [Pure # fraction] 0.1 E9/L Normal 0.0-0.2 [facility] Comment on above: Performed By: #### 2 [id number] #### [facility] [address] [place] [address] Eosinophils (Bld) [#/Vol] 0.1 E9/L Normal 0.0-0.5 [facility] Comment on above: Performed By: #### 2 [id number] #### [facility] [address] [place] [address] Eosinophils/100 WBC (Bld) 1.0 % Normal 0.0-8.0 [facility] Comment on above: Performed By: #### 2 [id number] #### [facility] [address] [place] [address] Erythrocyte distribution width (RBC) [Ratio] 12.3 % Normal 10.9-14.2 [facility] Comment on above: Performed By: #### 2 [id number] #### [facility] [address] [place] [address] Hematocrit (Bld) [Volume fraction] 41.2 % Normal 34.0-46.0 [facility] Comment on above: Performed By: #### 2 [id number] #### [facility] [address] [place] [address] Hemoglobin (Bld) [Mass/Vol] 14.1 g/dL Normal 12.0-16.0 [facility] Comment on above: Performed By: #### 2 [id number] #### [facility] [address] [place] [address] Lymphocytes (Bld) [#/Vol] 2.8 E9/L Normal 1.0-4.0 [facility] Comment on above: Performed By: #### 2 [id number] #### [facility] [address] [place] [address] Lymphocytes/100 WBC (Bld) 25.4 % Normal 14.0-50.0 [facility] Comment on above: Performed By: #### 2 [id number] #### [facility] [address] [place] [address] MCH (RBC) [Entitic mass] 33.2 pg Normal 27.0-34.0 [facility] Comment on above: Performed By: #### 2 [id number] #### [facility] [address] [place] [address] MCHC (RBC) [Mass/Vol] 34.1 g/dL Normal 31.4-36.0 [facility] Comment on above: Performed By: #### 2 [id number] #### [facility] [address] [place] [address] MCV (RBC) [Entitic vol] 97.3 fL Normal 80.0-100.0 [facility] Comment on above: Performed By: #### 2 [id number] #### [facility] [address] [place] [address] Monocytes (Bld) [#/Vol] 0.7 E9/L Normal 0.2-1.0 [facility] Comment on above: Performed By: #### 2 [id number] #### [facility] [address] [place] [address] Neutrophils (Bld) [#/Vol] 7.3 E9/L Normal 2.0-7.5 [facility] Comment on above: Performed By: #### 2 [id number] #### [facility] [address] [place] [address] Neutrophils/100 WBC (Bld) 66.7 % Normal 36.0-75.0 [facility] Comment on above: Performed By: #### 2 [id number] #### [facility] [address] [place] [address] Platelet mean volume (Bld) [Entitic vol] 8.2 fL Normal 6.4-10.8 [facility] Comment on above: Performed By: #### 2 [id number] #### [facility] [address] [place] [address] Platelets (Bld) [#/Vol] 310.0 E9/L Normal 150.0-500. 0 [facility] Comment on above: Performed By: #### 2 [id number] #### [facility] [address] [place] [address] RBC (Bld) [#/Vol] 4.2 E12/L Low 4.3-5.9 [facility] Comment on above: Performed By: #### 2 [id number] #### [facility] [address] [place] [address] WBC corrected for nucl RBC Auto (Bld) [#/Vol] 10.9 E9/L Normal 4.0-11.0 [facility] Comment on above: Performed By: #### 2 [id number] #### [facility] [address] [place] [address] CHEMISTRYOrdered By: SYSTEM SYSTEM on 07-05-2024 Anion [...] Sensitivity Troponin I Instructions For Use, Melissa Mayelin, April 2018) Urea nitrogen [Mass/Vol] 20 mg/dL Normal 5 - 21 mg/dL [facility] Urea nitrogen/Creatinine [Mass ratio] 17 mg/mg Normal 10 - 20 [facility] COAGULATIONOrdered By: Hamlet emmanuel Ley on 07-05-2024 aPTT Coag (PPP) [Time] 30.3 s Normal 25.1 - 36.5 second(s) [facility] Auto Coag Comment on above: Interpretive Data: Jenna ramos 15 days - 4 weeks 1 - [...] the same coagulation reagent and instrumentation as [facility]. Currently there are no coagulation studies available worldwide for children to 14 days, and no normal ranges. Heparin therapeutic range (represented by Anti-Factor Xa activity of 0.2 - 0.4 U/mL) corresponds to PTT of 56.6 - 109.0 sec. INR Coag (PPP) [Relative time] 0.94 {INR} Invalid Interpretation Code [facility] Auto Coag Comment on above: Interpretive Data: I NR results are specifically intended to assess patients stabilized on long-term Anticoagulation therapy suggested INR s Less Intensive Anticoagulation 2.0 3.0 Conventional Range 3.0 4.5 PT Coag (PPP) [Time] 10.5 s Normal 9.4 - 1 2.5 second(s) [facility] Auto Coag Comment on above: Interpretive Data: [...] the same coagulation reagent and instrumentation as [facility]. Currently there are no coagulation studies available worldwide for children to 14 days, and no normal ranges. ED Clinical Summaryon 2023 ED Clinical Summary ED Clinical Summary [place] [id number] ED Clinical Summary Person Information Name: AZUL SERRANO [facility] Age: 33 Years : 1990 Sex: Female Language: Yoruba PCP: TEZ ANGEL MD Marital Status: Single [...] 19:13:53 07/05/2024 19:13:53 07/05/2024 19:13:53 ADDRESS: [address] [place] [id number] PHYS DOC NOTES: MEDICAL INFORMATION: Prescriptions Given: New Medications [facility], [address] [place] [id number], [phone] azithromycin (azithromycin 250 mg Tab) 250 Milligram [...] PATIENT EDUCATION INFORMATION: Instructions: Acute Bronchitis, Adult, Dyjo-cz-Pgaq Follow up: With: Address: When: [place] [id number] [employer] () In 3 days 07/08/2024 Comments: Call Dr for diagnosis based follow up DIAGNOSIS: Bronchitis Normal [facility] ED Patient Summaryon ED Patient Summary ED Patient Summary [place] [id number] Patient Discharge Instructions Person Information Name: AZUL SERRANO Age: 33 Years Arrival Date: 07/05/2024 17:04:00 Discharge Diagnosis: Bronchitis Primary Care Physician: TEZ ANGEL MD Provider Information Primary Provider: Alexx ePna DO Advanced Career Services Director:None The exam and treatment you received in the Emergency Department were for an urgent problem and are not intended as complete care. It is important that you follow up with a doctor, nurse practitioner, or physician???s assistant manager quality management for ongoing care. If your symptoms become worse or you do not improve as expected and you are unable to reach your usual health care provider, you should return to the Emergency Department. We are available 24 hours a day. AZUL SERRANO has been given the following list of patient education materials, prescriptions and follow-up instructions: Follow-up Instructions: With: Address: When: [place] [phone] [employer]) In 3 days 07/08/2024 Comments: Call Dr for diagnosis based follow up In the event that this physician does not participate in your insurance network, please consult with your insurance company to find a nearby participating provider. Patient Education Materials: Acute Bronchitis, Adult, Uzlg-sg-Svev A MESSAGE TO ALL PATIENTS REGARDING OPIOIDS PRESCRIPTION OPIOIDS: WHAT YOU NEED TO KNOW Prescription opioids can be used to help relieve asfnbyxg-cr-uryflf pain and are often prescribed following a [...] struggling w (more content not included)... Normal [facility] HEMATOLOGYOrdered By: SYSTEM SYSTEM on 07-05-2024 Basophils/100 [...] Coag (PPP) [Time] 30.3 second(s) Normal 25.1-36.5 [facility] Comment on above: Result Comment: Para meter 15 days - 4 weeks 1 - 5 months 6 - 11 months 1 - 5 years 6 - 10 years 11 - 17 years PTT Mean: 35.4 (27.6-45.6) Mean: 33.5 (24.8-40.7) Mean: 32.4 (25.1-40.7) Mean: 31.6 (24.0-39.2) Mean: 31.6 (26.9-38.7) Mean: 31.0 (24.6-38.4) Pediatric Reference ranges were obtained from a study by jacqui De Los Santos. prepared from 1437 samples obtained at 7 different centers using the same coagulation reagent and instrumentation as [facility]. Currently there are no coagulation studies available worldwide for children to 14 days, and no normal ranges. Heparin therapeutic range (represented by Anti-Factor Xa activity of 0.2 - 0.4 U/mL) corresponds to PTT of 56.6 - 109.0 sec. Performed By: #### 1 [id number] #### [facility] [address] [place] [address] INR Coag (PPP) [Relative time] 0.94 {INR} Invalid Interpretation Code [facility] Comment on above: Result Comment: INR results are specifically intended to assess patients stabilized on long-term Anticoagulation therapy suggested INR???s ???Less Intensive Anticoagulation??? 2.0 ??? 3.0 Conventional Range 3.0 ??? 4.5 Performed By: #### 1 [id number] #### [facility] [address] [place] [address] PT Coag (PPP) [Time] 10.5 second(s) Normal 9.4-12.5 [facility] Comment on above: Result Comment: 15 d [...] the same coagulation reagent and instrumentation as [facility]. Currently there are no coagulation studies available worldwide for children to 14 days, and no normal ranges. Performed By: #### 1 [id number] #### [facility] [address] [place] [address] Troponin 0 Hr.on 07-05-2024 Troponin HS 2.90 pg/mL Low .10-27.1 0 [facility] Comment on above: Result Comment: The 95% CI (Confidence Interval) PPV (Positive Predictive Value) for myocardial infarction in females is 38 pg/mL, in males 51 pg/mL. The results should be used in conjunction with clinical conditions of myocardial infarction. (Access High Sensitivity Troponin I Instructions For Use, Tizaro, April 2018) Performed By: #### 1 [id number] #### [facility] [address] [place] [address] eGFRon 07-05-2024 eGFR 61 mL/min/1.73 m2 Normal >=59 [facility] Comment on above: Performed By: #### 1 [id number] #### [facility] [address] [place] [address] Family Medicine Office/Clini c Noteon 06-28-2024 Family Medicine Office/Clinic Note Family Medicine Office/Clinic Note Chief Complaint cough, sore throat, congestion HPI Staff complaints of sore throat, cough Onset: 6 days Characteristics: congestion, loss of appetite, eye drainage and redness, facial pain OTC tried: DayQuil, mucinex History of Present Illness Reviewed and agree with above documented HPI by medical billing coordinator. Portions of this record may have been created with voice recognition artificial intelligence software, specifically [employer], [employer] and or [employer]. Substitutions may have occurred due to the inherent limitations of voice recognition and artificial intelligence software. Patient is a 33-year-old female who presents to [facility] care, for sinus congestion, facial pressure, bilateral eye conjunctivitis, loss of appetite, and a nonproductive cough that is worse at night, patient states symptoms been going on for about 6 days, she is sure that the sinus infection and started having bilateral conjunctivitis, states her eyes are itchy but not painful, patient states she has been taking arlt-uec-iuqyluh DayQuil and Mucinex without any relief, states [...] subsequent visits. 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 Normal [facility] Comment on above: Result Comment: Elec tronically Signed By: CHRISTOPHER MASTERS PA-C\.br\Date and Time Signed: 06/28/24 13:01 EDT Ambulatory Visit Summaryon 1 Ambulatory Visit Summary Ambulatory Visit Summary AZUL SERRANO :1990 Visit Date:06/27/2024 Ambulatory Visit Instructions Your [...] Bilateral conjunctivitis Duration: 7 Days Pickup at [facility] Unchanged acetaminophen-oxycodone (Percocet 5 mg-325 mg [...] TABLET BY MOUTH TWICE DAILY Pharmacy Information [facility]: [address], [place] [id number] [phone] Allergies Vicodin (Vomiting) iodine (Hives) steri strips [...] your c (more content not included)... Normal [facility] ABO/Rhon 10-25-2023 ABO/Rh Negative Invalid Interpretation Code [facility] Comment on above: Performed By: #### 1 [id number], [id number], 75227432, 4593425 ####[facility] [address] [place] [address] ABO/Rh History Checkon 10-25 ABO/Rh History Check Type verified by second s Normal [facility] Comment on above: Performed By: #### 1 [id number], 74741210, 30045329, 3857682 ####[facility] [address] [place] [address] ABO/Rh Retypeon 10-25-2023 ABO/Rh Retype Interp Negative Invalid Interpretation Code [facility] Comment on above: Performed By: #### 2 939084, 50994643, 87743030, 98547473, 8395007 ####[facility] [address] [place] [address] ABSCon 10-25-2023 ABSC Gel Interp Negative Normal [facility] Comment on above: Performed By: #### 1 5992010, 66740357, 73179652, 7160551 ####[facility] [address] [place] [address] BLOOD BANKOrdered By: Bridget Baorn on 10-25-2023 ABO/Rh Interp Negative Invalid Interpretation Code [facility] BB Subsection ABSC Gel Interp Negative (10/25/23 2:57 PM) Normal [facility] BB Subsection ABO/Rh Retype Interp Negative Invalid Interpretation Code [facility] BB Subsection Blood Bank ID#on 10-25-2023 BBID# [id number] Invalid Interpretation Code [facility] Comment on above: Performed By: #### 1 8156793, 05446329, 46245064, 2069687 ####[facility] [address] [place] [address] CBC w/ Auto Diffon 4 Basophil Absolute 0.0 E9/L Normal 0.0-0.2 [facility] Comment on above: Performed By: #### 2 883673, 51677318, 26154164, 57515838, 2631876 #### [facility] [address] [place] [address] Basophils/100 WBC (Bld) 0.5 % Normal 0.0-2.0 [facility] Comment on above: Performed By: #### 2 108117, 76278908, 65066402, 49972932, 9957798 #### [facility] [address] [place] [address] Eos Absolute 0.1 E9/L Normal 0.0-0.5 [facility] Comment on above: Performed By: #### 2 227061, 42856794, 59559504, 70186839, 9803171 #### [facility] [address] [place] [address] Eosinophils/100 WBC (Bld) 1.6 % Normal 0.0-8.0 [facility] Comment on above: Performed By: #### 2 337873, 61312824, 27806726, 69902127, 2267829 #### [facility] [address] [place] [address] Erythrocyte distribution width (RBC) [Ratio] 13.1 % Normal 10.9-14.2 [facility] Comment on above: Performed By: #### 2 754050, 08329547, 20838502, 20005014, 5508741 #### [facility] [address] [place] [address] Hematocrit (Bld) [Volume fraction] 38.0 % Normal 34.0-46.0 [facility] Comment on above: Performed By: #### 2 930469, 02402072, 10517945, 64968504, 3009029 #### [facility] [address] [place] [address] Hemoglobin (Bld) [Mass/Vol] 12.9 g/dL Normal 12.0-16.0 [facility] Comment on above: Performed By: #### 2 503117, 71973766, 96333135, 43997119, 8333448 #### [facility] [address] [place] [address] Lymph Absolute 1.4 E9/L Normal 1.0-4.0 [facility] Comment on above: Performed By: #### 2 889679, 05638896, 48946422, 65654018, 4834537 #### [facility] [address] [place] [address] Lymphocytes/100 WBC (Bld) 28.4 % Normal 14.0-50.0 [facility] Comment on above: Performed By: #### 2 332718, 07163467, 88720807, 00493362, 2122184 #### [facility] [address] [place] [address] MCH (RBC) [Entitic mass] 31.7 pg Normal 27.0-34.0 [facility] Comment on above: Performed By: #### 2 128562, 83698849, 19920336, 48720015, 2344137 #### [facility] [address] [place] [address] MCHC (RBC) [Mass/Vol] 33.7 g/dL Normal 31.4-36.0 [facility] Comment on above: Performed By: #### 2 962914, 93983630, 23974187, 85508265, 1433267 #### [facility] [address] [place] [address] MCV (RBC) [Entitic vol] 94.0 fL Normal 80.0-100.0 [facility] Comment on above: Performed By: #### 2 079763, 45204499, 34419216, 31363763, 9938229 #### [facility] [address] [place] [address] [place] Absolute 0.4 E9/L Normal 0.2-1.0 [facility] Comment on above: Performed By: #### 2 939629, 13842809, 01258768, 71987809, 2530442 #### [facility] [address] [place] [address] Monocytes/100 WBC (Bld) 8.0 % Normal 4.0-14.0 [facility] Comment on above: Performed By: #### 2 792791, 74164067, 45915147, 95224476, 7095466 #### [facility] [address] [place] [address] Neutro Absolute 3.1 E9/L Normal 2.0-7.5 [facility] Comment on above: Performed By: #### 2 118525, 00463278, 61795210, 09336788, 2524042 #### [facility] [address] [place] [address] Neutro Auto 61.5 % Normal 36.0-75.0 [facility] Comment on above: Performed By: #### 2 690288, 89739765, 00277979, 17376909, 9094016 #### [facility] [address] [place] [address] Platelet 221.0 E9/L Normal 150.0-500. 0 [facility] Comment on above: Performed By: #### 2 428606, 12220288, 42754985, 12548494, 7226155 #### [facility] [address] [place] [address] Platelet mean volume (Bld) [Entitic vol] 8.9 fL Normal 6.4-10.8 [facility] Comment on above: Performed By: #### 2 610795, 70602827, 58342409, 20240589, 9853205 #### [facility] [address] [place] [address] RBC 4.1 E12/L Low 4.3-5.9 [facility] Comment on above: Performed By: #### 2 087715, 47637715, 83030067, 71377358, 6988458 #### [facility] [address] [place] [address] WBC 5.0 E9/L Normal 4.0-11.0 [facility] Comment on above: Performed By: #### 2 252396, 35601660, 95848723, 15974584, 2658653 #### [facility] [address] [place] [address] CHEMISTRYOrdered By: SYSTEM SYSTEM on 10-25-2023 Albumin [...] 10-25-2023 Albumin [Mass/Vol] 4.1 g/dL Normal 3.3-5.0 [facility] Comment on above: Performed By: #### 2 367431, 88996479, 49320652, 51043519, 3865152 #### [facility] [address] [place] [address] Albumin/Globulin [Mass ratio] 1.5 {ratio} Normal 1.1-2.2 [facility] Comment on above: Performed By: #### 2 816373, 90677003, 57737892, 86659499, 9327193 #### [facility] [address] [place] [address] Alk Phos 96 Int._Unit/L Normal 21-98 [facility] Comment on above: Performed By: #### 2 928397, 50165800, 37638218, 94797684, 5752384 #### [facility] [address] [place] [address] ALT 12 Int._Unit/L Normal 6-46 [facility] Comment on above: Performed By: #### 2 757928, 46602379, 47176301, 90023358, 3519046 #### [facility] [address] [place] [address] Anion gap [Moles/Vol] 10 mmol/L Normal 6-16 [facility] Comment on above: Performed By: #### 2 596519, 69323196, 31519688, 47069095, 7406974 #### [facility] [address] [place] [address] AST 13 Int._Unit/L Normal 5-43 [facility] Comment on above: Performed By: #### 2 749564, 66447353, 62846553, 48797735, 5103891 #### [facility] [address] [place] [address] Bili Total 0.3 mg/dL Normal 0.0-1.1 [facility] Comment on above: Performed By: #### 2 637301, 61419979, 58517956, 41629649, 4302915 #### [facility] [address] [place] [address] BUN/Creat Ratio 12 No Units Normal 10-20 [facility] Comment on above: Performed By: #### 2 779533, 46873182, 95271976, 81149937, 4672493 #### [facility] [address] [place] [address] Calcium [Mass/Vol] 9.3 mg/dL Normal 8.9-11.1 [facility] Comment on above: Performed By: #### 2 434792, 70329702, 05850251, 06901289, 0551381 #### [facility] [address] [place] [address] Chloride [Moles/Vol] 108 mmol/L Normal 101-111 [facility] Comment on above: Performed By: #### 2 632175, 41662354, 19562543, 73315260, 4406706 #### [facility] [address] [place] [address] CO2 [Moles/Vol] 23 mmol/L Normal 21-31 [facility] Comment on above: Performed By: #### 2 939589, 17007556, 36647612, 26051267, 1845114 #### [facility] [address] [place] [address] Creatinine [Mass/Vol] 1.1 mg/dL Normal 0.5-1.3 [facility] Comment on above: Performed By: #### 2 080137, 93609471, 27854003, 60534400, 5038284 #### [facility] [address] [place] [address] Globulin (S) [Mass/Vol] 2.8 g/dL Normal 1.4-4.0 [facility] Comment on above: Performed By: #### 2 083383, 90487767, 12280308, 45272679, 2639011 #### [facility] [address] [place] [address] Glucose [Mass/Vol] 106 mg/dL Normal 55-199 [facility] Comment on above: Performed By: #### 2 243625, 68502118, 82638664, 63730094, 6435542 #### [facility] [address] [place] [address] Potassium [Moles/Vol] 3.8 mmol/L Normal 3.5-5.3 [facility] Comment on above: Performed By: #### 2 106594, 32362445, 09033975, 60421842, 1485889 #### [facility] [address] [place] [address] Protein [Mass/Vol] 6.9 g/dL Normal 6.0-7.8 [facility] Comment on above: Performed By: #### 2 088880, 39769549, 81158964, 56490425, 7687985 #### [facility] [address] [place] [address] Sodium [Moles/Vol] 137 mmol/L Normal 135-145 [facility] Comment on above: Performed By: #### 2 419150, 62806809, 15653619, 68788726, 9609129 #### [facility] [address] [place] [address] Urea nitrogen [Mass/Vol] 13 mg/dL Normal 5-21 [facility] Comment on above: Performed By: #### 2 593396, 72838465, 74699401, 90847653, 3199907 #### [facility] [address] [place] [address] COAGULATIONOrdered By: Pool Sykes on 10-25-2023 aPTT Coag (PPP) [Time] 31.3 s Normal 25.1 - 36.5 second(s) [facility] Auto Coag Comment on above: Interpretive Data: [...] the same coagulation reagent and instrumentation as [facility]. Currently there are no coagulation studies available worldwide for children to 14 days, and no normal ranges. Heparin therapeutic range (represented by Anti-Factor Xa activity of 0.2 - 0.4 U/mL) corresponds to PTT of 56.6 - 109.0 sec. INR Coag (PPP) [Relative time] 1.11 {INR} Invalid Interpretation Code [facility] Auto Coag Comment on above: Interpretive Data: I NR results are specifically intended to assess patients stabilized on long-term Anticoagulation therapy suggested INR s Less Intensive Anticoagulation 2.0 3.0 Conventional Range 3.0 4.5 PT Coag (PPP) [Time] 12.4 s Normal 9.4 - 1 2.5 second(s) [facility] Auto Coag Comment on above: Interpretive Data: [...] the same coagulation reagent and instrumentation as [facility]. Currently there are no coagulation studies available worldwide for children to 14 days, and no normal ranges. Consent for Treatmenton 10-09 Consent for Treatment [id number] Normal [facility] Discharge Instructionson Discharge Instructions [id number] Normal [facility] ED Clinical Summaryon 2023 ED Clinical Summary (Inserted Image. Zenaida ble to display) [place] [id number] ED Clinical Summary Person Information Name: PRINCE HARODEJAJASONJudd Rodriguez Vilma/[facility] Age: 33 Years : 1990 Sex: Female Language: Yoruba PCP: TEZ ANGEL MD Marital Status: Single [...] 10/25/2023 16:52:18 10/25/2023 16:52:18 ADDRESS: [address] [facility] [id number] PHYS DOC NOTES: MEDICAL INFORMATION: Prescriptions Given: [...] Follow up: With: Address: When: Chay CASTRO [facility], [address] [facility] [address] [place] [address] Business (1) In 3 days 10/28/2023 With: Address: When: TEZ ANGEL [address] [place], [place] [phone] Business (1) In 3 days DIAGNOSIS: Headache; Vaginal bleeding Normal [facility] ED Note-Physicianon 10-25-19 ED Note-Physician Basic Information [...] relief of symptoms. She talk to the [employer] physician was instructed to come to the [...] Information Chay CASTRO In 3 days 10/28/2023 [facility] [address] [facility] [address] , [place] [address]- Business (1) Additional Instructions: TEZ ANGEL In 3 days [address] [place] [address] Business (1) Additional Instructions: Problem List/Past [...] nalbuphine 10 (more content not included)... Normal [facility] Comment on above: Result Comment: Elec tronically Signed By: Alexx Pena DO\.br\Date and Time Signed: 10/25/23 16:40 EST ED Patient Education Noteon 10-25-2023 ED Patient Education Note Normal [facility] ED Patient Summaryon 024 ED Patient Summary (Inserted Image. Zenaida ble to display) [address] [address] Patient Discharge Instructions Person Information Name: AZUL SERRANO Age: 33 Years Arrival Date: 10/25/2023 14:15:46 Discharge Diagnosis: Headache; Vaginal bleeding Primary Care Physician: STANLEY SOTELO, TEZ Provider Information Primary Provider: Alexx Pena DO Advanced Career Services Director:None The exam and treatment you received in the Emergency Department were for an urgent problem and are not intended as complete care. It is important that you follow up with a doctor, nurse practitioner, or physician?s assistant manager quality management for ongoing care. If your symptoms become worse or you do not improve as expected and you are unable to reach your usual health care provider, you should return to the Emergency Department. We are available 24 hours a day. AZUL SERRANO has been given the following list of patient education materials, prescriptions and follow-up instructions: Follow-up Instructions: With: Address: When: Chay CASTRO [facility], [address] [place] [address] [place] [address] Business (1) In 3 days 10/28/2023 With: Address: When: TEZ ANGEL [address] [place] [phone] Business (1) In 3 days In the event that this physician does not participate in your insurance network, please consult with your insurance company to find a nearby participating provider. Patient Education Materials: A MESSAGE TO ALL PATIENTS REGARDING OPIOIDS PRESCRIPTION OPIOIDS: WHAT YOU NEED TO KNOW Prescription opioids can be used to help relieve xbbnfwtf-eq-dsxenp pain and are often prescribed following a [...] tell y (more content not included)... Normal [facility] HEMATOLOGYOrdered By: Bridget Baron on 10-25-2023 Basophil [...] Normal 80.0 - 100.0 fL Remisol Heme [place] Absolute 0.4 E9/L Normal 0.2 - 1.0 [...] Coag (PPP) [Time] 31.3 second(s) Normal 25.1-36.5 [facility] Comment on above: Result Comment: Para meter [...] the same coagulation reagent and instrumentation as [facility]. Currently there are no coagulation studies available worldwide for children to 14 days, and no normal ranges. Heparin therapeutic range (represented by Anti-Factor Xa activity of 0.2 - 0.4 U/mL) corresponds to PTT of 56.6 - 109.0 sec. Performed By: #### 2 832952, 16855308, 78051625, 30769210, 2567645 #### [facility] [address] [place] [address] INR Coag (PPP) [Relative time] 1.11 {INR} Invalid Interpretation Code [facility] Comment on above: Result Comment: INR results are specifically intended to assess patients stabilized on long-term Anticoagulation therapy suggested INR?s ?Less Intensive Anticoagulation? 2.0 ? 3.0 Conventional Range 3.0 ? 4.5 Performed By: #### 2 352245, 79438168, 87793508, 44480661, 4278683 #### [facility] [address] [place] [address] PT Coag (PPP) [Time] 12.4 second(s) Normal 9.4-12.5 [facility] Comment on above: Result Comment: 15 d [...] the same coagulation reagent and instrumentation as [facility]. Currently there are no coagulation studies available worldwide for children to 14 days, and no normal ranges. Performed By: #### 2 [id number], [id number], [id number], [id number], [id number] #### [facility] [address] [place] [address] eGFRon 10-25-2023 eGFR 68 mL/min/1.73 m2 Normal >=59 [facility] Comment on above: Order Comment: Order added by Discern Expert. Performed By: #### 2 [id number], [id number], [id number], [id number], [id number] ####[facility] [address] [place] [address] Heart and Vascular Office/Cl inic Noteon 10-21-2023 [...] with voice recognition artificial intelligence software, specifically xoompark, [employer] and or [employer]is. Substitutions may have occurred due to the inherent limitations of voice recognition and artificial intelligence software. ATTESTATION: Documentation services were performed after the patient or guardian consented to allow [employer] to record this visit. JOANN lab specialist and provider reviewed before signing. JOANN: [...] mg Tab, (more content not included)... Normal [facility] Comment on above: Result Comment: Elec tronically Signed By: Candy SOTELO, Glenn Holbrook\.br\Date and Time Signed: 10/21/23 09:36 EST\.br\Electronically Co-Signed By: Talya Camargo.br\Date and Time Co-Signed: 10/20/23 17:42 EST Consent for Treatmenton 10-09 Consent for Treatment [id number]#1.00TIFF [facility] Physician Orderon 10-20-2023 Physician Order [id number]#1.00TIFF Normal [facility] Stress EKG Tracingson 2023 Stress EKG Tracings [id number]#1.00TIFF Normal [facility] David 10-01-2023 L Specimen: [id number] Received: 10/02/23 Status: KARI Monroy Num: [id number] Spec Type: Surgical Subm Dr: Chay Castro Tissues: A Uterus w/ or w/o tubes ovaries except neoplastic or prolap (UTERUS) Procedures: HE/12, Gross/Micro L5 Age/ Patient Sex Location Account Attending Physician Azul Huertas 33/F LABELL [id number] Chay Castro SPEC NUM: [id number] RECD: 10/02/23 STATUS: KARI MONROY NUM: [id number] GAURI: 10/01/[address]: Chay Castro ENTERED: 10/02/[address] [facility] [address]: Tri,Lab SPEC TYPE: Surgical DEPT: SHAQUILLE [...] prominent trabeculation and no well-circumscribed nodules identified. [employer] P[employer] Outseamer sections are submitted in 4 cassettes as follows: A1 - Posterior cul-de-sac serosa with dull red-brown serosal focus A2 - Anterior and posterior cervix A3 - Anterior endomyometrium A4 - Posterior endomyometrium Specimen: [id number] Received: 10/02/23 Status: KARI Monroy Num: [id number] Spec Type: Surgical Subm Dr: Chay Castro Tissues: A Uterus w/ or w/o tubes ovaries except neoplastic or prolap (UTERUS) Procedures: , Gross/Micro L5 Patient: Azul Huertas [id number] (Continued) Specimen: [id number] Received: 10/02/23 (Continued) Signed (signature on file) Alexi Mclaughlin MD 10/04/23 1139 Specimen: [id number] Received: 10/02/23 Status: KARI Monroy Num: [id number] Spec Type: Surgical Subm Dr: Chay Castro Tissues: A Uterus w/ or w/o tubes ovaries except neoplastic or prolap (UTERUS) Procedures: , Gross/Micro L5 Patient: Azul Huertas [id number] (Continued) Specimen: [id number] Received: 10/02/23 (Continued) CPT Codes 04256 Specimen: [id number] Received: 10/02/23-1320 Status: KARI Monroy Num: [id number] Spec Type: Surgical Subm Dr: Chay Castro Tissues: A Uterus w/ or w/o tubes ovaries except neoplastic or prolap (UTERUS) Procedures: , Gross/Micro L5 Patient: Azul Huertas [id number] (Continued) Signed (signature on file) Alexi Mclaughlin MD 10/04/[address] [facility] Echocardiographyon Echocardiography [id number]#1.00TIFF [facility] Consent for Treatmenton 09-08 Consent for Treatment [id number]#1.00TIFF [facility] Insurance Correspondenceon 10-23-2022 Insurance Correspondence [id number]#1.00TIFF [facility] Auth for Release of Medical Recordson 08-20-2023 Auth for Release of Medical Records [id number]#1.00TIFF [facility] Ambulatory Visit Summaryon 1 10-16-2022 Ambulatory Visit Summary AZUL SERRANO :1990 Visit Date:08/15/2023 Ambulatory Visit Instructions Your [...] for choosing us for your care. Eli Crandall [facility] General Surgery Office/Clini c Noteon 08-15-2023 [...] with voice recognition artificial intelligence software, specifically xoompark, [employer] and or [employer]. Substitutions may have occurred voice recognition and artificial intelligence software. Documentation services were performed after patient or guardian consented to allow [employer] to record this visit. JOANN lab specialist and provider reviewed before signing. JOANN: [...] Brother. Hypertensio (more content not included)... Normal [facility] Comment on above: Result Comment: Elec tronically [...] 3 days after surgery She finished the [place] yesterday and states the pain is unbearable She states she's added Motrin 800 mg every 12 hours and Tylenol 400 mg every 6 hours History of Present Illness Azul Llanos Tiffany is a 33-year-old female status post robotic [...] with voice recognition artificial intelligence software, specifically xoompark, [employer] and or [employer]. Substitutions may have occurred voice recognition and artificial intelligence software. Documentation services were performed after patient or guardian consented to allow [employer] to record this visit. JOANN lab specialist and provider reviewed before signing. JOANN: [...] Instructions Percoce (more content not included)... Normal [facility] Comment on above: Result Comment: Elec tronically Signed By: Alonso SOTELO, Alexx E.\.br\Date and Time Signed: 08/15/23 10:54 EST\.br\Electronically Co-Signed By: Rosalva Sánchez\.min\Date and Time Co-Signed: 08/12/23 12:58 EST Heart [...] partial hysterectomy in 09/2023 as recommended by [facility]. The decision to assess her [...] abnormal for sinus rhythm and possible anterior GA, although I think it is probably not more likely as a lead issue. However, we will get her a stress echo to evaluate the shortness of breath and abnormal EKG. See her back for follow-up. Chest pain (R07.9: Chest pain, unspecified) Stress echo to evaluate Portions of this record may have been created with voice recognition artificial intelligence software, specifically [employer]oompark, [employer] and or [employer]. Substitutions may have occurred due to the inherent limitations of voice recognition and artificial intelligence software. Documentation services were performed after patient or guardian consented to allow [employer] to record this visit. JOANN lab specialist and provider reviewed before signing. JOANN: [...] tab(s), Oral, Da (more content not included)... [facility] Comment on above: Result Comment: Elec tronically Signed By: Candy SOTELO, Glenn Holbrook\.br\Date and Time Signed: 08/12/23 13:43 EST\.br\Electronically Co-Signed By: Scott Frederick\.br\Date and Time Co-Signed: 08/11/23 17:25 EST Consent for Treatmenton Consent for Treatment [id number]#1.00TIFF [facility] IntraOperative Documentson 1 10-12-2022 IntraOperative Documents [id number]#1.00TIFF [facility] Physician Orderon 08-11-2023 Physician Order [id number]#1.00TIFF [facility] Consent for Anesthesiaon Consent for Anesthesia [id number]#1.00TIFF [facility] Discharge Instructionson Discharge Instructions [id number]#1.00TIFF [facility] IntraOperative Documentson 1 10-07-2022 IntraOperative Documents [id number]#1.00TIFF [facility] Main OR Intraoperative Recor don 08-07-2023 Main OR Intraoperative Record IntraOp Document Type FT Summary Primary Physician: Alonso SOTELO, Alexx Dowling Finalized Date/Time: 08/07/23 13:39:28 Pt. Name: AZUL SERRANO /Sex: 1990 Female Med Rec #: [id number] Physician: Alexx Gupta MD Financial #: [id number] Pt. Type: A Room/Bed: [place] [address] Admit/Disch: 08/06/23 05:51:08 - 08/06/23 11:20:00 Institution: [...] Gupta MD, Natanael Sandoval RN Role Performed PROJ ENGINEER Surgeon - Primary Labor Custodian - Primary Time In 08/06/23 07:37:00 08/06/23 07:37:00 08/06/23 07:37:00 Time Out 08/06/23 09:24:00 08/06/23 09:04:00 08/06/23 09:24:00 Procedure CHOLECYSTECOMY ROBOT CHOLECYSTECOMY ROBOT CHOLECYSTECOMY ROBOT ASSISTED(.) ASSISTED(.) ASSISTED(.) Comments , anesthesia stationary engineer supervisor Last Modified By: Julianne Clark CST, RN, Natanael Falk RN 08/07/23 13:36:33 08/06/23 09:24:08 08/06/23 09:24:08 Entry 4 Entry 5 Case Attendee Emmanuelle Wilks James W Role Performed Scrub - Primary FUEL EFFICIENT AUTOMOBILE DESIGNER/SA Time In 08/06/23 07:37:00 08/06/23 07:37:00 Time [...] Sanderson CRNA, Given Participants Alexx Gupta MD, Santos SETHI, Efe Bob Madison A, Boyer, [...] and tissue Entry 1 Skin Integrity Intact, [place], Warm, and Skin Abnormality No Dry Outcomes [...] Position Supine (more content not included)... Normal [facility] Pre-Op Checkliston 3 Pre-Op Checklist [id number]#1.00TIFF Normal [facility] CHEMISTRYOrdered By: Lab ROP User on 08-06-2023 Glucose [Mass/Vol] 92 mg/dL Normal 55 - 99 mg/dL [facility] POC Subsection Comment on above: Result Comment: Lisa parish Meter POC Username COURTNEY DONOVAN Invalid Interpretation Code [facility] POC Subsection Sodium [Moles/Vol] [id number] mmol/L Invalid Interpretation Code [facility] POC Subsection Sodium [Moles/Vol] 743129799 mmol/L Invalid Interpretation Code [facility] POC Subsection Capillary Glucose POCon 07-10 Glucose [Mass/Vol] 92 mg/dL Normal 55-99 [facility] Comment on above: Result Comment: Lisa parish Meter Performed By: #### 2 [id number] #### [facility] [address] [place] [address] Consent for Treatmenton 07-10 Consent for Treatment [id number]#1.00TIFF Normal [facility] Discharge Instructionson Discharge Instructions AZUL SERRANO :1990 Visit Date:08/06/2023 Inpatient Discharge Instructions Your Care Team Admitting Physician - Alexx Gupta MD. Referring Physician - Alexx Gupta MD Reason [...] AM EST With: Alexx Gupta MD Where: [facility] General Surgery [facility] Comment on above: Result Comment: Elec tronically Signed By: Thelma SETHI, Courtney Rodriguez\.br\Date and Time Signed: 08/06/23 09:56 EST Discharge Instructions AZUL SERRANO :1990 Visit Date:08/06/2023 Inpatient Discharge Instructions Your [...] AM EST With: Alexx Gupta MD Where: [facility] General Surgery [facility] Comment on above: Result Comment: Elec tronically Signed By: Thelma SETHI, Courtney Rodriguez\.br\Date and Time Signed: 08/15/23 06:03 EST Discharge Instructions PRINCE KELLY ALLENNNJudd Rodriguez :1990 Visit Date:08/06/2023 Inpatient Discharge Instructions Your [...] AM EST With: Alexx Gupta MD Where: [facility] General Surgery [facility] Comment on above: Result Comment: Elec tronically Signed By: Thelma SETHI, Courtney Elena\Date and Time Signed: 08/15/23 06:03 EST Inpatient Patient Summaryon 08-06-2023 Inpatient Patient Summary [address] [address] [facility] Clinical Discharge Instructions PERSON INFORMATION Name: AZUL SERRANO [facility]#:[id number] PHYSICIANS Admitting Physician: Alexx Gupta MD Attending Physician: Alexx Gupta MD PCP: TEZ ANGEL MD Discharge Diagnosis: Comment: PATIENT EDUCATION INFORMATION Instructions: Minimally Invasive Cholecystectomy, Care After Medication Leaflets: Follow up: With: Address: When: Alexx Gupta [address] [place] [address], [facility] [address], [employer] [address] [place] [phone] [facility] (1) Comments: Appointment has already been scheduled Type Location Start [facility] Cardiology New Patient (FT) FT.Cardiology Clinic 08/11/2023 1:30 PM 08/11/2023 1:45 PM Confirmed GS Post Op 15 [facility] 08/15/2023 9:20 AM 08/15/2023 9:40 AM Confirmed MEDICATION LIST New Medications [facility], [address], [place] [id number], [phone] acetaminophen-oxycodone (Percocet 5 mg-325 mg oral tablet) [...] DAILY., Responsible Provider: Tez Angel Comment: Normal [facility] Main OR PACU I Recordon 07-10 Main OR PACU I Record PACU Phase I Document Type FT Summary Primary Physician: Alexx Gupta MD Finalized Date/Time: 08/06/23 10:10:38 Pt. Name: AZUL SERRANO/Sex: 1990 Female Med Rec #: [id number] Physician: Alexx Gupta MD Financial #: [id number] Pt. Type: A Room/Bed: [facility]/ Admit/Disch: 08/06/23 05:51:08 - Institution: Case Times [...] Signed By: Bia Perry RN 08/06/23 10:10 [facility] Main OR PACU II Recordon Main OR PACU II Record PACU Phase II Document Type FT Summary Primary Physician: Alexx Gupta MD Finalized Date/Time: 08/06/23 11:21:37 Pt. Name: AZUL SERRANO/Sex: 1990 Female Med Rec #: [id number] Physician: Alexx Gupta MD Financial #: [id number] Pt. Type: A Room/Bed: [facility] Admit/Disch: 08/06/23 05:51:08 - Institution: Case Times [...] By: Adeline Elizabeth RN 08/06/23 11:21 Normal [facility] Main OR Preoperative Recordo n 08-06-2023 Main OR Preoperative Record PreOp Document Type FT Summary Primary Physician: Alexx Gupta MD Finalized Date/Time: 08/06/23 08:10:54 Pt. Name: AZUL SERRANO Jennifer AyalaB./Sex: 1990 Female Med Rec #: [id number] Physician: Alexx Gupta MD Financial #: [id number] Pt. Type: A Room/Bed: [facility] Admit/Disch: 08/06/23 05:51:08 - Institution: Case Times [...] By: Natanael Graham RN 08/06/23 08:10 Normal [facility] Monitor Recordon 08-06-2023 Monitor Record [id number]#1.00TIFF Normal [facility] Operative Reporton 3 Operative Report Indication for Surge ry 33-year-old female with symptomatic cholelithiasis here for robotic cholecystectomy Preoperative Diagnosis CHOLELITHIASIS Postoperative Diagnosis CHOLELITHIASIS Operation CHOLECYSTECOMY ROBOT ASSISTED, ROBOT ASSISTED LAPAROSCOPIC CHOLECYSTECOMY, . Surgeon(s) Alexx Gupta MD (Surgeon - Primary) Entry Level Machine Operator Michael Anesthesia General Mauricio Chang Jr., DO (Mangle Catcher) Felicitas Sanderson CRNA (Other) Estimated Blood Loss [...] x2 Patient tolerated the procedure: yes Normal [facility] Comment on above: Result Comment: Elec tronically Signed By: Alexx Gupta MD\.br\Date and Time Signed: 08/06/23 09:40 EST Outpatient Surgery Discharge Instructionon 08-06-2023 Outpatient Surgery Discharge Instruction [place] [id number] Patient Discharge Instructions PERSON INFORMATION Name: AZUL SERRANO Date of : 1990 Current Date: 08/06/2023 09:34:08 PHYSICIANS Admitting Physician: Alexx Gupta MD Discharge Diagnosis: AZUL SERRANO has been given the following list of [...] Follow up: With: Address: When: Alexx Gupta [address] [place] [address], [address] [phone] Business (1) Comments: Appointment has already been scheduled Type Location Start [facility] Cardiology New Patient (FT) [facility]TCardiology Clinic 08/11/2023 1:30 PM 08/11/2023 1:45 PM Confirmed GS Post Op 15 [facility] 08/15/2023 9:20 AM 08/15/2023 9:40 AM [...] to serve you. Thank you for choosing [facility] HERE ARE THE MEDICATION CHANGES THAT OCCURRED DURING YOUR HOSPITAL STAY New Medications [facility], [address] [place] [id number], [phone] acetaminophen-oxycodone (Percocet 5 mg-325 mg oral tablet) [...] to care (more content not included)... Normal [facility] Patient Education - Texton 1 10-06-2022 Patient [...] these instructions at home: Medicines ? Take jnzr-cnq-ltgycga and prescription medicines only as told by [...] keep your urine pale yellow. ? Take jyzr-lpg-iiflyhk or prescription medicines. ? Eat foods that [...] and water are not available, use hand snake charmer. ? Change your dressing as told by [...] if yo (more content not included)... Normal [facility] Progress Note-Physicianon Progress Note-Physician Patient: AZUL SERRANO Age: 33 years Sex: Female : 1990 Associated Diagnoses: None Author: Mauricio Chang Jr., DO Postoperative Information Postoperative disposition: Postoperative disposition: Home. Optimetrix number: Optimetrix number [id number]. Anesthetic utilized: General. Physical Examination Vital Signs [...] Surgery Unit, and To home ). Normal [facility] Comment on above: Result Comment: Elec tronically Signed By: Mauricio Chang Jr., DO\.br\Date and Time Signed: 08/06/23 09:56 EST Progress Note-Physician Patient: AZUL SERRANO Age: 33 years Sex: Female : 1990 [...] 1 EA, Refill(s) 0, Prior to colonoscopy., [facility], 157.5, cm, 07/08/23 14:03:00 EDT, Height/Length Dosing, 129.5, kg, 07/08/23 14:03:00 EDT, Weight Dosing Protonix 40 mg Tab-DR: 40 mg = 1 tab(s), Oral, Daily, # 90 tab(s), Refills(s) 1, Pharmacy: [facility], 152.4, cm, 08/10/21 14:17:00 EST, Height/Length [...] list: All Problems Anemia / SNOMED CT 371824009 / Confirmed Anxiety / SNOMED CT 33849435 / Confirme (more content not included)... Normal [facility] Comment on above: Result Comment: Elec tronically Signed By: Mauricio Chang Jr., DO.min\Date and Time Signed: 08/06/23 07:29 EST Consent for Procedure/Surger yon 07-28-2023 Consent for Procedure/Surgery [id number]#1.00TIFF Normal [facility] Auto Diffon 07-25-2023 Basophils/100 WBC (Bld) 0.4 % Normal 0.0-2.0 [facility] Comment on above: Order Comment: Order Added by Discern Expert. Performed By: #### 2 [id number], [id number] ####[address] [address] Basophils/Leukocytes Auto (Bld) [Pure # fraction] 0.0 E9/L Normal 0.0-0.2 [facility] Comment on above: Order Comment: Order Added by Discern Expert. Performed By: #### 2 [id number], [id number] ####[address] [address] Eosinophils/100 WBC (Bld) 0.9 % Normal 0.0-8.0 [facility] Comment on above: Order Comment: Order Added by Discern Expert. Performed By: #### 2 260448, 1051819 ####[address] [address] Eosinophils/Leukocyt es Auto (Bld) [Pure # fraction] 0.0 E9/L Normal 0.0-0.5 [facility] Comment on above: Order Comment: Order Added by Discern Expert. Performed By: #### 2 282619, [id number] ####[address] [address] Lymphocytes/100 WBC (Bld) 29.0 % Normal 14.0-50.0 [facility] Comment on above: Order Comment: Order Added by Discern Expert. Performed By: #### 2 729411, [id number] ####[address] [address] Lymphocytes/Leukocyt es Auto (Bld) [Pure # fraction] 1.5 E9/L Normal 1.0-4.0 [facility] Comment on above: Order Comment: Order Added by Discern Expert. Performed By: #### 2 944167, [id number] ####[address] [place] [address] Monocytes/100 WBC (Bld) 8.4 % Normal 4.0-14.0 [facility] Comment on above: Order Comment: Order Added by Discern Expert. Performed By: #### 2 470705, 5624409 ####[address] [address] Monocytes/Leukocytes Auto (Bld) [Pure # fraction] 0.4 E9/L Normal 0.2-1.0 [facility] Comment on above: Order Comment: Order Added by Discern Expert. Performed By: #### 2 818647, [id number] ####[address] [address] Neutrophils/100 WBC (Bld) 61.3 % Normal 36.0-75.0 [facility] Comment on above: Order Comment: Order Added by Discern Expert. Performed By: #### 2 698607, 4117690 ####[address] [address] Neutrophils/Leukocyt es Auto (Bld) [Pure # fraction] 3.3 E9/L Normal 2.0-7.5 [facility] Comment on above: Order Comment: Order Added by Discern Expert. Performed By: #### 2 839859, 2985587 ####[address] [address] CBC w/ Auto Diffon 3 Erythrocyte distribution width (RBC) [Ratio] 12.9 % Normal 10.9-14.2 [facility] Comment on above: Performed By: #### 2 736182, 0057381 ####[address] [address] Hematocrit (Bld) [Volume fraction] 36.5 % Normal 34.0-46.0 [facility] Comment on above: Performed By: #### 2 189788, 9288154 ####[address] [address] Hemoglobin (Bld) [Mass/Vol] 12.1 g/dL Normal 12.0-16.0 [facility] Comment on above: Performed By: #### 2 972131, 7588778 ####[address] [address] MCH (RBC) [Entitic mass] 31.1 pg Normal 27.0-34.0 [facility] Comment on above: Performed By: #### 2 426831, 3169212 ####[address] [address] MCHC (RBC) [Mass/Vol] 33.3 g/dL Normal 31.4-36.0 [facility] Comment on above: Performed By: #### 2 819058, 4470593 ####[address] [address] MCV (RBC) [Entitic vol] 93.3 fL Normal 80.0-100.0 [facility] Comment on above: Performed By: #### 2 588656, 5907782 ####[address] [address] Platelet mean volume (Bld) [Entitic vol] 8.6 fL Normal 6.4-10.8 [facility] Comment on above: Performed By: #### 2 715360, 2415951 ####[address] [address] Platelets (Bld) [#/Vol] 227.0 E9/L Normal 150.0-500. 0 [facility] Comment on above: Performed By: #### 2 998026, 6332894 ####[address] [address] RBC (Bld) [#/Vol] 3.9 E12/L Low 4.3-5.9 [facility] Comment on above: Performed By: #### 2 803930, 8084327 ####[address] [address] WBC corrected for nucl RBC Auto (Bld) [#/Vol] 5.3 E9/L Normal 4.0-11.0 [facility] Comment on above: Performed By: #### 2 921985, [id number] ####[facility] [address] [place] [address] CT Maxillofacial w/o Contras ton 07-25-2023 CT [...] Latasha Arciniega MD Transcribed by: KARL Technologist: BARBARA Benitez [facility] Consent for Treatmenton 07-09 Consent for Treatment [id number]#1.00TIFF Normal [facility] HEMATOLOGYOrdered By: SYSTEM SYSTEM on 07-25-2023 Basophils/100 [...] 3.9 E12/L Low 4.3 - 5.9 E12/L [facility] HemeAutoSS WBC corrected for nucl RBC Auto (Bld) [#/Vol] 5.3 E9/L Normal 4.0 - 11.0 E9/L [facility] HemeAutoSS Consent for Treatmenton 07-09 Consent for Treatment [id number]#1.00TIFF Normal [facility] Consent for Procedure/Surger yon 07-23-2023 Consent for Procedure/Surgery [id number]#1.00TIFF Normal [facility] Insurance Correspondenceon 09-21-2022 Insurance Correspondence [id number]#1.00TIFF Normal [facility] Ambulatory Visit Summaryon 09-20-2022 Ambulatory Visit Summary PRINCE KELLY ALLENNNJudd Rodriguez :1990 Visit Date:07/21/2023 Ambulatory Visit Instructions Your [...] EST With: Alonso SOTELO, Alexx Dowling Where: [facility] General Surgery Imbler Normal [facility] General Surgery Office/Clini c Noteon 07-21-2023 General Surgery Office/Clinic Note Chief Complaint RUQ pain HPI Staff BANQUET STEWARDESS 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 female here [...] with voice recognition artificial intelligence software, specifically [employer], [employer] and or [employer]. Substitutions may have occurred voice recognition and artificial intelligence software. Documentation services were performed after patient or guardian consented to allow [employer] to record this visit. JOANN lab specialist and provider reviewed before signing. JOANN: Rosalvaesther Sánchez Follow-up No qualifying data available Patient [...] unknown Tobacco (more content not included)... Normal [facility] Comment on above: Result Comment: Elec tronically [...] ovarian syndrome (PCOS). ? Binge-eating disorder. ? [place] syndrome. ? Taking certain medicines, such as [...] food choices, such as grocery stores and [employer] markets. What are the signs or symptoms? [...] you have to (more content not included)... [facility] Insurance Correspondenceon 1 09-15-2022 Insurance Correspondence [id number]#[id number] [facility] Physician Orderon 07-16-2023 Physician Order [id number]#[id number] [facility] US Gallbladderon 07-15-2023 US Gallbladder Exam Date/Time: [...] Transcribed by: KARL Technologist: SERAFIN [facility] Consent for Treatmenton Consent for Treatment [id number]#[id number] [facility] Ambulatory Visit Summaryon 1 Ambulatory Visit Summary AZUL SERRANO :1990 Visit Date:07/08/2023 Ambulatory Visit Instructions Your [...] Abdominal pain, No, Epigastric abdominal pain Normal [facility] Gastroenterology Office/Clin ic Noteon 07-08-2023 Gastroenterology Office/Clinic Note Chief Complaint Upper abdominal pain and pain when breathing. HPI Staff This is a 32 year old female who presents today for a follow up from [facility] ER on 06/23/23, for complaints of GERD/ gastritis. Dr Angel referred patient to for gallbladder. History of Present Illness Patient is a 32-year-old female who presents for follow-up from ED visit 06/23/2023 at [facility] ED. Presents with female visitor today. Review [...] father, diagnosed in his 30s and hx. GA at age early 40s, reports her father [...] She explains she used to drink alcohol [id number]: 3 cans of beer and 1/2 gallon [...] Ordered EGD. Ordered: EGD Endoscopy (Hospital Procedure) [facility] Internal Ambulatory Referral US Gallbladder 2. Nausea [...] Ordered EGD. Ordered: EGD Endoscopy (Hospital Procedure) [facility] Internal Ambulatory Referral US Gallbladder 3. Irregular [...] in c (more content not included)... Normal [facility] Comment on above: Result Comment: Elec tronically [...] added (diluted fruit juice). ? Eat bland, xnxh-ae-rhjvtb foods in small amounts as you are able. These foods include bananas, applesauce, rice, lean meats, toast, and crackers. ? Avoid drinking fluids that contain a lot of sugar or caffeine, such as energy drinks, sports drinks, and soda. ? Avoid alcohol. ? Avoid spicy or fatty foods. General instructions ? Take pdgv-djn-dtuqfqk and prescription medicines only as told by [...] and water are not available, use hand snake charmer. ? Make sure that everyone in your [...] recommendations for eating and drinking and take rasp-bla-xzstzka and prescription medicines only as told by [...] provider. Document Revised: 03/01/2022 Document Reviewed: 03/01/2022 [email or web address] Patient Education ? 2022 [employer]. Normal [facility] Reminderson 07-08-2023 Reminders - From: Zoya Deal To: [facility] - Reminders/Recalls; Sent: 07/08/2023 14:50:43 EDT Show up: 07/08/2023 14:51:00 EDT Subject: Ambulatory Reminder [place] Reminder/Recall call pt and schedule EGD and Colon with Dr. Patino once Medicaid [place] has been approved. Normal [facility] CHEMISTRYOrdered By: SYSTEM SYSTEM on 06-23-2023 Albumin [...] 68 mL/min/1.73 m2 Normal >=59mL/min /1.73 m2 [facility] Chem S Comment on above: Interpretive Data: [...] Low 135 - 145 mmol/L FT [facility] HEMATOLOGYOrdered By: SYSTEM SYSTEM on 06-23-2023 [...] hCG Ql Negative (06/23/23 10:07 AM) Normal [facility] URINALYSISOrdered By: Dinorah Randle on [...] AM) Normal Negative [facility] UA Auto SS [place].plasma/Lithi um.RBC (Bld) [Mass ratio] >75 /HPF Invalid [...] [facility] UA Auto SS Urobilinogen Qn (U) 0.7978840 {Stevenson'U}/dL Normal 0.0 - 1.0 EU/dL [facility] UA Auto SS WBC Auto Ql (U) Negative (06/23/23 11:23 AM) Normal Negative [facility] UA Auto SS WBC LM.HPF (Urine sed) [#/Area] 0-5 /HPF Normal 0-5/HPF [facility] UA Auto SS TSHon 01-09-2023 TSH 1.192 uIU/mL Normal 0.358-3.74 0 [facility] Comment on above: Performed By: #### T SH #### [facility] [address] [place] [address] Dr. Gage Mathis PAP ACOG PANEL 2: 30 to 65on 01-08-2023 . . [facility] Comment on above: Result Comment: Perf ormed at: WB Performed By: #### L IVER, LIPID, TSH, FT3, BMP #### [facility] [address] [address] [address] Gage Mathis Age Gdln ACOG Testing 30-65 Normal [facility] Comment on above: Performed By: #### L IVER, LIPID, TSH, FT3, BMP #### [facility] [address] [address] [address] Gage Mathis DIAGNOSIS: Comment [facility] Comment on above: Result Comment: NEGA TIVE FOR INTRAEPITHELIAL LESION OR MALIGNANCY. THIS SPECIMEN WAS RESCREENED PART OF OUR SAWYER CORK SLABS PROGRAM. Performed at: WB Performed By: #### L IVER, LIPID, TSH, FT3, BMP #### [facility] [address] [place] [address] Dr. Gage Mathis HPV Aptima Negative Normal Negative [facility] Comment on above: Result Comment: This nucleic acid amplification test detects fourteen high-risk HPV types (16,18,31,33,35,39,45,51,52,56,58,59,66,68) without differentiation. Performed at: =G Performed By: #### L IVER, LIPID, TSH, FT3, BMP #### [facility] [address] [address] [address] Gage Mathis HPV Genotype Reflex Comment Normal [facility] Comment on above: Result Comment: Crit eria not met, HPV Genotype not performed. Performed at: WB Performed By: #### L IVER, LIPID, TSH, FT3, BMP #### [facility] [address] [address] [address] Gage Mathis Methodology: Comment Normal [facility] Comment on above: Result Comment: This liquid based ThinPrep(R) pap test was screened with the use of an image guided system. Performed at: WB Performed By: #### L IVER, LIPID, TSH, FT3, BMP #### [facility] [address] [address] [address] Gage Mathis Note: Comment Normal [facility] Comment on above: Result Comment: The [...] L IVER, LIPID, TSH, FT3, BMP #### [facility] [address] [address] [address] Gage Mathis Performed by: Comment Normal [facility] Comment on above: Result Comment: Zoya Davis, Customer Complaint Clerk (ASCP) Performed at: WB Performed By: #### L IVER, LIPID, TSH, FT3, BMP #### [facility] [address] [address] [address] Gage Mathis QC reviewed by: Comment Normal [facility] Comment on above: Result Comment: Clotilde rah Suresh, Supervisory Customer Complaint Clerk (ASCP) Performed at: WB Performed By: #### L IVER, LIPID, TSH, FT3, BMP #### [facility] [address] [place] [address] Dr. Gage Mathis Specimen adequacy: Comment Normal [facility] Comment on above: Result Comment: Sati sfactory for evaluation. Endocervical and/or squamous metaplastic cells (endocervical component) are present. Performed at: WB Performed By: #### L IVER, LIPID, TSH, FT3, BMP #### [facility] [address] [place] [address] Dr. Gage Mathis CBC AUTO DIFFon 12-04-2022 BASO # 0.0 103/ul Normal 0.0-0.1 [facility] Comment on above: Performed By: #### L IVER, LIPID, TSH, FT3, BMP #### [facility] [address] [place] [address] Dr. Gage Mathis Basophils/100 WBC (Bld) 0.4 % Normal 0.2-2.0 [facility] Comment on above: Performed By: #### L IVER, LIPID, TSH, FT3, BMP #### [facility] [address] [place] [address] Dr. Gage Mathis EO # 0.1 103/ul Normal 0.0-0.7 [facility] Comment on above: Performed By: #### L IVER, LIPID, TSH, FT3, BMP #### [facility] [address] [place] [address] Dr. Gage Mathis Eosinophils/100 WBC (Bld) 1.3 % Normal 0.9-7.0 [facility] Comment on above: Performed By: #### L IVER, LIPID, TSH, FT3, BMP #### [facility] [address] [place] [address] Dr. Gage Mathis Erythrocyte distribution width (RBC) [Ratio] 12.4 % Normal 11.0-15.0 [facility] Comment on above: Performed By: #### L IVER, LIPID, TSH, FT3, BMP #### [facility] [address] [place] [address] Dr. Gage Mathis Hematocrit (Bld) [Volume fraction] 37.1 % Normal 36.0-48.0 [facility] Comment on above: Performed By: #### L IVER, LIPID, TSH, FT3, BMP #### [facility] [address] [place] [address] Dr. Gage Mathis Hemoglobin (Bld) [Mass/Vol] 12.1 g/dL Normal 12.0-16.0 [facility] Comment on above: Performed By: #### L IVER, LIPID, TSH, FT3, BMP #### [facility] [address] [place] [address] Dr. Gage Mathis IG # 0.01 10e3/ul Normal 0.00-0.03 [facility] Comment on above: Performed By: #### L IVER, LIPID, TSH, FT3, BMP #### [facility] [address] [place] [address] Dr. Gage Mathis IG % 0.2 % Normal 0.0-0.5 [facility] Comment on above: Performed By: #### L IVER, LIPID, TSH, FT3, BMP #### [facility] [address] [place] [address] Dr. Gage Mathis LYMPH # 1.6 103/ul Normal 1.2-3.8 [facility] Comment on above: Performed By: #### L IVER, LIPID, TSH, FT3, BMP #### [facility] [address] [place] [address] Dr. Gage Mathis Lymphocytes/100 WBC (Bld) 30.6 % Normal 20.5-60.0 [facility] Comment on above: Performed By: #### L IVER, LIPID, TSH, FT3, BMP #### [facility] [address] [place] [address] Dr. Gage Mathis MANUAL DIFF REQ NO Normal [facility] Comment on above: Performed By: #### L IVER, LIPID, TSH, FT3, BMP #### [facility] [address] [place] [address] Dr. Gage Mathis MCH (RBC) [Entitic mass] 31.8 pg Normal 26.7-34.0 [facility] Comment on above: Performed By: #### L IVER, LIPID, TSH, FT3, BMP #### [facility] [address] [place] [address] Dr. Gage Mathis MCHC (RBC) [Mass/Vol] 32.6 g/dL Normal 29.9-35.2 [facility] Comment on above: Performed By: #### L IVER, LIPID, TSH, FT3, BMP #### [facility] [address] [place] [address] Dr. Gage Mathis MCV (RBC) [Entitic vol] 97.4 fL Normal 81.0-99.0 [facility] Comment on above: Performed By: #### L IVER, LIPID, TSH, FT3, BMP #### [facility] [address] [place] [address] Dr. Gage Mathis MONO # 0.4 103/ul Normal 0.3-0.8 [facility] Comment on above: Performed By: #### L IVER, LIPID, TSH, FT3, BMP #### [facility] [address] [place] [address] Dr. Gage Mathis Monocytes/100 WBC (Bld) 8.4 % Normal 1.7-12.0 [facility] Comment on above: Performed By: #### L IVER, LIPID, TSH, FT3, BMP #### [facility] [address] [place] [address] Dr. Gage Mathis NEUT # 3.1 103/ul Normal 1.4-6.5 [facility] Comment on above: Performed By: #### L IVER, LIPID, TSH, FT3, BMP #### [facility] [address] [place] [address] Dr. Gage Mathis Neutrophils/100 WBC (Bld) 59.1 % Normal 43.0-75.0 [facility] Comment on above: Performed By: #### L IVER, LIPID, TSH, FT3, BMP #### [facility] [address] [address] [address] Gage Mathis Platelet mean volume (Bld) [Entitic vol] 10.1 fL Normal 9.5-13.5 [facility] Comment on above: Performed By: #### L IVER, LIPID, TSH, FT3, BMP #### [facility] [address] [address] [address] Gage Mathis PLT 205 103/ul Normal 150-450 [facility] Comment on above: Performed By: #### L IVER, LIPID, TSH, FT3, BMP #### [facility] [address] [address] [address] Gage Mathis RBC 3.81 106/ul Critically low 4.20-5.40 [facility] Comment on above: Performed By: #### L IVER, LIPID, TSH, FT3, BMP #### [facility] [address] [place] [address] Dr. Gage Mathis WBC 5.2 103/ul Normal 4.0-11.0 [facility] Comment on above: Performed By: #### L IVER, LIPID, TSH, FT3, BMP #### [facility] [address] [place] [address] Dr. Gage Mathis FREE T4on 12-04-2022 Free T4 [Mass/Vol] 0.98 ng/dL Normal 0.76-1.46 [facility] Comment on above: Performed By: #### L IVER, LIPID, TSH, FT3, BMP #### [facility] [address] [place] [address] Dr. Gage Mathis GLYCOHEMOGLOBIN A1Con 2022 ADA RECOMMENDATION SEE BELOW Normal [facility] Comment on above: Result Comment: ADA RECOMMENDED LIMIT 4.0 - 6.0 ADA THERAPEUTIC TARGET < 7.0 ACTION SUGGESTED > 7.0 Performed By: #### L IVER, LIPID, TSH, FT3, BMP #### [facility] [address] [place] [address] Dr. Gage Mathis Glucose [Mass/Vol] 100 mg/dL Normal [facility] Comment on above: Performed By: #### L IVER, LIPID, TSH, FT3, BMP #### [facility] [address] [place] [address] Dr. Gage Mathis HbA1c (Bld) [Mass fraction] 5.1 % Normal 4.5-6.2 [facility] Comment on above: Performed By: #### L IVER, LIPID, TSH, FT3, BMP #### [facility] [address] [place] [address] Dr. Gage Mathis PREG QUANT HCGon 12-04-2022 HCG QUANT <1 Normal [facility] Comment on above: Performed By: #### L IVER, LIPID, TSH, FT3, BMP #### [facility] [address] [place] [address] Dr. Gage Mathis HCG RANGE SEE BELOW Normal [facility] Comment on above: Result Comment: 5-50 0.2-1 WEEK 50-500 1-2 WEEKS 100-5,000 2-3 WEEKS 500-10,000 3-4 WEEKS 1,000-50,000 4-5 WEEKS 10,000-100,000 5-6 WEEKS 15,000-200,000 6-8 WEEKS 10,000-100,000 2-3 MONTHS Performed By: #### L IVER, LIPID, TSH, FT3, BMP #### [facility] [address] [place] [address] Dr. Gage Mathis PROTIMEon 12-04-2022 INR Coag (PPP) [Relative time] 0.94 {INR} Normal [facility] Comment on above: Performed By: #### L IVER, LIPID, TSH, FT3, BMP #### [facility] [address] [place] [address] Dr. Gage Mathis INR GUIDELINES SEE BELOW Normal [facility] Comment on above: Result Comment: KALEB RED INR: 2.0 - 3.0 CONDITIONS NOT LISTED BELOW 2.5 - 3.5 FOR PROSTHETIC HEART VALVE REPLACEMENT 2.5 - 3.5 RECURRENT THROMBOSIS Performed By: #### L IVER, LIPID, TSH, FT3, BMP #### [facility] [address] [place] [address] Dr. Gage Mathis PT Coag (PPP) [Time] 10.0 s Normal 9.0-11.6 [facility] Comment on above: Performed By: #### L IVER, LIPID, TSH, FT3, BMP #### [facility] [address] [place] [address] Dr. Gage Mathis PTTon 12-04-2022 aPTT Coag (Bld) [Time] 28.1 s Normal 22.3-36.2 [facility] Comment on above: Performed By: #### L IVER, LIPID, TSH, FT3, BMP #### [facility] [address] [place] [address] Dr. Gage Mathis TSHon 12-04-2022 TSH 4.110 uIU/mL Critically high 0.358-3.74 0 [facility] Comment on above: Performed By: #### L IVER, LIPID, TSH, FT3, BMP #### [facility] [address] [place] [address] Dr. Gage Mathis CBC AUTO DIFFon 10-09-2022 BASO # 0.0 103/ul Normal 0.0-0.1 [facility] Comment on above: Performed By: #### C BC #### [facility] [address] [place] [address] Dr. Gage Mathis Basophils/100 WBC (Bld) 0.1 % Critically low 0.2-2.0 [facility] Comment on above: Performed By: #### C BC #### [facility] [address] [place] [address] Dr. Gage Mathis EO # 0.0 103/ul Normal 0.0-0.7 [facility] Comment on above: Performed By: #### C BC #### [facility] [address] [place] [address] Dr. Gage Mathis Eosinophils/100 WBC (Bld) 0.0 % Critically low 0.9-7.0 [facility] Comment on above: Performed By: #### C BC #### [facility] [address] [place] [address] Dr. Gage Mathis Erythrocyte distribution width (RBC) [Ratio] 13.0 % Normal 11.0-15.0 [facility] Comment on above: Performed By: #### C BC #### [facility] [address] [place] [address] Dr. Gage Mathis Hematocrit (Bld) [Volume fraction] 38.6 % Normal 36.0-48.0 [facility] Comment on above: Performed By: #### C BC #### [facility] [address] [place] [address] Dr. Gage Mathis Hemoglobin (Bld) [Mass/Vol] 12.4 g/dL Normal 12.0-16.0 [facility] Comment on above: Performed By: #### C BC #### [facility] [address] [place] [address] Dr. Gage Mathis IG # 0.05 10e3/ul Critically high 0.00-0.03 [facility] Comment on above: Performed By: #### C BC #### [facility] [address] [place] [address] Dr. Gage Mathis IG % 0.5 % Normal 0.0-0.5 [facility] Comment on above: Performed By: #### C BC #### [facility] [address] [place] [address] Dr. Gage Mathis LYMPH # 2.8 103/ul Normal 1.2-3.8 [facility] Comment on above: Performed By: #### C BC #### [facility] [address] [place] [address] Dr. Gage Mathis Lymphocytes/100 WBC (Bld) 26.2 % Normal 20.5-60.0 [facility] Comment on above: Performed By: #### C BC #### [facility] [address] [place] [address] Dr. Gage Mathis MANUAL DIFF REQ NO Normal [facility] Comment on above: Performed By: #### C BC #### [facility] [address] [place] [address] Dr. Gage Mathis MCH (RBC) [Entitic mass] 32.0 pg Normal 26.7-34.0 [facility] Comment on above: Performed By: #### C BC #### [facility] [address] [place] [address] Dr. Gage Mathis MCHC (RBC) [Mass/Vol] 32.1 g/dL Normal 29.9-35.2 [facility] Comment on above: Performed By: #### C BC #### [facility] [address] [place] [address] Dr. Gage Mathis MCV (RBC) [Entitic vol] 99.5 fL Critically high 81.0-99.0 [facility] Comment on above: Performed By: #### C BC #### [facility] [address] [place] [address] Dr. Gage Mathis MONO # 0.6 103/ul Normal 0.3-0.8 [facility] Comment on above: Performed By: #### C BC #### [facility] [address] [place] [address] Dr. Gage Mathis Monocytes/100 WBC (Bld) 5.5 % Normal 1.7-12.0 [facility] Comment on above: Performed By: #### C BC #### [facility] [address] [place] [address] Dr. Gage Mathis NEUT # 7.1 103/ul Critically high 1.4-6.5 [facility] Comment on above: Performed By: #### C BC #### [facility] [address] [place] [address] Dr. Gage Mathis Neutrophils/100 WBC (Bld) 67.7 % Normal 43.0-75.0 [facility] Comment on above: Performed By: #### C BC #### [facility] [address] [place] [address] Dr. Gage Mathis Platelet mean volume (Bld) [Entitic vol] 10.0 fL Normal 9.5-13.5 [facility] Comment on above: Performed By: #### C BC #### [facility] [address] [place] [address] Dr. Gage Mathis PLT 271 103/ul Normal 150-450 [facility] Comment on above: Performed By: #### C BC #### [facility] [address] [place] [address] Dr. Gage Mathis RBC 3.88 106/ul Critically low 4.20-5.40 [facility] Comment on above: Performed By: #### C BC #### [facility] [address] [address] [address] Gage Mathis WBC 10.5 103/ul Normal 4.0-11.0 [facility] Comment on above: Performed By: #### C BC #### [facility] [address] [address] [address] Gage Mathis FREE T3on 10-09-2022 FREE T3 1.64 pg/mlL Critically low 2.18-3.98 [facility] Comment on above: Performed By: #### L IVER, LIPID, TSH, FT3, BMP #### [facility] [address] [place] [address] Dr. Gage Mathis FREE T4on 10-09-2022 Free T4 [Mass/Vol] 1.01 ng/dL Normal 0.76-1.46 [facility] Comment on above: Performed By: #### F T4 #### [facility] [address] [place] [address] Dr. Gage Mathis GLYCOHEMOGLOBIN A1Con 2022 ADA RECOMMENDATION SEE BELOW Normal [facility] Comment on above: Result Comment: ADA RECOMMENDED LIMIT 4.0 - 6.0 ADA THERAPEUTIC TARGET < 7.0 ACTION SUGGESTED > 7.0 Performed By: #### L IVER, LIPID, TSH, FT3, BMP #### [facility] [address] [place] [address] Dr. Gage Mathis Glucose [Mass/Vol] 100 mg/dL Normal [facility] Comment on above: Performed By: #### L IVER, LIPID, TSH, FT3, BMP #### [facility] [address] [place] [address] Dr. Gage Mathis HbA1c (Bld) [Mass fraction] 5.1 % Normal 4.5-6.2 [facility] Comment on above: Performed By: #### L IVER, LIPID, TSH, FT3, BMP #### [facility] [address] [place] [address] Dr. Gage Mathis LIPID PROFILEon 10-09-2022 CHOL-HDL RATIO NORM SEE BELOW Normal [facility] Comment on above: Result Comment: 3.3 - 4.4 LOW RISK 4.4 - 7.1 AVERAGE RISK 7.1 - 11.0 MODERATE RISK >11.0 HIGH RISK Performed By: #### L IVER, LIPID, TSH, FT3, BMP #### [facility] [address] [place] [address] Dr. Gage Mathis Cholesterol [Mass/Vol] 162 mg/dL Normal <=200 [facility] Comment on above: Performed By: #### L IVER, LIPID, TSH, FT3, BMP #### [facility] [address] [place] [address] Dr. Gage Mathis Cholesterol in HDL [Mass/Vol] 78 mg/dL Critically high 40-60 [facility] Comment on above: Performed By: #### L IVER, LIPID, TSH, FT3, BMP #### [facility] [address] [place] [address] Dr. Gage Mathis Cholesterol in LDL [Mass/Vol] 72.8 mg/dL Normal [facility] Comment on above: Performed By: #### L IVER, LIPID, TSH, FT3, BMP #### [facility] [address] [place] [address] Dr. Gage Mathis Cholesterol.total/Ch olesterol in HDL [Mass ratio] 2.1 {ratio} Normal [facility] Comment on above: Performed By: #### L IVER, LIPID, TSH, FT3, BMP #### [facility] [address] [place] [address] Dr. Gage Mathis HDL NORMAL > or = 60 mg/dl - LO W CARDIOVASCULAR RISK <40 mg/dl - HIGH CARDIOVASCULAR RISK Normal [facility] Comment on above: Performed By: #### L IVER, LIPID, TSH, FT3, BMP #### [facility] [address] [address] [address] Gage Mathis LDL CALC NORMAL SEE BELOW Normal [facility] Comment on above: Result Comment: <100 mg/dl OPTIMAL 100 - 129 mg/dl NEAR OR ABOVE OPTIMAL 130 - 159 mg/dl BORDERLINE HIGH 160 - 189 mg/dl HIGH >190 mg/dl VERY HIGH Performed By: #### L IVER, LIPID, TSH, FT3, BMP #### [facility] [address] [address] [address] Gage Mathis Triglyceride [Mass/Vol] 56 mg/dL Normal <=150 [facility] Comment on above: Performed By: #### L IVER, LIPID, TSH, FT3, BMP #### [facility] [address] [address] [address] Gage Mathis VLDL CALC 11.2 mg/dL Normal [facility] Comment on above: Performed By: #### L IVER, LIPID, TSH, FT3, BMP #### [facility] [address] [address] [address] Gage Mathis LIVER PROFILEon 10-09-2022 Albumin [Mass/Vol] 3.2 g/dL Critically low 3.4-5.0 Th [facility] Comment on above: Performed By: #### L IVER, LIPID, TSH, FT3, BMP #### [facility] [address] [address] [address] Gage Mathis Albumin/Globulin [Mass ratio] 0.9 {ratio} Normal [facility] Comment on above: Performed By: #### L IVER, LIPID, TSH, FT3, BMP #### [facility] [address] [address] [address] Gage Mathis ALP [Catalytic activity/Vol] 89 U/L Normal 46-116 [facility] Comment on above: Performed By: #### L IVER, LIPID, TSH, FT3, BMP #### [facility] [address] [address] [address] Gage Mathis ALT [Catalytic activity/Vol] 49 U/L Normal 14-59 [facility] Comment on above: Performed By: #### L IVER, LIPID, TSH, FT3, BMP #### [facility] [address] [place] [address] Dr. Gage Mathis AST [Catalytic activity/Vol] 15 U/L Normal 15-37 [facility] Comment on above: Performed By: #### L IVER, LIPID, TSH, FT3, BMP #### [facility] [address] [place] [address] Dr. Gage Mathis BILI, CONJUGATED 0.1 mg/dL Normal 0.0-0.2 [facility] Comment on above: Performed By: #### L IVER, LIPID, TSH, FT3, BMP #### [facility] [address] [place] [address] Dr. Gage Mathis Bilirubin [Mass/Vol] 0.3 mg/dL Normal 0.2-1.0 [facility] Comment on above: Performed By: #### L IVER, LIPID, TSH, FT3, BMP #### [facility] [address] [place] [address] Dr. Gage Mathis Globulin (S) [Mass/Vol] 3.7 g/dL Normal [facility] Comment on above: Performed By: #### L IVER, LIPID, TSH, FT3, BMP #### [facility] [address] [place] [address] Dr. Gage Mathis Protein [Mass/Vol] 6.9 g/dL Normal 6.4-8.2 [facility] Comment on above: Performed By: #### L IVER, LIPID, TSH, FT3, BMP #### [facility] [address] [place] [address] Dr. Gage Mathis PROF CHEM 8 (BAS METB)on Anion gap [Moles/Vol] 12.1 mmol/L Normal [facility] Comment on above: Performed By: #### L IVER, LIPID, TSH, FT3, BMP #### [facility] [address] [place] [address] Dr. Gage Mathis Calcium [Mass/Vol] 9.0 mg/dL Normal 8.5-10.1 [facility] Comment on above: Performed By: #### L IVER, LIPID, TSH, FT3, BMP #### [facility] [address] [address] [address] Gage Mathis Chloride [Moles/Vol] 104 mmol/L Normal 98-107 [facility] Comment on above: Performed By: #### L IVER, LIPID, TSH, FT3, BMP #### [facility] [address] [address] [address] Gage Mathis CO2 [Moles/Vol] 29.6 mmol/L Normal 21.0-32.0 [facility] Comment on above: Performed By: #### L IVER, LIPID, TSH, FT3, BMP #### [facility] [address] [place] [address] Dr. Gage Mathis Creatinine [Mass/Vol] 0.82 mg/dL Normal 0.55-1.02 [facility] Comment on above: Performed By: #### L IVER, LIPID, TSH, FT3, BMP #### [facility] [address] [place] [address] Dr. Gage Mathis EGFR-AF CONGOLESE >60 Normal >=60 [facility] Comment on above: Performed By: #### L IVER, LIPID, TSH, FT3, BMP #### [facility] [address] [place] [address] Dr. Gage Mathis EGFR-NON AF CONGOLESE >60 Normal >=60 [facility] Comment on above: Performed By: #### L IVER, LIPID, TSH, FT3, BMP #### [facility] [address] [place] [address] Dr. Gage Mathis Glucose [Mass/Vol] 92 mg/dL Normal 74-106 [facility] Comment on above: Performed By: #### L IVER, LIPID, TSH, FT3, BMP #### [facility] [address] [address] [address] Gage Mathis Potassium [Moles/Vol] 3.7 mmol/L Normal 3.5-5.1 [facility] Comment on above: Performed By: #### L IVER, LIPID, TSH, FT3, BMP #### [facility] [address] [place] [address] Dr. Gage Mathis Sodium [Moles/Vol] 142 mmol/L Normal 136-145 [facility] Comment on above: Performed By: #### L IVER, LIPID, TSH, FT3, BMP #### [facility] [address] [place] [address] Dr. Gage Mathis Urea nitrogen [Mass/Vol] 14.0 mg/dL Normal 7.0-18.0 [facility] Comment on above: Performed By: #### L IVER, LIPID, TSH, FT3, BMP #### [facility] [address] [place] [address] Dr. Gage Mathis Urea nitrogen/Creatinine [Mass ratio] 17.1 mg/mg Normal [facility] Comment on above: Performed By: #### L IVER, LIPID, TSH, FT3, BMP #### [facility] [address] [place] [address] Dr. Gage Mathis TSHon 10-09-2022 TSH 1.637 uIU/mL Normal 0.358-3.74 0 [facility] Comment on above: Performed By: #### L IVER, LIPID, TSH, FT3, BMP #### [facility] [address] [place] [address] Dr. Gage Mathis VITAMIN D 25 OHon 10-09-2022 VIT D 25-OH 41.1 ng/mL Normal [facility] Comment on above: Performed By: #### V ITAD #### [facility] [address] [place] [address] Dr. Gage Mathis VIT D RANGES SEE BELOW Normal [facility] Comment on above: Result Comment: <20 ng/mL Vit D deficient 20 - <30 ng/mL Vit D insufficient 30 - 100 ng/mL Vit D sufficient >100 ng/mL Potential Toxicity Performed By: #### V ITAD #### [facility] [address] [place] [address] Dr. Gage Mathis COVID/FLU RT-PCRon 3 SARS-CoV-2 (COVID-19) RNA EB+probe Ql (Unsp spec) Negative [employer] Other COVID/FLU RT-PCR Negative [facility] [employer] Other COVID Quick Testingon 2021 Result Negative [employer] Other US PELVIS AND TRANSVAGon US PELVIS [...] BING NOE Date: 2022-05-02 17:47 Normal [facility] CHLAMYDIA/GONOCOCCUS EB (SW AB/URINE/PAPon 04-11-2022 Chlamydia trachomatis, EB Negative Normal Negative [facility] Comment on above: Performed By: #### L IVER, LIPID, TSH, FT3, BMP #### [facility] [address] [address] [address] Gage Mathis Neisseria gonorrhoeae, EB Negative Normal Negative [facility] Comment on above: Performed By: #### L IVER, LIPID, TSH, FT3, BMP #### [facility] [address] [place], [place] [address] Dr. Gage Mathis VAGINITIS/VAGINOSIS DNA PROB Sincere 04-10-2022 Sol species Negative Normal Negative [facility] Comment on above: Performed By: #### V AGINT #### [facility] [address] [address] [address] Gage Mathis Gardnerella vaginalis Positive Abnormal Negative [facility] Comment on above: Performed By: #### V AGINT #### [facility] [address] [address] [address] Gaeg Mathis Trichomonas vaginalis Negative Normal Negative [facility] Comment on above: Performed By: #### V AGINT #### [facility] [address] [address] [address] Gage Mathis Basic Metabolic Panlon 08-06 Anion gap 3 molar conc 14 mmol/L Normal 9-18 [facility] Comment on above: Performed By: #### B MP, HFP ####[address] [address] [address] [phone] Calcium mass conc 9.2 mg/dL Normal 8.5-10.2 [facility] Comment on above: Performed By: #### B MP, HFP ####[facility] [phone] Chloride molar conc 103 mmol/L Normal 97-105 [facility] Comment on above: Performed By: #### B BRYANNA, HFP ####[facility] [phone] CO2 molar conc 24 mmol/L Normal 22-30 [facility] Comment on above: Performed By: #### B MP, HFP ####[facility] [address] [phone] Creatinine mass conc 0.83 mg/dL Normal 0.58-0.96 [facility] Comment on above: Performed By: #### B MP, HFP ####[facility] [address] [phone] eGFR- Amer. >60 Normal [facility] Comment on above: Performed By: #### B MP, HFP ####[facility] [place], [place] [phone] GFR/1.73 sq M predicted among non-blacks MDRD vol rate/area (S/P/Bld) mL/min/{1.73_m2} Normal [facility] Comment on above: Result Comment: eGFR [...] GFR. Performed By: #### B BRYANNA, HFP ####[address] [place], [place] [phone] Glucose mass conc 82 mg/dL Normal 74-99 [facility] Comment on above: Result Comment: The [place] Diabetes Association (ADA) provides guidance for cutoff [...] Standards of Medical Care in Diabetes 2016, [place] [employer] Association. Diabetes Care. 2016.39(Suppl 1). Performed By: #### B BRYANNA, HFP ####[address] [place], [place] [phone] Potassium molar conc 4.3 mmol/L Normal 3.7-5.1 [facility] Comment on above: Performed By: #### B BRYANNA, HFP ####[address] [place], [place] [phone] Sodium molar conc 141 mmol/L Normal 136-144 [facility] Comment on above: Performed By: #### B MP, HFP ####[facility] [place], [place] [phone] Urea nitrogen mass conc 14 mg/dL Normal 7-21 [facility] Comment on above: Performed By: #### B MP, HFP ####[facility] [place], [place] [phone] CNOVSPon 08-06-2018 CNOVSP Visit (SP) Office (HEMACL) AZUL SERRANO ([id number]) 1990 [facility] Gtpblxehxs89/29/18 3:30 PM SHANT ROMERO During your visit today, we recorded the following information about you: Temperature Pulse Respiration Blood pressure 98.8 degrees 87/minute 16/minute 128/77 Weight Height 123.2 kg 1.524 Kirstie Romero MD 08/06/2018 3:44 PM SignedHPDavina Allen is a 28 year old female who presents in follow up. Shewas referred to A as Dr Castro was considering BCP's. Her [...] 3).Alfred GH, et al. Chest 2012, 141:7S-47SNishjono FISCHER, et al. [facility] 2017, 70: 252-289 APTT 23.0 - 32.4 [...] oflaboratory APTT reagent in use throughout the [facility]. Platelet Neut Negative Negative Negative DRVVT Screen 32.7 - 46.7 sec 35.1 36.1 42.3 DRVVT Confirm Ratio <1.21 1.10 <1.21 class= rz_g [id number] >0.91 <1.21 class= rz_6 ihk7726 >1.06 DRVVT 1:1 Mix 32.7 - 46.7 sec 33.9 36.2 41.3 Hex Phase Screen 45.0 - 59.9 sec 34.7 54.5 Hex Phase Confirm 41.8 - 54.9 sec 32.6 47.7 Hex Phase Delta <9.1 delta sec 2.1 <9.1 delta sec class= rz_6 [id number] >6.7 APTT Screen 24.4 - 33.4 sec 24.3 33.0CM Immediate PTT 1:1 Mix <33.2 sec 26.3 <33.2 sec class= rz_6 [id number] >30.6 Incubated PTT 1:1 Mix <35.0 sec 28.3 <35.0 sec class= rz_6 [id number] >32.4 Thrombin Time <18.6 sec 17.7 <18.6 sec class= rz_6 [id number] >16.1 Interpretation(Lupus Anticoagulant) (NOTE) (NOTE)CMComment: Performing Pathologist: [...] GPL <9 <9CMComment: <10 GPL ? ? [id number] GPL ? Equivocal>40 GPL ? ? PositiveThe following results were obtained with the [employer] QUANTA Lite LAVON IgG IIIELISA. Cardiolipin IgG values obtained with the different manufacturers' assay?methods may not be used interchangeably. The magnitude of the reported IgGlevels cannot be correlated to an endpoint titer. Cardiolipin Ab, IgM 0 - 11 MPL <9 9CMComment: <12 MPL ? ? Qgqjbeqs79-64 MPL ? Equivocal>40 MPL ? ? PositiveThe following results were obtained with the [employer] QUANTA Lite LAVON IgM IIIELISA. Cardiolipin IgM values obtained with different manufacturers' assaymethods may not be used interchangeably. The magnitude of the reported IgMlevels cannot be correlated to an endpoint titer. Cardiolipin Ab, IgA 0 - 11 APL <9 <9CMComment: <12 APL ? ? Jurqhchg38-30 APL ? Equivocal>40 APL ? ? PositiveThe following results were obtained with an [employer] QUANTA Lite LAVON IgA IIIELISA. Cardiolipin IgA values obtained with different manufacturers' assaymethods may not be used interchangeably. The magnitude of the reported IgAlevels cannot be correlated to an endpoint titer. Beta 2 Glycoprotein, IgG <20 SGU <9 <20 SGU class= rz_6 kge6676 ><9CMComment: < 20 ?SGU ? ?Lnoisyuf94-55 SGU ? ?Low Positive> 80 ?SGU ? ?High PositiveThese results were obtained with the [employer] QUANTA Lite B2 GPI IgG DAYNA. B2GPI IgG values obtained with different manufacturers' assay methods may not be?used interchangeably. The magnitude of the reported IgG levels cannot becorrelated to an endpoint titer. Beta 2 Glycoprotein, IgM <20 SMU <9 <20 SMU class= rz_6 ope5654 ><9CMComment: < 20 ?SMU ? ?Bcpxipgq47-64 SMU ? ?Low Positive> 80 ?SMU ? ?High PositiveThese results were obtained with the [employer] QUANTA Lite B2 GPI IgM DAYNA. B2GPI IgM values obtained with different manufacturers' assay methods may not be?used interchangeably. The magnitude of the reported IgM levels cannot becorrelated to an endpoint titer.FACTOR V LEIDEN/PCROrder: [id number]: Final result ??Visible to patient: No (Not Released) Next appt: NoneDx: Positive dilute Idalia's viper venom...Component 3mo agoFactor V Leiden PCR Report (NOTE)Comment: Performing Pathologist: Alvina Sotomayor M.D., Ph.D.Factor V Leiden Mutation Result: NORMALHOMOCYSTEINEOrder: [id number]: Final result ??Visible to patient: No (Not Released) Next appt: NoneDx: Positive dilute Idalia's viper venom... Ref Range AND Units 3mo agoHomocysteine, Serum <15.1 umol/L 9.5Resulting Agency CCMSpecimen Collected: 04/20/18 ?2:22 PM Last Resulted: 04/21/18 ?1:31 PM LabFlowsheet Order Details View Encounter Lab and Collection Details RoutingResult HistoryOther Results from 04/20/2018FACTOR V LEIDEN/PCROrder: [id number]: Final result ??Visible to patient: No (Not [...] and Collection Details RoutingResult HistoryPROTHROMBIN GENE PCROrder: [id number]: Final result ??Visible to patient: No (Not Released) Next appt: NoneDx: Positive dilute Idalia's viper venom...Component 3mo agoPT Gene Report (NOTE)Comment: Performing Pathologist: Alvina Sotomayor M.D., Ph.D.PT Gene Mutation Result: NORMAL ?PT Gene Mutation Interpretation: The DNA sample is negative for [id number] point mutation in the 3' untranslated region [...] and Collection Details RoutingResult HistoryPROTEIN S CLOTTABLEOrder: [id number]: Final result ??Visible to patient: No (Not Released) Next appt: NoneDx: Positive dilute Idalia's viper venom... Ref Range AND Units 3mo agoProtein S Clottable 59 - 131 % 108Resulting Agency CCMSpecimen Collected: 04/20/18 ?2:22 PM Last Resulted: 04/21/18 ?9:13 AM LabFlowsheet Order Details View Encounter Lab and Collection Details RoutingResult HistoryPROTEIN C FUNCTOrder: [id number]: Final result ??Visible to patient: No (Not Released) Next appt: NoneDx: Positive dilute Idalia's viper venom... Ref Range AND Units 3mo agoPro C Fun 76 - 147 % 104Resulting Agency CCMSpecimen Collected: 04/20/18 ?2:22 PM Last Resulted: 04/21/18 ?9:13 AM LabFlowsheet Order Details View Encounter Lab and Collection Details RoutingResult HistoryANTITHROMBIN IIIOrder: [id number]: Final result ??Visible to patient: No (Not Released) Next appt: NoneDx: Positive dilute Idalia's viper venom... Ref Range AND Units 3mo agoAntithrombin Assay 84 - 138 % 93Resulting Agency CCMSpecimen Collected: 04/20/18 ?2:22 PM Last Resulted: 04/21/18 ?9:13 AM LabFlowsheet Order Details View Encounter Lab and Collection Details RoutingResult HistoryLUPUS ANTICOAG PLOrder: [id number]: Final result ??Visible to patient: No (Not [...] Chest 2012, 141:7S-47SNishimura RA, et al. [facility] 2017, 70: 252-289APTT 23.0 - 32.4 sec [...] oflaboratory APTT reagent in use throughout the [facility].Platelet Neut Negative NegativeDRVVT Screen 32.7 - 46.7 [...] 9 GPL <9Comment: <10 GPL ? ? Mwdkodfp24-38 GPL ? Equivocal>40 GPL ? ? PositiveThe following results were obtained with the [employer] QUANTA Lite LAVON IgG IIIELISA. Cardiolipin IgG values obtained with the different manufacturers' assay?methods may not be used interchangeably. The magnitude of the reported IgGlevels cannot be correlated to an endpoint titer.Cardiolipin Ab, IgM 0 - 11 MPL 9Comment: <12 MPL ? ? Wfwpwfle37-36 MPL ? Equivocal>40 MPL ? ? PositiveThe following results were obtained with the [employer] QUANTA Lite LAVON IgM IIIELISA. Cardiolipin IgM values obtained with different manufacturers' assaymethods may not be used interchangeably. The magnitude of the reported IgMlevels cannot be correlated to an endpoint titer.Cardiolipin Ab, IgA 0 - 11 APL <9Comment: <12 APL ? ? Gwrmncbj02-72 APL ? Equivocal>40 APL ? ? PositiveThe following results were obtained with an [employer] Lite LAVON IgA IIIELISA. Cardiolipin IgA values obtained with different manufacturers' assaymethods may not be used interchangeably. The magnitude of the reported IgAlevels cannot be correlated to an endpoint titer.Beta 2 Glycoprotein, IgG <20 SGU <9Comment: < 20 ?SGU ? ?Cpfknbae84-48 SGU ? ?Low Positive> 80 ?SGU ? ?High PositiveThese results were obtained with the [employer] Lite B2 GPI IgG DAYNA. B2GPI IgG values obtained with different manufacturers' assay methods may not be?used interchangeably. The magnitude of the reported IgG levels cannot becorrelated to an endpoint titer.Beta 2 Glycoprotein, IgM <20 SMU <9Comment: < 20 ?SMU ? ?Ceimddup68-69 SMU ? ?Low Positive> 80 ?SMU ? ?High PositiveThese results were obtained with the [employer] QUANTA Lite B2 GPI IgM DAYNA. B2GPI IgM values obtained with different manufacturers' assay methods may not be?used interchangeably. The magnitude of the reported IgM levels cannot becorrelated to an endpoint titer.Resulting Agency CCMSpecimen Collected: 04/20/18 ?2:22 PM Last Resulted: 04/21/18 ?6:40 PM LabFlowsheet Order Details View Encounter Lab and Collection Details RoutingResult HistoryANA PANEL BLOOD SCRNOrder: [id number]: Final result ??Visible to patient: No (Not [...] (k/uL)Date Value07/28/2018 193 ASSESSMENT/PL AN:1. 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 No indication for intervention needed.Shant Romero, MDReferring Provider: LATASHA HU [[id number]]Allergies As of Date: 08/06/2018 Noted Allergy ReactionIODINE [...] by SHANT ROMERO MD on 08/06/18 Normal [facility] Hepatic Functn Panelon 08-06 Albumin mass conc 4.2 g/dL Normal 3.9-4.9 [facility] Comment on above: Performed By: #### B BRYANNA, [facility] ####[facility] [place], [place] [phone] ALP enzyme act/vol 75 U/L Normal 34-123 [facility] Comment on above: Performed By: #### B BRYANNA, HFP ####[facility] [address] [place], [place] [phone] ALT enzyme act/vol 21 U/L Normal 7-38 [facility] Comment on above: Performed By: #### B BRYANNA, HFP ####[facility] [address] [place]CM[place], [place] [phone] AST enzyme act/vol 21 U/L Normal 13-35 [facility] Comment on above: Performed By: #### B BRYANNA, HFP ####[address] [phone] Bilirubin mass conc 0.3 mg/dL Normal 0.2-1.3 [facility] Comment on above: Performed By: #### B MP, HFP ####[address] [phone] Bilirubin,Conjugated <0.2 Normal <0.2 [facility] Comment on above: Performed By: #### B MP, HFP ####[address] [phone] Protein mass conc 7.3 g/dL Normal 6.3-8.0 [facility] Comment on above: Performed By: #### B MP, HFP ####[address] [phone] PROGRESSon 08-06-2018 Protein mass conc HNO ID: [id number] thor: Shant Quinonez: (none)Author Type: PhysicianType: Progress [...] al. Chest 2012, 141:7S-47SNishimlouise RA, et al. [facility] 2017, 70: 252-289 APTT 23.0 - 32.4 [...] lotoflaboratory APTT reagent in use throughout the [facility]. Platelet Neut Negative Negative Negative DRVVT Screen 32.7 - 46.7 sec 35.1 36.1 42.3 DRVVT Confirm Ratio <1.21 1.10 <1.21 class= rz_g [id number] >0.91 <1.21 class= rz_6 duu2919 >1.06 DRVVT 1:1 Mix 32.7 - 46.7 sec 33.9 36.2 41.3 Hex Phase Screen 45.0 - 59.9 sec 34.7 54.5 Hex Phase Confirm 41.8 - 54.9 sec 32.6 47.7 Hex Phase Delta <9.1 delta sec 2.1 <9.1 delta sec class= rz_6hlt1024 >6.7 APTT Screen 24.4 - 33.4 sec 24.3 33.0CM Immediate PTT 1:1 Mix <33.2 sec 26.3 <33.2 sec class= rz_6 edn3157 >30.6 Incubated PTT 1:1 Mix <35.0 sec 28.3 <35.0 sec class= rz_6 syu7035 >32.4 Thrombin Time <18.6 sec 17.7 <18.6 sec class= rz_6 imx8939 >16.1 Interpretation(Lupus Anticoagulant) (NOTE) (NOTE)CMComment: Performing Pathologist: [...] GPL <9 <9CMComment: <10 GPL ? ? [id number] GPL ? Equivocal>40 GPL ? ? PositiveThe following results were obtained with the [employer] QUANTA Lite LAVON IgG IIIELISA. Cardiolipin IgG values obtained with the different manufacturers'assay?method s may not be used interchangeably. The magnitude of the reportedIgGlevels cannot be correlated to an endpoint titer. Cardiolipin Ab, IgM 0 - 11 MPL <9 9CMComment: <12 MPL ? ? Emgnnjbp35-05 MPL ? Equivocal>40 MPL ? ? PositiveThe following results were obtained with the [employer] QUANTA Lite LAVON IgM IIIELISA. Cardiolipin IgM values obtained with different manufacturers' assaymethods may not be used interchangeably. The magnitude of the reported IgMlevels cannot be correlated to an endpoint titer. Cardiolipin Ab, IgA 0 - 11 APL <9 <9CMComment: <12 APL ? ? Zjhteqzr47-45 APL ? Equivocal>40 APL ? ? PositiveThe following results were obtained with an [employer] Lite LAVON IgA IIIELISA. Cardiolipin IgA values obtained with different manufacturers' assaymethods may not be used interchangeably. The magnitude of the reported IgAlevels cannot be correlated to an endpoint titer. Beta 2 Glycoprotein, IgG <20 SGU <9 <20 SGU class= rz_6 [id number] ><9CMComment: < 20 ?SGU ? ?Cdjbwpdr89-42 SGU ? ?Low Positive> 80 ?SGU ? ?High PositiveThese results were obtained with the [employer] QUANTA Lite B2 GPI IgG DAYNA.B2GPI IgG values obtained with different manufacturers' assay methods maynot be?used interchangeably. The magnitude of the reported IgG levels cannot becorrelated to an endpoint titer. Beta 2 Glycoprotein, IgM <20 SMU <9 <20 SMU class= rz_6 knr6085 ><9CMComment: < 20 ?SMU ? ?Abaiahcm09-06 SMU ? ?Low Positive> 80 ?SMU ? ?High PositiveThese results were obtained with the [employer] QUANTA Lite B2 GPI IgM DAYNA.B2GPI IgM values obtained with different manufacturers' assay methods maynot be?used interchangeably. The magnitude of the reported IgM levels cannot becorrelated to an endpoint titer.FACTOR V LEIDEN/PCROrder: [id number]: Final result ??Visible to patient: No (Not Released) Next appt:None Dx: Positive dilute Idalia's viper venom...Component 3mo agoFactor V Leiden PCR Report (NOTE)Comment: Performing Pathologist: Alvina Sotomayor M.D., Ph.D.Factor V Leiden Mutation Result: NORMALHOMOCYSTEINEOrder: [id number]: Final result ??Visible to patient: No (Not Released) Next appt:None Dx: Positive dilute Idalia's viper venom... Ref Range AND Units 3mo agoHomocysteine, Serum <15.1 umol/L 9.5Resulting Agency CCMSpecimen Collected: 04/20/18 ?2:22 PM Last Resulted: 04/21/18 ?1:31 PM LabFlowsheet Order Details View Encounter Lab and Collection Details RoutingResult HistoryOther Results from 04/20/2018FACTOR V LEIDEN/PCROrder: [id number]: Final result ??Visible to patient: No (Not [...] and Collection Details RoutingResult HistoryPROTHROMBIN GENE PCROrder: [id number]: Final result ??Visible to patient: No (Not Released) Next appt:None Dx: Positive dilute Idalia's viper venom...Component 3mo agoPT Gene Report (NOTE)Comment: Performing Pathologist: Alvina Sotomayor M.D., Ph.D.PT Gene Mutation Result: NORMAL ?PT Gene Mutation Interpretation: The DNA sample is negative for [id number] point mutation in the 3' untranslated region [...] and Collection Details RoutingResult HistoryPROTEIN S CLOTTABLEOrder: [id number]: Final result ??Visible to patient: No (Not Released) Next appt:None Dx: Positive dilute Idalia's viper venom... Ref Range AND Units 3mo agoProtein S Clottable 59 - 131 % 108Resulting Agency CCMSpecimen Collected: 04/20/18 ?2:22 PM Last Resulted: 04/21/18 ?9:13 AM LabFlowsheet Order Details View Encounter Lab and Collection Details RoutingResult HistoryPROTEIN C FUNCTOrder: [id number]: Final result ??Visible to patient: No (Not Released) Next appt:None Dx: Positive dilute Idalia's viper venom... Ref Range AND Units 3mo agoPro C Fun 76 - 147 % 104Resultnew england s[facility] Agency [facility] Collected: 04/20/18 ?2:22 PM Last Resulted: 04/21/18 ?9:13 AM LabFlowsheet Order Details View Encounter Lab and Collection Details RoutingResult HistoryANTITHROMBIN IIIOrder: [id number]: Final result ??Visible to patient: No (Not Released) Next appt:None Dx: Positive dilute Idalia's viper venom... Ref Range AND Units 3mo agoAntithrombin Assay 84 - 138 % 93Resulting Agency [facility]pecimen Collected: 04/20/18 ?2:22 PM Last Resulted: 04/21/18 ?9:13 AM LabFlowsheet Order Details View Encounter Lab and Collection Details RoutingResult HistoryLUPUS ANTICOAG PLOrder: [id number]: Final result ??Visible to patient: No (Not [...] Chest 2012, 141:7S-47SNishimura RA, et al. [facility] 2017, 70: 252-289APTT 23.0 - 32.4 sec [...] lotoflaboratory APTT reagent in use throughout the [facility].Platelet Neut Negative NegativeDRVVT Screen 32.7 - 46.7 [...] 9 GPL <9Comment: <10 GPL ? ? [id number] GPL ? Equivocal>40 GPL ? ? PositiveThe following results were obtained with the [employer] QUANTA Lite LAVON IgG IIIELISA. Cardiolipin IgG values obtained with the different manufacturers'assay?method s may not be used interchangeably. The magnitude of the reportedIgGlevels cannot be correlated to an endpoint titer.Cardiolipin Ab, IgM 0 - 11 MPL 9Comment: <12 MPL ? ? Ewuvzhhe47-19 MPL ? Equivocal>40 MPL ? ? PositiveThe following results were obtained with the [employer] QUANTA Lite LAVON IgM IIIELISA. Cardiolipin IgM values obtained with different manufacturers' assaymethods may not be used interchangeably. The magnitude of the reported IgMlevels cannot be correlated to an endpoint titer.Cardiolipin Ab, IgA 0 - 11 APL <9Comment: <12 APL ? ? Gwbzeoxn38-32 APL ? Equivocal>40 APL ? ? PositiveThe following results were obtained with an [employer] QUANTA Lite LAVON IgA IIIELISA. Cardiolipin IgA values obtained with different manufacturers' assaymethods may not be used interchangeably. The magnitude of the reported IgAlevels cannot be correlated to an endpoint titer.Beta 2 Glycoprotein, IgG <20 SGU <9Comment: < 20 ?SGU ? ?Ghktsbxi75-34 SGU ? ?Low Positive> 80 ?SGU ? ?High PositiveThese results were obtained with the [employer] Lite B2 GPI IgG DAYNA.B2GPI IgG values obtained with different manufacturers' assay methods maynot be?used interchangeably. The magnitude of the reported IgG levels cannot becorrelated to an endpoint titer.Beta 2 Glycoprotein, IgM <20 SMU <9Comment: < 20 ?SMU ? ?Mczkfwck60-75 SMU ? ?Low Positive> 80 ?SMU ? ?High PositiveThese results were obtained with the [employer] QUANTA Lite B2 GPI IgM DAYNA.B2GPI IgM values obtained with different manufacturers' assay methods maynot be?used interchangeably. The magnitude of the reported IgM levels cannot becorrelated to an endpoint titer.Resulting Agency CCMSpecimen Collected: 04/20/18 ?2:22 PM Last Resulted: 04/21/18 ?6:40 PM LabFlowsheet Order Details View Encounter Lab and Collection Details RoutingResult HistoryANA PANEL BLOOD SCRNOrder: [id number]: Final result ??Visible to patient: No (Not [...] indication for intervention needed.Shant Romero MD Normal [facility] Remote Abs Gran + CBC (for F HC use only)on 08-06-2018 Absol Gran Count 3.97 k/uL Normal 1.45-7.50 [facility] Erythrocyte distribution width Auto Ratio (RBC) 12.1 % Normal 11.5-15.0 [facility] Hematocrit Auto Volume Fraction (Bld) 35.6 % Low 36.0-46.0 [facility] Hemoglobin mass conc (Bld) 11.6 g/dL Normal 11.5-15.5 [facility] MCH Auto Entitic mass (RBC) 31.1 pG Normal 26.0-34.0 [facility] MCHC Auto mass conc (RBC) 32.6 g/dL Normal 30.5-36.0 [facility] MCV Auto Entitic volume (RBC) 95.4 fL Normal 80.0-100.0 [facility] Platelet mean volume Auto Entitic volume (Bld) 10.4 fL Normal 9.0-12.7 [facility] Platelets Auto #/vol (Bld) 211 10*3/uL Normal 150-400 [facility] RBC Auto #/vol (Bld) 3.73 10*6/uL Low 3.90-5.20 [facility] WBC Auto #/vol (Bld) 6.52 10*3/uL Normal 3.70-11.00 [facility] Basic Metabolic Panlon 07-28 Anion gap 3 molar conc 10 mmol/L Normal 9-18 [facility] Calcium mass conc 9.3 mg/dL Normal 8.5-10.2 [facility] Chloride molar conc 104 mmol/L Normal 97-105 [facility] CO2 molar conc 23 mmol/L Normal 22-30 [facility] Creatinine mass conc 0.70 mg/dL Normal 0.58-0.96 [facility] eGFR- Amer. >60 Normal [facility] GFR/1.73 sq M predicted among non-blacks MDRD vol rate/area (S/P/Bld) mL/min/{1.73_m2} Normal [facility] Comment on above: Result Comment: eGFR [...] Glucose mass conc 101 mg/dL High 74-99 [facility] Potassium molar conc 4.0 mmol/L Normal 3.7-5.1 [facility] Sodium molar conc 137 mmol/L Normal 136-144 [facility] Urea nitrogen mass conc 12 mg/dL Normal 7-21 [facility] Hepatic Functn Panelon 07-28 Albumin mass conc 4.1 g/dL Normal 3.9-4.9 [facility] ALP enzyme act/vol 75 U/L Normal 34-123 [facility] ALT enzyme act/vol 16 U/L Normal 7-38 [facility] AST enzyme act/vol 14 U/L Normal 13-35 [facility] Bilirubin mass conc 0.3 mg/dL Normal 0.2-1.3 [facility] Bilirubin,Conjugated <0.2 Normal <0.2 [facility] Protein mass conc 7.2 g/dL Normal 6.3-8.0 [facility] Lupus Anticoag Panelon 07-28 aPTT Coag time (Bld) 24.3 s Low 24.4-33.4 [facility] Comment on above: Performed By: #### L UPUSP ####[facility] [address] [place], [place] [phone] aPTT Coag time (Bld) 26.3 s Normal <33.2 [facility] Comment on above: Performed By: #### L UPUSP ####[facility] [address] [place], [place] [phone] aPTT Coag time (Bld) 21.8 s Low 23.0-32.4 [facility] Comment on above: Result Comment: Unfr [...] laboratory APTT reagent in use throughout the [facility]. Performed By: #### L UPUSP ####[address] [phone] aPTT Coag time (Bld) 28.3 s Normal <35.0 [facility] Comment on above: Performed By: #### L UPUSP ####[address] [phone] Beta2 Glycoprot IgG <9 Normal <20 [facility] Comment on above: Result Comment: < 20 SGU Smdojdmn58-66 SGU Low Positive> 80 SGU High PositiveThese results were obtained with the [employer] QUANTA Lite B2 GPI IgG DAYNA. B2 GPI IgG values obtained with different manufacturers' assay methods may not be used interchangeably. The magnitude of the reported IgG levels cannot be correlated to an endpoint titer. Performed By: #### L UPUSP ####[place] [address] [place], [place] [phone] DRVVT 1:1 Mix 33.9 sec Normal 32.7-46.7 [facility] Comment on above: Performed By: #### L UPUSP ####[place] [address] [place], [place] [phone] DRVVT Confirm Ratio 1.10 Normal <1.21 [facility] Comment on above: Performed By: #### L UPUSP ####[facility] [place], [place] [phone] DRVVT Screen 35.1 sec Normal 32.7-46.7 [facility] Comment on above: Performed By: #### L UPUSP ####[facility] [place], [place] [phone] Hex Phase Confirm 32.6 sec Low 41.8-54.9 [facility] Comment on above: Performed By: #### L UPUSP ####[address] [phone] Hex Phase Delta 2.1 delta sec Normal <9.1 [facility] Comment on above: Performed By: #### L UPUSP ####[address] [phone] Hex Phase Screen 34.7 sec Low 45.0-59.9 [facility] Comment on above: Performed By: #### L UPUSP ####[address] [phone] IgA Cardiolipin Ab. <9 Normal 0-11 [facility] Comment on above: Result Comment: <12 APL Otcdshbd50-96 APL Equivocal>40 APL PositiveThe following results were obtained with an [employer] QUANTA Lite LAVON IgA III DAYNA. Cardiolipin IgA values obtained with different manufacturers' assay methods may not be used interchangeably. The magnitude of the reported IgA levels cannot be correlated to an endpoint titer. Performed By: #### L UPUSP ####[address] [phone] IgG Cardiolipin Ab. <9 Normal 0-9 [facility] Comment on above: Result Comment: <10 GPL Aniveuxj38-46 GPL Equivocal>40 GPL PositiveThe following results were obtained with the [employer] QUANTA Lite LAVON IgG III DAYNA. Cardiolipin IgG values obtained with the different manufacturers' assay methods may not be used interchangeably. The magnitude of the reported IgG levels cannot be correlated to an endpoint titer. Performed By: #### L UPUSP ####[facility] [place], [place] [phone] IgM Cardiolipin Ab. <9 Normal 0-11 [facility] Comment on above: Result Comment: <12 MPL Kezkvlqk76-54 MPL Equivocal>40 MPL PositiveThe following results were obtained with the [employer] Lite LAVON IgM III DAYNA. Cardiolipin IgM values obtained with different manufacturers' assay methods may not be used interchangeably. The magnitude of the reported IgM levels cannot be correlated to an endpoint titer. Performed By: #### L UPUSP ####[place] [address] [place], [place] [phone] INR Coag RelTime (Bld) 1.1 {INR} Normal 0.9-1.3 [facility] Comment on above: Result Comment: Maya min K Antagonist (VKA) Therapeutic Range: INR 2 to 3 (Target INR of 2.5)Note: For patients treated with VKA drugs, such as warfarin, the [employer] 2012 Guideline recommends [...] 141:7S-47SNishimlouise RA, et al. JACC 2017, 70: 252-289 Performed By: #### L UPUSP ####[facility] [place], [place] [phone] Interpretation (NOTE) Normal [facility] Comment on above: Result Comment: Perf [...] 74:1185 (1994). Performed By: #### L UPUSP ####[address] [phone] PNP Negative Normal Negative [facility] Comment on above: Performed By: #### L UPUSP ####[place] [address] [place], [place] [phone] Protein mass conc g/dL Normal <20 [facility] Comment on above: Result Comment: < 20 SMU Tvqpfxeq50-88 SMU Low Positive> 80 SMU High PositiveThese results were obtained with the [employer] QUANTA Lite B2 GPI IgM DAYNA. B2 GPI IgM values obtained with different manufacturers' assay methods may not be used interchangeably. The magnitude of the reported IgM levels cannot be correlated to an endpoint titer. Performed By: #### L UPUSP ####[place] [id number] [place], [place] [phone] PT Sec 11.2 sec Normal 9.7-13.0 [facility] Comment on above: Performed By: #### L UPUSP ####[facility] [address] [place], [place] [phone] Thrombin Time 17.7 sec Normal <18.6 [facility] Comment on above: Performed By: #### L UPUSP ####[facility] [place], [place] [phone] Remote Abs Gran + CBC (for F HC use only)on 07-28-2018 Absol Gran Count 4.19 k/uL Normal 1.45-7.50 [facility] Erythrocyte distribution width Auto Ratio (RBC) 12.4 % Normal 11.5-15.0 [facility] Hematocrit Auto Volume Fraction (Bld) 38.5 % Normal 36.0-46.0 [facility] Hemoglobin mass conc (Bld) 12.5 g/dL Normal 11.5-15.5 [facility] MCH Auto Entitic mass (RBC) 31.1 pG Normal 26.0-34.0 [facility] MCHC Auto mass conc (RBC) 32.5 g/dL Normal 30.5-36.0 [facility] MCV Auto Entitic volume (RBC) 95.8 fL Normal 80.0-100.0 [facility] Platelet mean volume Auto Entitic volume (Bld) 11.1 fL Normal 9.0-12.7 [facility] Platelets Auto #/vol (Bld) 193 10*3/uL Normal 150-400 [facility] RBC Auto #/vol (Bld) 4.02 10*6/uL Normal 3.90-5.20 [facility] WBC Auto #/vol (Bld) 6.67 10*3/uL Normal 3.70-11.00 [facility] Dilute RVVTon 07-08-2018 DRVVT 1:1 Mix 36.2 sec Normal 32.7-46.7 [facility] Comment on above: Performed By: #### D RVVT ####[facility] [place], [place] [phone] DRVVT Confirm Ratio 0.91 Normal <1.21 [facility] Comment on above: Performed By: #### D RVVT ####[place] [address] [place], [place] [phone] DRVVT Screen 36.1 sec Normal 32.7-46.7 [facility] Comment on above: Performed By: #### D RVVT ####[address] [phone] ROSANA Panel 1on 04-20-2018 ROSANA by EIA 0.4 OD Ratio Normal [facility] Comment on above: Result Comment: OD R atio is interpreted as follows:Negative <1.0Positive >=1.0 Performed By: #### W SR, PRCFUN, AT3ASY, PRSCLT, SERIMM, HOMCYS, IRON, FERR, B12, SERFOL, ANA1, HSCRP ####[address] [phone] ROSANA by EIA, Qual Negative Normal Negative [facility] Comment on above: Performed By: #### W SR, PRCFUN, AT3ASY, PRSCLT, SERIMM, HOMCYS, IRON, FERR, B12, SERFOL, ANA1, HSCRP ####[address] [phone] Antithrombin Assayon 018 Antithrombin Assay 93 % Normal 84-138 [facility] Comment on above: Performed By: #### W SR, PRCFUN, AT3ASY, PRSCLT, SERIMM, HOMCYS, IRON, FERR, B12, SERFOL, ANA1, HSCRP ####[place] [address] [place], [place] [phone] Comp Metabolic Panelon 04-20 Albumin mass conc 4.3 g/dL Normal 3.9-4.9 [facility] Comment on above: Performed By: #### W SR, PRCFUN, AT3ASY, PRSCLT, SERIMM, HOMCYS, IRON, FERR, B12, SERFOL, ANA1, HSCRP ####[place] [address] [place] [address] [place], [place] [phone] ALP enzyme act/vol 98 U/L Normal 32-117 [facility] Comment on above: Performed By: #### W SR, PRCFUN, AT3ASY, PRSCLT, SERIMM, HOMCYS, IRON, FERR, B12, SERFOL, ANA1, HSCRP ####[address] [place] [phone] ALT enzyme act/vol 13 U/L Normal 7-38 [facility] Comment on above: Performed By: #### W SR, PRCFUN, AT3ASY, PRSCLT, SERIMM, HOMCYS, IRON, FERR, B12, SERFOL, ANA1, HSCRP ####[place] [phone] Anion gap 3 molar conc 9 mmol/L Normal 9-18 [facility] Comment on above: Performed By: #### W SR, PRCFUN, AT3ASY, PRSCLT, SERIMM, HOMCYS, IRON, FERR, B12, SERFOL, ANA1, HSCRP ####[place] [phone] AST enzyme act/vol 14 U/L Normal 13-35 [facility] Comment on above: Performed By: #### W SR, PRCFUN, AT3ASY, PRSCLT, SERIMM, HOMCYS, IRON, FERR, B12, SERFOL, ANA1, HSCRP ####[place] [phone] Bilirubin mass conc 0.2 mg/dL Normal 0.2-1.3 [facility] Comment on above: Performed By: #### W SR, PRCFUN, AT3ASY, PRSCLT, SERIMM, HOMCYS, IRON, FERR, B12, SERFOL, ANA1, HSCRP ####[place] [phone] Calcium mass conc 9.2 mg/dL Normal 8.5-10.2 [facility] Comment on above: Performed By: #### W SR, PRCFUN, AT3ASY, PRSCLT, SERIMM, HOMCYS, IRON, FERR, B12, SERFOL, ANA1, HSCRP ####[place] [address] [place] [address] [place] [phone] Chloride molar conc 102 mmol/L Normal 97-105 [facility] Comment on above: Performed By: #### W SR, PRCFUN, AT3ASY, PRSCLT, SERIMM, HOMCYS, IRON, FERR, B12, SERFOL, ANA1, HSCRP ####[address] [place] [phone] CO2 molar conc 28 mmol/L Normal 22-30 [facility] Comment on above: Performed By: #### W SR, PRCFUN, AT3ASY, PRSCLT, SERIMM, HOMCYS, IRON, FERR, B12, SERFOL, ANA1, HSCRP ####[place] [address] [place] [phone] Creatinine mass conc 0.96 mg/dL Normal 0.58-0.96 [facility] Comment on above: Performed By: #### W SR, PRCFUN, AT3ASY, PRSCLT, SERIMM, HOMCYS, IRON, FERR, B12, SERFOL, ANA1, HSCRP ####[place] [address] [place] [phone] eGFR- Amer. >60 Normal [facility] Comment on above: Performed By: #### W SR, PRCFUN, AT3ASY, PRSCLT, SERIMM, HOMCYS, IRON, FERR, B12, SERFOL, ANA1, HSCRP ####[address] [place] [phone] GFR/1.73 sq M predicted among non-blacks MDRD vol rate/area (S/P/Bld) mL/min/{1.73_m2} Normal [facility] Comment on above: Result Comment: eGFR [...] IRON, FERR, B12, SERFOL, ANA1, HSCRP ####[address] [phone] Glucose mass conc 103 mg/dL High 74-99 [facility] Comment on above: Performed By: #### W SR, PRCFUN, AT3ASY, PRSCLT, SERIMM, HOMCYS, IRON, FERR, B12, SERFOL, ANA1, HSCRP ####[address] [phone] Potassium molar conc 3.9 mmol/L Normal 3.7-5.1 [facility] Comment on above: Performed By: #### W SR, PRCFUN, AT3ASY, PRSCLT, SERIMM, HOMCYS, IRON, FERR, B12, SERFOL, ANA1, HSCRP ####[address] [phone] Protein mass conc 7.2 g/dL Normal 6.3-8.0 [facility] Comment on above: Performed By: #### W SR, PRCFUN, AT3ASY, PRSCLT, SERIMM, HOMCYS, IRON, FERR, B12, SERFOL, ANA1, HSCRP ####[address] [phone] Sodium molar conc 139 mmol/L Normal 136-144 [facility] Comment on above: Performed By: #### W SR, PRCFUN, AT3ASY, PRSCLT, SERIMM, HOMCYS, IRON, FERR, B12, SERFOL, ANA1, HSCRP ####[place] [address] [place], [place] [phone] Urea nitrogen mass conc 14 mg/dL Normal 7-21 [facility] Comment on above: Performed By: #### W SR, PRCFUN, AT3ASY, PRSCLT, SERIMM, HOMCYS, IRON, FERR, B12, SERFOL, ANA1, HSCRP ####[address] [phone] Factor V Leiden PCRon 2017 FV Leiden Report (NOTE) Normal [facility] Comment on above: Result Comment: [facility] Pathologist: Alvina Sotomayor M.D., Ph.D.Factor V [...] hybridization probes. Performed By: #### F VLEI ####[place] [address] [place], [place] [phone] Ferritinon 04-20-2018 Ferritin [Mass/volume] in Serum or Plasma 53.7 ng/mL Normal 14.7-205.1 [facility] Comment on above: Performed By: #### W SR, PRCFUN, AT3ASY, PRSCLT, SERIMM, HOMCYS, IRON, FERR, B12, SERFOL, ANA1, HSCRP ####[address] [phone] Folate, Serumon 04-20-2018 Folate [Mass/volume] in Serum or Plasma 10.0 ng/mL Normal >4.7 [facility] Comment on above: Performed By: #### W SR, PRCFUN, AT3ASY, PRSCLT, SERIMM, HOMCYS, IRON, FERR, B12, SERFOL, ANA1, HSCRP ####[address] [phone] Homocysteineon 04-20-2018 Homocysteine 9.5 umol/L Normal <15.1 [facility] Comment on above: Performed By: #### W SR, PRCFUN, AT3ASY, PRSCLT, SERIMM, HOMCYS, IRON, FERR, B12, SERFOL, ANA1, HSCRP ####[address] [phone] Immunoglobulins GAMon 2017 IgA mass conc 237 mg/dL Normal 78-391 [facility] Comment on above: Performed By: #### W SR, PRCFUN, AT3ASY, PRSCLT, SERIMM, HOMCYS, IRON, FERR, B12, SERFOL, ANA1, HSCRP ####[address] [phone] IgG mass conc 1220 mg/dL Normal 717-1411 [facility] Comment on above: Performed By: #### W SR, PRCFUN, AT3ASY, PRSCLT, SERIMM, HOMCYS, IRON, FERR, B12, SERFOL, ANA1, HSCRP ####[address] [phone] IgM mass conc 139 mg/dL Normal 53-334 [facility] Comment on above: Performed By: #### W SR, PRCFUN, AT3ASY, PRSCLT, SERIMM, HOMCYS, IRON, FERR, B12, SERFOL, ANA1, HSCRP ####[place] [address] [place] [address] [place], [place] [phone] Iron and TIBCon 04-20-2018 Iron mass conc 36 ug/dL Low 41-186 [facility] Comment on above: Performed By: #### W SR, PRCFUN, AT3ASY, PRSCLT, SERIMM, HOMCYS, IRON, FERR, B12, SERFOL, ANA1, HSCRP ####[address], [place] [phone] TIBC 271 ug/dL Normal 232-386 [facility] Comment on above: Performed By: #### W SR, PRCFUN, AT3ASY, PRSCLT, SERIMM, HOMCYS, IRON, FERR, B12, SERFOL, ANA1, HSCRP ####[address] [phone] Transferrin Saturatn 13 % Low 15-57 [facility] Comment on above: Performed By: #### W SR, PRCFUN, AT3ASY, PRSCLT, SERIMM, HOMCYS, IRON, FERR, B12, SERFOL, ANA1, HSCRP ####[address] [phone] LDon 04-20-2018 LD 197 U/L Normal 135-214 [facility] Comment on above: Performed By: #### W SR, PRCFUN, AT3ASY, PRSCLT, SERIMM, HOMCYS, IRON, FERR, B12, SERFOL, ANA1, HSCRP ####[address] [phone] Lupus Anticoag Panelon 04-20 aPTT Coag time (Bld) 26.7 s Normal 23.0-32.4 [facility] Comment on above: Result Comment: Unfr [...] laboratory APTT reagent in use throughout the [facility]. Performed By: #### L UPUSP ####[place] [address] [place], [place] [phone] aPTT Coag time (Bld) 32.4 s Normal <35.0 [facility] Comment on above: Performed By: #### L UPUSP ####[address] [phone] aPTT Coag time (Bld) 30.6 s Normal <33.2 [facility] Comment on above: Performed By: #### L UPUSP ####[address] [phone] aPTT Coag time (Bld) 33.0 s Normal 24.4-33.4 [facility] Comment on above: Result Comment: Resu lt rechecked. Performed By: #### L UPUSP ####[place] [address] [place], [place] [phone] Beta2 Glycoprot IgG <9 Normal <20 [facility] Comment on above: Result Comment: < 20 SGU Nbyxtcev76-24 SGU Low Positive> 80 SGU High PositiveThese results were obtained with the [employer] QUANTA Lite B2 GPI IgG DAYNA. B2 GPI IgG values obtained with different manufacturers' assay methods may not be used interchangeably. The magnitude of the reported IgG levels cannot be correlated to an endpoint titer. Performed By: #### L UPUSP ####[address] [phone] DRVVT 1:1 Mix 41.3 sec Normal 32.7-46.7 [facility] Comment on above: Performed By: #### L UPUSP ####[place] [address] [place], [place] [phone] DRVVT Confirm Ratio 1.06 Normal <1.21 [facility] Comment on above: Performed By: #### L UPUSP ####[facility] [place], [place] [phone] DRVVT Screen 42.3 sec Normal 32.7-46.7 [facility] Comment on above: Performed By: #### L UPUSP ####[facility] [place], [place] [phone] Hex Phase Confirm 47.7 sec Normal 41.8-54.9 [facility] Comment on above: Performed By: #### L UPUSP ####[place] [address] [place], [place] [phone] Hex Phase Delta 6.7 delta sec Normal <9.1 [facility] Comment on above: Performed By: #### L UPUSP ####[facility] [place], [place] [phone] Hex Phase Screen 54.5 sec Normal 45.0-59.9 [facility] Comment on above: Performed By: #### L UPUSP ####[id number] [place], [place] [phone] IgA Cardiolipin Ab. <9 Normal 0-11 [facility] Comment on above: Result Comment: <12 APL [id number] APL Equivocal>40 APL PositiveThe following results were obtained with an [employer] QUANTA Lite LAVON IgA III DAYNA. Cardiolipin IgA values obtained with different manufacturers' assay methods may not be used interchangeably. The magnitude of the reported IgA levels cannot be correlated to an endpoint titer. Performed By: #### L UPUSP ####[address] [place], [place] [phone] IgG Cardiolipin Ab. <9 Normal 0-9 [facility] Comment on above: Result Comment: <10 GPL [id number] GPL Equivocal>40 GPL PositiveThe following results were obtained with the [employer] QUANTA Lite LAVON IgG III DAYNA. Cardiolipin IgG values obtained with the different manufacturers' assay methods may not be used interchangeably. The magnitude of the reported IgG levels cannot be correlated to an endpoint titer. Performed By: #### L UPUSP ####[address] [phone] IgM Cardiolipin Ab. 9 MPL Normal 0-11 [facility] Comment on above: Result Comment: <12 MPL Lhezbtri34-54 MPL Equivocal>40 MPL PositiveThe following results were obtained with the [employer] QUANTA Lite LAVON IgM III DAYNA. Cardiolipin IgM values obtained with different manufacturers' assay methods may not be used interchangeably. The magnitude of the reported IgM levels cannot be correlated to an endpoint titer. Performed By: #### L UPUSP ####[address] [phone] INR Coag RelTime (Bld) 1.0 {INR} Normal 0.9-1.3 [facility] Comment on above: Result Comment: Maya min K Antagonist (VKA) Therapeutic Range: INR 2 to 3 (Target INR of 2.5)Note: For patients treated with VKA drugs, such as warfarin, the [employer] 2012 Guideline recommends [...] 3).Alfred THAKKAR, et al. Chest 2012, 141:7S-47SShelbie FISCHER et al. [facility] 2017, 70: 252-289 Performed By: #### L UPUSP ####[address] [phone] Interpretation (NOTE) Normal [facility] Comment on above: Result Comment: Perf orming Pathologist: lAvina Sotomayor M.D., Ph.D.Normal - see comment below.Laboratory [...] 74:1185 (1995). Performed By: #### L UPUSP ####[facility] [address] [place], [place] [phone] PNP Negative Normal Negative [facility] Comment on above: Performed By: #### L UPUSP ####[facility] [address] [place], [place] [phone] Protein mass conc g/dL Normal <20 [facility] Comment on above: Result Comment: < 20 [facility]U Vfttgaqn19-37 SMU Low Positive> 80 [facility] High PositiveThese results were obtained with the [employer] QUANTA Lite B2 GPI IgM DAYNA. B2 GPI IgM values obtained with different manufacturers' assay methods may not be used interchangeably. The magnitude of the reported IgM levels cannot be correlated to an endpoint titer. Performed By: #### L UPUSP ####[facility] [place], [place] [phone] PT Sec 10.1 sec Normal 9.7-13.0 [facility] Comment on above: Performed By: #### L UPUSP ####[address] [place], [place] [phone] Thrombin Time 16.1 sec Normal <18.6 [facility] Comment on above: Performed By: #### L UPUSP ####[address] [place], [place] [phone] Protein C Functionalon 04-20 Protein mass conc 104 % Normal 76-147 [facility] Comment on above: Performed By: #### W SR, PRCFUN, AT3ASY, PRSCLT, SERIMM, HOMCYS, IRON, FERR, B12, SERFOL, ANA1, HSCRP ####[facility] [place], [place] [phone] Protein S Clottableon 2017 Protein S Clottable 108 % Normal 59-131 [facility] Comment on above: Performed By: #### W SR, PRCFUN, AT3ASY, PRSCLT, SERIMM, HOMCYS, IRON, FERR, B12, SERFOL, ANA1, HSCRP ####[id number] [place], [place] [phone] Prothrombin Gene PCRon 04-20 PT Gene Report (NOTE) Normal [facility] Comment on above: Result Comment: Perf [facility] Pathologist: Alvina Sotomayor M.D., Ph.D.PT Gene Mutation Result: NORMALPT Gene Mutation Interpretation: The DNA sample is negative for [id number] point mutation in the 3' untranslated region of theprothrombin gene.This is not associated with an increased risk ofvenous thrombosis.Venous thrombosis is a multifactorial disorder, andother causes of venous thrombosis are not excluded.PT Gene Mutation Method: This assay was performed by polymerase chainreaction and fluorescence monitoring using hybridization probes. Performed By: #### P TGEN ####[facility] [address] [place], [place] [phone] Remote CBCDIF (for CRITICAL ACCESS [facility]PITAL use o nly)on 04-20-2018 Abs Baso <0.03 Normal 0.00-0.10 [facility] Abs [place] 0.48 k/uL Normal 0.00-0.86 [facility] Abs Neut 3.86 k/uL Normal 1.45-7.50 [facility] Basophils/100 WBC Auto (Bld) 0.3 % Normal [facility] Eosinophils Auto #/vol (Bld) 0.09 10*3/uL Normal 0.00-0.45 [facility] Eosinophils/100 WBC Auto (Bld) 1.4 % Normal [facility] Erythrocyte distribution width Auto Ratio (RBC) 11.9 % Normal 11.5-15.0 [facility] Hematocrit Auto Volume Fraction (Bld) 37.0 % Normal 36.0-46.0 [facility] Hemoglobin mass conc (Bld) 12.6 g/dL Normal 11.5-15.5 [facility] Lymphocytes Auto #/vol (Bld) 2.07 10*3/uL Normal 1.00-4.00 [facility] Lymphocytes/100 WBC Auto (Bld) 31.7 % Normal [facility] MCH Auto Entitic mass (RBC) 33.2 pG Normal 26.0-34.0 [facility] MCHC Auto mass conc (RBC) 34.1 g/dL Normal 30.5-36.0 [facility] MCV Auto Entitic volume (RBC) 97.4 fL Normal 80.0-100.0 [facility] Monocytes/100 WBC Auto (Bld) 7.4 % Normal [facility] Neutrophils/100 WBC Auto (Bld) 59.2 % Normal [facility] Platelet mean volume Auto Entitic volume (Bld) 10.7 fL Normal 9.0-12.7 [facility] Platelets Auto #/vol (Bld) 226 10*3/uL Normal 150-400 [facility] RBC Auto #/vol (Bld) 3.80 10*6/uL Low 3.90-5.20 [facility] WBC Auto #/vol (Bld) 6.52 10*3/uL Normal 3.70-11.00 [facility] Sed Rate Westergrenon 2017 Sed Rate Westergren 15 mm/hr Normal 0-20 [facility] Comment on above: Performed By: #### W SR, PRCFUN, AT3ASY, PRSCLT, SERIMM, HOMCYS, IRON, FERR, B12, SERFOL, ANA1, HSCRP ####[address] [place], [place] [phone] Ultra-sensitive CRPon 2017 Protein mass conc 11.1 mg/L High <3.1 [facility] Comment on above: Result Comment: (NOT E)hsCRP < 1.0 mg/L, relative risk is lowhsCRP 1.0-3.0 mg/L, relative risk is averagehsCRP > 3.0 mg/L, relative risk is highReference:Trevin TA, Salvador GA, Raman RW, et al. Markers of Inflammationand Cardiovascular Disease. Application to Clinical and PublicHealth Practice. A Statement for Healthcare Professionals From theKettering Health Washington Townshipers for Disease Control and Prevention and the [place] HeartAssociation. Circulation 2003;107:499-511. Performed By: #### W SR, PRCFUN, AT3ASY, PRSCLT, SERIMM, HOMCYS, IRON, FERR, B12, SERFOL, ANA1, HSCRP ####[facility] [place], [place] [phone] Vitamin B12on 04-20-2018 Cobalamin (Vitamin B12) mass conc 445 pg/mL Normal 232-1245 [facility] Comment on above: Performed By: #### W SR, PRCFUN, AT3ASY, PRSCLT, SERIMM, HOMCYS, IRON, FERR, B12, SERFOL, ANA1, HSCRP ####[facility] [place], [place] [phone] CNOVSPon 04-15-2018 CNOVSP Visit (SP) Office (HEMACL) PRINCE TIFFANYAZUL ([id number]) 1990 FDate Time Provider Department04/15/18 3:15 PM LATASHA HU During your visit today, we recorded the [...] 9:38 AM SignedPATIENT NAME: Azul Llanos TiffanyMRN: [id number] PHYSICIAN: Chay Castro, [id number] [address]VVLDMKT CARE PHYSICIAN: No primary care provider on file.OTHER PHYSICIANS:CHIEF COMPLAINT: 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)ASSESSMENT/PLAN: (R79.1) 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) (primaryencounter diagnosis)Mildly elevated dilute Idalia viper venom time in a otherwise lhipkfe36-eloj-cao female with no history suggestive of bleeding [...] considered for referral to hematologic subspecialist at [facility].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.We'll also check for lupus screen with an ROSANA.Mild anemiaWe'll check iron studies, B-12, folate, sedimentation rate.Visit (SP) Office on 04/15/18-FACTOR V LEIDEN/PCR-PROTHROMBIN GENE PCR-PROTEIN S CLOTTABLE-PROTEIN C FUNCT-ANTITHROMBIN III-LUPUS ANTICOAG PL-B 2 GPI IGG AND UFJ-CCMA-EBBHCGHYNOE KH-NUBFIVYKPNUQ-ZJT PANEL BLOOD SCRN-IRON + TIBC-FERRITIN BLD-VITAMIN B12 BLOOD-FOLATE SERUM-IMMUNOGLOBULINS YUSRA-LD LACTATE DEHYDRO-SED RATE LVXCOVYKXF-M-FHQHCYRU ULTRA SEN-ACTIVATED PTT-PROTHROMBIN TIME/PT-CBC + DIFF (FOR REMOTE CRITICAL ACCESS HOSPITAL USE)-COMP METABOLIC PANEL-ACTIVATED PTT-PROTHROMBIN TIME/PT-B 2 GPI IGG AND RIC-TJMH-BMUAQRMGNPY AB-LUPUS ANTICOAG PL Return in about 4 months (around 08/15/2018), or labs on a friday or week., for repeat in 12 weeks. f/u in 14 weeks. . HISTORY OF PRESENT ILLNESS: This is a 27 year old female with limited past medical history of migraineheadaches and endometriosis, follows closely with Dr. Castro, gynecology forhistory of abnormal Pap testing. 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 She then had a LEEP procedure in 2017 whichagain showed HGSIL.She is on no medications. She takes a lot of midol and excedrin. She works [employer] in [place].Her mother has a history of cervical cancer [...] plan. I answered allquestions satisfactorily..Rowdy Hu D.O.Medical OncologistHowells, [place]Referring Provider: CHAY CASTRO [[id number]]Allergies As of Date: 04/15/2018 Noted Allergy ReactionIODINE 04/15/2018 2 - RashDate Reviewed: 04/15/2018Reviewed by: Zee Mills - Fully AssessedReason for Visit: Consult [173] Cmt: Abnormal labsPrimary Visit Diagnosis: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) [R79.1]Order(s):FACTOR V LEIDEN/PCR [SQFVLEID] Order #: [id number] FUTURE PROTHROMBIN GENE PCR [SQPTGENE] Order #: [id number] FUTURE PROTEIN S CLOTTABLE [SQPRSCLT] Order #: [id number] FUTURE PROTEIN C FUNCT [SQPRCFUN] Order #: [id number] FUTURE ANTITHROMBIN III [BISR5EGY] Order #: [id number] FUTURE LUPUS ANTICOAG PL [SQLUPUSP] Order #: [id number] FUTURE B 2 GPI IGG AND IGM [GUK2RMHJ] Order #: [id number] FUTURE ANTI-CARDIOLIPIN AB [SQCARDIO] Order #: [id number] FUTURE HOMOCYSTEINE [SQHOMCYS] Order #: [id number] FUTURE ROSANA PANEL BLOOD SCRN [SQANA1] Order #: [id number] FUTURE IRON + TIBC [SQIRON] Order #: [id number] FUTURE FERRITIN BLD [SQFERR] Order #: [id number] FUTURE VITAMIN B12 BLOOD [SQB12] Order #: [id number] FUTURE FOLATE SERUM [SQSERFOL] Order #: [id number] FUTURE IMMUNOGLOBULINS YUSRA [SQSERIMM] Order #: [id number] FUTURE LD LACTATE DEHYDRO [SQLD6] Order #: [id number] FUTURE SED RATE WESTERGREN [SQWSR] Order #: [id number] FUTURE C-REACTIVE ULTRA SEN [SQHSCRP] Order #: [id number] FUTURE ACTIVATED PTT [SQPTT] Order #: [id number] FUTURE PROTHROMBIN TIME/PT [SQPT] Order #: [id number] FUTURE CBC + DIFF (FOR REMOTE [facility] USE) [SQRCBCDF] Order #: [id number] FUTURE COMP METABOLIC PANEL [SQCMP] Order #: [id number] FUTURE ACTIVATED PTT [SQPTT] Order #: [id number] FUTURE PROTHROMBIN TIME/PT [SQPT] Order #: [id number] FUTURE B 2 GPI IGG AND IGM [GLY1KZXH] Order #: [id number] FUTURE ANTI-CARDIOLIPIN AB [SQCARDIO] Order #: [id number] FUTURE LUPUS ANTICOAG PL [SQLUPUSP] Order #: [id number] FUTUREDisposition: Return in about 4 months (around [...] states that she has always had headaches.Zee AlanemanuelEncounter Status:Closed by LATASHA HU DO on 04/19/18 Normal [facility] PROGRESSon 04-15-2018 Protein mass conc HNO ID: [id number] thor: Latasha HuSer: (none)Author Type: PhysicianType: Progress NotesFiled: 04/19/2018 9:38 AMNote Text:PATIENT NAME: Azul Llanos EtzwilerMRN: [id number] PHYSICIAN: Chay Castro, [id number] [address]WHGQPOA CARE PHYSICIAN: No primary care provider on file.OTHER PHYSICIANS:CHIEF COMPLAINT: 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)ASSESSMENT/PLAN: (R79.1) 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) (primaryencounter diagnosis)Mildly elevated dilute Idalia viper venom time in a otherwise vpekhsb36-pkyw-wps female with no history suggestive of bleeding [...] considered for referral to hematologic subspecialist at [facility].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.We'll also check for lupus screen with an ROSANA.Mild anemiaWe'll check iron studies, B-12, folate, sedimentation rate.Visit (SP) Office on 04/15/18-FACTOR V LEIDEN/PCR-PROTHROMBIN GENE PCR-PROTEIN S CLOTTABLE-PROTEIN C FUNCT-ANTITHROMBIN III-LUPUS ANTICOAG PL-B 2 GPI IGG AND EFJ-ZGQI-KPSGXMOCRRJ IC-WUKJZLXTHJVZ-JIL PANEL BLOOD SCRN-IRON + TIBC-FERRITIN BLD-VITAMIN B12 BLOOD-FOLATE SERUM-IMMUNOGLOBULINS YUSRA-LD LACTATE DEHYDRO-SED RATE CLWUPGBXTG-F-GIPNOBNS ULTRA SEN-ACTIVATED PTT-PROTHROMBIN TIME/PT-CBC + DIFF (FOR REMOTE CRITICAL ACCESS HOSPITAL USE)-COMP METABOLIC PANEL-ACTIVATED PTT-PROTHROMBIN TIME/PT-B 2 GPI IGG AND NFH-UTBZ-AKFTXAJQVXM AB-LUPUS ANTICOAG PL Return in about 4 [...] of midol and excedrin. Sheworks in a [employer] [place].Her mother has a history of cervical cancer [...] my recommendations listed below. The patient Azul Rodriguez Prince Allenverbalized understanding and agreed with these recommendations and plan.I answered all questions satisfactorily..Rowdy Hu D.O.Medical OncologistSamaritan Healthcare [facility] Vital Signs Date Time Vital Sign Value Performing Clinician Hedy angela 03-29-2025 13:08-0400 Body mass index (BMI) [Ratio] 46.71 kg/m2 Zoya BRADFORD Work Phone: [facility] 03-29-2025 13:08-0400 Body weight 115.85 kg Zoya BRADFORD Work Phone: [facility] 03-29-2025 13:08-0400 Diastolic blood pressure 74 mm[Hg] Zoya Peter PA Work Phone: [facility] 03-29-2025 13:08-0400 Systolic blood pressure 114 mm[Hg] Zoya BRADFORD Work Phone: [facility] 02-25-2025 09:18-0400 Body height 157.5 cm Tez Angel MD Work Phone: [facility] 02-25-2025 09:18-0400 Body mass index (BMI) [Ratio] 47.01 kg/m2 Tez Angel MD Work Phone: [facility] 02-25-2025 09:18-0400 Body temperature 97.5 [degF] Tez Angel MD Work Phone: [facility] 02-25-2025 09:18-0400 Body weight 116.57 kg Tez Angel MD Work Phone: [facility] 02-25-2025 09:18-0400 Diastolic blood pressure 76 mm[Hg] Tez Angel MD Work Phone: [facility] 02-25-2025 09:18-0400 Heart rate 107 /min Tez Angel MD Work Phone: [facility] 02-25-2025 09:18-0400 Respiratory rate 20 /min Tez Angel MD Work Phone: [facility] 02-25-2025 09:18-0400 SaO2% (BldA) [Mass fraction] 97 % Tez Angel MD Work Phone: [facility] 02-25-2025 09:18-0400 Systolic blood pressure 128 mm[Hg] Tez Angel MD Work Phone: [facility] 02-24-2025 13:42-0400 Body mass index (BMI) [Ratio] 47.1 kg/m2 Zoya Peter PA Work Phone: [facility] 02-24-2025 13:42-0400 Body weight 116.8 kg Zoya Peter PA Work Phone: [facility] 02-24-2025 13:42-0400 Diastolic blood pressure 80 mm[Hg] Zoya Peter PA Work Phone: [facility] 02-24-2025 13:42-0400 Systolic blood pressure 110 mm[Hg] Zoya Peter PA Work Phone: [facility] 01-12-2025 13:44-0400 Body mass index (BMI) [Ratio] 46.64 kg/m2 Chay Matthew DO Work Phone: [facility] 01-12-2025 13:44-0400 Body weight 115.67 kg Chay Matthew DO Work Phone: [facility] 01-12-2025 13:44-0400 Diastolic blood pressure 78 mm[Hg] Chay Matthew DO Work Phone: [facility] 01-12-2025 13:44-0400 Systolic blood pressure 118 mm[Hg] Chay Matthew DO Work Phone: [facility] 01-03-2025 10:53-0400 Body mass index (BMI) [Ratio] 46.3 kg/m2 Chay Matthew DO Work Phone: [facility] 01-03-2025 10:53-0400 Body weight 114.81 kg Chay Matthew DO Work Phone: [facility] 01-03-2025 10:53-0400 Diastolic blood pressure 78 mm[Hg] Chay Matthew DO Work Phone: [facility] 01-03-2025 10:53-0400 Systolic blood pressure 116 mm[Hg] Chay Rushingo DO Work Phone: [facility] 09-17-2024 08:04-0500 Body height 157.5 cm Sarahy Burns MD Work Phone: [facility] 09-17-2024 08:04-0500 Body mass index (BMI) [Ratio] 47.92 kg/m2 Sarahy Burns MD Work Phone: [facility] 09-17-2024 08:04-0500 Body weight 118.84 kg Sarahy Burns MD Work Phone: [facility] 09-17-2024 08:04-0500 Diastolic blood pressure 77 mm[Hg] Sarahy Burns MD Work Phone: [facility] 09-17-2024 08:04-0500 Heart rate 87 /min Sarahy Burns MD Work Phone: [facility] 09-17-2024 08:04-0500 Systolic blood pressure 115 mm[Hg] Sarahy Burns MD Work Phone: [facility] 08-17-2024 08:22-0500 Body height 157.5 cm Tez Rogers DPM FACFA S Work Phone: [facility] 08-17-2024 08:22-0500 Body mass index (BMI) [Ratio] 48.1 kg/m2 Tez Dolce DPM FACFAS Work Phone: [facility] 08-17-2024 08:22-0500 Body weight 119.3 kg Tez Dolce DPM FACFA S Work Phone: [facility] 08-17-2024 08:22-0500 Diastolic blood pressure 69 mm[Hg] Tez Dolce DPM FACFAS Work Phone: [facility] 08-17-2024 08:22-0500 Heart rate 84 /min Tez Dolce DPM FACFA S Work Phone: [facility] 08-17-2024 08:22-0500 Systolic blood pressure 128 mm[Hg] Tez COLLADO Work Phone: [facility] 07-28-2024 11:42-0500 Body height 157.5 cm Tez Angel MD Work Phone: [facility] 07-28-2024 11:42-0500 Body mass index (BMI) [Ratio] 48.1 kg/m2 Tez Angel MD Work Phone: [facility] 07-28-2024 11:42-0500 Body temperature 96.6 [degF] Tez Angel MD Work Phone: [facility] 07-28-2024 11:42-0500 Body weight 119.3 kg Tez Angel MD Work Phone: [facility] 07-28-2024 11:42-0500 Diastolic blood pressure 68 mm[Hg] Tez Angel MD Work Phone: [facility] 07-28-2024 11:42-0500 Heart rate 116 /min Tez Angel MD Work Phone: [facility] 07-28-2024 11:42-0500 Respiratory rate 20 /min Tez Angel MD Work Phone: [facility] 07-28-2024 11:42-0500 SaO2% (BldA) [Mass fraction] 98 % Tez Angel MD Work Phone: [facility] 07-28-2024 11:42-0500 Systolic blood pressure 126 mm[Hg] Tez Angel MD Work Phone: [facility] 07-05-2024 18:55-0400 Heart rate 103 /min Alexx Pena [facility] 07-05-2024 18:55-0400 Respiratory rate 18 /min Alexx Pena [facility] 07-05-2024 18:55-0400 SaO2% (BldA) [Mass fraction] 99 % Alexx Pena [facility] 07-05-2024 17:09-0400 Body temperature 98.06 [degF] Alexx Pena [facility] 07-05-2024 17:09-0400 Diastolic blood pressure 97 mm[Hg] Alexx Pena [facility] 07-05-2024 17:09-0400 Heart rate 119 /min Alexx Pena [facility] 07-05-2024 17:09-0400 Respiratory rate 18 /min Alexx Pena [facility] 07-05-2024 17:09-0400 SaO2% (BldA) [Mass fraction] 98 % Alexx Pena [facility] 07-05-2024 17:09-0400 Systolic blood pressure 131 mm[Hg] Alexx Pena [facility] 06-27-2024 12:10-0400 Blood Pressure Location [place] [employer] [facility] 06-27-2024 12:10-0400 Body temperature 96.8 [degF] [employer] [facility] 06-27-2024 12:10-0400 Diastolic blood pressure 80 mm[Hg] [employer] [facility] 06-27-2024 12:10-0400 Heart rate 111 /min [place] [employer] [facility] 06-27-2024 12:10-0400 SaO2% (BldA) [Mass fraction] 99 % [employer] [facility] 06-27-2024 12:10-0400 Systolic blood pressure 120 mm[Hg] CHRISTOPHER MASTERS [facility] 10-25-2023 16:49-0500 Diastolic blood pressure 78 mm[Hg] Alexx Pena [facility] 10-25-2023 16:49-0500 Heart rate 74 /min Alexx Dolle [facility] 10-25-2023 16:49-0500 Mean blood pressure 97 mm[Hg] Alexx Dolle [facility] 10-25-2023 16:49-0500 Respiratory rate 18 /min Alexx Dolle [facility] 10-25-2023 16:49-0500 SaO2% (BldA) [Mass fraction] 100 % Alexx Dolle [facility] 10-25-2023 16:49-0500 Systolic blood pressure 134 mm[Hg] Alexx Dolle [facility] 10-25-2023 16:30-0500 Hourly Rounding Aelxx Pena [facility] 10-25-2023 16:30-0500 Promise to Return Alexx Dolle [facility] 10-25-2023 16:00-0500 Diastolic blood pressure 82 mm[Hg] Alexx Dolle [facility] 10-25-2023 16:00-0500 Heart rate 81 /min Alexx Dolle [facility] 10-25-2023 16:00-0500 SaO2% (BldA) [Mass fraction] 94 % Alexx Dolle [facility] 10-25-2023 16:00-0500 Systolic blood pressure 127 mm[Hg] Alexx Jean [facility] 10-25-2023 15:28-0500 Hourly Rounding Alexx Pena [facility] 10-25-2023 15:28-0500 Promise to Return Alexx Pena [facility] 10-25-2023 15:02-0500 Diastolic blood pressure 138 mm[Hg] Alexx Pena [facility] 10-25-2023 15:02-0500 Heart rate 94 /min Alexx Pena [facility] 10-25-2023 15:02-0500 Mean blood pressure 142 mm[Hg] Alexx Pena [facility] 10-25-2023 15:02-0500 Respiratory rate 18 /min Alexx Pena [facility] 10-25-2023 15:02-0500 SaO2% (BldA) [Mass fraction] 99 % Alexx Pena [facility] 10-25-2023 15:02-0500 Systolic blood pressure 150 mm[Hg] Alexx Pena [facility] 10-25-2023 14:20-0500 Body temperature 98.24 [degF] Alexx Pena [facility] 10-25-2023 14:20-0500 Heart rate 112 /min Alexx Pena [facility] 10-20-2023 15:33-0500 Blood Pressure Location Glenn Candy [facility] 10-20-2023 15:33-0500 Diastolic blood pressure 84 mm[Hg] Glenn Popeyemacypilar [facility] 10-20-2023 15:33-0500 Heart rate 95 /min Glenn Pakpilar [facility] 10-20-2023 15:33-0500 SaO2% (BldA) [Mass fraction] 98 % Glenn Gupta [facility] 10-20-2023 15:33-0500 Systolic blood pressure 117 mm[Hg] Glenn Gupta [facility] 08-15-2023 09:18-0500 Blood Pressure Location Alexx Mariaay [facility] 08-15-2023 09:18-0500 Diastolic blood pressure 76 mm[Hg] Alexx Mourany [facility] 08-15-2023 09:18-0500 Heart rate 92 /min Alexx Mourany [facility] 08-15-2023 09:18-0500 Respiratory rate 16 /min Alexx Mourany [facility] 08-15-2023 09:18-0500 Systolic blood pressure 119 mm[Hg] Alexx Mourany [facility] 08-12-2023 11:20-0500 Body temperature 98.06 [degF] Alexx Mourany [facility] 08-12-2023 11:20-0500 Diastolic blood pressure 90 mm[Hg] Alexx Mourany [facility] 08-12-2023 11:20-0500 Heart rate 114 /min Alexx Mourany [facility] 08-12-2023 11:20-0500 Systolic blood pressure 137 mm[Hg] Alexx Mourany [facility] 08-11-2023 13:20-0500 Diastolic blood pressure 85 mm[Hg] Glenn Gupta [facility] 08-11-2023 13:20-0500 Heart rate 100 /min Glenn Gupta [facility] 08-11-2023 13:20-0500 SaO2% (BldA) [Mass fraction] 100 % Glenn Gupta [facility] 08-11-2023 13:20-0500 Systolic blood pressure 140 mm[Hg] Glenn Gupta [facility] 08-06-2023 11:15-0500 Heart rate 77 /min Alexx Manciaurany [facility] 08-06-2023 11:15-0500 SaO2% (BldA) [Mass fraction] 97 % Alexx Mourany [facility] 08-06-2023 11:15-0500 Respiratory rate 16 /min Alexx Mourany [facility] 08-06-2023 11:14-0500 Diastolic blood pressure 87 mm[Hg] Alexx Mourany [facility] 08-06-2023 11:14-0500 Mean blood pressure 98 mm[Hg] Alexx Mourany [facility] 08-06-2023 11:14-0500 Systolic blood pressure 118 mm[Hg] Alexx Mourany [facility] 08-06-2023 09:59-0500 Heart rate 79 /min Alexx Mourany [facility] 08-06-2023 09:59-0500 SaO2% (BldA) [Mass fraction] 94 % Alexx Mourany [facility] 08-06-2023 09:59-0500 Diastolic blood pressure 82 mm[Hg] Alexx Mourany [facility] 08-06-2023 09:59-0500 Mean blood pressure 98 mm[Hg] Alexx Mourany [facility] 08-06-2023 09:59-0500 Systolic blood pressure 129 mm[Hg] Alexx Mourany [facility] 08-06-2023 09:59-0500 Respiratory rate 16 /min Alexx Mourany [facility] 08-06-2023 09:50-0500 Blood Pressure Location Alexx Mourany [facility] 08-06-2023 09:50-0500 Body temperature 98.06 [degF] Alexx Mourany [facility] 08-06-2023 09:50-0500 Diastolic blood pressure 92 mm[Hg] Alexx Mourany [facility] 08-06-2023 09:50-0500 Heart rate 80 /min Alexx Mourany [facility] 08-06-2023 09:50-0500 Mean blood pressure 103 mm[Hg] Alexx Mourany [facility] 08-06-2023 09:50-0500 Respiratory rate 20 /min Alexx Mourany [facility] 08-06-2023 09:50-0500 SaO2% (BldA) [Mass fraction] 93 % Alexx Mourany [facility] 08-06-2023 09:50-0500 Systolic blood pressure 124 mm[Hg] Alexx Mourany [facility] 08-06-2023 09:40-0500 Blood Pressure Location Alexx Mourany [facility] 08-06-2023 09:40-0500 Mean blood pressure 100 mm[Hg] Alexx Mourany [facility] 08-06-2023 09:40-0500 Respiratory rate 20 /min Alexx Mourany [facility] 08-06-2023 09:35-0500 Blood Pressure Location Alexx Mourany [facility] 08-06-2023 09:35-0500 Mean blood pressure 102 mm[Hg] Alexx Mourany [facility] 08-06-2023 09:35-0500 Respiratory rate 24 /min Alexx Mourany [facility] 08-06-2023 09:20-0500 Respiratory rate 19 /min Alexx Mourany [facility] 08-06-2023 06:11-0500 Mean blood pressure 79 mm[Hg] Alexx Mourany [facility] 08-06-2023 06:11-0500 Heart rate 84 /min Alexx Mourany [facility] 08-06-2023 06:08-0500 Body temperature 97.88 [degF] Alexx Mourany [facility] 07-25-2023 09:28-0500 Blood Pressure Location Alexx Mourany [facility] 07-25-2023 09:28-0500 Diastolic blood pressure 74 mm[Hg] Alexx Mourany [facility] 07-25-2023 09:28-0500 Heart rate 86 /min Alexx Mourany [facility] 07-25-2023 09:28-0500 Mean blood pressure 89 mm[Hg] Alexx Mourany [facility] 07-25-2023 09:28-0500 Systolic blood pressure 120 mm[Hg] Alexx Mourany [facility] 07-25-2023 09:28-0500 Heart rate 78 /min Alexx Mourany [facility] 07-25-2023 09:28-0500 SaO2% (BldA) [Mass fraction] 99 % Alexx Mourany [facility] 07-25-2023 09:28-0500 Respiratory rate 18 /min Alexx Mourany [facility] 07-25-2023 09:27-0500 Blood Pressure Location Alexx Mourany [facility] 07-25-2023 09:27-0500 Body temperature 97.88 [degF] Alexx Mourany [facility] 07-25-2023 09:27-0500 Diastolic blood pressure 83 mm[Hg] Alexx Mourany [facility] 07-25-2023 09:27-0500 Mean blood pressure 97 mm[Hg] Alexx Mourany [facility] 07-25-2023 09:27-0500 Systolic blood pressure 125 mm[Hg] Alexx Mourany [facility] 07-21-2023 14:40-0500 Diastolic blood pressure 81 mm[Hg] Alexx Mourany [facility] 07-21-2023 14:40-0500 Heart rate 93 /min Alexx Mourany [facility] 07-21-2023 14:40-0500 Systolic blood pressure 121 mm[Hg] Alexx Mourany [facility] 07-08-2023 13:57-0400 Blood Pressure Location Melissa Nunez [facility] 07-08-2023 13:57-0400 Body temperature 96.98 [degF] Melissa Nunez [facility] 07-08-2023 13:57-0400 Diastolic blood pressure 74 mm[Hg] Melissa Nunez [facility] 07-08-2023 13:57-0400 Heart rate 87 /min Melissa Nunez [facility] 07-08-2023 13:57-0400 Respiratory rate 16 /min Melissa Nunez [facility] 07-08-2023 13:57-0400 Systolic blood pressure 111 mm[Hg] Melissa Nunez [facility] 06-23-2023 12:53-0400 Diastolic blood pressure 68 mm[Hg] Alexx Pena [facility] 06-23-2023 12:53-0400 Heart rate 79 /min Alexx Dolle [facility] 06-23-2023 12:53-0400 Mean blood pressure 76 mm[Hg] Alexx Jean [facility] 06-23-2023 12:53-0400 Respiratory rate 24 /min Alexx Dolle [facility] 06-23-2023 12:53-0400 SaO2% (BldA) [Mass fraction] 100 % Alexx Jean [facility] 06-23-2023 12:53-0400 Systolic blood pressure 91 mm[Hg] Alexx Jean [facility] 06-23-2023 12:30-0400 Diastolic blood pressure 66 mm[Hg] Alexx Jean [facility] 06-23-2023 12:30-0400 Heart rate 81 /min Alexx Jean [facility] 06-23-2023 12:30-0400 Mean blood pressure 78 mm[Hg] Alexx Jean [facility] 06-23-2023 12:30-0400 Respiratory rate 13 /min Alexx Jean [facility] 06-23-2023 12:30-0400 SaO2% (BldA) [Mass fraction] 100 % Alexx Jean [facility] 06-23-2023 12:30-0400 Systolic blood pressure 102 mm[Hg] Alexx Jean [facility] 06-23-2023 12:00-0400 Diastolic blood pressure 67 mm[Hg] Alexx Jean [facility] 06-23-2023 12:00-0400 Heart rate 70 /min Alexx Jean [facility] 06-23-2023 12:00-0400 Mean blood pressure 83 mm[Hg] Alexx Jean [facility] 06-23-2023 12:00-0400 SaO2% (BldA) [Mass fraction] 99 % Alexx Jean [facility] 06-23-2023 12:00-0400 Systolic blood pressure 115 mm[Hg] Alexx Jean [facility] 06-23-2023 09:50-0400 Respiratory rate 20 /min Alexx Jean [facility] 06-23-2023 09:23-0400 Body temperature 98.24 [degF] Alexx Jean [facility] 06-23-2023 09:23-0400 Heart rate 81 /min Alexx Pean [facility] 06-23-2023 09:23-0400 Respiratory rate 16 /min Alexx Pena [facility] 09-14-2022 10:30-0500 Body height 157.48 cm Thania Pughmond Other [facility] Other 09-14-2022 10:30-0500 Body mass index (BMI) [Ratio] 49.74 kg/m2 Thania Joseline Other [facility] Other 09-14-2022 10:30-0500 Body temperature 97.7 [degF] Thania Pughmond Other [facility] Other 09-14-2022 10:30-0500 Body weight 123.38 kg Thania Pughmond Other [facility] Other 09-14-2022 10:30-0500 Diastolic blood pressure 97 mm[Hg] Thania Joseline Other [facility] Other 09-14-2022 10:30-0500 Respiratory rate 18 /min Thania Joseline Other [facility] Other 09-14-2022 10:30-0500 SaO2% (BldA) [Mass fraction] 100 % Thania Joseline Other [facility] Other 09-14-2022 10:30-0500 Systolic blood pressure 140 mm[Hg] Thania Joseline Other [facility] Other 05-31-2022 16:10-0400 Body height 157.48 cm Mayra Astorga Other [facility] Other 05-31-2022 16:10-0400 Body mass index (BMI) [Ratio] 48.98 kg/m2 Mayra Astorga Other [facility] Other 05-31-2022 16:10-0400 Body temperature 97.9 [degF] Mayra Astorga Other [facility] Other 05-31-2022 16:10-0400 Body weight 121.47 kg Mayra Astorga Other [facility] Other 05-31-2022 16:10-0400 Diastolic blood pressure 84 mm[Hg] Mayra Astorga Other [facility] Other 05-31-2022 16:10-0400 Respiratory rate 18 /min Mayra Astorga Other [facility] Other 05-31-2022 16:10-0400 SaO2% (BldA) [Mass fraction] 99 % Mayra Astorga Other [facility] Other 05-31-2022 16:10-0400 Systolic blood pressure 129 mm[Hg] Mayra Astorga Other [facility] Other Encounters Encounter Date Encounter Type Care Provider Facility Start: 03-29-2025 End: 03-29-2025 Bamboo flowsheet Zoya BRADFORD Work Phone: [facility] Start: 03-29-2025 End: 03-29-2025 Bamboo flowsheet Zoya BRADFORD Work Phone: [facility] Start: 03-29-2025 End: 03-29-2025 Patient encounter procedure Zoya BRADFORD Work Phone: [facility] Work Phone: Start: 03-29-2025 End: 03-29-2025 Periodic preventive med est patient 18-39 yrs Zoya BRADFORD Work Phone: [facility] Comment on above: Well woman exam with routine gynecological exam; Encounter to discuss test results Start: 03-16-2025 End: 03-16-2025 ambulatory CHAY CASTRO Not Available Start: 02-28-2025 End: 02-28-2025 Clinisync Result Encounter Tez Angel MD Work Phone: [facility] Unsolicited Start: 02-28-2025 End: 02-28-2025 Clinisync Result Encounter Tez Angel MD Work Phone: [facility] External Department Unsolicited Start: 02-28-2025 End: 03-01-2025 Refill Tez Angel MD Work Phone: [facility] Comment on above: Ocular migraine Start: 02-25-2025 End: 02-25-2025 Office outpatient visit 25 minutes Tez Angel MD Work Phone: [facility] Comment on above: Migraine without aur a and without status migrainosus, not intractable (Primary Dx); Hypothyroidism, unspecified type ; Class 3 severe obesity due to excess calories with serious comorbidity and body mass index (BMI) of 45.0 to 49.9 in adult ([facility]-HCC); Annual physical exam; Prediabetes Start: 02-25-2025 End: 02-25-2025 Patient encounter procedure Tez Angel MD Work Phone: [facility] Start: 02-25-2025 End: 02-25-2025 ambulatory TEZ ANGEL Not Available Start: 02-24-2025 End: 02-24-2025 Bamboo flowsheet Zoya BRADFORD Work Phone: [facility] Start: 02-24-2025 End: 02-24-2025 Bamboo flowsheet Zoya BRADFORD Work Phone: [facility] Start: 02-24-2025 End: 02-24-2025 ambulatory ZOYA PETER Not Available Start: 02-24-2025 End: 02-24-2025 Postop follow up visit related to original px Zoya Peter PA Work Phone: [facility] Comment on above: Postoperative follow -up Start: 02-11-2025 End: 02-11-2025 Clinisync Result Encounter Generic External Data Provider [facility] Unsolicited Start: 02-11-2025 End: 02-11-2025 Clinisync Result Encounter Generic External Data Provider [facility] Unsolicited Start: 01-26-2025 End: 01-26-2025 Clinisync Result Encounter Generic External Data Provider [facility] Unsolicited Start: 01-26-2025 End: 01-26-2025 Clinisync Result Encounter Generic External Data Provider [facility] Unsolicited Start: 01-17-2025 End: 01-17-2025 ambulatory CHAY MATTHEW Not Available Start: 01-12-2025 End: 01-12-2025 Office outpatient visit 15 minutes Chay Matthew DO Work Phone: [facility] Comment on above: Pre-op examination; Pelvic pain in female; H/O: hysterectomy Start: 01-12-2025 End: 01-12-2025 Preprocedural examination done Chay Matthew DO Work Phone: [facility] Start: 01-12-2025 End: 01-12-2025 ambulatory CHAY MATTHEW Not Available Start: 01-03-2025 End: 01-03-2025 Bamboo flowsheet Chay Matthew DO Work Phone: [facility] Start: 01-03-2025 End: 01-03-2025 Bamboo flowsheet Chay Matthew DO Work Phone: [facility] Start: 01-03-2025 End: 01-03-2025 Office outpatient visit 15 minutes Chay Matthew DO Work Phone: [facility] Comment on above: Pelvic pain in femal e Start: 01-03-2025 End: 01-03-2025 ambulatory CHAY MATTHEW Not Available Start: 12-27-2024 End: 12-28-2024 Refill Tze Angel MD Work Phone: [facility] Comment on above: Mild recurrent major depression (HCC) (CMS/HCC); Bilateral leg edema; MARGARETH (generalized anxiety disorder) (CMS/HCC); Gastro-esophageal reflux disease without esophagitis Start: 11-12-2024 End: 11-12-2024 ambulatory SARAHY H TIMMIS Not Available Start: 11-03-2024 End: 11-03-2024 ambulatory SARAHY H TIMMIS Not Available Start: 11-02-2024 End: 11-02-2024 Refill Tez Angel MD Work Phone: [facility] Comment on above: Ocular migraine (CMS /HCC) Start: 10-29-2024 End: 11-03-2024 Clinisync Result Encounter Sarahy Burns MD Work Phone: [facility] Unsolicited Start: 10-29-2024 End: 11-03-2024 Clinisync Result Encounter Sarahy Burns MD Work Phone: [facility] Unsolicited Start: 10-29-2024 End: 10-29-2024 ambulatory Sarahy H Timmis Facility:[facility] Start: 10-29-2024 End: 10-29-2024 Patient encounter procedure Sarahy H Carter [facility] Start: 09-17-2024 End: 09-17-2024 Bamboo flowsheet Sarahy Burns MD Work Phone: [facility] Start: 09-17-2024 End: 09-17-2024 Bamboo flowsheet Sarahy Burns MD Work Phone: [facility] Start: 09-17-2024 End: 09-17-2024 Office outpatient new 45 minutes Sarahy Burns MD Work Phone: [facility] Comment on above: Chronic rhinosinusit is Start: 09-17-2024 End: 09-17-2024 ambulatory SARAHY BURNS Not Available Start: 08-17-2024 End: 08-17-2024 Bamboo flowsheet Tez Jamir Martinesce DPM FACFAS Work Phone: [facility] Start: 08-17-2024 End: 08-17-2024 Bamboo flowsheet Tez Jamir Dolce DPM [facility]AC[facility]AS Work Phone: [facility] Start: 08-17-2024 End: 08-17-2024 ambulatory TEZ D DOLCE Not Available Start: 08-17-2024 End: 08-17-2024 Office outpatient new 30 minutes Tez Jamir Martinesce DPM FACFAS Work Phone: [facility] [...] 07-05-2024 Emergency department patient visit Alexx Pena [facility] Start: 07-02-2024 End: 07-02-2024 Orders Only Tez Angel MD Work Phone: [facility] Comment on above: MARGARETH (generalized anx iety disorder) ([facility]/HCC) Start: 06-27-2024 End: 06-27-[address] [facility] Facility: [facility] Start: 06-27-2024 End: 06-27-[address] [facility] Start: 04-09-2024 End: 04-09-2024 ambulatory TEZ ANGEL Not Available Start: 11-24-2023 End: 11-25-2023 ambulatory Heather Antunez MD Facility:[facility] Start: 10-25-2023 End: 10-25-2023 Emergency department patient visit Alexx Pena [facility] Start: 10-22-2023 Refill Florecita Figueroa [facility] Comment on above: 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); Edema of both legs Start: 10-20-2023 End: 10-20-2023 ambulatory Glenn Gupta Facility:[facility] Start: 10-20-2023 End: 10-20-2023 Patient encounter procedure Glenn Gupta [facility] Start: 10-01-2023 End: 10-01-2023 ambulatory Tez Angel Facility:[facility] Start: 10-01-2023 End: 10-01-2023 ambulatory MD Tez Angel Work Phone: [facility] Work Phone: Start: 10-01-2023 End: 10-01-2023 Departed Referred MD Tez Angel Work Phone: [facility] Start: 09-17-2023 End: 09-17-2023 ambulatory Glenn Gupta Facility:[facility] Start: 09-17-2023 End: 09-17-2023 Patient encounter procedure Glenn Gupta [facility] Start: 08-15-2023 End: 08-15-2023 ambulatory Alexx Gupta Facility: [facility] Start: 08-15-2023 End: 08-15-2023 Patient encounter procedure Alexx Gupta [facility] Start: 08-12-2023 End: 08-12-2023 ambulatory Alexx Gupta Facility:[facility] Start: 08-12-2023 End: 08-12-2023 Patient encounter procedure Alexx Gupta [facility] Start: 08-11-2023 End: 08-11-2023 ambulatory Glenn Gupta Facility:[facility] Start: 08-11-2023 End: 08-11-2023 Patient encounter procedure Glenn Gupta [facility] Start: 08-06-2023 End: 08-06-2023 Admission to same day [place] Alexx Gupta [facility] Start: 08-06-2023 End: 08-06-2023 ambulatory Alexx Gupta Facility:[facility] Start: 07-25-2023 End: 07-25-2023 ambulatory Alexx Gupta Facility:[facility] Start: 07-25-2023 End: 07-25-2023 Patient encounter procedure Alexx Gupta [facility] Start: 2023 End: 2023 ambulatory TEZ ANGEL Facility:[facility] Start: 2023 End: 2023 Patient encounter procedure TEZ ANGEL [facility] Start: 07-21-2023 End: 07-21-2023 ambulatory Alexx Gupta Facility:[facility] Start: 07-21-2023 End: 07-21-2023 Patient encounter procedure Alexx Gupta [facility] Start: 07-18-2023 ambulatory CHRISTOPHER Perdomo y:[facility] Start: 07-14-2023 End: 07-14-2023 ambulatory Melissapranav Castillometz Facility:[facility] Start: 07-14-2023 End: 07-14-2023 Patient encounter procedure Melissa Whaley Mayra [facility] Start: 07-08-2023 End: 07-08-2023 ambulatory Melissa Whaley Mayra Facility:[facility] Start: 07-08-2023 End: 07-08-2023 Patient encounter procedure Melissa Nunez [facility] Start: 07-07-2023 End: 07-07-2023 ambulatory Alexx Gupta Facility:[facility] Start: 07-07-2023 End: 07-07-2023 Patient encounter procedure Alexx Gupta [facility] Start: 06-23-2023 End: 06-23-2023 Emergency department patient visit Alexx Pena [facility] Start: 01-29-[address] CHAY CASTRO [...] examination without abnormal findings DR TEZ ANGEL [facility] Start: 10-09-2022 End: 10-10-[address] TEZ ANGEL Facility:[facility] Start: 10-09-2022 End: 10-10-2022 Encounter for general adult medical examination without abnormal findings DR TEZ ANGEL Facility:[facility] Start: 09-14-2022 End: 09-14-2022 ambulatory Thania Trevizo Other [facility] Other Start: 09-14-2022 Office outpatient vi sit 15 minutes Thania Trevizo [facility] Start: 07-23-2022 End: [address] YONAS ANTON . Facility:[facility] Start: 07-16-[address] YONAS ANTON . Faci lity:[facility] Start: 06-04-2022 End: 06-05-[address] YONAS ANTON . Facility:[facility] Start: 05-31-2022 End: 05-31-2022 ambulatory Mayra Astorga Other [facility] Other Start: 05-31-2022 Office outpatient ne w 30 minutes Mayra Astorga [facility] Start: 05-02-2022 End: 05-03-[address] CHAY CASTRO . Facility:[facility] Start: 04-09-2022 End: 04-09-[address] CHAY CASTRO . Facility:[facility] Start: 08-06-2018 End: 08-07-2018 Patient encounter procedure SHANT ROMERO [facility] Start: 07-28-2018 End: 07-28-2018 Patient encounter procedure SHANT ROMERO [facility] Start: 07-28-2018 End: 07-28-2018 Patient encounter procedure LATASHA HU [facility] Start: 07-08-2018 End: 07-08-2018 Patient encounter procedure MINDY GARCIA [facility] Start: 04-20-2018 End: 04-21-2018 Patient encounter procedure LATASHA HU [facility] Start: 04-15-2018 End: 04-20-2018 Patient encounter procedure LATASHA Carvalho RICHARDKAPIL [facility] Procedures Date Procedure Procedure Detail Performing Clinician Start: 02-28-2025 ALL CBC WITH AUTO DIFF Tez Angel MD Work Phone: Start: 02-11-2025 ALL CBC WITH AUTO DIFF Chay Matthew DO Work Phone: Start: 01-26-2025 XR CHEST 2V Generic External Alejo a Provider Start: 01-26-2025 ECG 12-LEAD Generic External Alejo a Provider Start: 01-12-2025 Urnls dip stick/tablet rgnt non-auto w/o micrscp Chay Matthew DO Work Phone: Start: 01-03-2025 Urnls dip stick/tablet rgnt non-auto w/o micrscp Chay Matthew DO Work Phone: Start: 10-29-2024 ALLERGENS W/TOTAL IGE AREA 5 Sarahy Burns MD Work Phone: Start: 08-17-2024 Radex foot complete minimum 3 views Tez Rogers DPM [facility]AC[facility] Work Phone: Start: 10-01-2023 Hysterectomy Glenn Candy Start: 08-06-2023 Robot assisted laparoscopic cholecystectomy Alexx Gupta Colposcopy Alexx Pena Fasciotomy of foot Alexx morrell H/O: hysterectomy H/O: hysterectomy Chay Matthew DO Work Phone: H/O: tubal ligation Alexx meneses Laparoscopy Alexx Pena Loop electrosurgical excision procedure Alexx Pena Plan of Treatment Date Care Activity Detail Author Start: 05-09-2025 Influenza vaccination [facility] Start: 04-05-2025 End: 04-05-2025 Patient encounter procedure 04/05/2025 9:45 AM EDT Office Visit [facility] [address] [place] [phone] Tez Angel MD [address] [place] [address] [facility] Start: 03-29-2025 End: 03-29-2025 Patient encounter procedure [facility] Comment on above: Arrived Start: 03-21-2025 End: 03-21-2025 Patient encounter procedure 03/21/2025 2:30 PM EDT Office Visit [facility] [place] [address] [facility] [place] [id number] Renee Burns DO [address] [place], [place] [id number] [facility] Start: 03-16-2025 End: 03-16-2025 Professional / ancillary services management 03/16/2025 8:30 AM EDT Ancillary Procedure [facility] [address] [place] [address] [facility] Start: 02-25-2025 End: 02-25-2026 Basic metabolic 1998 panel - Serum or Plasma Basic metabolic panel Lab Routine Annual physical exam Expected: 02/25/2025 (Approximate), Expires: 02/25/2026 [facility] Comment on above: Expected: 02/25/2025 (Approximate), Expires: 02/25/2026 Start: 02-25-2025 End: 02-25-2026 CBC W Auto Differential panel - Blood CBC and differential Lab Routine Annual physical exam Expected: 02/25/2025 (Approximate), Expires: 02/25/2026 [facility] Comment on above: Expected: 02/25/2025 (Approximate), Expires: 02/25/2026 Start: 02-25-2025 End: 02-25-2026 Hemoglobin A1c/Hemoglobin.total in Blood Hemoglobin A1c Lab Routine Annual physical exam Expected: 02/25/2025 (Approximate), Expires: 02/25/2026 [facility] Work Phone: Comment on above: Expected: 02/25/2025 (Approximate), Expires: 02/25/2026 Start: 02-25-2025 End: 02-25-2026 Hepatic function 2000 panel - Serum or Plasma Hepatic function panel Lab Routine Annual physical exam Expected: 02/25/2025 (Approximate), Expires: 02/25/2026 [facility] Comment on above: Expected: 02/25/2025 (Approximate), Expires: 02/25/2026 Start: 02-25-2025 End: 02-25-2026 Lipid 1996 panel - Serum or Plasma Lipid panel Lab Routine Annual physical exam Expected: 02/25/2025 (Approximate), Expires: 02/25/2026 [facility] Comment on above: Expected: 02/25/2025 (Approximate), Expires: 02/25/2026 Start: 02-25-2025 End: 02-25-2026 Thyrotropin [Units/volume] in Serum or Plasma TSH Lab Routine Annual physical exam Expected: 02/25/2025 (Approximate), Expires: 02/25/2026 [facility] Comment on above: Expected: 02/25/2025 (Approximate), Expires: 02/25/2026 Start: 02-25-2025 End: 02-25-2026 Thyroxine (T4) free [Mass/volume] in Serum or Plasma T4, free Lab Routine Annual physical exam Expected: 02/25/2025 (Approximate), Expires: 02/25/2026 [facility] Comment on above: Expected: 02/25/2025 (Approximate), Expires: 02/25/2026 Start: 02-25-2025 End: 02-25-2025 Patient encounter procedure 02/25/2025 9:15 AM EDT Office Visit [facility] [address] [place] [address] Tez Angel MD [address] [place] [address] [facility] Start: 02-24-2025 End: 02-24-2025 Patient encounter procedure 02/24/2025 1:30 PM EDT Office Visit [facility] [address] [place] [phone] Zoya Peter PA [address] [place], [place] [id number] [facility] Start: 02-02-2025 End: 02-02-2025 Patient encounter procedure 02/02/2025 3:00 PM EDT Office Visit [facility] [address] [place] [address] Renee Burns DO [address] [place], [place] [id number] [facility] Start: 01-17-2025 End: 01-17-2025 Professional / ancillary services management 01/17/2025 1:00 PM EDT Ancillary Procedure [facility] [address] [place] [phone] [facility] Start: 01-12-2025 End: 01-12-2025 Patient encounter procedure 01/12/2025 1:30 PM EDT Consult [facility] [address] [place] [phone] Chay Castro DO [address] [place], [place] [id number] [facility] Start: 01-03-2025 End: 07-05-2025 [...] [facility] [place] [address] [place] [phone] Sarahy Burns MD [address] [facility] [address] [place] [address] [facility] Start: 11-03-2024 End: 11-03-2024 Professional / ancillary services management 11/03/2024 8:45 AM EST Ancillary Procedure [facility] [address] [place] [phone] [facility] Start: 10-11-2024 End: 10-11-2024 Patient encounter procedure 10/11/2024 9:15 AM EST Office Visit [facility] [address] [place] [phone] Tez Angel MD [address] [place] [phone] [facility] Start: 09-17-2024 End: 09-17-2024 Patient encounter procedure 09/17/2024 8:10 AM EST Office Visit [facility] [address] [place] [phone] Sarahy Burns MD [address] [facility] [address] [place] [address] Chronic rhinosinusitis [facility] [place] Comment on above: Chronic rhinosinusit is Start: 07-28-2024 End: 07-28-2024 Patient encounter procedure 07/28/2024 11:45 AM EST Office Visit [facility] [address] [place] [address] Tez Angel MD [address] [place] [phone] Arrived [facility] Comment on above: Arrived Start: 05-09-2024 Influenza vaccination Influenza Vacc ine (#1) [facility] Start: 02-25-2024 End: 02-25-2024 Patient encounter procedure 02/25/2024 9:30 AM EDT [facility] [address] [place] [address] Tez Angel MD [address] [place] [address] [facility] Start: 11-12-2023 End: 11-12-2023 ambulatory 11/12/2023 11:20 AM EST Visit [facility] [address] [facility] [place] [address] Zoya Peter PA [address] [facility] [place] [address] [facility] Start: 05-09-2023 Influenza vaccination Influenza Vacc ine (#1) [facility] Cytology Cervical or vaginal smear or scraping study Pap Smear Pathology and Cytology Routine Well woman exam with routine gynecological exam Ordered: 03/29/2025 [facility] Work Phone: Comment on above: Ordered: 03/29/2025 Human papilloma viru s DNA [Presence] in Unspecified specimen by Probe with amplification HPV DNA probe, amplified Microbiology Routine Well woman exam with routine gynecological exam Ordered: 03/29/2025 [facility] Comment on above: Ordered: 03/29/2025 Immunizations Immunization Date Immunization Notes Care Provider Fa cility 12-02-2021 SARS-CoV-2 mRNA (kuddiyoiqdb-qmxy-rwka ose) vaccine Alexx Gupta [facility] 01-05-2021 SARS-CoV-2 (COVID-19 ) Ad26 vaccine, recombinant Alexx [facility] 12-15-2020 SARS-CoV-2 (COVID-19 ) Ad26 vaccine, recombinant Alexx [facility] 01-22-2002 measles, mumps and rubella virus vaccine Alexx Gupta [facility] NEGATED: Highlighted row has not occurred!07-07-2023 influenza virus vaccine, unspecified formulation Alexx Gupta [facility] Payers Date Payer Category Payer Self-pay 2023 Unknown 2022 Medicaid [id number] 2022 Medicaid [id number] 1989 Unknown [id number] 2.16.84 0.1.342698.3.579.2.593 1989 Unknown [id number] 2.16.84 0.1.988420.3.579.2.593 1989 Unknown [id number] 2.16.84 0.1.308622.3.579.2.593 1989 Unknown [id number] 2.16.84 0.1.759568.3.579.2.593 1989 Unknown [id number] 2.16.84 0.1.746401.3.579.2.593 1989 Unknown [id number] 2.16.84 0.1.187446.3.579.2.593 1989 Unknown [id number] 2.16.84 0.1.025589.3.579.2.593 1989 Unknown [id number] 2.16.84 0.1.620366.3.579.2.593 1989 Unknown [id number] 2.16.84 0.1.180638.3.579.2.593 1989 Unknown [id number] 2.16.84 0.1.788959.3.579.2.593 1989 Unknown [id number] 2.16.84 0.1.589516.3.579.2.593 1989 Unknown [id number] 2.16.84 0.1.184729.3.579.2.593 1989 Unknown [id number] 2.16. 840.1.799265.3.579.2.196 1989 Unknown [id number] 2.16.8 40.1.653322.3.579.2.727 1989 Unknown [id number] 2.16.8 40.1.208377.3.579.2.727 1989 Unknown [id number] 2.16.8 40.1.487239.3.579.2.727 1989 Unknown [id number] 2.16.8 40.1.652081.3.579.2.727 1989 Unknown [id number] 2.16.8 40.1.793596.3.579.2.727 1989 Unknown [id number] 2.16.8 40.1.770688.3.579.2.727 1989 Unknown [id number] 2.16.8 40.1.153637.3.579.2.727 1989 Unknown [id number] 2.16.8 40.1.149246.3.579.2.727 1989 Unknown [id number] 2.16.8 40.1.820251.3.579.2.727 1989 Unknown [id number] 2.16.8 40.1.951500.3.579.2.727 1989 Unknown [id number] 2.16.8 40.1.329038.3.579.2.727 1989 Unknown [id number] 2.16.8 40.1.268211.3.579.2.727 1989 Unknown [id number] 2.16.8 40.1.994389.3.579.2.727 1989 Unknown [id number] 2.16.8 40.1.890420.3.579.2.727 1989 Unknown [id number] 2.16.8 40.1.497010.3.579.2.727 1989 Unknown [id number] 2.16.8 40.1.195241.3.579.2.727 1989 Unknown [id number] 2.16.8 40.1.010924.3.579.2.727 1989 Unknown [id number] 2.16.8 40.1.031836.3.579.2.727 1989 Unknown [id number] 2.16.8 40.1.269520.3.579.2.727 1989 Unknown [id number] 2.16.8 40.1.097958.3.579.2.1259 1989 Unknown [id number] 2.16.8 40.1.295673.3.579.2.9 1989 Unknown [id number] 2.16.8 40.1.196871.3.579.2.1259 1989 Unknown [id number] 2.16.84 0.1.071989.3.579.2.9 1989 Unknown [id number] 2.16.84 0.1.715466.3.579.2.1259 1989 Unknown [id number] 2.16.84 0.1.597689.3.579.2.1259 1989 Unknown [id number] 2.16.84 0.1.197360.3.579.2.1259 1989 Unknown [id number] 2.16.84 0.1.914942.3.579.2.9 1989 Unknown [id number] 2.16.84 0.1.716213.3.579.2.1259 1989 Unknown [id number] 2.16.84 0.1.626660.3.579.2.9 1989 Unknown [id number] 2.16.84 0.1.295533.3.579.2.1259 1989 Unknown [id number] 2.16.84 0.1.808575.3.579.2.1259 1989 Unknown [id number] 2.16.84 0.1.276834.3.579.2.1259 1959 Unknown [id number] 2.1 6.840.1.886593.19 Social History Date Type Detail Facility Unknown if ever smoked [facility] Start: 08-21-2023 End: 02-25-2025 Sex Assigned At [facility] Start: 02-25-2023 Tobacco smoking status Smokele ss tobacco user within last 30 days [facility] Start: 07-08-2023 End: 10-20-2023 Tobacco smoking status Never smoked tobacco (finding) [facility] Tobacco smoking status Smoker (finding) [facility] Tobacco Cigarettes [facility] Comment on above: social smoker, coupl e times per month Tobacco smoking status No Smokin g Status Entered [facility] Start: 1990 Sex Assigned At Female F [facility] Start: 08-27-2023 End: 11-12-2024 Tobacco smoking status NHIS Occasional tobacco smoker [facility] History of tobacco use Cigarette Smoker [facility] Start: 10-08-2023 End: 08-17-2024 Alcohol intake Current drinker of alcohol (finding) [facility] Start: 08-21-2023 End: 02-25-2025 History of Social function [facility] Within [...] Only a little [facility] (I/We) worried percy agrawal (my/our) food would run out before (I/we) got money to buy more. Never true [facility] Start: 02-26-2023 Tobacco Comment Patient smokes 6-10 cigarettes/day after 31- 60 minutes of waking up. [facility] Start: 02-26-2023 Alcohol Comment Caffeine: 2-3 cups/d ay [facility] Start: 02-25-2023 Gender identity Identifies as female gender (finding) [facility] Start: 09-17-2024 Tobacco smoking stat [facility] Ex-smoker [facility] Start: 09-17-2024 End: 11-12-2024 Tobacco use and exposure Smokeless tobacco non-user [facility] Start: 09-17-2024 End: 03-29-2025 Alcoholic beverage intake Ex-drinker (finding) [facility] Start: 09-17-2024 Tobacco Comment I vape semi-re gularly now and will smoke a cigarette or cigar once or twice a month [facility] Start: 09-17-2024 Alcohol Comment I have been so gennaro 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 [facility] Healthcare Goals Date Patient Goal Desired Activity /State Personal health goal Functional Status Date Assessment Result Facility 07-05-2024 Functional Status N/A [facility] 10-25-2023 Functional Status N/A [facility] 10-20-2023 Functional Status No [facility] 08-15-2023 Functional Status N/A [facility] 08-11-2023 Functional Status No [facility] 07-25-2023 Functional Status No [facility] 07-08-2023 Functional Status N/A [facility] 06-23-2023 Functional Status N/A [facility] Clinical Notes 05-31-2022 to 03-29-2025 SUZETTE Jennings - 03/29/2025 1:00 PM Uche Angel MD - 02/25/2025 9:55 AM Uche Angel MD - 02/25/2025 9:55 AM Uche Angel MD - 02/25/2025 9:55 AM SUZETTE Mora - 02/24/2025 1:30 PM EDT Note Date & Type Note Facility 03-29-2025 History of Present illness Narrative Reason for Appointment: Patient ID: Azul Allen is a 34 y.o. female who presents for Well Women Visit and Results Patient presents today for Annual Exam. MEDICATIONS Current Outpatient Medications Medication Instructions buPROPion XL (WELLBUTRIN XL) 300 mg, Oral, Daily buPROPion XL (WELLBUTRIN XL) 150 mg, Oral, Daily ejxfqsicdj-zygpmzudgoybz-uauxhwc e 50-325-40 MG tablet 1 tablet, Oral, 4 [...] not exceed 5 mg in 24 hours. ondansetron (Zofran) 4 MG/5ML solution Once pantoprazole (PROTONIX) 40 mg, Oral, Daily potassium chloride CR (K-Tab) 20 MEQ ER tablet 20 mEq, Oral, Daily PRN Qulipta 60 mg, Oral, Daily rizatriptan STENO POOL SUPERVISOR (MAXALT-STENO POOL SUPERVISOR) 10 mg, Oral, Once as needed, May [...] (BMI) of 45.0 to 49.9 in adult ([facility]) 03/21/2023 Menorrhagia 03/21/2023 Motion sickness due to anesthesia 03/21/2023 Nerve entrapment syndrome of right foot 03/21/2023 Neuritis 03/21/2023 Migraine without aura and without status migrainosus, not intractable 03/21/2023 Back pain 03/21/2023 Polycystic ovarian syndrome 03/21/2023 Plantar fasciitis 03/21/2023 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) 04/15/2018 TTS [...] Morbid obesity with BMI of 45.0-49.9, adult ([facility]) Plantar fasciitis of right foot Smoker HISTORY PAST MEDICAL HISTORY SOCIAL HISTORY Past Medical History: Diagnosis Date Calculus of gallbladder without cholecystitis without obstruction Dysmenorrhea Dyspareunia, female Edema of both legs Endometriosis MARGARETH (generalized anxiety disorder) Genital warts GERD without esophagitis Headache 2021 HGSIL on Pap smear of cervix Hypothyroidism Migraine 2020 Morbid obesity with BMI of 45.0-49.9, adult ([facility]) Plantar fasciitis of right foot Polycystic ovarian [...] abuse Father Didierer Etzwiler Bipolar disorder Father Didierer Etzwiler Depression Father Popeyeopher Etzwiler major Ulcers Father Christopher Etzwiler peptic ulcer Other (blood clots) Father Popeyeopher Etzwiler Diabetes Father Popeyeopher Etzwiler Hyperlipidemia Father Popeyeopher Etzwiler Hypertension Father Tim Etzwiler Heart disease Father Tim Etzwiler Other (Vit B12 deficiency anemia) Father Tim Etzwiler Arthritis Father Didierer Etzwiler Stroke Father Tim Etzwiler Hypertension Brother [...] COPD Paternal Grandmother Cervical cancer Paternal Grandfather Ashlie Etfarhana Hypertension Paternal Grandfather Ashlie Allen Hyperlipidemia Paternal Grandfather Ashlie Allen Diabetes Paternal Grandfather Ashlie Etzwideja Ulcers Paternal Grandfather Ashlie Antoniozporsche peptic ulcer Other (Vit b12 deficiency anemia) Paternal Grandfather Ashlie Allen Mental illness Paternal Grandfather Ashlie Allen SURGICAL HISTORY Past Surgical History: Procedure Laterality Date CHOLECYSTECTOMY ENDOMETRIAL ABLATION 03/12/2023 ENDOMETRIAL BIOPSY 03/12/2023 FOOT SURGERY Right 06/10/2019 LAPAROSCOPY DIAGNOSTIC / BIOPSY / ASPIRATION / LYSIS 10/31/2017 Diagnostic laparoscopy OTHER SURGICAL HISTORY 10/31/2017 LEAP PELVIC LAPAROSCOPY lap removal of tissue in uterus [place] COLONOSCOPY,BIOPSY 09/22/2017 Colposcopy with biopsy of cervix [...] nursing note reviewed. Exam conducted with a cash accountant present. Vitals: Estimated body mass index is 46.71 kg/m as calculated from the following: Height [...] of: SUZETTE Jennings documented in this encounter [facility] 02-25-2025 History of Present illness Narrative Associated Problem(s): Hypothyroidism Repeat labs. Associated Problem(s): Class 3 severe obesity due to excess calories with serious comorbidity and body mass index (BMI) of 45.0 to 49.9 in adult ([facility]) Problems losing weight and try tirzepatide. Discussed proper diet and regular aerobic exercise. Recommend Weight Watchers and need to limit calories and smaller portions. Need to increase activity and regular aerobic exercise several days a week for 30 minutes at a time. Associated Problem(s): Migraine without aura and without status migrainosus, not intractable Migraines significantly worse and add qulipta. Stop maxalt and try fioricet or amerge. Images from the original note were not included. Subjective Patient ID: Azul Allen is a 34 y.o. female who presents for Headache and Follow-up (Weight loss). Follow up migraines and weight. Patient not doing well today. Migraines worse and daily CADET. Severe migraine about every other week and lasts several days. Using maxalt and not helping. Throbbing pain in entire head associated with photophobia, phonophobia and nausea. On topamax daily. Weight down 7 pounds in past year but not able to lose more. Active and exercises 3-4 days a week. Tries to watch diet and eat healthy. Increased fruits and vegetables. Smaller portions and limits snacking. Tries to limit total daily calories. Interested in weight loss medication. Prior adipex and last time made depression worse. Review of Systems Respiratory: Negative for [...] (BMI) of 45.0 to 49.9 in adult ([facility]-HCC) Problems losing weight and try tirzepatide. Discussed [...] MG tablet naratriptan (Amerge) 1 MG tablet bzepaaplgk-oupucpehznxek-uzthrxl e 50-325-40 MG tablet Prediabetes Relevant Medications Tirzepatide 2.5 MG/0.5ML solution auto-injector Other Visit Diagnoses Annual physical exam Relevant Orders Hemoglobin A1c Basic metabolic panel CBC and differential Hepatic function panel Lipid panel TSH T4, free documented in this encounter [facility] 02-24-2025 History of Present illness Narrative Reason for [...] tablet 20 mEq, Oral, Daily PRN rizatriptan STENO POOL SUPERVISOR (MAXALT-STENO POOL SUPERVISOR) 10 mg, Oral, Once as needed, May [...] Morbid obesity with BMI of 45.0-49.9, adult ([facility]) 03/21/2023 Menorrhagia 03/21/2023 Motion sickness due to [...] Morbid obesity with BMI of 45.0-49.9, adult ([facility]) Plantar fasciitis of right foot Polycystic ovarian [...] Hyperlipidemia Mother Nereida Marsh Alcohol abuse Father Popyeeopher Etzwiler Bipolar disorder Father Christopher Etzwiler Depression [...] COPD Paternal Grandmother Cervical cancer Paternal Grandfather Ashlie Etzwiler Hypertension Paternal Grandfather Ashlie Etzwiler Hyperlipidemia Paternal Grandfather Ashlie Etzwiler Diabetes Paternal Grandfather Ashlie Etzwiler Ulcers Paternal Grandfather Ashlie Etzwideja peptic ulcer Other (Vit b12 deficiency anemia) Paternal Grandfather Ashlie Etzwideja Mental illness Paternal Grandfather Ashlie Etzporsche SURGICAL HISTORY Past Surgical History: Procedure Laterality Date CHOLECYSTECTOMY ENDOMETRIAL ABLATION 03/12/2023 ENDOMETRIAL BIOPSY 03/12/2023 FOOT SURGERY Right 06/10/2019 LAPAROSCOPY DIAGNOSTIC / BIOPSY / ASPIRATION / LYSIS 10/31/2017 Diagnostic laparoscopy OTHER SURGICAL HISTORY 10/31/2017 LEAP PELVIC LAPAROSCOPY lap removal of tissue in uterus [place] COLONOSCOPY,BIOPSY 09/22/2017 Colposcopy with biopsy of cervix [...] Vitals: Estimated body mass index is 47.1 kg/m as calculated from the following: Height as of 25: 5' 2 . Weight as of this encounter: 257 lb 8 oz. BP: 110/80 Patient's last menstrual period was 09/08/2023 (approximate). ASSESSMENT & PLAN ICD-10-CM 1. Postoperative follow-up Z09 Post Op Follow Up: Patient presents today for a postop follow up after having a diagnostic laparotomy performed at [facility] with Dr. Castro. Patient is doing well and all restrictions have been lifted.she is scheduled to have repeat US in March. Follow Up: Patient is to return to the office for annual exam unless needed otherwise. Documented by SUZETTE Jennings on behalf of: SUZETTE Jennings documented in this encounter [facility] 01-12-2025 History of Present illness Narrative Reason for Appointment: Patient ID: Azlu Allen is a 34 y.o. female who presents for Pre-op Visit Patient presents today for Pre Op appointment. Patient is scheduled to undergo Diagnostic Laparoscopy, possible BASIL, possible FOE, possible BSO on 02/11/[address] Castro at [facility]. MEDICATIONS Current Outpatient Medications Medication Instructions buPROPion [...] tablet 20 mEq, Oral, Daily PRN rizatriptan STENO POOL SUPERVISOR (MAXALT-STENO POOL SUPERVISOR) 10 mg, Oral, Once as needed, May [...] Morbid obesity with BMI of 45.0-49.9, adult ([facility]) 03/21/2023 Menorrhagia 03/21/2023 Motion sickness due to anesthesia 03/21/2023 Nerve entrapment syndrome of right foot 03/21/2023 Neuritis 03/21/2023 Migraine without aura and without status migrainosus, not intractable ([facility]) 03/21/2023 Back pain 03/21/2023 Polycystic [...] Difficulty walking 03/21/2023 Recurrent major depression (HCC) ([facility]) 11/12/2023 Past Medical History: Diagnosis Date Calculus of gallbladder without cholecystitis without obstruction Headache 2021 Migraine ([facility]) 2020 Plantar fasciitis of right foot Smoker HISTORY PAST MEDICAL HISTORY SOCIAL HISTORY Past Medical History: Diagnosis Date Calculus of gallbladder without cholecystitis without obstruction Dysmenorrhea Dyspareunia, female Edema of both legs Endometriosis MARGARETH (generalized anxiety disorder) ([facility]) Genital warts GERD without esophagitis Headache 2021 HGSIL on Pap smear of cervix Hypothyroidism ([facility]) Migraine ([facility]) 2020 Morbid obesity with BMI of 45.0-49.9, adult ([facility]) Plantar fasciitis of right foot Polycystic ovarian syndrome Prediabetes Recurrent major depression (HCC) ([facility]) Smoker Vitamin D deficiency Social [...] Mother Nereida Marsh Alcohol abuse Father Tim Etzwiler Bipolar disorder Father Christopher Etzwiler Depression Father Christopher Etzwiler major Ulcers Father Popeyeopher Etzwiler peptic ulcer Other (blood clots) Father Christopher Etzwiler Diabetes Father Christopher Etzwiler Hyperlipidemia Father Christopher Etzwiler Hypertension Father Christopher Etzwiler Heart disease Father Didierer Etzwiler Other (Vit B12 deficiency anemia) Father Tim Etzwiler Arthritis Father Popeyeopher Etzwiler Stroke Father [...] COPD Paternal Grandmother Cervical cancer Paternal Grandfather Ashlie Etzwideja Hypertension Paternal Grandfather Ashlie Etzwiler Hyperlipidemia Paternal Grandfather Ashlie Etzwiler Diabetes Paternal Grandfather Ashlie Etzwiler Ulcers Paternal Grandfather Ashlie Etzwideja peptic ulcer Other (Vit b12 deficiency anemia) Paternal Grandfather Ashlie Etzwideja Mental illness Paternal Grandfather Ashlie Allen SURGICAL HISTORY Past Surgical History: Procedure Laterality Date CHOLECYSTECTOMY ENDOMETRIAL ABLATION 03/12/2023 ENDOMETRIAL BIOPSY 03/12/2023 FOOT SURGERY Right 06/10/2019 LAPAROSCOPY DIAGNOSTIC / BIOPSY / ASPIRATION / LYSIS 10/31/2017 Diagnostic laparoscopy OTHER SURGICAL HISTORY 10/31/2017 LEAP PELVIC LAPAROSCOPY lap removal of tissue in uterus [place] COLONOSCOPY,BIOPSY 09/22/2017 Colposcopy with biopsy of cervix [...] nursing note reviewed. Exam conducted with a cash accountant present. Vitals: Estimated body mass index is [...] reviewed, and patient is to proceed to [facility] OR. Follow Up: Patient is to follow up between 1-2 weeks post operative to assess proper healing and recovery from procedure. Documented by Annmarie Bearden LPN on behalf of: Chay Castro DO documented in this encounter [facility] 01-03-2025 History of Present illness Narrative [...] tablet 20 mEq, Oral, Daily PRN rizatriptan STENO POOL SUPERVISOR (MAXALT-STENO POOL SUPERVISOR) 10 mg, Oral, Once as needed, May [...] right ankle 03/21/2023 MARGARETH (generalized anxiety disorder) ([facility]) 03/21/2023 GERD without esophagitis 03/21/2023 Hypothyroidism ([facility]) 03/21/2023 Mild recurrent major depression (HCC) (CMS/HCC) 03/21/2023 Morbid obesity with BMI of 45.0-49.9, adult ([facility]) 03/21/2023 Menorrhagia 03/21/2023 Motion sickness due to anesthesia 03/21/2023 Nerve entrapment syndrome of right foot 03/21/2023 Neuritis 03/21/2023 Migraine without aura and without status migrainosus, not intractable ([facility]) 03/21/2023 Back pain 03/21/2023 Polycystic [...] without cholecystitis without obstruction Headache 2021 Migraine ([facility]) 2020 Plantar fasciitis of right foot Smoker HISTORY PAST MEDICAL HISTORY SOCIAL HISTORY Past Medical History: Diagnosis Date Calculus of gallbladder without cholecystitis without obstruction Dysmenorrhea Dyspareunia, female Edema of both legs Endometriosis MARGARETH (generalized anxiety disorder) ([facility]) Genital warts GERD without esophagitis Headache 2021 HGSIL on Pap smear of cervix Hypothyroidism (CMS/HCC) Migraine (CMS/HCC) 2020 Morbid obesity with BMI of 45.0-49.9, adult ([facility]) Plantar fasciitis of right foot Polycystic ovarian syndrome Prediabetes Recurrent major depression (HCC) ([facility]) Smoker Vitamin D deficiency Social [...] Mother Nereida Marsh Alcohol abuse Father Tim Etzwiler Bipolar disorder Father Popeyeopher Etzwiler Depression Father Tim Etzwiler major Ulcers Father Tim Etzwiler peptic ulcer Other (blood clots) Father Didierer Etzwiler Diabetes Father Didierer Etzwiler Hyperlipidemia Father Didierer Etzwiler Hypertension Father Christopher [place] Heart disease Father Tim Etzwiler Other (Vit B12 deficiency anemia) Father Tim Etzwiler Arthritis Father Christophnghia Etzwiler Stroke Father Tim Etzwiler Hypertension Brother [...] COPD Paternal Grandmother Cervical cancer Paternal Grandfather Ashlie Moonwideja Hypertension Paternal Grandfather Ashlie Antoniozwideja Hyperlipidemia Paternal Grandfather Ashlie Etzwideja Diabetes Paternal Grandfather Ashlie Etzwideja Ulcers Paternal Grandfather Ashlie Allen peptic ulcer Other (Vit b12 deficiency anemia) Paternal Grandfather Ashlie Allen Mental illness Paternal Grandfather Ashlie Allen SURGICAL HISTORY Past Surgical History: Procedure Laterality Date CHOLECYSTECTOMY ENDOMETRIAL ABLATION 03/12/2023 ENDOMETRIAL BIOPSY 03/12/2023 FOOT SURGERY Right 06/10/2019 LAPAROSCOPY DIAGNOSTIC / BIOPSY / ASPIRATION / LYSIS 10/31/2017 Diagnostic laparoscopy OTHER SURGICAL HISTORY 10/31/2017 LEAP PELVIC LAPAROSCOPY lap removal of tissue in uterus [place] COLONOSCOPY,BIOPSY 09/22/2017 Colposcopy with biopsy of cervix [...] nursing note reviewed. Exam conducted with a cash accountant present. Vitals: Estimated body mass index is [...] schedule ultrasound and discuss surgical date with Plaster Whittler prior to leaving office. Documented by Marcela Reyna LPN on behalf of: Chay Castro DO documented in this encounter [facility] 10-29-2024 Evaluation + Plan note Diagnostic Tests PendingAllergens w/Total IgE Area 5 10/29/24 [facility] 09-17-2024 History of Present illness Narrative Subjective [...] Onset Arthritis Mother Nereida Marsh Hypertension Mother Nereiad Marsh Cervical cancer Mother Nereida Marsh Other [...] COPD Paternal Grandmother Cervical cancer Paternal Grandfather Ashlie Allen Hypertension Paternal Grandfather Ashlie Allen Hyperlipidemia Paternal Grandfather Ashlie Allen Diabetes Paternal Grandfather Ashlie Antoniozwideja Ulcers Paternal Grandfather Ashlie Allen peptic ulcer Other (Vit b12 deficiency anemia) Paternal Grandfather Ashlie Allen Mental illness Paternal Grandfather Ashlie Allen Active Ambulatory Problems Diagnosis Date Noted [...] Difficulty walking 03/21/2023 Recurrent major depression (HCC) ([facility]/HCC) 11/12/2023 Past Medical History: Diagnosis Date Calculus of gallbladder without cholecystitis without obstruction Headache 2021 Migraine ([facility]/HCC) 2020 Plantar fasciitis of right foot Smoker Past Surgical History: Procedure Laterality Date CHOLECYSTECTOMY ENDOMETRIAL ABLATION 03/12/2023 ENDOMETRIAL BIOPSY 03/12/2023 FOOT SURGERY Right 06/10/2019 LAPAROSCOPY DIAGNOSTIC / BIOPSY / ASPIRATION / LYSIS 10/31/2017 Diagnostic laparoscopy OTHER SURGICAL HISTORY 10/31/2017 LEAP PELVIC LAPAROSCOPY lap removal of tissue in uterus [place] COLONOSCOPY,BIOPSY 09/22/2017 Colposcopy with biopsy of cervix [...] as needed (Edema) 90 tablet 3 rizatriptan STENO POOL SUPERVISOR (Maxalt-STENO POOL SUPERVISOR) 10 MG disintegrating tablet Take 1 tablet [...] before bedtime. 60 tablet 0 [DISCONTINUED] rizatriptan STENO POOL SUPERVISOR (Maxalt-STENO POOL SUPERVISOR) 10 MG disintegrating tablet Take 1 tablet [...] tx. Check RAST documented in this encounter [facility] 08-17-2024 History of Present illness Narrative Images from the original note were not included. Patient: Azul Allen : 1990 PCP: Tez Angel MD SUBJECTIVE This is a 34 y.o. [...] both legs Endometriosis MARGARETH (generalized anxiety disorder) ([facility]/HCC) Genital warts GERD without esophagitis HGSIL on Pap smear of cervix Hypothyroidism (CMS/HCC) Morbid obesity with BMI of 45.0-49.9, adult ([facility]/HCC) Plantar fasciitis of right foot Polycystic ovarian syndrome Prediabetes Recurrent major depression (HCC) ([facility]) Smoker Vitamin D deficiency Medications: Current Outpatient [...] Rfl: 3 cholecalciferol (Vitamin D-3) 50 MCG (1999 [place]) tablet, Take 1 tablet (50 mcg) [...] (Edema), Disp: 90 tablet, Rfl: 3 rizatriptan STENO POOL SUPERVISOR (Maxalt-STENO POOL SUPERVISOR) 10 MG disintegrating tablet, Take 1 tablet [...] are palpable bilateral, no edema noted Neuro: Jackson-Génesis 5.07 monofilament intact, vibratory sensation intact Derm: [...] healing. ELIEL Person documented in this encounter [facility] 07-28-2024 History of Present illness Narrative [...] 875-125 MG tablet documented in this encounter [facility] 07-05-2024 Hospital Discharge instructions Patient Education 07/05/2024 19:13:53 Acute Bronchitis, Adult, Emdo-kt-Mebe Acute Bronchitis, Adult Acute bronchitis is when [...] condition. Follow these instructions at home: Take aiuh-dfc-ekcdimx and prescription medicines only as told by [...] cannot use soap and water, use hand snake charmer. Avoid contact with people who have cold [...] it is easier to cough up. Take brka-ccm-lqvjevv and prescription medicines only as told by your doctor. Contact a doctor if your symptoms do not improve after 2 weeks of treatment. This information is not intended to replace advice given to you by your health care provider. Make sure you discuss any questions you have with your health care provider. Document Revised: 12/26/2021 Document Reviewed: 12/26/2021 [email or web address] Patient Education 2023 [employer] Follow Up Care 07/05/2024 17:05:30 With:TEZ ANGEL Address: [address] [place], [place] [address] [id number] Business (1) When:07/08/2024 19:01:22 Comments:Call Dr for diagnosis based follow up [facility] 07-05-2024 Note ED Patient Education Note Pulmonary [...] Follow these instructions at home: ??? Take irqw-fqv-mebdoky and prescription medicines only as told by [...] cannot use soap and water, use hand snake charmer. ??? Avoid contact with people who have [...] is easier to cough up. ??? Take elad-pfx-ewgohex and prescription medicines only as told by your doctor. ??? Contact a doctor if your symptoms do not improve after 2 weeks of treatment. This information is not intended to replace advice given to you by your health care provider. Make sure you discuss any questions you have with your health care provider. Document Revised: 12/26/2021 Document Reviewed: 12/26/2021 [email or web address] Patient Education ? 2023 [employer]. [facility] 06-28-2024 Note Patient Education Infectious Disease Bacterial [...] to feel better. ? Take or apply gdga-apy-ydjaraf and prescription medicines only as told by [...] provider. Document Revised: 12/05/2021 Document Reviewed: 12/05/2021 [email or web address] Patient Education ? 2023 [employer]. Viral Respiratory Infection A viral respiratory infection [...] Follow these ins (more content not included)... [facility] 10-25-2023 Hospital Discharge instructions Follow Up Care 10/25/2023 14:17:21 With:Chay CASTRO Address: [address] , [place] [address]- Business (1) When:10/28/2023 16:39:28 With:TEZ ANGEL Address: [address] [place] [address] Business (1) When:Within 3 Day(s) [facility] 10-25-2023 Evaluation + Plan note Extrac [...] Enteric Panel by PCR 07/08/23 [facility]11-29-2023 Evaluation + Plan noteExtracted from: Title:ANES Post-operative Note - General Author: Mauricio Chang Jr., DO Date:08/06/23 Plan Transfer/Discharge: Transfer/Discharge Discharge when meets criteria ( From PACU to Ambulatory Surgery Unit, and To home ). Extracted from: Title:ANES Pre-operative Note - Adult Author:Mauricio Guerrero Jr., DO Date:08/06/23 Plan [employer]esthesiologists (ASA) physical status classification: Class IV. Anesthetic Preoperative Plan: Anesthesia General. Future Appointments Appointment Date:08/11/2023 01:30:00 PM Scheduled Provider:Glenn Gupta MD [facility] Type:Cardiology New Patient (FT) Appointment Date:08/15/2023 09:20:00 AM Scheduled Provider:Alexx Gupta MD Location:[facility] Appointment Type: Post Op 15 Future Scheduled Tests Laboratory* Fecal WBC Lactoferrin 07/08/23 * Giardia lamblia, Direct Detection EIA 07/08/23 * O & P Exam, Routine 07/08/23 * Clostridium Difficile PCR 07/08/23 * Enteric Panel by PCR 07/08/23 [facility]11-29-2023 Hospital Discharge instructions Patient Education 08/06/2023 [...] Follow these instructions at home: Medicines Take nfbg-nox-gbgiphu and prescription medicines only as told by [...] to keep your urine pale yellow. ?Take hdlh-yzp-itmmxlb or prescription medicines. ?Eat foods that are [...] and water are not available, use hand snake charmer. ?Change your dressing as told by your [...] provider. Document Revised: 02/26/2022 Document Reviewed: 02/26/2022 [email or web address] Patient Education 2022 [employer]. Follow Up Care 07/21/2023 15:18:13 With:Alexx Gupta Address: [place], [address] [phone] Business (1) When: Unknown Comments:Appointment has already been scheduled [facility]11-29-2023 NoteHistory and Physical Update H&P Reviewed. [...] Brother. Hypertension: Mother, Father and Brother. TIA: Mother.[facility]11-20-2023 Note [id number] Discharge instructions Patient [...] ?Hypothyroidism. ?Polycystic ovarian syndrome (PCOS). ?Binge-eating disorder. ?[place] syndrome. Taking certain medicines, such as steroids, [...] and how much exercise you get. Take wxwv-bmt-fheuebt and prescription medicines only as told by [...] provider. Document Revised: 04/02/2022 Document Reviewed: 04/02/2022 [email or web address] Patient Education 2022 [employer]. [facility] [place] 10-31-2023 Hospital Discharge [...] water added (diluted fruit juice). Eat bland, vpci-ut-woieah foods in small amounts as you are able. These foods include bananas, applesauce, rice, lean meats, toast, and crackers. Avoid drinking fluids that contain a lot of sugar or caffeine, such as energy drinks, sports drinks, and soda. Avoid alcohol. Avoid spicy or fatty foods. General instructions Take heeb-zfx-fktkdku and prescription medicines only as told by your health care provider. Rest at home while you recover. Drink enough fluid to keep your urine pale yellow. Breathe slowly and deeply when you feel nauseous. Avoid smelling things that have strong odors. Wash your hands often using soap and water for at least 20 seconds. If soap and water are not available, use hand snake charmer. Make sure that everyone in your household [...] recommendations for eating and drinking and take dplv-mcg-tmnphpi and prescription medicinesonly as told by your [...] provider. Document Revised: 03/01/2022 Document Reviewed: 03/01/2022 [email or web address] Patient Education 2022 [employer]. Follow Up Care 06/25/2023 15:34:03 With:Melissa Nunez CNP Address: When:1 to 2 weeks Comments:Following EGD/Colonoscopy. [facility] 10-31-2023 Evaluation + Plan note Future Scheduled Tests Laboratory* Fecal WBC Lactoferrin 07/08/23 * Giardia lamblia, Direct Detection EIA 07/08/23 * O & P Exam, Routine 07/08/23 * Clostridium Difficile PCR 07/08/23 * Enteric Panel by PCR 07/08/23 Radiology* US Gallbladder 07/08/23 [facility] 10-31-2023 Evaluation + Plan note Future Scheduled Tests Laboratory* Fecal WBC Lactoferrin 07/08/23 * Giardia lamblia, Direct Detection EIA 07/08/23 * O & P Exam, Routine 07/08/23 * Clostridium Difficile PCR 07/08/23 * Enteric Panel by PCR 07/08/23 [facility]10-16-2023 Hospital Discharge instructions Patient Education 06/23/2023 [...] medicines. These include steroids, antibiotics, and some rltg-tjg-wkhtykz medicines, such as aspirin or ibuprofen. Having [...] Follow these instructions at home: Medicines Take xxsx-ord-ntqatch and prescription medicines only as told by [...] provider. Document Revised: 12/29/2021 Document Reviewed: 12/29/2021 [email or web address] Patient Education 2022 [employer]. Follow Up Care 06/23/2023 09:20:57 With:Michael Patino Address: [address] [place], [place] [address]dict Kapil, [facility] [address] [phone] Business (1) When:06/26/2023 12:35:39 With:TEZ ANGEL Address: [address] [place] [address] Business (1) When:06/26/2023 12:35:32 [facility]10-16-2023 Evaluation + Plan noteExtracted from: Title:ED [...] Reflex XR Chest Single View [facility]04-02-2023 NotePROCEDURE: US PELVIS AND TRANSVAG, 12/06/2022 [...] Electronically authenticated by: MEGAN HINOJOSA Date: 2022-12-08 11:58[facility]02-14-2023 NoteCONSULTATION CONSULTATION DATE: 10/22/2022 CHIEF COMPLAINT: [...] stopped the steroids for approximately a month.[facility] [id number] Evaluation note* Encounter Date Diagnosis Assessment Notes [...] no improvement in 2 to 3 days [employer] Other 11-15-2022 NoteCONSULTATION CONSULTATION DATE: 07/23/2022 CHIEF [...] like to proceed. CC: Tez Angel M.D.[facility] [id number] NoteCONSULTATION PROCEDURE DATE: 07/23/2022 PREOPERATIVE DIAGNOSIS: Scar [...] will be followed up in the office.[facility] 06-27-2022 History general Narrative - Reported* Type Description Date Medical History ANXIETY AND DEPRESSION Medical History GERD Medical History RIGHT FOOT PAIN Surgical History LEP PROCEDURE 2018 Surgical History LAPROSCOPY PROCEDURE 2018 Surgical History MULTIPLE SURGERIES 06/2019 [employer] Other 09-27-2022 NoteCONSULTATION CONSULTATION DATE: 06/04/2022 CHIEF [...] in the office subsequent to authorization. [facility] [id number] Evaluation note* Encounter Date Diagnosis Assessment Notes [...] understanding and is agreeable to treatment plan [employer] Other Evaluation + Plan note Future Appointments Appointment Date:07/08/2023 02:00:00 PM Scheduled Provider:Melissa Nunez CNP Location:[facility] App[facility]ment [facility] Follow Up [facility] [place] Evaluation + Plan note Future Appointments Appointment Date:07/21/2023 02:40:00 PM Scheduled Provider:Alexx Gupta MD Location:[facility] Appointment Type: New 30 Future Scheduled Tests Laboratory* Fecal WBC Lactoferrin 07/08/23 * Giardia lamblia, Direct Detection EIA 07/08/23 * O & P Exam, Routine 07/08/23 * Clostridium Difficile PCR 07/08/23 * Enteric Panel by PCR 07/08/23 [facility] Future Appointments Appointment Date:2023 07:00:00 AM Scheduled Provider: [facility] Type:CT Sinus/Orbits/Maxillofacial (FT) Appointment Date:07/25/2023 09:30:00 AM Scheduled Provider: Location:[facility] Appointment Type:Surgical PAT FT Appointment Date:08/06/2023 01:00:00 PM Scheduled Provider: Location:[facility] Appointment Type:Surgery FT Appointment Date:08/11/2023 01:30:00 PM Scheduled Provider:Glenn Gputa MD [facility] Type:Cardiology New Patient (FT) Appointment Date:08/15/2023 09:20:00 AM Scheduled Provider:Alexx Gupta MD Location:[facility] Appointment Type: Post Op 15 Future Scheduled Tests Laboratory* Fecal WBC Lactoferrin 07/08/23 * Giardia lamblia, Direct Detection EIA 07/08/23 * O & P Exam, Routine 07/08/23 * Clostridium Difficile PCR 07/08/23 * Enteric Panel by PCR 07/08/23 Radiology* CT Maxillofacial w/o Contrast 07/24/23 [facility] [place] Evaluation + Plan note Future Appointments Appointment Date:07/25/2023 09:30:00 AM Scheduled Provider: Location:[facility] Appointment Type:Surgical PAT FT Appointment Date:08/06/2023 01:00:00 PM Scheduled Provider: Location:[facility] Appointment Type:Surgery FT Appointment Date:08/11/2023 01:30:00 PM Scheduled Provider:Glenn Gupta MD [facility] Type:Cardiology New Patient (FT) Appointment Date:08/15/2023 09:20:00 AM Scheduled Provider:Alexx Gupta MD Location:[facility] Appointment Type: Post Op 15 Future Scheduled Tests Laboratory* Fecal WBC Lactoferrin 07/08/23 * Giardia lamblia, Direct Detection EIA 07/08/23 * O & P Exam, Routine 07/08/23 * Clostridium Difficile PCR 07/08/23 * Enteric Panel by PCR 07/08/23 [facility] Future Appointments Appointment Date:08/06/2023 01:00:00 PM Scheduled Provider: Location:[facility] Appointment Type:Surgery FT Appointment Date:08/11/2023 01:30:00 PM Scheduled Provider:Glenn Gupta MD [facility] Type:Cardiology New Patient (FT) Appointment Date:08/15/2023 09:20:00 AM Scheduled Provider:Alexx Gupta MD Location:[facility] Appointment Type: Post Op 15 Future Scheduled Tests Laboratory* Fecal WBC Lactoferrin 07/08/23 * Giardia lamblia, Direct Detection EIA 07/08/23 * O & P Exam, Routine 07/08/23 * Clostridium Difficile PCR 07/08/23 * Enteric Panel by PCR 07/08/23 [facility] Future Appointments Appointment Date:08/15/2023 09:20:00 AM Scheduled Provider:Alexx Gupta MD Location:[facility] Appointment Type: Post Op 15 Appointment Date:10/20/2023 03:45:00 PM Scheduled Provider:Glenn Gupta MD [facility] Type:Cardiology Follow Up (FT) Future Scheduled Tests Laboratory* Fecal WBC Lactoferrin 07/08/23 * Giardia lamblia, Direct Detection EIA 07/08/23 * O & P Exam, Routine 07/08/23 * Clostridium Difficile PCR 07/08/23 * Enteric Panel by PCR 07/08/23 Radiology* EC Stress Echo Complete w/ Contrast 08/11/23 [facility] Future Appointments Appointment Date:08/15/2023 09:20:00 AM Scheduled Provider:Alexx Gupta MD Location:[facility] Appointment Type:[facility] 15 Appointment Date:10/20/2023 03:45:00 PM Scheduled Provider:Glenn Gupta MD [facility] Type:Cardiology Follow Up (FT) Future Scheduled Tests Laboratory* Fecal WBC Lactoferrin 07/08/23 * Giardia lamblia, Direct Detection EIA 07/08/23 * O & P Exam, Routine 07/08/23 * Clostridium Difficile PCR 07/08/23 * Enteric Panel by PCR 07/08/23 Radiology* EC Stress Echo Complete w/ Contrast 08/11/23 [facility] Evaluation + Plan note Future Appointments Appointment Date:10/20/2023 03:45:00 PM Scheduled Provider:Glenn Gupta MD [facility] Type:Cardiology Follow Up (FT) Future Scheduled Tests Laboratory* Fecal WBC Lactoferrin 07/08/23 * Giardia lamblia, Direct Detection EIA 07/08/23 * O & P Exam, Routine 07/08/23 * Clostridium Difficile PCR 07/08/23 * Enteric Panel by PCR 07/08/23 Radiology* EC Stress Echo Complete w/ Contrast 08/11/23 [facility] Evaluation + Plan note Future Appointments Appointment Date:10/20/2023 03:45:00 PM Scheduled Provider:Glenn Gupta MD [facility] Type:Cardiology Follow Up (FT) Future Scheduled Tests Laboratory* Fecal WBC Lactoferrin 07/08/23 * Giardia lamblia, Direct Detection EIA 07/08/23 * O & P Exam, Routine 07/08/23 * Clostridium Difficile PCR 07/08/23 * Enteric Panel by PCR 07/08/23 [facility] noteNo assessment information available [facility] Work Phone: Evaluation note* Diagnosis Mild [...] esophagitis Esophageal reflux MARGARETH (generalized anxiety disorder) (CMS/HCC) Generalized anxiety disorder documented in this encounter [...] Morbid obesity with BMI of 45.0-49.9, adult ([facility]) SOB (shortness of breath) Shortness of breath Ocular migraine ([facility]) Variants of migraine, not elsewhere classified, without mention of intractable migraine without mention of status migrainosus Mild recurrent major depression (HCC) ([facility])- Primary Major depressive disorder, recurrent episode, mild MARGARETH (generalized anxiety disorder) ([facility]) Generalized anxiety disorder Migraine without aura and without status migrainosus, not intractable ([facility]) Edema of both legs Edema GERD without esophagitis Esophageal reflux Chronic rhinosinusitis- Primary Unspecified sinusitis (chronic) Pre-op examination Pelvic pain in female Unspecified symptom associated with female genital organs H/O: hysterectomy Acquired absence of both cervix and uterus [facility] Diagnosis Mild recurrent major depression- Primary Major depressive disorder, recurrent episode, mild MARGARETH (generalized anxiety disorder) Generalized anxiety disorder Ocular migraine Variants of migraine, not elsewhere classified, without mention of intractable migraine without mention of status migrainosus Edema of both legs Edema GERD without esophagitis Esophageal reflux Edema of both legs- Primary Edema Morbid obesity with BMI of 45.0-49.9, adult ([facility]) SOB (shortness of breath) Shortness of breath Ocular migraine Variants of migraine, not elsewhere classified, without mention of intractable migraine without mention of status migrainosus Mild recurrent major depression- Primary Major depressive disorder, recurrent episode, mild MARGARETH (generalized anxiety disorder) Generalized anxiety disorder Migraine without aura and without status migrainosus, not intractable Edema of both legs Edema GERD without esophagitis Esophageal reflux Chronic rhinosinusitis- Primary Unspecified sinusitis (chronic) Postoperative follow-up Follow-up examination, following unspecified surgery [facility] Diagnosis Mild recurrent major depression- Primary Major depressive disorder, recurrent episode, mild MARGARETH (generalized anxiety disorder) Generalized anxiety disorder Ocular migraine Variants of migraine, not elsewhere classified, without mention of intractable migraine without mention of status migrainosus Edema of both legs Edema GERD without esophagitis Esophageal reflux Edema of both legs- Primary Edema Morbid obesity with BMI of 45.0-49.9, adult ([facility]) SOB (shortness of breath) Shortness of breath Ocular migraine Variants of migraine, not elsewhere classified, without mention of intractable migraine without mention of status migrainosus Mild recurrent major depression- Primary Major depressive disorder, recurrent episode, mild MARGARETH (generalized anxiety disorder) Generalized anxiety disorder Migraine without aura and without status migrainosus, not intractable Edema of both legs Edema GERD without esophagitis Esophageal reflux Chronic rhinosinusitis- Primary Unspecified sinusitis (chronic) Migraine without aura and without status migrainosus, not intractable- Primary Hypothyroidism, unspecified type Class 3 severe obesity due to excess calories with serious comorbidity and body mass index (BMI) of 45.0 to 49.9 in adult ([facility]) Annual physical exam Routine general medical examination at a health care facility Prediabetes Other abnormal glucose documented in this encounter [facility]* Diagnosis Mild recurrent major depression- Primary Major depressive disorder, recurrent episode, mild MARGARETH (generalized anxiety disorder) Generalized anxiety disorder Ocular migraine Variants of migraine, not elsewhere classified, without mention of intractable migraine without mention of status migrainosus Edema of both legs Edema GERD without esophagitis Esophageal reflux Edema of both legs- Primary Edema Morbid obesity with BMI of 45.0-49.9, adult ([facility]) SOB (shortness of breath) Shortness of breath Ocular migraine Variants of migraine, not elsewhere classified, without mention of intractable migraine without mention of status migrainosus Mild recurrent major depression- Primary Major depressive disorder, recurrent episode, mild MARGARETH (generalized anxiety disorder) Generalized anxiety disorder Migraine without aura and without status migrainosus, not intractable Edema of both legs Edema GERD without esophagitis Esophageal reflux Chronic rhinosinusitis- Primary Unspecified sinusitis (chronic) Migraine without aura and without status migrainosus, not intractable- Primary Hypothyroidism, unspecified type Class 3 severe obesity due to excess calories with serious comorbidity and body mass index (BMI) of 45.0 to 49.9 in adult ([facility]) Annual physical exam Routine general medical examination at a health care facility Prediabetes Other abnormal glucose Ocular migraine Variants of migraine, not elsewhere classified, without mention of intractable migraine without mention of status migrainosus documented in this encounter [facility] HealthcareEvaluation note* Diagnosis Mild recurrent major depression- Primary Major depressive disorder, recurrent episode, mild MARGARETH (generalized anxiety disorder) Generalized anxiety disorder Ocular migraine Variants of migraine, not elsewhere classified, without mention of intractable migraine without mention of status migrainosus Edema of both legs Edema GERD without esophagitis Esophageal reflux Edema of both legs- Primary Edema Morbid obesity with BMI of 45.0-49.9, adult ([facility]) SOB (shortness of breath) Shortness of breath Ocular migraine Variants of migraine, not elsewhere classified, without mention of intractable migraine without mention of status migrainosus Mild recurrent major depression- Primary Major depressive disorder, recurrent episode, mild MARGARETH (generalized anxiety disorder) Generalized anxiety disorder Migraine without aura and without status migrainosus, not intractable Edema of both legs Edema GERD without esophagitis Esophageal reflux Chronic rhinosinusitis- Primary Unspecified sinusitis (chronic) Migraine without aura and without status migrainosus, not intractable- Primary Hypothyroidism, unspecified type Class 3 severe obesity due to excess calories with serious comorbidity and body mass index (BMI) of 45.0 to 49.9 in adult ([facility]) Annual physical exam Routine general medical examination at a health care facility Prediabetes Other abnormal glucose Well woman exam with routine gynecological exam Routine gynecological examination Encounter to discuss test results Other specified counseling documented in this encounter [facility] N[facility]ative - Reported* Type Description Date Medical History ANXIETY AND DEPRESSION Medical History GERD Medical History RIGHT FOOT PAIN Surgical History LEP PROCEDURE 2018 Surgical History LAPROSCOPY PROCEDURE 2018 Surgical History MULTIPLE SURGERIES 06/2019 [facility] Other Hospital course Narrative No data available for this section [facility] No data available for this section [facility] General Surgery Imbler Progress note No data available for this section [facility] Summary Purpose Family History No Family [...] section and content) DATE CREATED AUTHOR 08/17/2018 [facility] DATE CREATED AUTHOR AUTHOR'S ORGANIZ ATION 01/16/2023 [facility] DATE CREATED AUTHOR AUTHOR'S ORGANIZ ATION 10/28/2023 [facility] DATE CREATED AUTHOR AUTHOR'S ORGANIZ ATION 11/29/2023 [facility] DATE CREATED AUTHOR AUTHOR'S ORGANIZ ATION 07/06/2024 [facility] DATE CREATED AUTHOR AUTHOR'S ORGANIZ ATION 07/07/2024 [facility] DATE CREATED AUTHOR AUTHOR'S ORGANIZ ATION 10/31/2024 [facility] DATE CREATED AUTHOR AUTHOR'S ORGANIZ ATION 11/04/2024 [facility] DATE CREATED AUTHOR AUTHOR'S ORGANIZ ATION 03/20/2025 [facility] EPIC REASON FOR VISIT (unrecogniz ed section and content) Reason Onset Date Comments Med Refill 10/22/2023 Reason Onset Date Comments Med Refill 07/28/2024 Reason Comments Follow-up Er f/up crandall william , sinus infection Reason Comments Toe Pain RT 4th digit toe ryan n Reason Comments Rhinosinusitis Specialty Diagnoses / Procedures Referred By Contac t Referred To Contact Otolaryngology Diagnoses Chronic rhinosinusitis Procedures [place] OFFICE/OUTPATIENT [facility] Tez Angel MD [address] [place] [address] Phone: tel: fax: Sarahy Burns MD [address] [facility] [address] [place] [address] Phone: tel: fax: Referral ID Status Reason Start Date Expiration Date V isits Requested Visits Authorized [id number] Closed Specialty Services Required 09/02/2024 03/01/2025 1 1 Reason Onset Date Comments Med Refill 11/02/2024 Reason Onset Date Comments Med Refill 12/27/2024 Reason Comments Pelvic Pain Reason Comments Pre-op Visit Reason Comments Post-op Visit Reason Comments Headache Follow-up Weight loss Reason Onset Date Comments Med Refill 02/28/2025 Reason Comments Well Women Visit Results Patient Care team informatio n (unrecognized section and content) Team Status: Active Member Role Status Dates Tez Angel MD Primary Care Provider Active Team Status: Inactive Member Role Status Dates Tez Angel MD Primary Care Provider Active S tart: October 01, 2023 End: October 01, 2023 Chay Castro Attending Provider Active Start: Cm cameron 2023 End: October 01, 2023 Poultry Killer Relationship Specialty Start Date End Date Tez Angel MD PCP - General Family Medicine 02/26/23 Poultry Killer Relationship Specialty Start Date End Date Tez Angel MD [address] [place] [address] PCP - General Family Medicine 01/27/24 Suzan Carrington, BANQUET STEWARDESS [address] [address] PCP - N[facility]aitlin Bolaños [facility] 12/08/23 Poultry Killer Relationship Specialty Start Date End Date Tez Angel MD [address] [place] [address] PCP - General Family Medicine 01/27/24 Suzan Carrington, BANQUET STEWARDESS [address] [facility] [address] [place] [address] PCP - SYEDA Bolaños [facility] 12/08/23 Poultry Killer Relationship Specialty Start Date End Date Tez Angel MD [address] [place] [address] PCP - General Family Medicine 01/27/24 Suzan Carrington, BANQUET STEWARDESS [address] [facility] [address] [place] [address] PCP - [facility] [place] [facility] 12/08/23 Poultry Killer Relationship Specialty Start Date End Date Tez Angel MD [address] [place] [phone] PCP - General Family Medicine 01/27/24 Suzan Carrington, BANQUET STEWARDESS [address] [facility] [address] [place] [address] PCP - [facility] [place] [facility] 12/08/23 Poultry Killer Relationship Specialty Start Date End Date Tez Angel MD [address] [place] [address] PCP - General Family Medicine 01/27/24 Suzan Carrington, BANQUET STEWARDESS [address] [facility] [address] [place] [address] PCP - [facility] [place] [facility] 12/08/23 Poultry Killer Relationship Specialty Start Date End Date Tez Angel MD [address] [place] [address] PCP - General Family Medicine 01/27/24 Suzan Carrington, BANQUET STEWARDESS [address] [facility] [address] [place] [address] PCP - [facility] [place] [facility] 12/08/23 Poultry Killer Relationship Specialty Start Date End Date Tez Angel MD [address] [place] [phone] PCP - General Family Medicine 01/27/24 Suzan Carrington, BANQUET STEWARDESS [address] [facility] [address] [place] [address] PCP - [facility] [place] [facility] 12/08/23 Poultry Killer Relationship Specialty Start Date End Date Tez Angel MD [address] [place] [address] PCP - General Family Medicine 01/27/24 Suzan Carrington, BANQUET STEWARDESS [address] [facility] [address] [place] [address] PCP - [facility] [place] [facility] 12/08/23 Poultry Killer Relationship Specialty Start Date End Date Tez Angel MD [address] [place] [address] PCP - General Family Medicine 01/27/24 Suzan Carrington, BANQUET STEWARDESS [address] [facility] [address] [place] [address] PCP - [facility] [place] [facility] 12/08/23 Poultry Killer Relationship Specialty Start Date End Date Tez Angel MD [address] [place] [phone] PCP - General Family Medicine 01/27/24 Suzan Carrington, BANQUET STEWARDESS [address] [facility] [address] [place] [address] PCP - [facility] [place] [facility] 12/08/23 Poultry Killer Relationship Specialty Start Date End Date Tez Angel MD [address] [place] [address] PCP - General Family Medicine 01/27/24 Suzan Carrington, BANQUET STEWARDESS [address] [facility] [address] [place] [address] PCP - [facility] [place] [facility] 12/08/23 Poultry Killer Relationship Specialty Start Date End Date Tez Angel MD [address] [place] [phone] PCP - General Family Medicine 01/27/24 Suzan Carrington, BANQUET STEWARDESS [address] [facility] [address] [place] [address] PCP - [facility] [facility] 12/08/23 Poultry Killer Relationship Specialty Start Date End Date Tez Angel MD [address] [place] [phone] PCP - General Family Medicine 01/27/24 Suzan Carrington, BANQUET STEWARDESS [address] [facility] [address] [place] [address] PCP - [facility] [place] [facility] 12/08/23 Poultry Killer Relationship Specialty Start Date End Date Tez Angel MD [address] [place] [address] PCP - General Family Medicine 01/27/24 Suzan Carrington, BANQUET STEWARDESS [address] [facility] [address] [place] [address] PCP - [facility] [place] 12/08/23 Poultry Killer Relationship Specialty Start Date End Date Tez Angel MD [address] [place] [address] PCP - General Family Medicine 01/27/24 Suzan Carrington BANQUET STEWARDESS [address] [place] [address] PCP - [facility] 12/08/23 Poultry Killer Relationship Specialty Start Date End Date Tez Angel MD [address] [place] [phone] PCP - General [facility] 01/27/24 Suzan Carrington BANQUET STEWARDESS [address] [place] [address] PCP - NOMCaitlin Bolaños [facility] 12/08/23 Poultry Killer Relationship Specialty Start Date End Date Tez Angel MD [address] [place] [address] PCP - General Family [facility] 01/27/24 Suzan Carrington BANQUET STEWARDESS [address] [place] [address] PCP - [facility] [place] [facility] 12/08/23 Goals (unrecognized section and content) Goals [...] BE BASED ON THE PRIMARY CLINICAL RECORDS. [facility] [employer] [facility]. provides no warranty or guarantee of the accuracy or completeness of information in this document.
--- OUTSIDE RECORDS SUMMARY | 2025-03-29 22:33 | XMS_ITS | Encounter Summary ---
Author Organization [facility] Address [address] [place] [address] Care Team Providers Care Manager Financial Systems Name Role Phone Tez Angel MD Primary Care Provider [phone] Suzan Carrington AD OPERATIONS COORDINATOR Unavailable [phone] Encounter Details Date Type Department Care Team (Late st Contact Info) Description 03/01/2024 Clinisync Result Encounter [facility] External Department Unsolicited Tez Angel MD [address] [place] [address] Social History Tobacco Use Types Packs/Day Years [...] How often do you attend chur or rastafarian services? Never 08/21/2023 Do you belong to [...] medical care, and heating? Patient declined [facility]20[facility] Answer Date [...] place to sleep or slept in a assisted (including now)? No 08/21/2023 Comments No Sex [...] Visit [facility] [address] [place] [address] Tez Angel MD [address] [place] [address] documented as of this encounter Goals Goal [...] PM EDT Narrative 03/01/2024 7:33 PM EDT [address] [address] Cardiology Report Signed Patient: AZUL SARKAR MR#: [id number] : 1990 Acct:[id number] Age/Sex: 33 / F ADM Date: 03/01/24 Loc: CARD Attending Dr: Tez Angel M.D. Ordering Physician: Tez Angel M.D. Date of Service: 03/01/24 Procedure(s): CA echo doppler complete Accession Number(s): [id number] cc: Tez Angel M.D. Patient Name: AZUL SARKAR MR#: [id number] : 1990 Exam Date: 03/01/2024 Ordering Doctor: [...] MCMAHAN Signed By: 03/01/241932 DD/ 31 TD/TT: Ball Racker: Procedure Note Radiology, Radiologist, MD - 03/01/2024 [place] [address] Cardiology Report Signed Patient: AZUL SARKAR MMR#: [id number] : 1990Acct:[id number] Age/Sex: 33 / FADM Date: 03/01/24 Loc: CARD Attending Dr: Tez Angel M.D. Ordering Physician: Tez Angel M.D. Date of Service: 03/01/24 Procedure(s): CA echo doppler complete Accession Number(s): [id number] cc: Tez Angel M.D. Patient Name: AZUL SARKAR MR#: [id number] : 1990 Exam Date: 03/01/2024 Ordering Doctor: [...] ASHLIE MCMAHAN Signed By:03/01/241932 DD/ 31 TD/TT: Ball Racker: Tez Angel MD [facility] Final Result documented in this encounter Visit Diagnoses Not on filedocumented in this encounter Additional Health Concerns Active Problems Noted Date Diagnosed Date Patient on antidepressant monitoring plan 2023 Baseline PHQ-9 10/22/2023 documented as of this encounter Care Teams Manager Financial Systems Relationship Specialty Start Date End Date Tez Angel MD [address] [place] [address] PCP - General Family Medicine 01/27/24 Suzan Carrington NP [address] [facility] [address] [place] [address] PCP - SYEDA Bolaños [facility] 12/08/23 documented as of this encounter
--- OUTSIDE RECORDS SUMMARY | 2025-03-29 22:33 | XMS_ITS | Encounter Summary ---
Author Organization [facility] Address [address] [facility] [place] [address] Care Team Providers Care Electronic Intelligence Officer Name Role Phone Tez Zaragoza MD Primary Care Provider [phone] Tez Zaragoza MD Primary Care Provider [phone] Tez Zaragoza MD Primary Care Provider [phone] Suzan Carrington HOSE TUBING BACKER Unavailable Encounter Details Date Type Department Care Team (Late st Contact Info) Description 03/24/2023 Abstract [facility] [address] [place] [address] Zoya Peter PA [address] [facility] [address] [place], [place] [id number] Social History Tobacco Use Types Packs/Day Years [...] EDT Office Visit [facility] [address] [place] [address] Tez Zaragoza MD [address] [place] [address] documented as of this encounter Visit Diagnoses Not on filedocumented in this encounter Care Teams Electronic Intelligence Officer Relationship Specialty Start Date End Date Tez Zaragoza MD PCP - General Family Medicine 02/26/23 11/11/23 Tez Zaragoza MD PCP - General Family Medicine 11/12/23 01/26/24 Tez Zaragoza MD [address] [place] [address] PCP - General Family Medicine 01/27/24 Suzan Carrington, HOSE TUBING BACKER [address] [facility] [address] [place] [address] PCP - [facility] TALENT DEVELOPMENT SPECIALIST 12/08/23 documented as of this encounter
[2025-04-01 15:09] LABS: Age Gdln ACOG Testing Note (.); IGP, Aptima HPV, rfx 16/18,45 Note (.)
== END 2025-03-29 22:27 | disposition home or self-care (01) ==
LOC: LAB 22:26
PROVIDERS: PCP Family Medicine; Visit Provider Physician Assistant
DX: Z01.419 Encounter for gynecological examination (general) (routine) without abnormal findings (principal)
CPT/HCPCS: 87624; 88175